=== PATIENT | female | born 1955 | race Caucasian/White ===

== ENCOUNTER 2017-09-07 16:58 | Emergency (ER) | payer MEDICARE, SELFPAY ==
[2017-09-07 16:59] VITALS: BP 137/86; PULSE 82; RESP 17; TEMP 36.4; O2SAT 94; BMI 21.7
--- NOTE | 2017-09-07 17:30 | CT_ITS ---
STUDY: CT ABDOMEN AND PELVIS WITH CONTRAST REASON FOR EXAM: Female, 62 years old. Right lower quadrant pain after lunch RADIATION DOSAGE (If Supplied By Facility): CTDIvol = ( 10.61 ) mGy, DLP = ( 365.23 ) mGycm TECHNIQUE: Transaxial images were obtained from the dome of the diaphragm to the symphysis pubis with oral contrast. 100 ml of Isovue 300 contrast was administered. Sagittal and coronal images were reconstructed. Individualized dose optimization techniques were used for this CT. COMPARISON: None. FINDINGS: The visualized lung bases are unremarkable. The visualized portions of the heart are within normal limits. Small nonenhancing cysts in the right lobe of the liver medially measuring 1.7 cm. Normal gallbladder and extrahepatic biliary system. Normal spleen. Normal pancreas. Normal bilateral adrenal glands. Normal right kidney. Normal left kidney. Normal visualized stomach. Normal small intestine. Normal colon. The appendix is visualized and appears normal. Normal abdominal aorta. Normal inferior vena cava. Normal retroperitoneum. Normal urinary bladder. Normal visualized uterus. Normal abdominal wall. There are diffuse degenerative changes of the visualized lumbar spine. CT/Abdomen/Pelvis WITH Contrast IMPRESSION: No acute findings. Normal appendix Electronically Signed: John Healy DO at 20:03 EDT Tel , Service support ,
--- NOTE | 2017-09-07 17:32 | ED.VISSUMM ---
- ER Visit Summary Date of Service: 09/07/17 Chief Complaint: Abdominal pain History of Present Illness: The patient is a 62 F presenting with right lower quadrant abdominal pain. Patient states this started earlier today and worsened throughout the day. She has had nausea with no vomiting. She has had diarrhea. She denies fever. She has had decreased appetite today. She states she has had remote similar complaints with ovarian cyst. Denies other complaints. Physical Examination: Vitals are stable. Patient is afebrile. Alert no acute distress. HEENT exam is unremarkable. Neck is supple. Lungs are clear and equal bilaterally. Heart is regular rate and rhythm. Abdomen is soft right lower quadrant tenderness with no rebound or guarding. Extremities are unremarkable. Skin is warm and dry. No focal neurologic deficit. Remainder of exam is unremarkable. Emergency Department Course and Treatment: Patient is given Dilaudid, Zofran with improvement. CBC, chemistries unremarkable. Liver lipase are normal. CT abdomen pelvis shows no acute process, normal appendix. Patient is resting comfortably in the emergency department. She is given a prescription for Bentyl. She is advised to follow-up with her primary care physician. She is advised return to ED for worsening complaints. Disposition: Discharge home Impression: Abdominal pain This note was generated with [employer] dictation software. It may contain incorrect words, spelling, and punctuation that were not noted in review of the chart prior to signing ED Disposition - Plan for ED Patient: Chief Complaint: Abd Pain Referrals: Danae Patel [NON-STAFF] -
[2017-09-07 17:48] LABS: Absolute Lymphocyte Count 1.92 X10^3/ul (0.83-4.51); Basophil# 0.04 X10^3/uL; Basophil% 0.7 % (0-1); Eosinophil# 0.12 X10^3/uL; Eosinophils% 2.2 % (0-5); Hematocrit 44.9 % (37-47); Hemoglobin 14.9 g/dl (12.0-15.0); Lymphocyte # 1.92 X10^3/ul (4.0); Mean Corp Hgb Conc 33.2 g/gl (32-36); Mean Corpuscular Hgb 30.2 pg (27.0-32.0); Mean Corpuscular Volume 90.9 fL (81-99); Mean Platelet Vol. 9.1 fl (6.2-12.0); Monocyte# 0.29 X10^3/uL; Monocyte% 5.4 % (0-10); Neutrophil # 2.97 X10^3/uL (2.7-7.7); Neutrophil % 55.7 % (47-70); POSITIVE COUNT NO; POSITIVE DIFFERENTIAL NO; POSITIVE MORPHOLOGY NO; Platelet Count 210 K/mm3 (150-450); RBC Distribution Width CV 13.5 % (11.6-14.6); RBC Distribution Width SD 44.6 fl (35.1-43.9); Red Blood Count 4.94 M/mm3 (4.2-5.4); White Blood Count 5.3 K/mm3 (4.4-11.0)
[2017-09-07] MEDS: HYDROmorphone 0.5 MG/0.5 ML SYRINGE IV (17:49)
[2017-09-07] MEDS: Ondansetron 4 MG/2 ML Vial IV (17:49)
[2017-09-07 18:09] LABS: ALB/GLOB Ratio 1.1 RATIO (0.9-2.4); AST(SGOT) 20 U/L (15-37); Alanine Aminotransfer ALT/SGPT 25 U/L (13-56); Albumin, Serum 3.7 g/dL (3.2-5.0); Alkaline Phosphatase 72 U/L (45-117); Anion Gap 7 (5-15); BUN 15 mg/dL (7-18); Calcium,Total 8.5 mg/dL (8.5-10.1); Chloride 110 mmol/L (98-107); EST Glomerular Filtration Rate 60 mL/min (>60); Est Glom Filt Rate - Afr Amer 73 mL/min (>60); Estimated Creatinine Clearance 60.35 ml/min; Globulin 3.5 g/dL (2.2-4.2); Glucose 90 mg/dL (74-106); Lipase 64 U/L (73-393); Potassium 4.2 mmol/L (3.5-5.1); Protein, Total 7.2 g/dL (6.4-8.2); Sodium Level 143 mmol/L (136-145)
[2017-09-07 18:10] LABS: Bacteria 0 SEEN /hpf (None Seen); Squamous Epithelial Cells - UA 0 SEEN /hpf (5-10)
[2017-09-07 18:12] LABS: Color, Urine Yellow (Yellow); Glucose, Dipstick Normal (Normal); Ketone-Dipstick 5 mg/dl (Negative); Leukocyte Esterase-Dipstick 25 /ul (Negative); Nitrite-Dipstick Negative (Negative); Occult Blood-Urine 150 /ul (Negative); Protein-Dipstick Negative (Negative); Specific Gravity, Urine 1.025 (1.002-1.030); Urine Bilirubin Dipstick Negative (Negative); Urine Clarity Clear (Clear); Urine Urobilinogen Normal (Normal)
[2017-09-07 18:23] LABS: Mucous, Urine 1+ /hpf (<or=2+)
[2017-09-07 18:24] LABS: Red Blood Cells-Urine 0-5 SEEN /hpf (0-5); White Blood Cells 0-5 SEEN /hpf (0-5)
[2017-09-07 19:45] VITALS: BP 154/89; PULSE 59; RESP 16
[2017-09-07 20:38] VITALS: BP 155/76; PULSE 56; RESP 16
--- NOTE | 2017-09-07 20:42 | ED.DEP ---
ED Disposition - Plan for ED Patient: Chief Complaint: Abd Pain Instructions: ED Abdominal Pain Unkn Cause Prescriptions: Dicyclomine HCl [Bentyl] 20 mg PO TIDAC #20 capsule Referrals: Danae Patel [NON-STAFF] -
[2017-09-07 21:09] VITALS: BP 126/62; PULSE 53; RESP 18
== END 2017-09-07 21:10 | disposition home or self-care (01) ==
PROVIDERS: Emergency Provider Emergency Medicine; Family Provider Nurse Practitioner Family; PCP Nurse Practitioner Family
DX: R10.9 Unspecified abdominal pain (principal); R19.7 Diarrhea, unspecified; R30.0 Dysuria; K21.9 Gastro-esophageal reflux disease without esophagitis; F41.9 Anxiety disorder, unspecified; Z72.0 Tobacco use; Z79.02 Long term (current) use of antithrombotics/antiplatelets; Z79.82 Long term (current) use of aspirin; Z79.899 Other long term (current) drug therapy; Z86.73 Personal history of transient ischemic attack (TIA), and cerebral infarction without residual deficits
CPT/HCPCS: 74177; 80053; 81001; 83690; 85025; 96374; 96375; 99283; Q9967; A4216; J2405

== ENCOUNTER 2017-09-22 13:24 | Emergency (ER) | payer MEDICARE, SELFPAY ==
[2017-09-22 13:24] VITALS: BP 148/82; PULSE 87; RESP 15; TEMP 36.3; O2SAT 96; BMI 22.4
[2017-09-22] MEDS: 0.9% Normal Saline 1,000 ML 125 ML IV (13:59)
[2017-09-22 14:06] LABS: Absolute Lymphocyte Count 1.55 X10^3/ul (0.83-4.51); Absolute Neutrophil Count 2.3 X10^3/uL (2.0-7.7); Basophil# 0.04 X10^3/uL; Eosinophil# 0.06 X10^3/uL; Eosinophils% 1.4 % (0-5); Hematocrit 44.5 % (37-47); Hemoglobin 15.4 g/dl (12.0-15.0); Lymphocyte # 1.55 X10^3/ul (4.0); Lymphocyte % 36.9 % (19-41); Mean Corp Hgb Conc 34.6 g/gl (32-36); Mean Corpuscular Hgb 31.2 pg (27.0-32.0); Mean Corpuscular Volume 90.1 fL (81-99); Mean Platelet Vol. 8.8 fl (6.2-12.0); Monocyte# 0.25 X10^3/uL; Neutrophil # 2.29 X10^3/uL (2.7-7.7); Neutrophil % 54.5 % (47-70); Platelet Count 206 K/mm3 (150-450); RBC Distribution Width CV 13.3 % (11.6-14.6); RBC Distribution Width SD 43.3 fl (35.1-43.9); Red Blood Count 4.94 M/mm3 (4.2-5.4); White Blood Count 4.2 K/mm3 (4.4-11.0)
[2017-09-22] MEDS: HYDROmorphone 1 MG/ML Syringe IV (14:07)
[2017-09-22] MEDS: Ondansetron 4 MG/2 ML Vial IV (14:07)
[2017-09-22 14:09] LABS: POSITIVE COUNT NO; POSITIVE DIFFERENTIAL NO; POSITIVE MORPHOLOGY NO
[2017-09-22 14:18] LABS: Mucous, Urine 0 SEEN /hpf (<or=2+)
[2017-09-22 14:20] LABS: BUN 14 mg/dL (7-18); Creatinine, Serum 0.96 mg/dL (0.55-1.02); Glucose 67 mg/dL (74-106)
[2017-09-22 14:21] LABS: ALB/GLOB Ratio 1.1 RATIO (0.9-2.4); AST(SGOT) 18 U/L (15-37); Alanine Aminotransfer ALT/SGPT 23 U/L (13-56); Albumin, Serum 3.6 g/dL (3.2-5.0); Alkaline Phosphatase 73 U/L (45-117); Anion Gap 4 (5-15); BUN/Creat Ratio 14.6 RATIO (10-20); Calcium,Total 8.5 mg/dL (8.5-10.1); Chloride 108 mmol/L (98-107); EST Glomerular Filtration Rate 63 mL/min (>60); Est Glom Filt Rate - Afr Amer 77 mL/min (>60); Globulin 3.4 g/dL (2.2-4.2); Potassium 3.7 mmol/L (3.5-5.1); Sodium Level 141 mmol/L (136-145)
[2017-09-22 14:28] LABS: Color, Urine Yellow (Yellow); Glucose, Dipstick Normal (Normal); Ketone-Dipstick Negative (Negative); Leukocyte Esterase-Dipstick 100 /ul (Negative); Nitrite-Dipstick Negative (Negative); Occult Blood-Urine 50 /ul (Negative); Protein-Dipstick Negative (Negative); Urine Bilirubin Dipstick Negative (Negative); Urine Clarity Sl. Cloudy (Clear); Urine Urobilinogen Normal (Normal); Urine pH 6.5 (5.0 - 8.0)
[2017-09-22 14:31] LABS: Lactic Acid 0.9 mmol/L (0.4-2.0)
[2017-09-22 14:44] LABS: Bacteria 1+ /hpf (None Seen); Red Blood Cells-Urine 0-5 SEEN /hpf (0-5); Squamous Epithelial Cells - UA 0-5 SEEN /hpf (5-10); White Blood Cells 10-25 SEEN /hpf (0-5)
--- NOTE | 2017-09-22 14:51 | US_ITS ---
STUDY: ULTRASOUND OF THE FEMALE PELVIS - COMPLETE REASON FOR EXAM: Female, 62 years old. Lower pelvic pain TECHNIQUE: Transabdominal and Transvaginal real-time examined with grayscale image documentation. TECHNICAL QUALITY: Adequate. COMPARISON: None. FINDINGS: The uterus is anteverted and is in a midline position. The uterus measures 6.1 x 4.9 x 2.3 cm. Normal uterine cervix. The endometrium measures 2 mm in thickness, and is hyperechoic. 1 small subendometrial calcification. There is no demonstrated myometrial mass. I.U.D. - The patient does not have an I.U.D. The right ovary is not visualized.. The left ovary is nonvisualized. There is no fluid in the cul-de-sac. The pre void volume of the bladder was 60 ml. US/Pelvic (Non ) IMPRESSION: Normal size of the uterus with a normal postmenopausal endometrium. One small subendometrial calcification. Otherwise normal uterus and cervix. Nonvisualized ovaries bilaterally. No adnexal masses. No free fluid. Unremarkable nondistended urinary bladder. Electronically Signed: Dede Toscano MD at 16:50 EDT , Service support ,
--- NOTE | 2017-09-22 16:04 | ED.VISSUMM ---
- ER Visit Summary Date of Service: 09/22/17 Chief Complaint: Abdominal pain] History of Present Illness: The patient is a 62 F [presents to the emergency department 2 week history of continuous abdominal pain. Patient rates her pain a 9 out of 10. Patient states the pain is right lower quadrant. Patient's had some intermittent diarrhea. Patient's had some nausea but no vomiting. Patient was seen in the emergency department on the 12th of this month and had lab workup including CT scan with IV and p.o. contrast and no etiology was found for her pain. Patient was started on Bentyl. Patient continues to have the same pain. Patient has had no prior abdominal surgeries. Physical Examination: [HEENT-PERRLA, EOMI. Cranial nerves II through XII grossly intact. TMs clear. Mucous membranes moist. No adenopathy. Cardiovascular-regular rate and rhythm without murmur or ectopy Lungs-clear to auscultation, chest wall stable without crepitus or subcu emphysema Abdomen-normoactive bowel sounds, soft. Patient has some mild tenderness over right lower quadrant with some guarding. There is no rebound, rigidity, or perineal signs. No masses palpated. Extremities-intact ?4, normal range of motion, normal pulses, atraumatic] Test Results: [CBC with differential obtained showed a white count of 4.2, hemoglobin 15, hematocrit 44, platelets 206. Chemistries unremarkable. Glucose was 67. Liver enzymes were normal. Lactate was normal at 0.9. Urinalysis showed 100 leukocyte esterase, 10-25 WBCs, +1 bacteria. Pelvic ultrasound pending.] Emergency Department Course and Treatment: [Patient was medicated with morphine and Zofran and had good pain relief with this. Pending pelvic ultrasound report] Treatment Plan: [Pending] Disposition: [Pending ] Impression: [Abdominal pain] This note was generated with [employer] dictation software. It may contain incorrect words, spelling, and punctuation that were not noted in review of the chart prior to signing ED Disposition - Plan for ED Patient: Chief Complaint: Abd Pain Referrals: Bridget Dsouza, JUAN CARLOS-C [Primary Care Provider] -
--- NOTE | 2017-09-22 16:09 | ED.DEP ---
ED Disposition - Plan for ED Patient: Chief Complaint: Abd Pain Instructions: ED Abdominal Pain Unkn Cause, ED UTI Cystitis Female Prescriptions: Oxycodone HCl/Acetaminophen [Percocet 5/325] 1 tab PO Q6H PRN PRN 3 Days #12 tab PRN Reason: Pain Smz/Tmp Ds [Bactrim Ds] 1 tab PO BID #6 tab Referrals: Bridget Dsouza, WELD FITTER-C [Primary Care Provider] - 3-5 Days
--- NOTE | 2017-09-22 16:12 | DCINST.ED_ITS ---
ED Disposition - Plan for ED Patient: Chief Complaint: Abd Pain Instructions: ED Abdominal Pain Unkn Cause, ED UTI Cystitis Female Prescriptions: Oxycodone HCl/Acetaminophen [Percocet 5/325] 1 tab PO Q6H PRN PRN 3 Days #12 tab PRN Reason: Pain Smz/Tmp Ds [Bactrim Ds] 1 tab PO BID #6 tab Referrals: Bridget Dsouza, FLOORWORKER-C [Primary Care Provider] - 3-5 Days
[2017-09-22 18:12] VITALS: PULSE 72; RESP 16; O2SAT 94
== END 2017-09-22 18:15 | disposition home or self-care (01) ==
PROVIDERS: Emergency Provider Emergency Medicine; Family Provider Nurse Practitioner Family; PCP Nurse Practitioner Family
DX: R10.31 Right lower quadrant pain (principal); R19.7 Diarrhea, unspecified; R11.0 Nausea; Z72.0 Tobacco use; Z79.02 Long term (current) use of antithrombotics/antiplatelets; Z79.82 Long term (current) use of aspirin; Z79.899 Other long term (current) drug therapy
CPT/HCPCS: 76856; 80053; 81001; 83605; 85025; 96361; 96374; 96375; 99283; J7030; J2405

== ENCOUNTER → 2017-09-27 08:25 | Outpatient (CLI) | payer MEDICARE, SELFPAY ==
--- NOTE | 2017-09-27 08:41 | US_ITS ---
STUDY: ABDOMINAL ULTRASOUND REASON FOR EXAM: Female, 62 years old. Lower abdominal pain TECHNIQUE: Transabdominal ultrasound was performed with real-time and static davila scale imaging. TECHNICAL QUALITY: Adequate. COMPARISON: CT 09/07/2017. FINDINGS: Liver: The liver measures 13.6 cm. There is normal echogenicity of the liver. The bile ducts are within normal limits. There is hepatic color flow. The direction of portal flow is hepatopetal. There is no demonstrated mass lesion. Portal vein measurement: Gallbladder: Normal distended gallbladder. The gallbladder wall measures 2.4 mm. There is a negative sonographic Gutierrez's sign. There is no pericholecystic fluid. There are no gallstones. Common Bile Duct (C.B.D.): The common bile duct measures 4.2 mm. Pancreas: Normal size of the head, body and tail of the pancreas. There is normal echogenicity of the pancreas. There is no demonstrated pancreatic mass or cyst. Spleen: Normal size of the spleen. The spleen measures 8.7 cm. Right Kidney: Normal size of the right kidney. The right kidney measures 10.0 x 4.6 x 3.1 cm. Normal renal cortex. The right cortex measures 1.2 cm. There is no demonstrated renal mass or cyst. There is no right hydronephrosis. Nonobstructing small renal stones measuring up to 3 mm. Left Kidney: Normal size of the left kidney. The left kidney measures 10.3 x 4.2 x 4.2 cm. Normal renal cortex. The left cortex measures 1.3 cm. There is no demonstrated renal mass. Parapelvic renal cysts measuring up to 1.4 cm. There is no left hydronephrosis. Nonobstructing renal stones measuring up to 4 mm. Aorta: No aneurysm. Mild vascular changes. I.V.C.: The IVC is patent. There is no ascites. Bladder is unremarkable. US/Abdomen Complete IMPRESSION: No gallstones. Nephrolithiasis. No hydronephrosis. Electronically Signed: Jeffy Samuel DO at 23:24 EDT , Service support ,
--- NOTE | 2017-09-27 08:41 | US_ITS ---
STUDY: ULTRASOUND OF THE FEMALE PELVIS - COMPLETE REASON FOR EXAM: Female, 62 years old. Lower abdominal pain, postmenopausal LMP: TECHNIQUE: Transabdominal and Transvaginal TECHNICAL QUALITY: Adequate. COMPARISON: July 25, 2018. FINDINGS: The uterus is anteverted and is in a midline position. The uterus measures 6.4 x 4.3 x 2.0 cm. Normal uterine cervix. The endometrium measures 3 mm in thickness, and is hyperechoic. There is an echogenic 2 mm endometrial calcification. There is no demonstrated endometrial mass. There is no demonstrated myometrial mass. I.U.D. - The patient does not have an I.U.D. The right ovary is visualized. The right ovary measures 2.3 x 1.6 x 1.0 cm. There is no right ovarian cyst or ovarian mass. There is no visualized right adnexal mass or complex lesion. There is normal arterial and normal venous vascularity. The left ovary is visualized. The left ovary measures 1.8 x 1.5 x 1.2 cm. There is no left ovarian cyst or ovarian mass. There is no visualized left adnexal mass or complex lesion. There is normal arterial and normal venous vascularity. There is no fluid in the cul-de-sac. The bladder is unremarkable. Polycystic ovary disease: No. US/Pelvic (Non ) IMPRESSION: Normal female pelvis. Electronically Signed: Jeffy Samuel DO at 23:44 EDT , Service support ,
--- NOTE | 2017-09-27 08:41 | US_ITS ---
STUDY: ULTRASOUND OF THE FEMALE PELVIS - COMPLETE REASON FOR EXAM: Female, 62 years old. Lower abdominal pain, postmenopausal LMP: TECHNIQUE: Transabdominal and Transvaginal TECHNICAL QUALITY: Adequate. COMPARISON: July 25, 2018. FINDINGS: The uterus is anteverted and is in a midline position. The uterus measures 6.4 x 4.3 x 2.0 cm. Normal uterine cervix. The endometrium measures 3 mm in thickness, and is hyperechoic. There is an echogenic 2 mm endometrial calcification. There is no demonstrated endometrial mass. There is no demonstrated myometrial mass. I.U.D. - The patient does not have an I.U.D. The right ovary is visualized. The right ovary measures 2.3 x 1.6 x 1.0 cm. There is no right ovarian cyst or ovarian mass. There is no visualized right adnexal mass or complex lesion. There is normal arterial and normal venous vascularity. The left ovary is visualized. The left ovary measures 1.8 x 1.5 x 1.2 cm. There is no left ovarian cyst or ovarian mass. There is no visualized left adnexal mass or complex lesion. There is normal arterial and normal venous vascularity. There is no fluid in the cul-de-sac. The bladder is unremarkable. Polycystic ovary disease: No. US/Transvaginal Non- IMPRESSION: Normal female pelvis. Electronically Signed: Jeffy Samuel DO at 23:44 EDT , Service support ,
== END ==
DX: R10.30 Lower abdominal pain, unspecified (principal)
CPT/HCPCS: 76700; 76830; 76856

== ENCOUNTER 2017-10-03 08:22 | Day surgery (SDC) | payer MEDICARE, SELFPAY ==
[2017-10-03] VITALS (7 sets, daily range): BP systolic 96–131; BP diastolic 51–74; PULSE 57–68; RESP 16–18; TEMP 36–36.2; O2SAT 96–100; BMI 22.5
--- NOTE | 2017-10-03 10:12 | COLBX_PTH ---
PATIENT: AUBRIE GREEN LOC: EN U#:[id number] AGE/SX: 62/F ROOM: RE10/03/[address]: Dr. Sergio Domínguez MD : [id number] BED: DIS: 10/03/2017 SPEC #: [id number] RECD: 10/03/17 11:55 STATUS: KEELY ISIDRO #: [id number] CESILIA: 10/03/17 10:[address]: Sergio Domínguez DEPT: SURGICAL PATHOLOGY RECD BY: Coy Colindres ENTERED: 10/03/17 12:57 SP TYPE: COLON BX OTHR DR: [facility] Tissues: Rectum, NOS Procedures: Surgery Specimen Level IV HEADER OPERATION: Colonoscopy PRE-OP DIAGNOSIS: Constipation TISSUE SUBMITTED: Rectal polyp MICROSCOPIC DIAGNOSIS Rectal polyp, biopsy: Hyperplastic polyp. SJ:tenzin 10/04/17 MICROSCOPIC DESCRIPTION Slides are reviewed. GROSS DESCRIPTION Received in fixative is one container labeled with the patient's name and designated rectal polyp. The specimen consists of one irregular fragment of light otero soft tissue that measures 0.3 x 0.2 x 0.1 cm. The specimen is totally submitted in one cassette. / SJ:tenzin 10/03/17 TC:1 CPT: 41532
--- NOTE | 2017-10-03 10:18 | PCM.OPRPT ---
Problem List (1) Constipation Status: Acute Qualifiers: Constipation type: unspecified constipation type Qualified Code(s): K59.00 - Constipation, unspecified Report of Operation Date of Procedure: 10/03/17 Pre-Operative Diagnosis: Constipation change in bowel habits Post-Operative Diagnosis: Rectal polyp Surgery/Procedure Performed:: Colonoscopy with snare polypectomy Description of Procedure: The major risks and benefits associated with the procedure were explained to the patient in detail. The patient verbalized understanding and agreement with the same. The patient was brought to the endoscopy suite. After adequate sedation was achieved, the patient was placed in the left lateral decubitus position and a digital rectal exam was performed. This examination was within normal limits. A well-lubricated colonoscope was then inserted into the rectum and advanced under direct visualization to the level of the cecum. The bowel prep was fair. The cecum was identified by both visual and anatomic landmarks. A photograph was taken of the end of the cecum. The scope was then fully withdrawn while examining the color, texture, anatomy and integrity of the mucosa from the cecum to the anal canal. The findings were consistent with normal colonic mucosa. Bowel prep was fair throughout the colon. There was a lot of liquid stool coating the colon wall. Polyps under 5 mm may have been missed. I wash the jefferson of the colon as well as I could. The patient did have a small polyp in the rectum which was removed with cautery snare. Over 6 minutes were taken to examine the colonic mucosa. Upon reaching the rectum the scope was retroflexed to examine the distal rectal vault. The scope was then straightened and was completely retrieved upon exiting the anal canal and the procedure was terminated. The patient was then transferred to the recovery room in stable condition. Recommendations for follow up: Dependent on pathology. There were no mass lesions in the colon causing her constipation. Recommend medical treatment of constipation.
== END 2017-10-03 11:14 | disposition home or self-care (01) ==
LOC: EN 08:23 → AC 08:25
PROVIDERS: Visit Provider Surgery
PROC: 0DJD8ZZ Inspection of Lower Intestinal Tract, Via Natural or Artificial Opening Endoscopic (ICD-10-PCS; CPT 45378; principal; 2017-10-03 09:25)
DX: K62.1 Rectal polyp (principal); K59.00 Constipation, unspecified; I25.10 Atherosclerotic heart disease of native coronary artery without angina pectoris; J44.9 Chronic obstructive pulmonary disease, unspecified; E78.00 Pure hypercholesterolemia, unspecified; K21.9 Gastro-esophageal reflux disease without esophagitis; F32.9 Major depressive disorder, single episode, unspecified; F41.9 Anxiety disorder, unspecified; F17.200 Nicotine dependence, unspecified, uncomplicated; Z78.0 Asymptomatic menopausal state; Z79.02 Long term (current) use of antithrombotics/antiplatelets; Z79.899 Other long term (current) drug therapy; I25.2 Old myocardial infarction; Z87.19 Personal history of other diseases of the digestive system; Z86.73 Personal history of transient ischemic attack (TIA), and cerebral infarction without residual deficits
CPT/HCPCS: 45385; 88305; J7120

== ENCOUNTER 2017-11-10 16:04 | Emergency (ER) | payer MEDICARE, SELFPAY ==
[2017-11-10 16:05] VITALS: BP 138/77; PULSE 80; RESP 14; TEMP 37; O2SAT 97; BMI 22.4
--- NOTE | 2017-11-10 16:14 | ED.DCSUM_ITS ---
- ER Visit Summary Date of Service: 11/10/17 Chief Complaint: Injury right right toe History of Present Illness: The patient is a 62 F who presents with injury to nail of right great toe. She states her granddaughter stepped on a. She has deformity of that toenail secondary to injury 36 years ago. The toenail is partially avulsed. She denies any paresthesia, anesthesia motors. She does report bruising easily secondary to Plavix. She is on Plavix secondary to stroke. She is a smoker. Physical Examination: There is partial avulsion of the nail right great toe. The nail is deformed and will require removal. Test Results: None Emergency Department Course and Treatment: The toe was anesthetized by digital block. The toenail was removed. Treatment Plan: Dressing to right great toe and appropriate home-going instructions Disposition: Discharged to home Impression: Removal of nail right great toe This note was generated with [employer] dictation software. It may contain incorrect words, spelling, and punctuation that were not noted in review of the chart prior to signing ED Disposition - Plan for ED Patient: Disposition: Home or Assisted Living Chief Complaint: Lower Extremity Injury Instructions: ED Removal Nail Referrals: Danae Subramanian [Primary Care Provider] - 2 Days for wound check
== END 2017-11-10 16:50 | disposition home or self-care (01) ==
LOC: ED 16:44
PROVIDERS: Emergency Provider Emergency Medicine
DX: S91.201A Unspecified open wound of right great toe with damage to nail, initial encounter (principal); X58.XXXA Exposure to other specified factors, initial encounter; Y93.9 Activity, unspecified; Y92.9 Unspecified place or not applicable; Y99.9 Unspecified external cause status; F17.200 Nicotine dependence, unspecified, uncomplicated; Z79.02 Long term (current) use of antithrombotics/antiplatelets; Z79.899 Other long term (current) drug therapy; Z86.73 Personal history of transient ischemic attack (TIA), and cerebral infarction without residual deficits
CPT/HCPCS: 11750; 99284

== ENCOUNTER 2018-04-02 11:11 | Observation (INO) | payer MEDICARE, SELFPAY ==
[2018-04-02] VITALS (9 sets, daily range): BP systolic 122–136; BP diastolic 64–95; PULSE 55–91; RESP 12–24; TEMP 37.1–37.2; O2SAT 94–99; BMI 21.6; BMI 22.5; BMI 22.4
--- NOTE | 2018-04-02 11:16 | CT_ITS ---
STUDY: CT BRAIN WITHOUT CONTRAST REASON FOR EXAM: Female, 62 years old. Headache with blurred vision RADIATION DOSAGE (If Supplied By Facility): CTDIvol = ( 44.99 ) mGy, DLP = ( 745.49 ) mGycm TECHNIQUE: Transaxial CT imaging of the brain was performed without administration of intravenous contrast material. Individualized dose optimization techniques were used for this CT. COMPARISON: None. FINDINGS: Normal soft tissue structures. Normal calvarium. There is mild cerebral atrophy with widening of the extra-axial spaces and ventricular dilatation. Normal white matter tracts of the cerebral hemispheres. Normal basal ganglia and thalami. Normal brainstem. Normal cerebellum. There is no intracranial hemorrhage. There are no findings of an acute ischemic infarction. Normal visualized paranasal sinuses. CT/Brain/Head without Contrast IMPRESSION: Normal unenhanced CT scan of the brain. Electronically Signed: John Healy DO at 11:40 EST Tel , Service support ,
--- NOTE | 2018-04-02 11:17 | EKG12_ITS ---
Test Reason : NEURO Blood Pressure : / mmHG Vent. Rate : 068 BPM Atrial Rate : 068 BPM P-R Int : 164 ms QRS Dur : 086 ms QT Int : 414 ms P-R-T Axes : 080 080 077 degrees QTc Int : 440 ms Normal sinus rhythm Septal infarct , age undetermined Abnormal ECG Confirmed by MEL SHERMAN, CHAPIN ([id number]), photo editor YESSY HAYS ([id number]) on 04/05/2018 3:38:47 PM Referred By: NOAH Confirmed By:CHAPIN LEAL MD
--- NOTE | 2018-04-02 11:19 | ED.RN ---
DISCUSSED SITUATION WITH DR ZAMORA REGARDING PTS PRESENTATION TO ER. HEAD CT SCAN ORDERED PER VO. RN PROTOCOL ORDERS ENTERED.
--- NOTE | 2018-04-02 11:22 | ED.RN ---
DISCUSSED WITH DR ZAMORA CALLING STROKE TEAM ON PT. NO STROKE TEAM AT THIS TIME BASED ON RT HAND WEAKNESS STARTING YEST.
--- NOTE | 2018-04-02 11:25 | RAD_ITS ---
STUDY: X-RAY CHEST REASON FOR EXAM: Female, 62 years old. Frontal headache within the last hour TECHNIQUE: PA and lateral views of the chest. COMPARISON: 05/11/2017 FINDINGS: There is hyperinflation of the lungs consistent with chronic obstructive lung disease (COPD). Lungs are clear. There is no demonstrated pleural abnormality. Normal size heart. Normal mediastinum and omero. Normal visualized pulmonary arteries. Normal visualized aortic arch and descending thoracic aorta. Normal visualized thoracic spine. Normal visualized ribs, clavicles, and shoulders. There is no demonstrated abnormality of the visualized soft tissue structures of the upper abdomen. RAD/Chest PA and Lateral IMPRESSION: COPD without acute findings. Electronically Signed: John Healy DO at 11:43 EST Tel , Service support ,
[2018-04-02 12:16] LABS: Hematocrit 44.8 % (37-47); Hemoglobin 14.7 g/dl (12.0-15.0); Mean Corp Hgb Conc 32.8 g/gl (32-36); Mean Corpuscular Hgb 30.2 pg (27.0-32.0); Mean Platelet Vol. 8.9 fl (6.2-12.0); Platelet Count 201 K/mm3 (150-450); RBC Distribution Width CV 13.4 % (11.6-14.6); RBC Distribution Width SD 44.4 fl (35.1-43.9); Red Blood Count 4.87 M/mm3 (4.2-5.4); White Blood Count 4.4 K/mm3 (4.4-11.0)
[2018-04-02] MEDS: 0.9% Normal Saline 1,000 ML 50 ML IV (12:16)
[2018-04-02 12:17] LABS: Absolute Lymphocyte Count 1.28 X10^3/ul (0.83-4.51); Absolute Neutrophil Count 2.7 X10^3/uL (2.0-7.7); Basophil# 0.04 X10^3/uL; Basophil% 0.9 % (0-1); Eosinophil# 0.09 X10^3/uL; Eosinophils% 2.1 % (0-5); Lymphocyte # 1.28 X10^3/ul (4.0); Lymphocyte % 29.2 % (19-41); Monocyte# 0.25 X10^3/uL; Monocyte% 5.7 % (0-10); Neutrophil # 2.73 X10^3/uL (2.7-7.7); Neutrophil % 62.1 % (47-70)
[2018-04-02 12:20] LABS: Bedside Glucose 103 mg/dL (70-110)
[2018-04-02 12:23] LABS: POSITIVE COUNT NO; POSITIVE DIFFERENTIAL NO; POSITIVE MORPHOLOGY NO
[2018-04-02 12:27] LABS: Anion Gap 4 (5-15); BUN 16 mg/dL (7-18); BUN/Creat Ratio 17.1 RATIO (10-20); Calcium,Total 8.7 mg/dL (8.5-10.1); Chloride 109 mmol/L (98-107); Creatinine, Serum 0.94 mg/dL (0.55-1.02); EST Glomerular Filtration Rate 65 mL/min (>60); Est Glom Filt Rate - Afr Amer 78 mL/min (>60); Estimated Creatinine Clearance 59.58 ml/min; Glucose 85 mg/dL (74-106); Potassium 3.8 mmol/L (3.5-5.1); Sodium Level 142 mmol/L (136-145)
[2018-04-02 12:32] LABS: International Normalized Ratio 0.9; Prothrombin Time (Protime)PT. 12.5 SECONDS (11.7-14.9)
[2018-04-02 12:33] LABS: Partial Thromboplast Time 32.5 Seconds (24.1-36.2)
--- NOTE | 2018-04-02 12:47 | ED.VISSUMM ---
- ER Visit Summary Date of Service: 04/02/18 Chief Complaint: [Possible stroke] History of Present Illness: The patient is a 62 F [presents the emergency department with complaint of concern over possibility of stroke. Patient states that last evening around 10 PM she was sitting watching TV when she started having weakness in the right side including her arm and leg. Patient also describes some blurred vision in the right eye. Patient went to bed when she woke up she had a headache on the right side and continued to have weakness in her right arm and leg and she feels like she is dragging her right leg. Patient denies any difficulty with speech or vision currently. Patient does have a history of prior strokes. Patient is on Plavix.] Physical Examination: [HEENT-PERRLA, EOMI. Cranial nerves II through XII grossly intact. TMs clear. Mucous membranes moist. No adenopathy. Cardiovascular-regular rate and rhythm without murmur or ectopy Lungs-clear to auscultation, chest wall stable without crepitus or subcu emphysema Abdomen-normoactive bowel sounds, soft, nontender, no rebound or rigidity, no peritoneal signs. Neuro hpww-[id number]-[id number] and heel holley testing within normal limits, negative Romberg, negative , Fundi benign. NIH stroke scale was a 2 here for some very subtle weakness related to the right upper extremity and right lower extremity when compared with the opposite side. Extremities-intact ?4, normal range of motion, normal pulses, atraumatic] Test Results: [EKG obtained arrival shows sinus rhythm with a ventricular rate of 68 bpm with old septal infarct noted. CBC with differential was normal. Chemistries unremarkable. INR was 0.9. CT scan of the brain without contrast was normal. Chest x-ray obtained showed COPD otherwise nothing acute.] Emergency Department Course and Treatment: [Patient is not a thrombolytic candidate as her symptoms started greater than 13 hours ago. Also NIH stroke scale is only a 2 at this time.] Treatment Plan: [Admit for further workup and evaluation.] Disposition: [Admit] Impression: [CVA] This note was generated with [employer] dictation software. It may contain incorrect words, spelling, and punctuation that were not noted in review of the chart prior to signing ED Disposition - Plan for ED Patient: Chief Complaint: Neuro S/Sx Referrals: Danae Subramanian [Primary Care Provider] -
--- NOTE | 2018-04-02 13:51 | MRI_ITS ---
STUDY: MRA NECK WITH AND WITHOUT CONTRAST REASON FOR EXAM: Female, 62 years old. Stroke TECHNIQUE: 3-D bffl-wa-norbiz (TOF) imaging was performed in an 1.5 T MRI scanner. 7 ml of Gadavist was administered for the contrast enhanced images. COMPARISON: None. FINDINGS: RIGHT CAROTID ARTERIES: Normal right common carotid artery (CCA). Normal right common carotid bulb. Normal origin of the right internal carotid (ICA) artery without a hemodynamically significant stenosis. Normal visualized cervical portion of the right internal carotid artery. Normal origin of the right external carotid artery (ECA). LEFT CAROTID ARTERIES: Normal left common carotid artery (CCA). Normal left common carotid bulb. Normal origin of the left internal carotid (ICA) artery without a hemodynamically significant stenosis. Normal visualized cervical portion of the left internal carotid artery. Normal origin of the left external carotid artery (ECA). VERTEBRAL ARTERIES: Normal antegrade flow within the bilateral vertebral artery without a hemodynamically significant stenosis. MRI/MRA Neck WITH and W/O Contrast IMPRESSION: Normal bilateral cervical carotid and vertebral arteries. Electronically Signed: Jayden Hernandez MD at 16:34 EST , Service support ,
--- NOTE | 2018-04-02 13:51 | MRI_ITS ---
STUDY: MRA OF THE HEAD WITHOUT CONTRAST REASON FOR EXAM: Female, 62 years old. Right-sided weakness and blurred vision TECHNIQUE: 3-D yjmu-wa-heqxlp (TOF) imaging was performed with MIPs. The study was performed unenhanced. COMPARISON: None. FINDINGS: Normal bilateral petrous carotid arteries. Normal right cavernous carotid artery with a normal supraclinoid bifurcation. Normal left cavernous carotid artery with a normal supraclinoid bifurcation. Normal right A1 segments of the anterior cerebral artery. Normal left A1 segments of the anterior cerebral artery. Anterior communicating artery not visualized consistent with developmental variant. Normal bilateral A2 segments of the anterior cerebral arteries. Normal right M1 and M2 segments of the middle cerebral arteries, with a normal M1 bifurcation. Normal left M1 and M2 segments of the middle cerebral arteries, with a normal M1 bifurcation. Posterior communicating artery not visualized consistent with normal variant Left vertebral is dominant and normal caliber. The right vertebral is diffusely narrowed which may be normal developmental variant. Normal basilar artery with a normal basilar bifurcation. The visualized bilateral superior cerebellar (SCA) arteries are normal. Normal bilateral P1, P2 and visualized P3 segments of the posterior cerebral arteries. There is no demonstrated aneurysm of the [place]. There is no major vessel occlusion or hemodynamically significant stenosis. There is no demonstrated abnormality of the visualized brain. MRI/MRA Head ONLY without Contrast IMPRESSION: Normal MRA of the head Electronically Signed: Jayden Hernandez MD at 16:18 EST , Service support ,
--- NOTE | 2018-04-02 13:51 | MRI_ITS ---
STUDY: MRI BRAIN WITHOUT CONTRAST REASON FOR EXAM: Female, 62 years old. Right-sided weakness TECHNIQUE: Standardized multiplanar fat and water weighted pulse sequences were obtained. COMPARISON: CT of the brain on April 02, 2018 FINDINGS: Normal size of the ventricles and extra-axial spaces for the patient's age. There are a few small punctate white matter lesions without mass effect or restricted diffusion.. Normal bilateral basal ganglia. Normal thalami. There is no extra-axial fluid accumulation. Normal flow voids within the major intracranial circulation suggesting patency by spin echo criteria. Normal sella turcica, pituitary gland, infundibular stalk, optic chiasm and hypothalamus. Normal tectal plate and pineal gland. Normal midbrain, eusebia and medulla. Normal cerebellum. Normal basal cisterns. Normal bilateral temporal bones. Normal bilateral internal auditory canals. There are postsurgical changes of the orbits. Normal visualized paranasal sinuses. Normal calvarium and skull base. Normal visualized soft tissue structures. Normal visualized upper cervical spine. MRI/Brain without Contrast IMPRESSION: Minor periventricular white matter ischemic changes. No evidence for acute infarct. Electronically Signed: Jayden Hernandez MD at 16:10 EST , Service support ,
--- NOTE | 2018-04-02 14:38 | PCM.HP.STD ---
Problem List (1) Right sided weakness Status: Acute (2) Subjective visual disturbance, right eye Status: Acute History of Present Illness Date of Admission: 04/02/18 Chief Complaint: Right-sided weakness, right eye visual disturbance The patient is a 62 year old F who was seen in the emergency room at [facility] with a chief complaint of right sided weakness since approximately 9 PM last night. Patient denies any speech disturbance but she does state that her right eye vision is slightly blurry intermittently. Patient denies any left-sided weakness, patient does states she is able to ambulate. Patient gives a history of a stroke in the past-previous MRIs that were done on the patient at this facility however do not show any evidence of stroke. Patient currently takes Plavix but not aspirin. Patient smokes about a half a pack of cigarettes a day. Workup in the emergency room included a CT of the brain which was unremarkable, patient's chest x-ray showed no acute process, patient's lab was unremarkable. NIH stroke score was 2 in the emergency room. Patient complained of a slight headache to the emergency room physician today but did not mention it to this examiner today. Will be placed and observation status on PCU, she will have an MRA of her head and neck performed and an MRI of the brain performed, NIH stroke scores will be monitored, she will be seen by PT and OT, we will continue Plavix. Patient's medical record was reviewed from April 2017, it was noted at that time that the patient complained of chronic right-sided deficits from a CVA in 2011, review of her MRI in 2012 shows no evidence of stroke however. In interviewing the patient today, she did not mention that she had chronic right-sided deficits. It was also noted in February 2013 that the patient was seen in the hospital by neurology who noted that the patient had admissions in November and March 2012 and in July 2012 for symptoms of right monocular blurred vision, right-sided tingling and weakness, and cephalgia-the conclusion at that time was that the patient had a conversion disorder and there was no evidence of any cerebrovascular disease. Neurology mentioned at that time that the patient could have a migraine cephalgia with complex symptomology. They recommended the use of Depakote, the patient is not currently on Depakote. For now, it appears that the patient will undergo another extensive workup which I feel is probably going to be negative for acute CVA. Past Medical History Past Medical History (Chronic Problems): Chronic Problems (Last Updated 04/02/18 @ 14:59 by Joey Ibanez DO) CAD (coronary artery disease) (Chronic) History of cerebrovascular disease (Chronic) History of CVA (cerebrovascular accident) (Chronic) Anxiety disorder (Chronic) Medical History: Medical History (Last Updated 04/02/18 @ 14:59 by Joey Ibanez DO) Chest pain (Resolved) R07.9 CAD (coronary artery disease) (Chronic) I25.10 Hypoxia (Resolved) R09.02 Diaphragm paralysis (Resolved) History of cerebrovascular disease (Chronic) Z86.79 History of CVA (cerebrovascular accident) (Chronic) Z86.73 Anxiety disorder (Chronic) F41.9 Abdominal pain R10.9 Allergies hydrocodone bitartrate [From Vicodin] Allergy (Verified 04/02/18 11:15) HALLUCINATES HALLUCINATES fish derived Adverse Reaction (Verified 04/02/18 11:15) Anaphylaxis morphine Adverse Reaction (Verified 04/02/18 11:15) HALLUCINATES HALLUCINATES Home Medications: Ambulatory Orders Medication Instructions Recorded Clopidogrel Bisulfate [Plavix] 75 mg PO DAILY 03/03/13 Cetirizine HCl [Zyrtec] 10 mg PO DAILY 03/10/13 Albuterol Inhaler [Ventolin Hfa] 1 puff INHALATION Q4H PRN PRN 05/11/17 Citalopram [Celexa] 10 mg PO DAILY 05/11/17 Ranitidine HCl 150 mg PO DAILY 05/11/17 fluticasone 50 mcg/actuation nasal 1 spray INTRANASAL QDAY 09/26/17 spray,suspension Atorvastatin Calcium [Lipitor] 10 mg PO QHS 09/29/17 Cholecalciferol (Vitamin D3) 1 tab PO DAILY 11/10/17 [Vitamin D3] Surgical History: Surgical History (Last Updated 09/26/17 @ 13:47 by Yulissa Rachel) History bilateral cataract surgery History left shoulder surgery History of tubal ligation Z98.51 Surgical History: cataract - Bilateral, - - Left shoulder surgery for frozen shoulder. 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 Lives: Alone Smoking Status: Current every day smoker Tobacco Use: Cigarettes Alcohol: None Drugs: None - *Family History Paternal Family History: Family History (Last Updated 09/26/17 @ 13:52 by Yulissa Rachel) Mother Diabetes Heart disease Hypertension High cholesterol Father Heart disease Hypertension High cholesterol CVA (cerebral vascular accident) History Items: No pertinent history Maternal Family History: Family History (Last Updated 09/26/17 @ 13:52 by Yulissa Rachel) Mother Diabetes Heart disease Hypertension High cholesterol Father Heart disease Hypertension High cholesterol CVA (cerebral vascular accident) Review of Systems Constitutional: Reports: Weakness - Right-sided weakness. Denies: Anorexia, Chills, Fever, Night Sweats, Malaise, Weight Change, Fatigue Eyes: Reports: Blurred vision - Remittent right eye blurred vision. Denies: Conjunctivae Inflammation, Double vision, Drainage, Redness HEENT: Reports: Head Aches. Denies: Difficulty Hearing, Difficulty Swallowing, Dysphasia, Ear Pain, Eye Pain, Hearing Changes, Nasal bleeding, Nasal Congestion, Post Nasal Drip Cardiovascular: Denies: Chest Pain, Claudication, Chest Pressure, Chest Tightness, Edema, Heaviness, Orthopnea, Palpitations, Paroxysmal Noc. Dyspnea Respiratory: Denies: Cough, Hemoptysis, Pleuritic Pain, Shortness of Breath, Shortness of breath at rest, Shortness of breath upon exertion Gastrointestinal: Denies: Abdominal Pain, Constipation, Diarrhea, Hematemesis, Hematochezia, Nausea, Melena, Vomiting Genitourinary: Denies: Dysuria, Frequency, Hematuria, Hesitancy, Urgency Gynecological: Denies: Breast symptoms Musculoskeletal: Denies: Back Pain, Foot Pain, Hand Pain, Joint Pain, Joint stiffness, Joint swelling, Joint Tenderness, Leg Pain Skin: Denies: Dryness, Jaundice, Pruritis, Rash Neurological: Reports: Blurred vision, Focal weakness - Right-sided weakness. Denies: Double vision, Change in Speech, Slurred speech, Difficulty swallowing, Incoordination, Numbness, Tingling, Tremor, Seizures Psychiatric: Reports: Anxiety. Denies: Depression, Homicidal Ideations, Suicidal Ideations Endocrine: Denies: Change in Body Habitus, Heat/ Cold Intolerance, Polydipsia, Polyuria Hematologic/ Lymphatic: Denies: Adenopathy, Anemia, Easy Bruising, Easy Bleeding, Petechiae, Purpura VTE Information - Inpt Only VTE Present on Admission: No VTE Mechan Device Prophylaxis: None VTE Pharm Prophylaxis ordered?: No Reason prophylaxis not ordered:: Treatment Not Indicated Patient Problems: Active and Suspected Problems (Last Updated 04/02/18 @ 14:59 by Joey Ibanez DO) Right sided weakness (Acute) Subjective visual disturbance, right eye (Acute) - Physical Exam General: Alert, Oriented x3, Cooperative, No apparent distress, Well developed, Well nourished HEENT: Atraumatic, PERRLA, EOMI, Normocephalic Oral: Moist Mucosa Neck: Supple, No JVD, Negative Carotid Bruits, No Nuchal Rigidity, Trachea Midline, Thyroid Normal Size and Texture Lungs: Clear to auscultation, Normal air movement, No rhonchi, No wheeze, No rales Cardiovascular: Regular rate, Regular Rhythm, Normal S1, Normal S2, No murmurs, No Ectopic Activity, PMI Normal, No rub noted, No Gallop Abdomen: Bowel Sounds Present, Soft, Non Tender, Non-Distended, No hernias noted Extremities: No edema, Capillary Refill Less than 3 Seconds Skin: No rashes, No breakdown Musculoskeletal: No Tenderness to Palpation of Joints or Extremities Neurological: Cranial nerves II-XII grossly intact, Neuro grossly intact, Muscle tone normal, Sensory exam intact to light touch and pain, Coordination normal Psych/Mental Status: Normal Affect, Appropriate, Alert and oriented to time, place, person, mood and affect Vital Signs Temp Pulse Resp BP Pulse Ox 98.9 F 55 L 16 133/78 H 98 04/02/18 13:54 04/02/18 13:54 04/02/18 13:54 04/02/18 13:54 04/02/18 13:54 Oxygen Delivery Method Room Air Weight: 63.1 kg Body Mass Index (BMI) 22.4 Finger Stick Blood Glucose 103 Laboratory Tests Past 24 Hrs 04/02/18 04/02/18 04/02/18 12:05 12:05 12:05 WBC 4.4 RBC 4.87 Hgb 14.7 Hct 44.8 MCV 92.0 MCH 30.2 MCHC 32.8 RDW 13.4 RDW Differential 44.4 H Plt Count 201 MPV 8.9 Immature Gran % (Auto) 0.000 Neut % (Auto) 62.1 Lymph % (Auto) 29.2 Donley % (Auto) 5.7 Eos % (Auto) 2.1 Baso % (Auto) 0.9 Absolute Neuts (auto) 2.7 Absolute Lymphs (auto) 1.28 Total Counted Not Reportable PT 12.5 INR 0.9 APTT 32.5 Sodium 142 Potassium 3.8 Chloride 109 H Carbon Dioxide 29.0 Anion Gap 4 L BUN 16 Creatinine 0.94 Estim Creat Clear Calc 59.58 Est GFR (MDRD) Af Amer 78 Est GFR (MDRD) Non-Af 65 BUN/Creatinine Ratio 17.1 Glucose 85 Calcium 8.7 POC Glucose 04/02/18 12:11 POC Glucose 103 Assessment/Plan All Active Problems (Last Updated 04/02/18 @ 14:59 by Joey Ibanez, DO) Constipation (Resolved) Right sided weakness (Acute) Subjective visual disturbance, right eye (Acute) Chest pain (Resolved) Hypoxia (Resolved) Diaphragm paralysis (Resolved) #1 right-sided weakness-etiology unclear, it appears that the patient has complained multiple times in the past of similar symptoms and has been worked up for cerebrovascular disease without this examiner detecting any abnormalities on her old CT scans or MRIs. Patient will be placed into observation status on PCU, NIH stroke scores will be continued until results of her MRI and MRA of the head and neck are completed. Patient will be seen by PT and OT, she will be kept on Plavix for now #2 right eye blurred vision-again etiology of this is unknown, again it appears according to her old medical record that the patient has complained of similar symptoms in the past, neurology has noted this in a consultation several years ago and felt that the patient probably had a conversion reaction or a complex migraine. #3 hyperlipidemia-patient is currently taking Lipitor #4 anxiety disorder-patient is on Celexa #5 past history of coronary artery disease-I could not substantiate this for many testing in her medical record, patient has had 2 echocardiograms done in the past as well as a nuclear stress test performed in 2017-all of which were unremarkable. I will have to ask the patient about this history of atherosclerotic heart disease. Code Visit OBSV E&M: 20033 Initial observation care L3
--- NOTE | 2018-04-02 17:14 | DCINST_ITS ---
- Discharge Diagnoses Current Active Problems: Current Active and Chronic Problems (Last Updated 04/02/18 @ 14:59 by Joey Ibanez DO) Right sided weakness (Acute) Subjective visual disturbance, right eye (Acute) You will use the following diet at home:: No restrictions Your food should be the consistency of: Regular Your liquids should be the consistency of: Regular/Thin Discharge Activity: Return to Normal Activity Weight Bearing Status: Full weight bearing Allergies/Adverse Reactions: Allergies hydrocodone bitartrate [From Vicodin] Allergy (Verified 04/02/18 11:15) HALLUCINATES HALLUCINATES fish derived Adverse Reaction (Verified 04/02/18 11:15) Anaphylaxis morphine Adverse Reaction (Verified 04/02/18 11:15) HALLUCINATES HALLUCINATES Medications to take at Discharge Cetirizine HCl [Zyrtec] 10 mg PO DAILY 03/10/13 Albuterol Inhaler [Ventolin Hfa] 1 puff INHALATION Q4H PRN PRN 05/11/17 Citalopram [Celexa] 10 mg PO DAILY 05/11/17 Ranitidine HCl 150 mg PO DAILY 05/11/17 fluticasone 50 mcg/actuation nasal spray,suspension 1 spray INTRANASAL QDAY 09/26/17 Atorvastatin Calcium [Lipitor] 10 mg PO QHS 09/29/17 Cholecalciferol (Vitamin D3) [Vitamin D3] 1 tab PO DAILY 11/10/17 Aspirin [Adult Aspirin] 81 mg PO DAILY #30 tablet. 04/02/18 The following prescriptions were given: Aspirin [Adult Aspirin] 81 mg PO DAILY #30 tablet. Primary Care Physician: [facility] Danae Manrique [Primary Care Provider] - Please follow up with your Primary Care Physician in: in 2 weeks Test Results: Test results from this visit will be discussed in further detail at your follow- up appointment, if applicable.
--- NOTE | 2018-04-04 09:33 | DS.PCM_ITS ---
Discharge Date and Diagnosis Date of Admission: 04/02/18 Date of Discharge: 04/02/18 - Primary Discharge Diagnosis #1 right-sided weakness-chronic in nature, etiology unknown #2 intermittent right visual disturbance-etiology unknown #3 hyperlipidemia #4 anxiety disorder #5 past history of coronary artery disease per patient - Secondary Discharge Diagnosis Chronic Problems (Last Updated 04/02/18 @ 14:59 by Joey Ibanez DO) CAD (coronary artery disease) (Chronic) History of cerebrovascular disease (Chronic) History of CVA (cerebrovascular accident) (Chronic) Anxiety disorder (Chronic) Hospital Course and Treatment Operations: None Procedures: None Summary of Care Provided: The patient is a 62 year old F room at [facility] with chief complaint of right-sided weakness and intermittent blurred vision in her right eye. Workup in the emergency room included a CT which showed no evidence of stroke, chest x-ray indicated COPD without acute process, CBC and BMP were unremarkable. NIH stroke score in the ER was 2, patient was placed in observation status on PCU and underwent an MRI of the brain, MRA of the head and neck-all of which were unremarkable and showed no evidence of acute stroke. There is also no evidence of an old stroke. It appears from looking at the patient's medical record that she has been in multiple times with similar complaints, she admitted to this examiner that her right-sided weakness was no worse than it usually is despite going to the ER today with complaints of right- sided weakness. I felt that the patient did not need to continue Plavix, she did not know who placed her on Plavix and for what reason. I asked the patient to take a baby aspirin daily for stroke prevention. Patient was discharged on 04/02/18 in stable condition. Physical exam: On examination she appeared in good health and spirits. Vital signs as documented. Skin warm and dry and without overt rashes. Neck without JVD. Lungs clear. Heart exam notable for regular rhythm, normal sounds and absence of murmurs, rubs or gallops. Abdomen unremarkable and without evidence of organomegaly, masses, or abdominal aortic enlargement. Extremities nonedematous. Neuro: Cranial nerves II through XII are grossly intact, no focal motor deficits were noted, sensation was intact to light touch and pinprick. Psych: Patient is alert and oriented x3, she does not appear anxious or depressed. - Physical Exam Vital Signs Temp Pulse Resp BP Pulse Ox 98.9 F 56 L 16 133/78 H 98 04/02/18 13:54 04/02/18 13:58 04/02/18 13:54 04/02/18 13:54 04/02/18 13:54 Oxygen Delivery Method Room Air Weight: 63.1 kg Body Mass Index (BMI) 22.4 Finger Stick Blood Glucose 103 Discharge Activity: Return to Normal Activity Weight Bearing Status: Full weight bearing Home Medications: Medications to take at Discharge Cetirizine HCl [Zyrtec] 10 mg PO DAILY 03/10/13 Albuterol Inhaler [Ventolin Hfa] 1 puff INHALATION Q4H PRN PRN 05/11/17 Citalopram [Celexa] 10 mg PO DAILY 05/11/17 Ranitidine HCl 150 mg PO DAILY 05/11/17 fluticasone 50 mcg/actuation nasal spray,suspension 1 spray INTRANASAL QDAY 09/26/17 Atorvastatin Calcium [Lipitor] 10 mg PO QHS 09/29/17 Cholecalciferol (Vitamin D3) [Vitamin D3] 1 tab PO DAILY 11/10/17 Aspirin [Adult Aspirin] 81 mg PO DAILY #30 tablet. 04/02/18 Following Prescrptions Were Given to Patient: Aspirin [Adult Aspirin] 81 mg PO DAILY #30 tablet. Primary Care Physician: Danae Subramanian [Primary Care Provider] - Please follow up with your Primary Care Physician in: in 2 weeks Disposition: Home Minutes spent on discharge:: 29 Patient Condition:: Stable Medical Necessity - Tobacco Use Smoking Status: Current every day smoker Tobacco Use: Cigarettes Meaningful Use Info Meaningful Use Diagnoses (Choose all that apply): None applicable Code Visit OBSV E&M: 62511 Observ/hosp same date L3
== END 2018-04-02 17:40 | disposition home or self-care (01) ==
LOC: ED 12:23 → PCU 13:45
PROVIDERS: Admitting Provider Internal Medicine; Emergency Provider Emergency Medicine; Visit Provider Internal Medicine
DX: R53.1 Weakness (principal); E78.5 Hyperlipidemia, unspecified; H53.8 Other visual disturbances; F41.9 Anxiety disorder, unspecified; I25.10 Atherosclerotic heart disease of native coronary artery without angina pectoris; R29.702 NIHSS score 2; F17.210 Nicotine dependence, cigarettes, uncomplicated; Z79.899 Other long term (current) drug therapy; Z86.73 Personal history of transient ischemic attack (TIA), and cerebral infarction without residual deficits; Z79.02 Long term (current) use of antithrombotics/antiplatelets
CPT/HCPCS: 70450; 70544; 70549; 70551; 71046; 80048; 82962; 85025; 85610; 85730; 93005; 99284; A9585; J7030; A4216

== ENCOUNTER → 2018-04-18 13:39 | Outpatient (CLI) | payer MEDICARE, SELFPAY ==
--- NOTE | 2018-04-18 13:44 | CT_ITS ---
STUDY: LOW DOSE CT LUNG CANCER SCREENING REASON FOR EXAM: Female, 62 years old. 16 pack-year history, current smoker RADIATION DOSAGE (If Supplied By Facility): CTDIvol = ( 2.01 ) mGy, DLP = ( 71.23 ) mGycm TECHNIQUE: No contrast was administered. Low dose technique was utilized (average mAS-38 and kVp 120). 1.25 mm axial source images with a slice interval of 1.25-mm were reconstructed in lung windows. 2.5 mm axial source images with a slice interval of 2.5-mm were reconstructed in lung windows. 5.0 mm axial source images with a slice interval of 5.0-mm were reconstructed in soft tissue windows. Nodule measured using lung windows on PACS and/or independent workstation with automated measurement of minimum and maximum diameter. Nodule measurement reported as average diameter rounded to the nearest whole number. Growth is defined as an increase ins size of greater than 1.5 mm. COMPARISON: None. NODULES: Nodule #: 1 Density: Solid Lung location: Right upper lobe: Subpleural Location in series: Series Number: 2 Image: 131 Size - D1 x D2 mm: 4.9 x 5.5 mm: 5 mm average diameter Margin: Smooth Shape: Triangular Calcification: None Fat: None Temporal comparison: None Nodule #: 2 Density: Solid Lung location: Left lower lobe: Subpleural Location in series: Series Number: 2 Image: 182 Size - D1 x D2 mm: 2.8 x 3.0 mm: 3 millimeter average diameter Margin: Smooth Shape: Round Calcification: None Fat: None Temporal comparison: None Total lung nodules (excluding granulomas): 2 Emphysema: There is mild central bronchiectasis with moderate degree of central lobular emphysema predominantly of the upper and midlung zones. Endobronchial lesion: None Aorta: Mild atherosclerosis. Coronary arteries: Normal. Heart: Normal size Pulmonary artery: Unremarkable for unopacified appearance. Mediastinal nodes: No dominant adenopathy. Other chest and abdominal findings: There are degenerative changes of the thoracic spine. No lytic or sclerotic bone lesions. CT/Low Dose CT Lung Screening IMPRESSION: Lung-RADS category 2 - Continue annual screening with LDCT in 12 months. IMPORTANT NOTES FOR USE: ACR Lung-RADS Version 1.0 Assessment Categories Release Date: September 23, 2013 Category: Coded 0-4 bases on nodule(s) with highest degree of suspicion. Negative screen is defined as categories 1 and 2; a positive screen is defined as categories 3 and 4. Category 3 and 4A nodules that are unchanged on interval CT should be coded as category 2, and individuals returned to screening in 12 months. Category 4X: Category 3 or 4 nodules with additional imaging findings that increase the suspicion of lung cancer, such as spiculation, GGN that doubles in size in 1 year, enlarged lymph notes, etc. Category Modifiers: S (significant finding unrelated to lung cancer) and C (prior history of treated lung cancer) may be added to the 0-4 Lung-RADS Electronically Signed: Leonard Barber MD at 8:38 EST , Service support ,
== END ==
PROVIDERS: Referring Provider Nurse Practitioner Family
DX: Z87.891 Personal history of nicotine dependence (principal)
CPT/HCPCS: G0297

== ENCOUNTER 2018-07-07 16:34 | Emergency (ER) | payer MEDICARE, SELFPAY ==
[2018-07-07 16:35] VITALS: BP 136/70; PULSE 101; RESP 18; TEMP 36.8; O2SAT 92; BMI 20.1
--- NOTE | 2018-07-07 16:48 | RAD_ITS ---
STUDY: X-RAY CHEST REASON FOR EXAM: Female, 63 years old. Cough and congestion TECHNIQUE: PA and lateral views of the chest. COMPARISON: None. FINDINGS: There are interstitial fibrotic changes of the lungs. Lungs are hyperinflated. There is no demonstrated pleural abnormality. Normal size heart. Normal mediastinum and omero. Normal visualized pulmonary arteries. There is atherosclerotic tortuosity of the aortic arch and descending thoracic aorta. There are diffuse degenerative changes of the visualized thoracic spine. Normal visualized ribs, clavicles, and shoulders. There is no demonstrated abnormality of the visualized soft tissue structures of the upper abdomen. RAD/Chest PA and Lateral IMPRESSION: 1. No airspace consolidation or pleural effusion. 2. COPD. Electronically Signed: Leonard Barber MD at 17:22 EST , Service support ,
[2018-07-07 16:56] VITALS: O2SAT 92
[2018-07-07] MEDS: Ipratropium/Albuterol Sulfate 3 ML AMPUL.NEB INHALATION (17:04)
[2018-07-07 17:05] VITALS: PULSE 81; RESP 14
[2018-07-07] MEDS: predniSONE 20 MG Tablet 60 MG PO (17:09)
[2018-07-07] MEDS: Doxycycline 100 MG CAPSULE PO (17:09)
--- NOTE | 2018-07-07 17:40 | ED.VISSUMM ---
- ER Visit Summary Date of Service: 07/07/18 Chief Complaint: URI History of Present Illness: The patient is a 63 F with a cough for 6 days. She also reports sinus congestion, phlegm. She has been taking nebulizers every 4 hours with no improvement. No recent antibiotics or steroids. Patient stopped smoking 2 days ago. Denies any history of lung disease. Denies chest pain or fever. Physical Examination: Afebrile and vital signs unremarkable. Alert and oriented. No acute distress. Sitting, breathing, speaking comfortably. HEENT exam unremarkable. Lungs are diminished in all heller. Heart regular rate and rhythm. Skin normal. Calves soft and supple. Test Results: Chest x-ray showed chronic changes, COPD. Emergency Department Course and Treatment: Patient likely has a COPD exacerbation. Nothing to suggest ACS, dissection, PE. X-rays were unremarkable except for chronic changes and COPD. She was treated with a breathing treatment, prednisone, and doxycycline. Follow-up with primary care. Treatment Plan: As above Disposition: Discharge Impression: 1. COPD exacerbation This note was generated with [employer] dictation software. It may contain incorrect words, spelling, and punctuation that were not noted in review of the chart prior to signing ED Disposition - Plan for ED Patient: Referrals: Danny Manrique,Danae Patel [Primary Care Provider] -
--- NOTE | 2018-07-07 17:42 | ED.DEP ---
ED Disposition - Plan for ED Patient: Instructions: ED COPD Flare Prescriptions: Prednisone 10 mg PO UD #33 tab Doxycycline 100 mg PO BID #14 cap Referrals: Danny Manrique,Danae Patel [Primary Care Provider] -
== END 2018-07-07 17:50 | disposition home or self-care (01) ==
LOC: ED 17:02
PROVIDERS: Emergency Provider Emergency Medicine
DX: J44.1 Chronic obstructive pulmonary disease with (acute) exacerbation (principal); F17.210 Nicotine dependence, cigarettes, uncomplicated; Z79.02 Long term (current) use of antithrombotics/antiplatelets; Z79.899 Other long term (current) drug therapy; Z86.73 Personal history of transient ischemic attack (TIA), and cerebral infarction without residual deficits
CPT/HCPCS: 71046; 94640; 99283

== ENCOUNTER 2018-08-01 18:16 | Emergency (ER) | payer MEDICARE, SELFPAY ==
[2018-08-01 18:17] VITALS: BP 165/76; PULSE 69; RESP 16; TEMP 36.6; O2SAT 97
--- NOTE | 2018-08-01 21:18 | ED.RN ---
PT LEFT WITHOUT BEING SEEN
== END 2018-08-01 21:18 | disposition left against medical advice (07) ==
LOC: ED 21:27
PROVIDERS: Emergency Provider Emergency Medicine
DX: M54.9 Dorsalgia, unspecified (principal)

== ENCOUNTER 2018-08-03 15:38 | Emergency (ER) | payer MEDICARE, SELFPAY ==
[2018-08-03 15:39] VITALS: BP 166/80; PULSE 74; RESP 16; TEMP 36.1; O2SAT 96; BMI 20.5
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
[2018-08-03 17:22] LABS: Absolute Lymphocyte Count 1.71 X10^3/ul (0.83-4.51); Absolute Neutrophil Count 2.8 X10^3/uL (2.0-7.7); Basophil# 0.03 X10^3/uL; Basophil% 0.6 % (0-1); Eosinophil# 0.15 X10^3/uL; Hematocrit 43.8 % (37-47); Hemoglobin 14.2 g/dl (12.0-15.0); Lymphocyte # 1.71 X10^3/ul (4.0); Lymphocyte % 34.1 % (19-41); Mean Corp Hgb Conc 32.4 g/gl (32-36); Mean Corpuscular Hgb 30.1 pg (27.0-32.0); Mean Corpuscular Volume 92.8 fL (81-99); Mean Platelet Vol. 9.1 fl (6.2-12.0); Monocyte# 0.28 X10^3/uL; Monocyte% 5.6 % (0-10); Neutrophil # 2.84 X10^3/uL (2.7-7.7); Neutrophil % 56.7 % (47-70); Platelet Count 190 K/mm3 (150-450); RBC Distribution Width CV 14.5 % (11.6-14.6); RBC Distribution Width SD 49.7 fl (35.1-43.9); Red Blood Count 4.72 M/mm3 (4.2-5.4)
[2018-08-03 17:23] LABS: POSITIVE COUNT NO; POSITIVE DIFFERENTIAL NO; POSITIVE MORPHOLOGY NO
[2018-08-03 17:28] LABS: Anion Gap 6 (5-15); BUN 9 mg/dL (7-18); BUN/Creat Ratio 11.1 RATIO (10-20); Calcium,Total 8.9 mg/dL (8.5-10.1); Chloride 108 mmol/L (98-107); Creatinine, Serum 0.81 mg/dL (0.55-1.02); EST Glomerular Filtration Rate 76 mL/min (>60); Est Glom Filt Rate - Afr Amer 92 mL/min (>60); Estimated Creatinine Clearance 66.33 ml/min; Glucose 86 mg/dL (74-106); Potassium 3.9 mmol/L (3.5-5.1); Sodium Level 142 mmol/L (136-145)
[2018-08-03 17:28] LABS: Bacteria 0 SEEN /hpf (None Seen); Mucous, Urine 0 SEEN /hpf (<or=2+); Squamous Epithelial Cells - UA 0 SEEN /hpf (5-10); White Blood Cells 0 SEEN /hpf (0-5)
[2018-08-03 17:53] LABS: Color, Urine Yellow (Yellow); Glucose, Dipstick Normal (Normal); Ketone-Dipstick Negative (Negative); Leukocyte Esterase-Dipstick Negative /ul (Negative); Nitrite-Dipstick Negative (Negative); Occult Blood-Urine 50 /ul (Negative); Protein-Dipstick Negative (Negative); Urine Bilirubin Dipstick Negative (Negative); Urine Clarity Clear (Clear); Urine Urobilinogen Normal (Normal)
[2018-08-03 18:04] LABS: Red Blood Cells-Urine 0-5 SEEN /hpf (0-5)
[2018-08-03 18:50] VITALS: BP 148/88; PULSE 60; RESP 15; O2SAT 96
[2018-08-03 19:39] VITALS: BP 140/80; PULSE 82; RESP 16; O2SAT 97
== END 2018-08-03 19:39 | disposition home or self-care (01) ==
PROVIDERS: Emergency Provider Emergency Medicine
DX: S39.012A Strain of muscle, fascia and tendon of lower back, initial encounter (principal); V89.2XXA Person injured in unspecified motor-vehicle accident, traffic, initial encounter; Y93.9 Activity, unspecified; Y92.9 Unspecified place or not applicable; Y99.9 Unspecified external cause status; F41.9 Anxiety disorder, unspecified; Z72.0 Tobacco use; Z79.02 Long term (current) use of antithrombotics/antiplatelets; Z79.899 Other long term (current) drug therapy; Z86.73 Personal history of transient ischemic attack (TIA), and cerebral infarction without residual deficits
CPT/HCPCS: 74176; 80048; 81001; 85025; 99283

== ENCOUNTER → 2018-08-20 07:39 | Outpatient (CLI) | payer MEDICARE, SELFPAY ==
[2018-08-14 11:00] VITALS: BMI 20.9
--- NOTE | 2018-08-21 15:51 | PFTCOMP ---
COMPLETE PULMONARY FUNCTION TEST INTERPRETATION Brief HPI: Patient is a 63 year old female, currently under the care of myself, who presents to [facility] for complete pulmonary function tests secondary to diagnosis of dyspnea. Respiratory therapist reports good effort and reproducible results. Interpretation: Forced expiration spirometry shows a moderately-severe large airways obstructive ventilatory defect with an FEV1 of 59% predicted. There is no significant bronchodilator response by strict ATS criteria. Spirograms are of good quality and plateau slowly, indicating slowly emptying areas of the lungs. The respiratory flow volume loop shows decreased expiratory flow rates at all lung volumes consistent with airway obstruction. Lung volumes by body plethysmography show an elevated total lung capacity at 6.56 L, 124% predicted. FRC and RV are elevated out of proportion. Lung volume measurements are consistent with hyperinflation and air-trapping. Diffusion capacity by carbon monoxide is at the lower limit of normal at 59% predicted. The airway resistance is elevated. No previous pulmonary function tests were available for review. Impression: There are small moderately severe large airways obstructive ventilatory defect with a symmetric reduction diffusion capacity, consistent with a diagnosis of COPD.
== END ==
PROVIDERS: Referring Provider Internal Medicine Critical Care Medicine; Visit Provider Internal Medicine Critical Care Medicine
DX: R06.00 Dyspnea, unspecified (principal)
CPT/HCPCS: 94060; 94726; 94729

== ENCOUNTER → 2018-08-21 08:01 | Outpatient (CLI) | payer MEDICARE, SELFPAY ==
[2018-08-14 11:00] VITALS: BMI 20.9
[2018-08-21 08:29] VITALS: PULSE 59; PULSE 65; PULSE 69; PULSE 71; PULSE 88; PULSE 89; PULSE 90; O2SAT 91; O2SAT 92; O2SAT 94
--- NOTE | 2018-08-21 15:27 | PCM.PSN.6M ---
PSN 6 Minute Walk Test - 6 Minute Walk Test 6 Minute Walk Test: 6 Minute Walk Test PSN:6-Minute Walk Test Start: 08/21/18 08:27 Freq: Status: Active Protocol: [id number].6MINW Document 08/21/18 08:29 TYSONBert (Rec: 08/21/18 08:31 BAILEE [id number]) 6 Minute Walk Test Date Performed 08/21/18 Time Performed 08:30 Height 5 ft 6 in Weight: 56.961 kg Weight in Pounds 125.[address]: Arslan Love Assistive device used: None Pre-test Oxygen Delivery Method Room Air Pulse Ox (%) 94 Pulse Rate (60-100 beats/min) 59 L Dyspnea Pb Scale (0-10) 0 Exertion Pb Scale (6-20) 6 1st minute Oxygen Delivery Method Room Air Pulse Ox (%) 91 Pulse Rate (60-100 beats/min) 69 2nd minute Oxygen Delivery Method Room Air Pulse Ox (%) 92 Pulse Rate (60-100 beats/min) 71 3rd minute Oxygen Delivery Method Room Air Pulse Ox (%) 92 Pulse Rate (60-100 beats/min) 88 4th minute Oxygen Delivery Method Room Air Pulse Ox (%) 94 Pulse Rate (60-100 beats/min) 90 5th minute Oxygen Delivery Method Room Air Pulse Ox (%) 92 Pulse Rate (60-100 beats/min) 90 6th minute Oxygen Delivery Method Room Air Pulse Ox (%) 92 Pulse Rate (60-100 beats/min) 89 Dyspnea Pb Scale (0-10) 0 Exertion Pb Scale (6-20) 11 Post-test Oxygen Delivery Method Room Air Pulse Ox (%) 94 Pulse Rate (60-100 beats/min) 65 Full Laps Walked 24 Partial Lap, Number of Tiles Walked 50 Total Distance Walked (ft) 1466 - Interpretation Interpretation: The patient was able to ambulate 1466 feet over the course of 6 minutes on room air with no assistive devices or breaks. The patient explains no significant desaturation, but baseline saturations of 94% are slightly decreased. These findings are consistent with a respiratory limitation exercise tolerance - Recommendations Recommendations: No supplemental oxygen is indicated at this time.
== END ==
PROVIDERS: Referring Provider Internal Medicine Critical Care Medicine; Visit Provider Internal Medicine Critical Care Medicine
DX: R06.00 Dyspnea, unspecified (principal)
CPT/HCPCS: 94618

== ENCOUNTER 2018-09-09 12:34 | Emergency (ER) | payer MEDICARE, SELFPAY ==
[2018-08-14 11:00] VITALS: BMI 20.9
[2018-09-09 12:35] VITALS: BP 186/89; PULSE 78; RESP 16; TEMP 36.4; O2SAT 98; BMI 20.9
--- NOTE | 2018-09-09 12:49 | ED.DCSUM_ITS ---
- ER Visit Summary Date of Service: 09/09/18 Chief Complaint: [Itching and burning to right eye] History of Present Illness: The patient is a 63 F [presents the emergency department symptoms that started yesterday. Patient denies any trauma to her eye. She denies foreign body sensation. Denies photophobia. Denies blurred vision or double vision. Denies any real drainage. Patient does have a history of some seasonal allergies. She denies any sick contacts. She denies fever. No significant eye pain.] Physical Examination: [HEENT-PERRLA, EOMI. Cranial nerves II through XII grossly intact. TMs clear. Mucous membranes moist. Right eye-no significant drainage. No significant erythema. No trauma to the eye noted no foreign bodies noted. Eyelids everted no foreign bodies noted. No evidence of stye. No cellulitis. Cardiovascular-regular rate and rhythm without murmur or ectopy Lungs-clear to auscultation, chest wall stable without crepitus or subcu emphysema Abdomen-normoactive bowel sounds, soft, nontender, no rebound or rigidity, no peritoneal signs. Extremities-intact ?4, normal range of motion, normal pulses, atraumatic ] Test Results: [None indicated] Emergency Department Course and Treatment: [Patient will be started on gentamicin ophthalmic eyedrops. Patient also advised to use Benadryl or Claritin as this possibly could be allergic although it is unclear why it is unilateral.] Treatment Plan: [Follow-up with ophthalmology within next 3-5 days. Use gentamicin drops. Use Claritin, Zyrtec, or Benadryl.] Disposition: [Discharged home in stable condition] Impression: [Conjunctivitis right eye] This note was generated with [employer] dictation software. It may contain incorrect words, spelling, and punctuation that were not noted in review of the chart prior to signing ED Disposition - Plan for ED Patient: Referrals: Danae Subramanian [Primary Care Provider] -
--- NOTE | 2018-09-09 12:49 | ED.DEP ---
ED Disposition - Plan for ED Patient: Instructions: ED Conjunctivitis Bacterial, ED Allergic Conjunctivitis Referrals: Danae Subramanian [Primary Care Provider] - Jayden Glass MD [STAFF PHYSICIAN] - 3-5 Days
[2018-09-09 13:15] VITALS: PULSE 61; RESP 17; O2SAT 96
[2018-09-09] MEDS: Gentamicin Sulfate 1 OPTH.BTL 2 DRP RIGHT EYE (13:17)
== END 2018-09-09 13:18 | disposition home or self-care (01) ==
LOC: ED 12:59
PROVIDERS: Emergency Provider Emergency Medicine
DX: H10.9 Unspecified conjunctivitis (principal); Z79.02 Long term (current) use of antithrombotics/antiplatelets; Z79.899 Other long term (current) drug therapy; Z86.73 Personal history of transient ischemic attack (TIA), and cerebral infarction without residual deficits; Z87.891 Personal history of nicotine dependence
CPT/HCPCS: 99282

== ENCOUNTER 2018-11-22 01:10 | Emergency (ER) | payer MEDICARE, SELFPAY ==
[2018-10-04 09:01] VITALS: BMI 20.9
[2018-11-22 01:11] VITALS: BP 138/62; PULSE 62; RESP 16; TEMP 36.9; O2SAT 96; BMI 22.1
--- NOTE | 2018-11-22 01:34 | ED.VISSUMM ---
- ER Visit Summary Date of Service: 11/22/18 Chief Complaint: Bee sting History of Present Illness: The patient is a 63 F who presents with a bee sting. She had a witnessed bee sting to her right upper calf about 12 hours ago. Since that time she has developed some redness and pain. No prior history of allergic reaction to bee stings. She denies any fevers chest pain shortness of breath nausea vomiting. She is not diabetic. She denies any recent illness. Physical Examination: Afebrile vitals unremarkable Moist mucous membranes Heart regular rate No respiratory distress Patient has some erythema of the right calf she is not tender to palpation there is a small area of induration on the proximal portion is not hot to the touch no lymphangitic streaking Test Results: Not indicated Emergency Department Course and Treatment: Examination is consistent with a localized allergic reaction. She was given Kenalog and Benadryl and discharged home. She was instructed on signs and symptoms to monitor for. She understands to return for new or worsening symptoms. She was discharged. Treatment Plan: [] Disposition: Discharge Impression: Bee sting with local allergic reaction This note was generated with [employer] dictation software. It may contain incorrect words, spelling, and punctuation that were not noted in review of the chart prior to signing ED Disposition - Plan for ED Patient: Referrals: Danny Manrique,Danae Patel [Primary Care Provider] -
--- NOTE | 2018-11-22 01:36 | ED.DEP ---
ED Disposition - Plan for ED Patient: Instructions: ALLERGIC REACTION, Insect (General) Referrals: [facility]Danae Patel [Primary Care Provider] -
[2018-11-22] MEDS: Triamcinolone Acetonide 40 MG/ML Vial IM (01:41)
[2018-11-22] MEDS: DiphenhydrAMINE 25 MG Capsule PO (01:41)
[2018-11-22 01:59] VITALS: BP 138/69; PULSE 62; RESP 16; O2SAT 98
== END 2018-11-22 01:59 | disposition home or self-care (01) ==
LOC: ED 01:40
PROVIDERS: Emergency Provider Emergency Medicine
DX: T63.441A Toxic effect of venom of bees, accidental (unintentional), initial encounter (principal); L53.0 Toxic erythema; Y92.9 Unspecified place or not applicable; Z79.02 Long term (current) use of antithrombotics/antiplatelets; Z79.899 Other long term (current) drug therapy
CPT/HCPCS: 96372; 99283

== ENCOUNTER 2019-01-22 08:15 | Emergency (ER) | payer MEDICARE, SELFPAY ==
[2019-01-22 08:17] VITALS: BP 165/86; PULSE 65; RESP 16; TEMP 36.2; O2SAT 98; BMI 19.5
--- NOTE | 2019-01-22 08:39 | CT_ITS ---
STUDY: CT ABDOMEN AND PELVIS WITH CONTRAST REASON FOR EXAM: Female, 63 years old. One-day history of right lower quadrant pain. RADIATION DOSAGE (If Supplied By Facility): CTDIvol = ( 13.06 ) mGy, DLP = ( 293.93 ) mGycm TECHNIQUE: Transaxial images were obtained from the dome of the diaphragm to the symphysis pubis without oral contrast. 100 IV Isovue 300 was administered. Sagittal and coronal images were reconstructed. Individualized dose optimization techniques were used for this CT. COMPARISON: Comparison is made with prior examination dated August 03, 2018. FINDINGS: Minimal increased linear markings at the left lung base suggests probable mild scarring. Emphysematous changes at the lung bases. The visualized portions of the heart are within normal limits. Stable 5 mm cyst in the superior aspect of the right lobe of liver. Scattered cysts are also seen in the right lobe the largest measuring 1.5 cm. Normal gallbladder and extrahepatic biliary system. Normal spleen. Normal pancreas. Normal bilateral adrenal glands. Normal right kidney. Normal left kidney. Normal visualized stomach. Normal small intestine. There are multiple colonic diverticula consistent with diverticulosis. Moderate amount of fecal material is seen in the cecum. The appendix is visualized and appears normal. There is diffuse atherosclerotic calcification of the abdominal aorta, without a demonstrated aneurysm. Normal inferior vena cava. Normal retroperitoneum. Normal urinary bladder. Prominent varicosities seen in the peripheral aspect of the uterus. Normal abdominal wall. Normal osseous structures. CT/Abdomen/Pelvis W IV Cont ONLY IMPRESSION: Prominent varicosities seen in the peripheral aspect of the uterus. Sigmoid diverticulosis. Stable hepatic cysts. Electronically Signed: Oskar Castillo, at 10:22 EDT , Service support ,
--- NOTE | 2019-01-22 08:52 | ED.VISSUMM ---
- ER Visit Summary Date of Service: 01/22/19 Chief Complaint: Abdominal pain History of Present Illness: The patient is a 63 F prior CVA, NH, COPD, kidney and on Plavix. Patient states last night around 11 PM she started developing right lower quadrant abdominal pain. Nausea but no vomiting. Mild hematuria but no dysuria. No fever or chills. No prior abdominal surgeries. Physical Examination: Older female no acute distress. Vital signs are stable and afebrile. H EENT exam unremarkable. Neck nontender. Clear to auscultation. Heart regular rhythm no murmur. Abdomen is soft with mild right upper quadrant and more prominent right lower quadrant tenderness. No organomegaly or masses. No distention. No hernia. No signs of obstruction. Positive bowel sounds. Soft. Menisci the abdomen is nontender. Back is nontender. She is moving all 4 extremities. Calves are nontender without edema. Neurologically she is awake and alert with no focal motor deficits. Test Results: Incision white count 3. Hemoglobin 15. No bands. Electrolytes unremarkable normal gap normal creatinine 0.9. Liver enzymes normal. Lipase normal. UA normal. CT abdomen pelvis showed uterine varicosities. Sigmoid diverticulosis. The appendix was seen and was normal. There is increased stool. Read both by the radiologist and myself. Emergency Department Course and Treatment: Patient with right-sided abdominal pain. Differential would primarily be appendicitis versus kidney stone versus other etiologies. She was treated with Dilaudid for pain and Zofran for nausea. Plus IV fluids. Urinalysis, blood work and CT of be obtained. Treatment Plan: Repeat exam patient is doing well at 0 955. Her abdomen is benign. There is no peritoneal signs. GI and her significant other discussed all of her test results. Discharged home. Fruits, vegetable and fiber. Stool softener as needed. Disposition: Discharge Impression: Acute right-sided abdominal pain uncertain etiology Constipation This note was generated with [employer] dictation software. It may contain incorrect words, spelling, and punctuation that were not noted in review of the chart prior to signing ED Disposition - Plan for ED Patient: Referrals: Danny Manrique,Danae Patel [Primary Care Provider] -
[2019-01-22] MEDS: 0.9% Normal Saline 1,000 ML 1000 ML IV (09:06)
[2019-01-22] MEDS: HYDROmorphone 1 MG/ML Syringe 0.5 MG IV (09:07)
[2019-01-22] MEDS: Ondansetron 4 MG/2 ML Vial IV (09:07)
[2019-01-22 09:17] LABS: Mucous, Urine 0 SEEN /hpf (<or=2+); Red Blood Cells-Urine 0 SEEN /hpf (0-5); White Blood Cells 0 SEEN /hpf (0-5)
[2019-01-22 09:22] LABS: Color, Urine Yellow (Yellow); Glucose, Dipstick Normal (Normal); Ketone-Dipstick Negative (Negative); Leukocyte Esterase-Dipstick Negative /ul (Negative); Nitrite-Dipstick Negative (Negative); Occult Blood-Urine Negative /ul (Negative); Protein-Dipstick Negative (Negative); Urine Bilirubin Dipstick Negative (Negative); Urine Clarity Clear (Clear); Urine Urobilinogen Normal (Normal)
[2019-01-22 09:25] LABS: Absolute Lymphocyte Count 1.48 X10^3/uL (0.83-4.51); Absolute Neutrophil Count 1.7 X10^3/uL (2.0-7.7); Basophil# 0.05 X10^3/uL; Basophil% 1.4 % (0-1); Eosinophil# 0.18 X10^3/uL; Eosinophils% 4.9 % (0-5); Hematocrit 47.4 % (37-47); Hemoglobin 15.2 g/dL (12.0-15.0); Lymphocyte # 1.48 X10^3/ul (4.0); Lymphocyte % 40.4 % (19-41); Mean Corp Hgb Conc 32.1 g/dL (32-36); Mean Corpuscular Hgb 30.5 pg (27.0-32.0); Mean Platelet Vol. 9.3 fl (6.2-12.0); Monocyte# 0.24 X10^3/uL; Monocyte% 6.6 % (0-10); NRBC Flagged by Analyzer 0 % (0-5); Neutrophil % 46.4 % (47-70); Platelet Count 197 K/mm3 (150-450); RBC Distribution Width SD 49.1 fl (35.1-43.9); Red Blood Count 4.99 M/mm3 (4.2-5.4); White Blood Count 3.7 K/mm3 (4.4-11.0)
[2019-01-22 09:29] LABS: Bacteria RARE /hpf (None Seen); Squamous Epithelial Cells - UA 0-5 SEEN /hpf (5-10)
[2019-01-22 09:37] LABS: AST(SGOT) 18 U/L (15-37); Alanine Aminotransfer ALT/SGPT 23 U/L (13-56); Albumin, Serum 3.6 g/dL (3.2-5.0); Alkaline Phosphatase 76 U/L (45-117); Anion Gap 3 (5-15); BUN 11 mg/dL (7-18); BUN/Creat Ratio 11.8 RATIO (10-20); Bilirubin, Direct 0.11 mg/dL (0.00-0.30); Calcium,Total 8.9 mg/dL (8.5-10.1); Chloride 108 mmol/L (98-107); Creatinine, Serum 0.93 mg/dL (0.55-1.02); EST Glomerular Filtration Rate 65 mL/min (>60); Est Glom Filt Rate - Afr Amer 79 mL/min (>60); Estimated Creatinine Clearance 56.86 ml/min; Glucose 86 mg/dL (74-106); Lipase 48 U/L (73-393); Potassium 3.9 mmol/L (3.5-5.1); Protein, Total 7.6 g/dL (6.4-8.2); Sodium Level 141 mmol/L (136-145)
[2019-01-22 11:16] VITALS: BP 134/82; PULSE 61; RESP 16; O2SAT 98
--- NOTE | 2019-01-22 12:03 | ED.DEP ---
ED Disposition - Plan for ED Patient: Disposition: Home or Assisted Living Instructions: ABDOMINAL PAIN, Unknown Cause, (Female), CONSTIPATION (Adult) Referrals: Danny Manrique,Danae Patel [Primary Care Provider] - As Needed Additional Instructions: Fruits, vegetables, fluids such as water and fiber to help with constipation. Stool softener as needed. Tylenol Motrin for pain. Follow-up if not improving or return if worse. Lites Labs including urinalysis today were all unremarkable. Your CAT scan showed increasing stool but otherwise was unremarkable. Your appendix was seen and was read as normal.
== END 2019-01-22 12:24 | disposition home or self-care (01) ==
PROVIDERS: Emergency Provider Emergency Medicine
DX: R10.9 Unspecified abdominal pain (principal); K59.00 Constipation, unspecified; K57.30 Diverticulosis of large intestine without perforation or abscess without bleeding; R31.9 Hematuria, unspecified; J44.9 Chronic obstructive pulmonary disease, unspecified; Z72.0 Tobacco use; Z79.02 Long term (current) use of antithrombotics/antiplatelets; Z79.899 Other long term (current) drug therapy; I25.2 Old myocardial infarction; Z87.442 Personal history of urinary calculi; Z86.73 Personal history of transient ischemic attack (TIA), and cerebral infarction without residual deficits
CPT/HCPCS: 74177; 80048; 80076; 81001; 83690; 85025; 96361; 96374; 96375; 99283; J7030; Q9967; A4216; J2405

== ENCOUNTER → 2019-05-16 14:35 | Outpatient (CLI) | payer MEDICARE, SELFPAY ==
[2019-04-24 13:23] VITALS: BMI 18.9
--- NOTE | 2019-05-16 14:40 | CT_ITS ---
STUDY: LOW DOSE CT LUNG CANCER SCREENING REASON FOR EXAM: Female, 63 years old. 15+ pack-year history, current smoker RADIATION DOSAGE (If Supplied By Facility): CTDIvol = ( 1.70 ) mGy, DLP = ( 63.59 ) mGycm TECHNIQUE: No contrast was administered. Low dose technique was utilized (average mAS-38 and kVp 120). 1.25 mm axial source images with a slice interval of 1.25-mm were reconstructed in lung windows. 2.5 mm axial source images with a slice interval of 2.5-mm were reconstructed in lung windows. 5.0 mm axial source images with a slice interval of 5.0-mm were reconstructed in soft tissue windows. Nodule measured using lung windows on PACS and/or independent workstation with automated measurement of minimum and maximum diameter. Nodule measurement reported as average diameter rounded to the nearest whole number. Growth is defined as an increase ins size of greater than 1.5 mm. COMPARISON: 04/18/2018 NODULES: Nodule #: 1 Density: Solid Lung location: Right upper lobe: Subpleural Location in series: Series Number: 2 Image: 133 Size - D1 x D2 mm: 4.9 x 5.5 mm: 5 mm average diameter Margin: Smooth Shape: Triangular Calcification: None Fat: None Temporal comparison: Stable Nodule #: 2 Density: Solid Lung location: Left lower lobe: Subpleural Location in series: Series Number: 2 Image: 201 Size - D1 x D2 mm: 2.8 x 3.0 mm: 3 millimeter average diameter Margin: Smooth Shape: Round Calcification: None Fat: None Temporal comparison: Stable Total lung nodules (excluding granulomas): 2 Emphysema: There is mild central bronchiectasis with moderate degree of central lobular emphysema predominantly of the upper and midlung zones. Endobronchial lesion: None Aorta: Mild atherosclerosis. Coronary arteries: Normal. Heart: Normal size Pulmonary artery: Unremarkable for unopacified appearance. Mediastinal nodes: No dominant adenopathy. Other chest and abdominal findings: There are degenerative changes of the thoracic spine. No lytic or sclerotic bone lesions. CT/Low Dose CT Lung Screening IMPRESSION: Lung-RADS category 2 - Continue annual screening with LDCT in 12 months. IMPORTANT NOTES FOR USE: ACR Lung-RADS Version 1.0 Assessment Categories Release Date: September 23, 2013 Category: Coded 0-4 bases on nodule(s) with highest degree of suspicion. Negative screen is defined as categories 1 and 2; a positive screen is defined as categories 3 and 4. Category 3 and 4A nodules that are unchanged on interval CT should be coded as category 2, and individuals returned to screening in 12 months. Category 4X: Category 3 or 4 nodules with additional imaging findings that increase the suspicion of lung cancer, such as spiculation, GGN that doubles in size in 1 year, enlarged lymph notes, etc. Category Modifiers: S (significant finding unrelated to lung cancer) and C (prior history of treated lung cancer) may be added to the 0-4 Lung-RADS Electronically Signed: Leonard Barber MD (Brooks) at 9:57 EST , Service support ,
== END ==
PROVIDERS: Referring Provider Nurse Practitioner Acute Care; Visit Provider Nurse Practitioner Acute Care
DX: Z12.2 Encounter for screening for malignant neoplasm of respiratory organs (principal); J44.9 Chronic obstructive pulmonary disease, unspecified; Z87.891 Personal history of nicotine dependence
CPT/HCPCS: G0297

== ENCOUNTER 2019-06-12 13:40 | Emergency (ER) | payer MEDICARE, SELFPAY ==
[2019-04-24 13:23] VITALS: BMI 18.9
[2019-06-12 13:42] VITALS: BP 135/75; PULSE 73; RESP 16; TEMP 36.4; O2SAT 97; BMI 19.7
[2019-06-12 13:44] VITALS: BP 135/75; PULSE 73; RESP 16; TEMP 36.4; O2SAT 97
--- NOTE | 2019-06-12 14:05 | RAD_ITS ---
STUDY: X-RAY - RIGHT KNEE REASON FOR EXAM: Female, 63 years old. FELL 1 WEEK AGO, PAIN IN RIGHT KNEE SINCE THEN. TECHNIQUE: 4 view(s) of the knee. COMPARISON: None. FINDINGS: Normal visualized distal femur. Normal visualized proximal tibia and fibula. Normal proximal tibiofibular articulation. Normal medial femorotibial compartment. Normal lateral femorotibial compartment. Normal patellofemoral articulation. Degenerative spurring along the anterior superior aspect of the patella. The soft tissue structures are unremarkable. RAD/Knee 4 or More Views IMPRESSION: No acute abnormality is seen. Electronically Signed: Oskar Castillo, at 14:33 EST , Service support ,
[2019-06-12] MEDS: oxyCODONE 5 MG Tablet PO (14:43)
--- NOTE | 2019-06-12 14:46 | ED.VISSUMM ---
- ER Visit Summary Date of Service: 06/12/19 Chief Complaint: Knee pain History of Present Illness: The patient is a 63 F who has right knee pain. She states that she fell 1 week ago directly onto the knee. She did not have pain until yesterday. Pain is diffuse around the knee. Is worse with movement and walking. She took nothing for it at home. The pain radiates up the leg. She denies any history of any knee surgeries in the past. Physical Examination: Vital signs reviewed. Right knee exam reveals tenderness diffusely. There is no swelling. No erythema. She has limited range of motion secondary to pain. Test Results: Right knee x-ray reveals no acute findings Emergency Department Course and Treatment: The patient was given 1 oxycodone here. X-rays are negative. I informed her that she should continue to wear the brace that she has at home. I will give her naproxen for pain. I will give her orthopedic follow-up. Treatment Plan: [] Disposition: Discharge Impression: Right knee pain This note was generated with [employer] dictation software. It may contain incorrect words, spelling, and punctuation that were not noted in review of the chart prior to signing ED Disposition - Plan for ED Patient: Disposition: Home or Assisted Living Instructions: KNEE PAIN, Uncertain Cause Prescriptions: Naproxen [Naprosyn] 500 mg PO BID PRN #20 tab Transmission Status: Pending to [id number] Referrals: [facility] Hilaria,Danae Patel [Primary Care Provider] - Additional Instructions: Your prescription was electronically transferred to [facility] Sanchez
[2019-06-12 15:03] VITALS: BP 128/74; PULSE 87; RESP 14; O2SAT 98
== END 2019-06-12 15:04 | disposition home or self-care (01) ==
PROVIDERS: Emergency Provider Emergency Medicine
DX: M25.561 Pain in right knee (principal); J44.9 Chronic obstructive pulmonary disease, unspecified; Z72.0 Tobacco use; Z86.73 Personal history of transient ischemic attack (TIA), and cerebral infarction without residual deficits
CPT/HCPCS: 73564; 99283

== ENCOUNTER 2019-06-16 10:58 | Emergency (ER) | payer MEDICARE, SELFPAY ==
[2019-06-16 10:59] VITALS: BP 183/93; PULSE 65; RESP 18; TEMP 36.3; O2SAT 95
[2019-06-16 11:05] VITALS: BP 183/93; PULSE 65; RESP 18; O2SAT 96
--- NOTE | 2019-06-16 11:25 | ED.DCSUM_ITS ---
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 Patient states that she fell onto her right shoulder 1 week ago while walking her dog. She has not yet been seen for this since that time. She has not had chest pain shortness of breath headache or neck pain, she has not been lightheaded or dizzy, no visual changes, no nausea or vomiting, no weakness or paresthesias. She is on Plavix. She did not hit her head or lose consciousness and there were no prodromal symptoms. She has been eating and drinking normally and doing her activities of daily living normally. However, he is a continued pain. She denies history of injury or surgery to this shoulder previously. Tetanus Immunization: Unknown Prior similar symptoms: No Recent Illness/Hospitalization: No <Sergio Abreu - Last Filed: 06/16/19 12:18> Chief Complaint: Upper Extremity Injury Past Medical History - Family History Paternal Family History: Family History (Last Reviewed 04/24/19 @ 13:48 by CARLO Caal) Mother Diabetes Heart disease Hypertension High cholesterol Father Heart disease Hypertension High cholesterol CVA (cerebral vascular accident) Maternal Family History: Family History (Last Reviewed 04/24/19 @ 13:48 by CARLO Caal) Mother Diabetes Heart disease Hypertension High cholesterol Father Heart disease Hypertension High cholesterol CVA (cerebral vascular accident) <Gillian Yeung - Last Filed: 06/16/19 12:13> Prior records reviewed: Yes Past Medical History: - - HTN Surgical History: cataract - Bilateral, - - Left shoulder surgery for frozen shoulder. Smoking Status: Current every day smoker Alcohol: Occasional Drugs: None - Family History Paternal Family History: Family History (Last Reviewed 04/24/19 @ 13:48 by Vanessa Fernandez, FINANCIAL ADVISOR TRAINEE-C) Mother Diabetes Heart disease Hypertension High cholesterol Father Heart disease Hypertension High cholesterol CVA (cerebral vascular accident) Family History: Reports: No pertinent history Maternal Family History: Family History (Last Reviewed 04/24/19 @ 13:48 by CARLO Caal) Mother Diabetes Heart disease Hypertension High cholesterol Father Heart disease Hypertension High cholesterol CVA (cerebral vascular accident) Family History: Reports: No pertinent history <Sergio Abreu - Last Filed: 06/16/19 12:18> - Allergies and Home Meds Allergies/Adverse Reactions: Allergies hydrocodone bitartrate [From Vicodin] Allergy (Verified 04/24/19 13:28) HALLUCINATES HALLUCINATES fish derived Adverse Reaction (Verified 04/24/19 13:28) Anaphylaxis morphine Adverse Reaction (Verified 04/24/19 13:28) HALLUCINATES HALLUCINATES Primary Care Physician: Danae Subramanian [Primary Care Provider] - Review of Systems All systems negative except as indicated General: Denies: Chills, Fever Eyes: Denies: Visual changes - bilaterally, Blurred Vision - bilaterally ENT: Denies: Rhinorrhea, Sore throat Cardiovascular: Denies: Chest pain, Palpitations, Heart racing Respiratory: Denies: Dyspnea, Cough, Dyspnea on exertion Gastrointestinal: Denies: Abdominal pain, Nausea, Vomiting, Diarrhea Genitourinary: Denies: Dysuria, Hematuria, Frequency Musculoskeletal: Reports: Extremity Pain. Denies: Neck pain, Back pain, Swelling Skin: Denies: Rash, Abscess, Abrasions, Wounds Neurological: Denies: Headache, Weakness, Parasthesia <Sergio Abreu - Last Filed: 06/16/19 12:18> Physical Exam Vital Signs/Narrative: Vital Signs Temp Pulse Resp BP Pulse Ox 06/16/19 11:05 65 18 183/93 H 96 06/16/19 10:59 97.4 F L 65 18 183/93 H 95 <Gillian Yeung - Last Filed: 06/16/19 12:13> Vital Signs/Narrative: Vital Signs Temp Pulse Resp BP Pulse Ox 06/16/19 11:05 65 18 183/93 H 96 06/16/19 10:59 97.4 F L 65 18 183/93 H 95 Inital Vital Signs reviewed: Yes Right Shoulder: - - Normal inspection of the right shoulder she has diffuse bony tenderness but no signs of trauma skin is normal in appearance she has normal range of motion but it is painful and she is neurovascularly intact distally. General: Well nourished, Well developed Head: Normocephalic, Atraumatic Eyes: Perrl, EOMI ENT: No Trauma, Moist Mucous Membranes Neck: Nontender, Full ROM. Negative for: Spinal Tenderness, Paraspinal Tenderness Cardiovascular: Regular rate, Regular rhythm Respiratory: No distress, CTA bilaterally, Chest nontender Abdomen: Soft, Nontender, Nondistended, Normal bowel sounds, No masses Back: Nontender Neurological: Alert, Oriented x3, Normal Strength, Normal Sensation, Normal Gait Psychological: Normal affect, Normal Mood <Sergio Abreu - Last Filed: 06/16/19 12:18> Diagnostic/Tx/Re-eval - Medical Decision Making The patient has what appears to be chronic intermittent right shoulder pain, patient seen with Mata agree with history physical above indicates she was working with her dog and the dog pulled on her arm about a week ago causing pain to the shoulder it persisted today she has also knee pain from this event that she was prior evaluated for and she is scheduled to see outpatient providers for all the above on exam Head neck chest unremarkable at the left shoulder is unremarkable, the right shoulder she has near full range of motion forward elevation is intact neuromuscular function is intact to the right upper extremity given all the above x-rays obtained please see the chart for full details <Gillian Yeung - Last Filed: 06/16/19 12:13> ED Disposition <Gillian Yeung - Last Filed: 06/16/19 12:13> <Sergio Abreu - Last Filed: 06/16/19 12:18> - Plan for ED Patient: Disposition: Home or Assisted Living Diagnosis: Sprain of right shoulder Instructions: Shoulder Sprain Prescriptions: Acetaminophen [Acetaminophen Extra Strength] 500 mg PO Q6H PRN PRN #28 tab PRN Reason: Pain Or Fever Prescription Printed Referrals: Danny Manrique,Danae Patel [Primary Care Provider] -
--- NOTE | 2019-06-16 11:38 | RAD_ITS ---
STUDY: X-RAY - RIGHT SHOULDER REASON FOR EXAM: Female, 63 years old. RIGHT SHOULDER PAIN AFTER FALL TECHNIQUE: 4 view(s) of the shoulder. COMPARISON: None. FINDINGS: Normal glenohumeral articulation. Normal acromioclavicular joint. Normal acromion. Normal humeral head and visualized proximal humerus. The soft tissue structures are unremarkable. Normal visualized pulmonary apex. RAD/Shoulder min 2 Views IMPRESSION: No fracture or malalignment. Electronically Signed: Leonard Barber MD (Bro[place]) at 12:05 EST , Service support ,
[2019-06-16] MEDS: Acetaminophen 325 MG Tablet 650 MG PO (11:54)
[2019-06-16 12:44] VITALS: BP 185/87; PULSE 72
== END 2019-06-16 12:44 | disposition home or self-care (01) ==
PROVIDERS: Emergency Provider Physician Assistant Medical
DX: S43.401A Unspecified sprain of right shoulder joint, initial encounter (principal); W18.39XA Other fall on same level, initial encounter; Y93.K1 Activity, walking an animal; Y99.8 Other external cause status; G89.29 Other chronic pain; I10 Essential (primary) hypertension; F17.200 Nicotine dependence, unspecified, uncomplicated; Z79.02 Long term (current) use of antithrombotics/antiplatelets
CPT/HCPCS: 73030; 99284

== ENCOUNTER → 2019-10-22 12:43 | Outpatient (CLI) | payer MEDICARE, MEDICAID, SELFPAY ==
[2019-04-24 13:23] VITALS: BMI 18.9
--- NOTE | 2019-10-22 13:59 | PFTCOMP_ITS ---
COMPLETE PULMONARY FUNCTION TEST INTERPRETATION Brief HPI: Patient is a 64 year old female, currently under the care of myself, who presents to [facility] for complete pulmonary function tests secondary to diagnosis of COPD. Respiratory therapist reports good effort and reproducible results. Interpretation: Forced expiration spirometry shows a moderate large airways obstructive ventilatory defect with an FEV1 of 60% predicted. There is no significant bronchodilator response by strict ATS criteria. Spirograms are of good quality and plateau slowly, indicating slowly emptying areas of the lungs. The respiratory flow volume loop shows decreased expiratory flow rates at all lung volumes consistent with airway obstruction. Lung volumes by body plethysmography show a normal total lung capacity at 5.86 L, 111% predicted. All other lung volumes are within normal limits. Diffusion capacity by carbon monoxide is decreased at 58% predicted. The airway resistance is elevated. Compared to previous pulmonary function tests from 08/20/2018, there is some improvement in air trapping with hyperinflation. Impression: Irreversible moderate large airways obstructive ventilatory defect with a symmetric reduction in diffusion capacity and some improvement compared to previous testing.
== END ==
PROVIDERS: PCP Nurse Practitioner Family; Referring Provider Nurse Practitioner Acute Care; Visit Provider Nurse Practitioner Acute Care
DX: J44.9 Chronic obstructive pulmonary disease, unspecified (principal)
CPT/HCPCS: 94060; 94726; 94729

== ENCOUNTER 2020-01-18 16:52 | Emergency (ER) | payer MEDICARE, MEDICAID, SELFPAY ==
[2020-01-18 16:53] VITALS: BP 133/64; PULSE 66; RESP 16; TEMP 36.1; O2SAT 95; BMI 20.1
--- NOTE | 2020-01-18 17:09 | ED.VIS.GEN ---
History of Present Illness Chief Complaint: Rash Informant: Patient Onset: Today Current Severity: Mild Maximum Severity: Mild Narrative: Patient presents with rash to bilateral lower extremities. She denies itching or pain. She states she was out in a yard helping a friend do some cleanup work yesterday. They were going through fairly tall brush. She was wearing jeans at the time. Today she noted small red lesions on her lower extremities. She states that she felt somewhat lightheaded after she noticed this and is not sure if is related to the rash or from anxiety. 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 Status: Chronic (2) HTN (hypertension) Status: Chronic (3) COPD (chronic obstructive pulmonary disease) Status: Chronic (4) CAD (coronary artery disease) Status: Chronic (5) Diaphragm paralysis Status: Resolved (6) History of CVA (cerebrovascular accident) Status: Chronic Comment: 11/2011 (7) Anxiety disorder Status: Chronic Past Medical History - Allergies and Home Meds Allergies/Adverse Reactions: Allergies hydrocodone bitartrate [From Vicodin] Allergy (Verified 01/18/20 16:54) HALLUCINATES HALLUCINATES fish derived Adverse Reaction (Verified 01/18/20 16:54) Anaphylaxis morphine Adverse Reaction (Verified 01/18/20 16:54) HALLUCINATES HALLUCINATES Primary Care Physician: Bridget Dsouza NP-C [Primary Care Provider] - Prior records reviewed: Yes Surgical History: cataract - Bilateral, - - Left shoulder surgery for frozen shoulder. Smoking Status: Current every day smoker - Family History Paternal Family History: Family History (Last Reviewed 10/31/19 @ 13:01 by CARLO Caal) Mother Diabetes Heart disease Hypertension High cholesterol Father Heart disease Hypertension High cholesterol CVA (cerebral vascular accident) Family History: Reports: No pertinent history Maternal Family History: Family History (Last Reviewed 10/31/19 @ 13:01 by CARLO Caal) Mother Diabetes Heart disease Hypertension High cholesterol Father Heart disease Hypertension High cholesterol CVA (cerebral vascular accident) Family History: Reports: No pertinent history Review of Systems General: Denies: Chills, Fever Eyes: Denies: Visual changes - bilaterally ENT: Denies: Bilateral ear pain Cardiovascular: Denies: Chest pain Respiratory: Denies: Dyspnea, Cough Gastrointestinal: Denies: Abdominal pain, Nausea, Vomiting, Diarrhea Genitourinary: Denies: Dysuria Musculoskeletal: Denies: Swelling, Extremity Pain Skin: Reports: Rash Neurological: Denies: Headache Hematologic: Denies: Easy bruising, Easy bleeding Allergy: Denies: Uticaria Physical Exam Vital Signs/Narrative: Vital Signs Temp Pulse Resp BP Pulse Ox 01/18/20 16:53 97 F L 66 16 133/64 H 95 Inital Vital Signs reviewed: Yes General: Well nourished, Well developed Head: Normocephalic ENT: Moist mucous membranes Neck: Supple Cardiovascular: Regular rate, Regular rhythm Respiratory: No distress, CTA bilaterally Abdomen: Soft, Nontender Extremities: Nontender, - - Patient has multiple small, approximately 3 mm diameter red lesions on the lower extremities, below the knees, bilaterally. These appear to be consistent with bug bites. I do not see sign of secondary infection or open lesions. Neurological: Alert, Oriented x3 Psychological: Normal affect Diagnostic/Tx/Re-eval - Medical Decision Making Discussed that at this time lesions appear to be consistent with simple bug bites. I do not see sign of secondary infection. She was advised to use hydrocortisone cream if they become more painful or itchy. She was advised to watch for signs of infection. ED Disposition - Plan for ED Patient: Disposition: Home or Assisted Living Diagnosis: Bug bites Instructions: ED Insect Bite Referrals: Bridget Dsouza NP-C [Primary Care Provider] - 1 Week if not improving
== END 2020-01-18 17:28 | disposition home or self-care (01) ==
LOC: ED 17:22
PROVIDERS: Emergency Provider Emergency Medicine; PCP Nurse Practitioner Family
DX: S80.862A Insect bite (nonvenomous), left lower leg, initial encounter (principal); S80.861A Insect bite (nonvenomous), right lower leg, initial encounter; W57.XXXA Bitten or stung by nonvenomous insect and other nonvenomous arthropods, initial encounter; I25.10 Atherosclerotic heart disease of native coronary artery without angina pectoris; I10 Essential (primary) hypertension; J44.9 Chronic obstructive pulmonary disease, unspecified; F17.200 Nicotine dependence, unspecified, uncomplicated; Z79.02 Long term (current) use of antithrombotics/antiplatelets; Z79.899 Other long term (current) drug therapy; Z86.73 Personal history of transient ischemic attack (TIA), and cerebral infarction without residual deficits
CPT/HCPCS: 99282

== ENCOUNTER 2020-03-20 23:51 | Emergency (ER) | payer MEDICARE, MEDICAID, SELFPAY ==
[2020-03-20 23:52] VITALS: BP 121/66; PULSE 57; RESP 16; TEMP 36.1; O2SAT 97; BMI 21.8
--- NOTE | 2020-03-21 00:58 | CT_ITS ---
STUDY: CT BRAIN WITHOUT CONTRAST REASON FOR EXAM: Female, 64 years old. RT SIDE NUMBNESS. Hx of CVA, CAD, HTN and COPD RADIATION DOSAGE (If Supplied By Facility): CTDIvol = ( 44.99 ) mGy, DLP = ( 728.62 ) mGycm TECHNIQUE: Transaxial CT imaging of the brain was performed without administration of intravenous contrast material. Individualized dose optimization techniques were used for this CT. COMPARISON: CT scan brain 04/02/2018. FINDINGS: Normal soft tissue structures. Normal calvarium. Normal size ventricles and extra-axial spaces for the patient''s age. Normal white matter tracts of the cerebral hemispheres. Normal basal ganglia and thalami. Normal brainstem. Normal cerebellum. There is atherosclerotic calcification of the cavernous carotid arteries. There is no intracranial hemorrhage. There are no findings of an acute ischemic infarction. Normal visualized paranasal sinuses. CT/Brain/Head without Contrast IMPRESSION: No demonstrated acute intracranial process. Mild atherosclerotic calcification of the cavernous carotid arteries. Electronically Signed: Thai Jackson MD at 3:07 EDT , Service support ,
--- NOTE | 2020-03-21 00:59 | EKG12_ITS ---
Test Reason : OTHER/PAIN Blood Pressure : / mmHG Vent. Rate : 053 BPM Atrial Rate : 053 BPM P-R Int : 166 ms QRS Dur : 084 ms QT Int : 438 ms P-R-T Axes : 045 070 071 degrees QTc Int : 410 ms Sinus bradycardia with sinus arrhythmia Septal infarct , age undetermined Abnormal ECG Confirmed by MERI SHERMAN, SHREYA ([id number]), pictures editor ASHLEY TORRES ([id number]) on 03/23/2020 11:41:41 AM Referred By: BB Confirmed By:SHREYA JEREZ MD
--- NOTE | 2020-03-21 01:00 | ED.VIS.GEN ---
History of Present Illness Chief Complaint: Other, Pain/Inj Detail of Chief Complaint: right sided pain/muscle spasms Informant: Patient Onset: Hours - little more than 24 hrs Context: Gradual Onset Timing: Continuous Quality: spasms, aching Location: R side Current Severity: Moderate Maximum Severity: Moderate Worsened by: nothing Relieved by: Applying aspercreme to affected area on trunk Associated Symptoms: paresthesias R side. Narrative: Patient states he has been having aching pain, with paresthesias and muscle spasms throughout the right side of her body. She states started in her leg and seem to go up her trunk as well, to her right shoulder and down her arm. It is worse with moving around and palpating the affected areas, she has had no chest pain or shortness of breath, no weakness. She had a migraine couple days ago and has a history of those, she states she has been having some sinus headaches today. She had a history of a stroke that affected her right side of her body, and she had speech affected as well. That was remote. She has done a lot of rehab and now walks well and had speech therapy and talks well. She has had no reproduction of any speech symptoms today, nor weakness. Her main complaint is pain and muscle spasms in the right extremities and the right side of her trunk. No nausea, vomiting, diarrhea, bright red blood per rectum, melena. - Past Medical History (1) Anxiety disorder Status: Chronic (2) Bronchiectasis Status: Chronic (3) CAD (coronary artery disease) Status: Chronic (4) HTN (hypertension) Status: Chronic (5) History of CVA (cerebrovascular accident) Status: Chronic Comment: 11/2011 (6) 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 Status: Chronic Past Medical History - Allergies and Home Meds Allergies/Adverse Reactions: Allergies hydrocodone bitartrate [From Vicodin] Allergy (Verified 03/20/20 23:52) HALLUCINATES HALLUCINATES fish derived Adverse Reaction (Verified 03/20/20 23:52) Anaphylaxis morphine Adverse Reaction (Verified 03/20/20 23:52) HALLUCINATES HALLUCINATES Primary Care Physician: Bridget Dsouza NP, COLLECTIONS DIRECTOR-C [Primary Care Provider] - Surgical History: cataract - Bilateral, - - Left shoulder surgery for frozen shoulder. Lives: Spouse/ Significant Other Smoking Status: Current every day smoker - Family History Paternal Family History: Family History (Last Reviewed 10/31/19 @ 13:01 by Vanessa Fernandez COLLECTIONS DIRECTOR, COLLECTIONS DIRECTOR-C) Mother Diabetes Heart disease Hypertension High cholesterol Father Heart disease Hypertension High cholesterol CVA (cerebral vascular accident) Family History: Reports: No pertinent history Maternal Family History: Family History (Last Reviewed 10/31/19 @ 13:01 by Vanessa Fernandez NP, COLLECTIONS DIRECTOR-C) Mother Diabetes Heart disease Hypertension High cholesterol Father Heart disease Hypertension High cholesterol CVA (cerebral vascular accident) Family History: Reports: No pertinent history Review of Systems General: Denies: Chills, Fever, Sweats Eyes: Denies: Visual changes - bilaterally, Diplopia ENT: Denies: Bilateral ear pain, Rhinorrhea, Sore throat Cardiovascular: Denies: Chest pain, Palpitations Respiratory: Reports: Cough. Denies: Dyspnea, Sputum, Dyspnea on exertion Gastrointestinal: Denies: Abdominal pain, Nausea, Vomiting, Diarrhea, Melena, Hematochezia Genitourinary: Denies: Dysuria, Hematuria, Frequency Musculoskeletal: Reports: Myalgias, Extremity Pain. Denies: Neck pain, Back pain, Swelling Skin: Denies: Rash, Wounds Neurological: Reports: Headache, Numbness. Denies: Weakness Physical Exam Vital Signs/Narrative: Vital Signs Temp Pulse Resp BP Pulse Ox 03/20/20 23:52 96.9 F L 57 L 16 121/66 H 97 Inital Vital Signs reviewed: Yes General: Well nourished, Well developed, No Acute Distress Head: Normocephalic, Atraumatic Eyes: Perrl, EOMI ENT: Moist mucous membranes, No rhinorrhea Neck: Supple, Nontender, No lymphadenopathy Cardiovascular: Regular rate, Regular rhythm, No murmurs Respiratory: No distress, CTA bilaterally, Chest tenderness - Throughout right lateral rib cage. No crepitance or rash/lesions. No subcutaneous emphysema. Normal in appearance. Abdomen: Soft, Nontender, Nondistended, Normal bowel sounds Back: Nontender, Normal Inspection Extremities: Nontender, No edema Skin: Normal color, No rash Neurological: Alert, Oriented x3, Cranial nerves II-XII grossly intact, Normal Strength, Parasthesia - Mild, subjective, right upper and lower extremities. NIH 1 total., - - Normal speech. No aphasia or dysarthria. Psychological: Normal affect, Normal Mood Diagnostic/Tx/Re-eval Impressions Brain CT 10/24/20 00:58 IMPRESSION: No demonstrated acute intracranial process. Mild atherosclerotic calcification of the cavernous carotid arteries. Electronically Signed: Thai Jackson MD at 3:07 EDT , Service support , Chest X-Ray 03/21/20 01:05 IMPRESSION: Chronic interstitial changes. No evidence for acute cardiopulmonary pathology. Electronically Signed: Thai Jackson MD at 2:01 EDT , Service support , 03/21/20 00:58 Brain/Head without Contrast [CT] Stat 03/21/20 01:05 CXR [Chest 1 View (Portable)] [RAD] Stat Laboratory Results 03/21/20 03/21/20 01:15 01:15 WBC 3.9 L RBC 4.33 Hgb 12.9 Hct 40.2 MCV 92.8 MCH 29.8 MCHC 32.1 RDW Std Deviation 42.6 RDW Coeff of Keo 12.4 Plt Count 205 MPV 8.4 Immature Gran % (Auto) 0.300 Neut % (Auto) 51.2 Lymph % (Auto) 27.5 [place] % (Auto) 10.1 H Eos % (Auto) 10.1 H Baso % (Auto) 0.8 Absolute Neuts (auto) 2.0 Absolute Lymphs (auto) 1.06 Nucleated RBC % 0 Sodium 139 Potassium 4.0 Chloride 104 Carbon Dioxide 32.0 Anion Gap 3 L BUN 21 H Creatinine 1.07 H Estim Creat Clear Calc 49.05 Est GFR (MDRD) Af Amer 67 Est GFR (MDRD) Non-Af 55 L BUN/Creatinine Ratio 19.6 Glucose 93 Calcium 8.8 Troponin I < 0.015 - Rhythm Strip Rhythm Strip: Sinus Rhythm Rate: 53 Ectopy: None - EKG Initial EKG Interpretation: No Acute Injury Pattern, Sinus Bradycardia Prior: Unchanged - Medical Decision Making Patient symptoms are in usual, with regards to pain in the right side along with paresthesias. She is also been having headaches, differential here includes electrolyte disorders causing musculoskeletal pain/muscle spasm/tetany, migraine, pneumonia, cardiac dysrhythmia, stroke. As above the work-up is largely negative. She was treated with IV Toradol and Reglan and on reevaluation she states the paresthesias and headache resolved, and she has mild pain in the right side but it is much better. I do not feel she is having a recurrent ischemic stroke, her right lateral chest wall pain is all very reproducible when she moves around and when I palpate her rib cage, there is no signs of shingles/zoster rash, I do not think she needs to be worked up for pulmonary embolus at this time. She is comfortable going home and following up, we discussed reasons to return. ED Disposition - Plan for ED Patient: Disposition: Home or Assisted Living Diagnosis: Migraine, Paresthesias, Muscle spasm, Right-sided chest wall pain Instructions: ED, Migraine (Classical), ED Paraesthesias Referrals: Bridget Dsouza COLLECTIONS DIRECTOR, COLLECTIONS DIRECTOR-C [Primary Care Provider] - 3-5 Days if not improving
--- NOTE | 2020-03-21 01:05 | RAD_ITS ---
STUDY: X-RAY CHEST REASON FOR EXAM: Female, 64 years old. RT SIDED CP TECHNIQUE: Single AP portable view of the chest. COMPARISON: 07/07/2018. FINDINGS: There is mild diffuse interstitial prominence horns which appears to be chronic. There are no confluent pulmonary infiltrates. There is no demonstrated pleural abnormality. Normal size heart. Normal mediastinum and omero. Normal visualized aortic arch and descending thoracic aorta. There are no demonstrated acute fractures or destructive bone lesions. There is no demonstrated abnormality of the visualized soft tissue structures of the upper abdomen. RAD/Chest 1 View (Portable) IMPRESSION: Chronic interstitial changes. No evidence for acute cardiopulmonary pathology. Electronically Signed: Thai Jackson MD at 2:01 EDT , Service support ,
[2020-03-21] MEDS: Ketorolac 15 MG/ML Vial IV (01:19)
[2020-03-21] MEDS: Metoclopramide 10 MG/2 ML Vial 2.5 MG IV (01:19)
[2020-03-21 01:21] LABS: Absolute Lymphocyte Count 1.06 X10^3/uL (0.83-4.51); Basophil# 0.03 X10^3/uL; Basophil% 0.8 % (0-1); Eosinophil# 0.39 X10^3/uL; Eosinophils% 10.1 % (0-5); Hematocrit 40.2 % (37-47); Hemoglobin 12.9 g/dL (12.0-15.0); Lymphocyte # 1.06 X10^3/ul (4.0); Lymphocyte % 27.5 % (19-41); Mean Corp Hgb Conc 32.1 g/dL (32-36); Mean Corpuscular Hgb 29.8 pg (27.0-32.0); Mean Corpuscular Volume 92.8 fL (81-99); Mean Platelet Vol. 8.4 fl (6.2-12.0); Monocyte# 0.39 X10^3/uL; Monocyte% 10.1 % (0-10); NRBC Flagged by Analyzer 0 % (0-5); Neutrophil # 1.98 X10^3/uL (2.7-7.7); Neutrophil % 51.2 % (47-70); Platelet Count 205 K/mm3 (150-450); RBC Distribution Width CV 12.4 % (11.6-14.6); RBC Distribution Width SD 42.6 fl (35.1-43.9); Red Blood Count 4.33 M/mm3 (4.2-5.4); White Blood Count 3.9 K/mm3 (4.4-11.0)
[2020-03-21 01:43] LABS: Anion Gap 3 (5-15); BUN 21 mg/dL (7-18); BUN/Creat Ratio 19.6 RATIO (10-20); Calcium,Total 8.8 mg/dL (8.5-10.1); Chloride 104 mmol/L (98-107); Creatinine, Serum 1.07 mg/dL (0.55-1.02); EST Glomerular Filtration Rate 55 mL/min (>60); Est Glom Filt Rate - Afr Amer 67 mL/min (>60); Estimated Creatinine Clearance 49.05 ml/min; Glucose 93 mg/dL (74-106); Sodium Level 139 mmol/L (136-145)
[2020-03-21 01:57] VITALS: BP 126/59; PULSE 47; RESP 16; O2SAT 97
[2020-03-21 03:40] VITALS: BP 128/68; PULSE 58; RESP 16; O2SAT 98
== END 2020-03-21 03:40 | disposition home or self-care (01) ==
PROVIDERS: Emergency Provider Emergency Medicine; PCP Nurse Practitioner Family
DX: G43.909 Migraine, unspecified, not intractable, without status migrainosus (principal); R20.2 Paresthesia of skin; M62.838 Other muscle spasm; R07.89 Other chest pain; I25.10 Atherosclerotic heart disease of native coronary artery without angina pectoris; I10 Essential (primary) hypertension; J44.9 Chronic obstructive pulmonary disease, unspecified; F17.200 Nicotine dependence, unspecified, uncomplicated; Z79.02 Long term (current) use of antithrombotics/antiplatelets; Z79.899 Other long term (current) drug therapy; Z86.73 Personal history of transient ischemic attack (TIA), and cerebral infarction without residual deficits
CPT/HCPCS: 70450; 71045; 80048; 84484; 85025; 93005; 96374; 96375; 99282; J7030

== ENCOUNTER → 2020-05-01 07:47 | Outpatient (CLI) | payer MEDICARE, MEDICAID, SELFPAY ==
--- NOTE | 2020-05-01 07:48 | CT_ITS ---
STUDY: LOW DOSE CT LUNG CANCER SCREENING REASON FOR EXAM: Female, 64 years old. LUNG SCREEN, SMOKER X 40+YRS- 1.5-2 PPD, NON-SMOKER X 7 MONTHS RADIATION DOSAGE (If Supplied By Facility): CTDIvol = ( 2.01 ) mGy, DLP = ( 67.96 ) mGycm TECHNIQUE: No contrast was administered. Low dose technique was utilized (average mAS-38 and kVp 120). 1.25 mm axial source images with a slice interval of 1.25-mm were reconstructed in lung windows. 2.5 mm axial source images with a slice interval of 2.5-mm were reconstructed in lung windows. 5.0 mm axial source images with a slice interval of 5.0-mm were reconstructed in soft tissue windows. Nodule measured using lung windows on PACS and/or independent workstation with automated measurement of minimum and maximum diameter. Nodule measurement reported as average diameter rounded to the nearest whole number. Growth is defined as an increase ins size of greater than 1.5 mm. COMPARISON: Comparison is made with prior study dated 05/16/2019. NODULES: 7 mm noncalcified solid nodule in the peripheral lateral anterior aspect of the right upper lobe. This is seen on axial image #116. This is essentially unchanged. Stable 2.8 mm well-defined nodule in the lateral aspect of the left lower lobe as seen on axial image #182. Emphysema: Diffuse emphysematous changes worse in the upper lobes with centrilobular changes and scarring at both lung apices. Endobronchial lesion: None Aorta: Mild calcific plaque formation. Coronary arteries: Coronary artery calcification. Heart: Unremarkable CT/Low Dose CT Lung Screening IMPRESSION: Lung-RADS category 2 - Continue annual screening with LDCT in 12 months. IMPORTANT NOTES FOR USE: ACR Lung-RADS Version 1.0 Assessment Categories Release Date: September 23, 2013 Category: Coded 0-4 bases on nodule(s) with highest degree of suspicion. Negative screen is defined as categories 1 and 2; a positive screen is defined as categories 3 and 4. Category 3 and 4A nodules that are unchanged on interval CT should be coded as category 2, and individuals returned to screening in 12 months. Category 4X: Category 3 or 4 nodules with additional imaging findings that increase the suspicion of lung cancer, such as spiculation, GGN that doubles in size in 1 year, enlarged lymph notes, etc. Category Modifiers: S (significant finding unrelated to lung cancer) and C (prior history of treated lung cancer) may be added to the 0-4 Lung-RADS Electronically Signed: Oskar Castillo, at 10:06 EST , Service support ,
== END ==
PROVIDERS: Referring Provider Nurse Practitioner Acute Care; Visit Provider Nurse Practitioner Acute Care
DX: Z12.2 Encounter for screening for malignant neoplasm of respiratory organs (principal); F17.210 Nicotine dependence, cigarettes, uncomplicated
CPT/HCPCS: G0297

== ENCOUNTER → 2020-05-05 16:22 | Outpatient (CLI) | payer MEDICARE, MEDICAID, SELFPAY ==
[2020-05-05 18:04] LABS: Vitamin D,25 Hydroxy 70.5 ng/mL
[2020-05-05 18:05] LABS: T4 Free Direct 1.33 ng/dL (0.76-1.46); Thyroid Stim Hormone (TSH) 0.88 uIU/mL (0.358-3.74)
== END ==
PROVIDERS: Visit Provider Family Medicine
DX: E03.9 Hypothyroidism, unspecified (principal); E55.9 Vitamin D deficiency, unspecified
CPT/HCPCS: 36415; 82306; 84439; 84443

== ENCOUNTER → 2020-05-06 14:46 | Outpatient (CLI) | payer MEDICARE, MEDICAID, SELFPAY ==
[2020-05-06 14:59] LABS: Absolute Lymphocyte Count 1.16 X10^3/uL (0.83-4.51); Absolute Neutrophil Count 3.1 X10^3/uL (2.0-7.7); Basophil# 0.04 X10^3/uL; Basophil% 0.9 % (0-1); Eosinophil# 0.13 X10^3/uL; Eosinophils% 2.8 % (0-5); Hematocrit 45.1 % (37-47); Hemoglobin 14.2 g/dL (12.0-15.0); Lymphocyte # 1.16 X10^3/ul (4.0); Lymphocyte % 24.7 % (19-41); Mean Corp Hgb Conc 31.5 g/dL (32-36); Mean Corpuscular Hgb 29.6 pg (27.0-32.0); Mean Corpuscular Volume 94.2 fL (81-99); Mean Platelet Vol. 8.6 fl (6.2-12.0); Monocyte# 0.29 X10^3/uL; Monocyte% 6.2 % (0-10); NRBC Flagged by Analyzer 0 % (0-5); Neutrophil # 3.06 X10^3/uL (2.7-7.7); Neutrophil % 65.2 % (47-70); Platelet Count 201 K/mm3 (150-450); RBC Distribution Width SD 45.2 fl (35.1-43.9); Red Blood Count 4.79 M/mm3 (4.2-5.4); White Blood Count 4.7 K/mm3 (4.4-11.0)
[2020-05-06 15:14] LABS: ALB/GLOB Ratio 1.1 RATIO (0.9-2.4); AST(SGOT) 27 U/L (15-37); Alanine Aminotransfer ALT/SGPT 38 U/L (13-56); Albumin, Serum 3.9 g/dL (3.2-5.0); Alkaline Phosphatase 77 U/L (45-117); Anion Gap 4 (5-15); BUN 15 mg/dL (7-18); BUN/Creat Ratio 14.3 RATIO (10-20); Calcium,Total 9.5 mg/dL (8.5-10.1); Chloride 106 mmol/L (98-107); Creatinine, Serum 1.05 mg/dL (0.55-1.02); EST Glomerular Filtration Rate 56 mL/min (>60); Est Glom Filt Rate - Afr Amer 68 mL/min (>60); Globulin 3.7 g/dL (2.2-4.2); Glucose 98 mg/dL (74-106); Magnesium 2.2 mg/dL (1.6-2.6); Potassium 3.7 mmol/L (3.5-5.1); Protein, Total 7.6 g/dL (6.4-8.2); Sodium Level 138 mmol/L (136-145)
== END ==
PROVIDERS: Visit Provider Family Medicine
DX: I10 Essential (primary) hypertension (principal); G25.0 Essential tremor
CPT/HCPCS: 36415; 80053; 83735; 85025

== ENCOUNTER 2020-06-04 16:55 | Emergency (ER) | payer MEDICARE, SELFPAY ==
[2020-05-12 12:32] VITALS: BMI 20.2
[2020-06-04 16:56] VITALS: BP 140/69; PULSE 68; RESP 22; TEMP 36.6; O2SAT 100; BMI 20.6
[2020-06-04 16:58] VITALS: BP 140/69; PULSE 68; RESP 22; TEMP 36.6; O2SAT 100
--- NOTE | 2020-06-04 17:04 | CT_ITS ---
STUDY: CT ABDOMEN AND PELVIS WITHOUT CONTRAST REASON FOR EXAM: Female, 64 years old. Right flank pain for one week RADIATION DOSAGE (If Supplied By Facility): CTDIvol = ( 6.05 ) mGy, DLP = ( 278.21 ) mGycm TECHNIQUE: Transaxial images were obtained from the dome of the diaphragm to the symphysis pubis without oral contrast, and without intravenous contrast. Sagittal and coronal images were reconstructed. Individualized dose optimization techniques were used for this CT. COMPARISON: 22 January 2019 FINDINGS: Lung bases are severely emphysematous. Inferior mediastinal contents are normal. There are multiple simple hepatic cysts as shown on prior CT. There is no biliary dilation or cirrhosis. Gallbladder is normal. Spleen, pancreas are normal. There is no hydronephrosis. There is a 3 mm stone in the right lower pole calyx. There are no ureteral or bladder stones. There is no intra-abdominal free fluid, gas or fluid collections. There is no intestinal obstruction. Appendix is not seen. Osseous structures are intact. Appearance is stable since prior. CT/Abdomen/Pelvis without Cont IMPRESSION: 1. No acute findings. 2. Stable exam. 3. 3 mm right lower pole nonobstructing stone. Electronically Signed: Dusty Aragon, at 17:53 EST Tel , Service support ,
--- NOTE | 2020-06-04 17:08 | ED.VIS.GEN ---
History of Present Illness Chief Complaint: Flank Pain Informant: Patient Onset: Days Context: Gradual Onset Timing: Intermittent Current Severity: Moderate Maximum Severity: Moderate Narrative: Patient is a 64-year-old female with medical history significant for COPD and hypertension who presents to the emergency department with right-sided flank pain. Patient states has been having the pain intermittently for 3 months. However, over the past few days is gotten worse. She is begun to have some hematuria. She has been mildly nauseated without vomiting. She states she does have a history of a remote kidney stone, but never required lithotripsy or stenting. She is not taken anything for her pain. She denies any fevers or chills. She denies any frequency urgency. She states that she took a long time to seek care because she lost both of her parents in February. Prior similar symptoms: No Recent Illness/Hospitalization: No Past Medical History - Allergies and Home Meds Allergies/Adverse Reactions: Allergies hydrocodone bitartrate [From Vicodin] Allergy (Verified 06/04/20 17:05) HALLUCINATES HALLUCINATES fish derived Adverse Reaction (Verified 06/04/20 17:05) Anaphylaxis morphine Adverse Reaction (Verified 06/04/20 17:05) HALLUCINATES HALLUCINATES [facility] - Prior records reviewed: Yes Past Medical History: - - COPD, hypertension, prior TIA Surgical History: cataract - Bilateral, - - Left shoulder surgery for frozen shoulder. Smoking Status: Former smoker - Family History Paternal Family History: Family History (Last Reviewed 05/12/20 @ 12:35 by Yamile Domínguez) Mother Diabetes Heart disease Hypertension High cholesterol Father Heart disease Hypertension High cholesterol CVA (cerebral vascular accident) Family History: Reports: No pertinent history Maternal Family History: Family History (Last Reviewed 05/12/20 @ 12:35 by Yamile Domínguez) Mother Diabetes Heart disease Hypertension High cholesterol Father Heart disease Hypertension High cholesterol CVA (cerebral vascular accident) Family History: Reports: No pertinent history Review of Systems General: Denies: Chills, Fever, Sweats Eyes: Denies: Visual changes - bilaterally, Diplopia ENT: Denies: Rhinorrhea, Sore throat Cardiovascular: Denies: Chest pain, Palpitations Respiratory: Denies: Dyspnea, Cough, Dyspnea on exertion Gastrointestinal: Denies: Abdominal pain, Nausea, Vomiting, Diarrhea, Melena, Hematochezia Genitourinary: Reports: Hematuria. Denies: Dysuria, Frequency Musculoskeletal: Reports: Back pain. Denies: Extremity Pain Skin: Denies: Rash, Wounds Neurological: Denies: Headache, Weakness, Numbness Physical Exam Vital Signs/Narrative: Vital Signs Temp Pulse Resp BP Pulse Ox 06/04/20 16:56 97.9 F 68 22 H 140/69 H 100 Inital Vital Signs reviewed: Yes General: Well nourished, Well developed, No Acute Distress Head: Normocephalic, Atraumatic Eyes: Perrl, EOMI ENT: Moist mucous membranes, No rhinorrhea Neck: Supple, Nontender Cardiovascular: Regular rate, Regular rhythm, No murmurs Respiratory: No distress, CTA bilaterally, Chest nontender Abdomen: Soft, Nontender, Nondistended, Normal bowel sounds Back: Nontender, Normal Inspection Extremities: Nontender, No edema Skin: Normal color, No rash Neurological: Alert, Oriented x3, Cranial nerves II-XII grossly intact, Normal Strength, Normal Sensation Psychological: Normal affect, Normal Mood Diagnostic/Tx/Re-eval Clinical Impression(s) from Imaging Studies Abdomen/Pelvis CT 06/04/20 17:04 IMPRESSION: 1. No acute findings. 2. Stable exam. 3. 3 mm right lower pole nonobstructing stone. Electronically Signed: Dusty Aragon, at 17:53 EST Tel , Service support , Abnormal Lab Results 06/04/20 06/04/20 06/04/20 17:10 17:15 17:15 WBC 4.3 L RBC 4.39 Hgb 13.9 Hct 41.4 MCV 94.3 MCH 31.7 MCHC 33.6 RDW Std Deviation 43.9 RDW Coeff of Keo 13.0 Plt Count 198 MPV 8.9 Immature Gran % (Auto) 0.500 Neut % (Auto) 60.1 Lymph % (Auto) 28.6 [place] % (Auto) 7.6 Eos % (Auto) 2.5 Baso % (Auto) 0.7 Absolute Neuts (auto) 2.6 Absolute Lymphs (auto) 1.24 Nucleated RBC % 0 Sodium 140 Potassium 3.6 Chloride 107 Carbon Dioxide 30.0 Anion Gap 3 L BUN 14 Creatinine 0.96 Estim Creat Clear Calc 56.50 Est GFR (MDRD) Af Amer 75 Est GFR (MDRD) Non-Af 62 BUN/Creatinine Ratio 14.6 Glucose 79 Calcium 8.6 Urine Color Yellow Urine Clarity Clear Urine pH 5.0 Ur Specific [place] 1.025 Urine Protein Negative Urine Glucose (UA) Normal Urine Ketones Negative Urine Occult Blood Negative Urine Nitrite Negative Urine Bilirubin Negative Urine Urobilinogen 1 H Ur Leukocyte Esterase 25 H Urine RBC 0 SEEN Urine WBC 0-5 SEEN Ur Squamous Epith Cells 0-5 SEEN Urine Bacteria 0 SEEN Urine Mucus 0 SEEN - Medical Decision Making The patient presents with intermittent right flank pain and then had hematuria today. She does have a history of stones, but never required surgery or lithotripsy. She has no rash. She has minimal CVA tenderness. Metabolic work-up was pursued and was unremarkable. Urine does not show evidence of infection or blood. CT does show a 3 mm stone within the right kidney, but no dilation of the tract. Not sure if the patient recently passed a stone, but there is no dangerous process. At this point, I do feel that she is safe for outpatient follow-up. She is comfortable with this plan of care. Impression 1. Right flank pain ED Disposition - Plan for ED Patient: Instructions: ED Flank Pain, Uncertain Cause [facility] -
[2020-06-04] MEDS: Ondansetron 4 MG/2 ML Vial IV (17:19)
[2020-06-04] MEDS: 0.9% Normal Saline 1,000 ML 250 ML IV (17:20)
[2020-06-04 17:31] LABS: Bacteria 0 SEEN /hpf (None Seen); Mucous, Urine 0 SEEN /hpf (<or=2+); Red Blood Cells-Urine 0 SEEN /hpf (0-5)
[2020-06-04 17:36] LABS: Absolute Lymphocyte Count 1.24 X10^3/uL (0.83-4.51); Absolute Neutrophil Count 2.6 X10^3/uL (2.0-7.7); Basophil# 0.03 X10^3/uL; Basophil% 0.7 % (0-1); Eosinophil# 0.11 X10^3/uL; Eosinophils% 2.5 % (0-5); Hematocrit 41.4 % (37-47); Hemoglobin 13.9 g/dL (12.0-15.0); Lymphocyte # 1.24 X10^3/ul (4.0); Lymphocyte % 28.6 % (19-41); Mean Corp Hgb Conc 33.6 g/dL (32-36); Mean Corpuscular Hgb 31.7 pg (27.0-32.0); Mean Corpuscular Volume 94.3 fL (81-99); Mean Platelet Vol. 8.9 fl (6.2-12.0); Monocyte# 0.33 X10^3/uL; Monocyte% 7.6 % (0-10); NRBC Flagged by Analyzer 0 % (0-5); Neutrophil % 60.1 % (47-70); Platelet Count 198 K/mm3 (150-450); RBC Distribution Width SD 43.9 fl (35.1-43.9); Red Blood Count 4.39 M/mm3 (4.2-5.4); White Blood Count 4.3 K/mm3 (4.4-11.0)
[2020-06-04 17:37] LABS: POSITIVE COUNT NO; POSITIVE DIFFERENTIAL NO; POSITIVE MORPHOLOGY NO
[2020-06-04 17:39] LABS: Color, Urine Yellow (Yellow); Glucose, Dipstick Normal (Normal); Ketone-Dipstick Negative (Negative); Leukocyte Esterase-Dipstick 25 /ul (Negative); Nitrite-Dipstick Negative (Negative); Occult Blood-Urine Negative /ul (Negative); Protein-Dipstick Negative (Negative); Specific Gravity, Urine 1.025 (1.002-1.030); Urine Bilirubin Dipstick Negative (Negative); Urine Clarity Clear (Clear); Urine Urobilinogen 1 mg/dl (Normal)
[2020-06-04 17:44] LABS: Anion Gap 3 (5-15); BUN 14 mg/dL (7-18); BUN/Creat Ratio 14.6 RATIO (10-20); Calcium,Total 8.6 mg/dL (8.5-10.1); Chloride 107 mmol/L (98-107); Creatinine, Serum 0.96 mg/dL (0.55-1.02); EST Glomerular Filtration Rate 62 mL/min (>60); Est Glom Filt Rate - Afr Amer 75 mL/min (>60); Glucose 79 mg/dL (74-106); Potassium 3.6 mmol/L (3.5-5.1); Sodium Level 140 mmol/L (136-145)
[2020-06-04 17:50] LABS: Squamous Epithelial Cells - UA 0-5 SEEN /hpf (5-10); White Blood Cells 0-5 SEEN /hpf (0-5)
[2020-06-04 18:16] VITALS: BP 144/70; PULSE 70; RESP 15; TEMP 36.9; O2SAT 99
== END 2020-06-04 18:19 | disposition home or self-care (01) ==
LOC: ED 17:46
PROVIDERS: Emergency Provider Emergency Medicine
DX: R10.9 Unspecified abdominal pain (principal); I10 Essential (primary) hypertension; J44.9 Chronic obstructive pulmonary disease, unspecified; Z87.442 Personal history of urinary calculi; Z87.891 Personal history of nicotine dependence; Z79.02 Long term (current) use of antithrombotics/antiplatelets; Z79.899 Other long term (current) drug therapy; Z86.73 Personal history of transient ischemic attack (TIA), and cerebral infarction without residual deficits
CPT/HCPCS: 74176; 80048; 81001; 85025; 96361; 96374; 99283; J2405

== ENCOUNTER 2020-07-03 16:26 | Emergency (ER) | payer MEDICARE, MEDICAID, SELFPAY ==
[2020-07-03 16:27] VITALS: BP 133/71; PULSE 68; RESP 18; TEMP 36.2; O2SAT 95; BMI 21.6
--- NOTE | 2020-07-03 17:07 | ED.DCSUM_ITS ---
History of Present Illness Chief Complaint: Diarrhea Informant: Patient Onset: Today Current Severity: Mild Maximum Severity: Moderate Narrative: Patient presents with complaint of abdominal cramping and diarrhea. She states this afternoon she had 3 episodes of diarrhea in 15 minutes. She denies blood in the stool. She has some mid abdominal cramping and states she feels weak and shaky. - Past Medical History (1) Anxiety disorder Status: Chronic (2) CAD (coronary artery disease) Status: Chronic (3) COPD (chronic obstructive pulmonary disease) Status: Chronic (4) HTN (hypertension) Status: Chronic (5) History of CVA (cerebrovascular accident) Status: Chronic Comment: 11/2011 Past Medical History - Allergies and Home Meds Allergies/Adverse Reactions: Allergies hydrocodone bitartrate [From Vicodin] Allergy (Verified 07/03/20 16:29) HALLUCINATES HALLUCINATES fish derived Adverse Reaction (Verified 07/03/20 16:29) Anaphylaxis morphine Adverse Reaction (Verified 07/03/20 16:29) HALLUCINATES HALLUCINATES Primary Care Physician: [facility] [Primary Care Provider] - Prior records reviewed: Yes Surgical History: cataract - Bilateral, - - Left shoulder surgery for frozen shoulder. Lives: Spouse/ Significant Other Smoking Status: Former smoker - Family History Paternal Family History: Family History (Last Reviewed 05/12/20 @ 12:35 by Yamile Domínguez) Mother Diabetes Heart disease Hypertension High cholesterol Father Heart disease Hypertension High cholesterol CVA (cerebral vascular accident) Family History: Reports: No pertinent history Maternal Family History: Family History (Last Reviewed 05/12/20 @ 12:35 by Yamile Domínguez) Mother Diabetes Heart disease Hypertension High cholesterol Father Heart disease Hypertension High cholesterol CVA (cerebral vascular accident) Family History: Reports: No pertinent history Review of Systems General: Denies: Chills, Fever Eyes: Denies: Visual changes - bilaterally ENT: Denies: Bilateral ear pain Cardiovascular: Denies: Chest pain Respiratory: Denies: Dyspnea, Cough Gastrointestinal: Reports: Abdominal pain, Diarrhea. Denies: Vomiting Genitourinary: Denies: Dysuria, Frequency Musculoskeletal: Denies: Swelling, Extremity Pain Skin: Denies: Rash Neurological: Denies: Headache Hematologic: Denies: Easy bruising, Easy bleeding Allergy: Denies: Uticaria Physical Exam Vital Signs/Narrative: Vital Signs Temp Pulse Resp BP Pulse Ox 07/03/20 16:27 97.2 F L 68 18 133/71 H 95 Inital Vital Signs reviewed: Yes General: Well nourished, Well developed Head: Normocephalic Neck: Supple Cardiovascular: Regular rate, Regular rhythm Respiratory: No distress, CTA bilaterally Abdomen: Soft, Tender - Mild periumbilical tenderness, Hyperactive bowel sounds. Negative for: Guarding, Rebound tenderness Extremities: Nontender Skin: Normal color Neurological: Alert, Oriented x3 Psychological: Normal affect Diagnostic/Tx/Re-eval Laboratory Results 07/03/20 07/03/20 07/03/20 16:40 16:40 18:40 WBC 5.1 RBC 4.58 Hgb 13.9 Hct 42.9 MCV 93.7 MCH 30.3 MCHC 32.4 RDW Std Deviation 44.2 H RDW Coeff of Keo 12.8 Plt Count 217 MPV 9.2 Immature Gran % (Auto) 0.200 Neut % (Auto) 71.9 H Lymph % (Auto) 19.0 [place] % (Auto) 6.5 Eos % (Auto) 1.6 Baso % (Auto) 0.8 Absolute Neuts (auto) 3.7 Absolute Lymphs (auto) 0.97 Nucleated RBC % 0 Sodium 140 Potassium 3.9 Chloride 107 Carbon Dioxide 31.0 Anion Gap 2 L BUN 15 Creatinine 1.02 Estim Creat Clear Calc 52.85 Est GFR (MDRD) Af Amer 70 Est GFR (MDRD) Non-Af 58 L BUN/Creatinine Ratio 14.7 Glucose 77 Calcium 9.0 Urine Color Yellow Urine Clarity Clear Urine pH 8.0 Ur Specific [place] 1.010 Urine Protein Negative Urine Glucose (UA) Normal Urine Ketones Negative Urine Occult Blood Negative Urine Nitrite Negative Urine Bilirubin Negative Urine Urobilinogen Normal Ur Leukocyte Esterase Negative Urine RBC 0 SEEN Urine WBC 0 SEEN Ur Squamous Epith Cells 0 SEEN Urine Bacteria 0 SEEN Urine Mucus 0 SEEN - Medical Decision Making Patient was given IV fluids as well as p.o. Bentyl. Repeat evaluation she does feel somewhat improved. She states the spasms in her abdomen were significantly improved but now starting to pick back up again. Advised that blood work is all unremarkable. Her abdominal exam is unremarkable I do not think imaging is needed at this time. She began a prescription for Bentyl and will follow bland diet through the weekend. She is given return instructions. ED Disposition - Plan for ED Patient: Disposition: Home or Assisted Living Diagnosis: Diarrhea Instructions: ED Diarrhea, Unknown Cause Prescriptions: Dicyclomine HCl [Bentyl] 20 mg PO TIDAC PRN #20 cap PRN Reason: Cramp Transmission Status: Pending to [facility]/pharmacy #[id number] [facility] Care [facility] - 1 Week if not improving
[2020-07-03 17:14] LABS: Absolute Lymphocyte Count 0.97 X10^3/uL (0.83-4.51); Absolute Neutrophil Count 3.7 X10^3/uL (2.0-7.7); Basophil# 0.04 X10^3/uL; Basophil% 0.8 % (0-1); Eosinophil# 0.08 X10^3/uL; Eosinophils% 1.6 % (0-5); Hematocrit 42.9 % (37-47); Hemoglobin 13.9 g/dL (12.0-15.0); Lymphocyte # 0.97 X10^3/ul (4.0); Mean Corp Hgb Conc 32.4 g/dL (32-36); Mean Corpuscular Hgb 30.3 pg (27.0-32.0); Mean Corpuscular Volume 93.7 fL (81-99); Mean Platelet Vol. 9.2 fl (6.2-12.0); Monocyte# 0.33 X10^3/uL; Monocyte% 6.5 % (0-10); NRBC Flagged by Analyzer 0 % (0-5); Neutrophil # 3.67 X10^3/uL (2.7-7.7); Neutrophil % 71.9 % (47-70); Platelet Count 217 K/mm3 (150-450); RBC Distribution Width CV 12.8 % (11.6-14.6); RBC Distribution Width SD 44.2 fl (35.1-43.9); Red Blood Count 4.58 M/mm3 (4.2-5.4); White Blood Count 5.1 K/mm3 (4.4-11.0)
[2020-07-03 17:22] LABS: Anion Gap 2 (5-15); BUN 15 mg/dL (7-18); BUN/Creat Ratio 14.7 RATIO (10-20); Chloride 107 mmol/L (98-107); Creatinine, Serum 1.02 mg/dL (0.55-1.02); EST Glomerular Filtration Rate 58 mL/min (>60); Est Glom Filt Rate - Afr Amer 70 mL/min (>60); Estimated Creatinine Clearance 52.85 ml/min; Glucose 77 mg/dL (74-106); Potassium 3.9 mmol/L (3.5-5.1); Sodium Level 140 mmol/L (136-145)
[2020-07-03] MEDS: Dicyclomine 10 MG Capsule 20 MG PO (17:26)
[2020-07-03 18:43] VITALS: BP 146/71; PULSE 51; RESP 16
[2020-07-03 18:46] LABS: Bacteria 0 SEEN /hpf (None Seen); Mucous, Urine 0 SEEN /hpf (<or=2+); Red Blood Cells-Urine 0 SEEN /hpf (0-5); Squamous Epithelial Cells - UA 0 SEEN /hpf (5-10); White Blood Cells 0 SEEN /hpf (0-5)
[2020-07-03 18:54] LABS: Color, Urine Yellow (Yellow); Glucose, Dipstick Normal (Normal); Ketone-Dipstick Negative (Negative); Leukocyte Esterase-Dipstick Negative /ul (Negative); Nitrite-Dipstick Negative (Negative); Occult Blood-Urine Negative /ul (Negative); Protein-Dipstick Negative (Negative); Urine Bilirubin Dipstick Negative (Negative); Urine Clarity Clear (Clear); Urine Urobilinogen Normal (Normal)
== END 2020-07-03 19:39 | disposition home or self-care (01) ==
PROVIDERS: Emergency Provider Emergency Medicine
DX: R19.7 Diarrhea, unspecified (principal); I25.10 Atherosclerotic heart disease of native coronary artery without angina pectoris; I10 Essential (primary) hypertension; J44.9 Chronic obstructive pulmonary disease, unspecified; Z79.02 Long term (current) use of antithrombotics/antiplatelets; Z79.899 Other long term (current) drug therapy; Z87.891 Personal history of nicotine dependence; Z86.73 Personal history of transient ischemic attack (TIA), and cerebral infarction without residual deficits
CPT/HCPCS: 80048; 81001; 85025; 96360; 99284; J7040; A4216

== ENCOUNTER 2020-07-15 14:25 | Emergency (ER) | payer MEDICARE, MEDICAID, SELFPAY ==
[2020-07-15 14:25] VITALS: BP 149/83; PULSE 75; RESP 16; TEMP 35.6; O2SAT 96
[2020-07-15 14:26] VITALS: BP 149/83; PULSE 75; RESP 16; TEMP 35.6; O2SAT 95; BMI 21.6
--- NOTE | 2020-07-15 14:34 | ED.VIS.GEN ---
History of Present Illness Chief Complaint: Upper Extremity Injury Informant: Patient Onset: Yesterday Context: Sudden Onset Timing: Continuous Quality: Pain Location: PIP joint left ring finger Current Severity: Mild Maximum Severity: Moderate Worsened by: Movement and palpation Relieved by: Nothing Associated Symptoms: No paresthesia, anesthesia or weakness Narrative: She is a 65-year-old [id number] woman who presents with injury to her left ring finger. This occurred yesterday. She jammed it and it went between 2 pieces of wood. She localized the pain to the PIP joint of left ring finger. She is right-hand dominant. She reports pain with movement. She is concerned she fractured her finger. She has no history of rheumatoid arthritis. She did not note any injury to the skin/wound. Prior similar symptoms: No Recent Illness/Hospitalization: No - Past Medical History (1) Anxiety disorder Status: Chronic (2) Bronchitis Status: Chronic (3) COPD (chronic obstructive pulmonary disease) Status: Chronic (4) HTN (hypertension) Status: Chronic (5) History of CVA (cerebrovascular accident) Status: Chronic Comment: 11/2011 (6) 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 Status: Chronic (7) Tobacco abuse Status: Resolved Comment: 1 pack/day x 40 years, Quit July 2019 Annual low-dose CT screening due March Past Medical History - Allergies and Home Meds Allergies/Adverse Reactions: Allergies hydrocodone bitartrate [From Vicodin] Allergy (Verified 07/03/20 16:29) HALLUCINATES HALLUCINATES fish derived Adverse Reaction (Verified 07/03/20 16:29) Anaphylaxis morphine Adverse Reaction (Verified 07/03/20 16:29) HALLUCINATES HALLUCINATES [facility] - Prior records reviewed: Yes Surgical History: cataract - Bilateral, - - Left shoulder surgery for frozen shoulder. Lives: Alone Smoking Status: Former smoker Alcohol: None Drugs: None - Family History Paternal Family History: Family History (Last Reviewed 05/12/20 @ 12:35 by Yamile Domínguez) Mother Diabetes Heart disease Hypertension High cholesterol Father Heart disease Hypertension High cholesterol CVA (cerebral vascular accident) Family History: Reports: No pertinent history Maternal Family History: Family History (Last Reviewed 05/12/20 @ 12:35 by Yamile Domínguez) Mother Diabetes Heart disease Hypertension High cholesterol Father Heart disease Hypertension High cholesterol CVA (cerebral vascular accident) Family History: Reports: No pertinent history Review of Systems Gastrointestinal: Denies: Nausea, Vomiting Musculoskeletal: Reports: Swelling, Extremity Pain. Denies: Myalgias, Arthralgias Skin: Denies: Rash, Wounds Neurological: Denies: Weakness, Parasthesia, Numbness Hematologic: Denies: Easy bruising, Easy bleeding Physical Exam Vital Signs/Narrative: Vital Signs Temp Pulse Resp BP Pulse Ox 07/15/20 14:26 96.1 F L 75 16 149/83 H 95 07/15/20 14:25 96.1 F L 75 16 149/83 H 96 Inital Vital Signs reviewed: Yes General: Well nourished, Well developed, No Acute Distress Head: Normocephalic, Atraumatic Eyes: Perrl, EOMI Cardiovascular: Regular rate, Regular rhythm Respiratory: No distress Extremities: No edema, Tenderness - There is pain to palpation over the PIP joint. There is no laxity of the collateral ligaments with stress testing. There is no pain the patient specifically over the volar surface., - - Flexor digitorum superficialis and flexor digitorum profundus are intact. The extensor commonness tendon is intact. Sensation is intact. There is no subungual hematoma noted.. Negative for: Nontender Neurological: Alert, Oriented x3, Cranial nerves II-XII grossly intact, Normal Strength, Normal Sensation, - - Median, radial and ulnar function intact. Psychological: Normal affect Diagnostic/Tx/Re-eval Chest X-Ray - ED: Read by ED Physician, - - Review x-ray of the finger is negative for fracture, subluxation. There is no soft tissue swelling noted. 07/15/20 14:35 Finger(s) Min 2 Views [RAD] Stat - Medical Decision Making Was obtained to evaluate for strain versus contusion versus fracture. Patient was offered pain medicine, which she declined. ED Disposition - Plan for ED Patient: Disposition: Home or Assisted Living Diagnosis: Sprain of finger of left hand Instructions: ED Finger Sprain [facility] - 10-14 Days if not better Additional Instructions: Take either 3 ibuprofen tablets every 6-8 hours or 2 Aleve every 12 hours for the next 3 to 5 days. Wear aluminum splint for comfort.
--- NOTE | 2020-07-15 14:35 | RAD_ITS ---
STUDY: X-RAY - LEFT HAND, ATTENTION FOURTH FINGER REASON FOR EXAM: Female, 65 years old. FELL YESTERDAY. LEFT RING FINGER PAIN. TECHNIQUE: 3 view(s) of the finger were obtained. COMPARISON: None. FINDINGS: Normal metacarpal head. Normal metacarpophalangeal joint. Normal proximal phalanx. Normal middle phalanx. Normal distal phalanx. Normal proximal interphalangeal joint. Normal distal interphalangeal joint. RAD/Finger(s) Min 2 Views IMPRESSION: Normal x-ray examination of the finger. Electronically Signed: Oskar Castlilo MD at 15:01 EST , Service support ,
[2020-07-15 15:14] VITALS: PULSE 76; RESP 16; O2SAT 98
== END 2020-07-15 15:19 | disposition home or self-care (01) ==
PROVIDERS: Emergency Provider Emergency Medicine
DX: S63.635A Sprain of interphalangeal joint of left ring finger, initial encounter (principal); W23.1XXA Caught, crushed, jammed, or pinched between stationary objects, initial encounter; Y93.9 Activity, unspecified; Y92.9 Unspecified place or not applicable; Y99.9 Unspecified external cause status; I10 Essential (primary) hypertension; J44.9 Chronic obstructive pulmonary disease, unspecified; Z79.899 Other long term (current) drug therapy; Z87.891 Personal history of nicotine dependence; Z86.73 Personal history of transient ischemic attack (TIA), and cerebral infarction without residual deficits
CPT/HCPCS: 73140; 99283

== ENCOUNTER → 2020-08-18 14:38 | Outpatient (CLI) | payer MEDICARE, MEDICAID, SELFPAY ==
--- NOTE | 2020-08-18 14:54 | BI_ITS ---
MAMMOGRAPHY - BILATERAL SCREENING REASON FOR EXAM: Female, 65 years old. Routine annual screening examination. PERTINENT HISTORY: Aunt with breast cancer. Remote left stereotactic breast biopsy. TECHNIQUE: Digital bilateral breast cali (3D mammographic acquisition) in the CC and MLO projections. 2-D mediolateral oblique (MLO) and craniocaudad (CC) views of both breasts were obtained. CAD: Full Field Digital Mammography with Computer Added Detection was performed. COMPARISON: Comparison is made with prior study done 03/02/2017 and 01/29/2016. FINDINGS: Breast Composition: The breasts are heterogeneously dense, which may obscure small masses. There are no dominant masses or suspicious calcifications. No other significant abnormalities are identified. There has been no significant change since the prior study. BI/SCRN MAMM (CAD)W/CALI BILAT IMPRESSION: Stable bilateral screening mammogram. Yearly follow-up mammogram recommended. (A) ASSESSMENT CATEGORY: BIRADS Category 1: Negative. A letter regarding these results will be sent to the patient by the facility within 30 days. Approximately 10% of breast cancers are not detected by mammography. A normal mammogram should not delay biopsy of a clinically suspicious abnormality. [id number] Electronically Signed: Oskar Castillo MD at 19:16 EDT , Service support ,
[2020-08-18 15:23] LABS: Absolute Lymphocyte Count 1.12 X10^3/uL (0.83-4.51); Absolute Neutrophil Count 1.8 X10^3/uL (2.0-7.7); Basophil# 0.05 X10^3/uL; Basophil% 1.5 % (0-1); Eosinophil# 0.12 X10^3/uL; Eosinophils% 3.6 % (0-5); Hematocrit 46.6 % (37-47); Hemoglobin 14.8 g/dL (12.0-15.0); Lymphocyte # 1.12 X10^3/ul (4.0); Lymphocyte % 33.4 % (19-41); Mean Corp Hgb Conc 31.8 g/dL (32-36); Mean Corpuscular Hgb 29.5 pg (27.0-32.0); Mean Platelet Vol. 8.9 fl (6.2-12.0); Monocyte# 0.25 X10^3/uL; Monocyte% 7.5 % (0-10); NRBC Flagged by Analyzer 0 % (0-5); Neutrophil % 53.7 % (47-70); Platelet Count 226 K/mm3 (150-450); RBC Distribution Width SD 44.1 fl (35.1-43.9); Red Blood Count 5.01 M/mm3 (4.2-5.4); White Blood Count 3.4 K/mm3 (4.4-11.0)
[2020-08-18 16:25] LABS: ALB/GLOB Ratio 0.9 RATIO (0.9-2.4); AST(SGOT) 19 U/L (15-37); Alanine Aminotransfer ALT/SGPT 34 U/L (13-56); Albumin, Serum 3.7 g/dL (3.2-5.0); Alkaline Phosphatase 76 U/L (45-117); Anion Gap 4 (5-15); BUN 16 mg/dL (7-18); BUN/Creat Ratio 16.4 RATIO (10-20); Calcium,Total 9.1 mg/dL (8.5-10.1); Chloride 105 mmol/L (98-107); Cholesterol 192 mg/dL (200); Creatinine, Serum 0.98 mg/dL (0.55-1.02); EST Glomerular Filtration Rate 61 mL/min (>60); Est Glom Filt Rate - Afr Amer 74 mL/min (>60); Globulin 3.9 g/dL (2.2-4.2); Glucose 88 mg/dL (74-106); High Density Lipoprotein 84 mg/dL; Potassium 4.1 mmol/L (3.5-5.1); Protein, Total 7.6 g/dL (6.4-8.2); Sodium Level 141 mmol/L (136-145); Thyroid Stim Hormone (TSH) 0.74 uIU/mL (0.358-3.74); Triglycerides 116 mg/dL; Very Low Density Lipoprotein 23 mg/dL (5-40)
== END ==
DX: Z12.31 Encounter for screening mammogram for malignant neoplasm of breast (principal); F33.0 Major depressive disorder, recurrent, mild; E78.2 Mixed hyperlipidemia
CPT/HCPCS: 36415; 77063; 77067; 80053; 80061; 84443; 85025

== ENCOUNTER → 2020-08-20 15:23 | Outpatient (CLI) | payer MEDICARE, MEDICAID, SELFPAY ==
[2020-08-20 17:38] LABS: Erythrocyte Sedimentation Rate 14 mm/hr (0-30)
[2020-08-20 18:11] LABS: Vitamin B12 206 pg/mL (211-911)
[2020-08-20 18:25] LABS: Rheumatoid Factor < 10.0 IU/mL (<15)
[2020-08-22 17:13] LABS: ANTINUCLEAR ANTIBODIES DIRECT Negative (Negative)
== END ==
PROVIDERS: Referring Provider Nurse Practitioner Adult Health; Visit Provider Nurse Practitioner Adult Health
DX: D72.819 Decreased white blood cell count, unspecified (principal)
CPT/HCPCS: 36415; 82607; 82746; 85652; 86038; 86225; 86235; 86431

== ENCOUNTER → 2020-08-27 14:29 | Outpatient (CLI) | payer MEDICARE, MEDICAID, SELFPAY ==
[2020-08-27 17:05] LABS: Absolute Lymphocyte Count 1.29 X10^3/uL (0.83-4.51); Absolute Neutrophil Count 2.4 X10^3/uL (2.0-7.7); Basophil# 0.04 X10^3/uL; Basophil% 0.9 % (0-1); Eosinophil# 0.11 X10^3/uL; Eosinophils% 2.6 % (0-5); Hematocrit 45.1 % (37-47); Hemoglobin 14.2 g/dL (12.0-15.0); Lymphocyte # 1.29 X10^3/ul (4.0); Lymphocyte % 30.6 % (19-41); Mean Corp Hgb Conc 31.5 g/dL (32-36); Mean Corpuscular Volume 95.3 fL (81-99); Mean Platelet Vol. 9.3 fl (6.2-12.0); Monocyte# 0.37 X10^3/uL; Monocyte% 8.8 % (0-10); NRBC Flagged by Analyzer 0 % (0-5); Neutrophil % 56.9 % (47-70); Platelet Count 233 K/mm3 (150-450); RBC Distribution Width CV 13.1 % (11.6-14.6); RBC Distribution Width SD 46.4 fl (35.1-43.9); Red Blood Count 4.73 M/mm3 (4.2-5.4); White Blood Count 4.2 K/mm3 (4.4-11.0)
== END ==
PROVIDERS: Visit Provider Nurse Practitioner Adult Health
DX: D72.819 Decreased white blood cell count, unspecified (principal)
CPT/HCPCS: 36415; 85025

== ENCOUNTER → 2020-10-15 12:44 | Outpatient (CLI) | payer MEDICARE, MEDICAID, SELFPAY ==
[2020-05-12 12:32] VITALS: BMI 20.2
--- NOTE | 2020-10-16 09:51 | PFT ---
INTRODUCTION: The patient is a 65-year-old female that presents for pulmonary function studies secondary to a diagnosis of COPD. Respiratory therapy reports good patient effort. Bronchodilators were used during testing. INTERPRETATION: Forced expiration spirometry demonstrates the presence of a moderate large airways obstructive ventilatory defect. There was no significant response to aerosolized bronchodilators. Spirograms are of good quality but do not plateau indicating slow emptying of the lungs. Body plethysmography was performed and reveals lung volumes to be within normal limits. Diffusing capacity by single breath CO is reduced at 51% of predicted. IMPRESSION: Irreversible moderate large airways obstructive ventilatory defect with symmetric reduction in diffusing capacity.
== END ==
PROVIDERS: Referring Provider Internal Medicine Critical Care Medicine; Visit Provider Internal Medicine Critical Care Medicine
DX: J47.9 Bronchiectasis, uncomplicated (principal)
CPT/HCPCS: 94060; 94726; 94729

== ENCOUNTER 2020-11-03 16:55 | Emergency (ER) | payer MEDICARE, MEDICAID, SELFPAY ==
[2020-10-28 09:45] VITALS: BMI 22.4
[2020-11-03 16:55] VITALS: BP 147/75; PULSE 76; RESP 15; TEMP 36.8; O2SAT 95; BMI 21.6
--- NOTE | 2020-11-03 17:19 | EDS_ITS ---
HPI History of Present Illness Chief Complaint: Dizziness Informant: patient and spouse/S.O. Narrative Narrative: 65-year-old female presents with dizziness. She states for the past 2 weeks she is intermittently felt the room spinning. It is worse when she gets up and moves her head up and down or sideways. For the past couple days it has been more constant. She notes significant nasal congestion due to seasonal allergies. She notes ringing in her ears and when she turns her head feels like there is fluid in her ears. She states she has never had this before. She has not sought treatment for this anywhere else. [facility] Medical History Abdominal pain Anxiety disorder Bronchitis CAD (coronary artery disease) Chest pain COPD (chronic obstructive pulmonary disease) Diaphragm paralysis Fuchs' corneal dystrophy History of cerebrovascular disease History of CVA (cerebrovascular accident) HTN (hypertension) Hypoxia Home Medications atorvastatin 10 mg PO QHS 09/29/17 [History Last Taken 06/12/19] clopidogrel 75 mg PO DAILY 07/07/18 [History Last Taken 06/12/19] albuterol sulfate 90 mcg/actuation aerosol inhaler 2 puff INHALATION Q6H PRN 08/14/18 [History Last Taken 06/12/19] cholecalciferol (vitamin D3) 125 mcg (5,000 unit) capsule 5,000 unit PO DAILY 08/14/18 [History Last Taken 06/12/19] levothyroxine 25 mcg PO DAILY 01/22/19 [History Last Taken 06/12/19] acetaminophen 500 mg PO Q6H PRN PRN #28 tab 06/16/19 [Rx Last Taken Unknown] levocetirizine 5 mg tablet 5 mg PO DAILY 10/31/19 [History Last Taken Unknown] lisinopril 10 mg PO DAILY 03/21/20 [History Last Taken Unknown] fluoxetine 10 mg capsule 10 mg PO DAILY 05/12/20 [History Last Taken Unknown] bupropion HCl 150 mg 24 hr tablet, extended release 150 mg PO QAM 10/28/20 [History Last Taken Unknown] diazepam 5 mg PO Q8 PRN #15 tab 11/03/20 [Rx Last Taken Unknown] fluticasone furoate-vilanterol [Breo Ellipta] 1 inh INHALATION DAILY 11/03/20 [History Last Taken Unknown] fluticasone propionate [24 Hour Allergy Relief] 2 spray INTRANASAL DAILY #16 g 11/03/20 [Rx Last Taken Unknown] Allergy/AdvReac Type Severity Reaction Status Date / Time hydrocodone bitartrate Allergy HALLUCINATE Verified 11/03/20 16:57 [From Vicodin] S fish derived AdvReac Anaphylaxis Verified 11/03/20 16:57 morphine AdvReac HALLUCINATE Verified 11/03/20 16:57 S Family History Mother Diabetes Heart disease Hypertension High cholesterol Father Heart disease Hypertension High cholesterol CVA (cerebral vascular accident) Surgical History History bilateral cataract surgery History left shoulder surgery History of tubal ligation Social History housing: apartment pets and animals: Yes pets and animals: dog(s) Smoking Status: Former smoker quit date: 10/28/19 pack-years: 25 Tobacco: How many years used: 25 second hand exposure: Yes alcohol intake: never substance use type: does not use ROS ROS ED Constitutional Constitutional ED: Denies chills or weight loss Eyes Eyes: Denies change in vision or diplopia ENT ENT ED: Reports rhinorrhea and other Details: Fluid in ears nasal congestion ; Denies ear pain or sore throat Cardiovascular Cardiovascular: Denies chest pain, orthopnea, palpitations or racing heartbeat Respiratory/Chest Respiratory/Chest: Denies cough, dyspnea or orthopnea Gastrointestinal Gastrointestinal: Denies abdominal pain, diarrhea, nausea or vomiting Genitourinary Genitourinary ED: Denies dysuria, hematuria or urinary frequency Musculoskeletal Musculoskeletal: Denies arthralgias or myalgias Integumentary Denies abscess or rash Neurologic Neurologic: Reports other Details: Dizziness ; Denies headache(s) or weakness Psychiatric Psychiatric: Denies anxiety, depression, suicidal ideation or suicidal thoughts Endocrine Endocrinology: Denies polydipsia, polyphagia or polyuria Allergic/Immunologic Allergic/Immunologic ED: Denies mouth swelling, tongue swelling or urticaria EXAM Physical Exam Const Vital Signs: 11/03/20 16:55 11/03/20 17:01 Temperature 98.2 F Temperature Source Temporal Pulse Rate 76 Respiratory Rate 15 Respiratory Effort Normal Respiratory Pattern Normal Blood Pressure 147/75 H Blood Pressure Mean 99 Pulse Ox 95 Oxygen Delivery Method Room Air Positive well nourished and well developed General Appearance ED: well developed HEENT Reports normocephalic, head/scalp atraumatic and moist mucous membranes HEENT Narrative: Patient has fluid behind both tympanic membranes. The tympanic membranes are not erythematous. Patient has turbinate edema and some clear rhinorrhea. Eyes PERRL and EOMs intact bilaterally Eyes Narrative: There is a slight nystagmus to the right Neck no lymphadenopathy, supple and no JVD Resp normal respiratory effort and clear to auscultation bilaterally Cardio regular rate, regular rhythm and no murmurs GI normal to inspection, nondistended, normoactive bowel sounds and non-tender Palpation: soft Back/Spine no CVA tenderness and normal ROM Extremity normal to inspection General Extremety ED: Negative for edema General Extremity: Negative for edema Neuro oriented x3 and CN's II-XII intact bilaterally Neuro Narrative: With the patient keeping her head straight she has normal [id number] and heel holley test. Positive Constanza-Hallpike test Sensorium / Orientation: alert Motor Exam: strength 5/5 throughout Psych mental status grossly normal Mood & Affect: Negative for depressed or tearful Skin no rashes or lesions noted and no wounds MDM MDM MDM Narrative Medical decision making narrative: Patient will be given a shot of Kenalog here and a dose of Valium. Advised her on nasal sprays Valium at home. If not improving should follow-up with ENT. At this point I believe she has a peripheral vertigo. Discharge Plan Triage Chief Complaint: Dizziness ED Provider: Merlin Bae Dx/Rx/DC Orders Clinical Impression: Benign paroxysmal positional vertigo, Acute dysfunction of both eustachian tubes, Acute serous otitis media, Acute seasonal allergic rhinitis Instructions: ED BPV Vertigo Prescriptions: New diazepam [diazepam] 5 MG tablet 5 mg PO Q8 PRN (Reason: Vertigo) Qty: 15 RF: 0 fluticasone propionate [24 Hour Allergy Relief] 50 mcg/actuation spray,suspension 2 spray intranasal DAILY Qty: 16 RF: 0 No Action cholecalciferol (vitamin D3) 5,000 unit capsule 5,000 unit PO DAILY RF: 0 albuterol sulfate [Ventolin HFA] 90 mcg/actuation HFA aerosol inhaler 2 puff INHALATION Q6H PRN (Reason: Asthma) RF: 0 levocetirizine [Allergy Relief (levocetirizin)] 5 mg tablet 5 mg PO DAILY RF: 0 fluoxetine 10 mg capsule 10 mg PO DAILY RF: 0 bupropion HCl 150 mg tablet extended release 24 hr 150 mg PO QAM RF: 0 atorvastatin 40 MG tablet 10 mg PO QHS RF: 0 clopidogrel 75 MG tablet 75 mg PO DAILY RF: 0 levothyroxine 25 tablet 25 mcg PO DAILY RF: 0 acetaminophen 500 MG tablet 500 mg PO Q6H PRN PRN (Reason: Pain Or Fever) Qty: 28 RF: 0 lisinopril 10 MG tablet 10 mg PO DAILY RF: 0 Breo Ellipta 200-25 mcg/dose Blister With Device 1 inh INHALATION DAILY RF: 0 [facility] Referrals: Bird Castellon MD [STAFF PHYSICIAN] - As Needed (if you wish to follow up with an ENT) [facility]] - 3-5 Days if not improving Disposition Disposition: Home, self care
[2020-11-03] MEDS: Triamcinolone Acetonide 40 MG/ML Vial IM (17:29)
[2020-11-03] MEDS: diazePAM 5 MG Tablet PO (17:29)
[2020-11-03 17:43] VITALS: BP 128/83; RESP 16; O2SAT 100
== END 2020-11-03 17:53 | disposition home or self-care (01) ==
LOC: ED 17:34
PROVIDERS: Emergency Provider Emergency Medicine
DX: H81.10 Benign paroxysmal vertigo, unspecified ear (principal); H69.83 Other specified disorders of Eustachian tube, bilateral; H65.00 Acute serous otitis media, unspecified ear; J30.2 Other seasonal allergic rhinitis; I25.10 Atherosclerotic heart disease of native coronary artery without angina pectoris; I10 Essential (primary) hypertension; J44.9 Chronic obstructive pulmonary disease, unspecified; Z87.891 Personal history of nicotine dependence; Z86.73 Personal history of transient ischemic attack (TIA), and cerebral infarction without residual deficits; Z79.51 Long term (current) use of inhaled steroids; Z79.899 Other long term (current) drug therapy
CPT/HCPCS: 96372; 99282

== ENCOUNTER → 2020-11-11 11:19 | Outpatient (CLI) | payer MEDICARE, MEDICAID, SELFPAY ==
[2020-11-03 16:55] VITALS: BMI 21.6
[2020-11-11 12:12] LABS: Vitamin B12 1966 pg/mL (211-911)
== END ==
PROVIDERS: PCP Nurse Practitioner Adult Health; Referring Provider Nurse Practitioner Adult Health; Visit Provider Nurse Practitioner Adult Health
DX: D51.9 Vitamin B12 deficiency anemia, unspecified (principal)
CPT/HCPCS: 36415; 82607

== ENCOUNTER → 2020-12-10 12:48 | Outpatient (CLI) | payer MEDICARE, MEDICAID, SELFPAY ==
--- NOTE | 2020-12-10 12:54 | MRI_ITS ---
STUDY: MRI BRAIN WITH AND WITHOUT CONTRAST (ATTENTION INTERNAL AUDITORY CANALS - I.A.C.''s) REASON FOR EXAM: Female, 65 years old. ATAXIA TECHNIQUE: Standardized multiplanar fat and water weighted pulse sequences were obtained. 12ML IV DOTAREM was administered for the contrast portion of the examination. COMPARISON: 04/02/2018 FINDINGS: Normal bilateral temporal bones. Normal bilateral internal auditory canals. There is no demonstrated intracanalicular or cisternal vestibular schwannoma (acoustic neuroma). There is no enhancement of the bilateral VIIth or VIIIth cranial nerves. Normal bilateral cochlea, vestibules and semicircular canals. Normal size of the ventricles and extra-axial spaces for the patient''s age. Normal white matter tracts of the supratentorial brain. There is no evidence for recent intracranial ischemia or other cause of cytotoxic edema on diffusion weighted imaging (DWI). Normal bilateral basal ganglia. Normal thalami. Normal flow voids within the major intracranial circulation suggesting patency by spin echo criteria. Normal venous enhancement. There is no enhancing intra-axial or extra-axial abnormality. There is no extra-axial fluid accumulation. Normal sella turcica, pituitary gland, infundibular stalk, optic chiasm and hypothalamus. Normal tectal plate and pineal gland. Normal midbrain, eusebia and medulla. Normal cerebellum. Normal basal cisterns. No demonstrated orbital abnormality, within the constraints of a routine brain study. Normal visualized paranasal sinuses. Normal calvarium and skull base. Normal visualized soft tissue structures. Normal visualized upper cervical spine. MRI/Brain W/WO Contrast IMPRESSION: Normal unenhanced and enhanced MRI of the bilateral internal auditory canals (I.A.C''s). Electronically Signed: Antoine Julien MD at 15:17 EDT Tel , Service support ,
[2020-12-10 13:30] LABS: CREATININE FINGERSTICK 0.9 mg/dL (0.55-1.02); EGFR FINGERSTICK > 60.0000 mL/min (>60)
== END ==
PROVIDERS: Referring Provider Otolaryngology; Visit Provider Otolaryngology
DX: R27.0 Ataxia, unspecified (principal); Z86.73 Personal history of transient ischemic attack (TIA), and cerebral infarction without residual deficits
CPT/HCPCS: 70553; A9575

== ENCOUNTER 2021-01-05 15:41 | Emergency (ER) | payer MEDICARE, MEDICAID, SELFPAY ==
[2021-01-05 15:42] VITALS: BP 132/68; PULSE 76; RESP 15; TEMP 36.7; O2SAT 97
[2021-01-05 15:45] VITALS: BP 132/68; PULSE 76; RESP 15; TEMP 36.7; O2SAT 97
[2021-01-05 16:12] LABS: Bacteria 0 SEEN /hpf (None Seen); Mucous, Urine 0 SEEN /hpf (<or=2+); Red Blood Cells-Urine 0 SEEN /hpf (0-5)
[2021-01-05 16:31] LABS: Color, Urine Yellow (Yellow); Glucose, Dipstick Normal (Normal); Ketone-Dipstick Negative (Negative); Leukocyte Esterase-Dipstick 500 /ul (Negative); Nitrite-Dipstick Negative (Negative); Occult Blood-Urine 10 /ul (Negative); Protein-Dipstick 15 mg/dl (Negative); Urine Bilirubin Dipstick Negative (Negative); Urine Clarity Sl. Cloudy (Clear); Urine Urobilinogen Normal (Normal)
[2021-01-05 16:39] LABS: Squamous Epithelial Cells - UA 0-5 SEEN /hpf (5-10); White Blood Cells 25-50 SEEN /hpf (0-5)
--- NOTE | 2021-01-05 16:55 | EDS_ITS ---
HPI History of Present Illness Chief Complaint: Eye Problem Detail of Chief Complaint: And hematuria Informant: patient Onset/Context/Timing Location: Right Eye Onset: Days Context: Gradual Onset Timing: Continuous Current Severity: Mild Maximum Severity: Mild Associated Symptoms Associated Symptoms - Eyes: Itching History of injury: No Narrative Narrative: 65-year-old female history of a stroke on Plavix. Also history of hypertension high cholesterol. Several day history of a rash around her right eye primarily in the upper lid. No visual change. No trauma. States she has been weeding recently and is concerned that she may have a had an allergic reaction. Also states in the last 2 days she has developed blood when she wipes after urinating. Denies any fever or chills. No abdominal pain. Prior similar symptoms: Yes Recent Illness/H[facility]ization: No [facility] Medical History Abdominal pain Anxiety disorder Bronchitis CAD (coronary artery disease) Chest pain COPD (chronic obstructive pulmonary disease) Diaphragm paralysis Fuchs' corneal dystrophy History of cerebrovascular disease History of CVA (cerebrovascular accident) HTN (hypertension) Hypoxia Home Medications atorvastatin 10 mg PO QHS 09/29/17 [History Last Taken 06/12/19] clopidogrel 75 mg PO DAILY 07/07/18 [History Last Taken 06/12/19] albuterol sulfate 90 mcg/actuation aerosol inhaler 2 puff INHALATION Q6H PRN 08/14/18 [History Last Taken 06/12/19] cholecalciferol (vitamin D3) 125 mcg (5,000 unit) capsule 5,000 unit PO DAILY 08/14/18 [History Last Taken 06/12/19] levothyroxine 25 mcg PO DAILY 01/22/19 [History Last Taken 06/12/19] acetaminophen 500 mg PO Q6H PRN PRN #28 tab 06/16/19 [Rx Last Taken Unknown] levocetirizine 5 mg tablet 5 mg PO DAILY 10/31/19 [History Last Taken Unknown] lisinopril 10 mg PO DAILY 03/21/20 [History Last Taken Unknown] fluoxetine 10 mg capsule 10 mg PO DAILY 05/12/20 [History Last Taken Unknown] bupropion HCl 150 mg 24 hr tablet, extended release 150 mg PO QAM 10/28/20 [History Last Taken Unknown] diazepam 5 mg PO Q8 PRN #15 tab 11/03/20 [Rx Last Taken Unknown] fluticasone propionate [24 Hour Allergy Relief] 2 spray INTRANASAL DAILY #16 g 11/03/20 [Rx Last Taken Unknown] fluticasone furoate 200 mcg-vilanterol 25 mcg/dose inhalation powder 1 inh INHALATION DAILY #60 ea 12/29/20 [Rx Last Taken Unknown] cephalexin 500 mg PO Q6H 7 Days #28 cap 01/05/21 [Rx Last Taken Unknown] Allergy/AdvReac Type Severity Reaction Status Date / Time hydrocodone bitartrate Allergy HALLUCINATE Verified 01/05/21 15:44 [From Vicodin] S fish derived AdvReac Anaphylaxis Verified 01/05/21 15:44 morphine AdvReac HALLUCINATE Verified 01/05/21 15:44 S Family History Mother Diabetes Heart disease Hypertension High cholesterol Father Heart disease Hypertension High cholesterol CVA (cerebral vascular accident) Surgical History History bilateral cataract surgery History left shoulder surgery History of tubal ligation Social History housing: apartment pets and animals: Yes pets and animals: dog(s) Smoking Status: Former smoker quit date: 10/28/19 pack-years: 25 Tobacco: How many years used: 25 second hand exposure: Yes alcohol intake: never substance use type: does not use ROS ROS ED ROS Narrative Denies recent illness. Review of Systems ROS Unobtainable: Denies due to encephalopathy Constitutional Constitutional ED: Denies chills or fever(s) Eyes Eyes: Denies change in vision ENT ENT ED: Denies ear pain Cardiovascular Cardiovascular: Denies chest pain Respiratory/Chest Respiratory/Chest: Denies dyspnea Gastrointestinal Gastrointestinal: Denies abdominal pain, diarrhea, nausea or vomiting Genitourinary Genitourinary ED: Reports hematuria; Denies dysuria Musculoskeletal Musculoskeletal: Denies myalgias Integumentary Denies rash Neurologic Neurologic: Denies headache(s) Psychiatric Psychiatric: Denies depression Endocrine Endocrinology: Denies polyuria Hematologic/Lymphatic Hematologic/Lymphatic: Denies easy bruising Allergic/Immunologic Allergic/Immunologic ED: Denies urticaria EXAM Physical Exam Const Vital Signs: 01/05/21 15:42 01/05/21 15:45 Temperature 98.1 F 98.1 F Temperature Source Temporal Temporal Pulse Rate 76 76 Respiratory Rate 15 15 Blood Pressure 132/68 H 132/68 H Blood Pressure Mean 89 89 Pulse Ox 97 97 Oxygen Delivery Method Room Air Room Air MDM MDM MDM Narrative Medical decision making narrative: UA has for about 50 white cells no bacteria no nitrites and no epithelial cells with her symptoms that you have potentially TIA. Placed on Keflex 4 times daily for a week. Urine culture be sent. Lab Data Attestation: I reviewed the patient's lab results. Labs: Laboratory Results - last 24 hr 01/05/21 16:06 Urine Color Yellow Urine Clarity Sl. Cloudy Urine pH 6.0 Ur Specific [place] 1.020 Urine Protein 15 H Urine Glucose (UA) Normal Urine Ketones Negative Urine Occult Blood 10 H Urine Nitrite Negative Urine Bilirubin Negative Urine Urobilinogen Normal Ur Leukocyte Esterase 500 H Urine RBC 0 SEEN Urine WBC 25-50 SEEN Ur Squamous Epith Cells 0-5 SEEN Urine Bacteria 0 SEEN Urine Mucus 0 SEEN Discharge Plan Triage Chief Complaint: Eye Problem ED Provider: Dustin Pierre Dx/Rx/DC Orders Clinical Impression: Allergic reaction, Cystitis Instructions: ED Contact Dermatitis, ED CYSTITIS Female Adult Prescriptions: New cephalexin 500 mg capsule 500 mg PO Q6H 7 Days Qty: 28 RF: 0 No Action cholecalciferol (vitamin D3) 5,000 unit capsule 5,000 unit PO DAILY RF: 0 albuterol sulfate [Ventolin HFA] 90 mcg/actuation HFA aerosol inhaler 2 puff INHALATION Q6H PRN (Reason: Asthma) RF: 0 levocetirizine [Allergy Relief (levocetirizin)] 5 mg tablet 5 mg PO DAILY RF: 0 fluoxetine 10 mg capsule 10 mg PO DAILY RF: 0 bupropion HCl 150 mg tablet extended release 24 hr 150 mg PO QAM RF: 0 atorvastatin 40 MG tablet 10 mg PO QHS RF: 0 clopidogrel 75 MG tablet 75 mg PO DAILY RF: 0 levothyroxine 25 tablet 25 mcg PO DAILY RF: 0 acetaminophen 500 MG tablet 500 mg PO Q6H PRN PRN (Reason: Pain Or Fever) Qty: 28 RF: 0 lisinopril 10 MG tablet 10 mg PO DAILY RF: 0 diazepam [diazepam] 5 MG tablet 5 mg PO Q8 PRN (Reason: Vertigo) Qty: 15 RF: 0 fluticasone propionate [24 Hour Allergy Relief] 50 mcg/actuation spray,suspension 2 spray intranasal DAILY Qty: 16 RF: 0 Breo Ellipta 200-25 mcg/dose blister with device 1 inh INHALATION DAILY Qty: 60 RF: 5 Primary Care Provider: [facility] Danae Valdez Referrals: [facility] Patel [Primary Care Provider] - 3-5 Days if not improving Activity Restrictions/Additional Instructions: The rash around her right eye appears to be a contact dermatitis from like a poison lucas reaction to something. You can treat this with oral Benadryl. Hydrocortisone cream. This should progressively get better. Cool compresses to decrease the swelling. You also appear to have a urinary tract infection a urine culture was sent. To be started on antibiotic Keflex 4 times a day for 1 week. Follow-up with your doctor if not improving. Disposition Disposition: Home, Self Care
[2021-01-05] MEDS: Cephalexin 250 MG Capsule 500 MG PO (17:04)
[2021-01-05 17:13] VITALS: BP 122/74; PULSE 84; RESP 15; O2SAT 99
== END 2021-01-05 17:15 | disposition home or self-care (01) ==
PROVIDERS: Emergency Provider Emergency Medicine
DX: T78.40XA Allergy, unspecified, initial encounter (principal); X58.XXXA Exposure to other specified factors, initial encounter; N30.91 Cystitis, unspecified with hematuria; I25.10 Atherosclerotic heart disease of native coronary artery without angina pectoris; I10 Essential (primary) hypertension; E78.00 Pure hypercholesterolemia, unspecified; J44.9 Chronic obstructive pulmonary disease, unspecified; Z79.02 Long term (current) use of antithrombotics/antiplatelets; Z79.899 Other long term (current) drug therapy; Z87.891 Personal history of nicotine dependence; Z86.73 Personal history of transient ischemic attack (TIA), and cerebral infarction without residual deficits
CPT/HCPCS: 81001; 87086; 87088; 99283

== ENCOUNTER 2021-01-26 15:38 | Emergency (ER) | payer MEDICARE, MEDICAID, SELFPAY ==
[2021-01-26 15:40] VITALS: BP 122/71; PULSE 81; RESP 16; TEMP 36.1; O2SAT 94; BMI 20.1
--- NOTE | 2021-01-26 15:42 | EKG12_ITS ---
Test Reason : CP Blood Pressure : / mmHG Vent. Rate : 071 BPM Atrial Rate : 071 BPM P-R Int : 162 ms QRS Dur : 070 ms QT Int : 372 ms P-R-T Axes : 079 075 074 degrees QTc Int : 404 ms Normal sinus rhythm Septal infarct , age undetermined Abnormal ECG Confirmed by MERI SHERMAN, SHREYA ([id number]), newspaper photo editor ASHLEY TORRES ([id number]) on 01/27/2021 9:59:55 AM Referred By: Confirmed By:SHREYA JEREZ MD
[2021-01-26 15:56] VITALS: O2SAT 98
[2021-01-26 16:15] LABS: Absolute Lymphocyte Count 1.02 X10^3/uL (0.83-4.51); Absolute Neutrophil Count 3.1 X10^3/uL (2.0-7.7); Basophil# 0.03 X10^3/uL; Basophil% 0.7 % (0-1); Eosinophil# 0.07 X10^3/uL; Eosinophils% 1.5 % (0-5); Hematocrit 43.3 % (37-47); Hemoglobin 14.1 g/dL (12.0-15.0); Lymphocyte # 1.02 X10^3/ul (0.83-4.51); Lymphocyte % 22.6 % (19-41); Mean Corp Hgb Conc 32.6 g/dL (32-36); Mean Corpuscular Hgb 30.3 pg (27.0-32.0); Mean Corpuscular Volume 92.9 fL (81-99); Mean Platelet Vol. 8.7 fl (6.2-12.0); Monocyte% 6.6 % (0-10); NRBC Flagged by Analyzer 0 % (0-5); Neutrophil # 3.09 X10^3/uL (2.7-7.7); Neutrophil % 68.4 % (47-70); Platelet Count 218 K/mm3 (150-450); RBC Distribution Width SD 44.2 fl (35.1-43.9); Red Blood Count 4.66 M/mm3 (4.2-5.4); White Blood Count 4.5 K/mm3 (4.4-11.0)
--- NOTE | 2021-01-26 16:23 | RAD_ITS ---
STUDY: X-RAY CHEST REASON FOR EXAM: Female, 65 years old. chest pain TECHNIQUE: Single AP portable view of the chest. COMPARISON: 03/21/2020 FINDINGS: The lungs are clear and expanded. There is no demonstrated pleural abnormality. Normal size heart. Normal mediastinum and omero. Normal visualized pulmonary arteries. Normal visualized aortic arch and descending thoracic aorta. Normal visualized thoracic spine. Normal visualized ribs, clavicles, and shoulders. There is no demonstrated abnormality of the visualized soft tissue structures of the upper abdomen. RAD/Chest 1 View (Portable) IMPRESSION: Normal x-ray examination of the chest. Electronically Signed: Antoine Julien MD at 16:43 EDT Tel , Service support ,
[2021-01-26 16:33] LABS: Anion Gap 4 (5-15); BUN 17 mg/dL (7-18); BUN/Creat Ratio 14.9 RATIO (10-20); Calcium,Total 9.2 mg/dL (8.5-10.1); Chloride 109 mmol/L (98-107); Creatinine, Serum 1.14 mg/dL (0.55-1.02); EST Glomerular Filtration Rate 51 mL/min (>60); Est Glom Filt Rate - Afr Amer 62 mL/min (>60); Estimated Creatinine Clearance 43.86 ml/min; Glucose 92 mg/dL (74-106); Potassium 3.8 mmol/L (3.5-5.1); Sodium Level 140 mmol/L (136-145); Troponin-I HS 6 pg/mL (3.0-54.0)
--- NOTE | 2021-01-26 16:48 | EDS_ITS ---
HPI History of Present Illness Chief Complaint: Chest Pain Narrative Narrative: 65-year-old female presenting with right lower rib pain. She states this started about 3 days ago after she sneezed. She states it only hurts of the right ribs. It feels relieved by pushing on it. This has been constant for 3 days. She denies lightheadedness, dizziness, dyspepsia, nausea she denies shortness of breath, cough, fever. Patient has history of RI distantly and states he believes she had her last stress test in 2012. She has history of CAD, hypertension, COPD, anxiety, tobacco use. PE Risk Factors: Negative for Recent Travel/Surgery, Recent Immobilization, Prior DVT or PE, Cancer and OCP + Smoking + >/=35 PFSH PFSH Medical History Abdominal pain Anxiety disorder Bronchitis CAD (coronary artery disease) Chest pain COPD (chronic obstructive pulmonary disease) Diaphragm paralysis Fuchs' corneal dystrophy History of cerebrovascular disease History of CVA (cerebrovascular accident) HTN (hypertension) Hypoxia Home Medications atorvastatin 10 mg PO QHS 09/29/17 [History Last Taken 06/12/19] clopidogrel 75 mg PO DAILY 07/07/18 [History Last Taken 06/12/19] albuterol sulfate 90 mcg/actuation aerosol inhaler 2 puff INHALATION Q6H PRN 08/14/18 [History Last Taken 06/12/19] cholecalciferol (vitamin D3) 125 mcg (5,000 unit) capsule 5,000 unit PO DAILY 08/14/18 [History Last Taken 06/12/19] levothyroxine 25 mcg PO DAILY 01/22/19 [History Last Taken 06/12/19] acetaminophen 500 mg PO Q6H PRN PRN #28 tab 06/16/19 [Rx Last Taken Unknown] levocetirizine 5 mg tablet 5 mg PO DAILY 10/31/19 [History Last Taken Unknown] lisinopril 10 mg PO DAILY 03/21/20 [History Last Taken Unknown] bupropion HCl 150 mg 24 hr tablet, extended release 150 mg PO QAM 10/28/20 [History Last Taken Unknown] diazepam 5 mg PO Q8 PRN #15 tab 11/03/20 [Rx Last Taken Unknown] fluticasone furoate 200 mcg-vilanterol 25 mcg/dose inhalation powder 1 inh INHALATION DAILY #60 ea 12/29/20 [Rx Last Taken Unknown] cephalexin 500 mg PO Q6H 7 Days #28 cap 01/05/21 [Rx Last Taken Unknown] Allergy/AdvReac Type Severity Reaction Status Date / Time hydrocodone bitartrate Allergy HALLUCINATE Verified 01/26/21 15:39 [From Vicodin] S fish derived AdvReac Anaphylaxis Verified 01/26/21 15:39 morphine AdvReac HALLUCINATE Verified 01/26/21 15:39 S Family History Mother Diabetes Heart disease Hypertension High cholesterol Father Heart disease Hypertension High cholesterol CVA (cerebral vascular accident) Surgical History History bilateral cataract surgery History left shoulder surgery History of tubal ligation Social History housing: apartment pets and animals: Yes pets and animals: dog(s) Smoking Status: Former smoker quit date: 10/28/19 pack-years: 25 Tobacco: How many years used: 25 second hand exposure: Yes alcohol intake: never substance use type: does not use ROS ROS ED Constitutional Constitutional ED: Denies chills, fever(s) or sweats Eyes Eyes: Denies blurry vision or change in vision ENT ENT ED: Denies rhinorrhea or sore throat Cardiovascular Cardiovascular: Reports chest pain; Denies palpitations or racing heartbeat Respiratory/Chest Respiratory/Chest: Denies cough, dyspnea or sputum Gastrointestinal Gastrointestinal: Denies abdominal pain, diarrhea, nausea or vomiting Genitourinary Genitourinary ED: Denies dysuria or hematuria Musculoskeletal Musculoskeletal: Denies arthralgias, back pain, myalgias or neck pain Integumentary Denies Abrasions or rash Neurologic Neurologic: Denies headache(s) or paresthesias Psychiatric Psychiatric: Denies anxiety or depression EXAM Physical Exam Const Vital Signs: 01/26/21 15:40 01/26/21 15:52 01/26/21 15:56 Temperature 97.0 F L Temperature Source Temporal Pulse Rate 81 Respiratory Rate 16 Respiratory Effort Normal Non-Labored Blood Pressure 122/71 H Blood Pressure Mean 88 Pulse Ox 94 98 Oxygen Delivery Method Room Air Room Air Positive well nourished General Appearance ED: NAD; Negative for pallor HEENT Reports normocephalic, head/scalp atraumatic and moist mucous membranes normocephalic and atraumatic Eyes PERRL and EOMs intact bilaterally Neck no lymphadenopathy and supple Chest Wall inspection of chest normal and palpation of chest normal Resp normal respiratory effort and clear to auscultation bilaterally Auscultation: Negative for rales, rhonchi or wheezes Cardio regular rate and regular rhythm GI normal to inspection, nondistended, normoactive bowel sounds and non-distended Auscultation: normoactive bowel sounds Palpation: soft Narrative: Deferred Extremity normal to inspection General Extremety ED: Negative for edema or tenderness General Extremity: Negative for edema Neuro oriented x3, CN's II-XII intact bilaterally and no sensory deficits noted Sensorium / Orientation: alert Motor Exam: strength 5/5 throughout Psych mental status grossly normal Attitude: No agitated Skin no rashes or lesions noted and no wounds General Skin Exam: Negative for jaundice or pallor Heart Score History: Slightly/Non-Suspicious ECG: Normal Age: >/= 65 years Risk Factors: >/= 3 Risk Factors or History of CAD Troponin: </= Normal Limit Score: 4 MDM MDM MDM Narrative Medical decision making narrative: Patient presenting with right lower rib pain after sneezing 3 days ago. The pain is been constant. It does not sound cardiac in nature as it is relieved by pressure to the right lower ribs. Patient denies shortness of breath, cough, fever, lightheadedness, dizziness, dyspepsia, nausea. Patient has no history of DVT/PE and no risk factors. Her vital signs are stable and she is afebrile. EKG on my interpretation shows normal sinus rhythm with a ventricular rate of 71 bpm without signs of ischemic changes. Chest x-ray on my interpretation shows no acute cardiopulmonary process and the radiologist does agree. Blood work obtained today is all within normal limits with exception of a mildly increased creatinine of 1.14. Troponin is 3:06 days of constant pain so I do not believe she needs a delta troponin. I feel the patient's chest pain is likely musculoskeletal in nature. Patient is counseled on using Tylenol and ibuprofen for pain. She can return of options. Patient able discharge at this time. Impression: 1. Chest pain noncardiac Lab Data Labs: Laboratory Results - last 24 hr 01/26/21 01/26/21 16:05 16:05 WBC 4.5 RBC 4.66 Hgb 14.1 Hct 43.3 MCV 92.9 MCH 30.3 MCHC 32.6 RDW Std Deviation 44.2 H RDW Coeff of Keo 13.0 Plt Count 218 MPV 8.7 Immature Gran % (Auto) 0.200 Neut % (Auto) 68.4 Lymph % (Auto) 22.6 Sevier % (Auto) 6.6 Eos % (Auto) 1.5 Baso % (Auto) 0.7 Absolute Neuts (auto) 3.1 Absolute Lymphs (auto) 1.02 Nucleated RBC % 0 Sodium 140 Potassium 3.8 Chloride 109 H Carbon Dioxide 27.0 Anion Gap 4 L BUN 17 Creatinine 1.14 H Estim Creat Clear Calc 43.86 Est GFR (MDRD) Af Amer 62 Est GFR (MDRD) Non-Af 51 L BUN/Creatinine Ratio 14.9 Glucose 92 Calcium 9.2 Troponin I High Sens 6 Radiography Diagnostic Testing: Radiology Impression Chest X-Ray 01/26/21 16:23 IMPRESSION: Normal x-ray examination of the chest. Electronically Signed: Antoine Julien MD at 16:43 EDT Tel , Service support , Discharge Plan Triage Chief Complaint: Chest Pain ED Provider: Eduardo Ely Dx/Rx/DC Orders Instructions: ED Chest Pain Wall Costochond Prescriptions: No Action cholecalciferol (vitamin D3) 5,000 unit capsule 5,000 unit PO DAILY RF: 0 albuterol sulfate [Ventolin HFA] 90 mcg/actuation HFA aerosol inhaler 2 puff INHALATION Q6H PRN (Reason: Asthma) RF: 0 levocetirizine [Allergy Relief (levocetirizin)] 5 mg tablet 5 mg PO DAILY RF: 0 bupropion HCl 150 mg tablet extended release 24 hr 150 mg PO QAM RF: 0 atorvastatin 40 MG tablet 10 mg PO QHS RF: 0 clopidogrel 75 MG tablet 75 mg PO DAILY RF: 0 levothyroxine 25 tablet 25 mcg PO DAILY RF: 0 acetaminophen 500 MG tablet 500 mg PO Q6H PRN PRN (Reason: Pain Or Fever) Qty: 28 RF: 0 lisinopril 10 MG tablet 10 mg PO DAILY RF: 0 diazepam [diazepam] 5 MG tablet 5 mg PO Q8 PRN (Reason: Vertigo) Qty: 15 RF: 0 cephalexin 500 mg capsule 500 mg PO Q6H 7 Days Qty: 28 RF: 0 Breo Ellipta 200-25 mcg/dose blister with device 1 inh INHALATION DAILY Qty: 60 RF: 5 Primary Care Provider: [facility] - Disposition Disposition: Home, Self Care
[2021-01-26 16:54] VITALS: BP 124/64; PULSE 86; RESP 14; O2SAT 93
== END 2021-01-26 17:15 | disposition home or self-care (01) ==
PROVIDERS: Emergency Provider Student in an Organized Health Care Education/Training Program
DX: R07.89 Other chest pain (principal); I25.10 Atherosclerotic heart disease of native coronary artery without angina pectoris; I25.2 Old myocardial infarction; Z87.891 Personal history of nicotine dependence; Z86.73 Personal history of transient ischemic attack (TIA), and cerebral infarction without residual deficits
CPT/HCPCS: 71045; 80048; 84484; 85025; 93005; 99283; A4216

== ENCOUNTER → 2021-02-23 12:15 | Outpatient (CLI) | payer MEDICARE, MEDICAID, SELFPAY ==
[2021-02-23 14:04] LABS: Vitamin B12 597 pg/mL (211-911)
== END ==
DX: D51.9 Vitamin B12 deficiency anemia, unspecified (principal)
CPT/HCPCS: 36415; 82607

== ENCOUNTER → 2021-03-01 16:49 | Outpatient (CLI) | payer MEDICARE, SELFPAY ==
[2021-03-01 17:34] LABS: Absolute Lymphocyte Count 1.36 X10^3/uL (0.83-4.51); Absolute Neutrophil Count 3.7 X10^3/uL (2.0-7.7); Basophil# 0.04 X10^3/uL; Basophil% 0.7 % (0-1); Eosinophil# 0.09 X10^3/uL; Eosinophils% 1.6 % (0-5); Hematocrit 46.6 % (37-47); Hemoglobin 15.1 g/dL (12.0-15.0); Lymphocyte # 1.36 X10^3/ul (0.83-4.51); Lymphocyte % 24.6 % (19-41); Mean Corp Hgb Conc 32.4 g/dL (32-36); Mean Corpuscular Hgb 30.8 pg (27.0-32.0); Mean Corpuscular Volume 95.1 fL (81-99); Mean Platelet Vol. 8.9 fl (6.2-12.0); Monocyte# 0.35 X10^3/uL; Monocyte% 6.3 % (0-10); NRBC Flagged by Analyzer 0 % (0-5); Neutrophil # 3.67 X10^3/uL (2.7-7.7); Neutrophil % 66.4 % (47-70); Platelet Count 252 K/mm3 (150-450); RBC Distribution Width CV 13.1 % (11.6-14.6); RBC Distribution Width SD 46.1 fl (35.1-43.9); White Blood Count 5.5 K/mm3 (4.4-11.0)
[2021-03-01 18:23] LABS: AST(SGOT) 18 U/L (15-37); Alanine Aminotransfer ALT/SGPT 23 U/L (13-56); Albumin, Serum 3.9 g/dL (3.2-5.0); Alkaline Phosphatase 73 U/L (45-117); Anion Gap 7 (5-15); BUN 19 mg/dL (7-18); BUN/Creat Ratio 15.8 RATIO (10-20); Calcium,Total 9.4 mg/dL (8.5-10.1); Chloride 105 mmol/L (98-107); EST Glomerular Filtration Rate 48 mL/min (>60); Est Glom Filt Rate - Afr Amer 58 mL/min (>60); Glucose 83 mg/dL (74-106); Lipase 37 U/L (73-393); Potassium 3.8 mmol/L (3.5-5.1); Protein, Total 7.9 g/dL (6.4-8.2); Sodium Level 140 mmol/L (136-145); Thyroid Stim Hormone (TSH) 1.07 uIU/mL (0.358-3.74)
[2021-03-01 18:26] LABS: Vitamin B12 559 pg/mL (211-911)
[2021-03-03 14:26] LABS: H. Pylori Antibody (IgG) 0.35 (0.00-0.79)
== END ==
PROVIDERS: Visit Provider Nurse Practitioner Adult Health
DX: R63.4 Abnormal weight loss (principal)
CPT/HCPCS: 36415; 80053; 82607; 83690; 84443; 85025; 86677

== ENCOUNTER → 2021-03-02 07:50 | Outpatient (CLI) | payer MEDICARE, MEDICAID, SELFPAY ==
--- NOTE | 2021-03-02 07:56 | US_ITS ---
INDICATION: RUQ AND RLQ PAIN EXAMINATION: Ultrasound US Abdomen Limited (quadrant) TECHNIQUE: Thurston scale imaging with graded compression and color doppler was obtained of the right upper quadrant. COMPARISON: 06/04/2020. FINDINGS: The liver demonstrates unremarkable echogenicity unremarkable size, shape and configuration, no evidence of hepatic masses, no evidence of intrahepatic biliary dilatation. The gallbladder demonstrates unremarkable anechoic internal echogenicity, no evidence of gallstones, no evidence of gallbladder wall thickening no evidence of pericholecystic fluid is visualized. Negative sonographic Gutierrez''s sign is seen. Gallbladder wall measures 0 point to centimeters. Common bile duct measures 0.4 cm. The pancreas on stress unremarkable echogenicity, no evidence of pancreatic mass is seen. The right kidney demonstrates unremarkable echogenicity, unremarkable vascularity, unremarkable size, shape and configuration, no evidence of right renal masses is seen. A nonobstructing stone is visualized in the lower pole of the right kidney measuring 0.3 cm. No evidence of right hydronephrosis is seen. The right kidney measures 9.1 x 4.8 x 4.1 cm. US/Abdomen Limited IMPRESSION: No evidence of acute abdominal pathology. Electronically Signed: Tacos Hauser MD at 13:47 EDT Tel , Service support ,
== END ==
PROVIDERS: Referring Provider Nurse Practitioner Adult Health; Visit Provider Nurse Practitioner Adult Health
DX: R10.11 Right upper quadrant pain (principal)
CPT/HCPCS: 76705

== ENCOUNTER → 2021-03-10 14:41 | Outpatient (CLI) | payer MEDICARE, MEDICAID, SELFPAY ==
[2021-03-10 15:34] LABS: Phosphorus 3.4 mg/dL (2.5-4.9)
[2021-03-13 15:24] LABS: Vitamin D 1,25-Dihydroxy 68.8 pg/mL (19.9-79.3)
== END ==
DX: R63.4 Abnormal weight loss (principal)
CPT/HCPCS: 36415; 82575; 82652; 83970; 84100; 84550

== ENCOUNTER → 2021-03-11 | Outpatient (CLI) | payer MEDICARE, MEDICAID, SELFPAY ==
[2021-03-11 14:56] LABS: 24H Urine Creat. Total Vol. 0.65 L
[2021-03-11 15:03] LABS: 24HR. Urine Creatinine 0.99 g/24 HR (0.70-1.90)
== END | disposition home or self-care (01) ==
LOC: LABSPEC 13:02
PROVIDERS: Referring Provider Nurse Practitioner Adult Health; Visit Provider Nurse Practitioner Adult Health
DX: R63.4 Abnormal weight loss (principal)
CPT/HCPCS: 81050; 82570

== ENCOUNTER → 2021-03-13 09:31 | Outpatient (CLI) | payer MEDICARE, MEDICAID, SELFPAY ==
--- NOTE | 2021-03-13 09:36 | CT_ITS ---
INDICATION: LUNG NODULES/COPD/WEIGHT LOSS EXAMINATION: CT CHEST WITHOUT CONTRAST - CT Chest W/O Contrast Injection TECHNIQUE: Helically acquired images were obtained of the chest. A radiation dose optimization technique was used for this scan. IV Contrast dosage and agent: None. COMPARISON: 05/01/2020 and 05/16/[address] lung screening. FINDINGS: Irregular, pleural-based nodule seen in the right minor fissure measuring 7 mm in maximum diameter is unchanged. This is a benign nodule. 3 mm peripheral, nonpleural-based nodule, left lower lobe, axial image 96 is unchanged dating back to 05/16/2019. 2 mm calcified nodule superior segment right lower lobe, axial image 52; benign nodule. There is a new, 5 x 3 mm nodule in the right upper lobe, axial image 25. There are no other pulmonary nodules. There is no mass lesion. Moderately advanced centrilobular emphysematous changes are present, primarily involving the upper lobes. Associated air trapping with increased lung volumes. There is biapical pulmonary scarring. Central airways normal. Normal size heart with no pericardial effusion. No mediastinal or hilar lymphadenopathy. Note of intimal calcifications thoracic aorta. Several hypodensities seen in the liver, unchanged compared to prior 06/04/2020 CT abdomen and pelvis without contrast. Osseous structures show no lytic or blastic bone lesion. Age expected degenerative endplate changes are present. There is a exaggerated kyphosis. CT/Chest without Contrast IMPRESSION: Previously described 7 mm nodule is a fissural nodule and has very low likelihood of malignancy. Previously described 3 mm nodule left lower lobe is unchanged for at least 2 years. New right upper lobe elongated, scarlike nodule, average measurement of 4 mm. 6 month follow-up CT chest is recommended. Moderately advanced emphysema. Multiple hepatic hypodensities are unchanged. Electronically Signed: Peter Beaulieu DO at 21:20 EDT Tel , Service support ,
== END ==
PROVIDERS: Visit Provider Nurse Practitioner Adult Health
DX: J43.9 Emphysema, unspecified (principal); J98.4 Other disorders of lung; R91.8 Other nonspecific abnormal finding of lung field; R63.4 Abnormal weight loss
CPT/HCPCS: 71250

== ENCOUNTER 2021-04-10 17:41 | Emergency (ER) | payer MEDICARE, MEDICAID, SELFPAY ==
[2021-04-10 17:41] VITALS: BP 164/88; PULSE 97; RESP 18; TEMP 36.1; O2SAT 97; BMI 19.2
--- NOTE | 2021-04-10 17:48 | RAD_ITS ---
STUDY: X-RAY - LEFT HAND, ATTENTION FIFTH FINGER REASON FOR EXAM: Female, 65 years old. Injury -- left 5th digit TECHNIQUE: 3 view(s) of the finger were obtained. COMPARISON: None. FINDINGS: Normal metacarpal head. Normal metacarpophalangeal joint. Normal proximal phalanx. Normal middle phalanx. There is a fracture at the base of the distal phalanx. Normal proximal interphalangeal joint. Normal distal interphalangeal joint. RAD/Finger(s) Min 2 Views IMPRESSION: There is a fracture at the base of the distal phalanx. Electronically Signed: Mike Leavitt DO at 19:13 EST Tel [phone], Service support ,
--- NOTE | 2021-04-10 17:48 | EX.ED.UPPERE ---
HPI History of Present Illness Chief Complaint: Upper Extremity Injury Informant: patient Occured/Mechanism Mechanism/Context: Yes crush Onset/Context/Timing Onset: Today Context: Sudden Onset Quality of Pain: Aching and Throbbing Current Severity: Moderate Maximum Severity: Severe Narrative Narrative: Patient presents secondary to crush injury to the left fifth finger. Her finger got caught in a slamming door. She is right-hand dominant. Denies any other injury. [facility] Medical History Abdominal pain Anxiety disorder Bronchitis CAD (coronary artery disease) Chest pain COPD (chronic obstructive pulmonary disease) Diaphragm paralysis Fuchs' corneal dystrophy History of cerebrovascular disease History of CVA (cerebrovascular accident) HTN (hypertension) Hypoxia Home Medications atorvastatin 10 mg PO QHS 09/29/17 [History Last Taken 06/12/19] clopidogrel 75 mg PO DAILY 07/07/18 [History Last Taken 06/12/19] albuterol sulfate 90 mcg/actuation aerosol inhaler 2 puff INHALATION Q6H PRN 08/14/18 [History Last Taken 06/12/19] cholecalciferol (vitamin D3) 125 mcg (5,000 unit) capsule 5,000 unit PO DAILY 08/14/18 [History Last Taken 06/12/19] levothyroxine 25 mcg PO DAILY 01/22/19 [History Last Taken 06/12/19] acetaminophen 500 mg PO Q6H PRN PRN #28 tab 06/16/19 [Rx Last Taken Unknown] levocetirizine 5 mg tablet 5 mg PO DAILY 10/31/19 [History Last Taken Unknown] lisinopril 10 mg PO DAILY 03/21/20 [History Last Taken Unknown] bupropion HCl 150 mg 24 hr tablet, extended release 150 mg PO QAM 10/28/20 [History Last Taken Unknown] diazepam 5 mg PO Q8 PRN #15 tab 11/03/20 [Rx Last Taken Unknown] Allergy/AdvReac Type Severity Reaction Status Date / Time hydrocodone bitartrate Allergy HALLUCINATE Verified 04/10/21 17:41 [From Vicodin] S fish derived AdvReac Anaphylaxis Verified 04/10/21 17:41 morphine AdvReac HALLUCINATE Verified 04/10/21 17:41 S Family History Mother Diabetes Heart disease Hypertension High cholesterol Father Heart disease Hypertension High cholesterol CVA (cerebral vascular accident) Surgical History History bilateral cataract surgery History left shoulder surgery History of tubal ligation Social History housing: apartment pets and animals: Yes pets and animals: dog(s) Smoking Status: Former smoker quit date: 10/28/19 pack-years: 25 Tobacco: How many years used: 25 second hand exposure: Yes alcohol intake: never substance use type: does not use ROS ROS ED Constitutional Constitutional ED: Denies chills or fever(s) Eyes Eyes: Denies change in vision ENT ENT ED: Denies sore throat Cardiovascular Cardiovascular: Denies chest pain Respiratory/Chest Respiratory/Chest: Denies cough or dyspnea Gastrointestinal Gastrointestinal: Denies abdominal pain, diarrhea, nausea or vomiting Genitourinary Genitourinary ED: Denies dysuria Musculoskeletal Musculoskeletal: Reports other Details: Left fifth finger pain ; Denies back pain Integumentary Reports Abrasions; Denies rash Neurologic Neurologic: Denies headache(s) or weakness Allergic/Immunologic Allergic/Immunologic ED: Denies urticaria EXAM Physical Exam Const Vital Signs: 04/10/21 17:41 Temperature 97 F L Temperature Source Temporal Pulse Rate 97 Respiratory Rate 18 Blood Pressure 164/88 H Blood Pressure Mean 113 Pulse Ox 97 Oxygen Delivery Method Room Air Positive well nourished and well developed General Appearance ED: well developed HEENT normocephalic Eyes PERRL and EOMs intact bilaterally Neck supple Chest Wall inspection of chest normal Resp normal respiratory effort Cardio regular rate and regular rhythm Extremity Extremity Narrative: Tenderness and edema noted to the middle and distal phalanx of the left fifth digit. Small blowout of blood noted along the nail edge on the radial side. Good cap refill distally. No tenderness over the metacarpals. Neuro oriented x3 Sensorium / Orientation: alert MDM MDM MDM Narrative Medical decision making narrative: X-rays of the left fifth digit obtained. Patient declined anything for pain. Treatment and Re-Evaluation Comments:: On my review of x-rays, there is a small avulsion fracture off the proximal aspect of the distal phalanx seen best on lateral view. When I go back and stabilize the PIP joint and try to have patient resist against flexion she is unable to. Wound will be cleansed and dressed. Patient will be splinted in slight extension. She will follow up closely with orthopedic. She was advised the splint cannot come off for any reason. Discharge Plan Triage Chief Complaint: Upper Extremity Injury ED Provider: Lili Roque Dx/Rx/DC Orders Clinical Impression: Avulsion fracture of distal phalanx of finger Instructions: ED Fracture, Finger, Closed Prescriptions: No Action cholecalciferol (vitamin D3) 5,000 unit capsule 5,000 unit PO DAILY RF: 0 albuterol sulfate [Ventolin HFA] 90 mcg/actuation HFA aerosol inhaler 2 puff INHALATION Q6H PRN (Reason: Asthma) RF: 0 levocetirizine [Allergy Relief (levocetirizin)] 5 mg tablet 5 mg PO DAILY RF: 0 bupropion HCl 150 mg tablet extended release 24 hr 150 mg PO QAM RF: 0 atorvastatin 40 MG tablet 10 mg PO QHS RF: 0 clopidogrel 75 MG tablet 75 mg PO DAILY RF: 0 levothyroxine 25 tablet 25 mcg PO DAILY RF: 0 acetaminophen 500 MG tablet 500 mg PO Q6H PRN PRN (Reason: Pain Or Fever) Qty: 28 RF: 0 lisinopril 10 MG tablet 10 mg PO DAILY RF: 0 diazepam [diazepam] 5 MG tablet 5 mg PO Q8 PRN (Reason: Vertigo) Qty: 15 RF: 0 Primary Care Provider: [facility] Danae Valdez Referrals: Gio Art DO [STAFF PHYSICIAN] [facility] - Disposition Disposition: Home, Self Care
[2021-04-10 18:54] VITALS: BP 128/80; PULSE 79; O2SAT 96
== END 2021-04-10 18:57 | disposition home or self-care (01) ==
PROVIDERS: Emergency Provider Emergency Medicine
DX: S67.197A Crushing injury of left little finger, initial encounter (principal); S62.667A Nondisplaced fracture of distal phalanx of left little finger, initial encounter for closed fracture; W23.0XXA Caught, crushed, jammed, or pinched between moving objects, initial encounter; Y93.9 Activity, unspecified; Y92.9 Unspecified place or not applicable; Y99.9 Unspecified external cause status; I25.10 Atherosclerotic heart disease of native coronary artery without angina pectoris; I10 Essential (primary) hypertension; J44.9 Chronic obstructive pulmonary disease, unspecified; F41.9 Anxiety disorder, unspecified; Z79.02 Long term (current) use of antithrombotics/antiplatelets; Z79.899 Other long term (current) drug therapy; Z87.891 Personal history of nicotine dependence; Z86.73 Personal history of transient ischemic attack (TIA), and cerebral infarction without residual deficits
CPT/HCPCS: 29130; 73140; 99282

== ENCOUNTER 2021-07-06 12:01 | Outpatient (CLI) | payer MEDICARE, SELFPAY ==
[2021-07-06 13:34] LABS: Absolute Neutrophil Count 2.7 X10^3/uL (2.0-7.7); Basophil# 0.03 X10^3/uL; Basophil% 0.7 % (0-1); Eosinophil# 0.07 X10^3/uL; Eosinophils% 1.7 % (0-5); Hematocrit 44.8 % (37-47); Hemoglobin 14.8 g/dL (12.0-15.0); Lymphocyte % 26.4 % (19-41); Mean Corpuscular Volume 93.7 fL (81-99); Mean Platelet Vol. 9.3 fl (6.2-12.0); Monocyte# 0.29 X10^3/uL; NRBC Flagged by Analyzer 0 % (0-5); Neutrophil # 2.65 X10^3/uL (2.7-7.7); Neutrophil % 63.7 % (47-70); Platelet Count 226 K/mm3 (150-450); RBC Distribution Width CV 12.7 % (11.6-14.6); RBC Distribution Width SD 43.6 fl (35.1-43.9); Red Blood Count 4.78 M/mm3 (4.2-5.4); White Blood Count 4.2 K/mm3 (4.4-11.0)
[2021-07-06 14:23] LABS: Anion Gap 6 (5-15); BUN 20 mg/dL (7-18); BUN/Creat Ratio 19.8 RATIO (10-20); Calcium,Total 9.2 mg/dL (8.5-10.1); Chloride 104 mmol/L (98-107); Cholesterol 184 mg/dL (200); Creatinine, Serum 1.01 mg/dL (0.55-1.02); EST Glomerular Filtration Rate 59 mL/min (>60); Est Glom Filt Rate - Afr Amer 71 mL/min (>60); Glucose 88 mg/dL (74-106); High Density Lipoprotein 92 mg/dL; Potassium 4.1 mmol/L (3.5-5.1); Sodium Level 138 mmol/L (136-145); Triglycerides 91 mg/dL; Very Low Density Lipoprotein 18 mg/dL (5-40)
== END 2021-07-06 23:59 | disposition home or self-care (01) ==
LOC: LAB 12:05
PROVIDERS: Referring Provider Nurse Practitioner Adult Health; Visit Provider Nurse Practitioner Adult Health
DX: N18.9 Chronic kidney disease, unspecified (principal); S70.12XA Contusion of left thigh, initial encounter; X58.XXXA Exposure to other specified factors, initial encounter
CPT/HCPCS: 36415; 80048; 80061; 85025

== ENCOUNTER 2021-07-08 14:00 | Outpatient (RCR) | payer MEDICARE, MEDICAID, SELFPAY ==
--- NOTE | 2021-06-28 09:24 | HP.OTEVAL_ITS ---
Patient's Visit Information AUBRIE ANDREWS is a 66 year old F, referred to Occupational Therapy by KAMINI Bell, with a diagnosis of left LF 5th bony mallet finger. Date of Evaluation: 06/23/21 Occupational Therapist: Laura Martínez, OTRashida/Alize, CHT - Subjective This 65 year old female was seen for OT eval with dx of left 5th bony mallet finger. DOI was 04/10/21 when a screen door shut on her finger-. pt states she was in splint until 7 weeks - she was recently taken out of her splint on 06/18/21 and was told per pt to start moving and using her finger- pt states she does not like how the tip of her finger hangs down- she wants to know what she can do to improve the appearance and function of her hand. - Pain left LF 2 Pain Intensity Range: 2, 3 - ROM MP: left LF 0/80 right 0/95 PIP: left LF 0/90 right 0/100 DIP: left LF -35/65 right 0/75 ROM Comments: pt demo with compromised DIP extension due to Mallet finger injury - Strength Digital Asset Coordinator: right 50# left 40# Lateral Pinch: right 14# left 10# Tripod Pinch: right 12# left 12# Strength Comments: pt demo with good functional strength - Edema PIP: right LF 4.5 left 5.2 - Sensation Sensation Comments: reports tingling of dorsum of DIP distally of left LF - Quick DASH-Disab of Arm,Shoulder& Hand Quick DASH Score: 6.8175 - Goals Goal:: pt will demo a increase in right consulting networking engineer strength by 10# to return pt to performing ADLs and IADLs by d.c Goal:: pt will demo a improvement in DIP ext by 20* to increase pts ind with placing hands in pockets- putting gloves on etc. by d.c Goal:: pt will report no pain greater than 1/10 with use of left hand with ADLs and IADLs by d/c Goal:: pt will demo understanding of orthosis use to limit LF DIP from prolonged flexed position by end of 3rd session. - Rehabilitation General Assessment: pt demo with poor Left DIP ext following weeks in splint- pt would like to have her finger straighter-. Pt demo with a decrease in flexion of PIP and weakness of left UE increasing need of assist with ADls. pt would benefit from skilled OT services 1x week for 4 weeks to ed. pt on dx, increase functional use of left UE for ADLS-pt demo understanding and agree to POC. Rehabilitation Potential: Good - Anticipated Interventions A/AAROM/PROM, Strengthening, Orthoses, Ergonomic Education, Home Program - Visit Plan Frequency: 1-2x /Week Duration: 3 Weeks TEXT: Thank you for the opportunity to evaluate your patient. For Medicare and Medicare HMO plans, please review the plan of care and approve it. It will need to be FAXED BACK to us at [phone] for Medicare purposes. Please let me know if there are questions or concerns regarding this plan of care. Physician Signature: Date:
--- NOTE | 2021-10-11 18:54 | HP.OT.NRP ---
AUBRIE ANDREWS was seen in my office for initial evaluation on 06/23/21. The following Plan of Care was established for this patient: Initial Frequency: 1-2x /Week Initial Duration: 3 Weeks Plan: pt will continue with use of her hand as finger is- will use orthosis as needed- but will contact after moving and see. Anticipated Interventions: A/AAROM/PROM, Strengthening, Orthoses, Ergonomic Education, Home Program This patient was last seen in our office 07/08/21. Pertinent comments regarding their Occupational therapy will appear below: -15 DIP ext this is increase from -35* pt arrives to session with orthosis on and shortly after removing orthosis DIP extensor lag increased to -20* pt was in process of moving and would return - pt has not done so at this time and due to time lapse in services pt d/c. At this point I will be discontinuing this patient from occupational therapy. I would be happy to see this patient again in the future if found appropriate by the physician. Thank you! Laura Martínez, OTR/L, CHT
== END 2021-07-08 19:00 | disposition home or self-care (01) ==
LOC: OT 14:00
DX: M20.012 Mallet finger of left finger(s) (principal)
CPT/HCPCS: 97166; 97530

== ENCOUNTER 2021-07-10 14:20 | Emergency (ER) | payer MEDICARE, SELFPAY ==
[2021-07-10 14:21] VITALS: BP 154/71; PULSE 74; RESP 14; TEMP 36.2; O2SAT 97; BMI 19.5
--- NOTE | 2021-07-10 14:55 | RAD_ITS ---
STUDY: X-RAY CHEST REASON FOR EXAM: Female, 66 years old. Shortness of breath TECHNIQUE: Single AP portable view of the chest. COMPARISON: 01/26/2021. FINDINGS: The lungs are somewhat hyperinflated. No focal infiltrate is seen. There is no demonstrated pleural abnormality. Normal size heart. Normal mediastinum and omero. Normal visualized pulmonary arteries. Normal visualized aortic arch and descending thoracic aorta. Normal visualized thoracic spine. Normal visualized ribs, clavicles, and shoulders. There is no demonstrated abnormality of the visualized soft tissue structures of the upper abdomen. RAD/Chest 1 View (Portable) IMPRESSION: No active pulmonary disease. Electronically Signed: Niranjan Vasquez, at 15:12 EST ,
[2021-07-10 14:57] LABS: Absolute Lymphocyte Count 1.05 X10^3/uL (0.83-4.51); Absolute Neutrophil Count 2.4 X10^3/uL (2.0-7.7); Basophil# 0.03 X10^3/uL; Basophil% 0.8 % (0-1); Eosinophils% 2.6 % (0-5); Hematocrit 39.6 % (37-47); Hemoglobin 13.3 g/dL (12.0-15.0); Lymphocyte # 1.05 X10^3/ul (0.83-4.51); Lymphocyte % 27.6 % (19-41); Mean Corp Hgb Conc 33.6 g/dL (32-36); Mean Corpuscular Hgb 31.7 pg (27.0-32.0); Mean Corpuscular Volume 94.5 fL (81-99); Monocyte# 0.26 X10^3/uL; Monocyte% 6.8 % (0-10); NRBC Flagged by Analyzer 0 % (0-5); Neutrophil # 2.36 X10^3/uL (2.7-7.7); Neutrophil % 61.9 % (47-70); Platelet Count 188 K/mm3 (150-450); RBC Distribution Width CV 12.9 % (11.6-14.6); RBC Distribution Width SD 44.8 fl (35.1-43.9); Red Blood Count 4.19 M/mm3 (4.2-5.4); White Blood Count 3.8 K/mm3 (4.4-11.0)
[2021-07-10 15:10] LABS: Anion Gap 3 (5-15); BUN 13 mg/dL (7-18); BUN/Creat Ratio 13.2 RATIO (10-20); Calcium,Total 8.7 mg/dL (8.5-10.1); Chloride 110 mmol/L (98-107); Creatinine, Serum 0.99 mg/dL (0.55-1.02); EST Glomerular Filtration Rate 60 mL/min (>60); Est Glom Filt Rate - Afr Amer 73 mL/min (>60); Estimated Creatinine Clearance 49.85 ml/min; Glucose 98 mg/dL (74-106); Potassium 3.9 mmol/L (3.5-5.1); Sodium Level 143 mmol/L (136-145)
[2021-07-10 15:34] VITALS: RESP 16
--- NOTE | 2021-07-10 15:43 | EX.ED.DYSGE1 ---
HPI History of Present Illness Chief Complaint: General Illness Narrative Narrative: Patient with past medical history of hypertension, anxiety disorder presents because she thinks she has COVID-19. Her symptoms began yesterday. She states she was exposed to Covid through her sons approximately 3 weeks ago. She has been vaccinated. She complains of rhinorrhea but has not lost taste or smell. She endorses fatigue and cough but no fever. She has shortness of breath, but has past medical history of COPD. She also mentions that her told her she looked pale in the face. She denies any exacerbating or alleviating factors but wants to be evaluated for her generalized weakness and upper respiratory infection type symptoms. [facility] Medical History Abdominal pain Anxiety disorder Bronchitis CAD (coronary artery disease) Chest pain COPD (chronic obstructive pulmonary disease) Diaphragm paralysis Fuchs' corneal dystrophy History of cerebrovascular disease History of CVA (cerebrovascular accident) HTN (hypertension) Hypoxia Home Medications atorvastatin 10 mg PO QHS 09/29/17 [History Last Taken 06/12/19] clopidogrel 75 mg PO DAILY 07/07/18 [History Last Taken 06/12/19] albuterol sulfate 90 mcg/actuation aerosol inhaler 2 puff INHALATION Q6H PRN 08/14/18 [History Last Taken 06/12/19] cholecalciferol (vitamin D3) 125 mcg (5,000 unit) capsule 5,000 unit PO DAILY 08/14/18 [History Last Taken 06/12/19] levothyroxine 25 mcg PO DAILY 01/22/19 [History Last Taken 06/12/19] acetaminophen 500 mg PO Q6H PRN PRN #28 tab 06/16/19 [Rx Last Taken Unknown] levocetirizine 5 mg tablet 5 mg PO DAILY 10/31/19 [History Last Taken Unknown] lisinopril 10 mg PO DAILY 03/21/20 [History Last Taken Unknown] bupropion HCl 150 mg 24 hr tablet, extended release 150 mg PO QAM 10/28/20 [History Last Taken Unknown] fluticasone furoate 200 mcg-vilanterol 25 mcg/dose inhalation powder ea INHALATION 04/16/21 [History Last Taken Unknown] Allergy/AdvReac Type Severity Reaction Status Date / Time hydrocodone bitartrate Allergy HALLUCINATE Verified 07/10/21 14:23 [From Vicodin] S fish derived AdvReac Anaphylaxis Verified 07/10/21 14:23 morphine AdvReac HALLUCINATE Verified 07/10/21 14:23 S Family History Mother Diabetes Heart disease Hypertension High cholesterol Father Heart disease Hypertension High cholesterol CVA (cerebral vascular accident) Surgical History History bilateral cataract surgery History left shoulder surgery History of tubal ligation Social History housing: apartment pets and animals: Yes pets and animals: dog(s) Smoking Status: Former smoker quit date: 10/28/19 pack-years: 25 Tobacco: How many years used: 25 second hand exposure: Yes alcohol intake: never substance use type: does not use ROS ROS ED ROS Narrative Constitutional: No fever, no chills. Generalized weakness. HEENT: No sore throat. Positive rhinorrhea no neck pain. No loss of vision. No loss of taste or smell. Cardiovascular: No chest pain. No palpitations. No pedal edema. Respiratory: Occasional cough, positive shortness of breath. Abdominal: No abdominal pain. No nausea. No vomiting. Genitourinary: No dysuria. No hematuria. Musculoskeletal: No myalgias. No arthralgias. Neurologic: No headaches. No dizziness. No lightheadedness. Skin: No rash. Think she is more pale than usual. Psychiatric: No depression. No anxiety. EXAM Physical Exam Narrative Exam Narrative: Afebrile. Vital signs noted. HEENT: Normocephalic. Atraumatic. PERRL, EOMI. Neck soft and supple. No point tenderness or step off. Cardiovascular: Regular rate and rhythm. No murmurs, rubs, or gallops appreciated. Respiratory: No tachypnea. Lungs clear to auscultation bilaterally. Gastrointestinal: Abdomen soft, nontender, with normoactive bowel sounds. No rebound or guarding. Neurological: Awake. Alert. Nonfocal, nonlateralizing. Skin: No rash. Normal color. No pallor. Musculoskeletal: No pedal edema. Full range of motion extremities. Const Vital Signs: 07/10/21 14:21 07/10/21 15:01 07/10/21 15:34 Temperature 97.1 F L Temperature Source Temporal Pulse Rate 74 Respiratory Rate 14 16 Respiratory Effort Normal Non-Labored Blood Pressure 154/71 H Blood Pressure Mean 98 Pulse Ox 97 Oxygen Delivery Method Room Air MDM MDM MDM Narrative Medical decision making narrative: Patient was swabbed for Covid and it is negative. WBC count slightly low at 3.8, hemoglobin normal at 13.3. Electrolyte panel shows chloride of 110 but normal sodium. She has normal BUN and normal creatinine. Chest x-ray shows no acute pulmonary disease. Covid swab is negative. At this point in time, I feel she be discharged safely home with outpatient [id number] symptomatic treatment for her upper respiratory infection. She will follow up with the [facility] [place] [facility]. Return instructions were reviewed. Disposition is discharged home, in stable condition. Lab Data Labs: Laboratory Results - last 24 hr 07/10/21 07/10/21 14:50 14:50 WBC 3.8 L RBC 4.19 L Hgb 13.3 Hct 39.6 MCV 94.5 MCH 31.7 MCHC 33.6 RDW Std Deviation 44.8 H RDW Coeff of Keo 12.9 Plt Count 188 MPV 9.0 Immature Gran % (Auto) 0.300 Neut % (Auto) 61.9 Lymph % (Auto) 27.6 [place] % (Auto) 6.8 Eos % (Auto) 2.6 Baso % (Auto) 0.8 Absolute Neuts (auto) 2.4 Absolute Lymphs (auto) 1.05 Nucleated RBC % 0 Sodium 143 Potassium 3.9 Chloride 110 H Carbon Dioxide 30.0 Anion Gap 3 L BUN 13 Creatinine 0.99 Estim Creat Clear Calc 49.85 Est GFR (MDRD) Af Amer 73 Est GFR (MDRD) Non-Af 60 BUN/Creatinine Ratio 13.2 Glucose 98 Calcium 8.7 Radiography Diagnostic Testing: Clinical Impression(s) from Imaging Studies Chest X-Ray 07/10/21 14:55 IMPRESSION: No active pulmonary disease. Electronically Signed: Niranjan Vasquez, at 15:12 EST , Discharge Plan Triage Chief Complaint: General Illness ED Provider: Naif Jackson Dx/Rx/DC Orders Clinical Impression: URI (upper respiratory infection) Prescriptions: No Action cholecalciferol (vitamin D3) 5,000 unit capsule 5,000 unit PO DAILY RF: 0 albuterol sulfate [Ventolin HFA] 90 mcg/actuation HFA aerosol inhaler 2 puff INHALATION Q6H PRN (Reason: Asthma) RF: 0 levocetirizine [Allergy Relief (levocetirizin)] 5 mg tablet 5 mg PO DAILY RF: 0 bupropion HCl 150 mg tablet extended release 24 hr 150 mg PO QAM RF: 0 Breo Ellipta 200-25 mcg/dose blister with device inhalation RF: 0 atorvastatin 40 MG tablet 10 mg PO QHS RF: 0 clopidogrel 75 MG tablet 75 mg PO DAILY RF: 0 levothyroxine 25 tablet 25 mcg PO DAILY RF: 0 acetaminophen 500 MG tablet 500 mg PO Q6H PRN PRN (Reason: Pain Or Fever) Qty: 28 RF: 0 lisinopril 10 MG tablet 10 mg PO DAILY RF: 0 Primary Care Provider[facility] - [facility] Days Disposition Disposition: Home, Self Care
== END 2021-07-10 15:55 | disposition home or self-care (01) ==
PROVIDERS: Emergency Provider Emergency Medicine; Visit Provider Emergency Medicine
DX: J06.9 Acute upper respiratory infection, unspecified (principal); J44.9 Chronic obstructive pulmonary disease, unspecified; I25.10 Atherosclerotic heart disease of native coronary artery without angina pectoris; I10 Essential (primary) hypertension; F41.9 Anxiety disorder, unspecified; Z20.822 Contact with and (suspected) exposure to COVID-19; Z79.02 Long term (current) use of antithrombotics/antiplatelets; Z79.899 Other long term (current) drug therapy; Z86.73 Personal history of transient ischemic attack (TIA), and cerebral infarction without residual deficits; Z87.891 Personal history of nicotine dependence
CPT/HCPCS: 71045; 80048; 85025; 87426; 99284; A4216

== ENCOUNTER 2021-07-12 11:58 | Outpatient (CLI) | payer MEDICARE, SELFPAY ==
--- NOTE | 2021-07-12 12:02 | US_ITS ---
EXAM: US LEFT LOWER EXTREMITY NON-VASCULAR, COMPLETE CLINICAL INDICATION: CONTUSION OF LEFT THIGH TECHNIQUE: Real-time ultrasound scan of the left lower extremity with image documentation. This report was created using [employer] report generation technology. COMPARISON: None. FINDINGS: See Impression. US/Ext Non Vasc Limited/Soft Tiss IMPRESSION: 1. At the lateral aspect of the mid left thyroid level there is an area of contusion with underlying focal echogenic process measuring 2.3 x 0.8 x 1.2 cm. Differential includes hematoma versus lipoma. This is located superficial to the underlying muscle. 2. No other significant soft tissue pathology. Electronically Signed: Kunal Perdue MD at 0:26 EST ,
== END 2021-07-12 23:59 | disposition home or self-care (01) ==
LOC: US 11:59
PROVIDERS: Referring Provider Nurse Practitioner Adult Health; Visit Provider Nurse Practitioner Adult Health
DX: S70.12XA Contusion of left thigh, initial encounter (principal); X58.XXXA Exposure to other specified factors, initial encounter
CPT/HCPCS: 76882

== ENCOUNTER 2021-08-19 09:53 | Outpatient (CLI) | payer MEDICARE, SELFPAY ==
--- NOTE | 2021-08-19 09:55 | BI_ITS ---
MAMMOGRAPHY - BILATERAL SCREENING REASON FOR EXAM: Female, 66 years old. Routine annual screening examination. PERTINENT HISTORY: Aunt with breast cancer. Remote left stereotactic breast biopsy. TECHNIQUE: Digital bilateral breast cali (3D mammographic acquisition) in the CC and MLO projections. 2-D mediolateral oblique (MLO) and craniocaudad (CC) views of both breasts were obtained. CAD: Full Field Digital Mammography with Computer Added Detection was performed. COMPARISON: Comparison is made with prior study 08/18/2020 and 03/02/2017. FINDINGS: Breast Composition: The breasts are heterogeneously dense, which may obscure small masses. There are no dominant masses or suspicious calcifications. No other significant abnormalities are identified. There has been no significant change since the prior study. BI/SCRN MAMM (CAD)W/CALI BILAT IMPRESSION: Stable bilateral screening mammogram. Yearly follow-up mammogram recommended. (A) ASSESSMENT CATEGORY: BIRADS Category 1: Negative. A letter regarding these results will be sent to the patient by the facility within 30 days. Approximately 10% of breast cancers are not detected by mammography. A normal mammogram should not delay biopsy of a clinically suspicious abnormality. [id number] Electronically Signed: Oskar Castillo MD at 10:39 EDT ,
== END 2021-08-19 23:59 | disposition home or self-care (01) ==
LOC: OPBI 09:53
PROVIDERS: Visit Provider Nurse Practitioner Adult Health
DX: Z12.31 Encounter for screening mammogram for malignant neoplasm of breast (principal); Z80.3 Family history of malignant neoplasm of breast
CPT/HCPCS: 77063; 77067

== ENCOUNTER 2021-08-26 12:57 | Outpatient (CLI) | payer MEDICARE, MEDICAID, SELFPAY ==
--- NOTE | 2021-08-26 13:15 | CT_ITS ---
STUDY: CT CHEST WITHOUT CONTRAST REASON FOR EXAM: Female, 66 years old. Multiple nodules RADIATION DOSAGE (If Supplied By Facility): CTDIvol = ( 7.25 ) mGy, DLP = ( 282.76 ) mGycm TECHNIQUE: Transaxial imaging was performed without the administration of intravenous contrast material. Multiplanar coronal and sagittal images were reformatted. Individualized dose optimization techniques were used for this CT. COMPARISON: Comparison is made with prior study dated 03/13/2021. FINDINGS: Small benign-appearing bilateral axillary lymph nodes. Emphysematous changes worse in the upper lobes. Stable scarring at the lung apices worse on the right side. Stable 3 mm pleural based nodule in the lateral anterior aspect of the left lower lobe as seen on axial image #96. 2 mm calcified granuloma in the superior segment of the right lower lobe best seen on axial image number image #53 There is no demonstrated pleural abnormality. There are calcifications of the coronary arteries. There are multiple small lymph nodes within the mediastinum, which are normal in size and morphology most compatible with reactive lymph hyperplasia. Normal hilar regions. Normal unenhanced pulmonary arteries. There is atherosclerotic calcification of the aortic arch and descending thoracic aorta. There are degenerative changes of the thoracic spine. There is no demonstrated abnormality of the visualized upper abdomen. CT/Chest without Contrast IMPRESSION: Stable examination. Electronically Signed: Oskar Castillo MD at 14:39 EDT ,
== END 2021-08-26 23:59 | disposition home or self-care (01) ==
LOC: CT 12:59
PROVIDERS: Referring Provider Internal Medicine Critical Care Medicine; Visit Provider Internal Medicine Critical Care Medicine
DX: R91.8 Other nonspecific abnormal finding of lung field (principal)
CPT/HCPCS: 71250

== ENCOUNTER 2021-09-21 11:07 | Day surgery (SDC) | payer MEDICARE, MEDICAID, SELFPAY ==
[2021-09-21 11:33] VITALS: BP 152/62; PULSE 52; RESP 18; TEMP 36.4; O2SAT 97; BMI 20.6
[2021-09-21] MEDS: Lactated Ringers 1,000 ML 15 ML IV (11:42)
--- NOTE | 2021-09-21 12:14 | HP.PCM_ITS ---
History and Physical Date of Admission: 09/21/21 66-year-old female, currently under the care of Danae Patel, who presents for a screening colonoscopy. She is not having problems with her bowels at this time. She denies abdominal pain. She denies any chest pain. She does have mild shortness of breath at baseline due to pre-existing history of COPD. She denies any cough or any recent illnesses. Overall she is feeling very well. Review of systems otherwise negative from a constitutional, HEENT, respiratory, cardiovascular, GI, genitourinary, musculoskeletal, skin, neurologic, psychiatric and hematologic system unless stated above. 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 Accompanied by: Self Is patient in pain?: No Allergies hydrocodone bitartrate [From Vicodin] Allergy HALLUCINATES fish derived Adverse Reaction Anaphylaxis morphine Adverse Reaction HALLUCINATES PFSH Medical History Abdominal pain Anxiety disorder Bronchitis CAD (coronary artery disease) Chest pain COPD (chronic obstructive pulmonary disease) Diaphragm paralysis Fuchs' corneal dystrophy History of cerebrovascular disease History of CVA (cerebrovascular accident) HTN (hypertension) Hypoxia Surgical History History bilateral cataract surgery History left shoulder surgery History of tubal ligation Family History Mother Diabetes Heart disease Hypertension High cholesterol Father Heart disease Hypertension High cholesterol CVA (cerebral vascular accident) Social History housing: apartment pets and animals: Yes pets and animals: dog(s) Smoking Status: Former smoker quit date: 10/28/19 pack-years: 25 Tobacco: How many years used: 25 second hand exposure: Yes alcohol intake: never substance use type: does not use Exam Const Constitutional: Positive conversant, cooperative, in no acute respiratory distress, healthy appearing, well developed, well nourished, good hygiene and appears older than stated age Head Head: Yes normocephalic and Yes atraumatic Eyes Eye: Positive clear conjunctiva; Negative nystagmus or scleral abnormality Ears Ear: Positive hearing normal and external ears normal; Negative hard of hearing Mouth Mouth: Positive posterior oropharynx is adequate; Negative oral mucosae normal (Cobblestone appearance) or oral thrush present Mallampati Score: I: Mallampati Score Neck Neck: Positive normal visual inspection, full ROM and trachea midline Chest Wall Chest: Positive normal inspection of the chest and symmetric chest movement; Negative increased A/P diameter Resp lung sounds: Positive diminished lung sounds, normal expiratory time and normal respiratory effort; Negative wheezes, rhonchi or rales Cardio Cardiac: Positive regular rate, regular rhythm, S1 normal and S2 normal; Negative murmur GI GI: Positive normal to inspection; Negative distended Genitourinary: Positive deferred Musc Musculoskeletal: Positive steady gait and ROM normal; Negative kyphosis or scoliosis Skin Pulmonary Skin Exam: Positive intact; Negative lesion, rash or ulcers Extremities Extremities: No clubbing, No cyanosis and Yes edema (2+ bilateral) Location: lower extremity Neuro Neurologic: Yes no focal neuro deficits, Yes conversant, Yes cooperative, Yes normal cognition, Yes normal coordination, Yes normal concentration and Yes understands questions Psych Appearance: Positive grossly normal, eye contact and well kempt Mental Status: Positive mental status grossly normal Mood: Positive congruent mood Affect: Positive normal affect 66-year-old with COPD, CAD status post PCI with stents arrives here for screening colonoscopy. She was explained alternatives, risk, benefits including outstanding bleeding, infection, sepsis, perforation, need for emergent evaluation of an ASA of 3.
[2021-09-21 13:17] VITALS: BP 100/60; BP 152/62; PULSE 51; RESP 16; TEMP 36.2; O2SAT 97
[2021-09-21 13:20] VITALS: BP 100/60; BP 152/62; PULSE 49; RESP 16; O2SAT 98
--- NOTE | 2021-09-21 13:22 | OP.COLON_ITS ---
Patient Name: Temitope Castellon Procedure Date: 09/21/2021 12:45 PM Date of : 1955 Age: 66 Procedure: Colonoscopy Indications: Screening for colorectal malignant neoplasm Providers: Los Barakat DO Referring MD: Los Barakat DO Medicines: See the Anesthesia note for documentation of the administered medications Patient Profile: Last Colonoscopy: 10 years ago. Complications: No immediate complications. Procedure: Pre-Anesthesia Assessment: - Prior to the procedure, a History and Physical was performed, and patient medications and allergies were reviewed. The patient is competent. The risks and benefits of the procedure and the sedation options and risks were discussed with the patient. All questions were answered and informed consent was obtained. Patient identification and proposed procedure were verified by the physician in the pre-procedure area. Mental Status Examination: alert and oriented. Airway Examination: normal oropharyngeal airway and neck mobility. Respiratory Examination: clear to auscultation. CV Examination: normal. Prophylactic Antibiotics: The patient does not require prophylactic antibiotics. Prior Anticoagulants: The patient has taken no previous anticoagulant or antiplatelet agents. After reviewing the risks and benefits, the patient was deemed in satisfactory condition to undergo the procedure. The anesthesia plan was to use moderate sedation / analgesia (conscious sedation). Immediately prior to administration of medications, the patient was re-assessed for adequacy to receive sedatives. The heart rate, respiratory rate, oxygen saturations, blood pressure, adequacy of pulmonary ventilation, and response to care were monitored throughout the procedure. The physical status of the patient was re-assessed after the procedure. After I obtained informed consent, the scope was passed under direct vision. Throughout the procedure, the patient's blood pressure, pulse, and oxygen saturations were monitored continuously. The Colonoscope was introduced through the anus and advanced to the cecum, identified by the appendiceal orifice, ileocecal valve and palpation. The colonoscopy was performed without difficulty. The patient tolerated the procedure well. The quality of the bowel preparation was adequate. Moderate Sedation: Moderate (conscious) sedation was administered by the endoscopy nurse and supervised by the endoscopist. The patient's oxygen saturation, heart rate, blood pressure and response to care were monitored. Total physician intraservice time was 15 minutes. Scope In: 12:55:38 PM Scope Withdrawal Time 0 hours 13 minutes 7 seconds Scope Out: 1:14:38 PM Total Procedure Duration Time 0 hours 19 minutes 0 seconds Findings: Hemorrhoids were found on perianal exam. Multiple small and large-mouthed diverticula were found in the recto-sigmoid colon, sigmoid colon and descending colon. A moderate amount of liquid stool was found in the recto-sigmoid colon, in the sigmoid colon, at the splenic flexure, at the hepatic flexure and in the cecum, making visualization difficult. Lavage of the area was performed using 50 - 200 mL of sterile water, resulting in clearance with adequate visualization. Impression: - Hemorrhoids found on perianal exam. - Diverticulosis in the recto-sigmoid colon, in the sigmoid colon and in the descending colon. - Stool in the recto-sigmoid colon, in the sigmoid colon, at the splenic flexure, at the hepatic flexure and in the cecum. - No specimens collected. Recommendation: - Discharge patient to home. - Resume previous diet. - Continue present medications. - Repeat colonoscopy in 5 years for surveillance. Procedure Code(s): --- Professional --- 55185, Colonoscopy, flexible; diagnostic, including collection of specimen(s) by brushing or washing, when performed (separate procedure) G0500, Moderate sedation services provided by the same physician or other qualified health home care chaplain performing a gastrointestinal endoscopic service that sedation supports, requiring the presence of an independent trained observer to assist in the monitoring of the patient's level of consciousness and physiological status; initial 15 minutes of intra-service time; patient age 5 years or older (additional time may be reported with 64506, as appropriate) CPT copyright 2017 [employer]. All rights reserved. The codes documented in this report are preliminary and upon varnish melter review may be revised to meet current compliance requirements. Los Barakat DO 09/21/2021 1:22:37 PM This report has been signed electronically. Number of Addenda: 1 Note Initiated On: 09/21/2021 12:45 PM Addendum Number: 1 Addendum Date: 02/24/2022 6:24:31 AM MAC was used as sedation for this procedure. Los Barakat DO 02/24/2022 6:24:38 AM This report has been signed electronically.
--- NOTE | 2021-09-21 13:23 | OP.CCLET_ITS ---
02/24/2022 Danae Patel [facility] Re : Colonoscopy procedure for Temitope Castellon Dear [facility] This procedure was performed on Tuesday, September 21, 2021. My impressions and recommendations are as follows: Impressions : - Hemorrhoids found on perianal exam. - Diverticulosis in the recto-sigmoid colon, in the sigmoid colon and in the descending colon. - Stool in the recto-sigmoid colon, in the sigmoid colon, at the splenic flexure, at the hepatic flexure and in the cecum. - No specimens collected. Recommendations : - Discharge patient to home. - Resume previous diet. - Continue present medications. - Repeat colonoscopy in 5 years for surveillance. My findings are described in the full procedure note, which is enclosed. If I can be of further assistance, please feel free to contact me at . Sincerely, Los Barakat, 09/21/2021 1:22:37 PM This report has been signed electronically.
[2021-09-21 13:25] VITALS: BP 114/64; BP 152/62; PULSE 47; RESP 16; O2SAT 98
[2021-09-21 13:30] VITALS: BP 134/70; BP 152/62; PULSE 45; RESP 16; TEMP 36.2; O2SAT 99
[2021-09-21 13:58] VITALS: BP 152/62
== END 2021-09-21 14:07 | disposition home or self-care (01) ==
LOC: EN 11:08 → AC 11:09
PROVIDERS: Referring Provider Internal Medicine Gastroenterology; Visit Provider Internal Medicine Gastroenterology
PROC: 0DJD8ZZ Inspection of Lower Intestinal Tract, Via Natural or Artificial Opening Endoscopic (ICD-10-PCS; CPT 45378; principal; 2021-09-21 12:25)
DX: Z12.11 Encounter for screening for malignant neoplasm of colon (principal); J44.9 Chronic obstructive pulmonary disease, unspecified; K57.30 Diverticulosis of large intestine without perforation or abscess without bleeding; K64.9 Unspecified hemorrhoids; I10 Essential (primary) hypertension; I25.10 Atherosclerotic heart disease of native coronary artery without angina pectoris; I25.2 Old myocardial infarction; E78.00 Pure hypercholesterolemia, unspecified; E03.9 Hypothyroidism, unspecified; Z79.02 Long term (current) use of antithrombotics/antiplatelets; Z79.899 Other long term (current) drug therapy; Z86.73 Personal history of transient ischemic attack (TIA), and cerebral infarction without residual deficits; Z87.891 Personal history of nicotine dependence
CPT/HCPCS: 45378; 87426; C9803; J7120; J2405

== ENCOUNTER 2021-11-01 12:15 | Emergency (ER) | payer MEDICARE, MEDICAID, SELFPAY ==
[2021-11-01 12:16] VITALS: BP 147/73; PULSE 66; RESP 18; TEMP 36.9; O2SAT 97; BMI 21.3
--- NOTE | 2021-11-01 14:16 | EX.ED.DYSGE1 ---
HPI History of Present Illness Chief Complaint: Lower Extremity Injury Informant: patient Narrative Narrative: 66-year-old female presenting to the emergency department with left thigh pain. Patient states that in May she developed a circular area of bruising and had an ultrasound in June that was felt to represent hematoma versus lipoma. She states that as the past several months have gone on the skin has started to sink down into the tissue. It still bruised. She notes pain in the thigh. She states that she cannot get a hold of her doctors even though this has been going on for months. Patient states she needs to figure out what this is. She states that she did not have any infection in the area. [facility] Medical History Abdominal pain Ambulates with cane Anxiety Anxiety disorder Arthritis Bronchitis Bruising CAD (coronary artery disease) Chest pain COPD (chronic obstructive pulmonary disease) Depression Diaphragm paralysis Difficulty chewing Difficulty swallowing Easy bruising Former smoker Fuchs' corneal dystrophy Gastric reflux High cholesterol History of cerebrovascular disease History of CVA (cerebrovascular accident) History of echocardiogram History of heart attack History of hiatal hernia History of IBS History of irregular heartbeat History of renal disease History of stress test HTN (hypertension) Hypoxia Restless legs Shortness of breath on exertion Skin tear Stroke/cerebrovascular accident Thyroid disease Wears dentures Wears glasses Home Medications clopidogrel 75 mg PO DAILY 07/07/18 [History Last Taken 06/12/19] cholecalciferol (vitamin D3) 125 mcg (5,000 unit) capsule 5,000 unit PO DAILY 08/14/18 [History Last Taken 06/12/19] acetaminophen 500 mg PO Q6H PRN PRN #28 tab 06/16/19 [Rx Last Taken Unknown] levocetirizine 5 mg tablet 5 mg PO DAILY 10/31/19 [History Last Taken Unknown] lisinopril 10 mg PO DAILY 03/21/20 [History Last Taken 09/21/21 09:30] atorvastatin 10 mg tablet 10 mg PO QHS tab 08/17/21 [History Last Taken Unknown] citalopram 10 mg tablet 10 mg PO DAILY tab 08/17/21 [History Last Taken Unknown] levothyroxine 50 mcg tablet 50 mcg PO DAILY tab 08/17/21 [History Last Taken Unknown] oxycodone-acetaminophen 1 tab PO Q6H PRN PRN 3 Days #12 tablet 11/01/21 [Rx Last Taken Unknown] Allergy/AdvReac Type Severity Reaction Status Date / Time hydrocodone bitartrate Allergy HALLUCINATE Verified 11/01/21 12:16 [From Vicodin] S fish derived AdvReac Anaphylaxis Verified 11/01/21 12:16 morphine AdvReac HALLUCINATE Verified 11/01/21 12:16 S Family History Mother Diabetes Heart disease Hypertension High cholesterol Father Heart disease Hypertension High cholesterol CVA (cerebral vascular accident) Surgical History History bilateral cataract surgery History left shoulder surgery History of tubal ligation Social History housing: apartment pets and animals: Yes pets and animals: dog(s) Smoking Status: Former smoker quit date: 10/28/19 pack-years: 25 Tobacco: How many years used: 25 second hand exposure: Yes alcohol intake: never substance use type: does not use ROS ROS ED Constitutional Constitutional ED: Denies chills or weight loss Eyes Eyes: Denies change in vision or diplopia ENT ENT ED: Denies ear pain, rhinorrhea or sore throat Cardiovascular Cardiovascular: Denies chest pain, orthopnea, palpitations or racing heartbeat Respiratory/Chest Respiratory/Chest: Denies cough, dyspnea or orthopnea Gastrointestinal Gastrointestinal: Denies abdominal pain, diarrhea, nausea or vomiting Genitourinary Genitourinary ED: Denies dysuria, hematuria or urinary frequency Musculoskeletal Musculoskeletal: Reports other Details: See history of present illness ; Denies arthralgias or myalgias Integumentary Denies abscess or rash Neurologic Neurologic: Denies headache(s) or weakness Psychiatric Psychiatric: Denies anxiety, depression, suicidal ideation or suicidal thoughts Endocrine Endocrinology: Denies polydipsia, polyphagia or polyuria Allergic/Immunologic Allergic/Immunologic ED: Denies mouth swelling, tongue swelling or urticaria EXAM Physical Exam Const Vital Signs: 11/01/21 12:16 Temperature 98.5 F Temperature Source Temporal Pulse Rate 66 Respiratory Rate 18 Blood Pressure 147/73 H Blood Pressure Mean 97 Pulse Ox 97 Oxygen Delivery Method Room Air Positive well nourished and well developed General Appearance ED: well developed HEENT Reports normocephalic, head/scalp atraumatic, TM's clear and moist mucous membranes Negative for trauma Tympanic Membrane ED: Yes TM's clear Eyes PERRL and EOMs intact bilaterally Neck no lymphadenopathy, supple and no JVD Resp normal respiratory effort and clear to auscultation bilaterally Cardio regular rate, regular rhythm and no murmurs GI normal to inspection, nondistended, normoactive bowel sounds and non-tender Palpation: soft Back/Spine no CVA tenderness and normal ROM Extremity Extremity Narrative: Left anterior mid thigh demonstrates a 3 cm round area of skin that is some ecchymosis but the purple. This tissue is sunken in to the thigh from the rest of the thigh tissue. She reports tenderness. There is no erythema. General Extremety ED: Negative for edema General Extremity: Negative for edema Neuro oriented x3 and CN's II-XII intact bilaterally Sensorium / Orientation: alert Motor Exam: strength 5/5 throughout Psych mental status grossly normal Mood & Affect: Negative for depressed or tearful Skin no rashes or lesions noted MDM MDM MDM Narrative Medical decision making narrative: Basic blood work negative. CT of the leg demonstrates a soft tissue defect. There is essentially no subcutaneous tissue between the skin body and muscle volume. Does not appear to Lab Data Attestation: I reviewed the patient's lab results. Labs: Laboratory Results - last 24 hr 11/01/21 11/01/21 14:30 14:30 WBC 3.5 L RBC 4.61 Hgb 13.8 Hct 42.8 MCV 92.8 MCH 29.9 MCHC 32.2 RDW Std Deviation 45.1 H RDW Coeff of Keo 13.2 Plt Count 208 MPV 8.6 Immature Gran % (Auto) 0.300 Neut % (Auto) 56.0 Lymph % (Auto) 32.1 Finney % (Auto) 8.2 Eos % (Auto) 2.3 Baso % (Auto) 1.1 H Absolute Neuts (auto) 2.0 Absolute Lymphs (auto) 1.13 Nucleated RBC % 0 Sodium 141 Potassium 4.5 Chloride 112 H Carbon Dioxide 28.0 Anion Gap 1 L BUN 15 Creatinine 0.89 Estim Creat Clear Calc 59.78 Est GFR (MDRD) Af Amer 83 Est GFR (MDRD) Non-Af 68 BUN/Creatinine Ratio 16.9 Glucose 90 Calcium 8.8 Radiography Diagnostic Testing: Clinical Impression(s) from Imaging Studies Lower Extremity CT 11/01/21 15:58 IMPRESSION: Unremarkable examination. Electronically Signed: Oskar Castillo MD at 15:19 EDT , Discharge Plan Triage Chief Complaint: Lower Extremity Injury ED Provider: Merlin aBe Dx/Rx/DC Orders Clinical Impression: Acute pain of left thigh Prescriptions: New oxycodone-acetaminophen [oxycodone-acetaminophen] 1 TABLET tablet 1 tab PO Q6H PRN PRN (Reason: Pain) 3 Days Qty: 12 RF: 0 No Action cholecalciferol (vitamin D3) 5,000 unit capsule 5,000 unit PO DAILY RF: 0 levocetirizine [Allergy Relief (levocetirizin)] 5 mg tablet 5 mg PO DAILY RF: 0 citalopram 10 mg tablet 10 mg PO DAILY RF: 0 levothyroxine 50 mcg tablet 50 mcg PO DAILY RF: 0 atorvastatin 10 mg tablet 10 mg PO QHS RF: 0 clopidogrel 75 MG tablet 75 mg PO DAILY RF: 0 acetaminophen 500 MG tablet 500 mg PO Q6H PRN PRN (Reason: Pain Or Fever) Qty: 28 RF: 0 lisinopril 10 MG tablet 10 mg PO DAILY RF: 0 Primary Care Provider: [facility] Danae Valdez Referrals: [facility] Danae Valdez [Primary Care Provider] - Activity Restrictions/Additional Instructions: Please call Plastic Surgery at [facility] (Jeff Victor MD [phone]) Disposition Disposition: Home, Self Care
[2021-11-01 14:35] LABS: Absolute Lymphocyte Count 1.13 X10^3/uL (0.83-4.51); Basophil# 0.04 X10^3/uL; Basophil% 1.1 % (0-1); Eosinophil# 0.08 X10^3/uL; Eosinophils% 2.3 % (0-5); Hematocrit 42.8 % (37-47); Hemoglobin 13.8 g/dL (12.0-15.0); Lymphocyte # 1.13 X10^3/ul (0.83-4.51); Lymphocyte % 32.1 % (19-41); Mean Corp Hgb Conc 32.2 g/dL (32-36); Mean Corpuscular Hgb 29.9 pg (27.0-32.0); Mean Corpuscular Volume 92.8 fL (81-99); Mean Platelet Vol. 8.6 fl (6.2-12.0); Monocyte# 0.29 X10^3/uL; Monocyte% 8.2 % (0-10); NRBC Flagged by Analyzer 0 % (0-5); Neutrophil # 1.97 X10^3/uL (2.7-7.7); Platelet Count 208 K/mm3 (150-450); RBC Distribution Width CV 13.2 % (11.6-14.6); RBC Distribution Width SD 45.1 fl (35.1-43.9); Red Blood Count 4.61 M/mm3 (4.2-5.4); White Blood Count 3.5 K/mm3 (4.4-11.0)
[2021-11-01 14:49] LABS: Anion Gap 1 (5-15); BUN 15 mg/dL (7-18); BUN/Creat Ratio 16.9 RATIO (10-20); Calcium,Total 8.8 mg/dL (8.5-10.1); Chloride 112 mmol/L (98-107); Creatinine, Serum 0.89 mg/dL (0.55-1.02); EST Glomerular Filtration Rate 68 mL/min (>60); Est Glom Filt Rate - Afr Amer 83 mL/min (>60); Estimated Creatinine Clearance 59.78 ml/min; Glucose 90 mg/dL (74-106); Potassium 4.5 mmol/L (3.5-5.1); Sodium Level 141 mmol/L (136-145)
--- NOTE | 2021-11-01 15:58 | CT_ITS ---
STUDY: CT SCAN LOWER EXTREMITY LEFT REASON FOR EXAM: Female, 66 years old. Pain and soft tissue defect RADIATION DOSAGE (If Supplied By Facility): CTDIvol = ( 15.35 ) mGy, DLP = ( 722.19 ) mGycm. Individualized dose optimization techniques were used for this CT.? TECHNIQUE: Multiple axial tomographic images of the left thigh were obtained following 100 mL of ISOVUE-300 given intravenously. Coronal and sagittal reconstruction was obtained as well. COMPARISON: None. FINDINGS: The bony structures are unremarkable. The soft tissues are unremarkable as well. No abnormality is seen. CT/Extremity Lower WITH Contrast IMPRESSION: Unremarkable examination. Electronically Signed: Oskar Castillo MD at 15:19 EDT ,
== END 2021-11-01 15:40 | disposition home or self-care (01) ==
PROVIDERS: Emergency Provider Emergency Medicine; Visit Provider Emergency Medicine
DX: M79.652 Pain in left thigh (principal); J44.9 Chronic obstructive pulmonary disease, unspecified; E78.00 Pure hypercholesterolemia, unspecified; I25.10 Atherosclerotic heart disease of native coronary artery without angina pectoris; I10 Essential (primary) hypertension; I25.2 Old myocardial infarction; E07.9 Disorder of thyroid, unspecified; M19.90 Unspecified osteoarthritis, unspecified site; F41.9 Anxiety disorder, unspecified; Z79.02 Long term (current) use of antithrombotics/antiplatelets; Z79.899 Other long term (current) drug therapy; Z86.73 Personal history of transient ischemic attack (TIA), and cerebral infarction without residual deficits; Z87.891 Personal history of nicotine dependence
CPT/HCPCS: 73701; 80048; 85025; 99283; Q9967; A4216

== ENCOUNTER 2021-12-08 13:29 | Emergency (ER) | payer MEDICARE, MEDICAID, SELFPAY ==
[2021-12-08 13:29] VITALS: BP 160/70; PULSE 81; RESP 16; TEMP 36.8; O2SAT 94; BMI 22.8
--- NOTE | 2021-12-08 13:38 | RAD_ITS ---
STUDY: X-RAY - LEFT FOOT CLINICAL: Female, 66 years old. Injury -- attn: great toe TECHNIQUE: 3 view(s) of the foot. COMPARISON: None. FINDINGS: Normal talus, calcaneus, and tarsal bones. Normal visualized subtalar, talonavicular, calcaneocuboid, tarsal and tarsometatarsal articulations. Normal metatarsi. Normal metatarsophalangeal joint of the great toe. There is a bipartite tibial sesamoid. Normal interphalangeal joint of the great toe. Normal phalanges of the great toe. Normal second through fifth metatarsophalangeal joints. Normal interphalangeal joints and phalanges of the lesser toes. The soft tissue structures are unremarkable. RAD/Foot min 3 Views IMPRESSION: Normal x-ray examination of the foot. Electronically Signed: Oskar Castillo MD at 14:03 EDT ,
--- NOTE | 2021-12-08 13:39 | EDS_ITS ---
HPI History of Present Illness Chief Complaint: Lower Extremity Injury Detail of Chief Complaint: Left great toe injury Informant: patient Onset/Context/Timing Onset: Weeks Context: Sudden Onset Timing: Waxes and wanes Quality of Pain: Aching and Throbbing Current Severity: Mild Maximum Severity: Moderate Narrative Narrative: Patient presents with continued pain to her left great toe after injuring it a week ago. She states she opened a heavy door into her toe. She was wearing sandals at the time. She did have bleeding around the toenail at the time. She presents to the ER today because of continued pain. [facility] Medical History Abdominal pain Ambulates with cane Anxiety Anxiety disorder Arthritis Bronchitis Bruising CAD (coronary artery disease) Chest pain COPD (chronic obstructive pulmonary disease) Depression Diaphragm paralysis Difficulty chewing Difficulty swallowing Easy bruising Former smoker Fuchs' corneal dystrophy Gastric reflux High cholesterol History of cerebrovascular disease History of CVA (cerebrovascular accident) History of echocardiogram History of heart attack History of hiatal hernia History of IBS History of irregular heartbeat History of renal disease History of stress test HTN (hypertension) Hypoxia Restless legs Shortness of breath on exertion Skin tear Stroke/cerebrovascular accident Thyroid disease Wears dentures Wears glasses Home Medications clopidogrel 75 mg tablet 75 mg PO DAILY 07/07/18 [History Last Taken 06/12/19] cholecalciferol (vitamin D3) 125 mcg (5,000 unit) capsule 5,000 unit PO DAILY 08/14/18 [History Last Taken 06/12/19] acetaminophen 500 mg tablet 500 mg PO Q6H PRN PRN Pain Or Fever #28 tabs 06/16/19 [Rx Last Taken Unknown] levocetirizine 5 mg tablet (Allergy Relief (levocetirizine)) 5 mg PO DAILY 10/31/19 [History Last Taken Unknown] lisinopril 10 mg tablet 10 mg PO DAILY 03/21/20 [History Last Taken 09/21/21 09:30] atorvastatin 10 mg tablet 10 mg PO QHS 08/17/21 [History Last Taken Unknown] citalopram 10 mg tablet 10 mg PO DAILY 08/17/21 [History Last Taken Unknown] levothyroxine 50 mcg tablet 50 mcg PO DAILY 08/17/21 [History Last Taken Unknown] oxycodone-acetaminophen 5 mg-325 mg tablet 1 tab PO Q6H PRN PRN Pain 3 days #12 TABLETS 11/01/21 [Rx Last Taken Unknown] naproxen 500 mg tablet (Naprosyn) 500 mg PO BID PRN pain #20 tabs 12/08/21 [Rx Last Taken Unknown] Allergy/AdvReac Type Severity Reaction Status Date / Time hydrocodone bitartrate Allergy HALLUCINATE Verified 12/08/21 13:30 [From Vicodin] S fish derived AdvReac Anaphylaxis Verified 12/08/21 13:30 morphine AdvReac HALLUCINATE Verified 12/08/21 13:30 S Family History Mother Diabetes Heart disease Hypertension High cholesterol Father Heart disease Hypertension High cholesterol CVA (cerebral vascular accident) Surgical History History bilateral cataract surgery History left shoulder surgery History of tubal ligation Social History housing: apartment pets and animals: Yes pets and animals: dog(s) Smoking Status: Former smoker quit date: 10/28/19 pack-years: 25 Tobacco: How many years used: 25 second hand exposure: Yes alcohol intake: never substance use type: does not use ROS ROS ED Constitutional Constitutional ED: Denies chills or fever(s) Eyes Eyes: Denies change in vision or discharge from eye(s) ENT ENT ED: Denies discharge from eye(s), rhinorrhea or sore throat Cardiovascular Cardiovascular: Denies chest pain or palpitations Respiratory/Chest Respiratory/Chest: Denies cough or dyspnea Gastrointestinal Gastrointestinal: Denies abdominal pain, nausea or vomiting Genitourinary Genitourinary ED: Denies difficulty urinating or dysuria Musculoskeletal Musculoskeletal: Reports extremity pain; Denies back pain Integumentary Denies Abrasions or rash Neurologic Neurologic: Denies headache(s) or weakness Allergic/Immunologic Allergic/Immunologic ED: Denies lip swelling or urticaria EXAM Physical Exam Const Vital Signs: 12/08/21 13:29 Temperature 98.2 F Temperature Source Temporal Pulse Rate 81 Respiratory Rate 16 Blood Pressure 160/70 H Blood Pressure Mean 100 Pulse Ox 94 Oxygen Delivery Method Room Air Positive well nourished and well developed General Appearance ED: well developed HEENT Reports moist mucous membranes normocephalic and atraumatic Eyes PERRL Chest Wall inspection of chest normal and palpation of chest normal Resp normal respiratory effort, no retractions and clear to auscultation bilaterally Cardio regular rate and regular rhythm GI non-tender Extremity Extremity Narrative: Dried blood noted under the distal aspect of the left toenail. Ecchymosis noted along the proximal base of the toenail. Mild edema noted to the left great toe with diffuse tenderness to palpation. No tenderness over the metatarsals or calcaneus. Neuro oriented x3 Sensorium / Orientation: alert Psych mental status grossly normal MDM MDM MDM Narrative Medical decision making narrative: Patient sent for x-ray of her left foot. Radiography Diagnostic Testing: Clinical Impression(s) from Imaging Studies Foot X-Ray 12/08/21 13:38 IMPRESSION: Normal x-ray examination of the foot. Electronically Signed: Oskar Castillo MD at 14:03 EDT , Treatment and Re-Evaluation Narrative: Left foot x-ray per my interpretation reveals no acute fracture. Radiology interpretation is reviewed and agrees. Patient will be given a postop shoe. She will be given anti-inflammatories. Discharge Plan Triage Chief Complaint: Lower Extremity Injury ED Provider: Lili Roque Dx/Rx/DC Orders Clinical Impression: Contusion of great toe, left Instructions: ED Foot Contusion Prescriptions: New naproxen [Naprosyn] 500 mg tablet 500 mg PO BID PRN (Reason: pain) Qty: 20 0RF No Action cholecalciferol (vitamin D3) 5,000 unit capsule 5,000 unit PO DAILY levocetirizine [Allergy Relief (levocetirizin)] 5 mg tablet 5 mg PO DAILY citalopram 10 mg tablet 10 mg PO DAILY levothyroxine 50 mcg tablet 50 mcg PO DAILY Label Comments: TAKE 1 TABLET BY MOUTH EVERY DAY atorvastatin 10 mg tablet 10 mg PO QHS clopidogrel 75 MG tablet 75 mg PO DAILY Label Comments: TAKE ONE TABLET BY MOUTH EVERY DAY acetaminophen 500 MG tablet 500 mg PO Q6H PRN PRN (Reason: Pain Or Fever) Qty: 28 0RF lisinopril 10 MG tablet 10 mg PO DAILY oxycodone-acetaminophen [oxycodone-acetaminophen] 1 TABLET tablet 1 tab PO Q6H PRN PRN (Reason: Pain) 3 Days Qty: 12 0RF Primary Care Provider: Medical Danae Valdez Referrals: Medical Danae Valdez [Primary Care Provider] - 1-2 Weeks Disposition Disposition: Home, Self Care
[2021-12-08] MEDS: Naproxen 500 MG Tablet PO (14:24)
== END 2021-12-08 14:26 | disposition home or self-care (01) ==
PROVIDERS: Emergency Provider Emergency Medicine; Visit Provider Emergency Medicine
DX: S90.112A Contusion of left great toe without damage to nail, initial encounter (principal); J44.9 Chronic obstructive pulmonary disease, unspecified; I25.10 Atherosclerotic heart disease of native coronary artery without angina pectoris; E78.00 Pure hypercholesterolemia, unspecified; I10 Essential (primary) hypertension; E07.9 Disorder of thyroid, unspecified; Z87.891 Personal history of nicotine dependence; W22.8XXA Striking against or struck by other objects, initial encounter; Z79.899 Other long term (current) drug therapy
CPT/HCPCS: 73630; 99283

== ENCOUNTER 2021-12-10 16:33 | Emergency (ER) | payer MEDICARE, MEDICAID, SELFPAY ==
[2021-12-10 16:34] VITALS: BP 123/63; PULSE 75; RESP 18; TEMP 36.3; O2SAT 94; BMI 23.1
--- NOTE | 2021-12-10 17:08 | EX.ED.DYSGE1 ---
HPI History of Present Illness Chief Complaint: Wound Detail of Chief Complaint: Left great toe wound Informant: patient Onset/Context/Timing Onset: Weeks Context: Gradual Onset Current Severity: Moderate Maximum Severity: Moderate Narrative Narrative: Patient presents secondary to left great toe wound. She stubbed her toe about a week and a half ago on a door. I saw her in the ER 2 days ago where x-rays were unremarkable. She was given a postop shoe. She states since that time she has had some drainage in the distal point of her toe and has now developed a blister over the top of her left great toe. No fever or chills. [facility] Medical History Abdominal pain Ambulates with cane Anxiety Anxiety disorder Arthritis Bronchitis Bruising CAD (coronary artery disease) Chest pain COPD (chronic obstructive pulmonary disease) Depression Diaphragm paralysis Difficulty chewing Difficulty swallowing Easy bruising Former smoker Fuchs' corneal dystrophy Gastric reflux High cholesterol History of cerebrovascular disease History of CVA (cerebrovascular accident) History of echocardiogram History of heart attack History of hiatal hernia History of IBS History of irregular heartbeat History of renal disease History of stress test HTN (hypertension) Hypoxia Restless legs Shortness of breath on exertion Skin tear Stroke/cerebrovascular accident Thyroid disease Wears dentures Wears glasses Home Medications clopidogrel 75 mg tablet 75 mg PO DAILY 07/07/18 [History Last Taken 06/12/19] cholecalciferol (vitamin D3) 125 mcg (5,000 unit) capsule 5,000 unit PO DAILY 08/14/18 [History Last Taken 06/12/19] acetaminophen 500 mg tablet 500 mg PO Q6H PRN PRN Pain Or Fever #28 tabs 06/16/19 [Rx Last Taken Unknown] levocetirizine 5 mg tablet (Allergy Relief (levocetirizine)) 5 mg PO DAILY 10/31/19 [History Last Taken Unknown] lisinopril 10 mg tablet 10 mg PO DAILY 03/21/20 [History Last Taken 09/21/21 09:30] atorvastatin 10 mg tablet 10 mg PO QHS 08/17/21 [History Last Taken Unknown] citalopram 10 mg tablet 10 mg PO DAILY 08/17/21 [History Last Taken Unknown] levothyroxine 50 mcg tablet 50 mcg PO DAILY 08/17/21 [History Last Taken Unknown] oxycodone-acetaminophen 5 mg-325 mg tablet 1 tab PO Q6H PRN PRN Pain 3 days #12 TABLETS 11/01/21 [Rx Last Taken Unknown] naproxen 500 mg tablet (Naprosyn) 500 mg PO BID PRN pain #20 tabs 12/08/21 [Rx Last Taken Unknown] cephalexin 500 mg capsule 500 mg PO Q6 #40 caps 12/10/21 [Rx Last Taken Unknown] oxycodone-acetaminophen 5 mg-325 mg tablet (Percocet) 1 tab PO Q6H PRN pain 3 days #10 tabs 12/10/21 [Rx Last Taken Unknown] sulfamethoxazole 800 mg-trimethoprim 160 mg tablet (Bactrim DS) 1 tab PO BID #20 tabs 12/10/21 [Rx Last Taken Unknown] Allergy/AdvReac Type Severity Reaction Status Date / Time hydrocodone bitartrate Allergy HALLUCINATE Verified 12/10/21 16:35 [From Vicodin] S fish derived AdvReac Anaphylaxis Verified 12/10/21 16:35 morphine AdvReac HALLUCINATE Verified 12/10/21 16:35 S Family History Mother Diabetes Heart disease Hypertension High cholesterol Father Heart disease Hypertension High cholesterol CVA (cerebral vascular accident) Surgical History History bilateral cataract surgery History left shoulder surgery History of tubal ligation Social History housing: apartment pets and animals: Yes pets and animals: dog(s) Smoking Status: Former smoker quit date: 10/28/19 pack-years: 25 Tobacco: How many years used: 25 second hand exposure: Yes alcohol intake: never substance use type: does not use ROS ROS ED Constitutional Constitutional ED: Denies chills or fever(s) Eyes Eyes: Denies change in vision or discharge from eye(s) ENT ENT ED: Denies discharge from eye(s), rhinorrhea or sore throat Cardiovascular Cardiovascular: Denies chest pain or palpitations Respiratory/Chest Respiratory/Chest: Denies cough or dyspnea Gastrointestinal Gastrointestinal: Denies abdominal pain, diarrhea, nausea or vomiting Genitourinary Genitourinary ED: Denies dysuria Musculoskeletal Musculoskeletal: Reports extremity pain; Denies back pain Integumentary Reports other Details: Left great toe blister ; Denies Abrasions or rash Neurologic Neurologic: Denies headache(s) or weakness Psychiatric Psychiatric: Denies anxiety or depression Allergic/Immunologic Allergic/Immunologic ED: Denies lip swelling or urticaria EXAM Physical Exam Const Vital Signs: 12/10/21 16:34 Temperature 97.4 F L Temperature Source Temporal Pulse Rate 75 Respiratory Rate 18 Blood Pressure 123/63 H Blood Pressure Mean 83 Pulse Ox 94 Oxygen Delivery Method Room Air Positive well nourished and well developed General Appearance ED: well developed HEENT Reports moist mucous membranes Eyes PERRL and EOMs intact bilaterally Neck no lymphadenopathy Chest Wall inspection of chest normal and palpation of chest normal Resp normal respiratory effort and clear to auscultation bilaterally Cardio regular rate and regular rhythm GI normal to inspection, nondistended, normoactive bowel sounds Extremity Extremity Narrative: Blister approximately 1 cm in diameter noted over the top of the left great toe. It is noted that the postop shoe abuts this area and seems to be irritating it. Small area of skin discoloration over the distal aspect of the toe consistent with a developing blister. No drainage noted at this time. No cellulitis. Neuro oriented x3 Psych mental status grossly normal MDM MDM MDM Narrative Medical decision making narrative: Left foot x-rays were obtained. Radiography Diagnostic Testing: Clinical Impression(s) from Imaging Studies Foot X-Ray 12/10/21 17:20 IMPRESSION: Great toe soft tissue swelling with no evidence of focal osseous erosion. If clinical suspicion of osteomyelitis recommend MRI imaging. Electronically Signed: You Bundy DO at 17:33 EDT , Treatment and Re-Evaluation Narrative: Left foot x-ray per my interpretation mild soft tissue swelling of the left great toe. No subcutaneous air noted. No bony destruction. Patient's left great toe was cleansed. 22-gauge needle was used to withdraw the fluid from the blister. There was 1 cc of bloody purulent material obtained. Wound is cleansed and dressed with antibiotic ointment and gauze padding. I padded her toe to prevent irritation from the postop shoe. She will be given prescription for Bactrim and Keflex as well as a few Percocet for pain. She will be referred to the wound center for follow-up. Discharge Plan Triage Chief Complaint: Wound ED Provider: Lili Roque Dx/Rx/DC Orders Clinical Impression: Contusion of great toe of left foot, Infection of great toe Instructions: ED Foot Contusion, ED Wound Check (Infection) Prescriptions: New sulfamethoxazole-trimethoprim [Bactrim DS] 800-160 mg tablet 1 tab PO BID Qty: 20 0RF cephalexin 500 mg capsule 500 mg PO Q6 Qty: 40 0RF oxycodone-acetaminophen [Percocet] 5-325 mg tablet 1 tab PO Q6H PRN (Reason: pain) 3 Days Qty: 10 0RF No Action cholecalciferol (vitamin D3) 5,000 unit capsule 5,000 unit PO DAILY levocetirizine [Allergy Relief (levocetirizin)] 5 mg tablet 5 mg PO DAILY citalopram 10 mg tablet 10 mg PO DAILY levothyroxine 50 mcg tablet 50 mcg PO DAILY Label Comments: TAKE 1 TABLET BY MOUTH EVERY DAY atorvastatin 10 mg tablet 10 mg PO QHS clopidogrel 75 MG tablet 75 mg PO DAILY Label Comments: TAKE ONE TABLET BY MOUTH EVERY DAY acetaminophen 500 MG tablet 500 mg PO Q6H PRN PRN (Reason: Pain Or Fever) Qty: 28 0RF lisinopril 10 MG tablet 10 mg PO DAILY oxycodone-acetaminophen [oxycodone-acetaminophen] 1 TABLET tablet 1 tab PO Q6H PRN PRN (Reason: Pain) 3 Days Qty: 12 0RF naproxen [Naprosyn] 500 mg tablet 500 mg PO BID PRN (Reason: pain) Qty: 20 0RF Primary Care Provider: Medical Danae Valdez Referrals: Medical Danae Valdez [Primary Care Provider] - Center,Wound [NON-STAFF] - 5-7 Days Disposition Disposition: Home, Self Care
--- NOTE | 2021-12-10 17:20 | RAD_ITS ---
STUDY: X-RAY - LEFT FOOT CLINICAL: Female, 66 years old. infection, great toe. TECHNIQUE: 3 view(s) of the foot. COMPARISON: None. FINDINGS: Normal talus, calcaneus, and tarsal bones. Normal visualized subtalar, talonavicular, calcaneocuboid, tarsal and tarsometatarsal articulations. Normal metatarsi. Normal metatarsophalangeal joint of the great toe. Normal tibial and fibular sesamoid bones. Normal interphalangeal joint of the great toe. Normal phalanges of the great toe. Normal second through fifth metatarsophalangeal joints. Normal interphalangeal joints and phalanges of the lesser toes. Soft tissue swelling and mildly within the great toe is noted. RAD/Foot min 3 Views IMPRESSION: Great toe soft tissue swelling with no evidence of focal osseous erosion. If clinical suspicion of osteomyelitis recommend MRI imaging. Electronically Signed: You Bundy DO at 17:33 EDT ,
[2021-12-10] MEDS: Cephalexin 250 MG Capsule 500 MG PO (18:23)
[2021-12-10] MEDS: Smz/Tmp Ds Tablet 1 TABLET PO (18:24)
== END 2021-12-10 18:27 | disposition home or self-care (01) ==
PROVIDERS: Emergency Provider Emergency Medicine; Visit Provider Emergency Medicine
DX: S90.112A Contusion of left great toe without damage to nail, initial encounter (principal); J44.9 Chronic obstructive pulmonary disease, unspecified; I25.10 Atherosclerotic heart disease of native coronary artery without angina pectoris; I10 Essential (primary) hypertension; L08.9 Local infection of the skin and subcutaneous tissue, unspecified; E78.00 Pure hypercholesterolemia, unspecified; F41.9 Anxiety disorder, unspecified; F32.A Depression, unspecified; Z87.891 Personal history of nicotine dependence; W22.09XD Striking against other stationary object, subsequent encounter; Z79.899 Other long term (current) drug therapy
CPT/HCPCS: 99283; 73630

== ENCOUNTER 2021-12-12 18:35 | Inpatient (IN) | payer MEDICARE, MEDICAID, SELFPAY ==
[2021-12-12 18:37] VITALS: BP 113/63; PULSE 100; RESP 16; TEMP 36.4; O2SAT 100; BMI 22.6
--- NOTE | 2021-12-12 18:56 | ED.RN ---
also has pencil eraser size wound on tip of toe.
--- NOTE | 2021-12-12 19:03 | ED.VIS.LOWEX ---
HPI History of Present Illness Chief Complaint: Lower Extremity Injury Detail of Chief Complaint: Wound to left great toe Informant: patient Narrative Narrative: Patient presents to the emergency department complaint of a wound to her left great toe. Patient states that she stubbed her toe on November 29. Patient's been seen in the emergency department multiple times for this. She has had x-rays of her toe which were negative. Today she went to urgent care and was referred to the ER. 2 days ago she was in the emergency department and had a developing blister to the dorsum of the great toe and was started on Keflex and Bactrim. Today the foot is swollen and red and continues to be painful. She denies any fevers. Patient is not a diabetic. [facility] Medical History Abdominal pain Ambulates with cane Anxiety Anxiety disorder Arthritis Bronchitis Bruising CAD (coronary artery disease) Chest pain COPD (chronic obstructive pulmonary disease) Depression Diaphragm paralysis Difficulty chewing Difficulty swallowing Easy bruising Former smoker Fuchs' corneal dystrophy Gastric reflux High cholesterol History of cerebrovascular disease History of CVA (cerebrovascular accident) History of echocardiogram History of heart attack History of hiatal hernia History of IBS History of irregular heartbeat History of renal disease History of stress test HTN (hypertension) Hypoxia Restless legs Shortness of breath on exertion Skin tear Stroke/cerebrovascular accident Thyroid disease Wears dentures Wears glasses Home Medications clopidogrel 75 mg tablet 75 mg PO DAILY 07/07/18 [History Last Taken 06/12/19] cholecalciferol (vitamin D3) 125 mcg (5,000 unit) capsule 5,000 unit PO DAILY 08/14/18 [History Last Taken 06/12/19] acetaminophen 500 mg tablet 500 mg PO Q6H PRN PRN Pain Or Fever #28 tabs 06/16/19 [Rx Last Taken Unknown] levocetirizine 5 mg tablet (Allergy Relief (levocetirizine)) 5 mg PO DAILY 10/31/19 [History Last Taken Unknown] lisinopril 10 mg tablet 10 mg PO DAILY 03/21/20 [History Last Taken 09/21/21 09:30] atorvastatin 10 mg tablet 10 mg PO QHS 08/17/21 [History Last Taken Unknown] citalopram 10 mg tablet 10 mg PO DAILY 08/17/21 [History Last Taken Unknown] levothyroxine 50 mcg tablet 50 mcg PO DAILY 08/17/21 [History Last Taken Unknown] oxycodone-acetaminophen 5 mg-325 mg tablet 1 tab PO Q6H PRN PRN Pain 3 days #12 TABLETS 11/01/21 [Rx Last Taken Unknown] naproxen 500 mg tablet (Naprosyn) 500 mg PO BID PRN pain #20 tabs 12/08/21 [Rx Last Taken Unknown] cephalexin 500 mg capsule 500 mg PO Q6 #40 caps 12/10/21 [Rx Last Taken Unknown] oxycodone-acetaminophen 5 mg-325 mg tablet (Percocet) 1 tab PO Q6H PRN pain 3 days #10 tabs 12/10/21 [Rx Last Taken Unknown] sulfamethoxazole 800 mg-trimethoprim 160 mg tablet (Bactrim DS) 1 tab PO BID #20 tabs 12/10/21 [Rx Last Taken Unknown] Allergy/AdvReac Type Severity Reaction Status Date / Time hydrocodone bitartrate Allergy HALLUCINATE Verified 12/12/21 18:40 [From Vicodin] S fish derived AdvReac Anaphylaxis Verified 12/12/21 18:40 morphine AdvReac HALLUCINATE Verified 12/12/21 18:40 S Family History Mother Diabetes Heart disease Hypertension High cholesterol Father Heart disease Hypertension High cholesterol CVA (cerebral vascular accident) Surgical History History bilateral cataract surgery History left shoulder surgery History of tubal ligation Social History housing: apartment pets and animals: Yes pets and animals: dog(s) Smoking Status: Former smoker quit date: 10/28/19 pack-years: 25 Tobacco: How many years used: 25 second hand exposure: Yes alcohol intake: never substance use type: does not use ROS ROS ED Review of Systems ROS Unobtainable: other Constitutional Constitutional ED: Reports lethargy; Denies chills, fever(s), sweats or weight loss Eyes Eyes: Denies blurry vision, change in vision or diplopia ENT ENT ED: Denies rhinorrhea or sore throat Cardiovascular Cardiovascular: Reports chest pain and racing heartbeat; Denies orthopnea Respiratory/Chest Respiratory/Chest: Reports dyspnea and dyspnea on exertion; Denies cough, orthopnea or sputum Gastrointestinal Gastrointestinal: Denies abdominal pain, diarrhea, nausea or vomiting Genitourinary Genitourinary ED: Denies dysuria, hematuria or urinary frequency Musculoskeletal Musculoskeletal: Reports other Details: Pain and redness and swelling to left great toe ; Denies arthralgias, back pain, myalgias or neck pain Integumentary Denies abscess, Abrasions or rash Neurologic Neurologic: Denies headache(s) or weakness Psychiatric Psychiatric: Denies anxiety, depression or suicidal thoughts Endocrine Endocrinology: Denies polydipsia, polyphagia or polyuria Hematologic/Lymphatic Hematologic/Lymphatic: Denies easy bleeding, easy bruising or lymphadenopathy Allergic/Immunologic Allergic/Immunologic ED: Denies mouth swelling, tongue swelling or urticaria EXAM Physical Exam Const Vital Signs: 12/12/21 18:37 Temperature 97.6 F L Temperature Source Temporal Pulse Rate 100 Respiratory Rate 16 Blood Pressure 113/63 Blood Pressure Mean 79 Pulse Ox 100 Oxygen Delivery Method Room Air Positive well nourished and well developed General Appearance ED: well developed and NAD HEENT Reports TM's clear and moist mucous membranes normocephalic and atraumatic; Negative for trauma or tenderness Tympanic Membrane ED: Yes TM's clear Eyes PERRL and EOMs intact bilaterally General Eye ED: Negative for pale conjunctiva or scleral icterus Neck no lymphadenopathy, supple and no JVD General: Negative for tenderness Chest Wall inspection of chest normal and palpation of chest normal Chest: Negative for tenderness Resp normal respiratory effort and clear to auscultation bilaterally Effort and Inspection: Negative for respiratory distress or pain with movement Auscultation: Negative for rhonchi, wheezes or diminished lung sounds Cardio regular rate, regular rhythm, S1 normal heart sound, S2 normal heart sound and no murmurs Peripheral Pulses: pulses 2+ throughout GI normal to inspection, nondistended, normoactive bowel sounds, soft to palpation, non-tender, non-distended and no masses Back/Spine no CVA tenderness and no thoracic nor lumbar tenderness Extremity Extremity Narrative: Left foot-evaluation of the great toe does reveal that she appears to have pus underneath the toenail. She has a large blister over the dorsum of the great toe. She had surrounding erythema and cellulitic changes that extend to the foot just inferior to the ankle. Patient has soft tissue swelling of the foot noted. General Extremety ED: Negative for edema General Extremity: Negative for edema Neuro oriented x3, CN's II-XII intact bilaterally, no sensory deficits noted and gait normal Sensorium / Orientation: awake, alert, oriented to person, oriented to place and oriented to time Motor Exam: strength 5/5 throughout and strength abnormal Psych mental status grossly normal Skin no rashes or lesions noted and no wounds MDM MDM MDM Narrative Medical decision making narrative: IV line established. Patient had the area of erythema on her foot outlined with permanent marker. Wound culture will be obtained as well as MRSA culture. Patient will be started on Zosyn and vancomycin IV. Lab work was unremarkable. Lactate was normal. Case will be discussed with hospitalist will evaluate patient for admission. Diagnosis will be left foot cellulitis failed outpatient therapy Lab Data Attestation: I reviewed the patient's lab results. Labs: Laboratory Results - last 24 hr 12/12/21 12/12/21 12/12/21 19:20 19:20 19:20 WBC 4.1 L RBC 4.37 Hgb 13.1 Hct 40.6 MCV 92.9 MCH 30.0 MCHC 32.3 RDW Std Deviation 44.9 H RDW Coeff of Keo 13.1 Plt Count 213 MPV 9.0 Immature Gran % (Auto) 0.200 Neut % (Auto) 56.1 Lymph % (Auto) 31.4 [place] % (Auto) 8.8 Eos % (Auto) 2.5 Baso % (Auto) 1.0 Absolute Neuts (auto) 2.3 Absolute Lymphs (auto) 1.28 Nucleated RBC % 0 Sodium 141 Potassium 4.6 Chloride 109 H Carbon Dioxide 29.0 Anion Gap 3 L BUN 22 H Creatinine 1.17 H Estim Creat Clear Calc 45.47 Est GFR (MDRD) Af Amer 60 Est GFR (MDRD) Non-Af 49 L BUN/Creatinine Ratio 18.8 Glucose 88 Lactic Acid 0.9 Calcium 9.3 Discharge Plan Triage Chief Complaint: Lower Extremity Injury Other Complaint: Wound ED Provider: Bina Walter Dx/Rx/DC Orders Clinical Impression: Cellulitis of foot, left Prescriptions: No Action cholecalciferol (vitamin D3) 5,000 unit capsule 5,000 unit PO DAILY levocetirizine [Allergy Relief (levocetirizin)] 5 mg tablet 5 mg PO DAILY citalopram 10 mg tablet 10 mg PO DAILY levothyroxine 50 mcg tablet 50 mcg PO DAILY Label Comments: TAKE 1 TABLET BY MOUTH EVERY DAY atorvastatin 10 mg tablet 10 mg PO QHS clopidogrel 75 MG tablet 75 mg PO DAILY Label Comments: TAKE ONE TABLET BY MOUTH EVERY DAY acetaminophen 500 MG tablet 500 mg PO Q6H PRN PRN (Reason: Pain Or Fever) Qty: 28 0RF lisinopril 10 MG tablet 10 mg PO DAILY oxycodone-acetaminophen [oxycodone-acetaminophen] 1 TABLET tablet 1 tab PO Q6H PRN PRN (Reason: Pain) 3 Days Qty: 12 0RF naproxen [Naprosyn] 500 mg tablet 500 mg PO BID PRN (Reason: pain) Qty: 20 0RF sulfamethoxazole-trimethoprim [Bactrim DS] 800-160 mg tablet 1 tab PO BID Qty: 20 0RF cephalexin 500 mg capsule 500 mg PO Q6 Qty: 40 0RF oxycodone-acetaminophen [Percocet] 5-325 mg tablet 1 tab PO Q6H PRN (Reason: pain) 3 Days Qty: 10 0RF Primary Care Provider: [facility] Danae Valdez Referrals: [facility] Danae Valdez [Primary Care Provider] - Disposition Disposition: Acute Care Hospital [facility]
[2021-12-12 19:36] LABS: Absolute Lymphocyte Count 1.28 X10^3/uL (0.83-4.51); Absolute Neutrophil Count 2.3 X10^3/uL (2.0-7.7); Basophil# 0.04 X10^3/uL; Eosinophils% 2.5 % (0-5); Hematocrit 40.6 % (37-47); Hemoglobin 13.1 g/dL (12.0-15.0); Lymphocyte # 1.28 X10^3/ul (0.83-4.51); Lymphocyte % 31.4 % (19-41); Mean Corp Hgb Conc 32.3 g/dL (32-36); Mean Corpuscular Volume 92.9 fL (81-99); Monocyte# 0.36 X10^3/uL; Monocyte% 8.8 % (0-10); NRBC Flagged by Analyzer 0 % (0-5); Neutrophil # 2.29 X10^3/uL (2.7-7.7); Neutrophil % 56.1 % (47-70); Platelet Count 213 K/mm3 (150-450); RBC Distribution Width CV 13.1 % (11.6-14.6); RBC Distribution Width SD 44.9 fl (35.1-43.9); Red Blood Count 4.37 M/mm3 (4.2-5.4); White Blood Count 4.1 K/mm3 (4.4-11.0)
[2021-12-12] MEDS: 0.9% Normal Saline 1,000 ML 150 ML IV (19:47)
[2021-12-12 19:53] LABS: Anion Gap 3 (5-15); BUN 22 mg/dL (7-18); BUN/Creat Ratio 18.8 RATIO (10-20); Calcium,Total 9.3 mg/dL (8.5-10.1); Chloride 109 mmol/L (98-107); Creatinine, Serum 1.17 mg/dL (0.55-1.02); EST Glomerular Filtration Rate 49 mL/min (>60); Est Glom Filt Rate - Afr Amer 60 mL/min (>60); Estimated Creatinine Clearance 45.47 ml/min; Glucose 88 mg/dL (74-106); Potassium 4.6 mmol/L (3.5-5.1); Sodium Level 141 mmol/L (136-145)
[2021-12-12 19:56] LABS: Lactic Acid 0.9 mmol/L (0.4-1.9)
--- NOTE | 2021-12-12 20:11 | PCM.HP.STD ---
HPI - General General Date of Admission: 12/12/21 Date of Service: 12/12/21 Chief Complaint: L foot cellulitis HPI Narrative The patient is a 66 y/o F w/ PMHx: Hypothyroidism, CKD stage III unclear subtype, Hx CVA w/ residual R sided hemiparesis, HTN, HLD, COPD, Nonobstructive CAD, OA, Former tobacco use, Hx BPPV, Allergic rhinitis, Anxiety and Depression who presents to the [facility] ED on 12/12/21 with history of left toe injury while opening a heavy door noted to be wearing sandals at that time with bleeding around the toenail initially on 11/29/2021 which worsened appearance with increased pain with eventual evaluation initially 12/08/2021 with then reevaluation 12/10/2021 with noted prior unremarkable plain films with onset of blister eventually over the top of the great left toe with no fevers or chills despite usage of a postop shoe with aspiration of the fluid from the blister and discharged on Bactrim and Keflex with wound care center referral representing secondary to worsened appearance, increased pain, increased erythema despite antibiotic therapy. Scribes the pain as throbbing aching if she is resting and reports that 4-6 out of 10 in severity however with any activity or with pressure or palpation it is 10 out of 10 and she has sharp pain also. Work-up in the ED included T97.6, heart rate 100, BP 113/63, respiratory rate 16, 100% on room air, CBC with WC 4.1, hemoglobin 13.1, platelet 213 without marked shift, BMP with chloride 109, BUN/creatinine 22/1.17, lactic acid 0.9. In the ED patient administered vanc, zosyn, NS. [facility] Medical History Abdominal pain Ambulates with cane Anxiety Anxiety disorder Arthritis Bronchitis Bruising CAD (coronary artery disease) Chest pain COPD (chronic obstructive pulmonary disease) Depression Diaphragm paralysis Difficulty chewing Difficulty swallowing Easy bruising Former smoker Fuchs' corneal dystrophy Gastric reflux High cholesterol History of cerebrovascular disease History of CVA (cerebrovascular accident) History of echocardiogram History of heart attack History of hiatal hernia History of IBS History of irregular heartbeat History of renal disease History of stress test HTN (hypertension) Hypoxia Restless legs Shortness of breath on exertion Skin tear Stroke/cerebrovascular accident Thyroid disease Wears dentures Wears glasses Home Medications clopidogrel 75 mg tablet 75 mg PO DAILY 07/07/18 [History Last Taken 06/12/19] cholecalciferol (vitamin D3) 125 mcg (5,000 unit) capsule 5,000 unit PO DAILY 08/14/18 [History Last Taken 06/12/19] acetaminophen 500 mg tablet 500 mg PO Q6H PRN PRN Pain Or Fever #28 tabs 06/16/19 [Rx Last Taken Unknown] levocetirizine 5 mg tablet (Allergy Relief (levocetirizine)) 5 mg PO DAILY 10/31/19 [History Last Taken Unknown] lisinopril 10 mg tablet 10 mg PO DAILY 03/21/20 [History Last Taken 09/21/21 09:30] atorvastatin 10 mg tablet 10 mg PO QHS 08/17/21 [History Last Taken Unknown] citalopram 10 mg tablet 10 mg PO DAILY 08/17/21 [History Last Taken Unknown] levothyroxine 50 mcg tablet 50 mcg PO DAILY 08/17/21 [History Last Taken Unknown] oxycodone-acetaminophen 5 mg-325 mg tablet 1 tab PO Q6H PRN PRN Pain 3 days #12 TABLETS 11/01/21 [Rx Last Taken Unknown] naproxen 500 mg tablet (Naprosyn) 500 mg PO BID PRN pain #20 tabs 12/08/21 [Rx Last Taken Unknown] cephalexin 500 mg capsule 500 mg PO Q6 #40 caps 12/10/21 [Rx Last Taken Unknown] Allergy/AdvReac Type Severity Reaction Status Date / Time hydrocodone bitartrate Allergy HALLUCINATE Verified 12/12/21 18:40 [From Vicodin] S fish derived AdvReac Anaphylaxis Verified 12/12/21 18:40 morphine AdvReac HALLUCINATE Verified 12/12/21 18:40 S Family History Mother Diabetes Heart disease Hypertension High cholesterol Father Heart disease Hypertension High cholesterol CVA (cerebral vascular accident) Surgical History History bilateral cataract surgery History left shoulder surgery History of tubal ligation Social History (Updated 12/12/21 @ 21:[address] Rupal Gannon MD) household members: significant other housing: apartment pets and animals: Yes pets and animals: dog(s) Smoking Status: Former smoker quit date: 10/28/19 pack-years: 25 Tobacco: How many years used: 25 second hand exposure: Yes alcohol intake: never substance use type: does not use ROS ROS Narrative Admission Review of Systems: CONSTITUTIONAL: No weight loss, fever, chills, + weakness or fatigue. HEENT: Eyes: No visual loss, blurred vision, double vision or yellow sclerae. Ears, Nose, Throat: No hearing loss, sneezing, congestion, runny nose or sore throat. SKIN: + L great toe erythema, blister, drainage, edema. CARDIOVASCULAR: No chest pain, chest pressure or chest discomfort, palpitations, edema, orthopnea, syncopal events. RESPIRATORY: No shortness of breath, cough or sputum, wheezing, hemoptysis. GASTROINTESTINAL: No anorexia, nausea, vomiting or diarrhea, abdominal pain, melena, BRBPR. GENITOURINARY: No dysuria, frequency, urgency or retention. NEUROLOGICAL: No headache, dizziness, syncope, paralysis, ataxia, numbness or tingling in the extremities, focal weakness, change in bowel or bladder control, seizure. MUSCULOSKELETAL: + muscle, back pain, joint pain or stiffness. HEMATOLOGIC: No anemia, bleeding or bruising. LYMPHATICS: No enlarged nodes. No history of splenectomy. PSYCHIATRIC: + history of depression or anxiety. ENDOCRINOLOGIC: No reports of sweating, cold or heat intolerance. No polyuria or polydipsia. ALLERGIES: + history rhinitis. Vital Signs Vital Signs Vital Signs: 12/12/21 18:37 Temperature 97.6 F L Temperature Source Temporal Pulse Rate 100 Respiratory Rate 16 Blood Pressure 113/63 Blood Pressure Mean 79 Pulse Ox 100 Oxygen Delivery Method Room Air Weight Weight: 140 lb Body Mass Index (BMI) 22.6 Physical Exam Narrative Physical Examination: General: Awake, alert, oriented x 3 and cooperative, seated upright in the ED bed, uncomfortable appearing especially with examination Skin: Normal color, normal turgor, no icterus, no cyanosis except for left great toe focal erythema, evident blister, macerated region on the dorsal aspect of the great toe, edematous, painful to palpation. HEENT: AT/NC, EOMI, PERRLA, mildly dry MM, no carotid bruits or JVD noted. Lungs: CTA bilaterally, moderate effort, mild decrease BL bases, no rales, ronchi or wheezing. Heart: Mildly bradycardic with rhythm; no gallop, rub audible. Abdomen: Soft, NTTP, ND, distant normal BS, no HSM. Extremities: No cyanosis, clubbing, see extremity, left great toe and dorsal left foot mildly edematous otherwise no edema to the extremities otherwise. Neurological: Patient awake, alert, oriented as noted, cognitive function intact; pupils equally reactive to light and accommodation, cranial nerves II-XII grossly normal, moving all 4 extremities although significantly limited left lower extremity movement secondary to pain elicited, no focal deficits, strength accordingly moderately globally decreased Psychiatric: Affect appears fatigued, uncomfortable, no acute evidence of depressive or anxiety feelings. Results Lab / Micro Data Result Diagrams: 12/12/21 19:20 12/12/21 19:20 Labs: Laboratory Results - last 24 hr 12/12/21 19:20: WBC 4.1 L, RBC 4.37, Hgb 13.1, Hct 40.6, MCV 92.9, MCH 30.0, MCHC 32.3, RDW Std Deviation 44.9 H, RDW Coeff of Keo 13.1, Plt Count 213, MPV 9.0, Immature Gran % (Auto) 0.200, Neut % (Auto) 56.1, Lymph % (Auto) 31.4, [place] % (Auto) 8.8, Eos % (Auto) 2.5, Baso % (Auto) 1.0, Absolute Neuts (auto) 2.3, Absolute Lymphs (auto) 1.28, Nucleated RBC % 0 12/12/21 19:20: Sodium 141, Potassium 4.6, Chloride 109 H, Carbon Dioxide 29.0, Anion Gap 3 L, BUN 22 H, Creatinine 1.17 H, Estim Creat Clear Calc 45.47, Est GFR (MDRD) Af Amer 60, Est GFR (MDRD) Non-Af 49 L, BUN/Creatinine Ratio 18.8, Glucose 88, Calcium 9.3 12/12/21 19:20: Lactic Acid 0.9 Assessment & Plan Assessment/Plan (1) Cellulitis of foot, left: PLAN: Plan The patient is a 66 y/o F w/ PMHx: Hypothyroidism, CKD stage III unclear subtype, Hx CVA w/ residual R sided hemiparesis, HTN, HLD, COPD, Nonobstructive CAD, OA, Former tobacco use, Hx BPPV, Allergic rhinitis, Anxiety and Depression who presents to the [facility] ED on 12/12/21 with history of left toe injury while opening a heavy door noted to be wearing sandals at that time with bleeding around the toenail initially on 11/29/2021 which worsened appearance with increased pain with eventual evaluation initially 12/08/2021 with then reevaluation 12/10/2021 with noted prior unremarkable plain films with onset of blister eventually over the top of the great left toe with no fevers or chills despite usage of a postop shoe with aspiration of the fluid from the blister and discharged on Bactrim and Keflex with wound care center referral representing secondary to worsened appearance, increased pain, increased erythema despite antibiotic therapy. #1. LLE Foot Cellulitis s/p L great toe contusion, failed outpatient abx therapy: Will admit to [facility], maintain on IV vanc and zosyn, pending Wound Cx, Wound MRSA PCR, plan repeat CBC in AM, continue affected extremity elevation above heart when seated and in bed, monitor erythema outline with VS checks, will request podiatry consultation with Dr. Anyi OBRIEN per patient request, last film on 12/10/21, given worsened appearance to be cautious will repeat. #2. Chronic COPD: Will maintain on oxygen with wean as tolerated to room air, no on routine regimen, if needed add ATC duonebs, maintain on PRN albuterol, HOB, IS parameters. #3. Nonobstructive CAD: Will maintain on plavix, statin, lisinopril, not on BB therapy. #4. History CVA: Hx residual R sided hemiparesis, will maintain on plavix, statin, lisinopril, not on BB therapy. #5. Hypertension: Continue home regimen including lisinopril with hold parameters as needed, PRN hydralazine. #6. Hyperlipidemia: We will continue patient on statin therapy. #7. Allergic rhinitis: We will continue patient home levocetirizine regimen. #8. Chronic Kidney Disease Stage III, unclear subtype: Admission BUN/Cr 22/1.17, baseline renal function 0.8-1.1 primarily, repeat BMP in AM. #9. Hypothyroidism: We will continue patient on levothyroxine regimen. #10. Anxiety and depression: We will continue patient home citalopram regimen. #11. Former tobacco use: Encourage continued tobacco cessation. #12. DVT prophylaxis: SCDs, Lovenox. Charges/Coding Visit Charges Inpatient E&M: 00128 Init Hosp L3
[2021-12-12] MEDS: Vancomycin IV 1,000 MG/200 ML BAG 200 MG IV (20:15)
[2021-12-12 20:59] VITALS: BP 151/67; PULSE 55; RESP 19; TEMP 36.9; O2SAT 97
[2021-12-12 21:08] VITALS: RESP 16
--- NOTE | 2021-12-12 21:15 | ED.RN ---
PT NOTICED RED SPOTS ON LEFT ARM WHERE VANCOMYCIN WAS GOING IN. VANCOMYCIN WAS STOPPED, BAG WAS ALMOST EMPTY. NO OTHER REDNESS OTHER THAN LEFT ARM AT THIS TIME. DR ZAMORA MADE AWARE.
[2021-12-12 21:16] LABS: Erythrocyte Sedimentation Rate 19 mm/hr (0-30)
[2021-12-12 21:28] LABS: M R Staph aureus DNA By PCR Negative (Negative); Probe Check PASS; Staph aureus DNA By PCR NEGATIVE (Negative)
--- NOTE | 2021-12-12 22:00 | RAD_ITS ---
STUDY: X-RAY - LEFT FOOT CLINICAL: Female, 66 years old. L toe infection TECHNIQUE: 3 view(s) of the foot. COMPARISON: Left foot x-rays 12/10/2021. FINDINGS: BONES: No fracture demonstrated. No cortical destruction or lytic lesion identified. JOINTS: No dislocation. SOFT TISSUES: Mild soft tissue swelling great toe. No radiopaque foreign body identified. RAD/Foot min 3 Views IMPRESSION: Mild soft tissue swelling of the great toe, not significantly changed. No radiographic evidence of osteomyelitis. Electronically Signed: Marlin Ybarra MD at 23:08 EDT ,
[2021-12-12 22:17] VITALS: BMI 23.8
[2021-12-12 22:25] VITALS: BP 158/65; PULSE 58; RESP 16; TEMP 36.6; O2SAT 97
--- NOTE | 2021-12-12 22:55 | PCM.RX.CS ---
Consult Pharmacy has been consulted to manage selected antiobiotic: Vancomycin Type of Consult: New start Suspected Infection: Skin/Soft tissue Prior Doses of Antibiotics Received/Current Regimen: Medications Piperacillin Sod/Tazobactam (Sod 3.375 gm/ Sodium Chloride) 50 mls @ 12.5 mls/hr IV Q8 MACEY Discontinued Medications Piperacillin Sod/Tazobactam (Sod 4.5 gm/ Sodium Chloride) 100 mls @ 200 mls/hr IV X1 ONE Stop: 12/12/21 19:30 Last Admin: 12/12/21 20:55 Dose: Infused Labs: Sodium 141 mmol/L (136-145) 12/12/21 19:20 Potassium 4.6 mmol/L (3.5-5.1) 12/12/21 19:20 Chloride 109 mmol/L (98-107) H 12/12/21 19:20 Carbon Dioxide 29.0 mmol/L (21.0-32.0) 12/12/21 19:20 Anion Gap 3 (5-15) L 12/12/21 19:20 BUN 22 mg/dL (7-18) H 12/12/21 19:20 Creatinine 1.17 mg/dL (0.55-1.02) H 12/12/21 19:20 Est GFR (MDRD) Af Amer 60 mL/min (>60) 12/12/21 19:20 Est GFR (MDRD) Non-Af 49 mL/min (>60) L 12/12/21 19:20 BUN/Creatinine Ratio 18.8 RATIO (10-20) 12/12/21 19:20 Glucose 88 mg/dL (74-106) 12/12/21 19:20 Weight used for dosin.88 kg Estimated Creatinine Clearance: 47.8 Goal Trough: 15-20 mcg/mL Pharmacy Plan for Drug Dosing: Pharmacy Service will continue to monitor and adjust dosing as required. Medications Vancomycin HCl () 500 mg in 100 mls @ 100 mls/hr IV Q12H MACEY Discontinued Medications Vancomycin HCl (Vancomycin) 1,000 mg in 200 mls @ 200 mls/hr 15 mg/kg (1000 mg) IV X1 ONE Stop: 12/12/21 20:00 Last Admin: 12/12/21 21:16 Dose: Infused Follow-Up Labs: Trough Vancomycin Labs to be done on [date and time ordered]: 12/14 @ 0730
[2021-12-12] MEDS: 0.9% Normal Saline 1,000 ML 100 ML IV (23:08)
[2021-12-12] MEDS: Atorvastatin Calcium 10 MG Tablet PO (23:08)
[2021-12-13 03:44] VITALS: BP 115/57; PULSE 71; RESP 16; TEMP 36.6; O2SAT 97
[2021-12-13] MEDS: Mag Hydrox/Al Hydrox/Simeth 30 ML UDC PO (03:44)
[2021-12-13] MEDS: Levothyroxine 50 MCG Tablet PO (06:02)
[2021-12-13 06:25] LABS: Absolute Lymphocyte Count 1.25 X10^3/uL (0.83-4.51); Absolute Neutrophil Count 1.5 X10^3/uL (2.0-7.7); Basophil# 0.03 X10^3/uL; Eosinophils% 3.2 % (0-5); Hematocrit 35.6 % (37-47); Hemoglobin 11.4 g/dL (12.0-15.0); Lymphocyte # 1.25 X10^3/ul (0.83-4.51); Lymphocyte % 40.1 % (19-41); Mean Corpuscular Volume 93.7 fL (81-99); Mean Platelet Vol. 9.4 fl (6.2-12.0); Monocyte# 0.28 X10^3/uL; NRBC Flagged by Analyzer 0 % (0-5); Neutrophil # 1.45 X10^3/uL (2.7-7.7); Neutrophil % 46.4 % (47-70); Platelet Count 205 K/mm3 (150-450); RBC Distribution Width CV 13.2 % (11.6-14.6); RBC Distribution Width SD 45.4 fl (35.1-43.9); White Blood Count 3.1 K/mm3 (4.4-11.0)
[2021-12-13 07:02] LABS: ALB/GLOB Ratio 0.9 RATIO (0.9-2.4); AST(SGOT) 21 U/L (15-37); Alanine Aminotransfer ALT/SGPT 25 U/L (13-56); Albumin, Serum 2.8 g/dL (3.2-5.0); Alkaline Phosphatase 56 U/L (45-117); Anion Gap 3 (5-15); BUN 22 mg/dL (7-18); BUN/Creat Ratio 22.2 RATIO (10-20); Calcium,Total 8.6 mg/dL (8.5-10.1); Chloride 110 mmol/L (98-107); Creatinine, Serum 0.99 mg/dL (0.55-1.02); EST Glomerular Filtration Rate 60 mL/min (>60); Est Glom Filt Rate - Afr Amer 72 mL/min (>60); Estimated Creatinine Clearance 53.74 ml/min; Glucose 89 mg/dL (74-106); Potassium 4.7 mmol/L (3.5-5.1); Protein, Total 5.8 g/dL (6.4-8.2); Sodium Level 141 mmol/L (136-145)
[2021-12-13 07:23] LABS: Hemoglobin A1c 5.4 % (3.8-5.6)
[2021-12-13] MEDS: Vancomycin IV 500 MG/100 ML BAG 100 MG IV (07:43)
[2021-12-13 07:50] VITALS: BP 127/51; PULSE 57; RESP 16; TEMP 36.6; O2SAT 95
[2021-12-13] MEDS: Loratadine 10 MG Tablet PO (09:16)
[2021-12-13] MEDS: Citalopram 10 MG Tablet PO (09:16)
[2021-12-13] MEDS: Enoxaparin 40 MG/0.4 ML Syringe SC (09:16)
[2021-12-13] MEDS: Clopidogrel Bisulfate 75 MG Tablet PO (09:17)
[2021-12-13] MEDS: Lisinopril 10 MG Tablet PO (09:17)
--- NOTE | 2021-12-13 10:40 | CASEMGMT ---
JUAN QUINTANILLA Assessment: Face to Face with pt for initial transition planning/care coordination assessment. JUAN QUINTANILLA introduced self and role at [facility], pt voices understanding and consents to assessment. Pt is A/O x4 and answers all questions appropriately at this time. Pt lying in bed in no distress. Care providers, pharmacy, and demographics verified/updated. Admitting Dx: L foot cellulitis PCP: Danae Manrique Specialists:terry Love; Stephon, eye doctor Preferred Pharmacy: [facility] Insurance: [facility] Dual Complete Prescription Benefit: yes LW/HPOA: Pt denies having a LW/DPOA and denies need for info regarding AD. LNOK: Carolyne Jackson, dtr; Herminio Haddad, sig other Living Arrangements: Pt lives with her sig other in an apt with an elevator to get to the 3rd floor. Pt has no steps to maneuver. Pt reports she is I in ADL's and denies concerns at home. Transportation: Pt typically drives self but has not been recently as she has been having issues with her vision. She has an appt scheduled to see eye doctor. Her sig other transports her in the meantime. DME/HHC/SNF: Pt uses a cane and has grab bars in her bathroom. Pt denies hx of HHC or SNF stays. Pt states no concerns with going home at time of dc. States she was doing a dressing with neosporin on her foot prior to hospitalization. Pt states she was referred to the wound center but has not yet made an appt. Will follow to see what podiatry suggests. Pt states no further concerns/needs. CM to follow. Advised pt to ask CM if any further question/concerns/needs arise, voices understanding. Pt Goal: Home Plan: Home
--- NOTE | 2021-12-13 12:58 | DCINST_ITS ---
Discharge Instructions Diet Discharge Diet: Low fat / Low cholesterol Activity Discharge Activity: Return to Normal Activity Dressing / Incision Call your doctor if your incision/area has: Continuous Slow Oozing, Sudden Increased Bleeding, Increased Pain/ Swelling, Increased Redness, Foul Smelling Discharge and Swelling at the incision site Call your doctor if you observe: Fever of 101 or Higher Follow Up Care Test Results: Test results from this visit will be discussed in further detail at your follow- up appointment, if applicable. Discharge Plan Admission Admit Date/Time: 12/12/21 20:23 Primary Reason for Your Visit: Left foot cellulitus Attending Provider: Jose Kent [facility] Providers: Rupal Gannon ; Lj De Santiago Discharge Orders/Prescriptions Prescriptions: Continued cholecalciferol (vitamin D3) 5,000 unit capsule 5,000 unit PO DAILY levocetirizine [Allergy Relief (levocetirizin)] 5 mg tablet 5 mg PO DAILY citalopram 10 mg tablet 10 mg PO DAILY levothyroxine 50 mcg tablet 50 mcg PO DAILY Label Comments: TAKE 1 TABLET BY MOUTH EVERY DAY atorvastatin 10 mg tablet 10 mg PO QHS clopidogrel 75 MG tablet 75 mg PO DAILY Label Comments: TAKE ONE TABLET BY MOUTH EVERY DAY acetaminophen 500 MG tablet 500 mg PO Q6H PRN PRN (Reason: Pain Or Fever) Qty: 28 0RF lisinopril 10 MG tablet 10 mg PO DAILY oxycodone-acetaminophen 1 TABLET tablet 1 tab PO Q6H PRN PRN (Reason: Pain) 3 Days Qty: 12 0RF naproxen [Naprosyn] 500 mg tablet 500 mg PO BID PRN (Reason: pain) Qty: 20 0RF cephalexin 500 mg capsule 500 mg PO Q6 Qty: 40 0RF Referrals / Follow Up: Lj De Santiago DPM [STAFF PHYSICIAN] - Within 1 Week [facility],Danae Patel [Primary Care Provider] - In 1 Week Disposition Disposition (needs filled in before D/C Order can be placed): Home, Self Care
--- NOTE | 2021-12-13 13:41 | CPS ---
started by nursing
--- NOTE | 2021-12-13 13:46 | PCM.DC.SUM ---
Documented by User: Yamile Adan NP, VIDEO OPERATOR-C 12/13/21 13:57 Providers Date of Admission: 12/12/21 Date of Discharge: 12/13/21 Primary Care Physician: Danae [facility] Consultations 12/12/21 22:17 Consult: Podiatry Routine Consulting Provider: Lj De Santiago Reason for Consult: L great toe wound 11/29/21, Blister w/ 12/10/21 start abx, worse, Pt request EMERGENT Consult: No MD Notified: Yes Date Notified: 12/12/21 Time Notified: 07:29 Method of Notification: Verbal Reason For Visit: L FOOT CELLUITIS Diagnosis Discharge Diagnosis (1) Cellulitis of foot, left: Status: Acute Code(s): L03.116 - Cellulitis of left lower limb Medications at Discharge Home Medications clopidogrel 75 mg tablet 75 mg PO DAILY 07/07/18 cholecalciferol (vitamin D3) 125 mcg (5,000 unit) capsule 5,000 unit PO DAILY 08/14/18 acetaminophen 500 mg tablet 500 mg PO Q6H PRN PRN Pain Or Fever #28 tabs 06/16/19 levocetirizine 5 mg tablet (Allergy Relief (levocetirizine)) 5 mg PO DAILY 10/31/19 lisinopril 10 mg tablet 10 mg PO DAILY 03/21/20 atorvastatin 10 mg tablet 10 mg PO QHS 08/17/21 citalopram 10 mg tablet 10 mg PO DAILY 08/17/21 levothyroxine 50 mcg tablet 50 mcg PO DAILY 08/17/21 oxycodone-acetaminophen 5 mg-325 mg tablet 1 tab PO Q6H PRN PRN Pain 3 days #12 TABLETS 11/01/21 naproxen 500 mg tablet (Naprosyn) 500 mg PO BID PRN pain #20 tabs 12/08/21 cephalexin 500 mg capsule 500 mg PO Q6 #40 caps 12/10/21 Hospital Course Operations None Procedures None Summary of Care Provided Hospital Course: Patient is a 66-year-old female admitted 12/12/2021 due to left foot cellulitis. 1. Left foot cellulitis-IV Zosyn and IV vancomycin during admission. On examination, erythema significantly improved. Patient has fluid-filled blister on left great toe which will be evaluated by podiatry prior to discharge. Continue previously prescribed Keflex at discharge. Afebrile. No leukocytosis. Foot x-ray with mild soft tissue swelling of the great toe. No evidence of osteomyelitis. Continue antibiotics to complete course and follow-up with podiatry. Follow-up with PCP in 1 week. Patient recovered quicker than expected and discharged in improved condition. 2. History of CVA with residual right-sided hemiparesis-on Plavix, statin 3. Hypertension-stable, continue home regimen. 4. Hyperlipidemia-continue statin. 5. Chronic COPD-no exacerbation. 6. Nonobstructive CAD-stable, continue Plavix, statin, lisinopril. 7. Anxiety/depression-on citalopram. 8. Former tobacco use-encouraged continued cessation. Patient seen and examined prior to discharge. Physical assessment as noted below. Patient is stable for discharge with follow up recommendations as noted above. This patient was seen by CARLO García under the supervision of Dr. Kent. Time spent examining patient, reviewing data and subsequent management of care: 24 minutes Physical Exam Const alert, oriented x3 and no apparent distress Orientation / Consciousness: awake, oriented to person, oriented to place and oriented to time HEENT normocephalic and moist oral mucous membranes Eyes PERRL, EOMs intact bilaterally and conjunctivae normal Neck no lymphadenopathy Resp normal respiratory effort and clear to auscultation bilaterally Cardio regular rate, regular rhythm and no murmurs Peripheral Pulses: pulses 2+ throughout GI normal to inspection, nondistended, normoactive bowel sounds, non-tender and non-distended Extremity normal to inspection Skin no rashes or lesions noted Lesions: no lesions Rashes: no rashes Trauma: no lacerations or abrasions Wound Narrative: Fluid-filled blister left great toe with mild surrounding erythema, retracted from prior marking. Neuro CN's II-XII intact bilaterally, no focal motor deficits, no sensory deficits noted and deep tendon reflexes 2+ bilaterally Psych mental status grossly normal and affect normal Weight / BMI Weight Weight: 147 lb 4.301 oz Body Mass Index (BMI) 23.8 ABG / Lab / Microbiology Data Result Diagrams: 12/13/21 Unknown 12/13/21 Unknown Laboratory: Laboratory Results - last 24 hr 12/12/21 19:20: WBC 4.1 L, RBC 4.37, Hgb 13.1, Hct 40.6, MCV 92.9, MCH 30.0, MCHC 32.3, RDW Std Deviation 44.9 H, RDW Coeff of Keo 13.1, Plt Count 213, MPV 9.0, Immature Gran % (Auto) 0.200, Neut % (Auto) 56.1, Lymph % (Auto) 31.4, Garvin % (Auto) 8.8, Eos % (Auto) 2.5, Baso % (Auto) 1.0, Absolute Neuts (auto) 2.3, Absolute Lymphs (auto) 1.28, Nucleated RBC % 0 12/12/21 19:20: Sodium 141, Potassium 4.6, Chloride 109 H, Carbon Dioxide 29.0, Anion Gap 3 L, BUN 22 H, Creatinine 1.17 H, Estim Creat Clear Calc 45.47, Est GFR (MDRD) Af Amer 60, Est GFR (MDRD) Non-Af 49 L, BUN/Creatinine Ratio 18.8, Glucose 88, Calcium 9.3 12/12/21 19:20: Lactic Acid 0.9 12/12/21 19:20: ESR 19 12/12/21 19:20: C-React Prot Ext Range 14.20 H 12/12/21 19:50: S.aureus Protein A PCR NEGATIVE, MRSA (PCR) Negative 12/13/21 : WBC 3.1 L, RBC 3.80 L, Hgb 11.4 L, Hct 35.6 L, MCV 93.7, MCH 30.0, MCHC 32.0, RDW Std Deviation 45.4 H, RDW Coeff of Keo 13.2, Plt Count 205, MPV 9.4, Immature Gran % (Auto) 0.300, Neut % (Auto) 46.4 L, Lymph % (Auto) 40.1, Garvin % (Auto) 9.0, Eos % (Auto) 3.2, Baso % (Auto) 1.0, Absolute Neuts (auto) 1.5 L, Absolute Lymphs (auto) 1.25, Nucleated RBC % 0 12/13/21 : Sodium 141, Potassium 4.7, Chloride 110 H, Carbon Dioxide 28.0, Anion Gap 3 L, BUN 22 H, Creatinine 0.99, Estim Creat Clear Calc 53.74, Est GFR (MDRD) Af Amer 72, Est GFR (MDRD) Non-Af 60, BUN/Creatinine Ratio 22.2 H, Glucose 89, Calcium 8.6, Total Bilirubin 0.20, AST 21, ALT 25, Alkaline Phosphatase 56, Total Protein 5.8 L, Albumin 2.8 L, Globulin 3.0, Albumin/Globulin Ratio 0.9 12/13/21 : Hemoglobin A1c 5.4 Microbiology: Microbiology 12/12/21 19:50 Wound - Toe Gram Stain - Final Radiography Diagnostic Testing: Radiology Impression Foot X-Ray 12/12/21 22:00 IMPRESSION: Mild soft tissue swelling of the great toe, not significantly changed. No radiographic evidence of osteomyelitis. Electronically Signed: Marlin Ybarra MD at 23:08 EDT Reading Location ID and State: [facility] / [place] Tel , Service support , D/C Instructions Discharge Diet: Low fat / Low cholesterol Call your doctor if your incision/area has: Continuous Slow Oozing, Sudden Increased Bleeding, Increased Pain/ Swelling, Increased Redness, Foul Smelling Discharge and Swelling at the incision site Call your doctor if you observe: Fever of 101 or Higher Meaningful Use Info Meaningful Use Diagnoses (Choose all that apply): None applicable Discharge Plan Admission Admit Date/Time: 12/12/21 20:23 Primary Reason for Your Visit: Left foot cellulitus Attending Provider: Jose Kent [facility] Providers: Rupal Gannon ; Lj De Santiago Discharge Orders/Prescriptions Prescriptions: Continued cholecalciferol (vitamin D3) 5,000 unit capsule 5,000 unit PO DAILY levocetirizine [Allergy Relief (levocetirizin)] 5 mg tablet 5 mg PO DAILY citalopram 10 mg tablet 10 mg PO DAILY levothyroxine 50 mcg tablet 50 mcg PO DAILY Label Comments: TAKE 1 TABLET BY MOUTH EVERY DAY atorvastatin 10 mg tablet 10 mg PO QHS clopidogrel 75 MG tablet 75 mg PO DAILY Label Comments: TAKE ONE TABLET BY MOUTH EVERY DAY acetaminophen 500 MG tablet 500 mg PO Q6H PRN PRN (Reason: Pain Or Fever) Qty: 28 0RF lisinopril 10 MG tablet 10 mg PO DAILY oxycodone-acetaminophen 1 TABLET tablet 1 tab PO Q6H PRN PRN (Reason: Pain) 3 Days Qty: 12 0RF naproxen [Naprosyn] 500 mg tablet 500 mg PO BID PRN (Reason: pain) Qty: 20 0RF cephalexin 500 mg capsule 500 mg PO Q6 Qty: 40 0RF Referrals / Follow Up: Lj De Santiago DPM [STAFF PHYSICIAN] - [facility] Week [facility] - In 1 Week Disposition Disposition (needs filled in before D/C Order can be placed): Home, Self Care Documented by User: Dr. Jose Kent MD 12/13/21 15:54 Providers Date of Admission: 12/12/21 Reason For Visit: L FOOT CELLUITIS Diagnosis Discharge Diagnosis (1) Cellulitis of foot, left: Status: Acute Code(s): L03.116 - Cellulitis of left lower limb Medications at Discharge Home Medications clopidogrel 75 mg tablet 75 mg PO DAILY 07/07/18 cholecalciferol (vitamin D3) 125 mcg (5,000 unit) capsule 5,000 unit PO DAILY 08/14/18 acetaminophen 500 mg tablet 500 mg PO Q6H PRN PRN Pain Or Fever #28 tabs 06/16/19 levocetirizine 5 mg tablet (Allergy Relief (levocetirizine)) 5 mg PO DAILY 10/31/19 lisinopril 10 mg tablet 10 mg PO DAILY 03/21/20 atorvastatin 10 mg tablet 10 mg PO QHS 08/17/21 citalopram 10 mg tablet 10 mg PO DAILY 08/17/21 levothyroxine 50 mcg tablet 50 mcg PO DAILY 08/17/21 oxycodone-acetaminophen 5 mg-325 mg tablet 1 tab PO Q6H PRN PRN Pain 3 days #12 TABLETS 11/01/21 naproxen 500 mg tablet (Naprosyn) 500 mg PO BID PRN pain #20 tabs 12/08/21 cephalexin 500 mg capsule 500 mg PO Q6 #40 caps 12/10/21 ABG / Lab / Microbiology Data Result Diagrams: 12/13/21 Unknown 12/13/21 Unknown Discharge Plan Admission Admit Date/Time: 12/12/21 20:23 Primary Reason for Your Visit: Left foot cellulitus Attending Provider: Jose Kent Primary Care Provider: [facility]Danae Pat[facility] Consulting Providers: Rupal Gannon ; Lj De Santiago Discharge Orders/Prescriptions Prescriptions: Continued cholecalciferol (vitamin D3) 5,000 unit capsule 5,000 unit PO DAILY levocetirizine [Allergy Relief (levocetirizin)] 5 mg tablet 5 mg PO DAILY citalopram 10 mg tablet 10 mg PO DAILY levothyroxine 50 mcg tablet 50 mcg PO DAILY Label Comments: TAKE 1 TABLET BY MOUTH EVERY DAY atorvastatin 10 mg tablet 10 mg PO QHS clopidogrel 75 MG tablet 75 mg PO DAILY Label Comments: TAKE ONE TABLET BY MOUTH EVERY DAY acetaminophen 500 MG tablet 500 mg PO Q6H PRN PRN (Reason: Pain Or Fever) Qty: 28 0RF lisinopril 10 MG tablet 10 mg PO DAILY oxycodone-acetaminophen 1 TABLET tablet 1 tab PO Q6H PRN PRN (Reason: Pain) 3 Days Qty: 12 0RF naproxen [Naprosyn] 500 mg tablet 500 mg PO BID PRN (Reason: pain) Qty: 20 0RF cephalexin 500 mg capsule 500 mg PO Q6 Qty: 40 0RF Referrals / Follow Up: Lj De Santiago DPM [STAFF PHYSICIAN] - Within 1 Week [facility]anae Patel [Primary Care Provider] - In 1 Week Disposition Disposition (needs filled in before D/C Order can be placed): Home, Self Care Charges/Coding Addendum Addendum: Addendum: Dr. Kent I personally examined the patient and reviewed the chart. I agree with the above. 66-year-old female who injured her toe on 29 November against a door, and had bruising on her left great toe. She noticed that she developed a blister with some erythema so she came into the ER on 12/08/2021, Foot x-ray at that time showed no acute fracture so she was sent home with anti-inflammatory medication. She returned to the ER on 12/10/2021 where x-ray was repeated once again with no fracture but with some mild soft tissue swelling, she was discharged at that time on Keflex and Bactrim as well as some more Percocets. She then presented again on 12/12/2021 because of left foot redness. At that point she was admitted, wound culture so far unremarkable there is 1+ gram-positive cocci in the culture and the MRSA screen is negative. Redness is significantly improved today she improved faster than anticipated. I recommend that she be discharged and follow-up with podiatry as an outpatient as they have not seen her yet today. She has not had any leukocytosis or fever and she only took about 1 days worth of oral antibiotics so she has quite enough at home to complete the course of antibiotics. I do recommend outpatient follow-up because on 12/10/2021 the blister was aspirated so it is possible to have introduced infection potentially at that time so I do recommend outpatient follow-up with podiatry for further evaluation of this blister and potential definitive treatment if it does become an abscess. In the meantime the Keflex that she is on every 6 hours should be more than enough to treat the infection as it does not have MRSA secondary to the negative PCR. Clinical time spent in all aspects of patient care: 35 minutes Visit Charges Inpatient E&M: 79634 Disch Hosp
[2021-12-13 14:53] VITALS: BP 133/64; PULSE 71; RESP 16; TEMP 36.6; O2SAT 95
--- NOTE | 2021-12-13 15:58 | PCM.CONS.GEN ---
Assessment & Plan Assessment/Plan (1) Contusion of great toe, left: PLAN: Patient was examined today at bedside. It is clear that she has fluid filled blister of left hallux that appears to communicate with the entire nail bed. The nail plate of left hallux is loose distally but attached proximally. I suspect that the reason why this blister keeps returning is that there is possible infection of left hallux nail bed and until the nail is fully removed, she will continued to develop worsening of this infection. She is on bactrim and keflex and this should cover any staph or strep. she can continue with this as an outpatient. I discussed with patient the appearance of left hallux. I do feel that she would benefit from draining of the blister but I do think consideration into removal of the nail plate and further inspection of nail bed for any laceration is necessary. I do think that if she pursues this, her infection of left hallux and absolve. It shoudl be noted that this patient has history of smoking. she has palpable posterior tibial pulse and biphasic dp and pt and has biphasic pulse to the digits of left foot. This provider discussed concern for pad. if she has pad and the nail is removed, she could be at risk of nonhealing and loss of toe. I offered patient opportunity to just have the blister drained vs doing further vascular work-up vs doing removal of this nail today. she would like to pursue removal of the toenail today. She understands risks associated. She was informed that she has infection and if infection is not eliminated, she could be at risk of loss of toe. she agrees to proceed with removal of the toenail I told the patient that given the severe blister of the toe, the loosening of nail plate, the possible risk of nail bed injury, this provider would appreciate doing the procedure in the operating room where the facilities are more favorable for sterile environment and ease of patient position. I will do this under local anesthesia once equipment that was used last week but never sterilized is cleaned. patient agrees to proceed with procedure. Will likely allow her discharge pending appearance of toe following procedure. (2) Infection of great toe: PLAN: as above (3) Cellulitis of foot, left: PLAN: as above (4) Traumatic avulsion of nail plate of toe: PLAN: as above HPI Consult Data Date of Consult: 12/13/21 HPI Narrative Reason for Consultation: patient is a pleasant 66 year old female who has blister of left hallux. HPI Narrative: patient is a pleasant 66 year old female who has blister of left hallux and is current admitted for IV antibiotics. Patinet states the blister started back on November 29 when she stubbed her left great toe on a door. she states that 2 days following injury, the toe began to swell and become red. Patient presented to the ED on December 08 and xrays were apparently negative for fracture. patient states at that ED presentation, the toe was drained. Patient was discharged on oral antibiotics. she is unsure what she was discharged. Patient states the swelling and blister returned two days later. she presented two days later because the redness was increasing. she states the blister returned. she had the blister drained in the ED again but this time she was admitted for IV antibiotics. patient states the redness is improving. she would like to go home. patient denies n/v/f/c. patient denies any pain in the toe. [facility] Medical History Abdominal pain Ambulates with cane Anxiety Anxiety disorder Arthritis Bronchitis Bruising CAD (coronary artery disease) Chest pain COPD (chronic obstructive pulmonary disease) Depression Diaphragm paralysis Difficulty chewing Difficulty swallowing Easy bruising Former smoker Fuchs' corneal dystrophy Gastric reflux High cholesterol History of cerebrovascular disease History of CVA (cerebrovascular accident) History of echocardiogram History of heart attack History of hiatal hernia History of IBS History of irregular heartbeat History of renal disease History of stress test HTN (hypertension) Hypoxia Restless legs Shortness of breath on exertion Skin tear Stroke/cerebrovascular accident Thyroid disease Wears dentures Wears glasses Home Medications clopidogrel 75 mg tablet 75 mg PO DAILY 07/07/18 [History Last Taken 06/12/19] cholecalciferol (vitamin D3) 125 mcg (5,000 unit) capsule 5,000 unit PO DAILY 08/14/18 [History Last Taken 06/12/19] acetaminophen 500 mg tablet 500 mg PO Q6H PRN PRN Pain Or Fever #28 tabs 06/16/19 [Rx Last Taken Unknown] levocetirizine 5 mg tablet (Allergy Relief (levocetirizine)) 5 mg PO DAILY 10/31/19 [History Last Taken Unknown] lisinopril 10 mg tablet 10 mg PO DAILY 03/21/20 [History Last Taken 09/21/21 09:30] atorvastatin 10 mg tablet 10 mg PO QHS 08/17/21 [History Last Taken Unknown] citalopram 10 mg tablet 10 mg PO DAILY 08/17/21 [History Last Taken Unknown] levothyroxine 50 mcg tablet 50 mcg PO DAILY 08/17/21 [History Last Taken Unknown] oxycodone-acetaminophen 5 mg-325 mg tablet 1 tab PO Q6H PRN PRN Pain 3 days #12 TABLETS 11/01/21 [Rx Last Taken Unknown] naproxen 500 mg tablet (Naprosyn) 500 mg PO BID PRN pain #20 tabs 12/08/21 [Rx Last Taken Unknown] cephalexin 500 mg capsule 500 mg PO Q6 #40 caps 12/10/21 [Rx Last Taken Unknown] Allergy/AdvReac Type Severity Reaction Status Date / Time hydrocodone bitartrate Allergy HALLUCINATE Verified 12/12/21 18:40 [From Vicodin] S fish derived AdvReac Anaphylaxis Verified 12/12/21 18:40 morphine AdvReac HALLUCINATE Verified 12/12/21 18:40 S Family History Mother Diabetes Heart disease Hypertension High cholesterol Father Heart disease Hypertension High cholesterol CVA (cerebral vascular accident) Surgical History History bilateral cataract surgery History left shoulder surgery History of tubal ligation Social History (Updated 12/12/21 @ 21:[address] Rupal Gannon MD) household members: significant other housing: apartment pets and animals: Yes pets and animals: dog(s) Smoking Status: Former smoker quit date: 10/28/19 pack-years: 25 Tobacco: How many years used: 25 second hand exposure: Yes alcohol intake: never substance use type: does not use Physical Exam Narrative Patient is alert and orientated x 3. she does not appear in any distress Vascular: Posterior tibial pulse is palpable to left ankle. CFT is brisk. Skin temperature is warm to warm. There is mild erythema noted to left hallux around fluid filled blister Derm: there is fluid filled blister of left hallux that appears to communicate with the entire nail bed. There is lifting of left hallux nail bed and there appears to be new developing blister to the distal tuft of left hallux. no purulence noted on exam m/s: there is swelling of left hallux. xrays reviewed from this past week. + soft-tissue swelling of left hallux. no evidence of fracture. Lab / Micro Data Result Diagrams: 12/13/21 Unknown 12/13/21 Unknown Labs: Laboratory Results - last 24 hr 12/12/21 19:20: WBC 4.1 L, RBC 4.37, Hgb 13.1, Hct 40.6, MCV 92.9, MCH 30.0, MCHC 32.3, RDW Std Deviation 44.9 H, RDW Coeff of Keo 13.1, Plt Count 213, MPV 9.0, Immature Gran % (Auto) 0.200, Neut % (Auto) 56.1, Lymph % (Auto) 31.4, [place] % (Auto) 8.8, Eos % (Auto) 2.5, Baso % (Auto) 1.0, Absolute Neuts (auto) 2.3, Absolute Lymphs (auto) 1.28, Nucleated RBC % 0 12/12/21 19:20: Sodium 141, Potassium 4.6, Chloride 109 H, Carbon Dioxide 29.0, Anion Gap 3 L, BUN 22 H, Creatinine 1.17 H, Estim Creat Clear Calc 45.47, Est GFR (MDRD) Af Amer 60, Est GFR (MDRD) Non-Af 49 L, BUN/Creatinine Ratio 18.8, Glucose 88, Calcium 9.3 12/12/21 19:20: Lactic Acid 0.9 12/12/21 19:20: ESR 19 12/12/21 19:20: C-React Prot Ext Range 14.20 H 12/12/21 19:50: S.aureus Protein A PCR NEGATIVE, MRSA (PCR) Negative 12/13/21 : WBC 3.1 L, RBC 3.80 L, Hgb 11.4 L, Hct 35.6 L, MCV 93.7, MCH 30.0, MCHC 32.0, RDW Std Deviation 45.4 H, RDW Coeff of Keo 13.2, Plt Count 205, MPV 9.4, Immature Gran % (Auto) 0.300, Neut % (Auto) 46.4 L, Lymph % (Auto) 40.1, [place] % (Auto) 9.0, Eos % (Auto) 3.2, Baso % (Auto) 1.0, Absolute Neuts (auto) 1.5 L, Absolute Lymphs (auto) 1.25, Nucleated RBC % 0 12/13/21 : Sodium 141, Potassium 4.7, Chloride 110 H, Carbon Dioxide 28.0, Anion Gap 3 L, BUN 22 H, Creatinine 0.99, Estim Creat Clear Calc 53.74, Est GFR (MDRD) Af Amer 72, Est GFR (MDRD) Non-Af 60, BUN/Creatinine Ratio 22.2 H, Glucose 89, Calcium 8.6, Total Bilirubin 0.20, AST 21, ALT 25, Alkaline Phosphatase 56, Total Protein 5.8 L, Albumin 2.8 L, Globulin 3.0, Albumin/Globulin Ratio 0.9 12/13/21 : Hemoglobin A1c 5.4 Micro: Microbiology 12/12/21 19:50 Wound - Toe Gram Stain - Final Radiology Impression Foot X-Ray 12/12/21 22:00 IMPRESSION: Mild soft tissue swelling of the great toe, not significantly changed. No radiographic evidence of osteomyelitis. Electronically Signed: Marlin Ybarra MD at 23:08 EDT ,
[2021-12-13] MEDS: Lidocaine 1% (20 ml mdv) 20 ML Vial INFILT (16:20)
--- NOTE | 2021-12-13 17:40 | NURSING ---
PT TO OR TO REMOVE RT GREAT TOENAIL WITH A LOCAL ANESTHESIA
--- NOTE | 2021-12-13 18:31 | OP.PCM_ITS ---
Report of Operation Date of Procedure: 12/13/21 Pre-Operative Diagnosis: traumatic nail avulsion, left hallux. cellulitis of l eft hallux. blister of left hallux Post-Operative Diagnosis: traumatic nail avulsion of left hallux without nail bed laceration. Superficial hematoma of left hallux. blister of left hallux Surgery/Procedure Performed:: Incision and drainage of left foot. Evacuation of superficial hematoma of left hallux. Left hallux nail avulsion. Description of Surgical Findings:: + superficial hematoma of left hallux. + communication of left hallux hematoma with left hallux nail bed. + traumatic nail avulsion of left hallux without nail bed injury Surgeon: Lj De Santiago Type of Anesthesia: Local Specimen's removed: Wound culture of left hallux Drains: none Estimated Blood Loss (mL): <2 cc Fluids Replaced: none Description of Procedure: patient is a 66 year old female who on November 29, 2021 stubbed her left great toe against the door frame. she developed swelling and blistering. she presented to the hospital on December 08 at which time, the blister was drained and she was discharged on bactrim and keflex. She returned to the ED on December 10 and was subsequently admitted for IV antibiotics. She has xrays from December 08, and . She has no evidence of fracture. She was placed on IV antibiotics and the redness has improved but she has significant blistering to the dorsal aspect of left hallux. While she was ok for discharge from medical stand point, it was felt on December 13 that podiatry consult was warranted. I saw this patient this afternoon and found her to have + blister of left hallux just proximal to the nail plate. there was periwound erythema along the blistering and there was loosening of distal nail plate. Further, there was what appeared to be a subsequent blister of the distal tuft of left hallux. I evaluated xrays and there was no evidence of fracture. I discussed with patient that I believe there is communication of blister with the underlying nail bed and that given the loosening of nail plate, it would be of benefit to proceed with removal of the toenail for further inspection of the nail bed to assure no underlying injury. I examined patient prior to this procedure and I found her to have palpable posterior tibial pulses but dorsalis pedis was faint and hair growth was diminished. I listened to her pulses with doppler and she has biphasic posterior tibial, biphasic dorsalis pedis and biphasic pulses going to the toe. I discussed options with patient not limited to draining the blister, performing nail avulsion vs doing an avulsion after having chance to order pvr. patient informed that if she does not have adequate perfusion, she could be at risk of amputation or poor healing. patient really wanted to go home today and feels she is ok to proceed and fully accepts risks. she would like to proceed with procedure today. I discussed risks of the procedure not limited to infection, pain, swelling, bleeding, slow wound healing, loss of toe, poor appearance of toenail, need for nail bed repair. I discussed post-op care for patient to include daily wound care, keeping the toe clean and taking antibiotics as ordered. patient would benefit from surgical shoe pending intra-op findings. patient consents to proceed with total nail avulsion of left hallux. patient was transferred to the operating room and placed on the operating room table in the supine position. she was identified by name and procedure. the left foot was prepped and draped in the usual aseptic technique. Local anesthesia consisting of 5 cc of 1% lidocaine plain was given to the first ray in powers block. an additional 2 cc was administered. no injection was administered thru blister. it was all adminstered proximally. I directed my attention to the blister. I palpabled the blister and noticed with manipulation, a clot of blood (superficial hematoma) was expressed. this was cultured and sent for aerobic and anaerobic culture. I evluated the proximal nail fold and noticed extension of blister to the nail plate. sterile esmark was applied for hemostasis at this time. using an elevator, the nail was completely freed. I found the nail to be barely attached. the nail plate was successfully removed and no spicule left behind. once the nail plate was removed, the entire blister peeled off with the nail plate. I then debrided the remaining blister with tissue nippers. she had a superficial blister that measured 2.1 cm x 2.0 cm. no fluctuance was noted. I discussed with patient the possibility of deep hematoma. we discussed proceeding with further debridement/incision and drainage but she opted to monitor. AFter the nail was completely debrided, there was superficial blister that measured just under 0.5 cm. The toe was irrigated with saline. inspection of nail bed revealed no nail bed laceration. The wound was then dressed with bacitracin, adaptic, guaze and lightly applied coban. the esmark was removed prior to dressing and hemostasis was achieved. patient was transferred to floor in stable condition. she will continue with keflex and bactrim. She will f/u in one week. she was instructed to perform local wound care daily. she will wear surgical shoe. Complications none
--- NOTE | 2021-12-13 18:48 | DCINST_ITS ---
Discharge Instructions Diet Discharge Diet: No restrictions and Low fat / Low cholesterol Activity Discharge Activity: Return to Normal Activity Weight Bearing Status: Weight bearing as tolerated and - Additional Activity Instructions:: please weight bear with surgical shoe. Dressing / Incision Call your doctor if your incision/area has: Continuous Slow Oozing, Sudden Increased Bleeding, Increased Pain/ Swelling, Increased Redness, Foul Smelling Discharge and Swelling at the incision site Call your doctor if you observe: Fever of 101 or Higher Change Dressing in: 1 day Cleanse incision/area with: Soap & Water and - Additional Dressing/Incision Instructions:: apply small amount of topical antibiotic cream followed by adaptic (nonadherent guaze) followed by guaze and coban. wrap coban very lightly. can use amol bandage to foot and ankle for swelling reduction. Follow Up Care Please Follow Up With: Lj De Santiago DPM When: one week Test Results: Test results from this visit will be discussed in further detail at your follow- up appointment, if applicable. Discharge Plan Admission Admit Date/Time: 12/12/21 20:23 Primary Reason for Your Visit: Left foot cellulitus Attending Provider: Jose Kent [facility] Providers: Rupal Gannon ; Lj De Santiago Discharge Orders/Prescriptions Prescriptions: Continued cholecalciferol (vitamin D3) 5,000 unit capsule 5,000 unit PO DAILY levocetirizine [Allergy Relief (levocetirizin)] 5 mg tablet 5 mg PO DAILY citalopram 10 mg tablet 10 mg PO DAILY levothyroxine 50 mcg tablet 50 mcg PO DAILY Label Comments: TAKE 1 TABLET BY MOUTH EVERY DAY atorvastatin 10 mg tablet 10 mg PO QHS clopidogrel 75 MG tablet 75 mg PO DAILY Label Comments: TAKE ONE TABLET BY MOUTH EVERY DAY acetaminophen 500 MG tablet 500 mg PO Q6H PRN PRN (Reason: Pain Or Fever) Qty: 28 0RF lisinopril 10 MG tablet 10 mg PO DAILY oxycodone-acetaminophen 1 TABLET tablet 1 tab PO Q6H PRN PRN (Reason: Pain) 3 Days Qty: 12 0RF naproxen [Naprosyn] 500 mg tablet 500 mg PO BID PRN (Reason: pain) Qty: 20 0RF cephalexin 500 mg capsule 500 mg PO Q6 Qty: 40 0RF Referrals / Follow Up: Lj De Santiago DPM [STAFF PHYSICIAN] - [facility] Week [facility]Primary Care Provider[facility] - In 1 Week Disposition Disposition (needs filled in before D/C Order can be placed): Home, Self Care
== END 2021-12-13 19:19 | disposition home or self-care (01) | DRG 603 ==
LOC: ED 20:16 → MS3 21:45
PROVIDERS: Podiatrist Foot & Ankle Surgery; Admitting Provider Family Medicine; Emergency Provider Emergency Medicine; Visit Provider Family Medicine
PROC: 0Y9N0ZX Drainage of Left Foot, Open Approach, Diagnostic (ICD-10-PCS; CPT 11750; principal; 2021-12-13 17:45)
DX: L03.116 Cellulitis of left lower limb (principal); I69.351 Hemiplegia and hemiparesis following cerebral infarction affecting right dominant side; J44.9 Chronic obstructive pulmonary disease, unspecified; N18.2 Chronic kidney disease, stage 2 (mild); S90.212A Contusion of left great toe with damage to nail, initial encounter; J30.9 Allergic rhinitis, unspecified; I25.10 Atherosclerotic heart disease of native coronary artery without angina pectoris; E78.00 Pure hypercholesterolemia, unspecified; I12.9 Hypertensive chronic kidney disease with stage 1 through stage 4 chronic kidney disease, or unspecified chronic kidney disease; E03.9 Hypothyroidism, unspecified; M19.90 Unspecified osteoarthritis, unspecified site; F41.9 Anxiety disorder, unspecified; S90.422A Blister (nonthermal), left great toe, initial encounter; I25.2 Old myocardial infarction; B95.7 Other staphylococcus as the cause of diseases classified elsewhere; W22.09XA Striking against other stationary object, initial encounter; F32.A Depression, unspecified; Z79.1 Long term (current) use of non-steroidal anti-inflammatories (NSAID); Z79.02 Long term (current) use of antithrombotics/antiplatelets; Z79.899 Other long term (current) drug therapy; Z87.891 Personal history of nicotine dependence
CPT/HCPCS: 36415; 73630; 80048; 80053; 83036; 83605; 85025; 85652; 86140; 87070; 87075; 87077; 87186; 87205; 87640; 97802; 99251; 99283; 99284; 99406; J7030; G0463

== ENCOUNTER → 2021-12-27 | Outpatient (CLI) | payer MEDICARE, MEDICAID, SELFPAY ==
[2021-12-27 14:01] LABS: AST(SGOT) 24 U/L (15-37); Alanine Aminotransfer ALT/SGPT 32 U/L (13-56); Albumin, Serum 3.4 g/dL (3.2-5.0); Alkaline Phosphatase 61 U/L (45-117); Anion Gap 4 (5-15); BUN 14 mg/dL (7-18); BUN/Creat Ratio 14.4 RATIO (10-20); Calcium,Total 8.8 mg/dL (8.5-10.1); Chloride 105 mmol/L (98-107); Creatinine, Serum 0.97 mg/dL (0.55-1.02); EST Glomerular Filtration Rate 61 mL/min (>60); Est Glom Filt Rate - Afr Amer 74 mL/min (>60); Globulin 3.3 g/dL (2.2-4.2); Glucose 91 mg/dL (74-106); Potassium 4.2 mmol/L (3.5-5.1); Protein, Total 6.7 g/dL (6.4-8.2); Sodium Level 141 mmol/L (136-145); Thyroid Stim Hormone (TSH) 1.41 uIU/mL (0.358-3.74)
== END | disposition home or self-care (01) ==
LOC: LAB 11:51
PROVIDERS: Referring Provider Nurse Practitioner Adult Health; Visit Provider Nurse Practitioner Adult Health
DX: E03.9 Hypothyroidism, unspecified (principal)
CPT/HCPCS: 36415; 80053; 84443

== ENCOUNTER 2022-01-11 13:15 | Emergency (ER) | payer MEDICARE, MEDICAID, SELFPAY ==
[2022-01-11 13:15] VITALS: BP 112/73; PULSE 74; RESP 16; TEMP 36.2; O2SAT 93; BMI 22.4
== END 2022-01-11 15:22 | disposition left against medical advice (07) ==
LOC: ED 15:22
DX: R69 Illness, unspecified (principal); Z53.21 Procedure and treatment not carried out due to patient leaving prior to being seen by health care provider

== ENCOUNTER → 2022-01-18 | Outpatient (CLI) | payer MEDICARE, MEDICAID, SELFPAY ==
--- NOTE | 2022-01-18 13:16 | CT_ITS ---
STUDY: LOW DOSE CT LUNG CANCER SCREENING REASON FOR EXAM: Female, 66 years old. Nicotine dependence. Patient smoked 1 pack per day for 30 years. RADIATION DOSAGE (If Supplied By Facility): CTDIvol = ( 2.01 ) mGy, DLP = ( 72.48 ) mGycm TECHNIQUE: No contrast was administered. Low dose technique was utilized (average mAS-38 and kVp 120). 1.25 mm axial source images with a slice interval of 1.25-mm were reconstructed in lung windows. 2.5 mm axial source images with a slice interval of 2.5-mm were reconstructed in lung windows. 5.0 mm axial source images with a slice interval of 5.0-mm were reconstructed in soft tissue windows. COMPARISON: Comparison is made with prior examination dated 08/26/2021. NODULES: Stable 3 mm pleural-based nodule in the lateral anterior aspect of the left lower lobe as seen on axial image #162. Stable calcified granuloma in the superior segment of the right lower lobe. Emphysema: Hyperinflation. Diffuse emphysematous changes with centrilobular emphysema more prominent in the upper lobes. Stable apical scarring more prominent in the right upper lobe. There was evidence of scarring and focal bronchiectasis in the medial aspect of the right upper lobe. At this time, there appears to be a 7.3 mm x 7 mm nodular density most likely representing a focal area of scar. Endobronchial lesion: None Aorta: Atherosclerotic plaque formation of the aortic arch. CORONARY ARTERIES: Coronary artery calcification is seen. Heart: Unremarkable Pulmonary artery: Unremarkable Mediastinal nodes: Small mediastinal lymph nodes. Other chest and abdominal findings: CT/Low Dose CT Lung Screening IMPRESSION: Lung-RADS category 2 - Continue annual screening with LDCT in 12 months. IMPORTANT NOTES FOR USE: ACR Lung-RADS Version 1.1 Assessment Categories Release Date: 2018 Category: Coded 0-4 bases on nodule(s) with highest degree of suspicion. Negative screen is defined as categories 1 and 2; a positive screen is defined as categories 3 and 4. Category 3 and 4A nodules that are unchanged on interval CT should be coded as category 2, and individuals returned to screening in 12 months. Category 4X: Category 3 or 4 nodules with additional imaging findings that increase the suspicion of lung cancer, such as spiculation, GGN that doubles in size in 1 year, enlarged lymph notes, etc. Category Modifiers: S (significant finding unrelated to lung cancer) Electronically Signed: Oskar Castillo MD at 14:54 EDT ,
== END | disposition home or self-care (01) ==
LOC: CT 13:15
PROVIDERS: Referring Provider Nurse Practitioner Acute Care; Visit Provider Nurse Practitioner Acute Care
DX: Z12.2 Encounter for screening for malignant neoplasm of respiratory organs (principal); Z87.891 Personal history of nicotine dependence
CPT/HCPCS: 71271

== ENCOUNTER 2022-04-07 15:31 | Emergency (ER) | payer MEDICARE, MEDICAID, SELFPAY ==
[2022-04-07 15:32] VITALS: BP 134/61; PULSE 74; RESP 14; TEMP 36.8; O2SAT 94; BMI 25.0
[2022-04-07 15:42] VITALS: BP 123/52; PULSE 71; RESP 18; O2SAT 91
--- NOTE | 2022-04-07 16:08 | EX.ED.DYSGE1 ---
HPI History of Present Illness Chief Complaint: Other, Pain/Inj Informant: patient Onset/Context/Timing Onset: Weeks (1) Context: - (since surgery) Timing: Continuous Quality: sore/ache Location: lower abd, right thigh Current Severity: Moderate Maximum Severity: Moderate Worsened by: walking, palpation Relieved by: nothing; taking her oxycodone Associated Symptoms Associated Symptoms: no fever, discharge, bleeding, hematuria, n/v/d, BRBPR Narrative Narrative: Patient had plastic surgery by someone at [facility] 1 week ago and presents for postoperative pain. She states she had a large divot in her left thigh, and to help fix this the surgeon pulled subcutaneous adipose tissue out of her lower abdominal wall and put it into the defect in her thigh. She did not have a flap or skin graft. She states she has been having pain ever since the procedure, she was prescribed oxycodone which she is taking, and it is not helping with the pain. She denies any other issues. She has not yet called her surgeon to talk to them about this just came here. [facility] Medical History Abdominal pain Ambulates with cane Anxiety Anxiety disorder Arthritis Bronchitis Bruising CAD (coronary artery disease) Chest pain COPD (chronic obstructive pulmonary disease) Depression Diaphragm paralysis Difficulty chewing Difficulty swallowing Easy bruising Former smoker Fuchs' corneal dystrophy Gastric reflux High cholesterol History of cerebrovascular disease History of CVA (cerebrovascular accident) History of echocardiogram History of heart attack History of hiatal hernia History of IBS History of irregular heartbeat History of renal disease History of stress test HTN (hypertension) Hypoxia Restless legs Shortness of breath on exertion Skin tear Stroke/cerebrovascular accident Thyroid disease Wears dentures Wears glasses Home Medications clopidogrel 75 mg tablet 75 mg PO DAILY 07/07/18 [History Last Taken 06/12/19] cholecalciferol (vitamin D3) 125 mcg (5,000 unit) capsule 5,000 unit PO DAILY 08/14/18 [History Last Taken 06/12/19] acetaminophen 500 mg tablet 500 mg PO Q6H PRN PRN Pain Or Fever #28 tabs 06/16/19 [Rx Last Taken Unknown] levocetirizine 5 mg tablet (Allergy Relief (levocetirizine)) 5 mg PO DAILY 10/31/19 [History Last Taken Unknown] lisinopril 10 mg tablet 10 mg PO DAILY 03/21/20 [History Last Taken 09/21/21 09:30] atorvastatin 10 mg tablet 10 mg PO QHS 08/17/21 [History Last Taken Unknown] citalopram 10 mg tablet 10 mg PO DAILY 08/17/21 [History Last Taken Unknown] levothyroxine 50 mcg tablet 50 mcg PO DAILY 08/17/21 [History Last Taken Unknown] oxycodone-acetaminophen 5 mg-325 mg tablet 1 tab PO Q6H PRN PRN Pain 3 days #12 TABLETS 11/01/21 [Rx Last Taken Unknown] naproxen 500 mg tablet (Naprosyn) 500 mg PO BID PRN pain #20 tabs 12/08/21 [Rx Last Taken Unknown] tiotropium 2.5 mcg-olodaterol 2.5 mcg/actuation mist for inhalation (Stiolto Respimat) 2 inh inhalation DAILY #4 grams 02/15/22 [Rx Last Taken Unknown] Allergy/AdvReac Type Severity Reaction Status Date / Time hydrocodone bitartrate Allergy HALLUCINATE Verified 04/07/22 15:45 [From Vicodin] S vancomycin Allergy Rash Verified 04/07/22 15:45 fish derived AdvReac Anaphylaxis Verified 04/07/22 15:45 morphine AdvReac HALLUCINATE Verified 04/07/22 15:45 S Family History Mother Diabetes Heart disease Hypertension High cholesterol Father Heart disease Hypertension High cholesterol CVA (cerebral vascular accident) Surgical History History bilateral cataract surgery History left shoulder surgery History of tubal ligation Social History household members: significant other housing: apartment pets and animals: Yes pets and animals: dog(s) Smoking Status: Former smoker quit date: 10/28/19 pack-years: 25 Tobacco: How many years used: 25 second hand exposure: Yes alcohol intake: never substance use type: does not use ROS ROS ED Constitutional Constitutional ED: Denies chills or fever(s) Gastrointestinal Gastrointestinal: Reports abdominal pain; Denies diarrhea, melena, nausea or vomiting Genitourinary Genitourinary ED: Denies dysuria, hematuria or urinary frequency Musculoskeletal Musculoskeletal: Reports extremity pain; Denies neck pain Integumentary Reports wounds; Denies Abrasions or rash Neurologic Neurologic: Denies paresthesias or weakness EXAM Physical Exam Const Vital Signs: 04/07/22 15:32 04/07/22 15:42 04/07/22 15:43 Temperature 98.2 F Temperature Source Temporal Pulse Rate 74 71 Respiratory Rate 14 18 Respiratory Effort Normal Non-Labored Respiratory Pattern Normal Blood Pressure 134/61 H 123/52 H Blood Pressure Mean 85 75 Pulse Ox 94 91 Oxygen Delivery Method Room Air Room Air Positive well nourished and well developed General Appearance ED: well developed and NAD Neck full ROM and supple GI GI Narrative: Mild tenderness around very small operative incisions bilateral lower abdominal wall. There is some minor ecchymosis but no erythema or drainage, Steri-Strips in place. Minor ecchymosis around the umbilicus without any signs of erythema or infection there. Mild tenderness throughout the lower abdominal wall and between the surgical incisions. Skin is normal-appearing in those areas as well. Back/Spine normal ROM and normal to inspection Extremity Extremity Narrative: Left thigh: Operative site ecchymoses, skin intact, 2 small insertion points where there is a suture on either 1 which is intact and no signs of any infection anywhere. All compartments soft and nondistended. Full range of motion throughout all joints. Tender throughout the operative area which is broad. Trace of any blood on the large dressing. Neuro oriented x3, no focal motor deficits and no sensory deficits noted Sensorium / Orientation: alert Psych mental status grossly normal and thought process normal Skin Skin Narrative: Operative wound left thigh and lower abdominal wall see above Rashes: no rashes MDM MDM MDM Narrative Medical decision making narrative: Certainly I see no signs of infection. However, I am not familiar with the surgery as I discussed with the patient and I told her that she needs to talk to her surgeon about what to expect at this time postoperatively. I was happy to treat her pain, but she states she does not want morphine because it makes her feel loopy and she hallucinates. I advised her that I am very limited with what I can give her here since she also has similar reaction to hydrocodone. Her last oxycodone was taken 6 hours ago so she was agreeable to taking 2 of those here. She is well-appearing and in no distress and I do not think she needs to be emergently transferred to [facility]. Discharge Plan Triage Chief Complaint: Other, Pain/Inj ED Provider: Rl Britt Dx/Rx/DC Orders Clinical Impression: Post-operative pain, Encounter for postoperative wound check Instructions: ED Post Op Wound Check, Pain Prescriptions: No Action cholecalciferol (vitamin D3) 5,000 unit capsule 5,000 unit PO DAILY levocetirizine [Allergy Relief (levocetirizin)] 5 mg tablet 5 mg PO DAILY citalopram 10 mg tablet 10 mg PO DAILY levothyroxine 50 mcg tablet 50 mcg PO DAILY Label Comments: TAKE 1 TABLET BY MOUTH EVERY DAY atorvastatin 10 mg tablet 10 mg PO QHS Stiolto Respimat 2.5-2.5 mcg/actuation mist 2 inh inhalation DAILY Qty: 4 2RF clopidogrel 75 MG tablet 75 mg PO DAILY Label Comments: TAKE ONE TABLET BY MOUTH EVERY DAY acetaminophen 500 MG tablet 500 mg PO Q6H PRN PRN (Reason: Pain Or Fever) Qty: 28 0RF lisinopril 10 MG tablet 10 mg PO DAILY oxycodone-acetaminophen 1 TABLET tablet 1 tab PO Q6H PRN PRN (Reason: Pain) 3 Days Qty: 12 0RF naproxen [Naprosyn] 500 mg tablet 500 mg PO BID PRN (Reason: pain) Qty: 20 0RF Primary Care Provider: [facility] Danae Valdez Referrals: surgeon, your [Other] - As soon as possible (for phone reevaluation and to discern if they want to see you sooner than your scheduled appt on 04/14) [facility] - Disposition Disposition: Home, Self Care
[2022-04-07] MEDS: oxyCODONE 5 MG Tablet 10 MG PO (16:14)
[2022-04-07 16:16] VITALS: BP 120/54; PULSE 70; RESP 18; O2SAT 94
== END 2022-04-07 16:35 | disposition home or self-care (01) ==
LOC: ED 16:27
PROVIDERS: Emergency Provider Emergency Medicine; Visit Provider Emergency Medicine
DX: G89.18 Other acute postprocedural pain (principal); J44.9 Chronic obstructive pulmonary disease, unspecified; E78.00 Pure hypercholesterolemia, unspecified; I25.10 Atherosclerotic heart disease of native coronary artery without angina pectoris; I10 Essential (primary) hypertension; Z51.89 Encounter for other specified aftercare; Z87.891 Personal history of nicotine dependence
CPT/HCPCS: 99283

== ENCOUNTER → 2022-04-19 | Outpatient (CLI) | payer MEDICARE, MEDICAID, SELFPAY ==
--- NOTE | 2022-04-19 13:15 | RAD_ITS ---
STUDY: XR Shoulder Min 2 Views REASON FOR EXAM: Female, 66 years old. PAIN IN RT SHOULDER TECHNIQUE: XR Shoulder Min 2 Views RIGHT COMPARISON: None. FINDINGS: Normal glenohumeral articulation. There is degenerative arthrosis of the acromioclavicular joint without inferior osseous spur formation. Normal acromion. Normal humeral head and visualized proximal humerus. The soft tissue structures are unremarkable. Normal visualized pulmonary apex. RAD/Shoulder min 2 Views IMPRESSION: There are no acute findings of the shoulder. Electronically Signed: Harmeet Mosley MD at 15:13 EST Reading Location ID and State: [facility] / [place] , Service support ,
== END | disposition home or self-care (01) ==
LOC: RAD 12:14
DX: M25.511 Pain in right shoulder (principal)
CPT/HCPCS: 73030

== ENCOUNTER → 2022-06-02 | Outpatient (CLI) | payer MEDICARE, MEDICAID, SELFPAY ==
--- NOTE | 2022-06-02 14:00 | RAD_ITS ---
STUDY: X-RAY - CERVICAL SPINE REASON FOR EXAM: Female, 66 years old. CERVICALGIA TECHNIQUE: XR Spine Cervical 4 or 5 Views COMPARISON: None FINDINGS: Normal anterior atlantoaxial articulation. The odontoid process is obscured by the overlying hard palate on the open mouth view. Therefore, it is not fully evaluated by plain film. There is straightening of the normal cervical lordosis. There is multi-level endplate spondylosis. There is multi-level degenerative disc disease with multilevel disc space narrowing. There is multi-level osseous foraminal stenosis. The soft tissue structures are unremarkable. RAD/Cerv Spine 4 or 5 Views IMPRESSION: There are degenerative changes as noted above. The odontoid process is obscured by the overlying hard palate on the open mouth view. Therefore, it is not fully evaluated by plain film. Electronically Signed: Harmeet Mosley MD at 14:32 EST ,
== END | disposition home or self-care (01) ==
LOC: RAD 13:38
PROVIDERS: Visit Provider Nurse Practitioner Family
DX: M54.2 Cervicalgia (principal)
CPT/HCPCS: 72050

== ENCOUNTER 2022-06-07 14:03 | Observation (INO) | payer MEDICARE, MEDICAID, SELFPAY ==
[2022-06-07] VITALS (7 sets, daily range): BP systolic 112–164; BP diastolic 67–83; PULSE 56–98; RESP 16–18; TEMP 36.6–36.7; O2SAT 93–98; BMI 24.3; BMI 24.5
--- NOTE | 2022-06-07 14:08 | ED.RN ---
NO STROKE ALERT CALLED IN TRIAGE PER DR TOMAS.
[2022-06-07 14:37] LABS: Absolute Lymphocyte Count 1.22 X10^3/uL (0.83-4.51); Absolute Neutrophil Count 1.4 X10^3/uL (2.0-7.7); Basophil# 0.03 X10^3/uL; Eosinophil# 0.08 X10^3/uL; Eosinophils% 2.6 % (0-5); Hematocrit 43.4 % (37-47); Hemoglobin 13.8 g/dL (12.0-15.0); Lymphocyte # 1.22 X10^3/ul (0.83-4.51); Lymphocyte % 40.4 % (19-41); Mean Corp Hgb Conc 31.8 g/dL (32-36); Mean Corpuscular Hgb 29.4 pg (27.0-32.0); Mean Corpuscular Volume 92.5 fL (81-99); Mean Platelet Vol. 9.1 fl (6.2-12.0); Monocyte# 0.24 X10^3/uL; Monocyte% 7.9 % (0-10); NRBC Flagged by Analyzer 0 % (0-5); Neutrophil # 1.44 X10^3/uL (2.7-7.7); Neutrophil % 47.8 % (47-70); Platelet Count 188 K/mm3 (150-450); RBC Distribution Width CV 12.4 % (11.6-14.6); Red Blood Count 4.69 M/mm3 (4.2-5.4)
[2022-06-07 14:44] LABS: Anion Gap 5 (5-15); BUN 21 mg/dL (7-18); BUN/Creat Ratio 23.8 RATIO (10-20); Calcium,Total 8.7 mg/dL (8.5-10.1); Chloride 106 mmol/L (98-107); Creatinine, Serum 0.88 mg/dL (0.55-1.02); EST Glomerular Filtration Rate 68 mL/min (>60); Est Glom Filt Rate - Afr Amer 83 mL/min (>60); Estimated Creatinine Clearance 60.46 ml/min; Glucose 89 mg/dL (74-106); Partial Thromboplast Time 28.7 Seconds (24.1-36.2); Prothrombin Time (Protime)PT. 12.8 SECONDS (11.7-14.9); Sodium Level 141 mmol/L (136-145)
--- NOTE | 2022-06-07 15:15 | CT_ITS ---
INDICATION: tia EXAMINATION: CT BRAIN - CT Head or Brain W/O Contrast Injection TECHNIQUE: Multiple axial images were obtained of the head without intravenous contrast. A radiation dose optimization technique was used for this scan. IV Contrast dosage and agent: None. COMPARISON: 03/21/2020 FINDINGS: BRAIN PARENCHYMA: No intra- or extra-axial hemorrhage. No evidence of acute infarct. No intracranial mass or mass effect. Posterior fossa structures are unremarkable. CSF SPACES: Appropriate for age. No hydrocephalus. Basal cisterns are patent. CALVARIUM, SKULL BASE, PARANASAL SINUSES AND MASTOID AIR CELLS: Clear. No discrete lytic or blastic abnormalities. ORBITS: Both globes, extraocular muscles, optic nerves and retrobulbar fat appear unremarkable. CT/Brain/Head without Contrast IMPRESSION: No acute intracranial findings. Electronically Signed: Akhil Castanon MD at 15:59 EST ,
--- NOTE | 2022-06-07 15:16 | EDS_ITS ---
HPI History of Present Illness Chief Complaint: Weakness Narrative Narrative: 66-year-old female presenting with right-sided weakness. She also complains of a mild headache. She states this started with dizziness at about 1:00 when she was going for a regular checkup at [facility]. She states she was in the parking lot and states she was staggering like a drunk. The patient states that she was diagnosed with vertigo a couple of weeks ago but is not on any medication for that. She currently does not feel dizzy and she has no right- sided deficits. These resolved. Her family states that they have not heard any slurred speech but the patient states that she felt like she was slurring. I will at her checkup. Her family reports that for a couple of days they have noted that she will. Start walking and while she is walking she will be talking and then acutely stop and feel dizzy and might have a little bit of slurred speech initially which are resolved. The patient herself states that she has had the symptoms since 2010 when she had a stroke. Denies any visual complaints which she has had in the past. Also states that she has had intermittent chronic right-sided weakness for years. He does state is not usually associated with a headache. She denies any trauma. She is on Plavix daily without aspirin. [facility] Medical History Abdominal pain Ambulates with cane Anxiety Anxiety disorder Arthritis Bronchitis Bruising CAD (coronary artery disease) Chest pain COPD (chronic obstructive pulmonary disease) Depression Diaphragm paralysis Difficulty chewing Difficulty swallowing Easy bruising Former smoker Fuchs' corneal dystrophy Gastric reflux High cholesterol History of cerebrovascular disease History of CVA (cerebrovascular accident) History of echocardiogram History of heart attack History of hiatal hernia History of IBS History of irregular heartbeat History of renal disease History of stress test HTN (hypertension) Hypoxia Restless legs Shortness of breath on exertion Skin tear Stroke/cerebrovascular accident Thyroid disease Wears dentures Wears glasses Home Medications clopidogrel 75 mg tablet 75 mg PO DAILY BLOOD THINNER 07/07/18 [History Last Taken 06/07/22] cholecalciferol (vitamin D3) 125 mcg (5,000 unit) capsule 5,000 unit PO DAILY SUPPLEMENT 08/14/18 [History Last Taken 06/07/22] levocetirizine 5 mg tablet (Allergy Relief (levocetirizine)) 5 mg PO DAILY ALLERGIES 10/31/19 [History Last Taken 06/07/22] lisinopril 10 mg tablet 10 mg PO DAILY BLOOD PRESSURE 03/21/20 [History Last Taken 06/07/22] atorvastatin 10 mg tablet 10 mg PO QHS CHOLESTEROL 08/17/21 [History Last Taken 06/06/22] citalopram 10 mg tablet 10 mg PO DAILY DEPRESSION 08/17/21 [History Last Taken 06/07/22] levothyroxine 50 mcg tablet 50 mcg PO DAILY THYROID 08/17/21 [History Last Taken 06/07/22] acetaminophen 500 mg tablet 500 mg PO Q6H PRN Pain 06/07/22 [History Last Taken 06/07/22] tiotropium 2.5 mcg-olodaterol 2.5 mcg/actuation mist for inhalation (Stiolto Respimat) 2 inh inhalation DAILY COPD 06/07/22 [History Last Taken 06/07/22] Allergy/AdvReac Type Severity Reaction Status Date / Time hydrocodone bitartrate Allergy HALLUCINATE Verified 06/07/22 14:07 [From Vicodin] S vancomycin Allergy Rash Verified 06/07/22 14:07 fish derived AdvReac Anaphylaxis Verified 06/07/22 14:07 morphine AdvReac HALLUCINATE Verified 06/07/22 14:07 S Family History Mother Diabetes Heart disease Hypertension High cholesterol Father Heart disease Hypertension High cholesterol CVA (cerebral vascular accident) Surgical History History bilateral cataract surgery History left shoulder surgery History of tubal ligation Social History household members: significant other housing: apartment pets and animals: Yes pets and animals: dog(s) Smoking Status: Former smoker quit date: 10/28/19 pack-years: 25 Tobacco: How many years used: 25 second hand exposure: Yes alcohol intake: never substance use type: does not use EXAM Physical Exam Const Vital Signs: 06/07/22 14:04 06/07/22 15:03 06/07/22 15:03 Temperature 98 F 97.8 F Temperature Source Temporal Temporal Pulse Rate 81 57 L Respiratory Rate 16 18 Respiratory Effort Normal Respiratory Pattern Normal Blood Pressure 160/71 H Blood Pressure Mean 100 Pulse Ox 98 98 Oxygen Delivery Method Room Air Room Air 06/07/22 15:03 06/07/22 15:03 06/07/22 17:00 Temperature 97.8 F Temperature Source Temporal Pulse Rate 56 L 60 Respiratory Rate 18 18 Respiratory Effort Respiratory Pattern Blood Pressure 162/76 H 155/72 H Blood Pressure Mean 104 99 Pulse Ox 98 97 Oxygen Delivery Method Room Air Room Air Room Air Positive well nourished General Appearance ED: NAD HEENT Reports moist mucous membranes Eyes PERRL and EOMs intact bilaterally Neck no lymphadenopathy Resp normal respiratory effort and clear to auscultation bilaterally Cardio Rate: regular rate Rhythm: regular rhythm GI normal to inspection, nondistended, normoactive bowel sounds Neuro oriented x3 and CN's II-XII intact bilaterally [place] Coma Scale: document GCS findings Spontaneous Obeys Commands Oriented 15 Sensorium / Orientation: alert Speech: speech normal Sensory Exam: sensory level loss detected Motor Exam: strength 5/5 throughout Skin no wounds NIHSS NIHSS Initial: 1a Level of Consciousness: 0 1b LOC Questions (Score 2 if aphasic/stupor): 0 1c LOC Commands (Only score 1st attempt): 0 2 Best Gaze (If aphasic, use reflexive mvmts.): 0 3 Visual: 0 4 Facial Palsy: 0 5 Motor Arm Right (UN = amputation/fusion): 0 5 Motor Arm Left: 0 6 Motor Leg Right: 0 6 Motor Leg Left: 0 7 Limb ataxia (Only + if out of proportion): 0 8 Sensory (Aphasia/stupor=0 or 1, coma=2): 0 9 Best Language: 0 10 Dysarthria (mute, coma=2, intubated=UN): 0 11 Extinction and Inattention (only scored if +): 0 Total Score: 0 MDM MDM MDM Narrative Medical decision making narrative: Patient presenting with mild headache. She does states she has a history of migraines but this is nothing like a migraine because she sleeps when she gets m igraines and her headaches are more severe. She also states she had right-sided weakness which is no longer present. She states she was staggering in a parking lot at her previous office visit about 1 PM and this is resolved.No visual complaints or/disturbances. No numbness or tingling. No chest pain or shortness of breath. Her exam is essentially normal however she has a history of. Stroke. She does takes Plavix daily. No aspirin. Review of the medical record shows that she has had several work-ups here for stroke which have all been normal. She has had this chronic intermittent weakness and actually some visual disturbances in the right eye previously. Her MRIs have been negative. Medical record also states given her multiple work-ups this is likely conversion disorder versus atypical headache/migraine symptoms which is in the differential as well as TIA given her history. I did not call a stroke team. I will obtain a CT brain. Blood work was obtained and her CBC shows leukopenia which is chronic for her with a white blood cell count of 3.0. Hemoglobin hematocrit appear to be normal. Coagulation studies are normal. CT of the brain negative for acute intracranial process. Chest x-ray my interpretation shows no acute cardiopulmonary process and the radiologist are persistent agrees. Given the patient's symptoms I do have to be concerned for a TIA although she does have history of this in the past with negative work-ups. I did discuss with the hospitalist for admission. Impression: 1. Headache 2. Right-sided weakness resolved 3. TIA 4. leukopenia Lab Data Attestation: I reviewed the patient's lab results. Labs: Laboratory Results - last 24 hr 06/07/22 06/07/22 06/07/22 13:50 13:50 13:50 WBC 3.0 L RBC 4.69 Hgb 13.8 Hct 43.4 MCV 92.5 MCH 29.4 MCHC 31.8 L RDW Std Deviation 42.0 RDW Coeff of Keo 12.4 Plt Count 188 MPV 9.1 Immature Gran % (Auto) 0.300 Neut % (Auto) 47.8 Lymph % (Auto) 40.4 [place] % (Auto) 7.9 Eos % (Auto) 2.6 Baso % (Auto) 1.0 Absolute Neuts (auto) 1.4 L Absolute Lymphs (auto) 1.22 Nucleated RBC % 0 PT 12.8 INR 1.0 APTT 28.7 Sodium 141 Potassium 4.0 Chloride 106 Carbon Dioxide 30.0 Anion Gap 5 BUN 21 H Creatinine 0.88 Estim Creat Clear Calc 60.46 Est GFR (MDRD) Af Amer 83 Est GFR (MDRD) Non-Af 68 BUN/Creatinine Ratio 23.8 H Glucose 89 Calcium 8.7 Troponin I High Sens 06/07/22 13:50 WBC RBC Hgb Hct MCV MCH MCHC RDW Std Deviation RDW Coeff of Keo Plt Count MPV Immature Gran % (Auto) Neut % (Auto) Lymph % (Auto) [place] % (Auto) Eos % (Auto) Baso % (Auto) Absolute Neuts (auto) Absolute Lymphs (auto) Nucleated RBC % PT INR APTT Sodium Potassium Chloride Carbon Dioxide Anion Gap BUN Creatinine Estim Creat Clear Calc Est GFR (MDRD) Af Amer Est GFR (MDRD) Non-Af BUN/Creatinine Ratio Glucose Calcium Troponin I High Sens 5 Radiography Diagnostic Testing: Clinical Impression(s) from Imaging Studies Brain CT 06/07/22 15:15 IMPRESSION: No acute intracranial findings. Electronically Signed: Akhil Castanon MD at 15:59 EST , Chest X-Ray 06/07/22 15:30 IMPRESSION: No radiographic evidence of acute cardiopulmonary disease. Electronically Signed: Akhil Castanon MD at 16:01 EST , Discharge Plan Disposition Disposition: Acute Care Hospital [facility] Discharge Date/Time: 06/07/22 18:24
--- NOTE | 2022-06-07 15:30 | RAD_ITS ---
INDICATION: Stroke EXAMINATION/TECHNIQUE: X-RAY - portable upright AP chest x-ray COMPARISON: 07/10/2021 FINDINGS: LINES/DEVICES: None. LUNGS: No consolidation, edema or effusion. No pneumothorax. MEDIASTINUM AND CARDIOVASCULAR STRUCTURES: Cardiac silhouette not enlarged. Central airways and mediastinal contour are unremarkable. BONES AND SOFT TISSUES: Unremarkable. RAD/Chest 1 View (Portable) IMPRESSION: No radiographic evidence of acute cardiopulmonary disease. Electronically Signed: Akhil Castanon MD at 16:01 EST ,
--- NOTE | 2022-06-07 15:43 | ED.RN ---
CANCEL Q30 [facility] PER [address] GUERRA
[2022-06-07 16:23] LABS: Troponin-I HS 5 pg/mL (3.0-54.0)
--- NOTE | 2022-06-07 17:12 | PCM.HP.STD ---
HPI - General General Date of Admission: 06/07/22 Date of Service: 06/07/22 Chief Complaint: Transient R sided weakness, gait disturbance, slurred speech, vertigo. HPI Narrative The patient is a 66 y/o F w/ PMHx: Hypothyroidism, CAD, COPD w/ bronchiectasis, Anxiety and Depression, GERD, Hx CVA with R sided hemiplegia, RLS, Former tobacco use who presents to the [facility] ED on 06/07/22 with history of onset of dizziness as well as a mild generalized headache starting approximately 1 PM during regular evaluation at her PCP office reporting that she had been in the parking lot and felt as though her gait was significantly altered, staggering with recent diagnosis with vertigo over the last couple weeks but no recent medications prescribed for this but she has since improved and does report initially she had worsened right-sided symptoms as well as dizziness and transient altered speech but this is since resolved however today she had recurrent significant debility prompting eventual ED evaluation. Patient does have intermittent chronic right-sided chest discomfort and this has been ongoing for years and is unchanged. She notes the discomfort happens in the right side of the chest into the right shoulder and right arm and often into her back described as sharp stabbing, aching and dull throbbing tentative 10 lasting 20 to 25 minutes but seems to improve when she becomes more active. In the ED NIH stroke scale noted to be 0 with complete resolution of prior symptoms. ED physician did review extensive medical records and from reports patient has had similar presentations previously with all unremarkable MRIs with no evidence of any prior stroke with reports per neurology evaluations conversion disorder versus atypical headache/migraine symptoms. Patient following further discussions does report that she has been having a intermittent headache primarily in the frontal region that extends towards the cerebellum along the midline with light and sound sensitivity with no specific aura nor any nausea or emesis related but describes it as sharp, stabbing, aching, throbbing and when it does occur rates the discomfort 4-5 out of 10 in severity. Work-up in the ED included T 98, heart rate 81, BP 160/71, respiratory rate 16, 98% on room air, CBC with WC 3.0, hemoglobin 13.8, platelet 188 with neutropenia noted to be 1.4, unremarkable coags, BMP with BUN/creatinine 21/0.88 otherwise unremarkable, troponin 5, chest x-ray with no acute cardiopulmonary findings, CT of the brain with no acute intracranial findings, EKG with sinus bradycardia with no acute evidence of ischemia. [facility] Medical History Abdominal pain Ambulates with cane Anxiety Anxiety disorder Arthritis Bronchitis Bruising CAD (coronary artery disease) Chest pain COPD (chronic obstructive pulmonary disease) Depression Diaphragm paralysis Difficulty chewing Difficulty swallowing Easy bruising Former smoker Fuchs' corneal dystrophy Gastric reflux High cholesterol History of cerebrovascular disease History of CVA (cerebrovascular accident) History of echocardiogram History of heart attack History of hiatal hernia History of IBS History of irregular heartbeat History of renal disease History of stress test HTN (hypertension) Hypoxia Restless legs Shortness of breath on exertion Skin tear Stroke/cerebrovascular accident Thyroid disease Wears dentures Wears glasses Home Medications clopidogrel 75 mg tablet 75 mg PO DAILY BLOOD THINNER 07/07/18 [History Last Taken 06/07/22] cholecalciferol (vitamin D3) 125 mcg (5,000 unit) capsule 5,000 unit PO DAILY SUPPLEMENT 08/14/18 [History Last Taken 06/07/22] levocetirizine 5 mg tablet (Allergy Relief (levocetirizine)) 5 mg PO DAILY ALLERGIES 10/31/19 [History Last Taken 06/07/22] lisinopril 10 mg tablet 10 mg PO DAILY BLOOD PRESSURE 03/21/20 [History Last Taken 06/07/22] atorvastatin 10 mg tablet 10 mg PO QHS CHOLESTEROL 08/17/21 [History Last Taken 06/06/22] citalopram 10 mg tablet 10 mg PO DAILY DEPRESSION 08/17/21 [History Last Taken 06/07/22] levothyroxine 50 mcg tablet 50 mcg PO DAILY THYROID 08/17/21 [History Last Taken 06/07/22] acetaminophen 500 mg tablet 500 mg PO Q6H PRN Pain 06/07/22 [History Last Taken 06/07/22] tiotropium 2.5 mcg-olodaterol 2.5 mcg/actuation mist for inhalation (Stiolto Respimat) 2 inh inhalation DAILY COPD 06/07/22 [History Last Taken 06/07/22] Allergy/AdvReac Type Severity Reaction Status Date / Time hydrocodone bitartrate Allergy HALLUCINATE Verified 06/07/22 14:07 [From Vicodin] S vancomycin Allergy Rash Verified 06/07/22 14:07 fish derived AdvReac Anaphylaxis Verified 06/07/22 14:07 morphine AdvReac HALLUCINATE Verified 06/07/22 14:07 S Family History Mother Diabetes Heart disease Hypertension High cholesterol Father Heart disease Hypertension High cholesterol CVA (cerebral vascular accident) Surgical History History bilateral cataract surgery History left shoulder surgery History of tubal ligation Social History household members: significant other housing: apartment pets and animals: Yes pets and animals: dog(s) Smoking Status: Former smoker quit date: 10/28/19 pack-years: 25 Tobacco: How many years used: 25 second hand exposure: Yes alcohol intake: never substance use type: does not use ROS ROS Narrative Admission Review of Systems: CONSTITUTIONAL: No weight loss, fever, chills, + weakness or fatigue. HEENT: Eyes: No visual loss, blurred vision, double vision or yellow sclerae. Ears, Nose, Throat: No hearing loss, sneezing, congestion, runny nose or sore throat. SKIN: No rash or itching, lesions, wounds. CARDIOVASCULAR: + chest pain, chest pressure or chest discomfort, No palpitations, edema, orthopnea, syncopal events. RESPIRATORY: No shortness of breath, cough or sputum, wheezing, hemoptysis. GASTROINTESTINAL: No anorexia, nausea, vomiting or diarrhea, abdominal pain, melena, BRBPR. GENITOURINARY: No dysuria, frequency, urgency or retention. NEUROLOGICAL: + headache, dizziness, gait disturbance, ataxia, right-sided focal transient weakness, No syncope, numbness or tingling in the extremities, change in bowel or bladder control, seizure. MUSCULOSKELETAL: + muscle, back pain, joint pain or stiffness. HEMATOLOGIC: No anemia, bleeding or bruising. LYMPHATICS: No enlarged nodes. No history of splenectomy. PSYCHIATRIC: + history of depression or anxiety. ENDOCRINOLOGIC: No reports of sweating, cold or heat intolerance. No polyuria or polydipsia. ALLERGIES: + history of anaphylaxis. Vital Signs Vital Signs Vital Signs: 06/07/22 14:04 06/07/22 15:03 06/07/22 15:03 Temperature 98 F 97.8 F Temperature Source Temporal Temporal Pulse Rate 81 57 L Respiratory Rate 16 18 Respiratory Effort Normal Respiratory Pattern Normal Blood Pressure 160/71 H Blood Pressure Mean 100 Pulse Ox 98 98 Oxygen Delivery Method Room Air Room Air 06/07/22 15:03 06/07/22 15:03 Temperature 97.8 F Temperature Source Temporal Pulse Rate 56 L Respiratory Rate 18 Respiratory Effort Respiratory Pattern Blood Pressure 162/76 H Blood Pressure Mean 104 Pulse Ox 98 Oxygen Delivery Method Room Air Room Air Weight Weight: 151 lb Body Mass Index (BMI) 24.3 Physical Exam Narrative Physical Examination: General: Awake, alert, oriented x 3 and cooperative, seated upright in the ED bed, does reports an ongoing mild headache although with discussions and turning on the light does not appear uncomfortable Skin: Normal color, normal turgor, no icterus, no cyanosis. HEENT: AT/NC, EOMI, PERRLA, mildly dry MM, no carotid bruits or JVD noted. Lungs: Mildly diminished, greater bases, appropriate effort, no rales, ronchi or wheezing. Heart: Mildly bradycardic with regular rhythm; no gallop, rub audible. Abdomen: Soft, NTTP, ND, distant normal BS, no HSM. Extremities: No cyanosis, clubbing, or edema. Neurological: Patient awake, alert, oriented as noted, cognitive function intact; pupils equally reactive to light and accommodation, cranial nerves II-XII grossly normal, moving all 4 extremities, no focal deficits, strength preserved, sensation intact, [id number] and [id number] appropriate, equivocal Babinski, no specific neurological deficits visual. Psychiatric: Affect appears mildly flat, no acute evidence of depressive or anxiety feelings. Results Lab / Micro Data Result Diagrams: 06/07/22 13:50 06/07/22 13:50 Labs: Laboratory Results - last 24 hr 06/07/22 13:50: WBC 3.0 L, RBC 4.69, Hgb 13.8, Hct 43.4, MCV 92.5, MCH 29.4, MCHC 31.8 L, RDW Std Deviation 42.0, RDW Coeff of Keo 12.4, Plt Count 188, MPV 9.1, Immature Gran % (Auto) 0.300, Neut % (Auto) 47.8, Lymph % (Auto) 40.4, [place] % (Auto) 7.9, Eos % (Auto) 2.6, Baso % (Auto) 1.0, Absolute Neuts (auto) 1.4 L, Absolute Lymphs (auto) 1.22, Nucleated RBC % 0 06/07/22 13:50: PT 12.8, INR 1.0, APTT 28.7 06/07/22 13:50: Sodium 141, Potassium 4.0, Chloride 106, Carbon Dioxide 30.0, Anion Gap 5, BUN 21 H, Creatinine 0.88, Estim Creat Clear Calc 60.46, Est GFR (MDRD) Af Amer 83, Est GFR (MDRD) Non-Af 68, BUN/Creatinine Ratio 23.8 H, Glucose 89, Calcium 8.7 06/07/22 13:50: Troponin I High Sens [address] 06/07/22 15:15 IMPRESSION: No acute intracranial findings. Electronically Signed: Akhil Castanon MD at 15:59 EST , Chest X-Ray 06/07/22 15:30 IMPRESSION: No radiographic evidence of acute cardiopulmonary disease. Electronically Signed: Akhil Castanon MD at 16:01 EST , Assessment & Plan Assessment/Plan (1) TIA (transient ischemic attack): PLAN: Plan The patient is a 66 y/o F w/ PMHx: Hypothyroidism, CAD, COPD w/ bronchiectasis, Anxiety and Depression, GERD, Hx CVA with R sided hemiplegia, RLS, Former tobacco use who presents to the [facility] ED on 06/07/22 with history of onset of dizziness as well as a mild generalized headache starting approximately 1 PM during regular evaluation at her PCP office reporting that she had been in the parking lot and felt as though her gait was significantly altered, staggering with recent diagnosis with vertigo over the last couple weeks but no recent medications prescribed for this but she has since improved and does report initially she had worsened right-sided symptoms as well as dizziness and transient altered speech but this is since resolved however today she had recurrent significant debility prompting eventual ED evaluation. #1. Transient Right sided weakness/hemiplegia, vertigo, gait imbalance concerning for possible Acute TIA versus Complex migraines versus Conversions disorder: Given CT findings with no acute changes or subacute with nearly a 2-week history lower suspicion for stroke however very atypical for vertiginous symptoms and again extensive evaluation of records per ED physician with several evaluations similar to this with unremarkable MRI brain with no previous evidence of any stroke therefore some concern per neurologist about possible conversion disorder versus complex migraines. Will admit to PCU to be cautious, will obtain MRI Brain, given appropriate renal function will obtain CTA head and neck, ECHO, PT/OT/Speech/Nutrition evaluation per protocol. Will allow permissive HTN with 3 addition of patient's medications once, maintain on asa/plavix, statin w/ AM FLP, fall precautions. Magnesium, TSH, FLP, hemoglobin A1c requested. Once further evaluations and work-up is obtained especially if MRI negative but ongoing symptoms would at that point involve neurology for consideration conversion versus complex migraine with regimen alteration at that time. #2. Chest Pain, chronic, atypical: EKG in ED cardio with no acute evidence of ischemia, CXR w/ no acute cardiopulmonary findings, initial trop 5. Will place on a monitored bed to assure no acute myocardial infarction with serial cardiac enzymes and EKGs. 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 Magnesium level pending. FLP in AM. ASA. #3. Nonobstructive CAD: We will continue patient aspirin, Plavix, statin, temporally holding hypertensive regimen given acute presentation number 1, add back once appropriate. #4. Hypertension: Given acutely worsened symptoms will maintain on permissive hypertension pending further work-up #1, as needed agents per stroke protocol. #5. Hyperlipidemia: Continue home statin regimen. AM FLP. #6. Anxiety and depression: We will continue patient on citalopram regimen. #7. Chronic COPD: We will temporarily hold home inhalers and maintain on ATC DuoNeb therapy in interim, PRN albuterol, HOB, IS parameters. #8. Former tobacco usage: Encourage continued tobacco cessation. #9. Hypothyroidism: Continue home synthroid regimen, TSH pending. #10. GERD: Not on regimen per current list, will have as needed Mylanta. #11. DVT prophylaxis: SCDs, Lovenox. Admission Evaluation Time spent evaluating chart, patient history, patient evaluation, care planning and notable review of patient records in [employer] and [employer] system: 75 minutes. Charges/Coding Visit Charges Inpatient E&M: 69262 Init Hosp L3
--- NOTE | 2022-06-07 17:18 | CT_ITS ---
We are attempting to reach an attending provider to discuss findings. An addendum with communication details will be sent when the communication is complete. STUDY: CTA HEAD AND NECK WITH CONTRAST REASON FOR EXAM: Female, 66 years old. TIA. RADIATION DOSAGE (If Supplied By Facility): CTDIvol = ( 18.88 ) mGy, DLP = ( 646.04 ) mGycm TECHNIQUE: CT angiography was performed with a multi-detector CT scanner. Data acquisition was obtained from the skull base through the vertex following intravenous administration of IV 100mL Isovue-370. MIP images were reconstructed from the axial data set. Post-processing of the angiographic images was performed, with multiplanar reformation and 3D reconstruction. Individualized dose optimization techniques were used for this CT. COMPARISON: CTA of the neck, August 14, 2012 FINDINGS: Normal bilateral petrous carotid arteries. Normal right cavernous carotid artery with a normal supraclinoid bifurcation. Normal left cavernous carotid artery with a normal supraclinoid bifurcation. Normal right A1 segments of the anterior cerebral artery. Normal left A1 segments of the anterior cerebral artery. There is non-visualization of the anterior communicating artery (ACOM). Normal bilateral A2 segments of the anterior cerebral arteries. Normal right M1 and M2 segments of the middle cerebral arteries, with a normal M1 bifurcation. Normal left M1 and M2 segments of the middle cerebral arteries, with a normal M1 bifurcation. Normal right posterior communicating artery (PCOM). Normal left posterior communicating artery (PCOM). Normal bilateral vertebral arteries. Normal basilar artery with a normal basilar bifurcation. The visualized bilateral superior cerebellar (SCA) arteries are normal. Normal bilateral P1, P2 and visualized P3 segments of the posterior cerebral arteries. There is no demonstrated aneurysm of the [place] of [place]. There is no demonstrated abnormality of the visualized brain. AORTIC ARCH: Normal visualized aortic arch. Normal origins of the brachiocephalic, left common carotid, and left subclavian arteries. RIGHT CAROTID ARTERIES: Normal right common carotid artery (CCA). Normal right common carotid bulb. Normal origin of the right internal carotid (ICA) artery without a hemodynamically significant stenosis. Normal visualized cervical portion of the right internal carotid artery. Normal origin of the right external carotid artery (ECA). LEFT CAROTID ARTERIES: Normal left common carotid artery (CCA). Normal left common carotid bulb. Normal origin of the left internal carotid (ICA) artery without a hemodynamically significant stenosis. Normal visualized cervical portion of the left internal carotid artery. Normal origin of the left external carotid artery (ECA). VERTEBRAL ARTERIES: Normal bilateral vertebral arteries. CT/STROKE CTA Head AND Neck W/Con IMPRESSION: Normal CTA Head and neck with contrast. Electronically Signed: Prakash Abraham DO at 18:28 EST ,
--- NOTE | 2022-06-07 17:40 | NURSING ---
PCU TIA [facility]
[2022-06-07 18:02] LABS: Magnesium 2.2 mg/dL (1.6-2.6)
--- NOTE | 2022-06-07 18:35 | MRI_ITS ---
STUDY: MRI BRAIN WITHOUT CONTRAST REASON FOR EXAM: Female, 66 years old. TIA TECHNIQUE: Multiplanar multisequence imaging of the brain was performed without the administration of intravenous contrast. COMPARISON: Brain MRI 12/10/2020, noncontrast head CT 06/07/2022 FINDINGS: The ventricles, cisterns, and sulci are within are prominent consistent with age-related volume loss. There is no restricted diffusion to suggest acute ischemia or infarction. No succeptibility artifict to suggest intracranial hemorrhage or mineralization. Major intracranial signal voids are preserved. There is stable, minimal high T2/FLAIR signal seen in the periventricular deep white matter. There is no midline shift, mass effect, or extra axial fluid collections are seen. No CP angle or IAC mass is seen. The orbits are unremarkable. The sella turcica and craniovertebral junction are within normal limits. The visualized paranasal sinuses are clear. The mastoid air cells are clear. MRI/Brain without Contrast IMPRESSION: Chronic, mild microvascular ischemic changes. No intracranial hemorrhage, acute infarct, or space occupying lesion seen on this noncontrast MRI of the brain. Electronically Signed: Akhil Castanon MD at 20:13 EST ,
--- NOTE | 2022-06-07 18:35 | ECHOD_ITS ---
Reason For Study: CVA Procedure This was a 2D Doppler, Color Flow transthoracic echocardiogram. The study was technically difficult. Exam performed portable in patient room. Left Ventricle Normal LV size. Apical false tendon noted. Left ventricular systolic function is normal. The estimated ejection fraction is 60 %. No evidence for diastolic dysfunction. No regional wall motion abnormalities noted. Right Ventricle Normal RV size. Normal systolic function. Atria Normal left atrium. Normal right atrium. No doppler evidence for ASD. Mitral Valve There is no mitral annular calcification. Normal mitral valve. Mild (1+) mitral valve insufficiency. Tricuspid Valve Normal tricuspid valve. Trivial tricuspid valve insufficiency. Right ventricular systolic pressure estimated to be 25 mmHg. Aortic Valve The aortic valve is not well visualized. Pulmonic Valve The pulmonic valve is not well visualized. Great Vessels Normal sized aortic root. Pericardium/Pleural No pericardial effusion. MMode/2D Measurements & Calculations LVIDd: 4.4 cm IVSd: 0.96 cm Ao root diam: 3.0 cm LVIDs: 3.2 cm LVPWd: 0.78 cm RVDd: 3.3 cm FS: 27.3 % LAV(MOD-bp): 29.9 ml LVAd ap4: 25.4 cm2 LVAd ap2: 22.0 cm2 LAV(MOD-bp) Indexed: 16.8 ml/m2 LVLd ap4: 7.2 cm LVLd ap2: 7.8 cm LAV(MOD-sp2): 31.4 ml EDV(MOD-sp4): 74.6 ml EDV(MOD-sp2): 53.2 ml LAV(MOD-sp4): 28.0 ml EDV(sp4-el): 75.8 ml EDV(sp2-el): 52.4 ml LVAs ap4: 13.3 cm2 LVAs ap2: 11.6 cm2 LVLs ap4: 6.0 cm LVLs ap2: 5.9 cm ESV(MOD-sp4): 25.7 ml ESV(MOD-sp2): 19.8 ml ESV(sp4-el): 25.1 ml ESV(sp2-el): 19.4 ml EF(MOD-sp4): 65.6 % EF(MOD-sp2): 62.9 % EF(sp4-el): 66.9 % SV(MOD-sp4): 48.9 ml SV(MOD-sp2): 33.5 ml SV(sp4-el): 50.7 ml LA dimension(2D): 2.9 cm LA A4 area: 12.8 cm2 RA A4 area: 14.4 cm2 Time Measurements MV dec time: 0.25 sec Doppler Measurements & Calculations MV E max robi: 66.9 cm/sec Lat Peak E' Robi: 11.1 cm/sec Med Peak E' Robi: 9.9 cm/sec MV A max robi: 87.2 cm/sec E/E' lat: 6.0 E/E' med: 6.7 MV E/A: 0.77 MV dec slope: 270.5 cm/sec2 Ao V2 max: 119.3 cm/sec LV V1 max: 86.7 cm/sec Ao max P.7 mmHg LV V1 max P.0 mmHg Ao V2 mean: 85.3 cm/sec LV V1 mean P.7 mmHg Ao mean P.1 mmHg LV V1 mean: 63.0 cm/sec Ao V2 VTI: 25.5 cm LV V1 VTI: 20.3 cm AV (velocity ratio): 0.80 PA V2 max: 103.6 cm/sec TR max robi: 236.0 cm/sec TR max P.3 mmHg ECHO/Echo Complete Interpretation Summary The study was technically difficult. Left ventricular systolic function is normal. The estimated ejection fraction is 60 %. Mild (1+) mitral valve insufficiency. Trivial tricuspid valve insufficiency. Right ventricular systolic pressure estimated to be 25 mmHg. No evidence for diastolic dysfunction. Comment: Previous transthoracic echocardiogram from 03-11-2013: Bubble contrast study negative for right to left interatrial shunt. Ordering Physician: Rupal Gannon Referring Physician: [facility] Performed By: Yulissa Lizarraga, KEENA, RVT
[2022-06-07 19:29] LABS: Troponin-I HS 6 pg/mL (3.0-54.0)
[2022-06-07 20:56] LABS: Troponin-I HS 6 pg/mL (3.0-54.0)
[2022-06-07] MEDS: Atorvastatin Calcium 10 MG Tablet PO (20:58)
--- NOTE | 2022-06-07 21:24 | EKG12_ITS ---
Test Reason : CP ADMIT Blood Pressure : / mmHG Vent. Rate : 054 BPM Atrial Rate : 054 BPM P-R Int : 182 ms QRS Dur : 074 ms QT Int : 432 ms P-R-T Axes : 071 027 040 degrees QTc Int : 409 ms Sinus bradycardia Otherwise normal ECG When compared with ECG of 07-JUN-2022 16:05, Criteria for Septal infarct are no longer Present Confirmed by SHAGUFTA SHERMAN, LESTER ([id number]), restaurant expeditor ASHLEY TORRES ([id number]) on 06/16/2022 1:58:38 PM Referred By: Confirmed By:MARCK EAGLE MD
[2022-06-08 05:12] VITALS: BP 122/59; PULSE 56; RESP 17; TEMP 36.7; O2SAT 93
[2022-06-08] MEDS: Levothyroxine 50 MCG Tablet PO (05:15)
[2022-06-08 07:15] LABS: Absolute Lymphocyte Count 1.16 X10^3/uL (0.83-4.51); Absolute Neutrophil Count 1.4 X10^3/uL (2.0-7.7); Basophil# 0.03 X10^3/uL; Eosinophils% 3.4 % (0-5); Hematocrit 39.8 % (37-47); Hemoglobin 13.1 g/dL (12.0-15.0); Lymphocyte # 1.16 X10^3/ul (0.83-4.51); Lymphocyte % 39.1 % (19-41); Mean Corp Hgb Conc 32.9 g/dL (32-36); Mean Corpuscular Hgb 29.8 pg (27.0-32.0); Mean Corpuscular Volume 90.5 fL (81-99); Mean Platelet Vol. 8.9 fl (6.2-12.0); Monocyte# 0.26 X10^3/uL; Monocyte% 8.8 % (0-10); NRBC Flagged by Analyzer 0 % (0-5); Neutrophil # 1.42 X10^3/uL (2.7-7.7); Neutrophil % 47.7 % (47-70); Platelet Count 178 K/mm3 (150-450); RBC Distribution Width CV 12.4 % (11.6-14.6)
[2022-06-08 07:33] VITALS: O2SAT 98
[2022-06-08 07:43] LABS: Hemoglobin A1c 5.5 % (3.8-5.6)
[2022-06-08 07:46] LABS: AST(SGOT) 48 U/L (15-37); Alanine Aminotransfer ALT/SGPT 70 U/L (13-56); Albumin, Serum 3.2 g/dL (3.2-5.0); Alkaline Phosphatase 56 U/L (45-117); Anion Gap 4 (5-15); BUN 15 mg/dL (7-18); BUN/Creat Ratio 18.5 RATIO (10-20); Calcium,Total 8.4 mg/dL (8.5-10.1); Chloride 110 mmol/L (98-107); Cholesterol 137 mg/dL (200); Creatinine, Serum 0.81 mg/dL (0.55-1.02); EST Glomerular Filtration Rate 75 mL/min (>60); Est Glom Filt Rate - Afr Amer 91 mL/min (>60); Estimated Creatinine Clearance 65.69 ml/min; Globulin 3.2 g/dL (2.2-4.2); Glucose 126 mg/dL (74-106); High Density Lipoprotein 61 mg/dL; Potassium 3.6 mmol/L (3.5-5.1); Protein, Total 6.4 g/dL (6.4-8.2); Sodium Level 140 mmol/L (136-145); Thyroid Stim Hormone (TSH) 0.77 uIU/mL (0.358-3.74); Triglycerides 128 mg/dL; Very Low Density Lipoprotein 26 mg/dL (5-40)
[2022-06-08 09:03] VITALS: BP 132/65; PULSE 62; RESP 16; TEMP 36.6; O2SAT 94
[2022-06-08] MEDS: Aspirin E.C. 81 MG Tablet PO (09:17)
[2022-06-08] MEDS: Enoxaparin 40 MG/0.4 ML Syringe SC (09:17)
[2022-06-08] MEDS: Loratadine 10 MG Tablet PO (09:17)
[2022-06-08] MEDS: Acetaminophen 325 MG Tablet 650 MG PO (09:17)
[2022-06-08] MEDS: Clopidogrel Bisulfate 75 MG Tablet PO (09:17)
[2022-06-08] MEDS: Citalopram 10 MG Tablet PO (09:17)
--- NOTE | 2022-06-08 13:13 | DCINST_ITS ---
Discharge Instructions Diet Discharge Diet: - (Cardiac diet) Activity Discharge Activity: Return to Normal Activity Follow Up Care Test Results: Test results from this visit will be discussed in further detail at your follow- up appointment, if applicable. Discharge Plan Admission Admit Date/Time: 06/07/22 17:13 Primary Reason for Your Visit: Dizziness, R sided weakness Attending Provider: Lashawn Ellington Primary Care Provider: Danae Barnett Consulting Providers: Rupal Gannon Instructions Patient Instructions: TIA Dc Additional Instructions / Restrictions: *Please take this with you to your next doctors appointment* DISCHARGE INSTRUCTIONS PLEASE READ ?You will need a prolonged heart monitor on discharge, a 30-day monitor will be coordinated for you however you will need to follow-up with your primary care physician as this may need extended further. We will also place information for cardiology follow-up, please call to make an appointment ?He will need to follow-up with neurology on discharge, contact information provided, please call upon discharge to schedule a hospital follow-up appointment ? You were diagnosed with a mini stroke during this visit, neurology evaluated you and recommended aspirin and Plavix for 3 weeks followed by Plavix alone unless otherwise indicated. You will be sent with prescriptions, please contact your primary care physician for further instructions and timing of medication changes. ?You will be discharged on a higher dose of atorvastatin, 40 mg, this will replace your 10 mg prescription. Please take this daily ?You were liver enzymes were very minimally elevated, this does not require further inpatient work-up, advise he discuss with your primary care physician to obtain repeat lab work and any further work-up if indicated -Please call your primary care provider's office upon discharge to schedule a hospital follow up within 1 week. -For any concerning signs or symptoms please call 911 or proceed to the nearest emergency department Discharge Orders/Prescriptions Prescriptions: New aspirin 81 mg Tablet,Delayed Release (Dr/Ec) 81 mg PO BREAKFAST 21 Days Qty: 21 0RF Continued cholecalciferol (vitamin D3) 5,000 unit capsule 5,000 unit PO DAILY levocetirizine [Allergy Relief (levocetirizin)] 5 mg tablet 5 mg PO DAILY citalopram 10 mg tablet 10 mg PO DAILY levothyroxine 50 mcg tablet 50 mcg PO DAILY lisinopril 10 MG tablet 10 mg PO DAILY Stiolto Respimat 2.5-2.5 mcg/actuation mist 2 inh inhalation DAILY clopidogrel 75 MG tablet 75 mg PO DAILY 30 Days Qty: 30 0RF Changed atorvastatin 10 mg tablet 40 mg PO QHS 30 Days Qty: 120 0RF Discontinued acetaminophen 500 MG tablet 500 mg PO Q6H PRN (Reason: Pain) Other Ambulatory Orders: 30 Day Event Recorder Preventi (Urgent) Timeframe: 1 Day Facility: [facility] - Location: Cardiovascular Services Ordered By: Dr. Lashawn Ellington Referrals / Follow Up: Cole Bran MD [Med Staff - Active Staff] - None Hussein Morales MD [Non-Staff -Ordering Privileges] - See Referral Note (Please call upon discharge to schedule hospital follow-up appointment) [facility] [Primary Care Provider] - Within 1 Week Disposition Disposition (needs filled in before D/C Order can be placed): Home, Self Care
--- NOTE | 2022-06-08 13:26 | PCM.DC.SUM ---
Providers Date of Admission: 06/07/22 Date of Discharge: 06/08/22 Primary Care Physician: [facility] Reason For Visit: TIA Diagnosis Discharge Diagnosis (1) TIA (transient ischemic attack): Status: Acute Code(s): G45.9 - Transient cerebral ischemic attack, unspecified Plan #TIA #Hypothyroidism #Coronary artery disease #COPD Medications at Discharge Home Medications cholecalciferol (vitamin D3) 125 mcg (5,000 unit) capsule 5,000 unit PO DAILY SUPPLEMENT 08/14/18 levocetirizine 5 mg tablet (Allergy Relief (levocetirizine)) 5 mg PO DAILY ALLERGIES 10/31/19 lisinopril 10 mg tablet 10 mg PO DAILY BLOOD PRESSURE 03/21/20 citalopram 10 mg tablet 10 mg PO DAILY DEPRESSION 08/17/21 levothyroxine 50 mcg tablet 50 mcg PO DAILY THYROID 08/17/21 tiotropium 2.5 mcg-olodaterol 2.5 mcg/actuation mist for inhalation (Stiolto Respimat) 2 inh inhalation DAILY COPD 06/07/22 aspirin 81 mg tablet,delayed release 81 mg PO BREAKFAST 21 days #21 tabs 06/08/22 atorvastatin 10 mg tablet 40 mg PO QHS CHOLESTEROL 30 days #120 tabs 06/08/22 clopidogrel 75 mg tablet 75 mg PO DAILY BLOOD THINNER 30 days #30 tabs 06/08/22 Hospital Course Procedures - (MRI, CTA, echocardiogram) Summary of Care Provided Minutes Spent on Discharge: 25 Hospital Course: 66-year-old female with a history of hypothyroidism, CAD, COPD, anxiety and depression, GERD, history of CVA with right-sided hemiplegia is, RLS who presented to [facility] 06/07/2022 with onset of dizziness and mild generalized headache that started around 1 PM during regular evaluation at her PCPs office. She reported that she had been in the parking lot felt as though her gait was unsteady and altered. She did have recent diagnosis of vertigo over the past several weeks but this has improved and the symptoms were different. CT findings with no acute stroke, CTA unremarkable, echo with bubble study negative, MRI no acute stroke. Symptoms improved rapidly and completely. Neurology evaluated and recommended dual antiplatelet for 3 weeks then Plavix alone, extended heart rate monitor, neurology follow-up. On the day of discharge patient denies any acute complaints. Discharge instructions as followed: ?You will need a prolonged heart monitor on discharge, a 30-day monitor will be coordinated for you however you will need to follow-up with your primary care physician as this may need extended further.? We will also place information for cardiology follow-up, please call to make an appointment ?He will need to follow-up with neurology on discharge, contact information provided, please call upon discharge to schedule a hospital follow-up appointment ? You were diagnosed with a mini stroke during this visit, neurology evaluated you and recommended aspirin and Plavix for 3 weeks followed by Plavix alone unless otherwise indicated.? You will be sent with prescriptions, please contact your primary care physician for further instructions and timing of medication changes. ?You will be discharged on a higher dose of atorvastatin, 40 mg, this will replace your 10 mg prescription.? Please take this daily ?You were liver enzymes were very minimally elevated, this does not require further inpatient work-up, advise he discuss with your primary care physician to obtain repeat lab work and any further work-up if indicated -Please call your primary care provider's office upon discharge to schedule a hospital follow up within 1 week. -For any concerning signs or symptoms please call 911 or proceed to the nearest emergency department Physical Exam Const alert and no apparent distress Constitutional Narrative: Oriented HEENT normocephalic and head/scalp atraumatic Eyes Eyes Narrative: EOM grossly intact, anicteric Neck supple Resp normal respiratory effort Cardio regular rate and regular rhythm GI non-distended Extremity Extremity Narrative: No edema appreciated Neuro moves all extremities Neuro Narrative: No overt focal deficits appreciated Psych Psych Narrative: Cooperative Weight / BMI Weight Weight: 69.2 kg Body Mass Index (BMI) 24.5 ABG / Lab / Microbiology Data Result Diagrams: 06/08/22 06:37 06/08/22 06:37 Laboratory: Laboratory Results - last 24 hr 06/07/22 13:50: WBC 3.0 L, RBC 4.69, Hgb 13.8, Hct 43.4, MCV 92.5, MCH 29.4, MCHC 31.8 L, RDW Std Deviation 42.0, RDW Coeff of Keo 12.4, Plt Count 188, MPV 9.1, Immature Gran % (Auto) 0.300, Neut % (Auto) 47.8, Lymph % (Auto) 40.4, [place] % (Auto) 7.9, Eos % (Auto) 2.6, Baso % (Auto) 1.0, Absolute Neuts (auto) 1.4 L, Absolute Lymphs (auto) 1.22, Nucleated RBC % 0 06/07/22 13:50: PT 12.8, INR 1.0, APTT 28.7 06/07/22 13:50: Sodium 141, Potassium 4.0, Chloride 106, Carbon Dioxide 30.0, Anion Gap 5, BUN 21 H, Creatinine 0.88, Estim Creat Clear Calc 60.46, Est GFR (MDRD) Af Amer 83, Est GFR (MDRD) Non-Af 68, BUN/Creatinine Ratio 23.8 H, Glucose 89, Calcium 8.7 06/07/22 13:50: Troponin I High Sens 5 06/07/22 17:39: Magnesium 2.2 06/07/22 17:39: Troponin I High Sens 6 06/07/22 20:19: Troponin I High Sens 6 06/08/22 06:37: WBC 3.0 L, RBC 4.40, Hgb 13.1, Hct 39.8, MCV 90.5, MCH 29.8, MCHC 32.9, RDW Std Deviation 41.0, RDW Coeff of Keo 12.4, Plt Count 178, MPV 8.9, Immature Gran % (Auto) 0.000, Neut % (Auto) 47.7, Lymph % (Auto) 39.1, [place] % (Auto) 8.8, Eos % (Auto) 3.4, Baso % (Auto) 1.0, Absolute Neuts (auto) 1.4 L, Absolute Lymphs (auto) 1.16, Nucleated RBC % 0 06/08/22 06:37: Sodium 140, Potassium 3.6, Chloride 110 H, Carbon Dioxide 26.0, Anion Gap 4 L, BUN 15, Creatinine 0.81, Estim Creat Clear Calc 65.69, Est GFR (MDRD) Af Amer 91, Est GFR (MDRD) Non-Af 75, BUN/Creatinine Ratio 18.5, Glucose 126 H, Calcium 8.4 L, Total Bilirubin 0.40, AST 48 H, ALT 70 H, Alkaline Phosphatase 56, Total Protein 6.4, Albumin 3.2, Globulin 3.2, Albumin/Globulin Ratio 1.0, Triglycerides 128, Cholesterol 137, LDL Cholesterol 50, VLDL Cholesterol 26, HDL Cholesterol 61, TSH 0.77 06/08/22 06:37: Hemoglobin A1c 5.5 Radiography Diagnostic Testing: Radiology Impression Brain CT 06/07/22 15:15 IMPRESSION: No acute intracranial findings. Electronically Signed: Akhil Castanon MD at 15:59 EST , Chest X-Ray 06/07/22 15:30 IMPRESSION: No radiographic evidence of acute cardiopulmonary disease. Electronically Signed: Akhil Castanon MD at 16:01 EST , Head/Neck CTA 06/07/22 17:18 IMPRESSION: Normal CTA Head and neck with contrast. Electronically Signed: Prakash Abraham DO at 18:28 EST Reading [facility] Tel [phone], Service support , ADDENDUM: 06/07/22 1840 IMPRESSION: Normal CTA Head and neck with contrast. N.B. : The above Results were Read Back by Prakash Abraham DO to Jesse Khalil RN, RN, and understanding confirmed on 06/07/2022 18:34:00 (ET). Electronically Signed: Prakash Abraham DO at 18:28 EST Reading [facility] and [facility] Tel [phone], Service support , Brain MRI 06/07/22 18:35 IMPRESSION: Chronic, mild microvascular ischemic changes. No intracranial hemorrhage, acute infarct, or space occupying lesion seen on this noncontrast MRI of the brain. Electronically Signed: Akhil Castanon MD at 20:13 EST , Echocardiogram 06/07/22 18:35 Interpretation Summary The study was technically difficult. Left ventricular systolic function is normal. The estimated ejection fraction is 60 %. Mild (1+) mitral valve insufficiency. Trivial tricuspid valve insufficiency. Right ventricular systolic pressure estimated to be 25 mmHg. No evidence for diastolic dysfunction. Comment: Previous transthoracic echocardiogram from 03-11-2013: Bubble contrast study negative for right to left interatrial shunt. Ordering Physician: Rupal Gannon Referring Physician: [facility] Performed By: Yulissa Lizarraga, KEENA, RVT D/C Instructions Discharge Diet: - (Cardiac diet) Meaningful Use Info Meaningful Use Diagnoses (Choose all that apply): None applicable Discharge Plan Admission Admit Date/Time: 06/07/22 17:13 Primary Reason for Your Visit: Dizziness, R sided weakness Attending Provider: Lashawn Ellington Primary Care Provider: [facility] Consulting Providers: Rupal Gannon Instructions Patient Instructions: TIA Dc Additional Instructions / Restrictions: *Please take this with you to your next doctors appointment* DISCHARGE INSTRUCTIONS PLEASE READ ?You will need a prolonged heart monitor on discharge, a 30-day monitor will be coordinated for you however you will need to follow-up with your primary care physician as this may need extended further. We will also place information for cardiology follow-up, please call to make an appointment ?He will need to follow-up with neurology on discharge, contact information provided, please call upon discharge to schedule a hospital follow-up appointment ? You were diagnosed with a mini stroke during this visit, neurology evaluated you and recommended aspirin and Plavix for 3 weeks followed by Plavix alone unless otherwise indicated. You will be sent with prescriptions, please contact your primary care physician for further instructions and timing of medication changes. ?You will be discharged on a higher dose of atorvastatin, 40 mg, this will replace your 10 mg prescription. Please take this daily ?You were liver enzymes were very minimally elevated, this does not require further inpatient work-up, advise he discuss with your primary care physician to obtain repeat lab work and any further work-up if indicated -Please call your primary care provider's office upon discharge to schedule a hospital follow up within 1 week. -For any concerning signs or symptoms please call 911 or proceed to the nearest emergency department Discharge Orders/Prescriptions Prescriptions: New aspirin 81 mg Tablet,Delayed Release (Dr/Ec) 81 mg PO BREAKFAST 21 Days Qty: 21 0RF Continued cholecalciferol (vitamin D3) 5,000 unit capsule 5,000 unit PO DAILY levocetirizine [Allergy Relief (levocetirizin)] 5 mg tablet 5 mg PO DAILY citalopram 10 mg tablet 10 mg PO DAILY levothyroxine 50 mcg tablet 50 mcg PO DAILY lisinopril 10 MG tablet 10 mg PO DAILY Stiolto Respimat 2.5-2.5 mcg/actuation mist 2 inh inhalation DAILY clopidogrel 75 MG tablet 75 mg PO DAILY 30 Days Qty: 30 0RF Changed atorvastatin 10 mg tablet 40 mg PO QHS 30 Days Qty: 120 0RF Discontinued acetaminophen 500 MG tablet 500 mg PO Q6H PRN (Reason: Pain) Other Ambulatory Orders: 30 Day Event Recorder Preventi (Urgent) Timeframe: 1 Day Facility: [facility] - Location: Cardiovascular Services Ordered By: Dr. Lashawn Ellington Referrals / Follow Up: Cole Bran MD [Med Staff - Active Staff] - None Hussein Morales MD [Non-Staff -Ordering Privileges] - See Referral Note (Please call upon discharge to schedule hospital follow-up appointment) [facility],Danae Patel [Primary Care Provider] - Within 1 Week Disposition Disposition (needs filled in before D/C Order can be placed): Home, Self Care Charges/Coding Visit Charges Inpatient E&M: 09530 Disch Hosp
[2022-06-08 14:09] VITALS: BP 144/69; PULSE 71; RESP 18; TEMP 36.6; O2SAT 94
--- NOTE | 2022-06-08 14:37 | CASEMGMT ---
Patient has order for discharge, RN CM back to inquire about needs at discharge. Patient denies needs at this time. Patient instructed to follow-up with PCP with any needs or concerns after discharge.
--- NOTE | 2022-06-08 14:48 | NURSING ---
Reviewed student nurse documentation
--- NOTE | 2022-06-08 15:19 | PHA.DC.MC ---
Pharmacy Service has performed discharge medication reconciliation and counseling for this patient. 1. ASPIRIN 81MG PO BREAKFAST X 3 WEEKS The patient's discharge medication list was reviewed for discrepancies and discrepancies were resolved. Home Medications cholecalciferol (vitamin D3) 125 mcg (5,000 unit) capsule 5,000 unit PO DAILY SUPPLEMENT 08/14/18 levocetirizine 5 mg tablet (Allergy Relief (levocetirizine)) 5 mg PO DAILY ALLERGIES 10/31/19 lisinopril 10 mg tablet 10 mg PO DAILY BLOOD PRESSURE 03/21/20 citalopram 10 mg tablet 10 mg PO DAILY DEPRESSION 08/17/21 levothyroxine 50 mcg tablet 50 mcg PO DAILY THYROID 08/17/21 tiotropium 2.5 mcg-olodaterol 2.5 mcg/actuation mist for inhalation (Stiolto Respimat) 2 inh inhalation DAILY COPD 06/07/22 aspirin 81 mg tablet,delayed release 81 mg PO BREAKFAST 21 days #21 tabs 06/08/22 atorvastatin 10 mg tablet 40 mg PO QHS CHOLESTEROL 30 days #120 tabs 06/08/22 clopidogrel 75 mg tablet 75 mg PO DAILY BLOOD THINNER 30 days #30 tabs 06/08/22 The patient was counseled on the following discharge medications and changes in medications for homegoing were reviewed. The Reason for Use, instructions for use, and potential side effects were reviewed for all new medications. The patient's questions regarding all of their medications were answered. The patient was able to verbally demonstrate an understanding of their discharge medications.
== END 2022-06-08 14:21 | disposition home or self-care (01) ==
LOC: ED 15:14 → PCU 17:37
PROVIDERS: Admitting Provider Family Medicine; Emergency Provider Student in an Organized Health Care Education/Training Program; Visit Provider Internal Medicine
DX: G45.9 Transient cerebral ischemic attack, unspecified (principal); I69.351 Hemiplegia and hemiparesis following cerebral infarction affecting right dominant side; J44.9 Chronic obstructive pulmonary disease, unspecified; R47.81 Slurred speech; Z79.02 Long term (current) use of antithrombotics/antiplatelets; F32.A Depression, unspecified; I25.10 Atherosclerotic heart disease of native coronary artery without angina pectoris; Z87.891 Personal history of nicotine dependence; R07.89 Other chest pain; I10 Essential (primary) hypertension; K21.9 Gastro-esophageal reflux disease without esophagitis; E78.00 Pure hypercholesterolemia, unspecified; F41.9 Anxiety disorder, unspecified; G89.29 Other chronic pain; E03.9 Hypothyroidism, unspecified; Z79.899 Other long term (current) drug therapy; Z79.890 Hormone replacement therapy; R53.1 Weakness; I25.2 Old myocardial infarction; R29.700 NIHSS score 0; R42 Dizziness and giddiness; R26.9 Unspecified abnormalities of gait and mobility
CPT/HCPCS: 36415; 70450; 70496; 70498; 70551; 71045; 80048; 80053; 80061; 83036; 83735; 84443; 84484; 85025; 85610; 85730; 93005; 93306; 94762; 96372; 99221; 99285; Q9967; G0378

== ENCOUNTER 2022-06-30 14:53 | Emergency (ER) | payer MEDICARE, MEDICAID, SELFPAY ==
[2022-06-30 14:55] VITALS: BP 175/77; PULSE 68; RESP 14; TEMP 36.6; O2SAT 95; BMI 23.6
[2022-06-30] MEDS: traMADol 50 MG Tablet PO (15:21)
--- NOTE | 2022-06-30 15:21 | EX.ED.UPPERE ---
HPI History of Present Illness Chief Complaint: Upper Extremity Injury Narrative Narrative: Patient presenting with right-sided neck pain, trapezius pain, pain rating down her right arm patient states this is not a new issue. She has been seen by [facility]. He did do x-rays and patient states are unremarkable. Patient is referred to get an MRI on the . Patient is out of her pain medication requesting more. She was taking Ultram with good relief. No new trauma. [facility] Medical History (Updated 06/30/22 @ 15:[address] Eduardo Ely, DO) Abdominal pain Abnormal Holter monitor finding Acute dysfunction of both eustachian tubes Acute seasonal allergic rhinitis Acute serous otitis media Ambulates with cane Anxiety Anxiety disorder Arthritis Atherosclerotic heart disease of [place] coronary artery without angina pectoris Bronchitis Bruising CAD (coronary artery disease) Chest pain Constipation COPD (chronic obstructive pulmonary disease) Depression Diaphragm paralysis Difficulty chewing Difficulty swallowing Easy bruising Essential hypertension Former smoker Fuchs' corneal dystrophy Gastric reflux High cholesterol History of cerebrovascular disease History of CVA (cerebrovascular accident) History of echocardiogram History of heart attack History of hiatal hernia History of IBS History of irregular heartbeat History of renal disease History of stress test HTN (hypertension) Hypothyroidism Hypoxia Mixed hyperlipidemia Restless legs Shortness of breath on exertion Sinus pause Skin tear Stroke/cerebrovascular accident Thigh pain Thyroid disease Traumatic avulsion of nail plate of toe Wears dentures Wears glasses Home Medications cholecalciferol (vitamin D3) 125 mcg (5,000 unit) capsule 5,000 unit PO DAILY SUPPLEMENT 08/14/18 [History Last Taken 06/07/22] levocetirizine 5 mg tablet (Allergy Relief (levocetirizine)) 5 mg PO DAILY ALLERGIES 10/31/19 [History Last Taken 06/07/22] lisinopril 10 mg tablet 10 mg PO DAILY BLOOD PRESSURE 03/21/20 [History Last Taken 06/07/22] citalopram 10 mg tablet 10 mg PO DAILY DEPRESSION 08/17/21 [History Last Taken 06/07/22] levothyroxine 50 mcg tablet 50 mcg PO DAILY THYROID 08/17/21 [History Last Taken 06/07/22] tiotropium 2.5 mcg-olodaterol 2.5 mcg/actuation mist for inhalation (Stiolto Respimat) 2 inh inhalation DAILY COPD 06/07/22 [History Last Taken 06/07/22] aspirin 81 mg tablet,delayed release 81 mg PO BREAKFAST 21 days #21 tabs 06/08/22 [Rx Last Taken Unknown] atorvastatin 10 mg tablet 40 mg PO QHS CHOLESTEROL 30 days #120 tabs 06/08/22 [Rx Last Taken Unknown] clopidogrel 75 mg tablet 75 mg PO DAILY BLOOD THINNER 30 days #30 tabs 06/08/22 [Rx Last Taken Unknown] tramadol 50 mg tablet 50 mg PO Q8H PRN pain #12 tabs 06/30/22 [Rx Last Taken Unknown] Allergy/AdvReac Type Severity Reaction Status Date / Time hydrocodone bitartrate Allergy HALLUCINATE Verified 06/30/22 14:55 [From Vicodin] S vancomycin Allergy Rash Verified 06/30/22 14:55 fish derived AdvReac Anaphylaxis Verified 06/30/22 14:55 morphine AdvReac HALLUCINATE Verified 06/30/22 14:55 S Family History Mother Diabetes Heart disease Hypertension High cholesterol Father Heart disease Hypertension High cholesterol CVA (cerebral vascular accident) Surgical History History of bilateral cataract extraction History of shoulder surgery History of tubal ligation Social History household members: significant other housing: apartment pets and animals: Yes pets and animals: dog(s) Smoking Status: Former smoker quit date: 10/28/19 pack-years: 25 Tobacco: How many years used: 25 second hand exposure: Yes alcohol intake: never substance use type: does not use ROS ROS ED Constitutional Constitutional ED: Denies chills, fever(s) or sweats Eyes Eyes: Denies blurry vision or change in vision ENT ENT ED: Denies ear pain or sore throat Cardiovascular Cardiovascular: Denies chest pain, palpitations or racing heartbeat Respiratory/Chest Respiratory/Chest: Denies cough, dyspnea or sputum Gastrointestinal Gastrointestinal: Denies abdominal pain, constipation, diarrhea, nausea or vomiting Genitourinary Genitourinary ED: Denies dysuria, hematuria or urinary frequency Musculoskeletal Musculoskeletal: Reports neck pain and other Details: Right shoulder pain ; Denies myalgias Integumentary Denies abscess, Abrasions or rash Neurologic Neurologic: Denies headache(s), paresthesias or weakness Psychiatric Psychiatric: Denies anxiety, depression, suicidal ideation or suicidal thoughts Endocrine Endocrinology: Denies polydipsia or polyuria EXAM Physical Exam Const Vital Signs: 06/30/22 14:55 Temperature 98 F Temperature Source Temporal Pulse Rate 68 Respiratory Rate 14 Blood Pressure 175/77 H Blood Pressure Mean 109 Pulse Ox 95 Oxygen Delivery Method Room Air Positive well nourished HEENT Reports moist mucous membranes normocephalic and atraumatic Eyes PERRL and EOMs intact bilaterally Neck full ROM and supple Resp normal respiratory effort Cardio regular rate and regular rhythm Back/Spine Back/Spine Narrative: Right-sided cervical paraspinal muscular tenderness. Presented to the trapezius. Right shoulder has full range of motion. No rashes. No bruising. Neuro oriented x3 and CN's II-XII intact bilaterally MDM MDM MDM Narrative Medical decision making narrative: Patient with right-sided neck pain and shoulder pain. She states already had images. She is referred for an MRI for a pinched nerve. Physical exam and history are consistent with this. Patient will be given a refill on her Ultram. She is referred to Ortho spine. Patient stable for discharge at this time. Impression: 1 cervical radiculopathy Lab Data Attestation: I reviewed the patient's lab results. Discharge Plan Triage Chief Complaint: Upper Extremity Injury ED Provider: Eduardo Ely Dx/Rx/DC Orders Instructions: ED Radiculopathy, Cervical Prescriptions: New tramadol 50 mg tablet 50 mg PO Q8H PRN (Reason: pain) Qty: 12 0RF No Action cholecalciferol (vitamin D3) 5,000 unit capsule 5,000 unit PO DAILY levocetirizine [Allergy Relief (levocetirizin)] 5 mg tablet 5 mg PO DAILY citalopram 10 mg tablet 10 mg PO DAILY levothyroxine 50 mcg tablet 50 mcg PO DAILY lisinopril 10 MG tablet 10 mg PO DAILY Stiolto Respimat 2.5-2.5 mcg/actuation mist 2 inh inhalation DAILY aspirin 81 mg Tablet,Delayed Release (Dr/Ec) 81 mg PO BREAKFAST 21 Days Qty: 21 0RF atorvastatin 10 mg tablet 40 mg PO QHS 30 Days Qty: 120 0RF clopidogrel 75 MG tablet 75 mg PO DAILY 30 Days Qty: 30 0RF [facility] Referrals: Jayden Burton DO [Med Staff - Active Staff] - 3-5 Days [facility] [Primary Care Provider] - Disposition Disposition: Home, Self Care
== END 2022-06-30 15:29 | disposition home or self-care (01) ==
PROVIDERS: Emergency Provider Student in an Organized Health Care Education/Training Program; Visit Provider Student in an Organized Health Care Education/Training Program
DX: M54.12 Radiculopathy, cervical region (principal); J44.9 Chronic obstructive pulmonary disease, unspecified; I25.10 Atherosclerotic heart disease of native coronary artery without angina pectoris; I25.2 Old myocardial infarction; E78.2 Mixed hyperlipidemia; I10 Essential (primary) hypertension; Z79.899 Other long term (current) drug therapy; Z86.73 Personal history of transient ischemic attack (TIA), and cerebral infarction without residual deficits; Z87.891 Personal history of nicotine dependence
CPT/HCPCS: 99283

== ENCOUNTER 2022-07-13 10:09 | Day surgery (SDC) | payer MEDICARE, MEDICAID, SELFPAY ==
[2022-07-05 08:06] VITALS: BMI 23.6
--- NOTE | 2022-07-13 12:47 | CL.D_ITS ---
Patient Name: AUBRIE ANDREWS Study Date: 07/13/2022 Performing: Ramesh Sanabria MD Ht: 67 inches 170.18 cm : 1955 Wt: 150.99 lbs 68.49 kg Age: 67 Gender: female BSA: 1.79 PROCEDURE(S) PERFORMED [id number])LHC/COR/LV CLINICAL PROFILE AND INDICATIONS Indications: Suspected CAD Heart Failure: None Stress/Imaging Stress/Image Study Performed: No CAD Presentations: Other: chest pain CONCLUSIONS Non obstructive coronary arteries Normal LV size, wall motion,and systolic function RECOMMENDATIONS Medical therapy DESCRIPTION OF PROCEDURE The patient arrived to the procedure lab. The risks and benefits of the procedure as well as a full description of our services here and current unavailability of surgical backup were fully explained to the patient and/or their significant other prior to the catheterization. The Timeout was completed, verifying the correct patient and procedure. The patient's procedural site was prepped and draped in the usual fashion. Local anesthetic was given subcutaneously to right radial region with Lidocaine 2%. Using a modified Seldinger technique, arterial access was obtained via the right radial artery, a 6Fr sheath was inserted. Right Coronary Artery selective angiography was performed in multiple views using a 5 Fr. 4.0 Gratis catheter. Left Coronary Artery selective angiography was performed in multiple views using a 5 Fr. 4.0 Gratis catheter. Left Ventriculography was performed in MATTHEWS projection using a 5 Fr. Pigtail catheter. LV to AO pullback pressures were then recorded.The arterial sheath was pulled and a TR Band was applied for hemostasis CORONARY ANGIOGRAPHY DOMINANCE: Right Dominant LEFT HEART ASSESSMENT Left Ventricular Ejection Fraction: by LV Gram 60 % Normal LV wall motion Normal Left Ventricular systolic function LEFT MAIN: Angiographically normal LEFT ANTERIOR DESCENDING ARTERY: No significant disease noted CIRCUMFLEX ARTERY: No significant disease noted RIGHT CORONARY ARTERY: Mild luminal irregularities VALVE FINDINGS: Mitral Valve Insufficiency - Grade 2 COMPLICATIONS No Complications PROCEDURE MEDICATIONS Fentanyl 25 mcg IV Versed 1 mg IV Fentanyl 25 mcg IV Oxygen: 2 L/min via nasal cannula Aspirin (325mg) 1 Tabs PO @ 07/13/2022 11:44:57 Heparin given IA 07/13/2022 12:16:06 Verapamil 2.5mg, Ntg 100mcgs, 3000 units of Heparin given IA 07/13/2022 12:16:06 SUMMARY OF HEMODYNAMIC DATA Time AIR REST ECG 10:51:06 Art 172/73 (110) 12:06:12 AO 149/74 (107) SA 12:17:52 LV 145/5, 20 12:23:17 LV 145/6, 20 12:23:25 LV 140/8, 22 12:24:07 LVp 149/8, 21 12:24:10 LV 148/8, 22 12:24:16 AOp 158/67 (106) 12:24:17 Signed By Ramesh Sanabria MD On 07/13/2022 12:46:23 Ramesh Sanabria MD
== END 2022-07-13 14:15 | disposition home or self-care (01) ==
LOC: CLSP 10:11
PROVIDERS: Referring Provider Internal Medicine Cardiovascular Disease; Visit Provider Internal Medicine Cardiovascular Disease
DX: I25.10 Atherosclerotic heart disease of native coronary artery without angina pectoris (principal); R07.9 Chest pain, unspecified; I25.2 Old myocardial infarction; I10 Essential (primary) hypertension; F41.9 Anxiety disorder, unspecified; E03.9 Hypothyroidism, unspecified; E78.00 Pure hypercholesterolemia, unspecified; F32.A Depression, unspecified; Z86.73 Personal history of transient ischemic attack (TIA), and cerebral infarction without residual deficits; Z79.899 Other long term (current) drug therapy
CPT/HCPCS: 93458; 99152; 99153; J7040; Q9967; C1769; C1894

== ENCOUNTER → 2022-07-18 | Outpatient (CLI) | payer MEDICARE, MEDICAID, SELFPAY ==
--- NOTE | 2022-07-18 17:09 | MRI_ITS ---
EXAM: MR CERVICAL SPINE WITHOUT INTRAVENOUS CONTRAST CLINICAL INDICATION: CERVICALGIA TECHNIQUE: Multiplanar and multisequence MR images of the cervical spine without intravenous contrast were performed. This report was created using [employer] report generation technology. COMPARISON: None. FINDINGS: VERTEBRAE: Unremarkable. Normal vertebral bodies and posterior elements. Normal alignment. Normal craniocervical junction and cervicothoracic junction. No spondylolisthesis. There is preservation of the normal cervical lordosis. SPINAL CORD: Unremarkable in signal and morphology. SOFT TISSUES: Unremarkable. No prevertebral soft tissue swelling. LYMPH NODES: Unremarkable. There is no cervical adenopathy. DISCS/SPINAL CANAL/NEURAL FORAMINA: C2-3: Normal disc height and morphology. Normal central canal. Foramina are patent. C3-4: Normal disc height and morphology. Mild canal stenosis due to shortened pedicles. Moderate foraminal stenosis due to uncinate hypertrophy. C4-5: Mild spondylotic bar causes minimal cord flattening and mild canal stenosis. Short pedicles are contributory. Severe foraminal stenosis due to uncinate hypertrophy. C5-6: Mild spondylotic bar causing mild cord flattening and mild canal stenosis. Short pedicles are contributory. Foraminal stenosis is moderate on the right and severe on the left due to uncinate hypertrophy. C6-7: Mild disc space narrowing. Mild spondylotic bar causes minimal cord flattening and mild canal stenosis. Severe right foraminal stenosis due to uncinate hypertrophy. C7-T1: Normal disc height and morphology. Normal central canal. Foramina are patent. MRI/Spine Cervical (Routine) IMPRESSION: Mild canal stenosis from C3-4 through C6-7. Short pedicles are contributory. Minimal to mild cord flattening from C4-5 through C6-7 due to spondylosis. Moderate to severe foraminal stenosis from C3-4 through C6-7. Electronically Signed: Gerda Coon MD at 23:18 EST Reading Location ID and State: [id number] / Tel , Service support ,
== END | disposition home or self-care (01) ==
LOC: MRI 16:44
PROVIDERS: Referring Provider Nurse Practitioner Family; Visit Provider Nurse Practitioner Family
DX: M54.2 Cervicalgia (principal)
CPT/HCPCS: 72141

== ENCOUNTER 2022-07-19 14:47 | Emergency (ER) | payer MEDICARE, MEDICAID, SELFPAY ==
[2022-07-19 14:47] VITALS: BP 161/75; PULSE 62; RESP 16; TEMP 36.6; O2SAT 98; BMI 25.2
--- NOTE | 2022-07-19 15:45 | EDS_ITS ---
HPI HPI - Fall History of Present Illness Chief Complaint: Fall Narrative Narrative: 67-year-old female past medical history of CAD, CVA, denies being on blood thinners however, presents with bilateral knee pain and bilateral hand pain status post fall. She states that approximately 3 hours ago she was walking in the parking lot of [employer], and stepped in a hole. She fell forward, onto her knees and onto her bilateral hands. Her boyfriend does state that she was walking alongside him, and he turned to talk to her and saw that she had fallen onto the ground. She now complains of mainly left knee pain and pain at the base of her left thumb. She has bruising on both of her hands, and both of her knees, but she was able to get up after crawling. She denies hitting her head or loss of consciousness. No neck pain, no other injury. [facility] Medical History Abdominal pain Abnormal Holter monitor finding Acute dysfunction of both eustachian tubes Acute seasonal allergic rhinitis Acute serous otitis media Ambulates with cane Anxiety Anxiety disorder Arthritis Atherosclerotic heart disease of [place] coronary artery without angina pectoris Bronchitis Bruising CAD (coronary artery disease) Chest pain Constipation COPD (chronic obstructive pulmonary disease) Depression Diaphragm paralysis Difficulty chewing Difficulty swallowing Easy bruising Essential hypertension Former smoker Fuchs' corneal dystrophy Gastric reflux High cholesterol History of cerebrovascular disease History of CVA (cerebrovascular accident) History of echocardiogram History of heart attack History of hiatal hernia History of IBS History of irregular heartbeat History of renal disease History of stress test HTN (hypertension) Hypothyroidism Hypoxia Mixed hyperlipidemia Restless legs Shortness of breath on exertion Sinus pause Skin tear Stroke/cerebrovascular accident Thigh pain Thyroid disease Traumatic avulsion of nail plate of toe Wears dentures Wears glasses Home Medications cholecalciferol (vitamin D3) 125 mcg (5,000 unit) capsule 5,000 unit PO DAILY SUPPLEMENT 08/14/18 [History Last Taken 06/07/22] levocetirizine 5 mg tablet (Allergy Relief (levocetirizine)) 5 mg PO DAILY ALLERGIES 10/31/19 [History Last Taken 07/13/22] lisinopril 10 mg tablet 10 mg PO DAILY BLOOD PRESSURE 03/21/20 [History Last Taken 07/13/22] citalopram 10 mg tablet 10 mg PO DAILY DEPRESSION 08/17/21 [History Last Taken 06/07/22] levothyroxine 50 mcg tablet 50 mcg PO DAILY THYROID 08/17/21 [History Last Taken 06/07/22] tiotropium 2.5 mcg-olodaterol 2.5 mcg/actuation mist for inhalation (Stiolto Respimat) 2 inh inhalation DAILY COPD 06/07/22 [History Last Taken 06/07/22] clopidogrel 75 mg tablet 75 mg PO DAILY BLOOD THINNER 30 days #30 tabs 06/08/22 [Rx Last Taken 07/13/22] tramadol 50 mg tablet 50 mg PO Q8H PRN pain #12 tabs 06/30/22 [Rx Last Taken Unknown] albuterol sulfate 90 mcg/actuation aerosol inhaler 2 puff inhalation Q6H PRN Shortness Of Breath 07/01/22 [History Last Taken Unknown] atorvastatin 40 mg tablet 40 mg PO DAILY 07/01/22 [History Last Taken Unknown] Allergy/AdvReac Type Severity Reaction Status Date / Time hydrocodone bitartrate Allergy HALLUCINATE Verified 07/19/22 14:50 [From Vicodin] S vancomycin Allergy Rash Verified 07/19/22 14:50 fish derived AdvReac Anaphylaxis Verified 07/19/22 14:50 morphine AdvReac HALLUCINATE Verified 07/19/22 14:50 S Family History Mother Diabetes Heart disease Hypertension High cholesterol Father Heart disease Hypertension High cholesterol CVA (cerebral vascular accident) Surgical History History of bilateral cataract extraction History of right breast biopsy History of shoulder surgery History of surgery on lower extremity History of tubal ligation Social History household members: significant other housing: apartment pets and animals: Yes pets and animals: dog(s) Smoking Status: Former smoker quit date: 10/28/19 pack-years: 25 Tobacco: How many years used: 25 second hand exposure: Yes alcohol intake: never substance use type: does not use caffeine: Yes Type: coffee Number of servings: 1 ROS ROS ED ROS Narrative Constitutional: No fever, no chills. HEENT: No sore throat. No neck pain. No loss of vision. No rhinorrhea. Cardiovascular: No chest pain. No palpitations. No pedal edema. Respiratory: No cough, no shortness of breath. Abdominal: No abdominal pain. No nausea. No vomiting. Genitourinary: No dysuria. No hematuria. Musculoskeletal: No myalgias. Bilateral heel of hand pain and bruising, bilateral knee pain left greater than right, just distal to patella. Neurologic: No headaches. No dizziness. No lightheadedness. Skin: No rash. No change in color. Psychiatric: No depression. No anxiety. EXAM Physical Exam Narrative Exam Narrative: Afebrile. Vital signs noted. HEENT: Normocephalic. Atraumatic. PERRL, EOMI. Neck soft and supple. No point tenderness or step off. Cardiovascular: Regular rate and rhythm. No murmurs, rubs, or gallops appreciated. Respiratory: No tachypnea. Lungs clear to auscultation bilaterally. Gastrointestinal: Abdomen soft, nontender, with normoactive bowel sounds. No rebound or guarding. Neurological: Awake. Alert. Nonfocal, nonlateralizing. Skin: No rash. Normal color. No pallor. Musculoskeletal: No pedal edema. Full range of motion extremities including bilateral wrists and bilateral knees. Positive ecchymosis and tenderness thenar eminence bilateral hands left greater than right. Able to oppose bilateral thumbs. Mild tenderness left proximal tibia, flexion and extension mechanisms intact. Able to lift legs off bed without difficulty. Const Vital Signs: 07/19/22 14:47 07/19/22 15:58 Temperature 98 F Temperature Source Temporal Pulse Rate 62 Respiratory Rate 16 Respiratory Effort Normal Non-Labored Respiratory Depth Normal Respiratory Pattern Normal Blood Pressure 161/75 H Blood Pressure Mean 103 Pulse Ox 98 Oxygen Delivery Method Room Air MDM MDM MDM Narrative Medical decision making narrative: Patient was given Tylenol and an ice pack for comfort. X-rays were obtained of the bilateral knees and bilateral hands to rule out fractures. I reviewed and interpreted the patient's x-rays of her bilateral hands and see no evidence of acute fracture, additionally I reviewed and interpreted her bilateral knee x- rays and see no evidence of fracture. I reviewed the radiology reports on these images and they confirm that there is no evidence of acute fracture noted. At this point in time, she will continue [id number] medications, and icing the affected areas. I feel she can be discharged safely home with follow-up. She states she already follows up with orthopedics regarding her shoulder pain. Return instructions to the emergency department were reviewed. Disposition is discharged home in stable condition. Radiography Diagnostic Testing: Clinical Impression(s) from Imaging Studies Hand X-Ray 07/19/22 16:10 IMPRESSION: Old mallet finger fifth DIP joint. No acute fracture noted. Electronically Signed: Jovanni Urias MD at 16:36 EST , Hand X-Ray 07/19/22 16:10 IMPRESSION: Normal x-ray examination of the hand. Electronically Signed: Jovanni Urias MD at 16:34 EST Reading Location ID and State: [facility] / [place] , Service support , Knee X-Ray 07/19/22 16:10 IMPRESSION: Normal x-ray examination of the knee. Electronically Signed: Jovanni Urias MD at 16:39 EST Reading Location ID and State: [id number] / [place] , Service support , Knee X-Ray 07/19/22 16:10 IMPRESSION: Normal x-ray examination of the knee. Electronically Signed: Jovanni Urias MD at 16:38 EST , Discharge Plan Triage Chief Complaint: Fall ED Provider: Naif Jackson Dx/Rx/DC Orders Clinical Impression: Fall, Hand contusion, Contusion of left knee and lower leg Instructions: ED Hand Contusion, ED Contusion, Lower Extremity, ED Mechanical Fall Prescriptions: No Action cholecalciferol (vitamin D3) 5,000 unit capsule 5,000 unit PO DAILY levocetirizine [Allergy Relief (levocetirizin)] 5 mg tablet 5 mg PO DAILY citalopram 10 mg tablet 10 mg PO DAILY levothyroxine 50 mcg tablet 50 mcg PO DAILY atorvastatin 40 mg tablet 40 mg PO DAILY albuterol sulfate 90 mcg/actuation HFA aerosol inhaler 2 puff inhalation Q6H PRN (Reason: Shortness Of Breath) lisinopril 10 MG tablet 10 mg PO DAILY Stiolto Respimat 2.5-2.5 mcg/actuation mist 2 inh inhalation DAILY clopidogrel 75 MG tablet 75 mg PO DAILY 30 Days Qty: 30 0RF tramadol 50 mg tablet 50 mg PO Q8H PRN (Reason: pain) Qty: 12 0RF Primary Care Provider: [facility] Danae Valdez Referrals: [facility] Danae Valdez [Primary Care Provider] - Activity Restrictions/Additional Instructions: Follow-up with orthopedics as needed. Take Tylenol and ice the affected areas. Disposition Disposition: Home, Self Care
[2022-07-19] MEDS: Acetaminophen 325 MG Tablet 650 MG PO (15:52)
--- NOTE | 2022-07-19 16:10 | RAD_ITS ---
STUDY: X-RAY - LEFT KNEE REASON FOR EXAM: Female, 67 years old. trauma TECHNIQUE: 4 view(s) of the knee. COMPARISON: December 05, 2016 FINDINGS: Normal visualized distal femur. Normal visualized proximal tibia and fibula. Normal proximal tibiofibular articulation. Normal medial femorotibial compartment. Normal lateral femorotibial compartment. Normal patellofemoral articulation. The soft tissue structures are unremarkable. RAD/Knee 4 or More Views IMPRESSION: Normal x-ray examination of the knee. Electronically Signed: Jovanni Urias MD at 16:39 EST ,
--- NOTE | 2022-07-19 16:10 | RAD_ITS ---
STUDY: X-RAY - LEFT HAND REASON FOR EXAM: Female, 67 years old. trauma, pain TECHNIQUE: 3 view(s) of the hand. COMPARISON: None. FINDINGS: Normal radiocarpal articulation. Normal distal radioulnar joint. Normal visualized carpal bones. Normal carpal articulations Normal carpometacarpal articulation of the thumb. Normal second through fifth carpometacarpal joints. Normal metacarpi. Normal metacarpophalangeal joint of the thumb. Normal interphalangeal joint of the thumb. Normal proximal and distal phalanges of the thumb. Normal metacarpophalangeal joints of the second through fifth fingers. Old mallet finger deformity DIP joint fifth digit. Normal phalanges of the second through fifth fingers. The soft tissue structures are unremarkable. RAD/Hand Min 3 Views IMPRESSION: Old mallet finger fifth DIP joint. No acute fracture noted. Electronically Signed: Jovanni Urias MD at 16:36 EST ,
--- NOTE | 2022-07-19 16:10 | RAD_ITS ---
STUDY: X-RAY - RIGHT HAND REASON FOR EXAM: Female, 67 years old. PAIN TECHNIQUE: 3 view(s) of the hand. COMPARISON: None. FINDINGS: Normal radiocarpal articulation. Normal distal radioulnar joint. Normal visualized carpal bones. Normal carpal articulations Normal carpometacarpal articulation of the thumb. Normal second through fifth carpometacarpal joints. Normal metacarpi. Normal metacarpophalangeal joint of the thumb. Normal interphalangeal joint of the thumb. Normal proximal and distal phalanges of the thumb. Normal metacarpophalangeal joints of the second through fifth fingers. Normal proximal and distal interphalangeal joints of the second through fifth fingers. Normal phalanges of the second through fifth fingers. The soft tissue structures are unremarkable. RAD/Hand Min 3 Views IMPRESSION: Normal x-ray examination of the hand. Electronically Signed: Jovanni Urias MD at 16:34 EST ,
--- NOTE | 2022-07-19 16:10 | RAD_ITS ---
STUDY: X-RAY - RIGHT KNEE REASON FOR EXAM: Female, 67 years old. PAIN TECHNIQUE: 4 view(s) of the knee. COMPARISON: None. FINDINGS: Normal visualized distal femur. Normal visualized proximal tibia and fibula. Normal proximal tibiofibular articulation. Spurring of the superior pole of the patella. Normal medial femorotibial compartment. Normal lateral femorotibial compartment. Normal patellofemoral articulation. The soft tissue structures are unremarkable. RAD/Knee 4 or More Views IMPRESSION: Normal x-ray examination of the knee. Electronically Signed: Jovanni Urias MD at 16:38 EST ,
== END 2022-07-19 17:02 | disposition home or self-care (01) ==
PROVIDERS: Emergency Provider Emergency Medicine; Visit Provider Emergency Medicine
DX: S60.222A Contusion of left hand, initial encounter (principal); J44.9 Chronic obstructive pulmonary disease, unspecified; S60.221A Contusion of right hand, initial encounter; S80.02XA Contusion of left knee, initial encounter; I25.10 Atherosclerotic heart disease of native coronary artery without angina pectoris; F41.9 Anxiety disorder, unspecified; F32.A Depression, unspecified; I10 Essential (primary) hypertension; E03.9 Hypothyroidism, unspecified; Z86.73 Personal history of transient ischemic attack (TIA), and cerebral infarction without residual deficits; Z79.899 Other long term (current) drug therapy; W19.XXXA Unspecified fall, initial encounter; Z87.891 Personal history of nicotine dependence; Y92.481 Parking lot as the place of occurrence of the external cause
CPT/HCPCS: 73130; 73564; 99283

== ENCOUNTER 2022-08-24 13:00 | Outpatient (RCR) | payer MEDICARE, MEDICAID, SELFPAY ==
--- NOTE | 2022-07-29 13:28 | HP.PTEVAL_ITS ---
Patient's Visit Information AUBRIE ANDREWS is a 67 year old F referred to Physical Therapy by Dr. Giuseppe Mireles MD with a diagnosis of IMPINGEMENT RIGHT SHOULDER. Date of Evaluation: 07/29/22 Physical Therapist: Jeff West, PT, Cert MDT, OCS - Visit Plan Frequency: 2x /Week Duration: 4 Weeks Plan: PT INTERVETIONS MANUAL THERAPY CERVICAL TRACTION , US/ICTX,CP, AND CERVICAL ROM AND POSTURAL EX'S - Subjective This 67 y/o female presents to physical therapy with right shoulder pain. Patient has had shoulder pain in Mar 2022 which patient fell. Patient noticed pain 2 days later ER at [facility]. Symptoms didn't get better Seen Dr Mireles thus recommended PT. Did recommended cortisone. Dr Mireles thinks possible cervical radiculopathy. Although ,if patient does not get better spine DR. Location UT /shoulder/deltoid to wrist .Patient had x-rays - of shoulder. Symptoms worse with rotating neck to right ,flexion ,sitting. Alleviating factors raising arm . Denies paresthesia/tingling. Patient denies SUERO/nausea/tinnitus .Patient is able to sleep . Although ,unable to lay on shoulder. Patient goals to have no more pain. SOCIAL: . VOCATION: disability - Pain Right Shoulder Pain Intensity (Out of 10): 10 Pain Intensity Range: 10 Right Elbow Pain Intensity (Out of 10): 10 Right Neck Pain Intensity (Out of 10): 8 Comment: UT - Objective POSTURE: mild forward posture. PALPATION: tender UT/levators/scapular. NEURO: denies paresthesia/tingling ,reflexes C5-6-7 2/3. AROM BUE: shoulder/flexion 160 degrees ,ER 90 , IR L1. MMT: RTC 4/5 ,4-/5 shoulder anterior/lateral. CERVICAL ROM: flexion min loss pain ,rotation/lateral flexion right mod pain right scapular ,left min/mod loss ,extension mod - Special Tests C/S Radiculapathy - Left Upper limb tension test: Negative C/S Radiculapathy - Right Upper limb tension test: Negative C/S Radiculapathy - Left Spurl[place]: Negative C/S Radiculapathy - Right [place]: Positive C/S Radiculapathy - Left Cervical distraction: Negative C/S Radiculapathy - Right Cervical distraction: Negative C/S Radiculapathy - Left Relief test: Negative [place]: Negative Vertebral Artery Test: Negative Alar Ligament Test: Negative R Shoulder Lift Off Test - Subscapular Tear: Negative R Shoulder Drop Sign - IS Test: Negative R Shoulder Empty Can - SS: Negative R Shoulder Neer - Impingement: Negative R Shoulder Armas Solis - Impingement: Negative R Shoulder Shrug Sign - OA/Adhesive Capsulitis: Negative - Balance/Special Test Scores Oswestry Neck Score: 25 - Goals Goal 1:: I with HEP cervical Goal Time Frame: 4-6 Weeks Goal 2:: Patient to demonstrate 50% improvement to function with less pain Goal Time Frame: 4-6 Weeks Goal 3:: Patient to improve cervical ROM for function of recovery to turn neck to right Goal Time Frame: 4-6 Weeks Goal 4:: Patient to improve neck oswestry by 5 points to improve QOL and function Goal Time Frame: 4-6 Weeks Goal 5:: Patient to perform ADLS' and housework tasks with right arm with min limiations Goal Time Frame: 4-6 Weeks - Rehabilitation Potential Physical Therapy Diagnosis: Patient appears to have cervical radiculopathy in scapular to hand worse with position and and motion to right with possible lateral stenosis also according to DR examination believes its is cervical radiculopathy thus will benefit skilled PT Rehabilitation Potential: Good - Anticipated Interventions Patient/Client Instruction: Educate patient on: Condition, Plan of Care For the Purpose of:: To decrease pain, To increase ROM, To improve muscle performance and motor function, To increase tolerance to activity/condition/ position, To improve ability of physical actions for home/community/work/leisure, To improve health of tissue, To decrease soft tissue restriction, To improve tolerance to ADL's Therapeutic Exercise to Include: Strength training, Postural training, Flexibilty training, Active ROM For the Purpose of:: To decrease swelling/inflammation, To increase ROM, To increase tolerance to activity/condition/position, To improve ability of physical actions for home/community/work/leisure, To improve health of tissue, To decrease soft tissue restriction, To increase flexibility/ROM, To reduce risk of recurrence, To improve tolerance to ADL's Manual Therapy Techniques to Include: Mobilization Comment: CERVICAL SPINE For the Purpose of:: To decrease pain, To increase ROM, To improve muscle performance and motor function, To improve health of tissue, To decrease soft tissue restriction TENS: Yes IF ES: Yes Thermo therapy (hot pack): Yes Ultrasound (thermal/non thermal): Yes For the Purpose of:: To decrease pain, To increase ROM, To improve nutrient delivery to tissue, To increase oxygenation perfusion, To improve health of tissue, To decrease soft tissue restriction Thank you for the opportunity to evaluate your patient. For Medicare and Medicare HMO plans, please review the plan of care and approve it. It will need to be FAXED BACK to us at [phone] for Medicare purposes. For Medicare only, by signing this I certify the plan of care. Please let me know if there are questions or concerns regarding this plan of care. Physician Signature: Date:
--- NOTE | 2022-08-24 13:45 | HP.PTEVAL ---
Patient's Visit Information AUBRIE ANDREWS is a 67 year old F referred to Physical Therapy by Dr. Giuseppe Mireles MD with a diagnosis of IMPINGEMENT RIGHT SHOULDER. Date of Evaluation: 07/29/22 Physical Therapist: Jeff West PT, Cert MDT, OCS - Visit Plan Frequency: 2x /Week Duration: 4 Weeks Plan: D/C - Subjective This 67 y/o female presents to physical therapy with right shoulder pain. Patient has had shoulder pain in Mar 2022 which patient fell. Patient noticed pain 2 days [address] [facility]. Symptoms didn't get better Seen Dr Mireles thus recommended PT. Did recommended cortisone. Dr Mireles thinks possible cervical radiculopathy. Although ,if patient does not get better spine DR. Location UT /shoulder/deltoid to wrist .Patient had x-rays - of shoulder. Symptoms worse with rotating neck to right ,flexion ,sitting. Alleviating factors raising arm . Denies paresthesia/tingling. Patient denies SUERO/nausea/tinnitus .Patient is able to sleep . Although ,unable to lay on shoulder. Patient goals to have no more pain. SOCIAL: . VOCATION: disability - Pain Right Shoulder Pain Intensity (Out of 10): 0 Pain Intensity Range: 10 Right Elbow Pain Intensity (Out of 10): 0 Right Neck Pain Intensity (Out of 10): 0 Comment: UT - Objective POSTURE: mild forward posture. PALPATION: tender UT/levators/scapular. NEURO: denies paresthesia/tingling ,reflexes C5-6-7 2/3. AROM BUE: shoulder/flexion 160 degrees ,ER 90 , IR L1. MMT: RTC 4/5 ,4-/5 shoulder anterior/lateral. CERVICAL ROM: flexion min loss pain ,rotation/lateral flexion right mod pain right scapular ,left min/mod loss ,extension mod - Special Tests C/S Radiculapathy - Left Upper limb tension test: Negative C/S Radiculapathy - Right Upper limb tension test: Negative C/S Radiculapathy - Left Spurlings: Negative C/S Radiculapathy - Right Spurlings: Positive C/S Radiculapathy - Left Cervical distraction: Negative C/S Radiculapathy - Right Cervical distraction: Negative C/S Radiculapathy - Left Relief test: Negative [place]: Negative Vertebral Artery Test: Negative Alar Ligament Test: Negative R Shoulder Lift Off Test - Subscapular Tear: Negative R Shoulder Drop Sign - IS Test: Negative R Shoulder Empty Can - SS: Negative R Shoulder Neer - Impingement: Negative R Shoulder Armas Solis - Impingement: Negative R Shoulder Shrug Sign - OA/Adhesive Capsulitis: Negative - Balance/Special Test Scores Oswestry Neck Score: 1 - Goals Goal 1:: I with HEP cervical Goal Time Frame: 4-6 Weeks Goal 2:: Patient to demonstrate 50% improvement to function with less pain Goal Time Frame: 4-6 Weeks Goal 3:: Patient to improve cervical ROM for function of recovery to turn neck to right Goal Time Frame: 4-6 Weeks Goal 4:: Patient to improve neck oswestry by 5 points to improve QOL and function Goal Time Frame: 4-6 Weeks Goal 5:: Patient to perform ADLS' and housework tasks with right arm with min limiations Goal Time Frame: 4-6 Weeks - Rehabilitation Potential Physical Therapy Diagnosis: Patient appears to have cervical radiculopathy in scapular to hand worse with position and and motion to right with possible lateral stenosis also according to DR examination believes its is cervical radiculopathy thus will benefit skilled PT Rehabilitation Potential: Good - Anticipated Interventions Patient/Client Instruction: Educate patient on: Condition, Plan of Care For the Purpose of:: To decrease pain, To increase ROM, To improve muscle performance and motor function, To increase tolerance to activity/condition/position, To improve ability of physical actions for home/community/work/leisure, To improve health of tissue, To decrease soft tissue restriction, To improve tolerance to ADL's Therapeutic Exercise to Include: Strength training, Postural training, Flexibilty training, Active ROM For the Purpose of:: To decrease swelling/inflammation, To increase ROM, To increase tolerance to activity/condition/position, To improve ability of physical actions for home/community/work/leisure, To improve health of tissue, To decrease soft tissue restriction, To increase flexibility/ROM, To reduce risk of recurrence, To improve tolerance to ADL's Manual Therapy Techniques to Include: Mobilization Comment: CERVICAL SPINE For the Purpose of:: To decrease pain, To increase ROM, To improve muscle performance and motor function, To improve health of tissue, To decrease soft tissue restriction TENS: Yes IF ES: Yes Thermo therapy (hot pack): Yes Ultrasound (thermal/non thermal): Yes For the Purpose of:: To decrease pain, To increase ROM, To improve nutrient delivery to tissue, To increase oxygenation perfusion, To improve health of tissue, To decrease soft tissue restriction Thank you for the opportunity to evaluate your patient. For Medicare and Medicare HMO plans, please review the plan of care and approve it. It will need to be FAXED BACK to us at [phone] for Medicare purposes. For Medicare only, by signing this I certify the plan of care. Please let me know if there are questions or concerns regarding this plan of care. Physician Signature: Date:
--- NOTE | 2022-08-26 11:02 | HP.PTDCSUM ---
It has been my pleasure to treat AUBRIE ANDREWS referred by Dr. Giuseppe Mireles MD, with the diagnosis of IMPINGEMENT RIGHT SHOULDER for a total of 9 visit(s). Discharge Date: 08/24/22 Please see the following information for a summary of their discharge status. Subjective: Doing good ready for d/c. Doing ex's at home Right Shoulder Pain Intensity (Out of 10): 0 Right Elbow Pain Intensity (Out of 10): 0 Right Neck Pain Intensity (Out of 10): 0 % Improvement: 90 Objective/Function: POSTURE: WFL. MMT: RTC/DELTOID 4/5. AROM: RIGHT UE. CERVICAL ROM: flexion WFL ,extension min , lateral flexion/extension min/mod loss Goal 1:: I with HEP cervical Goal Progress: Goal Met Goal 2:: Patient to demonstrate 50% improvement to function with less pain Goal Progress: Goal Met Goal 3:: Patient to improve cervical ROM for function of recovery to turn neck to right Goal Progress: Goal Met Goal 4:: Patient to improve neck oswestry by 5 points to improve QOL and function Goal Progress: Goal Met Goal 5:: Patient to perform ADLS' and housework tasks with right arm with min limiations Goal Progress: Goal Met Plan: D/C If there are questions or concerns regarding this patient's physical therapy, please feel free to call me at [phone]. Thank you for the referral of this patient. Sincerely, Jeff West, PT, Cert MDT, OCS Balance/Gait/Functional tests - Balance/Special Test Scores Oswestry Neck Score: 1
== END 2022-08-24 19:00 | disposition home or self-care (01) ==
LOC: PT 13:00
PROVIDERS: Referring Provider Orthopaedic Surgery Sports Medicine; Visit Provider Orthopaedic Surgery Sports Medicine
DX: M75.41 Impingement syndrome of right shoulder (principal)
CPT/HCPCS: 97012; 97035; 97110; 97140; 97162

== ENCOUNTER 2022-09-03 18:12 | Emergency (ER) | payer MEDICARE, MEDICAID, SELFPAY ==
[2022-09-03 18:12] VITALS: BP 135/66; PULSE 94; RESP 18; TEMP 36.7; O2SAT 92; BMI 23.8
--- NOTE | 2022-09-03 19:24 | EDS_ITS ---
HPI History of Present Illness Chief Complaint: Cold Sx Informant: patient Onset/Context/Timing Onset: Days (6 days) Context: Gradual Onset Current Severity: Mild Maximum Severity: Moderate Narrative Narrative: Patient presents with 6-day history of cough and congestion with sore throat. She has not had fever. She is coughing up white-yellow sputum. She does have a history of COPD and has noted some increased wheezing. [facility] Medical History Abdominal pain Abnormal Holter monitor finding Acute dysfunction of both eustachian tubes Acute seasonal allergic rhinitis Acute serous otitis media Ambulates with cane Anxiety Anxiety disorder Arthritis Atherosclerotic heart disease of [place] coronary artery without angina pectoris Bronchitis Bruising CAD (coronary artery disease) Chest pain Constipation COPD (chronic obstructive pulmonary disease) Depression Diaphragm paralysis Difficulty chewing Difficulty swallowing Easy bruising Essential hypertension Former smoker Fuchs' corneal dystrophy Gastric reflux High cholesterol History of cerebrovascular disease History of CVA (cerebrovascular accident) History of echocardiogram History of heart attack History of hiatal hernia History of IBS History of irregular heartbeat History of renal disease History of stress test HTN (hypertension) Hypothyroidism Hypoxia Internal impingement of right shoulder Mixed hyperlipidemia Restless legs Shortness of breath on exertion Sinus pause Skin tear Stroke/cerebrovascular accident Thigh pain Thyroid disease Traumatic avulsion of nail plate of toe Wears dentures Wears glasses Home Medications cholecalciferol (vitamin D3) 125 mcg (5,000 unit) capsule 5,000 unit PO DAILY SUPPLEMENT 08/14/18 [History Last Taken 06/07/22] levocetirizine 5 mg tablet (Allergy Relief (levocetirizine)) 5 mg PO DAILY ALLERGIES 10/31/19 [History Last Taken 07/13/22] lisinopril 10 mg tablet 10 mg PO DAILY BLOOD PRESSURE 03/21/20 [History Last Taken 07/13/22] citalopram 10 mg tablet 10 mg PO DAILY DEPRESSION 08/17/21 [History Last Taken 06/07/22] levothyroxine 50 mcg tablet 50 mcg PO DAILY THYROID 08/17/21 [History Last Taken 06/07/22] tiotropium 2.5 mcg-olodaterol 2.5 mcg/actuation mist for inhalation (Stiolto Respimat) 2 inh inhalation DAILY COPD 06/07/22 [History Last Taken 06/07/22] clopidogrel 75 mg tablet 75 mg PO DAILY BLOOD THINNER 30 days #30 tabs 06/08/22 [Rx Last Taken 07/13/22] tramadol 50 mg tablet 50 mg PO Q8H PRN pain #12 tabs 06/30/22 [Rx Last Taken Unknown] albuterol sulfate 90 mcg/actuation aerosol inhaler 2 puff inhalation Q6H PRN Shortness Of Breath 07/01/22 [History Last Taken Unknown] atorvastatin 40 mg tablet 40 mg PO DAILY 07/01/22 [History Last Taken Unknown] azithromycin 250 mg tablet (Zithromax) 250 mg PO DAILY 4 days #4 tabs 09/03/22 [Rx Last Taken Unknown] prednisone 20 mg tablet 40 mg PO DAILY #8 tabs 09/03/22 [Rx Last Taken Unknown] Allergy/AdvReac Type Severity Reaction Status Date / Time hydrocodone bitartrate Allergy HALLUCINATE Verified 09/03/22 18:15 [From Vicodin] S vancomycin Allergy Rash Verified 09/03/22 18:15 fish derived AdvReac Anaphylaxis Verified 09/03/22 18:15 morphine AdvReac HALLUCINATE Verified 09/03/22 18:15 S Family History Mother Diabetes Heart disease Hypertension High cholesterol Father Heart disease Hypertension High cholesterol CVA (cerebral vascular accident) Surgical History History of bilateral cataract extraction History of right breast biopsy History of shoulder surgery History of surgery on lower extremity History of tubal ligation Social History household members: significant other housing: apartment pets and animals: Yes pets and animals: dog(s) Smoking Status: Former smoker quit date: 10/28/19 pack-years: 25 Tobacco: How many years used: 25 second hand exposure: Yes alcohol intake: never substance use type: does not use caffeine: Yes Type: coffee Number of servings: 1 ROS ROS ED Constitutional Constitutional ED: Denies chills or fever(s) Eyes Eyes: Denies change in vision or discharge from eye(s) ENT ENT ED: Reports sore throat; Denies discharge from eye(s) or rhinorrhea Cardiovascular Cardiovascular: Reports chest pain and other Details: Chest pain with cough only ; Denies palpitations Respiratory/Chest Respiratory/Chest: Reports cough and sputum; Denies dyspnea Gastrointestinal Gastrointestinal: Denies abdominal pain, diarrhea, nausea or vomiting Genitourinary Genitourinary ED: Denies difficulty urinating or dysuria Musculoskeletal Musculoskeletal: Denies back pain or extremity pain Integumentary Denies Abrasions or rash Neurologic Neurologic: Denies headache(s) or weakness Psychiatric Psychiatric: Denies anxiety or depression Allergic/Immunologic Allergic/Immunologic ED: Denies lip swelling or urticaria EXAM Physical Exam Const Vital Signs: 09/03/22 18:12 09/03/22 19:37 Temperature 98.1 F Temperature Source Temporal Pulse Rate 94 94 Respiratory Rate 18 18 Respiratory Pattern Normal Blood Pressure 135/66 H Blood Pressure Mean 89 Pulse Ox 92 Oxygen Delivery Method Room Air Positive well nourished and well developed General Appearance ED: well developed HEENT Reports normocephalic and head/scalp atraumatic HEENT Narrative: Mild tenderness of the right maxillary sinus and frontal sinuses bilaterally. Posterior pharynx exam is unremarkable. Eyes PERRL and EOMs intact bilaterally Neck supple Chest Wall inspection of chest normal and palpation of chest normal Resp normal respiratory effort Resp Narrative: Scant expiratory wheezes on the left. Cardio regular rate and regular rhythm GI normal to inspection, nondistended, normoactive bowel sounds Palpation: soft Extremity normal to inspection Neuro oriented x3 and no sensory deficits noted Sensorium / Orientation: alert Motor Exam: strength 5/5 throughout Psych mental status grossly normal Skin no rashes or lesions noted MDM MDM MDM Narrative Medical decision making narrative: Patient placed on paper hanger. EKG obtained given chest pain, although it is only with cough. Chest x-ray obtained. Swab for COVID and influenza ordered. Patient given a DuoNeb treatment and a dose of prednisone. Radiography Chest X-Ray - ED: 1 View, Read by ED Physician, Chronic Changes and No Infiltrates Diagnostic Testing: Clinical Impression(s) from Imaging Studies Chest X-Ray 09/03/22 20:00 IMPRESSION: No radiographic evidence of acute cardiopulmonary disease. Electronically Signed: Gerda Coon MD at 20:41 EDT Reading Location ID and State: [id number] / Tel , Service support , EKG Initial EKG: Attestation: I personally reviewed and interpreted this EKG as follows: Interpretation: Sinus Rhythm (Sinus at 76 with no acute ischemia.) Treatment and Re-Evaluation :: Repeat evaluation patient improved. Swab for COVID and influenza is negative. Chest x-ray per my interpretation reveals chronic COPD changes with no evidence of infiltrate. Radiology interpretation is reviewed and agrees. EKG reveals no ischemia. Given the patient's underlying COPD I will cover her with prednisone and Zithromax for COPD flare. She is comfortable with this plan. Return instructions given. Discharge Plan Triage Chief Complaint: Cold Sx ED Provider: Lili Roque Dx/Rx/DC Orders Clinical Impression: COPD exacerbation Instructions: ED COPD Flare Prescriptions: New prednisone 20 mg tablet 40 mg PO DAILY Qty: 8 0RF azithromycin [Zithromax] 250 mg tablet 250 mg PO DAILY 4 Days Qty: 4 0RF Rx Instructions: start on day 2 of therapy No Action cholecalciferol (vitamin D3) 5,000 unit capsule 5,000 unit PO DAILY levocetirizine [Allergy Relief (levocetirizin)] 5 mg tablet 5 mg PO DAILY citalopram 10 mg tablet 10 mg PO DAILY levothyroxine 50 mcg tablet 50 mcg PO DAILY atorvastatin 40 mg tablet 40 mg PO DAILY albuterol sulfate 90 mcg/actuation HFA aerosol inhaler 2 puff inhalation Q6H PRN (Reason: Shortness Of Breath) lisinopril 10 MG tablet 10 mg PO DAILY Stiolto Respimat 2.5-2.5 mcg/actuation mist 2 inh inhalation DAILY clopidogrel 75 MG tablet 75 mg PO DAILY 30 Days Qty: 30 0RF tramadol 50 mg tablet 50 mg PO Q8H PRN (Reason: pain) Qty: 12 0RF Primary Care Provider: [facility] Danae Valdez Referrals: [facility] Danae Valdez [Primary Care Provider] - 1-2 Weeks Disposition Disposition: Home, Self Care
[2022-09-03 19:37] VITALS: PULSE 94; RESP 18
[2022-09-03] MEDS: Ipratropium/Albuterol Sulfate 3 ML AMPUL.NEB INHALATION (19:37)
[2022-09-03] MEDS: predniSONE 20 MG Tablet 40 MG PO (19:50)
--- NOTE | 2022-09-03 20:00 | RAD_ITS ---
INDICATION: cough EXAMINATION/TECHNIQUE: X-RAY - XR Chest 1 View COMPARISON: 06/07/2022. FINDINGS: LINES/DEVICES: None. LUNGS: No consolidation, edema or effusion. No pneumothorax. MEDIASTINUM AND CARDIOVASCULAR STRUCTURES: Cardiac silhouette not enlarged. Central airways and mediastinal contour are unremarkable. BONES AND SOFT TISSUES: Unremarkable. RAD/Chest 1 View (Portable) IMPRESSION: No radiographic evidence of acute cardiopulmonary disease. Electronically Signed: Gerda Coon MD at 20:41 EDT Reading Location ID and State: [id number] / Tel , Service support ,
[2022-09-03 21:15] VITALS: BP 122/94; PULSE 77; RESP 18; O2SAT 94
[2022-09-03] MEDS: Azithromycin 250 MG Tablet 500 MG PO (21:27)
[2022-09-03 21:29] VITALS: BP 132/63; PULSE 76; RESP 14; O2SAT 93
== END 2022-09-03 21:30 | disposition home or self-care (01) ==
PROVIDERS: Emergency Provider Emergency Medicine; Visit Provider Emergency Medicine
DX: J44.1 Chronic obstructive pulmonary disease with (acute) exacerbation (principal); I25.10 Atherosclerotic heart disease of native coronary artery without angina pectoris; I25.2 Old myocardial infarction; Z86.73 Personal history of transient ischemic attack (TIA), and cerebral infarction without residual deficits; Z87.891 Personal history of nicotine dependence
CPT/HCPCS: 71045; 87428; 93005; 94640; 99284

== ENCOUNTER 2022-10-21 14:24 | Emergency (ER) | payer MEDICARE, MEDICAID, SELFPAY ==
[2022-10-21 14:25] VITALS: BP 143/77; PULSE 71; RESP 14; TEMP 37.2; O2SAT 95
[2022-10-21 14:55] VITALS: BMI 24.7
--- NOTE | 2022-10-21 15:29 | CT_ITS ---
STUDY: CT ABDOMEN AND PELVIS WITH CONTRAST REASON FOR EXAM: Female, 67 years old. RLQ pain RADIATION DOSAGE (If Supplied By Facility): CTDIvol = ( 12.63 ) mGy, DLP = ( 556.59 ) mGycm TECHNIQUE: IV 96 mL Isovue-300 was administered. Transaxial images were obtained from the dome of the diaphragm to the symphysis pubis. Multiplanar coronal and sagittal images were reformatted. Individualized Dose Optimization Techniques Were Used For This CT. COMPARISON: None FINDINGS: The visualized lung bases are unremarkable. The visualized portions of the heart are within normal limits. Scattered cystic liver lesions, probably benign. Normal gallbladder and extrahepatic biliary system. Normal spleen. Normal pancreas. Normal bilateral adrenal glands. Normal visualized stomach. Normal small intestine. Normal colon. There is non-visualization of the appendix. Normal abdominal aorta. No retroperitoneal adenopathy. Normal right kidney. Normal left kidney. Normal urinary bladder. Normal visualized uterus. Normal abdominal wall. Normal thoracolumbar vertebral alignment. CT/Abdomen/Pelvis W IV Cont ONLY IMPRESSION: 1. Nonvisualized appendix, though there is no inflammatory stranding about the cecum. 2. No acute abnormal finding in the abdomen or pelvis. Electronically Signed: Cole Maki MD at 17:11 EDT ,
--- NOTE | 2022-10-21 15:41 | EDS_ITS ---
HPI HPI - GI History of Present Illness Chief Complaint: Abd Pain Informant: patient Abdominal Pain/Flank Pain Onset: Yesterday Timing: Continuous Quality: Aching Location: RLQ Current Severity: Moderate Maximum Severity: Moderate Worsened by: Nothing Relieved by: Nothing Nausea/Vomiting/Emesis GI Symptom: Positive for Nausea; Negative for Vomiting Diarrhea/Melena/Hematochezia GI Symptom: Negative for Diarrhea, Melena or Hematochezia Associated Symptoms Associated Symptoms: Negative for Dysuria, Frequency, Hematuria or Urgency Narrative Narrative: Patient started having mild right lower quadrant abdominal pain last evening, gradually worsening throughout the day today, associated with anorexia, nausea no vomiting. No fevers that she knows of. No urinary symptoms, normal bowel movements without blood or melena recently. Never had this pain before. No intra-abdominal surgeries in the past. Pain does not radiate to her back. [facility] Medical History Abdominal pain Abnormal Holter monitor finding Acute dysfunction of both eustachian tubes Acute seasonal allergic rhinitis Acute serous otitis media Ambulates with cane Anxiety Anxiety disorder Arthritis Atherosclerotic heart disease of [place] coronary artery without angina pectoris Bronchitis Bruising CAD (coronary artery disease) Chest pain Constipation COPD (chronic obstructive pulmonary disease) Depression Diaphragm paralysis Difficulty chewing Difficulty swallowing Easy bruising Essential hypertension Former smoker Fuchs' corneal dystrophy Gastric reflux High cholesterol History of cerebrovascular disease History of CVA (cerebrovascular accident) History of echocardiogram History of heart attack History of hiatal hernia History of IBS History of irregular heartbeat History of renal disease History of stress test HTN (hypertension) Hypothyroidism Hypoxia Internal impingement of right shoulder Mixed hyperlipidemia Restless legs Shortness of breath on exertion Sinus pause Skin tear Stroke/cerebrovascular accident Thigh pain Thyroid disease Traumatic avulsion of nail plate of toe Wears dentures Wears glasses Home Medications cholecalciferol (vitamin D3) 125 mcg (5,000 unit) capsule 5,000 unit PO DAILY SUPPLEMENT 08/14/18 [History Last Taken 06/07/22] levocetirizine 5 mg tablet (Allergy Relief (levocetirizine)) 5 mg PO DAILY ALLERGIES 10/31/19 [History Last Taken 07/13/22] citalopram 10 mg tablet 10 mg PO DAILY DEPRESSION 08/17/21 [History Last Taken 06/07/22] levothyroxine 50 mcg tablet 50 mcg PO DAILY THYROID 08/17/21 [History Last Taken 06/07/22] clopidogrel 75 mg tablet 75 mg PO DAILY BLOOD THINNER 30 days #30 tabs 06/08/22 [Rx Last Taken 07/13/22] tramadol 50 mg tablet 50 mg PO Q8H PRN pain #12 tabs 06/30/22 [Rx Last Taken Unknown] albuterol sulfate 90 mcg/actuation aerosol inhaler 2 puff inhalation Q6H PRN Shortness Of Breath 07/01/22 [History Last Taken Unknown] atorvastatin 40 mg tablet 40 mg PO DAILY 07/01/22 [History Last Taken Unknown] budesonide 160 mcg-glycopyr 9 mcg-formot 4.8 mcg/actuation HFA inhaler (Breztri Aerosphere) 2 inh inhalation BID #10.7 grams 09/13/22 [Rx Last Taken Unknown] losartan 25 mg tablet 25 mg PO DAILY #90 tabs 09/29/22 [Rx Last Taken Unknown] dicyclomine 10 mg capsule 20 mg PO Q6H PRN PRN abdominal discomfort #30 CAPSULES 10/21/22 [Rx Last Taken Unknown] ondansetron 4 mg disintegrating tablet 8 mg PO Q8H PRN PRN Nausea #15 tabs 10/21/22 [Rx Last Taken Unknown] oxycodone-acetaminophen 5 mg-325 mg tablet 0.5 - 1 tab PO Q6H PRN PRN Pain 3 days #8 TABLETS 10/21/22 [Rx Last Taken Unknown] Allergy/AdvReac Type Severity Reaction Status Date / Time hydrocodone bitartrate Allergy HALLUCINATE Verified 10/21/22 14:56 [From Vicodin] S vancomycin Allergy Rash Verified 10/21/22 14:56 fish derived AdvReac Anaphylaxis Verified 10/21/22 14:56 morphine AdvReac HALLUCINATE Verified 10/21/22 14:56 S Family History Mother Diabetes Heart disease Hypertension High cholesterol Father Heart disease Hypertension High cholesterol CVA (cerebral vascular accident) Surgical History History of bilateral cataract extraction History of right breast biopsy History of shoulder surgery History of surgery on lower extremity History of tubal ligation Social History household members: significant other housing: apartment pets and animals: Yes pets and animals: dog(s) Smoking Status: Former smoker quit date: 10/28/19 pack-years: 25 Tobacco: How many years used: 25 second hand exposure: Yes alcohol intake: never substance use type: does not use caffeine: Yes Type: coffee Number of servings: 1 ROS ROS ED Constitutional Constitutional ED: Reports anorexia; Denies chills or fever(s) Eyes Eyes: Denies change in vision or diplopia ENT ENT ED: Denies rhinorrhea or sore throat Cardiovascular Cardiovascular: Denies chest pain or palpitations Respiratory/Chest Respiratory/Chest: Denies cough or dyspnea Gastrointestinal Gastrointestinal: Reports abdominal pain and nausea; Denies diarrhea, melena or vomiting Genitourinary Genitourinary ED: Denies dysuria or hematuria Musculoskeletal Musculoskeletal: Denies back pain or neck pain Integumentary Denies abscess or rash Neurologic Neurologic: Denies headache(s), paresthesias or weakness Psychiatric Psychiatric: Denies anxiety or suicidal thoughts EXAM Physical Exam Const Vital Signs: 10/21/22 14:25 10/21/22 16:30 10/21/22 19:05 Temperature 98.9 F Temperature Source Temporal Pulse Rate 71 48 L Respiratory Rate 14 17 18 Blood Pressure 143/77 H 175/73 H Blood Pressure Mean 99 107 Pulse Ox 95 96 Oxygen Delivery Method Room Air Room Air Room Air Positive well nourished and well developed General Appearance ED: well developed and NAD HEENT Reports moist mucous membranes normocephalic and atraumatic Eyes PERRL and EOMs intact bilaterally Neck full ROM and supple Resp normal respiratory effort and clear to auscultation bilaterally Cardio regular rate, regular rhythm and no murmurs GI non-distended GI Narrative: Moderately tender in the right lower quadrant, but the maximum area of tenderness is distal to McBurney's point, although she is tender there is well. No guarding or rebound tenderness. Negative Rovsing and Gutierrez. No other areas of abdominal tenderness. Positive obturator, positive psoas. Auscultation: normoactive bowel sounds Palpation: soft Back/Spine no CVA tenderness General Back: other FROM Extremity normal to inspection General Extremety ED: Negative for edema, pulses abnormal or tenderness General Extremity: Negative for edema or pulses abnormal Neuro oriented x3, CN's II-XII intact bilaterally and no sensory deficits noted Sensorium / Orientation: awake and alert Motor Exam: strength 5/5 throughout Skin no rashes or lesions noted and no wounds MDM MDM MDM Narrative Medical decision making narrative: Given how the patient is tender more distally I asked if she has ever had a ruptured ovarian cyst, she confirms that she did in the past and is not sure if this feels the same or not. My concern here is for appendicitis although that is in the differential as well. Therefore CT and labs were obtained while we gave her IV fluids, Zofran, fentanyl due to adverse effects from morphine. I reviewed the CT images and the report which I agree with, negative for appendicitis or any periappendiceal inflammatory abnormalities there or around the cecum at all. Given the amount of pain the patient has been in the fact she has unusual symptoms although her labs are very normal, we then obtained an ultrasound of her ovary to rule out torsion. I reviewed these images and their interpretation which I agree with, basically negative for any acute. Patient is doing well, suppose this could be some type of functional intestinal pain, I do not think it is early appendicitis. Viral gastritis with intestinal pain is in the differential as well. We will give her prescriptions for Percocet and dicyclomine and Zofran and advised close outpatient follow-up if she still symptoms after the weekend she is comfortable with that plan. Lab Data Attestation: I reviewed the patient's lab results. Labs: Laboratory Results - last 24 hr 10/21/22 10/21/22 10/21/22 15:00 15:00 16:27 WBC 3.6 L RBC 4.59 Hgb 13.7 Hct 42.0 MCV 91.5 MCH 29.8 MCHC 32.6 RDW Std Deviation 44.7 H RDW Coeff of Keo 13.3 Plt Count 186 MPV 9.2 Immature Gran % (Auto) 0.300 Neut % (Auto) 51.4 Lymph % (Auto) 38.9 [place] % (Auto) 6.4 Eos % (Auto) 2.2 Baso % (Auto) 0.8 Absolute Neuts (auto) 1.8 L Absolute Lymphs (auto) 1.39 Nucleated RBC % 0 Sodium 140 Potassium 4.5 Chloride 106 Carbon Dioxide 32.0 Anion Gap 2 L BUN 24 H Creatinine 1.07 H Estim Creat Clear Calc 49.07 Est GFR (MDRD) Af Amer 66 Est GFR (MDRD) Non-Af 55 L BUN/Creatinine Ratio 22.4 H Glucose 92 Calcium 9.2 Urine Color Straw Urine Clarity Clear Urine pH 7.0 Ur Specific Emma 1.010 Urine Protein Negative Urine Glucose (UA) Normal Urine Ketones Negative Urine Occult Blood Negative Urine Nitrite Negative Urine Bilirubin Negative Urine Urobilinogen Normal Ur Leukocyte Esterase Negative Urine RBC 0 SEEN Urine WBC 0 SEEN Ur Squamous Epith Cells 0 SEEN Urine Bacteria 0 SEEN Urine Mucus 0 SEEN Radiography Diagnostic Testing: Clinical Impression(s) from Imaging Studies Abdomen/Pelvis CT 10/21/22 15:29 IMPRESSION: 1. Nonvisualized appendix, though there is no inflammatory stranding about the cecum. 2. No acute abnormal finding in the abdomen or pelvis. Electronically Signed: Cole Maki MD at 17:11 EDT Reading Location ID and State: [facility] / [place] Tel , Service support , Transvaginal US 10/21/22 17:28 IMPRESSION: Peripheral uterine calcifications. No acute abnormal finding. Nonvisualization of both ovaries. Electronically Signed: Cole Maki MD at 18:33 EDT , Discharge Plan Triage Chief Complaint: Abd Pain Other Complaint: Nausea/Vomiting ED Provider: Rl Britt Dx/Rx/DC Orders Clinical Impression: Abdominal pain, acute, right lower quadrant Instructions: Abdominal Pain Prescriptions: New dicyclomine 10 mg capsule 20 mg PO Q6H PRN PRN (Reason: abdominal discomfort) Qty: 30 0RF oxycodone-acetaminophen [oxycodone-acetaminophen] 5-325 mg tablet 0.5 - 1 tab PO Q6H PRN PRN (Reason: Pain) 3 Days Qty: 8 0RF ondansetron [ondansetron] 4 mg tablet,disintegrating 8 mg PO Q8H PRN PRN (Reason: Nausea) Qty: 15 0RF No Action cholecalciferol (vitamin D3) 5,000 unit capsule 5,000 unit PO DAILY levocetirizine [Allergy Relief (levocetirizin)] 5 mg tablet 5 mg PO DAILY citalopram 10 mg tablet 10 mg PO DAILY levothyroxine 50 mcg tablet 50 mcg PO DAILY Brecelestetri Aerosphere 160-9-4.8 mcg/actuation HFA aerosol inhaler 2 inh inhalation BID Qty: 10.7 3RF atorvastatin 40 mg tablet 40 mg PO DAILY albuterol sulfate 90 mcg/actuation HFA aerosol inhaler 2 puff inhalation Q6H PRN (Reason: Shortness Of Breath) losartan 25 mg tablet 25 mg PO DAILY Qty: 90 3RF clopidogrel 75 MG tablet 75 mg PO DAILY 30 Days Qty: 30 0RF tramadol 50 mg tablet 50 mg PO Q8H PRN (Reason: pain) Qty: 12 0RF Primary Care Provider: Bird Ronquillo Referrals: Bird Ronquillo MD [Primary Care Provider] - 3-5 Days if not improving Disposition Disposition: Home, Self Care
[2022-10-21] MEDS: 0.9% Normal Saline 1,000 ML 1000 ML IV (15:46)
[2022-10-21] MEDS: Ondansetron 4 MG/2 ML Vial IV (15:47)
[2022-10-21] MEDS: fentaNYL 100 MCG/2 ML Ampul 50 MCG IV (15:48)
[2022-10-21 16:05] LABS: Anion Gap 2 (5-15); BUN 24 mg/dL (7-18); BUN/Creat Ratio 22.4 RATIO (10-20); Calcium,Total 9.2 mg/dL (8.5-10.1); Chloride 106 mmol/L (98-107); Creatinine, Serum 1.07 mg/dL (0.55-1.02); EST Glomerular Filtration Rate 55 mL/min (>60); Est Glom Filt Rate - Afr Amer 66 mL/min (>60); Estimated Creatinine Clearance 49.07 ml/min; Glucose 92 mg/dL (74-106); Potassium 4.5 mmol/L (3.5-5.1); Sodium Level 140 mmol/L (136-145)
[2022-10-21 16:24] LABS: Absolute Lymphocyte Count 1.39 X10^3/uL (0.83-4.51); Absolute Neutrophil Count 1.8 X10^3/uL (2.0-7.7); Basophil# 0.03 X10^3/uL; Basophil% 0.8 % (0-1); Eosinophil# 0.08 X10^3/uL; Eosinophils% 2.2 % (0-5); Hemoglobin 13.7 g/dL (12.0-15.0); Lymphocyte # 1.39 X10^3/ul (0.83-4.51); Lymphocyte % 38.9 % (19-41); Mean Corp Hgb Conc 32.6 g/dL (32-36); Mean Corpuscular Hgb 29.8 pg (27.0-32.0); Mean Corpuscular Volume 91.5 fL (81-99); Mean Platelet Vol. 9.2 fl (6.2-12.0); Monocyte# 0.23 X10^3/uL; Monocyte% 6.4 % (0-10); NRBC Flagged by Analyzer 0 % (0-5); Neutrophil # 1.83 X10^3/uL (2.7-7.7); Neutrophil % 51.4 % (47-70); Platelet Count 186 K/mm3 (150-450); RBC Distribution Width CV 13.3 % (11.6-14.6); RBC Distribution Width SD 44.7 fl (35.1-43.9); Red Blood Count 4.59 M/mm3 (4.2-5.4); White Blood Count 3.6 K/mm3 (4.4-11.0)
[2022-10-21 16:30] VITALS: RESP 17
[2022-10-21 16:35] LABS: Bacteria 0 SEEN /hpf (None Seen); Color, Urine Straw (Yellow); Glucose, Dipstick Normal (Normal); Ketone-Dipstick Negative (Negative); Leukocyte Esterase-Dipstick Negative /ul (Negative); Mucous, Urine 0 SEEN /hpf (<or=2+); Nitrite-Dipstick Negative (Negative); Occult Blood-Urine Negative /ul (Negative); Protein-Dipstick Negative (Negative); Red Blood Cells-Urine 0 SEEN /hpf (0-5); Squamous Epithelial Cells - UA 0 SEEN /hpf (5-10); Urine Bilirubin Dipstick Negative (Negative); Urine Clarity Clear (Clear); Urine Urobilinogen Normal (Normal); White Blood Cells 0 SEEN /hpf (0-5)
--- NOTE | 2022-10-21 17:28 | US_ITS ---
INDICATION: R pelvis pain EXAMINATION: Ultrasound US Transvaginal Non-OB TECHNIQUE: Transvaginal (for optimal evaluation of the adnexa) pelvic ultrasound was performed. Grayscale, spectral waveform, and color flow Doppler evaluation of the adnexa. COMPARISON: 10/21/2022 CT FINDINGS: UTERUS: Anteverted. The uterus measures 5.1 x 4.1 x 3.1 cm. There is no uterine mass. There are calcifications in the uterine periphery. The endometrial stripe measures 1.9 mm in AP diameter which is within normal limits. RIGHT OVARY: Nonvisualized. No adnexal mass. LEFT OVARY: Nonvisualized. No adnexal mass. FREE FLUID: None. US/Transvaginal Non- IMPRESSION: Peripheral uterine calcifications. No acute abnormal finding. Nonvisualization of both ovaries. Electronically Signed: Cole Maki MD at 18:33 EDT ,
[2022-10-21 19:05] VITALS: BP 175/73; PULSE 48; RESP 18; O2SAT 96
[2022-10-21] MEDS: oxyCODONE 5 MG Tablet 2.5 MG PO (19:49)
[2022-10-21] MEDS: Dicyclomine 10 MG Capsule 20 MG PO (19:49)
[2022-10-21 19:51] VITALS: BP 173/77; PULSE 81; RESP 20; O2SAT 95
== END 2022-10-21 20:01 | disposition home or self-care (01) ==
PROVIDERS: Emergency Provider Emergency Medicine; PCP Family Medicine; Referring Provider Family Medicine; Visit Provider Emergency Medicine
DX: R10.31 Right lower quadrant pain (principal); I25.10 Atherosclerotic heart disease of native coronary artery without angina pectoris; I25.2 Old myocardial infarction; Z87.891 Personal history of nicotine dependence; Z86.73 Personal history of transient ischemic attack (TIA), and cerebral infarction without residual deficits
CPT/HCPCS: 74177; 76830; 80048; 81001; 85025; 96361; 96374; 96375; 99284; J7030; Q9967; A4216; J2405

== ENCOUNTER 2022-11-02 23:39 | Emergency (ER) | payer MEDICARE, MEDICAID, SELFPAY ==
[2022-11-02 23:40] VITALS: BP 163/74; PULSE 73; RESP 16; TEMP 35.9; O2SAT 95; BMI 23.8
--- NOTE | 2022-11-03 00:04 | RAD_ITS ---
INDICATION: chest pain EXAMINATION/TECHNIQUE: X-RAY - frontal and lateral views of chest COMPARISON: Chest x-ray from 09/03/2022 FINDINGS: LINES/DEVICES: None. LUNGS: Hyperexpanded lungs again noted. No pulmonary edema or focal airspace consolidation. No sizable pleural effusion. No detectable pneumothorax. MEDIASTINUM AND CARDIOVASCULAR STRUCTURES: Heart normal size. Atherosclerotic calcifications along aorta. BONES AND SOFT TISSUES: Skeletal degenerative changes. RAD/Chest PA and Lateral IMPRESSION: COPD and atherosclerotic disease Electronically Signed: Joey Solorzano MD at 1:04 EDT ,
[2022-11-03 00:15] LABS: Absolute Lymphocyte Count 1.22 X10^3/uL (0.83-4.51); Absolute Neutrophil Count 5.7 X10^3/uL (2.0-7.7); Basophil# 0.04 X10^3/uL; Basophil% 0.5 % (0-1); Eosinophil# 0.07 X10^3/uL; Hematocrit 46.3 % (37-47); Hemoglobin 15.3 g/dL (12.0-15.0); Lymphocyte # 1.22 X10^3/ul (0.83-4.51); Lymphocyte % 16.6 % (19-41); Mean Corpuscular Hgb 30.3 pg (27.0-32.0); Mean Corpuscular Volume 91.7 fL (81-99); Mean Platelet Vol. 9.2 fl (6.2-12.0); Monocyte# 0.26 X10^3/uL; Monocyte% 3.5 % (0-10); NRBC Flagged by Analyzer 0 % (0-5); Neutrophil # 5.74 X10^3/uL (2.7-7.7); Neutrophil % 78.1 % (47-70); Platelet Count 221 K/mm3 (150-450); RBC Distribution Width CV 13.3 % (11.6-14.6); RBC Distribution Width SD 44.9 fl (35.1-43.9); Red Blood Count 5.05 M/mm3 (4.2-5.4); White Blood Count 7.4 K/mm3 (4.4-11.0)
--- NOTE | 2022-11-03 00:19 | EKG12_ITS ---
Test Reason : CP Blood Pressure : / mmHG Vent. Rate : 065 BPM Atrial Rate : 065 BPM P-R Int : 166 ms QRS Dur : 074 ms QT Int : 410 ms P-R-T Axes : 073 057 060 degrees QTc Int : 426 ms Normal sinus rhythm Normal ECG Confirmed by MEL SHERMAN, CHAPIN ([id number]), editor farm journal ASHLEY TORRES ([id number]) on 11/04/2022 8:08:39 AM Referred By: MIC Confirmed By:CHAPIN LEAL MD
[2022-11-03 00:32] LABS: D-Dimer Quantitative (DVT/PE) 1.43 FEU/ug/m (0.27-0.49)
--- NOTE | 2022-11-03 00:33 | CT_ITS ---
INDICATION: RUQ pain, nausea for 3 hours EXAMINATION: CT Abdomen And Pelvis W/ Contrast Injection TECHNIQUE: Helically acquired images were obtained of the abdomen and pelvis following IV contrast. 2-D reconstructions reviewed. A radiation dose optimization technique was used for this scan. IV Contrast dosage and agent: 100 cc Isovue-370 Oral contrast: None. COMPARISON: Contrast-enhanced CT abdomen and pelvis from 10/21/2022. There are several other prior CT abdomen and pelvis exams. FINDINGS: LOWER CHEST: Hyperexpanded lungs compatible COPD. Small hiatal hernia again noted. Heart size within normal limits. LIVER: Several simple appearing hepatic cysts are stable with no additional follow-up recommended, largest measuring 1.6 cm. No concerning lesion. GALLBLADDER AND BILIARY TREE: No calcified gallstones identified. No gallbladder wall edema demonstrated. No significant biliary ductal dilation. PANCREAS: No discrete mass or peripancreatic edema. SPLEEN: Normal size without focal cystic or solid mass. ADRENAL GLANDS: Unremarkable. KIDNEYS AND URETERS: Normal renal size and position. No perinephric edema or hydronephrosis. No concerning lesion. Stable small simple appearing 12 mm left renal cyst requiring no additional follow-up. PERITONEUM: No significant free fluid. No peritoneal free air detected. RETROPERITONEUM: No retroperitoneal mass or pathologic fluid collection. BOWEL: Normal appendix posterior to cecum within right lower quadrant. No bowel obstruction or significant bowel thickening. Scattered colonic diverticula. No focal inflammatory change. LYMPH NODES: No enlarged mesenteric or retroperitoneal lymph nodes. VESSELS: Atherosclerosis with no abdominal aortic aneurysm. URINARY BLADDER: Unremarkable as visualized. REPRODUCTIVE ORGANS: No pelvic masses. ABDOMINAL WALL: No acute findings or significant hernia defect. BONES: Stable skeletal degenerative changes with no acute osseous abnormality. CT/Abdomen/Pelvis W IV Cont ONLY IMPRESSION: 1. Stable exam with no evidence of acute intra-abdominal abnormality or etiology for right upper quadrant symptoms demonstrated. 2. Colonic diverticulosis with no evidence of diverticulitis. 3. COPD, atherosclerotic disease and other nonurgent findings within body of report. Electronically Signed: Joey Solorzano MD at 1:46 EDT ,
--- NOTE | 2022-11-03 00:33 | CT_ITS ---
STUDY: CTA CHEST REASON FOR EXAM: Female, 67 years old with chest pain with elevated d-dimer. TECHNIQUE: CT angiogram of chest was performed with the intravenous administration of 100 ml Isovue-370. Post-processing of the angiographic images was performed, with MIP and MPR reconstructions. Individualized dose optimization techniques were used for this CT. COMPARISON: Concurrent contrast-enhanced CT abdomen and pelvis. Unenhanced chest CT from 08/26/2021. FINDINGS: PULMONARY ARTERIES: No pulmonary arterial filling defects identified. AORTA AND VISUALIZED GREAT VESSELS: Mild atherosclerosis with no thoracic aortic aneurysm or dissection. Great vessels are patent. HEART AND PERICARDIUM: Heart size within normal limits. No significant pericardial effusion. MEDIASTINUM AND PEDRO LUIS: No mediastinal or hilar adenopathy. Small hiatal hernia. LUNGS, PLEURA AND LARGE AIRWAYS: Hyperexpanded and emphysematous lungs again noted with mild biapical scarring. 11 x 5.5 mm nodular scarlike opacity within superior right upper lobe appears slightly more well-defined and circumscribed compared with prior exam (ill-defined grossly 10 x 5 mm nodular component on prior exam). Stable 6 mm discoid, subpleural scarlike opacity within anterior, superior right middle lobe along minor fissure. Stable punctate subpleural nodule lateral left lower lobe and punctate right lower lobe calcified granuloma. No pulmonary consolidation. No pneumothorax or pleural effusion. BONES: Intact with no suspicious osseous lesion. CHEST WALL: No chest wall mass or acute findings. VISUALIZED ABDOMEN: Small simple appearing hepatic cysts again noted. CT/CTA Chest W/WO Contrast IMPRESSION: 1. Pulmonary emphysema with slightly more prominent and well-defined 11 mm nodular opacity within superior right upper lobe. Possible remnant scar but small developing pulmonary neoplasm also in the differential. Recommend further evaluation with PET/CT or tissue sampling, versus repeat CT examination in 3 months (per Fleischner Society guidelines). 2. No pulmonary embolus or other acute intrathoracic abnormality. 3. Other stable and nonurgent findings within body of report. Electronically Signed: Joey Solorzano MD at 1:58 EDT ,
[2022-11-03 00:37] LABS: AST(SGOT) 27 U/L (15-37); Alanine Aminotransfer ALT/SGPT 33 U/L (13-56); Albumin, Serum 4.2 g/dL (3.2-5.0); Alkaline Phosphatase 78 U/L (45-117); Anion Gap 8 (5-15); BUN 17 mg/dL (7-18); BUN/Creat Ratio 13.9 RATIO (10-20); Calcium,Total 9.4 mg/dL (8.5-10.1); Chloride 108 mmol/L (98-107); Creatinine, Serum 1.22 mg/dL (0.55-1.02); EST Glomerular Filtration Rate 47 mL/min (>60); Est Glom Filt Rate - Afr Amer 57 mL/min (>60); Estimated Creatinine Clearance 44.71 ml/min; Glucose 109 mg/dL (74-106); Lipase 21 U/L (13-75); Magnesium 2.2 mg/dL (1.6-2.6); Potassium 3.4 mmol/L (3.5-5.1); Protein, Total 8.2 g/dL (6.4-8.2); Sodium Level 142 mmol/L (136-145); Troponin-I HS 8 pg/mL (3.0-54.0)
[2022-11-03] MEDS: Ketorolac 15 MG/ML Vial IV (00:47)
[2022-11-03] MEDS: 0.9% Normal Saline 1,000 ML 999 ML IV (00:47)
--- NOTE | 2022-11-03 00:47 | EDS_ITS ---
HPI History of Present Illness Chief Complaint: Chest Pain Informant: patient and EMS Narrative Narrative: Patient is a 67-year-old female with past medical history of coronary artery disease as well as CVA COPD without need for chronic oxygen. She states that ro ughly 4 hours prior to arrival she developed some lower chest/midsternal discomfort which wrapped around towards her back and up towards her left-sided neck. She states that there was no trauma or excessive activity and she denies any fevers chills or excessive coughing. She states she called EMS as the pain had been persistent for multiple hours and despite receiving aspirin and nitro per EMS she did not have improvement of her symptoms. [facility] Medical History Abdominal pain Abnormal Holter monitor finding Acute dysfunction of both eustachian tubes Acute seasonal allergic rhinitis Acute serous otitis media Ambulates with cane Anxiety Anxiety disorder Arthritis Atherosclerotic heart disease of [place] coronary artery without angina pectoris Bronchitis Bruising CAD (coronary artery disease) Chest pain Constipation COPD (chronic obstructive pulmonary disease) Depression Diaphragm paralysis Difficulty chewing Difficulty swallowing Easy bruising Essential hypertension Former smoker Fuchs' corneal dystrophy Gastric reflux High cholesterol History of cerebrovascular disease History of CVA (cerebrovascular accident) History of echocardiogram History of heart attack History of hiatal hernia History of IBS History of irregular heartbeat History of renal disease History of stress test HTN (hypertension) Hypothyroidism Hypoxia Internal impingement of right shoulder Mixed hyperlipidemia Restless legs Shortness of breath on exertion Sinus pause Skin tear Stroke/cerebrovascular accident Thigh pain Thyroid disease Traumatic avulsion of nail plate of toe Wears dentures Wears glasses Home Medications cholecalciferol (vitamin D3) 125 mcg (5,000 unit) capsule 5,000 unit PO DAILY SUPPLEMENT 08/14/18 [History Last Taken 06/07/22] levocetirizine 5 mg tablet (Allergy Relief (levocetirizine)) 5 mg PO DAILY ALLERGIES 10/31/19 [History Last Taken 07/13/22] citalopram 10 mg tablet 10 mg PO DAILY DEPRESSION 08/17/21 [History Last Taken 06/07/22] levothyroxine 50 mcg tablet 50 mcg PO DAILY THYROID 08/17/21 [History Last Taken 06/07/22] clopidogrel 75 mg tablet 75 mg PO DAILY BLOOD THINNER 30 days #30 tabs 06/08/22 [Rx Last Taken 07/13/22] albuterol sulfate 90 mcg/actuation aerosol inhaler 2 puff inhalation Q6H PRN Shortness Of Breath 07/01/22 [History Last Taken Unknown] atorvastatin 40 mg tablet 40 mg PO DAILY 07/01/22 [History Last Taken Unknown] budesonide 160 mcg-glycopyr 9 mcg-formot 4.8 mcg/actuation HFA inhaler (Breztri Aerosphere) 2 inh inhalation BID #10.7 grams 09/13/22 [Rx Last Taken Unknown] losartan 25 mg tablet 25 mg PO DAILY #90 tabs 09/29/22 [Rx Last Taken Unknown] dicyclomine 10 mg capsule 20 mg PO Q6H PRN PRN abdominal discomfort #30 CAPSULES 10/21/22 [Rx Last Taken Unknown] ondansetron 4 mg disintegrating tablet 8 mg PO Q8H PRN PRN Nausea #15 tabs 10/21/22 [Rx Last Taken Unknown] Allergy/AdvReac Type Severity Reaction Status Date / Time hydrocodone bitartrate Allergy HALLUCINATE Verified 11/02/22 23:49 [From Vicodin] S vancomycin Allergy Rash Verified 11/02/22 23:49 fish derived AdvReac Anaphylaxis Verified 11/02/22 23:49 morphine AdvReac HALLUCINATE Verified 11/02/22 23:49 S Family History Mother Diabetes Heart disease Hypertension High cholesterol Father Heart disease Hypertension High cholesterol CVA (cerebral vascular accident) Surgical History History of bilateral cataract extraction History of right breast biopsy History of shoulder surgery History of surgery on lower extremity History of tubal ligation Social History household members: significant other housing: apartment pets and animals: Yes pets and animals: dog(s) Smoking Status: Former smoker quit date: 10/28/19 pack-years: 25 Tobacco: How many years used: 25 second hand exposure: Yes alcohol intake: never substance use type: does not use caffeine: Yes Type: coffee Number of servings: 1 ROS ROS ED Constitutional Constitutional ED: Denies chills or fever(s) ENT ENT ED: Denies sore throat Cardiovascular Cardiovascular: Reports chest pain; Denies palpitations or racing heartbeat Respiratory/Chest Respiratory/Chest: Denies cough or dyspnea Gastrointestinal Gastrointestinal: Reports abdominal pain; Denies diarrhea, nausea or vomiting Genitourinary Genitourinary ED: Denies dysuria Musculoskeletal Musculoskeletal: Reports back pain; Denies myalgias Integumentary Denies rash Neurologic Neurologic: Denies headache(s) Hematologic/Lymphatic Hematologic/Lymphatic: Denies easy bleeding or easy bruising EXAM Physical Exam Const Vital Signs: 11/02/22 23:40 11/03/22 00:52 11/03/22 01:00 Temperature 96.6 F L Temperature Source Temporal Pulse Rate 73 71 75 Respiratory Rate 16 16 16 Blood Pressure 163/74 H 155/80 H 152/69 H Blood Pressure Mean 103 105 96 Pulse Ox 95 98 95 Oxygen Delivery Method Room Air 11/03/22 02:00 11/03/22 03:00 Temperature Temperature Source Pulse Rate 69 66 Respiratory Rate 16 20 H Blood Pressure 146/67 H 150/68 H Blood Pressure Mean 93 95 Pulse Ox 91 91 Oxygen Delivery Method Positive well nourished and well developed General Appearance ED: well developed HEENT Reports moist mucous membranes HEENT Narrative: No tongue or lip swelling no oral lesions no airway edema or compromise Eyes PERRL and EOMs intact bilaterally General Eye ED: Negative for scleral icterus Neck supple and no JVD Chest Wall palpation of chest normal Chest Narrative: No bony deformity or crepitance Resp Resp Narrative: Breath sounds are diminished throughout with faint diffuse expiratory wheeze consistent with history of COPD but otherwise no nasal flaring retractions tachypnea or accessory muscle use Cardio regular rate and regular rhythm Rate: other Other Details: Radial pulses are plus 2 out of 4 bilaterally are equal and symmetric GI non-distended and no masses GI Narrative: Pain with palpation in the right upper quadrant and midepigastric region but greatest in the right upper quadrant. No voluntary guarding or rigidity and negative Gutierrez sign. No pulsatile mass or fluid wave Auscultation: normoactive bowel sounds Palpation: soft Back/Spine no CVA tenderness Extremity normal to inspection Extremity Narrative: No asymmetric edema no pitting edema negative Homans' sign bilaterally Neuro oriented x3 and CN's II-XII intact bilaterally Sensorium / Orientation: alert Psych mental status grossly normal Skin no rashes or lesions noted General Skin Exam: Negative for jaundice MDM MDM MDM Narrative Medical decision making narrative: Patient arrived to the ER with stable vitals. She reported atypical chest pain that been constant for over 4 hours. On exam the seem to be more right upper quadrant and midepigastric pain then true chest discomfort. Differential diagnosis is acute coronary syndrome versus cardiac dysrhythmia versus pneumonia versus pneumothorax versus pancreatitis versus pulmonary embolus versus gallbladder dysfunction/biliary colic. Secondary to his basic labs were obtained. Initial troponin was normal at 8 and labs otherwise did not show any clinically significant changes other than her elevated D-dimer at 1.43. With her report of lower chest pain that was worse inspiration this is possible for a pulmonary embolus so a CTA of the chest was obtained and this was taken through the abdomen as she had right upper quadrant pain on exam. The images revealed no acute PE or dissection or pneumonia or pneumothorax or signs of acute cholecystitis. The 2-hour troponin did elevate to 24 which is under the 20 point cutoff for elevation but based on his increase of 16 points I did elect to perform a 3-hour troponin which is now downtrending at 20. On reevaluation the patient has had near complete improvement of her pain after 1 dose of Toradol. At this time as the troponin is staying flat her imaging studies show no acute infectious or obstructive pathology and she had improvement of pain she is otherwise safe for discharge History & Record Review Discussion w/independent historian: EMS personnel and Patient Lab Data Attestation: I reviewed the patient's lab results. Labs: Laboratory Results - last 24 hr 11/02/22 11/02/22 11/02/22 23:40 23:40 23:40 WBC 7.4 RBC 5.05 Hgb 15.3 H Hct 46.3 MCV 91.7 MCH 30.3 MCHC 33.0 RDW Std Deviation 44.9 H RDW Coeff of Keo 13.3 Plt Count 221 MPV 9.2 Immature Gran % (Auto) 0.300 Neut % (Auto) 78.1 H Lymph % (Auto) 16.6 L [place] % (Auto) 3.5 Eos % (Auto) 1.0 Baso % (Auto) 0.5 Absolute Neuts (auto) 5.7 Absolute Lymphs (auto) 1.22 Nucleated RBC % 0 D-Dimer Quant (PE/DVT) 1.43 H* Sodium 142 Potassium 3.4 L Chloride 108 H Carbon Dioxide 26.0 Anion Gap 8 BUN 17 Creatinine 1.22 H Estim Creat Clear Calc 44.71 Est GFR (MDRD) Af Amer 57 L Est GFR (MDRD) Non-Af 47 L BUN/Creatinine Ratio 13.9 Glucose 109 H Calcium 9.4 Magnesium 2.2 Total Bilirubin 0.50 Direct Bilirubin 0.20 AST 27 ALT 33 Alkaline Phosphatase 78 Troponin I High Sens 8 Total Protein 8.2 Albumin 4.2 Globulin 4.0 Lipase 21 11/03/22 11/03/22 01:43 02:43 WBC RBC Hgb Hct MCV MCH MCHC RDW Std Deviation RDW Coeff of Keo Plt Count MPV Immature Gran % (Auto) Neut % (Auto) Lymph % (Auto) [place] % (Auto) Eos % (Auto) Baso % (Auto) Absolute Neuts (auto) Absolute Lymphs (auto) Nucleated RBC % D-Dimer Quant (PE/DVT) Sodium Potassium Chloride Carbon Dioxide Anion Gap BUN Creatinine Estim Creat Clear Calc Est GFR (MDRD) Af Amer Est GFR (MDRD) Non-Af BUN/Creatinine Ratio Glucose Calcium Magnesium Total Bilirubin Direct Bilirubin AST ALT Alkaline Phosphatase Troponin I High Sens 24 20 Total Protein Albumin Globulin Lipase Radiography Diagnostic Testing: Clinical Impression(s) from Imaging Studies Chest X-Ray 11/03/22 00:04 IMPRESSION: COPD and atherosclerotic disease Electronically Signed: Joey Solorzano MD at 1:04 EDT , Abdomen/Pelvis CT 11/03/22 00:33 IMPRESSION: 1. Stable exam with no evidence of acute intra-abdominal abnormality or etiology for right upper quadrant symptoms demonstrated. 2. Colonic diverticulosis with no evidence of diverticulitis. 3. COPD, atherosclerotic disease and other nonurgent findings within body of report. Electronically Signed: Joey Solorzano MD at 1:46 EDT , Chest CTA 11/03/22 00:33 IMPRESSION: 1. Pulmonary emphysema with slightly more prominent and well-defined 11 mm nodular opacity within superior right upper lobe. Possible remnant scar but small developing pulmonary neoplasm also in the differential. Recommend further evaluation with PET/CT or tissue sampling, versus repeat CT examination in 3 months (per Fleischner Society guidelines). 2. No pulmonary embolus or other acute intrathoracic abnormality. 3. Other stable and nonurgent findings within body of report. Electronically Signed: Joey Solorzano MD at 1:58 EDT , 2 view chest x-ray as interpreted by the emergency medicine physician reveals hyperinflated lungs consistent with COPD but otherwise no pleural effusion pneu mothorax or infiltrate Discharge Plan Triage Chief Complaint: Chest Pain ED Provider: Kunal Bray Dx/Rx/DC Orders Clinical Impression: Nonspecific chest pain, Essential hypertension, 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 Instructions: ED Chest Pain, Uncertain Cause Prescriptions: No Action cholecalciferol (vitamin D3) 5,000 unit capsule 5,000 unit PO DAILY levocetirizine [Allergy Relief (levocetirizin)] 5 mg tablet 5 mg PO DAILY citalopram 10 mg tablet 10 mg PO DAILY levothyroxine 50 mcg tablet 50 mcg PO DAILY Breztri Aerosphere 160-9-4.8 mcg/actuation HFA aerosol inhaler 2 inh inhalation BID Qty: 10.7 3RF atorvastatin 40 mg tablet 40 mg PO DAILY albuterol sulfate 90 mcg/actuation HFA aerosol inhaler 2 puff inhalation Q6H PRN (Reason: Shortness Of Breath) losartan 25 mg tablet 25 mg PO DAILY Qty: 90 3RF clopidogrel 75 MG tablet 75 mg PO DAILY 30 Days Qty: 30 0RF dicyclomine 10 mg capsule 20 mg PO Q6H PRN PRN (Reason: abdominal discomfort) Qty: 30 0RF ondansetron [ondansetron] 4 mg tablet,disintegrating 8 mg PO Q8H PRN PRN (Reason: Nausea) Qty: 15 0RF Primary Care Provider: Bird Ronquillo Referrals: Bird Ronquillo MD [Primary Care Provider] - Disposition Disposition: Home, Self Care
[2022-11-03 00:52] VITALS: BP 155/80; PULSE 71; RESP 16; O2SAT 98
[2022-11-03 01:00] VITALS: BP 152/69; PULSE 75; RESP 16; O2SAT 95
[2022-11-03 02:00] VITALS: BP 146/67; PULSE 69; RESP 16; O2SAT 91
[2022-11-03 02:11] LABS: Troponin-I HS 24 pg/mL (3.0-54.0)
[2022-11-03 03:00] VITALS: BP 150/68; PULSE 66; RESP 20; O2SAT 91
[2022-11-03 03:05] LABS: Troponin-I HS 20 pg/mL (3.0-54.0)
[2022-11-03 03:33] VITALS: BP 150/68
== END 2022-11-03 03:34 | disposition home or self-care (01) ==
PROVIDERS: Emergency Provider Emergency Medicine; PCP Family Medicine; Visit Provider Emergency Medicine
DX: R07.9 Chest pain, unspecified (principal); J44.9 Chronic obstructive pulmonary disease, unspecified; I10 Essential (primary) hypertension; I25.10 Atherosclerotic heart disease of native coronary artery without angina pectoris; I25.2 Old myocardial infarction; Z86.73 Personal history of transient ischemic attack (TIA), and cerebral infarction without residual deficits; Z79.899 Other long term (current) drug therapy; Z87.891 Personal history of nicotine dependence
CPT/HCPCS: 71046; 71275; 74177; 80048; 80076; 83690; 83735; 84484; 85025; 85379; 93005; 96361; 96374; 99285; J7030; Q9967; A4216

== ENCOUNTER 2022-11-16 19:00 | Emergency (ER) | payer MEDICARE, MEDICAID, SELFPAY ==
[2022-11-16 19:02] VITALS: BP 143/79; PULSE 81; RESP 14; TEMP 36.1; O2SAT 96; BMI 26.1
--- NOTE | 2022-11-16 19:24 | ED.VIS.BACK ---
HPI History of Present Illness Chief Complaint: Back Detail of Chief Complaint: Back pain Informant: patient Narrative Narrative: Patient presents with back pain that started 3 weeks ago. She denies any injury. Pain involves mostly the mid to the right low back. At times pain radiating down her right leg. She denies weakness to extremities. She denies change in bowel or bladder function. Patient states she has been seen in urgent care and was started on steroids but that did not help. Patient been seen by chiropractor and that did not seem to help. Patient has not had any imaging. She has not had any trauma. She denies urinary symptoms other than maybe some mild frequency. She denies fever or recent illness. [facility] Medical History Abdominal pain Abnormal Holter monitor finding Acute dysfunction of both eustachian tubes Acute seasonal allergic rhinitis Acute serous otitis media Ambulates with cane Anxiety Anxiety disorder Arthritis Atherosclerotic heart disease of [place] coronary artery without angina pectoris Bronchitis Bruising CAD (coronary artery disease) Chest pain Constipation COPD (chronic obstructive pulmonary disease) Depression Diaphragm paralysis Difficulty chewing Difficulty swallowing Easy bruising Essential hypertension Former smoker Fuchs' corneal dystrophy Gastric reflux High cholesterol History of cerebrovascular disease History of CVA (cerebrovascular accident) History of echocardiogram History of heart attack History of hiatal hernia History of IBS History of irregular heartbeat History of renal disease History of stress test HTN (hypertension) Hypothyroidism Hypoxia Internal impingement of right shoulder Mixed hyperlipidemia Restless legs Shortness of breath on exertion Sinus pause Skin tear Stroke/cerebrovascular accident Thigh pain Thyroid disease Traumatic avulsion of nail plate of toe Wears dentures Wears glasses Home Medications cholecalciferol (vitamin D3) 125 mcg (5,000 unit) capsule 5,000 unit PO DAILY SUPPLEMENT 08/14/18 [History Last Taken 06/07/22] levocetirizine 5 mg tablet (Allergy Relief (levocetirizine)) 5 mg PO DAILY ALLERGIES 10/31/19 [History Last Taken 07/13/22] citalopram 10 mg tablet 10 mg PO DAILY DEPRESSION 08/17/21 [History Last Taken 06/07/22] levothyroxine 50 mcg tablet 50 mcg PO DAILY THYROID 08/17/21 [History Last Taken 06/07/22] clopidogrel 75 mg tablet 75 mg PO DAILY BLOOD THINNER 30 days #30 tabs 06/08/22 [Rx Last Taken 07/13/22] albuterol sulfate 90 mcg/actuation aerosol inhaler 2 puff inhalation Q6H PRN Shortness Of Breath 07/01/22 [History Last Taken Unknown] atorvastatin 40 mg tablet 40 mg PO DAILY 07/01/22 [History Last Taken Unknown] budesonide 160 mcg-glycopyr 9 mcg-formot 4.8 mcg/actuation HFA inhaler (Breztri Aerosphere) 2 inh inhalation BID #10.7 grams 09/13/22 [Rx Last Taken Unknown] losartan 25 mg tablet 25 mg PO DAILY #90 tabs 09/29/22 [Rx Last Taken Unknown] dicyclomine 10 mg capsule 20 mg PO Q6H PRN PRN abdominal discomfort #30 CAPSULES 10/21/22 [Rx Last Taken Unknown] ondansetron 4 mg disintegrating tablet 8 mg PO Q8H PRN PRN Nausea #15 tabs 10/21/22 [Rx Last Taken Unknown] oxycodone-acetaminophen 5 mg-325 mg tablet 1 tab PO Q6H PRN PRN pain 5 days #20 TABLETS 11/16/22 [Rx Last Taken Unknown] Allergy/AdvReac Type Severity Reaction Status Date / Time hydrocodone bitartrate Allergy HALLUCINATE Verified 11/02/22 23:49 [From Vicodin] S piperacillin [From Zosyn] Allergy Hives Verified 11/16/22 19:38 tazobactam [From Zosyn] Allergy Hives Verified 11/16/22 19:38 vancomycin Allergy Rash Verified 11/02/22 23:49 fish derived AdvReac Anaphylaxis Verified 11/02/22 23:49 morphine AdvReac HALLUCINATE Verified 11/02/22 23:49 S Family History Mother Diabetes Heart disease Hypertension High cholesterol Father Heart disease Hypertension High cholesterol CVA (cerebral vascular accident) Surgical History History of bilateral cataract extraction History of right breast biopsy History of shoulder surgery History of surgery on lower extremity History of tubal ligation Social History household members: significant other housing: apartment pets and animals: Yes pets and animals: dog(s) Smoking Status: Former smoker quit date: 10/28/19 pack-years: 25 Tobacco: How many years used: 25 second hand exposure: Yes alcohol intake: never substance use type: does not use caffeine: Yes Type: coffee Number of servings: 1 ROS ROS ED Review of Systems ROS Unobtainable: other Constitutional Constitutional ED: Reports lethargy; Denies chills, fever(s), sweats or weight loss Eyes Eyes: Denies blurry vision, change in vision or diplopia ENT ENT ED: Denies rhinorrhea or sore throat Cardiovascular Cardiovascular: Denies chest pain, orthopnea or racing heartbeat Respiratory/Chest Respiratory/Chest: Denies cough, dyspnea, dyspnea on exertion, orthopnea or sputum Gastrointestinal Gastrointestinal: Denies abdominal pain, diarrhea, nausea or vomiting Genitourinary Genitourinary ED: Denies dysuria, hematuria or urinary frequency Musculoskeletal Musculoskeletal: Reports back pain; Denies arthralgias, myalgias or neck pain Integumentary Denies abscess, Abrasions or rash Neurologic Neurologic: Denies headache(s) or weakness Psychiatric Psychiatric: Denies anxiety, depression or suicidal thoughts Endocrine Endocrinology: Denies polydipsia, polyphagia or polyuria Hematologic/Lymphatic Hematologic/Lymphatic: Denies easy bleeding, easy bruising or lymphadenopathy Allergic/Immunologic Allergic/Immunologic ED: Denies mouth swelling, tongue swelling or urticaria EXAM Physical Exam Const Vital Signs: 11/16/22 19:02 Temperature 97 F L Temperature Source Temporal Pulse Rate 81 Respiratory Rate 14 Blood Pressure 143/79 H Blood Pressure Mean 100 Pulse Ox 96 Oxygen Delivery Method Room Air Positive well nourished and well developed General Appearance ED: well developed and NAD HEENT Reports TM's clear and moist mucous membranes normocephalic and atraumatic; Negative for trauma or tenderness Tympanic Membrane ED: Yes TM's clear Eyes PERRL and EOMs intact bilaterally General Eye ED: Negative for pale conjunctiva or scleral icterus Neck no lymphadenopathy, supple and no JVD General: Negative for tenderness Chest Wall inspection of chest normal and palpation of chest normal Chest: Negative for tenderness Resp normal respiratory effort and clear to auscultation bilaterally Effort and Inspection: Negative for respiratory distress or pain with movement Auscultation: Negative for rhonchi, wheezes or diminished lung sounds Cardio regular rate, regular rhythm, S1 normal heart sound, S2 normal heart sound and no murmurs Peripheral Pulses: pulses 2+ throughout GI normal to inspection, nondistended, normoactive bowel sounds, soft to palpation, non-tender, non-distended and no masses Back/Spine no CVA tenderness and no thoracic nor lumbar tenderness Back/Spine Narrative: Tenderness over the right lumbar paraspinal musculature and thoracic paraspinal musculature. Patient has a positive straight leg raise on the right about 50 degrees. Normal L5 extension bilaterally. Deep tendon reflexes are plus 2 out of 4 bilaterally at the patella and Achilles. Patient has normal L5 extension bilaterally. Patient has normal sensation to light touch Extremity normal to inspection General Extremety ED: Negative for edema General Extremity: Negative for edema Neuro oriented x3, CN's II-XII intact bilaterally, no sensory deficits noted and gait normal Sensorium / Orientation: awake, alert, oriented to person, oriented to place and oriented to time Motor Exam: strength 5/5 throughout and strength abnormal Psych mental status grossly normal Skin no rashes or lesions noted and no wounds MDM MDM MDM Narrative Medical decision making narrative: Patient presents with back pain that she has had for 3 weeks that is nontraumatic. She does describe some pain radiating down her right leg at times. In the differential would be lumbar radiculopathy versus kidney stone versus UTI versus possibly PE. Patient had an IV line established. She had a CBC with differential that was normal. D-dimer was elevated 1.13. Urinalysis was normal. CTA of the chest was negative for PE or dissection. She had some nodules in the right upper lobe. Chemistries were unremarkable. CT scan of the abdomen pelvis also obtained showed no evidence of kidney stones or acute disease process. This time clinically I suspect she may have a lumbar radiculopathy. Patient will be given a prescription for Percocet. She did have 1 dose of Percocet in the department had good pain relief with that. She will be referred to Dr. Burton for follow-up. She may need further imaging such as possibly MRI to evaluate further. There are no red flag symptoms of cauda equina. Patient advised to return if worsening pain, weakness in extremities, change in bowel or bladder function, or condition worsening way. Patient was made aware of the nodular densities in the right upper lobe and she is aware of them and states she is been seeing a lung doctor for them. Patient no longer smokes but does have history of COPD. She will follow-up with her lung specialist regarding these findings. Lab Data Attestation: I reviewed the patient's lab results. Labs: Laboratory Results - last 24 hr 11/16/22 11/16/22 11/16/22 19:10 19:33 19:33 WBC 5.1 RBC 4.60 Hgb 13.8 Hct 43.1 MCV 93.7 MCH 30.0 MCHC 32.0 RDW Std Deviation 46.4 H RDW Coeff of Keo 13.5 Plt Count 197 MPV 8.7 Immature Gran % (Auto) 0.200 Neut % (Auto) 60.6 Lymph % (Auto) 29.8 [place] % (Auto) 6.8 Eos % (Auto) 1.6 Baso % (Auto) 1.0 Absolute Neuts (auto) 3.1 Absolute Lymphs (auto) 1.53 Nucleated RBC % 0 D-Dimer Quant (PE/DVT) 1.13 H* Sodium Potassium Chloride Carbon Dioxide Anion Gap BUN Creatinine Estim Creat Clear Calc Est GFR (MDRD) Af Amer Est GFR (MDRD) Non-Af BUN/Creatinine Ratio Glucose Calcium Urine Color Yellow Urine Clarity Sl. Cloudy Urine pH 6.0 Ur Specific [place] 1.025 Urine Protein 15 H Urine Glucose (UA) Normal Urine Ketones Negative Urine Occult Blood 10 H Urine Nitrite Negative Urine Bilirubin Negative Urine Urobilinogen Normal Ur Leukocyte Esterase Negative Urine RBC 0 SEEN Urine WBC 0 SEEN Ur Squamous Epith Cells 0 SEEN Urine Bacteria 0 SEEN Urine Mucus 0 SEEN 11/16/22 19:33 WBC RBC Hgb Hct MCV MCH MCHC RDW Std Deviation RDW Coeff of Keo Plt Count MPV Immature Gran % (Auto) Neut % (Auto) Lymph % (Auto) [place] % (Auto) Eos % (Auto) Baso % (Auto) Absolute Neuts (auto) Absolute Lymphs (auto) Nucleated RBC % D-Dimer Quant (PE/DVT) Sodium 142 Potassium 3.9 Chloride 105 Carbon Dioxide 31.0 Anion Gap 6 BUN 23 H Creatinine 1.09 H Estim Creat Clear Calc 44.43 Est GFR (MDRD) Af Amer 65 Est GFR (MDRD) Non-Af 54 L BUN/Creatinine Ratio 21.1 H Glucose 88 Calcium 9.3 Urine Color Urine Clarity Urine pH Ur Specific [place] Urine Protein Urine Glucose (UA) Urine Ketones Urine Occult Blood Urine Nitrite Urine Bilirubin Urine Urobilinogen Ur Leukocyte Esterase Urine RBC Urine WBC Ur Squamous Epith Cells Urine Bacteria Urine Mucus Radiography Diagnostic Testing: Clinical Impression(s) from Imaging Studies Abdomen/Pelvis CT 11/16/22 20:11 IMPRESSION: Nonspecific gastric distention and mildly distended proximal loops of small bowel without evidence for small bowel obstruction possibly representing focal ileus. Contracted thick-walled gallbladder without calcified stones possibly physiologic however if concern for gallbladder disease ultrasound recommended. No evidence for aortic aneurysm periaortic leak or dissection Other findings as above Electronically Signed: Jayden Hernandez MD at 21:08 EDT , Chest CTA 11/16/22 20:11 IMPRESSION: ASHD and diffuse interstitial and emphysematous changes in the upper lobes. 2 small noncalcified nodular opacities in the right upper lobe of uncertain etiology and clinical significance as above. No evidence for pulmonary embolus Electronically Signed: Jayden Hernandez MD at 21:00 EDT , Discharge Plan Triage Chief Complaint: Back ED Provider: Bina Walter Dx/Rx/DC Orders Clinical Impression: Back pain, Acute lumbar radiculopathy Instructions: ED Back and Neck Pain, General, ED Sciatica Prescriptions: New oxycodone-acetaminophen [oxycodone-acetaminophen] 5-325 mg tablet 1 tab PO Q6H PRN PRN (Reason: pain) 5 Days Qty: 20 0RF No Action cholecalciferol (vitamin D3) 5,000 unit capsule 5,000 unit PO DAILY levocetirizine [Allergy Relief (levocetirizin)] 5 mg tablet 5 mg PO DAILY citalopram 10 mg tablet 10 mg PO DAILY levothyroxine 50 mcg tablet 50 mcg PO DAILY Breztri Aerosphere 160-9-4.8 mcg/actuation HFA aerosol inhaler 2 inh inhalation BID Qty: 10.7 3RF atorvastatin 40 mg tablet 40 mg PO DAILY albuterol sulfate 90 mcg/actuation HFA aerosol inhaler 2 puff inhalation Q6H PRN (Reason: Shortness Of Breath) losartan 25 mg tablet 25 mg PO DAILY Qty: 90 3RF clopidogrel 75 MG tablet 75 mg PO DAILY 30 Days Qty: 30 0RF dicyclomine 10 mg capsule 20 mg PO Q6H PRN PRN (Reason: abdominal discomfort) Qty: 30 0RF ondansetron [ondansetron] 4 mg tablet,disintegrating 8 mg PO Q8H PRN PRN (Reason: Nausea) Qty: 15 0RF Primary Care Provider: Bird Ronquillo Referrals: Bird Ronquillo MD [Primary Care Provider] - Jayden Burton DO [Med Staff - Active Staff] - 3-5 Days Disposition Disposition: Home, Self Care
[2022-11-16] MEDS: Oxycodone/Apap 5/325 Tablet PO (19:35)
[2022-11-16 19:37] LABS: Bacteria 0 SEEN /hpf (None Seen); Mucous, Urine 0 SEEN /hpf (<or=2+); Red Blood Cells-Urine 0 SEEN /hpf (0-5); Squamous Epithelial Cells - UA 0 SEEN /hpf (5-10); White Blood Cells 0 SEEN /hpf (0-5)
[2022-11-16 19:43] LABS: Color, Urine Yellow (Yellow); Glucose, Dipstick Normal (Normal); Ketone-Dipstick Negative (Negative); Leukocyte Esterase-Dipstick Negative /ul (Negative); Nitrite-Dipstick Negative (Negative); Occult Blood-Urine 10 /ul (Negative); Protein-Dipstick 15 mg/dl (Negative); Specific Gravity, Urine 1.025 (1.002-1.030); Urine Bilirubin Dipstick Negative (Negative); Urine Clarity Sl. Cloudy (Clear); Urine Urobilinogen Normal (Normal)
[2022-11-16 19:43] LABS: Absolute Lymphocyte Count 1.53 X10^3/uL (0.83-4.51); Absolute Neutrophil Count 3.1 X10^3/uL (2.0-7.7); Basophil# 0.05 X10^3/uL; Eosinophil# 0.08 X10^3/uL; Eosinophils% 1.6 % (0-5); Hematocrit 43.1 % (37-47); Hemoglobin 13.8 g/dL (12.0-15.0); Lymphocyte # 1.53 X10^3/ul (0.83-4.51); Lymphocyte % 29.8 % (19-41); Mean Corpuscular Volume 93.7 fL (81-99); Mean Platelet Vol. 8.7 fl (6.2-12.0); Monocyte# 0.35 X10^3/uL; Monocyte% 6.8 % (0-10); NRBC Flagged by Analyzer 0 % (0-5); Neutrophil # 3.11 X10^3/uL (2.7-7.7); Neutrophil % 60.6 % (47-70); Platelet Count 197 K/mm3 (150-450); RBC Distribution Width CV 13.5 % (11.6-14.6); RBC Distribution Width SD 46.4 fl (35.1-43.9); White Blood Count 5.1 K/mm3 (4.4-11.0)
[2022-11-16 19:56] LABS: Anion Gap 6 (5-15); BUN 23 mg/dL (7-18); BUN/Creat Ratio 21.1 RATIO (10-20); Calcium,Total 9.3 mg/dL (8.5-10.1); Chloride 105 mmol/L (98-107); Creatinine, Serum 1.09 mg/dL (0.55-1.02); EST Glomerular Filtration Rate 54 mL/min (>60); Est Glom Filt Rate - Afr Amer 65 mL/min (>60); Estimated Creatinine Clearance 44.43 ml/min; Glucose 88 mg/dL (74-106); Potassium 3.9 mmol/L (3.5-5.1); Sodium Level 142 mmol/L (136-145)
[2022-11-16 20:10] LABS: D-Dimer Quantitative (DVT/PE) 1.13 FEU/ug/m (0.27-0.49)
--- NOTE | 2022-11-16 20:11 | CT_ITS ---
STUDY: CTA CHEST REASON FOR EXAM: Female, 67 years old. elevated d-dimer, back pain RADIATION DOSAGE (If Supplied By Facility): CTDIvol = ( 8.49 ) mGy, DLP = ( 799.85 ) mGycm TECHNIQUE: The examination was performed with the intravenous administration of IV 100mL Isovue-370. Post-processing of the angiographic images was performed, with multiplanar reformation and 3D reconstruction. Individualized dose optimization techniques were used for this CT. COMPARISON: None. FINDINGS: Normal enhancement of the main pulmonary artery and right and left pulmonary arteries. Normal enhancement of the bilateral peripheral pulmonary arteries. There is no demonstrated pulmonary embolism. Minor atherosclerotic changes of the aorta without evidence for aneurysm There is no demonstrated aortic dissection. Normal heart and pericardium. Normal mediastinum. Normal hilar regions. Normal visualized trachea and bronchi. The lungs are well expanded. Interstitial and emphysematous changes in the upper lobes. There is a small noncalcified irregular nodule or scarring in the right upper lobe measuring approximately 1.2 x 6 cm. there is a second pleural-based nodular density in the right upper lobe measuring approximately 5.5 mm unchanged since prior study. Normal pleura. Normal chest wall structures. Dorsal spine demonstrates degenerative changes. Small hiatal hernia is noted Small nonspecific hypoattenuated nodule in the right lobe of the liver most likely a cyst. The larger nodular opacity is a new finding since prior study but at the site of prior scarring possibly representing scar carcinoma or possibly inspissated endobronchial mucus Recommend clinical correlation and follow-up studies utilizing Fleischner Society criteria CT/CTA Chest W/WO Contrast IMPRESSION: ASHD and diffuse interstitial and emphysematous changes in the upper lobes. 2 small noncalcified nodular opacities in the right upper lobe of uncertain etiology and clinical significance as above. No evidence for pulmonary embolus Electronically Signed: Jayden Hernandez MD at 21:00 EDT ,
--- NOTE | 2022-11-16 20:11 | CT_ITS ---
STUDY: CT ABDOMEN AND PELVIS WITH CONTRAST REASON FOR EXAM: Female, 67 years old. abdominal pain, back pain RADIATION DOSAGE (If Supplied By Facility): CTDIvol = ( 8.49 ) mGy, DLP = ( 799.85 ) mGycm TECHNIQUE: Transaxial images were obtained from the dome of the diaphragm to the symphysis pubis without oral contrast. IV 100mL Isovue-370 was administered. Sagittal and coronal images were reconstructed. Individualized dose optimization techniques were used for this CT. COMPARISON: November 03, 2022. FINDINGS: The visualized lung bases are unremarkable. The visualized portions of the heart are within normal limits. There are multiple hypoattenuated nodules within the liver the largest of which is cystic utilizing Hounsfield numbers however the others are too small to characterize due to volume averaging although most likely cysts... Contracted thick-walled gallbladder without calcified stones. Normal spleen. Normal pancreas. Normal bilateral adrenal glands. Normal right kidney. Normal left kidney. Nonspecific gastric distention with mildly distended loops of proximal small bowel likely representing focal ileus.. Normal small intestine. Diverticular disease of the distal descending and sigmoid colon without evidence for acute diverticulitis The appendix is visualized and appears normal. Atherosclerotic changes of the aorta without evidence for aneurysm. Normal inferior vena cava. Normal retroperitoneum. Incompletely distended thick walled bladder likely of no significance Normal abdominal wall. Normal osseous structures. CT/Abdomen/Pelvis W IV Cont ONLY IMPRESSION: Nonspecific gastric distention and mildly distended proximal loops of small bowel without evidence for small bowel obstruction possibly representing focal ileus. Contracted thick-walled gallbladder without calcified stones possibly physiologic however if concern for gallbladder disease ultrasound recommended. No evidence for aortic aneurysm periaortic leak or dissection Other findings as above Electronically Signed: Jayden Hernandez MD at 21:08 EDT Reading Location ID and State: [facility] / [place] , Service support ,
[2022-11-16 21:12] VITALS: BP 149/74; PULSE 67; RESP 16; O2SAT 96
== END 2022-11-16 21:34 | disposition home or self-care (01) ==
PROVIDERS: Emergency Provider Emergency Medicine; PCP Family Medicine; Visit Provider Emergency Medicine
DX: M54.16 Radiculopathy, lumbar region (principal); I25.10 Atherosclerotic heart disease of native coronary artery without angina pectoris; Z87.891 Personal history of nicotine dependence
CPT/HCPCS: 71275; 74177; 80048; 81001; 85025; 85379; 99283; Q9967

== ENCOUNTER 2022-12-01 15:35 | Emergency (ER) | payer MEDICARE, MEDICAID, SELFPAY ==
[2022-12-01 15:36] VITALS: BP 154/92; PULSE 92; RESP 14; TEMP 36.4; O2SAT 99; BMI 25.4
--- NOTE | 2022-12-01 16:00 | ED.VIS.BACK ---
HPI History of Present Illness Chief Complaint: Other, Pain/Inj Narrative Narrative: 67-year-old female presents with back pain that she has had for the last month. She relays a remote history of a fall years ago. Last month she began having problems with her low back. She states she was seen in the emergency department and was given analgesics. Over the last few days, she has had increased pain that radiates to her right buttocks and that she cannot sit for extended periods of time secondary to pain. She denies any fevers or chills. No loss of bowel or bladder, no other symptoms. She has been taking Tylenol without relief. She states that at that time she was seen she was referred to someone for her back, but has been unable to follow-up with them. She denies any new symptoms, no red flag symptoms for cauda equina. No saddle anesthesia. [facility] Medical History Abdominal pain Abnormal Holter monitor finding Acute dysfunction of both eustachian tubes Acute seasonal allergic rhinitis Acute serous otitis media Ambulates with cane Anxiety Anxiety disorder Arthritis Atherosclerotic heart disease of [place] coronary artery without angina pectoris Bronchitis Bruising CAD (coronary artery disease) Chest pain Constipation COPD (chronic obstructive pulmonary disease) Depression Diaphragm paralysis Difficulty chewing Difficulty swallowing Easy bruising Essential hypertension Former smoker Fuchs' corneal dystrophy Gastric reflux High cholesterol History of cerebrovascular disease History of CVA (cerebrovascular accident) History of echocardiogram History of heart attack History of hiatal hernia History of IBS History of irregular heartbeat History of renal disease History of stress test HTN (hypertension) Hypothyroidism Hypoxia Internal impingement of right shoulder Mixed hyperlipidemia Restless legs Shortness of breath on exertion Sinus pause Skin tear Stroke/cerebrovascular accident Thigh pain Thyroid disease Traumatic avulsion of nail plate of toe Wears dentures Wears glasses Home Medications cholecalciferol (vitamin D3) 125 mcg (5,000 unit) capsule 5,000 unit PO DAILY SUPPLEMENT 08/14/18 [History Last Taken 06/07/22] levocetirizine 5 mg tablet (Allergy Relief (levocetirizine)) 5 mg PO DAILY ALLERGIES 10/31/19 [History Last Taken 07/13/22] citalopram 10 mg tablet 10 mg PO DAILY DEPRESSION 08/17/21 [History Last Taken 06/07/22] levothyroxine 50 mcg tablet 50 mcg PO DAILY THYROID 08/17/21 [History Last Taken 06/07/22] clopidogrel 75 mg tablet 75 mg PO DAILY BLOOD THINNER 30 days #30 tabs 06/08/22 [Rx Last Taken 07/13/22] albuterol sulfate 90 mcg/actuation aerosol inhaler 2 puff inhalation Q6H PRN Shortness Of Breath 07/01/22 [History Last Taken Unknown] atorvastatin 40 mg tablet 40 mg PO DAILY 07/01/22 [History Last Taken Unknown] budesonide 160 mcg-glycopyr 9 mcg-formot 4.8 mcg/actuation HFA inhaler (Breztri Aerosphere) 2 inh inhalation BID #10.7 grams 09/13/22 [Rx Last Taken Unknown] losartan 25 mg tablet 25 mg PO DAILY #90 tabs 09/29/22 [Rx Last Taken Unknown] dicyclomine 10 mg capsule 20 mg (2 x 10 mg) PO Q6H PRN PRN abdominal discomfort #30 CAPSULES 10/21/22 [Rx Last Taken Unknown] ondansetron 4 mg disintegrating tablet 8 mg (2 x 4 mg) PO Q8H PRN PRN Nausea #15 tabs 10/21/22 [Rx Last Taken Unknown] oxycodone-acetaminophen 5 mg-325 mg tablet 1 tab PO Q6H PRN PRN pain 5 days #20 TABLETS 11/16/22 [Rx Last Taken Unknown] cyclobenzaprine 10 mg tablet 10 mg PO TID PRN Muscle Spasm #20 TABLETS 12/01/22 [Rx Last Taken Unknown] Allergy/AdvReac Type Severity Reaction Status Date / Time hydrocodone bitartrate Allergy HALLUCINATE Verified 12/01/22 15:36 [From Vicodin] S piperacillin [From Zosyn] Allergy Hives Verified 12/01/22 15:36 tazobactam [From Zosyn] Allergy Hives Verified 12/01/22 15:36 vancomycin Allergy Rash Verified 12/01/22 15:36 fish derived AdvReac Anaphylaxis Verified 12/01/22 15:36 morphine AdvReac HALLUCINATE Verified 12/01/22 15:36 S Family History Mother Diabetes Heart disease Hypertension High cholesterol Father Heart disease Hypertension High cholesterol CVA (cerebral vascular accident) Surgical History History of bilateral cataract extraction History of right breast biopsy History of shoulder surgery History of surgery on lower extremity History of tubal ligation Social History household members: significant other housing: apartment pets and animals: Yes pets and animals: dog(s) Smoking Status: Former smoker quit date: 10/28/19 pack-years: 25 Tobacco: How many years used: 25 second hand exposure: Yes alcohol intake: never substance use type: does not use caffeine: Yes Type: coffee Number of servings: 1 ROS ROS ED ROS Narrative Constitutional: No fever, no chills. HEENT: No sore throat. No neck pain. No loss of vision. No rhinorrhea. Cardiovascular: No chest pain. No palpitations. No pedal edema. Respiratory: No cough, no shortness of breath. Abdominal: No abdominal pain. No nausea. No vomiting. Genitourinary: No dysuria. No hematuria. Musculoskeletal: No myalgias. No arthralgias. Positive low back pain and buttocks pain. Neurologic: No headaches. No dizziness. No lightheadedness. Skin: No rash. No change in color. Psychiatric: No depression. No anxiety. EXAM Physical Exam Narrative Exam Narrative: Afebrile. Vital signs noted. HEENT: Normocephalic. Atraumatic. PERRL, EOMI. Neck soft and supple. No point tenderness or step off. Cardiovascular: Regular rate and rhythm. No murmurs, rubs, or gallops appreciated. Respiratory: No tachypnea. Lungs clear to auscultation bilaterally. Gastrointestinal: Abdomen soft, nontender, with normoactive bowel sounds. No rebound or guarding. Neurological: Awake. Alert. Nonfocal, nonlateralizing. Skin: No rash. Normal color. No pallor. Musculoskeletal: No pedal edema. Full range of motion extremities. Tenderness to palpation in sciatic notch, right. Neurovascularly intact bilateral lower extremities. Const Vital Signs: 12/01/22 15:36 12/01/22 15:45 Temperature 97.6 F L Temperature Source Temporal Pulse Rate 92 Respiratory Rate 14 Respiratory Effort Normal Non-Labored Blood Pressure 154/92 H Blood Pressure Mean 112 Pulse Ox 99 Oxygen Delivery Method Room Air MDM MDM MDM Narrative Medical decision making narrative: I reviewed the patient's prior records. She had a complete work-up and she was having more upper back pain and had a CT of the abdomen and pelvis. It was thought that she was having radicular signs. She had received 1 Percocet and a prescription for Percocet although she lists other narcotics is allergies. I do not feel laboratory testing is indicated. Based on her clinical examination today, I do think that she has more of a piriformis syndrome as she has tenderness in the right sciatic notch. She is neurovascular intact to her bilateral lower extremities. I do not feel x-rays are indicated. She was told that narcotic pain medication should come from her primary care provider. She will take [id number] analgesics and will try [id number] nonsteroidal anti-inflammatories, but based on her previous visit, she had already received steroids from urgent care which she had stated did not help her. She is not having low back pain currently. Additionally, I will write her for Flexeril to try as a muscle relaxer. She will follow-up with her primary care provider. Return instructions to the emergency department were reviewed. I do not feel she requires observation. She was seen ambulating to the room without difficulty. Disposition is discharged home in stable condition. Patient and her are agreeable to the plan. Discharge Plan Triage Chief Complaint: Other, Pain/Inj ED Provider: Naif Jackson Dx/Rx/DC Orders Clinical Impression: Sciatica without back pain, Piriformis syndrome of right side Instructions: ED Sciatica Prescriptions: New cyclobenzaprine 10 mg tablet 10 mg PO TID PRN (Reason: Muscle Spasm) Qty: 20 0RF No Action cholecalciferol (vitamin D3) 5,000 unit capsule 5,000 unit PO DAILY levocetirizine [Allergy Relief (levocetirizin)] 5 mg tablet 5 mg PO DAILY citalopram 10 mg tablet 10 mg PO DAILY levothyroxine 50 mcg tablet 50 mcg PO DAILY Breztri Aerosphere 160-9-4.8 mcg/actuation HFA aerosol inhaler 2 inh inhalation BID Qty: 10.7 3RF atorvastatin 40 mg tablet 40 mg PO DAILY albuterol sulfate 90 mcg/actuation HFA aerosol inhaler 2 puff inhalation Q6H PRN (Reason: Shortness Of Breath) losartan 25 mg tablet 25 mg PO DAILY Qty: 90 3RF clopidogrel 75 MG tablet 75 mg PO DAILY 30 Days Qty: 30 0RF dicyclomine 10 mg capsule 20 mg PO Q6H PRN PRN (Reason: abdominal discomfort) Qty: 30 0RF ondansetron [ondansetron] 4 mg tablet,disintegrating 8 mg PO Q8H PRN PRN (Reason: Nausea) Qty: 15 0RF oxycodone-acetaminophen [oxycodone-acetaminophen] 5-325 mg tablet 1 tab PO Q6H PRN PRN (Reason: pain) 5 Days Qty: 20 0RF Primary Care Provider: Bird Ronquillo Referrals: Bird Ronquillo MD [Primary Care Provider] - As soon as possible Disposition Disposition: Home, Self Care
[2022-12-01] MEDS: Oxycodone/Apap 5/325 Tablet PO (16:20)
--- NOTE | 2022-12-01 16:21 | ED.RN ---
This RN checked with patient that she can take percocets d/t her other allergies. Pt. stated she is good to take percocets and she was just taking some earlier in october
== END 2022-12-01 16:23 | disposition home or self-care (01) ==
PROVIDERS: Emergency Provider Emergency Medicine; PCP Family Medicine; Visit Provider Emergency Medicine
DX: M54.30 Sciatica, unspecified side (principal); I25.10 Atherosclerotic heart disease of native coronary artery without angina pectoris; Z87.891 Personal history of nicotine dependence; Z86.73 Personal history of transient ischemic attack (TIA), and cerebral infarction without residual deficits
CPT/HCPCS: 99283

== ENCOUNTER 2023-03-13 15:40 | Emergency (ER) | payer MEDICARE, MEDICAID, SELFPAY ==
[2023-03-13 15:41] VITALS: BP 149/73; PULSE 62; RESP 16; TEMP 36.3; O2SAT 97; BMI 24.2
--- NOTE | 2023-03-13 16:41 | EDS_ITS ---
HPI HPI - GI History of Present Illness Chief Complaint: Flank Pain Narrative Narrative: 67-year-old female presenting with right flank pain. She states has been there for about 3 months. She states she sees her primary care physician Dr. Ronquillo and she states that she had a CT scan done about a month ago which showed something wrong with her kidney and she was told to come to the ER today and specifically said that her right kidney was abnormal. She states that she believes that he did blood work but cannot recall how long ago. She does not have any urinary frequency, dysuria. She states she has a history of kidney stones. She has not a fever but feels nauseous. Right flank and in the right lower part of her back. Denies any trauma. [facility] Medical History Abdominal pain Abnormal Holter monitor finding Acute dysfunction of both eustachian tubes Acute seasonal allergic rhinitis Acute serous otitis media Ambulates with cane Anxiety Anxiety disorder Arthritis Atherosclerotic heart disease of [place] coronary artery without angina pectoris Bronchitis Bruising CAD (coronary artery disease) Chest pain Constipation COPD (chronic obstructive pulmonary disease) Depression Diaphragm paralysis Difficulty chewing Difficulty swallowing Easy bruising Essential hypertension Former smoker Fuchs' corneal dystrophy Gastric reflux High cholesterol History of cerebrovascular disease History of CVA (cerebrovascular accident) History of echocardiogram History of heart attack History of hiatal hernia History of IBS History of irregular heartbeat History of renal disease History of stress test HTN (hypertension) Hypothyroidism Hypoxia Internal impingement of right shoulder Mixed hyperlipidemia Restless legs Shortness of breath on exertion Sinus pause Skin tear Stroke/cerebrovascular accident Thigh pain Thyroid disease Traumatic avulsion of nail plate of toe Wears dentures Wears glasses Home Medications cholecalciferol (vitamin D3) 125 mcg (5,000 unit) capsule 5,000 unit PO DAILY SUPPLEMENT 08/14/18 [History Last Taken 06/07/22] citalopram 10 mg tablet 10 mg PO DAILY DEPRESSION 08/17/21 [History Last Taken 06/07/22] levothyroxine 50 mcg tablet 50 mcg PO DAILY THYROID 08/17/21 [History Last Taken 06/07/22] clopidogrel 75 mg tablet 75 mg PO DAILY BLOOD THINNER 30 days #30 tabs 06/08/22 [Rx Last Taken 07/13/22] atorvastatin 40 mg tablet 40 mg PO DAILY 07/01/22 [History Last Taken Unknown] losartan 25 mg tablet 25 mg PO DAILY #90 tabs 09/29/22 [Rx Last Taken Unknown] dicyclomine 10 mg capsule 20 mg (2 x 10 mg) PO Q6H PRN PRN abdominal discomfort #30 CAPSULES 10/21/22 [Rx Last Taken Unknown] ondansetron 4 mg disintegrating tablet 8 mg (2 x 4 mg) PO Q8H PRN PRN Nausea #15 tabs 10/21/22 [Rx Last Taken Unknown] oxycodone-acetaminophen 5 mg-325 mg tablet 1 tab PO Q6H PRN PRN pain 5 days #20 TABLETS 11/16/22 [Rx Last Taken Unknown] cyclobenzaprine 10 mg tablet 10 mg PO TID PRN Muscle Spasm #20 TABLETS 12/01/22 [Rx Last Taken Unknown] albuterol sulfate 90 mcg/actuation aerosol inhaler 2 puff inhalation Q6H PRN Shortness Of Breath #3 ea 12/14/22 [Rx Last Taken Unknown] budesonide 160 mcg-glycopyr 9 mcg-formot 4.8 mcg/actuation HFA inhaler (Breztri Aerosphere) 2 inh inhalation BID #3 ea 12/14/22 [Rx Last Taken Unknown] levocetirizine 5 mg tablet (Allergy Relief (levocetirizine)) 5 mg PO DAILY ALLERGIES #90 tabs 12/14/22 [Rx Last Taken Unknown] ciprofloxacin HCl 500 mg tablet (Cipro) 500 mg PO BID #14 tabs 03/13/23 [Rx Last Taken Unknown] Allergy/AdvReac Type Severity Reaction Status Date / Time hydrocodone bitartrate Allergy HALLUCINATE Verified 03/13/23 15:41 [From Vicodin] S piperacillin [From Zosyn] Allergy Hives Verified 03/13/23 15:41 tazobactam [From Zosyn] Allergy Hives Verified 03/13/23 15:41 vancomycin Allergy Rash Verified 03/13/23 15:41 fish derived AdvReac Anaphylaxis Verified 03/13/23 15:41 morphine AdvReac HALLUCINATE Verified 03/13/23 15:41 S Family History Mother Diabetes Heart disease Hypertension High cholesterol Father Heart disease Hypertension High cholesterol CVA (cerebral vascular accident) Surgical History History of bilateral cataract extraction History of right breast biopsy History of shoulder surgery History of surgery on lower extremity History of tubal ligation Social History household members: significant other housing: apartment pets and animals: Yes pets and animals: dog(s) Smoking Status: Former smoker quit date: 10/28/19 pack-years: 25 Tobacco: How many years used: 25 second hand exposure: Yes alcohol intake: never substance use type: does not use caffeine: Yes Type: coffee Number of servings: 1 ROS ROS ED Constitutional Constitutional ED: Denies chills, fever(s) or sweats Eyes Eyes: Denies blurry vision or change in vision ENT ENT ED: Denies ear pain or sore throat Cardiovascular Cardiovascular: Denies chest pain, palpitations or racing heartbeat Respiratory/Chest Respiratory/Chest: Denies cough, dyspnea or sputum Gastrointestinal Gastrointestinal: Reports abdominal pain and nausea; Denies constipation, diarrhea or vomiting Genitourinary Genitourinary ED: Denies dysuria, hematuria or urinary frequency Musculoskeletal Musculoskeletal: Reports back pain; Denies arthralgias, myalgias or neck pain Integumentary Denies abscess, Abrasions or rash Neurologic Neurologic: Denies headache(s), paresthesias or weakness Psychiatric Psychiatric: Denies anxiety, depression, suicidal ideation or suicidal thoughts Endocrine Endocrinology: Denies polydipsia or polyuria EXAM Physical Exam Const Vital Signs: 03/13/23 15:41 Temperature 97.3 F L Temperature Source Temporal Pulse Rate 62 Respiratory Rate 16 Blood Pressure 149/73 H Blood Pressure Mean 98 Pulse Ox 97 Oxygen Delivery Method Room Air Positive well nourished General Appearance ED: NAD; Negative for pallor HEENT Reports moist mucous membranes normocephalic Eyes PERRL and EOMs intact bilaterally Resp normal respiratory effort and clear to auscultation bilaterally Cardio regular rate and regular rhythm GI non-tender Back/Spine Back/Spine Narrative: Right lumbar paraspinal musculature tenderness. There is also right-sided CVA tenderness. Neuro CN's II-XII intact bilaterally Sensorium / Orientation: alert Motor Exam: strength 5/5 throughout Psych mental status grossly normal Skin General Skin Exam: Negative for jaundice or pallor MDM MDM MDM Narrative Medical decision making narrative: 67-year-old female presenting with right flank pain. She is already had a CT scan performed of her abdomen and there is something structurally wrong with her kidney although this was a month ago. She states she was referred here today for this problem. Patient states the pain has been ongoing for months. Patient presenting with right flank pain. Differential includes colitis, diverticulitis, gastritis, pancreatitis, constipation, UTI, pyelonephritis, renal calculi, ureteral calculi, bowel obstruction, malignancy, dehydration, electrolyte abnormalities, , ectopic , ovarian cyst, ovarian torsion. Patient not concern for . CBC will be obtained to assess white blood cell count, hemoglobin, platelets. P to assess liver function, renal function, electrolytes. Lipase to assess for pancreatitis. Alysis to assess for UTI. Creatinine normal at 1.01 however GFR is 58. I did obtain a abdominal pelvis CT with IV contrast which does not show anything acute. Structurally her kidney is normal. No evidence of pyelonephritis. Patient does have leukocyte esterase, 10-25 white blood cells, with 0-5 squamous epithelial cells and no bacteria in the urine. Given that she having flank pain has not been an ongoing issue I will cover her for pyelonephritis. She is given Cipro with first dose in the ED. He is given a prescription for this for home. I recommended that she follow-up with her PCP was resolution. Return precautions were discussed. Impression: 1. Right flank pain 2. Pyelonephritis Lab Data Attestation: I reviewed the patient's lab results. Labs: Laboratory Results - last 24 hr 03/13/23 03/13/23 16:36 16:45 WBC 5.3 RBC 4.58 Hgb 13.8 Hct 43.7 MCV 95.4 MCH 30.1 MCHC 31.6 L RDW Std Deviation 44.2 H RDW Coeff of Keo 12.6 Plt Count 181 MPV 8.9 Immature Gran % (Auto) 0.200 Neut % (Auto) 68.6 Lymph % (Auto) 24.2 [place] % (Auto) 5.1 Eos % (Auto) 1.1 Baso % (Auto) 0.8 Absolute Neuts (auto) 3.6 Absolute Lymphs (auto) 1.28 Nucleated RBC % 0 Sodium 141 Potassium 4.4 Chloride 109 H Carbon Dioxide 29.0 Anion Gap 3 L BUN 20 H Creatinine 1.01 Estim Creat Clear Calc 51.99 Est GFR (MDRD) Af Amer 71 Est GFR (MDRD) Non-Af 58 L BUN/Creatinine Ratio 19.8 Glucose 86 Calcium 9.1 Total Bilirubin 0.40 Direct Bilirubin 0.13 AST 26 ALT 42 Alkaline Phosphatase 69 Total Protein 7.0 Albumin 3.5 Globulin 3.5 Lipase 20 Urine Color Yellow Urine Clarity Clear Urine pH 6.0 Ur Specific [place] 1.015 Urine Protein 15 H Urine Glucose (UA) Normal Urine Ketones Negative Urine Occult Blood 10 H Urine Nitrite Negative Urine Bilirubin Negative Urine Urobilinogen Normal Ur Leukocyte Esterase 500 H Urine RBC 0 SEEN Urine WBC 10-25 SEEN Ur Squamous Epith Cells 0-5 SEEN Urine Bacteria 0 SEEN Urine Mucus 0 SEEN Radiography Diagnostic Testing: Clinical Impression(s) from Imaging Studies Abdomen/Pelvis CT 03/13/23 17:30 IMPRESSION: Increased stool. No acute disease. Electronically Signed: Jovanni Urias MD at 19:34 EDT Reading Location ID and State: [facility] / [place] Tel , Service support , Discharge Plan Triage Chief Complaint: Flank Pain ED Provider: Eduardo Ely Dx/Rx/DC Orders Instructions: ED Pyelonephritis, Female (Adult) Prescriptions: New ciprofloxacin HCl [Cipro] 500 mg tablet 500 mg PO BID Qty: 14 0RF No Action cholecalciferol (vitamin D3) 5,000 unit capsule 5,000 unit PO DAILY citalopram 10 mg tablet 10 mg PO DAILY levothyroxine 50 mcg tablet 50 mcg PO DAILY atorvastatin 40 mg tablet 40 mg PO DAILY losartan 25 mg tablet 25 mg PO DAILY Qty: 90 3RF Breztri Aerosphere 160-9-4.8 mcg/actuation HFA aerosol inhaler 2 inh inhalation BID Qty: 3 3RF albuterol sulfate 90 mcg/actuation HFA aerosol inhaler 2 puff inhalation Q6H PRN (Reason: Shortness Of Breath) Qty: 3 3RF levocetirizine [Allergy Relief (levocetirizin)] 5 mg tablet 5 mg PO DAILY Qty: 90 3RF clopidogrel 75 MG tablet 75 mg PO DAILY 30 Days Qty: 30 0RF dicyclomine 10 mg capsule 20 mg PO Q6H PRN PRN (Reason: abdominal discomfort) Qty: 30 0RF ondansetron [ondansetron] 4 mg tablet,disintegrating 8 mg PO Q8H PRN PRN (Reason: Nausea) Qty: 15 0RF oxycodone-acetaminophen [oxycodone-acetaminophen] 5-325 mg tablet 1 tab PO Q6H PRN PRN (Reason: pain) 5 Days Qty: 20 0RF cyclobenzaprine 10 mg tablet 10 mg PO TID PRN (Reason: Muscle Spasm) Qty: 20 0RF Primary Care Provider: Bird Ronquillo Referrals: Bird Ronquillo MD [Primary Care Provider] -
[2023-03-13 16:51] LABS: Absolute Lymphocyte Count 1.28 X10^3/uL (0.83-4.51); Absolute Neutrophil Count 3.6 X10^3/uL (2.0-7.7); Basophil# 0.04 X10^3/uL; Basophil% 0.8 % (0-1); Eosinophil# 0.06 X10^3/uL; Eosinophils% 1.1 % (0-5); Hematocrit 43.7 % (37-47); Hemoglobin 13.8 g/dL (12.0-15.0); Lymphocyte # 1.28 X10^3/ul (0.83-4.51); Lymphocyte % 24.2 % (19-41); Mean Corp Hgb Conc 31.6 g/dL (32-36); Mean Corpuscular Hgb 30.1 pg (27.0-32.0); Mean Corpuscular Volume 95.4 fL (81-99); Mean Platelet Vol. 8.9 fl (6.2-12.0); Monocyte# 0.27 X10^3/uL; Monocyte% 5.1 % (0-10); NRBC Flagged by Analyzer 0 % (0-5); Neutrophil # 3.62 X10^3/uL (2.7-7.7); Neutrophil % 68.6 % (47-70); Platelet Count 181 K/mm3 (150-450); RBC Distribution Width CV 12.6 % (11.6-14.6); RBC Distribution Width SD 44.2 fl (35.1-43.9); Red Blood Count 4.58 M/mm3 (4.2-5.4); White Blood Count 5.3 K/mm3 (4.4-11.0)
[2023-03-13] MEDS: fentaNYL 100 MCG/2 ML Ampul 25 MCG IV (16:52)
[2023-03-13] MEDS: 0.9% Normal Saline (1000mL) 1,000 ML 999 ML IV (16:52)
[2023-03-13] MEDS: Ondansetron 4 MG/2 ML Vial IV (16:53)
[2023-03-13 17:09] LABS: Bacteria 0 SEEN /hpf (None Seen); Mucous, Urine 0 SEEN /hpf (<or=2+); Red Blood Cells-Urine 0 SEEN /hpf (0-5)
[2023-03-13 17:17] LABS: Color, Urine Yellow (Yellow); Glucose, Dipstick Normal (Normal); Ketone-Dipstick Negative (Negative); Leukocyte Esterase-Dipstick 500 /ul (Negative); Nitrite-Dipstick Negative (Negative); Occult Blood-Urine 10 /ul (Negative); Protein-Dipstick 15 mg/dl (Negative); Specific Gravity, Urine 1.015 (1.002-1.030); Urine Bilirubin Dipstick Negative (Negative); Urine Clarity Clear (Clear); Urine Urobilinogen Normal (Normal)
[2023-03-13 17:28] LABS: AST(SGOT) 26 U/L (15-37); Alanine Aminotransfer ALT/SGPT 42 U/L (13-56); Albumin, Serum 3.5 g/dL (3.2-5.0); Alkaline Phosphatase 69 U/L (45-117); Anion Gap 3 (5-15); BUN 20 mg/dL (7-18); BUN/Creat Ratio 19.8 RATIO (10-20); Bilirubin, Direct 0.13 mg/dL (0.00-0.30); Calcium,Total 9.1 mg/dL (8.5-10.1); Chloride 109 mmol/L (98-107); Creatinine, Serum 1.01 mg/dL (0.55-1.02); EST Glomerular Filtration Rate 58 mL/min (>60); Est Glom Filt Rate - Afr Amer 71 mL/min (>60); Estimated Creatinine Clearance 51.99 ml/min; Globulin 3.5 g/dL (2.2-4.2); Glucose 86 mg/dL (74-106); Lipase 20 U/L (13-75); Potassium 4.4 mmol/L (3.5-5.1); Sodium Level 141 mmol/L (136-145)
[2023-03-13 17:30] LABS: Squamous Epithelial Cells - UA 0-5 SEEN /hpf (5-10); White Blood Cells 10-25 SEEN /hpf (0-5)
--- NOTE | 2023-03-13 17:30 | CT_ITS ---
STUDY: CT ABDOMEN AND PELVIS WITH CONTRAST REASON FOR EXAM: Female, 67 years old. right flank pain RADIATION DOSAGE (If Supplied By Facility): CTDIvol = ( 12.46 ) mGy, DLP = ( 514.52 ) mGycm TECHNIQUE: Transaxial images were obtained from the dome of the diaphragm to the symphysis pubis without oral contrast. IV 100mL Isovue-300 was administered. Sagittal and coronal images were reconstructed. Individualized dose optimization techniques were used for this CT. COMPARISON: CT abdomen and pelvis November 16, 2022 FINDINGS: The visualized lung bases are unremarkable. The visualized portions of the heart are within normal limits. 2 hepatic cysts measuring up to 15 mm. Normal gallbladder and extrahepatic biliary system. Normal spleen. Normal pancreas. Normal bilateral adrenal glands. Normal right kidney. Normal left kidney. Normal visualized stomach. Normal small intestine. Increased stool in the colon. [Appendix normal. Calcified plaque along the aorta and its branches. Normal inferior vena cava. Normal retroperitoneum. Normal urinary bladder. Uterus normal. Fat-containing umbilical hernia. Normal osseous structures. CT/Abdomen/Pelvis W IV Cont ONLY IMPRESSION: Increased stool. No acute disease. Electronically Signed: Jovanni Urias MD at 19:34 EDT ,
[2023-03-13 17:41] VITALS: RESP 16
[2023-03-13 19:41] VITALS: RESP 16
[2023-03-13] MEDS: Ciprofloxacin 500 MG Tablet PO (20:35)
--- NOTE | 2023-03-16 09:39 | ED.RN ---
THIS RN CALLED IN PRESCRIPTION FOR CIPRO 500MG BID QTY14 BY DR GUERRA DUE TO PRESCRIPTION NOT GOING THROUGH ELECTRONICALLY
== END 2023-03-13 20:54 | disposition home or self-care (01) ==
PROVIDERS: Emergency Provider Student in an Organized Health Care Education/Training Program; PCP Family Medicine; Visit Provider Student in an Organized Health Care Education/Training Program
DX: N12 Tubulo-interstitial nephritis, not specified as acute or chronic (principal); J44.9 Chronic obstructive pulmonary disease, unspecified; R10.9 Unspecified abdominal pain; I10 Essential (primary) hypertension; I25.10 Atherosclerotic heart disease of native coronary artery without angina pectoris; E78.00 Pure hypercholesterolemia, unspecified; K21.9 Gastro-esophageal reflux disease without esophagitis; Z79.02 Long term (current) use of antithrombotics/antiplatelets; Z79.890 Hormone replacement therapy; Z79.899 Other long term (current) drug therapy; Z87.891 Personal history of nicotine dependence; Z87.442 Personal history of urinary calculi; Z86.73 Personal history of transient ischemic attack (TIA), and cerebral infarction without residual deficits
CPT/HCPCS: 74177; 80048; 80076; 81001; 83690; 85025; 87077; 87086; 87088; 87186; 99283; J7030; Q9967; A4216; J2405

== ENCOUNTER 2023-08-14 14:45 | Emergency (ER) | payer MEDICARE, MEDICAID, SELFPAY ==
[2023-08-14 14:46] VITALS: BP 126/75; PULSE 70; RESP 16; TEMP 35.5; O2SAT 99; BMI 27.0
--- NOTE | 2023-08-14 15:52 | EKG12_ITS ---
Test Reason : WEAKNESS Blood Pressure : / mmHG Vent. Rate : 051 BPM Atrial Rate : 051 BPM P-R Int : 178 ms QRS Dur : 074 ms QT Int : 436 ms P-R-T Axes : 067 029 032 degrees QTc Int : 401 ms Sinus bradycardia Otherwise normal ECG Confirmed by MEL SHERMAN, CHAPIN ([id number]), rewrite editor ISAAK BHARDWAJ ([id number]) on 08/15/2023 8:01:48 AM Referred By: Confirmed By:CHAPIN LEAL MD
[2023-08-14 16:24] LABS: Mucous, Urine 0 SEEN /hpf (<or=2+); Squamous Epithelial Cells - UA 0 SEEN /hpf (5-10)
[2023-08-14 16:28] LABS: Color, Urine Yellow (Yellow); Glucose, Dipstick Normal (Normal); Ketone-Dipstick Negative (Negative); Leukocyte Esterase-Dipstick 500 /ul (Negative); Nitrite-Dipstick Negative (Negative); Occult Blood-Urine 10 /ul (Negative); Protein-Dipstick Negative (Negative); Urine Bilirubin Dipstick Negative (Negative); Urine Clarity Clear (Clear); Urine Urobilinogen Normal (Normal)
[2023-08-14 16:29] LABS: Absolute Lymphocyte Count 1.13 X10^3/uL (0.83-4.51); Absolute Neutrophil Count 3.2 X10^3/uL (2.0-7.7); Basophil# 0.05 X10^3/uL; Eosinophil# 0.22 X10^3/uL; Eosinophils% 4.4 % (0-5); Hematocrit 41.9 % (37-47); Hemoglobin 13.3 g/dL (12.0-15.0); Lymphocyte # 1.13 X10^3/ul (0.83-4.51); Lymphocyte % 22.6 % (19-41); Mean Corp Hgb Conc 31.7 g/dL (32-36); Mean Corpuscular Hgb 29.2 pg (27.0-32.0); Mean Corpuscular Volume 91.9 fL (81-99); Monocyte# 0.34 X10^3/uL; Monocyte% 6.8 % (0-10); NRBC Flagged by Analyzer 0 % (0-5); Neutrophil # 3.24 X10^3/uL (2.7-7.7); Neutrophil % 64.8 % (47-70); Platelet Count 191 K/mm3 (150-450); RBC Distribution Width CV 13.5 % (11.6-14.6); RBC Distribution Width SD 45.3 fl (35.1-43.9); Red Blood Count 4.56 M/mm3 (4.2-5.4)
--- NOTE | 2023-08-14 16:30 | RAD_ITS ---
STUDY: X-RAY CHEST REASON FOR EXAM: Female, 68 years old. dizziness TECHNIQUE: AP portable COMPARISON: November 03, 2022 FINDINGS: The lungs are clear and expanded. There is no demonstrated pleural abnormality. Normal size heart. Normal mediastinum and omero. Normal visualized pulmonary arteries. Normal visualized aortic arch and descending thoracic aorta. Normal visualized thoracic spine. Normal visualized ribs, clavicles, and shoulders. There is no demonstrated abnormality of the visualized soft tissue structures of the upper abdomen. RAD/Chest 1 View (Portable) IMPRESSION: Normal x-ray examination of the chest. Electronically Signed: Jayden Hernandez MD at 17:20 EDT ,
[2023-08-14 16:46] VITALS: BP 142/72; PULSE 56; RESP 18; O2SAT 94
[2023-08-14 16:46] LABS: Anion Gap 2 (5-15); BUN 17 mg/dL (7-18); Calcium,Total 8.9 mg/dL (8.5-10.1); Chloride 109 mmol/L (98-107); Creatinine, Serum 1.06 mg/dL (0.55-1.02); EST Glomerular Filtration Rate 55 mL/min (>60); Est Glom Filt Rate - Afr Amer 67 mL/min (>60); Glucose 95 mg/dL (74-106); Potassium 4.3 mmol/L (3.5-5.1); Sodium Level 140 mmol/L (136-145); Troponin-I HS 5 pg/mL (3.0-54.0)
[2023-08-14 16:49] LABS: Bacteria RARE /hpf (None Seen); Red Blood Cells-Urine 0-5 SEEN /hpf (0-5); White Blood Cells 5-10 SEEN /hpf (0-5)
--- NOTE | 2023-08-14 17:11 | EX.ED.DYSGE1 ---
HPI History of Present Illness Chief Complaint: Dizziness Narrative Narrative: 64-year-old female with dizziness. She states it feels like it is vertiginous in nature. It initially started a couple of weeks ago and has been intermittent. She describes pain in her right ear. Patient states she has not seen anybody for this. She has not taken any medication for this. She intermittently has headaches and nausea. She has not had any falls or head trauma. No fevers or chills. No chest pain, palpitations, shortness of breath. Eating and drinking normally. She making normal urine and stool. She states that her dizziness is worse when she gets up and moves and turns her head. [facility] Medical History Abdominal pain Abnormal Holter monitor finding Acute dysfunction of both eustachian tubes Acute seasonal allergic rhinitis Acute serous otitis media Ambulates with cane Anxiety Anxiety disorder Arthritis Atherosclerotic heart disease of [place] coronary artery without angina pectoris Bronchitis Bruising CAD (coronary artery disease) Chest pain Constipation COPD (chronic obstructive pulmonary disease) Depression Diaphragm paralysis Difficulty chewing Difficulty swallowing Easy bruising Essential hypertension Former smoker Fuchs' corneal dystrophy Gastric reflux High cholesterol History of cerebrovascular disease History of CVA (cerebrovascular accident) History of echocardiogram History of heart attack History of hiatal hernia History of IBS History of irregular heartbeat History of renal disease History of stress test HTN (hypertension) Hypothyroidism Hypoxia Internal impingement of right shoulder Mixed hyperlipidemia Restless legs Shortness of breath on exertion Sinus pause Skin tear Stroke/cerebrovascular accident Thigh pain Thyroid disease Traumatic avulsion of nail plate of toe Wears dentures Wears glasses Home Medications cholecalciferol (vitamin D3) 125 mcg (5,000 unit) capsule 5,000 unit PO DAILY SUPPLEMENT 08/14/18 [History Last Taken 06/07/22] levothyroxine 50 mcg tablet 50 mcg PO DAILY THYROID 08/17/21 [History Last Taken 06/07/22] clopidogrel 75 mg tablet 75 mg PO DAILY BLOOD THINNER 30 days #30 tabs 06/08/22 [Rx Last Taken 07/13/22] atorvastatin 40 mg tablet 40 mg PO DAILY 07/01/22 [History Last Taken Unknown] losartan 25 mg tablet 25 mg PO DAILY #90 tabs 09/29/22 [Rx Last Taken Unknown] albuterol sulfate 90 mcg/actuation aerosol inhaler 2 puff inhalation Q6H PRN Shortness Of Breath #3 ea 12/14/22 [Rx Last Taken Unknown] levocetirizine 5 mg tablet (Allergy Relief (levocetirizine)) 5 mg PO DAILY ALLERGIES #90 tabs 12/14/22 [Rx Last Taken Unknown] budesonide 160 mcg-glycopyr 9 mcg-formot 4.8 mcg/actuation HFA inhaler (Breztri Aerosphere) 2 inh inhalation BID #3 ea 07/20/23 [Rx Last Taken Unknown] alendronate 70 mg tablet 70 mg PO Q7D 08/14/23 [History Last Taken Unknown] cholecalciferol (vitamin D3) 125 mcg (5,000 unit) tablet 125 mcg PO DAILY 08/14/23 [History Last Taken Unknown] citalopram 10 mg tablet 10 mg PO DAILY 08/14/23 [History Last Taken Unknown] meclizine 25 mg chewable tablet 25 mg PO TID PRN dizziness #30 tabs 08/14/23 [Rx Last Taken Unknown] Allergy/AdvReac Type Severity Reaction Status Date / Time hydrocodone bitartrate Allergy HALLUCINATE Verified 08/14/23 14:48 [From Vicodin] S piperacillin [From Zosyn] Allergy Hives Verified 08/14/23 14:48 tazobactam [From Zosyn] Allergy Hives Verified 08/14/23 14:48 vancomycin Allergy Rash Verified 08/14/23 14:48 fish derived AdvReac Anaphylaxis Verified 08/14/23 14:48 morphine AdvReac HALLUCINATE Verified 08/14/23 14:48 S Family History Mother Diabetes Heart disease Hypertension High cholesterol Father Heart disease Hypertension High cholesterol CVA (cerebral vascular accident) Surgical History History of bilateral cataract extraction History of right breast biopsy History of shoulder surgery History of surgery on lower extremity History of tubal ligation Social History household members: significant other housing: apartment pets and animals: Yes pets and animals: dog(s) Smoking Status: Former smoker quit date: 10/28/19 pack-years: 25 Tobacco: How many years used: 25 second hand exposure: Yes alcohol intake: never substance use type: does not use caffeine: Yes Type: coffee Number of servings: 1 ROS ROS ED Constitutional Constitutional ED: Denies chills, fever(s) or sweats Eyes Eyes: Denies blurry vision or change in vision ENT ENT ED: Denies ear pain or sore throat Cardiovascular Cardiovascular: Denies chest pain, palpitations or racing heartbeat Respiratory/Chest Respiratory/Chest: Denies cough, dyspnea or sputum Gastrointestinal Gastrointestinal: Denies abdominal pain, constipation, diarrhea, nausea or vomiting Genitourinary Genitourinary ED: Denies dysuria, hematuria or urinary frequency Musculoskeletal Musculoskeletal: Denies arthralgias, myalgias or neck pain Integumentary Denies abscess, Abrasions or rash Neurologic Neurologic: Reports other Details: Dizziness ; Denies headache(s), paresthesias or weakness Psychiatric Psychiatric: Denies anxiety, depression, suicidal ideation or suicidal thoughts Endocrine Endocrinology: Denies polydipsia or polyuria EXAM Physical Exam Const Vital Signs: 08/14/23 14:46 08/14/23 15:18 08/14/23 16:46 Temperature 95.9 F L Temperature Source Temporal Pulse Rate 70 56 L Pulse Rate [Lying] Pulse Rate [Sitting (for 1 minute prior to obtaining)] Pulse Rate [Standing (for 1 minute prior to obtaining)] Respiratory Rate 16 18 Respiratory Effort Normal Non-Labored Respiratory Pattern Normal Blood Pressure 126/75 H 142/72 H Blood Pressure [Lying] Blood Pressure [Sitting (for 1 minute prior to obtaining)] Blood Pressure [Standing (for 1 minute prior to obtaining)] Blood Pressure Mean 92 95 Blood Pressure Mean [Lying] Blood Pressure Mean [Sitting (for 1 minute prior to obtaining)] Blood Pressure Mean [Standing (for 1 minute prior to obtaining)] Pulse Ox 99 94 Oxygen Delivery Method Room Air Room Air 08/14/23 17:16 08/14/23 18:00 08/14/23 18:50 Temperature 98.6 F Temperature Source Pulse Rate 64 72 Pulse Rate [Lying] 58 L Pulse Rate [Sitting (for 1 minute prior to obtaining)] 56 L Pulse Rate [Standing (for 1 minute prior to obtaining)] 72 Respiratory Rate 19 H 22 H Respiratory Effort Respiratory Pattern Blood Pressure 149/69 H 149/69 H Blood Pressure [Lying] 147/66 H Blood Pressure [Sitting (for 1 minute prior to obtaining)] 154/72 H Blood Pressure [Standing (for 1 minute prior to obtaining)] 145/79 H Blood Pressure Mean 95 95 Blood Pressure Mean [Lying] 93 Blood Pressure Mean [Sitting (for 1 minute prior to obtaining)] 99 Blood Pressure Mean [Standing (for 1 minute prior to obtaining)] 101 Pulse Ox 94 92 Oxygen Delivery Method Room Air Positive well nourished General Appearance ED: NAD; Negative for pallor HEENT Reports moist mucous membranes Eyes PERRL and EOMs intact bilaterally Resp normal respiratory effort and clear to auscultation bilaterally Auscultation: Negative for rales or rhonchi Cardio regular rate and regular rhythm GI normal to inspection, nondistended, normoactive bowel sounds Neuro oriented x3 and CN's II-XII intact bilaterally Sensorium / Orientation: alert Motor Exam: strength 5/5 throughout Psych mental status grossly normal Skin no rashes or lesions noted and no wounds General Skin Exam: Negative for jaundice or pallor MDM MDM MDM Narrative Medical decision making narrative: 68-year-old female presenting with dizziness. She describes it as vertiginous in nature. Is reproducible on exam. Differential includes vertigo, dehydration, anemia, electro normalities, UTI, ACS, dysrhythmia, pneumonia. CBC to assess white blood cell count, hemoglobin, platelets. BMP to assess renal function, electrolytes, glucose. Urinalysis to assess for UTI. High-sensitivity troponin EKG to assess for ischemia/dysrhythmia. Chest x-ray to rule out pneumonia. Patient medicated with meclizine and Phenergan. Will reevaluate. Blood work all unremarkable. Urinalysis negative. Patient feeling better after treatment and is able to ambulate and does not feel dizzy anymore. I suspect she has vertigo. Orthostatic vital signs are negative. Patient counseled on findings. I believe she needs any imaging other than her chest x-ray which on my interpretation shows no acute process. Patient discharged stable condition. Impression: 1. Vertigo 2. Dizziness Lab Data Attestation: I reviewed the patient's lab results. Labs: Laboratory Results - last 24 hr 08/14/23 08/14/23 15:21 16:10 WBC 5.0 RBC 4.56 Hgb 13.3 Hct 41.9 MCV 91.9 MCH 29.2 MCHC 31.7 L RDW Std Deviation 45.3 H RDW Coeff of Keo 13.5 Plt Count 191 MPV 9.0 Immature Gran % (Auto) 0.400 Neut % (Auto) 64.8 Lymph % (Auto) 22.6 Mason % (Auto) 6.8 Eos % (Auto) 4.4 Baso % (Auto) 1.0 Absolute Neuts (auto) 3.2 Absolute Lymphs (auto) 1.13 Nucleated RBC % 0 Sodium 140 Potassium 4.3 Chloride 109 H Carbon Dioxide 29.0 Anion Gap 2 L BUN 17 Creatinine 1.06 H Estim Creat Clear Calc 54.40 Est GFR (MDRD) Af Amer 67 Est GFR (MDRD) Non-Af 55 L BUN/Creatinine Ratio 16.0 Glucose 95 Calcium 8.9 Troponin I High Sens 5 Urine Color Yellow Urine Clarity Clear Urine pH 5.0 Ur Specific [place] 1.020 Urine Protein Negative Urine Glucose (UA) Normal Urine Ketones Negative Urine Occult Blood 10 H Urine Nitrite Negative Urine Bilirubin Negative Urine Urobilinogen Normal Ur Leukocyte Esterase 500 H Urine RBC 0-5 SEEN Urine WBC 5-10 SEEN Ur Squamous Epith Cells 0 SEEN Urine Bacteria RARE Urine Mucus 0 SEEN Radiography Diagnostic Testing: Clinical Impression(s) from Imaging Studies Chest X-Ray 08/14/23 16:30 IMPRESSION: Normal x-ray examination of the chest. Electronically Signed: Jayden Hernandez MD at 17:20 EDT Reading Location ID and State: [address] [place] [address] Tel , Service support , Discharge Plan Triage Chief Complaint: Dizziness ED Provider: Eduardo Ely Dx/Rx/DC Orders Instructions: ED Vertigo, Unspecified Prescriptions: New meclizine 25 mg tablet,chewable 25 mg PO TID PRN (Reason: dizziness) Qty: 30 0RF No Action cholecalciferol (vitamin D3) 5,000 unit capsule 5,000 unit PO DAILY levothyroxine 50 mcg tablet 50 mcg PO DAILY atorvastatin 40 mg tablet 40 mg PO DAILY losartan 25 mg tablet 25 mg PO DAILY Qty: 90 3RF albuterol sulfate 90 mcg/actuation HFA aerosol inhaler 2 puff inhalation Q6H PRN (Reason: Shortness Of Breath) Qty: 3 3RF levocetirizine [Allergy Relief (levocetirizin)] 5 mg tablet 5 mg PO DAILY Qty: 90 3RF clopidogrel 75 MG tablet 75 mg PO DAILY 30 Days Qty: 30 0RF alendronate 70 mg tablet 70 mg PO Q7D Patient Comments: PLEASE SEE ATTACHED FOR DETAILED DIRECTIONS citalopram 10 mg tablet 10 mg PO DAILY cholecalciferol (vitamin D3) 125 mcg (5,000 unit) tablet 125 mcg PO DAILY Breztri Aerosphere 160-9-4.8 mcg/actuation HFA aerosol inhaler 2 inh inhalation BID Qty: 3 3RF Primary Care Provider: Bird Ronquillo Referrals: Bird Ronquillo MD [Primary Care Provider] - Disposition Disposition: Home, Self Care Discharge Date/Time: 08/14/23 19:15
[2023-08-14] MEDS: Meclizine HCl 25 MG Tablet PO (17:12)
[2023-08-14] MEDS: proMETHazine 25 MG/ML Syringe 12.5 MG IM (17:12)
[2023-08-14 17:16] VITALS: BP 145/79; BP 147/66; BP 154/72; PULSE 56; PULSE 58; PULSE 72
[2023-08-14 18:00] VITALS: BP 149/69; PULSE 64; RESP 19; O2SAT 94
[2023-08-14 18:50] VITALS: BP 149/69; PULSE 72; RESP 22; TEMP 37; O2SAT 92
== END 2023-08-14 19:15 | disposition home or self-care (01) ==
PROVIDERS: Emergency Provider Student in an Organized Health Care Education/Training Program; PCP Family Medicine; Visit Provider Student in an Organized Health Care Education/Training Program
DX: R42 Dizziness and giddiness (principal); J44.9 Chronic obstructive pulmonary disease, unspecified; I25.10 Atherosclerotic heart disease of native coronary artery without angina pectoris; F41.9 Anxiety disorder, unspecified; I25.2 Old myocardial infarction; Z79.51 Long term (current) use of inhaled steroids; Z79.899 Other long term (current) drug therapy; Z87.891 Personal history of nicotine dependence; Z86.73 Personal history of transient ischemic attack (TIA), and cerebral infarction without residual deficits
CPT/HCPCS: 71045; 80048; 81001; 84484; 85025; 93005; 96372; 99285; A4216

== ENCOUNTER 2023-09-29 17:16 | Emergency (ER) | payer MEDICARE, MEDICAID, SELFPAY ==
[2023-09-29 17:17] VITALS: BP 140/119; PULSE 76; RESP 18; TEMP 36.6; O2SAT 97; BMI 26.6
--- NOTE | 2023-09-29 17:54 | EDS_ITS ---
HPI History of Present Illness Chief Complaint: Lower Extremity Injury Informant: patient Narrative Narrative: Patient noticed a sore pruritic subcutaneous knot on her left lower leg this morning. Has not changed significantly throughout the day. No history of DVT or PE but that was her main concern. She denies any dyspnea, fevers, chills, other systemic symptoms. As we were talking about possibilities, she remembers noticing mosquito on her leg last night that she brushed off. It was in the same area. She denies any recent surgery, hospitalization, immobilization, or long travel. She is on aspirin and Plavix because of a history of a stroke. [facility] Medical History Abdominal pain Abnormal Holter monitor finding Acute dysfunction of both eustachian tubes Acute seasonal allergic rhinitis Acute serous otitis media Ambulates with cane Anxiety Anxiety disorder Arthritis Atherosclerotic heart disease of [place] coronary artery without angina pectoris Bronchitis Bruising CAD (coronary artery disease) Chest pain Constipation COPD (chronic obstructive pulmonary disease) Depression Diaphragm paralysis Difficulty chewing Difficulty swallowing Easy bruising Essential hypertension Former smoker Fuchs' corneal dystrophy Gastric reflux High cholesterol History of cerebrovascular disease History of CVA (cerebrovascular accident) History of echocardiogram History of heart attack History of hiatal hernia History of IBS History of irregular heartbeat History of renal disease History of stress test HTN (hypertension) Hypothyroidism Hypoxia Internal impingement of right shoulder Mixed hyperlipidemia Restless legs Shortness of breath on exertion Sinus pause Skin tear Stroke/cerebrovascular accident Thigh pain Thyroid disease Traumatic avulsion of nail plate of toe Wears dentures Wears glasses Home Medications cholecalciferol (vitamin D3) 125 mcg (5,000 unit) capsule 5,000 unit PO DAILY SUPPLEMENT 08/14/18 [History Last Taken 06/07/22] levothyroxine 50 mcg tablet 50 mcg PO DAILY THYROID 08/17/21 [History Last Taken 06/07/22] clopidogrel 75 mg tablet 75 mg PO DAILY BLOOD THINNER 30 days #30 tabs 06/08/22 [Rx Last Taken 07/13/22] atorvastatin 40 mg tablet 40 mg PO DAILY 07/01/22 [History Last Taken Unknown] losartan 25 mg tablet 25 mg PO DAILY #90 tabs 09/29/22 [Rx Last Taken Unknown] albuterol sulfate 90 mcg/actuation aerosol inhaler 2 puff inhalation Q6H PRN Shortness Of Breath #3 ea 12/14/22 [Rx Last Taken Unknown] levocetirizine 5 mg tablet (Allergy Relief (levocetirizine)) 5 mg PO DAILY ALLERGIES #90 tabs 12/14/22 [Rx Last Taken Unknown] budesonide 160 mcg-glycopyr 9 mcg-formot 4.8 mcg/actuation HFA inhaler (Breztri Aerosphere) 2 inh inhalation BID #3 ea 07/20/23 [Rx Last Taken Unknown] alendronate 70 mg tablet 70 mg PO Q7D 08/14/23 [History Last Taken Unknown] cholecalciferol (vitamin D3) 125 mcg (5,000 unit) tablet 125 mcg PO DAILY 07/27 01/19 [History Last Taken Unknown] citalopram 10 mg tablet 10 mg PO DAILY 08/14/23 [History Last Taken Unknown] meclizine 25 mg chewable tablet 25 mg PO TID PRN dizziness #30 tabs 08/14/23 [Rx Last Taken Unknown] Allergy/AdvReac Type Severity Reaction Status Date / Time hydrocodone bitartrate Allergy HALLUCINATE Verified 09/29/23 17:17 [From Vicodin] S piperacillin [From Zosyn] Allergy Hives Verified 09/29/23 17:17 tazobactam [From Zosyn] Allergy Hives Verified 09/29/23 17:17 vancomycin Allergy Rash Verified 09/29/23 17:17 fish derived AdvReac Anaphylaxis Verified 09/29/23 17:17 morphine AdvReac HALLUCINATE Verified 09/29/23 17:17 S Family History Mother Diabetes Heart disease Hypertension High cholesterol Father Heart disease Hypertension High cholesterol CVA (cerebral vascular accident) Surgical History History of bilateral cataract extraction History of right breast biopsy History of shoulder surgery History of surgery on lower extremity History of tubal ligation Social History household members: significant other housing: apartment pets and animals: Yes pets and animals: dog(s) Smoking Status: Former smoker quit date: 10/28/19 pack-years: 25 Tobacco: How many years used: 25 second hand exposure: Yes alcohol intake: never substance use type: does not use caffeine: Yes Type: coffee Number of servings: 1 ROS ROS ED Constitutional Constitutional ED: Denies chills or fever(s) Musculoskeletal Musculoskeletal: Reports as per HPI; Denies neck pain Integumentary Reports pruritus; Denies Abrasions, rash or wounds Neurologic Neurologic: Denies paresthesias or weakness EXAM Physical Exam Const Vital Signs: 09/29/23 17:17 Temperature 97.8 F Temperature Source Temporal Pulse Rate 76 Respiratory Rate 18 Blood Pressure 140/119 H Blood Pressure Mean 126 Pulse Ox 97 Oxygen Delivery Method Room Air Positive well nourished and well developed General Appearance ED: well developed and NAD Neck full ROM and supple Back/Spine normal ROM and normal to inspection Extremity normal to inspection and full ROM Extremity Narrative: In the left medial calf, there is a small subcutaneous nodule that is focal it is not a palpable cord, she does have a couple very small varicose veins but not in that immediate area. There are some excoriations from the patient scratching it over top of it but no erythema/cellulitis/induration. No fluctuance. It is for the most part nontender. All compartment soft and nondistended, full range of motion. Neuro oriented x3, no focal motor deficits and no sensory deficits noted Sensorium / Orientation: alert Psych mental status grossly normal and thought process normal Skin no wounds Rashes: no rashes MDM MDM MDM Narrative Medical decision making narrative: I think this is a mosquito bite. Worst-case scenario could be a superficial venous thrombosis associated with the varicose vein, I would recommend topical hydrocortisone cream which they have at home, as well as warm/hot compresses, I do not think she needs an emergent ultrasound, as she has low risk for venous thrombosis especially being on aspirin and clopidogrel. She agrees and is comfortable with that plan. We discussed reasons to return to the ER especially if it looks to be worsening like an infection but I do not think this is an abscess. She does not have a history of MRSA abscesses. Discharge Plan Triage Chief Complaint: Lower Extremity Injury ED Provider: Rl Britt Dx/Rx/DC Orders Clinical Impression: Insect bite of left lower leg Instructions: ED Insect Bite Prescriptions: No Action cholecalciferol (vitamin D3) 5,000 unit capsule 5,000 unit PO DAILY levothyroxine 50 mcg tablet 50 mcg PO DAILY atorvastatin 40 mg tablet 40 mg PO DAILY losartan 25 mg tablet 25 mg PO DAILY Qty: 90 3RF albuterol sulfate 90 mcg/actuation HFA aerosol inhaler 2 puff inhalation Q6H PRN (Reason: Shortness Of Breath) Qty: 3 3RF levocetirizine [Allergy Relief (levocetirizin)] 5 mg tablet 5 mg PO DAILY Qty: 90 3RF clopidogrel 75 MG tablet 75 mg PO DAILY 30 Days Qty: 30 0RF alendronate 70 mg tablet 70 mg PO Q7D Patient Comments: PLEASE SEE ATTACHED FOR DETAILED DIRECTIONS citalopram 10 mg tablet 10 mg PO DAILY cholecalciferol (vitamin D3) 125 mcg (5,000 unit) tablet 125 mcg PO DAILY meclizine 25 mg tablet,chewable 25 mg PO TID PRN (Reason: dizziness) Qty: 30 0RF Breztri Aerosphere 160-9-4.8 mcg/actuation HFA aerosol inhaler 2 inh inhalation BID Qty: 3 3RF Primary Care Provider: Bird Ronquillo Referrals: Bird Ronquillo MD [Primary Care Provider] - Activity Restrictions/Additional Instructions: May spread hydrocortisone on the affected area 2-3 times daily as needed, also may try hot compresses 3 times daily over the weekend to see if that helps as well. Disposition Disposition: Home, Self Care
== END 2023-09-29 18:18 | disposition home or self-care (01) ==
LOC: ED 18:14
PROVIDERS: Emergency Provider Emergency Medicine; PCP Family Medicine; Visit Provider Emergency Medicine
DX: S81.852A Open bite, left lower leg, initial encounter (principal); Z87.891 Personal history of nicotine dependence; X58.XXXA Exposure to other specified factors, initial encounter
CPT/HCPCS: 99282

== ENCOUNTER → 2023-11-15 | Outpatient (CLI) | payer MEDICARE, MEDICAID, SELFPAY ==
--- NOTE | 2023-11-15 15:03 | CT_ITS ---
EXAM: CT CHEST, LUNG CANCER SCREENING WITHOUT INTRAVENOUS CONTRAST CLINICAL INDICATION: smoke TECHNIQUE: Helically acquired images were obtained of the chest without intravenous contrast using low dose (LDCT) lung cancer screening protocol. This CT exam was performed using one or more of the following dose reduction techniques: automated exposure control, adjustment of the mA and/or kV according to patient size, and/or use of iterative reconstruction technique. COMPARISON: 01/18/2022 FINDINGS: LUNGS AND PLEURAL SPACES: There are extensive emphysematous changes in the upper lobes. There is a pleural-based nodule in the right middle lobe that is stable. There is a nodule in the right upper lobe that measures 8 mm on today''s exam and is not significantly changed. Lung-RADS score: 2 - Benign Appearance or Behavior. Recommend continued annual screening with a low-dose CT (LDCT) in 12 months. No pneumothorax. HEART: Unremarkable. Heart size is normal. No pericardial effusion. No significant coronary artery calcifications. MEDIASTINUM: Unremarkable. No mediastinal or hilar adenopathy. Esophagus is unremarkable. No hiatal hernia. THYROID: Unremarkable. No thyroid lesions. BONES/JOINTS: Unremarkable. No suspicious lytic or blastic abnormality. VASCULATURE: Unremarkable. Thoracic aorta is non-dilated. LYMPH NODES: Unremarkable. No enlarged lymph nodes. CT/Low Dose CT Lung Screening IMPRESSION: Noncalcified nodule in the right upper lobe which is not significantly change. There is also a pleural-based nodule in the right middle lobe which is stable. Electronically Signed: Ankush Marmolejo MD at 0:09 EDT ,
== END | disposition home or self-care (01) ==
PROVIDERS: PCP Family Medicine; Referring Provider Nurse Practitioner Acute Care; Visit Provider Nurse Practitioner Acute Care
DX: Z12.2 Encounter for screening for malignant neoplasm of respiratory organs (principal); F17.210 Nicotine dependence, cigarettes, uncomplicated
CPT/HCPCS: 71271

== ENCOUNTER 2023-11-29 19:07 | Emergency (ER) | payer MEDICARE, MEDICAID, SELFPAY ==
[2023-11-29 19:07] VITALS: BP 132/62; PULSE 73; RESP 18; TEMP 36.4; O2SAT 99; BMI 28.0
[2023-11-29 19:59] LABS: Absolute Neutrophil Count 2.7 X10^3/uL (2.0-7.7); Basophil# 0.04 X10^3/uL; Basophil% 0.9 % (0-1); Eosinophil# 0.11 X10^3/uL; Eosinophils% 2.4 % (0-5); Hematocrit 41.3 % (37-47); Hemoglobin 13.1 g/dL (12.0-15.0); Mean Corp Hgb Conc 31.7 g/dL (32-36); Mean Corpuscular Hgb 29.4 pg (27.0-32.0); Mean Corpuscular Volume 92.8 fL (81-99); Mean Platelet Vol. 8.6 fl (6.2-12.0); Monocyte# 0.33 X10^3/uL; Monocyte% 7.3 % (0-10); NRBC Flagged by Analyzer 0 % (0-5); Neutrophil % 60.2 % (47-70); Platelet Count 176 K/mm3 (150-450); RBC Distribution Width CV 13.8 % (11.6-14.6); RBC Distribution Width SD 47.2 fl (35.1-43.9); Red Blood Count 4.45 M/mm3 (4.2-5.4); White Blood Count 4.5 K/mm3 (4.4-11.0)
--- NOTE | 2023-11-29 20:23 | CT_ITS ---
STUDY: CT ABDOMEN AND PELVIS WITH CONTRAST REASON FOR EXAM: Female, 68 years old. lower abd pain RADIATION DOSAGE (If Supplied By Facility): CTDIvol = ( 15.95 ) mGy, DLP = ( 733.04 ) mGycm TECHNIQUE: Transaxial images were obtained from the dome of the diaphragm to the symphysis pubis without oral contrast. IV 100mL [id number]-[id number] was administered. Sagittal and coronal images were reconstructed. Individualized dose optimization techniques were used for this CT. COMPARISON: None. FINDINGS: The visualized lung bases are unremarkable. The visualized portions of the heart are within normal limits. Up to 1.7 cm cysts in the liver. Normal gallbladder and extrahepatic biliary system. Normal spleen. Normal pancreas. Normal bilateral adrenal glands. Parapelvic cysts of the kidneys. Normal visualized stomach. Normal small intestine. Fecal retention in the colon. The appendix is visualized and appears normal. Normal abdominal aorta. Normal inferior vena cava. Normal retroperitoneum. Normal urinary bladder. Normal abdominal wall. Normal osseous structures. CT/Abdomen/Pelvis W IV Cont ONLY IMPRESSION: Hepatic and renal cysts. Colonic fecal retention. Electronically Signed: Mike Leavitt DO at 22:10 EDT Reading Location ID and State: [facility] / [place] Tel [phone], Service support ,
[2023-11-29 20:28] LABS: AST(SGOT) 28 U/L (15-37); Alanine Aminotransfer ALT/SGPT 45 U/L (13-56); Albumin, Serum 3.6 g/dL (3.2-5.0); Alkaline Phosphatase 70 U/L (45-117); Anion Gap 4 (5-15); BUN 24 mg/dL (7-18); BUN/Creat Ratio 20.2 RATIO (10-20); Calcium,Total 9.2 mg/dL (8.5-10.1); Chloride 109 mmol/L (98-107); Creatinine, Serum 1.19 mg/dL (0.55-1.02); EST Glomerular Filtration Rate 48 mL/min (>60); Est Glom Filt Rate - Afr Amer 58 mL/min (>60); Estimated Creatinine Clearance 49.29 ml/min; Globulin 3.5 g/dL (2.2-4.2); Glucose 99 mg/dL (74-106); Protein, Total 7.1 g/dL (6.4-8.2); Sodium Level 141 mmol/L (136-145)
--- NOTE | 2023-11-29 20:28 | EDS_ITS ---
HPI HPI - GI History of Present Illness Chief Complaint: Abd Pain Detail of Chief Complaint: Diffuse abdominal pain. Informant: patient Abdominal Pain/Flank Pain Onset: Today Context: Gradual Onset Timing: Continuous Quality: Aching and Cramping Location: Diffuse Maximum Severity: Moderate Worsened by: Nothing Relieved by: Nothing Nausea/Vomiting/Emesis GI Symptom: Positive for Nausea Onset: Today Severity: Mild Diarrhea/Melena/Hematochezia GI Symptom: Negative for Diarrhea, Melena or Hematochezia Associated Symptoms Associated Symptoms: Negative for Dysuria, Frequency, Hematuria or Urgency Narrative Narrative: 68-year-old female history of prior PA and prior stroke. Denies any prior abdominal surgeries. States she has not had any significant bowel movement in the last 5 days since November 23. She denies any diarrhea. She denies any dysuria or fever. Mild nausea no vomiting. She is never anything like this before. Denies any abdominal trauma. No back pain. States it is diffuse crampy abdominal discomfort. Prior similar symptoms: No Recent Illness/Hospitalization: No PFSH PFSH Medical History Osteoporosis Kidney stones Kidney disease GERD (gastroesophageal reflux disease) Myocardial infarct Internal impingement of right shoulder Hypothyroidism Abnormal Holter monitor finding Sinus pause Mixed hyperlipidemia Atherosclerotic heart disease of [place] coronary artery without angina pectoris Essential hypertension Traumatic avulsion of nail plate of toe Thigh pain History of IBS Wears glasses Wears dentures Depression Anxiety Skin tear Bruising Thyroid disease Ambulates with cane History of renal disease Arthritis High cholesterol Easy bruising Restless legs Difficulty swallowing Difficulty chewing History of hiatal hernia Gastric reflux Former smoker Shortness of breath on exertion Stroke/cerebrovascular accident History of echocardiogram History of stress test History of heart attack History of irregular heartbeat Acute seasonal allergic rhinitis Acute serous otitis media Acute dysfunction of both eustachian tubes Fuchs' corneal dystrophy HTN (hypertension) COPD (chronic obstructive pulmonary disease) Bronchitis Constipation Abdominal pain Chest pain CAD (coronary artery disease) Hypoxia Diaphragm paralysis History of cerebrovascular disease History of CVA (cerebrovascular accident) Anxiety disorder Home Medications ?Medication ?Instructions ?Recorded ?Last Taken ?Type cholecalciferol (vitamin D3) 125 5,000 unit PO DAILY SUPPLEMENT 08/14/18 06/07/22 History mcg (5,000 unit) capsule levothyroxine 50 mcg tablet 50 mcg PO DAILY THYROID 08/17/21 06/07/22 History clopidogrel 75 mg tablet 75 mg PO DAILY BLOOD THINNER 30 06/08/22 07/13/22 Rx days #30 tabs atorvastatin 40 mg tablet 40 mg PO DAILY 07/01/22 Unknown History losartan 25 mg tablet 25 mg PO DAILY #90 tabs 09/29/22 Unknown Rx albuterol sulfate 90 mcg/actuation 2 puff inhalation Q6H PRN 12/14/22 Unknown Rx aerosol inhaler Shortness Of Breath #3 ea levocetirizine 5 mg tablet 5 mg PO DAILY ALLERGIES #90 tabs 12/14/22 Unknown Rx (Allergy Relief (levocetirizine)) budesonide 160 mcg-glycopyr 9 2 inh inhalation BID #3 ea 07/20/23 Unknown Rx mcg-formot 4.8 mcg/actuation HFA inhaler (Breztri Aerosphere) alendronate 70 mg tablet 70 mg PO Q7D 08/14/23 Unknown History cholecalciferol (vitamin D3) 125 125 mcg PO DAILY 08/14/23 Unknown History mcg (5,000 unit) tablet citalopram 10 mg tablet 10 mg PO DAILY 08/14/23 Unknown History meclizine 25 mg chewable tablet 25 mg PO TID PRN dizziness #30 tabs 08/14/23 Unknown Rx Allergy/AdvReac Type Severity Reaction Status Date / Time hydrocodone bitartrate (From Allergy HALLUCINATE Verified 11/29/23 19:09 Vicodin) S piperacillin (From Zosyn) Allergy Hives Verified 11/29/23 19:09 tazobactam (From Zosyn) Allergy Hives Verified 11/29/23 19:09 vancomycin Allergy Rash Verified 11/29/23 19:09 fish derived AdvReac Anaphylaxis Verified 11/29/23 19:09 morphine AdvReac HALLUCINATE Verified 11/29/23 19:09 S Family History Mother Diabetes Heart disease Hypertension High cholesterol Father Heart disease Hypertension High cholesterol CVA (cerebral vascular accident) Surgical History History of right breast biopsy History of surgery on lower extremity History of bilateral cataract extraction History of shoulder surgery History of tubal ligation Social History household members: significant other housing: apartment pets and animals: Yes pets and animals: dog(s) Smoking Status: Former smoker quit date: 10/28/19 pack-years: 25 Tobacco: How many years used: 25 second hand exposure: Yes alcohol intake: never substance use type: does not use caffeine: Yes Type: coffee Number of servings: 1 ROS ROS ED ROS Narrative Constipation. Abdominal cramping. Review of Systems ROS Unobtainable: Denies due to encephalopathy Constitutional Constitutional ED: Denies chills, fever(s) or subjective ENT ENT ED: Denies ear pain Cardiovascular Cardiovascular: Denies chest pain or palpitations Respiratory/Chest Respiratory/Chest: Denies cough or dyspnea Gastrointestinal Gastrointestinal: Reports abdominal pain, constipation and nausea; Denies diarrhea, melena or vomiting Genitourinary Genitourinary ED: Denies dysuria or hematuria Musculoskeletal Musculoskeletal: Denies arthralgias, back pain, myalgias or neck pain Integumentary Denies abscess or Abrasions Neurologic Neurologic: Denies headache(s), paresthesias or weakness Psychiatric Psychiatric: Denies anxiety or depression Endocrine Endocrinology: Denies polydipsia Hematologic/Lymphatic Hematologic/Lymphatic: Denies easy bleeding Allergic/Immunologic Allergic/Immunologic ED: Denies mouth swelling, tongue swelling or urticaria EXAM Physical Exam Narrative Exam Narrative: 68-year-old female no acute distress. Vital signs stable afebrile. H EENT exam unremarkable. Mytrex membranes. Lungs clear to auscultation. Heart regular rhythm no murmur. Chest nontender. Abdomen diffusely tender. No peritoneal signs. No localizing right upper or right lower quadrant tenderness. No hernia or mass. No pulsatile mass. Moving all 4 extremities. Nontender no edema. Back nontender. She is awake alert. No focal motor deficits. Const Vital Signs: 11/29/23 19:07 11/29/23 20:49 Temperature 97.6 F L Temperature Source Temporal Pulse Rate 73 59 L Respiratory Rate 18 16 Blood Pressure 132/62 H 148/74 H Blood Pressure Mean 85 98 Pulse Ox 99 96 Oxygen Delivery Method Room Air Room Air Positive well nourished and well developed; Negative for obese, cachectic, contractures or unkempt General Appearance ED: well developed and NAD; Negative for unkempt, cachectic, contractures or pallor Nutritional Appearance: Negative for cachectic or obese HEENT Reports moist mucous membranes; Denies dry mucous membranes normocephalic and atraumatic; Negative for trauma or tenderness Mouth ED: No dry mucous membranes Mouth: No dry mucous membranes Eyes PERRL and EOMs intact bilaterally General Eye ED: Negative for pale conjunctiva, scleral icterus or other Neck no lymphadenopathy, supple and no JVD General: Negative for tenderness Lymph Lymphatic: Negative for other Resp normal respiratory effort and clear to auscultation bilaterally Effort and Inspection: Negative for respiratory distress Auscultation: Negative for rales, rhonchi, wheezes, diminished lung sounds or other Cardio regular rate, regular rhythm, S1 normal heart sound, S2 normal heart sound and no murmurs Rate: Negative for bradycardia or tachycardic Rhythm: Negative for abnormal rhythm GI non-distended and no masses; Negative for non-tender GI Narrative: Diffusely tender abdomen. Inspection: Negative for abdominal distention Auscultation: normoactive bowel sounds Palpation: soft and tender; Negative for guarding, hernia, mass, pulsatile mass or rebound tenderness present Back/Spine no CVA tenderness General Back: Negative for CVA tenderness Cervical Spine: Negative for cervical spine tenderness Extremity full ROM General Extremety ED: Negative for edema or tenderness General Extremity: Negative for edema Neuro CN's II-XII intact bilaterally and moves all extremities Sensorium / Orientation: alert, oriented to person, oriented to place and oriented to time; Negative for orientation impaired or confused Motor Exam: strength 5/5 throughout; Negative for general weakness Psych mental status grossly normal and thought process normal Appearance: Negative for unkempt Attitude: No agitated Mood & Affect: Negative for depressed, anxious or tearful Skin no wounds General Skin Exam: Negative for jaundice or pallor Lesions: no lesions Rashes: no rashes Trauma: Negative for abrasion Nails: Negative for discolored MDM MDM MDM Narrative Medical decision making narrative: 68-year-old female with diffuse abdominal pain may be secondary to constipation. Rule diverticulitis or bowel obstruction. Currently she did not want a thing for pain or nausea. Labs and CAT scan are pending. Labs are unremarkable. CAT scan consistent with constipation. Repeat exam 10:15 PM. Patient is still mildly tender. She will be discharged home with [facility]. Return if worse. History & Record Review Discussion w/independent historian: Patient Additional record(s) reviewed:: Prior inpatient record, Prior outpatient record, Prior ED visit and Prior labs Lab Data Attestation: I reviewed the patient's lab results. Lab results narrative: CBC normal. White count of 4. H&H 13 and 41. Platelets 176. Electrolytes unremarkable gap 4. BUN 24 creatinine 1.19. Glucose 99. Liver tests are normal. Lipase normal at 26. Urinalysis shows 5-10 white cells but no bacteria nor nitrates and no urinary symptoms. Abdominal CAT scan consistent with constipation. Labs: Laboratory Results - last 24 hr 11/29/23 11/29/23 11/29/23 19:54 20:42 21:29 WBC 4.5 RBC 4.45 Hgb 13.1 Hct 41.3 MCV 92.8 MCH 29.4 MCHC 31.7 L RDW Std Deviation 47.2 H RDW Coeff of [place] 13.8 Plt Count 176 MPV 8.6 Immature Gran % (Auto) 0.200 Neut % (Auto) 60.2 Lymph % (Auto) 29.0 [place] % (Auto) 7.3 Eos % (Auto) 2.4 Baso % (Auto) 0.9 Absolute Neuts (auto) 2.7 Absolute Lymphs (auto) 1.30 Nucleated RBC % 0 Sodium 141 Potassium 4.0 Chloride 109 H Carbon Dioxide 28.0 Anion Gap 4 L BUN 24 H Creatinine 1.19 H Estim Creat Clear Calc 49.29 Est GFR (MDRD) Af Amer 58 L Est GFR (MDRD) Non-Af 48 L BUN/Creatinine Ratio 20.2 H Glucose 99 Calcium 9.2 Total Bilirubin 0.40 AST 28 ALT 45 Alkaline Phosphatase 70 Total Protein 7.1 Albumin 3.6 Globulin 3.5 Albumin/Globulin Ratio 1.0 Lipase 26 Urine Color Yellow Urine Clarity Clear Urine pH 5.0 Ur Specific [place] 1.025 Urine Protein Negative Urine Glucose (UA) Normal Urine Ketones Negative Urine Occult Blood Negative Urine Nitrite Negative Urine Bilirubin Negative Urine Urobilinogen Normal Ur Leukocyte Esterase 500 H Urine RBC 0 SEEN Urine WBC 5-10 SEEN Ur Squamous Epith Cells 0-5 SEEN Urine Bacteria 0 SEEN Urine Mucus 0 SEEN Radiography Diagnostic Testing: Clinical Impression(s) from Imaging Studies Abdomen/Pelvis CT 11/29/23 20:23 IMPRESSION: Hepatic and renal cysts. Colonic fecal retention. Electronically Signed: Mike Leavitt DO at 22:10 EDT Reading Location ID and State: [facility] / [place] Tel [phone], Service support , Discharge Plan Triage Chief Complaint: Abd Pain ED Provider: Dustin Pierre Dx/Rx/DC Orders Clinical Impression: Abdominal pain, Acute constipation, History of stroke Instructions: ED Constipation (Adult) Prescriptions: No Action cholecalciferol (vitamin D3) 5,000 unit capsule 5,000 unit PO DAILY levothyroxine 50 mcg tablet 50 mcg PO DAILY atorvastatin 40 mg tablet 40 mg PO DAILY losartan 25 mg tablet 25 mg PO DAILY Qty: 90 3RF albuterol sulfate 90 mcg/actuation HFA aerosol inhaler 2 puff inhalation Q6H PRN (Reason: Shortness Of Breath) Qty: 3 3RF levocetirizine [Allergy Relief (levocetirizin)] 5 mg tablet 5 mg PO DAILY Qty: 90 3RF clopidogrel 75 MG tablet 75 mg PO DAILY 30 Days Qty: 30 0RF alendronate 70 mg tablet 70 mg PO Q7D Patient Comments: PLEASE SEE ATTACHED FOR DETAILED DIRECTIONS citalopram 10 mg tablet 10 mg PO DAILY cholecalciferol (vitamin D3) 125 mcg (5,000 unit) tablet 125 mcg PO DAILY meclizine 25 mg tablet,chewable 25 mg PO TID PRN (Reason: dizziness) Qty: 30 0RF Breztri Aerosphere 160-9-4.8 mcg/actuation HFA aerosol inhaler 2 inh inhalation BID Qty: 3 3RF Primary Care Provider: Bird Ronquillo Referrals: Bird Ronquillo MD [Primary Care Provider] - 3-5 Days if not improving Activity Restrictions/Additional Instructions: Plenty of fluids, fiber fruits and vegetables. Make sure you are walking. This should all help with your constipation. You can also use MiraLAX. You can get that [id number]. We are sending you home with [email or web address]. Drink a 6 to 8 ounce glass every hour until you have a large bowel movement. Follow-up with your doctor as needed. Return if you are feeling worse. Increasing pain, fever or vomiting. Print Language: Lithuanian Disposition Disposition: Home, Self Care
[2023-11-29 20:43] LABS: Bacteria 0 SEEN /hpf (None Seen); Mucous, Urine 0 SEEN /hpf (<or=2+); Red Blood Cells-Urine 0 SEEN /hpf (0-5)
[2023-11-29 20:48] LABS: Color, Urine Yellow (Yellow); Glucose, Dipstick Normal (Normal); Ketone-Dipstick Negative (Negative); Leukocyte Esterase-Dipstick 500 /ul (Negative); Nitrite-Dipstick Negative (Negative); Occult Blood-Urine Negative /ul (Negative); Protein-Dipstick Negative (Negative); Specific Gravity, Urine 1.025 (1.002-1.030); Urine Bilirubin Dipstick Negative (Negative); Urine Clarity Clear (Clear); Urine Urobilinogen Normal (Normal)
[2023-11-29 20:49] VITALS: BP 148/74; PULSE 59; RESP 16; O2SAT 96
[2023-11-29 20:56] LABS: Squamous Epithelial Cells - UA 0-5 SEEN /hpf (5-10); White Blood Cells 5-10 SEEN /hpf (0-5)
[2023-11-29 22:05] LABS: Lipase 26 U/L (13-75)
[2023-11-29 22:26] VITALS: BP 138/66; PULSE 67; RESP 16; TEMP 36.8; O2SAT 96
[2023-11-29] MEDS: Electrolyte Solution/Peg's 4000 ML 2000 ML PO (22:30)
== END 2023-11-29 22:33 | disposition home or self-care (01) ==
PROVIDERS: Emergency Provider Emergency Medicine; PCP Family Medicine; Visit Provider Emergency Medicine
DX: R10.9 Unspecified abdominal pain (principal); J44.9 Chronic obstructive pulmonary disease, unspecified; K59.00 Constipation, unspecified; I25.10 Atherosclerotic heart disease of native coronary artery without angina pectoris; I10 Essential (primary) hypertension; Z87.891 Personal history of nicotine dependence; Z79.51 Long term (current) use of inhaled steroids; Z79.899 Other long term (current) drug therapy; Z79.01 Long term (current) use of anticoagulants; I25.2 Old myocardial infarction; Z86.73 Personal history of transient ischemic attack (TIA), and cerebral infarction without residual deficits
CPT/HCPCS: 74177; 80053; 81001; 83690; 85025; 99283; Q9967; A4216

== ENCOUNTER 2024-01-16 12:47 | Emergency (ER) | payer MEDICARE, MEDICAID, SELFPAY ==
[2024-01-16 12:48] VITALS: TEMP 36.4; BMI 28.0
[2024-01-16 12:50] VITALS: BP 159/73; PULSE 57; RESP 18; O2SAT 95
--- NOTE | 2024-01-16 13:15 | RAD_ITS ---
STUDY: X-RAY CHEST REASON FOR EXAM: Female, 68 years old. Chest pain TECHNIQUE: Single AP portable view of the chest. COMPARISON: Comparison is made with prior study of August 14, 2023. FINDINGS: EKG electrodes are seen. Hyperinflation. The lungs are clear. There is no demonstrated pleural abnormality. Normal size heart. Normal mediastinum and omero. Normal visualized pulmonary arteries. Normal visualized aortic arch and descending thoracic aorta. There are degenerative changes of the visualized thoracic spine. Normal visualized ribs, clavicles, and shoulders. There is no demonstrated abnormality of the visualized soft tissue structures of the upper abdomen. RAD/Chest 1 View (Portable) IMPRESSION: Hyperinflation. The lungs are clear. Electronically Signed: Oskar Castillo MD at 13:26 EDT ,
--- NOTE | 2024-01-16 13:20 | EDS_ITS ---
HPI History of Present Illness Chief Complaint: Chest Pain Informant: patient and spouse/S.O. Onset/Context/Timing Onset: Today Timing: Continuous Quality: Positive for Sharp Location: Substernal Current Severity: Mild Maximum Severity: Mild Worsened By: Nothing; Not Worsened By Exertion Relieved By: Nothing Associated Symptoms: Negative for Nausea, Vomiting, Diaphoresis, Dyspnea, Cough, Fever, Lightheadedness, Acid Reflux or Palpitations Narrative Narrative: 68-year-old female report history of CAD hypertension, COPD on Plavix. Chronic kidney disease. Serotonin today she had sharp lower sternal chest pain. No ra diation. No fall or trauma. Denies any exertional shortness of breath or exertional chest pain recently. Denies any leg pain or swelling. Last heart catheter 3 years ago. She has never needed a stent. Prior Similar Symptoms: Yes Recent Illness/Hospitalization: No CVD Risk Factors: Negative for Diabetes PE Risk Factors: Negative for Recent Travel/Surgery, Recent Immobilization, Prior DVT or PE, Cancer or OCP + Smoking + >/=35 TAD Risk Factors: Positive for Marfan's Syndrome [facility] Medical History Osteoporosis Kidney stones Kidney disease GERD (gastroesophageal reflux disease) Myocardial infarct Internal impingement of right shoulder Hypothyroidism Abnormal Holter monitor finding Sinus pause Mixed hyperlipidemia Atherosclerotic heart disease of [place] coronary artery without angina pectoris Essential hypertension Traumatic avulsion of nail plate of toe Thigh pain History of IBS Wears glasses Wears dentures Depression Anxiety Skin tear Bruising Thyroid disease Ambulates with cane History of renal disease Arthritis High cholesterol Easy bruising Restless legs Difficulty swallowing Difficulty chewing History of hiatal hernia Gastric reflux Former smoker Shortness of breath on exertion Stroke/cerebrovascular accident History of echocardiogram History of stress test History of heart attack History of irregular heartbeat Acute seasonal allergic rhinitis Acute serous otitis media Acute dysfunction of both eustachian tubes Fuchs' corneal dystrophy HTN (hypertension) COPD (chronic obstructive pulmonary disease) Bronchitis Constipation Abdominal pain Chest pain CAD (coronary artery disease) Hypoxia Diaphragm paralysis History of cerebrovascular disease History of CVA (cerebrovascular accident) Anxiety disorder Home Medications ?Medication ?Instructions ?Recorded ?Last Taken ?Type levothyroxine 50 mcg tablet 50 mcg PO DAILY THYROID 08/17/21 06/07/22 History clopidogrel 75 mg tablet 75 mg PO DAILY BLOOD THINNER 30 06/08/22 07/13/22 Rx days #30 tabs atorvastatin 40 mg tablet 40 mg PO DAILY 07/01/22 Unknown History losartan 25 mg tablet 25 mg PO DAILY #90 tabs 09/29/22 Unknown Rx alendronate 70 mg tablet 70 mg PO Q7D 08/14/23 Unknown History cholecalciferol (vitamin D3) 125 125 mcg PO DAILY 08/14/23 Unknown History mcg (5,000 unit) tablet citalopram 10 mg tablet 10 mg PO DAILY 08/14/23 Unknown History meclizine 25 mg chewable tablet 25 mg PO TID PRN dizziness #30 tabs 08/14/23 Unknown Rx fluticasone fur. 200 mcg-umeclid 1 inh inhalation DAILY #60 ea 12/01/23 Unknown Rx 62.5 mcg-vilant 25 mcg inhalat.powder (Trelegy Ellipta) montelukast 10 mg tablet 10 mg PO DAILY 12/01/23 Unknown History levocetirizine 5 mg tablet 5 mg PO DAILY ALLERGIES #90 tabs 01/01/24 Unknown Rx (Allergy Relief (levocetirizine)) albuterol sulfate 90 mcg/actuation 2 puff inhalation Q6H PRN 01/02/24 Unknown Rx aerosol inhaler Shortness Of Breath #3 ea multivitamin (One Daily 1 tab PO DAILY 01/16/24 Unknown History Multivitamin tablet) Allergy/AdvReac Type Severity Reaction Status Date / Time hydrocodone bitartrate (From Allergy HALLUCINATE Verified 01/16/24 12:53 Vicodin) S piperacillin (From Zosyn) Allergy Hives Verified 01/16/24 12:53 tazobactam (From Zosyn) Allergy Hives Verified 01/16/24 12:53 vancomycin Allergy Rash Verified 01/16/24 12:53 fish derived AdvReac Anaphylaxis Verified 01/16/24 12:53 morphine AdvReac HALLUCINATE Verified 01/16/24 12:53 S Family History Mother Diabetes Heart disease Hypertension High cholesterol Father Heart disease Hypertension High cholesterol CVA (cerebral vascular accident) Surgical History History of right breast biopsy History of surgery on lower extremity History of bilateral cataract extraction History of shoulder surgery History of tubal ligation Social History household members: significant other housing: apartment pets and animals: Yes pets and animals: dog(s) Smoking Status: Former smoker quit date: 10/28/19 pack-years: 25 Tobacco: How many years used: 25 second hand exposure: Yes alcohol intake: never substance use type: does not use caffeine: Yes Type: coffee Number of servings: 1 ROS ROS ED ROS Narrative Denies any recent exertional chest pain nor any exertional dyspnea. Constitutional Constitutional ED: Denies chills or fever(s) Eyes Eyes: Reports none ENT ENT ED: Denies ear pain Cardiovascular Cardiovascular: Reports as per HPI and chest pain; Denies orthopnea, palpitations or racing heartbeat Respiratory/Chest Respiratory/Chest: Denies cough, dyspnea, dyspnea on exertion or orthopnea Gastrointestinal Gastrointestinal: Denies abdominal pain or constipation Genitourinary Genitourinary ED: Denies dysuria or hematuria Musculoskeletal Musculoskeletal: Denies arthralgias or back pain Integumentary Denies abscess Neurologic Neurologic: Denies headache(s) Psychiatric Psychiatric: Denies anxiety or depression Endocrine Endocrinology: Denies cold intolerance Hematologic/Lymphatic Hematologic/Lymphatic: Denies easy bleeding Allergic/Immunologic Allergic/Immunologic ED: Denies mouth swelling or tongue swelling EXAM Physical Exam Narrative Exam Narrative: Six 8-year-old female vital signs stable afebrile. Pulse ox 95% on room air no hypoxia. Sitting upright in bed. No distress. Spouse with her. H EENT exam unremarkable. Neck nontender. Lungs clear to auscultation bilaterally. Heart regular rate and rhythm no murmur. She does have reproducible pain over her lower sternum. No ecchymosis or bruising. No crepitance or subcu air. Normal appearance. Same pain she states she is having. Abdomen is soft and nontender. Normal bowel sounds no peritoneal signs. Moving all 4 extremities. Calves are nontender without edema. 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 Normal dorsi plantarflexion. Equal symmetrical radial pulses. Back nontender. She is awake and alert. No focal motor deficits. Const Vital Signs: 01/16/24 12:48 01/16/24 12:50 01/16/24 13:25 Temperature 97.5 F L Temperature Source Oral Pulse Rate 57 L 53 L Respiratory Rate 18 20 H Blood Pressure 159/73 H 174/85 H Blood Pressure Mean 101 114 Pulse Ox 95 94 Oxygen Delivery Method Room Air Room Air 01/16/24 15:00 Temperature Temperature Source Pulse Rate 48 L Respiratory Rate 11 L Blood Pressure 181/70 H Blood Pressure Mean 100 Pulse Ox 97 Oxygen Delivery Method Positive well nourished and well developed; Negative for cachectic, contractures or unkempt General Appearance ED: well developed and NAD; Negative for unkempt, cachectic, contractures or pallor Nutritional Appearance: Negative for cachectic HEENT Reports moist mucous membranes; Denies dry mucous membranes normocephalic and atraumatic; Negative for trauma or tenderness Mouth ED: No dry mucous membranes Mouth: No dry mucous membranes Eyes PERRL and EOMs intact bilaterally General Eye ED: Negative for pale conjunctiva, scleral icterus or other Neck no lymphadenopathy, supple and no JVD General: Negative for tenderness Chest Wall inspection of chest normal and palpation of chest normal Chest: Negative for tenderness Resp normal respiratory effort and clear to auscultation bilaterally Effort and Inspection: Negative for respiratory distress Auscultation: Negative for rales, rhonchi, wheezes or diminished lung sounds Cardio regular rate, regular rhythm, S1 normal heart sound, S2 normal heart sound and no murmurs Rate: Negative for bradycardia or tachycardic Peripheral Pulses: pulses 2+ throughout GI normal to inspection, nondistended, normoactive bowel sounds, soft to palpation, non-tender, non-distended and no masses Back/Spine no CVA tenderness and no thoracic nor lumbar tenderness General Back: Negative for CVA tenderness Cervical Spine: Negative for cervical spine tenderness Extremity normal to inspection General Extremety ED: Negative for edema, pulses abnormal or tenderness General Extremity: Negative for edema or pulses abnormal Neuro CN's II-XII intact bilaterally Sensorium / Orientation: awake, alert, oriented to person and oriented to place; Negative for oriented to time, confused or lethargic Motor Exam: strength 5/5 throughout Psych mental status grossly normal Appearance: Negative for unkempt Attitude: No agitated Mood & Affect: Negative for depressed, anxious or tearful Skin no rashes or lesions noted and no wounds General Skin Exam: Negative for jaundice or pallor Rashes: No rashes noted Trauma: Negative for abrasion, laceration or puncture Heart Score History: Slightly/Non-Suspicious ECG: Normal Age: >/= 65 years Risk Factors: >/= 3 Risk Factors or History of CAD Troponin: </= Normal Limit Score: 4 MDM MDM MDM Narrative Medical decision making narrative: 68-year-old female with midsternal chest pain is reproducible at rest. No recent exertional chest pain nor exertional dyspnea. Undergo a cardiac workup. This appears at least on exam to be reproducible pain. Rule out cardiac etiology or FL. Repeat exam at 3:19 PM patient resting comfortably. Has continued reproducible sternal discomfort which is why I think is causing her pain. I do not think it is cardiac. Patient given [place] for pain. She refused morphine. We are awaiting the second troponin. If that is unremarkable should be discharged to home. Repeat exam patient doing well at 4 PM be discharged to home. History & Record Review Discussion w/independent historian: Patient Additional record(s) reviewed:: Prior inpatient record, Prior outpatient record and Prior ED visit Lab Data Attestation: I reviewed the patient's lab results. Lab results narrative: CBC unremarkable. White count of 4. H&H 13 and 40. Platelets 177. Electrolytes show gap of 3. BUN and creatinine are normal. Glucose 97. Initial troponin 5. 2-hour troponin 5 also. Chest x-ray unremarkable. Labs: Laboratory Results - last 24 hr 01/16/24 01/16/24 13:26 15:33 WBC 4.2 L RBC 4.36 Hgb 13.0 Hct 40.4 MCV 92.7 MCH 29.8 MCHC 32.2 RDW Std Deviation 45.6 H RDW Coeff of Keo 13.2 Plt Count 177 MPV 8.8 Immature Gran % (Auto) 0.200 Neut % (Auto) 63.0 Lymph % (Auto) 21.4 Blount % (Auto) 8.7 Eos % (Auto) 5.5 H Baso % (Auto) 1.2 H Absolute Neuts (auto) 2.6 Absolute Lymphs (auto) 0.89 Nucleated RBC % 0 Sodium 141 Potassium 4.0 Chloride 109 H Carbon Dioxide 29.0 Anion Gap 3 L BUN 17 Creatinine 0.97 Estim Creat Clear Calc 60.47 Est GFR (MDRD) Af Amer 73 Est GFR (MDRD) Non-Af 61 BUN/Creatinine Ratio 17.5 Glucose 97 Calcium 8.9 Troponin I High Sens 5 5 Radiography Chest X-Ray - ED: Read by ED Physician, Read by Radiologist, Normal, Heart, Lungs, Mediastinum, Bony Structures and No Acute Disease Diagnostic Testing: Clinical Impression(s) from Imaging Studies Chest X-Ray 01/16/24 13:15 IMPRESSION: Hyperinflation. The lungs are clear. Electronically Signed: Oskar Castillo MD at 13:26 EDT , Chest x-ray, portable, single view interpreted both by myself and radiologist shows no acute abnormality. Normal cardiac silhouette. Normal lung heller. Normal mediastinum. Rhythm Strip Rhythm Strip: Sinus Rhythm Rate: 58 Ectopy: None EKG Initial EKG: Attestation: I personally reviewed and interpreted this EKG as follows: Interpretation: Sinus Rhythm and Sinus Bradycardia Comments: Sinus bradycardia rate of 58 no acute signs of FL or ischemia. No dysrhythmia. Discharge Plan Triage Chief Complaint: Chest Pain ED Provider: Dustin Pierre Dx/Rx/DC Orders Clinical Impression: Chest pain, Chest wall pain, History of COPD Instructions: ED Chest Wall Pain, Costochondritis Prescriptions: No Action levothyroxine 50 mcg tablet 50 mcg PO DAILY atorvastatin 40 mg tablet 40 mg PO DAILY losartan 25 mg tablet 25 mg PO DAILY Qty: 90 3RF montelukast 10 mg tablet 10 mg PO DAILY Trelegy Ellipta 200-62.5-25 mcg blister with device 1 inh inhalation DAILY Qty: 60 6RF clopidogrel 75 MG tablet 75 mg PO DAILY 30 Days Qty: 30 0RF alendronate 70 mg tablet 70 mg PO Q7D Patient Comments: PLEASE SEE ATTACHED FOR DETAILED DIRECTIONS citalopram 10 mg tablet 10 mg PO DAILY cholecalciferol (vitamin D3) 125 mcg (5,000 unit) tablet 125 mcg PO DAILY meclizine 25 mg tablet,chewable 25 mg PO TID PRN (Reason: dizziness) Qty: 30 0RF multivitamin [One Daily Multivitamin] Tablet 1 tab PO DAILY levocetirizine [Allergy Relief (levocetirizin)] 5 mg tablet 5 mg PO DAILY Qty: 90 3RF albuterol sulfate 90 mcg/actuation HFA aerosol inhaler 2 puff inhalation Q6H PRN (Reason: Shortness Of Breath) Qty: 3 3RF Primary Care Provider: Bird Ronquillo Referrals: Bird Ronquillo MD [Primary Care Provider] - As Needed Activity Restrictions/Additional Instructions: Your tests look good. Today's chest pain was chest wall pain. Is reproducible over the your sternum. Ice to that area. Tylenol for pain. Limited Motrin. Follow-up if not improving. Print Language: Bulgarian Disposition Disposition: Home, Self Care
[2024-01-16] MEDS: Aspirin 81 MG TAB.CHEW 324 MG PO (13:22)
[2024-01-16 13:25] VITALS: BP 174/85; PULSE 53; RESP 20; O2SAT 94
[2024-01-16 13:33] LABS: Absolute Lymphocyte Count 0.89 X10^3/uL (0.83-4.51); Absolute Neutrophil Count 2.6 X10^3/uL (2.0-7.7); Basophil# 0.05 X10^3/uL; Basophil% 1.2 % (0-1); Eosinophil# 0.23 X10^3/uL; Eosinophils% 5.5 % (0-5); Hematocrit 40.4 % (37-47); Lymphocyte # 0.89 X10^3/ul (0.83-4.51); Lymphocyte % 21.4 % (19-41); Mean Corp Hgb Conc 32.2 g/dL (32-36); Mean Corpuscular Hgb 29.8 pg (27.0-32.0); Mean Corpuscular Volume 92.7 fL (81-99); Mean Platelet Vol. 8.8 fl (6.2-12.0); Monocyte# 0.36 X10^3/uL; Monocyte% 8.7 % (0-10); NRBC Flagged by Analyzer 0 % (0-5); Neutrophil # 2.61 X10^3/uL (2.7-7.7); Platelet Count 177 K/mm3 (150-450); RBC Distribution Width CV 13.2 % (11.6-14.6); RBC Distribution Width SD 45.6 fl (35.1-43.9); Red Blood Count 4.36 M/mm3 (4.2-5.4); White Blood Count 4.2 K/mm3 (4.4-11.0)
[2024-01-16 13:55] LABS: Anion Gap 3 (5-15); BUN 17 mg/dL (7-18); BUN/Creat Ratio 17.5 RATIO (10-20); Calcium,Total 8.9 mg/dL (8.5-10.1); Chloride 109 mmol/L (98-107); Creatinine, Serum 0.97 mg/dL (0.55-1.02); EST Glomerular Filtration Rate 61 mL/min (>60); Est Glom Filt Rate - Afr Amer 73 mL/min (>60); Estimated Creatinine Clearance 60.47 ml/min; Glucose 97 mg/dL (74-106); Sodium Level 141 mmol/L (136-145); Troponin-I HS (w/2H Reflex) 5 pg/mL (3.0-54.0)
[2024-01-16 15:00] VITALS: BP 181/70; PULSE 48; RESP 11; O2SAT 97
[2024-01-16 15:30] LABS: Reflex Troponin-HS? (from REC) Y
[2024-01-16] MEDS: Ondansetron 4 MG/2 ML Vial IV (15:32)
[2024-01-16] MEDS: HYDROcodone Bitartrate/Apap 5/325 Tablet PO (15:46)
[2024-01-16 15:59] LABS: Troponin-I HS 5 pg/mL (3.0-54.0)
[2024-01-16 16:33] VITALS: BP 156/65; PULSE 72; RESP 15; TEMP 36.6; O2SAT 98
== END 2024-01-16 16:34 | disposition home or self-care (01) ==
PROVIDERS: Emergency Provider Emergency Medicine; PCP Family Medicine; Visit Provider Emergency Medicine
DX: R07.89 Other chest pain (principal); J44.9 Chronic obstructive pulmonary disease, unspecified; N18.9 Chronic kidney disease, unspecified; I12.9 Hypertensive chronic kidney disease with stage 1 through stage 4 chronic kidney disease, or unspecified chronic kidney disease; Q87.40 Marfan syndrome, unspecified; I25.10 Atherosclerotic heart disease of native coronary artery without angina pectoris; Z87.891 Personal history of nicotine dependence; Z79.02 Long term (current) use of antithrombotics/antiplatelets; K21.9 Gastro-esophageal reflux disease without esophagitis; E78.2 Mixed hyperlipidemia
CPT/HCPCS: 71045; 80048; 84484; 85025; 93005; 96374; 99284; A4216; J2405

== ENCOUNTER 2024-01-22 16:17 | Emergency (ER) | payer MEDICARE, MEDICAID, SELFPAY ==
[2024-01-22 16:19] VITALS: BP 137/74; PULSE 60; RESP 18; TEMP 36.3; O2SAT 95; BMI 28.0
--- NOTE | 2024-01-22 17:01 | ED.RN ---
Pt stated she was no longer going to wait to be seen.
== END 2024-01-22 16:52 | disposition left against medical advice (07) ==
LOC: ED 17:09
PROVIDERS: PCP Family Medicine
DX: Z53.21 Procedure and treatment not carried out due to patient leaving prior to being seen by health care provider (principal)

== ENCOUNTER → 2024-02-01 | Outpatient (CLI) | payer MEDICARE, MEDICAID, SELFPAY | END | disposition home or self-care (01) | LOC: PSN 12:34 | PROVIDERS: PCP Family Medicine; Referring Provider Nurse Practitioner Acute Care; Visit Provider Nurse Practitioner Acute Care | DX: J44.9 Chronic obstructive pulmonary disease, unspecified (principal) | CPT/HCPCS: 94060; 94726; 94729 ==

== ENCOUNTER → 2024-02-02 | Outpatient (CLI) | payer MEDICARE, MEDICAID, SELFPAY ==
[2024-02-02 12:42] VITALS: PULSE 100; PULSE 68; PULSE 71; PULSE 92; PULSE 93; PULSE 94; PULSE 95; O2SAT 84; O2SAT 89; O2SAT 90; O2SAT 91; O2SAT 92; O2SAT 94
--- NOTE | 2024-02-02 12:46 | CPS ---
Patient does not currently have DME service at home. She has h/o strokes but denies need for use of cane or assistive device. Patient denied increased work of breathing throughout testing however SPO2 on RA began to fall once testing began. At 2min into testing, rest taken to apply nasal cannula at 2LPLM for SPO2 at 84% RA. Spo2 increased to and remained at or above 90% on 2LPM for the remainder of the test. Patient ambulated 796ft. Pulmonary rehab was discussed with patient and information on the program given to patient to discuss at her follow-up if interested. She prefers to use a local DME (if covered by insurance) and would like to have POC or smaller device than E-tank for easier handling with travel. She feels this will improve her compliance with use outside of her home environment.
--- NOTE | 2024-02-02 13:13 | CPS ---
[facility] MADE AWARE THAT PATIENT REQUIRED 2LPM O2 DURING WALK TEST AND WILL NEED SET UP AT HOME. PRELIMINARY TESTING AND NOTE FAXED TO THEIR OFFICE FOR F/U.
--- NOTE | 2024-02-09 09:43 | WT_ITS ---
PSN 6 Minute Walk Test 6 Minute Walk Test 6 Minute Walk Test: 6 Minute Walk Test PSN:6-Minute Walk Test Start: 02/02/24 12:42 Freq: Status: Active Protocol: [id number] Document 02/02/24 12:42 [facility] (Rec: 02/02/24 12:56 [facility] [id number]) 6 Minute Walk Test Date Performed 02/02/24 Time Performed 12:30 Height 5 ft 6 in Weight: 166 lb Weight in Pounds 166.[address]: Vanessa Fernandez ARCHITECT Assistive device used: None Pre-test Oxygen Delivery Method Room Air Pulse Ox (%) 94 Pulse Rate (60-100 beats/min) 68 Dyspnea Pb Scale (0-10) 0 1st minute Oxygen Delivery Method Room Air Pulse Ox (%) 89 Pulse Rate (60-100 beats/min) 94 Dyspnea Pb Scale (0-10) 0 Number of Rests Taken 0 2nd minute Oxygen Delivery Method Room Air Pulse Ox (%) 84 Pulse Rate (60-100 beats/min) 100 Dyspnea Pb Scale (0-10) 0 Number of Rests Taken 1 3rd minute Oxygen Flow Rate (L/min) (L/min) 2 Oxygen Delivery Method Nasal Cannula Pulse Ox (%) 90 Pulse Rate (60-100 beats/min) 92 Dyspnea Pb Scale (0-10) 0 Number of Rests Taken 0 4th minute Oxygen Flow Rate (L/min) (L/min) 2 Oxygen Delivery Method Nasal Cannula Pulse Ox (%) 91 Pulse Rate (60-100 beats/min) 95 Dyspnea Pb Scale (0-10) 0 Number of Rests Taken 0 5th minute Oxygen Flow Rate (L/min) (L/min) 2 Oxygen Delivery Method Nasal Cannula Pulse Ox (%) 90 Pulse Rate (60-100 beats/min) 93 Dyspnea Pb Scale (0-10) 0 Number of Rests Taken 0 6th minute Oxygen Flow Rate (L/min) (L/min) 2 Oxygen Delivery Method Nasal Cannula Pulse Ox (%) 91 Pulse Rate (60-100 beats/min) 94 Dyspnea Pb Scale (0-10) 0 Number of Rests Taken 0 Post-test Oxygen Delivery Method Room Air Pulse Ox (%) 92 Pulse Rate (60-100 beats/min) 71 Dyspnea Pb Scale (0-10) 0 Full Laps Walked 13 Partial Lap, Number of Tiles Walked 29 Total Distance Walked (ft) 796 02/02/24 12:46 [facility] Services by Candace Paul Patient does not currently have DME service at home. She has h/o strokes but denies need for use of cane or assistive device. Patient denied increased work of breathing throughout testing however SPO2 on RA began to fall once testing began. At 2min into testing, rest taken to apply nasal cannula at 2LPLM for SPO2 at 84% RA. Spo2 increased to and remained at or above 90% on 2LPM for the remainder of the test. Patient ambulated 796ft. Pulmonary rehab was discussed with patient and information on the program given to patient to discuss at her follow-up if interested. She prefers to use a local DME (if covered by insurance) and would like to have POC or smaller device than E-tank for easier handling with travel. She feels this will improve her compliance with use outside of her home environment. Initialized on 02/02/24 12:46 - END OF NOTE Interpretation Interpretation: The patient ambulated 796 feet over the course of 6 minutes beginning on room air without assistive devices. Pretesting oxygen saturation was noted to be 94% on room air. With ambulation, the emi oxygen saturation was 84%, requiring 2 L/min of supplemental oxygen to maintain appropriate saturations throughout the remainder of the test. Recommendations Recommendations: 2 L/min of supplemental oxygen should be realized with exertion.
== END | disposition home or self-care (01) ==
LOC: PSN 11:46
PROVIDERS: PCP Family Medicine; Referring Provider Nurse Practitioner Acute Care; Visit Provider Nurse Practitioner Acute Care
DX: J44.9 Chronic obstructive pulmonary disease, unspecified (principal)
CPT/HCPCS: 94618

== ENCOUNTER 2024-02-09 15:04 | Emergency (ER) | payer MEDICARE, MEDICAID, SELFPAY ==
[2024-02-09 15:05] VITALS: BP 122/59; PULSE 60; RESP 18; TEMP 36; O2SAT 94; BMI 25.3
[2024-02-09 16:37] LABS: Absolute Lymphocyte Count 0.75 X10^3/uL (0.83-4.51); Basophil# 0.03 X10^3/uL; Basophil% 0.7 % (0-1); Eosinophil# 0.21 X10^3/uL; Eosinophils% 4.9 % (0-5); Hemoglobin 13.6 g/dL (12.0-15.0); Lymphocyte # 0.75 X10^3/ul (0.83-4.51); Lymphocyte % 17.5 % (19-41); Mean Corp Hgb Conc 31.6 g/dL (32-36); Mean Corpuscular Volume 94.7 fL (81-99); Mean Platelet Vol. 8.8 fl (6.2-12.0); Monocyte# 0.28 X10^3/uL; Monocyte% 6.5 % (0-10); NRBC Flagged by Analyzer 0 % (0-5); Neutrophil # 3.01 X10^3/uL (2.7-7.7); Neutrophil % 70.2 % (47-70); Platelet Count 188 K/mm3 (150-450); RBC Distribution Width CV 13.9 % (11.6-14.6); RBC Distribution Width SD 47.9 fl (35.1-43.9); Red Blood Count 4.54 M/mm3 (4.2-5.4); White Blood Count 4.3 K/mm3 (4.4-11.0)
[2024-02-09 16:52] LABS: ALB/GLOB Ratio 0.9 RATIO (0.9-2.4); AST(SGOT) 23 U/L (15-37); Alanine Aminotransfer ALT/SGPT 34 U/L (13-56); Albumin, Serum 3.4 g/dL (3.2-5.0); Alkaline Phosphatase 80 U/L (45-117); Anion Gap 3 (5-15); BUN 10 mg/dL (7-18); BUN/Creat Ratio 11.3 RATIO (10-20); Calcium,Total 8.9 mg/dL (8.5-10.1); Chloride 108 mmol/L (98-107); Creatinine, Serum 0.89 mg/dL (0.55-1.02); EST Glomerular Filtration Rate 68 mL/min (>60); Est Glom Filt Rate - Afr Amer 82 mL/min (>60); Estimated Creatinine Clearance 62.89 ml/min; Globulin 3.6 g/dL (2.2-4.2); Glucose 100 mg/dL (74-106); Potassium 3.7 mmol/L (3.5-5.1); Sodium Level 140 mmol/L (136-145)
== END 2024-02-09 17:25 | disposition left against medical advice (07) ==
LOC: ED 17:27
PROVIDERS: PCP Family Medicine
DX: Z00.00 Encounter for general adult medical examination without abnormal findings (principal)
CPT/HCPCS: 99281; 80053; 85025; A4216

== ENCOUNTER 2024-02-11 22:23 | Emergency (ER) | payer MEDICARE, MEDICAID, SELFPAY ==
[2024-02-11 22:24] VITALS: BP 172/92; PULSE 87; RESP 16; TEMP 36.6; O2SAT 94; BMI 27.7
--- NOTE | 2024-02-11 22:42 | CT_ITS ---
EXAM: CT ABDOMEN AND PELVIS WITH INTRAVENOUS CONTRAST CLINICAL INDICATION: abdominal pain diarrhea and bleeding TECHNIQUE: Helically acquired images were obtained of the abdomen and pelvis with intravenous contrast. This CT exam was performed using one or more of the following dose reduction techniques: automated exposure control, adjustment of the mA and/or kV according to patient size, and/or use of iterative reconstruction technique. CONTRAST: IV 100mL Isovue-370 RADIATION DOSE: CTDIvol = 11.97 mGy, DLP = 694.12 mGy-cm COMPARISON: No relevant prior studies available. FINDINGS: LOWER THORAX: Small hiatal hernia. Lung bases are clear. No cardiomegaly. No significant pericardial effusion. ABDOMEN: LIVER: Small benign cysts in the liver. No follow-up imaging is recommended per consensus recommendations based on imaging criteria. GALLBLADDER AND BILE DUCTS: Unremarkable. No calcified gallstones. No gallbladder distention or wall edema. No intra- or extrahepatic biliary ductal dilation. PANCREAS: Unremarkable. No focal cystic or solid mass. SPLEEN: Unremarkable. Normal size without focal cystic or solid mass. ADRENALS: Unremarkable. No nodules. KIDNEYS AND URETERS: Unremarkable. Normal renal size and position. No hydronephrosis. STOMACH AND BOWEL: Diffuse wall thickening/inflammation of the colon. The small bowel is unremarkable. No stomach or bowel distention. PELVIS: APPENDIX: The appendix is normal. BLADDER: Unremarkable. REPRODUCTIVE: Unremarkable as visualized. No mass. ABDOMEN and PELVIS: INTRAPERITONEAL SPACE: Tiny amount of free fluid in the pelvis. No free air. BONES/JOINTS: Unremarkable. No suspicious lytic or blastic abnormality. SOFT TISSUES: Unremarkable. No discrete abdominal or pelvic wall hernia. VASCULATURE: Unremarkable. Abdominal aorta is non-dilated. LYMPH NODES: Unremarkable. No enlarged lymph nodes. CT/Abdomen/Pelvis W IV Cont ONLY IMPRESSION: Diffuse wall thickening/inflammation of the colon. This may indicate an infectious or inflammatory colitis. Electronically Signed: Harmeet Vazquez MD at 0:34 EDT ,
--- NOTE | 2024-02-11 22:42 | EDS_ITS ---
HPI History of Present Illness Chief Complaint: GI Bleed Informant: patient and spouse/S.O. Narrative Narrative: 68-year-old female on Plavix presented to the emergency room with rectal bleeding. Patient states that all week she has had diarrhea. Just prior to a rrival she had 2 episodes of bright red blood per rectum without stool. She notes some suprapubic discomfort. She denies any rectal pain other than with wiping frequently this week. She denies fever but feels chilled. She notes nausea but no vomiting. She denies any prior abdominal surgeries. She states that she had a colonoscopy earlier this year that was normal. No history of colitis or diverticulitis. [facility] Medical History Osteoporosis Kidney stones Kidney disease GERD (gastroesophageal reflux disease) Myocardial infarct Internal impingement of right shoulder Hypothyroidism Abnormal Holter monitor finding Sinus pause Mixed hyperlipidemia Atherosclerotic heart disease of [place] coronary artery without angina pectoris Essential hypertension Traumatic avulsion of nail plate of toe Thigh pain History of IBS Wears glasses Wears dentures Depression Anxiety Skin tear Bruising Thyroid disease Ambulates with cane History of renal disease Arthritis High cholesterol Easy bruising Restless legs Difficulty swallowing Difficulty chewing History of hiatal hernia Gastric reflux Former smoker Shortness of breath on exertion Stroke/cerebrovascular accident History of echocardiogram History of stress test History of heart attack History of irregular heartbeat Acute seasonal allergic rhinitis Acute serous otitis media Acute dysfunction of both eustachian tubes Fuchs' corneal dystrophy HTN (hypertension) COPD (chronic obstructive pulmonary disease) Bronchitis Constipation Abdominal pain Chest pain CAD (coronary artery disease) Hypoxia Diaphragm paralysis History of cerebrovascular disease History of CVA (cerebrovascular accident) Anxiety disorder Home Medications ?Medication ?Instructions ?Recorded ?Last Taken ?Type levothyroxine 50 mcg tablet 50 mcg PO DAILY THYROID 08/17/21 06/07/22 History clopidogrel 75 mg tablet 75 mg PO DAILY BLOOD THINNER 30 06/08/22 07/13/22 Rx days #30 tabs atorvastatin 40 mg tablet 40 mg PO DAILY 07/01/22 Unknown History losartan 25 mg tablet 25 mg PO DAILY #90 tabs 09/29/22 Unknown Rx alendronate 70 mg tablet 70 mg PO Q7D 08/14/23 Unknown History cholecalciferol (vitamin D3) 125 125 mcg PO DAILY 08/14/23 Unknown History mcg (5,000 unit) tablet citalopram 10 mg tablet 10 mg PO DAILY 08/14/23 Unknown History meclizine 25 mg chewable tablet 25 mg PO TID PRN dizziness #30 tabs 08/14/23 Unknown Rx fluticasone fur. 200 mcg-umeclid 1 inh inhalation DAILY #60 ea 12/01/23 Unknown Rx 62.5 mcg-vilant 25 mcg inhalat.powder (Trelegy Ellipta) montelukast 10 mg tablet 10 mg PO DAILY 12/01/23 Unknown History levocetirizine 5 mg tablet 5 mg PO DAILY ALLERGIES #90 tabs 01/01/24 Unknown Rx (Allergy Relief (levocetirizine)) albuterol sulfate 90 mcg/actuation 2 puff inhalation Q6H PRN 01/02/24 Unknown Rx aerosol inhaler Shortness Of Breath #3 ea multivitamin (One Daily 1 tab PO DAILY 01/16/24 Unknown History Multivitamin tablet) Allergy/AdvReac Type Severity Reaction Status Date / Time hydrocodone bitartrate (From Allergy HALLUCINATE Verified 02/11/24 22:25 Vicodin) S piperacillin (From Zosyn) Allergy Hives Verified 02/11/24 22:25 tazobactam (From Zosyn) Allergy Hives Verified 02/11/24 22:25 vancomycin Allergy Rash Verified 02/11/24 22:25 fish derived AdvReac Anaphylaxis Verified 02/11/24 22:25 morphine AdvReac HALLUCINATE Verified 02/11/24 22:25 S Family History Mother Diabetes Heart disease Hypertension High cholesterol Father Heart disease Hypertension High cholesterol CVA (cerebral vascular accident) Surgical History History of right breast biopsy History of surgery on lower extremity History of bilateral cataract extraction History of shoulder surgery History of tubal ligation Social History household members: significant other housing: apartment pets and animals: Yes pets and animals: dog(s) Smoking Status: Former smoker quit date: 10/28/19 pack-years: 25 Tobacco: How many years used: 25 second hand exposure: Yes alcohol intake: never substance use type: does not use caffeine: Yes Type: coffee Number of servings: 1 ROS ROS ED Constitutional Constitutional ED: Reports chills; Denies fever(s) or weight loss Eyes Eyes: Denies change in vision or diplopia ENT ENT ED: Denies ear pain, rhinorrhea or sore throat Cardiovascular Cardiovascular: Denies chest pain, orthopnea, palpitations or racing heartbeat Respiratory/Chest Respiratory/Chest: Denies cough, dyspnea or orthopnea Gastrointestinal Gastrointestinal: Reports abdominal pain, diarrhea, nausea and other Details: Bright red blood per rectum ; Denies vomiting Genitourinary Genitourinary ED: Denies dysuria, hematuria or urinary frequency Musculoskeletal Musculoskeletal: Denies arthralgias or myalgias Integumentary Denies abscess or rash Neurologic Neurologic: Denies headache(s) or weakness Psychiatric Psychiatric: Denies anxiety, depression, suicidal ideation or suicidal thoughts Endocrine Endocrinology: Denies polydipsia, polyphagia or polyuria Allergic/Immunologic Allergic/Immunologic ED: Denies mouth swelling, tongue swelling or urticaria EXAM Physical Exam Const Vital Signs: 02/11/24 22:24 02/12/24 00:20 02/12/24 00:23 Temperature 98 F Temperature Source Temporal Pulse Rate 87 83 Respiratory Rate 16 18 Blood Pressure 172/92 H 157/75 H Blood Pressure Mean 118 102 Pulse Ox 94 85 95 Oxygen Delivery Method Room Air Room Air Nasal Cannula Oxygen Flow Rate (L/min) 2 Positive well nourished and well developed General Appearance ED: well developed HEENT Reports normocephalic, head/scalp atraumatic and moist mucous membranes Eyes PERRL and EOMs intact bilaterally Neck no lymphadenopathy, supple and no JVD Resp normal respiratory effort and clear to auscultation bilaterally Cardio regular rate, regular rhythm and no murmurs GI no masses Inspection: Negative for abdominal distention Auscultation: normoactive bowel sounds Palpation: soft and tender RLQ and suprapubic Back/Spine no CVA tenderness and normal ROM Extremity normal to inspection General Extremety ED: Negative for edema General Extremity: Negative for edema Neuro oriented x3 and CN's II-XII intact bilaterally Sensorium / Orientation: alert Motor Exam: strength 5/5 throughout Psych mental status grossly normal Mood & Affect: anxious; Negative for depressed or tearful Skin no rashes or lesions noted and no wounds MDM MDM MDM Narrative Medical decision making narrative: Differential diagnosis includes acute colitis diverticulitis internal/external hemorrhoids anal fissure diverticular bleed AV malformation UTI anemia The patient went to the bathroom and had a yellow diarrheal bowel movement without blood. White count returns at 6.4 hemoglobin 14.5 platelet count of 203. BUN is 11 creatinine 1.07 normal LFTs lipase is 12 urinalysis 3+ bacteria 0 white cells negative nitrates. CT abdomen pelvis demonstrates changes consistent with acute colitis. Patient does not appear to be anemic to require transfusion. Patient received Zofran IV fluids pain and nausea medication. She will be started on Cipro and Flagyl. She will follow-up with her doctors. History & Record Review Discussion w/independent historian: Patient and Significant other Lab Data Attestation: I reviewed the patient's lab results. Labs: Laboratory Results - last 24 hr 02/11/24 02/11/24 22:41 22:58 WBC 6.4 RBC 4.88 Hgb 14.5 Hct 45.7 MCV 93.6 MCH 29.7 MCHC 31.7 L RDW Std Deviation 46.6 H RDW Coeff of Keo 13.5 Plt Count 203 MPV 8.7 Immature Gran % (Auto) 0.300 Neut % (Auto) 78.5 H Lymph % (Auto) 12.5 L Wheeler % (Auto) 6.2 Eos % (Auto) 1.9 Baso % (Auto) 0.6 Absolute Neuts (auto) 5.0 Absolute Lymphs (auto) 0.80 L Nucleated RBC % 0 Sodium 139 Potassium 3.2 L Chloride 108 H Carbon Dioxide 24.0 Anion Gap 7 BUN 11 Creatinine 1.07 H Estim Creat Clear Calc 54.53 Est GFR (MDRD) Af Amer 66 Est GFR (MDRD) Non-Af 54 L BUN/Creatinine Ratio 10.3 Glucose 109 H Calcium 8.8 Total Bilirubin 0.60 Direct Bilirubin 0.18 AST 27 ALT 38 Alkaline Phosphatase 85 Total Protein 7.6 Albumin 3.5 Globulin 4.1 Lipase 12 L Urine Color Yellow Urine Clarity Sl. Cloudy Urine pH 5.0 Ur Specific [place] 1.025 Urine Protein 30 H Urine Glucose (UA) Normal Urine Ketones 50 H Urine Occult Blood 25 H Urine Nitrite Negative Urine Bilirubin 1 H Urine Urobilinogen Normal Ur Leukocyte Esterase 100 H Urine RBC 0-5 SEEN Urine WBC 0 SEEN Ur Squamous Epith Cells 0-5 SEEN Urine Bacteria 3+ Urine Mucus 0 SEEN Radiography Diagnostic Testing: Clinical Impression(s) from Imaging Studies Abdomen/Pelvis CT 02/11/24 22:42 IMPRESSION: Diffuse wall thickening/inflammation of the colon. This may indicate an infectious or inflammatory colitis. Electronically Signed: Harmeet Vazquez MD at 0:34 EDT Reading Location ID and State: [facility] / [place] Tel , Service support , Discharge Plan Triage Chief Complaint: GI Bleed ED Provider: Merlin Bae Dx/Rx/DC Orders Prescriptions: No Action levothyroxine 50 mcg tablet 50 mcg PO DAILY atorvastatin 40 mg tablet 40 mg PO DAILY losartan 25 mg tablet 25 mg PO DAILY Qty: 90 3RF montelukast 10 mg tablet 10 mg PO DAILY Trelegy Ellipta 200-62.5-25 mcg blister with device 1 inh inhalation DAILY Qty: 60 6RF clopidogrel 75 MG tablet 75 mg PO DAILY 30 Days Qty: 30 0RF alendronate 70 mg tablet 70 mg PO Q7D Patient Comments: PLEASE SEE ATTACHED FOR DETAILED DIRECTIONS citalopram 10 mg tablet 10 mg PO DAILY cholecalciferol (vitamin D3) 125 mcg (5,000 unit) tablet 125 mcg PO DAILY meclizine 25 mg tablet,chewable 25 mg PO TID PRN (Reason: dizziness) Qty: 30 0RF multivitamin [One Daily Multivitamin] Tablet 1 tab PO DAILY levocetirizine [Allergy Relief (levocetirizin)] 5 mg tablet 5 mg PO DAILY Qty: 90 3RF albuterol sulfate 90 mcg/actuation HFA aerosol inhaler 2 puff inhalation Q6H PRN (Reason: Shortness Of Breath) Qty: 3 3RF Primary Care Provider: Bird Ronquillo Referrals: Bird Ronquillo MD [Primary Care Provider] - Print Language: Canadian
[2024-02-11] MEDS: Ondansetron 4 MG/2 ML Vial IV (22:56)
[2024-02-11] MEDS: 0.9% Normal Saline (1000mL) 1,000 ML 1000 ML IV (22:56)
[2024-02-11 23:04] LABS: Basophil# 0.04 X10^3/uL; Basophil% 0.6 % (0-1); Eosinophil# 0.12 X10^3/uL; Eosinophils% 1.9 % (0-5); Hematocrit 45.7 % (37-47); Hemoglobin 14.5 g/dL (12.0-15.0); Lymphocyte % 12.5 % (19-41); Mean Corp Hgb Conc 31.7 g/dL (32-36); Mean Corpuscular Hgb 29.7 pg (27.0-32.0); Mean Corpuscular Volume 93.6 fL (81-99); Mean Platelet Vol. 8.7 fl (6.2-12.0); Monocyte% 6.2 % (0-10); NRBC Flagged by Analyzer 0 % (0-5); Neutrophil # 5.04 X10^3/uL (2.7-7.7); Neutrophil % 78.5 % (47-70); Platelet Count 203 K/mm3 (150-450); RBC Distribution Width CV 13.5 % (11.6-14.6); RBC Distribution Width SD 46.6 fl (35.1-43.9); Red Blood Count 4.88 M/mm3 (4.2-5.4); White Blood Count 6.4 K/mm3 (4.4-11.0)
[2024-02-11 23:07] LABS: POSITIVE COUNT NO; POSITIVE DIFFERENTIAL NO; POSITIVE MORPHOLOGY NO
[2024-02-11 23:07] LABS: Color, Urine Yellow (Yellow); Glucose, Dipstick Normal (Normal); Ketone-Dipstick 50 mg/dl (Negative); Leukocyte Esterase-Dipstick 100 /ul (Negative); Mucous, Urine 0 SEEN /hpf (<or=2+); Nitrite-Dipstick Negative (Negative); Occult Blood-Urine 25 /ul (Negative); Protein-Dipstick 30 mg/dl (Negative); Specific Gravity, Urine 1.025 (1.002-1.030); Urine Clarity Sl. Cloudy (Clear); Urine Urobilinogen Normal (Normal); White Blood Cells 0 SEEN /hpf (0-5)
[2024-02-11 23:15] LABS: Bacteria 3+ /hpf (None Seen); Red Blood Cells-Urine 0-5 SEEN /hpf (0-5); Squamous Epithelial Cells - UA 0-5 SEEN /hpf (5-10); Urine Bilirubin Dipstick 1 mg/dL (Negative)
[2024-02-11 23:42] LABS: AST(SGOT) 27 U/L (15-37); Alanine Aminotransfer ALT/SGPT 38 U/L (13-56); Albumin, Serum 3.5 g/dL (3.2-5.0); Alkaline Phosphatase 85 U/L (45-117); Anion Gap 7 (5-15); BUN 11 mg/dL (7-18); BUN/Creat Ratio 10.3 RATIO (10-20); Bilirubin, Direct 0.18 mg/dL (0.00-0.30); Calcium,Total 8.8 mg/dL (8.5-10.1); Chloride 108 mmol/L (98-107); Creatinine, Serum 1.07 mg/dL (0.55-1.02); EST Glomerular Filtration Rate 54 mL/min (>60); Est Glom Filt Rate - Afr Amer 66 mL/min (>60); Estimated Creatinine Clearance 54.53 ml/min; Globulin 4.1 g/dL (2.2-4.2); Glucose 109 mg/dL (74-106); Lipase 12 U/L (13-75); Potassium 3.2 mmol/L (3.5-5.1); Protein, Total 7.6 g/dL (6.4-8.2); Sodium Level 139 mmol/L (136-145)
[2024-02-12 00:20] VITALS: O2SAT 85
[2024-02-12 00:23] VITALS: BP 157/75; PULSE 83; RESP 18; O2SAT 95
[2024-02-12] MEDS: metroNIDAZOLE 500 MG Tablet PO (01:14)
[2024-02-12] MEDS: oxyCODONE 5 MG Tablet 10 MG PO (01:14)
[2024-02-12] MEDS: Ciprofloxacin 500 MG Tablet PO (01:14)
[2024-02-12 01:20] VITALS: BP 163/84; PULSE 80; RESP 18; TEMP 36.1; O2SAT 98
== END 2024-02-12 01:21 | disposition home or self-care (01) ==
PROVIDERS: Emergency Provider Emergency Medicine; PCP Family Medicine; Visit Provider Emergency Medicine
DX: R19.7 Diarrhea, unspecified (principal); J44.9 Chronic obstructive pulmonary disease, unspecified; R11.0 Nausea; I10 Essential (primary) hypertension; I25.2 Old myocardial infarction; I25.10 Atherosclerotic heart disease of native coronary artery without angina pectoris; E78.2 Mixed hyperlipidemia; E03.9 Hypothyroidism, unspecified; F32.A Depression, unspecified; F41.9 Anxiety disorder, unspecified; J30.2 Other seasonal allergic rhinitis; Z88.5 Allergy status to narcotic agent; Z88.1 Allergy status to other antibiotic agents; Z79.02 Long term (current) use of antithrombotics/antiplatelets; Z87.19 Personal history of other diseases of the digestive system; Z86.73 Personal history of transient ischemic attack (TIA), and cerebral infarction without residual deficits; Z87.891 Personal history of nicotine dependence; Z79.899 Other long term (current) drug therapy
CPT/HCPCS: 74177; 80048; 80076; 81001; 83690; 85025; 96361; 96374; 96376; 99283; J7030; Q9967; A4216; J2405

== ENCOUNTER 2024-07-19 19:07 | Emergency (ER) | payer MEDICARE, SELFPAY ==
[2024-07-19 19:07] VITALS: BP 141/84; PULSE 79; RESP 16; TEMP 36.6; O2SAT 96
--- NOTE | 2024-07-19 19:11 | EKG12_ITS ---
Test Reason : DYSRHYTHMIA Blood Pressure : */* mmHG Vent. Rate : 67 BPM Atrial Rate : 67 BPM P-R Int : 158 ms QRS Dur : 62 ms QT Int : 398 ms P-R-T Axes : 66 34 39 degrees QTcB Int : 420 ms Normal sinus rhythm Cannot rule out Septal infarct (cited on or before 16-Jan-2024) Abnormal ECG Reconfirmed by Peter Garcia [id number]), clinical editor ISAAK BHARDWAJ ([id number]) on 07/22/2024 9:58:03 AM Referred By: Confirmed By: Peter Garcia
--- NOTE | 2024-07-19 19:17 | RAD_ITS ---
PROCEDURE: CHEST 1 VIEW (PORTABLE) REASON FOR EXAM: 69-year-old female, pain, shortness of breath. History of COPD and diagnosed with influenza 1 week ago. TECHNIQUE: Frontal view of the chest. COMPARISON: Chest radiograph 12/2023. FINDINGS: The heart size is normal. Stable findings of emphysema. The lungs are clear. No focal consolidation, pleural effusion or pneumothorax. Degenerative changes are identified within the thoracic spine. RAD/Chest 1 View (Portable) IMPRESSION: COPD. NO ACUTE FINDINGS. Reading Location: [id number]
[2024-07-19 21:23] VITALS: BP 142/67; PULSE 67; RESP 16; TEMP 36.6; O2SAT 92
[2024-07-19 21:24] VITALS: BP 142/67; PULSE 67; RESP 16; TEMP 36.6; O2SAT 92
--- NOTE | 2024-07-19 21:57 | US_ITS ---
PROCEDURE: GALLBLADDER REASON FOR EXAM: 69-year-old female, right sided rib pain. COMPARISON: CT abdomen pelvis 02/11/2024. FINDINGS: Visualization is limited by patient condition. Liver: Grossly normal size and echotexture. No suspicious hepatic mass. Gallbladder: No stones, sludge, wall thickening or tenderness. Common bile duct: Normal measuring 3 mm. Pancreas: Visualized portions are sonographically unremarkable. Visualized portions of the right kidney are unremarkable. No right upper quadrant ascites. US/Gallbladder IMPRESSION: NORMAL RIGHT UPPER QUADRANT ULTRASOUND. Reading Location: [facility]
[2024-07-19] MEDS: Ondansetron 4 MG/2 ML Vial IV (22:32)
[2024-07-19 22:42] LABS: Absolute Lymphocyte Count 0.99 X10^3/uL (0.83-4.51); Absolute Neutrophil Count 5.3 X10^3/uL (2.0-7.7); Basophil# 0.02 X10^3/uL; Basophil% 0.3 % (0-1); Eosinophil# 0.12 X10^3/uL; Eosinophils% 1.8 % (0-5); Hematocrit 42.1 % (37-47); Lymphocyte # 0.99 X10^3/ul (0.83-4.51); Lymphocyte % 14.7 % (19-41); Mean Corp Hgb Conc 33.3 g/dL (32-36); Mean Corpuscular Hgb 30.8 pg (27.0-32.0); Mean Corpuscular Volume 92.7 fL (81-99); Mean Platelet Vol. 9.2 fl (6.2-12.0); Monocyte# 0.28 X10^3/uL; Monocyte% 4.2 % (0-10); NRBC Flagged by Analyzer 0 % (0-5); Neutrophil # 5.28 X10^3/uL (2.7-7.7); Neutrophil % 78.6 % (47-70); Platelet Count 188 K/mm3 (150-450); Red Blood Count 4.54 M/mm3 (4.2-5.4); White Blood Count 6.7 K/mm3 (4.4-11.0)
[2024-07-19 22:59] LABS: ALB/GLOB Ratio 0.8 RATIO (0.9-2.4); AST(SGOT) 25 U/L (15-37); Alanine Aminotransfer ALT/SGPT 37 U/L (13-56); Albumin, Serum 3.5 g/dL (3.2-5.0); Alkaline Phosphatase 81 U/L (45-117); Anion Gap 7 (5-15); BUN 13 mg/dL (7-18); BUN/Creat Ratio 13.1 RATIO (10-20); Calcium,Total 9.4 mg/dL (8.5-10.1); Chloride 104 mmol/L (98-107); Creatinine, Serum 0.99 mg/dL (0.55-1.02); EST Glomerular Filtration Rate 60 mL/min (>60); Est Glom Filt Rate - Afr Amer 72 mL/min (>60); Globulin 4.2 g/dL (2.2-4.2); Glucose 100 mg/dL (74-106); Lipase 15 U/L (73-393); Potassium 3.6 mmol/L (3.5-5.1); Protein, Total 7.7 g/dL (6.4-8.2); Sodium Level 139 mmol/L (136-145)
--- NOTE | 2024-07-19 23:12 | EDS_ITS ---
HPI History of Present Illness Chief Complaint: Chest Other Narrative Narrative: Chief complaint and HPI: Right upper quadrant abdominal pain. 69-year-old female with past medical history of COPD on baseline 2 L nasal cannula, HLD, hypothyroidism, HTN presents for evaluation of right upper quadrant abdominal pain. Patient states that she was diagnosed with influenza recently. She states her symptoms have since resolved such as fever, cough, URI symptoms. Patient states that this evening around 6 PM she developed right upper quadrant abdominal pain while standing. She denies any frequent coughing. Denies any trauma or injury. She denies any history of cholelithiasis. States she has a family history of gallbladder disease. Denies any fever, chills, shortness of breath, chest pain, nausea, vomiting, dysuria, diarrhea, constipation. Has not taken anything for the pain. Per triage note, it states that the patient is having right rib pain however she states it is her right upper abdomen and that is where she points as well. Review of systems: See HPI Medications: As listed on the chart Allergies: As listed on the chart PFSH: Per chart Vital signs: As listed on the chart. Reviewed. Physical exam: Gen: A&O x3, NAD Head: Normocephalic, atraumatic Eyes: No sclera icterus, conjunctiva clear ENT: Moist mucous membranes Neck: Trachea midline, No JVD CV: RRR, no murmurs, no peripheral edema, chest wall nontender to palpation Resp: Lungs CTA BL, no w/r/c, On baseline 2 L nasal cannula GI: Abd soft, non-distended, mildly tender to palpation in the right upper quadrant, no r/r/g, negative Gutierrez sign Musc: Full ROM, no deformity Skin: Warm, dry Neuro: Alert, oriented, grossly intact, sensation intact Psych: Cooperative, appropriate mood and affect [facility] Medical History Osteoporosis Kidney stones Kidney disease GERD (gastroesophageal reflux disease) Myocardial infarct Internal impingement of right shoulder Hypothyroidism Abnormal Holter monitor finding Sinus pause Mixed hyperlipidemia Atherosclerotic heart disease of [place] coronary artery without angina pectoris Essential hypertension Traumatic avulsion of nail plate of toe Thigh pain History of IBS Wears glasses Wears dentures Depression Anxiety Skin tear Bruising Thyroid disease Ambulates with cane History of renal disease Arthritis High cholesterol Easy bruising Restless legs Difficulty swallowing Difficulty chewing History of hiatal hernia Gastric reflux Former smoker Shortness of breath on exertion Stroke/cerebrovascular accident History of echocardiogram History of stress test History of heart attack History of irregular heartbeat Acute seasonal allergic rhinitis Acute serous otitis media Acute dysfunction of both eustachian tubes Fuchs' corneal dystrophy HTN (hypertension) COPD (chronic obstructive pulmonary disease) Bronchitis Constipation Abdominal pain Chest pain CAD (coronary artery disease) Hypoxia Diaphragm paralysis History of cerebrovascular disease History of CVA (cerebrovascular accident) Anxiety disorder Home Medications ?Medication ?Instructions ?Recorded ?Last Taken ?Type levothyroxine 50 mcg tablet 50 mcg PO DAILY THYROID 06/07/22 History clopidogrel 75 mg tablet 75 mg PO DAILY BLOOD THINNER 30 06/08/22 07/13/22 Rx days #30 tabs atorvastatin 40 mg tablet 40 mg PO DAILY 07/01/22 Unkn own History losartan 25 mg tablet 25 mg PO DAILY #90 tabs 09/18 Unknown Rx alendronate 70 mg tablet 70 mg PO Q7D 08/14/23 Unknow n History cholecalciferol (vitamin D3) 125 125 mcg PO DAILY 07/27 01/19 Unknown History mcg (5,000 unit) tablet citalopram 10 mg tablet 10 mg PO DAILY 08/14/23 Unkn own History meclizine 25 mg chewable tablet 25 mg PO TID PRN dizzi ness #30 tabs 08/14/23 Unknown Rx montelukast 10 mg tablet 10 mg PO DAILY 12/01/23 Unkn own History levocetirizine 5 mg tablet 5 mg PO DAILY ALLERGIES #90 tabs 01/01/24 Unknown Rx (Allergy Relief (levocetirizine)) albuterol sulfate 90 mcg/actuation 2 puff inhalation Q 6H PRN 01/02/24 Unknown Rx aerosol inhaler Shortness Of Breath #3 ea multivitamin (One Daily 1 tab PO DAILY 01/16/24 Unkn own History Multivitamin tablet) ciprofloxacin HCl 500 mg tablet 500 mg PO BID #20 TABL ETS 02/12/24 Unknown Rx metronidazole 500 mg tablet 500 mg PO Q8H #30 tabs Unknown Rx oxycodone-acetaminophen 5 mg-325 1 tab PO Q6H PRN PRN Pain 3 days 02/12/24 Unknown Rx mg tablet #12 TABLETS fluticasone fur. 200 mcg-umeclid 1 inh inhalation TONY Y #60 ea 06/25/24 Unknown Rx 62.5 mcg-vilant 25 mcg inhalat.powder (Trelegy Ellipta) Allergy/AdvReac Type Severity Reaction Status Date / Time hydrocodone bitartrate (From Allergy HALLUCINATE Verified 07/19/24 19:10 Vicodin) S piperacillin (From Zosyn) Allergy Hives Verified 07/19/24 19:10 tazobactam (From Zosyn) Allergy Hives Verified 07/19/24 19:10 vancomycin Allergy Rash Verified 07/19/24 19:10 fish derived AdvReac Anaphylaxis Verified 07/19/24 19:10 morphine AdvReac HALLUCINATE Verified 07/19/24 19:10 S Family History Mother Diabetes Heart disease Hypertension High cholesterol Father Heart disease Hypertension High cholesterol CVA (cerebral vascular accident) Surgical History History of right breast biopsy History of surgery on lower extremity History of bilateral cataract extraction History of shoulder surgery History of tubal ligation Social History household members: significant other housing: apartment pets and animals: Yes pets and animals: dog(s) Smoking Status: Former smoker quit date: 10/28/19 pack-years: 25 Tobacco: How many years used: 25 second hand exposure: Yes alcohol intake: never substance use type: does not use caffeine: Yes Type: coffee Number of servings: 1 EXAM Physical Exam Const Vital Signs: 07/19/24 19:07 07/19/24 21:23 07/19/24 21:24 Temperature 97.8 F 97.8 F 97.8 F Temperature Source Temporal Oral Oral Pulse Rate 79 67 67 Respiratory Rate 16 16 16 Blood Pressure 141/84 H 142/67 H 142/67 H Blood Pressure Mean 103 92 92 Pulse Ox 96 92 92 Oxygen Delivery Method Nasal Cannula Nasal Cannula Nasal Cannula Oxygen Flow Rate (L/min) 2 2 2 07/19/24 23:53 Temperature Temperature Source Pulse Rate 61 Respiratory Rate 19 H Blood Pressure 147/59 H Blood Pressure Mean 88 Pulse Ox 92 Oxygen Delivery Method Oxygen Flow Rate (L/min) MDM MDM MDM Narrative Medical decision making narrative: 69-year-old female with past medical history of COPD on baseline 2 L nasal cannula, HLD, hypothyroidism, HTN presents for evaluation of right upper quadrant abdominal pain. Differential diagnosis includes but is not limited to cholelithiasis, cholecystitis, GERD, myofascial spasm. Patient had x-ray and EKG ordered per protocol in triage. EKG was interpreted by md, ED physician. EKG shows normal sinus rhythm with a heart rate of 67. No acute ischemic changes. X-ray of the chest was completed by the time I saw the patient. This was reviewed and interpreted by md, ED physician. No pneumonia, effusion, cardiomegaly, pneumothorax. Given patient's right upper quadrant abdominal pain, abdominal pain workup ordered including ultrasound of the gallbladder. Patient ordered morphine and Zofran for symptoms. She declined the morphine. Was offered Tylenol and declined. CBC without leukocytosis or anemia. CMP unremarkable without electrolyte abnormality, ELENA, transaminitis. Lipase unremarkable. Ultrasound of the gallbladder without any acute pathology. At this point in time, no clear etiology for patient's right upper quadrant abdominal pain. Motrin and Tylenol as needed for pain. Strict return precautions. Follow-up with PCP. She confirmed understand the plan. Impression: 1. Right upper quadrant abdominal pain Lab Data Labs: Laboratory Results - last 24 hr 07/19/24 22:34 WBC 6.7 RBC 4.54 Hgb 14.0 Hct 42.1 MCV 92.7 MCH 30.8 MCHC 33.3 RDW Std Deviation 44.0 H RDW Coeff of Keo 13.0 Plt Count 188 MPV 9.2 Immature Gran % (Auto) 0.400 Neut % (Auto) 78.6 H Lymph % (Auto) 14.7 L [place] % (Auto) 4.2 Eos % (Auto) 1.8 Baso % (Auto) 0.3 Absolute Neuts (auto) 5.3 Absolute Lymphs (auto) 0.99 Nucleated RBC % 0 Sodium 139 Potassium 3.6 Chloride 104 Carbon Dioxide 28.0 Anion Gap 7 BUN 13 Creatinine 0.99 Est GFR (MDRD) Af Amer 72 Est GFR (MDRD) Non-Af 60 BUN/Creatinine Ratio 13.1 Glucose 100 Calcium 9.4 Total Bilirubin 0.60 AST 25 ALT 37 Alkaline Phosphatase 81 Total Protein 7.7 Albumin 3.5 Globulin 4.2 Albumin/Globulin Ratio 0.8 L Lipase 15 L Radiography Diagnostic Testing: Clinical Impression(s) from Imaging Studies Chest X-Ray 07/19/24 19:17 IMPRESSION: COPD. NO ACUTE FINDINGS. Reading Location: [facility] Gallbladder Ultrasound 07/19/24 21:57 IMPRESSION: NORMAL RIGHT UPPER QUADRANT ULTRASOUND. Reading Location: [facility] Discharge Plan Triage Chief Complaint: Chest Other ED Provider: Colin Caba Dx/Rx/DC Orders Clinical Impression: Abdominal pain Instructions: ED Abdominal Pain Unkn Cause Fem Prescriptions: No Action levothyroxine 50 mcg tablet 50 mcg PO DAILY atorvastatin 40 mg tablet 40 mg PO DAILY losartan 25 mg tablet 25 mg PO DAILY Qty: 90 3RF montelukast 10 mg tablet 10 mg PO DAILY clopidogrel 75 MG tablet 75 mg PO DAILY 30 Days Qty: 30 0RF alendronate 70 mg tablet 70 mg PO Q7D Patient Comments: PLEASE SEE ATTACHED FOR DETAILED DIRECTIONS citalopram 10 mg tablet 10 mg PO DAILY cholecalciferol (vitamin D3) 125 mcg (5,000 unit) tablet 125 mcg PO DAILY meclizine 25 mg tablet,chewable 25 mg PO TID PRN (Reason: dizziness) Qty: 30 0RF multivitamin [One Daily Multivitamin] Tablet 1 tab PO DAILY metronidazole 500 mg tablet 500 mg PO Q8H Qty: 30 0RF ciprofloxacin HCl 500 mg tablet 500 mg PO BID Qty: 20 0RF oxycodone-acetaminophen 5-325 mg tablet 1 tab PO Q6H PRN PRN (Reason: Pain) 3 Days Qty: 12 0RF levocetirizine [Allergy Relief (levocetirizin)] 5 mg tablet 5 mg PO DAILY Qty: 90 3RF albuterol sulfate 90 mcg/actuation HFA aerosol inhaler 2 puff inhalation Q6H PRN (Reason: Shortness Of Breath) Qty: 3 3RF Trelegy Ellipta 200-62.5-25 mcg blister with device 1 inh inhalation DAILY Qty: 60 6RF Primary Care Provider: Bird Ronquillo Referrals: Bird Ronquillo MD [Primary Care Provider] - 3-5 Days Activity Restrictions/Additional Instructions: Return back to the ED if symptoms change or worsen. Follow-up with your primary care physician. Print Language: Malaysian Disposition Disposition: Home, Self Care Discharge Date/Time: 07/19/24 23:56
[2024-07-19 23:53] VITALS: BP 147/59; PULSE 61; RESP 19; O2SAT 92
== END 2024-07-19 23:56 | disposition home or self-care (01) ==
PROVIDERS: Emergency Provider Surgery; PCP Family Medicine; Visit Provider Surgery
DX: R10.11 Right upper quadrant pain (principal); J44.9 Chronic obstructive pulmonary disease, unspecified; I10 Essential (primary) hypertension; E03.9 Hypothyroidism, unspecified; E78.00 Pure hypercholesterolemia, unspecified; I25.2 Old myocardial infarction; I25.10 Atherosclerotic heart disease of native coronary artery without angina pectoris; F32.A Depression, unspecified; F41.9 Anxiety disorder, unspecified; M81.0 Age-related osteoporosis without current pathological fracture; Z86.73 Personal history of transient ischemic attack (TIA), and cerebral infarction without residual deficits; Z79.02 Long term (current) use of antithrombotics/antiplatelets; Z79.890 Hormone replacement therapy; Z79.899 Other long term (current) drug therapy; Z87.891 Personal history of nicotine dependence
CPT/HCPCS: 71045; 76705; 80053; 83690; 85025; 93005; 94760; 96374; 99283; J2405

== ENCOUNTER 2024-07-31 14:57 | Emergency (ER) | payer MEDICARE, MEDICAID, SELFPAY ==
[2024-07-31 14:57] VITALS: BP 153/79; PULSE 76; RESP 15; TEMP 36.7; O2SAT 93; BMI 27.1
--- NOTE | 2024-07-31 15:41 | EX.ED.DYSGE1 ---
HPI History of Present Illness Chief Complaint: Abd Pain [facility] Medical History Osteoporosis Kidney stones Kidney disease GERD (gastroesophageal reflux disease) Myocardial infarct Internal impingement of right shoulder Hypothyroidism Abnormal Holter monitor finding Sinus pause Mixed hyperlipidemia Atherosclerotic heart disease of [place] coronary artery without angina pectoris Essential hypertension Traumatic avulsion of nail plate of toe Thigh pain History of IBS Wears glasses Wears dentures Depression Anxiety Skin tear Bruising Thyroid disease Ambulates with cane History of renal disease Arthritis High cholesterol Easy bruising Restless legs Difficulty swallowing Difficulty chewing History of hiatal hernia Gastric reflux Former smoker Shortness of breath on exertion Stroke/cerebrovascular accident History of echocardiogram History of stress test History of heart attack History of irregular heartbeat Acute seasonal allergic rhinitis Acute serous otitis media Acute dysfunction of both eustachian tubes Fuchs' corneal dystrophy HTN (hypertension) COPD (chronic obstructive pulmonary disease) Bronchitis Constipation Abdominal pain Chest pain CAD (coronary artery disease) Hypoxia Diaphragm paralysis History of cerebrovascular disease History of CVA (cerebrovascular accident) Anxiety disorder Home Medications ?Medication ?Instructions ?Recorded ?Last Taken ?Type levothyroxine 50 mcg tablet 50 mcg PO DAILY THYROID 08/17/21 06/07/22 History clopidogrel 75 mg tablet 75 mg PO DAILY BLOOD THINNER 30 06/08/22 07/13/22 Rx days #30 tabs atorvastatin 40 mg tablet 40 mg PO DAILY 07/01/22 Unknown History losartan 25 mg tablet 25 mg PO DAILY #90 tabs 09/29/22 Unknown Rx alendronate 70 mg tablet 70 mg PO Q7D 08/14/23 Unknown History cholecalciferol (vitamin D3) 125 125 mcg PO DAILY 08/14/23 Unknown History mcg (5,000 unit) tablet citalopram 10 mg tablet 10 mg PO DAILY 08/14/23 Unknown History meclizine 25 mg chewable tablet 25 mg PO TID PRN dizziness #30 tabs 08/14/23 Unknown Rx montelukast 10 mg tablet 10 mg PO DAILY 12/01/23 Unknown History levocetirizine 5 mg tablet 5 mg PO DAILY ALLERGIES #90 tabs 01/01/24 Unknown Rx (Allergy Relief (levocetirizine)) albuterol sulfate 90 mcg/actuation 2 puff inhalation Q6H PRN 01/02/24 Unknown Rx aerosol inhaler Shortness Of Breath #3 ea multivitamin (One Daily 1 tab PO DAILY 01/16/24 Unknown History Multivitamin tablet) ciprofloxacin HCl 500 mg tablet 500 mg PO BID #20 TABLETS 02/12/24 Unknown Rx metronidazole 500 mg tablet 500 mg PO Q8H #30 tabs 02/12/24 Unknown Rx oxycodone-acetaminophen 5 mg-325 1 tab PO Q6H PRN PRN Pain 3 days 02/12/24 Unknown Rx mg tablet #12 TABLETS fluticasone fur. 200 mcg-umeclid 1 inh inhalation DAILY #60 ea 06/25/24 Unknown Rx 62.5 mcg-vilant 25 mcg inhalat.powder (Trelegy Ellipta) ondansetron 4 mg disintegrating 4 mg PO Q8H PRN PRN Nausea #10 tabs 07/31/24 Unknown Rx tablet Allergy/AdvReac Type Severity Reaction Status Date / Time hydrocodone bitartrate (From Allergy HALLUCINATE Verified 07/31/24 14:59 Vicodin) S piperacillin (From Zosyn) Allergy Hives Verified 07/31/24 14:59 tazobactam (From Zosyn) Allergy Hives Verified 07/31/24 14:59 vancomycin Allergy Rash Verified 07/31/24 14:59 fish derived AdvReac Anaphylaxis Verified 07/31/24 14:59 morphine AdvReac HALLUCINATE Verified 07/31/24 14:59 S Family History Mother Diabetes Heart disease Hypertension High cholesterol Father Heart disease Hypertension High cholesterol CVA (cerebral vascular accident) Surgical History History of right breast biopsy History of surgery on lower extremity History of bilateral cataract extraction History of shoulder surgery History of tubal ligation Social History household members: significant other housing: apartment pets and animals: Yes pets and animals: dog(s) Smoking Status: Former smoker quit date: 10/28/19 pack-years: 25 Tobacco: How many years used: 25 second hand exposure: Yes alcohol intake: never substance use type: does not use caffeine: Yes Type: coffee Number of servings: 1 EXAM Physical Exam Const Vital Signs: 07/31/24 14:57 07/31/24 17:12 07/31/24 19:32 Temperature 98.1 F 97.9 F Temperature Source Temporal Pulse Rate 76 65 71 Respiratory Rate 15 15 16 Blood Pressure 153/79 H 136/78 H 128/66 H Blood Pressure Mean 103 97 86 Pulse Ox 93 97 99 Oxygen Delivery Method Room Air [facility] Narrative Medical decision making narrative: HISTORY OF PRESENT ILLNESS: 69-year-old female with past medical history of COPD on baseline 2 L nasal cannula, HLD, hypothyroidism, HTN presents with right side abdominal pain and nausea. No she was seen for the same thing a few weeks ago but was told it could be her gallbladder. Notes today she ate fried potatoes and Pashto sausage and pain got worse. Thinks could be her gallbladder. No she says her appendix as well. Denies vomiting. Denies chest pain or shortness of breath. No change in bowel or bladder habits. REVIEW OF SYSTEMS: Pertinent positives: Abdominal pain, nausea Pertinent negatives:Fever PHYSICAL EXAM: Nursing triage notes reviewed, Vital signs reviewed Constitutional: please see mdm HENT: MMM Eyes: Pupils equal round and reactive to light, Extraocular muscles intact Neck: No stridor, no JVD, full neck ROM Lungs: Clear to auscultation, No wheezing or rales. No increased work of breathing, no conversational dyspnea, no accessory muscle use, no nasal flaring. No respiratory distress noted Heart: Regular rate and rhythm, No murmurs, No rubs and No gallops, 2+ distal pulses (radial, femoral, posterior tibial) in all extremities Abdomen: Soft, required TTP, positive Gutierrez sign, no rigidity, rebound or guarding, no obvious peritoneal signs, no palpable pulsatile abdominal masses, no auscultated abdominal bruit : No CVAT Extremities: No edema Neuro: No new focal neurological deficits, cranial nerves II through XII intact, 5/5 strength in all present extremities. Intact sensation to light touch in all present extremities, 2+ reflexes bilateral patella tendons. Skin: No rash or lesions noted MEDICAL DECISION MAKING: Chief Complaint: Right-sided abdominal pain External records reviewed: Reviewed imaging: Reviewed ultrasound from July 19, 2024. She had a normal right quad ultrasound that time. Reviewed CT scan abdomen pelvis from January 2024 which showed colitis Factors affecting care: Hypertension, hyperlipidemia, COPD, Social determinants of health: Tobacco abuse History obtained from others: Consults: none [facility] Narrative: Patient was initially hemodynamically stable, afebrile and nontoxic-appearing. Exam With right upper quadrant TTP, positive Gutierrez sign. I considered the following differential diagnosis: AAA, small bowel obstruction, abdominal perforation, appendicitis, pancreatitis, hepatobiliary pathology (acute cholecystitis), mesenteric ischemia, pathology (ie nephrolithiasis, pyelonephritis). Obtain a broad lab and imaging workup to further elucidate etiology of the patient's complaints. Given the uncertainty of the patient's case. Given she recently had a negative ultrasound with no gallstones I was concerned that she may require additional advanced imaging the form of CT scan. While I ordered a CT scan her history and physical exam is most consistent with gallbladder pathology. She is eating a meal of fried food, had pain that was worse. Has a positive Gutierrez sign. So I also added on a repeat ultrasound to double check we are not missing acute cholecystitis I initially treated the patient with 1 L IV fluid, 4 mg of IV Zofran and 15 mg of IV Toradol ALL IMAGES (IF OBTAINED) HAVE BEEN PERSONALLY REVIEWED AND INTERPRETED BY MYSELF. CT scan abdomen pelvis showed no evidence of obvious intra-abdominal pathology Ultrasound of the gallbladder shows no evidence of acute gallbladder surgical pathology CBC without leukocytosis, severe anemia, no thrombocytopenia. CMP without evidence of acute kidney injury, significant electrolyte abnormality, anion gap to suggest end organ hypo-perfusion, no evidence of metabolic acidosis with a normal bicarbonate, no evidence of hepatobiliary obstructive pathology. Lipase is wnl indicating no pancreatic inflammation. Urinalysis shows no evidence of urinary inflammation suggestive of UTI The synthesis of the patient's history, physical exam, labs images suggest no acute life-limiting etiology. Specifically no sign of acute surgical pathology the abdomen or pelvis. Patient is appropriate discharge home with close outpatient PCP and GI follow-up. Incidental findings on CT scan ultrasound discussed with the patient. The patient and/or family, caregivers express understanding. The patient and/or family, caregivers agrees with the plan. Shared decision making: I will have a discussion with the patient and or visitors regarding risk/benefits of further testing or admission. They will be made aware of of the risk/benefits inherent in this decision they will be given the opportunity to voice understanding. Total critical care time today provided was at least 0 minutes. This excludes separately billable procedures. Critical care time (if documented) is secondary to the patient having high probability of clinically significant/life threatening deterioration in the patient's condition which required my urgent intervention. Impression: 1. Right upper quadrant abdominal pain Dispo: Discharge home This note was generated with [employer] dictation software. It may contain incorrect words, spelling, and punctuation that were not noted in review of the chart prior to signing. Lab Data Labs: Laboratory Results - last 24 hr 07/31/24 07/31/24 15:35 16:03 WBC 5.4 RBC 4.26 Hgb 13.2 Hct 40.0 MCV 93.9 MCH 31.0 MCHC 33.0 RDW Std Deviation 45.6 H RDW Coeff of [place] 13.6 Plt Count 267 MPV 8.5 Immature Gran % (Auto) 0.600 Neut % (Auto) 70.4 H Lymph % (Auto) 19.3 [place] % (Auto) 6.4 Eos % (Auto) 2.6 Baso % (Auto) 0.7 Absolute Neuts (auto) 3.8 Absolute Lymphs (auto) 1.05 Nucleated RBC % 0 Sodium 141 Potassium 4.1 Chloride 106 Carbon Dioxide 23.8 Anion Gap 11 BUN 15 Creatinine 1.00 Estim Creat Clear Calc 56.93 Est GFR (MDRD) Non-Af 62 BUN/Creatinine Ratio 14.9 Glucose 115 H Calcium 9.4 Total Bilirubin 0.29 Direct Bilirubin 0.14 AST 30 ALT 38 H Alkaline Phosphatase 71 Total Protein 7.0 Albumin 3.8 Globulin 3.2 Lipase 13 Urine Color Yellow Urine Clarity Sl. Cloudy Urine pH 6.0 Ur Specific [place] 1.015 Urine Protein 15 H Urine Glucose (UA) Normal Urine Ketones Negative Urine Occult Blood 10 H Urine Nitrite Negative Urine Bilirubin Negative Urine Urobilinogen Normal Ur Leukocyte Esterase 500 H Urine RBC 0-5 SEEN Urine WBC 5-10 SEEN Ur Squamous Epith Cells 0-5 SEEN Amorphous Sediment 1+ URATE Urine Bacteria 0 SEEN Urine Mucus 0 SEEN Radiography Diagnostic Testing: Clinical Impression(s) from Imaging Studies Gallbladder Ultrasound 07/31/24 15:48 IMPRESSION: No evidence of cholelithiasis. Multiple hepatic cysts, as well as a 1.8 cm ill-defined hypoechoic lesion. CT versus MRI of the liver with and without contrast may be helpful for further characterization. Reading [facility] Abdomen/Pelvis CT 07/31/24 16:15 IMPRESSION: 1. Borderline evidence of mild cystitis. Correlate with urinalysis. 2. New mild irregular opacities in the left lung base compatible with a minor infectious/inflammatory process such as pneumonia. Few nodules in the region up to 12 mm average axial diameter may be infectious/inflammatory however this is not definite. Recommend CT chest in 3 months to document stability or resolution. It appears that the patient will be nearly due for an annual low-dose lung screening CT at that time. 3. Additional description as above. Reading Location: [id number] Discharge Plan Triage Chief Complaint: Abd Pain ED Provider: Raza Ruiz Dx/Rx/DC Orders Instructions: ED Abdominal Pain Unkn Cause Fem Prescriptions: New ondansetron 4 mg tablet,disintegrating 4 mg PO Q8H PRN PRN (Reason: Nausea) Qty: 10 0RF No Action levothyroxine 50 mcg tablet 50 mcg PO DAILY atorvastatin 40 mg tablet 40 mg PO DAILY losartan 25 mg tablet 25 mg PO DAILY Qty: 90 3RF montelukast 10 mg tablet 10 mg PO DAILY clopidogrel 75 MG tablet 75 mg PO DAILY 30 Days Qty: 30 0RF alendronate 70 mg tablet 70 mg PO Q7D Patient Comments: PLEASE SEE ATTACHED FOR DETAILED DIRECTIONS citalopram 10 mg tablet 10 mg PO DAILY cholecalciferol (vitamin D3) 125 mcg (5,000 unit) tablet 125 mcg PO DAILY meclizine 25 mg tablet,chewable 25 mg PO TID PRN (Reason: dizziness) Qty: 30 0RF multivitamin [One Daily Multivitamin] Tablet 1 tab PO DAILY metronidazole 500 mg tablet 500 mg PO Q8H Qty: 30 0RF ciprofloxacin HCl 500 mg tablet 500 mg PO BID Qty: 20 0RF oxycodone-acetaminophen 5-325 mg tablet 1 tab PO Q6H PRN PRN (Reason: Pain) 3 Days Qty: 12 0RF levocetirizine [Allergy Relief (levocetirizin)] 5 mg tablet 5 mg PO DAILY Qty: 90 3RF albuterol sulfate 90 mcg/actuation HFA aerosol inhaler 2 puff inhalation Q6H PRN (Reason: Shortness Of Breath) Qty: 3 3RF Trelegy Ellipta 200-62.5-25 mcg blister with device 1 inh inhalation DAILY Qty: 60 6RF Primary Care Provider: Bird Ronquillo Referrals: Bird Ronquillo MD [Primary Care Provider] - Friend,DO Los [Med Staff - Active Staff] - Activity Restrictions/Additional Instructions: Thank you for trusting us with your care today! Your labs and images were reassuring. Specifically no sign of Significant gallbladder inflammation. No sign of acute abnormalities in the abdomen pelvis. Please take Tylenol (2 pills, 650 mg), ibuprofen (2 pills, 400 mg) every 6 hours as needed for pain and fever control. Please take Zofran as needed for nausea and vomiting control. Please return to the emergency department if your symptoms change or worsen. Please follow with your primary care physician and gastroenterology for further outpatient evaluation and management. Of note your CT scan and ultrasound showed abnormalities in your liver (likely benign cyst) that are unclear at this time. The radiologist recommended an outpatient MRI. This can be obtained via your primary care physician Print Language: Thai Disposition Disposition: Home, Self Care Discharge Date/Time: 07/31/24 19:33
[2024-07-31 15:43] LABS: Absolute Lymphocyte Count 1.05 X10^3/uL (0.83-4.51); Absolute Neutrophil Count 3.8 X10^3/uL (2.0-7.7); Basophil# 0.04 X10^3/uL; Basophil% 0.7 % (0-1); Eosinophil# 0.14 X10^3/uL; Eosinophils% 2.6 % (0-5); Hemoglobin 13.2 g/dL (12.0-15.0); Lymphocyte # 1.05 X10^3/ul (0.83-4.51); Lymphocyte % 19.3 % (19-41); Mean Corpuscular Volume 93.9 fL (81-99); Mean Platelet Vol. 8.5 fl (6.2-12.0); Monocyte# 0.35 X10^3/uL; Monocyte% 6.4 % (0-10); NRBC Flagged by Analyzer 0 % (0-5); Neutrophil # 3.82 X10^3/uL (2.7-7.7); Neutrophil % 70.4 % (47-70); Platelet Count 267 K/mm3 (150-450); RBC Distribution Width CV 13.6 % (11.6-14.6); RBC Distribution Width SD 45.6 fl (35.1-43.9); Red Blood Count 4.26 M/mm3 (4.2-5.4); White Blood Count 5.4 K/mm3 (4.4-11.0)
--- NOTE | 2024-07-31 15:48 | US_ITS ---
PROCEDURE: GALLBLADDER REASON FOR EXAM: Pain COMPARISON: CT of the abdomen and pelvis dated 07/31/2024 FINDINGS: Liver: Multiple scattered cystic lesions, the largest measuring 2 cm within the right hepatic lobe. There is an ill-defined hypoechoic lesion within the right hepatic lobe measuring 1.8 cm. Gallbladder: The gallbladder is contracted, no sonographic evidence of stones. No gallbladder wall thickening. Negative Gutierrez's sign. Common bile duct: Normal measuring 4 mm. Pancreas: Visualized portions are sonographically unremarkable. Visualized portions of the right kidney are unremarkable. No right upper quadrant ascites. US/Gallbladder IMPRESSION: No evidence of cholelithiasis. Multiple hepatic cysts, as well as a 1.8 cm ill-defined hypoechoic lesion. CT versus MRI of the liver with and without contrast may be helpful for further characterization. [facility]
[2024-07-31] MEDS: Ketorolac 15 MG/ML Vial IV (15:57)
[2024-07-31] MEDS: 0.9% Normal Saline (1000mL) 1,000 ML 999 ML IV (15:57)
[2024-07-31] MEDS: Ondansetron 4 MG/2 ML Vial IV (15:58)
[2024-07-31 16:09] LABS: AST(SGOT) 30 U/L (<=31); Alanine Aminotransfer ALT/SGPT 38 U/L (<=34); Albumin, Serum 3.8 g/dL (3.4-4.8); Alkaline Phosphatase 71 U/L (35-104); Anion Gap 11 (5-15); BUN 15 mg/dL (4-19); BUN/Creat Ratio 14.9 RATIO (10-20); Bilirubin, Direct 0.14 mg/dL (0.00-0.30); Calcium,Total 9.4 mg/dL (7.6-11.0); Carbon Dioxide 23.8 mmol/L (21.0-32.0); Chloride 106 mmol/L (98-108); EST Glomerular Filtration Rate 62 (>60); Estimated Creatinine Clearance 56.93 ml/min (50-250); Globulin 3.2 g/dL (2.2-4.2); Glucose 115 mg/dL (70-99); Lipase 13 U/L (13-75); Potassium 4.1 mmol/L (3.3-5.1); Sodium Level 141 mmol/L (133-145); Total Bilirubin 0.29 mg/dL (0.00-1.30)
[2024-07-31 16:12] LABS: Bacteria 0 SEEN /hpf (None Seen); Mucous, Urine 0 SEEN /hpf (<or=2+)
[2024-07-31 16:13] LABS: Color, Urine Yellow (Yellow); Glucose, Dipstick Normal (Normal); Ketone-Dipstick Negative (Negative); Leukocyte Esterase-Dipstick 500 /ul (Negative); Nitrite-Dipstick Negative (Negative); Occult Blood-Urine 10 /ul (Negative); Protein-Dipstick 15 mg/dl (Negative); Specific Gravity, Urine 1.015 (1.002-1.030); Urine Bilirubin Dipstick Negative (Negative); Urine Clarity Sl. Cloudy (Clear); Urine Urobilinogen Normal (Normal)
--- NOTE | 2024-07-31 16:15 | CT_ITS ---
PROCEDURE: ABDOMEN/PELVIS W IV CONT ONLY REASON FOR EXAM: Right sided abdominal pain TECHNIQUE: CT abdomen and pelvis was performed with IV contrast. IV CONTRAST: 93 mL Isovue-300 COMPARISON: 02/11/2024. FINDINGS: Lung bases: Emphysema. Mild irregular ground-glass opacities in the left lower lobe are new from prior. Similar 3 mm left lower lobe nodule (series 2 image 10). New irregular additional left lower lobe nodule measures 14 x 10 mm (image 13). Tiny hiatal hernia containing fat. Liver: Similar small cysts and additional tiny hypodensities too small to characterize likely to reflect cysts or hemangiomas in the absence of known malignancy.. Spleen: Unremarkable. Gallbladder: Unremarkable. Pancreas: Unremarkable. Adrenals: Unremarkable. Kidneys: Small renal sinus cysts. Bowel: Gastric underdistention again limits evaluation of wall thickness. Diverticulosis. Normal caliber appendix. Lymph nodes: Unremarkable. Vasculature: Atherosclerosis. Peritoneum: Unremarkable. Bladder: Decompressed and suboptimally evaluated. Wall thickness is questionably borderline disproportionate to the degree wall thickening is of underdistention . Reproductive Organs: Unremarkable. Body Wall: Mild rectus diastasis. Tiny fat containing umbilical hernia. Bones: Suspect demineralization. Lower thoracic predominant spondylosis including a right paracentral posterior disc/osteophyte complex impinging on the spinal canal at T10-T11. Trace thoracolumbar dextroscoliosis may be positional.. CT/Abdomen/Pelvis W IV Cont ONLY IMPRESSION: 1. Borderline evidence of mild cystitis. Correlate with urinalysis. 2. New mild irregular opacities in the left lung base compatible with a minor i nfectious/inflammatory process such as pneumonia. Few nodules in the region up to 12 mm average axial diameter may be infectious/ inflammatory however this is not definite. Recommend CT chest in 3 months to document stability or resolution. It appears that the patient will be nearly due for an annual low-dose lung screening CT at that time. 3. Additional description as above. Reading Location: [facility]
[2024-07-31 16:29] LABS: Red Blood Cells-Urine 0-5 SEEN /hpf (0-5); Squamous Epithelial Cells - UA 0-5 SEEN /hpf (5-10); White Blood Cells 5-10 SEEN /hpf (0-5)
[2024-07-31 16:30] LABS: Amorphous Sediment 1+ URATE
[2024-07-31 17:12] VITALS: BP 136/78; PULSE 65; RESP 15; O2SAT 97
[2024-07-31 19:32] VITALS: BP 128/66; PULSE 71; RESP 16; TEMP 36.6; O2SAT 99
== END 2024-07-31 19:33 | disposition home or self-care (01) ==
PROVIDERS: Emergency Provider Emergency Medicine; PCP Family Medicine; Visit Provider Emergency Medicine
DX: R10.11 Right upper quadrant pain (principal); J44.9 Chronic obstructive pulmonary disease, unspecified; R11.0 Nausea; K76.89 Other specified diseases of liver; I10 Essential (primary) hypertension; I25.2 Old myocardial infarction; E03.9 Hypothyroidism, unspecified; I25.10 Atherosclerotic heart disease of native coronary artery without angina pectoris; K21.9 Gastro-esophageal reflux disease without esophagitis; F41.9 Anxiety disorder, unspecified; F32.A Depression, unspecified; E78.00 Pure hypercholesterolemia, unspecified; M81.0 Age-related osteoporosis without current pathological fracture; G25.81 Restless legs syndrome; Z86.73 Personal history of transient ischemic attack (TIA), and cerebral infarction without residual deficits; Z87.19 Personal history of other diseases of the digestive system; Z79.890 Hormone replacement therapy; Z79.02 Long term (current) use of antithrombotics/antiplatelets; Z79.899 Other long term (current) drug therapy; Z87.891 Personal history of nicotine dependence
CPT/HCPCS: 74177; 76705; 80048; 80076; 81001; 83690; 85025; 93005; 96361; 96374; 96375; 99283; Q9967; J2405

== ENCOUNTER 2024-09-30 07:28 | Emergency (ER) | payer MEDICARE, MEDICAID, SELFPAY ==
[2024-09-30 07:29] VITALS: BP 184/76; PULSE 80; RESP 20; TEMP 36.6; O2SAT 88; BMI 28.3
--- NOTE | 2024-09-30 07:48 | CT_ITS ---
PROCEDURE: ABDOMEN/PELVIS W IV CONT ONLY 09/30/2024 REASON FOR EXAM: RLQ PAIN, ROVSING SIGN, PERCUSSION TENDERNESS TECHNIQUE: Abdomen and pelvis CT with intravenous contrast. Coronal and Sagittal reconstruction series were provided. PATIENT PREPARATION: Per protocol ORAL CONTRAST TYPE: None. CONTRAST: Isovue-300 VOLUME: 99 mL One or more dose reduction techniques were used (e.g., Automated exposure control, adjustment of the mA and/or kV according to patient size, use of iterative reconstruction technique. RADIATION DOSE SUMMARY: CTDlvol: 9.97+ 15.49 mGy DLP: 734.62 mGycm COMPARISON: 07/31/2024 COMPARISON: 08/01/2023 FINDINGS: Note that the exam is slightly limited by late arterial phase of contrast timing with unopacified hepatic veins. Lung bases: Suspect emphysema. Atelectasis/scarring. Tiny hiatal hernia.. Liver: Redemonstrated small cysts and additional tiny hypodensities too small to characterize likely cysts or hemangiomas in the absence of known malignancy. Spleen: Unremarkable. Gallbladder: Unremarkable. Pancreas: Unremarkable. Adrenals: Unremarkable. Kidneys: Renal sinus cysts. Bowel: Diverticulosis. Partially visualized appendix is normal in caliber and without definite inflammation where visible.. Lymph nodes: Unremarkable. Vasculature: Atherosclerosis.. Peritoneum: Unremarkable. Bladder: Underdistended and suboptimally evaluated, grossly unremarkable. Reproductive Organs: Unremarkable. Body Wall: Mild rectus diastasis. Tiny superimposed fat containing umbilical hernia. Bones: Demineralization. Multilevel spondylosis. Trace thoracolumbar dextroscoliosis may be positional. Similar posterior disc/osteophyte complex along the lower thoracic spine.. CT/Abdomen/Pelvis W IV Cont ONLY IMPRESSION: 1. No acute findings. Partially visualized appendix is normal in caliber and wi thout definite inflammation where visible. 2. Additional description as above. Reading Location: [id number]
[2024-09-30] MEDS: 0.9% Normal Saline (1000mL) 1,000 ML 125 ML IV (08:03)
[2024-09-30] MEDS: Morphine 4 MG/ML Syringe IV (08:04)
[2024-09-30] MEDS: Ondansetron 4 MG/2 ML Vial IV (08:04)
[2024-09-30 08:18] LABS: Absolute Lymphocyte Count 1.44 X10^3/uL (0.83-4.51); Absolute Neutrophil Count 2.4 X10^3/uL (2.0-7.7); Basophil# 0.05 X10^3/uL; Basophil% 1.1 % (0-1); Eosinophil# 0.19 X10^3/uL; Eosinophils% 4.2 % (0-5); Hematocrit 38.6 % (37-47); Lymphocyte # 1.44 X10^3/ul (0.83-4.51); Mean Corp Hgb Conc 33.7 g/dL (32-36); Mean Corpuscular Hgb 31.6 pg (27.0-32.0); Mean Corpuscular Volume 93.7 fL (81-99); Mean Platelet Vol. 8.8 fl (6.2-12.0); Monocyte# 0.39 X10^3/uL; Monocyte% 8.7 % (0-10); NRBC Flagged by Analyzer 0 % (0-5); Neutrophil # 2.42 X10^3/uL (2.7-7.7); Neutrophil % 53.8 % (47-70); Platelet Count 196 K/mm3 (150-450); RBC Distribution Width CV 13.5 % (11.6-14.6); Red Blood Count 4.12 M/mm3 (4.2-5.4); White Blood Count 4.5 K/mm3 (4.4-11.0)
[2024-09-30] MEDS: Clindamycin 900 MG/50 ML BAG 75 MG IV (08:48)
--- NOTE | 2024-09-30 08:51 | EX.ED.DYSGE1 ---
HPI History of Present Illness Chief Complaint: Abd Pain Detail of Chief Complaint: Right lower quadrant abdominal pain with nausea and vomiting Informant: patient and spouse/S.O. Onset/Context/Timing Onset: Today (Early this morning.) Context: Sudden Onset Timing: Continuous and Waxes and wanes Quality: Pain Location: Proximity of McBurney's point Current Severity: Mild Maximum Severity: Severe Worsened by: Walking Relieved by: Nothing Associated Symptoms Associated Symptoms: Nausea and vomiting at approximately 0700 Narrative Narrative: Patient is a 69-year-old woman. She has history of chronic hypoxic respiratory failure, TIA, stage III severe COPD by Gold 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, essential hypertension, mixed hyperlipidemia, hypothyroidism and reported case of myocardial infarction. There is also history of anxiety disorder. Patient presents because of right lower quadrant pain. She had episode of nausea vomiting at home. She still feels nauseous. She had diarrhea several days ago. She had no blood or mucus in the diarrhea. Denies constipation. Denies history of diverticulosis or diverticulitis. She states she had a colonoscopy by Dr. Phillips last year. She was told there was no abnormality. She denies dysuria, frequency, urgency or hematuria. She denies history of ureterolithiasis, but does have history of renal calculi.. There is no history of trauma. She has not noted a rash. She states she was told that she has a hyperactive gallbladder. Patient's significant other reported incontinence for the past week. She has no history of cystocele or rectocele. Prior similar symptoms: No Recent Illness/Hospitalization: No PFSH PFSH Medical History Osteoporosis Kidney stones Kidney disease GERD (gastroesophageal reflux disease) Myocardial infarct Internal impingement of right shoulder Hypothyroidism Abnormal Holter monitor finding Sinus pause Mixed hyperlipidemia Atherosclerotic heart disease of [place] coronary artery without angina pectoris Essential hypertension Traumatic avulsion of nail plate of toe Thigh pain History of IBS Wears glasses Wears dentures Depression Anxiety Skin tear Bruising Thyroid disease Ambulates with cane History of renal disease Arthritis High cholesterol Easy bruising Restless legs Difficulty swallowing Difficulty chewing History of hiatal hernia Gastric reflux Former smoker Shortness of breath on exertion Stroke/cerebrovascular accident History of echocardiogram History of stress test History of heart attack History of irregular heartbeat Acute seasonal allergic rhinitis Acute serous otitis media Acute dysfunction of both eustachian tubes Fuchs' corneal dystrophy HTN (hypertension) COPD (chronic obstructive pulmonary disease) Bronchitis Constipation Abdominal pain Chest pain CAD (coronary artery disease) Hypoxia Diaphragm paralysis History of cerebrovascular disease History of CVA (cerebrovascular accident) Anxiety disorder Home Medications ?Medication ?Instructions ?Recorded ?Last Taken ?Type clopidogrel 75 mg tablet 75 mg PO DAILY BLOOD THINNER 30 06/08/22 09/29/24 Rx days #30 tabs atorvastatin 40 mg tablet 40 mg PO DAILY 07/01/22 09/29/24 History losartan 25 mg tablet 25 mg PO DAILY #90 tabs 09/29/22 09/29/24 Rx alendronate 70 mg tablet 70 mg PO Q7D 08/14/23 09/29/24 History cholecalciferol (vitamin D3) 125 125 mcg PO DAILY 08/14/23 09/29/24 History mcg (5,000 unit) tablet citalopram 10 mg tablet 10 mg PO DAILY 08/14/23 09/29/24 History montelukast 10 mg tablet 10 mg PO DAILY 12/01/23 09/29/24 History levocetirizine 5 mg tablet 5 mg PO DAILY ALLERGIES #90 tabs 01/01/24 09/29/24 Rx (Allergy Relief (levocetirizine)) albuterol sulfate 90 mcg/actuation 2 puff inhalation Q6H PRN 01/02/24 09/23/24 Rx aerosol inhaler Shortness Of Breath #3 ea multivitamin (One Daily 1 tab PO DAILY 01/16/24 09/29/24 History Multivitamin tablet) fluticasone fur. 200 mcg-umeclid 1 inh inhalation DAILY #60 ea 06/25/24 09/29/24 Rx 62.5 mcg-vilant 25 mcg inhalat.powder (Trelegy Ellipta) ondansetron 4 mg disintegrating 4 mg PO Q8H PRN PRN Nausea #10 tabs 07/31/24 Unknown Rx tablet levothyroxine 75 mcg tablet 75 mcg PO DAILY 09/30/24 09/29/24 History pantoprazole 40 mg tablet,delayed 40 mg PO DAILY 09/30/24 09/29/24 History release Allergy/AdvReac Type Severity Reaction Status Date / Time hydrocodone bitartrate (From Allergy HALLUCINATE Verified 09/30/24 07:30 Vicodin) S piperacillin (From Zosyn) Allergy Hives Verified 09/30/24 07:30 tazobactam (From Zosyn) Allergy Hives Verified 09/30/24 07:30 vancomycin Allergy Rash Verified 09/30/24 07:30 fish derived AdvReac Anaphylaxis Verified 09/30/24 07:30 morphine AdvReac HALLUCINATE Verified 09/30/24 07:30 S Family History Mother Diabetes Heart disease Hypertension High cholesterol Father Heart disease Hypertension High cholesterol CVA (cerebral vascular accident) Surgical History History of right breast biopsy History of surgery on lower extremity History of bilateral cataract extraction History of shoulder surgery History of tubal ligation Social History household members: significant other housing: apartment pets and animals: Yes pets and animals: dog(s) Smoking Status: Former smoker quit date: 10/28/19 pack-years: 25 Tobacco: How many years used: 25 second hand exposure: Yes alcohol intake: never substance use type: does not use caffeine: Yes Type: coffee Number of servings: 1 ROS ROS ED Constitutional Constitutional ED: Denies chills, fever(s), subjective or sweats Eyes Eyes: Denies blurry vision or change in vision ENT ENT ED: Denies ear pain, rhinorrhea or sore throat Cardiovascular Cardiovascular: Denies chest pain, orthopnea, palpitations or paroxysmal nocturnal dyspnea Respiratory/Chest Respiratory/Chest: Denies cough, dyspnea, dyspnea on exertion, orthopnea or paroxysmal nocturnal dyspnea Gastrointestinal Gastrointestinal: Reports abdominal pain, nausea and vomiting; Denies constipation, diarrhea or melena Genitourinary Genitourinary ED: Denies dysuria, hematuria or urinary frequency Musculoskeletal Musculoskeletal: Denies arthralgias, back pain or myalgias Integumentary Denies rash Neurologic Neurologic: Denies weakness Psychiatric Psychiatric: Reports anxiety Hematologic/Lymphatic Hematologic/Lymphatic: Reports systems reviewed and no addt'l complaints, except as documented EXAM Physical Exam Const Vital Signs: 09/30/24 07:29 09/30/24 09:28 Temperature 97.9 F 98.7 F Temperature Source Oral Oral Pulse Rate 80 89 Respiratory Rate 20 H 16 Blood Pressure 184/76 H 139/64 H Blood Pressure Mean 112 89 Pulse Ox 88 98 Oxygen Delivery Method Room Air Room Air Positive well nourished and well developed Constitutional Narrative: Patient does appear uncomfortable. Vital signs noted. General Appearance ED: well developed and pallor; Negative for cyanotic, diaphoretic or NAD HEENT HEENT Narrative: Head is atraumatic and cephalic. Ears normal. Nares patent. Posterior pharynx is normal. Eyes PERRL and EOMs intact bilaterally General Eye ED: Negative for pale conjunctiva or scleral icterus Neck no lymphadenopathy, supple and no JVD Chest Wall inspection of chest normal and palpation of chest normal Resp normal respiratory effort and clear to auscultation bilaterally Cardio regular rate, regular rhythm, S1 normal heart sound, S2 normal heart sound and no murmurs GI non-distended and no masses; Negative for normal to inspection, nondistended, normoactive bowel sounds, non-tender or hepatosplenomegaly Auscultation: hypoactive bowel sounds Palpation: soft, tender RLQ and McBurney's point, guarding RLQ and rebound tenderness present other (Percussion tenderness in the proximity of McBurney's point. Positive Rovsing sign.) Back/Spine no CVA tenderness Neuro oriented x3 and CN's II-XII intact bilaterally Sensorium / Orientation: alert Skin no rashes or lesions noted, no wounds and skin turgor normal General Skin Exam: elasticity normal and pallor; Negative for jaundice MDM MDM MDM Narrative Medical decision making narrative: Differential diagnosis would include ureterolithiasis, appendicitis, mesenteric adenitis, right-sided diverticulitis this or abdominal pain of unknown etiology. Since patient has peritoneal signs with positive Rovsing sign point tenderness at McBurney's point she was darted on antibiotics because of her having peritoneal findings. Because of her allergies she was given clindamycin. Appropriate blood work was obtained. History & Record Review Additional record(s) reviewed:: Prior ED visit (Seen July 31 for right upper quadrant pain by Dr. Ruiz. Her workup was unremarkable. She was seen June for abdominal pain with an unremarkable workup. She also was seen January 2024 for abdominal pain.) and Prior labs Lab Data Attestation: I reviewed the patient's lab results. Lab results narrative: White count is normal. Differential is normal. H&H is normal. Basic metabolic panel is remarked for an elevated BUN to creatinine ratio 26:1 and glucose slightly elevated 110 with normal CO2 anion gap. Labs: Laboratory Results - last 24 hr 09/30/24 09/30/24 07:56 08:04 WBC 4.5 RBC 4.12 L Hgb 13.0 Hct 38.6 MCV 93.7 MCH 31.6 MCHC 33.7 RDW Std Deviation 46.0 H RDW Coeff of Keo 13.5 Plt Count 196 MPV 8.8 Immature Gran % (Auto) 0.200 Neut % (Auto) 53.8 Lymph % (Auto) 32.0 [place] % (Auto) 8.7 Eos % (Auto) 4.2 Baso % (Auto) 1.1 H Absolute Neuts (auto) 2.4 Absolute Lymphs (auto) 1.44 Nucleated RBC % 0 Sodium 138 Potassium 4.1 Chloride 104 Carbon Dioxide 22.6 Anion Gap 12 BUN 25 H Creatinine 0.96 Estim Creat Clear Calc 60.57 Est GFR (MDRD) Non-Af 65 BUN/Creatinine Ratio 26.0 H Glucose 110 H Lactic Acid < 1.0 Calcium 9.4 Radiography Diagnostic Testing: Clinical Impression(s) from Imaging Studies Abdomen/Pelvis CT 09/30/24 07:48 IMPRESSION: 1. No acute findings. Partially visualized appendix is normal in caliber and without definite inflammation where visible. 2. Additional description as above. Reading Location: [facility] report was reviewed. Patient has a significant mount of fecal matter cecum, ascending colon, transverse colon and descending colon. This may be the cause of her pains as there is no other abnormality noted. Patient was informed of the CAT scan results and laboratory results. She was discharged to home with her in stable condition. She had no questions. Treatment and Re-Evaluation :: When patient was reevaluated and exited interview was performed she was pain-free. Discharge Plan Triage Chief Complaint: Abd Pain ED Provider: Ed Gorman Dx/Rx/DC Orders Clinical Impression: Abdominal pain, acute, right lower quadrant, 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, Essential hypertension, Mixed hyperlipidemia, Nausea & vomiting, Obstipation Instructions: ED Constipation (Adult) Prescriptions: No Action atorvastatin 40 mg tablet 40 mg PO DAILY losartan 25 mg tablet 25 mg PO DAILY Qty: 90 3RF montelukast 10 mg tablet 10 mg PO DAILY clopidogrel 75 MG tablet 75 mg PO DAILY 30 Days Qty: 30 0RF alendronate 70 mg tablet 70 mg PO Q7D Patient Comments: PLEASE SEE ATTACHED FOR DETAILED DIRECTIONS citalopram 10 mg tablet 10 mg PO DAILY cholecalciferol (vitamin D3) 125 mcg (5,000 unit) tablet 125 mcg PO DAILY multivitamin [One Daily Multivitamin] Tablet 1 tab PO DAILY ondansetron 4 mg tablet,disintegrating 4 mg PO Q8H PRN PRN (Reason: Nausea) Qty: 10 0RF levothyroxine 75 mcg tablet 75 mcg PO DAILY pantoprazole 40 mg tablet,delayed release (DR/EC) 40 mg PO DAILY levocetirizine [Allergy Relief (levocetirizin)] 5 mg tablet 5 mg PO DAILY Qty: 90 3RF albuterol sulfate 90 mcg/actuation HFA aerosol inhaler 2 puff inhalation Q6H PRN (Reason: Shortness Of Breath) Qty: 3 3RF Trelegy Ellipta 200-62.5-25 mcg blister with device 1 inh inhalation DAILY Qty: 60 6RF Primary Care Provider: Bird Ronquillo Referrals: Bird Ronquillo MD [Primary Care Provider] - 3-5 Days if not improving Activity Restrictions/Additional Instructions: 1. Recommend drinking 10 ounces of mag citrate. 2. 4 hours after you drink the mag citrate full glass of your favorite beverage when capful of MiraLAX. 3. Repeat step 2 every 1-2 hours until you have results. Print Language: Irish Disposition Disposition: Home, Self Care
[2024-09-30 08:55] LABS: Anion Gap 12 (5-15); BUN 25 mg/dL (4-19); Calcium,Total 9.4 mg/dL (7.6-11.0); Carbon Dioxide 22.6 mmol/L (21.0-32.0); Chloride 104 mmol/L (98-108); Creatinine, Serum 0.96 mg/dL (0.70-1.20); EST Glomerular Filtration Rate 65 (>60); Estimated Creatinine Clearance 60.57 ml/min (50-250); Glucose 110 mg/dL (70-99); Potassium 4.1 mmol/L (3.3-5.1); Sodium Level 138 mmol/L (133-145)
[2024-09-30 09:09] LABS: Lactic Acid < 1.0 mmol/L (0.0-2.0)
[2024-09-30 09:28] VITALS: BP 139/64; PULSE 89; RESP 16; TEMP 37.1; O2SAT 98
[2024-09-30 10:39] VITALS: BP 136/72; PULSE 64; RESP 18; TEMP 36.6; O2SAT 99
== END 2024-09-30 10:40 | disposition home or self-care (01) ==
PROVIDERS: Emergency Provider Emergency Medicine; PCP Family Medicine; Visit Provider Emergency Medicine
DX: R10.31 Right lower quadrant pain (principal); J44.89 Other specified chronic obstructive pulmonary disease; R11.2 Nausea with vomiting, unspecified; Z87.891 Personal history of nicotine dependence; F41.9 Anxiety disorder, unspecified; E03.9 Hypothyroidism, unspecified; I10 Essential (primary) hypertension; E78.2 Mixed hyperlipidemia; I25.10 Atherosclerotic heart disease of native coronary artery without angina pectoris; K59.00 Constipation, unspecified; I25.2 Old myocardial infarction; Z86.73 Personal history of transient ischemic attack (TIA), and cerebral infarction without residual deficits; Z79.02 Long term (current) use of antithrombotics/antiplatelets; Z79.899 Other long term (current) drug therapy; Z79.51 Long term (current) use of inhaled steroids; Z79.890 Hormone replacement therapy; K21.9 Gastro-esophageal reflux disease without esophagitis; Z98.41 Cataract extraction status, right eye; Z98.42 Cataract extraction status, left eye; Z98.51 Tubal ligation status
CPT/HCPCS: 74177; 80048; 83605; 85025; 96361; 96365; 96375; 99283; Q9967; A4216; J2405

== ENCOUNTER 2024-10-13 17:05 | Emergency (ER) | payer MEDICARE, MEDICAID, SELFPAY ==
[2024-10-13 17:06] VITALS: BP 146/77; PULSE 67; RESP 19; TEMP 36.1; O2SAT 93; BMI 28.3
--- NOTE | 2024-10-13 17:27 | CT_ITS ---
PROCEDURE: ABDOMEN/PELVIS W IV CONT ONLY 10/13/2024 REASON FOR EXAM: RIGHT LOWER QUADRANT ABDOMINAL PAIN TECHNIQUE: Abdomen and pelvis CT with intravenous contrast. Coronal and Sagittal reconstruction series were provided. PATIENT PREPARATION: Per protocol ORAL CONTRAST TYPE: None. AMOUNT: mL CONTRAST: Omnipaque 350 VOLUME: 100 mL Not Provided Gauge IV One or more dose reduction techniques were used (e.g., Automated exposure control, adjustment of the mA and/or kV according to patient size, use of iterative reconstruction technique. COMPARISON: CT abdomen and pelvis 09/30/2024 FINDINGS: Lung bases: Emphysema within the imaged lung bases. Liver: Homogeneous attenuation. Several bilobar simple cysts. Gallbladder: No ductal dilation. Gallbladder is unremarkable. Spleen: Normal size. Pancreas: Normal size without evidence of mass surrounding inflammation or ductal dilation. Adrenals: Unremarkable Kidneys: Normal renal sizes. No hydronephrosis. Bladder: Unremarkable Reproductive Organs: No pelvic mass. Bowel: Small hiatal hernia. The stomach is collapsed. No bowel dilation or wall thickening. Colonic diverticulosis without diverticulitis. Large colonic stool. Appendix: Normal appendix. Lymph nodes: No suspicious lymph node enlargement. Vasculature: Moderate diffuse atherosclerotic calcifications are noted. Peritoneum / Retroperitoneum: No pneumoperitoneum. No ascites. Bones: No acute osseous abnormality. Soft tissue: No focal soft tissue abnormality. CT/Abdomen/Pelvis W IV Cont ONLY IMPRESSION: No acute findings in the abdomen and pelvis. Colonic diverticulosis without diverticulitis. Reading Location: [facility]
--- NOTE | 2024-10-13 17:44 | EDS_ITS ---
HPI History of Present Illness Chief Complaint: Abd Pain Narrative Narrative: Chief complaint and HPI: Right lower quadrant abdominal pain. 69-year-old female with past medical history of CVA on Plavix, HTN, HLD, hypothyroidism presents for evaluation of right lower quadrant abdominal pain. Onset this afternoon while lying down. Associated symptom nausea. Took aspirin and Zofran with little relief. Last bowel movement yesterday. Denies any fever, chills, shortness of breath, chest pain, vomiting, dysuria, hematuria. Review of systems: See HPI Medications: As listed on the chart Allergies: As listed on the chart PFSH: Per chart Vital signs: As listed on the chart. Reviewed. Physical exam: Gen: A&O x3, NAD Head: Normocephalic, atraumatic Eyes: No sclera icterus, conjunctiva clear ENT: Moist mucous membranes Neck: Trachea midline, No JVD CV: RRR, no murmurs, no peripheral edema Resp: Lungs CTA BL, no w/r/c GI: Abd soft, non-distended, tender to palpation in the right lower quadrant, no rebound or rigidity : No CVA tenderness Musc: Full ROM, no deformity Skin: Warm, dry Neuro: Alert, oriented, grossly intact, sensation intact Psych: Cooperative, appropriate mood and affect [facility] Medical History Osteoporosis Kidney stones Kidney disease GERD (gastroesophageal reflux disease) Myocardial infarct Internal impingement of right shoulder Hypothyroidism Abnormal Holter monitor finding Sinus pause Mixed hyperlipidemia Atherosclerotic heart disease of [place] coronary artery without angina pectoris Essential hypertension Traumatic avulsion of nail plate of toe Thigh pain History of IBS Wears glasses Wears dentures Depression Anxiety Skin tear Bruising Thyroid disease Ambulates with cane History of renal disease Arthritis High cholesterol Easy bruising Restless legs Difficulty swallowing Difficulty chewing History of hiatal hernia Gastric reflux Former smoker Shortness of breath on exertion Stroke/cerebrovascular accident History of echocardiogram History of stress test History of heart attack History of irregular heartbeat Acute seasonal allergic rhinitis Acute serous otitis media Acute dysfunction of both eustachian tubes Fuchs' corneal dystrophy HTN (hypertension) COPD (chronic obstructive pulmonary disease) Bronchitis Constipation Abdominal pain Chest pain CAD (coronary artery disease) Hypoxia Diaphragm paralysis History of cerebrovascular disease History of CVA (cerebrovascular accident) Anxiety disorder Home Medications ?Medication ?Instructions ?Recorded ?Last Taken ?Type clopidogrel 75 mg tablet 75 mg PO DAILY BLOOD THINNER 30 06/08/22 09/29/24 Rx days #30 tabs atorvastatin 40 mg tablet 40 mg PO DAILY 07/01/2209/20 History losartan 25 mg tablet 25 mg PO DAILY #90 tabs 09/1809/29/24 Rx alendronate 70 mg tablet 70 mg PO Q7D 08/14/23 History cholecalciferol (vitamin D3) 125 125 mcg PO DAILY 07/2709/29/24 History mcg (5,000 unit) tablet citalopram 10 mg tablet 10 mg PO DAILY 08/14/2309/20 History montelukast 10 mg tablet 10 mg PO DAILY 12/01/2309/20 History levocetirizine 5 mg tablet 5 mg PO DAILY ALLERGIES #90 tabs 01/01/24 09/29/24 Rx (Allergy Relief (levocetirizine)) albuterol sulfate 90 mcg/actuation 2 puff inhalation Q 6H PRN 01/02/24 09/23/24 Rx aerosol inhaler Shortness Of Breath #3 ea multivitamin (One Daily 1 tab PO DAILY 01/16/2409/20 History Multivitamin tablet) fluticasone fur. 200 mcg-umeclid 1 inh inhalation TONY Y #60 ea 06/25/24 09/29/24 Rx 62.5 mcg-vilant 25 mcg inhalat.powder (Trelegy Ellipta) ondansetron 4 mg disintegrating 4 mg PO Q8H PRN PRN Na usea #10 tabs 07/31/24 Unknown Rx tablet levothyroxine 75 mcg tablet 75 mcg PO DAILY 09/30/24 0 09/29/24 History pantoprazole 40 mg tablet,delayed 40 mg PO DAILY 09/3009/29/24 History release Allergy/AdvReac Type Severity Reaction Status Date / Time hydrocodone bitartrate (From Allergy HALLUCINATE Verified 10/13/24 17:06 Vicodin) S piperacillin (From Zosyn) Allergy Hives Verified 10/13/24 17:06 tazobactam (From Zosyn) Allergy Hives Verified 10/13/24 17:06 vancomycin Allergy Rash Verified 10/13/24 17:06 fish derived AdvReac Anaphylaxis Verified 10/13/24 17:06 morphine AdvReac HALLUCINATE Verified 10/13/24 17:06 S Family History Mother Diabetes Heart disease Hypertension High cholesterol Father Heart disease Hypertension High cholesterol CVA (cerebral vascular accident) Surgical History History of right breast biopsy History of surgery on lower extremity History of bilateral cataract extraction History of shoulder surgery History of tubal ligation Social History household members: significant other housing: apartment pets and animals: Yes pets and animals: dog(s) Smoking Status: Former smoker quit date: 10/28/19 pack-years: 25 Tobacco: How many years used: 25 second hand exposure: Yes alcohol intake: never substance use type: does not use caffeine: Yes Type: coffee Number of servings: 1 EXAM Physical Exam Const Vital Signs: 10/13/24 17:06 10/13/24 20:15 10/13/24 20:19 Temperature 96.9 F L Temperature Source Temporal Pulse Rate 67 Respiratory Rate 19 H Blood Pressure 146/77 H Blood Pressure Mean 100 Pulse Ox 93 74 90 Oxygen Delivery Method Room Air Room Air Nasal Cannula Oxygen Flow Rate (L/min) 2 10/13/24 21:24 Temperature 98.6 F Temperature Source Pulse Rate 78 Respiratory Rate 19 H Blood Pressure 152/78 H Blood Pressure Mean 102 Pulse Ox 90 Oxygen Delivery Method Oxygen Flow Rate (L/min) MDM MDM MDM Narrative Medical decision making narrative: 69-year-old female with past medical history of CVA on Plavix, HTN, HLD, hypothyroidism presents for evaluation of right lower quadrant abdominal pain. Differential diagnosis includes but is not limited to appendicitis, colitis, nephrolithiasis, UTI. NS bolus, Zofran, morphine ordered for symptoms. Abdominal pain workup ordered including CT abdomen pelvis. CBC with leukopenia of 4.3, this is seen on previous labs. Otherwise CBC unremarkable. CMP unremarkable. Lipase unremarkable. UA negative for UTI. Patient became hypoxic here in the emergency department, I suspect that this is secondary to her morphine. She did not endorse any shortness of breath. Patient was placed on 2 L nasal cannula and saturations improved. CT abdomen pelvis shows no acute intra-abdominal findings. Patient has colonic diverticulosis without diverticulitis. Patient is constipated. At this point in time, no clear etiology of patient's symptoms although it may be secondary to constipation. On reevaluation she is still having some abdominal pain, Toradol ordered. Will take her off oxygen and monitor for hypoxia. Patient had no recurrent hypoxic episodes. Her abdominal pain has improved with Toradol. Patient was told to follow-up with PCP. Return precautions explained. Patient stable to discharge home. Impression: 1. Abdominal pain Lab Data Labs: Laboratory Results - last 24 hr 10/13/24 10/13/24 17:57 18:55 WBC 4.3 L RBC 4.20 Hgb 13.2 Hct 39.7 MCV 94.5 MCH 31.4 MCHC 33.2 RDW Std Deviation 46.5 H RDW Coeff of Keo 13.3 Plt Count 182 MPV 8.7 Immature Gran % (Auto) 0.200 Neut % (Auto) 57.6 Lymph % (Auto) 29.6 [place] % (Auto) 7.7 Eos % (Auto) 4.0 Baso % (Auto) 0.9 Absolute Neuts (auto) 2.5 Absolute Lymphs (auto) 1.26 Nucleated RBC % 0 Sodium 140 Potassium 4.5 Chloride 104 Carbon Dioxide 27.8 Anion Gap 8 BUN 17 Creatinine 0.97 Estim Creat Clear Calc 59.97 Est GFR (MDRD) Non-Af 64 BUN/Creatinine Ratio 17.8 Glucose 100 H Calcium 9.3 Total Bilirubin 0.41 AST 27 ALT 28 Alkaline Phosphatase 71 Total Protein 6.7 Albumin 3.8 Globulin 2.9 Albumin/Globulin Ratio 1.3 Lipase 12 L Urine Color Yellow Urine Clarity Clear Urine pH 7.0 Ur Specific [place] 1.010 Urine Protein 15 H Urine Glucose (UA) Normal Urine Ketones Negative Urine Occult Blood Negative Urine Nitrite Negative Urine Bilirubin Negative Urine Urobilinogen Normal Ur Leukocyte Esterase 100 H Urine RBC 0 SEEN Urine WBC 0 SEEN Ur Squamous Epith Cells 0 SEEN Urine Bacteria 0 SEEN Urine Mucus 0 SEEN Radiography Diagnostic Testing: Clinical Impression(s) from Imaging Studies Abdomen/Pelvis CT 10/13/24 17:27 IMPRESSION: No acute findings in the abdomen and pelvis. Colonic diverticulosis without diverticulitis. Reading Location: [facility] Discharge Plan Triage Chief Complaint: Abd Pain ED Provider: Colin Caba Dx/Rx/DC Orders Clinical Impression: Abdominal pain Instructions: ED Abdominal Pain Unkn Cause Fem Prescriptions: No Action atorvastatin 40 mg tablet 40 mg PO DAILY losartan 25 mg tablet 25 mg PO DAILY Qty: 90 3RF montelukast 10 mg tablet 10 mg PO DAILY clopidogrel 75 MG tablet 75 mg PO DAILY 30 Days Qty: 30 0RF alendronate 70 mg tablet 70 mg PO Q7D Patient Comments: PLEASE SEE ATTACHED FOR DETAILED DIRECTIONS citalopram 10 mg tablet 10 mg PO DAILY cholecalciferol (vitamin D3) 125 mcg (5,000 unit) tablet 125 mcg PO DAILY multivitamin [One Daily Multivitamin] Tablet 1 tab PO DAILY ondansetron 4 mg tablet,disintegrating 4 mg PO Q8H PRN PRN (Reason: Nausea) Qty: 10 0RF levothyroxine 75 mcg tablet 75 mcg PO DAILY pantoprazole 40 mg tablet,delayed release (DR/EC) 40 mg PO DAILY levocetirizine [Allergy Relief (levocetirizin)] 5 mg tablet 5 mg PO DAILY Qty: 90 3RF albuterol sulfate 90 mcg/actuation HFA aerosol inhaler 2 puff inhalation Q6H PRN (Reason: Shortness Of Breath) Qty: 3 3RF Trelegy Ellipta 200-62.5-25 mcg blister with device 1 inh inhalation DAILY Qty: 60 6RF Primary Care Provider: Bird Ronquillo Referrals: Bird Ronquillo MD [Primary Care Provider] - 3-5 Days Activity Restrictions/Additional Instructions: Follow-up with primary care physician. Return back to the ED if symptoms change or worsen. At this point in time no clear reason for your pain. You received Toradol here in the emergency department. No ibuprofen for 8 hours after that okay to take. Okay for Tylenol. Print Language: Prydeinig Disposition Disposition: Home, Self Care Discharge Date/Time: 10/13/24 21:30
[2024-10-13] MEDS: Morphine 4 MG/ML Syringe IV (17:47)
[2024-10-13] MEDS: Ondansetron 4 MG/2 ML Vial IV (17:47)
[2024-10-13] MEDS: 0.9% Normal Saline (1000mL) 1,000 ML 999 ML IV (17:47)
[2024-10-13 18:02] LABS: Absolute Lymphocyte Count 1.26 X10^3/uL (0.83-4.51); Absolute Neutrophil Count 2.5 X10^3/uL (2.0-7.7); Basophil# 0.04 X10^3/uL; Basophil% 0.9 % (0-1); Eosinophil# 0.17 X10^3/uL; Hematocrit 39.7 % (37-47); Hemoglobin 13.2 g/dL (12.0-15.0); Lymphocyte # 1.26 X10^3/ul (0.83-4.51); Lymphocyte % 29.6 % (19-41); Mean Corp Hgb Conc 33.2 g/dL (32-36); Mean Corpuscular Hgb 31.4 pg (27.0-32.0); Mean Corpuscular Volume 94.5 fL (81-99); Mean Platelet Vol. 8.7 fl (6.2-12.0); Monocyte# 0.33 X10^3/uL; Monocyte% 7.7 % (0-10); NRBC Flagged by Analyzer 0 % (0-5); Neutrophil # 2.45 X10^3/uL (2.7-7.7); Neutrophil % 57.6 % (47-70); Platelet Count 182 K/mm3 (150-450); RBC Distribution Width CV 13.3 % (11.6-14.6); RBC Distribution Width SD 46.5 fl (35.1-43.9); White Blood Count 4.3 K/mm3 (4.4-11.0)
[2024-10-13 18:22] LABS: ALB/GLOB Ratio 1.3 RATIO (0.9-2.4); AST(SGOT) 27 U/L (<=31); Alanine Aminotransfer ALT/SGPT 28 U/L (<=34); Albumin, Serum 3.8 g/dL (3.4-4.8); Alkaline Phosphatase 71 U/L (35-104); Anion Gap 8 (5-15); BUN 17 mg/dL (4-19); BUN/Creat Ratio 17.8 RATIO (10-20); Calcium,Total 9.3 mg/dL (7.6-11.0); Carbon Dioxide 27.8 mmol/L (21.0-32.0); Chloride 104 mmol/L (98-108); Creatinine, Serum 0.97 mg/dL (0.70-1.20); EST Glomerular Filtration Rate 64 (>60); Estimated Creatinine Clearance 59.97 ml/min (50-250); Globulin 2.9 g/dL (2.2-4.2); Glucose 100 mg/dL (70-99); Lipase 12 U/L (13-75); Potassium 4.5 mmol/L (3.3-5.1); Protein, Total 6.7 g/dL (5.9-8.4); Sodium Level 140 mmol/L (133-145); Total Bilirubin 0.41 mg/dL (0.00-1.30)
[2024-10-13 19:06] LABS: Bacteria 0 SEEN /hpf (None Seen); Mucous, Urine 0 SEEN /hpf (<or=2+); Red Blood Cells-Urine 0 SEEN /hpf (0-5); Squamous Epithelial Cells - UA 0 SEEN /hpf (5-10); White Blood Cells 0 SEEN /hpf (0-5)
[2024-10-13 19:22] LABS: Color, Urine Yellow (Yellow); Glucose, Dipstick Normal (Normal); Ketone-Dipstick Negative (Negative); Leukocyte Esterase-Dipstick 100 /ul (Negative); Nitrite-Dipstick Negative (Negative); Occult Blood-Urine Negative /ul (Negative); Protein-Dipstick 15 mg/dl (Negative); Urine Bilirubin Dipstick Negative (Negative); Urine Clarity Clear (Clear); Urine Urobilinogen Normal (Normal)
[2024-10-13 20:15] VITALS: O2SAT 74
[2024-10-13 20:19] VITALS: O2SAT 90
--- NOTE | 2024-10-13 20:19 | ED.RN ---
this rn assisted pt back to room after pt using restroom. upon putting pt back on monitor, pt pulse ox was reading 74% with a good wave form. this nure rechecked pulse ox on other hand. pt was not showing signs of distress or shortness of breath. this nurse applied 2l of oxygen. pt pulse ox went up to 92%. dr. scruggs notified.
[2024-10-13] MEDS: Ketorolac 15 MG/ML Vial IV (21:10)
[2024-10-13 21:24] VITALS: BP 152/78; PULSE 78; RESP 19; TEMP 37; O2SAT 90
== END 2024-10-13 21:30 | disposition home or self-care (01) ==
PROVIDERS: Emergency Provider Surgery; PCP Family Medicine; Visit Provider Surgery
DX: R10.31 Right lower quadrant pain (principal); J44.9 Chronic obstructive pulmonary disease, unspecified; R09.02 Hypoxemia; K57.30 Diverticulosis of large intestine without perforation or abscess without bleeding; K59.00 Constipation, unspecified; I10 Essential (primary) hypertension; E78.2 Mixed hyperlipidemia; E03.9 Hypothyroidism, unspecified; I25.2 Old myocardial infarction; K21.9 Gastro-esophageal reflux disease without esophagitis; I25.10 Atherosclerotic heart disease of native coronary artery without angina pectoris; F32.A Depression, unspecified; F41.9 Anxiety disorder, unspecified; M81.0 Age-related osteoporosis without current pathological fracture; Z79.02 Long term (current) use of antithrombotics/antiplatelets; Z86.73 Personal history of transient ischemic attack (TIA), and cerebral infarction without residual deficits; Z79.890 Hormone replacement therapy; Z79.899 Other long term (current) drug therapy; Z87.891 Personal history of nicotine dependence
CPT/HCPCS: 74177; 80053; 81001; 83690; 85025; 96361; 96374; 96375; 99283; Q9967; A4216; J2405

== ENCOUNTER → 2024-11-18 | Outpatient (CLI) | payer MEDICARE, MEDICAID, SELFPAY ==
--- NOTE | 2024-11-18 12:41 | CT_ITS ---
PROCEDURE: LOW DOSE CT LUNG SCREENING 11/18/2024 REASON FOR EXAM: SMOKER Patient has smoked 2 packs per day for 40 years. Former smoker. TECHNIQUE: LOW DOSE CT LUNG SCREENING Coronal and Sagittal reconstruction series were provided. One or more dose reduction techniques were used (e.g., Automated exposure control, adjustment of the mA and/or kV according to patient size, use of iterative reconstruction technique). REFERENCE LINK: [facility] Lung-RADS RADIATION DOSE SUMMARY: CTDlvol: 3.02 mGy DLP: 107.97 mGycm COMPARISON: Prior study dated November 15, 2023. FINDINGS: PULMONARY NODULES: (Only nodules >3mm are reported) Nodules described below are on series 1 unless otherwise specified. Pulmonary Nodules: Essentially unchanged noncalcified nodule in the medial right upper lobe. Hardware:None Lymph Nodes:Small mediastinal lymph nodes. Heart and Vasculature:Coronary artery calcifications are noted. Coronary Artery Calcifications: Present Lungs and Airways: Mild emphysematous changes are present. Pleura:No evidence of pleural effusion. Upper Abdomen:Unremarkable Bones:Degenerative changes of the thoracic spine. CT/Low Dose CT Lung Screening IMPRESSION: Stable examination. Coronary artery calcification (CAC) is is present Lung-RADS Category: 2 BENIGN (BASED ON IMAGING FEATURES OR INDOLENT BEHAVIOR). RECOMMEND 12-MONTH SCREENING LDCT. Other Significant Findings: None. Reading Location: [id number]
== END | disposition home or self-care (01) ==
LOC: CT 12:39
PROVIDERS: PCP Family Medicine; Referring Provider Nurse Practitioner Acute Care; Visit Provider Nurse Practitioner Acute Care
DX: R91.1 Solitary pulmonary nodule (principal); F17.210 Nicotine dependence, cigarettes, uncomplicated
CPT/HCPCS: 71271

== ENCOUNTER 2025-01-19 15:33 | Emergency (ER) | payer MEDICARE, MEDICAID, SELFPAY ==
[2025-01-19 15:33] VITALS: BP 126/67; PULSE 74; RESP 18; TEMP 36.5; O2SAT 94; BMI 28.0
--- NOTE | 2025-01-19 16:25 | RAD_ITS ---
PROCEDURE: LUMBAR SPINE 2 OR 3 VIEWS 01/19/2025 REASON FOR EXAM: PAIN TECHNIQUE: LUMBAR SPINE 2 OR 3 VIEWS FINDINGS: Vertebrae: Heights are intact. No significant endplate spondylosis. Discs: Heights are maintained. No significant degenerative disc disease. Alignment: AP alignment shows normal lumbar lordosis. Other: No acute process. RAD/Lumbar Spine 2 or 3 Views IMPRESSION: No acute process detected. Reading Location: [facility]
--- NOTE | 2025-01-19 16:26 | EDS_ITS ---
HPI History of Present Illness Chief Complaint: Back Narrative Narrative: 69-year-old female presents with right-sided back pain that she experienced 4 to 5 days ago. She is she states that she was just standing and felt a pop in her back. She now has pain when she tries to bend or twist her torso/trunk. She denies any red flag signs for cauda equina. No fevers or chills, no nausea or vomiting. No saddle anesthesia, no radiation down the leg. She has been taking Tylenol without relief. She states that the pain has been increasing in her right lower back. No dysuria or hematuria or other symptoms. [facility] Medical History Osteoporosis Kidney stones Kidney disease GERD (gastroesophageal reflux disease) Myocardial infarct Internal impingement of right shoulder Hypothyroidism Abnormal Holter monitor finding Sinus pause Mixed hyperlipidemia Atherosclerotic heart disease of [place] coronary artery without angina pectoris Essential hypertension Traumatic avulsion of nail plate of toe Thigh pain History of IBS Wears glasses Wears dentures Depression Anxiety Skin tear Bruising Thyroid disease Ambulates with cane History of renal disease Arthritis High cholesterol Easy bruising Restless legs Difficulty swallowing Difficulty chewing History of hiatal hernia Gastric reflux Former smoker Shortness of breath on exertion Stroke/cerebrovascular accident History of echocardiogram History of stress test History of heart attack History of irregular heartbeat Acute seasonal allergic rhinitis Acute serous otitis media Acute dysfunction of both eustachian tubes Fuchs' corneal dystrophy HTN (hypertension) COPD (chronic obstructive pulmonary disease) Bronchitis Constipation Abdominal pain Chest pain CAD (coronary artery disease) Hypoxia Diaphragm paralysis History of cerebrovascular disease History of CVA (cerebrovascular accident) Anxiety disorder Home Medications ?Medication ?Instructions ?Recorded ?Last Taken ?Type clopidogrel 75 mg tablet 75 mg PO DAILY BLOOD THINNER 30 06/08/22 09/29/24 Rx days #30 tabs atorvastatin 40 mg tablet 40 mg PO DAILY 07/01/2209/20 History losartan 25 mg tablet 25 mg PO DAILY #90 tabs 09/1809/29/24 Rx alendronate 70 mg tablet 70 mg PO Q7D 08/14/23 History cholecalciferol (vitamin D3) 125 125 mcg PO DAILY 07/2709/29/24 History mcg (5,000 unit) tablet citalopram 10 mg tablet 10 mg PO DAILY 08/14/2309/20 History montelukast 10 mg tablet 10 mg PO DAILY 12/01/2309/20 History multivitamin (One Daily 1 tab PO DAILY 01/16/2409/20 History Multivitamin tablet) ondansetron 4 mg disintegrating 4 mg PO Q8H PRN PRN Na usea #10 tabs 07/31/24 Unknown Rx tablet levothyroxine 75 mcg tablet 75 mcg PO DAILY 09/30/24 0 09/29/24 History pantoprazole 40 mg tablet,delayed 40 mg PO DAILY 09/3009/29/24 History release levocetirizine 5 mg tablet 5 mg PO DAILY ALLERGIES #90 tabs 10/16/24 Unknown Rx (Allergy Relief (levocetirizine)) albuterol sulfate 90 mcg/actuation 2 puff inhalation Q 6H PRN 10/28/24 Unknown Rx aerosol inhaler Shortness Of Breath #3 ea fluticasone fur. 200 mcg-umeclid 1 inh inhalation TONY Y #60 ea 01/06/25 Unknown Rx 62.5 mcg-vilant 25 mcg inhalat.powder (Trelegy Ellipta) naproxen 500 mg tablet 500 mg PO BID PRN #20 tabs 0 01/19/25 Unknown Rx oxycodone 5 mg tablet 5 mg PO Q6H PRN pain 3 days #12 01/19/25 Unknown Rx tabs Allergy/AdvReac Type Severity Reaction Status Date / Time hydrocodone bitartrate (From Allergy HALLUCINATE Verified 01/19/25 15:33 Vicodin) S piperacillin (From Zosyn) Allergy Hives Verified 01/19/25 15:33 tazobactam (From Zosyn) Allergy Hives Verified 01/19/25 15:33 vancomycin Allergy Rash Verified 01/19/25 15:33 fish derived AdvReac Anaphylaxis Verified 01/19/25 15:33 morphine AdvReac HALLUCINATE Verified 01/19/25 15:33 S Family History Mother Diabetes Heart disease Hypertension High cholesterol Father Heart disease Hypertension High cholesterol CVA (cerebral vascular accident) Surgical History History of right breast biopsy History of surgery on lower extremity History of bilateral cataract extraction History of shoulder surgery History of tubal ligation Social History household members: significant other housing: apartment pets and animals: Yes pets and animals: dog(s) Smoking Status: Former smoker quit date: 10/28/19 pack-years: 25 Tobacco: How many years used: 25 second hand exposure: Yes alcohol intake: never substance use type: does not use caffeine: Yes Type: coffee Number of servings: 1 ROS ROS ED ROS Narrative Review of systems positive for right-sided low back pain/lumbar pain. No fevers or chills, no nausea or vomiting, no radiation down the leg, no saddle anesthesia. No loss of bowel or bladder. EXAM Physical Exam Narrative Exam Narrative: Afebrile. Vital signs noted. Nontoxic-appearing. Cardiovascular examination of is a regular rate and rhythm. Lungs are clear to auscultation bilaterally. Abdomen is soft and nontender with positive bowel sounds. Positive tenderness to palpation right paraspinal musculature. No vertebral point tenderness or bony step-off. Neurovasc intact bilateral lower extremities. EHL intact bilateral lower extremities. Const Vital Signs: 01/19/25 15:33 Temperature 97.7 F L Temperature Source Oral Pulse Rate 74 Respiratory Rate 18 Blood Pressure 126/67 H Blood Pressure Mean 86 Pulse Ox 94 Oxygen Delivery Method Room Air MDM MDM MDM Narrative Medical decision making narrative: Differential diagnosis includes but not limited to musculoskeletal back pain/lumbosacral strain versus cauda equina versus lumbar radiculopathy. History and physical does not support either of the latter 2 diagnoses as she is not having any radiation of her pain, and there are no red flag signs. I had a lengthy discussion with the patient and her . Although she states she hallucinates with hydrocodone codon and morphine, she has tolerated oxycodone previously. She was given 1 tablet of naproxen and 1 of 5 mg oxycodone. X-rays will be obtained to rule out any vertebral fracture. Lumbar x-rays interpreted by myself independently show no evidence of acute fracture. I reviewed the radiology report which confirms my independent interpretation. Upon repeat examination she is feeling mildly improved. At this point in time, if this can be discharged to follow-up with her primary care provider. She was written a prescription for short course of oxycodone to take for breakthrough pain and for naproxen. I do feel muscle relaxers are best left to her primary care provider if need be. She was told she may need PT/OT and other outpatient imaging. Return instructions to the emergency department were reviewed. Disposition is discharged home in stable condition. History & Record Review Discussion w/independent historian: Patient and Family Radiography X-Ray: LS SPine, Read by ED Physician, Read by Radiologist and No Fracture Diagnostic Testing: Clinical Impression(s) from Imaging Studies Lumbar Spine X-Ray 01/19/25 16:25 IMPRESSION: No acute process detected. Reading [facility] Discharge Plan Triage Chief Complaint: Back ED Provider: Naif Jackson Dx/Rx/DC Orders Clinical Impression: Lumbosacral strain, Acute back pain Instructions: ED Back Exercises, Lumbar, ED Back Pain (Acute or Chronic), ED Back Sprain/Strain Prescriptions: New naproxen 500 mg tablet 500 mg PO BID PRN Qty: 20 0RF oxycodone 5 mg tablet 5 mg PO Q6H PRN (Reason: pain) 3 Days Qty: 12 0RF No Action atorvastatin 40 mg tablet 40 mg PO DAILY losartan 25 mg tablet 25 mg PO DAILY Qty: 90 3RF montelukast 10 mg tablet 10 mg PO DAILY clopidogrel 75 MG tablet 75 mg PO DAILY 30 Days Qty: 30 0RF alendronate 70 mg tablet 70 mg PO Q7D Patient Comments: PLEASE SEE ATTACHED FOR DETAILED DIRECTIONS citalopram 10 mg tablet 10 mg PO DAILY cholecalciferol (vitamin D3) 125 mcg (5,000 unit) tablet 125 mcg PO DAILY multivitamin [One Daily Multivitamin] Tablet 1 tab PO DAILY ondansetron 4 mg tablet,disintegrating 4 mg PO Q8H PRN PRN (Reason: Nausea) Qty: 10 0RF levothyroxine 75 mcg tablet 75 mcg PO DAILY pantoprazole 40 mg tablet,delayed release (DR/EC) 40 mg PO DAILY levocetirizine [Allergy Relief (levocetirizin)] 5 mg tablet 5 mg PO DAILY Qty: 90 3RF albuterol sulfate 90 mcg/actuation HFA aerosol inhaler 2 puff inhalation Q6H PRN (Reason: Shortness Of Breath) Qty: 3 3RF Trelegy Ellipta 200-62.5-25 mcg blister with device 1 inh inhalation DAILY Qty: 60 6RF Primary Care Provider: Bird Ronquillo Referrals: Bird Ronquillo MD [Primary Care Provider] - 3-5 Days if not improving Activity Restrictions/Additional Instructions: Medication as directed. Follow-up with your primary care provider. You may require physical therapy/Occupational Therapy and other outpatient imaging. Print Language: Romansh Disposition Disposition: Home, Self Care
--- OUTSIDE RECORDS SUMMARY | 2025-01-19 16:44 | XMS RPT_ITS | CCD ---
Author Organization [facility] Care Team Providers Care Professor Of German Name Role Phone [facility], Danae Patel Primary Care Pro vider [facility], [place] Gregoriorockingham Referring Provid er KAMINI Pathak Attending Provider Nurse, Surgery Attending Provider Unavailable Dr. Arslan Love Attending Provider [facility], [place] Jorge Primary Care Pro vider [facility], [place] Jorge Referring Provid er KAMINI Pathak Attending Provider Friend, Dr. Madison Attending Provider Friend, Dr. Madison Referring Provider Friend, Dr. Madison Other Provider Clinic, [place] Jorge Primary Care Provider Un available Jovanni Garcia Unavailable [facility], [place] Jorge Primary Care Pro vider [facility], [place] Christicelesteman Referring Provid er [facility], [place] Gregorioman Primary Care Pro vider [facility], [place] Christizman Referring Provid er Dr. Bina Walter Emergency Provider Dr. Rupal Gannon Admit Provider Dr. Rupal Gannon Other Provider Dr. Jose Kent Other Provider Dr. Lj De Santiago Other Provider Loco RANGEL, LEHR OPERATOR-C Yamile Attending Provider Jovanni Garcia Unavailable [facility], [facility] Primary Care Provider Un available Jovanni Garcia Unavailable [facility], [facility] Primary Care Pro vider Jim LEHR OPERATOR, LEHR OPERATOR-C Vanessa Attending Provider JUAN CARLOS Aguilar-Kira Sanon Referring Provider [phone] [facility], [facility] Referring Provid er [facility], [facility] Primary Care Provider Un available Jovanni Garcia Unavailable Dr. Cole Bran Attending Provider Dr. Eduardo Ely Emergency Provider Dr. Rupal Gannon Admit Provider Dr. Rupal Gannon Other Provider Dr. Lashawn Ellington Attending Provider Dr. Lashawn Ellington Other Provider [facility], [facility] Primary Care Pro vider Jim LEHR OPERATOR, LEHR OPERATOR-C Vanessa Attending Provider Dr. Marsha Vaughn Attending Provider Dr. Marsha Vaughn Referring Provider Laura Lacey Attending Provider Unavailable Dr. Ramesh Sanabria Attending Provider [facility], [facility] Primary Care Pro vider [facility], [facility] Referring Provid er MD Giuseppe Mireles Attending Provider [facility], [facility] Primary Care Pro vider Dr. Marsha Vaughn Attending Provider Dr. Marsha Vaughn Referring Provider [phone] Dr. Cole Bran Attending Provider Dr. Eduardo Ely Emergency Provider Dr. Rupal Gannon Admit Provider Dr. Rupal Gannon Other Provider Dr. Lashawn Ellington Attending Provider Dr. Lashawn Ellington Other Provider Laura Lacey Attending Provider Unavailable [facility], [facility] Referring Provid er Dr. Ramesh Sanabria Attending Provider MD Giuseppe Mireles Attending Provider [facility], [facility] Primary Care Pro vider [facility], [facility] Referring Provid er Dr. Arslan Love Attending Provider [phone] Yfn SUÁREZ, [place] Laura Shlel Attending Provider [facility], [facility] Primary Care Pro vider [facility], [facility] Referring Provid er Tatiana Ronquillo MD Primary Care Provider [facility], [facility] Referring Provid er Jim LEHR OPERATOR, LEHR OPERATOR-C Vanessa Attending Provider [phone] Dr. Bird Ronquillo Primary Care Provider Dr. Bird Ronquillo Primary Care Provider Dr. Bird Ronquillo Referring Provider Dr. Arslan Love Attending Provider Tatiana Ronquillo MD Primary Care Provider [facility] Un available TATIANA RONQUILLO Primary Care Unavailab SABINE Morrison Referring Unavailable TATIANA RONQUILLO Primary Care Unavailab SABINE Morrison Referring Unavailable TATIANA RONQUILLO Primary Care Unavailab TATIANA Cade Primary Care Unavailab PHOEBE Rod Attending Unavailable TATIANA RONQUILLO Primary Care Unavailab raul LVAmintaLADYLLUVIA YAMILE Referring Unavaila ble Podlogar SHELL PLATER.Shavonne PETTIT Unavailable [phone] No Known Problems Sister No Known Problems Sister No Known Problems Brother Diabetes Maternal Grandmother other (hypoglycemia [Other]) Other Maternal Side other (Ovarian Cyst [Other]) Other Maternal Side, sisters Coronary Artery Disease No Family History Hypertension No Family History Blood Clots No Family History DVT No Family History Factor 5 Leiden No Family History Blood Disease No Family History Systemic Lupus Erythematosus No Family History Multiple Sclerosis No Family History Bipolar disorder No Family History Schizophrenia No Family History Aneurysm No Family History COPD No Family History Patient Allergies ALLERGIES Allergen Reactions Fish Swelling, Shortness of Breath Morphine Mental Status Change, Other: See Comments Vicodin [Hydrocodon* Vomiting Aggrenox [Aspirin-D* Other: See Comments Headache Hydrocodone Bitartr* Other: See Comments Current Medications Current Outpatient Medications on File Prior to Visit Medication Sig citalopram hydrobromide (CELEXA) 10 mg tablet Take 1 tablet by mouth once daily. cholecalciferol (VITAMIN D3) 5,000 unit tab Take 1 tablet by mouth once daily. pantoprazole DR (PROTONIX) 40 mg tablet Take 1 tablet by mouth once daily. 30 minutes before eating. levothyroxine (SYNTHROID) 75 mcg tablet Take 1 tablet by mouth once daily. clopidogrel (PLAVIX) 75 mg tablet Take 1 tablet by mouth once daily. montelukast (SINGULAIR) 10 mg tablet Take 1 tablet by mouth daily at bedtime. losartan (COZAAR) 25 mg tablet Take 1 tablet by mouth once daily. TRELEGY ELLIPTA 200-62.5-25 mcg inhalation powder Inhale 1 Puff as instructed once daily. atorvastatin (LIPITOR) 40 mg tablet Take 1 tablet by mouth daily at bedtime. For cholesterol. alendronate (FOSAMAX) 70 mg tablet Take 1 tablet by mouth one time a week. Take with a full glass of water, on an empty stomach; do NOT lie down for 30minutes. MOTION SICKNESS RELIEF,MECLIZ, 25 mg chewable tablet(s) Take 1 tablet by mouth three times a day as needed for dizziness. citalopram hydrobromide (CELEXA) 10 mg tablet Take 1 tablet by mouth once daily. alendronate (FOSAMAX) 70 mg tablet Take 1 tablet by mouth one time a week. Take with a full glass of water, on an empty stomach; do NOT lie down for 30minutes. albuterol HFA (PROVENTIL HFA, VENTOLIN HFA) 90 mcg/actuation inhaler inhale 2 puffs by mouth every 6 hours as needed for shortness of breath levocetirizine 5 mg tablet Take 5 mg by mouth once daily. No current facility-administered medications on file prior to visit. Social History Social History Tobacco Use Smoking status: Former Current packs/day: 0.00 Average packs/day: 1.5 packs/day for 42.0 years (63.0 ttl pk-yrs) Types: Cigarettes Start date: 07/27/1978 Quit date: 07/27/2020 Years since quittin.9 Smokeless tobacco: Never Tobacco comments: d/c 07/27/2020 Vaping Use Vaping status: Never Used Substance Use Topics Alcohol use: No Drug use: No REVIEW OF SYSTEMS: as above Reviewed relevant PMHx, PSHx, Social Hx, current medications and allergies. Review of Symptoms REVIEW OF SYSTEMS See HPI. EXAM: BP 119/71 (BP Site: Left Arm, BP Position: Sitting, BP Cuff Size: Regular Adult) Pulse 80 Temp (!) 38.2 C (100.7 F) Resp 16 SpO2 93% General Appearance: Well appearing, alert, in no acute distress, well-hydrated, well nourished.. Ears: External ears normal, canals clear. Oropharynx: Lips, mucosa, and tongue normal, teeth and gums normal, oropharynx normal. Lungs: Lungs clear to auscultation. No wheezing, rhonchi, rales.. Heart: RRR without murmur, gallop, or rubs. No ectopy. Health Maintenance List Shingrix Vaccine(2 of 2) due on 05/26/2020 Mammogram Screening due on 02/24/2024 Lung Cancer Screening due on 03/14/2024 Advance Directive Discussion Never done RSV Vaccine(1 - Risk 60-74 years 1-dose series) due on 07/26/2024 Spirometry due on 10/24/2024 Influenza Vaccine(1) due on 11/25/2024 Covid-19 Vaccine( - season) due on 04/29/2025 DTaP,Tdap,Td Vaccine(1 - Tdap) due on 07/11/2025 Serum Creatinine due on 04/29/2025 Annual PCP Team Chronic Disease Visit due on 07/11/2025 BP Controlled (<130/80) due on 07/11/2025 Diabetes Screening due on 04/29/2027 Lipid Screening due on 04/29/2029 Colorectal Cancer Screening due on 09/03/2033 Bone Density Screening Completed Pneumococcal Vaccine: 50+ Completed Alpha-1 Antitrypsin Deficiency Screening Discontinued Cervical Cancer Screening Discontinued Hepatitis C Screening Discontinued ASSESSMENT/PLAN: 1. URI, acute - ICD9: 465.9, ICD10: J06.9 - Discussed viral etiology and rationale for treatment. - Symptomatic treatment with prn analgesia - Supportive care with fluids and rest - Follow up in 3-5 days if symptoms persist or sooner if worsening of symptoms - COVID & INFLUENZA A/B & RSV PCR, ROUTINE Rest, increase fluids and use mucinex /OTC analgesia. Plan to give Tamiflu if positive influenza result. Tatianna Friend Attending Note I have personally performed a face to face assessment of the patient and have reviewed the ELI note. My bloom findings include: Exam is normal Assessment/Plan are as above. Other additions or changes: As edited Signature: Moraima Solano Date: 07/11/2024 Time: 12:25 PM Prescription instructions reviewed with patient as applicable. Potential red flag symptoms discussed with the patient. Reviewed appropriate action plan to take if red flag symptoms occur. Patient agreeable to treatment plan. Moraima Pope APRN.CNP [id number] [place] [address] documented in this encounter [facility] 07-11-2024 Note HNO ID: [id number] Author: MORAIMA SOLANO APRN.CNP Service: ? Author Type: Nurse Practitioner Type: Progress Notes Filed: 07/11/2024 12:25 Note Text: Chief Complaint Patient presents with: congestion, runny nose, fatigue, headaches , chills and fat: Started yesterday HPI Temitope Haddad is a 69 year old female who presents here today for Above Complaints. Temitope is an established patient of Dr. Shima MD. Concerns today... Illness --- Cough started today, reports it is dry non-productive. Reports a headache, congestion, body aches, and chills that started last night on 07/10/24. States her throat hurts when she coughs, and reports post-nasal drainage. Has tried tylenol for headache and hot tea with honey for her throat with minimal relief. No other concerns or complaints. Past medical history, appointments, medications, allergies reviewed. Previous Medical History PAST MEDICAL HISTORY Diagnosis Date Abdominal pain, right lower quadrant Benign neoplasm of colon Chronic kidney disease (CKD), stage III (moderate) ([facility]) COPD (chronic obstructive pulmonary disease) ([facility]) Dr. Wallace Depression Dysuria Generalized anxiety disorder GERD (gastroesophageal reflux disease) Heme positive stool 07/28/2023 EGD and colonoscopy negative for bleed Hiatal hernia 09/09/2023 moderate History of colonic polyps History of tobacco use HTN (hypertension) Hyperlipemia Hypothyroidism Impaired fasting blood sugar Left leg pain Leiomyoma of uterus, unspecified very mild changes seen on sono Lung nodules 03/30/2023 Patient requesting to f/u with pulm for repeat imaging. Osteopenia 02/13/2023 Seasonal allergies Skin graft hematoma Left leg, managed by plastic surgery Stroke ([facility]) x 4 Suprapubic pain Vitamin D deficiency Previous Surgical History PAST SURGICAL HISTORY Procedure Laterality Date BREAST BIOPSY 05/29/1997 (L) breast biopsy- Dr. Logan COLONOSCOPY 2021 Dr. Barakat-1 polyp removed COLONOSCOPY FLX DX W/COLLJ SPEC WHEN PFRMD 10/17/2012 Colonoscopy ESOPHAGOGASTRODUODENOSCOPY TRANSORAL DIAGNOSTIC 10/17/2012 EGD LIG/TRNSXJ FLP TUBE ABDL/VAG APPR UNI/BI 05/29/1982 PAST SURGICAL HISTORY OF left shoulder manipulation PAST SURGICAL HISTORY OF Left skin graft of left upper leg REMV CATARACT EXTRACAP,INSERT LENS Bilateral 2013, 2014 SURGICAL ARTHROSCOPY ADAN W/CORACOACRM LIGM RLS 09/10/2013 Left shoulder arthroscopic Sub AC decompression Family History FAMILY HISTORY Problem Relation Age of Onset other (ulcers in colon [Other]) Mother Thyroid Mother Dementia Mother other (TIA [Other]) Father other (Heart problems [Other]) Father Stroke Father Heart Attack Father Alzheimer's Disease Father Parkinson?s Disease Father No Known Problems Sister No Known Problems Sister No Known Problems Sister No Known Problems Sister No Known Problems Brother Diabetes Maternal Grandmother other (hypoglycemia [Other]) Other Maternal Side other (Ovarian Cyst [Other]) Other Maternal Side, sisters Coronary Artery Disease No Family History Hypertension No Family History Blood Clots No Family History DVT No Family History Factor 5 Leiden No Family History Blood Disease No Family History Systemic Lupus Erythematosus No Family History Multiple Sclerosis No Family History Bipolar disorder No Family History Schizophrenia No Family History Aneurysm No Family History COPD No Family History Patient Allergies ALLERGIES Allergen Reactions Fish Swelling, Shortness of Breath Morphine Mental Status Change, Other: See Comments Vicodin [Hydrocodon* Vomiting Aggrenox [Aspirin-D* Other: See Comments Headache Hydrocodone Bitartr* Other: See Comments Current Medications Current Outpatient Medications on File Prior to Visit Medication Sig citalopram hydrobromide (CELEXA) 10 mg tablet Take 1 tablet by mouth once daily. cholecalciferol (VITAMIN D3) 5,000 unit tab Take 1 tablet by mouth once daily. pantoprazole DR (PROTONIX) 40 mg tablet Take 1 tablet by mouth once daily. 30 minutes before eating. levothyroxine (SYNTHROID) 75 mcg tablet Take 1 tablet by mouth once daily. clopidogrel (PLAVIX) 75 mg tablet Take 1 tablet by mouth once daily. montelukast (SINGULAIR) 10 mg tablet Take 1 tablet by mouth daily at bedtime. losartan (COZAAR) 25 mg tablet Take 1 tablet by mouth once daily. TRELEGY ELLIPTA 200-62.5-25 mcg inhalation powder Inhale 1 Puff as instructed once daily. atorvastatin (LIPITOR) 40 mg tablet Take 1 tablet by mouth daily at bedtime. For cholesterol. alendronate (FOSAMAX) 70 mg tablet Take 1 tablet by mouth one time a week. Take with a full glass of water, on an empty stomach; do NOT lie down for 30minutes. MOTION SICKNESS RELIEF,MECLIZ, 25 mg chewable tablet(s) Take 1 tablet by mouth three times a day as needed for dizziness. citalopram hydrobromide (CELEXA) 10 mg tablet Take 1 tablet by mouth once daily (more content not included)... [facility] 07-02-2024 History of Present illness Narrative Program_ID:[id number] Access Code: [email or web address] URL: [email or web address] Date: 07-02-2024 Prepared By: Vanessa Gaffney Program Notes Exercises - Gastroc Stretch on Wall - 2 x daily - 7 x weekly - 1 sets - 3 reps - Seated Hamstring Stretch - 2 x daily - 7 x weekly - 1 sets - 3 reps - Standing Hip Abduction with Counter Support - 1 x daily - 7 x weekly - 2 sets - 15 reps - Standing Hip Extension with Counter Support - 1 x daily - 7 x weekly - 2 sets - 15 reps - Standing Knee Flexion AROM with Chair Support - 1 x daily - 7 x weekly - 2 sets - 15 reps Images from the original note were not included. Episode Visit Count: 6 Therapist That Will Accept/Oversee The Plan Of Care: Yamile Cordero Start of Care Date: 05/16/24 Onset Date: 01/28/24 Plan of Care Certification Date: 05/16/24 Next Certification Due Date: 07/15/24 REHABILITATION AND SPORTS THERAPY PHYSICAL THERAPY DISCONTINUANCE OF CARE PLAN OF CARE UPDATE: Assessment: Temitope Haddad is discontinued from Physical Therapy services due to goal achievement.. Patient was seen for 6 visits from Start of Care Date: 05/16/24 to 07/02/2024 and treatment included: Therapeutic exercise and Neuromuscular re-education. Goals for Episode of Care: established 05/16/24 Goals updated on 06/05/2024 Goals updated on 07/02/2024. Pershing in home exercise program. -- MET Patient will decrease pain to 3/10 at rest to allow patient to improve ambulation. -- MET Patient will increase active ROM of R knee ext by 5 degrees to allow pt to to improve gait mechanics / gait pattern . -- MET Patient will demonstrate increase in R LE strength to 5/5 during manual muscle testing in order to improve function for light functional tasks. -- MET Patient will improve 5 time sit to stand to demonstrate improvement in functional lower extremity strength. -- MET Patient Goals: Get my knee to work. -- MET SUBJECTIVE: Denies pain. Eager to lose weight, has a goal of 150 pounds. All things are going well, only gets SOB due to COPD.. Patient Goals: Get my knee to work. Pain: Pain Pain Level: 0 Pain Location: Knee - Right Description: Aching PROMIS Scales 06/05/2024 10/02/2023 03/01/2023 Higher is Better Phys Func - T Score 57 (within normal limits) 61 (within normal limits) 47 (within normal limits) Phys Func - Percentile 76 86 38 Self-Eff Symptom - T Score 50 (Average) 69 (High) 58 (Average) Self-Eff Symptom - Percentile 50 97 79 03/01/2023 Lower is Better Pain Interference - T Score 58 (mild) Pain Interference - Percentile 21 T-scores: mean of general population = 50. 5 points is clinically meaningfully difference Percentiles provide an indication of how the patient's score ranks in relation to the general population. Higher percentile rankings indicate better function/quality of life. 50th percentile is the average of the general population and indicates half of respondents had a worse score. OBJECTIVE MEASURES WITH LEVEL OF FUNCTION: LE AROM L Knee Extension: -2 Degrees LE Strength L Knee Extension (L3): 5/5 Functional Performance Test Results 5 Times Sit to Stand Test : 13 sec TREATMENT: Therapeutic Exercise: 1: upright scifit bike, seat 7, level 2, 5 min, 1:1 throughout, subjective collected 5 min 2: seated LAQ 2x12 RLE 3: 5x sit to stand 13 sec, no UE support 4: staggar stance BUE support at // bars heel raises 3x12 5: BUE support at // bars single heel raises 3x5 each LE Skilled Intervention: Patient was educated in proper exercise technique and purpose for exercises. Skilled judgment was used in selection of appropriate interventions. Provided written instruction for home exercise program to facilitate proper performance and compliance. Correct performance of therapeutic exercises was facilitated with verbal, visual, and tactile cuing. Educated patient on rationale for performing exercises in regards to decreasing fatigue , increase ease of ADL, and ROM and function . Patient education as noted. Neuromuscular Re-Education: 1: tandem fwd 10x no UE support 2: reverse tandem walking 10x no UE support 3: SLS firm surface x1 finger tip support at // bars 3x60 sec each side Skilled Intervention: Skilled judgment used to assess appropriate program for balance and coordination activity. Education in proprioceptive/kinesthetic awareness during dynamic activities. Ensured patient safety with use of // bars within reach. Patient education as noted. Billing Therapeutic Exercise Treatment Minutes: 15 Neuromuscular Re-Education Treatment Minutes: 15 Skilled Treatment Time Minutes (timed and untimed codes): 30 Total Session Time (minutes): 30 Session Start Time : 1408 Session Stop Time : 1438 Yamile Cordero PT documented in this encounter [facility] 07-02-2024 Note HNO ID: [id number] Author: YAMILE CORDERO PT Service: ? Author Type: Physical Therapist Type: Progress Notes Filed: 07/02/2024 14:41 Note Text: Episode Visit Count: 6 Therapist That Will Accept/Oversee The Plan Of Care: Yamile Cordero Start of Care Date: 05/16/24 Onset Date: 01/28/24 Plan of Care Certification Date: 05/16/24 Next Certification Due Date: 07/15/24 REHABILITATION AND SPORTS THERAPY PHYSICAL THERAPY DISCONTINUANCE OF CARE PLAN OF CARE UPDATE: Assessment: Temitope Haddad is discontinued from Physical Therapy services due to goal achievement.. Patient was seen for 6 visits from Start of Care Date: 05/16/24 to 07/02/2024 and treatment included: Therapeutic exercise and Neuromuscular re-education. Goals for Episode of Care: established 05/16/24 Goals updated on 06/05/2024 Goals updated on 07/02/2024. Pershing in home exercise program. -- MET Patient will decrease pain to 3/10 at rest to allow patient to improve ambulation. -- MET Patient will increase active ROM of R knee ext by 5 degrees to allow pt to to improve gait mechanics / gait pattern . -- MET Patient will demonstrate increase in R LE strength to 5/5 during manual muscle testing in order to improve function for light functional tasks. -- MET Patient will improve 5 time sit to stand to demonstrate improvement in functional lower extremity strength. -- MET Patient Goals: Get my knee to work. -- MET SUBJECTIVE: Denies pain. Eager to lose weight, has a goal of 150 pounds. All things are going well, only gets SOB due to COPD.. Patient Goals: Get my knee to work. Pain: Pain Pain Level: 0 Pain Location: Knee - Right Description: Aching PROMIS Scales 06/05/2024 10/02/2023 03/01/2023 Higher is Better Phys Func - T Score 57 (within normal limits) 61 (within normal limits) 47 (within normal limits) Phys Func - Percentile 76 86 38 Self-Eff Symptom - T Score 50 (Average) 69 (High) 58 (Average) Self-Eff Symptom - Percentile 50 97 79 03/01/2023 Lower is Better Pain Interference - T Score 58 (mild) Pain Interference - Percentile 21 T-scores: mean of general population = 50. 5 points is clinically meaningfully difference Percentiles provide an indication of how the patient's score ranks in relation to the general population. Higher percentile rankings indicate better function/quality of life. 50th percentile is the average of the general population and indicates half of respondents had a worse score. OBJECTIVE MEASURES WITH LEVEL OF FUNCTION: LE AROM L Knee Extension: -2 Degrees LE Strength L Knee Extension (L3): 5/5 Functional Performance Test Results 5 Times Sit to Stand Test : 13 sec TREATMENT: Therapeutic Exercise: 1: upright scifit bike, seat 7, level 2, 5 min, 1:1 throughout, subjective collected 5 min 2: seated LAQ 2x12 RLE 3: 5x sit to stand 13 sec, no UE support 4: staggar stance BUE support at // bars heel raises 3x12 5: BUE support at // bars single heel raises 3x5 each LE Skilled Intervention: Patient was educated in proper exercise technique and purpose for exercises. Skilled judgment was used in selection of appropriate interventions. Provided written instruction for home exercise program to facilitate proper performance and compliance. Correct performance of therapeutic exercises was facilitated with verbal, visual, and tactile cuing. Educated patient on rationale for performing exercises in regards to decreasing fatigue , increase ease of ADL, and ROM and function . Patient education as noted. Neuromuscular Re-Education: 1: tandem fwd 10x no UE support 2: reverse tandem walking 10x no UE support 3: SLS firm surface x1 finger tip support at // bars 3x60 sec each side Skilled Intervention: Skilled judgment used to assess appropriate program for balance and coordination activity. Education in proprioceptive/kinesthetic awareness during dynamic activities. Ensured patient safety with use of // bars within reach. Patient education as noted. Billing Therapeutic Exercise Treatment Minutes: 15 Neuromuscular Re-Education Treatment Minutes: 15 Skilled Treatment Time Minutes (timed and untimed codes): 30 Total Session Time (minutes): 30 Session Start Time : 1408 Session Stop Time : 1438 Yamile Cordero PT [facility] 2024 History of Present illness Narrative Program_ID:[id number] Access Code: [email or web address] URL: [email or web address] Date: 2024 Prepared By: Vanessa Gaffney Program Notes Exercises - Gastroc Stretch on Wall - 2 x daily - 7 x weekly - 1 sets - 3 reps - Seated Hamstring Stretch - 2 x daily - 7 x weekly - 1 sets - 3 reps - Standing Hip Abduction with Counter Support - 1 x daily - 7 x weekly - 2 sets - 15 reps - Standing Hip Extension with Counter Support - 1 x daily - 7 x weekly - 2 sets - 15 reps - Standing Knee Flexion AROM with Chair Support - 1 x daily - 7 x weekly - 2 sets - 15 reps Episode Visit Count: 5 Therapist That Will Accept/Oversee The Plan Of Care: Yamile Cordero Start of Care Date: 05/16/24 Onset Date: 01/28/24 Plan of Care Certification Date: 05/16/24 Next Certification Due Date: 07/15/24 REHABILITATION AND SPORTS THERAPY PHYSICAL THERAPY TREATMENT NOTE ASSESSMENT: Temitope Haddad tolerated the session with decreased symptoms. She demonstrated difficulty with reports of tightness with prostretch soleus stretching which may be contributing to her symptoms. The patient will continue to benefit from ongoing skilled physical therapy to progress toward set goals. PLAN FOR NEXT VISIT: assess symptom response to standing hip strengthening SUBJECTIVE: Pt. reports no pain. Continues to do yoga movements without difficullthy. Patient Goals: Get my knee to work. Functional Limitations: walking in the house, standing, stair negotiation, rising from a chair Pain: Pain Pain Level: 0 Pain Location: Knee - Right Description: Aching Frequency: At rest Post Treatment Pain Post Treatment Pain Level: No Change OBJECTIVE MEASURES WITH LEVEL OF FUNCTION: TREATMENT: Therapeutic Exercise: 1: scifit seat 13, level 2, 5 min, 1:1 throughout, subjective collected 5 min 2: TRX 4x12 mini squats 3: prostretch soleus stretch 5x15 sec each side in // bars 4: standing in // bars without UE support 1x15 heel raises 5: standing in // bars stagger stance without UE support 1x15 heel raises each LE anterior 6: standing hip abd 2x15 each LE 7: standing hip extension 2x15 each LE Skilled Intervention: Patient was educated in proper exercise technique and purpose for exercises. Skilled judgment was used in selection of appropriate interventions. Provided written instruction for home exercise program to facilitate proper performance and compliance. Correct performance of therapeutic exercises was facilitated with verbal, visual, and tactile cuing. Educated patient on rationale for performing exercises in regards to decreasing fatigue , including balance, increase ease of ADL, and ROM and function . Patient education as noted. Neuromuscular Re-Education: 1: tandem stance 3x30 sec each LE anterior (moderate sway, intermediate x1UE assist needed at // bars) 2: SLS on firm surface, EO, x1 finger support at // bars 3x30 sec each side 3: romberg on foam surface, EC, 3x30 sec Skilled Intervention: Skilled judgment used to assess appropriate program for balance and coordination activity. Education in proprioceptive/kinesthetic awareness during static balance activities. Correct performance of home program was facilitated with verbal, visual, and tactile cueing. Patient education as noted. Billing Therapeutic Exercise Treatment Minutes: 25 Neuromuscular Re-Education Treatment Minutes: 15 Skilled Treatment Time Minutes (timed and untimed codes): 40 Total Session Time (minutes): 40 Session Start Time : 1450 Session Stop Time : 1530 Yamile Cordero PT documented in this encounter [facility] 2024 Note HNO ID: [id number] Author: YAMILE CORDERO PT Service: ? Author Type: Physical Therapist Type: Progress Notes Filed: 2024 15:31 Note Text: Episode Visit Count: 5 Therapist That Will Accept/Oversee The Plan Of Care: Yamile Cordero Start of Care Date: 05/16/24 Onset Date: 01/28/24 Plan of Care Certification Date: 05/16/24 Next Certification Due Date: 07/15/24 REHABILITATION AND SPORTS THERAPY PHYSICAL THERAPY TREATMENT NOTE ASSESSMENT: Temitope Haddad tolerated the session with decreased symptoms. She demonstrated difficulty with reports of tightness with prostretch soleus stretching which may be contributing to her symptoms. The patient will continue to benefit from ongoing skilled physical therapy to progress toward set goals. PLAN FOR NEXT VISIT: assess symptom response to standing hip strengthening SUBJECTIVE: Pt. reports no pain. Continues to do yoga movements without difficullthy. Patient Goals: Get my knee to work. Functional Limitations: walking in the house, standing, stair negotiation, rising from a chair Pain: Pain Pain Level: 0 Pain Location: Knee - Right Description: Aching Frequency: At rest Post Treatment Pain Post Treatment Pain Level: No Change OBJECTIVE MEASURES WITH LEVEL OF FUNCTION: TREATMENT: Therapeutic Exercise: 1: scifit seat 13, level 2, 5 min, 1:1 throughout, subjective collected 5 min 2: TRX 4x12 mini squats 3: prostretch soleus stretch 5x15 sec each side in // bars 4: standing in // bars without UE support 1x15 heel raises 5: standing in // bars stagger stance without UE support 1x15 heel raises each LE anterior 6: standing hip abd 2x15 each LE 7: standing hip extension 2x15 each LE Skilled Intervention: Patient was educated in proper exercise technique and purpose for exercises. Skilled judgment was used in selection of appropriate interventions. Provided written instruction for home exercise program to facilitate proper performance and compliance. Correct performance of therapeutic exercises was facilitated with verbal, visual, and tactile cuing. Educated patient on rationale for performing exercises in regards to decreasing fatigue , including balance, increase ease of ADL, and ROM and function . Patient education as noted. Neuromuscular Re-Education: 1: tandem stance 3x30 sec each LE anterior (moderate sway, intermediate x1UE assist needed at // bars) 2: SLS on firm surface, EO, x1 finger support at // bars 3x30 sec each side 3: romberg on foam surface, EC, 3x30 sec Skilled Intervention: Skilled judgment used to assess appropriate program for balance and coordination activity. Education in proprioceptive/kinesthetic awareness during static balance activities. Correct performance of home program was facilitated with verbal, visual, and tactile cueing. Patient education as noted. Billing Therapeutic Exercise Treatment Minutes: 25 Neuromuscular Re-Education Treatment Minutes: 15 Skilled Treatment Time Minutes (timed and untimed codes): 40 Total Session Time (minutes): 40 Session Start Time : 1450 Session Stop Time : 1530 Yamile Cordero PT [facility] 06-18-2024 History of Present illness Narrative Program_ID:[id number] Access Code: [email or web address] URL: [email or web address] Date: 06-18-2024 Prepared By: Vanessa Gaffney Program Notes Exercises - Gastroc Stretch on Wall - 2 x daily - 7 x weekly - 1 sets - 3 reps - Seated Hamstring Stretch - 2 x daily - 7 x weekly - 1 sets - 3 reps - Supine Knee Extension Strengthening - 2 x daily - 7 x weekly - 3 sets - 8 reps Episode Visit Count: 4 Therapist That Will Accept/Oversee The Plan Of Care: Yamile Cordero Start of Care Date: 05/16/24 Onset Date: 01/28/24 Plan of Care Certification Date: 05/16/24 Next Certification Due Date: 07/15/24 REHABILITATION AND SPORTS THERAPY PHYSICAL THERAPY TREATMENT NOTE ASSESSMENT: Temitope Haddad tolerated the session with decreased symptoms. She demonstrated difficulty with lateral step ups on BOSU ball but did not require any UE support to complete with the exception of 1-2x LOB with PT assist. . The patient will continue to benefit from ongoing skilled physical therapy to progress toward set goals. PLAN FOR NEXT VISIT: add hip ER and abd strengthening to HEP SUBJECTIVE: Pt. says she feels ok, denies falls since last visit. She has been doing yoga to help her knees and this has been effective. Patient Goals: Get my knee to work. Functional Limitations: walking in the house, standing, stair negotiation, rising from a chair Pain: Pain Pain Level: 0 Pain Location: Knee - Right Description: Aching Frequency: At rest Post Treatment Pain Post Treatment Pain Level: No Change OBJECTIVE MEASURES WITH LEVEL OF FUNCTION: TREATMENT: Therapeutic Exercise: 1: scifit seat 13, level 2, 5 min, 1:1 throughout, subjective collected 5 min 2: supine SAQ 3x8 each LE 3: attempted SLR each LE dc due to cramping and hip pain 4: supine B hip add 2x15 ball between the knees 5: SL clamshells 2x15 eac hside Skilled Intervention: Patient was educated in proper exercise technique and purpose for exercises. Skilled judgment was used in selection of appropriate interventions. Provided written instruction for home exercise program to facilitate proper performance and compliance. Correct performance of therapeutic exercises was facilitated with verbal, visual, and tactile cuing. Educated patient on rationale for performing exercises in regards to decreasing fatigue , increase ease of ADL, and ROM and function . Patient education as noted. Neuromuscular Re-Education: 1: step ups BOSU ball x2 finger tip contact at // bars 2x12 each LE lead 2: step ups BOSU ball x2 finger tip contact at // bars 2x12 each LE lead 3: step ups lateral BOSU ball 2x20 alternating no UE support 4: SLS hip ABC A-Z each LE (x1 UE support at // bars) Skilled Intervention: Skilled judgment used to assess appropriate program for balance and coordination activity. Education in proprioceptive/kinesthetic awareness during dynamic activities. Ensured patient safety with use of // bars and gait belt. Correct performance of home program was facilitated with verbal, visual, and tactile cueing. Billing Therapeutic Exercise Treatment Minutes: 25 Neuromuscular Re-Education Treatment Minutes: 15 Skilled Treatment Time Minutes (timed and untimed codes): 40 Total Session Time (minutes): 40 Session Start Time : 1427 Session Stop Time : 1507 Yamile Cordero PT documented in this encounter [facility] 06-18-2024 Note HNO ID: [id number] Author: YAMILE CORDERO PT Service: ? Author Type: Physical Therapist Type: Progress Notes Filed: 06/18/2024 15:11 Note Text: Episode Visit Count: 4 Therapist That Will Accept/Oversee The Plan Of Care: Yamile Cordero Start of Care Date: 05/16/24 Onset Date: 01/28/24 Plan of Care Certification Date: 05/16/24 Next Certification Due Date: 07/15/24 REHABILITATION AND SPORTS THERAPY PHYSICAL THERAPY TREATMENT NOTE ASSESSMENT: Temitope Haddad tolerated the session with decreased symptoms. She demonstrated difficulty with lateral step ups on BOSU ball but did not require any UE support to complete with the exception of 1-2x LOB with PT assist. . The patient will continue to benefit from ongoing skilled physical therapy to progress toward set goals. PLAN FOR NEXT VISIT: add hip ER and abd strengthening to HEP SUBJECTIVE: Pt. says she feels ok, denies falls since last visit. She has been doing yoga to help her knees and this has been effective. Patient Goals: Get my knee to work. Functional Limitations: walking in the house, standing, stair negotiation, rising from a chair Pain: Pain Pain Level: 0 Pain Location: Knee - Right Description: Aching Frequency: At rest Post Treatment Pain Post Treatment Pain Level: No Change OBJECTIVE MEASURES WITH LEVEL OF FUNCTION: TREATMENT: Therapeutic Exercise: 1: scifit seat 13, level 2, 5 min, 1:1 throughout, subjective collected 5 min 2: supine SAQ 3x8 each LE 3: attempted SLR each LE dc due to cramping and hip pain 4: supine B hip add 2x15 ball between the knees 5: SL clamshells 2x15 eac hside Skilled Intervention: Patient was educated in proper exercise technique and purpose for exercises. Skilled judgment was used in selection of appropriate interventions. Provided written instruction for home exercise program to facilitate proper performance and compliance. Correct performance of therapeutic exercises was facilitated with verbal, visual, and tactile cuing. Educated patient on rationale for performing exercises in regards to decreasing fatigue , increase ease of ADL, and ROM and function . Patient education as noted. Neuromuscular Re-Education: 1: step ups BOSU ball x2 finger tip contact at // bars 2x12 each LE lead 2: step ups BOSU ball x2 finger tip contact at // bars 2x12 each LE lead 3: step ups lateral BOSU ball 2x20 alternating no UE support 4: SLS hip ABC A-Z each LE (x1 UE support at // bars) Skilled Intervention: Skilled judgment used to assess appropriate program for balance and coordination activity. Education in proprioceptive/kinesthetic awareness during dynamic activities. Ensured patient safety with use of // bars and gait belt. Correct performance of home program was facilitated with verbal, visual, and tactile cueing. Billing Therapeutic Exercise Treatment Minutes: 25 Neuromuscular Re-Education Treatment Minutes: 15 Skilled Treatment Time Minutes (timed and untimed codes): 40 Total Session Time (minutes): 40 Session Start Time : 1427 Session Stop Time : 1507 Yamile Cordero, PT [facility] 06-11-2024 Note HNO ID: [id number] Author: YAMILE CORDERO, PT Service: ? Author Type: Physical Therapist Type: Progress Notes Filed: 06/11/2024 15:17 Note Text: Episode Visit Count: 3 Therapist That Will Accept/Oversee The Plan Of Care: Yamile Cordero Start of Care Date: 05/16/24 Onset Date: 01/28/24 Plan of Care Certification Date: 05/16/24 Next Certification Due Date: 07/15/24 REHABILITATION AND SPORTS THERAPY PHYSICAL THERAPY TREATMENT NOTE ASSESSMENT: Temitope Haddad tolerated the session with increased symptoms. She demonstrated difficulty with BOSU ball step ups without UE support requiring Wiliam to modAx1 but pt. Requires no assistance with x1 UE support. The patient will continue to benefit from ongoing skilled physical therapy . PLAN FOR NEXT VISIT: continue balance and functional strengthening SUBJECTIVE: Generalized pain throughout her body due to the cold weather. Patient Goals: Get my knee to work. Functional Limitations: walking in the house, standing, stair negotiation, rising from a chair Pain: Pain Pain Level: 4 Pain Location: Knee - Right Description: Aching Frequency: At rest Post Treatment Pain Post Treatment Pain Level: No Change OBJECTIVE MEASURES WITH LEVEL OF FUNCTION: TREATMENT: Therapeutic Exercise: 1: scifit seat 13, level 2, 5 min, 1:1 throughout, subjective collected 5 min 2: sit <> stand slowly with return to sit 3x5 no UE support Skilled Intervention: Patient was educated in proper exercise technique and purpose for exercises. Skilled judgment was used in selection of appropriate interventions. Provided written instruction for home exercise program to facilitate proper performance and compliance. Correct performance of therapeutic exercises was facilitated with verbal, visual, and tactile cuing. Educated patient on rationale for performing exercises in regards to decreasing fatigue , including balance, increase ease of ADL, and ROM and function . Patient education as noted. Neuromuscular Re-Education: 1: step up BOSU ball 1x12 each LE with BUE at // bars 2: step up BOSU ball 1x12 each LE with x1 UE at // bars 3: step up BOSU ball 1x12 each LE with x0 UE at // bars (Wiliam to modA LOB 1x with PT recovery without fall) 4: box stepping over x4 6 hurdles 6x CW and 6x CCW no UE support 5: lateral step over 6x6 hurdles no UE support 6: tilt board taps fwd and lateral 60 sec each , 2 sets each without UE support Skilled Intervention: Skilled judgment used to assess appropriate program for balance and coordination activity. Education in proprioceptive/kinesthetic awareness during standing and dynamic activities. Reviewed and educated patient on additions/changes for home program as noted above with an (*). Patient education as noted. Billing Therapeutic Exercise Treatment Minutes: 10 Neuromuscular Re-Education Treatment Minutes: 30 Skilled Treatment Time Minutes (timed and untimed codes): 40 Total Session Time (minutes): 40 Session Start Time : 1436 Session Stop Time : 1516 Yamile Cordero, PT [facility] 06-11-2024 History of Present illness Narrative Episode Visit Count: 3 Therapist That Will Accept/Oversee The Plan Of Care: Yamile Cordero Start of Care Date: 05/16/24 Onset Date: 01/28/24 Plan of Care Certification Date: 05/16/24 Next Certification Due Date: 07/15/24 REHABILITATION AND SPORTS THERAPY PHYSICAL THERAPY TREATMENT NOTE ASSESSMENT: Temitope Haddad tolerated the session with increased symptoms. She demonstrated difficulty with BOSU ball step ups without UE support requiring Wiliam to modAx1 but pt. Requires no assistance with x1 UE support. The patient will continue to benefit from ongoing skilled physical therapy . PLAN FOR NEXT VISIT: continue balance and functional strengthening SUBJECTIVE: Generalized pain throughout her body due to the cold weather. Patient Goals: Get my knee to work. Functional Limitations: walking in the house, standing, stair negotiation, rising from a chair Pain: Pain Pain Level: 4 Pain Location: Knee - Right Description: Aching Frequency: At rest Post Treatment Pain Post Treatment Pain Level: No Change OBJECTIVE MEASURES WITH LEVEL OF FUNCTION: TREATMENT: Therapeutic Exercise: 1: scifit seat 13, level 2, 5 min, 1:1 throughout, subjective collected 5 min 2: sit <> stand slowly with return to sit 3x5 no UE support Skilled Intervention: Patient was educated in proper exercise technique and purpose for exercises. Skilled judgment was used in selection of appropriate interventions. Provided written instruction for home exercise program to facilitate proper performance and compliance. Correct performance of therapeutic exercises was facilitated with verbal, visual, and tactile cuing. Educated patient on rationale for performing exercises in regards to decreasing fatigue , including balance, increase ease of ADL, and ROM and function . Patient education as noted. Neuromuscular Re-Education: 1: step up BOSU ball 1x12 each LE with BUE at // bars 2: step up BOSU ball 1x12 each LE with x1 UE at // bars 3: step up BOSU ball 1x12 each LE with x0 UE at // bars (Wiliam to modA LOB 1x with PT recovery without fall) 4: box stepping over x4 6 hurdles 6x CW and 6x CCW no UE support 5: lateral step over 6x6 hurdles no UE support 6: tilt board taps fwd and lateral 60 sec each , 2 sets each without UE support Skilled Intervention: Skilled judgment used to assess appropriate program for balance and coordination activity. Education in proprioceptive/kinesthetic awareness during standing and dynamic activities. Reviewed and educated patient on additions/changes for home program as noted above with an (*). Patient education as noted. Billing Therapeutic Exercise Treatment Minutes: 10 Neuromuscular Re-Education Treatment Minutes: 30 Skilled Treatment Time Minutes (timed and untimed codes): 40 Total Session Time (minutes): 40 Session Start Time : 1436 Session Stop Time : 1516 Yamile Cordero PT documented in this encounter [facility] 06-06-2024 Telephone encounter Note The patient has been identified by name and date of : Yes Caregiver verified no other encounters exist for this prescription request: Yes Caregiver confirmed with patient/requestor that no other refills are due, in the near future, with this provider at this time: Yes The last office visit in the department: 05/20/2024 Does the patient have a future office visit with this provider/department: Yes 11/18/2024 Requested Prescriptions Pending Prescriptions Disp Refills cholecalciferol (VITAMIN D3) 5,000 unit tab 90 tablet 1 Sig: Take 1 tablet by mouth once daily. Gerda Ziegler LPN June 06, 2024 3:04 PM = [facility] 06-06-2024 Miscellaneous Notes The patient has been identified by name and date of : Yes Caregiver verified no other encounters exist for this prescription request: Yes Caregiver confirmed with patient/requestor that no other refills are due, in the near future, with this provider at this time: Yes The last office visit in the department: 05/20/2024 Does the patient have a future office visit with this provider/department: Yes 11/18/2024 Requested Prescriptions Pending Prescriptions Disp Refills cholecalciferol (VITAMIN D3) 5,000 unit tab 90 tablet 1 Sig: Take 1 tablet by mouth once daily. Gerda Ziegler LPN June 06, 2024 3:04 PM = documented in this encounter [facility] 06-05-2024 History of Present illness Narrative Program_ID:[id number] Access Code: [email or web address] URL: [email or web address] Date: 06-05-2024 Prepared By: Vanessa Gaffney Program Notes Exercises - Gastroc Stretch on Wall - 2 x daily - 7 x weekly - 1 sets - 3 reps - Seated Hamstring Stretch - 2 x daily - 7 x weekly - 1 sets - 3 reps - Supine Knee Extension Strengthening - 2 x daily - 7 x weekly - 3 sets - 8 reps Episode Visit Count: 2 Therapist That Will Accept/Oversee The Plan Of Care: Yamile Cordero Start of Care Date: 05/16/24 Onset Date: 01/28/24 Plan of Care Certification Date: 05/16/24 Next Certification Due Date: 07/15/24 REHABILITATION AND SPORTS THERAPY PHYSICAL THERAPY RE-EVALUATION PLAN OF CARE UPDATE: Assessment: Temitope Haddad demonstrates R quadriceps weakness. The patient has progressed toward goals. Patient continues to present with impairments in ADL's, balance, flexibility, gait, independence in exercise, joint mobility, overall function, range of motion, strength, symptom management, and tissue tenderness that interfere with walking in the house, standing, stair negotiation, rising from a chair . Current prognosis is Fair due to: multiple co- morbidities, chronic nature of impairments . The patient will benefit from continued skilled therapy services to meet the updated goals for this plan of care as noted below. Goals for Episode of Care: established 05/16/24 Goals updated on 06/05/2024. Pershing in home exercise program. -- PROGRESSING Patient will decrease pain to 3/10 at rest to allow patient to improve ambulation. -- PROGRESSING Patient will increase active ROM of R knee ext by 5 degrees to allow pt to to improve gait mechanics / gait pattern . -- PROGRESSING Patient will demonstrate increase in R LE strength to 5/5 during manual muscle testing in order to improve function for light functional tasks. -- PROGRESSING Patient will improve 5 time sit to stand to demonstrate improvement in functional lower extremity strength. -- PROGRESSING Patient Goals: Get my knee to work. -- PROGRESSING Time Frame for Goals and Treatment : 07/15/24 Patient Goals: Get my knee to work. Planned Interventions, Frequency, and Duration: 1x/week, 8 weeks Total Number of Visits Planned: 8 Patient to be seen for Therapeutic exercise (90231), Neuromuscular re-education (16688), Manual therapy (80171), Therapeutic activities (11574), Self-mcfp management (06526), Gait Training (78439), Patient/Family/Caregiver Education PLAN FOR NEXT VISIT: continue quadriceps strengthening SUBJECTIVE: Transfer from [place]. Pt. presents with SC. Pt. fell 4x each year. Most recent fall february 2024. Has R medial knee pain. Rolling of the R ankle. She falls without warning. Has been using a SC for a couple mo. Compliant with HEP and reports R knee pain with SLR. 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 Patient Goals: Get my knee to work. Functional Limitations: walking in the house, standing, stair negotiation, rising from a chair Pain: Pain Pain Level: 5 Pain Location: Knee - Right Description: Aching Frequency: At rest Post Treatment Pain Post Treatment Pain Level: No Change PROMIS Scales 06/05/2024 10/02/2023 03/01/2023 Higher is Better Phys Func - Score 57 (within normal limits) 61 (within normal limits) 47 (within normal limits) Phys Func - Percentile 76 86 38 Self-Eff Symptom - Score 50 (Average) 69 (High) 58 (Average) Self-Eff Symptom - Percentile 50 97 79 T-scores: mean of general population = 50. 5 points is clinically meaningfully difference Percentiles provide an indication of how the patient's score ranks in relation to the general population. Higher percentile rankings indicate better function/quality of life. 50th percentile is the average of the general population and indicates half of respondents had a worse score. OBJECTIVE MEASURES WITH LEVEL OF FUNCTION: TREATMENT: Therapeutic Exercise: 1: scifit seat 13, level 2, 5 min, 1:1 throughout, subjective collected 5 min 2: *supine SAQ 3x8, slow tempo 3: hook lying B hip add with ball between knees 2x12 each side 4: seated LAQ 2x12 each side 5: seated HS stretch 3x30 sec each side Skilled Intervention: Patient was educated in proper exercise technique and purpose for exercises. Skilled judgment was used in selection of appropriate interventions. Provided written instruction for home exercise program to facilitate proper performance and compliance. Correct performance of therapeutic exercises was facilitated with verbal, visual, and tactile cuing. Educated patient on rationale for performing exercises in regards to decreasing fatigue , increase ease of ADL, and ROM and function \. Patient education as noted. Billing Therapeutic Exercise Treatment Minutes: 42 Skilled Treatment Time Minutes (timed and untimed codes): 42 Total Session Time (minutes): 42 Session Start Time : 1455 Session Stop Time : 1537 Yamile Cordero PT documented in this encounter [facility] 06-05-2024 Note HNO ID: [id number] Author: YAMILE CORDERO PT Service: ? Author Type: Physical Therapist Type: Progress Notes Filed: 06/05/2024 15:39 Note Text: Episode Visit Count: 2 Therapist That Will Accept/Oversee The Plan Of Care: Yamile Cordero Start of Care Date: 05/16/24 Onset Date: 01/28/24 Plan of Care Certification Date: 05/16/24 Next Certification Due Date: 07/15/24 REHABILITATION AND SPORTS THERAPY PHYSICAL THERAPY RE-EVALUATION PLAN OF CARE UPDATE: Assessment: Temitope Haddad demonstrates R quadriceps weakness. The patient has progressed toward goals. Patient continues to present with impairments in ADL's, balance, flexibility, gait, independence in exercise, joint mobility, overall function, range of motion, strength, symptom management, and tissue tenderness that interfere with walking in the house, standing, stair negotiation, rising from a chair . Current prognosis is Fair due to: multiple co- morbidities, chronic nature of impairments . The patient will benefit from continued skilled therapy services to meet the updated goals for this plan of care as noted below. Goals for Episode of Care: established 05/16/24 Goals updated on 06/05/2024. Pershing in home exercise program. -- PROGRESSING Patient will decrease pain to 3/10 at rest to allow patient to improve ambulation. -- PROGRESSING Patient will increase active ROM of R knee ext by 5 degrees to allow pt to to improve gait mechanics / gait pattern . -- PROGRESSING Patient will demonstrate increase in R LE strength to 5/5 during manual muscle testing in order to improve function for light functional tasks. -- PROGRESSING Patient will improve 5 time sit to stand to demonstrate improvement in functional lower extremity strength. -- PROGRESSING Patient Goals: Get my knee to work. -- PROGRESSING Time Frame for Goals and Treatment : 07/15/24 Patient Goals: Get my knee to work. Planned Interventions, Frequency, and Duration: 1x/week, 8 weeks Total Number of Visits Planned: 8 Patient to be seen for Therapeutic exercise (37007), Neuromuscular re-education (67392), Manual therapy (29407), Therapeutic activities (15123), Self-mcfp management (30358), Gait Training (48642), Patient/Family/Caregiver Education PLAN FOR NEXT VISIT: continue quadriceps strengthening SUBJECTIVE: Transfer from [place]. Pt. presents with SC. Pt. fell 4x each year. Most recent fall february 2024. Has R medial knee pain. Rolling of the R ankle. She falls without warning. Has been using a SC for a couple mo. Compliant with HEP and reports R knee pain with SLR. 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 Patient Goals: Get my knee to work. Functional Limitations: walking in the house, standing, stair negotiation, rising from a chair Pain: Pain Pain Level: 5 Pain Location: Knee - Right Description: Aching Frequency: At rest Post Treatment Pain Post Treatment Pain Level: No Change PROMIS Scales 06/05/2024 10/02/2023 03/01/2023 Higher is Better Phys Func - Score 57 (within normal limits) 61 (within normal limits) 47 (within normal limits) Phys Func - Percentile 76 86 38 Self-Eff Symptom - Score 50 (Average) 69 (High) 58 (Average) Self-Eff Symptom - Percentile 50 97 79 T-scores: mean of general population = 50. 5 points is clinically meaningfully difference Percentiles provide an indication of how the patient's score ranks in relation to the general population. Higher percentile rankings indicate better function/quality of life. 50th percentile is the average of the general population and indicates half of respondents had a worse score. OBJECTIVE MEASURES WITH LEVEL OF FUNCTION: TREATMENT: Therapeutic Exercise: 1: scifit seat 13, level 2, 5 min, 1:1 throughout, subjective collected 5 min 2: *supine SAQ 3x8, slow tempo 3: hook lying B hip add with ball between knees 2x12 each side 4: seated LAQ 2x12 each side 5: seated HS stretch 3x30 sec each side Skilled Intervention: Patient was educated in proper exercise technique and purpose for exercises. Skilled judgment was used in selection of appropriate interventions. Provided written instruction for home exercise program to facilitate proper performance and compliance. Correct performance of therapeutic exercises was facilitated with verbal, visual, and tactile cuing. Educated patient on rationale for performing exercises in regards to decreasing fatigue , increase ease of ADL, and ROM and function . Patient education as noted. Billing Therapeutic Exercise Treatment Minutes: 42 Skilled Treatment Time Minutes (timed and untimed codes): 42 Total Session Time (minutes): 42 Session Start Time : 1455 Session Stop Time : 1537 Yamile Cordero, PT [facility] 05-20-2024 Note HNO ID: [id number] Author: TATIANA RONQUILLO MD Service: ? Author Type: Physician Type: Progress Notes Filed: 05/20/2024 12:46 Note Text: Chief Complaint Patient presents with: Follow Up: Routine-patient takes OTC PPI (omeprazole she thinks)and asking about getting Rx for med. HPI Temitope Haddad is a 68 year old female who presents here today for Above Complaints. Patient requesting rx for 40 mg omeprazole for her history of GERD. Symptoms well controlled on OTC dosage, but has become too expensive. Without medication, can feel the reflux in the back of her throat. BP well controlled today on current regimen. Readings at home are similar to today. Taking higher dosage synthroid with recent high TSH. Asymptomatic on current regimen without changes on higher dosage. COPD: controlled on Trelegy with rare use of albuterol. Denies cough, wheezing, SOB. F/u with Dr. Wallace. Depression symptoms controlled on Celexa. Mammogram pending. Pulmonology will be ordering low dose CT chest for lung cancer screening. Past medical history, appointments, medications, allergies reviewed. Previous Medical History PAST MEDICAL HISTORY Diagnosis Date Abdominal pain, right lower quadrant Benign neoplasm of colon Chronic kidney disease (CKD), stage III (moderate) ([facility]) COPD (chronic obstructive pulmonary disease) ([facility]) Dr. Wallace Depression Dysuria Generalized anxiety disorder GERD (gastroesophageal reflux disease) Heme positive stool 07/28/2023 EGD and colonoscopy negative for bleed Hiatal hernia 09/09/2023 moderate History of colonic polyps History of tobacco use HTN (hypertension) Hyperlipemia Hypothyroidism Impaired fasting blood sugar Left leg pain Leiomyoma of uterus, unspecified very mild changes seen on sono Lung nodules 03/30/2023 Patient requesting to f/u with pulm for repeat imaging. 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 Logan COLONOSCOPY 2021 Dr. Barakat-1 polyp removed COLONOSCOPY FLX DX W/COLLJ SPEC WHEN PFRMD 10/17/2012 Colonoscopy ESOPHAGOGASTRODUODENOSCOPY TRANSORAL DIAGNOSTIC 10/17/2012 EGD LIG/TRNSXJ FLP TUBE ABDL/VAG APPR UNI/BI 05/29/1982 PAST SURGICAL HISTORY OF left shoulder manipulation PAST SURGICAL HISTORY OF Left skin graft of left upper leg REMV CATARACT EXTRACAP,INSERT LENS Bilateral 2013, 2014 SURGICAL ARTHROSCOPY ADAN W/CORACOACRM LIGM RLS 09/10/2013 Left shoulder arthroscopic Sub AC decompression Family History FAMILY HISTORY Problem Relation Age of Onset other (ulcers in colon [Other]) Mother Thyroid Mother Dementia Mother other (TIA [Other]) Father other (Heart problems [Other]) Father Stroke Father Heart Attack Father Alzheimer's Disease Father Parkinson?s Disease Father No Known Problems Sister No Known Problems Sister No Known Problems Sister No Known Problems Sister No Known Problems Brother Diabetes Maternal Grandmother other (hypoglycemia [Other]) Other Maternal Side other (Ovarian Cyst [Other]) Other Maternal Side, sisters Coronary Artery Disease No Family History Hypertension No Family History Blood Clots No Family History DVT No Family History Factor 5 Leiden No Family History Blood Disease No Family History Systemic Lupus Erythematosus No Family History Multiple Sclerosis No Family History Bipolar disorder No Family History Schizophrenia No Family History Aneurysm No Family History COPD No Family History Patient Allergies ALLERGIES Allergen Reactions Fish Swelling, Shortness of Breath Morphine Mental Status Change, Other: See Comments Vicodin [Hydrocodon* Vomiting Aggrenox [Aspirin-D* Other: See Comments Headache Hydrocodone Bitartr* Other: See Comments Current Medications Current Outpatient Medications on File Prior to Visit Medication Sig levothyroxine (SYNTHROID) 75 mcg tablet Take 1 tablet by mouth once daily. clopidogrel (PLAVIX) 75 mg tablet Take 1 tablet by mouth once daily. montelukast (SINGULAIR) 10 mg tablet Take 1 tablet by mouth daily at bedtime. losartan (COZAAR) 25 mg tablet Take 1 tablet by mouth once daily. ciprofloxacin HCl (CIPRO) 500 mg tablet Take 500 mg by mouth two times a day. metroNIDAZOLE (FLAGYL) 500 mg tablet Take 500 mg by mouth three times a day. TRELEGY ELLIPTA 200-62.5-25 mcg inhalation powder Inhale 1 Puff as instructed once daily. atorvastatin (LIPITOR) 40 mg tablet Take 1 tablet by mouth daily at bedtime. For cholesterol. cholecalciferol (VITAMIN D3) 5,000 unit tab Take 1 tablet by mouth once daily. alendronate (FOSAMAX) 70 mg tablet Take 1 tablet by mouth one time a week. Take with a full glass of water, on an empty stomach; do NOT lie down for 30m (more content not included)... [facility] 05-20-2024 History of Present illness Narrative Chief Complaint Patient presents with: Follow Up: Routine-patient takes OTC PPI (omeprazole she thinks)and asking about getting Rx for med. HPI Temitope Haddad is a 68 year old female who presents here today for Above Complaints. Patient requesting rx for 40 mg omeprazole for her history of GERD. Symptoms well controlled on OTC dosage, but has become too expensive. Without medication, can feel the reflux in the back of her throat. BP well controlled today on current regimen. Readings at home are similar to today. Taking higher dosage synthroid with recent high TSH. Asymptomatic on current regimen without changes on higher dosage. COPD: controlled on Trelegy with rare use of albuterol. Denies cough, wheezing, SOB. F/u with Dr. Wallace. Depression symptoms controlled on Celexa. Mammogram pending. Pulmonology will be ordering low dose CT chest for lung cancer screening. Past medical history, appointments, medications, allergies reviewed. Previous Medical History PAST MEDICAL HISTORY Diagnosis Date Abdominal pain, right lower quadrant Benign neoplasm of colon Chronic kidney disease (CKD), stage III (moderate) ([facility]) COPD (chronic obstructive pulmonary disease) ([facility]) Dr. Wallace Depression Dysuria Generalized anxiety disorder GERD (gastroesophageal reflux disease) Heme positive stool 07/28/2023 EGD and colonoscopy negative for bleed Hiatal hernia 09/09/2023 moderate History of colonic polyps History of tobacco use HTN (hypertension) Hyperlipemia Hypothyroidism Impaired fasting blood sugar Left leg pain Leiomyoma of uterus, unspecified very mild changes seen on sono Lung nodules 03/30/2023 Patient requesting to f/u with pulm for repeat imaging. 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 Logan COLONOSCOPY 2021 Dr. Barakat-1 polyp removed COLONOSCOPY FLX DX W/COLLJ SPEC WHEN PFRMD 10/17/2012 Colonoscopy ESOPHAGOGASTRODUODENOSCOPY TRANSORAL DIAGNOSTIC 10/17/2012 EGD LIG/TRNSXJ FLP TUBE ABDL/VAG APPR UNI/BI 05/29/1982 PAST SURGICAL HISTORY OF left shoulder manipulation PAST SURGICAL HISTORY OF Left skin graft of left upper leg REMV CATARACT EXTRACAP,INSERT LENS Bilateral 2013, 2014 SURGICAL ARTHROSCOPY ADAN W/CORACOACRM LIGM RLS 09/10/2013 Left shoulder arthroscopic Sub AC decompression Family History FAMILY HISTORY Problem Relation Age of Onset other (ulcers in colon [Other]) Mother Thyroid Mother Dementia Mother other (TIA [Other]) Father other (Heart problems [Other]) Father Stroke Father Heart Attack Father Alzheimer's Disease Father Parkinson s Disease Father No Known Problems Sister No Known Problems Sister No Known Problems Sister No Known Problems Sister No Known Problems Brother Diabetes Maternal Grandmother other (hypoglycemia [Other]) Other Maternal Side other (Ovarian Cyst [Other]) Other Maternal Side, sisters Coronary Artery Disease No Family History Hypertension No Family History Blood Clots No Family History DVT No Family History Factor 5 Leiden No Family History Blood Disease No Family History Systemic Lupus Erythematosus No Family History Multiple Sclerosis No Family History Bipolar disorder No Family History Schizophrenia No Family History Aneurysm No Family History COPD No Family History Patient Allergies ALLERGIES Allergen Reactions Fish Swelling, Shortness of Breath Morphine Mental Status Change, Other: See Comments Vicodin [Hydrocodon* Vomiting Aggrenox [Aspirin-D* Other: See Comments Headache Hydrocodone Bitartr* Other: See Comments Current Medications Current Outpatient Medications on File Prior to Visit Medication Sig levothyroxine (SYNTHROID) 75 mcg tablet Take 1 tablet by mouth once daily. clopidogrel (PLAVIX) 75 mg tablet Take 1 tablet by mouth once daily. montelukast (SINGULAIR) 10 mg tablet Take 1 tablet by mouth daily at bedtime. losartan (COZAAR) 25 mg tablet Take 1 tablet by mouth once daily. ciprofloxacin HCl (CIPRO) 500 mg tablet Take 500 mg by mouth two times a day. metroNIDAZOLE (FLAGYL) 500 mg tablet Take 500 mg by mouth three times a day. TRELEGY ELLIPTA 200-62.5-25 mcg inhalation powder Inhale 1 Puff as instructed once daily. atorvastatin (LIPITOR) 40 mg tablet Take 1 tablet by mouth daily at bedtime. For cholesterol. cholecalciferol (VITAMIN D3) 5,000 unit tab Take 1 tablet by mouth once daily. alendronate (FOSAMAX) 70 mg tablet Take 1 tablet by mouth one time a week. Take with a full glass of water, on an empty stomach; do NOT lie down for 30minutes. MOTION SICKNESS RELIEF,MECLIZ, 25 mg chewable tablet(s) Take 1 tablet by mouth three times a day as needed for dizziness. albuterol HFA (PROVENTIL HFA, VENTOLIN HFA) 90 mcg/actuation inhaler inhale 2 puffs by mouth every 6 hours as needed for shortness of breath levocetirizine 5 mg tablet Take 5 mg by mouth once daily. citalopram hydrobromide (CELEXA) 10 mg tablet Take 1 tablet by mouth once daily. alendronate (FOSAMAX) 70 mg tablet Take 1 tablet by mouth one time a week. Take with a full glass of water, on an empty stomach; do NOT lie down for 30minutes. BREZTRI AEROSPHERE 160-9-4.8 mcg/actuation HFA aerosol inhaler Inhale 2 Puffs as instructed twice daily. No current facility-administered medications on file prior to visit. Social History Social History Tobacco Use Smoking status: Former Current packs/day: 0.00 Average packs/day: 1.5 packs/day for 42.0 years (63.0 ttl pk-yrs) Types: Cigarettes Start date: 07/27/1978 Quit date: 07/27/2020 Years since quittin.8 Smokeless tobacco: Never Tobacco comments: d/c 07/27/2020 Vaping Use Vaping status: Never Used Substance Use Topics Alcohol use: No Drug use: No Review of Symptoms REVIEW OF SYSTEMS GENERAL: No weight loss, malaise or fevers RESPIRATORY: Negative for cough, hemoptysis, wheezing, COPD, dyspnea or shortness of breath CARDIOVASCULAR: Negative for chest pain, leg swelling, hypertension, CHF or palpitations GI: No nausea, vomiting, or diarrhea SKIN: Negative for lesions, rash, and itching ENDOCRINE: Negative for cold or heat intolerance, polyuria, polydipsia and goiter EXAM: BP 128/72 Pulse 65 Resp 16 Wt 79.2 kg (174 lb 9.6 oz) SpO2 97% BMI 28.18 kg/m General Appearance: Well appearing, alert, in no acute distress, well-hydrated, well nourished.. Skin: Skin color, texture, turgor normal, no suspicious rashes or lesions. Lungs: Lungs clear to auscultation. No wheezing, rhonchi, rales.. Heart: RRR without murmur, gallop, or rubs. No ectopy. Abdomen: Normal abdominal exam, Abdomen soft, non-tender. Bowel sounds normal. No masses, organomegaly. Extremities: No deformities, edema, skin discoloration, clubbing or cyanosis. Good capillary refill. . Health Maintenance List BP Controlled (<130/80) Never done Advance Directive Discussion Never done Mammogram Screening due on 02/24/2024 Lung Cancer Screening due on 03/14/2024 DTaP,Tdap,Td Vaccine(1 - Tdap) due on 06/27/2024 Shingrix Vaccine(2 of 2) due on 06/27/2024 RSV Vaccine(1 - Risk 60-74 years 1-dose series) due on 07/26/2024 Spirometry due on 10/24/2024 Influenza Vaccine(1) due on 11/25/2024 Covid-19 Vaccine(3 - season) due on 04/29/2025 Annual PCP Team Chronic Disease Visit due on 04/29/2025 Serum Creatinine due on 04/29/2025 Diabetes Screening due on 04/29/2027 Lipid Screening due on 04/29/2029 Colorectal Cancer Screening due on 09/03/2033 Bone Density Screening Completed Pneumococcal Vaccine: 50+ Completed Alpha-1 Antitrypsin Deficiency Screening Discontinued Cervical Cancer Screening Discontinued Hepatitis C Screening Discontinued Data reviewed Latest Ref Rng 02/20/2024 04/29/2024 WBC 3.70 - 11.00 k/uL 6.67 RBC 3.90 - 5.20 m/uL 4.42 Hemoglobin 11.5 - 15.5 g/dL 13.3 Hematocrit 36.0 - 46.0 % 41.9 MCV 80.0 - 100.0 fL 94.8 MCH 26.0 - 34.0 pg 30.1 MCHC 30.5 - 36.0 g/dL 31.7 RDW-CV 11.5 - 15.0 % 14.5 Platelet Count 150 - 400 k/uL 219 MPV 9.0 - 12.7 fL 9.1 Neut% % 74.3 Abs Neut (ANC) 1.45 - 7.50 k/uL 4.95 Lymph% % 14.8 Abs Lymph 1.00 - 4.00 k/uL 0.99 (L) [place]% % 9.0 Abs [place] <0.87 k/uL 0.60 Eosin% % 1.2 Abs Eosin <0.46 k/uL 0.08 Baso% % 0.4 Abs Baso <0.11 k/uL 0.03 Immature Gran % % 0.3 IMMATURE GRANS (ABS) <0.10 k/uL <0.03 NRBC /100 WBC 0.0 Absolute nRBC <0.01 k/uL <0.01 DTYPE Auto Protein, Total 6.3 - 8.0 g/dL 6.8 7.0 Albumin 3.9 - 4.9 g/dL 3.7 (L) 4.5 Calcium 8.5 - 10.2 mg/dL 8.9 9.3 Bilirubin, Total 0.2 - 1.3 mg/dL 0.5 0.4 Alkaline Phosphatase 34 - 123 U/L 69 76 AST 13 - 35 U/L 101 (H) 33 ALT 7 - 38 U/L 164 (H) 41 (H) Glucose 74 - 99 mg/dL 106 (H) 99 BUN 7 - 21 mg/dL 7 15 Creatinine 0.58 - 0.96 mg/dL 1.07 (H) 0.94 Sodium 136 - 144 mmol/L 138 141 Potassium 3.7 - 5.1 mmol/L 3.9 4.2 Chloride 98 - 107 mmol/L 101 104 CO2 22 - 30 mmol/L 25 26 Anion Gap 8 - 15 mmol/L 12 11 eGFR >=60 mL/min/1.73m 57 (L) 67 Total Cholesterol, Nonfasting <200 mg/dL 164 Triglycerides, Nonfasting <150 mg/dL 64 HDL Cholesterol, Nonfasting >39 mg/dL 66 LDL Cholesterol, Nonfasting <100 mg/dL 85 Non HDL Cholesterol, Nonfasting <130 mg/dL 98 VLDL Cholesterol, Nonfasting <30 mg/dL 13 Total Chol/HDL Ratio, Nonfasting <5.10 mg/dL 2.48 LDL/HDL Ratio, Nonfasting <2.54 mg/dL 1.29 SARS-CoV-2 (Agent of COVID-19) RNA See comment Detected ! Influenza A RNA Not Detected Not detected Influenza B RNA Not Detected Not detected Respiratory syncytial virus (RSV) RNA Not Detected Not detected WSR 0 - 20 mm/hr 43 (H) CRP <0.9 mg/dL 1.2 (H) TSH 0.270 - 4.200 mIU/L 4.500 (H) Legend: (L) Low (H) High ! Abnormal ASSESSMENT/PLAN: 1. Gastroesophageal reflux disease without esophagitis - ICD9: 530.81, ICD10: K21.9 (primary diagnosis) - Begin treatment with Protonix due to Plavix interaction with omeprazole. Call if not controlled in 1-2 weeks. 2. Primary hypertension - ICD9: 401.9, ICD10: I10 - Controlled - Continue current medications - Recommend home blood pressure monitoring, to bring results to next visit - Encouraged sodium restriction, DASH or Mediterranean diet - Recommend regular aerobic exercise 3. Mixed hyperlipidemia - ICD9: 272.2, ICD10: E78.2 - Controlled - Continue current medications - Counseled on healthy diet and regular exercise 4. Acquired hypothyroidism - ICD9: 244.9, ICD10: E03.9 - Instructed patient on importance of taking on an empty stomach either first thing in the morning or at bedtime. - check TSH in 1-2 months - continue current dose of Synthroid 5. Elevated LFTs - ICD9: 790.6, ICD10: R79.89 Improved on recent labs. Will monitor. 6. Chronic obstructive pulmonary disease, unspecified COPD type (HCC) - ICD9: 496, ICD10: J44.9 Controlled on Trelegy. F/u with pulmonology. 7. Moderate recurrent major depression (HCC) - ICD9: 296.32, ICD10: F33.1 Controlled on current regimen. 8. Stage 3a chronic kidney disease (HCC) - ICD9: 585.3, ICD10: N18.31 - eGFR: 67 Improving - Counseled on avoiding NSAIDs, adequate hydration - Counseled on low sodium diet Tatiana Ronquillo MD documented in this encounter [facility] 05-16-2024 History of Present illness Narrative Program_ID:[id number] Access Code: [email or web address] URL: [email or web address] Date: 05-16-2024 Prepared By: Vanessa Gaffney Program Notes Exercises - Gastroc Stretch on Wall - 1 x daily - 7 x weekly - 1 sets - 3 reps - Supine Active Straight Leg Raise - 1 x daily - 7 x weekly - 1 sets - 10 reps - Seated Hamstring Stretch - 1 x daily - 7 x weekly - 1 sets - 3 reps Episode Visit Count: 1 Therapist That Will Accept/Oversee The Plan Of Care: Vanessa Gaffney Start of Care Date: 05/16/24 Onset Date: 01/28/24 Plan of Care Certification Date: 05/16/24 Next Certification Due Date: 07/15/24 Patient Identified by Name and Date of : Yes REHABILITATION AND SPORTS THERAPY PHYSICAL THERAPY EVALUATION PLAN OF CARE: Assessment: Temitope Haddad presents with chief complaint of R knee pain and weakness (hx of CVA in 2020) that interferes with walking in the house, standing, stair negotiation, rising from a chair . The patient presents with impairments in gait, independence in exercise, overall function, posture, range of motion, strength, symptom management, and tissue tenderness. Patient did not complete the PROMIS (Patient Reported Outcome Measures Information System). Prognosis for therapy is Fair due to: multiple co- morbidities, chronic nature of impairments . Patient transfer care to [facility] for the following reasons: Closer to home as does not appear to have neuro needs. The patient will benefit from skilled therapy services to meet the goals established for this plan of care as noted below. Goals for Episode of Care: established 05/16/24 Pershing in home exercise program. Patient will decrease pain to 3/10 at rest to allow patient to improve ambulation. Patient will increase active ROM of R knee ext by 5 degrees to allow pt to to improve gait mechanics / gait pattern . Patient will demonstrate increase in R LE strength to 5/5 during manual muscle testing in order to improve function for light functional tasks. Patient will improve 5 time sit to stand to demonstrate improvement in functional lower extremity strength. Patient Goals: Get my knee to work. Time Frame for Goals and Treatment : 07/15/24 Planned Interventions, Frequency, and Duration: Current Frequency: 1x/week Duration: 8 weeks Total Number of Visits Planned: 8 Planned Treatment Interventions: Therapeutic exercise (60601), Neuromuscular re-education (03493), Manual therapy (27548), Therapeutic activities (96827), Self-mcfp management (39697), Gait Training (33786), Patient/Family/Caregiver Education PLAN FOR NEXT VISIT: Transfer of care [place]. R LE strengthening and flexibility Patient demonstrates good understanding of plan of care and treatment. The above goals and plan of care were discussed and agreed upon by patient/family. Transfer of Care Due To: Closer to Home Patient transferring care to: [facility] SUBJECTIVE: Pt with R leg gives out. Takes her down to the ground. Knee pain in same knee. Falling about 2 x per month. Going on since Jan 2024. Using cane now (was using a whlie back for CVA). Issue getting worse. Patient Goals: Get my knee to work. Functional Limitations: walking in the house, standing, stair negotiation, rising from a chair Prior Level of Function: Independent without limitations Relevant History Past Relevant Medical Conditions: Cerebral Vascular Accident, Hypertension, Thyroid Disease, COPD, Vertigo, Kidney Problems Employment: Retired Recreation / Current Exercise: Was walking 3-4 miles. Now walking about 1 mile. Home Environment Patient Lives With: Spouse Home Type: Apt/Condo Entry To Home: No Stairs Laundry: 1st floor Equipment Owned: Cane, Crutch(es) Intake Information: Prescription present Previous Treatment: None Falls Interview: Two or more falls in the last year, Uses an assistive device Falls Intervention: More thorough falls assessment to be performed Pain: Pain Pain Level: 5 Pain Location: Knee - Right Description: Sharp, Stabbing Frequency: At rest Post Treatment Pain Post Treatment Pain Level: No Change PROMIS Scales 10/02/2023 03/01/2023 Higher is Better Phys Func - Score 61 (within normal limits) 47 (within normal limits) Phys Func - Percentile 86 38 Self-Eff Symptom - Score 69 (High) 58 (Average) Self-Eff Symptom - Percentile 97 79 T-scores: mean of general population = 50. 5 points is clinically meaningfully difference Percentiles provide an indication of how the patient's score ranks in relation to the general population. Higher percentile rankings indicate better function/quality of life. 50th percentile is the average of the general population and indicates half of respondents had a worse score. OBJECTIVE MEASURES WITH LEVEL OF FUNCTION: Cognition Cognition: Communication Deficits, Memory Deficits Vision Vision Deficits: Visual acuity deficit Posture / Alignment Posture: Rounded shoulders Knee Observations R Knee Palpation Tenderness: Lateral joint line, Iliotibial band, Medial Hamstring, Lateral Hamstring, Quadriceps, Medial joint line, Patellar tendon Sensation - Lower Extremity LE Light Touch Sensation: (Hypersensitivity R UE & LE) LE AROM R Knee Extension: -7 Degrees (medial knee pain) R Knee Flexion: 135 Degrees R Ankle Dorsiflexion: 15 Degrees (knee pain posterior) LE Strength R Hip Flexion (L2): 4/5 R Hip ABduction: 4/5 Mobility Sit To Stand: Supervision, Comments Sit To Stand Comments: Antalgic Gait Gait: Supervision Gait Device: Cane Gait Deviations: General Deviations General Deviations/Observations: Antalgic gait, Tiffany decreased, Step length decreased Gait Observation: using cane on improper side; corrected Functional Performance Test Results 5 Times Sit to Stand Test : 23.04 sec Education: Education Learning Preferences: Explanation Barriers: Cognitive Limitations Learning/educational needs: Home exercise program, Plan of Care, Gait Training Education Provided: Yes, see treatment interventions for education provided Education Provided To: Patient Education Mode/Type: Explanation/Discussion Response to Education/Teach Back: States/Identifies TREATMENT: PT Treatment Interventions: Therapeutic Exercise, Neuromuscular Re-Education Evaluation Therapeutic Exercise: 1: HEP issued, reviewed, and distributed to patient: hs stretch, calf stretch, SLR 2: Education: transfer of care process; focus of sessions Skilled Intervention: Proper selection of treatments for this session based on clinical presentation, deficits, and needs. Exercise handouts for new home exercises complied & distributed to patient. Education as above Neuromuscular Re-Education: 1: Outcomes 2: Education: POC; goals; use of cane on proper side including rationale Skilled Intervention: Proper implementation of objective outcomes with explanation of findings/deficits. Proper patient guarding to prevent falls/increase patient safety. Education as above Billing * Evaluation Moderate Complexity: 1 Unit Therapeutic Exercise Treatment Minutes: 5 Neuromuscular Re-Education Treatment Minutes: 8 Skilled Treatment Time Minutes (timed and untimed codes): 40 Total Session Time (minutes): 40 Session Start Time : 1450 Session Stop Time : 1530 Vanessa Gaffney PT, DPT documented in this encounter [facility] 05-16-2024 Note HNO ID: [id number] Author: VANESSA GAFFNEY PT, DPT Service: ? Author Type: Physical Therapist Type: Progress Notes Filed: 05/16/2024 16:16 Note Text: Episode Visit Count: 1 Therapist That Will Accept/Oversee The Plan Of Care: Vanessa Gaffney Start of Care Date: 05/16/24 Onset Date: 01/28/24 Plan of Care Certification Date: 05/16/24 Next Certification Due Date: 07/15/24 Patient Identified by Name and Date of : Yes REHABILITATION AND SPORTS THERAPY PHYSICAL THERAPY EVALUATION PLAN OF CARE: Assessment: Temitope Haddad presents with chief complaint of R knee pain and weakness (hx of CVA in 2020) that interferes with walking in the house, standing, stair negotiation, rising from a chair . The patient presents with impairments in gait, independence in exercise, overall function, posture, range of motion, strength, symptom management, and tissue tenderness. Patient did not complete the PROMIS? (Patient Reported Outcome Measures Information System). Prognosis for therapy is Fair due to: multiple co- morbidities, chronic nature of impairments . Patient transfer care to [facility] for the following reasons: Closer to home as does not appear to have neuro needs. The patient will benefit from skilled therapy services to meet the goals established for this plan of care as noted below. Goals for Episode of Care: established 05/16/24 [place] in home exercise program. Patient will decrease pain to 3/10 at rest to allow patient to improve ambulation. Patient will increase active ROM of R knee ext by 5 degrees to allow pt to to improve gait mechanics / gait pattern . Patient will demonstrate increase in R LE strength to 5/5 during manual muscle testing in order to improve function for light functional tasks. Patient will improve 5 time sit to stand to demonstrate improvement in functional lower extremity strength. Patient Goals: Get my knee to work. Time Frame for Goals and Treatment : 07/15/24 Planned Interventions, Frequency, and Duration: Current Frequency: 1x/week Duration: 8 weeks Total Number of Visits Planned: 8 Planned Treatment Interventions: Therapeutic exercise (13595), Neuromuscular re-education (73060), Manual therapy (96178), Therapeutic activities (54083), Self-mcfp management (42851), Gait Training (61986), Patient/Family/Caregiver Education PLAN FOR NEXT VISIT: Transfer of care [place]. R LE strengthening and flexibility Patient demonstrates good understanding of plan of care and treatment. The above goals and plan of care were discussed and agreed upon by patient/family. Transfer of Care Due To: Closer to Home Patient transferring care to: [facility] SUBJECTIVE: Pt with R leg gives out. Takes her down to the ground. Knee pain in same knee. Falling about 2 x per month. Going on since Jan 2024. Using cane now (was using a whlie back for CVA). Issue getting worse. Patient Goals: Get my knee to work. Functional Limitations: walking in the house, standing, stair negotiation, rising from a chair Prior Level of Function: Independent without limitations Relevant History Past Relevant Medical Conditions: Cerebral Vascular Accident, Hypertension, Thyroid Disease, COPD, Vertigo, Kidney Problems Employment: Retired Recreation / Current Exercise: Was walking 3-4 miles. Now walking about 1 mile. Home Environment Patient Lives With: Spouse Home Type: Apt/Condo Entry To Home: No Stairs Laundry: 1st floor Equipment Owned: Cane, Crutch(es) Intake Information: Prescription present Previous Treatment: None Falls Interview: Two or more falls in the last year, Uses an assistive device Falls Intervention: More thorough falls assessment to be performed Pain: Pain Pain Level: 5 Pain Location: Knee - Right Description: Sharp, Stabbing Frequency: At rest Post Treatment Pain Post Treatment Pain Level: No Change PROMIS Scales 10/02/2023 03/01/2023 Higher is Better Phys Func - Score 61 (within normal limits) 47 (within normal limits) Phys Func - Percentile 86 38 Self-Eff Symptom - Score 69 (High) 58 (Average) Self-Eff Symptom - Percentile 97 79 T-scores: mean of general population = 50. 5 points is clinically meaningfully difference Percentiles provide an indication of how the patient's score ranks in relation to the general population. Higher percentile rankings indicate better function/quality of life. 50th percentile is the average of the general population and indicates half of respondents had a worse score. OBJECTIVE MEASURES WITH LEVEL OF FUNCTION: Cognition Cognition: Communication Deficits, Memory Deficits Vision Vision Deficits: Visual acuity deficit Posture / Alignment Posture: Rounded shoulders Knee Observations R Knee Palpation Tenderness: Lateral joint line, Iliotibial band, Medial Hamstring, Lateral Hamstring, Quadriceps, Medial joint line, Patellar tendon Sensation - Lower Extremity LE Light Touch Sens (more content not included)... [facility] 05-08-2024 Note HNO ID: [id number] Author: BECKY RAYGOZA MA Service: ? Author Type: Marine Technician Type: Progress Notes Filed: 05/08/2024 15:35 Note Text: POPULATION HEALTH NAVIGATION OUTREACH Action/FYI Topic Due (Y or N) Comments Medicare Wellness Y PCP Follow up Mammogram Y Colorectal Cancer Screening A1C Dilated Retinal Exam (FORTINO) KED (UACR and eGFR) HCC Y Flu Vaccine Care Everywhere Reviewed MyChart Activation Updated Appointment Note Y Reason for Outreach Care Gap/HCC or Scheduling Wellness Visits Care Gaps due: Medicare Annual Wellness Visit Breast Cancer Screening Patient Contacted: Unable or unnecessary to reach patient: HCC related Patient already scheduled Updated appointment notes Navigation Signature: Becky Raygoza MA May 08, 2024 12:19 PM [facility] 05-08-2024 History of Present illness Narrative POPULATION HEALTH NAVIGATION OUTREACH Action/FYI Topic Due (Y or N) Comments Medicare Wellness Y PCP Follow up Mammogram Y Colorectal Cancer Screening A1C Dilated Retinal Exam (FORTINO) KED (UACR and eGFR) HCC Y Flu Vaccine Care Everywhere Reviewed MyChart Activation Updated Appointment Note Y Reason for Outreach Care Gap/HCC or Scheduling Wellness Visits Care Gaps due: Medicare Annual Wellness Visit Breast Cancer Screening Patient Contacted: Unable or unnecessary to reach patient: HCC related Patient already scheduled Updated appointment notes Navigation Signature: Becky Raygoza MA May 08, 2024 12:19 PM documented in this encounter [facility] 05-08-2024 Note Patient Outreach (NE TNAV) TEMITOPE HADDAD ([id number]) 1955 F [facility] Date Time Provider Department 05/08/24 BECKY RAYGOZAV During your visit today, we recorded the following information about you: Becky Raygoza MA 05/08/2024 3:35 PM Signed POPULATION HEALTH NAVIGATION OUTREACH Action/FYI Topic Due (Y or N) Comments Medicare Wellness Y PCP Follow up Mammogram Y Colorectal Cancer Screening A1C Dilated Retinal Exam (FORTINO) KED (UACR and eGFR) HCC Y Flu Vaccine Care Everywhere Reviewed MyChart Activation Updated Appointment Note Y Reason for Outreach Care Gap/HCC or Scheduling Wellness Visits Care Gaps due: Medicare Annual Wellness Visit Breast Cancer Screening Patient Contacted: Unable or unnecessary to reach patient: HCC related Patient already scheduled Updated appointment notes Navigation Signature: Becky Raygoza MA May 08, 2024 12:19 PM Allergies As of Date: 05/08/2024 Noted Allergy Reaction FISH 07/10/2012 7 - Swelling 12 - Shortness of Breath MORPHINE 10/11/2011 1 - Mental Status Change 14 - Other: See Comments VICODIN (HYDROCODONE-ACETAMINOPHE* 012 11 - Vomiting AGGRENOX (ASPIRIN-DIPYRIDAMOLE) 01/31/2023 14 - Other: See Comments Comments: Headache HYDROCODONE BITARTRATE 04/24/2019 14 - Other: See Comments Date Reviewed: 04/29/2024 Reviewed by: Talita Preston LPN - Fully Assessed Reason for Visit: Population Health Navigation Outreach [3910] Cmt: [facility] Prescriptions as of 05/08/2024 - levothyroxine (SYNTHROID) 75 mcg tablet Take 1 tablet by mouth once daily. - clopidogrel (PLAVIX) 75 mg tablet Take 1 tablet by mouth once daily. - montelukast (SINGULAIR) 10 mg tablet Take 1 tablet by mouth daily at bedtime. - losartan (COZAAR) 25 mg tablet Take 1 tablet by mouth once daily. - ciprofloxacin HCl (CIPRO) 500 mg tablet Take 500 mg by mouth two times a day. - metroNIDAZOLE (FLAGYL) 500 mg tablet Take 500 mg by mouth three times a day. - TRELEGY ELLIPTA 200-62.5-25 mcg inhalation powder Inhale 1 Puff as instructed once daily. - atorvastatin (LIPITOR) 40 mg tablet Take 1 tablet by mouth daily at bedtime. For cholesterol. - cholecalciferol (VITAMIN D3) 5,000 unit tab Take 1 tablet by mouth once daily. - alendronate (FOSAMAX) 70 mg tablet Take 1 tablet by mouth one time a week. Take with a full glass of water, on an empty stomach; do NOT lie down for 30minutes. - MOTION SICKNESS RELIEF,MECLIZ, 25 mg chewable tablet(s) Take 1 tablet by mouth three times a day as needed for dizziness. - citalopram hydrobromide (CELEXA) 10 mg tablet Take 1 tablet by mouth once daily. - alendronate (FOSAMAX) 70 mg tablet Take 1 tablet by mouth one time a week. Take with a full glass of water, on an empty stomach; do NOT lie down for 30minutes. - albuterol HFA (PROVENTIL HFA, VENTOLIN HFA) 90 mcg/actuation inhaler inhale 2 puffs by mouth every 6 hours as needed for shortness of breath - TARI ANDERSON 160-9-4.8 mcg/actuation HFA aerosol inhaler Inhale 2 Puffs as instructed twice daily. - levocetirizine 5 mg tablet Take 5 mg by mouth once daily. Meds Comments as of 11/07/2022: Problem List As Of Date 05/08/2024 Noted Resolved Suprapubic pain [R10.2] 10/11/2011 06/10/2013 Dysuria [R30.0] 10/11/2011 Screening for malignant neoplasm of the cervix *10/11/2011 10/11/2011 Hx of seasonal allergies [Z88.9] 04/09/2012 TIA (transient ischemic attack) [G45.9] 04/09/2012 Hiatal hernia [K44.9] 04/26/2012 Adhesive capsulitis of left shoulder [M75.02] 07/10/2012 Hyperlipidemia [E78.5] 08/29/2012 Depression [F32.A] 08/29/2012 Osteopenia [M85.80] 09/12/2012 Vitamin d deficiency [E55.9] 09/14/2012 Capsulitis, adhesive shoulder [M75.00] 09/18/2012 Rectal bleeding [K62.5] 01/11/2013 Abnormal EKG [R94.31] 07/31/2013 Headache, variant migraine [G43.809] 07/31/2013 Pain in joint, shoulder region [M25.519] 10/04/2013 Chest pain [R07.9] 02/16/2019 02/16/2019 History of CVA (cerebrovascular accident) [Z86.*02/16/2019 GERD (gastroesophageal reflux disease) [K21.9] 02/16/2019 Dizziness [R42] 05/07/2021 History of tobacco use [Z87.891] 01/26/2023 COPD (chronic obstructive pulmonary disease) (H*01/26/2023 HTN (hypertension) [I10] 01/26/2023 Hypothyroidism [E03.9] 01/26/2023 Seasonal allergies [J30.2] 01/26/2023 Stroke (HCC) [I63.9] 01/26/2023 Generalized anxiety disorder [F41.1] 01/26/2023 Coccyodynia [M53.3] 03/01/2023 Lumbar spondylosis [M47.816] 03/01/2023 Lung nodules [R91.8] 03/30/2023 Chronic kidney disease (CKD), stage III (modera*07/28/2023 Benign paroxysmal vertigo of right ear [H81.11] 10/03/2023 Heme positive stool [R19.5] 10/25/2023 Moderate recurrent major depression (HCC) [F33.*10/25/2023 Encounter Status:Closed by BECKY RAYGOZA on 05/08/24 [facility] 05-02-2024 Telephone encounter Note Phoned patient left detailed message with results, notes from Dr Ronquillo on voicemail. [facility] 05-02-2024 Miscellaneous Notes Phoned patient left detailed message with results, notes from Dr Roqnuillo on voicemail. ----- Message from Tatiana Ronquillo MD sent at 05/02/2024 8:47 AM EST ----- Xray of the right knee is negative for fracture or dislocation. No signs of arthritis. Continue treatment as discussed. documented in this encounter [facility] 05-02-2024 Telephone encounter Note ----- Message from Tatiana Ronquillo MD sent at 05/02/2024 8:47 AM EST ----- Xray of the right knee is negative for fracture or dislocation. No signs of arthritis. Continue treatment as discussed. [facility] 05-01-2024 Telephone encounter Note Pt called and is notified of providers results and instructions. Pt voices understanding. Yumiko Sarkar RN [facility] 05-01-2024 Miscellaneous Notes Pt called and is notified of providers results and instructions. Pt voices understanding. Yumiko Sarkar RN New rx sent. Recheck TSH in 2 months as ordered. Spoke with pt and information listed below given. Pt verbalizes understanding. Pt reports she is taking her thyroid medication daily. Please advise pt when new medication has been sent. Gerda Ziegler LPN ----- Message from Tatiana Ronquillo MD sent at 05/01/2024 7:07 AM EST ----- Labs are unremarkable aside from high TSH. Please confirm with patient that she is taking her synthroid daily as prescribed. If so, would need to increase dosage. LFTs improved compared to labs 2 months ago. No change in regimen for this. documented in this encounter [facility] 05-01-2024 Telephone encounter Note New rx sent. Recheck TSH in 2 months as ordered. [facility] 05-01-2024 Telephone encounter Note Spoke with pt and information listed below given. Pt verbalizes understanding. Pt reports she is taking her thyroid medication daily. Please advise pt when new medication has been sent. Gerda Ziegler LPN [facility] 05-01-2024 Telephone encounter Note ----- Message from Tatiana Ronquillo MD sent at 05/01/2024 7:07 AM EST ----- Labs are unremarkable aside from high TSH. Please confirm with patient that she is taking her synthroid daily as prescribed. If so, would need to increase dosage. LFTs improved compared to labs 2 months ago. No change in regimen for this. [facility] 04-29-2024 History of Present illness Narrative Radiology Service Progress Note PATIENT NAME: Temitope Haddad DATE OF SERVICE: April 29, 2024 TIME: 1:06 PM PATIENT IDENTITY VERIFICATION COMPLETED USING TWO (2) IDENTIFIERS: Name and Date of confirmed by patient verbally. FALL SCREENING: Has the patient had 2 falls in the last year or 1 fall with injury or currently using an Ambulatory Assistive Device (Walker, Cane, Wheelchair, Crutches, etc.)? No PATIENT GENDER DATA: Female. status: : No status: NO. PATIENT RELEVANT IMPLANT DATA REVIEWED: Not Applicable PATIENT PRESENTS WITH AN IMPLANTABLE OR ATTACHED SHEET PILE DRIVER OPERATOR: No RADIOLOGY DEPARTMENT: General X-ray: Exam(s) Completed: Lower Extremity X-Ray(s): Knee, AP / Lat / Tunne / Merchant Right and Wt. Bearing PERIPHERAL IV DATA: Not applicable SIGNED BY: RT Sindi(R) April 29, 2024 1:06 PM documented in this encounter [facility] 04-29-2024 Note HNO ID: [id number] Author: FABY RIVAS RT(R) Service: Radiology Author Type: Technologist Type: Progress Notes Filed: 04/29/2024 13:21 Note Text: Radiology Service Progress Note PATIENT NAME: Temitope Haddad DATE OF SERVICE: April 29, 2024 TIME: 1:06 PM PATIENT IDENTITY VERIFICATION COMPLETED USING TWO (2) IDENTIFIERS: Name and Date of confirmed by patient verbally. FALL SCREENING: Has the patient had 2 falls in the last year or 1 fall with injury or currently using an Ambulatory Assistive Device (Walker, Cane, Wheelchair, Crutches, etc.)? No PATIENT GENDER DATA: Female. status: : No status: NO. PATIENT RELEVANT IMPLANT DATA REVIEWED: Not Applicable PATIENT PRESENTS WITH AN IMPLANTABLE OR ATTACHED SHEET PILE DRIVER OPERATOR: No RADIOLOGY DEPARTMENT: General X-ray: Exam(s) Completed: Lower Extremity X-Ray(s): Knee, AP / Lat / Tunne / Merchant Right and Wt. Bearing PERIPHERAL IV DATA: Not applicable SIGNED BY: RT Sindi(R) April 29, 2024 1:06 PM [facility] 04-29-2024 Note HNO ID: [id number] Author: TATIANA RONQUILLO MD Service: ? Author Type: Physician Type: Progress Notes Filed: 04/29/2024 12:53 Note Text: Chief Complaint Patient presents with: Fall HPI Temitope Haddad is a 68 year old female who presents here today for evaluation of falls. Patient states that she has been having falls at least once per month which started about 3 months ago. States that she will just be walking and her right knee will give out on her. Will land on her knees and needs help up. Admits to intermittent right knee pain. Located over superior and medial aspect. Exacerbated with standing or walking for long periods. Not treating with anything at home. Patient is supposed to use a cane for walking due to her history of stroke, but has not been compliant. Denies head injury or LOC with these falls, knee locking up or catching, swelling, erythema, bruising.Does not feel unsteady on her feet. Refusing vaccinations today. Due for routine labs. Past medical history, appointments, medications, allergies reviewed. Previous Medical History PAST MEDICAL HISTORY Diagnosis Date Abdominal pain, right lower quadrant Benign neoplasm of colon Chronic kidney disease (CKD), stage III (moderate) ([facility]) COPD (chronic obstructive pulmonary disease) ([facility]) Dr. Wallace Depression Dysuria Generalized anxiety disorder GERD (gastroesophageal reflux disease) Heme positive stool 07/28/2023 EGD and colonoscopy negative for bleed Hiatal hernia 09/09/2023 moderate History of colonic polyps History of tobacco use HTN (hypertension) Hyperlipemia Hypothyroidism Impaired fasting blood sugar Left leg pain Leiomyoma of uterus, unspecified very mild changes seen on sono Lung nodules 03/30/2023 Patient requesting to f/u with pulm for repeat imaging. 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 Logan COLONOSCOPY 2021 Dr. Barakat-1 polyp removed COLONOSCOPY FLX DX W/COLLJ SPEC WHEN PFRMD 10/17/2012 Colonoscopy ESOPHAGOGASTRODUODENOSCOPY TRANSORAL DIAGNOSTIC 10/17/2012 EGD LIG/TRNSXJ FLP TUBE ABDL/VAG APPR UNI/BI 05/29/1982 PAST SURGICAL HISTORY OF left shoulder manipulation PAST SURGICAL HISTORY OF Left skin graft of left upper leg REMV CATARACT EXTRACAP,INSERT LENS Bilateral 2013, 2014 SURGICAL ARTHROSCOPY ADAN W/CORACOACRM LIGM RLS 09/10/2013 Left shoulder arthroscopic Sub AC decompression Family History FAMILY HISTORY Problem Relation Age of Onset other (ulcers in colon [Other]) Mother Thyroid Mother Dementia Mother other (TIA [Other]) Father other (Heart problems [Other]) Father Stroke Father Heart Attack Father Alzheimer's Disease Father Parkinson?s Disease Father No Known Problems Sister No Known Problems Sister No Known Problems Sister No Known Problems Sister No Known Problems Brother Diabetes Maternal Grandmother other (hypoglycemia [Other]) Other Maternal Side other (Ovarian Cyst [Other]) Other Maternal Side, sisters Coronary Artery Disease No Family History Hypertension No Family History Blood Clots No Family History DVT No Family History Factor 5 Leiden No Family History Blood Disease No Family History Systemic Lupus Erythematosus No Family History Multiple Sclerosis No Family History Bipolar disorder No Family History Schizophrenia No Family History Aneurysm No Family History COPD No Family History Patient Allergies ALLERGIES Allergen Reactions Fish Swelling, Shortness of Breath Morphine Mental Status Change, Other: See Comments Vicodin [Hydrocodon* Vomiting Aggrenox [Aspirin-D* Other: See Comments Headache Hydrocodone Bitartr* Other: See Comments Current Medications Current Outpatient Medications on File Prior to Visit Medication Sig clopidogrel (PLAVIX) 75 mg tablet Take 1 tablet by mouth once daily. montelukast (SINGULAIR) 10 mg tablet Take 1 tablet by mouth daily at bedtime. levothyroxine (SYNTHROID) 50 mcg tablet Take 1 tablet by mouth once daily. losartan (COZAAR) 25 mg tablet Take 1 tablet by mouth once daily. ciprofloxacin HCl (CIPRO) 500 mg tablet Take 500 mg by mouth two times a day. metroNIDAZOLE (FLAGYL) 500 mg tablet Take 500 mg by mouth three times a day. TRELEGY ELLIPTA 200-62.5-25 mcg inhalation powder Inhale 1 Puff as instructed once daily. atorvastatin (LIPITOR) 40 mg tablet Take 1 tablet by mouth daily at bedtime. For cholesterol. cholecalciferol (VITAMIN D3) 5,000 unit tab Take 1 tablet by mouth once daily. alendronate (FOSAMAX) 70 mg tablet Take 1 tablet by mouth one time a week. Take with a full glass of water, on an empty stomach; do NOT lie down for 30minutes. MOTION SICKNESS RELIEF,MECLIZ, 25 mg chewable ta (more content not included)... [facility] 04-29-2024 History of Present illness Narrative Chief Complaint Patient presents with: Fall HPI Temitope Haddad is a 68 year old female who presents here today for evaluation of falls. Patient states that she has been having falls at least once per month which started about 3 months ago. States that she will just be walking and her right knee will give out on her. Will land on her knees and needs help up. Admits to intermittent right knee pain. Located over superior and medial aspect. Exacerbated with standing or walking for long periods. Not treating with anything at home. Patient is supposed to use a cane for walking due to her history of stroke, but has not been compliant. Denies head injury or LOC with these falls, knee locking up or catching, swelling, erythema, bruising.Does not feel unsteady on her feet. Refusing vaccinations today. Due for routine labs. Past medical history, appointments, medications, allergies reviewed. Previous Medical History PAST MEDICAL HISTORY Diagnosis Date Abdominal pain, right lower quadrant Benign neoplasm of colon Chronic kidney disease (CKD), stage III (moderate) ([facility]) COPD (chronic obstructive pulmonary disease) ([facility]) Dr. Wallace Depression Dysuria Generalized anxiety disorder GERD (gastroesophageal reflux disease) Heme positive stool 07/28/2023 EGD and colonoscopy negative for bleed Hiatal hernia 09/09/2023 moderate History of colonic polyps History of tobacco use HTN (hypertension) Hyperlipemia Hypothyroidism Impaired fasting blood sugar Left leg pain Leiomyoma of uterus, unspecified very mild changes seen on sono Lung nodules 03/30/2023 Patient requesting to f/u with pulm for repeat imaging. Osteopenia 02/13/2023 Seasonal allergies Skin graft hematoma Left leg, managed by plastic surgery Stroke ([facility]) x 4 Suprapubic pain Vitamin D deficiency Previous Surgical History PAST SURGICAL HISTORY Procedure Laterality Date BREAST BIOPSY 05/29/1997 (L) breast biopsy- Dr. Logan COLONOSCOPY 2021 Dr. Barakat-1 polyp removed COLONOSCOPY FLX DX W/COLLJ SPEC WHEN PFRMD 10/17/2012 Colonoscopy ESOPHAGOGASTRODUODENOSCOPY TRANSORAL DIAGNOSTIC 10/17/2012 EGD LIG/TRNSXJ FLP TUBE ABDL/VAG APPR UNI/BI 05/29/1982 PAST SURGICAL HISTORY OF left shoulder manipulation PAST SURGICAL HISTORY OF Left skin graft of left upper leg REMV CATARACT EXTRACAP,INSERT LENS Bilateral 2013, 2014 SURGICAL ARTHROSCOPY ADAN W/CORACOACRM LIGM RLS 09/10/2013 Left shoulder arthroscopic Sub AC decompression Family History FAMILY HISTORY Problem Relation Age of Onset other (ulcers in colon [Other]) Mother Thyroid Mother Dementia Mother other (TIA [Other]) Father other (Heart problems [Other]) Father Stroke Father Heart Attack Father Alzheimer's Disease Father Parkinson s Disease Father No Known Problems Sister No Known Problems Sister No Known Problems Sister No Known Problems Sister No Known Problems Brother Diabetes Maternal Grandmother other (hypoglycemia [Other]) Other Maternal Side other (Ovarian Cyst [Other]) Other Maternal Side, sisters Coronary Artery Disease No Family History Hypertension No Family History Blood Clots No Family History DVT No Family History Factor 5 Leiden No Family History Blood Disease No Family History Systemic Lupus Erythematosus No Family History Multiple Sclerosis No Family History Bipolar disorder No Family History Schizophrenia No Family History Aneurysm No Family History COPD No Family History Patient Allergies ALLERGIES Allergen Reactions Fish Swelling, Shortness of Breath Morphine Mental Status Change, Other: See Comments Vicodin [Hydrocodon* Vomiting Aggrenox [Aspirin-D* Other: See Comments Headache Hydrocodone Bitartr* Other: See Comments Current Medications Current Outpatient Medications on File Prior to Visit Medication Sig clopidogrel (PLAVIX) 75 mg tablet Take 1 tablet by mouth once daily. montelukast (SINGULAIR) 10 mg tablet Take 1 tablet by mouth daily at bedtime. levothyroxine (SYNTHROID) 50 mcg tablet Take 1 tablet by mouth once daily. losartan (COZAAR) 25 mg tablet Take 1 tablet by mouth once daily. ciprofloxacin HCl (CIPRO) 500 mg tablet Take 500 mg by mouth two times a day. metroNIDAZOLE (FLAGYL) 500 mg tablet Take 500 mg by mouth three times a day. TRELEGY ELLIPTA 200-62.5-25 mcg inhalation powder Inhale 1 Puff as instructed once daily. atorvastatin (LIPITOR) 40 mg tablet Take 1 tablet by mouth daily at bedtime. For cholesterol. cholecalciferol (VITAMIN D3) 5,000 unit tab Take 1 tablet by mouth once daily. alendronate (FOSAMAX) 70 mg tablet Take 1 tablet by mouth one time a week. Take with a full glass of water, on an empty stomach; do NOT lie down for 30minutes. MOTION SICKNESS RELIEF,MECLIZ, 25 mg chewable tablet(s) Take 1 tablet by mouth three times a day as needed for dizziness. albuterol HFA (PROVENTIL HFA, VENTOLIN HFA) 90 mcg/actuation inhaler inhale 2 puffs by mouth every 6 hours as needed for shortness of breath levocetirizine 5 mg tablet Take 5 mg by mouth once daily. citalopram hydrobromide (CELEXA) 10 mg tablet Take 1 tablet by mouth once daily. alendronate (FOSAMAX) 70 mg tablet Take 1 tablet by mouth one time a week. Take with a full glass of water, on an empty stomach; do NOT lie down for 30minutes. BREZTRI AEROSPHERE 160-9-4.8 mcg/actuation HFA aerosol inhaler Inhale 2 Puffs as instructed twice daily. No current facility-administered medications on file prior to visit. Social History Social History Tobacco Use Smoking status: Former Current packs/day: 0.00 Average packs/day: 1.5 packs/day for 42.0 years (63.0 ttl pk-yrs) Types: Cigarettes Start date: 07/27/1978 Quit date: 07/27/2020 Years since quittin.7 Smokeless tobacco: Never Tobacco comments: d/c 07/27/2020 Vaping Use Vaping status: Never Used Substance Use Topics Alcohol use: No Drug use: No Review of Symptoms REVIEW OF SYSTEMS See HPI EXAM: BP 132/72 Pulse 62 Resp 18 Wt 79.1 kg (174 lb 6.4 oz) SpO2 95% BMI 28.15 kg/m General Appearance: Well appearing, alert, in no acute distress, well-hydrated, well nourished.. Skin: Skin color, texture, turgor normal, no suspicious rashes or lesions. Neuro: 5/5 strength in LE bilaterally KNEE:Location: Right Redness: No. Warmth: No. Crepitus: Yes. Effusion: Yes. Joint line tenderness: Yes. Lateral tenderness: No. Medial tenderness: Yes. Drawer sign negative: Yes. Medial or lateral laxity: No. Prakash's sign: No. Health Maintenance List BP Controlled (<130/80) Never done Advance Directive Discussion Never done Influenza Vaccine(1) due on 01/28/2024 Covid-19 Vaccine(3 - 2023- season) due on 01/28/2024 Mammogram Screening due on 02/24/2024 Lung Cancer Screening due on 03/14/2024 DTaP,Tdap,Td Vaccine(1 - Tdap) due on 06/27/2024 Shingrix Vaccine(2 of 2) due on 06/27/2024 RSV Vaccine(1 - Risk 60-74 years 1-dose series) due on 07/26/2024 Spirometry due on 10/24/2024 Serum Creatinine due on 02/19/2025 Hemoglobin/Hematocrit due on 02/19/2025 Annual PCP Team Chronic Disease Visit due on 04/29/2025 Diabetes Screening due on 02/19/2027 Lipid Screening due on 01/27/2028 Colorectal Cancer Screening due on 09/03/2033 Bone Density Screening Completed Pneumococcal Vaccine: 65+ Completed Alpha-1 Antitrypsin Deficiency Screening Discontinued Cervical Cancer Screening Discontinued Hepatitis C Screening Discontinued Data reviewed Latest Ref Rng 02/20/2024 WBC 3.70 - 11.00 k/uL 6.67 RBC 3.90 - 5.20 m/uL 4.42 Hemoglobin 11.5 - 15.5 g/dL 13.3 Hematocrit 36.0 - 46.0 % 41.9 MCV 80.0 - 100.0 fL 94.8 MCH 26.0 - 34.0 pg 30.1 MCHC 30.5 - 36.0 g/dL 31.7 RDW-CV 11.5 - 15.0 % 14.5 Platelet Count 150 - 400 k/uL 219 MPV 9.0 - 12.7 fL 9.1 Neut% % 74.3 Abs Neut (ANC) 1.45 - 7.50 k/uL 4.95 Lymph% % 14.8 Abs Lymph 1.00 - 4.00 k/uL 0.99 (L) [place]% % 9.0 Abs [place] <0.87 k/uL 0.60 Eosin% % 1.2 Abs Eosin <0.46 k/uL 0.08 Baso% % 0.4 Abs Baso <0.11 k/uL 0.03 Immature Gran % % 0.3 IMMATURE GRANS (ABS) <0.10 k/uL <0.03 NRBC /100 WBC 0.0 Absolute nRBC <0.01 k/uL <0.01 DTYPE Auto Protein, Total 6.3 - 8.0 g/dL 6.8 Albumin 3.9 - 4.9 g/dL 3.7 (L) Calcium 8.5 - 10.2 mg/dL 8.9 Bilirubin, Total 0.2 - 1.3 mg/dL 0.5 Alkaline Phosphatase 34 - 123 U/L 69 AST 13 - 35 U/L 101 (H) ALT 7 - 38 U/L 164 (H) Glucose 74 - 99 mg/dL 106 (H) BUN 7 - 21 mg/dL 7 Creatinine 0.58 - 0.96 mg/dL 1.07 (H) Sodium 136 - 144 mmol/L 138 Potassium 3.7 - 5.1 mmol/L 3.9 Chloride 98 - 107 mmol/L 101 CO2 22 - 30 mmol/L 25 Anion Gap 8 - 15 mmol/L 12 eGFR >=60 mL/min/1.73m 57 (L) WSR 0 - 20 mm/hr 43 (H) CRP <0.9 mg/dL 1.2 (H) Legend: (L) Low (H) High ASSESSMENT/PLAN: 1. Falls frequently - ICD9: V15.88, ICD10: R29.6 I suspect her falls are related to some weakness in the right knee related to her history of stroke. I have encouraged her to use her cane daily with ambulation to prevent falls. Will obtain xray of the knee and refer her to PT for further evaluation and treatment. May use ice/heat, OTC tylenol PRN for pain. Red flags for re-assessment reviewed with patient in detail. - CONSULT TO PHYSICAL THERAPY - XR KNEE GENERAL 4V AP BOTH/PA BOTH/LAT/MERC RIGHT 2. Knee gives out, right - ICD9: 718.86, ICD10: M25.361 See above. - CONSULT TO PHYSICAL THERAPY - XR KNEE GENERAL 4V AP BOTH/PA BOTH/LAT/MERC RIGHT 3. History of CVA (cerebrovascular accident) - ICD9: V12.54, ICD10: Z86.73 No recurrent symptoms noted today. Continue secondary stroke prevention. 4. Primary hypertension - ICD9: 401.9, ICD10: I10 - Controlled - Continue current medications - Recommend home blood pressure monitoring, to bring results to next visit - Encouraged sodium restriction, DASH or Mediterranean diet - Recommend regular aerobic exercise - COMPREHENSIVE METABOLIC PANEL 5. Mixed hyperlipidemia - ICD9: 272.2, ICD10: E78.2 - Control undetermined, due for labs - Continue current medications - Counseled on healthy diet and regular exercise - LIPID PANEL, NONFASTING 6. Acquired hypothyroidism - ICD9: 244.9, ICD10: E03.9 - Instructed patient on importance of taking on an empty stomach either first thing in the morning or at bedtime. - check TSH today - continue current dose of Synthroid - THYROID STIMULATING HORMONE Tatiana Ronquillo MD documented in this encounter [facility] 04-21-2024 Telephone encounter Note Patient completed US on 04/19/2024 [facility] 04-21-2024 Miscellaneous Notes Patient completed US on 04/19/2024 1st attempt LVM to schedule US Patient informed and verbalized understanding. Sending to schedulers to assist in scheduling US that was ordered. Savita Vidales MA Please let patient know their CT is negative for acute findings. I have ordered a US of the area. documented in this encounter [facility] 04-19-2024 Telephone encounter Note Order placed for US RLQ. Shavonne Donato APRN.CNP [facility] 04-19-2024 Miscellaneous Notes Order placed for US RLQ. Shavonne Donato APRN.CNP May we please have ultrasound orders placed for mass RLQ. US Soft tissue Abdomen ([id number]) Pt. Is currently waiting in radiology. Thank you so much! Theresa documented in this encounter [facility] 04-19-2024 History of Present illness Narrative Radiology Service Progress Note PATIENT NAME: Temitope Haddad DATE OF SERVICE: April 19, 2024 TIME: 2:39 PM PATIENT IDENTITY VERIFICATION COMPLETED USING TWO (2) IDENTIFIERS: Name and Date of confirmed by patient verbally. FALL SCREENING: Has the patient had 2 falls in the last year or 1 fall with injury or currently using an Ambulatory Assistive Device (Walker, Cane, Wheelchair, Crutches, etc.)? No PATIENT GENDER DATA: Female. status: : No status: NO. PATIENT RELEVANT IMPLANT DATA REVIEWED: Not Applicable PATIENT PRESENTS WITH AN IMPLANTABLE OR ATTACHED SHEET PILE DRIVER OPERATOR: No RADIOLOGY DEPARTMENT: Ultrasound PERIPHERAL IV DATA: Not applicable SIGNED BY: Theresa Sawant RDMS April 19, 2024 2:39 PM documented in this encounter [facility] 04-19-2024 Note HNO ID: [id number] Author: THERESA SAWANT RDMS Service: ? Author Type: Pocketed Spring Assembler Type: Progress Notes Filed: 04/19/2024 14:39 Note Text: Radiology Service Progress Note PATIENT NAME: Temitope Haddad DATE OF SERVICE: April 19, 2024 TIME: 2:39 PM PATIENT IDENTITY VERIFICATION COMPLETED USING TWO (2) IDENTIFIERS: Name and Date of confirmed by patient verbally. FALL SCREENING: Has the patient had 2 falls in the last year or 1 fall with injury or currently using an Ambulatory Assistive Device (Walker, Cane, Wheelchair, Crutches, etc.)? No PATIENT GENDER DATA: Female. status: : No status: NO. PATIENT RELEVANT IMPLANT DATA REVIEWED: Not Applicable PATIENT PRESENTS WITH AN IMPLANTABLE OR ATTACHED SHEET PILE DRIVER OPERATOR: No RADIOLOGY DEPARTMENT: Ultrasound PERIPHERAL IV DATA: Not applicable SIGNED BY: Theresa Sawant RDMS April 19, 2024 2:39 PM [facility] 04-19-2024 Telephone encounter Note May we please have ultrasound orders placed for mass RLQ. US Soft tissue Abdomen ([id number]) Pt. Is currently waiting in radiology. Thank you so much! Theresa [facility] 04-19-2024 Telephone encounter Note 1st attempt LVM to schedule US [facility] 04-18-2024 Telephone encounter Note Patient informed and verbalized understanding. Sending to schedulers to assist in scheduling US that was ordered. Savita Vidales MA [facility] 04-18-2024 Telephone encounter Note Please let patient know their CT is negative for acute findings. I have ordered a US of the area. [facility] 04-18-2024 History of Present illness Narrative Radiology Service Progress Note DATE OF SERVICE: April 18, 2024 TIME: 1:23 PM PATIENT IDENTITY VERIFICATION COMPLETED USING TWO (2) STANDARD IDENTIFIERS: Name and Date of confirmed by patient verbally. FALL SCREENING: Has the patient had 2 falls in the last year or 1 fall with injury or currently using an Ambulatory Assistive Device (Walker, Cane, Wheelchair, Crutches, etc.)? No PATIENT GENDER DATA: Female. status: : No status: NO. PATIENT RELEVANT IMPLANT DATA REVIEWED: Not Applicable PATIENT PRESENTS WITH AN IMPLANTABLE OR ATTACHED SHEET PILE DRIVER OPERATOR: No ALLERGIES: Reviewed and unchanged CONTRAST ALLERGY: NO. EXAM: CT -CONTRAST INDUCED NEPHROPATHY RISK FACTORS: Patient age > 60 years CREATININE: Creatinine Date Value Ref Range Status 02/20/2024 1.07 (H) 0.58 - 0.96 mg/dL Final 10/25/2023 1.07 (H) 0.58 - 0.96 mg/dL Final 09/13/2023 1.23 (H) 0.58 - 0.96 mg/dL Final Estimated Glomerular Filtration Rate Date Value Ref Range Status 02/20/2024 57 (L) >=60 mL/min/1.73m Final Comment: Estimated Glomerular Filtration Rate (eGFR) is calculated using the 2020 CKD-EPI creatinine equation. This equation utilizes serum creatinine, sex, and age as parameters. The creatinine assay has traceable calibration to isotope dilution-mass spectrometry. Refer to KDIGO guidelines for clinical interpretation. In patients with unstable renal function, e.g. those with acute kidney injury, the eGFR may not accurately reflect actual GFR. eGFR- Date Value Ref Range Status 02/15/2019 >60 Final P.O.C.T. RESULTS: N/A April 18, 2024 TREATMENT: N/A PERIPHERAL IV DATA: Ambulatory: A peripheral IV was started in the Left upper extremity antecubital site with a Angio cath: 22 gauge. RADIOLOGY DEPARTMENT: CT; Exam(s) Completed: Abdomen/Pelvis SIGNATURE: JHONATAN Langley PATIENT NAME: Temitope Haddad DATE: April 18, 2024 TIME: 1:23 PM documented in this encounter [facility] 04-18-2024 Note HNO ID: [id number] Author: ISAAK CROWDER CT Service: Radiology Author Type: Technologist Type: Progress Notes Filed: 04/18/2024 13:23 Note Text: Radiology Service Progress Note DATE OF SERVICE: April 18, 2024 TIME: 1:23 PM PATIENT IDENTITY VERIFICATION COMPLETED USING TWO (2) STANDARD IDENTIFIERS: Name and Date of confirmed by patient verbally. FALL SCREENING: Has the patient had 2 falls in the last year or 1 fall with injury or currently using an Ambulatory Assistive Device (Walker, Cane, Wheelchair, Crutches, etc.)? No PATIENT GENDER DATA: Female. status: : No status: NO. PATIENT RELEVANT IMPLANT DATA REVIEWED: Not Applicable PATIENT PRESENTS WITH AN IMPLANTABLE OR ATTACHED SHEET PILE DRIVER OPERATOR: No ALLERGIES: Reviewed and unchanged CONTRAST ALLERGY: NO. EXAM: CT -CONTRAST INDUCED NEPHROPATHY RISK FACTORS: Patient age > 60 years CREATININE: Creatinine Date Value Ref Range Status 02/20/2024 1.07 (H) 0.58 - 0.96 mg/dL Final 10/25/2023 1.07 (H) 0.58 - 0.96 mg/dL Final 09/13/2023 1.23 (H) 0.58 - 0.96 mg/dL Final Estimated Glomerular Filtration Rate Date Value Ref Range Status 02/20/2024 57 (L) >=60 mL/min/1.73m? Final Comment: Estimated Glomerular Filtration Rate (eGFR) is calculated using the 2020 CKD-EPI creatinine equation. This equation utilizes serum creatinine, sex, and age as parameters. The creatinine assay has traceable calibration to isotope dilution-mass spectrometry. Refer to KDIGO guidelines for clinical interpretation. In patients with unstable renal function, e.g. those with acute kidney injury, the eGFR may not accurately reflect actual GFR. eGFR- Date Value Ref Range Status 02/15/2019 >60 Final P.O.C.T. RESULTS: N/A April 18, 2024 TREATMENT: N/A PERIPHERAL IV DATA: Ambulatory: A peripheral IV was started in the Left upper extremity antecubital site with a Angio cath: 22 gauge. RADIOLOGY DEPARTMENT: CT; Exam(s) Completed: Abdomen/Pelvis SIGNATURE: JHONATAN Langley PATIENT NAME: Temitope Haddad DATE: April 18, 2024 TIME: 1:23 PM [facility] 04-18-2024 Note HNO ID: [id number] Author: SABINE CROWLEY APRN.ENVIRONMENTAL PROJECTS ADVISOR Service: ? Author Type: Nurse Practitioner Type: Progress Notes Filed: 04/18/2024 12:09 Note Text: Chief Complaint Patient presents with: Mass: Lower abdomen X 1 week HPI Temitope Haddad is a 68 year old female who presents here today for Above Complaints.. Patient presents for 1 week history of lump to left lower abdomen just above groin. Patient reports area is tender but not red or discolored. Reports nausea. Denies fever, chills, diarrhea, vomiting. Pain is consistent and present all the time. Nothing improves pain, palpation and standing make pain worse. Past medical history, appointments, medications, allergies reviewed. Previous Medical History PAST MEDICAL HISTORY Diagnosis Date Abdominal pain, right lower quadrant Benign neoplasm of colon Chronic kidney disease (CKD), stage III (moderate) ([facility]) COPD (chronic obstructive pulmonary disease) ([facility]) Dr. Wallace Depression Dysuria Generalized anxiety disorder GERD (gastroesophageal reflux disease) Heme positive stool 07/28/2023 EGD and colonoscopy negative for bleed Hiatal hernia 09/09/2023 moderate History of colonic polyps History of tobacco use HTN (hypertension) Hyperlipemia Hypothyroidism Impaired fasting blood sugar Left leg pain Leiomyoma of uterus, unspecified very mild changes seen on sono Lung nodules 03/30/2023 Patient requesting to f/u with pulm for repeat imaging. 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 Doreen COLONOSCOPY 2021 Dr. Friend-1 polyp removed COLONOSCOPY FLX DX W/COLLJ SPEC WHEN PFRMD 10/17/2012 Colonoscopy ESOPHAGOGASTRODUODENOSCOPY TRANSORAL DIAGNOSTIC 10/17/2012 EGD LIG/TRNSXJ FLP TUBE ABDL/VAG APPR UNI/BI 05/29/1982 PAST SURGICAL HISTORY OF left shoulder manipulation PAST SURGICAL HISTORY OF Left skin graft of left upper leg REMV CATARACT EXTRACAP,INSERT LENS Bilateral 2013, 2014 SURGICAL ARTHROSCOPY ADAN W/CORACOACRM LIGM RLS 09/10/2013 Left shoulder arthroscopic Sub AC decompression Family History FAMILY HISTORY Problem Relation Age of Onset other (ulcers in colon [Other]) Mother Thyroid Mother Dementia Mother other (TIA [Other]) Father other (Heart problems [Other]) Father Stroke Father Heart Attack Father Alzheimer's Disease Father Parkinson?s Disease Father No Known Problems Sister No Known Problems Sister No Known Problems Sister No Known Problems Sister No Known Problems Brother Diabetes Maternal Grandmother other (hypoglycemia [Other]) Other Maternal Side other (Ovarian Cyst [Other]) Other Maternal Side, sisters Coronary Artery Disease No Family History Hypertension No Family History Blood Clots No Family History DVT No Family History Factor 5 Leiden No Family History Blood Disease No Family History Systemic Lupus Erythematosus No Family History Multiple Sclerosis No Family History Bipolar disorder No Family History Schizophrenia No Family History Aneurysm No Family History COPD No Family History Patient Allergies ALLERGIES Allergen Reactions Fish Swelling, Shortness of Breath Morphine Mental Status Change, Other: See Comments Vicodin [Hydrocodon* Vomiting Aggrenox [Aspirin-D* Other: See Comments Headache Hydrocodone Bitartr* Other: See Comments Current Medications Current Outpatient Medications on File Prior to Visit Medication Sig clopidogrel (PLAVIX) 75 mg tablet Take 1 tablet by mouth once daily. montelukast (SINGULAIR) 10 mg tablet Take 1 tablet by mouth daily at bedtime. levothyroxine (SYNTHROID) 50 mcg tablet Take 1 tablet by mouth once daily. losartan (COZAAR) 25 mg tablet Take 1 tablet by mouth once daily. ciprofloxacin HCl (CIPRO) 500 mg tablet Take 500 mg by mouth two times a day. metroNIDAZOLE (FLAGYL) 500 mg tablet Take 500 mg by mouth three times a day. TRELEGY ELLIPTA 200-62.5-25 mcg inhalation powder Inhale 1 Puff as instructed once daily. atorvastatin (LIPITOR) 40 mg tablet Take 1 tablet by mouth daily at bedtime. For cholesterol. cholecalciferol (VITAMIN D3) 5,000 unit tab Take 1 tablet by mouth once daily. alendronate (FOSAMAX) 70 mg tablet Take 1 tablet by mouth one time a week. Take with a full glass of water, on an empty stomach; do NOT lie down for 30minutes. MOTION SICKNESS RELIEF,MECLIZ, 25 mg chewable tablet(s) Take 1 tablet by mouth three times a day as needed for dizziness. citalopram hydrobromide (CELEXA) 10 mg tablet Take 1 tablet by mouth once daily. alendronate (FOSAMAX) 70 mg tablet Take 1 tablet by mouth one time a week. Take with a full glass of water, on an empty stomach; do NOT lie down for 30minutes. albuterol HFA (PROVENTIL HFA, MOJGAN (more content not included)... [facility] 04-18-2024 History of Present illness Narrative Chief Complaint Patient presents with: Mass: Lower abdomen X 1 week HPI Temitope Haddad is a 68 year old female who presents here today for Above Complaints.. Patient presents for 1 week history of lump to left lower abdomen just above groin. Patient reports area is tender but not red or discolored. Reports nausea. Denies fever, chills, diarrhea, vomiting. Pain is consistent and present all the time. Nothing improves pain, palpation and standing make pain worse. Past medical history, appointments, medications, allergies reviewed. Previous Medical History PAST MEDICAL HISTORY Diagnosis Date Abdominal pain, right lower quadrant Benign neoplasm of colon Chronic kidney disease (CKD), stage III (moderate) ([facility]) COPD (chronic obstructive pulmonary disease) ([facility] [facility]) Dr. Wallace Depression Dysuria Generalized anxiety disorder GERD (gastroesophageal reflux disease) Heme positive stool 07/28/2023 EGD and colonoscopy negative for bleed Hiatal hernia 09/09/2023 moderate History of colonic polyps History of tobacco use HTN (hypertension) Hyperlipemia Hypothyroidism Impaired fasting blood sugar Left leg pain Leiomyoma of uterus, unspecified very mild changes seen on sono Lung nodules 03/30/2023 Patient requesting to f/u with pulm for repeat imaging. Osteopenia 02/13/2023 Seasonal allergies Skin graft hematoma Left leg, managed by plastic surgery Stroke ([facility]) x 4 Suprapubic pain Vitamin D deficiency Previous Surgical History PAST SURGICAL HISTORY Procedure Laterality Date BREAST BIOPSY 05/29/1997 (L) breast biopsy- Dr. Logan COLONOSCOPY 2021 Dr. Barakat-1 polyp removed COLONOSCOPY FLX DX W/COLLJ SPEC WHEN PFRMD 10/17/2012 Colonoscopy ESOPHAGOGASTRODUODENOSCOPY TRANSORAL DIAGNOSTIC 10/17/2012 EGD LIG/TRNSXJ FLP TUBE ABDL/VAG APPR UNI/BI 05/29/1982 PAST SURGICAL HISTORY OF left shoulder manipulation PAST SURGICAL HISTORY OF Left skin graft of left upper leg REMV CATARACT EXTRACAP,INSERT LENS Bilateral 2013, 2014 SURGICAL ARTHROSCOPY ADAN W/CORACOACRM LIGM RLS 09/10/2013 Left shoulder arthroscopic Sub AC decompression Family History FAMILY HISTORY Problem Relation Age of Onset other (ulcers in colon [Other]) Mother Thyroid Mother Dementia Mother other (TIA [Other]) Father other (Heart problems [Other]) Father Stroke Father Heart Attack Father Alzheimer's Disease Father Parkinson s Disease Father No Known Problems Sister No Known Problems Sister No Known Problems Sister No Known Problems Sister No Known Problems Brother Diabetes Maternal Grandmother other (hypoglycemia [Other]) Other Maternal Side other (Ovarian Cyst [Other]) Other Maternal Side, sisters Coronary Artery Disease No Family History Hypertension No Family History Blood Clots No Family History DVT No Family History Factor 5 Leiden No Family History Blood Disease No Family History Systemic Lupus Erythematosus No Family History Multiple Sclerosis No Family History Bipolar disorder No Family History Schizophrenia No Family History Aneurysm No Family History COPD No Family History Patient Allergies ALLERGIES Allergen Reactions Fish Swelling, Shortness of Breath Morphine Mental Status Change, Other: See Comments Vicodin [Hydrocodon* Vomiting Aggrenox [Aspirin-D* Other: See Comments Headache Hydrocodone Bitartr* Other: See Comments Current Medications Current Outpatient Medications on File Prior to Visit Medication Sig clopidogrel (PLAVIX) 75 mg tablet Take 1 tablet by mouth once daily. montelukast (SINGULAIR) 10 mg tablet Take 1 tablet by mouth daily at bedtime. levothyroxine (SYNTHROID) 50 mcg tablet Take 1 tablet by mouth once daily. losartan (COZAAR) 25 mg tablet Take 1 tablet by mouth once daily. ciprofloxacin HCl (CIPRO) 500 mg tablet Take 500 mg by mouth two times a day. metroNIDAZOLE (FLAGYL) 500 mg tablet Take 500 mg by mouth three times a day. TRELEGY ELLIPTA 200-62.5-25 mcg inhalation powder Inhale 1 Puff as instructed once daily. atorvastatin (LIPITOR) 40 mg tablet Take 1 tablet by mouth daily at bedtime. For cholesterol. cholecalciferol (VITAMIN D3) 5,000 unit tab Take 1 tablet by mouth once daily. alendronate (FOSAMAX) 70 mg tablet Take 1 tablet by mouth one time a week. Take with a full glass of water, on an empty stomach; do NOT lie down for 30minutes. MOTION SICKNESS RELIEF,MECLIZ, 25 mg chewable tablet(s) Take 1 tablet by mouth three times a day as needed for dizziness. citalopram hydrobromide (CELEXA) 10 mg tablet Take 1 tablet by mouth once daily. alendronate (FOSAMAX) 70 mg tablet Take 1 tablet by mouth one time a week. Take with a full glass of water, on an empty stomach; do NOT lie down for 30minutes. albuterol HFA (PROVENTIL HFA, VENTOLIN HFA) 90 mcg/actuation inhaler inhale 2 puffs by mouth every 6 hours as needed for shortness of breath BREZTRI AEROSPHERE 160-9-4.8 mcg/actuation HFA aerosol inhaler Inhale 2 Puffs as instructed twice daily. levocetirizine 5 mg tablet Take 5 mg by mouth once daily. No current facility-administered medications on file prior to visit. Social History Social History Tobacco Use Smoking status: Former Current packs/day: 0.00 Average packs/day: 1.5 packs/day for 42.0 years (63.0 ttl pk-yrs) Types: Cigarettes Start date: 07/27/1978 Quit date: 07/27/2020 Years since quittin.7 Smokeless tobacco: Never Tobacco comments: d/c 07/27/2020 Vaping Use Vaping status: Never Used Substance Use Topics Alcohol use: No Drug use: No Review of Symptoms REVIEW OF SYSTEMS SEE HPI EXAM: BP 153/75 Pulse 66 Wt 77.6 kg (171 lb) BMI 27.60 kg/m General Appearance: Well appearing, alert, in no acute distress, well-hydrated, well nourished.. Abdomen: Positive findings: distended, tenderness moderate and involuntary guarding RLQ, mass, located RLQ. Health Maintenance List Advance Directive Discussion Never done Influenza Vaccine(1) due on 01/28/2024 Covid-19 Vaccine(3 - season) due on 01/28/2024 Mammogram Screening due on 02/24/2024 Lung Cancer Screening due on 03/14/2024 DTaP,Tdap,Td Vaccine(1 - Tdap) due on 06/27/2024 Shingrix Vaccine(2 of 2) due on 06/27/2024 RSV Vaccine(1 - Risk 60-74 years 1-dose series) due on 07/26/2024 Spirometry due on 10/24/2024 Annual PCP Team Chronic Disease Visit due on 02/19/2025 Serum Creatinine due on 02/19/2025 Hemoglobin/Hematocrit due on 02/19/2025 BP Controlled (<130/80) due on 02/19/2025 Diabetes Screening due on 02/19/2027 Lipid Screening due on 01/27/2028 Colorectal Cancer Screening due on 09/03/2033 Bone Density Screening Completed Pneumococcal Vaccine: 65+ Completed Alpha-1 Antitrypsin Deficiency Screening Discontinued Cervical Cancer Screening Discontinued Hepatitis C Screening Discontinued ASSESSMENT/PLAN: 1. Nausea - ICD9: 787.02, ICD10: R11.0 (primary diagnosis) - CT ABD/PEL W IVCON 2. Right lower quadrant abdominal pain - ICD9: 789.03, ICD10: R10.31 - Work up with CT Abdomen/Pelvis - CT ABD/PEL W IVCON Patient instructed to proceed to ER if pain gets worse or if CT can not be scheduled today, verbalized understanding. Sabine Crowley APRN.ENVIRONMENTAL PROJECTS ADVISOR documented in this encounter [facility] 04-17-2024 Telephone encounter Note Pt reports she has a lump in right groin, at hip line area, for about 1 week. Started out the size of a pea, and now is size of - a little bigger than a marble and feels hard. Tender. No reddness. No sign of infection. Skin on top of lump is not discolored. No openings in pcp triad today or tomorrow. Scheduled appt with Bag Maker for tomorrow. [facility] 04-17-2024 Miscellaneous Notes Pt reports she has a lump in right groin, at hip line area, for about 1 week. Started out the size of a pea, and now is size of - a little bigger than a marble and feels hard. Tender. No reddness. No sign of infection. Skin on top of lump is not discolored. No openings in pcp triad today or tomorrow. Scheduled appt with Bag Maker for tomorrow. documented in this encounter [facility] 04-12-2024 Telephone encounter Note The patient has been identified by name and date of : Yes Caregiver verified no other encounters exist for this prescription request: Yes Caregiver confirmed with patient/requestor that no other refills are due, in the near future, with this provider at this time: Yes The last office visit in the department: 02/20/2024 Does the patient have a future office visit with this provider/department: 04/29/2024 Requested Prescriptions Pending Prescriptions Disp Refills clopidogrel (PLAVIX) 75 mg tablet 90 tablet 1 Sig: Take 1 tablet by mouth once daily. montelukast (SINGULAIR) 10 mg tablet 30 tablet 2 Sig: Take 1 tablet by mouth daily at bedtime. Yasmin Jackson RN April 12, 2024 3:00 PM [facility] 04-12-2024 Miscellaneous Notes The patient has been identified by name and date of : Yes Caregiver verified no other encounters exist for this prescription request: Yes Caregiver confirmed with patient/requestor that no other refills are due, in the near future, with this provider at this time: Yes The last office visit in the department: 02/20/2024 Does the patient have a future office visit with this provider/department: 04/29/2024 Requested Prescriptions Pending Prescriptions Disp Refills clopidogrel (PLAVIX) 75 mg tablet 90 tablet 1 Sig: Take 1 tablet by mouth once daily. montelukast (SINGULAIR) 10 mg tablet 30 tablet 2 Sig: Take 1 tablet by mouth daily at bedtime. Yasmin Jackson RN April 12, 2024 3:00 PM documented in this encounter [facility] 04-05-2024 Telephone encounter Note The patient has been identified by name and date of : Yes Caregiver verified no other encounters exist for this prescription request: Yes Caregiver confirmed with patient/requestor that no other refills are due, in the near future, with this provider at this time: Yes The last office visit in the department: 02/20/2024 Does the patient have a future office visit with this provider/department: 04/29/2024 Requested Prescriptions Pending Prescriptions Disp Refills levothyroxine (SYNTHROID) 50 mcg tablet 90 tablet 1 Sig: Take 1 tablet by mouth once daily. losartan (COZAAR) 25 mg tablet 90 tablet 1 Sig: Take 1 tablet by mouth once daily. Yasmin Jackson RN April 05, 2024 2:51 PM [facility] 04-05-2024 Miscellaneous Notes The patient has been identified by name and date of : Yes Caregiver verified no other encounters exist for this prescription request: Yes Caregiver confirmed with patient/requestor that no other refills are due, in the near future, with this provider at this time: Yes The last office visit in the department: 02/20/2024 Does the patient have a future office visit with this provider/department: 04/29/2024 Requested Prescriptions Pending Prescriptions Disp Refills levothyroxine (SYNTHROID) 50 mcg tablet 90 tablet 1 Sig: Take 1 tablet by mouth once daily. losartan (COZAAR) 25 mg tablet 90 tablet 1 Sig: Take 1 tablet by mouth once daily. Yasimn Jackson RN April 05, 2024 2:51 PM documented in this encounter [facility] 04-03-2024 Note Patient Outreach (IN [facility]) TEMITOPE HADDAD ([id number]) 1955 F T Date Time Provider Department 04/03/24 TATIANA RONQUILLO During your visit today, we recorded the following information about you: Allergies As of Date: 04/03/2024 Noted Allergy Reaction FISH 07/10/2012 7 - Swelling 12 - Shortness of Breath MORPHINE 10/11/2011 1 - Mental Status Change 14 - Other: See Comments VICODIN (HYDROCODONE-ACETAMINOPHE* 012 11 - Vomiting AGGRENOX (ASPIRIN-DIPYRIDAMOLE) 01/31/2023 14 - Other: See Comments Comments: Headache HYDROCODONE BITARTRATE 04/24/2019 14 - Other: See Comments Date Reviewed: 02/20/2024 Reviewed by: Talita Preston LPN - Fully Assessed Visit Diagnosis:Encounter for screening mammogram for breast cancer [Z12.31] Order(s):[facility] [[id number]] Order #: [id number] FUTURE Prescriptions as of 04/08/2024 - ciprofloxacin HCl (CIPRO) 500 mg tablet Take 500 mg by mouth two times a day. - metroNIDAZOLE (FLAGYL) 500 mg tablet Take 500 mg by mouth three times a day. - TRELEGY ELLIPTA 200-62.5-25 mcg inhalation powder Inhale 1 Puff as instructed once daily. - montelukast (SINGULAIR) 10 mg tablet Take 1 tablet by mouth daily at bedtime. - atorvastatin (LIPITOR) 40 mg tablet Take 1 tablet by mouth daily at bedtime. For cholesterol. - cholecalciferol (VITAMIN D3) 5,000 unit tab Take 1 tablet by mouth once daily. - alendronate (FOSAMAX) 70 mg tablet Take 1 tablet by mouth one time a week. Take with a full glass of water, on an empty stomach; do NOT lie down for 30minutes. - clopidogrel (PLAVIX) 75 mg tablet Take 1 tablet by mouth once daily. - losartan (COZAAR) 25 mg tablet Take 1 tablet by mouth once daily. - levothyroxine (SYNTHROID) 50 mcg tablet Take 1 tablet by mouth once daily. - MOTION SICKNESS RELIEF,MECLIZ, 25 mg chewable tablet(s) Take 1 tablet by mouth three times a day as needed for dizziness. - citalopram hydrobromide (CELEXA) 10 mg tablet Take 1 tablet by mouth once daily. - alendronate (FOSAMAX) 70 mg tablet Take 1 tablet by mouth one time a week. Take with a full glass of water, on an empty stomach; do NOT lie down for 30minutes. - albuterol HFA (PROVENTIL HFA, VENTOLIN HFA) 90 mcg/actuation inhaler inhale 2 puffs by mouth every 6 hours as needed for shortness of breath - BREZTRI AEROSPHERE 160-9-4.8 mcg/actuation HFA aerosol inhaler Inhale 2 Puffs as instructed twice daily. - levocetirizine 5 mg tablet Take 5 mg by mouth once daily. Meds Comments as of 11/07/2022: Problem List As Of Date 04/03/2024 Noted Resolved Suprapubic pain [R10.2] 10/11/2011 06/10/2013 Dysuria [R30.0] 10/11/2011 Screening for malignant neoplasm of the cervix *10/11/2011 10/11/2011 Hx of seasonal allergies [Z88.9] 04/09/2012 TIA (transient ischemic attack) [G45.9] 04/09/2012 Hiatal hernia [K44.9] 04/26/2012 Adhesive capsulitis of left shoulder [M75.02] 07/10/2012 Hyperlipidemia [E78.5] 08/29/2012 Depression [F32.A] 08/29/2012 Osteopenia [M85.80] 09/12/2012 Vitamin d deficiency [E55.9] 09/14/2012 Capsulitis, adhesive shoulder [M75.00] 09/18/2012 Rectal bleeding [K62.5] 01/11/2013 Abnormal EKG [R94.31] 07/31/2013 Headache, variant migraine [G43.809] 07/31/2013 Pain in joint, shoulder region [M25.519] 10/04/2013 Chest pain [R07.9] 02/16/2019 02/16/2019 History of CVA (cerebrovascular accident) [Z86.*02/16/2019 GERD (gastroesophageal reflux disease) [K21.9] 02/16/2019 Dizziness [R42] 05/07/2021 History of tobacco use [Z87.891] 01/26/2023 COPD (chronic obstructive pulmonary disease) (H*01/26/2023 HTN (hypertension) [I10] 01/26/2023 Hypothyroidism [E03.9] 01/26/2023 Seasonal allergies [J30.2] 01/26/2023 Stroke (HCC) [I63.9] 01/26/2023 Generalized anxiety disorder [F41.1] 01/26/2023 Coccyodynia [M53.3] 03/01/2023 Lumbar spondylosis [M47.816] 03/01/2023 Lung nodules [R91.8] 03/30/2023 Chronic kidney disease (CKD), stage III (modera*07/28/2023 Benign paroxysmal vertigo of right ear [H81.11] 10/03/2023 Heme positive stool [R19.5] 10/25/2023 Moderate recurrent major depression (HCC) [F33.*10/25/2023 Encounter Status:Closed by Mister Bell, PRODUSER on 04/08/24 [facility] 02-22-2024 Telephone encounter Note Patient notified of results and provider's instructions. Patient verbalizes understanding. Fadumo Alvarado RN [facility] 02-22-2024 Miscellaneous Notes Patient notified of results and provider's instructions. Patient verbalizes understanding. Fadumo Alvarado RN Left a message for pt to call the office and ask to speak to a nurse. Gerda Ziegler LPN Blood work negative for anemia or signs of acute infection. Inflammatory markers are still elevated consistent with her colitis. Kidney function stable in CKD stage IIIa range. LFTs mildly elevated. CT scan in the ER did not show any abnormality with liver or gallbladder. This may be related to her colitis. Avoid tylenol and alcohol. Recheck levels in 2-3 weeks. documented in this encounter [facility] 02-22-2024 Telephone encounter Note Left a message for pt to call the office and ask to speak to a nurse. Gerda Ziegler LPN [facility] 02-22-2024 Telephone encounter Note Blood work negative for anemia or signs of acute infection. Inflammatory markers are still elevated consistent with her colitis. Kidney function stable in CKD stage IIIa range. LFTs mildly elevated. CT scan in the ER did not show any abnormality with liver or gallbladder. This may be related to her colitis. Avoid tylenol and alcohol. Recheck levels in 2-3 weeks. [facility] 02-21-2024 Telephone encounter Note Patient notified and verbalized understanding. Ashlee Elliott LPN [facility] 02-21-2024 Miscellaneous Notes Patient notified and verbalized understanding. Ashlee Elliott LPN Rx sent for Lagevrio. Take as directed. Call with side effects. F/u in 1 week if symptoms not improving. Go to ER with high fever, sudden chest pain or SOB, dehydration or confusion. Molnupiravir Eligibility and Patient Discussion [facility] Formulary Restriction Criteria: Adult outpatients 18 years and older with ALL of the following: [x] Patient has symptoms for 5 days or less [x] Not requiring hospitalization at any time for management of COVID-19 [x] Not requiring supplemental oxygen or a change in baseline supplemental oxygen [x] Not utilized for pre-exposure or post-exposure prophylaxis for prevention of COVID-19 [x] Patient is not or lactating [x] Meeting at least one of the criteria for high risk of progression to severe COVID-19: [x] Age over 65 years [] Cancer [] Chronic kidney disease [] Chronic liver disease [] Chronic lung diseases, including cystic fibrosis [] Dementia or other neurological conditions [] Diabetes (type 1 or type 2) [] Disabilities, including Down syndrome and neurodevelopmental disorders [] Heart conditions [] HIV infection [] Immunocompromised state [] Mental health conditions [] Medical related technological dependence (tracheostomy, gastrostomy, or positive pressure ventilation (not related to COVID) [] Overweight and obesity (BMI greater or equal to 25 for adults) [] Physical inactivity [] Sickle cell disease or thalassemia [] Smoking, current or former [] Solid organ or blood stem cell transplant [] Stroke or cerebrovascular disease [] Substance use disorders [] Tuberculosis [] People from racial and ethnic minority groups Criteria above are met: Yes Date of Symptom Onset: 02/19/2024 Patient received COVID vaccine: Yes / status reviewed: Females: [x] Patient is not currently and there is no possibility the patient could be (select one of the following): [] test does not need to be confirmed in patients who have undergone permanent sterilization, are currently using an intrauterine system or contraceptive implant, or in whom is not possible. [] Patients not meeting conditions above: assess whether the patient is based on the first day of the last menstrual period in individuals who have regular menstrual cycles, is using reliable method of contraception correctly and consistently or have had a negative test [] A test is recommended if the individual has irregular menstrual cycles, is unsure of the first day of the last menstrual period or is not using effective contraception correctly and consistently [x] Patient is not currently . is not recommended during treatment and for four days after final dose of molnupiravir. [x] Females have been advised to use a reliable method of contraception correctly and consistently for the duration of treatment and for four days after the last dose of molnupiravir Males: [] Sexually active male with partner(s) of childbearing potential has been advised to use a reliable method of contraception correctly and consistently for intercourse for the duration of treatment and for three months after the last dose of molnupiravir I have discussed the use of the investigational therapeutic, molnupiravir, for the treatment of mild to moderate COVID-19 and its use under Emergency Use Authorization with the patient. The patient was informed that molnupiravir is not an FDA approved drug and that it is authorized for use under this Emergency Use Authorization. The patient was also informed of the significant known benefits and potential risks of molnupiravir, and the extent to which such potential risks and benefits are unknown. The patient was informed that there is mandatory reporting of all medication errors and serious adverse events potentially related to molnupiravir treatment within 7 calendar days from the onset of the event and that events up to 28 days after completion of therapy need to be reported. The discussion included alternatives to receiving molnupiravir, including clinical trials, and potential the risks and benefits of those alternatives. The patient was provided electronically with the Fact Sheet for Patients, Parents and Caregivers. The patient was also instructed that in addition to the treatment with molnupiravir, he/she should continue to self-isolate and use infection control measures (e.g., wear mask, isolate, social distance, avoid sharing personal items, clean and disinfect high touch surfaces, and frequent handwashing) according to CDC guidelines. The patient stated understanding and gave verbal consent to proceeding with molnupiravir treatment. Tatiana Ronquillo MD February 21, 2024 11:49 AM Pt called and is notified of providers results and instructions. Pt voices understanding. [facility] request [facility] Pt would like provider to send medication in to [facility] in [place] for her. Yumiko Babulski, RN Patient is positive for COVID. Recommend rest, supportive care, and should isolate until: At least 24 hours have passed since last fever without the use of fever-reducing medications and Symptoms (e.g., cough, shortness of breath) have improved. Should wear mask for at least 5 days after he ends isolation to prevent spread to others. She would qualify for antiviral treatment with Paxlovid or Lagevrio. With her being on multiple medications, I would recommend the Lagevrio. This would be a regimen she would take twice daily for 5 days and would have to be started within 5 days of symptoms. Possible side effects include: nausea, diarrhea, dizziness, rash, vomiting, itching, possible anaphylaxis. In animal studies has seen bone and cartilage toxicity, but this has not been seen in humans. If interested in this regimen, would call in to pharmacy. Please let me know. documented in this encounter [facility] 02-21-2024 Telephone encounter Note Rx sent for Lagevrio. Take as directed. Call with side effects. F/u in 1 week if symptoms not improving. Go to ER with high fever, sudden chest pain or SOB, dehydration or confusion. Molnupiravir Eligibility and Patient Discussion [facility] Formulary Restriction Criteria: Adult outpatients 18 years and older with ALL of the following: [x] Patient has symptoms for 5 days or less [x] Not requiring hospitalization at any time for management of COVID-19 [x] Not requiring supplemental oxygen or a change in baseline supplemental oxygen [x] Not utilized for pre-exposure or post-exposure prophylaxis for prevention of COVID-19 [x] Patient is not or lactating [x] Meeting at least one of the criteria for high risk of progression to severe COVID-19: [x] Age over 65 years [] Cancer [] Chronic kidney disease [] Chronic liver disease [] Chronic lung diseases, including cystic fibrosis [] Dementia or other neurological conditions [] Diabetes (type 1 or type 2) [] Disabilities, including Down syndrome and neurodevelopmental disorders [] Heart conditions [] HIV infection [] Immunocompromised state [] Mental health conditions [] Medical related technological dependence (tracheostomy, gastrostomy, or positive pressure ventilation (not related to COVID) [] Overweight and obesity (BMI greater or equal to 25 for adults) [] Physical inactivity [] Sickle cell disease or thalassemia [] Smoking, current or former [] Solid organ or blood stem cell transplant [] Stroke or cerebrovascular disease [] Substance use disorders [] Tuberculosis [] People from racial and ethnic minority groups Criteria above are met: Yes Date of Symptom Onset: 02/19/2024 Patient received COVID vaccine: Yes / status reviewed: Females: [x] Patient is not currently and there is no possibility the patient could be (select one of the following): [] test does not need to be confirmed in patients who have undergone permanent sterilization, are currently using an intrauterine system or contraceptive implant, or in whom is not possible. [] Patients not meeting conditions above: assess whether the patient is based on the first day of the last menstrual period in individuals who have regular menstrual cycles, is using reliable method of contraception correctly and consistently or have had a negative test [] A test is recommended if the individual has irregular menstrual cycles, is unsure of the first day of the last menstrual period or is not using effective contraception correctly and consistently [x] Patient is not currently . is not recommended during treatment and for four days after final dose of molnupiravir. [x] Females have been advised to use a reliable method of contraception correctly and consistently for the duration of treatment and for four days after the last dose of molnupiravir Males: [] Sexually active male with partner(s) of childbearing potential has been advised to use a reliable method of contraception correctly and consistently for intercourse for the duration of treatment and for three months after the last dose of molnupiravir I have discussed the use of the investigational therapeutic, molnupiravir, for the treatment of mild to moderate COVID-19 and its use under Emergency Use Authorization with the patient. The patient was informed that molnupiravir is not an FDA approved drug and that it is authorized for use under this Emergency Use Authorization. The patient was also informed of the significant known benefits and potential risks of molnupiravir, and the extent to which such potential risks and benefits are unknown. The patient was informed that there is mandatory reporting of all medication errors and serious adverse events potentially related to molnupiravir treatment within 7 calendar days from the onset of the event and that events up to 28 days after completion of therapy need to be reported. The discussion included alternatives to receiving molnupiravir, including clinical trials, and potential the risks and benefits of those alternatives. The patient was provided electronically with the Fact Sheet for Patients, Parents and Caregivers. The patient was also instructed that in addition to the treatment with molnupiravir, he/she should continue to self-isolate and use infection control measures (e.g., wear mask, isolate, social distance, avoid sharing personal items, clean and disinfect high touch surfaces, and frequent handwashing) according to CDC guidelines. The patient stated understanding and gave verbal consent to proceeding with molnupiravir treatment. Tatiana Ronquillo MD February 21, 2024 11:49 AM [facility] 02-21-2024 Instructions Tatiana Ronquillo MD - 02/21/2024 11:47 AM EDT Fact Sheet for Patients And Caregivers Emergency Use Authorization (EUA) Of LAGEVRIO (molnupiravir) capsules For Coronavirus Disease 2019 (COVID-19) What is the most important information I should know about LAGEVRIO? LAGEVRIO may cause serious side effects, including: LAGEVRIO may cause harm to your unborn baby. It is not known if LAGEVRIO will harm your baby if you take LAGEVRIO during . LAGEVRIO is not recommended for use in . LAGEVRIO has not been studied in . LAGEVRIO was studied in animals only. When LAGEVRIO was given to animals, LAGEVRIO caused harm to their unborn babies. You and your healthcare provider may decide that you should take LAGEVRIO during if there are no other COVID-19 treatment options approved or authorized by the FDA that are accessible or clinically appropriate for you. If you and your healthcare provider decide that you should take LAGEVRIO during , you and your healthcare provider should discuss the known and potential benefits and the potential risks of taking LAGEVRIO during . For individuals who are able to become : You should use a reliable method of control (contraception) consistently and correctly during treatment with LAGEVRIO and for 4 days after the last dose of LAGEVRIO. Talk to your healthcare provider about reliable control methods. Before starting treatment with LAGEVRIO your healthcare provider may do a test to see if you are before starting treatment with LAGEVRIO. Tell your healthcare provider right away if you become or think you may be during treatment with LAGEVRIO. Registry: There is a registry for individuals who take LAGEVRIO during . The purpose of this program is to collect information about the health of you and your baby. If you are or become during treatment with LAGEVRIO, you are encouraged to report your use of LAGEVRIO during to this registry at https://covid-pr.[email or web address] or . For individuals who are sexually active with partners who are able to become : It is not known if LAGEVRIO can affect sperm. While the risk is regarded as low, animal studies to fully assess the potential for LAGEVRIO to affect the babies of males treated with LAGEVRIO have not been completed. A reliable method of control (contraception) should be used consistently and correctly during treatment with LAGEVRIO and for at least 3 months after the last dose. The risk to sperm beyond 3 months is not known. Studies to understand the risk to sperm beyond 3 months are ongoing. Talk to your healthcare provider about reliable control methods. Talk to your healthcare provider if you have questions or concerns about how LAGEVRIO may affect sperm. You are being given this fact sheet because your healthcare provider believes it is necessary to provide you with LAGEVRIO for the treatment of adults with a current diagnosis of mild-tomoderate coronavirus disease 2019 (COVID-19) who are at high risk for progression to severe COVID-19, including hospitalization or , and for whom other COVID-19 treatment options approved or authorized by the FDA are not accessible or clinically appropriate. The [place]. Food and Drug Administration (FDA) has issued an Emergency Use Authorization (EUA) to make LAGEVRIO available during the COVID-19 pandemic (for more details about an EUA please see What is an Emergency Use Authorization? at the end of this document). LAGEVRIO is not an FDA-approved medicine in the [place]. Read this Fact Sheet for information about LAGEVRIO. Talk to your healthcare provider about your options if you have any questions. It is your choice to take LAGEVRIO. What is COVID-19? COVID-19 is caused by a virus called a coronavirus. You can get COVID-19 through close contact with another person who has the virus. COVID-19 illnesses have ranged from very bowh-cf-alivkm, including illness resulting in . While information so far suggests that most COVID-19 illness is mild, serious illness can happen and may cause some of your other medical conditions to become worse. Older people and people of all ages with severe, long lasting (chronic) medical conditions like heart disease, lung disease and diabetes, for example seem to be at higher risk of being hospitalized for COVID-19. What is LAGEVRIO? LAGEVRIO is an investigational medicine used to treat adults with a current diagnosis of mild to moderate COVID-19: who are at high risk for progression to severe COVID-19 including hospitalization or , and for whom other COVID-19 treatment options approved or authorized by the FDA are not accessible or clinically appropriate. The FDA has authorized the emergency use of LAGEVRIO for the treatment of mild-tomoderate COVID-19 in adults under an EUA. For more information on EUA, see the What is an Emergency Use Authorization (EUA)? section at the end of this Fact Sheet. LAGEVRIO is not authorized: for use in people less than 18 years of age. for prevention of COVID-19. for people needing hospitalization for COVID-19. for use for longer than 5 consecutive days. What should I tell my healthcare provider before I take LAGEVRIO? Tell your healthcare provider if you: have any allergies are or plan to breastfeed have any serious illnesses Take any medicines including prescription, hapj-tue-iivwlab medicines, vitamins, and herbal products. How do I take LAGEVRIO? Take LAGEVRIO exactly as your healthcare provider tells you to take it. Take 4 capsules of LAGEVRIO every 12 hours (for example, at 8 am and at 8 pm) Take LAGEVRIO for 5 days. It is important that you complete the full 5 days of treatment with LAGEVRIO. Do not stop taking LAGEVRIO before you complete the full 5 days of treatment, even if you feel better. Take LAGEVRIO with or without food. You should stay in isolation for as long as your healthcare provider tells you to. Talk to your healthcare provider if you are not sure about how to properly isolate while you have COVID-19. Swallow LAGEVRIO capsules whole. Do not open, break, or crush the capsules. If you cannot swallow capsules whole, tell your healthcare provider. If your healthcare provider prescribes LAGEVRIO and tells you to take or give a dose through a nasogastric (NG) or orogastric (OG) tube, follow the instructions below: How to take or give a dose of LAGEVRIO through a nasogastric (NG) or orogastric (OG) feeding tube. You must have an NG or OG that is size 12 Stateless (FR) or larger. If you miss a dose of LAGEVRIO: If it has been less than 10 hours since the missed dose, take it as soon as you remember. If it has been more than 10 hours since the missed dose, skip the missed dose and take your dose at the next scheduled time. Do not double the dose of LAGEVRIO to make up for a missed dose. How to take or give a dose of LAGEVRIO through a nasogastric (NG) or orogastric (OG) feeding tube: Wash your hands well with soap and water. Gather the supplies you will need to take or give the prescribed dose of LAGEVRIO. 4 LAGEVRIO capsules 1 liquid measuring cup with mL markings to measure 40 mL of room temperature water 1 clean container with a lid 1 catheter tip syringe. Your healthcare provider should tell you what size catheter tip syringe you will need to take or give a dose of LAGEVRIO. Place the needed supplies on a clean work surface. Follow your healthcare provider s instructions on how to flush the NG or OG feeding tube. Flush the NG or OG feeding tube with 5 mL of water before taking or giving a dose of LAGEVRIO. Carefully open 4 LAGEVRIO capsules, one at a time, and empty the contents into a clean container. Use the liquid measuring cup to measure 40 mL of room temperature water and add to the container containing the capsule contents. Place the lid on the container. Shake to mix the capsule contents and water well for 3 minutes. The capsule contents may not dissolve completely. Remove the lid from the container and draw up all the LAGEVRIO and water mixture into a catheter tip syringe. Give all of the mixture right away through the NG or OG feeding tube. Do not keep the mixture for future use. If any capsule contents are left in the container: Add 10 mL of water to the container, and mix to loosen any capsule contents that are left in the container. Use the catheter tip syringe to draw up all of the mixture in the container. Give the mixture through the NG or OG feeding tube. Repeat this process as needed until you no longer see any capsule contents left in the container or catheter tip syringe. Use the same catheter tip syringe to flush the NG or OG feeding tube 2 times with 5 mL of water (10mL total). Rinse the container, lid and catheter tip syringe well with clean water after use. Place on a clean paper towel until next use. What are the important possible side effects of LAGEVRIO? See, What is the most important information I should know about LAGEVRIO? Allergic Reactions. Allergic reactions can happen in people taking LAGEVRIO, even after only 1 dose. Stop taking LAGEVRIO and call your healthcare provider right away if you get any of the following symptoms of an allergic reaction: hives rapid heartbeat trouble swallowing or breathing swelling of the mouth, lips, or face throat tightness hoarseness skin rash The most common side effects of LAGEVRIO are: diarrhea nausea dizziness These are not all the possible side effects of LAGEVRIO. Not many people have taken LAGEVRIO. Serious and unexpected side effects may happen. This medicine is still being studied, so it is possible that all of the risks are not known at this time. What other treatment choices are there? Veklury (remdesivir) is FDA-approved as an intravenous (IV) infusion for the treatment of mildto-moderate COVID-19 in certain adults and children. Talk with your doctor to see if Veklury is appropriate for you. Like LAGEVRIO, FDA may also allow for the emergency use of other medicines to treat people with COVID-19. Go to https://www.fda.gov/emergency-pre vbyvduapo-ufx-lyrsjirs/mcm-legalr mruhimfur-hln-olptnl-framework/em nsdzldj-kbp-ilgcxcmkdvfid for more information. It is your choice to be treated or not to be treated with LAGEVRIO. Should you decide not to take it, it will not change your standard medical care. What if I am ? is not recommended during treatment with LAGEVRIO and for 4 days after the last dose of LAGEVRIO. If you are or plan to breastfeed, talk to your healthcare provider about your options and specific situation before taking LAGEVRIO. How do I report side effects with LAGEVRIO? Contact your healthcare provider if you have any side effects that bother you or do not go away. Report side effects to FDA MedWatch at www.fda.gov/medwatch or call 1-250-RUE-8228 (1218.168.4494). How should I store LAGEVRIO? Store LAGEVRIO capsules at room temperature between 68 F to 77 F (20 C to 25 C). Keep LAGEVRIO and all medicines out of the reach of children. How can I learn more about COVID-19? Ask your healthcare provider. Visit www.cdc.gov/COVID19 Contact your local or state public health department. Call [employer] at (toll free in the [place] Visit [employer] What Is an Emergency Use Authorization (EUA)? The [place] FDA has made LAGEVRIO available under an emergency access mechanism called an Emergency Use Authorization (EUA) The EUA is supported by a [employer] of Health and Human Service (HHS) declaration that circumstances exist to justify emergency use of drugs and biological products during the COVID-19 pandemic. LAGEVRIO for the treatment of adults with a current diagnosis of okss-aj-pmynpnya COVID-19 who are at high risk for progression to severe COVID-19, including hospitalization or , and for whom alternative COVID-19 treatment options approved or authorized by FDA are not accessible or clinically appropriate, has not undergone the same type of review as an FDAapproved product. In issuing an EUA under the COVID-19 public health emergency, the FDA has determined, among other things, that based on the total amount of scientific evidence available including data from adequate and well-controlled clinical trials, if available, it is reasonable to believe that the product may be effective for diagnosing, treating, or preventing COVID-19, or a serious or life-threatening disease or condition caused by COVID-19; that the known and potential benefits of the product, when used to diagnose, treat, or prevent such disease or condition, outweigh the known and potential risks of such product; and that there are no adequate, approved, and available alternatives. All of these criteria must be met to allow for the product to be used in the treatment of patients during the COVID-19 pandemic. The EUA for LAGEVRIO is in effect for the duration of the COVID-19 declaration justifying emergency use of LAGEVRIO, unless terminated or revoked (after which LAGEVRIO may no longer be used under the EUA). [place]. for: [employer] [address] For patent information: www.[employer]/research/patent Copyright [employer] [place], [place], [facility] and its affiliates. All rights reserved. [id number] Revised: June 2022 documented in this encounter [facility] 02-21-2024 Telephone encounter Note Pt called and is notified of providers results and instructions. Pt voices understanding. [facility] Pt would like provider to send medication in to [facility] in [place] for her. Yumiko Sarkar RN [facility] 02-21-2024 Telephone encounter Note Patient is positive for COVID. Recommend rest, supportive care, and should isolate until: At least 24 hours have passed since last fever without the use of fever-reducing medications and Symptoms (e.g., cough, shortness of breath) have improved. Should wear mask for at least 5 days after he ends isolation to prevent spread to others. She would qualify for antiviral treatment with Paxlovid or Lagevrio. With her being on multiple medications, I would recommend the Lagevrio. This would be a regimen she would take twice daily for 5 days and would have to be started within 5 days of symptoms. Possible side effects include: nausea, diarrhea, dizziness, rash, vomiting, itching, possible anaphylaxis. In animal studies has seen bone and cartilage toxicity, but this has not been seen in humans. If interested in this regimen, would call in to pharmacy. Please let me know. [facility] 02-20-2024 Note HNO ID: [id number] Author: TATIANA RONQUILLO MD Service: ? Author Type: Physician Type: Progress Notes Filed: 02/20/2024 11:36 Note Text: Chief Complaint No chief complaint on file. HPI Temitope Haddad is a 68 year old female who presents here today for ER Follow Up.. Patient evaluated at [facility] ED on 02/10 for complaint of rectal bleeding x2 and suprapubic pain. Workup in the ER showed normal CBC and CMP aside from potassium of 3.2. Lipase negative. UA negative for infection. CT scan consistent with inflammatory colitis. Given IV zofran and medications for pain in the ER and was discharged home with Cipro and Flagyl with recommendation to follow up with our office. Since discharge, patient states that she has been compliant with abx as prescribed without side effects and has not had any recurrent bleeding or melanotic stools. Still has some pain in her RLQ which is also gradually improving. Currently 07/08 without radiation. Tolerating PO diet without nausea, vomiting, or diarrhea. Admits to fatigue. Denies fevers/chills, lightheadedness/vertigo, SOB, syncope. Also complaining of rhinorrhea and nasal congestion which started yesterday. Treating with benadryl which does help with symptoms. Feels different than her typical allergic rhinitis. Denies fever/chills, headache, sore throat, cough, wheezing, SOB, chest pain, chest congestion, new loss of taste/smell, nausea, vomiting, diarrhea. No recent sick contacts or COVID exposure in the last 2 weeks. Past medical history, appointments, medications, allergies reviewed. Previous Medical History PAST MEDICAL HISTORY Diagnosis Date Abdominal pain, right lower quadrant Benign neoplasm of colon Chronic kidney disease (CKD), stage III (moderate) ([facility]) COPD (chronic obstructive pulmonary disease) ([facility]) Dr. Wallace Depression Dysuria Generalized anxiety disorder GERD (gastroesophageal reflux disease) Heme positive stool 07/28/2023 EGD and colonoscopy negative for bleed Hiatal hernia 09/09/2023 moderate History of colonic polyps History of tobacco use HTN (hypertension) Hyperlipemia Hypothyroidism Impaired fasting blood sugar Left leg pain Leiomyoma of uterus, unspecified very mild changes seen on sono Lung nodules 03/30/2023 Patient requesting to f/u with pulm for repeat imaging. 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 Logan COLONOSCOPY 2021 Dr. Barakat-1 polyp removed COLONOSCOPY FLX DX W/COLLJ SPEC WHEN PFRMD 10/17/2012 Colonoscopy ESOPHAGOGASTRODUODENOSCOPY TRANSORAL DIAGNOSTIC 10/17/2012 EGD LIG/TRNSXJ FLP TUBE ABDL/VAG APPR UNI/BI 05/29/1982 PAST SURGICAL HISTORY OF left shoulder manipulation PAST SURGICAL HISTORY OF Left skin graft of left upper leg REMV CATARACT EXTRACAP,INSERT LENS Bilateral 2013, 2014 SURGICAL ARTHROSCOPY ADAN W/CORACOACRM LIGM RLS 09/10/2013 Left shoulder arthroscopic Sub AC decompression Family History FAMILY HISTORY Problem Relation Age of Onset other (ulcers in colon [Other]) Mother Thyroid Mother Dementia Mother other (TIA [Other]) Father other (Heart problems [Other]) Father Stroke Father Heart Attack Father Alzheimer's Disease Father Parkinson?s Disease Father No Known Problems Sister No Known Problems Sister No Known Problems Sister No Known Problems Sister No Known Problems Brother Diabetes Maternal Grandmother other (hypoglycemia [Other]) Other Maternal Side other (Ovarian Cyst [Other]) Other Maternal Side, sisters Coronary Artery Disease No Family History Hypertension No Family History Blood Clots No Family History DVT No Family History Factor 5 Leiden No Family History Blood Disease No Family History Systemic Lupus Erythematosus No Family History Multiple Sclerosis No Family History Bipolar disorder No Family History Schizophrenia No Family History Aneurysm No Family History COPD No Family History Patient Allergies ALLERGIES Allergen Reactions Fish Swelling, Shortness of Breath Morphine Mental Status Change, Other: See Comments Vicodin [Hydrocodon* Vomiting Aggrenox [Aspirin-D* Other: See Comments Headache Hydrocodone Bitartr* Other: See Comments Current Medications Current Outpatient Medications on File Prior to Visit Medication Sig TRELEGY ELLIPTA 200-62.5-25 mcg inhalation powder Inhale 1 Puff as instructed once daily. montelukast (SINGULAIR) 10 mg tablet Take 1 tablet by mouth daily at bedtime. (Patient not taking: Reported on 01/22/2024) atorvastatin (LIPITOR) 40 mg tablet Take 1 tablet by mouth daily at bedtime. For cholesterol. cholecalciferol (VITAMIN D3) 5,000 unit tab Take 1 tablet by mouth once daily. alendronate (FOSAMAX) 70 (more content not included)... [facility] 02-20-2024 History of Present illness Narrative Chief Complaint No chief complaint on file. HPI Temitope Haddad is a 68 year old female who presents here today for ER Follow Up.. Patient evaluated at [facility] ED on 02/10 for complaint of rectal bleeding x2 and suprapubic pain. Workup in the ER showed normal CBC and CMP aside from potassium of 3.2. Lipase negative. UA negative for infection. CT scan consistent with inflammatory colitis. Given IV zofran and medications for pain in the ER and was discharged home with Rosemary and Luis F with recommendation to follow up with our office. Since discharge, patient states that she has been compliant with abx as prescribed without side effects and has not had any recurrent bleeding or melanotic stools. Still has some pain in her RLQ which is also gradually improving. Currently 07/08 without radiation. Tolerating PO diet without nausea, vomiting, or diarrhea. Admits to fatigue. Denies fevers/chills, lightheadedness/vertigo, SOB, syncope. Also complaining of rhinorrhea and nasal congestion which started yesterday. Treating with benadryl which does help with symptoms. Feels different than her typical allergic rhinitis. Denies fever/chills, headache, sore throat, cough, wheezing, SOB, chest pain, chest congestion, new loss of taste/smell, nausea, vomiting, diarrhea. No recent sick contacts or COVID exposure in the last 2 weeks. Past medical history, appointments, medications, allergies reviewed. Previous Medical History PAST MEDICAL HISTORY Diagnosis Date Abdominal pain, right lower quadrant Benign neoplasm of colon Chronic kidney disease (CKD), stage III (moderate) ([facility]) COPD (chronic obstructive pulmonary disease) ([facility]) Dr. Wallace Depression Dysuria Generalized anxiety disorder GERD (gastroesophageal reflux disease) Heme positive stool 07/28/2023 EGD and colonoscopy negative for bleed Hiatal hernia 09/09/2023 moderate History of colonic polyps History of tobacco use HTN (hypertension) Hyperlipemia Hypothyroidism Impaired fasting blood sugar Left leg pain Leiomyoma of uterus, unspecified very mild changes seen on sono Lung nodules 03/30/2023 Patient requesting to f/u with pulm for repeat imaging. 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 Logan COLONOSCOPY 2021 Dr. Barakat-1 polyp removed COLONOSCOPY FLX DX W/COLLJ SPEC WHEN PFRMD 10/17/2012 Colonoscopy ESOPHAGOGASTRODUODENOSCOPY TRANSORAL DIAGNOSTIC 10/17/2012 EGD LIG/TRNSXJ FLP TUBE ABDL/VAG APPR UNI/BI 05/29/1982 PAST SURGICAL HISTORY OF left shoulder manipulation PAST SURGICAL HISTORY OF Left skin graft of left upper leg REMV CATARACT EXTRACAP,INSERT LENS Bilateral 2013, 2014 SURGICAL ARTHROSCOPY ADAN W/CORACOACRM LIGM RLS 09/10/2013 Left shoulder arthroscopic Sub AC decompression Family History FAMILY HISTORY Problem Relation Age of Onset other (ulcers in colon [Other]) Mother Thyroid Mother Dementia Mother other (TIA [Other]) Father other (Heart problems [Other]) Father Stroke Father Heart Attack Father Alzheimer's Disease Father Parkinson s Disease Father No Known Problems Sister No Known Problems Sister No Known Problems Sister No Known Problems Sister No Known Problems Brother Diabetes Maternal Grandmother other (hypoglycemia [Other]) Other Maternal Side other (Ovarian Cyst [Other]) Other Maternal Side, sisters Coronary Artery Disease No Family History Hypertension No Family History Blood Clots No Family History DVT No Family History Factor 5 Leiden No Family History Blood Disease No Family History Systemic Lupus Erythematosus No Family History Multiple Sclerosis No Family History Bipolar disorder No Family History Schizophrenia No Family History Aneurysm No Family History COPD No Family History Patient Allergies ALLERGIES Allergen Reactions Fish Swelling, Shortness of Breath Morphine Mental Status Change, Other: See Comments Vicodin [Hydrocodon* Vomiting Aggrenox [Aspirin-D* Other: See Comments Headache Hydrocodone Bitartr* Other: See Comments Current Medications Current Outpatient Medications on File Prior to Visit Medication Sig TRELEGY ELLIPTA 200-62.5-25 mcg inhalation powder Inhale 1 Puff as instructed once daily. montelukast (SINGULAIR) 10 mg tablet Take 1 tablet by mouth daily at bedtime. (Patient not taking: Reported on 01/22/2024) atorvastatin (LIPITOR) 40 mg tablet Take 1 tablet by mouth daily at bedtime. For cholesterol. cholecalciferol (VITAMIN D3) 5,000 unit tab Take 1 tablet by mouth once daily. alendronate (FOSAMAX) 70 mg tablet Take 1 tablet by mouth one time a week. Take with a full glass of water, on an empty stomach; do NOT lie down for 30minutes. clopidogrel (PLAVIX) 75 mg tablet Take 1 tablet by mouth once daily. losartan (COZAAR) 25 mg tablet Take 1 tablet by mouth once daily. levothyroxine (SYNTHROID) 50 mcg tablet Take 1 tablet by mouth once daily. MOTION SICKNESS RELIEF,MECLIZ, 25 mg chewable tablet(s) Take 1 tablet by mouth three times a day as needed for dizziness. citalopram hydrobromide (CELEXA) 10 mg tablet Take 1 tablet by mouth once daily. alendronate (FOSAMAX) 70 mg tablet Take 1 tablet by mouth one time a week. Take with a full glass of water, on an empty stomach; do NOT lie down for 30minutes. albuterol HFA (PROVENTIL HFA, VENTOLIN HFA) 90 mcg/actuation inhaler inhale 2 puffs by mouth every 6 hours as needed for shortness of breath BREZTRI AEROSPHERE 160-9-4.8 mcg/actuation HFA aerosol inhaler Inhale 2 Puffs as instructed twice daily. levocetirizine 5 mg tablet Take 5 mg by mouth once daily. No current facility-administered medications on file prior to visit. Social History Social History Tobacco Use Smoking status: Former Current packs/day: 0.00 Average packs/day: 1.5 packs/day for 42.0 years (63.0 ttl pk-yrs) Types: Cigarettes Start date: 07/27/1978 Quit date: 07/27/2020 Years since quittin.5 Smokeless tobacco: Never Tobacco comments: d/c 07/27/2020 Vaping Use Vaping status: Never Used Substance Use Topics Alcohol use: No Drug use: No Review of Symptoms REVIEW OF SYSTEMS See HPI EXAM: BP 102/64 Pulse 79 Temp 36.9 C (98.4 F) Resp 18 Wt 77.1 kg (170 lb) SpO2 96% BMI 27.44 kg/m General Appearance: Well appearing, alert, in no acute distress, well-hydrated, well nourished.. Skin: Skin color, texture, turgor normal, no suspicious rashes or lesions. Lungs: Lungs clear to auscultation. No wheezing, rhonchi, rales.. Heart: RRR without murmur, gallop, or rubs. No ectopy. Abdomen: Abdomen soft. Bowel sounds normal. No masses, organomegaly, Positive findings: tenderness mild RLQ without guarding or rebound. Health Maintenance List BP Controlled (<130/80) Never done Advance Directive Discussion Never done Covid-19 Vaccine(3 - 2023- season) due on 01/28/2024 Influenza Vaccine(1) due on 01/28/2024 Mammogram Screening due on 02/24/2024 DTaP,Tdap,Td Vaccine(1 - Tdap) due on 06/27/2024 Shingrix Vaccine(2 of 2) due on 06/27/2024 RSV Vaccine(1 - Risk 60-74 years 1-dose series) due on 07/26/2024 Spirometry due on 10/24/2024 Lung Cancer Screening due on 03/14/2024 Hemoglobin/Hematocrit due on 07/26/2024 Annual PCP Team Chronic Disease Visit due on 10/24/2024 Serum Creatinine due on 10/24/2024 Diabetes Screening due on 10/24/2026 Lipid Screening due on 01/27/2028 Colorectal Cancer Screening due on 09/03/2033 Bone Density Screening Completed Pneumococcal Vaccine: 65+ Completed Alpha-1 Antitrypsin Deficiency Screening Discontinued Cervical Cancer Screening Discontinued Hepatitis C Screening Discontinued ASSESSMENT/PLAN: 1. Colitis - ICD9: 558.9, ICD10: K52.9 (primary diagnosis) Symptoms improving, but not resolved. Will extend her abx an additional 4 days to equal 14 days total and recheck labs as ordered today. Discussed OTC analgesics for pain, pushing PO fluids, bland diet. Red flags for re-assessment reviewed with patient in detail. - CIPROFLOXACIN 500 MG TABLET - METRONIDAZOLE 500 MG TABLET - COMPLETE BLOOD COUNT AND DIFFERENTIAL - COMPREHENSIVE METABOLIC PANEL - SEDIMENTATION RATE, WESTERGREN - C-REACTIVE PROTEIN 2. RLQ abdominal pain - ICD9: 789.03, ICD10: R10.31 Symptoms improving, but not resolved. Will extend her abx an additional 4 days to equal 14 days total and recheck labs as ordered today. Discussed OTC analgesics for pain, pushing PO fluids, bland diet. Red flags for re-assessment reviewed with patient in detail. 3. Rectal bleeding - ICD9: 569.3, ICD10: K62.5 Symptoms improving, but not resolved. Will extend her abx an additional 4 days to equal 14 days total and recheck labs as ordered today. Discussed OTC analgesics for pain, pushing PO fluids, bland diet. Red flags for re-assessment reviewed with patient in detail. 4. Nasal congestion - ICD9: 478.19, ICD10: R09.81 Discussed viral illness, possible COVID/flu/RSV, or allegic rhinitis. Will obtain swab today and call with results. Discussed OTC medications for symptom control and supportive care.Red flags for re-assessment reviewed with patient in detail. - COVID & INFLUENZA A/B & RSV PCR, ROUTINE 5. Rhinorrhea - ICD9: 478.19, ICD10: J34.89 See above. - COVID & INFLUENZA A/B & RSV PCR, ROUTINE Tatiana Ronquillo MD documented in this encounter [facility] 01-26-2024 Telephone encounter Note Pt called and is notified of providers results and instructions. Pt voices understanding. She states the swelling goes down over night, but when she gets back up the foot swells right back up, but it isn't painful. She states it's warm to the touch, but it isn't red denies fever or any streaking. Pt told that if it gets worse to call back or go to the ER over the weekend. Pt told to rest several times a day and elevate her feet and put a pillow or two under her legs to get them up and the swelling down. Pt voices understanding. Yumiko Sarkar RN [facility] 01-26-2024 Miscellaneous Notes Pt called and is notified of providers results and instructions. Pt voices understanding. She states the swelling goes down over night, but when she gets back up the foot swells right back up, but it isn't painful. She states it's warm to the touch, but it isn't red denies fever or any streaking. Pt told that if it gets worse to call back or go to the ER over the weekend. Pt told to rest several times a day and elevate her feet and put a pillow or two under her legs to get them up and the swelling down. Pt voices understanding. Yumiko Sarkar RN Dr. Ronquillo is out but yes it is negative. If her symptoms are not improving she will need office appointment. Shavonne Donato APRN.CNP Patient asking pcp to review and advise on recent US right leg done at [facility]. Did advise patient results show negative for DVT. documented in this encounter [facility] 01-26-[address] Ronquillo is out but yes it is negative. If her symptoms are not improving she will need office appointment. Shavonne Donato APRN.CNP [facility] 01-26-2024 Telephone encounter Note Patient asking pcp to review and advise on recent US right leg done at [facility]. Did advise patient results show negative for DVT. [facility] 01-24-2024 History of Present illness Narrative POPULATION HEALTH NAVIGATION OUTREACH Action/ FYI LVM MYCHART ANNUAL MEDICARE WELLNESS EXAM BP CONTROLLED MAMMOGRAMS after 02-23-23 HCC CLOSURE Reason for Outreach Care Gap/HCC or Scheduling Wellness Visits Care Gaps due: Medicare Annual Wellness Visit Breast Cancer Screening Controlling Blood Pressure Patient Contacted: Unable or unnecessary to reach patient: Left message [employer] message sent Navigation Signature: Becky Raygoza MA January 24, 2024 9:20 AM documented in this encounter [facility] 01-24-2024 Note HNO ID: [id number] Author: BECKY RAYGOZA MA Service: ? Author Type: Marine Technician Type: Progress Notes Filed: 01/24/2024 12:58 Note Text: POPULATION HEALTH NAVIGATION OUTREACH Action/ FYI LVM MYCHART ANNUAL MEDICARE WELLNESS EXAM BP CONTROLLED MAMMOGRAMS after 02-23-23 HCC CLOSURE Reason for Outreach Care Gap/HCC or Scheduling Wellness Visits Care Gaps due: Medicare Annual Wellness Visit Breast Cancer Screening Controlling Blood Pressure Patient Contacted: Unable or unnecessary to reach patient: Left message [employer] message sent Navigation Signature: Becky Raygoza MA January 24, 2024 9:20 AM [facility] 01-24-2024 Note Patient Outreach (NE TNAV) TEMITOPE HADDAD ([id number]) 1955 F [facility] Date Time Provider Department 01/24/24 BECKY RAYGOZA During your visit today, we recorded the following information about you: Becky Raygoza MA 01/24/2024 12:58 PM Signed POPULATION HEALTH NAVIGATION OUTREACH Action/ FYI LVM MYCHART ANNUAL MEDICARE WELLNESS EXAM BP CONTROLLED MAMMOGRAMS after 02-23-23 HCC CLOSURE Reason for Outreach Care Gap/HCC or Scheduling Wellness Visits Care Gaps due: Medicare Annual Wellness Visit Breast Cancer Screening Controlling Blood Pressure Patient Contacted: Unable or unnecessary to reach patient: Left message [employer] message sent Navigation Signature: Becky Raygoza MA January 24, 2024 9:20 AM Allergies As of Date: 01/24/2024 Noted Allergy Reaction FISH 07/10/2012 7 - Swelling 12 - Shortness of Breath MORPHINE 10/11/2011 1 - Mental Status Change 14 - Other: See Comments VICODIN (HYDROCODONE-ACETAMINOPHE* 012 11 - Vomiting AGGRENOX (ASPIRIN-DIPYRIDAMOLE) 01/31/2023 14 - Other: See Comments Comments: Headache HYDROCODONE BITARTRATE 04/24/2019 14 - Other: See Comments Date Reviewed: 01/22/2024 Reviewed by: Sabine Castanon RN - Fully Assessed Reason for Visit: Population Health Navigation Outreach [3910] Cmt: [facility] Prescriptions as of 01/24/2024 - TRELEGY ELLIPTA 200-62.5-25 mcg inhalation powder Inhale 1 Puff as instructed once daily. - montelukast (SINGULAIR) 10 mg tablet Take 1 tablet by mouth daily at bedtime. - atorvastatin (LIPITOR) 40 mg tablet Take 1 tablet by mouth daily at bedtime. For cholesterol. - cholecalciferol (VITAMIN D3) 5,000 unit tab Take 1 tablet by mouth once daily. - alendronate (FOSAMAX) 70 mg tablet Take 1 tablet by mouth one time a week. Take with a full glass of water, on an empty stomach; do NOT lie down for 30minutes. - clopidogrel (PLAVIX) 75 mg tablet Take 1 tablet by mouth once daily. - losartan (COZAAR) 25 mg tablet Take 1 tablet by mouth once daily. - levothyroxine (SYNTHROID) 50 mcg tablet Take 1 tablet by mouth once daily. - MOTION SICKNESS RELIEF,MECLIZ, 25 mg chewable tablet(s) Take 1 tablet by mouth three times a day as needed for dizziness. - citalopram hydrobromide (CELEXA) 10 mg tablet Take 1 tablet by mouth once daily. - alendronate (FOSAMAX) 70 mg tablet Take 1 tablet by mouth one time a week. Take with a full glass of water, on an empty stomach; do NOT lie down for 30minutes. - albuterol HFA (PROVENTIL HFA, VENTOLIN HFA) 90 mcg/actuation inhaler inhale 2 puffs by mouth every 6 hours as needed for shortness of breath - TARI ANDERSON 160-9-4.8 mcg/actuation HFA aerosol inhaler Inhale 2 Puffs as instructed twice daily. - levocetirizine 5 mg tablet Take 5 mg by mouth once daily. Meds Comments as of 11/07/2022: Problem List As Of Date 01/24/2024 Noted Resolved Suprapubic pain [R10.2] 10/11/2011 06/10/2013 Dysuria [R30.0] 10/11/2011 Screening for malignant neoplasm of the cervix *10/11/2011 10/11/2011 Hx of seasonal allergies [Z88.9] 04/09/2012 TIA (transient ischemic attack) [G45.9] 04/09/2012 Hiatal hernia [K44.9] 04/26/2012 Adhesive capsulitis of left shoulder [M75.02] 07/10/2012 Hyperlipidemia [E78.5] 08/29/2012 Depression [F32.A] 08/29/2012 Osteopenia [M85.80] 09/12/2012 Vitamin d deficiency [E55.9] 09/14/2012 Capsulitis, adhesive shoulder [M75.00] 09/18/2012 Rectal bleeding [K62.5] 01/11/2013 Abnormal EKG [R94.31] 07/31/2013 Headache, variant migraine [G43.809] 07/31/2013 Pain in joint, shoulder region [M25.519] 10/04/2013 Chest pain [R07.9] 02/16/2019 02/16/2019 History of CVA (cerebrovascular accident) [Z86.*02/16/2019 GERD (gastroesophageal reflux disease) [K21.9] 02/16/2019 Dizziness [R42] 05/07/2021 History of tobacco use [Z87.891] 01/26/2023 COPD (chronic obstructive pulmonary disease) (H*01/26/2023 HTN (hypertension) [I10] 01/26/2023 Hypothyroidism [E03.9] 01/26/2023 Seasonal allergies [J30.2] 01/26/2023 Stroke (HCC) [I63.9] 01/26/2023 Generalized anxiety disorder [F41.1] 01/26/2023 Coccyodynia [M53.3] 03/01/2023 Lumbar spondylosis [M47.816] 03/01/2023 Lung nodules [R91.8] 03/30/2023 Chronic kidney disease (CKD), stage III (modera*07/28/2023 Benign paroxysmal vertigo of right ear [H81.11] 10/03/2023 Heme positive stool [R19.5] 10/25/2023 Moderate recurrent major depression (HCC) [F33.*10/25/2023 Encounter Status:Closed by BECKY RAYGOZA on 01/24/24 [facility] 01-23-2024 History of Present illness Narrative Radiology Service Progress Note PATIENT NAME: Temitope Haddad DATE OF SERVICE: January 23, 2024 TIME: 5:23 PM PATIENT IDENTITY VERIFICATION COMPLETED USING TWO (2) IDENTIFIERS: Name and Date of confirmed by patient verbally. FALL SCREENING: Has the patient had 2 falls in the last year or 1 fall with injury or currently using an Ambulatory Assistive Device (Walker, Cane, Wheelchair, Crutches, etc.)? No PATIENT GENDER DATA: Female. status: : No status: NO. PATIENT RELEVANT IMPLANT DATA REVIEWED: Yes PATIENT PRESENTS WITH AN IMPLANTABLE OR ATTACHED SHEET PILE DRIVER OPERATOR: No RADIOLOGY DEPARTMENT: Ultrasound PERIPHERAL IV DATA: Not applicable SIGNED BY: Sharron Chand RDMS, GRISELDA January 23, 2024 5:23 PM documented in this encounter [facility] 01-23-2024 Note HNO ID: [id number] Author: SHARRON CHAND RT(R) Service: ? Author Type: Technologist Type: Progress Notes Filed: 01/23/2024 17:23 Note Text: Radiology Service Progress Note PATIENT NAME: Temitope Haddad DATE OF SERVICE: January 23, 2024 TIME: 5:23 PM PATIENT IDENTITY VERIFICATION COMPLETED USING TWO (2) IDENTIFIERS: Name and Date of confirmed by patient verbally. FALL SCREENING: Has the patient had 2 falls in the last year or 1 fall with injury or currently using an Ambulatory Assistive Device (Walker, Cane, Wheelchair, Crutches, etc.)? No PATIENT GENDER DATA: Female. status: : No status: NO. PATIENT RELEVANT IMPLANT DATA REVIEWED: Yes PATIENT PRESENTS WITH AN IMPLANTABLE OR ATTACHED SHEET PILE DRIVER OPERATOR: No RADIOLOGY DEPARTMENT: Ultrasound PERIPHERAL IV DATA: Not applicable SIGNED BY: Sharron Chand RDMS, RVT January 23, 2024 5:23 PM [facility] 01-22-2024 Note HNO ID: [id number] Author: IRMA GUEVARA APRN.ENVIRONMENTAL PROJECTS ADVISOR Service: ? Author Type: Nurse Practitioner Type: Progress Notes Filed: 01/22/2024 17:43 Note Text: Patient came in with complaints of right calf pain and ankle pain. Patient says she was sleeping in her significant other heard a pop. Patient says it is extremely painful to walk on it. Patient is limping while walking. Patient is calf is extremely tender when palpated very lightly. Patient did jump with this. Due to patient's history of stroke, smoking, and hyperlipidemia patient is being referred to the ER. Patient says she was at the ER but the wait was long so she came here. Patient is being referred back to the ER for a evaluation and possible ultrasound to rule out a DVT. Patient was okay with this and caregiver will take her now. [facility] 01-22-2024 History of Present illness Narrative Patient came in with complaints of right calf pain and ankle pain. Patient says she was sleeping in her significant other heard a pop. Patient says it is extremely painful to walk on it. Patient is limping while walking. Patient is calf is extremely tender when palpated very lightly. Patient did jump with this. Due to patient's history of stroke, smoking, and hyperlipidemia patient is being referred to the ER. Patient says she was at the ER but the wait was long so she came here. Patient is being referred back to the ER for a evaluation and possible ultrasound to rule out a DVT. Patient was okay with this and caregiver will take her now. documented in this encounter [facility] 01-17-2024 Telephone encounter Note Prescription Refill Information The patient has been identified by name and date of : Yes Caregiver verified no other encounters exist for this prescription request: Yes Caregiver confirmed with patient/requestor that no other refills are due, in the near future, with this provider at this time: Yes The last office visit in the department: 10/25/23 Does the patient have a future office visit with this provider/department: Yes Requested Prescriptions Pending Prescriptions Disp Refills montelukast (SINGULAIR) 10 mg tablet 30 tablet 2 Sig: Take 1 tablet by mouth daily at bedtime. Carol Mena January 17, 2024 12:46 PM [facility] 01-17-2024 Miscellaneous Notes Prescription Refill Information The patient has been identified by name and date of : Yes Caregiver verified no other encounters exist for this prescription request: Yes Caregiver confirmed with patient/requestor that no other refills are due, in the near future, with this provider at this time: Yes The last office visit in the department: 10/25/23 Does the patient have a future office visit with this provider/department: Yes Requested Prescriptions Pending Prescriptions Disp Refills montelukast (SINGULAIR) 10 mg tablet 30 tablet 2 Sig: Take 1 tablet by mouth daily at bedtime. Carol Mena January 17, 2024 12:46 PM documented in this encounter [facility] 01-17-2024 Telephone encounter Note Left detailed vm on identified vm with provider's message below. [facility] 01-17-2024 Miscellaneous Notes Left detailed vm on identified vm with provider's message below. Insurance requesting 40 mg lipitor instead of two 20 mg pills. Rx sent. documented in this encounter [facility] 01-16-2024 Telephone encounter Note Insurance requesting 40 mg lipitor instead of two 20 mg pills. Rx sent. [facility] 01-11-2024 Telephone encounter Note Prescription Refill Information The patient has been identified by name and date of : Yes Caregiver verified no other encounters exist for this prescription request: Yes Caregiver confirmed with patient/requestor that no other refills are due, in the near future, with this provider at this time: Yes The last office visit in the department: 10-25-23 Does the patient have a future office visit with this provider/department: Yes Requested Prescriptions Pending Prescriptions Disp Refills atorvastatin (LIPITOR) 20 mg tablet 30 tablet 11 Sig: Take 2 tablets by mouth daily at bedtime. For cholesterol. Karolina Mena January 11, 2024 2:19 PM [facility] 01-11-2024 Miscellaneous Notes Prescription Refill Information The patient has been identified by name and date of : Yes Caregiver verified no other encounters exist for this prescription request: Yes Caregiver confirmed with patient/requestor that no other refills are due, in the near future, with this provider at this time: Yes The last office visit in the department: 10-25-23 Does the patient have a future office visit with this provider/department: Yes Requested Prescriptions Pending Prescriptions Disp Refills atorvastatin (LIPITOR) 20 mg tablet 30 tablet 11 Sig: Take 2 tablets by mouth daily at bedtime. For cholesterol. Karolina Mean January 11, 2024 2:19 PM documented in this encounter [facility] 01-08-2024 Telephone encounter Note Pt calling requesting a refill of her Fosamax. Advised pt this was sent to pharm 11/24/23 Qty: 12 with 3 refills and this is enough refill for 1 year. Pt verbalizes understanding and will check with [facility] and contact office if any problems in refilling. Evelyne Ingram LPN [facility] 01-08-2024 Miscellaneous Notes Pt calling requesting a refill of her Fosamax. Advised pt this was sent to pharm 11/24/23 Qty: 12 with 3 refills and this is enough refill for 1 year. Pt verbalizes understanding and will check with [facility] and contact office if any problems in refilling. Evelyne Ingram LPN documented in this encounter [facility] 11-23-2023 Telephone encounter Note Patient has been identified by name and date of : Patient phones for refill(s): Requested Prescriptions Pending Prescriptions Disp Refills cholecalciferol (VITAMIN D3) 5,000 unit tab 90 tablet 1 Sig: Take 1 tablet by mouth once daily. alendronate (FOSAMAX) 70 mg tablet 12 tablet 3 Sig: Take 1 tablet by mouth one time a week. Take with a full glass of water, on an empty stomach; do NOT lie down for 30minutes. Date of last office visit in primary care: 10/25/2023 Date of next office visit in primary care: 04/29/2024 Please advise. Thank you. Desirae Donis. [facility] 11-23-2023 Miscellaneous Notes Patient has been identified by name and date of : Patient phones for refill(s): Requested Prescriptions Pending Prescriptions Disp Refills cholecalciferol (VITAMIN D3) 5,000 unit tab 90 tablet 1 Sig: Take 1 tablet by mouth once daily. alendronate (FOSAMAX) 70 mg tablet 12 tablet 3 Sig: Take 1 tablet by mouth one time a week. Take with a full glass of water, on an empty stomach; do NOT lie down for 30minutes. Date of last office visit in primary care: 10/25/2023 Date of next office visit in primary care: 04/29/2024 Please advise. Thank you. Desirae Donis. documented in this encounter [facility] 10-26-2023 Telephone encounter Note reviewed results and recommendations with patient. Patient voiced understanding. Talita Preston LPN [facility] 10-26-2023 Miscellaneous Notes reviewed results and recommendations with patient. Patient voiced understanding. Talita Preston LPN ----- Message from Tatiana Ronquillo MD sent at 10/26/2023 9:34 AM EDT ----- A1c remains borderline prediabetic range at 5.7. work on low carb diet and regular exercise. Recheck in 6 months. CKD stable. Recommend low sodium diet <2,000 mg per day, avoidance of NSAIDs, and increased water intake. Other labs normal. documented in this encounter [facility] 10-26-2023 Telephone encounter Note ----- Message from Tatiana Ronquillo MD sent at 10/26/2023 9:34 AM EDT ----- A1c remains borderline prediabetic range at 5.7. work on low carb diet and regular exercise. Recheck in 6 months. CKD stable. Recommend low sodium diet <2,000 mg per day, avoidance of NSAIDs, and increased water intake. Other labs normal. [facility] 10-25-2023 History of Present illness Narrative Chief Complaint Patient presents with: 3 month follow up HPI Temitope Haddad is a 68 year old female who presents here today for Above Complaints. Patient complaining of seasonal allergies which started in August with nasal congestion, rhinorrhea, maxillary sinus pain/pressure, itchy/watery eyes, sneezing, occasional epistaxis after blowing her nose. Taking xyzal OTC without much relief. Has not tried nasal steroid since she doesn't like the spray. Denies fever/chills, cough, wheezing, SOB, sore throat. A1c borderline elevated on last check. Has been working more on eating low carb diet. Due for repeat labs. COPD managed by Dr. Wallace. Symptoms controlled on Triple Therapy. Rare use of albuterol with exposure to cold air which does help with SOB. Denies cough or wheezing today. Celexa working well for anxiety/depression. Hypothyroidism: Taking synthroid as prescribed without side effects. Asymptomatic on current regimen. BP well controlled on current regimen. Checking at home occasionally with readings in the 120's/60-70. Past medical history, appointments, medications, allergies reviewed. Previous Medical History PAST MEDICAL HISTORY Diagnosis Date Abdominal pain, right lower quadrant Benign neoplasm of colon Chronic kidney disease (CKD), stage III (moderate) ([facility]) COPD (chronic obstructive pulmonary disease) ([facility]) Dr. Love Depression Dysuria Generalized anxiety disorder GERD (gastroesophageal reflux disease) Hiatal hernia 09/09/2023 moderate History of colonic polyps History of tobacco use HTN (hypertension) Hyperlipemia Hypothyroidism Impaired fasting blood sugar Left leg pain Leiomyoma of uterus, unspecified very mild changes seen on sono Lung nodules 03/30/2023 Patient requesting to f/u with pulm for repeat imaging. Osteopenia 02/13/2023 Seasonal allergies Skin graft hematoma Left leg, managed by plastic surgery Stroke ([facility]) x 4 Suprapubic pain Vitamin D deficiency Previous Surgical History PAST SURGICAL HISTORY Procedure Laterality Date BREAST BIOPSY 05/29/1997 (L) breast biopsy- Dr. Logan COLONOSCOPY 2021 Dr. Barakat-1 polyp removed COLONOSCOPY FLX DX W/COLLJ SPEC WHEN PFRMD 10/17/2012 Colonoscopy ESOPHAGOGASTRODUODENOSCOPY TRANSORAL DIAGNOSTIC 10/17/2012 EGD LIG/TRNSXJ FLP TUBE ABDL/VAG APPR UNI/BI 05/29/1982 PAST SURGICAL HISTORY OF left shoulder manipulation PAST SURGICAL HISTORY OF Left skin graft of left upper leg REMV CATARACT EXTRACAP,INSERT LENS Bilateral 2013, 2014 SURGICAL ARTHROSCOPY ADAN W/CORACOACRM LIGM RLS 09/10/2013 Left shoulder arthroscopic Sub AC decompression Family History FAMILY HISTORY Problem Relation Age of Onset other (ulcers in colon [Other]) Mother Thyroid Mother Dementia Mother other (TIA [Other]) Father other (Heart problems [Other]) Father Stroke Father Heart Attack Father Alzheimer's Disease Father Parkinson s Disease Father No Known Problems Sister No Known Problems Sister No Known Problems Sister No Known Problems Sister No Known Problems Brother Diabetes Maternal Grandmother other (hypoglycemia [Other]) Other Maternal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 cholesterol CVA (cerebral vascular accident) Surgical History History of bilateral cataract extraction History of right breast biopsy History of shoulder surgery History of surgery on lower extremity History of tubal ligation Social History household members: significant other housing: apartment pets and animals: Yes pets and animals: dog(s) Smoking Status: Former smoker quit date: 10/28/19 pack-years: 25 Tobacco: How many years used: 25 second hand exposure: Yes alcohol intake: never substance use type: does not use caffeine: Yes Type: coffee Number of servings: 1 ROS ROS ED Constitutional Constitutional ED: Denies chills or fever(s) Musculoskeletal Musculoskeletal: Reports as per HPI; Denies neck pain Integumentary Reports pruritus; Denies Abrasions, rash or wounds Neurologic Neurologic: Denies paresthesias or weakness EXAM Physical Exam Const Vital Signs: 09/29/23 17:17 Temperature 97.8 F Temperature Source Temporal Pulse Rate 76 Respiratory Rate 18 Blood Pressure 140/119 H Blood Pressure Mean 126 Pulse Ox 97 Oxygen Delivery Method Room Air Positive well nourished and well developed General Appearance ED: well developed and NAD Neck full ROM and supple Back/Spine normal ROM and normal to inspection Extremity normal to inspection and full ROM Extremity Narrative: In the left medial calf, there is a small subcutaneous nodule that is focal it is not a palpable cord, she does have a couple very small varicose veins but notin that immediate area. There are some excoriations from the patient scratchingit over top of it but no erythema/cellulitis/induration. No fluctuance. It is for the most part nontender. All compartment soft and nondistended, full range of motion. Neuro oriented x3, no focal motor deficits and no sensory deficits noted Sensorium / Orientation: alert Psych mental status grossly normal and thought process normal Skin no wounds Rashes: no rashes MDM MDM MDM Narrative Medical decision making narrative: I think this is a mosquito bite. Worst-case scenario could be a superficial venous thrombosis associated with the varicose vein, I would recommend topical hydrocortisone cream which they have at home, as well as warm/hot compresses, I do not think she needs an emergent ultrasound, as she has low risk for venous thrombosis especially being on aspirin and clopidogrel. She agrees and is comfortable with that plan. We discussed reasons to return to the ER especiallyif it looks to be worsening like an infection but I do not think this is an abscess. She does not have a history of MRSA abscesses. Discharge Plan Triage Chief Complaint: Lower Extremity Injury ED Provider: Rl Britt Dx/Rx/DC Orders Clinical Impression: Insect bite of left lower leg Instructions: ED Insect Bite Prescriptions: No Action cholecalciferol (vitamin D3) 5,000 unit capsule 5,000 unit PO DAILY levothyroxine 50 mcg tablet 50 mcg PO DAILY atorvastatin 40 mg tablet 40 mg PO DAILY losartan 25 mg tablet 25 mg PO DAILY Qty: 90 3RF albuterol sulfate 90 mcg/actuation HFA aerosol inhaler 2 puff inhalation Q6H PRN (Reason: Shortness Of Breath) Qty: 3 3RF levocetirizine [Allergy Relief (levocetirizin)] 5 mg tablet 5 mg PO DAILY Qty: 90 3RF clopidogrel 75 MG tablet 75 mg PO DAILY 30 Days Qty: 30 0RF alendronate 70 mg tablet 70 mg PO Q7D Patient Comments: PLEASE SEE ATTACHED FOR DETAILED DIRECTIONS citalopram 10 mg tablet 10 mg PO DAILY cholecalciferol (vitamin D3) 125 mcg (5,000 unit) tablet 125 mcg PO DAILY meclizine 25 mg tablet,chewable 25 mg PO TID PRN (Reason: dizziness) Qty: 30 0RF Breztri Aerosphere 160-9-4.8 mcg/actuation HFA aerosol inhaler 2 inh inhalation BID Qty: 3 3RF Primary Care Provider: Bird Ronquillo Referrals: iBrd Ronquillo MD [Primary Care Provider] - Activity Restrictions/Additional Instructions: May spread hydrocortisone on the affected area 2-3 times daily as needed, also may try hot compresses 3 times daily over the weekend to see if that helps as well. Disposition Disposition: Home, Self Care What to do if you have Problems For any increased pain, shortness of breath, bleeding, nausea or vomiting, chestpain, or any unexpected problems, contact your Primary Care Provider. Call [facility] ([phone]) or report to the closest Emergency Room. Call 911 if necessary. 09/29/23 175 <Electronically signed by Rl Britt MD> Cosigner Signature (if applicable): CC: Dr. Bird Ronquillo MD ~ Signed [facility] Work Phone: [phone]) 962-924805-03-2024 Hospital Discharge instructions Additional Instructions May spread hydrocortisone on the affected area 2-3 times daily as needed, also may try hot compresses 3 times daily over the weekend to see if that helps as well.[facility] Work Phone: [phone]) 828-243204-18-2024 Miscellaneous Notes* Telephone Encounter - Taltia Preston LPN - 09/14/2023 9:48 AM EDT Phoned patient and reviewed results and recommendations with her. Patient voiced understanding. Talita Preston LPN * Telephone Encounter - Talita Preston LPN - 09/14/2023 9:46 AM EDT ----- Message from Tatiana Ronquillo MD sent at 09/14/2023 9:01 AM EDT ----- CKD stable in stage IIIa range. Recommend low sodium diet <2,000 mg per day, avoidance of NSAIDs, and increased water intake. documented in this encounterGerman [facility]04-15-[facility]24 History of Present illness Narrative* Tatiana Ronquillo MD - 09/11/2023 4:21 PM EDT Chief Complaint Patient presents with: Dizziness: Continues/ with continuous ringing in right ear Refill Request: antivert HPI Temitope Haddad is a 68 year old female who presents here today for Above Complaints. Patient here today with complaint of vertigo which started over a month ago. Was evaluated in the [facility] ER on 08/13 for intermittent vertigo which was exacerbated with position changes. Blood work and exam normal. Diagnosed with vertigo and given rx for Antivert for PRN. Today, she states that she continues to have vertigo when going from lying to standing and with turning her head to the right. Symptoms last about 1 minutes. Associated with tinnitus in her right earwithout hearing loss. Has been taking Antivert first thing in the morning and occasionally in the evening. Seems to be helping with her symptoms. Denies headache, vision changes, nausea/vomiting, slurred speech, facial droop, numbness/tingling/weakness, fall, head injury. Noted that she was evaluated at the end of 2020 for vertigo by ENT and neurology with negative workup including MRI of the brain. Neurology had recommended trial of vestibular therapy at the time. Past medical history, appointments, medications, allergies reviewed. Previous Medical History PAST MEDICAL HISTORY Diagnosis Date Abdominal pain, right lower quadrant Benign neoplasm of colon Chronic kidney disease (CKD), stage III (moderate) ([facility]) COPD (chronic obstructive pulmonary disease) ([facility]) Dr. Love Depression Dysuria Generalized anxiety disorder GERD (gastroesophageal reflux disease) Hiatal hernia 09/09/2023 moderate History of colonic polyps History of tobacco use HTN (hypertension) Hyperlipemia Hypothyroidism Impaired fasting blood sugar Left leg pain Leiomyoma of uterus, unspecified very mild changes seen on sono Lung nodules 03/30/2023 Patient requesting to f/u with pulm for repeat imaging. 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 Logan COLONOSCOPY 2021 Dr. Barakat-1 polyp removed COLONOSCOPY FLX DX W/COLLJ SPEC WHEN PFRMD 10/17/2012 Colonoscopy ESOPHAGOGASTRODUODENOSCOPY TRANSORAL DIAGNOSTIC 10/17/2012 EGD LIG/TRNSXJ FLP TUBE ABDL/VAG APPR UNI/BI 05/29/1982 PAST SURGICAL HISTORY OF left shoulder manipulation PAST SURGICAL HISTORY OF Left skin graft of left upper leg REMV CATARACT EXTRACAP,INSERT LENS Bilateral 2013, 2014 SURGICAL ARTHROSCOPY ADAN W/CORACOACRM LIGM RLS 09/10/2013 Left shoulder arthroscopic Sub AC decompression Family History FAMILY HISTORY Problem Relation Age of Onset other (ulcers in colon [Other]) Mother Thyroid Mother Dementia Mother other (TIA [Other]) Father other (Heart problems [Other]) Father Stroke Father Heart Attack Father Alzheimer's Disease Father Parkinson s Disease Father No Known Problems Sister No Known Problems Sister No Known Problems Sister No Known Problems Sister No Known Problems Brother Diabetes Maternal Grandmother other (hypoglycemia [Other]) Other Maternal Side other (Ovarian Cyst [Other]) Other Maternal Side, sisters Coronary Artery Disease No Family History Hypertension No Family History Blood Clots No Family History DVT No Family History Factor 5 Leiden No Family History Blood Disease No Family History Systemic Lupus Erythematosus No Family History Multiple Sclerosis No Family History Bipolar disorder No Family History Schizophrenia No Family History Aneurysm No Family History COPD No Family History Patient Allergies ALLERGIES Allergen Reactions Fish Swelling, Shortness of Breath Morphine Mental Status Change, Other: See Comments Vicodin [Hydrocodon* Vomiting Aggrenox [Aspirin-D* Other: See Comments Headache Hydrocodone Bitartr* Other: See Comments Current Medications Current Outpatient Medications on File Prior to Visit Medication Sig MOTION SICKNESS RELIEF,MECLIZ, 25 mg chewable tablet(s) Take 25 mg by mouth three times a day as needed. citalopram hydrobromide (CELEXA) 10 mg tablet Take 1 tablet by mouth once daily. clopidogrel (PLAVIX) 75 mg tablet Take 1 tablet by mouth once daily. cholecalciferol (VITAMIN D3) 5,000 unit tab Take 1 tablet by mouth once daily. levothyroxine (SYNTHROID) 50 mcg tablet Take 1 tablet by mouth once daily. atorvastatin (LIPITOR) 20 mg tablet Take 2 tablets by mouth daily at bedtime. For cholesterol. alendronate (FOSAMAX) 70 mg tablet Take 1 tablet by mouth one time a week. Take with a full glass of water, on an empty stomach; do NOT lie down for 30minutes. losartan (COZAAR) 25 mg tablet Take 1 tablet by mouth once daily. albuterol HFA (PROVENTIL HFA, VENTOLIN HFA) 90 mcg/actuation inhaler inhale 2 puffs by mouth every 6 hours as needed for shortness of breath TAIR AEROSPHERE 160-9-4.8 mcg/actuation HFA aerosol inhaler Inhale 2 Puffs as instructed twice daily. levocetirizine 5 mg tablet Take 5 mg by mouth once daily. No current facility-administered medications on file prior to visit. Social History Social History Tobacco Use Smoking status: Former Packs/day: 1.50 Years: 42.00 Additional pack years: 0.00 Total pack years: 63.00 Types: Cigarettes Quit date: 07/27/2020 Years since quittin.1 Smokeless tobacco: Never Tobacco comments: d/c 07/27/2020 Vaping Use Vaping Use: Never used Substance Use Topics Alcohol use: No Drug use: No Review of Symptoms REVIEW OF SYSTEMS See HPI EXAM: BP 106/66 Pulse 71 Resp 16 Wt 77 kg (169 lb 12.8 oz) SpO2 93% BMI 27.41 kg/m General Appearance: Well appearing, alert, in no acute distress, well-hydrated, well nourished.. Skin: Skin color, texture, turgor normal, no suspicious rashes or lesions. Ears: External ears normal, canals clear. Neck: Supple, no adenopathy; thyroid symmetric, normal size, no bruits. Lungs: Lungs clear to auscultation. No wheezing, rhonchi, rales.. Heart: RRR without murmur, gallop, or rubs. No ectopy. Neurologic: Negative findings: speech normal, mental status intact, cranial nerves 2-12 intact, muscle tone normal, muscle strength normal, sensation to light touch and pinprick normal, reflexes normal and symmetric, Head Impulse Stim testing, Positive findings: Vidal Halpike to the right. Health Maintenance List Spirometry Never done Hepatitis C Screening Never done BP Controlled (<130/80) Never done Alpha-1 Antitrypsin Deficiency Screening Never done Advance Directive Discussion Never done DTaP,Tdap,Td Vaccine(1 - Tdap) due on 06/27/2024 Shingrix Vaccine(2 of 2) due on 06/27/2024 Covid-19 Vaccine( season) due on 06/27/2024 RSV Vaccine(1 - 1-dose 60+ series) due on 07/26/2024 Influenza Vaccine(Season Ended) due on 01/28/2024 Mammogram Screening due on 02/24/2024 Lung Cancer Screening due on 03/14/2024 Annual PCP Team Chronic Disease Visit due on 07/26/2024 Serum Creatinine due on 07/26/2024 Hemoglobin/Hematocrit due on 07/26/2024 Diabetes Screening due on 07/26/2026 Lipid Screening due on 01/27/2028 Colorectal Cancer Screening due on 09/03/2033 Bone Density Screening Completed Pneumococcal Vaccine: 65+ Completed Pap Testing Discontinued ASSESSMENT/PLAN: 1. Benign paroxysmal positional vertigo of right ear - ICD9: 386.11, ICD10: H81.11 Symptoms and exam consistent with BPPV. Refill meclizine for PRN use. Turn head and change positionslowly. Referral to PT for yohan maneuvers. Red flags for re- assessment reviewed with patient in detail. - MOTION SICKNESS RELIEF (MECLIZINE) 25 MG CHEWABLE TABLET - CONSULT TO PHYSICAL THERAPY Tatiana Ronquillo MD documented in this encounterGerman Hospital04-13-2024 Miscellaneous Notes* Telephone Encounter - Tatiana Ronquillo MD - 09/09/2023 8:14 AM EDT Reviewed. * Telephone Encounter - Antoine Lipscomb MD - 09/06/2023 9:21 AM EDT FOLLOW UP ENDOSCOPY - RESULTS AND RECOMMENDATIONS NAME: Temitope Haddad CLINIC NO.: [id number] : 1955 DATE: September 06, 2023 PRIMARY CARE PROVIDER: Tatiana Ronquillo MD Temitope Haddad is a patient referred for endoscopy for epigastric pain and occasional blood in stools. I performed upper and lower endoscopy on September 04, 2023. The patient was found to have: Upper Endoscopy Impression: - Normal examined jejunum. - Normal examined duodenum. - Gastritis. Biopsied. - Medium-sized hiatal hernia. - Esophageal mucosal changes consistent with short-segment Faust's esophagus. Biopsied. Lower Endoscopy Impression: - The entire examined colon is normal on direct and retroflexion views. - No specimens collected. She was prescribed Prilosec 40 mg a day Pathology demonstrated: FINAL DIAGNOSIS A. Stomach, biopsy: -Gastric antral mucosa with no diagnostic abnormality. -No morphologic evidence of Helicobacter pylori. B. Esophagus, distal, biopsy: -Squamous epithelium with mild reactive change and parakeratosis. -No glandular epithelium present. IMPRESSION: Epigastric pain, small hiatal hernia, mild gastritis and distal esophagitis, normal colonoscopy PLAN: INSTRUCTIONS FOLLOWING A NORMAL COLONOSCOPY 10YR I discussed with you the findings of your colonoscopy. Since there were no worrisome abnormalities,I recommend you undergo repeat endoscopic screening every 10 years. This is the current recommendation for colon cancer screening. If you note bleeding, change in bowel habits, or other suspicious colon related symptoms before that time, those symptoms should be evaluated as necessary. INSTRUCTIONS FOR GERD WITH NORMAL ENDOSCOPY I discussed with you the findings of your upper endoscopy. Since there were no worrisome abnormalities, I recommend you undergo repeat endoscopic evaluation as symptoms dictate. Your presenting complaints are consistent with gastroesophageal reflux disease (GERD). GERD is diagnosed based on symptoms of reflux. Your esophagus can look normal at upper endoscopy and you still have GERD. Multiple factors effect GERD symptoms - acid production, obesity, smoking, food consumption, and time of meals Factors that increase acid production include smoking and stress. If you smoke, stopping smoking will often cure these issues without needing other medications. Over the counter medications including antiacids and acid reducing medications including H2 blockers (Zantac and the like) and proton pump inhibitors (prilosec, prevacid and the like) neutralize or prevent acid production. Prescription strength proton pump inhibitors (PPIs) may be necessary if your symptoms persist. Carafate may be added to PPI treatment in refractory cases. Avoiding smoking, alcohol and antiinflammatory medications are important in the successful treatment of reflux esophagitis and peptic diseases. Other factors that contribute to GERD and esophagitis are being overweight, eating large meals before laying down and certain foods. Weight loss will help improve many GERD complaints. Remaining upright after eating large meals and having a small supper will also help symptoms. Avoiding food that contribute to reflux - chocolate, caffeine, cheddar cheese may also help. New or worsening symptoms such are epigastric pain, burning, difficulty swallowing or food stickingshould be relayed to your physician. Feeling full early after eating, or black, tarry, foul smelling stools are also worrisome. If you have any difficulties or concerns, you should contact our office immediately. The patient is instructed to follow-up with your primary care provider I have instructed my staff to forward the above information to the patient and to the appropriate providers documented in this encounterGerman Hospital04-12-2024 Miscellaneous Notes* Telephone Encounter - Yumiko Sarkar RN - 09/08/2023 9:29 AM EDT Called and left a detailed voicemail notifying patient of providers message. Clinic phone number was left in case patient had any questions and to schedule an appointment. Yumiko Sarkar RN * Telephone Encounter - Tatiana Ronquillo MD - 09/07/2023 5:02 PM EDT I dont see where she has been prescribed either of these medications by the [facility]. If she is having new dizziness, needs OV for evaluation in 24 hours. Should go to the ER with persistent dizziness, severe headache, passing out, head injury, vision changes, slurred speech, or facial droop. * Telephone Encounter - Yumiko Sarkar RN - 09/07/2023 4:23 PM EDT Pt called with Michael a customer success representative from [facility]. She said provider would need to send in a PA to get this medication covered for the Pt. Pt states she had received it from the hospital last time she was in because she was so dizzy. The [facility] provider line is [phone] incause the provider had any questions. She had also asked to have Prilosec 40 mg ordered with a PA, did not see on Pts medication list. Pt states Dr Webb had ordered it for her. I let the Pt know she would need to go through him to get it ordered, unless PCP is willing to send it in for her. Patient has been identified by name and date of : Yes, Provider Dr Ronquillo Date 09/07/23 Time 1624. Patient phones for refill(s): Requested Prescriptions Pending Prescriptions Disp Refills MOTION SICKNESS RELIEF,MECLIZ, 25 mg chewable tablet(s) Sig: Take 1 tablet by mouth three times a day as needed. Date of last office visit in primary care: 07/27/2023 Date of next office visit in primary care: 10/25/2023 Please advise. Thank you. Yumiko Sarkar RN. documented in this encounterGerman Hospital04-08-2024 History and physical note * Antoine Lipscomb MD - 09/04/2023 2:00 PM EDT UPDATED PROCEDURAL SEDATION HISTORY AND PHYSICAL EXAMINATION SERVICE DATE: 09/04/2023 SERVICE TIME: 1:17 PM PHYSICAL EXAM MUST BE COMPLETED ON ADMISSION PROCEDURE: Procedure Indications: The History and Physical (completed in the past 30 days) has been reviewed and the patient has beenexamined. The contents accurately reflect the patient's condition with the following additions or revisions since the H&P was completed. ASA Class: ASA Class:: Patient with severe systemic disease Examination indicates no changes. AIRWAY: Airway Visualization of Uvula: Yes Mouth opening greater than 2 fingerbreadths: Yes Neck Full Range of Motion: Yes LUNGS: Lungs clear to auscultation CARDIAC: Regular rhythm,Regular rate Provisional Diagnosis/Treatment Plan: epigastric pain, occasional blood per rectum - EGD and colonoscopy SEDATION GOAL: Moderate This H&P can be found in the attached. SIGNATURE: Antoine Lipscomb MD PATIENT NAME: Temitope Haddad DATE: September 04, 2023 TIME: 1:16 PM Source Note - Antoine Lipscomb MD - 09/04/2023 2:00 PM EDT Images from the original note were not included. HISTORY AND PHYSICAL Temitope Haddad 1955 REFERRING PHYSICIAN: Tatiana Ronquillo,* CHIEF COMPLAINT: Consult (BRBPR) HPI: The patient is a 68 year old female referred for endoscopy. Temitope notes occasional blood in her stools The patient notes epigastric pain with some reflux issues Temitpoe has undergone prior endoscopy. The patient underwent colonoscopy in 2012 and was found to have 2 polyps at that time. She denies a family history of colon cancer. She has a history of renal insufficiency COPD hypertension tobacco use and multiple CVAs. She is onPlavix. The patient is being seen by me today at the request of Dr. Tatiana Ronquillo MD for my opinion and advice regarding blood in her stools reflux history of polyps with multiple medical comorbidities on blood thinners.. PAST MEDICAL HISTORY PAST MEDICAL HISTORY Diagnosis Date Abdominal pain, right lower quadrant Benign neoplasm of colon Chronic kidney disease (CKD), stage III (moderate) ([facility]) [facility] [facility]) Dr. Love Depression Dysuria Generalized anxiety disorder GERD (gastroesophageal reflux disease) History of colonic polyps History of tobacco use HTN (hypertension) Hyperlipemia Hypothyroidism Impaired fasting blood sugar Left leg pain Leiomyoma of uterus, unspecified very mild changes seen on sono Lung nodules 03/30/2023 Patient requesting to f/u with pulm for repeat imaging. Osteopenia 02/13/2023 Seasonal allergies Skin graft hematoma Left leg, managed by plastic surgery Stroke (HCC) x 4 Suprapubic pain Vitamin D deficiency PAST SURGICAL HISTORY PAST SURGICAL HISTORY Procedure Laterality Date BREAST BIOPSY 05/29/1997 (L) breast biopsy- Dr. Logan COLONOSCOPY 2021 Dr. Barakat-1 polyp removed COLONOSCOPY FLX DX W/COLLJ SPEC WHEN PFRMD 10/17/2012 Colonoscopy ESOPHAGOGASTRODUODENOSCOPY TRANSORAL DIAGNOSTIC 10/17/2012 EGD LIG/TRNSXJ FLP TUBE ABDL/VAG APPR UNI/BI 05/29/1982 PAST SURGICAL HISTORY OF left shoulder manipulation PAST SURGICAL HISTORY OF Left skin graft of left upper leg REMV CATARACT EXTRACAP,INSERT LENS Bilateral 2013, 2014 SURGICAL ARTHROSCOPY ADAN W/CORACOACRM LIGM RLS 09/10/2013 Left shoulder arthroscopic Sub AC decompression CURRENT MEDICATIONS Current Outpatient Medications Medication Sig MOTION SICKNESS RELIEF,MECLIZ, 25 mg chewable tablet(s) Take 25 mg by mouth three times a day as needed. citalopram hydrobromide (CELEXA) 10 mg tablet Take 1 tablet by mouth once daily. clopidogrel (PLAVIX) 75 mg tablet Take 1 tablet by mouth once daily. cholecalciferol (VITAMIN D3) 5,000 unit tab Take 1 tablet by mouth once daily. levothyroxine (SYNTHROID) 50 mcg tablet Take 1 tablet by mouth once daily. atorvastatin (LIPITOR) 20 mg tablet Take 2 tablets by mouth daily at bedtime. For cholesterol. diclofenac (VOLTAREN ARTHRITIS PAIN) 1 % topical gel Apply 4 g to affected area four times daily. alendronate (FOSAMAX) 70 mg tablet Take 1 tablet by mouth one time a week. Take with a full glass of water, on an empty stomach; do NOT lie down for 30minutes. losartan (COZAAR) 25 mg tablet Take 1 tablet by mouth once daily. albuterol HFA (PROVENTIL HFA, VENTOLIN HFA) 90 mcg/actuation inhaler inhale 2 puffs by mouth every 6 hours as needed for shortness of breath BREZTRI AEROSPHERE 160-9-4.8 mcg/actuation HFA aerosol inhaler Inhale 2 Puffs as instructed twice daily. levocetirizine 5 mg tablet Take 5 mg by mouth once daily. No current facility-administered medications for this visit. ALLERGIES: Fish, Morphine, Vicodin [Hydrocodone-Acetaminophen], Aggrenox [Aspirin-Dipyridamole], and Hydrocodone Bitartrate PERSONAL HISTORY: SOCIAL HISTORY Social History Tobacco Use Smoking status: Former Packs/day: 1.50 Years: 42.00 Additional pack years: 0.00 Total pack years: 63.00 Types: Cigarettes Quit date: 07/27/2020 Years since quittin.0 Smokeless tobacco: Never Tobacco comments: d/c 07/27/2020 Vaping Use Vaping Use: Never used Substance Use Topics Alcohol use: No Drug use: No FAMILY HISTORY: FAMILY HISTORY FAMILY HISTORY Problem Relation Age of Onset other (ulcers in colon [Other]) Mother Thyroid Mother Dementia Mother other (TIA [Other]) Father other (Heart problems [Other]) Father Stroke Father Heart Attack Father Alzheimer's Disease Father Parkinson s Disease Father No Known Problems Sister No Known Problems Sister No Known Problems Sister No Known Problems Sister No Known Problems Brother Diabetes Maternal Grandmother other (hypoglycemia [Other]) Other Maternal Side other (Ovarian Cyst [Other]) Other Maternal Side, sisters Coronary Artery Disease No Family History Hypertension No Family History Blood Clots No Family History DVT No Family History Factor 5 Leiden No Family History Blood Disease No Family History Systemic Lupus Erythematosus No Family History Multiple Sclerosis No Family History Bipolar disorder No Family History Schizophrenia No Family History Aneurysm No Family History COPD No Family History REVIEW OF SYMPTOMS: The review of systems data was entered by the nurse and reviewed by nv Nursing Notes: Margaret Diego RN 08/18/2023 2:32 PM Addendum REVIEW OF SYSTEMS: General: The patient denies fatigue, denies weight loss, denies weight gain, denies feeling hot, and denies feelings of cold. Eyes: The patient denies glaucoma, denies eye injury/surgery, does not wear glasses or contacts. Ear/Nose/Throat: The patient NOTES allergies, denies hayfever, denies ear infections, and denies bloody noses. Cardiovascular: The patient denies chest pain, denies heart disease, NOTES high blood pressure,denies cardiac stent, denies prior heart attack, denies irregular heart beat, NOTES high cholesterol, denies poor circulation, denies heart failure, other cardiac issues, denies claudication, denies cold feet, denies peripheral arterial stent. Respiratory: The patient denies tuberculosis, denies pneumonia, denies frequent cough, denies pulmonary embolism, NOTES shortness of breath, and denies coughing up blood. Gastrointestinal: The patient denies difficulty swallowing, NOTES acid reflux, denies ulcers, denies vomiting, denies jaundice/hepatitis, denies gallbladder problems, denies black or tarry stools, NOTES hemorrhoids, NOTES bleeding from rectum, denies diverticulitis, denies constipation, denies diarrhea, denies loss of stool control, and denies hernias. Kidney/Bladder: The patient NOTES kidney disease, NOTES urine infections, and denies bloody urine. Skin: The patient denies a history of skin cancer, denies bleeding/changing moles, and denies a history of skin rash. Neurologic: The patient denies a history of epilepsy/convulsions, denies headaches, denies head/spinal injuries, and NOTES stroke/TIA. Psychiatric: The patient denies psychiatric medications, NOTES depression, and denies voices, denies substance abuse. Endocrine: The patient NOTES thyroid disorders, denies diabetes, and denies hormonal problems. Hematologic: The patient denies a history of bruising, denies bleeding, and denies anemia, denies blood clots. Infections: The patient denies a history of measles and mumps, denies rheumatic fever, and denies sexually transmitted diseases. Musculoskeletal: The patient denies back pain/injury, denies back problems, denies sciatica, deniesknee/foot trouble, denies arthritis, or denies gout. When was patient's last Mammogram screening? 03/22/2023 Last Colonoscopy: 2021 Margaret Diego RN PHYSICAL EXAMINATION: General: The patient is 68 year old female, well nourished, well hydrated in no acute distress. Thepatient is oriented to time, place, and person. VITALS: Blood pressure 140/82, pulse 71, temperature 36.1 C (97 F), height 167.6 cm (5' 6), bfosoi20.5 kg (166 lb 6.4 oz), SpO2 97%. Body mass index is 26.86 kg/m . HEENT: Normal cephalic, ataumatic, pupils are equally round, sclera are anicteric, mucous membranesare moist, oropharynx is clear. Neck has no masses, asymmetry or lymphadenopathy. Thyroid is unremarkable. Respiratory: Clear to auscultation and percussion. Normal respiratory excursion and pattern. Cardiac: Examination is regular rate and rhythm. Abdominal exam: Soft, nontender, with no palpable masses. No hepatosplenomegaly. No palpable hernias. Rectal exam: exam deferred Extremities: no clubbing, cyanosis or edema. No adenopathy. Other: LABORATORY VALUES: As Noted RADIOLOGIC STUDIES: As Noted Assessment IMPRESSION: Reflux, blood in stool, history of polyps, multiple medical comorbidities, history of TIAs, on Plavix PLAN: I plan to perform upper and lower endoscopy. We discussed the risks and benefits of the planned endoscopy. I have informed the patient that complications can occur including failure to completethe endoscopy and perforation. The patient had the opportunity to ask questions concerning the planned endoscopy. My staff has also explained the procedure to the patient in understandable terms and has given the patient printed material concerning the procedure. The patient freely consents to surgery. I plan to use golytely bowel preparation for endoscopy I plan for monitored anesthetic care. Patient should not discontinue her Plavix for this endoscopic procedure. Diagnoses: (R10.13) Epigastric pain (primary encounter diagnosis) (Z12.11) Screening for colon cancer (Z86.010) History of colonic polyps (K92.1) Blood in stool My findings have been communicated to Dr. Tatiana Ronquillo MD via shared medical record. Thisnote will be forwarded to Dr. Tatiana Ronquillo MD. Return to Clinic: The patient is instructed to follow-up with me after the testing has been completed. Antoine Lipscomb MD * Antoine Lipscomb MD - 09/04/2023 2:00 PM EDT Images from the original note were not included. HISTORY AND PHYSICAL Temitope Haddad 1955 REFERRING PHYSICIAN: Tatiana Roqnuillo,* CHIEF COMPLAINT: Consult (BRBPR) HPI: The patient is a 68 year old female referred for endoscopy. Temitope notes occasional blood in her stools The patient notes epigastric pain with some reflux issues Temitope has undergone prior endoscopy. The patient underwent colonoscopy in 2013 and was found to have 2 polyps at that time. She denies a family history of colon cancer. She has a history of renal insufficiency COPD hypertension tobacco use and multiple CVAs. She is onPlavix. The patient is being seen by me today at the request of Dr. Tatiana Ronquillo MD for my opinion and advice regarding blood in her stools reflux history of polyps with multiple medical comorbidities on blood thinners.. PAST MEDICAL HISTORY PAST MEDICAL HISTORY Diagnosis Date Abdominal pain, right lower quadrant Benign neoplasm of colon Chronic kidney disease (CKD), stage III (moderate) (HCC) COPD (chronic obstructive pulmonary disease) (HCC) Dr. Love Depression Dysuria Generalized anxiety disorder GERD (gastroesophageal reflux disease) History of colonic polyps History of tobacco use HTN (hypertension) Hyperlipemia Hypothyroidism Impaired fasting blood sugar Left leg pain Leiomyoma of uterus, unspecified very mild changes seen on sono Lung nodules 03/30/2023 Patient requesting to f/u with pulm for repeat imaging. Osteopenia 02/13/2023 Seasonal allergies Skin graft hematoma Left leg, managed by plastic surgery Stroke (HCC) x 4 Suprapubic pain Vitamin D deficiency PAST SURGICAL HISTORY PAST SURGICAL HISTORY Procedure Laterality Date BREAST BIOPSY 05/29/1997 (L) breast biopsy- Dr. Logan COLONOSCOPY 2021 Dr. Barakat-1 polyp removed COLONOSCOPY FLX DX W/COLLJ SPEC WHEN PFRMD 10/17/2012 Colonoscopy ESOPHAGOGASTRODUODENOSCOPY TRANSORAL DIAGNOSTIC 10/17/2012 EGD LIG/TRNSXJ FLP TUBE ABDL/VAG APPR UNI/BI 05/29/1982 PAST SURGICAL HISTORY OF left shoulder manipulation PAST SURGICAL HISTORY OF Left skin graft of left upper leg REMV CATARACT EXTRACAP,INSERT LENS Bilateral 2013, 2014 SURGICAL ARTHROSCOPY ADAN W/CORACOACRM LIGM RLS 09/10/2013 Left shoulder arthroscopic Sub AC decompression CURRENT MEDICATIONS Current Outpatient Medications Medication Sig MOTION SICKNESS RELIEF,MECLIZ, 25 mg chewable tablet(s) Take 25 mg by mouth three times a day as needed. citalopram hydrobromide (CELEXA) 10 mg tablet Take 1 tablet by mouth once daily. clopidogrel (PLAVIX) 75 mg tablet Take 1 tablet by mouth once daily. cholecalciferol (VITAMIN D3) 5,000 unit tab Take 1 tablet by mouth once daily. levothyroxine (SYNTHROID) 50 mcg tablet Take 1 tablet by mouth once daily. atorvastatin (LIPITOR) 20 mg tablet Take 2 tablets by mouth daily at bedtime. For cholesterol. diclofenac (VOLTAREN ARTHRITIS PAIN) 1 % topical gel Apply 4 g to affected area four times daily. alendronate (FOSAMAX) 70 mg tablet Take 1 tablet by mouth one time a week. Take with a full glass of water, on an empty stomach; do NOT lie down for 30minutes. losartan (COZAAR) 25 mg tablet Take 1 tablet by mouth once daily. albuterol HFA (PROVENTIL HFA, VENTOLIN HFA) 90 mcg/actuation inhaler inhale 2 puffs by mouth every 6 hours as needed for shortness of breath PRIYANKI AEROSPHERE 160-9-4.8 mcg/actuation HFA aerosol inhaler Inhale 2 Puffs as instructed twice daily. levocetirizine 5 mg tablet Take 5 mg by mouth once daily. No current facility-administered medications for this visit. ALLERGIES: Fish, Morphine, Vicodin [Hydrocodone-Acetaminophen], Aggrenox [Aspirin-Dipyridamole], and Hydrocodone Bitartrate PERSONAL HISTORY: SOCIAL HISTORY Social History Tobacco Use Smoking status: Former Packs/day: 1.50 Years: 42.00 Additional pack years: 0.00 Total pack years: 63.00 Types: Cigarettes Quit date: 07/27/2020 Years since quittin.0 Smokeless tobacco: Never Tobacco comments: d/c 07/27/2020 Vaping Use Vaping Use: Never used Substance Use Topics Alcohol use: No Drug use: No FAMILY HISTORY: FAMILY HISTORY FAMILY HISTORY Problem Relation Age of Onset other (ulcers in colon [Other]) Mother Thyroid Mother Dementia Mother other (TIA [Other]) Father other (Heart problems [Other]) Father Stroke Father Heart Attack Father Alzheimer's Disease Father Parkinson s Disease Father No Known Problems Sister No Known Problems Sister No Known Problems Sister No Known Problems Sister No Known Problems Brother Diabetes Maternal Grandmother other (hypoglycemia [Other]) Other Maternal Side other (Ovarian Cyst [Other]) Other Maternal Side, sisters Coronary Artery Disease No Family History Hypertension No Family History Blood Clots No Family History DVT No Family History Factor 5 Leiden No Family History Blood Disease No Family History Systemic Lupus Erythematosus No Family History Multiple Sclerosis No Family History Bipolar disorder No Family History Schizophrenia No Family History Aneurysm No Family History COPD No Family History REVIEW OF SYMPTOMS: The review of systems data was entered by the nurse and reviewed by nv Nursing Notes: Margaret Diego RN 08/18/2023 2:32 PM Addendum REVIEW OF SYSTEMS: General: The patient denies fatigue, denies weight loss, denies weight gain, denies feeling hot, and denies feelings of cold. Eyes: The patient denies glaucoma, denies eye injury/surgery, does not wear glasses or contacts. Ear/Nose/Throat: The patient NOTES allergies, denies hayfever, denies ear infections, and denies bloody noses. Cardiovascular: The patient denies chest pain, denies heart disease, NOTES high blood pressure,denies cardiac stent, denies prior heart attack, denies irregular heart beat, NOTES high cholesterol, denies poor circulation, denies heart failure, other cardiac issues, denies claudication, denies cold feet, denies peripheral arterial stent. Respiratory: The patient denies tuberculosis, denies pneumonia, denies frequent cough, denies pulmonary embolism, NOTES shortness of breath, and denies coughing up blood. Gastrointestinal: The patient denies difficulty swallowing, NOTES acid reflux, denies ulcers, denies vomiting, denies jaundice/hepatitis, denies gallbladder problems, denies black or tarry stools, NOTES hemorrhoids, NOTES bleeding from rectum, denies diverticulitis, denies constipation, denies diarrhea, denies loss of stool control, and denies hernias. Kidney/Bladder: The patient NOTES kidney disease, NOTES urine infections, and denies bloody urine. Skin: The patient denies a history of skin cancer, denies bleeding/changing moles, and denies a history of skin rash. Neurologic: The patient denies a history of epilepsy/convulsions, denies headaches, denies head/spinal injuries, and NOTES stroke/TIA. Psychiatric: The patient denies psychiatric medications, NOTES depression, and denies voices, denies substance abuse. Endocrine: The patient NOTES thyroid disorders, denies diabetes, and denies hormonal problems. Hematologic: The patient denies a history of bruising, denies bleeding, and denies anemia, denies blood clots. Infections: The patient denies a history of measles and mumps, denies rheumatic fever, and denies sexually transmitted diseases. Musculoskeletal: The patient denies back pain/injury, denies back problems, denies sciatica, deniesknee/foot trouble, denies arthritis, or denies gout. When was patient's last Mammogram screening? 03/22/2023 Last Colonoscopy: 2021 Margaret Diego RN PHYSICAL EXAMINATION: General: The patient is 68 year old female, well nourished, well hydrated in no acute distress. Thepatient is oriented to time, place, and person. VITALS: Blood pressure 140/82, pulse 71, temperature 36.1 C (97 F), height 167.6 cm (5' 6), jayhkg68.5 kg (166 lb 6.4 oz), SpO2 97%. Body mass index is 26.86 kg/m . HEENT: Normal cephalic, ataumatic, pupils are equally round, sclera are anicteric, mucous membranesare moist, oropharynx is clear. Neck has no masses, asymmetry or lymphadenopathy. Thyroid is unremarkable. Respiratory: Clear to auscultation and percussion. Normal respiratory excursion and pattern. Cardiac: Examination is regular rate and rhythm. Abdominal exam: Soft, nontender, with no palpable masses. No hepatosplenomegaly. No palpable hernias. Rectal exam: exam deferred Extremities: no clubbing, cyanosis or edema. No adenopathy. Other: LABORATORY VALUES: As Noted RADIOLOGIC STUDIES: As Noted Assessment IMPRESSION: Reflux, blood in stool, history of polyps, multiple medical comorbidities, history of TIAs, on Plavix PLAN: I plan to perform upper and lower endoscopy. We discussed the risks and benefits of the planned endoscopy. I have informed the patient that complications can occur including failure to completethe endoscopy and perforation. The patient had the opportunity to ask questions concerning the planned endoscopy. My staff has also explained the procedure to the patient in understandable terms and has given the patient printed material concerning the procedure. The patient freely consents to surgery. I plan to use golytely bowel preparation for endoscopy I plan for monitored anesthetic care. Patient should not discontinue her Plavix for this endoscopic procedure. Diagnoses: (R10.13) Epigastric pain (primary encounter diagnosis) (Z12.11) Screening for colon cancer (Z86.010) History of colonic polyps (K92.1) Blood in stool My findings have been communicated to Dr. Tatiana Ronquillo MD via shared medical record. Thisnote will be forwarded to Dr. Tatiana Ronquillo MD. Return to Clinic: The patient is instructed to follow-up with me after the testing has been completed. Antoine Lipscomb MD [facility] Miscellaneous Notes* Telephone Encounter - Paulo Jackson - 09/01/2023 12:51 PM EDT Images from the original note were not included. Contacted patient for pre-op GI phone call via either phone and or [employer]. Patient understands prep instructions, sent either [employer] and/or Mail. Understands where to report on the day of procedure. All questions answered and or sent to providers office for clarification. Patient understands [employer] arrival time could change and wait for their arrival time call from the facility the day before procedure.Patient understands must have a marine engine driver and or responsible green party present. Patient was givendirect phone number to call ) if patient has any further questions or given the option to respond to [employer] message If one was sent . Please see the prep instructions below. The first set of instructions (Mirlalax/Dulcolax Bowel Prep) are over the counter medications that may be picked up at any pharmacy. The second set of instructions (Golytely) is by prescription only ordered by the ordering physicians office If you have any questions please contact the surgical technology instructor at [phone] or respond to this [employer] message. . Thank you, Paulo Mirlalax/Dulcolax Bowel Prep For this bowel preparation you will need to pickle water pump operator the following medications at any pharmacy. Four (4) Dulcolax tablets (generic name Bisacodyl) 238 Gram (or 8.3 oz.) Bottle of Miralax (Generic name Polyethylene Glycol) A responsible family member or friend MUST be available to drive you home after your procedure. Youare NOT ALLOWED to drive, take a taxi, or leave the [facility]oscopy Center ALONE. If you do NOT have a responsible marine engine driver (family member or friend) to take you home, your exam cannot be done with sedation and WILL BE cancelled. Please remove all jewelry if possible. The [facility] or [facility] (depending on where your procedure is scheduled) will call you THE DAY BEFORE YOUR PROCEDURE with your arrival time. The time in My Chart is just an estimate. Please arriveat the time you are told the day before. Medication BLOOD THINNERS - Blood thinner medication may need to be stopped or adjusted before your colonoscopy, such as Coumadin, Plavix, Paradaxa and Eliquis. - Contact prescribing physician regarding holdingany blood thinner medication. If you were seen in the general surgery office, please follow their instructions as to if and when to hold any blood thinners. If you are having this procedure done by the request of any other providers and were NOT seen in our office, please contact your physician's office to see if you need to hold any medication prior to your procedure. Insulin or diabetes pills -Please call the doctor that monitors your glucose levels. Your insulin dosage needs to be adjusted due to the diet restrictions required with this bowl preparation (please bring your diabetic medication with you on the day of your procedure). If you take aspirin, take it and ALL other medication prescribed by your doctor unless told otherwise by either the physician's office or Pre-Admission testing if having procedure done in a hospital setting ([facility]) with a small sip of water only. You may take over the counter medications if you havea headache. TAKE ALL BLOOD PRESSURE MEDICATION THE MORNING OF THE PROCEDURE. Failure to take usual morning blood pressure meds may result in cancellation of the procedure if hypertensive. Hold erectile dysfunction medications for 48 hrs. prior to the procedure. Five (5) days before your colonoscopy Do not take medications that stop Diarrhea - Imodium, Kaopectate, or Pepto Bismol Do NOT take fiber supplements - Metamucil, Citrucel, FiberCon Do NOT take products that contain iron (check vitamin label) Two (2) to three (3) days before your colonoscopy DO NOT EAT HIGH FIBER FOODS No beans, seeds (flax, sunflower, quinoa), nuts, popcorn, multigrain bread salad/vegetables, or fresh and dried fruit. Do not eat red meat 3 days before your procedure. YOU MAY EAT Lean Chicken breast, fish, eggs, and soup YOU MUST BE ON CLEAR LIQUIDS FOR 2 FULL DAYS PRIOR TO PROCEDURE Two (2) Days before your colonoscopy ONLY DRINK CLEAR LIQUIDS for 2 DAYs BEFORE YOUR COLONOSCOPY. DO NOT EAT ANY SOLID FOODS. Drink at least eight (8) ounces of clear liquids every hour after waking up. Clear fluids include: Water, apple juice, white grape juice, broth (beef, chicken or vegetable), coffee and/or tea (NO DAIRY, MILK OR CREAMER) clear carbonated beverages (sprite, 7-up, emery-geno), Gatorade, or other sport drinks, Brett-Aid, Jell-O, Gummy Bears and popsicles. NOTHING RED IN COLOR. DO NOT DRINK ALCOHOL the day before or the day of your procedure. DAY 1 (2 days before your colonoscopy) Clear Liquids all day, you may have water, coffee or tea- NO DAIRY, Clear broth (Beef, Chicken or vegetable) Clear carbonated beverages, apple juice, white grape juice , Gatorade, Jell-O, Brett-Aid, and popsicles. NO DAIRY, TOMATO, OR ORANGE JUICE. NO RED OR PURPLE! DAY 2 - (day before your colonoscopy) SAME DAY 1, Continue clear fluids and then follow the instructions below~ 8:00 AM - May Mix the Miralax prep with 64 oz. of Gatorade or any of the clear fluids listed above and place in fridge. 1:00 PM - Take 2 Dulcolax Tablets with 8oz of water 3:00 PM - Start to drink the Miralax mixture. - Finish by midnight 4:00 PM - Take 2 Dulcolax tablets with 8oz of water. You may continue to drink clear liquids while you are taking your prep and after you finish as longas it is before midnight. Drink lots of fluids so you don't become dehydrated. Nothing to drink after midnight unless instructed otherwise by nursing staff and/or physician. Please remember to take your normal medications the morning of your procedure with a small sip of water especially your blood pressure medications. If you are diabetic, you need to contact your physiciansregarding how to take your diabetic medications and/or insulin during the prepping period and the day of the procedure. The times above are a general guide. You may change the times if needed to accommodate your schedule. Example, Instead of taking your first step at 1 PM you may take your first step at 6 PM. Your time frames would be: 6 PM take 2 Dulcolax tablets, at 8 PM you would start drinking the Miralax mixture and at 9 PM you would take two more Dulcolax tablets. Any questions please call [phone] or [phone] and ask for the general surgery nurses. How to prepare for your Colonoscopy using Golytely Your bowel must be empty so that your doctor can clearly view your colon. DO NOT eat any solid food the ENTIRE DAY before your colonoscopy. DO NOT MIX the solution until the day before your colonoscopy. The prep is only good for 24 hrs. after it has been mixed A responsible family member or friend MUST be available to drive you home after your procedure. Youare NOT ALLOWED to drive, take a taxi, or leave the Endoscopy Center ALONE. If you do NOT have a responsible marine engine driver (family member or friend) to take you home, your exam cannot be done with sedation and WILL BE cancelled. Please remove all jewelry if possible. The [facility] or [facility] (depending on where your procedure is scheduled) will call you THE DAY BEFORE YOUR PROCEDURE with your arrival time. The time in My Chart is just an estimate. Please arriveat the time you are told the day before. Medication BLOOD THINNERS - Blood thinner medication may need to be stopped or adjusted before your colonoscopy, such as Coumadin, Plavix, Paradaxa and Eliquis. - Contact prescribing physician regarding holdingany blood thinner medication. If you were seen in the general surgery office, please follow their instructions as to if and when to hold any blood thinners. If you are having this procedure done by the request of any other providers and were NOT seen in our office, please contact your physician's office to see if you need to hold any medication prior to your procedure. Insulin or diabetes pills -Please call the doctor that monitors your glucose levels. Your insulin dosage needs to be adjusted due to the diet restrictions required with this bowl preparation (please bring your diabetic medication with you on the day of your procedure). If you take aspirin, take it and ALL other medication prescribed by your doctor unless told otherwise by either the physician's office or Pre-Admission testing if having procedure done in a hospital setting ([facility]) with a small sip of water only. You may take over the counter medications if you havea headache. TAKE ALL BLOOD PRESSURE MEDICATION THE MORNING OF THE PROCEDURE. Failure to take usual morning blood pressure meds may result in cancellation of the procedure if hypertensive. Hold erectile dysfunction medications for 48 hrs. prior to the procedure. Five (5) days before your colonoscopy Do not take medications that stop Diarrhea - Imodium, Kaopectate, or Pepto Bismol Do NOT take fiber supplements - Metamucil, Citrucel, FiberCon Do NOT take products that contain iron (check vitamin label) Two (2) to three (3) days before your colonoscopy DO NOT EAT HIGH FIBER FOODS No beans, seeds (flax, sunflower, quinoa), nuts, popcorn, multigrain bread salad/vegetables, or fresh and dried fruit. Do not eat red meat 3 days before your procedure. YOU MAY EAT Lean Chicken breast, fish, eggs, and soup One (1) Day before your colonoscopy ONLY DRINK CLEAR LIQUIDS the ENTIRE DAY BEFORE YOUR COLONOSCOPY. DO NOT EAT ANY SOLID FOODS. Drink at least eight (8) ounces of clear liquids every hour after waking up. Clear fluids include: Water, apple juice, white grape juice, broth (beef, chicken or vegetable), coffee and/or tea (NO DAIRY, MILK OR CREAMER) clear carbonated beverages (sprite, 7-up, emery-geno), Gatorade, or other sport drinks, Brett-Aid, Jell-O, Gummy Bears and popsicles. NOTHING RED IN COLOR. DO NOT DRINK ALCOHOL the day before or the day of your procedure. Preparing Bowel Prep Follow the instructions on the label. After mixing (warm water so the powder will dissolve), place the solution in the refrigerator. You may either add the flavor packet that comes with the bowel solution, or you may use your own (Crystal Light, Brett-Aid, [place], Country Time Lemonade, or any powder flavor that you may mix with water; NOTHING RED). If you use your own flavor, please add flavor glass by glass. You do not want to mix your own flavor in the container as you may over flavor the prep.If you add glass by glass, you may also switch flavors during the consumption of your bowel prep. Day Before Your Colonoscopy You may start your bowel prep any time after 1:00 PM before 6:00 PM. Alternate between your bowel prep and clear liquids. Bowel prep is most effective if drank in a 2 to 3 hr. time frame. You MUST drink the bowel prep until completely gone. Failure to complete bowel prep may lead to cancellation of your procedure and or having to repeat the procedure. Please continue to drink clear liquids up till 6 hrs. prior to [facility] for [facility]. documented in [facility]German [facility] Miscellaneous Notes* Telephone Encounter - Jina Kim LPN - 08/22/2023 1:03 PM EDT Patient returned call and said she is feeling better, taking the Meclizine rx. * Telephone Encounter - Talita Preston LPN - 08/15/2023 10:23 AM EDT Message left on secure VM for patient regarding scheduling ER follow up appointment in next 2-3 days with PCP. documented in this encounterGerman [facility]03-25-[facility]24 Telephone encounter Note * Telephone Encounter - Tran Smith - 08/21/2023 11:15 AM EDT Attempted to reach patient for sooner procedure date with Dr. Tolliver in [place] on 08/28/2023 or anotheralternative date. Left voicemail to call me directly at [phone] to discuss further Tran Smith Senior Process Engineer [facility]03-25-2024 Miscellaneous Notes* Telephone Encounter - Tran Smith - 08/21/2023 11:15 AM EDT Attempted to reach patient for sooner procedure date with Dr. Tolliver in [place] on 08/28/2023 or anotheralternative date. Left voicemail to call me directly at [phone] to discuss further Tran Smith Senior Process Engineer * Telephone Encounter - Tran Smith - 08/18/2023 3:52 PM EDT 01/08/2024 COLON/EGD DIAGNOSTIC PATIENT TO BE CALLED WITH SOONER DATE BY OFFICE Tran Smith Senior Process Engineer documented in this encounterGerman [facility]03-23-[facility]24 History of Present illness Narrative* Antoine Lipscomb MD - 08/19/2023 10:10 AM EDT HISTORY AND PHYSICAL Temitope Haddad 1955 REFERRING PHYSICIAN: Tatiana Ronquillo,* CHIEF COMPLAINT: Consult (BRBPR) HPI: The patient is a 68 year old female referred for endoscopy. Temitope notes occasional blood in her stools The patient notes epigastric pain with some reflux issues Temitope has undergone prior endoscopy. The patient underwent colonoscopy in 2012 and was found to have 2 polyps at that time. She denies a family history of colon cancer. She has a history of renal insufficiency COPD hypertension tobacco use and multiple CVAs. She is onPlavix. The patient is being seen by me today at the request of Dr. Tatiana Rnoquillo MD for my opinion and advice regarding blood in her stools reflux history of polyps with multiple medical comorbidities on blood thinners.. PAST MEDICAL HISTORY Diagnosis Date Abdominal pain, right lower quadrant Benign neoplasm of colon Chronic kidney disease (CKD), stage III (moderate) ([facility]) COPD (chronic obstructive pulmonary disease) ([facility]) Dr. Love Depression Dysuria Generalized anxiety disorder GERD (gastroesophageal reflux disease) History of colonic polyps History of tobacco use HTN (hypertension) Hyperlipemia Hypothyroidism Impaired fasting blood sugar Left leg pain Leiomyoma of uterus, unspecified very mild changes seen on sono Lung nodules 03/30/2023 Patient requesting to f/u with pulm for repeat imaging. Osteopenia 02/13/2023 Seasonal allergies Skin graft hematoma Left leg, managed by plastic surgery Stroke (HCC) x 4 Suprapubic pain Vitamin D deficiency PAST SURGICAL HISTORY Procedure Laterality Date BREAST BIOPSY 05/29/1997 (L) breast biopsy- Dr. Logan COLONOSCOPY 2021 Dr. Barakat-1 polyp removed COLONOSCOPY FLX DX W/COLLJ SPEC WHEN PFRMD 10/17/2012 Colonoscopy ESOPHAGOGASTRODUODENOSCOPY TRANSORAL DIAGNOSTIC 10/17/2012 EGD LIG/TRNSXJ FLP TUBE ABDL/VAG APPR UNI/BI 05/29/1982 PAST SURGICAL HISTORY OF left shoulder manipulation PAST SURGICAL HISTORY OF Left skin graft of left upper leg REMV CATARACT EXTRACAP,INSERT LENS Bilateral 2013, 2014 SURGICAL ARTHROSCOPY ADAN W/CORACOACRM LIGM RLS 09/10/2013 Left shoulder arthroscopic Sub AC decompression Current Outpatient Medications Medication Sig MOTION SICKNESS RELIEF,MECLIZ, 25 mg chewable tablet(s) Take 25 mg by mouth three times a day as needed. citalopram hydrobromide (CELEXA) 10 mg tablet Take 1 tablet by mouth once daily. clopidogrel (PLAVIX) 75 mg tablet Take 1 tablet by mouth once daily. cholecalciferol (VITAMIN D3) 5,000 unit tab Take 1 tablet by mouth once daily. levothyroxine (SYNTHROID) 50 mcg tablet Take 1 tablet by mouth once daily. atorvastatin (LIPITOR) 20 mg tablet Take 2 tablets by mouth daily at bedtime. For cholesterol. diclofenac (VOLTAREN ARTHRITIS PAIN) 1 % topical gel Apply 4 g to affected area four times daily. alendronate (FOSAMAX) 70 mg tablet Take 1 tablet by mouth one time a week. Take with a full glass of water, on an empty stomach; do NOT lie down for 30minutes. losartan (COZAAR) 25 mg tablet Take 1 tablet by mouth once daily. albuterol HFA (PROVENTIL HFA, VENTOLIN HFA) 90 mcg/actuation inhaler inhale 2 puffs by mouth every 6 hours as needed for shortness of breath BREZTRI AEROSPHERE 160-9-4.8 mcg/actuation HFA aerosol inhaler Inhale 2 Puffs as instructed twice daily. levocetirizine 5 mg tablet Take 5 mg by mouth once daily. No current facility-administered medications for this visit. ALLERGIES: Fish, Morphine, Vicodin [Hydrocodone-Acetaminophen], Aggrenox [Aspirin-Dipyridamole], and Hydrocodone Bitartrate PERSONAL HISTORY: Social History Tobacco Use Smoking status: Former Packs/day: 1.50 Years: 42.00 Additional pack years: 0.00 Total pack years: 63.00 Types: Cigarettes Quit date: 07/27/2020 Years since quittin.0 Smokeless tobacco: Never Tobacco comments: d/c 07/27/2020 Vaping Use Vaping Use: Never used Substance Use Topics Alcohol use: No Drug use: No FAMILY HISTORY: FAMILY HISTORY Problem Relation Age of Onset other (ulcers in colon [Other]) Mother Thyroid Mother Dementia Mother other (TIA [Other]) Father other (Heart problems [Other]) Father Stroke Father Heart Attack Father Alzheimer's Disease Father Parkinson s Disease Father No Known Problems Sister No Known Problems Sister No Known Problems Sister No Known Problems Sister No Known Problems Brother Diabetes Maternal Grandmother other (hypoglycemia [Other]) Other Maternal Side other (Ovarian Cyst [Other]) Other Maternal Side, sisters Coronary Artery Disease No Family History Hypertension No Family History Blood Clots No Family History DVT No Family History Factor 5 Leiden No Family History Blood Disease No Family History Systemic Lupus Erythematosus No Family History Multiple Sclerosis No Family History Bipolar disorder No Family History Schizophrenia No Family History Aneurysm No Family History COPD No Family History REVIEW OF SYMPTOMS: The review of systems data was entered by the nurse and reviewed by nv Nursing Notes: Margaret Diego RN 08/18/2023 2:32 PM Addendum REVIEW OF SYSTEMS: General: The patient denies fatigue, denies weight loss, denies weight gain, denies feeling hot, and denies feelings of cold. Eyes: The patient denies glaucoma, denies eye injury/surgery, does not wear glasses or contacts. Ear/Nose/Throat: The patient NOTES allergies, denies hayfever, denies ear infections, and denies bloody noses. Cardiovascular: The patient denies chest pain, denies heart disease, NOTES high blood pressure,denies cardiac stent, denies prior heart attack, denies irregular heart beat, NOTES high cholesterol, denies poor circulation, denies heart failure, other cardiac issues, denies claudication, denies cold feet, denies peripheral arterial stent. Respiratory: The patient denies tuberculosis, denies pneumonia, denies frequent cough, denies pulmonary embolism, NOTES shortness of breath, and denies coughing up blood. Gastrointestinal: The patient denies difficulty swallowing, NOTES acid reflux, denies ulcers, denies vomiting, denies jaundice/hepatitis, denies gallbladder problems, denies black or tarry stools, NOTES hemorrhoids, NOTES bleeding from rectum, denies diverticulitis, denies constipation, denies diarrhea, denies loss of stool control, and denies hernias. Kidney/Bladder: The patient NOTES kidney disease, NOTES urine infections, and denies bloody urine. Skin: The patient denies a history of skin cancer, denies bleeding/changing moles, and denies a history of skin rash. Neurologic: The patient denies a history of epilepsy/convulsions, denies headaches, denies head/spinal injuries, and NOTES stroke/TIA. Psychiatric: The patient denies psychiatric medications, NOTES depression, and denies voices, denies substance abuse. Endocrine: The patient NOTES thyroid disorders, denies diabetes, and denies hormonal problems. Hematologic: The patient denies a history of bruising, denies bleeding, and denies anemia, denies blood clots. Infections: The patient denies a history of measles and mumps, denies rheumatic fever, and denies sexually transmitted diseases. Musculoskeletal: The patient denies back pain/injury, denies back problems, denies sciatica, deniesknee/foot trouble, denies arthritis, or denies gout. When was patient's last Mammogram screening? 03/22/2023 Last Colonoscopy: 2021 Margaret Diego RN PHYSICAL EXAMINATION: General: The patient is 68 year old female, well nourished, well hydrated in no acute distress. Thepatient is oriented to time, place, and person. VITALS: Blood pressure 140/82, pulse 71, temperature 36.1 C (97 F), height 167.6 cm (5' 6), jjxlcu41.5 kg (166 lb 6.4 oz), SpO2 97%. Body mass index is 26.86 kg/m . HEENT: Normal cephalic, ataumatic, pupils are equally round, sclera are anicteric, mucous membranesare moist, oropharynx is clear. Neck has no masses, asymmetry or lymphadenopathy. Thyroid is unremarkable. Respiratory: Clear to auscultation and percussion. Normal respiratory excursion and pattern. Cardiac: Examination is regular rate and rhythm. Abdominal exam: Soft, nontender, with no palpable masses. No hepatosplenomegaly. No palpable hernias. Rectal exam: exam deferred Extremities: no clubbing, cyanosis or edema. No adenopathy. Other: LABORATORY VALUES: As Noted RADIOLOGIC STUDIES: As Noted Assessment IMPRESSION: Reflux, blood in stool, history of polyps, multiple medical comorbidities, history of TIAs, on Plavix PLAN: I plan to perform upper and lower endoscopy. We discussed the risks and benefits of the planned endoscopy. I have informed the patient that complications can occur including failure to completethe endoscopy and perforation. The patient had the opportunity to ask questions concerning the planned endoscopy. My staff has also explained the procedure to the patient in understandable terms and has given the patient printed material concerning the procedure. The patient freely consents to surgery. I plan to use golytely bowel preparation for endoscopy I plan for monitored anesthetic care. Patient should not discontinue her Plavix for this endoscopic procedure. Diagnoses: (R10.13) Epigastric pain (primary encounter diagnosis) (Z12.11) Screening for colon cancer (Z86.010) History of colonic polyps (K92.1) Blood in stool My findings have been communicated to Dr. Tatiana Ronquillo MD via shared medical record. Thisnote will be forwarded to Dr. Tatiana Ronquillo MD. Return to Clinic: The patient is instructed to follow-up with me after the testing has been completed. Antoine Lipscomb MD documented in this encounterGerman Hospital03-22-2024 Telephone encounter Note * Telephone Encounter - Tran Smith - 08/18/2023 3:52 PM EDT 01/08/2024 COLON/EGD DIAGNOSTIC PATIENT TO BE CALLED WITH SOONER DATE BY OFFICE Tran Smith Senior Process Engineer [facility]03-22-2024 Instructions* Patient Instructions* Antoine Lipscomb MD - 08/18/2023 3:25 PM EDT Images from the original note were not included. Bowel Preparation Instructions for: Golytely, Nulytely, Trilyte or Colyte (polyethylene glycol 3350and electrolytes) IF YOU DO NOT FOLLOW THESE DIRECTIONS, YOUR COLONOSCOPY WILL BE CANCELLED. Bloom Instructions: Your bowel must be empty so that your doctor can clearly view your colon. Follow all of the instructions in this handout EXACTLY as they are written. Do NOT eat any solid food the ENTIRE day before your colonoscopy. Drink only clear liquids. Buy your bowel preparation at least 5 days before your colonoscopy. TRANSPORTATION on the Day of Your Exam A responsible person MUST be present with you at Check In prior to your colonoscopy and REMAIN in the endoscopy area until you are discharged. You are NOT ALLOWED to drive, take a taxi or bus, or leave the Endoscopy Center ALONE. If you do not have a responsible marine engine driver (family member or friend) with you to take you home, your exam cannot be done with sedation and will be cancelled. Please bring a list of all of your current medications, including any Over-the Counter medications with you. Medications If you take insulin, diabetic medications or blood thinners such as Coumadin (warfarin), Plavix (clopidogrel), Ticlid (ticlopidine hydrochloride), Agrylin (anagrelide), Xarelto (Rivaroxaban), Pradaxa(Dabigatran), Eliquis (Apixaban), and Effient (Prasugrel). You MUST call the doctors who orders those medicines for instructions on altering the dosage before your colonoscopy. All other medications should be taken the day of the exam with a sip of water including ASPIRIN. Five (5) Days Before Your Colonoscopy Do NOT take medicines that stop diarrhea - such as Imodium, Kaopectate, or Pepto Bismol. Do NOT take fiber supplements - such as Metamucil, Citrucel, or Perdiem. Do NOT take products that contain iron - such as multi-vitamins (the label lists what is in the products). Do NOT take Vitamin E. Buy the prescription bowel preparation solution at your local pharmacy or drugstore pharmacy. 04/2019 Bowel Preparation Instructions for: Golytely, Nulytely, Trilyte or Colyte (polyethylene glycol 3350and electrolytes) Three (3) Days Before Your Colonoscopy Do NOT eat high-fiber foods - such as popcorn, beans, seeds (flax, sunflower, quinoa), multigrain bread, nuts, salad/vegetables, or fresh and dried fruit. One (1) Day Before Your Colonoscopy Only drink clear liquids the ENTIRE DAY before your colonoscopy. Do NOT eat any solid foods. Drink at least 8 ounces of clear liquids every hour after waking up. The clear liquids you can drink include: Clear Liquid (NO RED LIQUIDS) DO NOT DRINK Gatorade, Pedialyte or Powerade Clear broth or bouillon Coffee or tea (no milk or non-dairy creamer) Carbonated and non-carbonated soft drinks Brett-Aid or other fruit flavored drinks Strained fruit juices (no pulp) Jell-O, popsicles, hard candy Water Alcohol Milk or non-dairy creamers Noodles or vegetables in soup Juice with pulp Liquid you cannot see through Do not use tobacco/vaping products The bowel preparation solution will be consumed in two parts. Mix the solution the evening before your colonoscopy and refrigerate before drinking. You may add the flavor pack that came with the bowel preparation. Do NOT add ice, sugar or any other flavorings to the solution. Part 1 At 6:00 PM - 2 Evenings before your colonoscopy Drink an 8-oz glass of bowel preparation every 10 minutes half of the jug. Part 2 At 6:00 PM - 1 Evening before your colonoscopy Drink an 8-oz glass of bowel preparation every 10 minutes for the second half of the jug You may continue to drink clear liquids until midnight. 2 04/2019 documented in this encounterGerman Hospital03-22-2024 Nurse Note* Margaret Diego, RN - 08/18/2023 2:18 PM EDT REVIEW OF SYSTEMS: General: The patient denies fatigue, denies weight loss, denies weight gain, denies feeling hot, and denies feelings of cold. Eyes: The patient denies glaucoma, denies eye injury/surgery, does not wear glasses or contacts. Ear/Nose/Throat: The patient NOTES allergies, denies hayfever, denies ear infections, and denies bloody noses. Cardiovascular: The patient denies chest pain, denies heart disease, NOTES high blood pressure,denies cardiac stent, denies prior heart attack, denies irregular heart beat, NOTES high cholesterol, denies poor circulation, denies heart failure, other cardiac issues, denies claudication, denies cold feet, denies peripheral arterial stent. Respiratory: The patient denies tuberculosis, denies pneumonia, denies frequent cough, denies pulmonary embolism, NOTES shortness of breath, and denies coughing up blood. Gastrointestinal: The patient denies difficulty swallowing, NOTES acid reflux, denies ulcers, denies vomiting, denies jaundice/hepatitis, denies gallbladder problems, denies black or tarry stools, NOTES hemorrhoids, NOTES bleeding from rectum, denies diverticulitis, denies constipation, denies diarrhea, denies loss of stool control, and denies hernias. Kidney/Bladder: The patient NOTES kidney disease, NOTES urine infections, and denies bloody urine. Skin: The patient denies a history of skin cancer, denies bleeding/changing moles, and denies a history of skin rash. Neurologic: The patient denies a history of epilepsy/convulsions, denies headaches, denies head/spinal injuries, and NOTES stroke/TIA. Psychiatric: The patient denies psychiatric medications, NOTES depression, and denies voices, denies substance abuse. Endocrine: The patient NOTES thyroid disorders, denies diabetes, and denies hormonal problems. Hematologic: The patient denies a history of bruising, denies bleeding, and denies anemia, denies blood clots. Infections: The patient denies a history of measles and mumps, denies rheumatic fever, and denies sexually transmitted diseases. Musculoskeletal: The patient denies back pain/injury, denies back problems, denies sciatica, deniesknee/foot trouble, denies arthritis, or denies gout. When was patient's last Mammogram screening? 03/22/2023 Last Colonoscopy: 2021 Margaret Diego RN documented in this encounterGerman Hospital03-18-2024 Miscellaneous Notes* Telephone Encounter - Shawnee Masters RN - 08/14/2023 1:22 PM EDT Reason for Call: Intermittent dizziness, unable to stand, requires support to walk. Outcome: Patient advised to go to ED now. Patient verbalizes understanding, and states she will go to [facility]. Reason for Disposition SEVERE dizziness (e.g., unable to stand, requires support to walk, feels like passing out now) Protocols used: Dizziness - [id number] documented in this encounterGerman Hospital03-13-2024 Evaluation note* Diagnosis Stage 3a chronic kidney disease (HCC)- Primary documented in this encounter [facility]03[facility] Reason for referral (narrative)* Diagnostic Procedure Only (Routine) - Closed Specialty Diagnoses / Procedures Referred By Contac t Referred To Contact [facility] Diagnoses Stage 3a chronic kidney disease (HCC) Procedures US KIDNEY/BLADDER US RETROPERITONEAL REAL TIME W/IMAGE COMPLETE Tatiana Ronquillo MD [address] [place] [address] [place] [id number] Referral ID Status Reason Start Date Expiration Date V isits Requested Visits Authorized [id number] Closed Auto-Generate d Referral 07/28/2023 08/26/2024 1 1 [facility]03-[facility] Miscellaneous Notes* Telephone Encounter - Dominga Whitley RN - 08/02/2023 9:37 AM EST Patient notified. Dominga Whitley RN * Telephone Encounter - Tatiana Ronquillo MD - 08/02/2023 9:28 AM EST Patient's urine culture growing strep agalactiae at low colony count. This is typically susceptibleto penicillins, so will call in amoxicillin BID x 5 days to local pharmacy. Repeat CMP in 1 month to see if kidney function improves with treatment. documented in this encounterGerman [facility] Evaluation note* Diagnosis Stage 3a chronic kidney disease (HCC) documented in [facility] encounter [facility] History of Present illness Narrative* Yamile Vivas, NANDAKY - 07/31/2023 2:30 PM EST Radiology Service Progress Note PATIENT NAME: Temitope Haddad DATE OF SERVICE: July 31, 2023 TIME: 2:47 PM PATIENT IDENTITY VERIFICATION COMPLETED USING TWO (2) IDENTIFIERS: Name and Date of confirmedby patient verbally. FALL SCREENING: Has the patient had 2 falls in the last year or 1 fall with injury or currently using an Ambulatory Assistive Device (Walker, Cane, Wheelchair, Crutches, etc.)? No PATIENT GENDER DATA: Female. status: : No status: NO. PATIENT RELEVANT IMPLANT DATA REVIEWED: Not Applicable PATIENT PRESENTS WITH AN IMPLANTABLE OR ATTACHED SHEET PILE DRIVER OPERATOR: No RADIOLOGY DEPARTMENT: Ultrasound PERIPHERAL IV DATA: Not applicable SIGNED BY: Yamile Vivas RDMS RVT July 31, 2023 2:47 PM documented in this encounterGerman Hospital03-01-2024 Miscellaneous Notes* Telephone Encounter - Vira Valerio - 07/28/2023 10:36 AM EST 1st call attempt, left vm * Telephone Encounter - Paulo Vazquez LPN - 07/28/2023 9:24 AM EST Left detailed message with results/provider instructions. Pt advised to contact office /c any questions or concerns. Schedulers please assist pt with scheduling US kidneys. Paulo Vazquez LPN * Telephone Encounter - Tatiana Ronquillo MD - 07/28/2023 8:45 AM EST Blood work negative for signs of infection, inflammation, or anemia with complaint of GI bleed. Recommend pushing PO fluids, increased fiber in her diet, and stool softener to prevent constipation which can worsen hemorrhoids. May use preparation H for itching or burning. Call with worsening symptoms of bleeding or go to the ER with severe symptoms as discussed. A1c remains in prediabetic range at 5.8. recommend low carb diet and exercise. Recheck in 6 months. Kidney function still down in CKD stage III range. Recommend low sodium diet <2,000 mg per day, avoidance of NSAIDs, and increased water intake. Will check UA and US of the kidneys further workup. documented in this encounterGerman Hospital12-29-2023 NoteHNO ID: [id number] Author: Phoebe Noble APRN.ENVIRONMENTAL PROJECTS ADVISOR Service: ? Author Type: Nurse Practitioner Type: Progress Notes Filed: 05/26/2023 4:20 PM Note Text: [facility] Today's Date: 05/26/2023 Name: Temitope Haddad : 1955 Purpose: Follow-up Patient Evaluation - This is an established patient, returning today for continued evaluation and management of the chief complaint noted below Chief complaint: tail bone pain Pertinent Past Medical History: Headaches, HLD, HTN, COPD, GERD, hypothyroidism, depression, FRANCES, TIA, CVA, Plan at last visit: Plan: Temitope Haddad would benefit from the following to reach personal goals for decreasing pain, improving function and work participation, and/or improving quality of life: -Interventional Procedure: None The risks, benefits, alternative treatment options and prognosis of the procedure were discussed and all of the patient's questions/concerns were addressed to the patient?s satisfaction. Patient was advised that they will need a marine engine driver for after the procedure and that if no marine engine driver is available and on site at the time of the procedure, the procedure will be cancelled. For any anticoagulants, the patient was advised on whether to continue or hold for this procedure. The patient expressed understanding and gave verbal consent to proceed. Medication(s): Voltaren Gel - advised no oral NSAIDS given on Plavix OTC topicals - can continue to use these as well, not simultaneously Additional Studies: x-ray lumbar Referrals: No additional considerations at present Functional Mandaeism: Physical Therapy (Land-based) Depending on response to the above plan, consider: TBD -Follow-up: 3 months Interval History: Overall pain and functional disability since last visit: Better New Complaints since last visit: No Timing: constant Character:achiy Primary Location: axial low back Radiation: right hip Exacerbating factors: playing tug-a-war with her dog; walking too fast Relieving factors: unable to pinpoint positions/factors that are mitigating Interferes with: playing with her dog or with walking. The patient denies difficulty with bowel or bladder control, unintentional weight loss, and fevers, chills, or night sweats. Patient stating she is doing pretty well at this time. States that she only has pain with certain activities. Patient states she has been managing her pain okay and is not in as much pain as she was when she first came to this practice. Patient stating the Voltaren gel that he gave her is really helped with her pain at this point. Patient is here to see what potentially done for her pain. Current Pain Medications: Neuropathics: NSAIDS: Muscle Relaxants: Topicals: Voltaren gel Other Prescription or OTC Pain Medications: Opioids (when applicable): Tolerating Medication: N/A Medications helping improve ADL's and Self-care: N/A Anti-depressants or Mood-Stabilizers: None Anti-Coagulants: None, Plavix AG SPINE COMBINATION 02/23/2023 Questionnaire GREENLIGHT Completed Date 02/23/2023 Questionnaire Opiod Risk Tool Completed Date 02/23/2023 No question data found. (All drug screens are appropriate unless indicated otherwise) Therapies Attended (Current or Most Recent): No Current Therapies Notable Events During Course of Treatment: Treatment History: PAIN PROCEDURES: DATE PROCEDURE IMPROVEMENT To date, no interventional pain management procedures performed at this practice. Pain Medications Taken TO DATE (for the chief complaint(s)): Membrane Stabilizers: none NSAIDS: Naprosyn (Naproxen) Opioids: Roxicodone and Percocet (Oxycodone) Muscle Relaxants: Flexeril (Cyclobenzaprine) Topicals: Lidocaine topical, Aspercreme Other Prescription or OTC Pain Medications: Tylenol (Acetaminophen) Anti-depressants: Celexa and Wellbutrin Non-Pain Meds of Note: Plavix - for stroke prevention; has CVA in 2010, several TIA's since that time Data Reviewed Today: Allergies: ALLERGIES Allergen Reactions Fish Swelling, Shortness of Breath Morphine Mental Status Change, Other: See Comments Vicodin [Hydrocodon* Vomiting Aggrenox [Aspirin-D* Other: See Comments Headache Hydrocodone Bitartr* Other: See Comments Social History Tobacco Use Smoking status: Former Packs/day: 1.50 Years: 42.00 Additional pack years: 0.00 Total pack years: 63.00 Types: Cigarettes Quit date: 07/27/2020 Years since quittin.8 Smokeless tobacco: Never Tobacco comments: d/c 07/28/19 (more content not included)...[facility] 05-26-2023 NoteHNO ID: [id number] Author: Clover Alberts LPN Service: ? Author Type: LICENSED NURSE Type: Progress Notes Filed: 05/26/2023 4:20 PM Note Text: Review of Systems Constitutional: Positive for activity change. Negative for chills, fever and unexpected weight change. Gastrointestinal: Negative for bowel retention or incontinence Genitourinary: Negative for difficulty urinating. Negative for bladder retention or incontinence Musculoskeletal: Positive for arthralgias, back pain, gait problem, neck pain and neck stiffness. Negative for joint swelling and myalgias. Neurological: Positive for headaches. Negative for weakness and numbness. Psychiatric/Behavioral: Positive for dysphoric mood and sleep disturbance. Negative for suicidal ideas. The patient is nervous/anxious.[facility]12-15-2023 Miscellaneous Notes* Telephone Encounter - Meche Farias Mazabeth - 05/12/2023 3:21 PM EST Called [facility] to verify that fosamax has active refills. Also verified that celexa comes from Mirlande Jensen through [facility]. Patient was notified to contact them for refill for celexa Katlyn Farias Ma * Telephone Encounter - Lili Barillas - 05/12/2023 2:35 PM EST Pharmacy verified in Epic Patient has been identified by name and date of : Yes Patient aware RX will be sent to pharmacy. No need to notify patient. Patient phones for refill(s): Requested Prescriptions Pending Prescriptions Disp Refills alendronate (FOSAMAX) 70 mg tablet 12 tablet 3 Sig: Take 1 tablet by mouth one time a week. Take with a full glass of water, on an empty stomach; do NOT lie down for 30minutes. citalopram hydrobromide (CELEXA) 10 mg tablet Sig: Take 1 tablet by mouth once daily. Date of last office visit : 03/21/2023 Date of next office visit : 07/27/2023 Last 2 Encounter Wt Readings: Date: Wt: 03/21/2023 70.3 kg (155 lb) 02/07/2023 67.1 kg (148 lb) Not applicable Please advise. Lili Peña Pss documented in this encounterGerman Hospital10-25-2023 Miscellaneous Notes* Telephone Encounter - Jina Kim LPN - 03/22/2023 1:53 PM EDT Phoned patient and went over results, notes from Dr Ronquillo with understanding. * Telephone Encounter - Jina Kim LPN - 03/22/2023 1:52 PM EDT ----- Message from Tatiana Ronquillo MD sent at 03/22/2023 1:49 PM EDT ----- Negative/normal mammogram. Return to annual screening. documented in this encounterGerman Hospital10-25-2023 History of Present illness Narrative* Mirlande Rodriguez RT(R) - 03/22/2023 1:00 PM EDT Radiology Service Progress Note PATIENT NAME: Temitope Haddad DATE OF SERVICE: March 22, 2023 TIME: 1:00 PM PATIENT IDENTITY VERIFICATION COMPLETED USING TWO (2) IDENTIFIERS: Name and Date of confirmedby patient verbally. FALL SCREENING: Has the patient had 2 falls in the last year or 1 fall with injury or currently using an Ambulatory Assistive Device (Walker, Cane, Wheelchair, Crutches, etc.)? No PATIENT GENDER DATA: Female. status: : No status: NO. PATIENT RELEVANT IMPLANT DATA REVIEWED: Not Applicable RADIOLOGY DEPARTMENT: Mammography PERIPHERAL IV DATA: Not applicable SIGNED BY: RT Ariadne(R) March 22, 2023 1:00 PM documented in this encounterGerman Hospital10-19-2023 Miscellaneous Notes* Telephone Encounter - Nova Falk APRN.CNP - 03/16/2023 3:26 PM EDT Phone call to patient to discuss results and recommendations for lung nodule follow up: [address] Chest. Pt states she has a lung doctor and wishes to follow up with them instead. She is asking to be discharged from our program. She is aware that if she wants to have screening CT scans done at [facility] in the future she will need to get re-enrolled in the Lung Cancer Screening Program. documented in this encounterGerman Hospital10-19-2023 Miscellaneous Notes* Telephone Encounter - Tracy Aviles RN - 03/16/2023 9:54 AM EDT Called [facility] who confirmed the antibiotic Cipro was just called in. They state it will be several hours til they can get it ready. Called and notified pt. ER f/u appt also made for pt for 03/21 at [address] Ronquillo. * Telephone Encounter - Tracy Aviles RN - 03/16/2023 9:30 AM EDT Called and spoke with nurse Juliana at [facility] ER who confirmed that pt was given a prescription for Cipro and that it was sent electronically to [facility] with a receipt confirmed by pharmacy. Juliana states she will call it in to the pharmacy. * Telephone Encounter - Tracy Aviles RN - 03/16/2023 9:26 AM EDT Called and spoke with pt again regarding antibiotic prescription. Pt states she did not get a papercopy and that she told the [facility] ER provider to send the script to [facility]. * Telephone Encounter - Tracy Aviles RN - 03/16/2023 9:17 AM EDT Called and spoke with someone at [facility] pharmacy who confirms they were closed the last 4 days due to not having a pharmacist. She also checked records and there is no ciprofloxacin prescription in pt's history. * Telephone Encounter - Tracy Aviles RN - 03/16/2023 8:44 AM EDT Please hold off on approving refill requests. Called pt as she should have refills at [facility] pharmacy in [place]. Per pt, she states they have been closed for 4 days. Pt was also in [facility] ER on Monday the and prescribed an antibiotic for a kidney infection. 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 Will follow up with pharmacy and return call to pt. * Telephone Encounter - Talita Preston LPN - 03/16/2023 8:20 AM EDT [facility] 01/26/23 NOV 07/27/23 * Telephone Encounter - Josue Sweeney - 03/15/2023 5:07 PM EDT Patient has been identified by name and date of : Yes Last office visit in this department: 01/26/2023 RX INSTRUCTIONS: Patient aware RX will be sent to pharmacy. No need to notify patient. Patient phones requesting refills as follows: Requested Prescriptions Pending Prescriptions Disp Refills atorvastatin (LIPITOR) 20 mg tablet 30 tablet 11 Sig: Take 2 tablets by mouth daily at bedtime. For cholesterol. alendronate (FOSAMAX) 70 mg tablet 12 tablet 3 Sig: Take 1 tablet by mouth one time a week. Take with a full glass of water, on an empty stomach; do NOT lie down for 30minutes. Please review and advise. Josue Sweeney documented in this encounterGerman Hospital10-18-2023 Miscellaneous Notes* Telephone Encounter - Enriqueta Grubbs MA - 03/15/2023 2:53 PM EDT Phone call to patient regarding below. Pt states that there is a sign on the door at [facility] that they're closed and [facility]. Patient just wanting to update office. 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 Onewas a medication that she thinks was from [facility]-an antibiotic but does not know the name. The other may be Lipitor and albuterol. Please call to review situation. TY documented in this encounterGerman Hospital10-17-2023 History of Present illness Narrative* Juliann Blanc RT(R) - 03/14/2023 1:20 PM EDT Radiology Service Progress Note PATIENT NAME: Temitope Haddad DATE OF SERVICE: March 14, 2023 TIME: 3:44 PM PATIENT IDENTITY VERIFICATION COMPLETED USING TWO (2) IDENTIFIERS: Name and Date of confirmedby patient verbally. FALL SCREENING: Has the patient had 2 falls in the last year or 1 fall with injury or currently using an Ambulatory Assistive Device (Walker, Cane, Wheelchair, Crutches, etc.)? No PATIENT GENDER DATA: Female. status: : No status: NO. PATIENT RELEVANT IMPLANT DATA REVIEWED: Yes RADIOLOGY DEPARTMENT: CT; Exam(s) Completed: Chest PERIPHERAL IV DATA: Not applicable SIGNED BY: RT Mandeep(R) March 14, 2023 3:44 PM documented in this encounterGerman Hospital10-16-2023 Discharge summary Author Eduardo Ely [facility] March 13, 2023 8:30pm Note Date/Time March 13, 2023 4 :43pm [facility] Medical Records Department [address] [place] [address] Emergency Department Summary 03/13/23 MR#: [id number] Acct: [id number] Name: TEMITOPE CASTELLON Rep #:[id number] : 1955 67 From: Eduardo Ely DO PCP: Dr. Bird Ronquillo MD Status :REG ER Location: ED HPI HPI - GI History of Present Illness Chief Complaint: Flank Pain Narrative Narrative: 67-year-old female presenting with right flank pain. She states has been there for about 3 months. She states she sees her primary care physician Dr. Ronquillo and she states that she had a CT scan done about a month ago which showed something wrong with her kidney and she was told to come to the ER today and specifically said that her right kidney was abnormal. She states that she believes that he did blood work but cannot recall how long ago. She does not have any urinary frequency, dysuria. She states she has a history of kidney stones. She has not a fever but feels nauseous. Right flank and in the right lower part of her back. Denies any trauma. [facility] Medical History Abdominal pain Abnormal Holter monitor finding Acute dysfunction of both eustachian tubes Acute seasonal allergic rhinitis Acute serous otitis media Ambulates with cane Anxiety Anxiety disorder Arthritis Atherosclerotic heart disease of [place] coronary artery without angina pectoris Bronchitis Bruising CAD (coronary artery disease) Chest pain Constipation COPD (chronic obstructive pulmonary disease) Depression Diaphragm paralysis Difficulty chewing Difficulty swallowing Easy bruising Essential hypertension Former smoker Fuchs' corneal dystrophy Gastric reflux High cholesterol History of cerebrovascular disease History of CVA (cerebrovascular accident) History of echocardiogram History of heart attack History of hiatal hernia History of IBS History of irregular heartbeat History of renal disease History of stress test HTN (hypertension) Hypothyroidism Hypoxia Internal impingement of right shoulder Mixed hyperlipidemia Restless legs Shortness of breath on exertion Sinus pause Skin tear Stroke/cerebrovascular accident Thigh pain Thyroid disease Traumatic avulsion of nail plate of toe Wears dentures Wears glasses Home Medications cholecalciferol (vitamin D3) 125 mcg (5,000 unit) capsule 5,000 unit PO DAILY SUPPLEMENT 08/14/18 [History Last Taken 06/07/22] citalopram 10 mg tablet 10 mg PO DAILY DEPRESSION 08/17/21 [History Last Taken 06/07/22] levothyroxine 50 mcg tablet 50 mcg PO DAILY THYROID 08/17/21 [History Last Taken 06/07/22] clopidogrel 75 mg tablet 75 mg PO DAILY BLOOD THINNER 30 days #30 tabs 06/08/22 [Rx Last Taken 07/13/22] atorvastatin 40 mg tablet 40 mg PO DAILY 07/01/22 [History Last Taken Unknown] losartan 25 mg tablet 25 mg PO DAILY #90 tabs 09/29/22 [Rx Last Taken Unknown] dicyclomine 10 mg capsule 20 mg (2 x 10 mg) PO Q6H PRN PRN abdominal discomfort #30 CAPSULES 10/21/22 [Rx Last Taken Unknown] ondansetron 4 mg disintegrating tablet 8 mg (2 x 4 mg) PO Q8H PRN PRN Nausea #15tabs 10/21/22 [Rx Last Taken Unknown] oxycodone-acetaminophen 5 mg-325 mg tablet 1 tab PO Q6H PRN PRN pain 5 days #20 TABLETS 11/16/22 [Rx Last Taken Unknown] cyclobenzaprine 10 mg tablet 10 mg PO TID PRN Muscle Spasm #20 TABLETS 12/01/22 [Rx Last Taken Unknown] albuterol sulfate 90 mcg/actuation aerosol inhaler 2 puff inhalation Q6H PRN Shortness Of Breath #3 ea 12/14/22 [Rx Last Taken Unknown] budesonide 160 mcg-glycopyr 9 mcg-formot 4.8 mcg/actuation HFA inhaler (Breztri Aerosphere) 2 inh inhalation BID #3 ea 12/14/22 [Rx Last Taken Unknown] levocetirizine 5 mg tablet (Allergy Relief (levocetirizine)) 5 mg PO DAILY ALLERGIES #90 tabs 12/14/22 [Rx Last Taken Unknown] ciprofloxacin HCl 500 mg tablet (Cipro) 500 mg PO BID #14 tabs 03/13/23 [Rx Last Taken Unknown] Allergy/AdvReac Type Severity Reaction Status Date / Time hydrocodone bitartrate Allergy HALLUCINATE Verified 03/13/23 15:41 [From Vicodin] S piperacillin [From Zosyn] Allergy Hives Verified 03/13/23 15:41 tazobactam [From Zosyn] Allergy Hives Verified 03/13/23 15:41 vancomycin Allergy Rash Verified 03/13/23 15:41 fish derived AdvReac Anaphylaxis Verified 03/13/23 15:41 morphine AdvReac HALLUCINATE Verified 03/13/23 15:41 S Family History Mother Diabetes Heart disease Hypertension High cholesterol Father Heart disease Hypertension High cholesterol CVA (cerebral vascular accident) Surgical History History of bilateral cataract extraction History of right breast biopsy History of shoulder surgery History of surgery on lower extremity History of tubal ligation Social History household members: significant other housing: apartment pets and animals: Yes pets and animals: dog(s) Smoking Status: Former smoker quit date: 10/28/19 pack-years: 25 Tobacco: How many years used: 25 second hand exposure: Yes alcohol intake: never substance use type: does not use caffeine: Yes Type: coffee Number of servings: 1 ROS ROS ED Constitutional Constitutional ED: Denies chills, fever(s) or sweats Eyes Eyes: Denies blurry vision or change in vision ENT ENT ED: Denies ear pain or sore throat Cardiovascular Cardiovascular: Denies chest pain, palpitations or racing heartbeat Respiratory/Chest Respiratory/Chest: Denies cough, dyspnea or sputum Gastrointestinal Gastrointestinal: Reports abdominal pain and nausea; Denies constipation, diarrhea or vomiting Genitourinary Genitourinary ED: Denies dysuria, hematuria or urinary frequency Musculoskeletal Musculoskeletal: Reports back pain; Denies arthralgias, myalgias or neck pain Integumentary Denies abscess, Abrasions or rash Neurologic Neurologic: Denies headache(s), paresthesias or weakness Psychiatric Psychiatric: Denies anxiety, depression, suicidal ideation or suicidal thoughts Endocrine Endocrinology: Denies polydipsia or polyuria EXAM Physical Exam Const Vital Signs: 03/13/23 15:41 Temperature 97.3 F L Temperature Source Temporal Pulse Rate 62 Respiratory Rate 16 Blood Pressure 149/73 H Blood Pressure Mean 98 Pulse Ox 97 Oxygen Delivery Method Room Air Positive well nourished General Appearance ED: NAD; Negative for pallor HEENT Reports moist mucous membranes normocephalic Eyes PERRL and EOMs intact bilaterally Resp normal respiratory effort and clear to auscultation bilaterally Cardio regular rate and regular rhythm GI non-tender Back/Spine Back/Spine Narrative: Right lumbar paraspinal musculature tenderness. There is also right-sided CVA tenderness. Neuro CN's II-XII intact bilaterally Sensorium / Orientation: alert Motor Exam: strength 5/5 throughout Psych mental status grossly normal Skin General Skin Exam: Negative for jaundice or pallor MDM MDM MDM Narrative Medical decision making narrative: 67-year-old female presenting with right flank pain. She is already had a CT scan performed of her abdomen and there is something structurally wrong with herkioscar although this was a month ago. She states she was referred here today for this problem. Patient states the pain has been ongoing for months. Patientpresenting with right flank pain. Differential includes colitis, diverticulitis, gastritis, pancreatitis, constipation, UTI, pyelonephritis, renal calculi, ureteral calculi, bowel obstruction, malignancy, dehydration, electrolyte abnormalities, , ectopic , ovarian cyst, ovarian torsion. Patient not concern for . CBC will be obtained to assess white blood cell count, hemoglobin, platelets. P to assess liver function, renal function, electrolytes. Lipase to assess for pancreatitis. Alysis to assess for UTI. Creatinine normal at 1.01 however GFR is 58. I did obtain a abdominal pelvis CT with IV contrast which does not show anything acute. Structurally her kidney is normal. No evidence of pyelonephritis. Patient doeshave leukocyte esterase, 10-25 white blood cells, with 0-5 squamous epithelial cells and no bacteria in the urine. Given that she having flank pain has not been an ongoing issue I will cover her for pyelonephritis. She is given Cipro with first dose in the ED. He is given a prescription for this for home. I recommended that she follow-up with her PCP was resolution. Return precautions were discussed. Impression: 1. Right flank pain 2. Pyelonephritis Lab Data Attestation: I reviewed the patient's lab results. Labs: Laboratory Results - last 24 hr 03/13/23 03/13/23 16:36 16:45 WBC 5.3 RBC 4.58 Hgb 13.8 Hct 43.7 MCV 95.4 MCH 30.1 MCHC 31.6 L RDW Std Deviation 44.2 H RDW Coeff of Keo 12.6 Plt Count 181 MPV 8.9 Immature Gran % (Auto) 0.200 Neut % (Auto) 68.6 Lymph % (Auto) 24.2 [place] % (Auto) 5.1 Eos % (Auto) 1.1 Baso % (Auto) 0.8 Absolute Neuts (auto) 3.6 Absolute Lymphs (auto) 1.28 Nucleated RBC % 0 Sodium 141 Potassium 4.4 Chloride 109 H Carbon Dioxide 29.0 Anion Gap 3 L BUN 20 H Creatinine 1.01 Estim Creat Clear Calc 51.99 Est GFR (MDRD) Af Amer 71 Est GFR (MDRD) Non-Af 58 L BUN/Creatinine Ratio 19.8 Glucose 86 Calcium 9.1 Total Bilirubin 0.40 Direct Bilirubin 0.13 AST 26 ALT 42 Alkaline Phosphatase 69 Total Protein 7.0 Albumin 3.5 Globulin 3.5 Lipase 20 Urine Color Yellow Urine Clarity Clear Urine pH 6.0 Ur Specific [place] 1.015 Urine Protein 15 H Urine Glucose (UA) Normal Urine Ketones Negative Urine Occult Blood 10 H Urine Nitrite Negative Urine Bilirubin Negative Urine Urobilinogen Normal Ur Leukocyte Esterase 500 H Urine RBC 0 SEEN Urine WBC 10-25 SEEN Ur Squamous Epith Cells 0-5 SEEN Urine Bacteria 0 SEEN Urine Mucus 0 SEEN Radiography Diagnostic Testing: Clinical Impression(s) from Imaging Studies Abdomen/Pelvis CT 03/13/23 17:30 IMPRESSION: Increased stool. No acute disease. Electronically Signed: Jovanni Urias MD at 19:34 EDT , Discharge Plan Triage Chief Complaint: Flank Pain ED Provider: Eduardo Ely Dx/Rx/DC Orders Instructions: ED Pyelonephritis, Female (Adult) Prescriptions: New ciprofloxacin HCl [Cipro] 500 mg tablet 500 mg PO BID Qty: 14 0RF No Action cholecalciferol (vitamin D3) 5,000 unit capsule 5,000 unit PO DAILY citalopram 10 mg tablet 10 mg PO DAILY levothyroxine 50 mcg tablet 50 mcg PO DAILY atorvastatin 40 mg tablet 40 mg PO DAILY losartan 25 mg tablet 25 mg PO DAILY Qty: 90 3RF Breztri Aerosphere 160-9-4.8 mcg/actuation HFA aerosol inhaler 2 inh inhalation BID Qty: 3 3RF albuterol sulfate 90 mcg/actuation HFA aerosol inhaler 2 puff inhalation Q6H PRN (Reason: Shortness Of Breath) Qty: 3 3RF levocetirizine [Allergy Relief (levocetirizin)] 5 mg tablet 5 mg PO DAILY Qty: 90 3RF clopidogrel 75 MG tablet 75 mg PO DAILY 30 Days Qty: 30 0RF dicyclomine 10 mg capsule 20 mg PO Q6H PRN PRN (Reason: abdominal discomfort) Qty: 30 0RF ondansetron [ondansetron] 4 mg tablet,disintegrating 8 mg PO Q8H PRN PRN (Reason: Nausea) Qty: 15 0RF oxycodone-acetaminophen [oxycodone-acetaminophen] 5-325 mg tablet 1 tab PO Q6H PRN PRN (Reason: pain) 5 Days Qty: 20 0RF cyclobenzaprine 10 mg tablet 10 mg PO TID PRN (Reason: Muscle Spasm) Qty: 20 0RF Primary Care Provider: Bird Ronquillo Referrals: Bird Ronquillo MD [Primary Care Provider] - What to do if you have Problems For any increased pain, shortness of breath, bleeding, nausea or vomiting, chestpain, or any unexpected problems, contact your Primary Care Provider. Call [facility] ([phone]) or report to the closest Emergency Room. Call 911 if necessary. 03/13/232029 <Electronically signed by Eduardo Ely DO> Cosigner Signature (if applicable): CC: Dr. Bird Ronquillo MD ~ Signed [facility] Work Phone: [phone] 387-309710-16-2023 Miscellaneous Notes* Letter - Coordinator, Mammography - 03/13/2023 4:14 PM EDT March 14, 2023 PID: [id number] Temitope Haddad [address] [address] Dear Ms. Haddad, Your prior imaging studies have arrived and been compared to your current study performed on 02/23/2023 which showed a possible finding that requires additional imaging studies for a complete evaluation. Most such findings are probably benign (not cancer). If you have a healthcare provider who ordered/prescribed your screening mammogram: Please call [phone] or EXT: [phone] to schedule an appointment for your additional imaging (if youhave not already done so). If you DO NOT have a healthcare provider (ie you did not have an order/prescription for your screening mammogram): Please call to schedule an appointment for your additional imaging (if you have not already done so). You must have an order/prescription from your physician when calling to schedule your appointment. If your order/prescription is not electronic, you must bring the hard copy with you on the day of your exam to avoid delays. Your imaging studies and reports are kept on file at [facility] as part of your permanent medical record, and are available for your continuing care. Thank you for allowing us to help in meeting your health care needs. Sincerely, Dr. Hoover Interpreting Radiologist [facility] (compared needs addl imaging) documented in this encounterGerman Hospital10-11-2023 Miscellaneous Notes* Telephone Encounter - Yumiko Sarkar RN - 03/08/2023 1:26 PM EDT Pt called and is notified of providers message and instructions. Pt voices understanding. Yumiko Sarkar RN * Telephone Encounter - Tatiana Ronquillo MD - 03/08/2023 1:17 PM EDT I would have her take calcium without vitamin D as she is already taking 5,000 units of cholecalciferol which is vitamin D. * Telephone Encounter - Talita Castellon LPN - 03/08/2023 1:07 PM EDT Pt states she bought calcium 600mg with D3 20mcg & is asking if it is ok for her to take? Pt also takes cholecalciferol 5000 unit caps & foszmax 70mg. Please advise. Talita Castellon LPN documented in this encounterGerman Hospital10-06-2023 Miscellaneous Notes* Telephone Encounter - Laura Haji LPN - 03/03/2023 1:32 PM EDT Patient in this day requesting Atorvastatin 40mg be filled. Was filled at her last PCP and hasn't been filled here yet. Please fill at [facility]. Please review and advise. Laura Haji LPN documented in this encounterGerman Hospital10-04-2023 Miscellaneous Notes* Telephone Encounter - Laura Haji LPN - 03/01/2023 4:30 PM EDT Patients in this day upset over medication being requested on 02/15/2023 not being refilled at correct pharmacy([facility]). Upon looking it appears medication was sent to correct pharmacy [facility] as requested on 02/15/2023. [facility] called by this nurse. Spoke with clinical pharmacy coordinator, they state refill was too soon yet. It had been sent to [facility] that same day but discontinued and then sent to [facility]. coordinate measuring machine technician reran order this day and it went through, will fill for pickup. 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 Made aware if ever has any further issues tocall the office and we would be happy to help. agreeable and left with no issues. aLura Haji LPN documented in this encounterGerman Hospital10-04-2023 History of Present illness Narrative* Yamile Cordero, PT - 03/01/2023 3:44 PM EDT Episode Visit Count: 1 Therapist That Will Accept/Oversee The Plan Of Care: Yamile Codrero Start of Care Date: 03/01/23 Onset Date: 09/29/22 Plan of Care Certification Date: 03/01/23 Next Certification Due Date: 04/05/23 Patient Identified by Name and Date of : Yes REHABILITATION AND SPORTS THERAPY PHYSICAL THERAPY EVALUATION PLAN OF CARE: Assessment: Temitope Haddad presents with diagnosis of lumbar spondylosis and coccyodynia that interferes with stair negotiation, bending, sitting, driving (walking uphill, no pain with walking down hill/steps.) . She presents with impairments in ADL's, balance, flexibility, gait, independence in exercise, joint mobility, overall function, patient reported outcome measures, posture, range of motion, strength, and symptom management. PROMIS (Patient-Reported Outcomes Measurement Information System) scores were reviewed and physical function domain and self efficacy domain identified as within normal limits. Prognosis for therapy is Good due to: within-session changes, good support system/ [place]ills, acuteness of condition, current objective clinical presentation . She will benefit from skilled therapy services to meet the goals established for this plan of care as noted below. Classification Low Back Pain Subgroup Classification: Specific exercise subgroup: recommended visits 8. Specific Exercies Subgroup Classification based on: directional preference, centralization Goals for Episode of Care: created on 03/01/23 through 04/12/23 Independent in home exercises. Patient will decrease pain rating by 2 points to meet minimal clinical important difference for numeric pain rating scale. Restore pain-free lumbar AROM flexion to minimal to no limitation to allow for bending and seated activities without increased symptoms. Sit 1 hours without pain/symptoms to allow for seated activities. Maintain proper sitting posture throughout session Patient will be able to tolerate driving for 1 hours without increased symptoms. Patient Goals: sit for an hour or greater without increased symptoms Planned Interventions, Frequency, and Duration: Current Frequency: 2x/week Duration: 6 weeks Total Number of Visits Planned: 12 Planned Treatment Interventions: Therapeutic exercise (26109), Neuromuscular re- education (68495), Manual therapy (85030) PLAN FOR NEXT VISIT: Continue TA stabilization in hook lying. Assess symptom response to KTC stretch. Continue flexion directional preference if symptoms continue to centralize. Address gait deviations and assess fall risk Patient demonstrates good understanding of plan of care and treatment. The above goals and plan of care were discussed and agreed upon by patient/family. SUBJECTIVE: for chronic low back pain that increased September 2022 without specific injury. Pain becomes worse and peripherlizes to B hips and thighs (not distal to the knee) with prolonged sitting, bending, walking uphill or going up steps. Pain reduces with laying supine. Denies history of lumbar surgery. Multiple CVA's and falls in the past. Uses an SC in the community as needed. Presents without AD today. Patient Goals: sit for an hour or greater without increased symptoms Functional Limitations: stair negotiation, bending, sitting, driving (walking uphill, no pain with walking down hill/steps.) Prior Level of Function: Independent without limitations Relevant History Past Relevant Medical Conditions: Falls, Headaches, Cerebral Vascular Accident, COPD, Hypertension,Thyroid Disease Hobbies / Interests: hiking, horseback riding, camping. Home Environment Equipment Owned: Cane Intake Information: Prescription present Previous Treatment: Topicals, Chiropractor (occipital nerve blocks- much anxiety regarding injections) Falls Interview: Two or more falls in the last year, Comments Falls Intervention: Instructed patient on safety and use of assistive device and awareness in regards to falls prevention., More thorough falls assessment to be performed Falls Comments: uses a cane when she feels off balance. Red Flags Vertebral Fracture Red Flags: Female Vertebral Fracture Clinical Reasoning: Proceed with caution due to the above (1- 2) risk factors Abdominal Aortic Aneurysm Red Flags: Age >60 Abdominal Aortic Aneurysm Clinical Reasoning: Proceed with caution Cancer Red Flags: Age >50 or <20 Cancer Clinical Reasoning: Proceed with caution Infection Clinical Reasoning: No identified risk factors. Cauda Equina Syndrome Clinical Reasoning: No identified risk factors. Red Flags - Cervical Cancer Red Flags: Age >50 or <20 Cancer Clinical Reasoning: Proceed with caution Infection Clinical Reasoning: No identified risk factors. Spine History Symptoms Location at Onset: Back, Thigh Symptoms Since Onset: Improving Pain is Worse Always: Sitting, Driving, Prolonged positions, Bending Pain is Better Always: Lying Sleep Affected by Pain: Not affected by pain (restless leg syndomre) Pain: Pain Pain Level: 5 Pain Location: Low Back/Lumbar Spine- Midline Description: Aching Frequency: With movement, Sitting (weight shifting) Post Treatment Pain Post Treatment Pain Level: 2 Post Treatment Pain Location: Low Back/Lumbar Spine- Midline Post Treatment Symptoms: resolved hip pain with postural correction, improved low back pain PROMIS Scales Higher is Better 03/01/2023 Phys Func - Score 47 (within normal limits) Phys Func - Percentile 38 % Self-Eff Symptom - Score 58 (Average) Self-Eff Symptom - Percentile 79 % T-scores: mean of general population = 50. 5 points is clinically meaningfully difference Percentiles provide an indication of how the patient's score ranks in relation to the general population. Higher percentile rankings indicate better function/quality of life. 50th percentile is the average of the general population and indicates half of respondents had a worse score. OBJECTIVE MEASURES WITH LEVEL OF FUNCTION: Posture / Alignment Posture: Forward head, Increased thoracic kyphosis, Decreased lumbar lordosis Sitting Posture: Perched, Sits on right ischial tuberosity, Decreased lumbar lordosis Effects of Posture Correction: improves Lumbar Spine AROM Lumbar Flexion: Moderate limitation, Produces, Peripheralizing Lumbar Extension: Centralizing, Produces, Major limitation (B hips) Lumbar R Side Pease: Normal, Produces (R hip) Lumbar L Side Pease: Normal, Produces (R hip) Lumbar R Side-Bend: Moderate limitation, Produces (R hip) Lumbar L Side-Bend: Moderate limitation, Produces (R hip) Repeated Test Movements - Lumbar Other Lumbar Repeated Test Movements: Yes Other Repeated Test Movements - Lumbar RFISit / Symptoms During: decreases RFISit / Symptoms After: increase ROM, centralized, better (better per pt. report, centralizes from thigh to hip, and to low back) Static Testing - Lumbar Sit Erect: worse Gait Gait: Independent Gait Distance (feet): 50 Gait Device: None Gait Deviations: General Deviations General Deviations/Observations: Tiffany decreased, Flexed trunk posture (lacks heel strike) Gait Observation: improves with cues to increase step length and heel strike bilaterally Education: Education Learning Preferences: Demonstration, Explanation, Performance, Printed Materials Barriers: None Learning/educational needs: Plan of Care, Home exercise program, Posture Education Provided: Yes, see treatment interventions for education provided Education Provided To: Patient Education Mode/Type: Demonstration, Explanation/Discussion, Literature/Printed Materials, Performance Response to Education/Teach Back: States/Identifies, Return Demonstration TREATMENT: PT Treatment Interventions: Therapeutic Exercise, Self-Correction Management, Gait Training Evaluation Therapeutic Exercise: 1: *Supine Double Knee to Chest - 3 x daily - 7 x weekly - 3 sets - 1 reps - 30 hold 2: *Supine Transversus Abdominis Bracing - Hands on Stomach - 2 x daily - 7 x weekly - 2 sets - 10 reps Skilled Intervention: Patient was educated in proper exercise technique and purpose for exercises. Skilled judgment was provided in selection of appropriate interventions. Provided written instruction for home exercise program to facilitate proper performance and compliance. Correct performance of therapeutic exercises was facilitated with verbal, visual, and tactile cuing. Educated patient on rationale for performing exercises in regards to decreasing fatigue , increase ease of ADL, and ROM and function . Patient education as noted. Gait Training: Distance (feet): 25 Gait Cues: heel strike and increased step length Assistive Device: none Assist Level: supervision - pt. reports L hip pain improved. Skilled Intervention: Patient was provided supervision during pre-gait/gait training to prevent falls and insure safety. Correct performance of home program was facilitated with verbal, visual, and tactile cueing. Self-Correction Management: 1: *postural education- avoid perching Skilled Intervention: Skilled judgment in the selection of proper modification for activity of daily living/home management based on clinical presentation, deficits, and needs. Provided written instruction for activities of daily living techniques to facilitate proper performance and compliance. Reviewed patient specific diagnosis in relation to activities of daily living/home management. Activity progression based on professional judgement. Provided written instruction for home program to facilitate proper performance and compliance. Correct performance of home program was facilitated with verbal, visual, and tactile cueing. Billing * Evaluation Low Complexity: 1 Unit Therapeutic Exercise Treatment Minutes: 10 Self-Care/Home Management Treatment Minutes: 10 Gait Training Treatment Minutes: 5 Skilled Treatment Time Minutes (timed and untimed codes): 45 Total Session Time (minutes): 45 Session Start Time : 1545 Session Stop Time : 1630 Yamile Cordero PT documented in this encounterGerman Hospital09-30-2023 Miscellaneous Notes* Telephone Encounter - Rosaura Tristan Ma - 02/25/2023 9:28 AM EDT Call to pt and notified her of results and recommendation below from Provider. Gave pt Diagnostic call back number to schedule appt. Rosaura Tristan Ma * Telephone Encounter - Tatiana Ronquillo MD - 02/25/2023 6:52 AM EDT Screening mammogram incomplete. Needs additional imaging to further characterize asymmetry in left breast. Diagnostic mammogram and US ordered. Please assist patient with scheduling. documented in this encounterGerman Hospital09-28-2023 History of Present illness Narrative* Mary Felix Baylos Morejon - 02/23/2023 1:10 PM EDT Radiology Service Progress Note PATIENT NAME: Temitope Haddad DATE OF SERVICE: February 23, 2023 TIME: 1:12 PM PATIENT IDENTITY VERIFICATION COMPLETED USING TWO (2) IDENTIFIERS: Name and Date of confirmedby patient verbally. FALL SCREENING: Has the patient had 2 falls in the last year or 1 fall with injury or currently using an Ambulatory Assistive Device (Walker, Cane, Wheelchair, Crutches, etc.)? No PATIENT GENDER DATA: Female. status: : No status: NO. PATIENT RELEVANT IMPLANT DATA REVIEWED: Not Applicable RADIOLOGY DEPARTMENT: Mammography PERIPHERAL IV DATA: Not applicable SIGNED BY: Bay Becko Darleen February 23, 2023 1:12 PM documented in this encounterGerman Hospital09-28-2023 History of Present illness Narrative* Bailee Thompson RT(R) - 02/23/2023 12:20 PM EDT Radiology Service Progress Note PATIENT NAME: Temitope Haddad DATE OF SERVICE: February 23, 2023 TIME: 12:41 PM PATIENT IDENTITY VERIFICATION COMPLETED USING TWO (2) IDENTIFIERS: Name and Date of confirmedby patient verbally. FALL SCREENING: Has the patient had 2 falls in the last year or 1 fall with injury or currently using an Ambulatory Assistive Device (Walker, Cane, Wheelchair, Crutches, etc.)? Yes, Patient High Riskfor Falls What interventions were put in place to prevent falls during this visit? Increased Observations by Caregivers PATIENT GENDER DATA: Female. status: : No status: NO. PATIENT RELEVANT IMPLANT DATA REVIEWED: Not Applicable RADIOLOGY DEPARTMENT: LUMBAR, AP/LAT/FLEX/EXT WT BEARING PERIPHERAL IV DATA: Not applicable SIGNED BY: RT Marcia(R) February 23, 2023 12:41 PM documented in this encounterGerman Hospital09-20-2023 Miscellaneous Notes* Telephone Encounter - Tatiana Ronquillo MD - 02/15/2023 12:07 PM EDT Rx sent to [facility] as requested. * Telephone Encounter - Katlyn Farias Ma - 02/15/2023 12:02 PM EDT Please resend to [facility] pharmacy Katlyn Farias Ma * Telephone Encounter - Maia Sorenson - 02/15/2023 11:54 AM EDT Patient would like to know why Fosamax was sent to [facility] instead of [facility] and [facility]. Please advise and call patient. * Telephone Encounter - Tatiana Ronquillo MD - 02/14/2023 5:21 PM EDT Rx sent. * Telephone Encounter - Laura Haji LPN - 02/14/2023 4:55 PM EDT Patient notified. Please send rx to [facility] in [place]. Laura Haji LPN * Telephone Encounter - Laura Haji LPN - 02/14/2023 4:53 PM EDT ----- Message from Tatiana Ronquillo MD sent at 02/13/2023 11:12 AM EDT ----- Patient's DXA scan shows osteopenia with high hip fracture risk. Recommend treatment with weekly fosamax to help improve bone density and reduce risk for fractures. If agreeable, will send rx. Recheck DXA 2-4 years. documented in this encounterGerman Hospital09-12-2023 Instructions* Patient Instructions* Nova Falk APRN.ENVIRONMENTAL PROJECTS ADVISOR - 02/07/2023 2:03 PM EDT Images from the original note were not included. Frequently Asked Questions: How common are lung nodules? Nodules are found in up to half of adults who get a chest x-ray or CT scan. Do nodules cause any symptoms? In general, small nodules don t cause any noticeable problems. They re too small to cause pain or breathing problems. Should I worry that I have a nodule? Most nodules are not cancer, but for a small number of people the nodule may returned goods inspector to be an early cancer. Your doctor can tell if your nodule is lung cancer by: Seeing how it looks on the CT scan. Seeing whether it grows over time. A nodule that grows larger over time is a sign that it could be a cancer. Taking a sample of the nodule with a needle or surgery. Most people with a nodule will NOT need to have this test. What is the chance that the nodule is an early lung cancer? Fewer than 5% of all nodules returned goods inspector to be cancer What if my nodule is lung cancer? Even if a nodule turns out to be lung cancer, it is likely to be an early stage lung cancer. Peoplewith early stage lung cancer that is treated are less likely to than people who are diagnosed at a later stage when the cancer has started to cause symptoms. What will happen next? Your healthcare team will probably recommend getting more CT scans to keep a close eye on the nodule to see if it changes. We call this active surveillance. ? If a nodule is not cancer, it usually won t grow. If the nodule doesn t grow over a 2-year period, it is very unlikely to be cancer. Most of the time, it is safe to stop watching nodules if there is no growth over a 2-year period. ? On the other hand, if the nodule is getting bigger, it should be looked at more closely to see ifit is lung cancer. Nodules can be viewed more closely using different radiology studies or by biopsy (using a needle or surgery to take a sample of the nodule to look at under a microscope). Your healthcare team will determine which is best for you. Why shouldn t I get a biopsy now? ? A biopsy means removing a piece of your lung in order to look at it under a microscope. Biopsies are usually not recommended when nodules are small because it is very difficult to biopsy them safely. ? Doing a biopsy when a nodule is small can cause harm such as collapse of the lung, bleeding, or infection. Is it really safe to wait for the next CT scan? Most cancers grow fairly slowly, and it takes several months for them to get bigger. So even if thenodule is lung cancer, it will likely still be small in a few months. Even if the nodule is lung cancer that is growing, there is a very good chance that surgery or radiation will cure you. Waiting a few months for the next CT scan is very safe and should not affect the treatment you receive or your chances for cure if the nodule turns out to be cancer. How does my clinician decide when to do the next CT scan? There are several guidelines for how to decide when to get the next CT scan. These guidelines are based on the chance the nodule is lung cancer and how big the nodule might be at the time of the next scan. Your healthcare provider will determine the best time for your next CT scan based on these guidelines. Your healthcare provider may choose to discuss the CT results with other specialists to determine the best plan for you. What if I m a smoker? Quitting now will decrease your chance of getting lung cancer in the future, as well as many other serious health problems like emphysema and heart disease. Some people think that if they already have lung cancer, they might as well keep smoking. THAT IS WRONG. Plan for follow-up: Repeat imaging at 3 months from initial scan. documented in this encounterGerman Hospital09-12-2023 History of Present illness Narrative* Daniel Henriquez, RT(R) - 02/07/2023 2:00 PM EDT Radiology Service Progress Note PATIENT NAME: Temitope Haddad DATE OF SERVICE: February 07, 2023 TIME: 1:40 PM PATIENT IDENTITY VERIFICATION COMPLETED USING TWO (2) IDENTIFIERS: Name and Date of confirmedby patient verbally. FALL SCREENING: Has the patient had 2 falls in the last year or 1 fall with injury or currently using an Ambulatory Assistive Device (Walker, Cane, Wheelchair, Crutches, etc.)? No PATIENT GENDER DATA: Female. status: : No status: NO. PATIENT RELEVANT IMPLANT DATA REVIEWED: Not Applicable RADIOLOGY DEPARTMENT: Bone Density PERIPHERAL IV DATA: Not applicable SIGNED BY: RT Waqar(R) February 07, 2023 1:40 PM documented in this encounterGerman Hospital09-12-2023 History of Present illness Narrative* Nova Falk APRN.ENVIRONMENTAL PROJECTS ADVISOR - 02/07/2023 1:05 PM EDT Images from the original note were not included. LUNG SCREENING VISIT PRIMARY CARE PHYSICIAN: Tatiana Ronquillo MD PULMONARY PROVIDER: Dr. Arslan Love Results will be communicated via letter or electronic record if applicable. Visit Delivery: In Person Patient Visit Type: New to Screening Current or Ex-smoker? ex smoker Exam Type: baseline LDCT Number of Pack Years: 65 Number of Years since Quit: 2 REQUESTER: The referring provider advised the patient to have screening. HISTORY OF PRESENT ILLNESS: Temitope Haddad (Temitope Castellon) is a 67 year old Former smoker who presents for lung screening. Shortness of breath, coughing, chest pain was under a lot of stress. Respiratory symptoms include: SOB: Yes, stairs or walking up a hill, or the humidity Chest tightness: No Coughing: Yes: Without mucus sometimes Hemoptysis: No Wheezing: Yes, at times Fever/Chills: No Recent Respiratory Infection: No Unintentional weight loss: No Last 6 Encounter Wt Readings: Date: Wt: 02/07/2023 67.1 kg (148 lb) 01/26/2023 68 kg (150 lb) 12/19/2022 67.8 kg (149 lb 6.4 oz) 11/07/2022 69.5 kg (153 lb 3.2 oz) 05/05/2022 70.3 kg (155 lb) 03/24/2022 70.3 kg (155 lb) ECOG PERFORMANCE STATUS: 0- Fully active, able to carry on all pre-disease performance w/o restriction. Modified Medical Research [place] Dyspnea Scale (MMRC) I only get breathless with strenous exercise 0 PAST MEDICAL HISTORY Diagnosis Date Abdominal pain, right lower quadrant Benign neoplasm of colon COPD (chronic obstructive pulmonary disease) ([facility]) Dr. Love Dysuria Generalized anxiety disorder GERD (gastroesophageal reflux disease) History of tobacco use HTN (hypertension) Hyperlipemia Hypothyroidism Impaired fasting blood sugar Left leg pain Leiomyoma of uterus, unspecified very mild changes seen on sono Seasonal allergies Skin graft hematoma Left leg, managed by plastic surgery Stroke ([facility]) x 4 Suprapubic pain Vitamin D deficiency PAST SURGICAL HISTORY Procedure Laterality Date BREAST BIOPSY 05/29/1997 (L) breast biopsy- Dr. Logan COLONOSCOPY 2021 Dr. Barakat-1 polyp removed COLONOSCOPY FLX DX W/COLLJ SPEC WHEN PFRMD 10/17/2012 Colonoscopy ESOPHAGOGASTRODUODENOSCOPY TRANSORAL DIAGNOSTIC 10/17/2012 EGD LIG/TRNSXJ FLP TUBE ABDL/VAG APPR UNI/BI 05/29/1982 PAST SURGICAL HISTORY OF left shoulder manipulation PAST SURGICAL HISTORY OF Left skin graft of left upper leg REMV CATARACT EXTRACAP,INSERT LENS Bilateral 2013, 2014 SURGICAL ARTHROSCOPY ADAN W/CORACOACRM LIGM RLS 09/10/2013 Left shoulder arthroscopic Sub AC decompression FAMILY HISTORY Problem Relation Age of Onset other (ulcers in colon [Other]) Mother Thyroid Mother Dementia Mother other (TIA [Other]) Father other (Heart problems [Other]) Father Stroke Father Heart Attack Father Alzheimer's Disease Father Parkinson s Disease Father No Known Problems Sister No Known Problems Sister No Known Problems Sister No Known Problems Sister No Known Problems Brother Diabetes Maternal Grandmother other (hypoglycemia [Other]) Other Maternal Side other (Ovarian Cyst [Other]) Other Maternal Side, sisters Coronary Artery Disease No Family History Hypertension No Family History Blood Clots No Family History DVT No Family History Factor 5 Leiden No Family History Blood Disease No Family History Systemic Lupus Erythematosus No Family History Multiple Sclerosis No Family History Bipolar disorder No Family History Schizophrenia No Family History Aneurysm No Family History COPD No Family History clopidogrel (PLAVIX) 75 mg tablet Take 1 tablet by mouth once daily. cholecalciferol (VITAMIN D3) 5,000 unit tab Take 1 tablet by mouth once daily. losartan (COZAAR) 25 mg tablet Take 1 tablet by mouth once daily. albuterol HFA (PROVENTIL HFA, VENTOLIN HFA) 90 mcg/actuation inhaler inhale 2 puffs by mouth every 6 hours as needed for shortness of breath BREZTRI AEROSPHERE 160-9-4.8 mcg/actuation HFA aerosol inhaler Inhale 2 Puffs as instructed twice daily. levocetirizine 5 mg tablet Take 5 mg by mouth once daily. citalopram hydrobromide (CELEXA) 10 mg tablet Take 10 mg by mouth once daily. levothyroxine (SYNTHROID) 50 mcg tablet Take 50 mcg by mouth once daily. atorvastatin (LIPITOR) 20 mg tablet Take 1 tablet by mouth daily at bedtime. For cholesterol. ALLERGIES Allergen Reactions Fish Swelling, Shortness of Breath Morphine Mental Status Change, Other: See Comments Vicodin [Hydrocodon* Vomiting Aggrenox [Aspirin-D* Other: See Comments Headache Hydrocodone Bitartr* Other: See Comments The medications and allergies were reviewed and reconciled for this patient and deemed current. Lung Cancer Risk Factors: 1.Tobacco Use: Start Age 23, Quit Age: 65, Average packs per day 1.5, Pack Years 65 2. Passive Smoke Exposure: Yes, as a Child and as an Adult 3. Personal hx of malignancy: No, Type of Cancer: 4. Significant exposures (1 year or more of exposure): None, 5. Race: White 6. Education: High School Graduate 7. BMI:Body mass index is 24.66 kg/m . Patient-entered Height: 5'4 Patient-entered Weight: 148 pounds 8. COPD: Yes 9. Pneumonia in the past 5 years: No 10. Is there a history of lung cancer in a first degree relative? No 11. Is there a history of lung cancer in a non-first degree relative? No 12. Is there a history of any other cancer in a first degree relative? No Health Maintenance Immunization History Administered Date(s) Administered COVID-19 original vaccine, full dose, monovalent (MODERNA) 09/23/2020 10/29/2020 TD Adult 03/03/2013 influenza (IIV3) vaccine, age 3+ yr, trivalent (AFLURIA, FLULAVAL, FLUVIRIN, FLUZONE) 03/27/2014 influenza (IIV3) vaccine, trivalent, PF (AFLURIA, FLUARIX, FLULAVAL, FLUVIRIN, FLUZONE) 01/30/2017 03/12/2018 influenza (IIV4) vaccine, age 6 mo - 64 yr, quadrivalent (AFLURIA, FLULAVAL, FLUZONE) 03/03/2015 influenza (IIV4) vaccine, age 6 mo - 64 yr, quadrivalent, PF (AFLURIA, FLUARIX, FLULAVAL, FLUZONE) 02/16/2019 02/14/2020 influenza vaccine, unspecified formulation 02/24/2012 03/02/2013 pneumococcal (PCV13) vaccine, 13 valent (PREVNAR 13) 10/08/2014 pneumococcal (PPV23) vaccine, 23 valent (PNEUMOVAX 23) 07/27/2013 05/08/2018 pneumococcal vaccine, unspecified formulation 07/27/2013 tetanus diphtheria (Td) vaccine, adult, non-adsorbed 03/03/2013 zoster (RZV) vaccine, recombinant (SHINGRIX) 03/31/2020 Colonoscopy: 10/17/2012 Mammogram: 11/24/2014 DATA REVIEW I have directly visualized the testing documented: 10/31/2022 CT Chest and 11/16/2022 CT Chest at [facility]. Prior Imaging: Last XR Chest - Impression Only XR CHEST 2V FRONTAL/LAT Exam End: 02/15/2019 11:56 PM (Final result) Impression: IMPRESSION: No acute radiographic abnormality. Grade Setter: GASPER ... Pulmonary Function Testing: No textual results found for the specified procedure(s). PHYSICAL EXAM: BP 153/73 (BP Site: Right Arm, BP Position: Sitting, BP Cuff Size: Regular Adult) Pulse 73 Wt 67.1 kg (148 lb) SpO2 93% BMI 24.66 kg/m Deferred ASSESSMENT and RECOMMENDATIONS: 1. Screening for lung cancer: Six year risk for lung cancer: 5.51% I have determined that the patient is eligible for a low dose CT based on age, absence of signs or symptoms of lung cancer, and total pack years: Yes. However, she has a lung nodule The patient and I engaged in shared decision making, including the use of one or more decision aids, to include benefits, harms, follow-up diagnostic testing, over-diagnosis, false positive rate, andtotal radiation exposure. The patient understands and feels comfortable with it: Yes. The patient was counseled on the importance of adherence to annual LDCT lung cancer screening, impact of comorbidities and ability or willingness to undergo diagnosis and treatment. The patient understands and feels comfortable with it:Yes. 2. Former Nicotine dependence: The patient was counseled on the importance of maintaining cigarettesmoking abstinence - The patient is committed to remaining abstinent from tobacco. 3. Pulmonary nodule: Pt had incidental 14 x 6 mm RUL lung nodule on 10/2022 scans from [facility]. It is documented as new per their report. No prior CT scans available for imaging review. Will request additional CT scan images. Plan: [address] for 14 x 6 mm RUL nodule. Nova Falk APRN.CNP NPI #: February 07, 2023 1:08 PM Medical Decision Making: Problems: Moderate: New problem with uncertain prognosis Data: Unique source(s) for external note(s) reviewed: 1 Unique test result(s) reviewed: 2 Unique test(s) ordered: 1 Independent interpretation of test from other physician/QHCP Medical Decision Making Level: 4 - Moderate documented in this encounterGerman Hospital09-06-2023 Miscellaneous Notes* Telephone Encounter - Enriqueta Grubbs MA - 02/01/2023 10:59 AM EDT Patient notified and verbalized understanding. Planning helathy meals booklet mailed. Enriqueta Grubbs MA * Telephone Encounter - Tatiana Ronquillo MD - 02/01/2023 10:52 AM EDT A1c in borderline prediabetic range at 5.7. recommend low carb diet and exercise as tolerated. Can mail booklet on meal planning for DM if requested. Recheck in 6 months. Also noted signs of acute kidney injury. Recommend avoidance of NSAIDs, low sodium diet <2,000 mg daily, and pushing PO fluids. May continue Plavix. Recheck in 1 month. Other labs normal. documented in this encounterGerman Hospital09-05-2023 Miscellaneous Notes* Telephone Encounter - Paulo Vazquez LPN - 01/31/2023 10:58 AM EDT Pt notified. She verbalized understanding. Paulo Vazquez LPN * Telephone Encounter - Tatiana Ronquillo MD - 01/31/2023 10:30 AM EDT Ok, I would have her restart the Plavix for history of stroke/TIA and call when she needs refill. Med list updated. * Telephone Encounter - Marii Wilson LPN - 01/31/2023 10:29 AM EDT Pt notified of provider's message. Pt reports she still has Plavix so does not need a rx at this time. Marii Wilson LPN * Telephone Encounter - Tatiana Ronquillo MD - 01/31/2023 10:25 AM EDT Side effect list updated. Discontinue Aggrenox. Would she like a refill of her Plavix so she can restart this medication? * Telephone Encounter - Gerda Ziegler LPN - 01/31/2023 10:21 AM EDT Pt calling in and was put on medication Aggrenox. Pt reports she can not take this it gave her a migraine headache x 2 days. Pt usually does not have migraines. Please review and and advise pt. Gerda Ziegler LPN documented in this encounterGerman Hospital08-11-2023 History of Present illness Narrative* Sharron Chand RT(R) - 01/06/2023 2:00 PM EDT Radiology Service Progress Note PATIENT NAME: Temitope Haddad DATE OF SERVICE: January 06, 2023 TIME: 1:38 PM PATIENT IDENTITY VERIFICATION COMPLETED USING TWO (2) IDENTIFIERS: Name and Date of confirmedby patient verbally. FALL SCREENING: Has the patient had 2 falls in the last year or 1 fall with injury or currently using an Ambulatory Assistive Device (Walker, Cane, Wheelchair, Crutches, etc.)? No PATIENT GENDER DATA: Female. status: : No status: NO. PATIENT RELEVANT IMPLANT DATA REVIEWED: Yes RADIOLOGY DEPARTMENT: Ultrasound PERIPHERAL IV DATA: Not applicable SIGNED BY: Sharron Chand RDMS, RVT January 06, 2023 1:38 PM documented in this encounterGerman Hospital08-04-2023 History of Present illness Narrative* Lili Bob PA-C - 12/30/2022 11:54 AM EDT Plastic Surgery Follow Up Note Subjective: Temitope Castellon is here for follow up of: left thigh scar release with fat grafting 03/31/22. She states pain in the left thigh, same area of prior surgery, began a few months ago. Feels like needles coming out of her leg This happens a few times a week and can last a few hours. She doesn'ttake anything for the pain. The pain radiates down the leg to the knee. Worse with activity and standing. + tender to the touch She feels like the indentation is getting deeper. No change in the coloration of the region. No injury or precipitating factor. She took Neurontin in the past for back pain and I discussed trying that for the pain. (M79.652) Left thigh pain (primary encounter diagnosis) Meds and allergies reviewed in EPIC. ROS: Pain few times a week, feels like needles coming out of her leg GENERAL: No weight loss, malaise or fevers RESPIRATORY: Negative for cough, hemoptysis, wheezing, COPD, dyspnea or shortness of breath CARDIOVASCULAR: Negative for chest pain, leg swelling, hypertension, CHF or palpitations Objective: PE: General : NAD Ext: left lateral thigh 3 cm x 3 cm depressed area with darkened coloration, tender to the touch. Assessment: Left lateral thigh lesion Plan: - US left thigh - Discussed other options, biopsy, repeat surgery, further imaging - Will FU after US During this patient visit I have spent approximately 20 minutes out of 30 in counseling regarding treatment options and coordinating care. Lili Bob PA-C documented in this encounterGerman Hospital07-28-2023 Miscellaneous Notes* Telephone Encounter - Jina Kim LPN - 12/23/2022 2:35 PM EDT Patient calling to ask when is her pain management appt scheduled for. Went over appt information and location with her. * Telephone Encounter - Charline George OCCA - 12/23/2022 11:10 AM EDT Please contact patient and assist in scheduling below consult. Thank you. WESLY Ann * Telephone Encounter - Shavonne Donato APRN.CNP - 12/23/2022 11:09 AM EDT Order for pain management completed. Patient may schedule at her convenience. Shavonne Donato APRN.CNP * Telephone Encounter - Rosaura Tristan Ma - 12/23/2022 11:00 AM EDT Call to pt and notified her of results and recommendations. Pt wanting to stay within the Clinic. Notified pt that I would have Provider place Pain Mgmt referral and have a [employer] contact her to make appt. Please file pended order. Rosaura Tristan Ma * Telephone Encounter - Rosaura Tristan Ma - 12/23/2022 10:57 AM EDT ----- Message from Shavonne Donato APRN.WILVER sent at 12/23/2022 6:36 AM EDT ----- Normal xray of coccyx. Recommend referral to pain management since this has been going on for so long. Shavonne Donato APRN.ENVIRONMENTAL PROJECTS ADVISOR documented in this encounterGerman Hospital07-24-2023 History of Present illness Narrative* Magaly Benitez RT(R) - 12/19/2022 3:00 PM EDT Radiology Service Progress Note PATIENT NAME: Temitope Castellon DATE OF SERVICE: December 19, 2022 TIME: 2:45 PM PATIENT IDENTITY VERIFICATION COMPLETED USING TWO (2) IDENTIFIERS: Name and Date of confirmedby patient verbally. FALL SCREENING: Has the patient had 2 falls in the last year or 1 fall with injury or currently using an Ambulatory Assistive Device (Walker, Cane, Wheelchair, Crutches, etc.)? No PATIENT GENDER DATA: Female. status: : No status: NO. PATIENT RELEVANT IMPLANT DATA REVIEWED: Yes RADIOLOGY DEPARTMENT: General X-ray: Exam(s) Completed: Spine X-Ray(s): Sacrum/Coccyx PERIPHERAL IV DATA: Not applicable SIGNED BY: RT Charisse(R) December 19, 2022 2:45 PM documented in this encounterGerman Hospital07-06-2023 Discharge summary Author Naif Jackson [facility] December 01, 2022 4:16pm Note Date/Time December 01, 2022 4:04p m [facility] Medical Records Department [address] [place] [address] Emergency Department Summary 12/01/22 MR#: [id number] Acct: [id number] Name: TEMITOPE CASTELLON Rep #:[id number] : 1955 67 From: Naif Jackson MD PCP: Dr. Bird Ronquillo MD Status :REG ER Location: ED HPI History of Present Illness Chief Complaint: Other, Pain/Inj Narrative Narrative: 67-year-old female presents with back pain that she has had for the last month. She relays a remote history of a fall years ago. Last month she began having problems with her low back. She states she was seen in the emergency departmentand was given analgesics. Over the last few days, she has had increased pain that radiates to her right buttocks and that she cannot sit for extended periodsof time secondary to pain. She denies any fevers or chills. No loss of bowel or bladder, no other symptoms. She has been taking Tylenol without relief. Shestates that at that time she was seen she was referred to someone for her back, but has been unable to follow-up with them. She denies any new symptoms, no redflag symptoms for cauda equina. No saddle anesthesia. [facility] Medical History Abdominal pain Abnormal Holter monitor finding Acute dysfunction of both eustachian tubes Acute seasonal allergic rhinitis Acute serous otitis media Ambulates with cane Anxiety Anxiety disorder Arthritis Atherosclerotic heart disease of [place] coronary artery without angina pectoris Bronchitis Bruising CAD (coronary artery disease) Chest pain Constipation COPD (chronic obstructive pulmonary disease) Depression Diaphragm paralysis Difficulty chewing Difficulty swallowing Easy bruising Essential hypertension Former smoker Fuchs' corneal dystrophy Gastric reflux High cholesterol History of cerebrovascular disease History of CVA (cerebrovascular accident) History of echocardiogram History of heart attack History of hiatal hernia History of IBS History of irregular heartbeat History of renal disease History of stress test HTN (hypertension) Hypothyroidism Hypoxia Internal impingement of right shoulder Mixed hyperlipidemia Restless legs Shortness of breath on exertion Sinus pause Skin tear Stroke/cerebrovascular accident Thigh pain Thyroid disease Traumatic avulsion of nail plate of toe Wears dentures Wears glasses Home Medications cholecalciferol (vitamin D3) 125 mcg (5,000 unit) capsule 5,000 unit PO DAILY SUPPLEMENT 08/14/18 [History Last Taken 06/07/22] levocetirizine 5 mg tablet (Allergy Relief (levocetirizine)) 5 mg PO DAILY ALLERGIES 10/31/19 [History Last Taken 07/13/22] citalopram 10 mg tablet 10 mg PO DAILY DEPRESSION 08/17/21 [History Last Taken 06/07/22] levothyroxine 50 mcg tablet 50 mcg PO DAILY THYROID 08/17/21 [History Last Taken 06/07/22] clopidogrel 75 mg tablet 75 mg PO DAILY BLOOD THINNER 30 days #30 tabs 06/08/22 [Rx Last Taken 07/13/22] albuterol sulfate 90 mcg/actuation aerosol inhaler 2 puff inhalation Q6H PRN Shortness Of Breath 07/01/22 [History Last Taken Unknown] atorvastatin 40 mg tablet 40 mg PO DAILY 07/01/22 [History Last Taken Unknown] budesonide 160 mcg-glycopyr 9 mcg-formot 4.8 mcg/actuation HFA inhaler (Breztri Aerosphere) 2 inh inhalation BID #10.7 grams 09/13/22 [Rx Last Taken Unknown] losartan 25 mg tablet 25 mg PO DAILY #90 tabs 09/29/22 [Rx Last Taken Unknown] dicyclomine 10 mg capsule 20 mg (2 x 10 mg) PO Q6H PRN PRN abdominal discomfort #30 CAPSULES 10/21/22 [Rx Last Taken Unknown] ondansetron 4 mg disintegrating tablet 8 mg (2 x 4 mg) PO Q8H PRN PRN Nausea #15tabs 10/21/22 [Rx Last Taken Unknown] oxycodone-acetaminophen 5 mg-325 mg tablet 1 tab PO Q6H PRN PRN pain 5 days #20 TABLETS 11/16/22 [Rx Last Taken Unknown] cyclobenzaprine 10 mg tablet 10 mg PO TID PRN Muscle Spasm #20 TABLETS 12/01/22 [Rx Last Taken Unknown] Allergy/AdvReac Type Severity Reaction Status Date / Time hydrocodone bitartrate Allergy HALLUCINATE Verified 12/01/22 15:36 [From Vicodin] S piperacillin [From Zosyn] Allergy Hives Verified 12/01/22 15:36 tazobactam [From Zosyn] Allergy Hives Verified 12/01/22 15:36 vancomycin Allergy Rash Verified 12/01/22 15:36 fish derived AdvReac Anaphylaxis Verified 12/01/22 15:36 morphine AdvReac HALLUCINATE Verified 12/01/22 15:36 S Family History Mother Diabetes Heart disease Hypertension High cholesterol Father Heart disease Hypertension High cholesterol CVA (cerebral vascular accident) Surgical History History of bilateral cataract extraction History of right breast biopsy History of shoulder surgery History of surgery on lower extremity History of tubal ligation Social History household members: significant other housing: apartment pets and animals: Yes pets and animals: dog(s) Smoking Status: Former smoker quit date: 10/28/19 pack-years: 25 Tobacco: How many years used: 25 second hand exposure: Yes alcohol intake: never substance use type: does not use caffeine: Yes Type: coffee Number of servings: 1 ROS ROS ED ROS Narrative Constitutional: No fever, no chills. HEENT: No sore throat. No neck pain. No loss of vision. No rhinorrhea. Cardiovascular: No chest pain. No palpitations. No pedal edema. Respiratory: No cough, no shortness of breath. Abdominal: No abdominal pain. No nausea. No vomiting. Genitourinary: No dysuria. No hematuria. Musculoskeletal: No myalgias. No arthralgias. Positive low back pain and buttocks pain. Neurologic: No headaches. No dizziness. No lightheadedness. Skin: No rash. No change in color. Psychiatric: No depression. No anxiety. EXAM Physical Exam Narrative Exam Narrative: Afebrile. Vital signs noted. HEENT: Normocephalic. Atraumatic. PERRL, EOMI. Neck soft and supple. No pointtenderness or step off. Cardiovascular: Regular rate and rhythm. No murmurs, rubs, or gallops appreciated. Respiratory: No tachypnea. Lungs clear to auscultation bilaterally. Gastrointestinal: Abdomen soft, nontender, with normoactive bowel sounds. No rebound or guarding. Neurological: Awake. Alert. Nonfocal, nonlateralizing. Skin: No rash. Normal color. No pallor. Musculoskeletal: No pedal edema. Full range of motion extremities. Tenderness to palpation in sciatic notch, right. Neurovascularly intact bilateral lower extremities. Const Vital Signs: 12/01/22 15:36 12/01/22 15:45 Temperature 97.6 F L Temperature Source Temporal Pulse Rate 92 Respiratory Rate 14 Respiratory Effort Normal Non-Labored Blood Pressure 154/92 H Blood Pressure Mean 112 Pulse Ox 99 Oxygen Delivery Method Room Air MDM MDM MDM Narrative Medical decision making narrative: I reviewed the patient's prior records. She had a complete work-up and she was having more upper back pain and had a CT of the abdomen and pelvis. It was thought that she was having radicular signs. She had received 1 Percocet and a prescription for Percocet although she lists other narcotics is allergies. I donot feel laboratory testing is indicated. Based on her clinical examination today, I do think that she has more of a piriformis syndrome as she has tenderness in the right sciatic notch. She is neurovascular intact to her bilateral lower extremities. I do not feel x- rays are indicated. She was told that narcotic pain medication should come from her primary care provider. She will take [id number]-kathemr analgesics and will try [id number] nonsteroidalanti-inflammatories, but based on her previous visit, she had already received steroids from urgent care which she had stated did not help her. She is not having low back pain currently. Additionally, I will write her for Flexeril to try as a muscle relaxer. She will follow-up with her primary care provider. Return instructions to the emergency department were reviewed. I do not feel she requires observation. She was seen ambulating to the room without difficulty. Disposition is discharged home in stable condition. Patient and her are agreeable to the plan. Discharge Plan Triage Chief Complaint: Other, Pain/Inj ED Provider: Naif Jackson Dx/Rx/DC Orders Clinical Impression: Sciatica without back pain, Piriformis syndrome of right side Instructions: ED Sciatica Prescriptions: New cyclobenzaprine 10 mg tablet 10 mg PO TID PRN (Reason: Muscle Spasm) Qty: 20 0RF No Action cholecalciferol (vitamin D3) 5,000 unit capsule 5,000 unit PO DAILY levocetirizine [Allergy Relief (levocetirizin)] 5 mg tablet 5 mg PO DAILY citalopram 10 mg tablet 10 mg PO DAILY levothyroxine 50 mcg tablet 50 mcg PO DAILY Priyanki Aerosphere 160-9-4.8 mcg/actuation HFA aerosol inhaler 2 inh inhalation BID Qty: 10.7 3RF atorvastatin 40 mg tablet 40 mg PO DAILY albuterol sulfate 90 mcg/actuation HFA aerosol inhaler 2 puff inhalation Q6H PRN (Reason: Shortness Of Breath) losartan 25 mg tablet 25 mg PO DAILY Qty: 90 3RF clopidogrel 75 MG tablet 75 mg PO DAILY 30 Days Qty: 30 0RF dicyclomine 10 mg capsule 20 mg PO Q6H PRN PRN (Reason: abdominal discomfort) Qty: 30 0RF ondansetron [ondansetron] 4 mg tablet,disintegrating 8 mg PO Q8H PRN PRN (Reason: Nausea) Qty: 15 0RF oxycodone-acetaminophen [oxycodone-acetaminophen] 5-325 mg tablet 1 tab PO Q6H PRN PRN (Reason: pain) 5 Days Qty: 20 0RF Primary Care Provider: Bird Ronquillo Referrals: Bird Ronquillo MD [Primary Care Provider] - As soon as possible Disposition Disposition: Home, Self Care What to do if you have Problems For any increased pain, shortness of breath, bleeding, nausea or vomiting, chestpain, or any unexpected problems, contact your Primary Care Provider. Call [facility] ([phone]) or report to the closest Emergency Room. Call 911 if necessary. 12/01/22 1616 <Electronically signed by Naif Jackson MD> Cosigner Signature (if applicable): CC: Dr. Bird Ronquillo MD ~ Signed [facility] Work Phone: [phone]) 127-700506-19-2023 History of Present illness Narrative* Thelma Jaimes APRN.ENVIRONMENTAL PROJECTS ADVISOR - 11/14/2022 1:21 PM EDT Plastic Surgery Postop Note Subjective: Temitope Castellon is a 66 year old female who presents Left thigh percutaneous scar releaseand fat grafting (Left: Leg Upper) GRAFTING OF AUTOLOGOUS FAT BY LIPO 50 CC OR LESS TRUNK, BREAST, SCALP, ARMS AND/OR LEGS (Abdomen) GRAFTING OF AUTOLOGOUS FAT BY LIPO EA ADDL 50 CC 03/31/22 Pt reports pain improved since fat grafting/scar release but now presents with shooting needles type pain that has been intermittently happening over last few months. Pain is exacerbated with movement, last only a minute at most and is alleviating when pt lays down. Physical Exam There were no vitals taken for this visit. General Appearance: Well appearing, alert, in no acute distress, well-hydrated, well nourished.. Skin: Skin color, texture, turgor normal, no suspicious rashes or lesions. Neurologic: Gait normal. Reflexes normal and symmetric. Sensation grossly intact.. INCISION: Healed; depression of soft tissue remains same as post-op visits back in April; no palpable masses/lesions noted. No external visible concerns. ASSESSMENT/PLAN: 1. Post-operative state - ICD9: V45.89, ICD10: Z98.890 (primary diagnosis) -deep massage and warm compresses - CONSULT TO PHYSICAL THERAPY (AG) 2. Painful scar - ICD9: 709.2, ICD10: R52, L90.5 -can try gabapentin for nerve pain -return in 1 month for surgeon if still having issues Thelma Jaimes APRN.WILVER documented in this encounter[facility] History of Present illness Narrative* KAMINI Lizama - 11/07/2022 4:27 PM EDT This note was created using NoteWriter. Subjective Temitope Castellon is a 67 year old female. HPI 67-year-old female presents for right-sided low back pain radiating to her right leg. She states it started about 3 days ago. Denies any fall or injury. She has never had this pain in the past. She states pain is worse with movement, sneezing. She denies any urinary symptoms. No blood in the urine. No history of kidney stones. No fevers. No bowel/bladder incontinence. PAST MEDICAL HISTORY Diagnosis Date Abdominal pain, right lower quadrant Benign neoplasm of colon COPD (chronic obstructive pulmonary disease) (HCC) Dysuria HTN (hypertension) Hyperlipemia Hypothyroidism Left leg pain Leiomyoma of uterus, unspecified very mild changes seen on sono Reflux Seasonal allergies Stroke (HCC) x 4 Suprapubic pain PAST SURGICAL HISTORY Procedure Laterality Date BREAST BIOPSY 05/29/1997 (L) breast biopsy- Dr. Logan COLONOSCOPY FLX DX W/COLLJ SPEC WHEN PFRMD 10/17/2012 Colonoscopy ESOPHAGOGASTRODUODENOSCOPY TRANSORAL DIAGNOSTIC 10/17/2012 EGD LIG/TRNSXJ FLP TUBE ABDL/VAG APPR UNI/BI 05/29/1982 PAST SURGICAL HISTORY OF left shoulder manipulation REMV CATARACT EXTRACAP,INSERT LENS Bilateral 2013, 2014 SURGICAL ARTHROSCOPY ADAN W/CORACOACRM LIGM RLS 09/10/2013 Left shoulder arthroscopic Sub AC decompression ALLERGIES Fish, Morphine, Vicodin [Hydrocodone-Acetaminophen], and Hydrocodone Bitartrate MEDICATIONS losartan (COZAAR) 25 mg tablet Take 25 mg by mouth once daily. BREZTRI AEROSPHERE 160-9-4.8 mcg/actuation HFA aerosol inhaler Inhale 2 Puffs as instructed twice daily. dicyclomine (BENTYL) 10 mg capsule TAKE 2 CAPSULES EVERY 6 HOURS NEEDED FOR ABDOMINAL DISCOMFORT ALBUTEROL INHALATION Inhale as instructed. levocetirizine 5 mg tablet Take 5 mg by mouth once daily. cholecalciferol (VITAMIN D3) 5,000 unit tab Take 5,000 Units by mouth once daily. citalopram hydrobromide (CELEXA) 10 mg tablet Take 10 mg by mouth once daily. levothyroxine (SYNTHROID) 50 mcg tablet Take 50 mcg by mouth once daily. atorvastatin (LIPITOR) 20 mg tablet Take 1 tablet by mouth daily at bedtime. For cholesterol. clopidogrel (PLAVIX) 75 mg tablet Take 1 tablet by mouth once daily. methylPREDNISolone (MEDROL, ROXANA,) 4 mg Dose-Pack Follow dosing instructions, take with food. STIOLTO RESPIMAT 2.5-2.5 mcg/actuation INHALE 2 PUFFS BY MOUTH DAILY lisinopril (ZESTRIL, PRINIVIL) 10 mg tablet Take 10 mg by mouth once daily. FAMILY HISTORY Problem Relation Age of Onset other (ulcers in colon [Other]) Mother Thyroid Mother Dementia Mother other (TIA [Other]) Father other (Heart problems [Other]) Father Stroke Father Heart Attack Father Alzheimer's Disease Father Parkinson s Disease Father Diabetes Maternal Grandmother other (hypoglycemia [Other]) Other Maternal Side other (Ovarian Cyst [Other]) Other Maternal Side, sisters Coronary Artery Disease No Family History Hypertension No Family History Blood Clots No Family History DVT No Family History Factor 5 Leiden No Family History Blood Disease No Family History Systemic Lupus Erythematosus No Family History Multiple Sclerosis No Family History Bipolar disorder No Family History Schizophrenia No Family History Aneurysm No Family History COPD No Family History Social History Tobacco Use Smoking status: Former Packs/day: 1.00 Years: 40.00 Pack years: 40.00 Types: Cigarettes Quit date: 07/27/2020 Years since quittin.2 Smokeless tobacco: Never Tobacco comments: d/c 07/27/2020 Vaping Use Vaping Use: Never used Substance Use Topics Alcohol use: No Drug use: No Review of Systems Constitutional: Negative for chills and fever. HENT: Negative for congestion, ear pain and sore throat. Respiratory: Negative for cough and shortness of breath. Cardiovascular: Negative for chest pain. Gastrointestinal: Negative for diarrhea and vomiting. Genitourinary: Negative for dysuria, frequency and hematuria. Musculoskeletal: Positive for back pain. Objective BP 130/90 Pulse 86 Temp 36.4 C (97.6 F) Resp 18 Wt 69.5 kg (153 lb 3.2 oz) SpO2 94% BMI24.73 kg/m Physical Exam Vitals and nursing note reviewed. Constitutional: General: She is not in acute distress. Appearance: Normal appearance. She is not toxic-appearing. HENT: Nose: Nose normal. Mouth/Throat: Mouth: Mucous membranes are moist. Eyes: Conjunctiva/sclera: Conjunctivae normal. Cardiovascular: Rate and Rhythm: Normal rate and regular rhythm. Pulmonary: Effort: Pulmonary effort is normal. Breath sounds: Normal breath sounds. Abdominal: General: Abdomen is flat. Palpations: Abdomen is soft. Tenderness: There is no right CVA tenderness or left CVA tenderness. Musculoskeletal: Lumbar back: Tenderness present. No bony tenderness. Decreased range of motion. Positive right straight leg raise test. Negative left straight leg raise test. Comments: Decreased ROM lumbar spine due to pain. Right-sided lumbar paraspinal muscle tenderness. No midline tenderness. Positive seated straight leg raise on the right. Normal sensation lower extremities. Able to ambulate. Skin: General: Skin is warm and dry. Neurological: Mental Status: She is alert. Assessment and Plan ASSESSMENT/PLAN: 1. Acute right-sided low back pain with right-sided sciatica - ICD9: 724.2, 724.3, ICD10: M54.41 -Suspect musculoskeletal pain with sciatica. - Ice for localized tenderness - Medrol dose pack - UA positve for trace adriana esterase. No urinary symptoms. We will send urine for culture. No treatment at this time. Await culture. Suspect musculoskeletal pain. - UA DIP, URINE (POC) - URINE CULTURE Diagnosis and treatment plan were discussed and questions were answered to the patient's satisfaction. Pt acknowledged understanding of concepts and follow up plan. Specific signs and symptoms that would indicate the need for higher level of care were discussed in detail warranting prompt ER evaluation. KAMINI Lizama documented in this encounterGerman Hospital06-08-2023 Discharge summary Author [facility] November 03, 2022 3:16am Note Date/Time November 03, 2022 12:53 am [facility] Medical Records Department [address] [place] [address] Emergency Department Summary 11/03/22 MR#: [id number] Acct: [id number] Name: TEMITOPE CASTELLON Rep #:[id number] : 1955 67 From: Kunal Bray DO PCP: Dr. Bird Ronquillo MD Status :REG ER Location: ED HPI History of Present Illness Chief Complaint: Chest Pain Informant: patient and EMS Narrative Narrative: Patient is a 67-year-old female with past medical history of coronary artery disease as well as CVA COPD without need for chronic oxygen. She states that roughly 4 hours prior to arrival she developed some lower chest/midsternal discomfort which wrapped around towards her back and up towards her left-sided neck. She states that there was no trauma or excessive activity and she denies any fevers chills or excessive coughing. She states she called EMS as the pain had been persistent for multiple hours and despite receiving aspirin and nitro per EMS she did not have improvement of her symptoms. [facility] Medical History Abdominal pain Abnormal Holter monitor finding Acute dysfunction of both eustachian tubes Acute seasonal allergic rhinitis Acute serous otitis media Ambulates with cane Anxiety Anxiety disorder Arthritis Atherosclerotic heart disease of [place] coronary artery without angina pectoris Bronchitis Bruising CAD (coronary artery disease) Chest pain Constipation COPD (chronic obstructive pulmonary disease) Depression Diaphragm paralysis Difficulty chewing Difficulty swallowing Easy bruising Essential hypertension Former smoker Fuchs' corneal dystrophy Gastric reflux High cholesterol History of cerebrovascular disease History of CVA (cerebrovascular accident) History of echocardiogram History of heart attack History of hiatal hernia History of IBS History of irregular heartbeat History of renal disease History of stress test HTN (hypertension) Hypothyroidism Hypoxia Internal impingement of right shoulder Mixed hyperlipidemia Restless legs Shortness of breath on exertion Sinus pause Skin tear Stroke/cerebrovascular accident Thigh pain Thyroid disease Traumatic avulsion of nail plate of toe Wears dentures Wears glasses Home Medications cholecalciferol (vitamin D3) 125 mcg (5,000 unit) capsule 5,000 unit PO DAILY SUPPLEMENT 08/14/18 [History Last Taken 06/07/22] levocetirizine 5 mg tablet (Allergy Relief (levocetirizine)) 5 mg PO DAILY ALLERGIES 10/31/19 [History Last Taken 07/13/22] citalopram 10 mg tablet 10 mg PO DAILY DEPRESSION 08/17/21 [History Last Taken 06/07/22] levothyroxine 50 mcg tablet 50 mcg PO DAILY THYROID 08/17/21 [History Last Taken 06/07/22] clopidogrel 75 mg tablet 75 mg PO DAILY BLOOD THINNER 30 days #30 tabs 06/08/22 [Rx Last Taken 07/13/22] albuterol sulfate 90 mcg/actuation aerosol inhaler 2 puff inhalation Q6H PRN Shortness Of Breath 07/01/22 [History Last Taken Unknown] atorvastatin 40 mg tablet 40 mg PO DAILY 07/01/22 [History Last Taken Unknown] budesonide 160 mcg-glycopyr 9 mcg-formot 4.8 mcg/actuation HFA inhaler (Breztri Aerosphere) 2 inh inhalation BID #10.7 grams 09/13/22 [Rx Last Taken Unknown] losartan 25 mg tablet 25 mg PO DAILY #90 tabs 09/29/22 [Rx Last Taken Unknown] dicyclomine 10 mg capsule 20 mg PO Q6H PRN PRN abdominal discomfort #30 [id number]/26/23 [Rx Last Taken Unknown] ondansetron 4 mg disintegrating tablet 8 mg PO Q8H PRN PRN Nausea #15 tabs 10/21/22 [Rx Last Taken Unknown] Allergy/AdvReac Type Severity Reaction Status Date / Time hydrocodone bitartrate Allergy HALLUCINATE Verified 11/02/22 23:49 [From Vicodin] S vancomycin Allergy Rash Verified 11/02/22 23:49 fish derived AdvReac Anaphylaxis Verified 11/02/22 23:49 morphine AdvReac HALLUCINATE Verified 11/02/22 23:49 S Family History Mother Diabetes Heart disease Hypertension High cholesterol Father Heart disease Hypertension High cholesterol CVA (cerebral vascular accident) Surgical History History of bilateral cataract extraction History of right breast biopsy History of shoulder surgery History of surgery on lower extremity History of tubal ligation Social History household members: significant other housing: apartment pets and animals: Yes pets and animals: dog(s) Smoking Status: Former smoker quit date: 10/28/19 pack-years: 25 Tobacco: How many years used: 25 second hand exposure: Yes alcohol intake: never substance use type: does not use caffeine: Yes Type: coffee Number of servings: 1 ROS ROS ED Constitutional Constitutional ED: Denies chills or fever(s) ENT ENT ED: Denies sore throat Cardiovascular Cardiovascular: Reports chest pain; Denies palpitations or racing heartbeat Respiratory/Chest Respiratory/Chest: Denies cough or dyspnea Gastrointestinal Gastrointestinal: Reports abdominal pain; Denies diarrhea, nausea or vomiting Genitourinary Genitourinary ED: Denies dysuria Musculoskeletal Musculoskeletal: Reports back pain; Denies myalgias Integumentary Denies rash Neurologic Neurologic: Denies headache(s) Hematologic/Lymphatic Hematologic/Lymphatic: Denies easy bleeding or easy bruising EXAM Physical Exam Const Vital Signs: 11/02/22 23:40 11/03/22 00:52 11/03/22 01:00 Temperature 96.6 F L Temperature Source Temporal Pulse Rate 73 71 75 Respiratory Rate 16 16 16 Blood Pressure 163/74 H 155/80 H 152/69 H Blood Pressure Mean 103 105 96 Pulse Ox 95 98 95 Oxygen Delivery Method Room Air 11/03/22 02:00 11/03/22 03:00 Temperature Temperature Source Pulse Rate 69 66 Respiratory Rate 16 20 H Blood Pressure 146/67 H 150/68 H Blood Pressure Mean 93 95 Pulse Ox 91 91 Oxygen Delivery Method Positive well nourished and well developed General Appearance ED: well developed HEENT Reports moist mucous membranes HEENT Narrative: No tongue or lip swelling no oral lesions no airway edema or compromise Eyes PERRL and EOMs intact bilaterally General Eye ED: Negative for scleral icterus Neck supple and no JVD Chest Wall palpation of chest normal Chest Narrative: No bony deformity or crepitance Resp Resp Narrative: Breath sounds are diminished throughout with faint diffuse expiratory wheeze consistent with history of COPD but otherwise no nasal flaring retractions tachypnea or accessory muscle use Cardio regular rate and regular rhythm Rate: other Other Details: Radial pulses are plus 2 out of 4 bilaterally are equal and symmetric GI non-distended and no masses GI Narrative: Pain with palpation in the right upper quadrant and midepigastric region but greatest in the right upper quadrant. No voluntary guarding or rigidity and negative Gutierrez sign. No pulsatile mass or fluid wave Auscultation: normoactive bowel sounds Palpation: soft Back/Spine no CVA tenderness Extremity normal to inspection Extremity Narrative: No asymmetric edema no pitting edema negative Homans' sign bilaterally Neuro oriented x3 and CN's II-XII intact bilaterally Sensorium / Orientation: alert Psych mental status grossly normal Skin no rashes or lesions noted General Skin Exam: Negative for jaundice MDM MDM MDM Narrative Medical decision making narrative: Patient arrived to the ER with stable vitals. She reported atypical chest pain that been constant for over 4 hours. On exam the seem to be more right upper quadrant and midepigastric pain then true chest discomfort. Differential diagnosis is acute coronary syndrome versus cardiac dysrhythmia versus pneumoniaversus pneumothorax versus pancreatitis versus pulmonary embolus versus gallbladder dysfunction/biliary colic. Secondary to his basic labs were obtained. Initial troponin was normal at 8 and labs otherwise did not show any clinically significant changes other than her elevated D-dimer at 1.43. With her report of lower chest pain that was worse inspiration this is possible for apulmonary embolus so a CTA of the chest was obtained and this was taken through the abdomen as she had right upper quadrant pain on exam. The images revealed no acute PE or dissection or pneumonia or pneumothorax or signs of acute cholecystitis. The 2-hour troponin did elevate to 24 which is under the 20 point cutoff for elevation but based on his increase of 16 points I did elect toperform a 3-hour troponin which is now downtrending at 20. On reevaluation the patient has had near complete improvement of her pain after 1 dose of Toradol. At this time as the troponin is staying flat her imaging studies show no acute infectious or obstructive pathology and she had improvement of pain she is otherwise safe for discharge History & Record Review Discussion w/independent historian: EMS personnel and Patient Lab Data Attestation: I reviewed the patient's lab results. Labs: Laboratory Results - last 24 hr 11/02/22 11/02/22 11/02/22 23:40 23:40 23:40 WBC 7.4 RBC 5.05 Hgb 15.3 H Hct 46.3 MCV 91.7 MCH 30.3 MCHC 33.0 RDW Std Deviation 44.9 H RDW Coeff of Keo 13.3 Plt Count 221 MPV 9.2 Immature Gran % (Auto) 0.300 Neut % (Auto) 78.1 H Lymph % (Auto) 16.6 L [place] % (Auto) 3.5 Eos % (Auto) 1.0 Baso % (Auto) 0.5 Absolute Neuts (auto) 5.7 Absolute Lymphs (auto) 1.22 Nucleated RBC % 0 D-Dimer Quant (PE/DVT) 1.43 H* Sodium 142 Potassium 3.4 L Chloride 108 H Carbon Dioxide 26.0 Anion Gap 8 BUN 17 Creatinine 1.22 H Estim Creat Clear Calc 44.71 Est GFR (MDRD) Af Amer 57 L Est GFR (MDRD) Non-Af 47 L BUN/Creatinine Ratio 13.9 Glucose 109 H Calcium 9.4 Magnesium 2.2 Total Bilirubin 0.50 Direct Bilirubin 0.20 AST 27 ALT 33 Alkaline Phosphatase 78 Troponin I High Sens 8 Total Protein 8.2 Albumin 4.2 Globulin 4.0 Lipase 21 11/03/22 11/03/22 01:43 02:43 WBC RBC Hgb Hct MCV MCH MCHC RDW Std Deviation RDW Coeff of Keo Plt Count MPV Immature Gran % (Auto) Neut % (Auto) Lymph % (Auto) [place] % (Auto) Eos % (Auto) Baso % (Auto) Absolute Neuts (auto) Absolute Lymphs (auto) Nucleated RBC % D-Dimer Quant (PE/DVT) Sodium Potassium Chloride Carbon Dioxide Anion Gap BUN Creatinine Estim Creat Clear Calc Est GFR (MDRD) Af Amer Est GFR (MDRD) Non-Af BUN/Creatinine Ratio Glucose Calcium Magnesium Total Bilirubin Direct Bilirubin AST ALT Alkaline Phosphatase Troponin I High Sens 24 20 Total Protein Albumin Globulin Lipase Radiography Diagnostic Testing: Clinical Impression(s) from Imaging Studies Chest X-Ray 11/03/22 00:04 IMPRESSION: COPD and atherosclerotic disease Electronically Signed: Joey Solorzano MD at 1:04 EDT , Abdomen/Pelvis CT 11/03/22 00:33 IMPRESSION: 1. Stable exam with no evidence of acute intra-abdominal abnormality or etiology for right upper quadrant symptoms demonstrated. 2. Colonic diverticulosis with no evidence of diverticulitis. 3. COPD, atherosclerotic disease and other nonurgent findings within body of report. Electronically Signed: Joey Solorzano MD at 1:46 EDT , Chest CTA 11/03/22 00:33 IMPRESSION: 1. Pulmonary emphysema with slightly more prominent and well-defined 11 mm nodular opacity within superior right upper lobe. Possible remnant scar but small developing pulmonary neoplasm also in the differential. Recommend further evaluation with PET/CT or tissue sampling, versus repeat CT examination in 3 months (per Fleischner Society guidelines). 2. No pulmonary embolus or other acute intrathoracic abnormality. 3. Other stable and nonurgent findings within body of report. Electronically Signed: Joey Solorzano MD at 1:58 EDT , 2 view chest x-ray as interpreted by the emergency medicine physician reveals hyperinflated lungs consistent with COPD but otherwise no pleural effusion pneumothorax or infiltrate Discharge Plan Triage Chief Complaint: Chest Pain ED Provider: Kunal Bray Dx/Rx/DC Orders Clinical Impression: Nonspecific chest pain, Essential hypertension, 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 Instructions: ED Chest Pain, Uncertain Cause Prescriptions: No Action cholecalciferol (vitamin D3) 5,000 unit capsule 5,000 unit PO DAILY levocetirizine [Allergy Relief (levocetirizin)] 5 mg tablet 5 mg PO DAILY citalopram 10 mg tablet 10 mg PO DAILY levothyroxine 50 mcg tablet 50 mcg PO DAILY Breztri Aerosphere 160-9-4.8 mcg/actuation HFA aerosol inhaler 2 inh inhalation BID Qty: 10.7 3RF atorvastatin 40 mg tablet 40 mg PO DAILY albuterol sulfate 90 mcg/actuation HFA aerosol inhaler 2 puff inhalation Q6H PRN (Reason: Shortness Of Breath) losartan 25 mg tablet 25 mg PO DAILY Qty: 90 3RF clopidogrel 75 MG tablet 75 mg PO DAILY 30 Days Qty: 30 0RF dicyclomine 10 mg capsule 20 mg PO Q6H PRN PRN (Reason: abdominal discomfort) Qty: 30 0RF ondansetron [ondansetron] 4 mg tablet,disintegrating 8 mg PO Q8H PRN PRN (Reason: Nausea) Qty: 15 0RF Primary Care Provider: Bird Ronquillo Referrals: Bird Ronquillo MD [Primary Care Provider] - Disposition Disposition: Home, Self Care What to do if you have Problems For any increased pain, shortness of breath, bleeding, nausea or vomiting, chestpain, or any unexpected problems, contact your Primary Care Provider. Call [facility] ([phone]) or report to the closest Emergency Room. Call 911 if necessary. 11/03/22315 <Electronically signed by Kunal Bray DO> Cosigner Signature (if applicable): CC: Dr. Bird Ronquillo MD ~ Signed [facility] Work Phone: [phone]) 862-111206-07-2023 Miscellaneous Notes* Telephone Encounter - Vanessaitalia Gordo - 11/02/2022 11:14 AM EDT Done. Patient has been scheduled. Diamond * Telephone Encounter - Ilene Snowolegario - 11/01/2022 3:16 PM EDT Pt stopped in to schedule appt regarding L leg. Pt stated it is doing it again and wants appt w/doctor. Pt has seen Dr. Cherry. Pt can be reached at [phone]. Thank you. documented in this encounterGerman Hospital04-05-2023 Discharge summary Author Jeff West [facility] August 31, 2022 3:47pm Note Date/Time August 26, 2022 11: 02am [facility] Physical Therapy [facility] [address] [place] [address]. [address] [place] [address] / REHABILITATION SERVICES DISCHARGE SUMMARY MR#: [id number] Acct: [id number] Name: TEMITOPE CASTELLON Rep #: [id number] : 1955 67 From: Cert. WHIT SyedT, OCS Referring Dr.: Dr. Giuseppe Mireles MD Status: REG [facility] It has been my pleasure to treat TEMITOPE CASTELLON referred by Dr. Giuseppe Mireles MD, with the diagnosis of IMPINGEMENT RIGHT SHOULDER for a total of 9 visit(s). Discharge Date: 08/24/22 Please see the following information for a summary of their discharge status. Subjective: Doing good ready for d/c. Doing ex's at home Right Shoulder Pain Intensity (Out of 10): 0 Right Elbow Pain Intensity (Out of 10): 0 Right Neck Pain Intensity (Out of 10): 0 % Improvement: 90 Objective/Function: POSTURE: WFL. MMT: RTC/DELTOID /5. AROM: RIGHT UE. CERVICAL ROM: flexion WFL ,extension min , lateral flexion/extension min/mod loss Goal 1:: I with HEP cervical Goal Progress: Goal Met Goal 2:: Patient to demonstrate 50% improvement to function with less pain Goal Progress: Goal Met Goal 3:: Patient to improve cervical ROM for function of recovery to turn neck to right Goal Progress: Goal Met Goal 4:: Patient to improve neck oswestry by 5 points to improve QOL and function Goal Progress: Goal Met Goal 5:: Patient to perform ADLS' and housework tasks with right arm with min limiations Goal Progress: Goal Met Plan: D/C If there are questions or concerns regarding this patient's physical therapy, please feel free to call me at [phone]. Thank you for the referral of thispatient. Sincerely, Jeff West PT, Cert MDT, OCS Balance/Gait/Functional tests - Balance/Special Test Scores Oswestry Neck Score: 1 <Electronically signed by Jeff West PT, Cert. T, OCS> 08/31/22 1548 CC: Dr. Giuseppe Mireles MD; [facility] ~ JLA Signed [facility] Work Phone: 1(493) 123-877802-21-[address] Jackson [facility] July 19, 2022 4:56pm Note Date/Time July 19, 2022 3:49pm [facility] Medical Records Department [address] [place] [address] Emergency Department Summary 07/19/22 MR#: [id number] Acct: [id number] Name: TEMITOPE CASTELLON Gabriel Rep #:[id number] : 1955 67 From: Naif Jackson MD PCP: [facility] St atus:REG ER Location: ED HPI HPI - Fall History of Present Illness Chief Complaint: Fall Narrative Narrative: 67-year-old female past medical history of CAD, CVA, denies being on blood thinners however, presents with bilateral knee pain and bilateral hand pain status post fall. She states that approximately 3 hours ago she was walking in the parking lot of [employer], and stepped in a hole. She fell forward, onto her knees and onto her bilateral hands. Her boyfriend does state that she was walking alongside him, and he turned to talk to her and saw that she had fallen onto the ground. She now complains of mainly left knee pain and pain at the base of her left thumb. She has bruising on both of her hands, and both of her knees, but she was able to get up after crawling. She denies hitting her head or loss of consciousness. No neck pain, no other injury. [facility] Medical History Abdominal pain Abnormal Holter monitor finding Acute dysfunction of both eustachian tubes Acute seasonal allergic rhinitis Acute serous otitis media Ambulates with cane Anxiety Anxiety disorder Arthritis Atherosclerotic heart disease of [place] coronary artery without angina pectoris Bronchitis Bruising CAD (coronary artery disease) Chest pain Constipation COPD (chronic obstructive pulmonary disease) Depression Diaphragm paralysis Difficulty chewing Difficulty swallowing Easy bruising Essential hypertension Former smoker Fuchs' corneal dystrophy Gastric reflux High cholesterol History of cerebrovascular disease History of CVA (cerebrovascular accident) History of echocardiogram History of heart attack History of hiatal hernia History of IBS History of irregular heartbeat History of renal disease History of stress test HTN (hypertension) Hypothyroidism Hypoxia Mixed hyperlipidemia Restless legs Shortness of breath on exertion Sinus pause Skin tear Stroke/cerebrovascular accident Thigh pain Thyroid disease Traumatic avulsion of nail plate of toe Wears dentures Wears glasses Home Medications cholecalciferol (vitamin D3) 125 mcg (5,000 unit) capsule 5,000 unit PO DAILY SUPPLEMENT 08/14/18 [History Last Taken 06/07/22] levocetirizine 5 mg tablet (Allergy Relief (levocetirizine)) 5 mg PO DAILY ALLERGIES 10/31/19 [History Last Taken 07/13/22] lisinopril 10 mg tablet 10 mg PO DAILY BLOOD PRESSURE 03/21/20 [History Last Taken 07/13/22] citalopram 10 mg tablet 10 mg PO DAILY DEPRESSION 08/17/21 [History Last Taken 06/07/22] levothyroxine 50 mcg tablet 50 mcg PO DAILY THYROID 08/17/21 [History Last Taken 06/07/22] tiotropium 2.5 mcg-olodaterol 2.5 mcg/actuation mist for inhalation (Stiolto Respimat) 2 inh inhalation DAILY COPD 06/07/22 [History Last Taken 06/07/22] clopidogrel 75 mg tablet 75 mg PO DAILY BLOOD THINNER 30 days #30 tabs 06/08/22 [Rx Last Taken 07/13/22] tramadol 50 mg tablet 50 mg PO Q8H PRN pain #12 tabs 06/30/22 [Rx Last Taken Unknown] albuterol sulfate 90 mcg/actuation aerosol inhaler 2 puff inhalation Q6H PRN Shortness Of Breath 07/01/22 [History Last Taken Unknown] atorvastatin 40 mg tablet 40 mg PO DAILY 07/01/22 [History Last Taken Unknown] Allergy/AdvReac Type Severity Reaction Status Date / Time hydrocodone bitartrate Allergy HALLUCINATE Verified 07/19/22 14:50 [From Vicodin] S vancomycin Allergy Rash Verified 07/19/22 14:50 fish derived AdvReac Anaphylaxis Verified 07/19/22 14:50 morphine AdvReac HALLUCINATE Verified 07/19/22 14:50 S Family History Mother Diabetes Heart disease Hypertension High cholesterol Father Heart disease Hypertension High cholesterol CVA (cerebral vascular accident) Surgical History History of bilateral cataract extraction History of right breast biopsy History of shoulder surgery History of surgery on lower extremity History of tubal ligation Social History household members: significant other housing: apartment pets and animals: Yes pets and animals: dog(s) Smoking Status: Former smoker quit date: 10/28/19 pack-years: 25 Tobacco: How many years used: 25 second hand exposure: Yes alcohol intake: never substance use type: does not use caffeine: Yes Type: coffee Number of servings: 1 ROS ROS ED ROS Narrative Constitutional: No fever, no chills. HEENT: No sore throat. No neck pain. No loss of vision. No rhinorrhea. Cardiovascular: No chest pain. No palpitations. No pedal edema. Respiratory: No cough, no shortness of breath. Abdominal: No abdominal pain. No nausea. No vomiting. Genitourinary: No dysuria. No hematuria. Musculoskeletal: No myalgias. Bilateral heel of hand pain and bruising, bilateral knee pain left greater than right, just distal to patella. Neurologic: No headaches. No dizziness. No lightheadedness. Skin: No rash. No change in color. Psychiatric: No depression. No anxiety. EXAM Physical Exam Narrative Exam Narrative: Afebrile. Vital signs noted. HEENT: Normocephalic. Atraumatic. PERRL, EOMI. Neck soft and supple. No pointtenderness or step off. Cardiovascular: Regular rate and rhythm. No murmurs, rubs, or gallops appreciated. Respiratory: No tachypnea. Lungs clear to auscultation bilaterally. Gastrointestinal: Abdomen soft, nontender, with normoactive bowel sounds. No rebound or guarding. Neurological: Awake. Alert. Nonfocal, nonlateralizing. Skin: No rash. Normal color. No pallor. Musculoskeletal: No pedal edema. Full range of motion extremities including bilateral wrists and bilateral knees. Positive ecchymosis and tenderness [place] bilateral hands left greater than right. Able to oppose bilateral thumbs. Mild tenderness left proximal tibia, flexion and extension mechanisms intact. Able to lift legs off bed without difficulty. Const Vital Signs: 07/19/22 14:47 07/19/22 15:58 Temperature 98 F Temperature Source Temporal Pulse Rate 62 Respiratory Rate 16 Respiratory Effort Normal Non-Labored Respiratory Depth Normal Respiratory Pattern Normal Blood Pressure 161/75 H Blood Pressure Mean 103 Pulse Ox 98 Oxygen Delivery Method Room Air MDM MDM MDM Narrative Medical decision making narrative: Patient was given Tylenol and an ice pack for comfort. X-rays were obtained of the bilateral knees and bilateral hands to rule out fractures. I reviewed and interpreted the patient's x-rays of her bilateral hands and see no evidence of acute fracture, additionally I reviewed and interpreted her bilateral knee x-rays and see no evidence of fracture. I reviewed the radiology reports on theseimages and they confirm that there is no evidence of acute fracture noted. At this point in time, she will continue [id number] medications, and icing the affected areas. I feel she can be discharged safely home with follow-up. She states she already follows up with orthopedics regarding her shoulder pain. Return instructions to the emergency department were reviewed. Disposition is discharged home in stable condition. Radiography Diagnostic Testing: Clinical Impression(s) from Imaging Studies Hand X-Ray 07/19/22 16:10 IMPRESSION: Old mallet finger fifth DIP joint. No acute fracture noted. Electronically Signed: Jovanni Urias MD at 16:36 EST , Hand X-Ray 07/19/22 16:10 IMPRESSION: Normal x-ray examination of the hand. Electronically Signed: Jovanni Urias MD at 16:34 EST , Knee X-Ray 07/19/22 16:10 IMPRESSION: Normal x-ray examination of the knee. Electronically Signed: Jovanni Urias MD at 16:39 EST , Knee X-Ray 07/19/22 16:10 IMPRESSION: Normal x-ray examination of the knee. Electronically Signed: Jovanni Urias MD at 16:38 EST , Discharge Plan Triage Chief Complaint: Fall ED Provider: Naif Jackson Dx/Rx/DC Orders Clinical Impression: Fall, Hand contusion, Contusion of left knee and lower leg Instructions: ED Hand Contusion, ED Contusion, Lower Extremity, ED Mechanical Fall Prescriptions: No Action cholecalciferol (vitamin D3) 5,000 unit capsule 5,000 unit PO DAILY levocetirizine [Allergy Relief (levocetirizin)] 5 mg tablet 5 mg PO DAILY citalopram 10 mg tablet 10 mg PO DAILY levothyroxine 50 mcg tablet 50 mcg PO DAILY atorvastatin 40 mg tablet 40 mg PO DAILY albuterol sulfate 90 mcg/actuation HFA aerosol inhaler 2 puff inhalation Q6H PRN (Reason: Shortness Of Breath) lisinopril 10 MG tablet 10 mg PO DAILY Stiolto Respimat 2.5-2.5 mcg/actuation mist 2 inh inhalation DAILY clopidogrel 75 MG tablet 75 mg PO DAILY 30 Days Qty: 30 0RF tramadol 50 mg tablet 50 mg PO Q8H PRN (Reason: pain) Qty: 12 0RF [facility] [facility] [Primary Care Provider] - Activity Restrictions/Additional Instructions: Follow-up with orthopedics as needed. Take Tylenol and ice the affected areas. Disposition Disposition: Home, Self Care What to do if you have Problems For any increased pain, shortness of breath, bleeding, nausea or vomiting, chestpain, or any unexpected problems, contact your Primary Care Provider. Call [facility] ([phone]) or report to the closest Emergency Room. Call 911 if necessary. 07/19/22 1656 <Electronically signed by Naif Jackson MD> Cosigner Signature (if applicable): CC: [facility] ~ Signed [facility] Work Phone: [phone]) 359-953912-08-2022 History of Present illness Narrative* Thelma Jaimes APRN.ENVIRONMENTAL PROJECTS ADVISOR - 05/05/2022 1:39 PM EST Plastic Surgery Postop Note Subjective: Temitope Castellon is a 66 year old female who presents Left thigh percutaneous scar releaseand fat grafting (Left: Leg Upper) GRAFTING OF AUTOLOGOUS FAT BY LIPO 50 CC OR LESS TRUNK, BREAST, SCALP, ARMS AND/OR LEGS (Abdomen) GRAFTING OF AUTOLOGOUS FAT BY LIPO EA ADDL 50 CC 03/31/22 Physical Exam Ht 167.6 cm (5' 6) Wt 70.3 kg (155 lb) BMI 25.02 kg/m General Appearance: Well appearing, alert, in no acute distress, well-hydrated, well nourished.. Skin: Skin color, texture, turgor normal, no suspicious rashes or lesions. Neurologic: Gait normal. Reflexes normal and symmetric. Sensation grossly intact.. INCISION: Dry and intact, without redness; ASSESSMENT/PLAN: 1. Post-operative state - ICD9: V45.89, ICD10: Z98.890 -happy with results -can continue scar care -compression as needed -reach out to office if any concerns Thelma Jaimes APRN.WILVER documented in this encounterGerman [facility]-27[facility]22 History and physical note * Lashonda Magaña APRN.CNP - 03/24/2022 10:00 AM EDT HISTORY AND PHYSICAL EXAMINATION SERVICE DATE: 03/23/2022 SERVICE TIME: 10:18 AM PRIMARY CARE PHYSICIAN: Danae Manrique REASON FOR VISIT: Temitope Castellon is a 66 year old female who is scheduled for at the request of @REFPROV2@ for. My final recommendation will be communicated back to the requesting physician by wayof shared medical record or letter. Subjective The patient has the following: ACTIVE PROBLEM LIST Dysuria Hx of Seasonal Allergies Tia (Transient Ischemic Attack) Hiatal Hernia Adhesive Capsulitis of Left Shoulder Hyperlipidemia Depression Osteopenia Vitamin D Deficiency Capsulitis, Adhesive Shoulder Rectal Bleeding Abnormal Ekg Headache, Variant Migraine Pain in Joint, Shoulder Region History of Cva (Cerebrovascular Accident) Gerd (Gastroesophageal Reflux Disease) Dizziness COVID-19 Immunization Status Overdue - COVID-19 VACCINE (3 - Booster for Moderna series) Overdue since 12/24/2020 10/29/2020 Imm Admin: COVID-19 vaccine, full dose (MODERNA) 09/23/2020 Imm Admin: COVID-19 vaccine, full dose (MODERNA) CHIEF COMPLAINT: left leg pain HPI: Patient is a 66 year old female here for a preoperative exam. Pt complains of a painful indent/bruise/closed wound on the left upper leg. Pt first noticed it in May 2021 and over time it progressively got worse and started to indent. Pt states that is is sometimes painful. Pt denies pain currently. Pt states that the indent will become painful in cold weather, describes the pain as sharp, she states that it radiates to the knee and ankle.Pt discussed with surgeon and agrees to surgical intervention. REVIEW OF SYSTEMS: General: Negative for: unintentional weight change, malaise and fever. Neurological: Positive for: strokes. Negative for: headaches and seizures. Respiratory: Positive for: COPD. Negative for: asthma, URI < 2 weeks and obstructive sleep apnea. Cardiovascular: Positive for: hyperlipidemia and hypertension Negative for: arrhythmia, CAD, chest pain, CHF and DVT/PE. GI: Positive for: GERD Negative for: abdominal pain, nausea and vomiting. : Negative for: dysuria, hematuria and renal failure. SECURITY SERVICES MANAGER: Negative for abnormal vaginal bleeding, abnormal vaginal discharge. Endocrine: Positive for: hypothyroidism. Negative for: diabetes mellitus. Hematology: Positive for: chronic anti-coagulation/platelet meds. Patient is on anti- coagulation/platelet medication(s): Plavix. Negative for: anemia, factor V Leiden and von Willebrand disease. Oncology: No history of CA metastasis, chemo within 30 days, or radiotherapy within 90 days. No history of oncological symptoms or problems. Psych: Positive for: anxiety and depression. Musculoskeletal: Positive for: joint pain. Negative for: back pain. Skin: Negative for lesions, rash and itching. PAST MEDICAL HISTORY Diagnosis Date Abdominal pain, right lower quadrant Benign neoplasm of colon COPD (chronic obstructive pulmonary disease) (HCC) Dysuria HTN (hypertension) Hyperlipemia Hypothyroidism Left leg pain Leiomyoma of uterus, unspecified very mild changes seen on sono Reflux Seasonal allergies Stroke (HCC) x 4 Suprapubic pain PAST SURGICAL HISTORY Procedure Laterality Date BREAST BIOPSY 05/29/1997 (L) breast biopsy- Dr. Logan COLONOSCOPY FLX DX W/COLLJ SPEC WHEN PFRMD 10/17/2012 Colonoscopy ESOPHAGOGASTRODUODENOSCOPY TRANSORAL DIAGNOSTIC 10/17/2012 EGD LIG/TRNSXJ FLP TUBE ABDL/VAG APPR UNI/BI 05/29/1982 PAST SURGICAL HISTORY OF left shoulder manipulation REMV CATARACT EXTRACAP,INSERT LENS Bilateral 2014 SURGICAL ARTHROSCOPY ADAN W/CORACOACRM LIGM RLS 09/10/2013 Left shoulder arthroscopic Sub AC decompression FAMILY HISTORY Problem Relation Age of Onset other (ulcers in colon [Other]) Mother Thyroid Mother Dementia Mother other (TIA [Other]) Father other (Heart problems [Other]) Father Stroke Father Heart Attack Father Alzheimer's Disease Father Parkinson s Disease Father Diabetes Maternal Grandmother other (hypoglycemia [Other]) Other Maternal Side other (Ovarian Cyst [Other]) Other Maternal Side, sisters Coronary Artery Disease No Family History Hypertension No Family History Blood Clots No Family History DVT No Family History Factor 5 Leiden No Family History Blood Disease No Family History Systemic Lupus Erythematosus No Family History Multiple Sclerosis No Family History Bipolar disorder No Family History Schizophrenia No Family History Aneurysm No Family History COPD No Family History Social History Tobacco Use Smoking status: Former Packs/day: 1.00 Years: 40.00 Pack years: 40.00 Types: Cigarettes Quit date: 07/27/2020 Years since quittin.6 Smokeless tobacco: Never Tobacco comments: d/c 07/27/2020 Vaping Use Vaping Use: Never used Substance Use Topics Alcohol use: No Drug use: No Prior to Admission medications as of 03/24/22 0954 Medication Sig Last Dose Taking STIOLTO RESPIMAT 2.5-2.5 mcg/actuation INHALE 2 PUFFS BY MOUTH DAILY Taking Yes ALBUTEROL INHALATION Inhale as instructed. Taking Yes levocetirizine 5 mg tablet Take 5 mg by mouth once daily. Taking Yes acetaminophen (TYLENOL) 500 mg tablet Take 1,000 mg by mouth every 6 hours as needed. Taking Yes cholecalciferol (VITAMIN D3) 5,000 unit tab Take 5,000 Units by mouth once daily. Taking Yes citalopram hydrobromide (CELEXA) 10 mg tablet Take 10 mg by mouth once daily. Taking Yes levothyroxine (SYNTHROID) 50 mcg tablet Take 50 mcg by mouth once daily. Taking Yes lisinopril (ZESTRIL, PRINIVIL) 10 mg tablet Take 10 mg by mouth once daily. Taking Yes atorvastatin (LIPITOR) 20 mg tablet Take 1 tablet by mouth daily at bedtime. For cholesterol. Taking Yes clopidogrel (PLAVIX) 75 mg tablet Take 1 tablet by mouth once daily. Taking Yes cholecalciferol, Vitamin D3, (VITAMIN D3) 50,000 unit cap capsule Take 1 capsule by mouth once eachweek. Patient not taking: No sig reported Medication Comments documented by Elizabeth Schmitz Ma on 08/13/2013 at 0911. 08/13/13 - Plavix on hold until after surgery for her shoulder ALLERGIES Allergen Reactions Fish Swelling, Shortness of Breath Morphine Mental Status Change, Other: See Comments Vicodin [Hydrocodon* Vomiting Hydrocodone Bitartr* Other: See Comments Objective PHYSICAL EXAM: General: alert and oriented and healthy appearance. Pertinent negatives noted - not distressed. Skin: normal color, no rash or lesions. HEENT: No additional findings for patient's neck. Cardiovascular: regular rate and rhythm, normal S1 and S2, no rub, murmurs, or gallop. Respiratory: normal breath sounds, no wheezes or crackles. No chest wall deformity or tenderness. Abdomen: bowel sounds present and soft. Pertinent negatives noted - not tender. Extremities: no deformity, no edema or tenderness, no joint swelling or clubbing. Neurological: normal cognition and motor skills. Gait normal. No weakness or sensory deficit. PAIN ASSESSMENT: VITALS: BP 141/67 Pulse 59 Temp 98.1 Ht 5' 6 (1.68m) Wt 155 lb (70.3kg) SpO2 97% BMI 25.03 kg/(m^2). Diagnostic tests reviewed for today's visit: Lab Value Units Date High Low HB No results within date range. HCT No results within date range. WBC No results within date range. PLT No results within date range. NA No results within date range. K No results within date range. GLUC No results within date range. BUN No results within date range. CREAT No results within date range. PTSEC No results within date range. INR No results within date range. APTT No results within date range. ALT No results within date range. AST No results within date range. TBILI No results within date range. TSH No results within date range. Lab Value Units Date High Low HCGQT No results within date range. UHCG No results within date range. HCG, BODY* No results within date range. Lab Value Units Date High Low ABORHD No results within date range. ABSCREEN No results within date range. No results found for: HBA1C No results found for this or any previous visit (from the past 8760 hour(s)). No results found for this or any previous visit (from the past 54864 hour(s)). Assessment No problem-specific Assessment & Plan notes found for this encounter. [place] Activity Status Index: METS: Do yardwork, such as raking leaves, weeding, or pushing a power mower (4.50 METs) DASI Score: 4.5 (+SOB) Patient denies any chest pain or undue shortness of breath with the above physical activity. ARISCAT Score: Age: 51-80 Preoperative SpO2: >=96% Respiratory infection in the last month: No Preoperative anemia: No Surgical incision: peripheral Duration of surgery: <2 hrs Emergency procedure: No ARISCAT Score: 3 ANESTHESIA FINDINGS: Intubation History: No history of difficult intubation. No abnormal airway history Significant Anesthesia Considerations: Pt states that she tends to have low pulse Ox after surgery,she has a history of COPD Airway History: No history of difficult airway No abnormal airway history I - PHYSICAL EVALUATION DENTAL Dental findings: missing tooth/teeth. Dentures, upper: complete. II - ANESTHESIA PLAN Anesthetic Plan: general Prepared for Surgery: CONSULTS: The following consults have been initiated at this time: primary care/internal medicine (in [facility] 02/24/2022). Planned Anesthetic: general Implantable Devices: IOL OU Patient has the following medical conditions which may affect vani-operative course COPD - Pt uses rescue inhaler once a week, follows with pulmonary. Denies hospitalization or pneumonia in the last 6 months. Instructed to use inhalers morning or surgery and bring to the hospital. HTN - Well controlled. Lisinopril. BP elevated in PST, pt denies SUERO, CP or vision changes. Pt advised to monitor and discuss with PCP Hyperlipidemia - Statin. Stroke - 1014, intermittent right sided weakness, dysphasia. Plavix. Smoker - 40 pack year history, quit 07/2020 Pt taking Plavix I instructed patient to get preop instructions from surgeon and PCP. The Following Tests/Procedures Have Been Initiated: No orders per surgeon in [facility]. Assessment/Plan Diagnosis: Left leg pain [M79.605] PLAN Planned Procedure: Procedure(s): Left thigh percutaneous scar release and fat grafting (Left) GRAFTING OF AUTOLOGOUS FAT BY LIPO 50 CC OR LESS TRUNK, BREAST, SCALP, ARMS AND/OR LEGS (N/A) The Following Tests/Procedures Have Been Initiated: Orders Placed This Encounter STIOLTO RESPIMAT 2.5-2.5 mcg/actuation Sig: INHALE 2 PUFFS BY MOUTH DAILY Instructions Given to Patient: Instructions located in the after visit summary. Patient given verbal and written preop instructions and voices comprehension and compliance. SIGNATURE: Lashonda Magaña APRN.CNP PATIENT NAME: Temitope Castellon DATE: March 23, 2022 TIME: 11:36 AM PAGER/CONTACT #: documented in this encounterGerman Hospital10-26-2022 Instructions* Patient Instructions* Lashonda Magaña APRN.CNP - 03/23/2022 11:33 AM EDT PATIENT PREOPERATIVE INSTRUCTIONS Dr. Victor has scheduled you for your procedure at this surgery center: [facility]: [phone], [address] [address] Please read below carefully for your personalized instructions. Arrival Time for Surgery: DATE: 03/31/2022 OR TIME: 12:40 AM CHECK IN TIME: 10:40 AM Please be aware that emergency situations arise, which may delay or change your surgical time. If this happens, we will notify you as soon as possible and regret any inconvenience. Dietary Restrictions: - No solid food after midnight. - You may have 12 ounces of clear liquids (water, clear juices such as apple juice or gatorade, carbonated beverages, clear tea, black coffee, jello) until 2 hours before scheduled arrival at facility. Do not eat or drink anything, including water and coffee, after 8:40 AM on the morning of your surgery. This is important because if you do, your surgery may have to be cancelled Blood Thinning Medications: - Stop NSAIDS (Ibuprofen, Advil, Aleve, Motrin, Celebrex, Mobic, Voltaren, Diclofenac etc.) 7 days before surgery, as directed by your surgeon. IF YOU TAKE ANY OF THE FOLLOWING BLOOD THINNERS, PLEASE CONTACT YOUR SURGEON AND THE PHYSICIAN WHO PRESCRIBES IT FOR YOU IN ORDER TO GET PERIOPERATIVE INSTRUCTIONS SOON POSSIBLE. BLOOD THINNERS: Aspirin , Coumadin, Plavix, Eliquis, Pradaxa, Xarelto, Lovenox, Brilinta, Effient, Savaysa, Arixtra, etc - Stop Vitamin E, fish oil, multivitamins, Marijuana, CBD oil and other over the counter herbals and dietary supplements 7 days before surgery. ?-This would not apply to cancer patients who are prescribed Marinol or any other prescription formon marijuana or CBD. Medications: Approved medications to take the morning of surgery with a sip of water: BP, Heart, thyroid, psych,seizure, and pain medications excluding NSAIDS. Use inhalers as prescribed. Please bring inhalers. Please follow up with the provider that manages your diabetes and how to prepare you for surgery. If you are taking the following medications for Type 2 diabetes: Canagliflozin (INVOKANA), dapagliflozin (FARXIGA), and empagliflozin (JARDIANCE) should each be discontinued at least 3 days before scheduled surgery. Ertugliflozin (STEGLATRO) should be discontinued at least four days before scheduled surgery. Pain Medications: - Your pain medication may cause thinning of your blood. Please see directions for Blood Thinning Medications. Medications to be taken with small amount of fluid on the morning of surgery: see medication list If you start any new medications after today's visit, please contact the surgeon's office. Important Reminders: -- If you have a stimulator, implant or pump that requires a remote please bring the remote with you day of surgery. - If you use CPAP/BIPAP, bring the machine with you to the surgery center. - If you are prescribed inhalers for breathing, continue using them AND bring them to the surgery center. - Candy, mints, gum and tobacco products are NOT permitted the morning of surgery. - Hearing aids, dentures and glasses may be worn the morning of surgery. - NO jewelry, body piercings, makeup, hairpins or contacts are to be worn the day of surgery. -NO keys, wallet, watches, or purses -Oral hygiene and a shower or bath is required the evening before or the morning of surgery. Use the Hibiclens body wash supplied to you along with the instruction. - NO lotion, creams, powders or deodorants on the skin the day of surgery -Wear loose, comfortable clothing that will accommodate bandages. -Your length of stay will be determined by your surgeon - You will need to have someone else (Family or friend) drive you home once discharged from the hospital. You are not allowed to drive yourself home after surgery. - YOU MUST HAVE A RESPONSIBLE INSPECTOR TOOL TAKE YOU HOME. A AGRICULTURAL LABOR CAMP MANAGER, CAB OR UBER INSPECTOR TOOL CANNOT BE [place] RESPONSIBLE INSPECTOR TOOL. - We recommend that a responsible person stays with you overnight to take care of you. - You cannot stay in a hotel alone after outpatient surgery. You will not be permitted to have yoursurgery, if you do not have someone to take care of you. --IF you are having a TOTAL KNEE or HIP REPLACEMENT please bring your walker into the building withyou. Update to visitor policy. Current policy will allow for 2 visitors. We are not allowing children inour waiting room. No food or drink is allowed. Everyone must keep their masks on. We are not allowing a visitor in our PACU area unless a minor, staff interpreter or a special circumstance. Each patient isallowed two visitor on the day of surgery/procedure. Visitors will be asked to wear a mask that covers their nose and mouth at all times. The visitors will be allowed to stay with the patient prior to going to surgery/procedure. No visitors are allowed in our recovery room. -It is recommended patients have a 72 hour period between getting their vaccine and date of surgery. If you develop symptoms such as a fever, cold, or flu, or have other changes to your health within TWO DAYS of scheduled surgery or the morning of surgery, please contact the surgery center above. Personal Belongings: - Leave ALL valuables and money at home or with family members. - You will need a form of ID and insurance card to check in the morning of surgery. - You will have to wear a hospital gown during your stay but if you wish to bring undergarments forafter surgery you may. Lashonda Magaña APRN.CNP 03/23/22 documented in this encounterGerman Hospital09-08-[facility]22 History and physical note * Lashonda Magaña APRN.CNP - 02/03/2022 1:00 PM EDT HISTORY AND PHYSICAL EXAMINATION SERVICE DATE: 02/01/2022 SERVICE TIME: 1:09 PM PRIMARY CARE PHYSICIAN: Danae Manrique REASON FOR VISIT: Temitope Castellon is a 66 year old female who is scheduled for Procedure(s): Left thigh percutaneous scar release and fat grafting (Left) GRAFTING OF AUTOLOGOUS FAT BY LIPO 50 CC OR LESS TRUNK, BREAST, SCALP, ARMS AND/OR LEGS (N/A) at the request of Dr. Jeff Victor for routine H&P. My final recommendation will be communicated back to the requesting physician by way of shared medical record or letter. Subjective The patient has the following: ACTIVE PROBLEM LIST Dysuria Hx of Seasonal Allergies Tia (Transient Ischemic Attack) Hiatal Hernia Adhesive Capsulitis of Left Shoulder Hyperlipidemia Depression Osteopenia Vitamin D Deficiency Capsulitis, Adhesive Shoulder Rectal Bleeding Abnormal Ekg Headache, Variant Migraine Pain in Joint, Shoulder Region History of Cva (Cerebrovascular Accident) Gerd (Gastroesophageal Reflux Disease) Dizziness COVID-19 Immunization Status Overdue - COVID-19 VACCINE (3 - Booster for Moderna series) Overdue since 03/31/2021 10/29/2020 Imm Admin: COVID-19 vaccine, full dose (MODERNA) 09/23/2020 Imm Admin: COVID-19 vaccine, full dose (MODERNA) CHIEF COMPLAINT: Left leg pain HPI: Patient is a 66 year old female here for a preoperative exam. Pt complains of a painful indent/bruise/closed wound on the left upper leg. Pt first noticed it in May 2021 and over time it progressively got worse and started to indent. Pt states that is is sometimes painful. Pt denies pain currently. Pt discussed with surgeon and agrees to surgical intervention. REVIEW OF SYSTEMS: General: No weight loss, malaise or fevers. Negative for: unintentional weight change, malaise and fever. Neurological: Positive for: TIA and strokes. Patient's stroke is with residual deficits. Negative for: headaches and seizures. Respiratory: Positive for: COPD. Negative for: asthma, current cough, dyspnea, tobacco use, URI < 2 weeks and obstructive sleep apnea. Cardiovascular: Positive for: hyperlipidemia and hypertension Negative for: AICD/PPM, angina, arrhythmia, atrial fibrillation, CAD, chest pain, CHF and DVT/PE. GI: Positive for: GERD Negative for: abdominal pain, dysphagia, nausea and vomiting. : Negative for: dysuria, frequent urination, hematuria, renal failure and urgency. SECURITY SERVICES MANAGER: Negative for abnormal vaginal bleeding, abnormal vaginal discharge. Endocrine: Positive for: hypothyroidism. Negative for: diabetes mellitus and hyperthyroidism. Hematology: Positive for: chronic anti-coagulation/platelet meds. Patient is on anti- coagulation/platelet medication(s): Plavix. Negative for: anemia, bruises/bleeds easily, factor V Leiden and von Willebrand disease. Oncology: No history of CA metastasis, chemo within 30 days, or radiotherapy within 90 days. No history of oncological symptoms or problems. Psych: Positive for: anxiety and depression. Musculoskeletal: Negative for joint pain or swelling, back pain or muscle pain. Skin: Negative for lesions, rash and itching. PAST MEDICAL HISTORY Diagnosis Date Abdominal pain, right lower quadrant Benign neoplasm of colon COPD (chronic obstructive pulmonary disease) (HCC) Dysuria Hyperlipemia Left leg pain Leiomyoma of uterus, unspecified very mild changes seen on sono Reflux Seasonal allergies Stroke (HCC) x 4 Suprapubic pain PAST SURGICAL HISTORY Procedure Laterality Date BREAST BIOPSY 05/29/1997 (L) breast biopsy- Dr. Logan COLONOSCOPY FLX DX W/COLLJ SPEC WHEN PFRMD 10/17/2012 Colonoscopy ESOPHAGOGASTRODUODENOSCOPY TRANSORAL DIAGNOSTIC 10/17/2012 EGD LIG/TRNSXJ FLP TUBE ABDL/VAG APPR UNI/BI 05/29/1982 PAST SURGICAL HISTORY OF left shoulder manipulation REMV CATARACT EXTRACAP,INSERT LENS Bilateral 2013, 2014 SURGICAL ARTHROSCOPY ADAN W/CORACOACRM LIGM RLS 09/10/2013 Left shoulder arthroscopic Sub AC decompression FAMILY HISTORY Problem Relation Age of Onset other (TIA [Other]) Father other (Heart problems [Other]) Father Stroke Father Heart Attack Father Alzheimer's Disease Father Parkinson s Disease Father other (ulcers in colon [Other]) Mother Thyroid Mother Dementia Mother Diabetes Maternal Grandmother other (hypoglycemia [Other]) Other Maternal Side other (Ovarian Cyst [Other]) Other Maternal Side, sisters Coronary Artery Disease No Family History Hypertension No Family History Blood Clots No Family History DVT No Family History Factor 5 Leiden No Family History Blood Disease No Family History Systemic Lupus Erythematosus No Family History Multiple Sclerosis No Family History Bipolar disorder No Family History Schizophrenia No Family History Aneurysm No Family History COPD No Family History Social History Tobacco Use Smoking status: Former Packs/day: 1.00 Years: 40.00 Pack years: 40.00 Types: Cigarettes Quit date: 07/27/2020 Years since quittin.5 Smokeless tobacco: Never Tobacco comments: d/c 07/27/2020 Vaping Use Vaping Use: Never used Substance Use Topics Alcohol use: No Drug use: No Prior to Admission medications as of 02/03/22 1237 Medication Sig Last Dose Taking levocetirizine 5 mg tablet Take 5 mg by mouth once daily. Taking Yes acetaminophen (TYLENOL) 500 mg tablet Take 1,000 mg by mouth every 6 hours as needed. Taking Yes cholecalciferol (VITAMIN D3) 5,000 unit tab Take 5,000 Units by mouth once daily. Taking Yes citalopram hydrobromide (CELEXA) 10 mg tablet Take 10 mg by mouth once daily. Taking Yes levothyroxine (SYNTHROID) 50 mcg tablet Take 50 mcg by mouth once daily. Taking Yes lisinopril (ZESTRIL, PRINIVIL) 10 mg tablet Take 10 mg by mouth once daily. Taking Yes atorvastatin (LIPITOR) 20 mg tablet Take 1 tablet by mouth daily at bedtime. For cholesterol. Taking Yes clopidogrel (PLAVIX) 75 mg tablet Take 1 tablet by mouth once daily. Taking Yes cholecalciferol, Vitamin D3, (VITAMIN D3) 50,000 unit cap capsule Take 1 capsule by mouth once eachweek. Patient not taking: No sig reported Not Taking Medication Comments documented by Elizabeth Schmitz Ma on 08/13/2013 at 0911. 08/13/13 - Plavix on hold until after surgery for her shoulder ALLERGIES Allergen Reactions Fish Swelling, Shortness of Breath Morphine Mental Status Change, Other: See Comments Vicodin [Hydrocodon* Vomiting Hydrocodone Bitartr* Other: See Comments Objective PHYSICAL EXAM: General: alert and oriented and healthy appearance. Pertinent negatives noted - not distressed. Skin: normal color, no rash or lesions. HEENT: EOM intact and pupils equal round. Cardiovascular: regular rate and rhythm, normal S1 and S2, no rub, murmurs, or gallop. Respiratory: normal breath sounds, no wheezes or crackles. No chest wall deformity or tenderness. Abdomen: bowel sounds present. Pertinent negatives noted - no abnormal bowel sounds. Extremities: no deformity, no edema or tenderness, no joint swelling or clubbing. Neurological: normal cognition and motor skills. Gait normal. No weakness or sensory deficit. PAIN ASSESSMENT: VITALS: BP 152/70 Pulse 50 Temp 97.9 Resp 16 Ht 5' 6 (1.68m) Wt 145 lb (65.8kg) SpO2 97% BMI23.41 kg/(m^2). Diagnostic tests reviewed for today's visit: Lab Value Units Date High Low HB No results within date range. HCT No results within date range. WBC No results within date range. PLT No results within date range. NA No results within date range. K No results within date range. GLUC No results within date range. BUN No results within date range. CREAT No results within date range. PTSEC No results within date range. INR No results within date range. APTT No results within date range. ALT No results within date range. AST No results within date range. TBILI No results within date range. TSH No results within date range. Lab Value Units Date High Low HCGQT No results within date range. UHCG No results within date range. HCG, BODY* No results within date range. Lab Value Units Date High Low ABORHD No results within date range. ABSCREEN No results within date range. No results found for: HBA1C No results found for this or any previous visit (from the past 8760 hour(s)). No results found for this or any previous visit (from the past 72953 hour(s)). Assessment No problem-specific Assessment & Plan notes found for this encounter. [place] Activity Status Index: METS: Do yardwork, such as raking leaves, weeding, or pushing a power mower (4.50 METs) DASI Score: 4.5 (NO CP, some SOB) ARISCAT Score: Age: 51-80 Preoperative SpO2: >=96% Respiratory infection in the last month: No Preoperative anemia: No Surgical incision: peripheral Duration of surgery: <2 hrs Emergency procedure: No ARISCAT Score: 3 ANESTHESIA FINDINGS: Intubation History: No history of difficult intubation. No abnormal airway history Significant Anesthesia Considerations: Pt states that her SaO2 drops during anesthesia Airway History: No history of difficult airway No abnormal airway history I - PHYSICAL EVALUATION DENTAL Dentures, upper: complete. Additional comments: No teeth on the bottom. II - ANESTHESIA PLAN Anesthetic Plan: general Prepared for Surgery: CONSULTS: The following consults have been initiated at this time: primary care/internal medicine (Scheduled). Planned Anesthetic: general The Following Tests/Procedures Have Been Initiated: Orders Placed This Encounter levocetirizine 5 mg tablet Sig: Take 5 mg by mouth once daily. Implantable Devices: IOL OU Patient has the following medical conditions which may affect vani-operative course COPD - No inhalers, follows with pulmonary. Denies hospitalization or pneumonia in the last 6 months HTN - Well controlled. Lisinopril. BP elevated in PST, pt denies SUERO, CP or vision changes. Pt advised to monitor and discuss with PCP Hyperlipidemia - Statin. Stroke - 1014, intermittent right sided weakness, dysphasia. Plavix. Smoker - 40 pack year history, quit 07/2020 Pt taking Plavix I instructed patient to get preop instructions from surgeon and PCP. The Following Tests/Procedures Have Been Initiated: None Assessment/Plan Left leg pain [M79.605] PLAN Diagnosis: Planned Procedure: Procedure(s): Left thigh percutaneous scar release and fat grafting (Left) GRAFTING OF AUTOLOGOUS FAT BY LIPO 50 CC OR LESS TRUNK, BREAST, SCALP, ARMS AND/OR LEGS (N/A) Instructions Given to Patient: Instructions located in the after visit summary. Patient given verbal and written preop instructions and voices comprehension and compliance. SIGNATURE: KAMINI Canas PATIENT NAME: Temitope Castellon DATE: February 01, 2022 TIME: 9:50 AM PAGER/CONTACT #: documented in this encounterGerman Hospital09-06-2022 Instructions* Patient Instructions* KAMINI Canas - 02/01/2022 9:50 AM EDT PATIENT PREOPERATIVE INSTRUCTIONS Your surgeon has scheduled for your procedure at this surgery center: [facility]: [phone], [address] [id number] Please enter through the main entrance and proceed to the blue elevators. [facility] is located to the left of the blue elevator. Please read below carefully for your personalized instructions. Arrival Time for Surgery: DATE: 02/10/22 OR TIME: 12:50PM CHECK IN TIME: 10:50AM Please be aware that emergency situations arise, which may delay or change your surgical time. If this happens, we will notify you as soon as possible and regret any inconvenience. Requirement for Vaccinations : 72-hour period between getting vaccine and date of surgery. Dietary Restrictions: - Nothing to eat after midnight. You may have 12 ounces of clear liquids ( water, Gatorade, apple juice, carbonated beverage, clear tea or black coffee) until 4 hours before your surgery. This is important because if you do, your surgery may have to be cancelled Blood Thinning Medications: - Stop NSAIDS (Ibuprofen, Advil, Aleve, Motrin, Celebrex, Mobic, etc.) 7 days before surgery, as directed by your surgeon. You may take Tylenol (Acetaminophen) or any of your pain medications that do not contain aspirin orNSAIDS as needed. IF YOU TAKE ANY OF THE FOLLOWING BLOOD THINNERS, PLEASE CONTACT YOUR SURGEON AND THE PHYSICIAN WHO PRESCRIBES IT FOR YOU IN ORDER TO GET PERIOPERATIVE INSTRUCTIONS SOON POSSIBLE. BLOOD THINNERS: Aspirin , Coumadin, Plavix, Eliquis, Pradaxa, Xarelto, Lovenox, Brilinta, Effient, Savaysa, Arixtra, etc - Stop Vitamin E, fish oil, multivitamins, Marijuana, CBD oil and other over the counter herbals and dietary supplements 7 days before surgery. -This would not apply to cancer patients who are prescribed Marinol or any other prescription form on marijuana or CBD. -exception Dr. Cavazos and Dr. Morgan want their patients npo at midnight. Medications: Approved medications to take the morning of surgery with a sip of water: BP, HCTZ, Heart, thyroid, psych, seizure, and pain medications excluding NSAIDS. Use inhalers as prescribed. Please bring inhalers. Diabetes Please follow up with the provider that manages your diabetes and how to prepare you for surgery. If you are taking the following medications for Type 2 diabetes: Canagliflozin (INVOKANA), dapagliflozin (FARXIGA), and empagliflozin (JARDIANCE) should each be discontinued at least 3 days before scheduled surgery. Ertugliflozin (STEGLATRO) should be discontinued at least four days before scheduled surgery. Bring your Glucometer to [facility] if you are scheduled in [place] for OR. If you have a stimulator, implant or pump that requires a remote please bring the remote with you day of surgery. Erectile dysfunction: If you take any medications for erectile dysfunction- Cialis (Tadalafil), Levitra, Staxyn, (Vardenafil), Viagra (Sildenenafil). Please do not take these for 48 hours before surgery. Pain Medications: Tylenol for pain as needed and if you are not allergic to. Medications to be taken with small amount of fluid on the morning of surgery: If you start any new medications after today's visit, please contact the surgeon's office. Important Reminders: - If you use CPAP/BIPAP, bring the machine with you to the surgery center. - If you are prescribed inhalers for breathing, continue using them AND bring them to the surgery center. - Candy, mints, gum and tobacco products are NOT permitted the morning of surgery. - Hearing aids, dentures and glasses may be worn the morning of surgery. - NO jewelry, body piercings, makeup, hairpins or contacts are to be worn the day of surgery. -Oral hygiene and a shower or bath is required the evening before or the morning of surgery. Use the Hibiclens body wash supplied to you along with the instruction. - NO lotion, creams, powders or deodorants on the skin the day of surgery -Wear loose, comfortable clothing that will accommodate bandages. -Your length of stay will be determined by your surgeon - You will need to have someone else (Family or friend) drive you home once discharged from the hospital. You are not allowed to drive yourself home after surgery. - YOU MUST HAVE A RESPONSIBLE INSPECTOR TOOL TAKE YOU HOME. A AGRICULTURAL LABOR CAMP MANAGER, CAB OR UBER INSPECTOR TOOL CANNOT BE [place] RESPONSIBLE INSPECTOR TOOL. - We recommend that a responsible person stays with you overnight to take care of you. - You cannot stay in a hotel alone after outpatient surgery. You will not be permitted to have yoursurgery, if you do not have someone to take care of you. CCAG: Given COVID 19 pandemic, one visitor is allowed in the hospital. They may wait in the surgerywaiting room while you are in surgery but must wear a mask. Only one visitor will be permitted to visit you while your admitted after surgery. If you develop symptoms such as a fever, cold, or flu, or have other changes to your health within TWO DAYS of scheduled surgery or the morning of surgery, please contact the surgery center above. Personal Belongings: - Leave ALL valuables and money at home or with family members. - You will need a form of ID and insurance card to check in the morning of surgery. - You will have to wear a hospital gown during your stay but if you wish to bring undergarments forafter surgery you may. Ambulatory surgery center [place]- orthopedic patients needing a walker should bring the walker into the building day of surgery. Orthopedic patients having surgery [facility] listed as outpatient should bring their walker into the building. Orthopedic patients having surgery [facility] listed as to be admitted should leave their walkers in the car or with a family member. KAMINI Canas 02/01/22 documented in this encounterGerman Hospital08-08-2022 History of Present illness Narrative* Lj De Santiago - 01/03/2022 7:44 AM EDT FOLLOW UP PODIATRIC OFFICE VISIT Chief Complaint: This 66 year old who presents for follow up:left total nail avulsion/evacuation ofhematoma Patient presents to clinic for follow-up left hallux. She is s/p total nail avulsion with evacuation of hematoma. She has been taking the bactrim. She denies any drainage. She denies any redness. Shedenies n/v/f/c. PAIN EVALUATION No data found in the last 1 encounters. No results found for: HBA1C PCP: Danae Manrique PAST MEDICAL HISTORY Diagnosis Date Abdominal pain, right lower quadrant Benign neoplasm of colon Dysuria Hyperlipemia Leiomyoma of uterus, unspecified very mild changes seen on sono Reflux Seasonal allergies Stroke (HCC) x 4 Suprapubic pain Current Outpatient Medications Medication Sig citalopram hydrobromide (CELEXA) 10 mg tablet Take 10 mg by mouth once daily. levothyroxine (SYNTHROID) 50 mcg tablet Take 50 mcg by mouth once daily. lisinopril (ZESTRIL, PRINIVIL) 10 mg tablet Take 10 mg by mouth once daily. atorvastatin (LIPITOR) 20 mg tablet Take 1 tablet by mouth daily at bedtime. For cholesterol. clopidogrel (PLAVIX) 75 mg tablet Take 1 tablet by mouth once daily. cholecalciferol, Vitamin D3, (VITAMIN D3) 50,000 unit cap capsule Take 1 capsule by mouth once eachweek. fluticasone (FLONASE) 50 mcg/actuation nasal spray Use 2 Sprays in each nostril once daily. Rinse mouth after use. (Patient not taking: Reported on 12/28/2021 ) BREO ELLIPTA 200-25 mcg/dose inhaler INHALE 1 INHALATION BY MOUTH EVERY DAY buPROPion XL (WELLBUTRIN XL) 150 mg 24 hr tablet Take 150 mg by mouth every morning. No current facility-administered medications for this visit. ALLERGIES Allergen Reactions Fish Swelling, Shortness of Breath Morphine Mental Status Change Vicodin [Hydrocodon* Vomiting PAST SURGICAL HISTORY Procedure Laterality Date BREAST BIOPSY 1997 (L) breast biopsy- Dr. Logan COLONOSCOPY FLX DX W/COLLJ SPEC WHEN PFRMD 10/17/2012 Colonoscopy ESOPHAGOGASTRODUODENOSCOPY TRANSORAL DIAGNOSTIC 10/17/2012 EGD LIG/TRNSXJ FLP TUBE ABDL/VAG APPR UNI/BI 1982 PAST SURGICAL HISTORY OF left shoulder manipulation SURGICAL ARTHROSCOPY ADAN W/CORACOACRSumaya BERRYM RLS 09/10/2013 Left shoulder arthroscopic Sub AC decompression Physical Exam: OBJECTIVE: Constitutional: Pt is a well developed 66 year old female who is alert, oriented, cooperative and in no apparent distress. Eyes: Following during examination. No redness or drainage. Respiratory: RR normal and nonlabored. Even breathing. No evidence of distress. Psychology: Patient is engaged during conversation. Normal affect and mood. Does not appear depressed or anxious. NVSI unchanged from previous visit. Dermatological: Left hallux s/p total nail avulsion. No local signs of infection. Nail bed is now healed. Musculoskeletal/Orthopaedic: Patient has no pain to palpation of left hallux ASSESSMENT: (S91.109A) Open wound of toe, initial encounter (primary encounter diagnosis) PLAN: 1. History and physical examination completed today. 2. Patient is s/p total nail avulsion of left hallux. The nail bed is now healed without infection.She can complete the bactrim. No need for refill based on exam today . 3. If recurrent nail causes issues, she can schedule follow-up 4. Follow-up as needed Lj De Santiago DPM * Elza Guevara RN - 12/29/2021 3:41 PM EDT AMB ROOMING INTAKE FLOWSHEET DATA Risk Screening Do you have concerns about personal safety or safety in the home?: No Patient presents with: Left Great Toe - Follow Up, Nail Avulsion Patient is here to follow up post nail avulsion of L hallux. Denies pain. No concerns for infection. Continues bandaid and neosporin. documented in this encounterGerman Hospital08-03-2022 Instructions* Patient Instructions* Lj De Santiago - 12/29/2021 4:00 PM EDT Your toe is now healed. No signs of infection Continue with bactrim until complete If you have any issues or concerns develop, contact the office. documented in this encounterGerman Hospital08-02-2022 History of Present illness Narrative* Jeff Victor MD - 12/28/2021 1:30 PM EDT Images from the original note were not included. PLASTIC SURGERY WOUND CONSULT Patient: Temitope Castellon : 1955 Date of Service: December 27, 2021 ASSESSMENT AND PLAN: 66 year old female with traumatic/painful left anterior thigh deformity from hematoma. Probable neuropathic in nature - Performed CSI today - improvement in pain from 8 to 1-2 - Plan for surgery Surgery Scheduling Temitope Castellon 1955 Procedure: left thigh percutaneous scar release and fat grafting OR Time Needed: 90 min [facility] or [facility]:any Equipment Request: lipografter, tumescent, 18G needle SA Requested: No Anesthesia: general Post op appointment: 2,5,8 Inpatient stay:No Block Needed: No Pre Testing Needed: Yes including pcp/hematology regarding plavix Occupational Therapy: No Cosmetic: No Jeff Victor MD History of Present Illness: This is a 66 year old female who presented with painful indent/bruise/closed wound on leg. Patient states it started off as a bruise in May 2021, and over time it started to indent and get worse. Patient states it is sometimes painful. PAST MEDICAL HISTORY: PAST MEDICAL HISTORY Diagnosis Date Abdominal pain, right lower quadrant Benign neoplasm of colon Dysuria Hyperlipemia Leiomyoma of uterus, unspecified very mild changes seen on sono Reflux Seasonal allergies Stroke (HCC) x 4 Suprapubic pain PAST SURGICAL HISTORY: PAST SURGICAL HISTORY Procedure Laterality Date BREAST BIOPSY 1997 (L) breast biopsy- Dr. Logan COLONOSCOPY FLX DX W/COLLJ SPEC WHEN PFRMD 10/17/2012 Colonoscopy ESOPHAGOGASTRODUODENOSCOPY TRANSORAL DIAGNOSTIC 10/17/2012 EGD LIG/TRNSXJ FLP TUBE ABDL/VAG APPR UNI/BI 1982 PAST SURGICAL HISTORY OF left shoulder manipulation SURGICAL ARTHROSCOPY ADAN W/CORACOACRM LIGM RLS 09/10/2013 Left shoulder arthroscopic Sub AC decompression FAMILY HISTORY: FAMILY HISTORY Problem Relation Age of Onset other (TIA [Other]) Father other (Heart problems [Other]) Father Stroke Father Heart Attack Father Alzheimer's Disease Father Parkinson s Disease Father other (ulcers in colon [Other]) Mother Thyroid Mother Dementia Mother Diabetes Maternal Grandmother other (hypoglycemia [Other]) Other Maternal Side other (Ovarian Cyst [Other]) Other Maternal Side, sisters Coronary Artery Disease No Family History Hypertension No Family History Blood Clots No Family History DVT No Family History Factor 5 Leiden No Family History Blood Disease No Family History Systemic Lupus Erythematosus No Family History Multiple Sclerosis No Family History Bipolar disorder No Family History Schizophrenia No Family History Aneurysm No Family History COPD No Family History SOCIAL HISTORY: Social History Tobacco Use Smoking status: Former Smoker Packs/day: 1.00 Types: Cigarettes Quit date: 07/27/2020 Years since quittin.4 Smokeless tobacco: Never Used Tobacco comment: d/c 07/27/2020 Vaping Use Vaping Use: Never used Substance Use Topics Alcohol use: No Drug use: No MEDICATIONS: Current Outpatient Medications Medication Sig Dispense Refill citalopram hydrobromide (CELEXA) 10 mg tablet Take 10 mg by mouth once daily. fluticasone (FLONASE) 50 mcg/actuation nasal spray Use 2 Sprays in each nostril once daily. Rinse mouth after use. 1 Each 0 BREO ELLIPTA 200-25 mcg/dose inhaler INHALE 1 INHALATION BY MOUTH EVERY DAY levothyroxine (SYNTHROID) 50 mcg tablet Take 50 mcg by mouth once daily. lisinopril (ZESTRIL, PRINIVIL) 10 mg tablet Take 10 mg by mouth once daily. buPROPion XL (WELLBUTRIN XL) 150 mg 24 hr tablet Take 150 mg by mouth every morning. atorvastatin (LIPITOR) 20 mg tablet Take 1 tablet by mouth daily at bedtime. For cholesterol. 30 tablet 11 clopidogrel (PLAVIX) 75 mg tablet Take 1 tablet by mouth once daily. 30 tablet 12 cholecalciferol, Vitamin D3, (VITAMIN D3) 50,000 unit cap capsule Take 1 capsule by mouth once eachweek. 12 capsule 3 No current facility-administered medications for this visit. ALLERGIES: ALLERGIES Allergen Reactions Fish Swelling, Shortness of Breath Morphine Mental Status Change Vicodin [Hydrocodon* Vomiting Review Of Systems: ROS PHYSICAL EXAM: There were no vitals taken for this visit. General appearance: alert, nad Left thigh- significant contour deformity, pain is 8/10 on palpation, ?tinels, total size [id number] During this patient visit I have spent approximately 30 minutes out of 45 in counseling regarding treatment options and coordinating care. The patient is seen and examined by and the following reflects his/her service. Scribed by Hattie Holbrook LPN I agree with the Chief Complaint, ROS, and Past Histories independently gathered by the clinical user support analyst supervisor and the remaining scribed note accurately describes my personal service to the patient. [facility] Miscellaneous Notes* Telephone Encounter - Dominga Whitley RN - 09/29/2021 4:47 PM EDT Patient returned call and given provider's message below and patient verbalized understanding. Alexis Whitley RN * Telephone Encounter - Kristy Jones LPN - 09/29/2021 11:48 AM EDT Left message for patient to return call for results and recommendations.Kristy Jones LPN * Telephone Encounter - Halle Sandoval PA-C - 09/29/2021 9:45 AM EDT Let patient know she was positive for influenza A. She is in the window for tamiflu and I would recommend it with her history of copd. I did send tamiflu to her pharmacy. Continue otc meds as well. Follow up with pcp if not improving in 3-5 days. documented in this encounter[facility] History of Past illness Narrative* Problem Noted Date Resolved Date Chest pain 02/16/2019 02/16/2019 Overview: Lab Results Component Value Date HSTNT <6 02/16/2019 HSTNT <6 02/15/2019 TROPT <0.010 02/16/2019 TROPT <0.010 02/16/2019 TROPT <0.010 02/01/[address] Nieves evaluated the patient He will follow the patient; he ordered an out-patient stress test Patient was pain free during hospital stay without events in telemetry Last Assessment & Plan: Presented for evaluation of chest pain x's 2 days Mid sternal, sharp, intermittent with associated right upper extremity numbness and tingling Risk factors include current smoker, history of CVA, HLD, strong family history Initial work up: HS SHANTI < 6, < 6, EKG without ischemic changes, chest xray negative Cycle troponin T x's 2 Monitor on telemetry Cardiology evaluation requested, Dr. Nieves to see patient in am Suspect there may be MSK component as the pain is reproducible vs GI component with history of GERD and hiatal hernia Suprapubic pain 10/11/2011 06/10/2013 Screening for malignant neoplasm of the cervix 0 10/11/2011 10/11/2011 documented as of this encounter (statuses as of 09/29/2021) [facility] of Past illness Narrative* Problem Noted Date Resolved Date Chest pain 02/16/2019 02/16/2019 Overview: Lab Results Component Value Date HSTNT <6 02/16/2019 HSTNT <6 02/15/2019 TROPT <0.010 02/16/2019 TROPT <0.010 02/16/2019 TROPT <0.010 02/01/[address] Nieves evaluated the patient He will follow the patient; he ordered an out-patient stress test Patient was pain free during hospital stay without events in telemetry Last Assessment & Plan: Presented for evaluation of chest pain x's 2 days Mid sternal, sharp, intermittent with associated right upper extremity numbness and tingling Risk factors include current smoker, history of CVA, HLD, strong family history Initial work up: HS SHANTI < 6, < 6, EKG without ischemic changes, chest xray negative Cycle troponin T x's 2 Monitor on telemetry Cardiology evaluation requested, Dr. Nieves to see patient in am Suspect there may be MSK component as the pain is reproducible vs GI component with history of GERD and hiatal hernia Suprapubic pain 10/11/2011 06/10/2013 Screening for malignant neoplasm of the cervix 0 10/11/2011 10/11/2011 documented as of this encounter (statuses as of 10/20/2021) [facility] of Past illness Narrative* Problem Noted Date Resolved Date Chest pain 02/16/2019 02/16/2019 Overview: Lab Results Component Value Date HSTNT <6 02/16/2019 HSTNT <6 02/15/2019 TROPT <0.010 02/16/2019 TROPT <0.010 02/16/2019 TROPT <0.010 02/01/[address] Nieves evaluated the patient He will follow the patient; he ordered an out-patient stress test Patient was pain free during hospital stay without events in telemetry Last Assessment & Plan: Presented for evaluation of chest pain x's 2 days Mid sternal, sharp, intermittent with associated right upper extremity numbness and tingling Risk factors include current smoker, history of CVA, HLD, strong family history Initial work up: HS SHANTI < 6, < 6, EKG without ischemic changes, chest xray negative Cycle troponin T x's 2 Monitor on telemetry Cardiology evaluation requested, Dr. Nieves to see patient in am Suspect there may be MSK component as the pain is reproducible vs GI component with history of GERD and hiatal hernia Suprapubic pain 10/11/2011 06/10/2013 Screening for malignant neoplasm of the cervix 0 10/11/2011 10/11/2011 documented as of this encounter (statuses as of 12/30/2021) [facility] Past illness Narrative* Problem Noted Date Resolved Date Chest pain 02/16/2019 02/16/2019 Overview: Lab Results Component Value Date HSTNT <6 02/16/2019 HSTNT <6 02/15/2019 TROPT <0.010 02/16/2019 TROPT <0.010 02/16/2019 TROPT <0.010 02/01/[address] Nieves evaluated the patient He will follow the patient; he ordered an out-patient stress test Patient was pain free during hospital stay without events in telemetry Last Assessment & Plan: Presented for evaluation of chest pain x's 2 days Mid sternal, sharp, intermittent with associated right upper extremity numbness and tingling Risk factors include current smoker, history of CVA, HLD, strong family history Initial work up: HS SHANTI < 6, < 6, EKG without ischemic changes, chest xray negative Cycle troponin T x's 2 Monitor on telemetry Cardiology evaluation requested, Dr. Nieves to see patient in am Suspect there may be MSK component as the pain is reproducible vs GI component with history of GERD and hiatal hernia Suprapubic pain 10/11/2011 06/10/2013 Screening for malignant neoplasm of the cervix 0 10/11/2011 10/11/2011 documented as of this encounter (statuses as of 01/03/2022) [facility] of Past illness Narrative* Problem Noted Date Resolved Date Chest pain 02/16/2019 02/16/2019 Overview: Lab Results Component Value Date HSTNT <6 02/16/2019 HSTNT <6 02/15/2019 TROPT <0.010 02/16/2019 TROPT <0.010 02/16/2019 TROPT <0.010 02/01/[address] Nieves evaluated the patient He will follow the patient; he ordered an out-patient stress test Patient was pain free during hospital stay without events in telemetry Last Assessment & Plan: Presented for evaluation of chest pain x's 2 days Mid sternal, sharp, intermittent with associated right upper extremity numbness and tingling Risk factors include current smoker, history of CVA, HLD, strong family history Initial work up: HS SHANTI < 6, < 6, EKG without ischemic changes, chest xray negative Cycle troponin T x's 2 Monitor on telemetry Cardiology evaluation requested, Dr. Nieves to see patient in am Suspect there may be MSK component as the pain is reproducible vs GI component with history of GERD and hiatal hernia Suprapubic pain 10/11/2011 06/10/2013 Screening for malignant neoplasm of the cervix 0 10/11/2011 10/11/2011 documented as of this encounter (statuses as of 01/05/2022) [facility] Narrative* Problem Noted Date Resolved Date Chest pain 02/16/2019 02/16/2019 Overview: Lab Results Component Value Date HSTNT <6 02/16/2019 HSTNT <6 02/15/2019 TROPT <0.010 02/16/2019 TROPT <0.010 02/16/2019 TROPT <0.010 02/01/[address] Nieves evaluated the patient He will follow the patient; he ordered an out-patient stress test Patient was pain free during hospital stay without events in telemetry Last Assessment & Plan: Presented for evaluation of chest pain x's 2 days Mid sternal, sharp, intermittent with associated right upper extremity numbness and tingling Risk factors include current smoker, history of CVA, HLD, strong family history Initial work up: HS SHANTI < 6, < 6, EKG without ischemic changes, chest xray negative Cycle troponin T x's 2 Monitor on telemetry Cardiology evaluation requested, Dr. Nieves to see patient in am Suspect there may be MSK component as the pain is reproducible vs GI component with history of GERD and hiatal hernia Suprapubic pain 10/11/2011 06/10/2013 Screening for malignant neoplasm of the cervix 0 10/11/2011 10/11/2011 documented as of this encounter (statuses as of 02/03/2022) [facility] illness Narrative* Problem Noted Date Resolved Date Chest pain 02/16/2019 02/16/2019 Overview: Lab Results Component Value Date HSTNT <6 02/16/2019 HSTNT <6 02/15/2019 TROPT <0.010 02/16/2019 TROPT <0.010 02/16/2019 TROPT <0.010 02/01/[address] Nieves evaluated the patient He will follow the patient; he ordered an out-patient stress test Patient was pain free during hospital stay without events in telemetry Last Assessment & Plan: Presented for evaluation of chest pain x's 2 days Mid sternal, sharp, intermittent with associated right upper extremity numbness and tingling Risk factors include current smoker, history of CVA, HLD, strong family history Initial work up: HS SHANTI < 6, < 6, EKG without ischemic changes, chest xray negative Cycle troponin T x's 2 Monitor on telemetry Cardiology evaluation requested, Dr. Nieves to see patient in am Suspect there may be MSK component as the pain is reproducible vs GI component with history of GERD and hiatal hernia Suprapubic pain 10/11/2011 06/10/2013 Screening for malignant neoplasm of the cervix 0 10/11/2011 10/11/2011 documented as of this encounter (statuses as of 03/24/2022) [facility] illness Narrative* Problem Noted Date Resolved Date Chest pain 02/16/2019 02/16/2019 Overview: Lab Results Component Value Date HSTNT <6 02/16/2019 HSTNT <6 02/15/2019 TROPT <0.010 02/16/2019 TROPT <0.010 02/16/2019 TROPT <0.010 02/01/[address] Nieves evaluated the patient He will follow the patient; he ordered an out-patient stress test Patient was pain free during hospital stay without events in telemetry Last Assessment & Plan: Presented for evaluation of chest pain x's 2 days Mid sternal, sharp, intermittent with associated right upper extremity numbness and tingling Risk factors include current smoker, history of CVA, HLD, strong family history Initial work up: HS SHANTI < 6, < 6, EKG without ischemic changes, chest xray negative Cycle troponin T x's 2 Monitor on telemetry Cardiology evaluation requested, Dr. Nieves to see patient in am Suspect there may be MSK component as the pain is reproducible vs GI component with history of GERD and hiatal hernia Suprapubic pain 10/11/2011 06/10/2013 Screening for malignant neoplasm of the cervix 0 10/11/2011 10/11/2011 documented as of this encounter (statuses as of 05/05/2022) [facility] Narrative* Problem Noted Date Resolved Date Chest pain 02/16/2019 02/16/2019 Overview: Lab Results Component Value Date HSTNT <6 02/16/2019 HSTNT <6 02/15/2019 TROPT <0.010 02/16/2019 TROPT <0.010 02/16/2019 TROPT <0.010 02/01/[address] Nieves evaluated the patient He will follow the patient; he ordered an out-patient stress test Patient was pain free during hospital stay without events in telemetry Last Assessment & Plan: Presented for evaluation of chest pain x's 2 days Mid sternal, sharp, intermittent with associated right upper extremity numbness and tingling Risk factors include current smoker, history of CVA, HLD, strong family history Initial work up: HS SHANTI < 6, < 6, EKG without ischemic changes, chest xray negative Cycle troponin T x's 2 Monitor on telemetry Cardiology evaluation requested, Dr. Nieves to see patient in am Suspect there may be MSK component as the pain is reproducible vs GI component with history of GERD and hiatal hernia Suprapubic pain 10/11/2011 06/10/2013 Screening for malignant neoplasm of the cervix 0 10/11/2011 10/11/2011 documented as of this encounter (statuses as of 11/02/2022) [facility] Narrative* Problem Noted Date Resolved Date Chest pain 02/16/2019 02/16/2019 Overview: Lab Results Component Value Date HSTNT <6 02/16/2019 HSTNT <6 02/15/2019 TROPT <0.010 02/16/2019 TROPT <0.010 02/16/2019 TROPT <0.010 02/01/[address] Nieves evaluated the patient He will follow the patient; he ordered an out-patient stress test Patient was pain free during hospital stay without events in telemetry Last Assessment & Plan: Presented for evaluation of chest pain x's 2 days Mid sternal, sharp, intermittent with associated right upper extremity numbness and tingling Risk factors include current smoker, history of CVA, HLD, strong family history Initial work up: HS SHANTI < 6, < 6, EKG without ischemic changes, chest xray negative Cycle troponin T x's 2 Monitor on telemetry Cardiology evaluation requested, Dr. Nieves to see patient in am Suspect there may be MSK component as the pain is reproducible vs GI component with history of GERD and hiatal hernia Suprapubic pain 10/11/2011 06/10/2013 Screening for malignant neoplasm of the cervix 0 10/11/2011 10/11/2011 documented as of this encounter (statuses as of 11/08/2022) [facility] Narrative* Problem Noted Date Resolved Date Chest pain 02/16/2019 02/16/2019 Overview: Lab Results Component Value Date HSTNT <6 02/16/2019 HSTNT <6 02/15/2019 TROPT <0.010 02/16/2019 TROPT <0.010 02/16/2019 TROPT <0.010 02/01/[address] Nieves evaluated the patient He will follow the patient; he ordered an out-patient stress test Patient was pain free during hospital stay without events in telemetry Last Assessment & Plan: Presented for evaluation of chest pain x's 2 days Mid sternal, sharp, intermittent with associated right upper extremity numbness and tingling Risk factors include current smoker, history of CVA, HLD, strong family history Initial work up: HS SHANTI < 6, < 6, EKG without ischemic changes, chest xray negative Cycle troponin T x's 2 Monitor on telemetry Cardiology evaluation requested, Dr. Nieves to see patient in am Suspect there may be MSK component as the pain is reproducible vs GI component with history of GERD and hiatal hernia Suprapubic pain 10/11/2011 06/10/2013 Screening for malignant neoplasm of the cervix 0 10/11/2011 10/11/2011 documented as of this encounter (statuses as of 11/14/2022) [facility] Narrative* Problem Noted Date Diagnosed Date Resolved Date Chest pain 02/16/2019 02/16/2019 Overview: Lab Results Component Value Date HSTNT <6 02/16/2019 HSTNT <6 02/15/2019 TROPT <0.010 02/16/2019 TROPT <0.010 02/16/2019 TROPT <0.010 02/01/[address] Nieves evaluated the patient He will follow the patient; he ordered an out-patient stress test Patient was pain free during hospital stay without events in telemetry Last Assessment & Plan: Presented for evaluation of chest pain x's 2 days Mid sternal, sharp, intermittent with associated right upper extremity numbness and tingling Risk factors include current smoker, history of CVA, HLD, strong family history Initial work up: HS SHANTI < 6, < 6, EKG without ischemic changes, chest xray negative Cycle troponin T x's 2 Monitor on telemetry Cardiology evaluation requested, Dr. Nieves to see patient in am Suspect there may be MSK component as the pain is reproducible vs GI component with history of GERD and hiatal hernia Suprapubic pain 10/11/2011 06/10/2013 Screening for malignant neop lasm of the cervix 10/11/2011 10/11/2011 documented as of this encounter (statuses as of 12/23/2022) [facility] Narrative* Problem Noted Date Diagnosed Date Resolved Date Chest pain 02/16/2019 02/16/2019 Overview: Lab Results Component Value Date HSTNT <6 02/16/2019 HSTNT <6 02/15/2019 TROPT <0.010 02/16/2019 TROPT <0.010 02/16/2019 TROPT <0.010 02/01/[address] Nieves evaluated the patient He will follow the patient; he ordered an out-patient stress test Patient was pain free during hospital stay without events in telemetry Last Assessment & Plan: Presented for evaluation of chest pain x's 2 days Mid sternal, sharp, intermittent with associated right upper extremity numbness and tingling Risk factors include current smoker, history of CVA, HLD, strong family history Initial work up: HS SHANTI < 6, < 6, EKG without ischemic changes, chest xray negative Cycle troponin T x's 2 Monitor on telemetry Cardiology evaluation requested, Dr. Nieves to see patient in am Suspect there may be MSK component as the pain is reproducible vs GI component with history of GERD and hiatal hernia Suprapubic pain 10/11/2011 06/10/2013 Screening for malignant neop lasm of the cervix 10/11/2011 10/11/2011 documented as of this encounter (statuses as of 01/03/2023) [facility] Narrative* Problem Noted Date Diagnosed Date Resolved Date Chest pain 02/16/2019 02/16/2019 Overview: Lab Results Component Value Date HSTNT <6 02/16/2019 HSTNT <6 02/15/2019 TROPT <0.010 02/16/2019 TROPT <0.010 02/16/2019 TROPT <0.010 02/01/[address] Nieves evaluated the patient He will follow the patient; he ordered an out-patient stress test Patient was pain free during hospital stay without events in telemetry Last Assessment & Plan: Presented for evaluation of chest pain x's 2 days Mid sternal, sharp, intermittent with associated right upper extremity numbness and tingling Risk factors include current smoker, history of CVA, HLD, strong family history Initial work up: HS SHANTI < 6, < 6, EKG without ischemic changes, chest xray negative Cycle troponin T x's 2 Monitor on telemetry Cardiology evaluation requested, Dr. Nieves to see patient in am Suspect there may be MSK component as the pain is reproducible vs GI component with history of GERD and hiatal hernia Suprapubic pain 10/11/2011 06/10/2013 Screening for malignant neop lasm of the cervix 10/11/2011 10/11/2011 documented as of this encounter (statuses as of 01/07/2023) [facility] Narrative* Problem Noted Date Diagnosed Date Resolved Date Chest pain 02/16/2019 02/16/2019 Overview: Lab Results Component Value Date HSTNT <6 02/16/2019 HSTNT <6 02/15/2019 TROPT <0.010 02/16/2019 TROPT <0.010 02/16/2019 TROPT <0.010 02/01/[address] Nieves evaluated the patient He will follow the patient; he ordered an out-patient stress test Patient was pain free during hospital stay without events in telemetry Last Assessment & Plan: Presented for evaluation of chest pain x's 2 days Mid sternal, sharp, intermittent with associated right upper extremity numbness and tingling Risk factors include current smoker, history of CVA, HLD, strong family history Initial work up: HS SHANTI < 6, < 6, EKG without ischemic changes, chest xray negative Cycle troponin T x's 2 Monitor on telemetry Cardiology evaluation requested, Dr. Nieves to see patient in am Suspect there may be MSK component as the pain is reproducible vs GI component with history of GERD and hiatal hernia Suprapubic pain 10/11/2011 06/10/2013 Screening for malignant neop lasm of the cervix 10/11/2011 10/11/2011 documented as of this encounter (statuses as of 01/31/2023) [facility] Narrative* Problem Noted Date Diagnosed Date Resolved Date Chest pain 02/16/2019 02/16/2019 Overview: Lab Results Component Value Date HSTNT <6 02/16/2019 HSTNT <6 02/15/2019 TROPT <0.010 02/16/2019 TROPT <0.010 02/16/2019 TROPT <0.010 02/01/[address] Nieves evaluated the patient He will follow the patient; he ordered an out-patient stress test Patient was pain free during hospital stay without events in telemetry Last Assessment & Plan: Presented for evaluation of chest pain x's 2 days Mid sternal, sharp, intermittent with associated right upper extremity numbness and tingling Risk factors include current smoker, history of CVA, HLD, strong family history Initial work up: HS SHANTI < 6, < 6, EKG without ischemic changes, chest xray negative Cycle troponin T x's 2 Monitor on telemetry Cardiology evaluation requested, Dr. Nieves to see patient in am Suspect there may be MSK component as the pain is reproducible vs GI component with history of GERD and hiatal hernia Suprapubic pain 10/11/2011 06/10/2013 Screening for malignant neop lasm of the cervix 10/11/2011 10/11/2011 documented as of this encounter (statuses as of 02/01/2023) [facility] Narrative* Problem Noted Date Diagnosed Date Resolved Date Chest pain 02/16/2019 02/16/2019 Overview: Lab Results Component Value Date HSTNT <6 02/16/2019 HSTNT <6 02/15/2019 TROPT <0.010 02/16/2019 TROPT <0.010 02/16/2019 TROPT <0.010 02/01/[address] Nieves evaluated the patient He will follow the patient; he ordered an out-patient stress test Patient was pain free during hospital stay without events in telemetry Last Assessment & Plan: Presented for evaluation of chest pain x's 2 days Mid sternal, sharp, intermittent with associated right upper extremity numbness and tingling Risk factors include current smoker, history of CVA, HLD, strong family history Initial work up: HS SHANTI < 6, < 6, EKG without ischemic changes, chest xray negative Cycle troponin T x's 2 Monitor on telemetry Cardiology evaluation requested, Dr. Nieves to see patient in am Suspect there may be MSK component as the pain is reproducible vs GI component with history of GERD and hiatal hernia Suprapubic pain 10/11/2011 06/10/2013 Screening for malignant neop lasm of the cervix 10/11/2011 10/11/2011 documented as of this encounter (statuses as of 02/07/2023) [facility]2019 History of Past illness Narrative* Problem Noted Date Diagnosed Date Resolved Date Chest pain 02/16/2019 02/16/2019 Overview: Lab Results Component Value Date HSTNT <6 02/16/2019 HSTNT <6 02/15/2019 TROPT <0.010 02/16/2019 TROPT <0.010 02/16/2019 TROPT <0.010 02/01/[address] Nieves evaluated the patient He will follow the patient; he ordered an out-patient stress test Patient was pain free during hospital stay without events in telemetry Last Assessment & Plan: Presented for evaluation of chest pain x's 2 days Mid sternal, sharp, intermittent with associated right upper extremity numbness and tingling Risk factors include current smoker, history of CVA, HLD, strong family history Initial work up: HS SHANTI < 6, < 6, EKG without ischemic changes, chest xray negative Cycle troponin T x's 2 Monitor on telemetry Cardiology evaluation requested, Dr. Nieves to see patient in am Suspect there may be MSK component as the pain is reproducible vs GI component with history of GERD and hiatal hernia Suprapubic pain 10/11/2011 06/10/2013 Screening for malignant neop lasm of the cervix 10/11/2011 10/11/2011 documented as of this encounter (statuses as of 02/15/2023) [facility]2019 History of Past illness Narrative* Problem Noted Date Diagnosed Date Resolved Date Chest pain 02/16/2019 02/16/2019 Overview: Lab Results Component Value Date HSTNT <6 02/16/2019 HSTNT <6 02/15/2019 TROPT <0.010 02/16/2019 TROPT <0.010 02/16/2019 TROPT <0.010 02/01/[address] Nieves evaluated the patient He will follow the patient; he ordered an out-patient stress test Patient was pain free during hospital stay without events in telemetry Last Assessment & Plan: Presented for evaluation of chest pain x's 2 days Mid sternal, sharp, intermittent with associated right upper extremity numbness and tingling Risk factors include current smoker, history of CVA, HLD, strong family history Initial work up: HS SHANTI < 6, < 6, EKG without ischemic changes, chest xray negative Cycle troponin T x's 2 Monitor on telemetry Cardiology evaluation requested, Dr. Nieves to see patient in am Suspect there may be MSK component as the pain is reproducible vs GI component with history of GERD and hiatal hernia Suprapubic pain 10/11/2011 06/10/2013 Screening for malignant neop lasm of the cervix 10/11/2011 10/11/2011 documented as of this encounter (statuses as of 02/25/2023) [facility]2019 History of Past illness Narrative* Problem Noted Date Diagnosed Date Resolved Date Chest pain 02/16/2019 02/16/2019 Overview: Lab Results Component Value Date HSTNT <6 02/16/2019 HSTNT <6 02/15/2019 TROPT <0.010 02/16/2019 TROPT <0.010 02/16/2019 TROPT <0.010 02/01/[address] Nieves evaluated the patient He will follow the patient; he ordered an out-patient stress test Patient was pain free during hospital stay without events in telemetry Last Assessment & Plan: Presented for evaluation of chest pain x's 2 days Mid sternal, sharp, intermittent with associated right upper extremity numbness and tingling Risk factors include current smoker, history of CVA, HLD, strong family history Initial work up: HS SHANTI < 6, < 6, EKG without ischemic changes, chest xray negative Cycle troponin T x's 2 Monitor on telemetry Cardiology evaluation requested, Dr. Nieves to see patient in am Suspect there may be MSK component as the pain is reproducible vs GI component with history of GERD and hiatal hernia Suprapubic pain 10/11/2011 06/10/2013 Screening for malignant neop lasm of the cervix 10/11/2011 10/11/2011 documented as of this encounter (statuses as of 03/03/2023) [facility] History of Past illness Narrative* Problem Noted Date Diagnosed Date Resolved Date Chest pain 02/16/2019 02/16/2019 Overview: Lab Results Component Value Date HSTNT <6 02/16/2019 HSTNT <6 02/15/2019 TROPT <0.010 02/16/2019 TROPT <0.010 02/16/2019 TROPT <0.010 02/01/[address] Nieves evaluated the patient He will follow the patient; he ordered an out-patient stress test Patient was pain free during hospital stay without events in telemetry Last Assessment & Plan: Presented for evaluation of chest pain x's 2 days Mid sternal, sharp, intermittent with associated right upper extremity numbness and tingling Risk factors include current smoker, history of CVA, HLD, strong family history Initial work up: HS SHANTI < 6, < 6, EKG without ischemic changes, chest xray negative Cycle troponin T x's 2 Monitor on telemetry Cardiology evaluation requested, Dr. Nieves to see patient in am Suspect there may be MSK component as the pain is reproducible vs GI component with history of GERD and hiatal hernia Suprapubic pain 10/11/2011 06/10/2013 Screening for malignant neop lasm of the cervix 10/11/2011 10/11/2011 documented as of this encounter (statuses as of 03/03/2023) [facility] History of Past illness Narrative* Problem Noted Date Diagnosed Date Resolved Date Chest pain 02/16/2019 02/16/2019 Overview: Lab Results Component Value Date HSTNT <6 02/16/2019 HSTNT <6 02/15/2019 TROPT <0.010 02/16/2019 TROPT <0.010 02/16/2019 TROPT <0.010 02/01/[address] Nieves evaluated the patient He will follow the patient; he ordered an out-patient stress test Patient was pain free during hospital stay without events in telemetry Last Assessment & Plan: Presented for evaluation of chest pain x's 2 days Mid sternal, sharp, intermittent with associated right upper extremity numbness and tingling Risk factors include current smoker, history of CVA, HLD, strong family history Initial work up: HS SHANTI < 6, < 6, EKG without ischemic changes, chest xray negative Cycle troponin T x's 2 Monitor on telemetry Cardiology evaluation requested, Dr. Nieves to see patient in am Suspect there may be MSK component as the pain is reproducible vs GI component with history of GERD and hiatal hernia Suprapubic pain 10/11/2011 06/10/2013 Screening for malignant neop lasm of the cervix 10/11/2011 10/11/2011 documented as of this encounter (statuses as of 03/04/2023) [facility] History of Past illness Narrative* Problem Noted Date Diagnosed Date Resolved Date Chest pain 02/16/2019 02/16/2019 Overview: Lab Results Component Value Date HSTNT <6 02/16/2019 HSTNT <6 02/15/2019 TROPT <0.010 02/16/2019 TROPT <0.010 02/16/2019 TROPT <0.010 02/01/[address] Nieves evaluated the patient He will follow the patient; he ordered an out-patient stress test Patient was pain free during hospital stay without events in telemetry Last Assessment & Plan: Presented for evaluation of chest pain x's 2 days Mid sternal, sharp, intermittent with associated right upper extremity numbness and tingling Risk factors include current smoker, history of CVA, HLD, strong family history Initial work up: HS SHANTI < 6, < 6, EKG without ischemic changes, chest xray negative Cycle troponin T x's 2 Monitor on telemetry Cardiology evaluation requested, Dr. Nieves to see patient in am Suspect there may be MSK component as the pain is reproducible vs GI component with history of GERD and hiatal hernia Suprapubic pain 10/11/2011 06/10/2013 Screening for malignant neop lasm of the cervix 10/11/2011 10/11/2011 documented as of this encounter (statuses as of 03/08/2023) [facility] History of Past illness Narrative* Problem Noted Date Diagnosed Date Resolved Date Chest pain 02/16/2019 02/16/2019 Overview: Lab Results Component Value Date HSTNT <6 02/16/2019 HSTNT <6 02/15/2019 TROPT <0.010 02/16/2019 TROPT <0.010 02/16/2019 TROPT <0.010 02/01/[address] Nieves evaluated the patient He will follow the patient; he ordered an out-patient stress test Patient was pain free during hospital stay without events in telemetry Last Assessment & Plan: Presented for evaluation of chest pain x's 2 days Mid sternal, sharp, intermittent with associated right upper extremity numbness and tingling Risk factors include current smoker, history of CVA, HLD, strong family history Initial work up: HS SHANTI < 6, < 6, EKG without ischemic changes, chest xray negative Cycle troponin T x's 2 Monitor on telemetry Cardiology evaluation requested, Dr. Nieves to see patient in am Suspect there may be MSK component as the pain is reproducible vs GI component with history of GERD and hiatal hernia Suprapubic pain 10/11/2011 06/10/2013 Screening for malignant neop lasm of the cervix 10/11/2011 10/11/2011 documented as of this encounter (statuses as of 03/15/2023) [facility] History of Past illness Narrative* Problem Noted Date Diagnosed Date Resolved Date Chest pain 02/16/2019 02/16/2019 Overview: Lab Results Component Value Date HSTNT <6 02/16/2019 HSTNT <6 02/15/2019 TROPT <0.010 02/16/2019 TROPT <0.010 02/16/2019 TROPT <0.010 02/01/[address] Nieves evaluated the patient He will follow the patient; he ordered an out-patient stress test Patient was pain free during hospital stay without events in telemetry Last Assessment & Plan: Presented for evaluation of chest pain x's 2 days Mid sternal, sharp, intermittent with associated right upper extremity numbness and tingling Risk factors include current smoker, history of CVA, HLD, strong family history Initial work up: HS SHANTI < 6, < 6, EKG without ischemic changes, chest xray negative Cycle troponin T x's 2 Monitor on telemetry Cardiology evaluation requested, Dr. Nieves to see patient in am Suspect there may be MSK component as the pain is reproducible vs GI component with history of GERD and hiatal hernia Suprapubic pain 10/11/2011 06/10/2013 Screening for malignant neop lasm of the cervix 10/11/2011 10/11/2011 documented as of this encounter (statuses as of 03/15/2023) [facility] History of Past illness Narrative* Problem Noted Date Diagnosed Date Resolved Date Chest pain 02/16/2019 02/16/2019 Overview: Lab Results Component Value Date HSTNT <6 02/16/2019 HSTNT <6 02/15/2019 TROPT <0.010 02/16/2019 TROPT <0.010 02/16/2019 TROPT <0.010 02/01/[address] Nieves evaluated the patient He will follow the patient; he ordered an out-patient stress test Patient was pain free during hospital stay without events in telemetry Last Assessment & Plan: Presented for evaluation of chest pain x's 2 days Mid sternal, sharp, intermittent with associated right upper extremity numbness and tingling Risk factors include current smoker, history of CVA, HLD, strong family history Initial work up: HS SHANTI < 6, < 6, EKG without ischemic changes, chest xray negative Cycle troponin T x's 2 Monitor on telemetry Cardiology evaluation requested, Dr. Nieves to see patient in am Suspect there may be MSK component as the pain is reproducible vs GI component with history of GERD and hiatal hernia Suprapubic pain 10/11/2011 06/10/2013 Screening for malignant neop lasm of the cervix 10/11/2011 10/11/2011 documented as of this encounter (statuses as of 03/16/2023) [facility] History of Past illness Narrative* Problem Noted Date Diagnosed Date Resolved Date Chest pain 02/16/2019 02/16/2019 Overview: Lab Results Component Value Date HSTNT <6 02/16/2019 HSTNT <6 02/15/2019 TROPT <0.010 02/16/2019 TROPT <0.010 02/16/2019 TROPT <0.010 02/01/[address] Nieves evaluated the patient He will follow the patient; he ordered an out-patient stress test Patient was pain free during hospital stay without events in telemetry Last Assessment & Plan: Presented for evaluation of chest pain x's 2 days Mid sternal, sharp, intermittent with associated right upper extremity numbness and tingling Risk factors include current smoker, history of CVA, HLD, strong family history Initial work up: HS SHANTI < 6, < 6, EKG without ischemic changes, chest xray negative Cycle troponin T x's 2 Monitor on telemetry Cardiology evaluation requested, Dr. Nieves to see patient in am Suspect there may be MSK component as the pain is reproducible vs GI component with history of GERD and hiatal hernia Suprapubic pain 10/11/2011 06/10/2013 Screening for malignant neop lasm of the cervix 10/11/2011 10/11/2011 documented as of this encounter (statuses as of 03/22/2023) [facility] History of Past illness Narrative* Problem Noted Date Diagnosed Date Resolved Date Chest pain 02/16/2019 02/16/2019 Overview: Lab Results Component Value Date HSTNT <6 02/16/2019 HSTNT <6 02/15/2019 TROPT <0.010 02/16/2019 TROPT <0.010 02/16/2019 TROPT <0.010 02/01/[address] Nieves evaluated the patient He will follow the patient; he ordered an out-patient stress test Patient was pain free during hospital stay without events in telemetry Last Assessment & Plan: Presented for evaluation of chest pain x's 2 days Mid sternal, sharp, intermittent with associated right upper extremity numbness and tingling Risk factors include current smoker, history of CVA, HLD, strong family history Initial work up: HS SHANTI < 6, < 6, EKG without ischemic changes, chest xray negative Cycle troponin T x's 2 Monitor on telemetry Cardiology evaluation requested, Dr. Nieves to see patient in am Suspect there may be MSK component as the pain is reproducible vs GI component with history of GERD and hiatal hernia Suprapubic pain 10/11/2011 06/10/2013 Screening for malignant neop lasm of the cervix 10/11/2011 10/11/2011 documented as of this encounter (statuses as of 04/02/2023) [facility] History of Past illness Narrative* Problem Noted Date Diagnosed Date Resolved Date Chest pain 02/16/2019 02/16/2019 Overview: Lab Results Component Value Date HSTNT <6 02/16/2019 HSTNT <6 02/15/2019 TROPT <0.010 02/16/2019 TROPT <0.010 02/16/2019 TROPT <0.010 02/01/[address] Nieves evaluated the patient He will follow the patient; he ordered an out-patient stress test Patient was pain free during hospital stay without events in telemetry Last Assessment & Plan: Presented for evaluation of chest pain x's 2 days Mid sternal, sharp, intermittent with associated right upper extremity numbness and tingling Risk factors include current smoker, history of CVA, HLD, strong family history Initial work up: HS SHANTI < 6, < 6, EKG without ischemic changes, chest xray negative Cycle troponin T x's 2 Monitor on telemetry Cardiology evaluation requested, Dr. Nieves to see patient in am Suspect there may be MSK component as the pain is reproducible vs GI component with history of GERD and hiatal hernia Suprapubic pain 10/11/2011 06/10/2013 Screening for malignant neop lasm of the cervix 10/11/2011 10/11/2011 documented as of this encounter (statuses as of 04/02/2023) [facility] History of Past illness Narrative* Problem Noted Date Diagnosed Date Resolved Date Chest pain 02/16/2019 02/16/2019 Overview: Lab Results Component Value Date HSTNT <6 02/16/2019 HSTNT <6 02/15/2019 TROPT <0.010 02/16/2019 TROPT <0.010 02/16/2019 TROPT <0.010 02/01/[address] Nieves evaluated the patient He will follow the patient; he ordered an out-patient stress test Patient was pain free during hospital stay without events in telemetry Last Assessment & Plan: Presented for evaluation of chest pain x's 2 days Mid sternal, sharp, intermittent with associated right upper extremity numbness and tingling Risk factors include current smoker, history of CVA, HLD, strong family history Initial work up: HS SHANTI < 6, < 6, EKG without ischemic changes, chest xray negative Cycle troponin T x's 2 Monitor on telemetry Cardiology evaluation requested, Dr. Nieves to see patient in am Suspect there may be MSK component as the pain is reproducible vs GI component with history of GERD and hiatal hernia Suprapubic pain 10/11/2011 06/10/2013 Screening for malignant neop lasm of the cervix 10/11/2011 10/11/2011 documented as of this encounter (statuses as of 04/02/2023) [facility] History of Past illness Narrative* Problem Noted Date Diagnosed Date Resolved Date Chest pain 02/16/2019 02/16/2019 Overview: Lab Results Component Value Date HSTNT <6 02/16/2019 HSTNT <6 02/15/2019 TROPT <0.010 02/16/2019 TROPT <0.010 02/16/2019 TROPT <0.010 02/01/[address] Nieves evaluated the patient He will follow the patient; he ordered an out-patient stress test Patient was pain free during hospital stay without events in telemetry Last Assessment & Plan: Presented for evaluation of chest pain x's 2 days Mid sternal, sharp, intermittent with associated right upper extremity numbness and tingling Risk factors include current smoker, history of CVA, HLD, strong family history Initial work up: HS SHANTI < 6, < 6, EKG without ischemic changes, chest xray negative Cycle troponin T x's 2 Monitor on telemetry Cardiology evaluation requested, Dr. Nieves to see patient in am Suspect there may be MSK component as the pain is reproducible vs GI component with history of GERD and hiatal hernia Suprapubic pain 10/11/2011 06/10/2013 Screening for malignant neop lasm of the cervix 10/11/2011 10/11/2011 documented as of this encounter (statuses as of 04/02/2023) [facility] History of Past illness Narrative* Problem Noted Date Diagnosed Date Resolved Date Chest pain 02/16/2019 02/16/2019 Overview: Lab Results Component Value Date HSTNT <6 02/16/2019 HSTNT <6 02/15/2019 TROPT <0.010 02/16/2019 TROPT <0.010 02/16/2019 TROPT <0.010 02/01/[address] Nieves evaluated the patient He will follow the patient; he ordered an out-patient stress test Patient was pain free during hospital stay without events in telemetry Last Assessment & Plan: Presented for evaluation of chest pain x's 2 days Mid sternal, sharp, intermittent with associated right upper extremity numbness and tingling Risk factors include current smoker, history of CVA, HLD, strong family history Initial work up: HS SHANTI < 6, < 6, EKG without ischemic changes, chest xray negative Cycle troponin T x's 2 Monitor on telemetry Cardiology evaluation requested, Dr. Nieves to see patient in am Suspect there may be MSK component as the pain is reproducible vs GI component with history of GERD and hiatal hernia Suprapubic pain 10/11/2011 06/10/2013 Screening for malignant neop lasm of the cervix 10/11/2011 10/11/2011 documented as of this encounter (statuses as of 04/02/2023) [facility] History of Past illness Narrative* Problem Noted Date Diagnosed Date Resolved Date Chest pain 02/16/2019 02/16/2019 Overview: Lab Results Component Value Date HSTNT <6 02/16/2019 HSTNT <6 02/15/2019 TROPT <0.010 02/16/2019 TROPT <0.010 02/16/2019 TROPT <0.010 02/01/[address] Nieves evaluated the patient He will follow the patient; he ordered an out-patient stress test Patient was pain free during hospital stay without events in telemetry Last Assessment & Plan: Presented for evaluation of chest pain x's 2 days Mid sternal, sharp, intermittent with associated right upper extremity numbness and tingling Risk factors include current smoker, history of CVA, HLD, strong family history Initial work up: HS SHANTI < 6, < 6, EKG without ischemic changes, chest xray negative Cycle troponin T x's 2 Monitor on telemetry Cardiology evaluation requested, Dr. Nieves to see patient in am Suspect there may be MSK component as the pain is reproducible vs GI component with history of GERD and hiatal hernia Suprapubic pain 10/11/2011 06/10/2013 Screening for malignant neop lasm of the cervix 10/11/2011 10/11/2011 documented as of this encounter (statuses as of 05/13/2023) [facility] History of Past illness Narrative* Problem Noted Date Diagnosed Date Resolved Date Chest pain 02/16/2019 02/16/2019 Overview: Lab Results Component Value Date HSTNT <6 02/16/2019 HSTNT <6 02/15/2019 TROPT <0.010 02/16/2019 TROPT <0.010 02/16/2019 TROPT <0.010 02/01/[address] Nieves evaluated the patient He will follow the patient; he ordered an out-patient stress test Patient was pain free during hospital stay without events in telemetry Last Assessment & Plan: Presented for evaluation of chest pain x's 2 days Mid sternal, sharp, intermittent with associated right upper extremity numbness and tingling Risk factors include current smoker, history of CVA, HLD, strong family history Initial work up: HS SHANTI < 6, < 6, EKG without ischemic changes, chest xray negative Cycle troponin T x's 2 Monitor on telemetry Cardiology evaluation requested, Dr. Nieves to see patient in am Suspect there may be MSK component as the pain is reproducible vs GI component with history of GERD and hiatal hernia Suprapubic pain 10/11/2011 06/10/2013 Screening for malignant neop lasm of the cervix 10/11/2011 10/11/2011 documented as of this encounter (statuses as of 08/01/2023) [facility] History of Past illness Narrative* Problem Noted Date Diagnosed Date Resolved Date Chest pain 02/16/2019 02/16/2019 Overview: Lab Results Component Value Date HSTNT <6 02/16/2019 HSTNT <6 02/15/2019 TROPT <0.010 02/16/2019 TROPT <0.010 02/16/2019 TROPT <0.010 02/01/[address] Nieves evaluated the patient He will follow the patient; he ordered an out-patient stress test Patient was pain free during hospital stay without events in telemetry Last Assessment & Plan: Presented for evaluation of chest pain x's 2 days Mid sternal, sharp, intermittent with associated right upper extremity numbness and tingling Risk factors include current smoker, history of CVA, HLD, strong family history Initial work up: HS SHANTI < 6, < 6, EKG without ischemic changes, chest xray negative Cycle troponin T x's 2 Monitor on telemetry Cardiology evaluation requested, Dr. Nieves to see patient in am Suspect there may be MSK component as the pain is reproducible vs GI component with history of GERD and hiatal hernia Suprapubic pain 10/11/2011 06/10/2013 Screening for malignant neop lasm of the cervix 10/11/2011 10/11/2011 documented as of this encounter (statuses as of 08/02/2023) [facility] History of Past illness Narrative* Problem Noted Date Diagnosed Date Resolved Date Chest pain 02/16/2019 02/16/2019 Overview: Lab Results Component Value Date HSTNT <6 02/16/2019 HSTNT <6 02/15/2019 TROPT <0.010 02/16/2019 TROPT <0.010 02/16/2019 TROPT <0.010 02/01/[address] Nieves evaluated the patient He will follow the patient; he ordered an out-patient stress test Patient was pain free during hospital stay without events in telemetry Last Assessment & Plan: Presented for evaluation of chest pain x's 2 days Mid sternal, sharp, intermittent with associated right upper extremity numbness and tingling Risk factors include current smoker, history of CVA, HLD, strong family history Initial work up: HS SHANTI < 6, < 6, EKG without ischemic changes, chest xray negative Cycle troponin T x's 2 Monitor on telemetry Cardiology evaluation requested, Dr. Nieves to see patient in am Suspect there may be MSK component as the pain is reproducible vs GI component with history of GERD and hiatal hernia Suprapubic pain 10/11/2011 06/10/2013 Screening for malignant neop lasm of the cervix 10/11/2011 10/11/2011 documented as of this encounter (statuses as of 08/09/2023) [facility] History of Past illness Narrative* Problem Noted Date Diagnosed Date Resolved Date Chest pain 02/16/2019 02/16/2019 Overview: Lab Results Component Value Date HSTNT <6 02/16/2019 HSTNT <6 02/15/2019 TROPT <0.010 02/16/2019 TROPT <0.010 02/16/2019 TROPT <0.010 02/01/[address] Nieves evaluated the patient He will follow the patient; he ordered an out-patient stress test Patient was pain free during hospital stay without events in telemetry Last Assessment & Plan: Presented for evaluation of chest pain x's 2 days Mid sternal, sharp, intermittent with associated right upper extremity numbness and tingling Risk factors include current smoker, history of CVA, HLD, strong family history Initial work up: HS SHANTI < 6, < 6, EKG without ischemic changes, chest xray negative Cycle troponin T x's 2 Monitor on telemetry Cardiology evaluation requested, Dr. Nieves to see patient in am Suspect there may be MSK component as the pain is reproducible vs GI component with history of GERD and hiatal hernia Suprapubic pain 10/11/2011 06/10/2013 Screening for malignant neop lasm of the cervix 10/11/2011 10/11/2011 documented as of this encounter (statuses as of 08/14/2023) [facility] History of Past illness Narrative* Problem Noted Date Diagnosed Date Resolved Date Chest pain 02/16/2019 02/16/2019 Overview: Lab Results Component Value Date HSTNT <6 02/16/2019 HSTNT <6 02/15/2019 TROPT <0.010 02/16/2019 TROPT <0.010 02/16/2019 TROPT <0.010 02/01/[address] Nieves evaluated the patient He will follow the patient; he ordered an out-patient stress test Patient was pain free during hospital stay without events in telemetry Last Assessment & Plan: Presented for evaluation of chest pain x's 2 days Mid sternal, sharp, intermittent with associated right upper extremity numbness and tingling Risk factors include current smoker, history of CVA, HLD, strong family history Initial work up: HS SHANTI < 6, < 6, EKG without ischemic changes, chest xray negative Cycle troponin T x's 2 Monitor on telemetry Cardiology evaluation requested, Dr. Nieves to see patient in am Suspect there may be MSK component as the pain is reproducible vs GI component with history of GERD and hiatal hernia Suprapubic pain 10/11/2011 06/10/2013 Screening for malignant neop lasm of the cervix 10/11/2011 10/11/2011 documented as of this encounter (statuses as of 08/19/2023) [facility] History of Past illness Narrative* Problem Noted Date Diagnosed Date Resolved Date Chest pain 02/16/2019 02/16/2019 Overview: Lab Results Component Value Date HSTNT <6 02/16/2019 HSTNT <6 02/15/2019 TROPT <0.010 02/16/2019 TROPT <0.010 02/16/2019 TROPT <0.010 02/01/[address] Nieves evaluated the patient He will follow the patient; he ordered an out-patient stress test Patient was pain free during hospital stay without events in telemetry Last Assessment & Plan: Presented for evaluation of chest pain x's 2 days Mid sternal, sharp, intermittent with associated right upper extremity numbness and tingling Risk factors include current smoker, history of CVA, HLD, strong family history Initial work up: HS SHANTI < 6, < 6, EKG without ischemic changes, chest xray negative Cycle troponin T x's 2 Monitor on telemetry Cardiology evaluation requested, Dr. Nieves to see patient in am Suspect there may be MSK component as the pain is reproducible vs GI component with history of GERD and hiatal hernia Suprapubic pain 10/11/2011 06/10/2013 Screening for malignant neop lasm of the cervix 10/11/2011 10/11/2011 documented as of this encounter (statuses as of 09/05/2023) [facility] History of Past illness Narrative* Problem Noted Date Diagnosed Date Resolved Date Chest pain 02/16/2019 02/16/2019 Overview: Lab Results Component Value Date HSTNT <6 02/16/2019 HSTNT <6 02/15/2019 TROPT <0.010 02/16/2019 TROPT <0.010 02/16/2019 TROPT <0.010 02/01/[address] Nieves evaluated the patient He will follow the patient; he ordered an out-patient stress test Patient was pain free during hospital stay without events in telemetry Last Assessment & Plan: Presented for evaluation of chest pain x's 2 days Mid sternal, sharp, intermittent with associated right upper extremity numbness and tingling Risk factors include current smoker, history of CVA, HLD, strong family history Initial work up: HS SHANTI < 6, < 6, EKG without ischemic changes, chest xray negative Cycle troponin T x's 2 Monitor on telemetry Cardiology evaluation requested, Dr. Nieves to see patient in am Suspect there may be MSK component as the pain is reproducible vs GI component with history of GERD and hiatal hernia Suprapubic pain 10/11/2011 06/10/2013 Screening for malignant neop lasm of the cervix 10/11/2011 10/11/2011 documented as of this encounter (statuses as of 09/08/2023) [facility] History of Past illness Narrative* Problem Noted Date Diagnosed Date Resolved Date Chest pain 02/16/2019 02/16/2019 Overview: Lab Results Component Value Date HSTNT <6 02/16/2019 HSTNT <6 02/15/2019 TROPT <0.010 02/16/2019 TROPT <0.010 02/16/2019 TROPT <0.010 02/01/[address] Nieves evaluated the patient He will follow the patient; he ordered an out-patient stress test Patient was pain free during hospital stay without events in telemetry Last Assessment & Plan: Presented for evaluation of chest pain x's 2 days Mid sternal, sharp, intermittent with associated right upper extremity numbness and tingling Risk factors include current smoker, history of CVA, HLD, strong family history Initial work up: HS SHANTI < 6, < 6, EKG without ischemic changes, chest xray negative Cycle troponin T x's 2 Monitor on telemetry Cardiology evaluation requested, Dr. Nieves to see patient in am Suspect there may be MSK component as the pain is reproducible vs GI component with history of GERD and hiatal hernia Suprapubic pain 10/11/2011 06/10/2013 Screening for malignant neop lasm of the cervix 10/11/2011 10/11/2011 documented as of this encounter (statuses as of 09/09/2023) [facility] History of Past illness Narrative* Problem Noted Date Diagnosed Date Resolved Date Chest pain 02/16/2019 02/16/2019 Overview: Lab Results Component Value Date HSTNT <6 02/16/2019 HSTNT <6 02/15/2019 TROPT <0.010 02/16/2019 TROPT <0.010 02/16/2019 TROPT <0.010 02/01/[address] Nieves evaluated the patient He will follow the patient; he ordered an out-patient stress test Patient was pain free during hospital stay without events in telemetry Last Assessment & Plan: Presented for evaluation of chest pain x's 2 days Mid sternal, sharp, intermittent with associated right upper extremity numbness and tingling Risk factors include current smoker, history of CVA, HLD, strong family history Initial work up: HS SHANTI < 6, < 6, EKG without ischemic changes, chest xray negative Cycle troponin T x's 2 Monitor on telemetry Cardiology evaluation requested, Dr. Nieves to see patient in am Suspect there may be MSK component as the pain is reproducible vs GI component with history of GERD and hiatal hernia Suprapubic pain 10/11/2011 06/10/2013 Screening for malignant neop lasm of the cervix 10/11/2011 10/11/2011 documented as of this encounter (statuses as of 09/12/2023) [facility] History of Past illness Narrative* Problem Noted Date Diagnosed Date Resolved Date Chest pain 02/16/2019 02/16/2019 Overview: Lab Results Component Value Date HSTNT <6 02/16/2019 HSTNT <6 02/15/2019 TROPT <0.010 02/16/2019 TROPT <0.010 02/16/2019 TROPT <0.010 02/01/[address] Nieves evaluated the patient He will follow the patient; he ordered an out-patient stress test Patient was pain free during hospital stay without events in telemetry Last Assessment & Plan: Presented for evaluation of chest pain x's 2 days Mid sternal, sharp, intermittent with associated right upper extremity numbness and tingling Risk factors include current smoker, history of CVA, HLD, strong family history Initial work up: HS SHANTI < 6, < 6, EKG without ischemic changes, chest xray negative Cycle troponin T x's 2 Monitor on telemetry Cardiology evaluation requested, Dr. Nieves to see patient in am Suspect there may be MSK component as the pain is reproducible vs GI component with history of GERD and hiatal hernia Suprapubic pain 10/11/2011 06/10/2013 Screening for malignant neop lasm of the cervix 10/11/2011 10/11/2011 documented as of this encounter (statuses as of 09/13/2023) [facility] History of Past illness Narrative* Problem Noted Date Diagnosed Date Resolved Date Chest pain 02/16/2019 02/16/2019 Overview: Lab Results Component Value Date HSTNT <6 02/16/2019 HSTNT <6 02/15/2019 TROPT <0.010 02/16/2019 TROPT <0.010 02/16/2019 TROPT <0.010 02/01/[address] Nieves evaluated the patient He will follow the patient; he ordered an out-patient stress test Patient was pain free during hospital stay without events in telemetry Last Assessment & Plan: Presented for evaluation of chest pain x's 2 days Mid sternal, sharp, intermittent with associated right upper extremity numbness and tingling Risk factors include current smoker, history of CVA, HLD, strong family history Initial work up: HS SHANTI < 6, < 6, EKG without ischemic changes, chest xray negative Cycle troponin T x's 2 Monitor on telemetry Cardiology evaluation requested, Dr. Nieves to see patient in am Suspect there may be MSK component as the pain is reproducible vs GI component with history of GERD and hiatal hernia Suprapubic pain 10/11/2011 06/10/2013 Screening for malignant neop lasm of the cervix 10/11/2011 10/11/2011 documented as of this encounter (statuses as of 09/14/2023) [facility] History of Past illness Narrative* Problem Noted Date Diagnosed Date Resolved Date Chest pain 02/16/2019 02/16/2019 Overview: Lab Results Component Value Date HSTNT <6 02/16/2019 HSTNT <6 02/15/2019 TROPT <0.010 02/16/2019 TROPT <0.010 02/16/2019 TROPT <0.010 02/01/[address] Nieves evaluated the patient He will follow the patient; he ordered an out-patient stress test Patient was pain free during hospital stay without events in telemetry Last Assessment & Plan: Presented for evaluation of chest pain x's 2 days Mid sternal, sharp, intermittent with associated right upper extremity numbness and tingling Risk factors include current smoker, history of CVA, HLD, strong family history Initial work up: HS SHANTI < 6, < 6, EKG without ischemic changes, chest xray negative Cycle troponin T x's 2 Monitor on telemetry Cardiology evaluation requested, Dr. 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 Diaphragm paralysis resolved [facility] Work Phone: Evaluation note* Diagnosis Onset Date Resolution Status Lung 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 on CT acut e Bronchiectasis chronic 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 Diaphragm paralysis resolved Cellulitis of foot, left acu te [facility] Work Phone: Evaluation note* Diagnosis Onset Date Resolution Status Lung 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 on CT acut e Bronchiectasis chronic 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 Diaphragm paralysis resolved Cellulitis of foot, left acu te Contusion of great toe, left acute Infection of great toe acute Traumatic avulsion of nail plate of toe acute [facility] Work Phone: Evaluation note* Diagnosis Left leg pain- Primary Pain in limb documented in this encounter [facility] note* Diagnosis Open wound of toe, initial encounter- Primary documented in this encounter [facility] note* Diagnosis Left leg pain- Primary Pain in limb documented in this encounter [facility] note* Diagnosis Preop examination [Z01.818 (ICD-10-CM)]- Primary Preoperative examination, unspecified History of smoking 30 or more pack years [Z87.891 (ICD-10-CM)] History of stroke [Z86.73 (ICD-10-CM)] Transient ischemic attack (TIA), and cerebral infarction without residual deficits Hyperlipidemia, unspecified hyperlipidemia type [E78.5 (ICD-10-CM)] Hypertension, unspecified type [I10 (ICD-10-CM)] Chronic obstructive pulmonary disease, unspecified COPD type (HCC) [J44.9 (ICD-10-CM)] Left leg pain [M79.605 (ICD-10-CM)] Pain in limb Left leg pain Pain in limb documented in this encounter [facility] note* Diagnosis Preop examination [Z01.818 (ICD-10-CM)]- Primary Preoperative examination, unspecified Former smoker [Z87.891 (ICD-10-CM)] Personal history of tobacco use, presenting hazards to health History of CVA (cerebrovascular accident) [Z86.73 (ICD-10-CM)] Transient ischemic attack (TIA), and cerebral infarction without residual deficits Hyperlipidemia, unspecified hyperlipidemia type [E78.5 (ICD-10-CM)] Hypertension, unspecified type [I10 (ICD-10-CM)] Chronic obstructive pulmonary disease, unspecified COPD type (HCC) [J44.9 (ICD-10-CM)] Left leg pain [M79.605 (ICD-10-CM)] Pain in limb Left leg pain Pain in limb [facility] Diagnosis Onset Date Resolution Status 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 [facility] Work Phone: Evaluation note* Diagnosis Post-operative state- Primary Other postprocedural status documented in this encounter [facility] note* Diagnosis Onset Date Resolution Status 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 TIA (transient ischemic attack) [facility] Work Phone: evaluation note* Diagnosis Onset Date Resolution Status 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 TIA (transient ischemic attack) acute Chest pain acute Essential hypertension acute Sinus pause acute TIA (transient ischemic attack) [facility] Work Phone: Evaluation note* Diagnosis Onset Date Resolution Status TIA (transient ischemic attack) acute Chest pain acute Essential hypertension acute Sinus pause acute TIA (transient ischemic attack) [facility] Work Phone: evaluation note* Diagnosis Onset Date Resolution Status TIA (transient ischemic attack) acute Chest pain acute Essential hypertension acute Sinus pause acute TIA (transient ischemic attack) acute Internal impingement of right shoulder acute [facility] Work Phone: Evaluation note* Diagnosis Onset Date Resolution Status Internal impingement of right shoulder acute 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 Essential hypertension acute Sinus pause acute TIA (transient ischemic attack) acute [facility] Work Phone: Evaluation note* Diagnosis Acute right-sided low back pain with right-sided sciatica- Primary [facility] Diagnosis Post-operative state- Primary Other postprocedural status Painful scar Scar condition and fibrosis of skin documented in this encounter [facility] note* Diagnosis Onset Date Resolution Status 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 Essential hypertension acute Sinus pause acute TIA (transient ischemic attack) [facility] Work Phone: evaluation note* Diagnosis Coccyodynia- Primary Other disorder of coccyx [facility] Diagnosis Left thigh pain- Primary Pain in limb [facility]* Diagnosis Left thigh pain Pain in limb [facility]* Diagnosis ELENA (acute kidney injury) (HCC)- Primary Acute kidney failure, unspecified Impaired fasting glucose [facility]* Diagnosis Encounter for screening for lung cancer- Primary Former tobacco use Personal history of tobacco use, presenting hazards to health Lung nodules Other nonspecific abnormal finding of lung field [facility] Diagnosis Abnormal mammogram- Primary Abnormal mammogram, unspecified documented [facility]* Diagnosis Coccyodynia Other disorder of coccyx Lumbar spondylosis Lumbosacral spondylosis without myelopathy [facility] Diagnosis Onset Date Resolution Status Lung 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 on CT 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[place] 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 [facility] Work Phone: evaluation note* Diagnosis Lung nodules Other nonspecific abnormal finding of lung field [facility] Diagnosis Abnormal mammogram Abnormal mammogram, unspecified documented [facility]* Diagnosis Abnormal mammogram Abnormal mammogram, unspecified [facility]* Diagnosis Asymptomatic postmenopausal status [facility] Diagnosis Encounter for screening mammogram for breast cancer documented [facility]* Diagnosis Lumbar spondylosis Lumbosacral spondylosis without myelopathy [facility] Diagnosis ELENA (acute kidney injury) (HCC)- Primary Acute kidney failure, unspecified [facility] Diagnosis Epigastric pain- Primary Abdominal pain, epigastric Screening for colon cancer Special screening for malignant neoplasms, colon History of colonic polyps Personal history of colonic polyps Blood in stool [facility] Diagnosis Rectal bleeding- Primary Hemorrhage of rectum and anus Screening for colon cancer Special screening for malignant neoplasms, colon History of colonic polyps Personal history of colonic polyps Epigastric pain Abdominal pain, epigastric Blood in stool documented [facility]* Diagnosis Benign paroxysmal positional vertigo of right ear- Primary documented [facility]* Diagnosis Benign paroxysmal vertigo of right ear- Primary Benign paroxysmal positional vertigo Benign paroxysmal positional vertigo of right ear documented in this encounter [facility] note* Diagnosis Benign paroxysmal vertigo of right ear- Primary Benign paroxysmal positional vertigo documented [facility]* Diagnosis Acquired hypothyroidism Unspecified hypothyroidism documented in this encounter [facility] note* Diagnosis Seasonal allergic rhinitis, unspecified trigger- Primary Acute non-recurrent maxillary sinusitis Primary hypertension Unspecified essential hypertension Chronic obstructive pulmonary disease, unspecified COPD type (HCC) History of tobacco use Personal history of tobacco use, presenting hazards to health Heme positive stool Nonspecific abnormal finding in stool contents Mild episode of recurrent major depressive disorder (HCC) History of CVA (cerebrovascular accident) Transient ischemic attack (TIA), and cerebral infarction without residual deficits Vitamin D deficiency Unspecified vitamin D deficiency Acquired hypothyroidism Unspecified hypothyroidism Prediabetes Other abnormal glucose Moderate recurrent major depression (HCC) Major depressive disorder, recurrent episode, moderate documented in this encounter [facility] note* Diagnosis Chest pain, unspecified type- Primary Gastroesophageal reflux disease, esophagitis presence not specified History of CVA (cerebrovascular accident) Transient ischemic attack (TIA), and cerebral infarction without residual deficits Mixed hyperlipidemia Leukopenia, unspecified type Hypokalemia Hypopotassemia History of CVA (cerebrovascular accident) Transient ischemic attack (TIA), and cerebral infarction without residual deficits Hyperlipidemia Other and unspecified hyperlipidemia GERD (gastroesophageal reflux disease) Esophageal reflux Right calf pain- Primary documented in this encounter [facility] note* Diagnosis Chest pain, unspecified type- Primary Gastroesophageal reflux disease, esophagitis presence not specified History of CVA (cerebrovascular accident) Transient ischemic attack (TIA), and cerebral infarction without residual deficits Mixed hyperlipidemia Leukopenia, unspecified type Hypokalemia Hypopotassemia History of CVA (cerebrovascular accident) Transient ischemic attack (TIA), and cerebral infarction without residual deficits Hyperlipidemia Other and unspecified hyperlipidemia GERD (gastroesophageal reflux disease) Esophageal reflux Right calf pain documented in this encounter [facility] note* Diagnosis Chest pain, unspecified type- Primary Gastroesophageal reflux disease, esophagitis presence not specified History of CVA (cerebrovascular accident) Transient ischemic attack (TIA), and cerebral infarction without residual deficits Mixed hyperlipidemia Leukopenia, unspecified type Hypokalemia Hypopotassemia History of CVA (cerebrovascular accident) Transient ischemic attack (TIA), and cerebral infarction without residual deficits Hyperlipidemia Other and unspecified hyperlipidemia GERD (gastroesophageal reflux disease) Esophageal reflux Coccyodynia Other disorder of coccyx documented in this encounter [facility] note* Diagnosis Chest pain, unspecified type- Primary Gastroesophageal reflux disease, esophagitis presence not specified History of CVA (cerebrovascular accident) Transient ischemic attack (TIA), and cerebral infarction without residual deficits Mixed hyperlipidemia Leukopenia, unspecified type Hypokalemia Hypopotassemia History of CVA (cerebrovascular accident) Transient ischemic attack (TIA), and cerebral infarction without residual deficits Hyperlipidemia Other and unspecified hyperlipidemia GERD (gastroesophageal reflux disease) Esophageal reflux Colitis- Primary Other and unspecified noninfectious gastroenteritis and colitis RLQ abdominal pain Abdominal pain, right lower quadrant Rectal bleeding Hemorrhage of rectum and anus Nasal congestion Other diseases of nasal cavity and sinuses Rhinorrhea Other diseases of nasal cavity and sinuses documented in this encounter [facility] note* Diagnosis Chest pain, unspecified type- Primary Gastroesophageal reflux disease, esophagitis presence not specified History of CVA (cerebrovascular accident) Transient ischemic attack (TIA), and cerebral infarction without residual deficits Mixed hyperlipidemia Leukopenia, unspecified type Hypokalemia Hypopotassemia History of CVA (cerebrovascular accident) Transient ischemic attack (TIA), and cerebral infarction without residual deficits Hyperlipidemia Other and unspecified hyperlipidemia GERD (gastroesophageal reflux disease) Esophageal reflux COVID-19- Primary documented in this encounter [facility] note* Diagnosis Chest pain, unspecified type- Primary Gastroesophageal reflux disease, esophagitis presence not specified History of CVA (cerebrovascular accident) Transient ischemic attack (TIA), and cerebral infarction without residual deficits Mixed hyperlipidemia Leukopenia, unspecified type Hypokalemia Hypopotassemia History of CVA (cerebrovascular accident) Transient ischemic attack (TIA), and cerebral infarction without residual deficits Hyperlipidemia Other and unspecified hyperlipidemia GERD (gastroesophageal reflux disease) Esophageal reflux Elevated LFTs- Primary Other abnormal blood chemistry documented in this encounter [facility] note* Diagnosis Chest pain, unspecified type- Primary Gastroesophageal reflux disease, esophagitis presence not specified History of CVA (cerebrovascular accident) Transient ischemic attack (TIA), and cerebral infarction without residual deficits Mixed hyperlipidemia Leukopenia, unspecified type Hypokalemia Hypopotassemia History of CVA (cerebrovascular accident) Transient ischemic attack (TIA), and cerebral infarction without residual deficits Hyperlipidemia Other and unspecified hyperlipidemia GERD (gastroesophageal reflux disease) Esophageal reflux Encounter for screening mammogram for breast cancer documented in this encounter [facility] note* Diagnosis Chest pain, unspecified type- Primary Gastroesophageal reflux disease, esophagitis presence not specified History of CVA (cerebrovascular accident) Transient ischemic attack (TIA), and cerebral infarction without residual deficits Mixed hyperlipidemia Leukopenia, unspecified type Hypokalemia Hypopotassemia History of CVA (cerebrovascular accident) Transient ischemic attack (TIA), and cerebral infarction without residual deficits Hyperlipidemia Other and unspecified hyperlipidemia GERD (gastroesophageal reflux disease) Esophageal reflux Acquired hypothyroidism Unspecified hypothyroidism documented in this encounter [facility] note* Diagnosis Chest pain, unspecified type- Primary Gastroesophageal reflux disease, esophagitis presence not specified History of CVA (cerebrovascular accident) Transient ischemic attack (TIA), and cerebral infarction without residual deficits Mixed hyperlipidemia Leukopenia, unspecified type Hypokalemia Hypopotassemia History of CVA (cerebrovascular accident) Transient ischemic attack (TIA), and cerebral infarction without residual deficits Hyperlipidemia Other and unspecified hyperlipidemia GERD (gastroesophageal reflux disease) Esophageal reflux Nausea- Primary Nausea alone Right lower quadrant abdominal pain Abdominal pain, right lower quadrant Nausea Nausea alone Right lower quadrant abdominal pain Abdominal pain, right lower quadrant documented in this encounter [facility] note* Diagnosis Chest pain, unspecified type- Primary Gastroesophageal reflux disease, esophagitis presence not specified History of CVA (cerebrovascular accident) Transient ischemic attack (TIA), and cerebral infarction without residual deficits Mixed hyperlipidemia Leukopenia, unspecified type Hypokalemia Hypopotassemia History of CVA (cerebrovascular accident) Transient ischemic attack (TIA), and cerebral infarction without residual deficits Hyperlipidemia Other and unspecified hyperlipidemia GERD (gastroesophageal reflux disease) Esophageal reflux Nausea Nausea alone Right lower quadrant abdominal pain Abdominal pain, right lower quadrant documented in this encounter [facility] note* Diagnosis Chest pain, unspecified type- Primary Gastroesophageal reflux disease, esophagitis presence not specified History of CVA (cerebrovascular accident) Transient ischemic attack (TIA), and cerebral infarction without residual deficits Mixed hyperlipidemia Leukopenia, unspecified type Hypokalemia Hypopotassemia History of CVA (cerebrovascular accident) Transient ischemic attack (TIA), and cerebral infarction without residual deficits Hyperlipidemia Other and unspecified hyperlipidemia GERD (gastroesophageal reflux disease) Esophageal reflux RLQ abdominal mass- Primary Abdominal or pelvic swelling, mass, or lump, right lower quadrant documented in this encounter [facility] note* Diagnosis Chest pain, unspecified type- Primary Gastroesophageal reflux disease, esophagitis presence not specified History of CVA (cerebrovascular accident) Transient ischemic attack (TIA), and cerebral infarction without residual deficits Mixed hyperlipidemia Leukopenia, unspecified type Hypokalemia Hypopotassemia History of CVA (cerebrovascular accident) Transient ischemic attack (TIA), and cerebral infarction without residual deficits Hyperlipidemia Other and unspecified hyperlipidemia GERD (gastroesophageal reflux disease) Esophageal reflux Right lower quadrant abdominal mass Abdominal or pelvic swelling, mass, or lump, right lower quadrant RLQ abdominal mass Abdominal or pelvic swelling, mass, or lump, right lower quadrant documented in this encounter [facility] note* Diagnosis Chest pain, unspecified type- Primary Gastroesophageal reflux disease, esophagitis presence not specified History of CVA (cerebrovascular accident) Transient ischemic attack (TIA), and cerebral infarction without residual deficits Mixed hyperlipidemia Leukopenia, unspecified type Hypokalemia Hypopotassemia History of CVA (cerebrovascular accident) Transient ischemic attack (TIA), and cerebral infarction without residual deficits Hyperlipidemia Other and unspecified hyperlipidemia GERD (gastroesophageal reflux disease) Esophageal reflux Falls frequently Personal history of fall Knee gives out, right History of CVA (cerebrovascular accident) Transient ischemic attack (TIA), and cerebral infarction without residual deficits Primary hypertension Unspecified essential hypertension Mixed hyperlipidemia Acquired hypothyroidism Unspecified hypothyroidism documented in this encounter [facility] note* Diagnosis Chest pain, unspecified type- Primary Gastroesophageal reflux disease, esophagitis presence not specified History of CVA (cerebrovascular accident) Transient ischemic attack (TIA), and cerebral infarction without residual deficits Mixed hyperlipidemia Leukopenia, unspecified type Hypokalemia Hypopotassemia History of CVA (cerebrovascular accident) Transient ischemic attack (TIA), and cerebral infarction without residual deficits Hyperlipidemia Other and unspecified hyperlipidemia GERD (gastroesophageal reflux disease) Esophageal reflux Falls frequently Personal history of fall Knee gives out, right documented in this encounter [facility] note* Diagnosis Chest pain, unspecified type- Primary Gastroesophageal reflux disease, esophagitis presence not specified History of CVA (cerebrovascular accident) Transient ischemic attack (TIA), and cerebral infarction without residual deficits Mixed hyperlipidemia Leukopenia, unspecified type Hypokalemia Hypopotassemia History of CVA (cerebrovascular accident) Transient ischemic attack (TIA), and cerebral infarction without residual deficits Hyperlipidemia Other and unspecified hyperlipidemia GERD (gastroesophageal reflux disease) Esophageal reflux Acquired hypothyroidism Unspecified hypothyroidism [facility] Diagnosis Chest pain, unspecified type- Primary Gastroesophageal reflux disease, esophagitis presence not specified History of CVA (cerebrovascular accident) Transient ischemic attack (TIA), and cerebral infarction without residual deficits Mixed hyperlipidemia Leukopenia, unspecified type Hypokalemia Hypopotassemia History of CVA (cerebrovascular accident) Transient ischemic attack (TIA), and cerebral infarction without residual deficits Hyperlipidemia Other and unspecified hyperlipidemia GERD (gastroesophageal reflux disease) Esophageal reflux Right lower quadrant abdominal mass- Primary Abdominal or pelvic swelling, mass, or lump, right lower quadrant documented [facility]* Diagnosis Chest pain, unspecified type- Primary Gastroesophageal reflux disease, esophagitis presence not specified History of CVA (cerebrovascular accident) Transient ischemic attack (TIA), and cerebral infarction without residual deficits Mixed hyperlipidemia Leukopenia, unspecified type Hypokalemia Hypopotassemia History of CVA (cerebrovascular accident) Transient ischemic attack (TIA), and cerebral infarction without residual deficits Hyperlipidemia Other and unspecified hyperlipidemia GERD (gastroesophageal reflux disease) Esophageal reflux Abnormality of gait- Primary Falls frequently Personal history of fall Knee gives out, right Muscle stiffness Unspecified disorder of muscle, ligament, and fascia Chronic pain of right knee Right leg weakness Other musculoskeletal symptoms referable to limbs [facility] Diagnosis Chest pain, unspecified type- Primary Gastroesophageal reflux disease, esophagitis presence not specified History of CVA (cerebrovascular accident) Transient ischemic attack (TIA), and cerebral infarction without residual deficits Mixed hyperlipidemia Leukopenia, unspecified type Hypokalemia Hypopotassemia History of CVA (cerebrovascular accident) Transient ischemic attack (TIA), and cerebral infarction without residual deficits Hyperlipidemia Other and unspecified hyperlipidemia GERD (gastroesophageal reflux disease) Esophageal reflux Gastroesophageal reflux disease without esophagitis- Primary Esophageal reflux Primary hypertension Unspecified essential hypertension Mixed hyperlipidemia Acquired hypothyroidism Unspecified hypothyroidism Elevated LFTs Other abnormal blood chemistry Chronic obstructive pulmonary disease, unspecified COPD type (HCC) Moderate recurrent major depression (HCC) Major depressive disorder, recurrent episode, moderate Stage 3a chronic kidney disease (HCC) documented in this encounter [facility] note* Diagnosis Chest pain, unspecified type- Primary Gastroesophageal reflux disease, esophagitis presence not specified History of CVA (cerebrovascular accident) Transient ischemic attack (TIA), and cerebral infarction without residual deficits Mixed hyperlipidemia Leukopenia, unspecified type Hypokalemia Hypopotassemia History of CVA (cerebrovascular accident) Transient ischemic attack (TIA), and cerebral infarction without residual deficits Hyperlipidemia Other and unspecified hyperlipidemia GERD (gastroesophageal reflux disease) Esophageal reflux Falls frequently- Primary Personal history of fall Knee gives out, right Abnormality of gait Right leg weakness Other musculoskeletal symptoms referable to limbs [facility]* Diagnosis Chest pain, unspecified type- Primary Gastroesophageal reflux disease, esophagitis presence not specified History of CVA (cerebrovascular accident) Transient ischemic attack (TIA), and cerebral infarction without residual deficits Mixed hyperlipidemia Leukopenia, unspecified type Hypokalemia Hypopotassemia History of CVA (cerebrovascular accident) Transient ischemic attack (TIA), and cerebral infarction without residual deficits Hyperlipidemia Other and unspecified hyperlipidemia GERD (gastroesophageal reflux disease) Esophageal reflux Falls frequently- Primary Personal history of fall Knee gives out, right Abnormality of gait Right leg weakness Other musculoskeletal symptoms referable to limbs documented in this encounter [facility] note* Diagnosis Chest pain, unspecified type- Primary Gastroesophageal reflux disease, esophagitis presence not specified History of CVA (cerebrovascular accident) Transient ischemic attack (TIA), and cerebral infarction without residual deficits Mixed hyperlipidemia Leukopenia, unspecified type Hypokalemia Hypopotassemia History of CVA (cerebrovascular accident) Transient ischemic attack (TIA), and cerebral infarction without residual deficits Hyperlipidemia Other and unspecified hyperlipidemia GERD (gastroesophageal reflux disease) Esophageal reflux Falls frequently- Primary Personal history of fall Knee gives out, right Abnormality of gait Right leg weakness Other musculoskeletal symptoms referable to limbs [facility] Diagnosis Chest pain, unspecified type- Primary Gastroesophageal reflux disease, esophagitis presence not specified History of CVA (cerebrovascular accident) Transient ischemic attack (TIA), and cerebral infarction without residual deficits Mixed hyperlipidemia Leukopenia, unspecified type Hypokalemia Hypopotassemia History of CVA (cerebrovascular accident) Transient ischemic attack (TIA), and cerebral infarction without residual deficits Hyperlipidemia Other and unspecified hyperlipidemia GERD (gastroesophageal reflux disease) Esophageal reflux Falls frequently- Primary Personal history of fall Knee gives out, right Abnormality of gait Right leg weakness Other musculoskeletal symptoms referable to limbs documented in this encounter [facility] note* Diagnosis Chest pain, unspecified type- Primary Gastroesophageal reflux disease, esophagitis presence not specified History of CVA (cerebrovascular accident) Transient ischemic attack (TIA), and cerebral infarction without residual deficits Mixed hyperlipidemia Leukopenia, unspecified type Hypokalemia Hypopotassemia History of CVA (cerebrovascular accident) Transient ischemic attack (TIA), and cerebral infarction without residual deficits Hyperlipidemia Other and unspecified hyperlipidemia GERD (gastroesophageal reflux disease) Esophageal reflux Falls frequently- Primary Personal history of fall Knee gives out, right Abnormality of gait Right leg weakness Other musculoskeletal symptoms referable to limbs [facility]* Diagnosis Chest pain, unspecified type- Primary Gastroesophageal reflux disease, esophagitis presence not specified History of CVA (cerebrovascular accident) Transient ischemic attack (TIA), and cerebral infarction without residual deficits Mixed hyperlipidemia Leukopenia, unspecified type Hypokalemia Hypopotassemia History of CVA (cerebrovascular accident) Transient ischemic attack (TIA), and cerebral infarction without residual deficits Hyperlipidemia Other and unspecified hyperlipidemia GERD (gastroesophageal reflux disease) Esophageal reflux URI, acute- Primary Acute upper respiratory infections of unspecified site documented in this encounter [facility] note* Diagnosis Chest pain, unspecified type- Primary Gastroesophageal reflux disease, esophagitis presence not specified History of CVA (cerebrovascular accident) Transient ischemic attack (TIA), and cerebral infarction without residual deficits Mixed hyperlipidemia Leukopenia, unspecified type Hypokalemia Hypopotassemia History of CVA (cerebrovascular accident) Transient ischemic attack (TIA), and cerebral infarction without residual deficits Hyperlipidemia Other and unspecified hyperlipidemia GERD (gastroesophageal reflux disease) Esophageal reflux Influenza A- Primary Influenza with other respiratory manifestations [facility]* Diagnosis Chest pain, unspecified type- Primary Gastroesophageal reflux disease, esophagitis presence not specified History of CVA (cerebrovascular accident) Transient ischemic attack (TIA), and cerebral infarction without residual deficits Mixed hyperlipidemia Leukopenia, unspecified type Hypokalemia Hypopotassemia History of CVA (cerebrovascular accident) Transient ischemic attack (TIA), and cerebral infarction without residual deficits Hyperlipidemia Other and unspecified hyperlipidemia GERD (gastroesophageal reflux disease) Esophageal reflux Acquired hypothyroidism Unspecified hypothyroidism documented in this encounter [facility] note* Diagnosis Chest pain, unspecified type- Primary Gastroesophageal reflux disease, esophagitis presence not specified History of CVA (cerebrovascular accident) Transient ischemic attack (TIA), and cerebral infarction without residual deficits Mixed hyperlipidemia Leukopenia, unspecified type Hypokalemia Hypopotassemia History of CVA (cerebrovascular accident) Transient ischemic attack (TIA), and cerebral infarction without residual deficits Hyperlipidemia Other and unspecified hyperlipidemia GERD (gastroesophageal reflux disease) Esophageal reflux RUQ pain- Primary Abdominal pain, right upper quadrant Nausea Nausea alone Dark stools Nonspecific abnormal finding in stool contents Hepatic cyst Other specified disorders of liver documented in this encounter [facility] note* Diagnosis Chest pain, unspecified type- Primary Gastroesophageal reflux disease, esophagitis presence not specified History of CVA (cerebrovascular accident) Transient ischemic attack (TIA), and cerebral infarction without residual deficits Mixed hyperlipidemia Leukopenia, unspecified type Hypokalemia Hypopotassemia History of CVA (cerebrovascular accident) Transient ischemic attack (TIA), and cerebral infarction without residual deficits Hyperlipidemia Other and unspecified hyperlipidemia GERD (gastroesophageal reflux disease) Esophageal reflux Nausea Nausea alone RUQ pain Abdominal pain, right upper quadrant documented in this encounter [facility] note* Diagnosis Chest pain, unspecified type- Primary Gastroesophageal reflux disease, esophagitis presence not specified History of CVA (cerebrovascular accident) Transient ischemic attack (TIA), and cerebral infarction without residual deficits Mixed hyperlipidemia Leukopenia, unspecified type Hypokalemia Hypopotassemia History of CVA (cerebrovascular accident) Transient ischemic attack (TIA), and cerebral infarction without residual deficits Hyperlipidemia Other and unspecified hyperlipidemia GERD (gastroesophageal reflux disease) Esophageal reflux Hepatic cyst Other specified disorders of liver documented in this encounter [facility] noteNo assessment information availableWWright-[facility] Work Phone: Evaluation note* Diagnosis Chest pain, unspecified type- Primary Gastroesophageal reflux disease, esophagitis presence not specified History of CVA (cerebrovascular accident) Transient ischemic attack (TIA), and cerebral infarction without residual deficits Mixed hyperlipidemia Leukopenia, unspecified type Hypokalemia Hypopotassemia History of CVA (cerebrovascular accident) Transient ischemic attack (TIA), and cerebral infarction without residual deficits Hyperlipidemia Other and unspecified hyperlipidemia GERD (gastroesophageal reflux disease) Esophageal reflux RLQ abdominal pain- Primary Abdominal pain, right lower quadrant RUQ abdominal pain Abdominal pain, right upper quadrant Fall (on) (from) other stairs and steps, initial encounter Hematoma of right lower extremity, initial encounter Fall (on) (from) other stairs and steps, initial encounter Hematoma of right lower extremity, initial encounter [facility] Diagnosis Chest pain, unspecified type- Primary Gastroesophageal reflux disease, esophagitis presence not specified History of CVA (cerebrovascular accident) Transient ischemic attack (TIA), and cerebral infarction without residual deficits Mixed hyperlipidemia Leukopenia, unspecified type Hypokalemia Hypopotassemia History of CVA (cerebrovascular accident) Transient ischemic attack (TIA), and cerebral infarction without residual deficits Hyperlipidemia Other and unspecified hyperlipidemia GERD (gastroesophageal reflux disease) Esophageal reflux Fall (on) (from) other stairs and steps, initial encounter Hematoma of right lower extremity, initial encounter [facility]* Diagnosis Chest pain, unspecified type- Primary Gastroesophageal reflux disease, esophagitis presence not specified History of CVA (cerebrovascular accident) Transient ischemic attack (TIA), and cerebral infarction without residual deficits Mixed hyperlipidemia Leukopenia, unspecified type Hypokalemia Hypopotassemia History of CVA (cerebrovascular accident) Transient ischemic attack (TIA), and cerebral infarction without residual deficits Hyperlipidemia Other and unspecified hyperlipidemia GERD (gastroesophageal reflux disease) Esophageal reflux Mixed hyperlipidemia- Primary Acquired hypothyroidism Unspecified hypothyroidism Chronic obstructive pulmonary disease, unspecified COPD type (HCC) Seasonal allergic rhinitis, unspecified trigger Moderate recurrent major depression (HCC) Major depressive disorder, recurrent episode, moderate documented in this encounter [facility] note* Diagnosis Onset Date Resolution Status Admit Date Chronic hypoxic respiratory failure chronic December 05, 2024 1:54pm Lung nodule chronic December 05 1:54pm 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 December 05, 2024 1:54pm [facility] Work Phone: Hospital Discharge instructions Additional Instructions Follow-up with orthopedics as needed. Take Tylenol and ice the affected areas. [facility] Work Phone: Hospital Discharge instructionsAmbulatory Orders* Orthopedics Location: None Selected * PT Referral Location: None Selected [facility] Work Phone: Hospital Discharge instructions Additional Instructions Follow-up with primary care physician. Return back to the ED if symptoms change or worsen. At this point in time no clear reason for your pain. You received Toradol here in the emergency department. No ibuprofen for 8 hours after that okay to take. Okay for Tylenol.[facility] Work Phone: Reason for referral (narrative)* Diagnostic Procedure Only (Routine) - Pending Review Specialty Diagnoses / Procedures Referred By Contac t Referred To Contact US IMAGING Diagnoses Left thigh pain Procedures US EXTREMITY MASS/FLUID COLLECTION LEFT Lili Bob PA-C [address] [facility] [address] [place] [id number] [facility] Referral ID Status Reason Start Date Expiration Date Visits Requested Visits Authorized [id number] Pending Review Auto-Generat ed Referral 12/30/2022 01/29/2024 1 1 [facility] for referral (narrative)* Diagnostic Procedure Only (Routine) - Pending Review Specialty Diagnoses / Procedures Referred By France t Referred To Contact BR IMAGING Diagnoses Abnormal mammogram Procedures US BREAST LTD LEFT US BREAST UNI REAL TIME WITH IMAGE LIMITED Tatiana Ronquillo MD [address] [place] [address] [facility] [address] [place] [address] Referral ID Status Reason Start Date Expiration Date Visits Requested Visits Authorized [id number] Pending Review Auto-Generat ed Referral 02/25/2023 03/26/2024 1 1 * Diagnostic Procedure Only (Routine) - Pending Review Specialty Diagnoses / Procedures Referred By Contac t Referred To Contact BR IMAGING Diagnoses Abnormal mammogram Procedures LUIS DIAGNOSTIC LEFT DIAGNOSTIC MAMMOGRAPHY COMPUTER-AIDED DETCJ UNI Tatiana Ronquillo MD [address] [place] [address] [facility] [address] [place] [address] Referral ID Status Reason Start Date Expiration Date Visits Requested Visits Authorized [id number] Pending Review Auto-Generat ed Referral 02/25/2023 03/26/2024 1 1 [facility] for referral (narrative)* Diagnostic Procedure Only (Routine) - Closed Specialty Diagnoses / Procedures Referred By France sanabria Referred To Contact BR IMAGING Diagnoses Encounter for screening mammogram for breast cancer Procedures LUIS SCREENING SCREENING MAMMOGRAPHY BI 2-VIEW BREAST INC CAD Tatiana Ronquillo MD [address] [place] [address] [facility] [address] [place] [address] Referral ID Status Reason Start Date Expiration Date V isits Requested Visits Authorized [id number] Closed Auto-Generate d Referral 01/26/2023 02/25/2024 1 1 [facility] for referral (narrative)* Diagnostic Procedure Only (Routine) - Closed Specialty Diagnoses / Procedures Referred By France sanabria Referred To Contact XR IMAGING Diagnoses Lumbar spondylosis Procedures XR LUMBAR MOTION 4V AP/LAT/ FLEX/EXT RADEX SPINE LUMBOSACRAL MINIMUM 4 VIEWS Neal Guevara MD [address] [address] [place] [address] Referral ID Status Reason Start Date Expiration Date V isits Requested Visits Authorized [id number] Closed Auto-Generate d Referral 02/23/2023 03/24/2024 1 1 [facility] for referral (narrative)* Outpatient Procedure (Routine) - Pending Review Specialty Diagnoses / Procedures Referred By [place] sanabria Referred To Contact [facility] Diagnoses Screening for colon cancer History of colonic polyps Epigastric pain Blood in stool Procedures EGD DIAGNOSTIC ESOPHAGOGASTRODUODENOS COPY TRANSORAL DIAGNOSTIC Antoine Lipscomb MD [address] [facility] [address] [place] [address] [facility] [address] [place] [id number] Referral ID Status Reason Start Date Expiration Date Visits Requested Visits Authorized [id number] Pending Review Auto-Generat ed Referral 08/18/2023 08/17/2024 1 1 * Outpatient Procedure (Routine) - Pending Review Specialty Diagnoses / Procedures Referred By [place] sanabria Referred To Contact [facility] Diagnoses Screening for colon cancer History of colonic polyps Epigastric pain Blood in stool Procedures COLONOSCOPY DIAGNOSTIC COLONOSCOPY FLX DX W/COLLJ SPEC WHEN Antoine Rudolph MD [address] [address] [facility] [address] [place] [address] Referral ID Status Reason Start Date Expiration Date Visits Requested Visits Authorized [id number] Pending Review Auto-Generat ed Referral 08/18/2023 08/17/2024 1 1 [facility] for referral (narrative)* Outpatient Procedure (Routine) - Closed Specialty Diagnoses / Procedures Referred By [place] sanabria Referred To Contact Diagnoses Screening for colon cancer History of colonic polyps Epigastric pain Blood in stool Procedures EGD DIAGNOSTIC ESOPHAGOGASTRODUODENOSCOP Y TRANSORAL DIAGNOSTIC Antoine Lipscomb MD [address] [address] [facility] [address] [place] [address] Referral ID Status Reason Start Date Expiration Date V isits Requested Visits Authorized [id number] Closed Auto-Generate d Referral 09/04/2023 12/03/2023 1 1 * Outpatient Procedure (Routine) - Closed Specialty Diagnoses / Procedures Referred By France sanabria Referred To Contact Diagnoses Screening for colon cancer History of colonic polyps Epigastric pain Blood in stool Procedures COLONOSCOPY DIAGNOSTIC COLONOSCOPY FLX DX W/COLLJ SPEC WHEN Antoine Rudolph MD [address] [address] [facility] [address] [place] [address] Referral ID Status Reason Start Date Expiration Date V isits Requested Visits Authorized [id number] Closed Auto-Generate d Referral 09/04/2023 12/03/2023 1 1 [facility] for referral (narrative)* Diagnostic Procedure Only (Urgent) - Closed Specialty Diagnoses / Procedures Referred By [place] sanabria Referred To Contact [facility] Diagnoses Right calf pain Procedures US DVT LOWER RIGHT DUP-SCAN XTR VEINS UNILATERAL/LIMITED STUDY Yamile Curry DO [address] [place] [address] [place] [address] Referral ID Status Reason Start Date Expiration Date V isits Requested Visits Authorized [id number] Closed Auto-Generate d Referral 01/23/2024 02/20/2025 1 1 [facility] for referral (narrative)* Diagnostic Procedure Only (Routine) - Closed Specialty Diagnoses / Procedures Referred By [place] sanabria Referred To Contact [facility] Diagnoses Coccyodynia Procedures XR SACRUM/COCCYX 3V AP/LAT RADEX SACRUM & COCCYX MINIMUM 2 VIEWS PodlogarShavonne, SHELL PLATER.ENVIRONMENTAL PROJECTS ADVISOR [address] [place] [address] [place] [address] Referral ID Status Reason Start Date Expiration Date V isits Requested Visits Authorized [id number] Closed Auto-Generate d Referral 12/19/2022 01/18/2024 1 1 [facility] for referral (narrative)* Diagnostic Procedure Only (Routine) - New Request Specialty Diagnoses / Procedures Referred By [place] sanabria Referred To Contact [facility] Diagnoses Encounter for screening mammogram for breast cancer Procedures LUIS SCREENING W CALI SCREENING DIGITAL BREAST TOMOSYNTHESIS BI SCREENING MAMMOGRAPHY BI 2-VIEW BREAST INC CAD Tatiana Ronquillo MD [address] [place] [address] [facility] [address] [place] [address] Referral ID Status Reason Start Date Expiration Date Visits Requested Visits Authorized [id number] New Request Auto-Generat ed Referral 04/03/2024 05/03/2025 1 1 [facility] for referral (narrative)* Diagnostic Procedure Only (Routine) - Closed Specialty Diagnoses / Procedures Referred By Contac t Referred To Contact [facility] Diagnoses RLQ abdominal mass Procedures US SOFT TISSUE ABDOMEN US ABDOMINAL REAL TIME W/IMAGE LIMITED EricklogShavonne johnston APRN.CNP [address] [place] [address] [place] [address] Referral ID Status Reason Start Date Expiration Date V isits Requested Visits Authorized [id number] Closed Auto-Generate d Referral 04/19/2024 05/19/2025 1 1 [facility] for referral (narrative)* Diagnostic Procedure Only (Routine) - Closed Specialty Diagnoses / Procedures Referred By Contac t Referred To Contact XR IMAG[facility] Diagnoses Falls frequently Knee gives out, right Procedures XR KNEE GENERAL 4V AP BOTH/PA BOTH/LAT/MERC RIGHT RADIOLOGIC EXAM KNEE COMPLETE 4/MORE VIEWS Tatiana Ronquillo MD [address] [place] [address] [place] [address] Referral ID Status Reason Start Date Expiration Date V isits Requested Visits Authorized [id number] Closed Auto-Generate d Referral 04/29/2024 05/29/2025 1 1 * Physical Therapy (Routine) - Closed Specialty Diagnoses / Procedures Referred By Contac t Referred To Contact [facility] Diagnoses Falls frequently Knee gives out, right Procedures CONSULT TO PHYSICAL THERAPY PHYSICAL THERAPY EVALUATION HIGH COMPLEX 45 MINS Tatiana Ronquillo MD [facility] [place] [address] [facility] [address] [place] [address] Referral ID Status Reason Start Date Expiration Date V isits Requested Visits Authorized [id number] Closed Auto-Generate d Referral 04/29/2024 04/29/2025 1 0 [facility] for referral (narrative)* Diagnostic Procedure Only (Urgent) - Closed Specialty Diagnoses / Procedures Referred By France t Referred To Contact [facility] Diagnoses Right lower quadrant abdominal mass Procedures US EXTREMITY MASS/FLUID COLLECTION RIGHT Sabine Crowley APRN.CNP [address] [place] [address] [place] [address] Referral ID Status Reason Start Date Expiration Date V isits Requested Visits Authorized [id number] Closed Auto-Generate d Referral 04/18/2024 05/18/2025 1 1 [facility] for referral (narrative)No reason for referral information availableWWright[facility] Work Phone: Reason for visit Narrative* Diagnostic Procedure Only (Routine) - Closed Specialty Diagnoses / Procedures Referred By France t Referred To Contact [facility] Diagnoses Left thigh pain Procedures US EXTREMITY MASS/FLUID COLLECTION LEFT Lili Bob PA-C [address] [facility] [address] [place] [address] [facility] Referral ID Status Reason Start Date Expiration Date V isits Requested Visits Authorized [id number] Closed Auto-Generate d Referral 12/30/2022 01/29/2024 1 1 [facility] for visit Narrative* Diagnostic Procedure Only (Routine) - Closed Specialty Diagnoses / Procedures Referred By France t Referred To Contact [facility] Diagnoses Abnormal mammogram Procedures LUIS DIAGNOSTIC LEFT DIAGNOSTIC MAMMOGRAPHY COMPUTER-AIDED DETCJ UNI Tatiana Ronquillo MD [address] [place] [address] [facility] [address] [place] [address] Referral ID Status Reason Start Date Expiration Date V isits Requested Visits Authorized [id number] Closed Auto-Generate d Referral 02/25/2023 03/26/2024 1 1 [facility] for visit Narrative* Diagnostic Procedure Only (Routine) - Authorized Specialty Diagnoses / Procedures Referred By France sanabria Referred To Contact [facility] Diagnoses Abnormal mammogram Procedures US BREAST LTD LEFT US BREAST UNI REAL TIME WITH IMAGE LIMITED Taitana Ronquillo MD [address] [place] [address] [facility] [address] [place] [address] Referral ID Status Reason Start Date Expiration Date Visits Requested Visits Authorized [id number] Authorized Auto-Generat ed Referral 04/12/2024 1 1 [facility] for visit Narrative* Diagnostic Procedure Only (Routine) - Closed Specialty Diagnoses / Procedures Referred By France sanabria Referred To Contact [facility] Diagnoses Encounter for screening mammogram for breast cancer Procedures LUIS SCREENING SCREENING MAMMOGRAPHY BI 2-VIEW BREAST INC CAD Tatiana Ronquillo MD [address] [place] [address] [facility] [address] [place] [phone] Referral ID Status Reason Start Date Expiration Date V isits Requested Visits Authorized [id number] Closed Auto-Generate d Referral 01/26/2023 02/25/2024 1 1 [facility] for visit Narrative* Diagnostic Procedure Only (Routine) - Closed Specialty Diagnoses / Procedures Referred By [place] sanabria Referred To Contact [facility] Diagnoses Lumbar spondylosis Procedures XR LUMBAR MOTION 4V AP/LAT/ FLEX/EXT RADEX SPINE LUMBOSACRAL MINIMUM 4 VIEWS Neal Guevara MD [address] [facility] [address] [place] [address] [place] [address] Referral ID Status Reason Start Date Expiration Date V isits Requested Visits Authorized [id number] Closed Auto-Generate d Referral 02/23/2023 03/24/2024 1 1 [facility] for visit Narrative* Outpatient Procedure (Routine) - Closed Specialty Diagnoses / Procedures Referred By France sanabria Referred To Contact Diagnoses Screening for colon cancer History of colonic polyps Epigastric pain Blood in stool Procedures EGD DIAGNOSTIC ESOPHAGOGASTRODUODENOSCOP Y TRANSORAL DIAGNOSTIC Antoine Lipscomb MD [address] [facility] [address] [place] [address] [facility] [address] [place] [address] Referral ID Status Reason Start Date Expiration Date V isits Requested Visits Authorized [id number] Closed Auto-Generate d Referral 09/04/2023 12/03/2023 1 1 [facility] for visit Narrative* Diagnostic Procedure Only (Urgent) - Closed Specialty Diagnoses / Procedures Referred By Contac t Referred To Contact [facility] Diagnoses Right calf pain Procedures US DVT LOWER RIGHT DUP-SCAN XTR VEINS UNILATERAL/LIMITED STUDY Yamile Curry DO [address] [place] [address] [place] [address] Referral ID Status Reason Start Date Expiration Date V isits Requested Visits Authorized [id number] Closed Auto-Generate d Referral 01/23/2024 02/20/2025 1 1 [facility] for visit Narrative* Diagnostic Procedure Only (Routine) - Closed Specialty Diagnoses / Procedures Referred By Contac t Referred To Contact [facility] Diagnoses Coccyodynia Procedures XR SACRUM/COCCYX 3V AP/LAT RADEX SACRUM & COCCYX MINIMUM 2 VIEWS Podlogar, ANATOLIY Marvin [address] [place] [address] [place] [address] Referral ID Status Reason Start Date Expiration Date V isits Requested Visits Authorized [id number] Closed Auto-Generate d Referral 12/19/2022 01/18/2024 1 1 [facility] for visit Narrative* Diagnostic Procedure Only (Routine) - Closed Specialty Diagnoses / Procedures Referred By Contac t Referred To Contact [facility] Diagnoses Falls frequently Knee gives out, right Procedures XR KNEE GENERAL 4V AP BOTH/PA BOTH/LAT/MERC RIGHT RADIOLOGIC EXAM KNEE COMPLETE 4/MORE VIEWS Tatiana Ronquillo MD [address] [place] [address] [place] [address] Referral ID Status Reason Start Date Expiration Date V isits Requested Visits Authorized [id number] Closed Auto-Generate d Referral 04/29/2024 05/29/2025 1 1 [facility] for visit Narrative* MRI/CT (Routine) - Closed Specialty Diagnoses / Procedures Referred By Contac t Referred To Contact [facility] Diagnoses Hepatic cyst Procedures MRI LIVER WO/W IVCON MRI ABDOMEN W/O & W/CONTRAST MATERIAL Shavonne Donato APRN.CNP [address] [place] [address] Phone: tel: fax: [place] [address] Referral ID Status Reason Start Date Expiration Date V isits Requested Visits Authorized [id number] Closed Auto-Generate d Referral 08/06/2024 09/05/2025 1 1 [facility] for visit Narrative* Diagnostic Procedure Only (Urgent) - Closed Specialty Diagnoses / Procedures Referred By Contac t Referred To Contact X[facility] Diagnoses Fall (on) (from) other stairs and steps, initial encounter Hematoma of right lower extremity, initial encounter Procedures XR TIBIA FIBULA 2V AP/LAT RIGHT RADIOLOGIC EXAMINATION TIBIA & FIBULA 2 VIEWS Tatiana Ronquillo MD [address] [place] [address] Phone: tel: fax: [place] [address] Referral ID Status Reason Start Date Expiration Date V isits Requested Visits Authorized [id number] Closed Auto-Generate d Referral 10/23/2024 11/22/2025 1 1 [facility] Summary Purpose Family History Relationship Condition Age at Onset Recorded Date/T estee mother Diabetes mellitus Unknown Cardiac disease Unknown Hypertension Unknown High blood cholesterol Unknown father Cardiac disease Unknown Cerebrovascular accident (CVA) Unknown Advance Directives Advance Directive Response Recorded Date/ Time Advance Directives No September 10, 2 014 9:26pm Living Will No July 10 4:00pm Power of Slicing Machine Operator No July 10, 2021 4:00pm Advance Directive Response Recorded Date/ Time Advance Directives No September 10, 2 014 9:26pm Living Will No September 16, 2021 3:59pm Power of Slicing Machine Operator No September 16 3:59pm Documents on File 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 Date 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 Advance Directive(s) 11/18/2020 7:50 PM Advance Directive(s) 02/15/2019 10:47 PM Advance Directive(s) 02/01/2019 7:28 AM Advance Directive Response Recorded Date/ Time Advance Directives No September 10, 2 014 9:26pm Living Will No November 01, 2021 2 :27pm Power of Slicing Machine Operator No November 01, 2021 2:27pm Advance Directive Response Recorded Date/ Time Advance Directives No September 10, 2 014 9:26pm Living Will No December 08, 2021 1:40pm Power of Slicing Machine Operator No December 08 1:40pm Advance Directive Response Recorded Date/ Time Advance Directives No September 10, 2 014 9:26pm Living Will No December 12, 2021 6:59pm Power of Slicing Machine Operator No December 12 6:59pm Advance Directive Response Recorded Date/ Time Advance Directives No September 10, 2 014 9:26pm Living Will No December 12, 2021 10:17pm Power of Slicing Machine Operator No December 12 10:17pm Advance Directive Response Recorded Date/ Time Advance Directives No September 10, 2 014 8:26pm Living Will No April 07, 022 3:43pm Power of Slicing Machine Operator No April 07, 2022 3:43pm Advance Directive Response Recorded Date/ Time Advance Directives No September 10, 2 014 8:26pm Living Will No June 07 5:49pm Power of Slicing Machine Operator No June 07, 2022 5:49pm Advance Directive Response Recorded Date/ Time Advance Directives No June 10:49am Living Will No July 13, 2 023 10:49am Power of Slicing Machine Operator No July 13, 2022 10:49am Advance Directive Response Recorded Date/ Time Advance Directives No June 10:49am Living Will No July 19, 2 023 5:02pm Power of Slicing Machine Operator No July 19, 2022 5:02pm Advance Directive Response Recorded Date/ Time Advance Directives No June 11:49am Living Will No July 19, 2 023 6:02pm Power of Slicing Machine Operator No July 19, 2022 6:02pm Advance Directive Response Recorded Date/ Time Name of Medical Power of Slicing Machine Operator HERMINIO HADDAD September 03, 2022 7:13pm Advance Directives No June 11:49am Living Will Yes September 03, 2022 7:13pm Power of Slicing Machine Operator Yes September 03 7:13pm Advance Directive Response Recorded Date/ Time Name of Medical Power of Slicing Machine Operator HERMINIO HADDAD September 03, 2022 7:13pm Advance Directives No June 11:49am Living Will No November 02, 2022 1 1:54pm Power of Slicing Machine Operator No November 02, 2022 11:54pm Advance Directive Response Recorded Date/ Time Name of Medical Power of Slicing Machine Operator HERMINIO HADDAD September 03, 2022 7:13pm Advance Directives No June 11:49am Living Will Yes November 16, 2022 7:08pm Power of Slicing Machine Operator No November 16 7:08pm Advance Directive Response Recorded Date/ Time Name of Medical Power of Slicing Machine Operator HERMINIO HADDAD September 03, 2022 7:13pm Advance Directives No June 11:49am Living Will No December 01, 2022 3 :44pm Power of Slicing Machine Operator No December 01, 2022 3:44pm Advance Directive Response Recorded Date/ Time Advance Directives No June 11:49am Living Will No March 13 4:56pm Power of Slicing Machine Operator No March 13, 2023 4:56pm Advance Directive Response Recorded Date/ Time Name of Medical Power of Slicing Machine Operator Herminio- S.O August 14, 2023 3:18pm Advance Directives No June 11:49am Living Will Yes August 14, 2023 3:18pm Power of Slicing Machine Operator Yes August 13 3:18pm Advance Directive Response Recorded Date/ Time Name of Medical Power of Slicing Machine Operator Herminio- S.O August 14, 2023 3:18pm Advance Directives No June 11:49am Living Will No September 29, 2023 6: 11pm Power of Slicing Machine Operator No September 29, 2023 6:11pm Advance Directive Response Recorded Date/ Time Living Will No July 19, 10:07pm Do you have a Healthcare Power of Slicing Machine Operator? No July 19, 2024 10:07pm Living Will No July 31, 2024 4:29pm Do you have a Healthcare Power of Slicing Machine Operator? No July 31, 2024 4:29pm Do you have a Healthcare Power of Slicing Machine Operator? No September 30, 2024 7:28am Do you have a Healthcare Power of Slicing Machine Operator? No October 13, 2024 5:52pm Advance Directives No June 11:49am Advance Directive Response Recorded Date/ Time Living Will Yes November 29, 2023 8 :16pm Do you have a Healthcare Power of Slicing Machine Operator? No November 29, 2023 8:16pm Living Will No July 31, 2024 4:29pm Do you have a Healthcare Power of Slicing Machine Operator? No July 31, 2024 4:29pm Do you have a Healthcare Power of Slicing Machine Operator? No September 30, 2024 7:28am Do you have a Healthcare Power of Slicing Machine Operator? No October 13, 2024 5:52pm Advance Directives No June 11:49am Advance Directive Response Recorded Date/ Time Living Will No February 11, 2024 10:23pm Do you have a Healthcare Power of Slicing Machine Operator? No February 11, 2024 10:23pm Living Will Yes November 29, 2023 8 :16pm Do you have a Healthcare Power of Slicing Machine Operator? No November 29, 2023 8:16pm Do you have a Healthcare Power of Slicing Machine Operator? No September 30, 2024 7:28am Do you have a Healthcare Power of Slicing Machine Operator? No October 13, 2024 5:52pm Advance Directives No June 11:49am Chief Complaint and Reason for Visit Chief Complaint LEFT FIFTH FINGER left fifth finger LEFT FIFTH FINGER L 5TH FINGER BONY MALLET FINGER. DOI-04/10/21.RX H GENERAL ILLNESS CONTUSION LT INNER THIGH OA SCANNING ONLY 7 month follow up SCREENING MULTIPLE NODULES Reason for Visit Lung 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 on CT Bronchiectasis 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 Diaphragm paralysis Chief Complaint LEFT FIFTH FINGER L 5TH FINGER BONY MALLET FINGER. DOI-04/10/21.RX H GENERAL ILLNESS CONTUSION LT INNER THIGH OA SCANNING ONLY 7 month follow up SCREENING MULTIPLE NODULES PREOP PREOP Reason for Visit Lung 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 on CT Bronchiectasis 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 Diaphragm paralysis Chief Complaint L 5TH FINGER BONY MA LLET FINGER. DOI-04/10/21.RX H GENERAL ILLNESS CONTUSION LT INNER THIGH OA SCANNING ONLY 7 month follow up SCREENING MULTIPLE NODULES PREOP PREOP Reason for Visit Lung 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 on CT Bronchiectasis 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 Diaphragm paralysis Chief Complaint L 5TH FINGER BONY MA LLET FINGER. DOI-04/10/21.RX H GENERAL ILLNESS CONTUSION LT INNER THIGH OA SCANNING ONLY 7 month follow up SCREENING MULTIPLE NODULES PREOP PREOP lower extremity pain Reason for Visit Lung 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 on CT Bronchiectasis 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 Diaphragm paralysis Chief Complaint 7 month follow up SCREENING MULTIPLE NODULES PREOP PREOP lower extremity pain TOE INJURY Reason for Visit Lung 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 on CT Bronchiectasis 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 Diaphragm paralysis Chief Complaint 7 month follow up SCREENING MULTIPLE NODULES PREOP PREOP lower extremity pain TOE INJURY WOUND L FOOT CELLUITIS Reason for Visit Lung 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 on CT Bronchiectasis 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 Diaphragm paralysis Cellulitis of foot, left Chief Complaint 7 month follow up SCREENING MULTIPLE NODULES PREOP PREOP lower extremity pain TOE INJURY WOUND L FOOT CELLUITIS L FOOT CELLUITIS Reason for Visit Lung 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 on CT Bronchiectasis 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 Diaphragm paralysis Cellulitis of foot, left Contusion of great toe, left Infection of great toe Traumatic avulsion of nail plate of toe Chief Complaint GENERAL ILLNESS NICOTENE DEPENDENCE 6 M FU 1 M FU PAIN NEED ORDER Reason for Visit 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 Tobacco abuse 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 Chief Complaint 6 M FU 1 M FU PAIN NEED ORDER TIA TIA (cardiology) Reason for Visit 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 Tobacco abuse 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 TIA (transient ischemic attack) Chief Complaint 1 M FU PAIN NEED ORDER TIA CP TIA (cardiology) TIA Amb Documentation SHOULDER ABN HOLTER ABNORMAL HOLTER MONITOR Reason for Visit 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 TIA (transient ischemic attack) Chest pain Essential hypertension Sinus pause TIA (transient ischemic attack) Chief Complaint PAIN NEED ORDER TIA CP TIA (cardiology) TIA Amb Documentation SHOULDER ABN HOLTER ABNORMAL HOLTER MONITOR CERVICALGIA FALL Reason for Visit TIA (transient ische herbie attack) Chest pain Essential hypertension Sinus pause TIA (transient ischemic attack) Chief Complaint PAIN NEED ORDER TIA CP TIA (cardiology) TIA Amb Documentation SHOULDER ABN HOLTER ABNORMAL HOLTER MONITOR CERVICALGIA FALL RIGHT SHOULDER Reason for Visit TIA (transient ische herbie attack) Chest pain Essential hypertension Sinus pause TIA (transient ischemic attack) Internal impingement of right shoulder Chief Complaint TIA CP TIA (cardiology) TIA Amb Documentation SHOULDER ABN HOLTER ABNORMAL HOLTER MONITOR [place]ERVICAL[place]IA FALL RIGHT SHOULDER R SHOULDER IMPINGEMENT INTERNAL RX Reason for Visit TIA (transient ische herbie attack) Chest pain Essential hypertension Sinus pause TIA (transient ischemic attack) Internal impingement of right shoulder Chief Complaint TIA CP TIA (cardiology) TIA Amb Documentation SHOULDER ABN HOLTER ABNORMAL HOLTER MONITOR CERVICALGIA FALL RIGHT SHOULDER R SHOULDER IMPINGEMENT INTERNAL RX COUGH Reason for Visit TIA (transient ische herbie attack) Chest pain Essential hypertension Sinus pause TIA (transient ischemic attack) Internal impingement of right shoulder Chief Complaint ABNORMAL HOLTER BHARATH TOR CERVICALGIA FALL RIGHT SHOULDER R SHOULDER IMPINGEMENT INTERNAL RX COUGH 6 M FU 3 M FU ABD PAIN CHEST PAIN Reason for Visit Internal impingement of right shoulder 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 Essential hypertension Sinus pause TIA (transient ischemic attack) Chief Complaint FALL RIGHT SHOULDER R SHOULDER IMPINGEMENT INTERNAL RX COUGH 6 M FU 3 M FU ABD PAIN CHEST PAIN BACK Reason for Visit Internal impingement of right shoulder 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 Essential hypertension Sinus pause TIA (transient ischemic attack) Chief Complaint R SHOULDER IMPINGEME NT INTERNAL RX COUGH 6 M FU 3 M FU ABD PAIN CHEST PAIN BACK PAIN TO LEFT BUTTOCKS Reason for Visit 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 Essential hypertension Sinus pause TIA (transient ischemic attack) Chief Complaint BACK PAIN TO LEFT BUTTOCKS 3 M FU FLANK Reason for Visit Lung 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 on CT 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 Chief Complaint 6 M FU DIZZINESS Reason for Visit Lung 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 on CT 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 Chief Complaint 6 M FU DIZZINESS KNOT ON LEG Reason for Visit Lung 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 on CT 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 Chief Complaint Admit Date chest, other July 19, 2024 7:07pm ABD PAIN July 31, 2024 2:57 pm abd September 30, 2024 7:28am ABD PAIN October 13, 2024 5:05p m Chief Complaint Admit Date ABD PAIN July 31, 2024 2:57 pm abd September 30, 2024 7:28am ABD PAIN October 13, 2024 5:05p m NICOTINE DEPENDENCE November 18, 2024 12:3 7pm Chief Complaint Admit Date abd September 30, 2024 7:28am ABD PAIN October 13, 2024 5:05p m NICOTINE DEPENDENCE November 18, 2024 12:3 7pm 9 M FU December 05, 2024 1:54 pm Reason for Visit Admit Date Chronic hypoxic respiratory failure December 05, 2024 1:54pm Lung nodule December 05, 2024 1:54 pm 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 classificati on December 05, 2024 1:54pm Health Concerns Infection Onset Date Last Indicated Resolved Time COVID-19 Rule-Out 09/28/2021 09/28/2021 09/29/2021 1:51 AM EDT Reason for Referral Specialty Diagnoses / Procedures Referred By Contac t Referred To Contact Pain Management Diagnoses Coccyodynia Procedures CONSULT TO PAIN MGT OFFICE/OUTPATIENT NEW HIGH MDM 60-74 MINUTES [employer]MENT[employer] ADVISOR [address] [place] [address] Referral ID Status Reason Start Date Expiration Date Visits Requested Visits Authorized [id number] Authorized PCP Requested Referral 12/23/2022 12/23/2023 1 1 Specialty Diagnoses / Procedures Referred By Contac t Referred To Contact CT IMAGING Diagnoses Lung nodules Procedures CT CHEST WO IVCON DIAGNOSTIC COMPUTED TOMOGRAPHY THORAX W/O CNTRST Nova Falk SHELL PLATER.ENVIRONMENTAL PROJECTS ADVISOR [address] [place] [address] Ct Imaging [id number] Referral ID Status Reason Start Date Expiration Date Visits Requested Visits Authorized [id number] Authorized Auto-Generat ed Referral 02/07/2023 03/08/2024 1 1 Referral ID Status Reason Start Date Expiration Date V isits Requested Visits Authorized [id number] Closed Auto-Generate d Referral 02/07/2023 03/08/2024 1 1 Specialty Diagnoses / Procedures Referred By Contac t Referred To Contact [facility] Diagnoses Benign paroxysmal positional vertigo of right ear Procedures CONSULT TO PHYSICAL THERAPY PHYSICAL THERAPY EVALUATION HIGH COMPLEX 45 MINS Tatiana Ronquillo MD [address] [place] [address] [facility] [place] [address] [place] [address] Referral ID Status Reason Start Date Expiration Date Visits Requested Visits Authorized [id number] Authorized Auto-Generat ed Referral 05/29/2023 05/28/2024 99 99 Specialty Diagnoses / Procedures Referred By Contac t Referred To Contact CT IMAGING Diagnoses Nausea Right lower quadrant abdominal pain Procedures CT ABD/PEL W IVCON CT ABD & PELVIS W/CONTRAST Sabine Crowley, SHELL PLATER.ENVIRONMENTAL PROJECTS ADVISOR [address] [place] [address] [place] [id number] Referral ID Status Reason Start Date Expiration Date V isits Requested Visits Authorized [id number] Closed Auto-Generate d Referral 04/18/2024 05/18/2025 1 1 Additional Source Comments INFORMATION SOURCE (unrecogn ized section and content) DATE CREATED AUTHOR 03/08/2019 [facility] DATE CREATED AUTHOR AUTHOR'S ORGANIZ ATION 03/18/2023 [facility] DATE CREATED AUTHOR AUTHOR'S ORGANIZ ATION 04/21/2024 [facility] DATE CREATED AUTHOR AUTHOR'S ORGANIZ ATION 05/20/2024 [facility] DATE CREATED AUTHOR AUTHOR'S ORGANIZ ATION 10/27/2024 [facility] DATE CREATED AUTHOR AUTHOR'S ORGANIZ ATION 12/09/2024 [place] Goals (unrecognized section and content) Goals may be documented in a n alternate sectionGoals may be documented in an alternate sectionGoals may be documented in an alternate sectionGoals may be documented in an alternate sectionGoals may be documented in an alternate sectionGoals may be documented in an alternate sectionGoals may be documented in an alternate sectionGoals may be documented in an alternate sectionGoals may be documented in an alternate sectionGoals may be documented in an alternate sectionGoals may be documented in an alternate sectionGoals may be documented in an alternate sectionGoals may be documented in an alternate sectionGoals may be documented in an alternate sectionGoals may be documented in an alternate sectionGoals may be documented in an alternate sectionGoals may be documented in an alternate sectionGoals may be documented in an alternate sectionGoals may be documented in an alternate sectionGoals may be documented in an alternate section Source Comments (unrecognize d section and content) In the event this informatio n is protected by the Federal Confidentiality of Alcohol and Drug Abuse Patient Records regulations: The Federal rules restrict any use of the information to criminally investigate or prosecute any alcohol or drug abuse patient.[facility] HospitalIn the event this information is protected by the Federal Confidentiality of Alcohol and Drug Abuse Patient Records regulations: The Federal rules restrict any use of the information to criminally investigate or prosecute any alcohol or drug abuse patient.[facility] HospitalIn the event this information is protected by the Federal Confidentiality of Alcohol and Drug Abuse Patient Records regulations: The Federal rules restrict any use of the information to criminally investigate or prosecute any alcohol or drug abuse patient.[facility] HospitalIn the event this information is protected by the Federal Confidentiality of Alcohol and Drug Abuse Patient Records regulations: The Federal rules restrict any use of the information to criminally investigate or prosecute any alcohol or drug abuse patient.[facility] HospitalIn the event this information is protected by the Federal Confidentiality of Alcohol and Drug Abuse Patient Records regulations: The Federal rules restrict any use of the information to criminally investigate or prosecute any alcohol or drug abuse patient.[facility] HospitalIn the event this information is protected by the Federal Confidentiality of Alcohol and Drug Abuse Patient Records regulations: The Federal rules restrict any use of the information to criminally investigate or prosecute any alcohol or drug abuse patient.[facility] HospitalIn the event this information is protected by the Federal Confidentiality of Alcohol and Drug Abuse Patient Records regulations: The Federal rules restrict any use of the information to criminally investigate or prosecute any alcohol or drug abuse patient.[facility] HospitalIn the event this information is protected by the Federal Confidentiality of Alcohol and Drug Abuse Patient Records regulations: The Federal rules restrict any use of the information to criminally investigate or prosecute any alcohol or drug abuse patient.[facility] HospitalIn the event this information is protected by the Federal Confidentiality of Alcohol and Drug Abuse Patient Records regulations: The Federal rules restrict any use of the information to criminally investigate or prosecute any alcohol or drug abuse patient.[facility] HospitalIn the event this information is protected by the Federal Confidentiality of Alcohol and Drug Abuse Patient Records regulations: The Federal rules restrict any use of the information to criminally investigate or prosecute any alcohol or drug abuse patient.[facility] HospitalIn the event this information is protected by the Federal Confidentiality of Alcohol and Drug Abuse Patient Records regulations: The Federal rules restrict any use of the information to criminally investigate or prosecute any alcohol or drug abuse patient.[facility] HospitalIn the event this information is protected by the Federal Confidentiality of Alcohol and Drug Abuse Patient Records regulations: The Federal rules restrict any use of the information to criminally investigate or prosecute any alcohol or drug abuse patient.[facility] HospitalIn the event this information is protected by the Federal Confidentiality of Alcohol and Drug Abuse Patient Records regulations: The Federal rules restrict any use of the information to criminally investigate or prosecute any alcohol or drug abuse patient.[facility] HospitalIn the event this information is protected by the Federal Confidentiality of Alcohol and Drug Abuse Patient Records regulations: The Federal rules restrict any use of the information to criminally investigate or prosecute any alcohol or drug abuse patient.[facility] HospitalIn the event this information is protected by the Federal Confidentiality of Alcohol and Drug Abuse Patient Records regulations: The Federal rules restrict any use of the information to criminally investigate or prosecute any alcohol or drug abuse patient.[facility] HospitalIn the event this information is protected by the Federal Confidentiality of Alcohol and Drug Abuse Patient Records regulations: The Federal rules restrict any use of the information to criminally investigate or prosecute any alcohol or drug abuse patient.[facility] HospitalIn the event this information is protected by the Federal Confidentiality of Alcohol and Drug Abuse Patient Records regulations: The Federal rules restrict any use of the information to criminally investigate or prosecute any alcohol or drug abuse patient.[facility] HospitalIn the event this information is protected by the Federal Confidentiality of Alcohol and Drug Abuse Patient Records regulations: The Federal rules restrict any use of the information to criminally investigate or prosecute any alcohol or drug abuse patient.[facility] HospitalIn the event this information is protected by the Federal Confidentiality of Alcohol and Drug Abuse Patient Records regulations: The Federal rules restrict any use of the information to criminally investigate or prosecute any alcohol or drug abuse patient.[facility] HospitalIn the event this information is protected by the Federal Confidentiality of Alcohol and Drug Abuse Patient Records regulations: The Federal rules restrict any use of the information to criminally investigate or prosecute any alcohol or drug abuse patient.[facility] HospitalIn the event this information is protected by the Federal Confidentiality of Alcohol and Drug Abuse Patient Records regulations: The Federal rules restrict any use of the information to criminally investigate or prosecute any alcohol or drug abuse patient.[facility] HospitalIn the event this information is protected by the Federal Confidentiality of Alcohol and Drug Abuse Patient Records regulations: The Federal rules restrict any use of the information to criminally investigate or prosecute any alcohol or drug abuse patient.[facility] HospitalIn the event this information is protected by the Federal Confidentiality of Alcohol and Drug Abuse Patient Records regulations: The Federal rules restrict any use of the information to criminally investigate or prosecute any alcohol or drug abuse patient.[facility] HospitalIn the event this information is protected by the Federal Confidentiality of Alcohol and Drug Abuse Patient Records regulations: The Federal rules restrict any use of the information to criminally investigate or prosecute any alcohol or drug abuse patient.[facility] HospitalIn the event this information is protected by the Federal Confidentiality of Alcohol and Drug Abuse Patient Records regulations: The Federal rules restrict any use of the information to criminally investigate or prosecute any alcohol or drug abuse patient.[facility] HospitalIn the event this information is protected by the Federal Confidentiality of Alcohol and Drug Abuse Patient Records regulations: The Federal rules restrict any use of the information to criminally investigate or prosecute any alcohol or drug abuse patient.[facility] HospitalIn the event this information is protected by the Federal Confidentiality of Alcohol and Drug Abuse Patient Records regulations: The Federal rules restrict any use of the information to criminally investigate or prosecute any alcohol or drug abuse patient.[facility] HospitalIn the event this information is protected by the Federal Confidentiality of Alcohol and Drug Abuse Patient Records regulations: The Federal rules restrict any use of the information to criminally investigate or prosecute any alcohol or drug abuse patient.[facility] HospitalIn the event this information is protected by the Federal Confidentiality of Alcohol and Drug Abuse Patient Records regulations: The Federal rules restrict any use of the information to criminally investigate or prosecute any alcohol or drug abuse patient.[facility] HospitalIn the event this information is protected by the Federal Confidentiality of Alcohol and Drug Abuse Patient Records regulations: The Federal rules restrict any use of the information to criminally investigate or prosecute any alcohol or drug abuse patient.[facility] HospitalIn the event this information is protected by the Federal Confidentiality of Alcohol and Drug Abuse Patient Records regulations: The Federal rules restrict any use of the information to criminally investigate or prosecute any alcohol or drug abuse patient.[facility] HospitalIn the event this information is protected by the Federal Confidentiality of Alcohol and Drug Abuse Patient Records regulations: The Federal rules restrict any use of the information to criminally investigate or prosecute any alcohol or drug abuse patient.[facility] HospitalIn the event this information is protected by the Federal Confidentiality of Alcohol and Drug Abuse Patient Records regulations: The Federal rules restrict any use of the information to criminally investigate or prosecute any alcohol or drug abuse patient.[facility] HospitalIn the event this information is protected by the Federal Confidentiality of Alcohol and Drug Abuse Patient Records regulations: The Federal rules restrict any use of the information to criminally investigate or prosecute any alcohol or drug abuse patient.[facility] HospitalIn the event this information is protected by the Federal Confidentiality of Alcohol and Drug Abuse Patient Records regulations: The Federal rules restrict any use of the information to criminally investigate or prosecute any alcohol or drug abuse patient.[facility] HospitalIn the event this information is protected by the Federal Confidentiality of Alcohol and Drug Abuse Patient Records regulations: The Federal rules restrict any use of the information to criminally investigate or prosecute any alcohol or drug abuse patient.[facility] HospitalIn the event this information is protected by the Federal Confidentiality of Alcohol and Drug Abuse Patient Records regulations: The Federal rules restrict any use of the information to criminally investigate or prosecute any alcohol or drug abuse patient.[facility] HospitalIn the event this information is protected by the Federal Confidentiality of Alcohol and Drug Abuse Patient Records regulations: The Federal rules restrict any use of the information to criminally investigate or prosecute any alcohol or drug abuse patient.[facility] HospitalIn the event this information is protected by the Federal Confidentiality of Alcohol and Drug Abuse Patient Records regulations: The Federal rules restrict any use of the information to criminally investigate or prosecute any alcohol or drug abuse patient.[facility] HospitalIn the event this information is protected by the Federal Confidentiality of Alcohol and Drug Abuse Patient Records regulations: The Federal rules restrict any use of the information to criminally investigate or prosecute any alcohol or drug abuse patient.[facility] HospitalIn the event this information is protected by the Federal Confidentiality of Alcohol and Drug Abuse Patient Records regulations: The Federal rules restrict any use of the information to criminally investigate or prosecute any alcohol or drug abuse patient.[facility] HospitalIn the event this information is protected by the Federal Confidentiality of Alcohol and Drug Abuse Patient Records regulations: The Federal rules restrict any use of the information to criminally investigate or prosecute any alcohol or drug abuse patient.[facility] HospitalIn the event this information is protected by the Federal Confidentiality of Alcohol and Drug Abuse Patient Records regulations: The Federal rules restrict any use of the information to criminally investigate or prosecute any alcohol or drug abuse patient.[facility] HospitalIn the event this information is protected by the Federal Confidentiality of Alcohol and Drug Abuse Patient Records regulations: The Federal rules restrict any use of the information to criminally investigate or prosecute any alcohol or drug abuse patient.[facility] HospitalIn the event this information is protected by the Federal Confidentiality of Alcohol and Drug Abuse Patient Records regulations: The Federal rules restrict any use of the information to criminally investigate or prosecute any alcohol or drug abuse patient.[facility] HospitalIn the event this information is protected by the Federal Confidentiality of Alcohol and Drug Abuse Patient Records regulations: The Federal rules restrict any use of the information to criminally investigate or prosecute any alcohol or drug abuse patient.[facility] HospitalIn the event this information is protected by the Federal Confidentiality of Alcohol and Drug Abuse Patient Records regulations: The Federal rules restrict any use of the information to criminally investigate or prosecute any alcohol or drug abuse patient.[facility] HospitalIn the event this information is protected by the Federal Confidentiality of Alcohol and Drug Abuse Patient Records regulations: The Federal rules restrict any use of the information to criminally investigate or prosecute any alcohol or drug abuse patient.[facility] HospitalIn the event this information is protected by the Federal Confidentiality of Alcohol and Drug Abuse Patient Records regulations: The Federal rules restrict any use of the information to criminally investigate or prosecute any alcohol or drug abuse patient.[facility] HospitalIn the event this information is protected by the Federal Confidentiality of Alcohol and Drug Abuse Patient Records regulations: The Federal rules restrict any use of the information to criminally investigate or prosecute any alcohol or drug abuse patient.[facility] HospitalIn the event this information is protected by the Federal Confidentiality of Alcohol and Drug Abuse Patient Records regulations: The Federal rules restrict any use of the information to criminally investigate or prosecute any alcohol or drug abuse patient.[facility] HospitalIn the event this information is protected by the Federal Confidentiality of Alcohol and Drug Abuse Patient Records regulations: The Federal rules restrict any use of the information to criminally investigate or prosecute any alcohol or drug abuse patient.[facility] HospitalIn the event this information is protected by the Federal Confidentiality of Alcohol and Drug Abuse Patient Records regulations: The Federal rules restrict any use of the information to criminally investigate or prosecute any alcohol or drug abuse patient.[facility] HospitalIn the event this information is protected by the Federal Confidentiality of Alcohol and Drug Abuse Patient Records regulations: The Federal rules restrict any use of the information to criminally investigate or prosecute any alcohol or drug abuse patient.[facility] HospitalIn the event this information is protected by the Federal Confidentiality of Alcohol and Drug Abuse Patient Records regulations: The Federal rules restrict any use of the information to criminally investigate or prosecute any alcohol or drug abuse patient.[facility] HospitalIn the event this information is protected by the Federal Confidentiality of Alcohol and Drug Abuse Patient Records regulations: The Federal rules restrict any use of the information to criminally investigate or prosecute any alcohol or drug abuse patient.[facility] HospitalIn the event this information is protected by the Federal Confidentiality of Alcohol and Drug Abuse Patient Records regulations: The Federal rules restrict any use of the information to criminally investigate or prosecute any alcohol or drug abuse patient.[facility] HospitalIn the event this information is protected by the Federal Confidentiality of Alcohol and Drug Abuse Patient Records regulations: The Federal rules restrict any use of the information to criminally investigate or prosecute any alcohol or drug abuse patient.[facility] HospitalIn the event this information is protected by the Federal Confidentiality of Alcohol and Drug Abuse Patient Records regulations: The Federal rules restrict any use of the information to criminally investigate or prosecute any alcohol or drug abuse patient.[facility] HospitalIn the event this information is protected by the Federal Confidentiality of Alcohol and Drug Abuse Patient Records regulations: The Federal rules restrict any use of the information to criminally investigate or prosecute any alcohol or drug abuse patient.[facility] HospitalIn the event this information is protected by the Federal Confidentiality of Alcohol and Drug Abuse Patient Records regulations: The Federal rules restrict any use of the information to criminally investigate or prosecute any alcohol or drug abuse patient.[facility] HospitalIn the event this information is protected by the Federal Confidentiality of Alcohol and Drug Abuse Patient Records regulations: The Federal rules restrict any use of the information to criminally investigate or prosecute any alcohol or drug abuse patient.[facility] HospitalIn the event this information is protected by the Federal Confidentiality of Alcohol and Drug Abuse Patient Records regulations: The Federal rules restrict any use of the information to criminally investigate or prosecute any alcohol or drug abuse patient.[facility] HospitalIn the event this information is protected by the Federal Confidentiality of Alcohol and Drug Abuse Patient Records regulations: The Federal rules restrict any use of the information to criminally investigate or prosecute any alcohol or drug abuse patient.[facility] HospitalIn the event this information is protected by the Federal Confidentiality of Alcohol and Drug Abuse Patient Records regulations: The Federal rules restrict any use of the information to criminally investigate or prosecute any alcohol or drug abuse patient.[facility] HospitalIn the event this information is protected by the Federal Confidentiality of Alcohol and Drug Abuse Patient Records regulations: The Federal rules restrict any use of the information to criminally investigate or prosecute any alcohol or drug abuse patient.[facility] HospitalIn the event this information is protected by the Federal Confidentiality of Alcohol and Drug Abuse Patient Records regulations: The Federal rules restrict any use of the information to criminally investigate or prosecute any alcohol or drug abuse patient.[facility] HospitalIn the event this information is protected by the Federal Confidentiality of Alcohol and Drug Abuse Patient Records regulations: The Federal rules restrict any use of the information to criminally investigate or prosecute any alcohol or drug abuse patient.[facility] HospitalIn the event this information is protected by the Federal Confidentiality of Alcohol and Drug Abuse Patient Records regulations: The Federal rules restrict any use of the information to criminally investigate or prosecute any alcohol or drug abuse patient.[facility] HospitalIn the event this information is protected by the Federal Confidentiality of Alcohol and Drug Abuse Patient Records regulations: The Federal rules restrict any use of the information to criminally investigate or prosecute any alcohol or drug abuse patient.[facility] HospitalIn the event this information is protected by the Federal Confidentiality of Alcohol and Drug Abuse Patient Records regulations: The Federal rules restrict any use of the information to criminally investigate or prosecute any alcohol or drug abuse patient.[facility] HospitalIn the event this information is protected by the Federal Confidentiality of Alcohol and Drug Abuse Patient Records regulations: The Federal rules restrict any use of the information to criminally investigate or prosecute any alcohol or drug abuse patient.[facility] HospitalIn the event this information is protected by the Federal Confidentiality of Alcohol and Drug Abuse Patient Records regulations: The Federal rules restrict any use of the information to criminally investigate or prosecute any alcohol or drug abuse patient.[facility] HospitalIn the event this information is protected by the Federal Confidentiality of Alcohol and Drug Abuse Patient Records regulations: The Federal rules restrict any use of the information to criminally investigate or prosecute any alcohol or drug abuse patient.[facility] HospitalIn the event this information is protected by the Federal Confidentiality of Alcohol and Drug Abuse Patient Records regulations: The Federal rules restrict any use of the information to criminally investigate or prosecute any alcohol or drug abuse patient.[facility] HospitalIn the event this information is protected by the Federal Confidentiality of Alcohol and Drug Abuse Patient Records regulations: The Federal rules restrict any use of the information to criminally investigate or prosecute any alcohol or drug abuse patient.[facility] HospitalIn the event this information is protected by the Federal Confidentiality of Alcohol and Drug Abuse Patient Records regulations: The Federal rules restrict any use of the information to criminally investigate or prosecute any alcohol or drug abuse patient.[facility] HospitalIn the event this information is protected by the Federal Confidentiality of Alcohol and Drug Abuse Patient Records regulations: The Federal rules restrict any use of the information to criminally investigate or prosecute any alcohol or drug abuse patient.[facility] HospitalIn the event this information is protected by the Federal Confidentiality of Alcohol and Drug Abuse Patient Records regulations: The Federal rules restrict any use of the information to criminally investigate or prosecute any alcohol or drug abuse patient.[facility] HospitalIn the event this information is protected by the Federal Confidentiality of Alcohol and Drug Abuse Patient Records regulations: The Federal rules restrict any use of the information to criminally investigate or prosecute any alcohol or drug abuse patient.[facility] HospitalIn the event this information is protected by the Federal Confidentiality of Alcohol and Drug Abuse Patient Records regulations: The Federal rules restrict any use of the information to criminally investigate or prosecute any alcohol or drug abuse patient.[facility] HospitalIn the event this information is protected by the Federal Confidentiality of Alcohol and Drug Abuse Patient Records regulations: The Federal rules restrict any use of the information to criminally investigate or prosecute any alcohol or drug abuse patient.[facility] HospitalIn the event this information is protected by the Federal Confidentiality of Alcohol and Drug Abuse Patient Records regulations: The Federal rules restrict any use of the information to criminally investigate or prosecute any alcohol or drug abuse patient.[facility] HospitalIn the event this information is protected by the Federal Confidentiality of Alcohol and Drug Abuse Patient Records regulations: The Federal rules restrict any use of the information to criminally investigate or prosecute any alcohol or drug abuse patient.[facility] HospitalIn the event this information is protected by the Federal Confidentiality of Alcohol and Drug Abuse Patient Records regulations: The Federal rules restrict any use of the information to criminally investigate or prosecute any alcohol or drug abuse patient.[facility] HospitalIn the event this information is protected by the Federal Confidentiality of Alcohol and Drug Abuse Patient Records regulations: The Federal rules restrict any use of the information to criminally investigate or prosecute any alcohol or drug abuse patient.[facility] HospitalIn the event this information is protected by the Federal Confidentiality of Alcohol and Drug Abuse Patient Records regulations: The Federal rules restrict any use of the information to criminally investigate or prosecute any alcohol or drug abuse patient.[facility] HospitalIn the event this information is protected by the Federal Confidentiality of Alcohol and Drug Abuse Patient Records regulations: The Federal rules restrict any use of the information to criminally investigate or prosecute any alcohol or drug abuse patient.[facility] HospitalIn the event this information is protected by the Federal Confidentiality of Alcohol and Drug Abuse Patient Records regulations: The Federal rules restrict any use of the information to criminally investigate or prosecute any alcohol or drug abuse patient.[facility] HospitalIn the event this information is protected by the Federal Confidentiality of Alcohol and Drug Abuse Patient Records regulations: The Federal rules restrict any use of the information to criminally investigate or prosecute any alcohol or drug abuse patient.[facility] HospitalIn the event this information is protected by the Federal Confidentiality of Alcohol and Drug Abuse Patient Records regulations: The Federal rules restrict any use of the information to criminally investigate or prosecute any alcohol or drug abuse patient.[facility] HospitalIn the event this information is protected by the Federal Confidentiality of Alcohol and Drug Abuse Patient Records regulations: The Federal rules restrict any use of the information to criminally investigate or prosecute any alcohol or drug abuse patient.[facility] HospitalIn the event this information is protected by the Federal Confidentiality of Alcohol and Drug Abuse Patient Records regulations: The Federal rules restrict any use of the information to criminally investigate or prosecute any alcohol or drug abuse patient.[facility] HospitalIn the event this information is protected by the Federal Confidentiality of Alcohol and Drug Abuse Patient Records regulations: The Federal rules restrict any use of the information to criminally investigate or prosecute any alcohol or drug abuse patient.German HospitalIn the event this information is protected by the Federal Confidentiality of Alcohol and Drug Abuse Patient Records regulations: The Federal rules restrict any use of the information to criminally investigate or prosecute any alcohol or drug abuse patient.[facility] HospitalIn the event this information is protected by the Federal Confidentiality of Alcohol and Drug Abuse Patient Records regulations: The Federal rules restrict any use of the information to criminally investigate or prosecute any alcohol or drug abuse patient.[facility] HospitalIn the event this information is protected by the Federal Confidentiality of Alcohol and Drug Abuse Patient Records regulations: The Federal rules restrict any use of the information to criminally investigate or prosecute any alcohol or drug abuse patient.[facility] HospitalIn the event this information is protected by the Federal Confidentiality of Alcohol and Drug Abuse Patient Records regulations: The Federal rules restrict any use of the information to criminally investigate or prosecute any alcohol or drug abuse patient.[facility] HospitalIn the event this information is protected by the Federal Confidentiality of Alcohol and Drug Abuse Patient Records regulations: The Federal rules restrict any use of the information to criminally investigate or prosecute any alcohol or drug abuse patient.[facility] HospitalIn the event this information is protected by the Federal Confidentiality of Alcohol and Drug Abuse Patient Records regulations: The Federal rules restrict any use of the information to criminally investigate or prosecute any alcohol or drug abuse patient.[facility] HospitalIn the event this information is protected by the Federal Confidentiality of Alcohol and Drug Abuse Patient Records regulations: The Federal rules restrict any use of the information to criminally investigate or prosecute any alcohol or drug abuse patient.[facility] HospitalIn the event this information is protected by the Federal Confidentiality of Alcohol and Drug Abuse Patient Records regulations: The Federal rules restrict any use of the information to criminally investigate or prosecute any alcohol or drug abuse patient.[facility] HospitalIn the event this information is protected by the Federal Confidentiality of Alcohol and Drug Abuse Patient Records regulations: The Federal rules restrict any use of the information to criminally investigate or prosecute any alcohol or drug abuse patient.[facility] HospitalIn the event this information is protected by the Federal Confidentiality of Alcohol and Drug Abuse Patient Records regulations: The Federal rules restrict any use of the information to criminally investigate or prosecute any alcohol or drug abuse patient.[facility] HospitalIn the event this information is protected by the Federal Confidentiality of Alcohol and Drug Abuse Patient Records regulations: The Federal rules restrict any use of the information to criminally investigate or prosecute any alcohol or drug abuse patient.[facility] HospitalIn the event this information is protected by the Federal Confidentiality of Alcohol and Drug Abuse Patient Records regulations: The Federal rules restrict any use of the information to criminally investigate or prosecute any alcohol or drug abuse patient.[facility] HospitalIn the event this information is protected by the Federal Confidentiality of Alcohol and Drug Abuse Patient Records regulations: The Federal rules restrict any use of the information to criminally investigate or prosecute any alcohol or drug abuse patient.[facility] HospitalIn the event this information is protected by the Federal Confidentiality of Alcohol and Drug Abuse Patient Records regulations: The Federal rules restrict any use of the information to criminally investigate or prosecute any alcohol or drug abuse patient.[facility] Reason for Visit (unrecogniz ed section and content) Reason Comments PT Discharge Specialty Diagnoses / Procedures Referred By Contac t Referred To Contact Physical Therapy / PHYSICAL THERAPY Diagnoses Falls frequently [R29.6] Knee gives out, right [M25.361 Procedures EST RS PT GAIT Tatiana Ronquillo MD [address] [place] [address] Yamile Cordero, PT Referral ID Status Reason Start Date Expiration Date V isits Requested Visits Authorized [id number] Authorized 05/29/2024 05/28/2025 99 99 Reason Comments Physical Therapy Reason Comments PT Eval Patient Education Specialty Diagnoses / Procedures Referred By Contac t Referred To Contact [facility] Diagnoses Benign paroxysmal positional vertigo of right ear Procedures CONSULT TO PHYSICAL THERAPY PHYSICAL THERAPY EVALUATION HIGH COMPLEX 45 MINS Tatiana Ronquillo MD [address] [place] [address] [facility] [address] [place] [address] Referral ID Status Reason Start Date Expiration Date Visits Requested Visits Authorized [id number] Authorized Auto-Generat ed Referral 05/29/2023 05/28/2024 99 99 Reason Comments Results Reason Comments Refill Request Reason Comments New Patient Evaluation Specialty Diagnoses / Procedures Referred By France t Referred To Contact Plastic Surgery / PLASTIC SURGERY Diagnoses NEW painful indent/bruise/closed wound on her leg Procedures NEW DPSI MD Bryan Rivershari, Jeff Field MD [address] [address] Referral ID Status Reason Start Date Expiration Date Visits Re quested Visits Authorized [id number] Closed 12/28/2021 05/28/2022 1 1 Reason Comments Follow Up Nail Avulsion Specialty Diagnoses / Procedures Referred By Contac t Referred To Contact Podiatry / PODIATRY Diagnoses [facility] follow up Procedures GREG EST PODI Lj De Santiago [address] [place] [address] Lj De Santiago [address] [place] [address] Referral ID Status Reason Start Date Expiration Date Visits Re quested Visits Authorized [id number] Closed 12/29/2021 05/28/2022 1 1 Reason Comments Post Op Reason Comments Other Reason Comments UTI Reason Comments Established Patient Follow-Up Reason Comments Results Reason Comments Established Patient Reason Comments Medication Problem Reason Comments Consult lung cancer screenin g Specialty Diagnoses / Procedures Referred By Contac t Referred To Contact Diagnoses Encounter for screening for lung cancer Procedures CONSULT LUNG CANCER SCREENING CLINIC Tatiana Ronquillo MD [address] [place] [address] Referral ID Status Reason Start Date Expiration Date Visits Requested Visits Authorized [id number] Ref Not Required PCP Requested Referral 01/26/2023 04/26/2023 1 1 Reason Comments Results Medication Problem Reason Comments Results Reason Comments PT Eval Specialty Diagnoses / Procedures Referred By Contac t Referred To Contact [facility] Diagnoses Coccyodynia Lumbar spondylosis Procedures CONSULT TO PHYSICAL THERAPY PHYSICAL THERAPY EVALUATION HIGH COMPLEX 45 MINS Neal Guevara MD [address] [address] [facility] [address] [place] [address] Referral ID Status Reason Start Date Expiration Date Visits Requested Visits Authorized [id number] Pending Review Auto-Generat ed Referral 02/23/2023 02/23/2024 1 1 Reason Comments Medication Problem Fosamax Reason Onset Date Comments Refill Request 03/03/2023 Reason Comments Medication Question Reason Comments Medication Problem [facility] 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 Reason Onset Date Comments Refill Request 03/15/[address] Specialty Diagnoses / Procedures Referred By Contac t Referred To Contact CT IMAGING Diagnoses Lung nodules Procedures CT CHEST WO IVCON DIAGNOSTIC COMPUTED TOMOGRAPHY THORAX W/O CNTRST Nova Falk, SHELL PLATER.ENVIRONMENTAL PROJECTS ADVISOR [address] [place] [address] [place] [address] Referral ID Status Reason Start Date Expiration Date V isits Requested Visits Authorized [id number] Closed Auto-Generate d Referral 02/07/2023 03/08/2024 1 1 Reason Onset Date Comments Refill Request 05/12/2023 Reason Comments Radiology US Specialty Diagnoses / Procedures Referred By Contac t Referred To Contact US IMAGING Diagnoses Stage 3a chronic kidney disease (HCC) Procedures US KIDNEY/BLADDER US RETROPERITONEAL REAL TIME W/IMAGE COMPLETE Tatiana Ronquillo MD [address] [place] [address] [place] [address] Referral ID Status Reason Start Date Expiration Date V isits Requested Visits Authorized [id number] Closed Auto-Generate d Referral 07/28/2023 08/26/2024 1 1 Reason Comments Balance Reason Comments Consult [facility] Specialty Diagnoses / Procedures Referred By France t Referred To Contact General Surgery Diagnoses Screening for colon cancer History of colonic polyps Procedures CONSULT TO GENERAL SURGERY OFFICE/OUTPATIENT [facility] 60 MINUTES Tatiana Ronquillo MD [address] [place] [address] Referral ID Status Reason Start Date Expiration Date V isits Requested Visits Authorized [id number] Closed PCP Requested Referral 07/27/2023 07/26/2024 1 1 Reason Onset Date Comments Refill Request 09/07/2023 Reason Comments Dizziness Continues/ with cont inuous ringing in right ear Refill Request antivert Reason Comments ER F/U Reason Onset Date Comments Refill Request 10/17/2023 Reason Comments 3 month follow up Reason Onset Date Comments Refill Request 11/23/2023 Reason Onset Date Comments Refill Request 01/08/2024 Reason Comments Medication Update Reason Onset Date Comments Refill Request 01/17/2024 Reason Comments Pain Right ankle pain sta rted this morning Reason Onset Date Comments Population Health Navigation Outreach 01/24/2024 [facility] Reason Onset Date Comments Refill Request 01/11/2024 Reason Comments GI PRE OP CALL Reason Comments 01/08/2024 COLON/EGD DIAGNOSTIC Reason Onset Date Comments Refill Request 04/05/2024 Reason Onset Date Comments Refill Request 04/12/2024 Reason Comments Lump right groin Reason Comments Mass Lower abdomen X 1 we ek Specialty Diagnoses / Procedures Referred By France t Referred To Contact CT IMAGING Diagnoses Nausea Right lower quadrant abdominal pain Procedures CT ABD/PEL W IVCON CT ABD & PELVIS W/CONTRAST Sabine Crowley, ROSALINA.ENVIRONMENTAL PROJECTS ADVISOR [address] [place] [address] [place] [address] Referral ID Status Reason Start Date Expiration Date V isits Requested Visits Authorized [id number] Closed Auto-Generate d Referral 04/18/2024 05/18/2025 1 1 Reason Comments Orders Specialty Diagnoses / Procedures Referred By France t Referred To Contact US IMAGING Diagnoses Right lower quadrant abdominal mass Procedures US EXTREMITY MASS/FLUID COLLECTION RIGHT Sabine Crowley, SHELL PLATER.ENVIRONMENTAL PROJECTS ADVISOR [address] [place] [address] [place] [address] Referral ID Status Reason Start Date Expiration Date V isits Requested Visits Authorized [id number] Closed Auto-Generate d Referral 04/18/2024 05/18/2025 1 1 Reason Comments Fall Reason Onset Date Comments Population Health Navigation Outreach 05/08/2024 [facility] Reason Comments Follow Up Routine-patient take s OTC PPI (omeprazole she thinks)and asking about getting Rx for med. Reason Comments PT Re-eval Reason Onset Date Comments Refill Request 06/06/2024 Reason Comments congestion, runny nose, fatigue, headach es , chills and fat Started yesterday Reason Onset Date Comments Results 07/12/2024 Reason Onset Date Comments Refill Request 07/22/2024 Reason Onset Date Comments Refill Request 07/30/2024 Reason Comments ED Follow-up [facility] 07/30/2024 for abd ominal pain Reason Comments Radiology NM Specialty Diagnoses / Procedures Referred By France sanabria Referred To Contact [facility] Diagnoses Nausea RUQ pain Procedures NM HEPATOBILIARY W EF AND/OR RX HEPATOBIL SYST IMAG INC GB W/PHARMA INTERVENJ PodShavonne archibald, SHELL PLATER.ENVIRONMENTAL PROJECTS ADVISOR [address] [place] [address] Phone: tel: fax: [facility] [address] [place] [address] Phone: tel: Referral ID Status Reason Start Date Expiration Date V isits Requested Visits Authorized [id number] Closed Auto-Generate d Referral 08/06/2024 09/05/2025 1 1 Reason Onset Date Comments Results 08/12/2024 Reason Onset Date Comments Results - Mri 08/16/2024 Reason Onset Date Comments Refill Request 10/03/2024 Reason Comments ER F/U Patient to ER 2 sepa rate visits and continues to have pain Reason Onset Date Comments Results 10/23/2024 Reason Onset Date Comments Refill Request 11/06/2024 Reason Onset Date Comments Refill Request 11/28/2024 Reason Onset Date Comments Refill Request 12/17/2024 Reason Onset Date Comments Refill Request 01/08/2025 Care Teams (unrecognized sec tion and content) Professor Of German Relationship Specialty Start Date End Date Clinic, Danae Patel [address] [place] [address] PCP - General 11/18/20 Jovanni Garcia [address] [place] [address] Physician Ent - Otolaryngology 02/26/21 Professor Of German Relationship Specialty Start Date End Date Clinic, Danae Patel [address] [place] [address] PCP - General 11/18/20 Jovanni Garcia [address] [place] [address] Physician Ent - Otolaryngology 02/26/21 Professor Of German Relationship Specialty Start Date End Date Clinic, Danae Patel [address] [place] [address] PCP - General 11/18/20 Jovanni Garcia [address] [place] [address] Physician Ent - Otolaryngology 02/26/21 Professor Of German Relationship Specialty Start Date End Date Clinic, Danae Patel [address] [place] [address] PCP - General 11/18/20 Jovanni Garcia [address] [place] [address] Physician Ent - Otolaryngology 02/26/21 Professor Of German Relationship Specialty Start Date End Date Clinic, Danae Patel [address] [place] [address] PCP - General 11/18/20 Jovanni Garcia [address] [place] [phone] Physician Ent - Otolaryngology 02/26/21 Professor Of German Relationship Specialty Start Date End Date Clinic, [facility] [address] [place] [address] PCP - General 11/18/20 Jovanni Garcia [address] [place] [phone] Physician Ent - Otolaryngology 02/26/21 Professor Of German Relationship Specialty Start Date End Date Clinic, [facility] [address] [place] [address] PCP - General 11/18/20 Jovanni Garcia [address] [place] [phone] Physician Ent - Otolaryngology 02/26/21 Team Status: Active Member Role Status Dates [facility] Family Provider Active [facility] Primary Care Provider A ctive Team Status: Inactive Member Role Status [facility] Primary Care Provider, Referring Provider Active Vanessa Fernandez LEHR OPERATOR, LEHR OPERATOR-C Attending Provider Active Team Status: Active Member Role Status [facility] Primary Care Provider A ctive Dr. Cole Bran MD Attending Provider Active Team Status: Active Member Role Status Dates [facility] Primary Care Provider A ctive Dr. Eduardo Ely DO Emergency Provider Active Dr. Rupal Gannon MD Admit Provider, Other Provider Active Dr. Lashawn Ellington MD Attending Provider, Other Provid er Active Team Status: Inactive Member Role Status [facility] Primary Care Provider, Referring Provider Active Dr. Ramesh Sanabria MD Attending Provider Active Team Status: Active Member Role Status Dates [facility] Primary Care Provider A ctive Dr. Marsha Vaughn MD Attending Provider, Refe rring Provider Active Team Status: Active Member Role Status Dates [facility] Primary Care Provider A ctive Laura Lacey Attending Provider Active Team Status: Inactive Member Role Status Dates [facility] Primary Care Provider A ctive Dr. Rl Britt MD Attending Provider, Emergency Provider Active Team Status: Inactive Member Role Status [facility] Primary Care Provider, Attending Provider Active Team Status: Inactive Member Role Status [facility] Primary Care Provider A ctive Yamile Adan LEHR OPERATOR, LEHR OPERATOR-C Attending Provider Active Team Status: Inactive Member Role Status [facility] Primary Care Provider A ctive Dr. Eduardo Ely DO Emergency Provider Active Dr. Rupal Gannon MD Admit Provider, Other Provider Active Dr. Lashawn Ellington MD Attending Provider Active Team Status: Active Member Role Status [facility] Primary Care Provider A ctive Dr. Cole Bran MD Attending Provider, Referring Provider Active Team Status: Inactive Member Role Status [facility] Primary Care Provider A ctive Dr. Eduardo Ely DO Attending Provider, Emergency Provider Active Team Status: Inactive Member Role Status [facility] Primary Care Provider A ctive Dr. Ramesh Sanabria MD Attending Provider, Referring Pro vider Active Team Status: Active Member Role Status [facility] Primary Care Provider A ctive Yamile Adan LEHR OPERATOR, LEHR OPERATOR-C Attending Provider, Referrin g Provider Active Team Status: Inactive Member Role Status [facility] Primary Care Provider A ctmatias Jackson MD Emergency Provider Active Team Status: Inactive Member Role Status [facility] Primary Care Provider, Referring Provider Active Giuseppe Mireles MD Attending Provider Active Team Status: Inactive Member Role Status [facility] Primary Care Provider A ctmatias Adan LEHR OPERATOR, LEHR OPERATOR-C Attending Provider, Referrin g Provider Active Team Status: Inactive Member Role Status [facility] Primary Care Provider A ctmatias Jackson MD Attending Provider, Emergency Provid er Active Team Status: Inactive Member Role Status [facility] Primary Care Provider A ctmatias Mireles MD Attending Provider, Referring Prov ider Active Team Status: Inactive Member Role Status [facility] Primary Care Provider A ctive Dr. Lili Roque MD Emergency Provider Active Team Status: Active Member Role Status [facility] Family Provider Active Dr. Bird Ronquillo MD Primary Care Provider Acti ve Team Status: Inactive Member Role Status Dates [facility] Primary Care Provider, Referring Provider Active Dr. Arslan Love MD Attending Provider Active Team Status: Inactive Member Role Status Dates [facility] Primary Care Provider, Referring Provider Active Laura Coulter PA, PA Attending Provider Active Team Status: Inactive Member Role Status Dates [facility] Primary Care Provider A ctive Dr. Lili Roque MD Attending Provider, Emergency Provider Active Team Status: Inactive Member Role Status Dates Dr. Rl Britt MD Attending Provider, Emergency Provider Active Dr. Bird Ronquillo MD Primary Care Provider, Ref erring Provider Active Team Status: Inactive Member Role Status Dates Dr. Bird Ronquillo MD Primary Care Provider Acti ve Dr. Kunal Bray , Emergency Provider Active Professor Of German Relationship Specialty Start Date End Date Clinic, [facility] [address] [place] [address] PCP - General 11/18/20 Jovanni Garcia [address] [place] [address] Physician Ent - Otolaryngology 02/26/21 Professor Of German Relationship Specialty Start Date End Date Clinic, [facility] [address] [place] [address] PCP - General 11/18/20 Jovanni Garcia [address] [place] [address] Physician Ent - Otolaryngology 02/26/21 Team Status: Inactive Member Role Status Dates Dr. Bird Ronquillo MD Primary Care Provider Acti ve Dr. Kunal Bray , Attending Provider, Emergency Pr ovider Active Team Status: Inactive Member Role Status Dates Dr. Bird Ronquillo MD Primary Care Provider Acti ve Dr. Bina Walter DO Emergency Provider Active Team Status: Inactive Member Role Status Dates Dr. Bird Ronquillo MD Primary Care Provider Acti ve Dr. Bina Walter DO Attending Provider, Emergency Pro vider Active Team Status: Inactive Member Role Status Dates Dr. Bird Ronquillo MD Primary Care Provider Acti ve Naif Jackson MD Emergency Provider Active Professor Of German Relationship Specialty Start Date End Date Clinic, [facility] [address] [place] [address] PCP - General 11/18/20 Jovanni Garcia [address] [place] [address] Physician Ent - Otolaryngology 02/26/21 Professor Of German Relationship Specialty Start Date End Date Clinic, [facility] [address] [place] [address] PCP - General 11/18/20 Jovanni Garcia [address] [place] [address] Physician Ent - Otolaryngology 02/26/21 Professor Of German Relationship Specialty Start Date End Date Clinic, [facility] Patel [address] [place] [address] PCP - General 11/18/20 Jovanni Garcia [address] [place] [address] Physician Ent - Otolaryngology 02/26/21 Professor Of German Relationship Specialty Start Date End Date Tatiana Ronquillo MD [address] [place] [address] PCP - General Family Medicine 01/26/23 Jovanni Garcia [address] [place] [address] Physician Ent - Otolaryngology 02/26/21 Professor Of German Relationship Specialty Start Date End Date Tatiana Ronquillo MD [address] [place] [address] PCP - General Family Medicine 01/26/23 Jovanni Garcia [address] [place] [phone] Physician Ent - Otolaryngology 02/26/21 Professor Of German Relationship Specialty Start Date End Date Tatiana Ronquillo MD [address] [facility], [place] [address] PCP - General Family Medicine 01/26/23 Jovanni Garcia [address] [place] [phone] Physician Ent - Otolaryngology 02/26/21 Professor Of German Relationship Specialty Start Date End Date Tatiana Ronquillo MD [address] [place], [place] [address] PCP - General Family Medicine 01/26/23 Jovanni Garcia [address] [place] [phone] Physician Ent - Otolaryngology 02/26/21 Professor Of German Relationship Specialty Start Date End Date Tatiana Ronquillo MD [address] [facility], [place] [address] PCP - General Family Medicine 01/26/23 Jovanni Garcia [address] [place] [phone] Physician Ent - Otolaryngology 02/26/21 Professor Of German Relationship Specialty Start Date End Date Tatiana Ronquillo MD [address] [facility], [place] [phone] PCP - General Family Medicine 01/26/23 Jovanni Garcia [address] [place] [phone] Physician Ent - Otolaryngology 02/26/21 Professor Of German Relationship Specialty Start Date End Date Tatiana Ronquillo MD [address] [place], [place] [address]6501 PCP - General Family Medicine 01/26/23 Jovanni Garcia [address] [place] [address] Physician Ent - Otolaryngology 02/26/21 Team Status: Inactive Member Role Status Dates [facility] Referring Provider Acti ve Vanessa Fernandez LEHR OPERATOR, LEHR OPERATOR-C Attending Provider Active Dr. Bird Ronquillo MD Primary Care Provider Acti ve Team Status: Inactive Member Role Status Dates Dr. Bird Ronquillo MD Primary Care Provider Acti ve Naif Jackson MD Attending Provider, Emergency Provid er Active Team Status: Inactive Member Role Status Dates Dr. Bird Ronquillo MD Primary Care Provider Acti ve Dr. Eduardo Ely DO Emergency Provider Active Professor Of German Relationship Specialty Start Date End Date Tatiana Ronquillo MD [address] [place], [place] [id number] PCP - General Family Medicine 01/26/23 Jovanni Garcia [address] [place] [address] Physician Ent - Otolaryngology 02/26/21 Professor Of German Relationship Specialty Start Date End Date Tatiana Ronquillo MD [address] [place], [place] [phone] PCP - General Family Medicine 01/26/23 Jovanni Garcia [address] [place] [phone] Physician Ent - Otolaryngology 02/26/21 Professor Of German Relationship Specialty Start Date End Date Tatiana Ronquillo MD [address] [place], [place] 951648 [phone] PCP - General Family Medicine 01/26/23 Jovanni Garcia [address] [place] [phone] Physician Ent - Otolaryngology 02/26/21 Professor Of German Relationship Specialty Start Date End Date Tatiana Ronquillo MD [address] [place], [place] 125871 PCP - General Family Medicine 01/26/23 Jovanni Garcia [address] [place] [phone] Physician Ent - Otolaryngology 02/26/21 Professor Of German Relationship Specialty Start Date End Date Tatiana Ronquillo MD [address] [place], [place] 253019 [phone] PCP - General Family Medicine 01/26/23 Jovanni Garcia [address] [place] [phone] Physician Ent - Otolaryngology 02/26/21 Professor Of German Relationship Specialty Start Date End Date Tatiana Ronquillo MD [address] [place], [place] [phone] PCP - General Family Medicine 01/26/23 Jovanni Garcia [address] [place] [phone] Physician Ent - Otolaryngology 02/26/21 Professor Of German Relationship Specialty Start Date End Date Tatiana Ronquillo MD [address] [place], [place] 491091 PCP - General Family Medicine 01/26/23 Jovanni Garcia [address] [place] [phone] Physician Ent - Otolaryngology 02/26/21 Professor Of German Relationship Specialty Start Date End Date Tatiana Ronquillo MD [address] [place], [place] 649441 PCP - General Family Medicine 01/26/23 Jovanni Garcia [address] [place] [phone] Physician Ent - Otolaryngology 02/26/21 Team Status: Inactive Member Role Status Dates Dr. Bird Ronquillo MD Primary Care Provider, Ref erring Provider Active Dr. Arslan oLve MD Attending Provider Active Professor Of German Relationship Specialty Start Date End Date Tatiana Ronquillo MD [address] [place], [place] [phone] PCP - General Family Medicine 01/26/23 Jovanni Garcia [address] [place] [phone] Physician Ent - Otolaryngology 02/26/21 Professor Of German Relationship Specialty Start Date End Date Tatiana Ronquillo MD [address] [place], [place] 216021 PCP - General Family Medicine 01/26/23 Jovanni Garcia [address] [place] [phone] Physician Ent - Otolaryngology 02/26/21 Professor Of German Relationship Specialty Start Date End Date Tatiana Ronquillo MD [address] [place], [place] 484011 PCP - General Family Medicine 01/26/23 Jovanni Garcia [address] [place] [phone] Physician Ent - Otolaryngology 02/26/21 Professor Of German Relationship Specialty Start Date End Date Tatiana Ronquillo MD [address] [place], [place] 629821 PCP - General Family Medicine 01/26/23 Jovanni Garcia [address] [place] [phone] Physician Ent - Otolaryngology 02/26/21 Team Status: Inactive Member Role Status Dates Dr. Bird Ronquillo MD Primary Care Provider Acti ve Dr. Eduardo Ely DO Attending Provider, Emergency Provider Active Team Status: Inactive Member Role Status Dates Dr. Bird Ronquillo MD Primary Care Provider Acti ve Dr. Rl Britt MD Emergency Provider Active Professor Of German Relationship Specialty Start Date End Date Tatiana Ronquillo MD [address] [place], [place] [phone] PCP - General Family Medicine 01/26/23 Jovanni Garcia [address] [place] [phone] Physician Ent - Otolaryngology 02/26/21 Professor Of German Relationship Specialty Start Date End Date Tatiana Ronquillo MD [address] [place], [place] 277001 PCP - General Family Medicine 01/26/23 Jovanni Garcia [address] [place] [phone] Physician Ent - Otolaryngology 02/26/21 Professor Of German Relationship Specialty Start Date End Date Tatiana Ronquillo MD [address] [place] [address] PCP - General Family Medicine 01/26/23 Jovanni Garcia [address] [place] [phone] Physician Ent - Otolaryngology 02/26/21 Professor Of German Relationship Specialty Start Date End Date Tatiana Ronquillo MD [address] [place], [place] 536681 PCP - General Family Medicine 01/26/23 Jovanni Garcia [address] [place] [phone] Physician Ent - Otolaryngology 02/26/21 Professor Of German Relationship Specialty Start Date End Date Tatiana Ronquillo MD [address] [place], [place] [phone] PCP - General Family Medicine 01/26/23 Jovanni Garcia [address] [place] [address] Physician Ent - Otolaryngology 02/26/21 Professor Of German Relationship Specialty Start Date End Date Tatiana Ronquillo MD [address] [place] [address] PCP - General Family Medicine 01/26/23 Jovanni Garcia [address] [place] [phone] Physician Ent - Otolaryngology 02/26/21 Professor Of German Relationship Specialty Start Date End Date Danae Manrique PCP - General 11/18/20 01/25/23 Jovanni Garcia [address] [place] [phone] Physician Ent - Otolaryngology 02/26/21 Professor Of German Relationship Specialty Start Date End Date Tatiana Ronquillo MD [address] [place] [address] PCP - General Family Medicine 01/26/23 Jovanni Garcia [address] [place] [phone] Physician Ent - Otolaryngology 02/26/21 Professor Of German Relationship Specialty Start Date End Date Tatiana Ronquillo MD [address] [place] [address] PCP - General Family Medicine 01/26/23 Jovanni Garcia [address] [place] [phone] Physician Ent - Otolaryngology 02/26/21 Professor Of German Relationship Specialty Start Date End Date Tatiana Ronquillo MD [address] [place], [place] 917951 [phone] PCP - General Family Medicine 01/26/23 Jovanni Garcia [address] [place] [phone] Physician Ent - Otolaryngology 02/26/21 Professor Of German Relationship Specialty Start Date End Date Tatiana Ronquillo MD [address] [place], [place] 558951 PCP - General Family Medicine 01/26/23 Jovanni Garcia [address] [place] [phone] Physician Ent - Otolaryngology 02/26/21 Professor Of German Relationship Specialty Start Date End Date Tatiana Ronquillo MD [address] [place], [place] 983217 [phone] PCP - General Family Medicine 01/26/23 Jovanni Garcia [address] [place] [phone] Physician Ent - Otolaryngology 02/26/21 Professor Of German Relationship Specialty Start Date End Date Tatiana Ronquillo MD [address] [place], [place] [phone] PCP - General Family Medicine 01/26/23 Jovanni Garcia [address] [place] [phone] Physician Ent - Otolaryngology 02/26/21 Professor Of German Relationship Specialty Start Date End Date Tatiana Ronquillo MD [address] [place], [place] 046941 PCP - General Family Medicine 01/26/23 Jovanni Garcia [address] [place] [phone] Physician Ent - Otolaryngology 02/26/21 Professor Of German Relationship Specialty Start Date End Date Tatiana Ronquillo MD [address] [place], [place] 566591 PCP - General Family Medicine 01/26/23 Jovanni Garcia [address] [place] [phone] Physician Ent - Otolaryngology 02/26/21 Professor Of German Relationship Specialty Start Date End Date Tatiana Ronquillo MD [address] [place], [place] 982601 PCP - General Family Medicine 01/26/23 Jovanni Garcia [address] [place] [phone] Physician Ent - Otolaryngology 02/26/21 Professor Of German Relationship Specialty Start Date End Date Tatiana Ronquillo MD [address] [place], [place] 66914691 PCP - General Family Medicine 01/26/23 Jovanni Garcia [address] [place] [address] Physician Ent - Otolaryngology 02/26/21 Professor Of German Relationship Specialty Start Date End Date Tatiana Ronquillo MD [address] [place] [address] PCP - General Family Medicine 01/26/23 Jovanni Garcia [address] [place] [phone] Physician Ent - Otolaryngology 02/26/21 Professor Of German Relationship Specialty Start Date End Date Tatiana Ronquillo MD [address] [place] [address] PCP - General Family Medicine 01/26/23 Jovanni Garcia [address] [place] [phone] Physician Ent - Otolaryngology 02/26/21 Professor Of German Relationship Specialty Start Date End Date Tatiana Ronquillo MD [address] [place], [place] 665628 [phone] PCP - General Family Medicine 01/26/23 Jovanni Garcia [address] [place] [address] Physician Ent - Otolaryngology 02/26/21 Professor Of German Relationship Specialty Start Date End Date Tatiana Ronquillo MD [address] [place] [address] PCP - General Family Medicine 01/26/23 Jovanni Garcia [address] [place] [address] Physician Ent - Otolaryngology 02/26/21 Professor Of German Relationship Specialty Start Date End Date Tatiana Ronquillo MD [address] [place] [address] PCP - General Family Medicine 01/26/23 Jovanni Garcia [address] [place] [phone] Physician Ent - Otolaryngology 02/26/21 PodlogarShavonne APRN.ENVIRONMENTAL PROJECTS ADVISOR [address] [place] [address] [employer] Family [facility] 05/04/24 Professor Of German Relationship Specialty Start Date End Date Tatiana Ronquillo MD [address] [place] [address] PCP - General Family Medicine 01/26/23 Jovanni Garcia [address] [place] [address] Physician Ent - Otolaryngology 02/26/21 PodlogarShavonne APRN.ENVIRONMENTAL PROJECTS ADVISOR [address] [place] [address] Communications [employer] Family Medicine 05/04/24 Professor Of German Relationship Specialty Start Date End Date Tatiana Ronquillo MD [address] [place] [address] PCP - General Family Medicine 01/26/23 Jovanni Garcia [address] [place] [address] Physician Ent - Otolaryngology 02/26/21 PodlogarShavonne APRN.ENVIRONMENTAL PROJECTS ADVISOR [address] [place] [address] Communications Tech Family Medicine 05/04/24 Professor Of German Relationship Specialty Start Date End Date Tatiana Ronquillo MD [address] [place] [address] PCP - General Family Medicine 01/26/23 Jovanni Garcia [address] [place] [phone] Physician Ent - Otolaryngology 02/26/21 PodlogarShavonne APRN.ENVIRONMENTAL PROJECTS ADVISOR [address] [place] [address] Communications [employer] Family Medicine 05/04/24 Professor Of German Relationship Specialty Start Date End Date Tatiana Ronquillo MD [address] [place] [address] PCP - General Family Medicine 01/26/23 Jovanni Garcia [address] [place] [address] Physician Ent - Otolaryngology 02/26/21 PodlogarShavonne APRN.ENVIRONMENTAL PROJECTS ADVISOR [address] [place] [address] Communications [employer] Family Medicine 05/04/24 Professor Of German Relationship Specialty Start Date End Date Tatiana Ronquillo MD [address] [place] [address] PCP - General Family Medicine 01/26/23 Jovanni Garcia [address] [place] [address] Physician Ent - Otolaryngology 02/26/21 PodlogarShavonne APRN.ENVIRONMENTAL PROJECTS ADVISOR [address] [place] [address] Communications [employer] Family Medicine 05/04/24 Professor Of German Relationship Specialty Start Date End Date Tatiana Ronquillo MD [address] [place] [address] PCP - General Family Medicine 01/26/23 Jovanni Garcia [address] [place] [phone] Physician Ent - Otolaryngology 02/26/21 PodlogarShavonne APRN.ENVIRONMENTAL PROJECTS ADVISOR [address] [place] [address] [employer] Family Medicine 05/04/24 Professor Of German Relationship Specialty Start Date End Date Tatiana Ronquillo MD [address] [place] [address] PCP - General Family Medicine 01/26/23 Jovanni Garcia [address] [place] [phone] Physician Ent - Otolaryngology 02/26/21 PodlogarShavonne APRN.ENVIRONMENTAL PROJECTS ADVISOR [address] [place] [address] Communications Tech Family Medicine 05/04/24 Professor Of German Relationship Specialty Start Date End Date Tatiana Ronquillo MD [address] [place] [address] PCP - General Family Medicine 01/26/23 Jovanni Garcia [address] [place] [phone] Physician Ent - Otolaryngology 02/26/21 PodlogarShavonne APRN.ENVIRONMENTAL PROJECTS ADVISOR [address] [place] [address] [employer] Family Medicine 05/04/24 Professor Of German Relationship Specialty Start Date End Date Tatiana Ronquillo MD [address] [place] [address] PCP - General Family Medicine 01/26/23 Jovanni Garcia [address] [place] [phone] Physician Ent - Otolaryngology 02/26/21 Podlogar, ROSALINA Marvin.ENVIRONMENTAL PROJECTS ADVISOR [address] [place] [address] [employer] Family Medicine 05/04/24 Professor Of German Relationship Specialty Start Date End Date Tatiana Ronquillo MD [address] [facility] [place] [address] PCP - General Family Medicine 01/26/23 Jovanni Garcia [address] [place] [address] Physician Ent - Otolaryngology 02/26/21 PodlogarShavonne APRN.ENVIRONMENTAL PROJECTS ADVISOR [address] [place] [address] Communications Tech [facility] 05/04/24 Professor Of German Relationship Specialty Start Date End Date Tatiana Ronquillo MD [address] [place] [address] PCP - General Family Medicine 01/26/23 Jovanni Garcia [address] [place] [phone] Physician Ent - Otolaryngology 02/26/21 Podlogar, ROSALINA Marvin.ENVIRONMENTAL PROJECTS ADVISOR [address] [place] [address] [facility] 05/04/24 Professor Of German Relationship Specialty Start Date End Date Tatiana Ronquillo MD [address] [place] [address] PCP - General Family Medicine 01/26/23 Jovanni Garcia [address] [place] [phone] Physician Ent - Otolaryngology 02/26/21 PodlogarShavonne APRN.ENVIRONMENTAL PROJECTS ADVISOR [address] [place] [address] [facility] 05/04/24 Sabine Crowley APRN.ENVIRONMENTAL PROJECTS ADVISOR [address] [place], [place] 520[address] [facility] 08/09/24 Professor Of German Relationship Specialty Start Date End Date Tatiana Ronquillo MD [address] [place], [place] 444761 PCP - General Family Medicine 01/26/23 Jovanni Garcia [address] [place] [address] Physician Ent - Otolaryngology 02/26/21 PodlogarShavonne APRN.ENVIRONMENTAL PROJECTS ADVISOR [address] [place], [place] [address]84[address] [facility] 05/04/24 Sabine Crowley, SHELL PLATER.ENVIRONMENTAL PROJECTS ADVISOR [address] [place], [place] [id number] [facility] 08/09/24 Professor Of German Relationship Specialty Start Date End Date Tatiana Ronquillo MD [address] [place], [place] 282111 PCP - General Family Medicine 01/26/23 Jovanni Garcia [address] [place] [phone] Physician Ent - Otolaryngology 02/26/21 PodlogarShavonne APRN.ENVIRONMENTAL PROJECTS ADVISOR [address] [place], [place] [id number] [employer] [facility] 05/04/24 Sabine Crowley SHELL PLATER.ENVIRONMENTAL PROJECTS ADVISOR [address] [place], [place] [address]22[address] [employer] [facility] 08/09/24 08/18/24 Sabine Crowley, ROSALINA.ENVIRONMENTAL PROJECTS ADVISOR [address] [place], [place] [address]01431 [facility] 08/19/24 Professor Of German Relationship Specialty Start Date End Date Tatiana Ronquillo MD [address] [place], [place] 291051 PCP - General Family Medicine 01/26/23 Jovanni Garcia [address] [place] [phone] Physician Ent - Otolaryngology 02/26/21 PodlogarShavonne SHELL PLATER.ENVIRONMENTAL PROJECTS ADVISOR [address] [place], [place] [address]291 [facility] 05/04/24 Sabine Crowley SHELL PLATER.ENVIRONMENTAL PROJECTS ADVISOR [address] [place], [place] [address] [facility] 08/09/24 08/18/24 Sabine Crowley SHELL PLATER.ENVIRONMENTAL PROJECTS ADVISOR [address] [place], [place] [address] [facility] 08/19/24 Professor Of German Relationship Specialty Start Date End Date Tatiana Ronquillo MD [address] [place] [address] PCP - General Family Medicine 01/26/23 Radha Jovanniroshan Avila [address] [place] [phone] Physician Ent - Otolaryngology 02/26/21 Shavonne Donato APRN.ENVIRONMENTAL PROJECTS ADVISOR [address] [place], [place] [address]3591 Communications Tech Family [facility] 05/04/24 Sabine Crowley APRN.ENVIRONMENTAL PROJECTS ADVISOR [address] [place], [place] [phone] [facility] 08/19/24 Team Status: Active Member Role Status Dates Dr. Bird Ronquillo MD Primary Care Provider Acti ve Team Status: Inactive Member Role Status Dates Dr. Bird Ronquillo MD Primary Care Provider Acti ve Start: July 19, 2024 End: July 19, 2024 Dr. Colin Caba DO Attending Provider Activ e Start: July 19, 2024 End: July 19, 2024 Dr. Colin Caba DO Emergency Provider Activ e Start: July 19, 2024 End: July 19, 2024 Team Status: Inactive Member Role Status Dates Dr. Bird Ronquillo MD Primary Care Provider Acti ve Start: July 31, 2024 End: July 31, 2024 Dr. Raza Ruiz DO Attending Provider Active Start: July 31, 2024 End: July 31, 2024 Dr. Raza Ruiz DO Emergency Provider Active Start: July 31, 2024 End: July 31, 2024 Team Status: Inactive Member Role Status Dates Dr. Bird Ronquillo MD Primary Care Provider Acti ve Start: September 30, 2024 End: September 30, 2024 Dr. Ed Gorman MD Attending Provider Active Sta rt: September 30, 2024 End: September 30, 2024 Dr. Ed Gorman MD Emergency Provider Active Sta rt: September 30, 2024 End: September 30, 2024 Team Status: Inactive Member Role Status Dates Dr. Bird Ronquillo MD Primary Care Provider Acti ve Start: October 13, 2024 End: October 13, 2024 Dr. Colin Caba , Emergency Provider Activ e Start: October 13, 2024 End: October 13, 2024 Professor Of German Relationship Specialty Start Date End Date Tatiana Ronquillo MD [address] [place], [place] [address]1201 PCP - General Family Medicine 01/26/23 Jovanni Garcia [address] [place] [phone] Physician Ent - Otolaryngology 02/26/21 PodlogarShavonne APRN.ENVIRONMENTAL PROJECTS ADVISOR [address] [place], [place] [address]32[address] [employer] [facility] 05/04/24 Sabine Crowley SHELL PLATER.ENVIRONMENTAL PROJECTS ADVISOR [address] [place], [place] [id number] [employer] [facility] 08/09/24 08/18/24 Sabine Crowley, ROSALINA.ENVIRONMENTAL PROJECTS ADVISOR [address] [place], [place] [address] [employer] [facility] 08/19/24 10/13/24 Professor Of German Relationship Specialty Start Date End Date Tatiana Ronquillo MD [address] [place], [place] 706361 PCP - General Family Medicine 01/26/23 Jovanni Garcia [address] [place] [phone] Physician Ent - Otolaryngology 02/26/21 PodlogarShavonne APRN.ENVIRONMENTAL PROJECTS ADVISOR [address] [facility], [place] [address] [facility] 05/04/24 Team Status: Inactive Member Role Status Dates Dr. Bird Ronquillo MD Primary Care Provider Acti ve Start: October 13, 2024 End: October 13, 2024 Dr. Colin Caba , DO Attending Provider Activ e Start: October 13, 2024 End: October 13, 2024 Dr. Colin Caba , DO Emergency Provider Activ e Start: October 13, 2024 End: October 13, 2024 Team Status: Inactive Member Role Status Dates Dr. Bird Ronquillo MD Primary Care Provider Acti ve Start: November 18, 2024 End: November 18, 2024 Vanessa Fernandez LEHR OPERATOR, LEHR OPERATOR-C Attending Provider Active Start: November 18, 2024 End: November 18, 2024 Vanessa Fernandez LEHR OPERATOR, LEHR OPERATOR-C Referring Provider Active Start: November 18, 2024 End: November 18, 2024 Professor Of German Relationship Specialty Start Date End Date Tatiana Ronquillo MD [address] [facility], [place] [address] PCP - General Family Medicine 01/26/23 Jovanni Garcia [address] [place] [phone] Physician Ent - Otolaryngology 02/26/21 PodlogarShavonne APRN.ENVIRONMENTAL PROJECTS ADVISOR [address] [facility], [place] [address] [facility] 05/04/24 Sabine Crowley APRN.ENVIRONMENTAL PROJECTS ADVISOR [address] [facility], [place] [id number] [facility] 11/07/24 Team Status: Active Member Role/Relationship Status Dates Dr. Bird Ronquillo MD Primary Care Provider Acti ve Team Status: Inactive Member Role/Relationship Status Dates Dr. Bird Ronquillo MD Primary Care Provider Acti ve Start: September 30, 2024 End: September 30, 2024 Dr. Ed Gorman MD Attending Provider Active Sta rt: September 30, 2024 End: September 30, 2024 Dr. Ed Gorman MD Emergency Provider Active Sta rt: September 30, 2024 End: September 30, 2024 Team Status: Inactive Member Role/Relationship Status Dates Dr. Bird Ronquillo MD Primary Care Provider Acti ve Start: October 13, 2024 End: October 13, 2024 Dr. Colin Caba DO Attending Provider Activ e Start: October 13, 2024 End: October 13, 2024 Dr. Colin Caba DO Emergency Provider Activ e Start: October 13, 2024 End: October 13, 2024 Team Status: Inactive Member Role/Relationship Status Dates Dr. Bird Ronquillo MD Primary Care Provider Acti ve Start: November 18, 2024 End: November 18, 2024 Vanessa Fernandez LEHR OPERATOR, LEHR OPERATOR-C Attending Provider Active Start: November 18, 2024 End: November 18, 2024 Vanessa Fernandez LEHR OPERATOR, LEHR OPERATOR-C Referring Provider Active Start: November 18, 2024 End: November 18, 2024 Team Status: Inactive Member Role/Relationship Status Dates Dr. Bird Ronquillo MD Primary Care Provider Acti ve Start: December 05, 2024 End: December 05, 2024 Dr. Bird Ronquillo MD Referring Provider Active Start: December 05, 2024 End: December 05, 2024 Vanessa Fernandez LEHR OPERATOR, LEHR OPERATOR-C Attending Provider Active Start: December 05, 2024 End: December 05, 2024 Professor Of German Relationship Specialty Start Date End Date Tatiana Ronquillo MD [address] [place] [address] PCP - General Family Medicine 01/26/23 Jovanni Garcia [address] [place] [id number] Physician Ent - Otolaryngology 02/26/21 PodlogarShavonne APRN.ENVIRONMENTAL PROJECTS ADVISOR [address] [place], [place] [id number] [facility] 05/04/24 Sabine Crowley APRN.ENVIRONMENTAL PROJECTS ADVISOR [address] [place], [place] [id number] [facility] 11/07/24 Professor Of German Relationship Specialty Start Date End Date Tatiana Ronquillo MD [address] [place], [place] [id number] PCP - General Family Medicine 01/26/23 Jovanni Garcia [address] [place] [phone] Physician Ent - Otolaryngology 02/26/21 EricklogarShavonne APRN.ENVIRONMENTAL PROJECTS ADVISOR [address] [place], [place] [id number] [facility] 05/04/24 Sabine Crowley APRN.ENVIRONMENTAL PROJECTS ADVISOR [facility] [place], [place] [phone] [facility] 11/07/24 Inactive Administered Medications - up to 3 most recent administrations Administered Medications (un recognized section and content) Medication Order MAR Action Action Date Dose Rate Site lactated ringers iv infusion 30 mL/hr, INTRAVENOUS, CONTINUOUS, Starting on Mon09/04/23 at 1300, Until Mon09/04/23 at 1351, Preprocedure New Bag/Syringe/Bottle 09/04/2023 12:56 PM EDT 30 mL/hr 30 mL/hr FOR RECORDS PERTAINING TO PATIENTS WHO ARE OR HAVE BEEN ENROLLED IN A CHEMICAL DEPENDENCY/SUBSTANCEABUSE PROGRAM, SOME INFORMATION MAY BE OMITTED. This clinical summary was aggregated from multiple sources. Caution should be exercised in using it in the provision of clinical care. This summary normalizes information from multiple sources, and as a consequence, information in this document may materially change the coding, format and clinical context of patient data. In addition, data may be omitted in some cases. CLINICAL DECISIONS SHOULD BE BASED ON THE PRIMARY CLINICAL RECORDS. [facility]. provides no warranty or guarantee of the accuracy or completeness of information in this document.
--- NOTE | 2025-01-19 17:20 | CM.ED ---
Social Work Date of referral: 01/19/25 Reason for Referral: No Advanced Care Directives (ACD's) on file. Referred by: Social Work Identification Patient provided consent to social work visit. Forging Die Sinker requested patient bring in a copy of ACD's which patient agreed to do. Lili Cisse, DIRECTOR OF REGULATORY AFFAIRS, WELDING FOREMAN
[2025-01-19 18:52] VITALS: BP 137/74; PULSE 71; RESP 18; TEMP 36.9; O2SAT 97
== END 2025-01-19 18:53 | disposition home or self-care (01) ==
PROVIDERS: Emergency Provider Emergency Medicine; PCP Family Medicine; Visit Provider Emergency Medicine
DX: S39.012A Strain of muscle, fascia and tendon of lower back, initial encounter (principal); J44.9 Chronic obstructive pulmonary disease, unspecified; I25.10 Atherosclerotic heart disease of native coronary artery without angina pectoris; E78.2 Mixed hyperlipidemia; Z87.891 Personal history of nicotine dependence; I10 Essential (primary) hypertension; K21.9 Gastro-esophageal reflux disease without esophagitis; X58.XXXA Exposure to other specified factors, initial encounter
CPT/HCPCS: 72100; 99282

== ENCOUNTER 2025-01-31 17:53 | Emergency (ER) | payer MEDICAID, MEDICARE, SELFPAY ==
[2025-01-31 17:53] VITALS: BP 138/70; PULSE 70; RESP 17; TEMP 37.1; O2SAT 91; BMI 28.7
--- NOTE | 2025-01-31 18:48 | RAD_ITS ---
PROCEDURE: HAND MIN 3 VIEWS 01/31/2025 REASON FOR EXAM: PAIN. Patient fell 2 days ago. TECHNIQUE: Procedure Code: [facility] Modality: DX Procedure: HAND MIN 3 VIEWS Laterality: Right COMPARISON: 07/19/2022 FINDINGS: BONES: No acute fracture or focal osseous lesion. JOINTS: No dislocation. The joint spaces are preserved. SOFT TISSUES: The soft tissues are unremarkable. RAD/Hand Min 3 Views IMPRESSION: No acute osseous abnormality. Reading Location: [id number]
--- NOTE | 2025-01-31 18:48 | RAD_ITS ---
PROCEDURE: SHOULDER MIN 2 VIEWS 01/31/2025 REASON FOR EXAM: PAIN TECHNIQUE: Procedure Code: RAD Modality: DX Procedure: SHOULDER MIN 2 VIEWS Laterality: Right COMPARISON: 04/19/2022 FINDINGS: BONES: No acute fracture or focal osseous lesion. JOINTS: No dislocation. The joint spaces are preserved. Small inferior AC joint osteophytes, unchanged. SOFT TISSUES: The soft tissues are unremarkable. RAD/Shoulder min 2 Views IMPRESSION: No acute osseous abnormality. Reading Location: [id number]
[2025-01-31 19:27] VITALS: BP 155/84; PULSE 57; RESP 18; O2SAT 99
[2025-01-31 19:48] VITALS: O2SAT 100
--- NOTE | 2025-01-31 20:19 | CT_ITS ---
PROCEDURE: BRAIN/HEAD WITHOUT CONTRAST 01/31/2025 REASON FOR EXAM: HEAD TRAUMA TECHNIQUE: Procedure Code: CTBR Modality: CT Procedure: BRAIN/HEAD WITHOUT CONTRAST Coronal and Sagittal reconstruction series were provided. One or more dose reduction techniques were used (e.g., Automated exposure control, adjustment of the mA and/or kV according to patient size, use of iterative reconstruction technique. RADIATION DOSE SUMMARY: CTDlvol: 45 mGy DLP: 779 mGycm COMPARISON: MRI on 06/07/2022 FINDINGS: Normal brainstem. Normal cerebellum. No intracranial mass. No intracranial hemorrhage. No edema. Bony calvarium intact. Sinuses are clear CT/Brain/Head without Contrast IMPRESSION: No acute abnormality Reading Location[facility]
[2025-01-31 20:34] LABS: Hematocrit 38.5 % (37-47); Hemoglobin 12.7 g/dL (12.0-15.0); Mean Corp Hgb Conc 33.0 g/dL (32-36); Mean Corpuscular Volume 94.6 fL (81-99); Mean Platelet Vol. 8.9 fl (6.2-12.0); Platelet Count 179 K/mm3 (150-450); RBC Distribution Width CV 14.2 % (11.6-14.6); RBC Distribution Width SD 48.4 fl (35.1-43.9); Red Blood Count 4.07 M/mm3 (4.2-5.4); White Blood Count 4.3 K/mm3 (4.4-11.0)
--- NOTE | 2025-01-31 20:38 | EX.ED.GENINJ ---
HPI History of Present Illness Chief Complaint: Fall Informant: patient Narrative Narrative: Patient is a 69-year-old female with history of osteoporosis, GERD, coronary artery disease, hyperlipidemia, IBS, COPD (on home oxygen) presenting for right wrist and upper arm pain after a fall 2 days ago. Patient states she was moving in a place she was moving out of was dark. She tripped over a curb. She fell landing with a closed fist on her right hand. She has had pain and swelling along the knuckles of her right hand and also had bruising to her right wrist and her right upper arm. She states she did hit her head but it was very mild and she was wearing a hat. She denies any report of loss of consciousness. She is on Plavix and does report very easy bruising. She took Tylenol with minimal relief of her pain. Because of her continued pain she is worried she might of broke something and came in for further evaluation. Denies any other injuries. Has otherwise been in her normal state of health. [facility] Medical History Osteoporosis Kidney stones Kidney disease GERD (gastroesophageal reflux disease) Myocardial infarct Internal impingement of right shoulder Hypothyroidism Abnormal Holter monitor finding Sinus pause Mixed hyperlipidemia Atherosclerotic heart disease of huslia coronary artery without angina pectoris Essential hypertension Traumatic avulsion of nail plate of toe Thigh pain History of IBS Wears glasses Wears dentures Depression Anxiety Skin tear Bruising Thyroid disease Ambulates with cane History of renal disease Arthritis High cholesterol Easy bruising Restless legs Difficulty swallowing Difficulty chewing History of hiatal hernia Gastric reflux Former smoker Shortness of breath on exertion Stroke/cerebrovascular accident History of echocardiogram History of stress test History of heart attack History of irregular heartbeat Acute seasonal allergic rhinitis Acute serous otitis media Acute dysfunction of both eustachian tubes Fuchs' corneal dystrophy HTN (hypertension) COPD (chronic obstructive pulmonary disease) Bronchitis Constipation Abdominal pain Chest pain CAD (coronary artery disease) Hypoxia Diaphragm paralysis History of cerebrovascular disease History of CVA (cerebrovascular accident) Anxiety disorder Home Medications ?Medication ?Instructions ?Recorded ?Last Taken ?Type clopidogrel 75 mg tablet 75 mg PO DAILY BLOOD THINNER 30 06/08/22 09/29/24 Rx days #30 tabs atorvastatin 40 mg tablet 40 mg PO DAILY 07/01/22 09/29/24 History losartan 25 mg tablet 25 mg PO DAILY #90 tabs 09/29/22 09/29/24 Rx alendronate 70 mg tablet 70 mg PO Q7D 08/14/23 09/29/24 History cholecalciferol (vitamin D3) 125 125 mcg PO DAILY 08/14/23 09/29/24 History mcg (5,000 unit) tablet citalopram 10 mg tablet 10 mg PO DAILY 08/14/23 09/29/24 History montelukast 10 mg tablet 10 mg PO DAILY 12/01/23 09/29/24 History multivitamin (One Daily 1 tab PO DAILY 01/16/24 09/29/24 History Multivitamin tablet) ondansetron 4 mg disintegrating 4 mg PO Q8H PRN PRN Nausea #10 tabs 07/31/24 Unknown Rx tablet levothyroxine 75 mcg tablet 75 mcg PO DAILY 09/30/24 09/29/24 History pantoprazole 40 mg tablet,delayed 40 mg PO DAILY 09/30/24 09/29/24 History release levocetirizine 5 mg tablet 5 mg PO DAILY ALLERGIES #90 tabs 10/16/24 Unknown Rx (Allergy Relief (levocetirizine)) albuterol sulfate 90 mcg/actuation 2 puff inhalation Q6H PRN 10/28/24 Unknown Rx aerosol inhaler Shortness Of Breath #3 ea fluticasone fur. 200 mcg-umeclid 1 inh inhalation DAILY #60 ea 01/06/25 Unknown Rx 62.5 mcg-vilant 25 mcg inhalat.powder (Trelegy Ellipta) naproxen 500 mg tablet 500 mg PO BID PRN #20 tabs 01/19/25 Unknown Rx oxycodone 5 mg tablet 5 mg PO Q6H PRN pain 3 days #12 01/19/25 Unknown Rx tabs Allergy/AdvReac Type Severity Reaction Status Date / Time hydrocodone bitartrate (From Allergy HALLUCINATE Verified 01/31/25 17:58 Vicodin) S piperacillin (From Zosyn) Allergy Hives Verified 01/31/25 17:58 tazobactam (From Zosyn) Allergy Hives Verified 01/31/25 17:58 vancomycin Allergy Rash Verified 01/31/25 17:58 fish derived AdvReac Anaphylaxis Verified 01/31/25 17:58 morphine AdvReac HALLUCINATE Verified 01/31/25 17:58 S Family History Mother Diabetes Heart disease Hypertension High cholesterol Father Heart disease Hypertension High cholesterol CVA (cerebral vascular accident) Surgical History History of right breast biopsy History of surgery on lower extremity History of bilateral cataract extraction History of shoulder surgery History of tubal ligation Social History household members: significant other housing: apartment pets and animals: Yes pets and animals: dog(s) Smoking Status: Former smoker quit date: 10/28/19 pack-years: 25 Tobacco: How many years used: 25 second hand exposure: Yes alcohol intake: never substance use type: does not use caffeine: Yes Type: coffee Number of servings: 1 ROS ROS ED Constitutional Constitutional ED: Denies chills or fever(s) Eyes Eyes: Denies blurry vision ENT ENT ED: Denies rhinorrhea Gastrointestinal Gastrointestinal: Denies nausea or vomiting Musculoskeletal Musculoskeletal: Reports other Details: Right arm pain, right hand pain Integumentary Reports other Details: Bruising to her right upper extremity Neurologic Neurologic: Denies headache(s), paresthesias or weakness Hematologic/Lymphatic Hematologic/Lymphatic: Reports easy bruising EXAM Physical Exam Const Vital Signs: 01/31/25 17:53 01/31/25 19:27 01/31/25 19:48 Temperature 98.7 F Temperature Source Temporal Pulse Rate 70 57 L Respiratory Rate 17 18 Respiratory Effort Normal Non-Labored Respiratory Depth Normal Respiratory Pattern Normal Blood Pressure 138/70 H 155/84 H Blood Pressure Mean 92 107 Pulse Ox 91 99 100 Oxygen Delivery Method Room Air Nasal Cannula Nasal Cannula Oxygen Flow Rate (L/min) 2 2 01/31/25 21:00 01/31/25 21:23 Temperature 98 F Temperature Source Pulse Rate 86 65 Respiratory Rate 18 18 Respiratory Effort Respiratory Depth Respiratory Pattern Blood Pressure 156/75 H 165/97 H Blood Pressure Mean 102 119 Pulse Ox 99 95 Oxygen Delivery Method Nasal Cannula Oxygen Flow Rate (L/min) 2 Positive well nourished and well developed General Appearance ED: well developed and NAD HEENT Reports TM's clear HEENT Narrative: No cephalhematoma appreciated, no signs of basilar skull fracture atraumatic Tympanic Membrane ED: Yes TM's clear Eyes EOMs intact bilaterally Neck full ROM General: Negative for tenderness Resp normal respiratory effort Cardio regular rhythm Cardio Narrative: 2+ radial pulses Rate: regular rate Extremity Extremity Narrative: No obvious joint effusion present of the right upper extremity. Normal range of motion. Tenderness palpation of the right mid humerus with no obvious deformity. No tenderness from palpation of the right elbow. No joint effusion of the right elbow appreciated. Mild tenderness palpation over the ulnar styloid with some associated bruising but no distal radial tenderness. No scaphoid/anatomical snuffbox tenderness. Patient does have some tenderness and swelling to the 3rd through 5th MCPs. No deformity of the hand and normal range of motion of the fingers. No other bony tenderness in the other extremities or deformities Neuro oriented x3, moves all extremities and no focal motor deficits [place] Coma Scale: document GCS findings Spontaneous Obeys Commands Oriented 15 Psych mental status grossly normal Skin Skin Narrative: Bruising with no large hematoma to the right arm, right ulnar aspect of the wrist. No skin tears or lacerations appreciated MDM MDM MDM Narrative Medical decision making narrative: Patient evaluated for right upper extremity pain and bruising after a fall 2 days ago. She does report a lot of recent bruising so we will check a CBC to ensure she is not acutely anemic or have an acute thrombocytopenia. Will obtain x-ray to rule out underlying fracture or dislocation. Patient did hit her head will obtain CT of the brain to rule out intracranial hemorrhage. X-ray of the right shoulder and hand do not show any acute fracture. CBC unremarkable. Patient will be discharged home to follow-up outpatient primary care. Continue take Tylenol as needed for pain. Given return precautions. Discharged home in stable condition. Patient and significant other agreeable with plan of care Lab Data Attestation: I reviewed the patient's lab results. Labs: Laboratory Results - last 24 hr 01/31/25 20:26 WBC 4.3 L RBC 4.07 L Hgb 12.7 Hct 38.5 MCV 94.6 MCH 31.2 MCHC 33.0 RDW Std Deviation 48.4 H RDW Coeff of Keo 14.2 Plt Count 179 MPV 8.9 Radiography Diagnostic Testing: Clinical Impression(s) from Imaging Studies Hand X-Ray 01/31/25 18:48 IMPRESSION: No acute osseous abnormality. Reading Location: [facility] Shoulder X-Ray 01/31/25 18:48 IMPRESSION: No acute osseous abnormality. 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 Instructions: ED Hand Contusion, ED Fall Prevention Prescriptions: No Action atorvastatin 40 mg tablet 40 mg PO DAILY losartan 25 mg tablet 25 mg PO DAILY Qty: 90 3RF montelukast 10 mg tablet 10 mg PO DAILY clopidogrel 75 MG tablet 75 mg PO DAILY 30 Days Qty: 30 0RF alendronate 70 mg tablet 70 mg PO Q7D Patient Comments: PLEASE SEE ATTACHED FOR DETAILED DIRECTIONS citalopram 10 mg tablet 10 mg PO DAILY cholecalciferol (vitamin D3) 125 mcg (5,000 unit) tablet 125 mcg PO DAILY multivitamin [One Daily Multivitamin] Tablet 1 tab PO DAILY ondansetron 4 mg tablet,disintegrating 4 mg PO Q8H PRN PRN (Reason: Nausea) Qty: 10 0RF levothyroxine 75 mcg tablet 75 mcg PO DAILY pantoprazole 40 mg tablet,delayed release (DR/EC) 40 mg PO DAILY naproxen 500 mg tablet 500 mg PO BID PRN Qty: 20 0RF oxycodone 5 mg tablet 5 mg PO Q6H PRN (Reason: pain) 3 Days Qty: 12 0RF levocetirizine [Allergy Relief (levocetirizin)] 5 mg tablet 5 mg PO DAILY Qty: 90 3RF albuterol sulfate 90 mcg/actuation HFA aerosol inhaler 2 puff inhalation Q6H PRN (Reason: Shortness Of Breath) Qty: 3 3RF Trelegy Ellipta 200-62.5-25 mcg blister with device 1 inh inhalation DAILY Qty: 60 6RF Primary Care Provider: Bird Ronquillo Referrals: Bird Ronquillo MD [Primary Care Provider] - Activity Restrictions/Additional Instructions: Nothing is broken on your imaging today. Ice and use Tylenol as needed for pain. As we discussed I would recommend using an Giles wrap to your hand to help with the pain. Continued pain please follow-up with your primary care doctor for repeat evaluation in the next 1 to 2 weeks. Print Language: Occitan Disposition Disposition: Home, Self Care Discharge Date/Time: 01/31/25 21:38
[2025-01-31 21:00] VITALS: BP 156/75; PULSE 86; RESP 18; O2SAT 99
[2025-01-31 21:23] VITALS: BP 165/97; PULSE 65; RESP 18; TEMP 36.6; O2SAT 95
== END 2025-01-31 21:38 | disposition home or self-care (01) ==
PROVIDERS: Emergency Provider Emergency Medicine; PCP Family Medicine; Visit Provider Emergency Medicine
DX: S09.90XA Unspecified injury of head, initial encounter (principal); J44.9 Chronic obstructive pulmonary disease, unspecified; E78.2 Mixed hyperlipidemia; Z79.02 Long term (current) use of antithrombotics/antiplatelets; I10 Essential (primary) hypertension; Z87.891 Personal history of nicotine dependence; S60.221A Contusion of right hand, initial encounter; I25.10 Atherosclerotic heart disease of native coronary artery without angina pectoris; W10.1XXA Fall (on)(from) sidewalk curb, initial encounter; Z79.01 Long term (current) use of anticoagulants; K21.9 Gastro-esophageal reflux disease without esophagitis; M81.0 Age-related osteoporosis without current pathological fracture; S40.021A Contusion of right upper arm, initial encounter; S60.211A Contusion of right wrist, initial encounter
CPT/HCPCS: 70450; 73030; 73130; 85027; 99283; A4216

== ENCOUNTER 2025-04-11 21:30 | Inpatient (IN) | payer MEDICARE, MEDICAID, SELFPAY ==
[2025-04-11 21:30] VITALS: BP 170/85; PULSE 75; RESP 14; TEMP 36.4; O2SAT 95; BMI 29.1
[2025-04-11 21:34] VITALS: BMI 28.6
--- NOTE | 2025-04-11 21:34 | EKG12_ITS ---
Test Reason : DYSRHYTHMIA Blood Pressure : */* mmHG Vent. Rate : 67 BPM Atrial Rate : 67 BPM P-R Int : 184 ms QRS Dur : 74 ms QT Int : 404 ms P-R-T Axes : 72 32 63 degrees QTcB Int : 426 ms Normal sinus rhythm Normal ECG Confirmed by SHAGUFTA SHERMAN, LESTER ([id number]), sports editor ISAAK BHARDWAJ ([id number]) on 04/14/2025 8:19:49 AM Referred By: Confirmed By: LESTER EAGLE MD
--- NOTE | 2025-04-11 21:34 | CT_ITS ---
PROCEDURE: STROKE BRAIN/HEAD WITHOUT CONT 04/11/2025 REASON FOR EXAM: NEURO DEFICIT, ACUTE, STROKE SUSPECTED TECHNIQUE: Procedure Code: CTBR.ST Modality: CT Procedure: STROKE BRAIN/HEAD WITHOUT CONT Coronal and Sagittal reconstruction series were provided. One or more dose reduction techniques were used (e.g., Automated exposure control, adjustment of the mA and/or kV according to patient size, use of iterative reconstruction technique. RADIATION DOSE SUMMARY: CTDlvol: 44.99 mGy DLP: 745.49 mGycm COMPARISON: 01/31/2025 FINDINGS: BRAIN: No acute intraparenchymal hemorrhage. No mass lesion. No CT evidence for acute territorial infarct. No midline shift or extra-axial collection. Mild periventricular white matter low attenuation, likely microvascular ischemic changes. VENTRICLES: No hydrocephalus. ORBITS: Intraocular lens implants bilaterally. The orbits are otherwise unremarkable. SINUSES AND MASTOIDS: The paranasal sinuses and mastoid air cells are clear. SOFT TISSUES: No acute abnormality seen. BONES: No acute osseous abnormality seen. CT/STROKE Brain/Head without Cont IMPRESSION: No acute intracranial abnormality. Reading Location: [id number]
--- NOTE | 2025-04-11 21:35 | CT_ITS ---
PROCEDURE: STROKE CTA HEAD AND NECK W/CON 04/11/2025 REASON FOR EXAM: NEURO DEFICIT, ACUTE, STROKE SUSPECTED TECHNIQUE: Procedure Code: CTCTA.ST.HN Modality: CT Procedure: STROKE CTA HEAD AND NECK W/CON Axial CTA images of the head and neck performed with intravenous contrast. MIP reconstructed images were created and reviewed. Note: Per PQRS, the description of internal carotid artery percent stenosis, including 0 percent or normal exam, is based on [place] Symptomatic Carotid Endarterectomy Trial (NASCET) criteria. CONTRAST: Isovue 370 VOLUME: 100 mL One or more dose reduction techniques were used (e.g., Automated exposure control, adjustment of the mA and/or kV according to patient size, use of iterative reconstruction technique). RADIATION DOSE SUMMARY: CTDlvol: 16.61, 17.02 mGy DLP: 628 mGycm COMPARISON: 06/07/2022 FINDINGS: CTA HEAD: INTERNAL CAROTID ARTERIES (ICA) No significant stenosis. No occlusion. No aneurysm. ANTERIOR CEREBRAL ARTERIES (CORRINA) No significant stenosis. No occlusion. No aneurysm. MIDDLE CEREBRAL ARTERIES (MCA) No significant stenosis. No occlusion. No aneurysm. 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 No occlusion. No aneurysm. BASILAR ARTERY No significant stenosis. No occlusion. No aneurysm. VERTEBRAL ARTERIES No significant stenosis. No dissection or occlusion. VENOUS STRUCTURES Patent. BONES No acute osseous abnormality. CTA NECK: COMMON CAROTID ARTERIES (CCA) No significant stenosis. No dissection or occlusion. INTERNAL CAROTID ARTERIES No stenosis by NASCET criteria. No dissection or occlusion. VERTEBRAL ARTERIES No significant stenosis. No dissection or occlusion. SOFT TISSUES Punctate left parotid gland sialolith. Staple 0.7 cm heterogeneous nodule in the left thyroid lobe. No lymphadenopathy. BONES No acute osseous abnormality. Degenerative changes of the spine. OTHER Moderate centrilobular emphysema. CT/STROKE CTA Head AND Neck W/Con IMPRESSION: No hemodynamically significant stenosis within the head or neck. No evidence of intracranial aneurysm. Reading Location: [facility]
--- NOTE | 2025-04-11 21:35 | ED.VIS.STROK ---
HPI History of Present Illness Chief Complaint: Stroke Alert Narrative Narrative: Patient is a 69-year-old female presenting to the emergency department for possible strokelike symptoms. Patient has a past medical history of CVA, TIA, CAD, hypertension, hyperlipidemia. Patient states that she went to bed around 1 AM last night and this morning when she woke up she had worsening right sided weakness than normal, slurred speech and felt like she was off balance when ambulating. She states that her prior stroke left her with right-sided weakness however this is worse. She denies any recent falls or head trauma. Denies any neck or back pain. She is on Plavix, denies any other use of oral anticoagulation. [facility] Medical History Osteoporosis Kidney stones Kidney disease GERD (gastroesophageal reflux disease) Myocardial infarct Internal impingement of right shoulder Hypothyroidism Abnormal Holter monitor finding Sinus pause Mixed hyperlipidemia Essential hypertension History of IBS Wears glasses Wears dentures Depression Anxiety Thyroid disease Ambulates with cane History of renal disease Arthritis High cholesterol Restless legs Difficulty swallowing Difficulty chewing History of hiatal hernia Gastric reflux Former smoker Stroke/cerebrovascular accident History of echocardiogram History of stress test History of heart attack History of irregular heartbeat Fuchs' corneal dystrophy HTN (hypertension) COPD (chronic obstructive pulmonary disease) Constipation Hypoxia Diaphragm paralysis History of cerebrovascular disease History of CVA (cerebrovascular accident) Home Medications Medication Instructions Recorded Last Taken Type clopidogrel 75 mg tablet 75 mg PO DAILY BLOOD THINNER 30 06/08/22 09/29/24 Rx days #30 tabs atorvastatin 40 mg tablet 40 mg PO DAILY 07/01/22 09/29/24 History losartan 25 mg tablet 25 mg PO DAILY #90 tabs 09/29/22 09/29/24 Rx alendronate 70 mg tablet 70 mg PO Q7D 08/14/23 09/29/24 History cholecalciferol (vitamin D3) 125 125 mcg PO DAILY 08/14/23 09/29/24 History mcg (5,000 unit) tablet citalopram 10 mg tablet 10 mg PO DAILY 08/14/23 09/29/24 History montelukast 10 mg tablet 10 mg PO DAILY 12/01/23 09/29/24 History multivitamin (One Daily 1 tab PO DAILY 01/16/24 09/29/24 History Multivitamin tablet) ondansetron 4 mg disintegrating 4 mg PO Q8H PRN PRN Nausea #10 tabs 07/31/24 Unknown Rx tablet levothyroxine 75 mcg tablet 75 mcg PO DAILY 09/30/24 09/29/24 History pantoprazole 40 mg tablet,delayed 40 mg PO DAILY 09/30/24 09/29/24 History release levocetirizine 5 mg tablet 5 mg PO DAILY ALLERGIES #90 tabs 10/16/24 Unknown Rx (Allergy Relief (levocetirizine)) albuterol sulfate 90 mcg/actuation 2 puff inhalation Q6H PRN 10/28/24 Unknown Rx aerosol inhaler Shortness Of Breath #3 ea fluticasone fur. 200 mcg-umeclid 1 inh inhalation DAILY #60 ea 01/06/25 Unknown Rx 62.5 mcg-vilant 25 mcg inhalat.powder (Trelegy Ellipta) naproxen 500 mg tablet 500 mg PO BID PRN #20 tabs 01/19/25 Unknown Rx oxycodone 5 mg tablet 5 mg PO Q6H PRN pain 3 days #12 01/19/25 Unknown Rx tabs Allergy/AdvReac Type Severity Reaction Status Date / Time hydrocodone bitartrate (From Allergy HALLUCINATE Verified 01/31/25 17:58 Vicodin) S piperacillin (From Zosyn) Allergy Hives Verified 01/31/25 17:58 tazobactam (From Zosyn) Allergy Hives Verified 01/31/25 17:58 vancomycin Allergy Rash Verified 01/31/25 17:58 fish derived AdvReac Anaphylaxis Verified 01/31/25 17:58 morphine AdvReac HALLUCINATE Verified 01/31/25 17:58 S Family History Mother Diabetes Heart disease Hypertension High cholesterol Father Heart disease Hypertension High cholesterol CVA (cerebral vascular accident) Surgical History History of right breast biopsy History of surgery on lower extremity History of bilateral cataract extraction History of shoulder surgery History of tubal ligation Social History household members: significant other housing: apartment pets and animals: Yes pets and animals: dog(s) Smoking Status: Former smoker quit date: 10/28/19 pack-years: 25 Tobacco: How many years used: 25 second hand exposure: Yes alcohol intake: never substance use type: does not use caffeine: Yes Type: coffee Number of servings: 1 ROS ROS ED ROS Narrative see HPI EXAM Physical Exam Narrative Exam Narrative: Vital signs: Reviewed General: Alert and orientedx3. No acute distress HEENT: Head is normocephalic and atraumatic, sinuses nontender, pupils equal round and reactive. Nares are patent. Oropharynx and throat exams normal. Neck: Supple without lymphadenopathy nontender Cardiovascular: Regular rate and rhythm, no murmurs. No rubs or gallops. Normal S1 and S2 Respiratory: Clear to auscultation bilaterally. No wheezes, rales, rhonchi Abdominal: Soft and nontender. Normal bowel sounds. No guarding or rebound. Nonsurgical abdomen Extremities: No tenderness. No bruising. Normal range of motion. Normal sensation. Skin: No rash or redness. The rest of the physical exam is unremarkable Const Vital Signs: 04/11/25 21:30 04/11/25 21:30 04/11/25 21:44 Temperature 97.5 F L 97.5 F L Temperature Source Temporal Temporal Pulse Rate 75 Respiratory Rate 14 Blood Pressure 170/85 H Blood Pressure Mean 113 Pulse Ox 95 96 Oxygen Delivery Method Room Air Room Air 04/11/25 21:45 Temperature Temperature Source Pulse Rate 75 Respiratory Rate 16 Blood Pressure 170/74 H Blood Pressure Mean 106 Pulse Ox 91 Oxygen Delivery Method Room Air MDM MDM MDM Narrative Medical decision making narrative: Patient is a 69-year-old female presenting to the emergency department for worsening right sided weakness from baseline, slurred speech and feeling off balance. Stroke team was called in triage prior to my evaluation of the patient. Last known well based on very poor history is last evening before she went to bed around 1 AM. NIH of 2 on my evaluation for sensory deficit on the right sided face and right arm drift with not hitting the bed. I do not note any slurred speech on my evaluation. EKG shows normal sinus rhythm with no ischemic changes. No dysrhythmia. CT of the brain with no acute intracranial abnormality. CTA head and neck with no significant stenosis. No intracranial aneurysm. CBC with no leukocytosis and a normal hemoglobin. BMP with no significant abnormalities. Troponin within normal limits. Patient was evaluated by telestroke, Dr. Victorino Judd. Patient is out of time window for TNK. Low NIH. Recommended admission for further stroke up. Could be recrudescence symptoms. Discussed negative imaging and labs with the patient and recommendation for admission for further stroke workup. She is agreeable. is now at bedside and was also updated. Patient admitted to the hospitalist, Dr. Gannon. Clinical impression: Stroke like symptoms History & Record Review Discussion w/independent historian: Patient and Significant other Additional record(s) reviewed:: Prior labs Lab Data Attestation: I reviewed the patient's lab results. Labs: Laboratory Results - last 24 hr 04/11/25 21:34 WBC 4.4 RBC 4.30 Hgb 13.4 Hct 40.8 MCV 94.9 MCH 31.2 MCHC 32.8 RDW Std Deviation 45.9 H RDW Coeff of Keo 13.2 Plt Count 175 MPV 8.7 Immature Gran % (Auto) 0.500 Neut % (Auto) 64.2 Lymph % (Auto) 22.3 Kern % (Auto) 8.9 Eos % (Auto) 2.7 Baso % (Auto) 1.4 H Absolute Neuts (auto) 2.8 Absolute Lymphs (auto) 0.98 Nucleated RBC % 0 PT 13.7 INR 1.0 APTT 27.3 Sodium 142 Potassium 4.0 Chloride 107 Carbon Dioxide 26.7 Anion Gap 8 BUN 18 Creatinine 1.04 Estim Creat Clear Calc 56.65 Est GFR (MDRD) Non-Af 59 L BUN/Creatinine Ratio 17.2 Glucose 75 Calcium 9.1 Magnesium 2.1 Troponin T High Sens 11 Radiography Diagnostic Testing: Clinical Impression(s) from Imaging Studies Brain CT 04/11/25 21:34 IMPRESSION: No acute intracranial abnormality. Reading Location: [facility] Head/Neck CTA 04/11/25 21:35 IMPRESSION: No hemodynamically significant stenosis within the head or neck. No evidence of intracranial aneurysm. Reading Location: [facility] Discharge Plan Triage Chief Complaint: Stroke Alert ED Provider: Maura Dexter Dx/Rx/DC Orders Primary Care Provider: Bird Ronquillo NIHSS NIHSS 1a. Level of Consciousness: 0 - Alert; keenly responsive 1b. LOC Questions: 0 - Answers BOTH questions correctly 1c. LOC Commands: 0 - Performs BOTH tasks correctly 2. Best Gaze: 0 - Normal 3. Visual: 0 - No visual loss 4. Facial Palsy: 0 - Normal symmetrical movements 5a. Left Arm: 0 - No drift; arm holds 90 (or 45) degrees for full 10 seconds 5b. Right Arm: 1 - Drift; arm drifts downward but doesn’t hit the bed 6a. Left Le - No drift; leg holds 30-degree position for full 5 seconds 6b. Right Le - No drift; leg holds 30-degree position for full 5 seconds 7. Limb Ataxia: 0 - Absent 8. Sensory: 1 - [id number] sensory loss; 9. Best Language: 0 - No aphasia; normal 10. Dysarthria: 0 - Normal 11. Extinction and Inattention: 0 - No abnormality Total: 2 Stroke Questions Stroke Team Activated: Yes Reviewed Inclusion/Exclusion criteria: Yes IV Thrombolytic Administered: No No contraindications from thrombolytic administration: No
--- OUTSIDE RECORDS SUMMARY | 2025-04-11 21:42 | XMS RPT_ITS | CCD ---
Author Organization [facility] Care Team Providers Care Risk Control Product Liability Director Name Role Phone [facility], Danae Cobb Primary Care Pro vider [facility], Danae Barrazalanre Referring Provid er KAMINI Pathak Attending Provider Nurse, Surgery Attending Provider Unavailable Dr. Arslan Love Attending Provider [facility], Danae Barrazalanre Primary Care Pro vider [facility], Lisle Jorge Referring Provid er KAMINI Pathak Attending Provider Friend, Dr. Madison Attending Provider Friend, Dr. Madison Referring Provider Friend, Dr. Madison Other Provider Clinic, [place] Jorge Primary Care Provider Un available Jovanni Garcia Unavailable [facility], Lisleitalia Barrazalanre Primary Care Pro vider [facility], [place] Jorge Referring Provid er [facility], [place] Christilanre Primary Care Pro vider [facility], [place] Ginaman Referring Provid er Dr. Bina Walter Emergency Provider Dr. Rupal Gannon Admit Provider Dr. Rupal Gannon Other Provider Kotsonis, Dr. Jose F Other Provider Dr. Lj De Santiago Other Provider Loco SCHOOL CLEANER, SCHOOL CLEANER-C Yamile Attending Provider Jovanni Garcia Unavailable [facility], [facility] Primary Care Provider Un available Jovanni Garcia Unavailable [facility], [facility] Primary Care Pro vider Jim SCHOOL CLEANER, SCHOOL CLEANER-C Robin Attending Provider CARLO Aguilar Referring Provider [phone] [facility], [facility] Referring Provid er [facility], [facility] Primary Care Provider Un available Jovanni Garcia Unavailable Dr. Cole Bran Attending Provider Dr. Eduardo Ely Emergency Provider [phone] Dr. Rupal Gannon Admit Provider Dr. Rupal Gannon Other Provider Dr. Lashawn Ellington Attending Provider Dr. Lashawn Ellington Other Provider [facility], [facility] Primary Care Pro vider Jim SCHOOL CLEANER, SCHOOL CLEANER-C Robin Attending Provider Dr. Marsha Vaughn Attending Provider Dr. Marsha Vaughn Referring Provider Laura Lacey Attending Provider Unavailable Dr. Ramesh Sanabria Attending Provider [facility], [facility] Primary Care Pro vider [facility], [facility] Referring Provid er MD Giuseppe Mireles Attending Provider [facility], [facility] Primary Care Pro vider Dr. Marsha Vaughn Attending Provider Dr. Marsha Vaughn Referring Provider Dr. Cole Bran Attending Provider Dr. Eduardo Ely Emergency Provider [phone] Dr. Rupal Gannon Admit Provider Dr. Rupal Gannon Other Provider Dr. Lashawn Ellington Attending Provider Dr. Lashawn Ellington Other Provider Laura Lacey Attending Provider Unavailable [facility], [facility] Referring Provid er Dr. Ramesh Sanabria Attending Provider MD Giuseppe Mireles Attending Provider [facility], [facility] Primary Care Pro vider [facility], [facility] Referring Provid er Dr. Arslan Love Attending Provider Yfn SUÁREZ, [place] Laura Shell Attending Provider [facility], [facility] Primary Care Pro vider [facility], [facility] Referring Provid er Tatiana Ronquillo MD Primary Care Provider [facility], [facility] Referring Provid er Jim SCHOOL CLEANER, SCHOOL CLEANER-C Robin Attending Provider Dr. Bird Ronquillo Primary Care Provider [phone] Dr. Bird Ronquillo Primary Care Provider Dr. Bird Ronquillo Referring Provider Dr. Arslan Love Attending Provider [phone] Tatiana Ronquillo MD Primary Care Provider [facility], [place] Christifabiola Primary Care Provider Un available TATIANA RONQUILLO Primary Care Unavailab SABINE Morrison Referring Unavailable TATIANA RONQUILLO Primary Care Unavailab SABINE Morrison Referring Unavailable TATIANA RONQUILLO Primary Care Unavailab TATIANA Cade Primary Care Unavailab le PREBISH, MEAGHAN Attending Unavailable TATIANA RONQUILLO Primary Care Unavailab le CONKLE-LAGROUX, YAMILE Referring Unavaila ble Podlogar IN HOME SALES CONSULTANT.WILVERShavonne Unavailable ROBIN GAFFNEY Attending Unavailable TATIANA RONQUILLO Primary Care Unavailab le TATIANA RONQUILLO Referring Unavailab le JUSTO HALEY Attending Unavailable ISIDRO LIPSCOMB Referring Unavailable TATIANA RONQUILLO Primary Care Unavailab le [place] IN HOME SALES CONSULTANT.MESSENGER COPYSabine Unavailable [place] IN HOME SALES CONSULTANT.MESSENGER COPY, Sabine Unavailable [place] IN HOME SALES CONSULTANT.MESSENGER COPY, Sabine Unavailable Shima SHERMAN, Dr. Pang Primary Care Provider [address], Dr. Shaw Attending Provider CatiaLadan STREET, Dr. Shaw Emergency Provider Sara STREET, Dr. Person Attending Provider Sara STREET, Dr. Person Emergency Provider Sherif SHERMAN, Dr. Ward Attending Provider Sherif SHERMAN, Dr. Ward Emergency Provider [place] IN HOME SALES CONSULTANT.MESSENGER COPYSabine Unavailable Shima SHERMAN, Dr. Pang Primary Care Provider CatiaLadan STREET, Dr. Shaw [facility]ending Provider [facility] Dr. Shaw Emergency Provider Jim SCHOOL CLEANER-CRobin Attending Provider Jim SCHOOL CLEANER-CRobin Referring Provider [place] IN HOME SALES CONSULTANT.MESSENGER COPYBoSabine Unavailable Shima SHERMAN, Dr. Pang Primary Care Provider Shima SHERMAN, Dr. Pang Referring Provider Naif Jackson MD Emergency Provider [phone] Shima SHERMAN, Dr. Pang Primary Care Provider Naif Jackson MD Attending Provider Kerry STREET, Dr. Arteaga Emergency Provider Shima, Bird Primary Care Unavailable Jim SCHOOL CLEANER, Robin Attending Unavailable Zackeryley, Bird Referring Unavailable Jenni Payne Attending Unavailable Bursley, Bird Primary Care Unavailable Bursley, Bird Primary Care Unavailable Fernandez SCHOOL CLEANER, Robin Attending Unavailable Jim SCHOOL CLEANER, Robin Referring Unavailable Bursley, Bird Primary Care Unavailable Naif Jackson Attending Unavailable Shima, Bird Referring Unavailable Jim SCHOOL CLEANER, Robin Attending Unavailable Zackeryley, Bird Primary Care Unavailable Colin Caba Attending Unavailabl e Bursley, Bird Primary Care Unavailable Colin Caba Attending Unavailabl e Zackeryley, Bird Primary Care Unavailable Raza Ruiz Attending Unavailable Bursley, Bird Primary Care Unavailable Ed Gorman Attending Unavailable Shima, Bird Primary Care Unavailable TATIANA RONQUILLO Referring Unavailab le TATIANA RONQUILLO Primary Care Unavailab le TATIANA RONQUILLO Referring Unavailab le TATIANA RONQUILLO Primary Care Unavailab le O'MIKEYAMILE Attending Unavailable TATIANA RONQUILLO Referring Unavailab le TATIANA RONQUILLO Primary Care Unavailab le O'MIKEYAMILE SIFUENTES Attending Unavailable TATIANA RONQUILLO Primary Care Unavailab TATIANA Cade Referring Unavailab SABINE Morrison Attending Unavailable TATIANA RONQUILLO Primary Care Unavailab le TATIANA RONQUILLO Primary Care Unavailab SABINE Morrison Referring Unavailable TATIANA RONQUILLO Referring Unavailab le TATIANA RONQUILLO Primary Care Unavailab le O'MIKEYAMILE Attending Unavailable O'MIKEYAMILE SIFUENTES Attending Unavailable TATIANA RONQUILLO Referring Unavailab le TATIANA RONQUILLO Primary Care Unavailab le O'MIKEYAMILE Attending Unavailable TATIANA RONQUILLO Primary Care Unavailab le TATIANA RONQUILLO Referring Unavailab TATIANA Cade Primary Care Unavailab le PODLOGAR, SHAVONNE Attending Unavailable TATIANA RONQUILLO Referring Unavailab le TATIANA RONQUILLO Primary Care Unavailab le TATIANA RONQUILLO Referring Unavailab le TATIANA RONQUILLO Primary Care Unavailab le PODLOGAR, SHAVONNE Referring Unavailable TATIANA RONQUILLO Primary Care Unavailab le TATIANA RONQUILLO Attending Unavailab TATIANA Cade Primary Care Unavailab le TATIANA RONQUILLO Primary Care Unavailab MORAIMA Pickens Attending Unavailabl e TATIANA RONQUILLO Referring Unavailab le TATIANA RONQUILLO Primary Care Unavailab le TATIANA RONQUILLO Primary Care Unavailab le PODLOGAR, SHAVONNE Attending Unavailable TATIANA RONQUILLO Referring Unavailab le TTAIANA RONQUILLO Primary Care Unavailab TATIANA Cade Attending Unavailab le TATIANA RONQUILLO Primary Care Unavailab le TATIANA RONQUILLO Primary Care Unavailab le PODLOGAR, SHAVONNE Referring Unavailable TATIANA RONQUILLO Attending Unavailab TATIANA Cade Primary Care Unavailab le TATIANA RONQUILLO Primary Care Unavailab le PODLOGAR, SHAVONNE Referring Unavailable TATIANA RONQUILLO Attending Unavailab le TATIANA RONQUILLO Primary Care Unavailab le Allergies Allergy Classification Reported Allergen(s) Allergy Type Date of Onset Reaction(s) Facility (20 sources) Fish derivative; 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: [fish derived] Propensity to adverse reactions 2 Anaphylaxis [facility] (20 sources) HYDROcodone; 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: [HYDROCODONE BITARTRATE] Drug Allergy 9 Other: See Comments [facility] Comment on above: HALLUCINATES (20 sources) Morphine; 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: [MORPHINE] Drug Allergy 2 Mental Status Change, Other: See Comments [facility] Comment on above: HALLUCINATES (20 sources) Acetaminophen / HYDROcodone; 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: [HYDROCODONE-ACET AMINOPHEN] Drug Allergy 2 Vomiting [facility] (20 sources) Fish; 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: [FISH] Food Allergy 3 Swelling, Shortness of Breath [facility] (18 sources) Vancomycin Drug Allergy 2 Rash [facility] (10 sources) Piperacillin Drug Allergy 3 [facility] (10 sources) tazobactam Drug Allergy 3 [facility] (20 sources) Aspirin / Dipyridamole; 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: [ASPIRIN-DIPYRIDA MOLE] Drug Allergy 3 Other: See Comments [facility] Work Phone: (1 source) Morphine Drug Allergy 5 [facility] Repository (1 source) Piperacillin Drug Allergy 5 [facility] Repository (1 source) tazobactam Drug Allergy 5 [facility] Repository (1 source) Vancomycin Drug Allergy 5 [facility] Repository Medications Current Medications Medication Drug Class(es) Dates Sig (Normalized) Sig (Original) alendronic acid 70 mg oral tablet (20 sources) Bisphosphonate Start: 02-14-2023 End: 12-18-2025 take 1 tablet by mouth every week Alendronate 70 mg tablet Active 70 mg PO Q7D August 14, 2023 12:00am Comment on above: Take 1 tablet by zak th one time a week. Take with a full glass of water, on an empty stomach; do NOT lie down for 30minutes. amoxicillin 875 mg oral tablet (1 source) Penicillin-class Antibacterial Start: 08-02-2023 End: 08-07-2023 take 1 tablet by mouth twice daily amoxicillin (AMOXIL) 875 mg tablet Take 1 tablet by mouth two times a day for 5 days. 10 tablet 0 08/02/2023 08/07/2023 Active Comment on above: Take 1 tablet by zak th two times a day for 5 days. atorvastatin 40 mg oral tablet (20 sources) HMG-CoA Reductase Inhibitor Start: 03-03-2023 End: 07-10-2024 take 2 tablets by mouth once daily at bedtime for hyperlipidemia atorvastatin (LIPITOR) 20 mg tablet Take 2 tablets by mouth daily at bedtime. For cholesterol. 30 tablet 11 03/03/2023 01/11/2024 Discontinued Start: 07-01-2022 End: 05-27-2025 take 1 tablet by mouth once daily Atorvastatin 40 mg t ablet Active 40 mg PO DAILY July 01, 2022 1:00am Start: 06-08-2022 End: 07-01-2022 take 4 tablets by mouth at bedtime Atorvastatin 10 mg tablet Discontinued 40 mg PO AT BEDTIME 120 30 0 June 08, 2022 2:23pm July 01, 2022 4:29pm CHOLESTEROL Start: 06-08-2022 End: 07-01-2022 take 40 mg by mouth at bedtime Atorvastatin Discontinu ed 40 MG PO AT BEDTIME 120 30 June 08, 2022 2:23pm July 01, 2022 4:29pm Start: 08-17-2021 End: 06-08-2022 take 1 tablet by mouth at bedtime Atorvastatin 10 mg t ablet Discontinued 10 mg PO AT BEDTIME August 17, 2021 12:00am June 08, 2022 2:23pm CHOLESTEROL Start: 09-29-2017 End: 08-17-2021 take 10 mg by mouth at bedtime Atorvastatin 40 MG tabl et Discontinued 10 mg PO AT BEDTIME September 29, 2017 12:00am August 17, 2021 8:00am cholesterol Start: 09-29-2017 End: 08-17-2021 take 10 mg by mouth at bedtime Atorvastatin Discontinu ed 10 MG PO AT BEDTIME September 29, 2017 12:00am August 17, 2021 8:00am Start: 05-12-2017 End: 09-26-2017 take 1 tablet by mouth at bedtime Atorvastatin 40 MG t ablet Discontinued 40 mg PO AT BEDTIME 30 0 May 12, 2017 1:00am September 26, 2017 2:00pm Start: 03-03-2015 End: 03-03-2023 take 1 tablet by mouth once daily at bedtime for hyperlipidemia atorvastatin (LIPITOR) 20 mg tablet Take 1 tablet by mouth daily at bedtime. For cholesterol. 30 tablet 11 03/03/2015 03/03/2023 Discontinued Comment on above: Take 1 tablet by zak th daily at bedtime. For cholesterol. Take 2 tablets by mo uth daily at bedtime. For cholesterol. cholecalciferol 0.125 mg oral tablet (20 sources) Vitamin D Start: take 1 tablet by mouth once daily Cholecalciferol (Vitamin D3) 125 mcg (5,000 unit) tablet Active 125 ug PO DAILY August 14, 2023 12:00am Start: 04-28-2023 End: 06-06-2024 take 1 tablet by mouth once daily cholecalciferol (VITAMIN D3) 5,000 unit tab Take 1 tablet by mouth once daily. 90 tablet 1 06/07/2024 Active Start: 12-14-2021 End: 01-26-2023 take 1 tablet by mouth once daily cholecalciferol (VITAMIN D3) 5,000 unit tab Take 1 tablet by mouth once daily. 90 tablet 1 01/26/2023 Active Start: 08-14-2018 End: 01-16-2024 take 1 capsule by mouth once daily Cholecalciferol (Vitamin D3) 5,000 unit capsule Discontinued 5000 U PO DAILY August 14, 2018 12:00am January 16, 2024 1:27pm SUPPLEMENT Start: 10-27-2014 take [address] [facility] every week cholecalciferol, Vitamin D3, (VITAMIN D3) 50,000 unit cap capsule Indications: Vitamin D deficiency Take 1 capsule by mouth once each week. 12 capsule 3 10/27/2014 Active Comment on above: Take [address] [facility] once each week. Take 5,000 Units by mouth once daily. Take 1 tablet by [facility] once daily. Fluticasone Furoate-Vilanterol (20 sources) Corticosteroid, beta2-Adrenergic Agonist Start: 04-16-2021 Fluticasone Furoate-Vilanterol (Breo Ellipta) 200-25 mcg/dose blister with device Active EACH INHALATION April 16, 2021 2:26pm Start: 11-03-2020 End: 12-29-2020 Fluticasone Furoate-Vilanter ol (Breo Ellipta) 200-25 mcg/dose Blister With Device Discontinued 1 INH INHALATION DAILY November 03, 2020 5:04pm December 29, 2020 2:29pm Start: 11-03-2020 End: 12-29-2020 Fluticasone Furoate-Vilanter ol (Breo Ellipta) 200-25 mcg/dose Blister With Device Discontinued 1 NMA INHALATION DAILY November 03, 2020 12:00am December 29, 2020 2:29pm Start: 11-03-2020 End: 12-29-2020 Fluticasone Furoate-Vilanter ol (Breo Ellipta) 200-25 mcg/dose Blister With Device Discontinued 1 INH INHALATION DAILY November 02, 2020 11:00pm December 29, 2020 1:29pm Start: 11-03-2020 End: 12-29-2020 Fluticasone Furoate-Vilanter ol (Breo Ellipta) 200-25 mcg/dose Blister With Device Discontinued 1 INH INHALATION DAILY November 03, 2020 12:00am December 29, 2020 2:29pm Start: 10-23-2020 BREO ELLIPTA 2 00-25 mcg/dose inhaler INHALE 1 INHALATION BY MOUTH EVERY DAY 0 10/23/2020 Active Start: 12-03-2019 End: 05-12-2020 Fluticasone Furoate-Vilanter ol 200-25 mcg/dose blister with device Discontinued 1 NMA INHALATION DAILY 60 6 December 03, 2019 11:53am May 12, 2020 1:35pm Start: 12-03-2019 End: 05-12-2020 Fluticasone Furoate-Vilanter ol 200-25 mcg/dose blister with device Discontinued 1 NMA INHALATION DAILY 60 December 03, 2019 11:53am May 12, 2020 1:35pm Start: 12-03-2019 End: 05-12-2020 Fluticasone Furoate-Vilanter ol Discontinued 1 INH INHALATION DAILY 60 December 03, 2019 10:53am May 12, 2020 12:35pm Start: 12-03-2019 End: 05-12-2020 Fluticasone Furoate-Vilanter ol Discontinued 1 INH INHALATION DAILY 60 December 03, 2019 11:53am May 12, 2020 1:35pm Start: 11-26-2019 End: 12-03-2019 Fluticasone Furoate-Vilanter ol 200-25 mcg/dose blister with device Discontinued 1 NMA INHALATION DAILY 60 November 26, 2019 7:43am December 03, 2019 11:55am Start: 11-26-2019 End: 12-03-2019 Fluticasone Furoate-Vilanter ol 200-25 mcg/dose blister with device Discontinued 1 NMA INHALATION DAILY 60 November 26, 2019 7:43am December 03, 2019 11:55am Start: 11-26-2019 End: 12-03-2019 Fluticasone Furoate-Vilanter ol Discontinued 1 INH INHALATION DAILY 60 November 26, 2019 6:43am December 03, 2019 10:55am Start: 11-26-2019 End: 12-03-2019 Fluticasone Furoate-Vilanter ol Discontinued 1 INH INHALATION DAILY 60 November 26, 2019 7:43am December 03, 2019 11:55am Start: 06-12-2019 End: 11-26-2019 take 1 puff(s) by inhalation once daily Fluticasone Furoate-Vilanterol Discontinued 1 PUFF IH DAILY June 12, 2019 3:45pm November 26, 2019 7:43am Start: 06-12-2019 End: 11-26-2019 Fluticasone Furoate-Vilanter ol 200-25 blister with device Discontinued 1 NMA IH DAILY June 12, 2019 1:00am November 26, 2019 7:43am Start: 06-12-2019 End: 11-26-2019 take 1 puff(s) by inhalation once daily Fluticasone Furoate-Vilanterol Discontinued 1 PUFF IH DAILY June 12, 2019 12:00am November 26, 2019 6:43am Start: 06-12-2019 End: 11-26-2019 take 1 puff(s) by inhalation once daily Fluticasone Furoate-Vilanterol Discontinued 1 PUFF IH DAILY June 12, 2019 1:00am November 26, 2019 7:43am Comment on above: INHALE 1 INHALATION BY MOUTH EVERY DAY Fluticasone-Umeclidin -Vilanter (12 sources) Start: 01-06-2025 Gbhgpxxibgk-Mudhyrtpy-Ym lanter (Trelegy Ellipta) 200-62.5-25 mcg blister with device Active 1 NMA INHALATION DAILY 60 January 06, 2025 9:00am Start: 2024 End: 01-06-2025 Oqpnrzzynic-Ytyvzzyku-Gzagnq er (Trelegy Ellipta) 200-62.5-25 mcg blister with device Discontinued 1 NMA INHALATION DAILY 60 2024 2:12pm January 06, 2025 9:01am Start: 2024 Fluticasone-Um eclidin-Vilanter (Trelegy Ellipta) 200-62.5-25 mcg blister with device Active 1 NMA INHALATION DAILY 60 2024 2:12pm Start: 2024 Fluticasone-Um eclidin-Vilanter (Trelegy Ellipta) 200-62.5-25 mcg blister with device Active 1 NMA INHALATION DAILY 2024 2:12pm Start: 12-01-2023 End: 2024 Acuyaafbljm-Urbeguwfz-Ahepyz er (Trelegy Ellipta) 200-62.5-25 mcg blister with device Discontinued 1 NMA INHALATION DAILY 60 December 01, 2023 12:00am 2024 2:15pm Start: 12-01-2023 End: 2024 Rzhbvivbytz-Euspzqqfu-Heueif er (Trelegy Ellipta) 200-62.5-25 mcg blister with device Discontinued 1 NMA INHALATION DAILY December 01, 2023 12:00am 2024 2:15pm iv contrast (will be provide d with radiology test) (6 sources) Start: 08-06-2024 End: 08-07-2024 iv contrast (will be provide d with radiology test) Indications: Hepatic cyst MRI Liver Inject, intravenously, once for 1 dose. No IV access, insert saline lock prior to the beginning of sedation, infusion, injection of imaging exam. Discontinue saline lock post exam. If Pt. has a central line or IVAD, may access for administration according to line specific nursing protocol. Once exam is complete flush line and de-access according to line specific nursing protocol in the MR contrast administration guidelines link. 1 Each 08/06/2024 08/07/2024 Active Start: 04-18-2024 End: 04-19-2024 iv contrast (will be provide d with radiology test) CT ABD/PEL -Inject, intravenously, once for 1 dose.No IV access, insert saline lock prior to the beginning of sedation, infusion, injection of imaging exam. Discontinue saline lock post exam. If Pt. has a central line or IVAD, may access for administration according to line specific nursing protocol. Once exam is complete flush line and de-access according to line specific nursing protocol in the CT contrast administration guidelines link. 1 Each 04/18/2024 04/19/2024 Start: 04-18-2024 End: 04-19-2024 iv contrast (will be provide d with radiology test) CT ABD/PEL -Inject, intravenously, once for 1 dose.No IV access, insert saline lock prior to the beginning of sedation, infusion, injection of imaging exam. Discontinue saline lock post exam. If Pt. has a central line or IVAD, may access for administration according to line specific nursing protocol. Once exam is complete flush line and de-access according to line specific nursing protocol in the CT contrast administration guidelines link. 1 Each 04/18/2024 04/19/2024 Active levothyroxine sodium 0.075 mg oral tablet (20 sources) l-Thyroxine Start: 05-01-2024 End: 05-27-2025 take 1 tablet by mouth once daily Levothyroxine 75 mcg tablet Active 75 ug PO DAILY September 30, 2024 12:00am Start: 10-09-2020 End: 10-05-2024 take 1 tablet by mouth once daily Levothyroxine 50 mcg tablet Discontinued 50 ug PO DAILY August 17, 2021 12:00am September 30, 2024 9:11am THYROID Start: 01-22-2019 End: 08-17-2021 take 1 tablet by mouth once daily Levothyroxine 25 tablet Discontinued 25 ug PO DAILY January 22, 2019 12:00am August 17, 2021 8:00am Comment on above: Take 50 mcg by mouth once daily. Take 1 tablet by zak th once daily. losartan potassium 25 mg oral tablet (20 sources) Angiotensin 2 Receptor Bree Start: 2022 End: 2024 take 1 tablet by mouth once daily Losartan 25 mg tablet Active 25 mg PO DAILY September 29, 2022 12:00am Comment on above: Take 25 mg by mouth once daily. Take 1 tablet by zak th once daily. methylPREDNISolone (1 source) Corticosteroid Start: 2022 End: 2022 methylPREDNISolone (MEDROL, ROXANA,) 4 mg Dose-Pack Follow dosing instructions, take with food. 21 tablet 0 11/07/2022 11/13/2022 Active Comment on above: Follow dosing instru ctions, take with food. metroNIDAZOLE 500 mg oral tablet (20 sources) Nitroimidazole Antimicrobial Start: 2023 End: 2023 take 1 tablet by mouth three times daily metroNIDAZOLE (FLAGYL) 500 mg tablet Indications: Colitis Take 1 tablet by mouth three times a day for 4 days. 12 tablet 02/20/2024 02/24/2024 Active Start: 02-12-2024 End: 09-30-2024 take 1 tablet by mouth every eight hours Metronidazole 500 mg tablet Discontinued 500 mg PO Q8H 30 February 12, 2024 12:00am September 30, 2024 9:11am molnupiravir 200 mg capsule (2 sources) Start: 02-21-2024 End: 02-26-2024 take 4 capsules by mouth twice daily molnupiravir 200 mg capsule Indications: COVID-19 Take 4 capsules by mouth two times a day for 5 days. 40 capsule 02/21/2024 02/26/2024 Active montelukast 10 mg oral tablet (20 sources) Leukotriene Receptor Antagonist Start: 10-25-2023 End: 05-27-2025 take 1 tablet by mouth once daily Montelukast 10 mg tablet Active 10 mg PO DAILY December 01, 2023 12:00am Multivitamin (One Daily Multivitamin) tablet (5 sources) Start: 01-16-2024 take 1 tablet by mouth once daily Multivitamin (One Daily Multivitamin) tablet Active 1 {tbl} PO DAILY January 16, 2024 12:00am naproxen 500 mg oral tablet (6 sources) Nonsteroidal Anti-inflammatory Drug Start: 01-19-2025 take 1 tablet by mouth twice daily as needed Naproxen 500 mg tablet Active 500 mg PO TWICE DAILY NEEDED January 19, 2025 12:00am Start: 12-08-2021 take 1 tablet by [facility] twice daily Naproxen (Naprosyn) 500 mg tablet Active 500 MG PO TWICE A DAY December 07, 2021 11:00pm ondansetron 4 mg disintegrating oral tablet (20 sources) Serotonin-3 Receptor Antagonist Start: 07-31-2024 take 1 tablet by mouth every eight hours as needed for nausea Ondansetron 4 mg tablet,disintegrating Active 4 mg PO EVERY 8 HOURS NEEDED as needed for Nausea July 31, 2024 1:00am Start: 10-21-2022 End: 06-19-2023 take 2 tablets by mouth every eight hours as needed for nausea Ondansetron 4 mg tablet,disintegrating Discontinued 8 mg PO EVERY 8 HOURS NEEDED as needed for Nausea 15 0 October 21, 2022 12:00am June 19, 2023 2:12pm Start: 10-21-2022 End: 06-19-2023 take 8 mg by mouth every eight hours as needed Ondansetron Discontinued 8 MG PO EVERY 8 HOURS NEEDED October 21, 2022 12:00am June 19, 2023 2:12pm oseltamivir 75 mg oral capsule (2 sources) Neuraminidase Inhibitor Start: 07-12-2024 End: 07-17-2024 take 1 capsule by mouth twice daily oseltamivir (TAMIFLU) 75 mg capsule Indications: Influenza A Take 1 capsule by mouth two times a day for 5 days. 10 capsule 07/12/2024 07/17/2024 Active Start: 09-29-2021 End: 10-04-2021 take 1 capsule by mouth twice daily oseltamivir (TAMIFLU) 75 mg capsule Take 1 capsule by mouth twice daily for 5 days. 10 capsule 0 09/29/2021 10/04/2021 Active Comment on above: Take [address] [facility] twice daily for 5 days. oxyCODONE hydrochloride 5 mg oral tablet (2 sources) Opioid Agonist Start: take 1 tablet by mouth every six hours as needed for pain Oxycodone 5 mg tablet Active 5 mg PO EVERY 6 HOURS as needed for pain 12 3 0 January 19, 2025 Lumbosacral strain Acute back pain Strain of muscle, fascia and tendon of lower back, initial encounter Dorsalgia, unspecified pantoprazole 40 mg delayed release oral tablet (20 sources) Proton Pump Inhibitor Start: End: take 1 tablet by mouth once daily Pantoprazole 40 mg tablet,delayed release (DR/EC) Active 40 mg PO DAILY September 30, 2024 12:00am traMADol hydrochloride 50 mg oral tablet (5 sources) Opioid Agonist Start: take 50 mg by mouth every eight hours Tramadol Active 50 MG PO Q8H June 30, 2022 1:00am TRELEGY ELLIPTA 200-62.5-25 mcg inhalation powder (20 sources) Start: take 1 puff(s) by inhalation once daily TRELEGY ELLIPTA 200-62.5-25 mcg inhalation powder Inhale 1 Puff as instructed once daily. 01/02/2024 Active 1 ml triamcinolone acetonide 40 mg/ml injection (1 source) Corticosteroid Start: End: triamcinolone acetonide 40 mg injection (KeNALog 40) Completed/Discontinued Medications Medication Drug Class(es) Dates Sig (Normalized) Sig (Original) acetaminophen 500 mg oral tablet (20 sources) Start: 06-16-2019 End: 11-07-2022 take 2 tablets by mouth every six hours as needed acetaminophen (TYLENOL) 500 mg tablet Take 1,000 mg by mouth every 6 hours as needed. 0 06/16/2019 11/07/2022 Discontinued Start: 06-16-2019 End: 06-08-2022 take 1 tablet by mouth every six hours as needed for pain Acetaminophen 500 MG tablet Discontinued 500 mg PO EVERY 6 HOURS as needed for Pain June 07, 2022 5:35pm June 08, 2022 2:21pm Comment on above: Take 1,000 mg by zak th every 6 hours as needed. acetaminophen 325 mg / oxyCODONE hydrochloride 5 mg oral tablet (20 sources) Opioid Agonist Start: 02-12-2024 End: 09-30-2024 Oxycodone-Acetaminophen 5-325 mg tablet Discontinued 1 {tbl} PO EVERY 6 HOURS NEEDED as needed for Pain 12 3 February 12, 2024 September 30, 2024 9:10am Colitis Noninfective gastroenteritis and colitis, unspecified Start: 11-16-2022 End: 08-14-2023 Oxycodone-Acetaminophen 5-32 5 mg tablet Discontinued 1 {tbl} PO EVERY 6 HOURS NEEDED as needed for pain 20 5 0 November 16, 2022 August 14, 2023 3:15pm Back pain Dorsalgia, unspecified Start: 11-16-2022 End: 08-14-2023 take 1 tablet by mouth every six hours as needed Oxycodone-Acetaminophen Discontinued 1 TABLET PO EVERY 6 HOURS NEEDED 20 5 November 16, 2022 August 14, 2023 3:15pm Start: 11-01-2021 take 1 tablet by zak th every six hours as needed Oxycodone-Acetaminophen Active 1 TABLET PO EVERY 6 HOURS NEEDED 12 3 November 01, 2021 Start: 09-22-2017 End: 09-26-2017 Oxycodone-Acetaminophen 1 TA BLET tablet Discontinued 1 {tbl} PO EVERY 6 HOURS NEEDED as needed for Pain 12 3 0 September 22, 2017 12:00am September 26, 2017 2:01pm Abdominal pain Unspecified abdominal pain Start: 09-22-2017 End: 09-26-2017 take 1 tablet by mouth every six hours as needed Oxycodone-Acetaminophen Discontinued 1 TABLET PO EVERY 6 HOURS NEEDED 12 3 September 22, 2017 12:00am September 26, 2017 2:01pm [id number] 200 actuat albuterol 0.09 mg/actuat metered dose inhaler (20 sources) beta2-Adrenergic Agonist Start: 12-14-2022 take 2 puff(s) by mouth every six hours as needed albuterol HFA (PROVENTIL HFA, VENTOLIN HFA) 90 mcg/actuation inhaler inhale 2 puffs by mouth every 6 hours as needed for shortness of breath 12/14/2022 Active Start: 07-01-2022 End: 10-28-2024 Albuterol Sulfate 90 mcg/act uation HFA aerosol inhaler Discontinued 2 NMA INHALATION EVERY 6 HOURS as needed for Shortness Of Breath 3 3 January 02, 2024 9:14am October 28, 2024 9:46am Start: 07-01-2022 End: 12-14-2022 take 1 puff(s) by inhalation every six hours Albuterol Sulfate Active 2 PUFF INHALATION EVERY 6 HOURS 3 December 14, 2022 2:07pm Start: 08-14-2018 take 1 puff(s) by in halation every six hours Albuterol Sulfate (Ventolin Hfa) 90 mcg/actuation HFA aerosol inhaler Active 2 PUFF INHALATION EVERY 6 HOURS August 14, 2018 11:07am End: 01-26-2023 ALBUTEROL INHALATION Inhale as instructed. 01/26/2023 Discontinued ALBUTEROL INHALA TION Inhale as instructed. 0 Active Comment on above: Inhale as instructed . inhale 2 puffs by mo uth every 6 hours as needed for shortness of breath ALPRAZolam (20 sources) Benzodiazepine Start: 9 End: 9 take 1 tablet by mouth once daily Xanax Discontinued 1 TABLET PO DAILY July 07, 2018 5:52pm August 14, 2018 11:07am Start: 07-07-2018 End: 08-14-2018 Xanax Discontinued 1 {tbl} P O DAILY July 07, 2018 1:00am August 14, 2018 11:07am Start: 07-07-2018 End: 08-14-2018 take 1 tablet by mouth once daily Xanax Discontinued 1 TABLET PO DAILY July 07, 2018 12:00am August 14, 2018 10:07am Start: 07-07-2018 End: 08-14-2018 take 1 tablet by mouth once daily Xanax Discontinued 1 TABLET PO DAILY July 07, 2018 1:00am August 14, 2018 11:07am amoxicillin 500 mg / clavulanate 125 mg oral tablet (11 sources) Penicillin-class Antibacterial Start: 09-13-2022 End: 09-29-2022 Amoxicillin-Pot Clavulanate 500-125 mg tablet Discontinued 1 {tbl} PO TWICE A DAY September 13, 2022 12:00am September 29, 2022 1:15pm 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 Chronic obstructive pulmonary disease, unspecified Start: 09-13-2022 End: 09-29-2022 take 1 tablet by mouth twice daily Amoxicillin-Pot Clavulanate Discontinued 1 TABLET PO TWICE A DAY September 13, 2022 12:00am September 29, 2022 1:15pm aspirin 81 mg delayed release oral tablet (20 sources) Platelet Aggregation Inhibitor, Nonsteroidal Anti-inflammatory Drug Start: 06-08-2022 End: 07-01-2022 take 1 tablet by mouth at breakfast Aspirin 81 mg Tablet,Delayed Release (Dr/Ec) Discontinued 81 mg PO WITH BREAKFAST June 08, 2022 1:00am July 01, 2022 4:29pm Start: 05-12-2017 End: 09-26-2017 take 1 tablet by mouth once daily Aspirin 81 MG tablet Discontinued 81 mg PO DAILY@0800 0 May 12, 2017 1:00am September 26, 2017 2:00pm 12 hr aspirin 25 mg / dipyridamole 200 mg extended release oral capsule (1 source) Platelet Aggregation Inhibitor, Nonsteroidal Anti-inflammatory Drug Start: 01-26-2023 End: 01-31-2023 take 1 capsule by mouth twice daily dipyridamole-aspirin ER (AGGRENOX) 25-200 mg per 12 hr capsule Take 1 capsule by mouth twice daily. 180 capsule 1 01/26/2023 01/31/2023 Discontinued Comment on above: Take 1 capsule by mouth twice daily. azithromycin 250 mg oral tablet (12 sources) Macrolide Antimicrobial Start: 09-03-2022 End: 09-29-2022 take 2 tablets by mouth once daily Azithromycin (Zithromax) 250 mg tablet Discontinued 250 mg PO DAILY 4 4 0 September 03, 2022 12:00am September 29, 2022 1:15pm start on day 2 of therapy Budesonide-Glyco pyr-Formoterol (20 sources) Corticosteroid, beta2-Adrenergic Agonist Start: 07-20-2023 End: 12-01-2023 Qjmrbdawlr-Nyftaceb-Cmh moterol (Breztri Aerosphere) 160-9-4.8 mcg/actuation HFA aerosol inhaler Discontinued 2 NMA INHALATION TWICE A DAY 3 3 July 20, 2023 4:04pm December 01, 2023 1:18pm 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 Chronic obstructive pulmonary disease, unspecified Start: 07-20-2023 End: 12-01-2023 Qxmdggilna-Idcfpmsx-Nufsgnnv ol (Breztri Aerosphere) 160-9-4.8 mcg/actuation HFA aerosol inhaler Discontinued 2 NMA INHALATION TWICE A DAY 3 July 20, 2023 4:04pm December 01, 2023 1:18pm Start: 07-20-2023 Budesonide-Gly copyr-Formoterol (Breztri Aerosphere) 160-9-4.8 mcg/actuation HFA aerosol inhaler Active 2 INH INHALATION TWICE A DAY 3 July 20, 2023 4:04pm Start: 04-24-2023 End: 07-20-2023 Luxuktmldx-Bzcoyztg-Urqbyhyv ol (Breztri Aerosphere) 160-9-4.8 mcg/actuation HFA aerosol inhaler Discontinued 2 NMA INHALATION TWICE A DAY 3 3 April 24, 2023 2:51pm July 20, 2023 4:04pm 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 Chronic obstructive pulmonary disease, unspecified Start: 04-24-2023 End: 07-20-2023 Totxyrnycf-Byxdtkcd-Ikuelrge ol (Breztri Aerosphere) 160-9-4.8 mcg/actuation HFA aerosol inhaler Discontinued 2 NMA INHALATION TWICE A DAY 3 April 24, 2023 2:51pm July 20, 2023 4:04pm Start: 04-24-2023 End: 07-20-2023 Gvnerpezej-Ktlbcipm-Dhumxlyy ol (Breztri Aerosphere) 160-9-4.8 mcg/actuation HFA aerosol inhaler Discontinued 2 INH INHALATION TWICE A DAY 3 April 24, 2023 2:51pm July 20, 2023 4:04pm Start: 12-14-2022 End: 04-24-2023 Zsgggirzhu-Efxkwtei-Hwfniykh ol (Breztri Aerosphere) 160-9-4.8 mcg/actuation HFA aerosol inhaler Discontinued 2 NMA INHALATION TWICE A DAY 3 3 December 14, 2022 2:07pm April 24, 2023 2:51pm 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 Chronic obstructive pulmonary disease, unspecified Start: 12-14-2022 End: 04-24-2023 Atszppkiem-Mklbbjqp-Yngqkdqj ol (Breztri Aerosphere) 160-9-4.8 mcg/actuation HFA aerosol inhaler Discontinued 2 NMA INHALATION TWICE A DAY 3 December 14, 2022 2:07pm April 24, 2023 2:51pm Start: 12-14-2022 End: 04-24-2023 Auturournp-Hfqwhzky-Opbcmzfi ol (Breztri Aerosphere) 160-9-4.8 mcg/actuation HFA aerosol inhaler Discontinued 2 INH INHALATION TWICE A DAY 3 December 14, 2022 2:07pm April 24, 2023 2:51pm Start: 12-14-2022 Budesonide-Gly copyr-Formoterol (Breztri Aerosphere) 160-9-4.8 mcg/actuation HFA aerosol inhaler Active 2 INH INHALATION TWICE A DAY 3 December 14, 2022 2:07pm Start: 10-11-2022 End: 05-20-2024 take 2 puff(s) by inhalation twice daily BREZTRI AEROSPHERE 160-9-4.8 mcg/actuati on HFA aerosol inhaler Inhale 2 Puffs as instructed twice daily. 10/11/2022 05/20/2024 Discontinued (Course of therapy completed) Start: 09-13-2022 End: 12-14-2022 Uknvqgohps-Zrjsozos-Qszwusuy ol (Breztri Aerosphere) 160-9-4.8 mcg/actuation HFA aerosol inhaler Discontinued 2 NMA INHALATION TWICE A DAY 10.7 3 September 13, 2022 12:00am December 14, 2022 2:08pm 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 Chronic obstructive pulmonary disease, unspecified Start: 09-13-2022 End: 12-14-2022 Yriiijxbnx-Jljvjmns-Toeeawum ol (Breztri Aerosphere) 160-9-4.8 mcg/actuation HFA aerosol inhaler Discontinued 2 NMA INHALATION TWICE A DAY 10.7 September 13, 2022 12:00am December 14, 2022 2:08pm Start: 09-13-2022 End: 12-14-2022 Wbqaowlbaq-Wlzigvzo-Tfhdyvks ol (Breztri Aerosphere) 160-9-4.8 mcg/actuation HFA aerosol inhaler Discontinued 2 INH INHALATION TWICE A DAY 10.7 September 13, 2022 12:00am December 14, 2022 2:08pm Start: 09-13-2022 Budesonide-Gly copyr-Formoterol (Breztri Aerosphere) 160-9-4.8 mcg/actuation HFA aerosol inhaler Active 2 INH INHALATION TWICE A DAY 10.7 September 13, 2022 12:00am Comment on above: Inhale 2 Puffs as in structed twice daily. 24 hr buPROPion hydrochloride 150 mg extended release oral tablet (20 sources) Aminoketone Start: 08-14-19 End: 08-18-19 take 1 tablet by mouth once daily in the morning Bupropion Hcl 150 mg tablet extended release 24 hr Discontinued 150 mg PO EVERY MORNING October 28, 2020 12:00am August 17, 2021 8:00am Comment on above: Take 150 mg by mouth every morning. cephalexin 500 mg oral capsule (20 sources) Cephalosporin Antibacterial Start: 12-11-19 End: 03-16-20 take 1 capsule by mouth every six hours Cephalexin 500 mg capsule Discontinued 500 mg PO EVERY 6 HOURS 40 0 December 10, 2021 12:00am March 16, 2022 1:01pm ciprofloxacin 500 mg oral tablet (20 sources) Quinolone Antimicrobial Start: 03-13-20 End: 10-01-19 take 1 tablet by mouth twice daily Ciprofloxacin Hcl 500 mg tablet Discontinued 500 mg PO TWICE A DAY February 12, 2024 12:00am September 30, 2024 9:11am citalopram 10 mg oral tablet (20 sources) Serotonin Reuptake Inhibitor Start: 08-11-19 End: 05-27-20 take 1 tablet by mouth once daily Citalopram 10 mg tablet Discontinued 10 mg PO DAILY August 17, 2021 12:00am June 19, 2023 2:12pm DEPRESSION Start: 08-14-2018 End: 05-12-2020 take 1 tablet by mouth once daily Citalopram 10 mg tablet Discontinued 10 mg PO DAILY August 14, 2018 12:00am May 12, 2020 1:34pm Comment on above: Take 10 mg by mouth once daily. Take 1 tablet by zak th once daily. clopidogrel 75 mg oral tablet (20 sources) P2Y12 Platelet Inhibitor Start: 2012 End: 2024 take 1 tablet by mouth once daily Clopidogrel 75 MG tablet Discontinued 75 mg PO DAILY July 07, 2018 1:00am June 08, 2022 2:23pm BLOOD THINNER Comment on above: Take 1 tablet by zak th once daily. cyclobenzaprine hydrochloride 10 mg oral tablet (11 sources) Muscle Relaxant Start: 2022 End: 2023 take 1 tablet by mouth three times daily as needed for muscle spasms Cyclobenzaprine 10 mg tablet Discontinued 10 mg PO THREE TIMES A DAY as needed for Muscle Spasm December 01, 2022 12:00am August 14, 2023 3:15pm Comment on above: TAKE ONE TABLET THRE E TIMES A DAY NEEDED FOR MUSCLE SPASM diazePAM 5 mg oral tablet (20 sources) Benzodiazepine Start: 2020 End: 2020 take 1 tablet by mouth every eight hours as needed Diazepam 5 MG tablet Discontinued 5 mg PO EVERY 8 HOURS as needed for Vertigo November 03, 2020 5:26pm April 16, 2021 2:27pm diclofenac sodium 0.01 mg/mg topical gel (20 sources) Nonsteroidal Anti-inflammatory Drug Start: 2022 End: 2023 apply 4 g topically four times daily diclofenac (VOLTAREN ARTHRITIS PAIN) 1 % topical gel Indications: Coccyodynia , Lumbar spondylosis Apply 4 g to affected area four times daily. 450 g 5 02/23/2023 08/22/2023 Comment on above: Apply 4 g to affecte d area four times daily. dicyclomine hydrochloride 10 mg oral capsule (20 sources) Anticholinergic Start: 2022 End: 2023 take 2 capsules by mouth every six hours as needed Dicyclomine 10 mg capsule Discontinued 20 mg PO EVERY 6 HOURS NEEDED as needed for abdominal discomfort October 21, 2022 7:47pm August 14, 2023 3:15pm Start: 10-21-2022 End: 08-14-2023 take 20 mg by mouth every six hours as needed Dicyclomine Discontinued 20 MG PO EVERY 6 HOURS NEEDED October 21, 2022 7:47pm August 14, 2023 3:15pm Start: 09-07-2017 End: 09-26-2017 take 2 capsules by mouth three times daily before mealtime Dicyclomine 10 MG capsule Discontinued 20 mg PO THREE TIMES DAILY BEFORE MEALS 20 0 September 07, 2017 12:00am September 26, 2017 2:01pm Start: 09-07-2017 End: 09-26-2017 take 20 mg by mouth three times daily before mealtime Dicyclomine Discontinued 20 MG PO THREE TIMES DAILY BEFORE MEALS 20 September 07, 2017 12:00am September 26, 2017 2:01pm Comment on above: TAKE 2 CAPSULES EVER Y 6 HOURS NEEDED FOR ABDOMINAL DISCOMFORT doxycycline monohydrate 100 mg oral capsule (20 sources) Tetracycline-class Drug Start: 9 End: 9 take 1 capsule by mouth twice daily Doxycycline Monohydrate 100 MG capsule Discontinued 100 mg PO TWICE A DAY 14 0 July 07, 2018 1:00am August 14, 2018 11:06am enteric contrast (will be provided with radiology test) (5 sources) Start: 4 End: 4 enteric contrast (will be provided with radiology test) For CT ABD/PEL W IVCON Routine order Administer, As Directed One Time Only, via Oral, Rectal, both Oral and Rectal, Enteric Tube, Stoma or Indwelling Catheter, Enteric Contrast as designated per enteric contrast guidelines 1 Each 04/18/2024 04/19/2024 Start: 04-18-2024 End: 04-19-2024 enteric contrast (will be pr ovided with radiology test) For CT ABD/PEL W IVCON Routine order Administer, As Directed One Time Only, via Oral, Rectal, both Oral and Rectal, Enteric Tube, Stoma or Indwelling Catheter, Enteric Contrast as designated per enteric contrast guidelines 1 Each 04/18/2024 04/19/2024 Active famotidine 40 mg oral tablet (20 sources) Histamine-2 Receptor Antagonist Start: 03-10-2013 End: 09-26-2017 take 1 tablet by mouth once daily Famotidine 40 MG tablet Discontinued 40 mg PO DAILY March 10, 2013 12:00am September 26, 2017 2:01pm ACID REFLUX/GERD fluticasone propionate 0.05 mg/actuat metered dose nasal spray (5 sources) Corticosteroid Start: 09-28-2021 take 2 spray(s) by mouth once daily fluticasone (FLONASE) 50 mcg/actuation nasal spray Use 2 Sprays in each nostril once daily. Rinse mouth after use. 1 Each 0 09/28/2021 Active Comment on above: Use 2 Sprays in each nostril once daily. Rinse mouth after use. gabapentin 100 mg oral capsule (5 sources) Anti-epileptic Agent Start: 11-14-2022 End: 01-26-2023 take 1 capsule by mouth every eight hours as needed gabapentin (NEURONTIN) 100 mg capsule Take 1 capsule by mouth every 8 hours as needed for up to 30 days. 90 capsule 11/14/2022 01/26/2023 Discontinued Comment on above: Take [address] [facility] every 8 hours as needed for up to 30 days. levocetirizine dihydrochloride 5 mg oral tablet (20 sources) Histamine-1 Receptor Antagonist Start: 10-31-2019 End: 10-16-2024 take 1 tablet by mouth once daily Levocetirizine (Allergy Relief (Levocetirizin)) 5 mg tablet Discontinued 5 mg PO DAILY 90 3 January 01, 2024 9:16am October 16, 2024 9:21am ALLERGIES Comment on above: Take 5 mg by mouth o nce daily. lisinopril 10 mg oral tablet (20 sources) Angiotensin Converting Enzyme Inhibitor Start: 03-21-2020 End: 01-26-2023 take 1 tablet by mouth once daily Lisinopril 10 MG tablet Discontinued 10 mg PO DAILY March 21, 2020 12:00am September 29, 2022 2:22pm BLOOD PRESSURE Comment on above: Take 10 mg by mouth once daily. meclizine hydrochloride 25 mg chewable tablet (20 sources) Antiemetic Start: 08-14-2023 End: 09-30-2024 take 1 tablet by mouth three times daily as needed for dizziness Meclizine 25 mg tablet,chewable Discontinued 25 mg PO THREE TIMES A DAY as needed for dizziness 30 0 August 14, 2023 6:56pm September 30, 2024 9:19am Comment on above: Take 25 mg by mouth three times a day as needed. Take 1 tablet by zak th three times a day as needed for dizziness. Tiotropium-Olodatero l (20 sources) Anticholinergic, beta2-Adrenergic Agonist Start: 06-07-2022 End: 09-13-2022 Tiotropium-Olodate rol (Stiolto Respimat) 2.5-2.5 mcg/actuation mist Discontinued 2 NMA INHALATION DAILY June 07, 2022 5:35pm September 13, 2022 12:36pm COPD Start: 06-07-2022 End: 09-13-2022 Tiotropium-Olodaterol (Stiol to Respimat) 2.5-2.5 mcg/actuation mist Discontinued 2 NMA INHALATION DAILY June 07, 2022 5:35pm September 13, 2022 12:36pm Start: 06-07-2022 End: 09-13-2022 Tiotropium-Olodaterol (Stiol to Respimat) 2.5-2.5 mcg/actuation mist Discontinued 2 INH INHALATION DAILY June 07, 2022 5:35pm September 13, 2022 12:36pm Start: 06-07-2022 Tiotropium-Olo daterol (Stiolto Respimat) 2.5-2.5 mcg/actuation mist Active 2 INH INHALATION DAILY June 07, 2022 5:35pm Start: 06-07-2022 Tiotropium-Olo daterol (Stiolto Respimat) 2.5-2.5 mcg/actuation mist Active 2 INH INHALATION DAILY June 07, 2022 4:35pm Start: 03-15-2022 End: 01-26-2023 STIOLTO RESPIMAT 2.5-2.5 mcg /actuation INHALE 2 PUFFS BY MOUTH DAILY 03/15/2022 01/26/2023 Discontinued Start: 02-15-2022 End: 06-07-2022 Tiotropium-Olodaterol (Stiol to Respimat) 2.5-2.5 mcg/actuation mist Discontinued 2 NMA INHALATION DAILY 4 February 15, 2022 12:00am June 07, 2022 5:35pm Start: 02-15-2022 End: 06-07-2022 Tiotropium-Olodaterol (Stiol to Respimat) 2.5-2.5 mcg/actuation mist Discontinued 2 NMA INHALATION DAILY February 15, 2022 12:00am June 07, 2022 5:35pm Start: 02-15-2022 End: 06-07-2022 Tiotropium-Olodaterol (Stiol to Respimat) 2.5-2.5 mcg/actuation mist Discontinued 2 INH INHALATION DAILY February 15, 2022 12:00am June 07, 2022 5:35pm Start: 02-15-2022 End: 06-07-2022 Tiotropium-Olodaterol (Stiol to Respimat) 2.5-2.5 mcg/actuation mist Discontinued 2 INH INHALATION DAILY February 14, 2022 11:00pm June 07, 2022 4:35pm Start: 02-15-2022 Tiotropium-Olo daterol (Stiolto Respimat) 2.5-2.5 mcg/actuation mist Active 2 INH INHALATION DAILY February 14, 2022 11:00pm Comment on above: INHALE 2 PUFFS BY MO UTH DAILY omeprazole 20 mg delayed release oral capsule (20 sources) Proton Pump Inhibitor Start: 03-03-20 13 End: 03-10-20 13 take 1 capsule by mouth once daily Omeprazole 20 MG capsule Discontinued 20 mg PO DAILY March 03, 2013 12:00am March 10, 2013 2:19pm polyethylene glycol 3350 [id number] mg / potassium chloride 2970 mg / sodium bicarbonate 6740 mg / sodium chloride 5860 mg / sodium sulfate 66033 mg powder for oral solution (1 source) Osmotic Laxative Start: 08-18-19 End: 08-18-19 peg 3350-Electrolytes (GOLYTELY) 236-22.74-6.74 -5.86 gram suspension Indications: Screening for colon cancer , History of colonic polyps , Epigastric pain , Blood in stool Take 4,000 mL by mouth one time only for 1 dose. Refer to printed prep instructions from your provider. 4000 mL 0 08/18/2023 08/18/2023 Comment on above: Take 4,000 mL by zak th one time only for 1 dose. Refer to printed prep instructions from your provider. predniSONE 20 mg oral tablet (20 sources) Start: 09-04-19 End: 09-30-19 take 2 tablets by mouth once daily Prednisone 20 mg tablet Discontinued 40 mg PO DAILY 8 September 03, 2022 12:00am September 29, 2022 1:15pm Start: 09-03-2022 End: 09-29-2022 take 40 mg by mouth once daily Prednisone Discontinued 40 MG PO DAILY September 03, 2022 12:00am September 29, 2022 1:15pm Start: 07-07-2018 End: 08-14-2018 take 4 tablets by mouth once daily, then take 3 tablets by mouth once daily, then take 2 tablets by mouth once daily, then take 1 tablet by mouth once daily, then take 1 tablet by mouth every other day Prednisone 10 MG tablet Discontinued 10 mg PO DIRECTED 33 0 July 07, 2018 1:00am August 14, 2018 11:07am Take 4 tablets daily for 3 days, then 3 daily for 3 days, then 2 daily for 3 days, then 1 a day for 3 days then 1 QOD for 3 doses. sulfamethoxazole 800 mg / trimethoprim 160 mg oral tablet (20 sources) Dihydrofolate Reductase Inhibitor Antibacterial, Sulfonamide Antimicrobial Start: 09-22-2017 End: 09-26-2017 Sulfamethoxazole-Trimethopri m 1 TABLET tablet Discontinued 1 {tbl} PO TWICE A DAY 6 0 September 22, 2017 12:00am September 26, 2017 2:01pm Start: 09-22-2017 End: 09-26-2017 take 1 tablet by mouth twice daily Sulfamethoxazole-Trimethoprim Discontinu ed 1 TABLET PO TWICE A DAY 6 September 22, 2017 12:00am September 26, 2017 2:01pm 7 actuat umeclidinium 0.0625 mg/actuat / vilanterol 0.025 mg/actuat dry powder inhaler (20 sources) Anticholinergic, beta2-Adrenergic Agonist Start: 02-19-2019 End: 04-24-2019 Umeclidinium-Vilanterol (Anoro Ellipta) 62.5-25 mcg/actuation blister with device Discontinued 1 NMA INHALATION Q24H 60 February 19, 2019 3:21pm April 24, 2019 2:50pm Bronchiectasis, uncomplicated Start: 02-19-2019 End: 04-24-2019 Umeclidinium-Vilanterol (Ano ro Ellipta) 62.5-25 mcg/actuation blister with device Discontinued 1 INH INHALATION Q24H 60 February 19, 2019 3:21pm April 24, 2019 2:50pm Start: 10-04-2018 End: 02-19-2019 Umeclidinium-Vilanterol (Ano ro Ellipta) 62.5-25 mcg/actuation blister with device Discontinued 1 INH INHALATION Q24H 60 October 04, 2018 8:56am February 19, 2019 3:22pm Start: 10-04-2018 End: 02-19-2019 Umeclidinium-Vilanterol (Ano ro Ellipta) 62.5-25 mcg/actuation blister with device Discontinued 1 NMA INHALATION Q24H 60 October 04, 2018 12:00am February 19, 2019 3:22pm Bronchiectasis, uncomplicated Start: 10-04-2018 End: 02-19-2019 Umeclidinium-Vilanterol (Ano ro Ellipta) 62.5-25 mcg/actuation blister with device Discontinued 1 NMA INHALATION Q24H 60 October 04, 2018 12:00am February 19, 2019 3:22pm Start: 10-04-2018 End: 02-19-2019 Umeclidinium-Vilanterol (Ano ro Ellipta) 62.5-25 mcg/actuation blister with device Discontinued 1 INH INHALATION Q24H 60 October 03, 2018 11:00pm February 19, 2019 2:22pm Start: 10-04-2018 End: 02-19-2019 Umeclidinium-Vilanterol (Ano ro Ellipta) 62.5-25 mcg/actuation blister with device Discontinued 1 INH INHALATION Q24H 60 October 04, 2018 12:00am February 19, 2019 3:22pm Problems Active Problems Problem Classification Problem Date Documented Da te Episodic/Chronic Acute and unspecified renal failure (2 sources) Acute injury of kidney; 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: [Acute kidney failure, unspecified] 02-01-2023 Episodic Acute cerebrovascular disease (20 sources) Cerebrovascular accident; 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: [Cerebral infarction, unspecified] Onset: 3 01-26-2023 Chronic Anxiety disorders (20 sources) Anxiety disorder; 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: [Anxiety disorder, unspecified] Onset: 3 04-02-2018 Chronic Blindness and vision defects (20 sources) Subjective visual disturbance; 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: [Unspecified subjective visual disturbances] 06-16-2019 Episodic Chronic kidney disease (20 sources) Chronic kidney disease stage 3A ; 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: [Stage 3a chronic kidney disease (HCC)] Onset: 4 07-31-2023 Chronic Chronic kidney disease (1 source) Chronic kidney disease; 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: [Stage 3a chronic kidney disease (HCC)] Onset: 4 Chronic obstructive pulmonary disease and bronchiectasis (20 sources) Chronic obstructive lung disease; 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: [Chronic obstructive pulmonary disease, unspecified] Onset: 3 Chronic Chronic obstructive pulmonary disease and bronchiectasis (20 sources) Bronchitis; 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: [Bronchitis, not specified as acute or chronic] 06-30-2022 Episodic Coagulation and hemorrhagic disorders (1 source) Easy bruising; 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: [Spontaneous ecchymoses] 01-31-2025 Episodic Conditions associated with dizziness or vertigo (20 sources) Benign paroxysmal positional vertigo; 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: [Benign paroxysmal vertigo, unspecified ear] Onset: 1 05-07-2021 Episodic Conduction disorders (20 sources) Sinus node dysfunction; 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: [Other specified heart block] 06-30-2022 Chronic Comment on above: Per Event Monitor Coronary atherosclerosis and other heart disease (20 sources) Coronary arteriosclerosis; 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: [Atherosclerotic heart disease of [place] coronary artery without angina pectoris] 06-30-2022 Chronic Comment on above: 1996 Diabetes mellitus without complication (2 sources) Impaired fasting glycemia; 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: [Impaired fasting glucose] 02-01-2023 Episodic Disorders of lipid metabolism (20 sources) Hyperlipidemia; 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: [Hyperlipidemia, unspecified] Onset: 3 02-16-2019 Chronic E Codes: Fall (20 sources) Fall; 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: [Unspecified fall, initial encounter] Onset: 5 07-19-2022 Episodic E Codes: Natural/environment (20 sources) Insect bite - wound; 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: [Bitten or stung by nonvenomous insect and other nonvenomous arthropods, initial encounter] 01-19-2020 Episodic Esophageal disorders (20 sources) Gastroesophageal reflux disease; 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: [Gastro-esophageal reflux disease without esophagitis] Onset: 9 02-16-2019 Chronic Essential hypertension (20 sources) Hypertensive disorder; 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: [Essential (primary) hypertension] Onset: Chronic Fracture of upper limb (20 sources) Fracture of distal phalanx of finger ; 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: [Displaced fracture of distal phalanx of unspecified finger, initial encounter for closed fracture] 04-18-2021 Episodic Headache; including migraine (20 sources) Migraine; 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: [Migraine, unspecified, not intractable, without status migrainosus] Onset: 4 07-31-2013 Chronic Influenza (1 source) Influenza due to Influenza A virus; 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: [Influenza due to other identified influenza virus with other respiratory manifestations] 07-12-2024 Episodic Malaise and fatigue (20 sources) Fatigue; 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: [Other fatigue] 07-18-2021 Episodic Mood disorders (20 sources) Depressive disorder; 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: [Depression] Onset: 3 08-29-2012 Chronic Noninfectious gastroenteritis (6 sources) Colitis; 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: [Noninfective gastroenteritis and colitis, unspecified] 02-20-2024 Episodic Nonspecific chest pain (20 sources) Chest wall pain; 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: [Other chest pain] Onset: 9 Resolved: 9 03-22-2020 Episodic Comment on above: [place] Nutritional deficiencies (20 sources) Vitamin D deficiency; 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: [Vitamin D deficiency, unspecified] Onset: 3 09-14-2012 Chronic Open wounds of extremities (20 sources) Avulsion of toenail; 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: [Unspecified open wound of unspecified toe(s) with damage to nail, initial encounter] Episodic Osteoporosis (1 source) Age-related osteoporosis without current pathological fracture; 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: [Age-related osteoporosis without current pathological fracture] Onset: 5 Chronic Other aftercare (18 sources) Wound ; 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: [Encounter for other specified surgical aftercare] 04-15-2022 Episodic Other aftercare (1 source) Long-term current use of anticoagulant; 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: [wig comber (current) use of anticoagulants] 01-31-2025 Episodic Other and unspecified benign neoplasm (2 sources) History of polyp of colon; 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: [Personal history of colonic polyps] 08-18-2023 Episodic Other circulatory disease (20 sources) History of cerebrovascular accident; 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: [Personal history of transient ischemic attack (TIA), and cerebral infarction without residual deficits] Onset: 9 02-16-2019 Episodic Comment on above: 11/2011 Other circulatory disease (20 sources) History of cerebrovascular disease; 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: [Personal history of other diseases of the circulatory system] 06-30-2022 Episodic Other connective tissue disease (20 sources) Spasm; 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: [Other muscle spasm] 03-22-2020 Episodic Other connective tissue disease (20 sources) Thigh pain; 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: [Pain in unspecified thigh] 06-30-2022 Episodic Other connective tissue disease (4 sources) Pain in left lower limb; 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: [Pain in left leg] Episodic Other connective tissue disease (14 sources) Internal impingement of right shoulder; 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: [Impingement syndrome of right shoulder] 07-25-2022 Episodic Other connective tissue disease (5 sources) Impingement syndrome of right shoulder; 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: [Other affections of shoulder region, not elsewhere classified] 07-25-2022 Episodic Other connective tissue disease (2 sources) Pain of left thigh; 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: [Pain in left thigh] 12-30-2022 Episodic Other connective tissue disease (2 sources) Pain of right calf; 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: [Pain in right lower leg] 01-22-2024 Episodic Other connective tissue disease (1 source) Pain in right lower leg; 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: [Right calf pain] Onset: 4 Episodic Other connective tissue disease (1 source) Other specified disorders of muscle; 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: [Muscle stiffness] Onset: 4 Episodic Other connective tissue disease (1 source) Pain in right finger(s); 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: [Finger pain, right] Onset: 5 Episodic Other connective tissue disease (1 source) Pain in right arm; 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: [Arm pain, right] Onset: 5 Episodic Other gastrointestinal disorders (20 sources) Diarrhea; 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: [Diarrhea, unspecified] 07-04-2020 Episodic Other gastrointestinal disorders (20 sources) Constipation; 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: [Constipation, unspecified] 06-30-2022 Episodic Other gastrointestinal disorders (4 sources) Abdominal mass; 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: [Right lower quadrant abdominal swelling, mass and lump] 04-19-2024 Episodic Other gastrointestinal disorders (1 source) Dark stools; 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: [Other fecal abnormalities] 08-06-2024 Episodic Other gastrointestinal disorders (5 sources) Acute constipation; 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: [Constipation, unspecified] 12-07-2023 Episodic Other gastrointestinal disorders (5 sources) Obstipation; 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: [Constipation, unspecified] 10-08-2024 Episodic Other injuries and conditions due to external causes (1 source) Closed injury of head; 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: [Unspecified injury of head, initial encounter] 01-31-2025 Episodic Other injuries and conditions due to external causes (1 source) Injury of right upper arm; 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: [Unspecified injury of right shoulder and upper arm, initial encounter] 01-31-2025 Episodic Other injuries and conditions due to external causes (1 source) Encounter for examination and observation following other accident; 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: [Encounter for examination and observation following other accident] Onset: 5 Episodic Other injuries and conditions due to external causes (1 source) Unspecified injury of head, initial encounter; 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: [Injury of head, initial encounter] Onset: 5 Episodic Other liver diseases (3 sources) Liver cyst; 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: [Other specified diseases of liver] 08-06-2024 Chronic Other liver diseases (1 source) Other specified diseases of liver; 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: [Hepatic cyst] Onset: 5 Chronic Other lower respiratory disease (20 sources) Dyspnea; 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: [Dyspnea, unspecified] 08-14-2018 Episodic Other lower respiratory disease (20 sources) Paralysis of diaphragm ; 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: [Disorders of diaphragm] 04-02-2018 Episodic Other lower respiratory disease (10 sources) Nodule of lung; 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: [Solitary pulmonary nodule] 12-05-2024 Episodic Comment on above: 8 mm right upper lob e Other lower respiratory disease (20 sources) Hypoxia; 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: [Hypoxemia] 04-02-2018 Episodic Other lower respiratory disease (5 sources) Solitary pulmonary nodule; 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: [Solitary pulmonary nodule] Onset: 5 Episodic Other lower respiratory disease (7 sources) Disorders of diaphragm; 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: [Disorders of diaphragm] Episodic Other lower respiratory disease (5 sources) History of chronic obstructive airway disease; 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: [Personal history of other diseases of the respiratory system] 01-24-2024 Episodic Other nervous system disorders (9 sources) Piriformis syndrome; 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: [Lesion of sciatic nerve, right lower limb] 12-01-2022 Chronic Other nervous system disorders (1 source) Other chronic pain; 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: [Chronic pain of right knee] Onset: 4 Chronic Other nervous system disorders (20 sources) Paresthesia; 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: [Paresthesia of skin] 03-22-2020 Episodic Other nervous system disorders (18 sources) Postoperative pain ; 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: [Other acute postprocedural pain] 04-15-2022 Episodic Other nervous system disorders (1 source) Unspecified abnormalities of gait and mobility; 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: [Abnormality of gait] Onset: 4 Episodic Other non-traumatic joint disorders (1 source) Ankle pain Onset: 4 Episodic Other non-traumatic joint disorders (1 source) Effusion, right hand; 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: [Finger joint swelling, right] Onset: 5 Episodic Other screening for suspected conditions (not mental disorders or infectious disease) (20 sources) Patient encounter status; 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: [Encounter for screening for malignant neoplasm of colon] Onset: 2 Resolved: 2 07-31-2013 Episodic Comment on above: 5.14 sec pause on ev ent monitor 06/27/22 Other upper respiratory disease (20 sources) Seasonal allergic rhinitis; 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: [Other seasonal allergic rhinitis] 06-30-2022 Chronic Other upper respiratory disease (20 sources) Seasonal allergy; 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: [Other seasonal allergic rhinitis] Onset: 3 01-26-2023 Chronic Other upper respiratory disease (1 source) Nasal congestion; 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: [Nasal congestion] 02-20-2024 Episodic Other upper respiratory disease (1 source) Nasal discharge; 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: [Other specified disorders of nose and nasal sinuses] 02-20-2024 Episodic Other upper respiratory infections (20 sources) Upper respiratory infection; 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: [Acute upper respiratory infection, unspecified] 07-18-2021 Episodic Otitis media and related conditions (20 sources) Acute non-suppurative otitis media - serous; 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: [Acute serous otitis media, unspecified ear] 06-30-2022 Episodic Residual codes; unclassified (20 sources) Tobacco user; 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: [Tobacco use] 10-04-2018 Episodic Comment on above: 1 pack/day x 40 year s, Quit July [address] Annual low-dose CT screening due December 2022 ordered Residual codes; unclassified (2 sources) Tobacco use; 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: [Tobacco use disorder] Episodic Residual codes; unclassified (2 sources) Postoperative state; 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: [Other specified postprocedural states] Episodic Residual codes; unclassified (1 source) Painful scar; 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: [Pain, unspecified] Episodic Residual codes; unclassified (1 source) Postmenopausal state; 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: [Asymptomatic menopausal state] 02-07-2023 Episodic Respiratory failure; insufficiency; arrest (adult) (8 sources) Chronic hypoxemic respiratory failure; 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: [Chronic respiratory failure with hypoxia] 03-08-2024 Chronic Skin and subcutaneous tissue infections (20 sources) Infection of big toe; 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: [Local infection of the skin and subcutaneous tissue, unspecified] Episodic Spondylosis; intervertebral disc disorders; other back problems (20 sources) Lumbar spondylosis; 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: [Spondylosis without myelopathy or radiculopathy, lumbar region] Onset: 3 03-01-2023 Chronic Spondylosis; intervertebral disc disorders; other back problems (20 sources) Cervical nerve root pain; 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: [Radiculopathy, cervical region] Onset: 3 06-30-2022 Episodic Sprains and strains (20 sources) Low back strain; 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: [Strain of muscle, fascia and tendon of lower back, initial encounter] 08-04-2018 Episodic Substance-related disorders (20 sources) Cigarette smoker ; 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: [Nicotine dependence, cigarettes, uncomplicated] 01-18-2020 Chronic Thyroid disorders (20 sources) Hypothyroidism; 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: [Hypothyroidism, unspecified] Onset: 06-30-2022 Chronic Transient cerebral ischemia (20 sources) Transient cerebral ischemia; 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: [Transient cerebral ischemic attack, unspecified] Onset: 2 04-09-2012 Chronic Unclassified (20 sources) Lung 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 on CT; 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: [Full-term infant] Viral infection (1 source) Disease caused by 2019-nCoV; 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: [COVID-19] 02-21-2024 Episodic Past or Other Problems Problem Classification Problem Date Documented Da te Episodic/Chronic Abdominal hernia (20 sources) Hiatal hernia; 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: [Diaphragmatic hernia without obstruction or gangrene] Onset: 04-26-2012 04-26-2012 Episodic Abdominal pain (20 sources) Abdominal pain; 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: [Unspecified abdominal pain] Onset: 10-11-2011 Resolved: 06-10-2013 06-30-2022 Episodic Allergic reactions (20 sources) H/O: non-drug allergy; 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: [Allergy status to unspecified drugs, medicaments and biological substances status] Onset: 04-09-2012 04-09-2012 Episodic Cataract (20 sources) Cataract 06-30-2022 E Codes: Fall (2 sources) Accidental fall 10-23-2024 Gastrointestinal hemorrhage (20 sources) Rectal hemorrhage; 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: [Hemorrhage of anus and rectum] Onset: 01-11-2013 01-11-2013 Episodic Genitourinary symptoms and ill-defined conditions (20 sources) Dysuria; 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: [Dysuria] Onset: 10-11-2011 10-11-2011 Episodic Nausea and vomiting (13 sources) Nausea; 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: [Nausea] Onset: 04-18-2024 04-18-2024 Episodic Other and unspecified benign neoplasm (1 source) Personal history of colonic polyps; 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: [History of colonic polyps] Onset: 09-04-2023 Episodic Other bone disease and musculoskeletal deformities (20 sources) Osteopenia; 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: [Other specified disorders of bone density and structure, unspecified site] Onset: 09-12-2012 05-24-2021 Episodic Other circulatory disease (1 source) Personal history of transient ischemic attack (TIA), and cerebral infarction without residual deficits; 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: [History of CVA (cerebrovascular accident)] Onset: 02-16-2019 Episodic Other connective tissue disease (20 sources) Adhesive capsulitis of left shoulder; 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: [Adhesive capsulitis of left shoulder] Onset: 07-10-2012 07-10-2012 Episodic Other connective tissue disease (20 sources) Adhesive capsulitis of shoulder; 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: [Adhesive capsulitis of unspecified shoulder] Onset: 09-18-2012 09-18-2012 Episodic Other connective tissue disease (20 sources) Recurrent falls ; 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: [Repeated falls] Onset: 05-16-2024 04-29-2024 Episodic Other connective tissue disease (20 sources) Increased muscle tone; 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: [Other specified disorders of muscle] Onset: 05-16-2024 05-16-2024 Episodic Other connective tissue disease (20 sources) Other symptoms and signs involving the musculoskeletal system; 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: [Other musculoskeletal symptoms referable to limbs] Onset: 05-16-2024 05-16-2024 Episodic Other connective tissue disease (2 sources) Repeated falls; 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: [Falls frequently] Onset: 04-29-2024 Episodic Other gastrointestinal disorders (20 sources) Occult blood in stools; 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: [Other fecal abnormalities] Onset: 10-25-2023 10-25-2023 Episodic Other gastrointestinal disorders (1 source) Other fecal abnormalities; 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: [Dark stools] Onset: 08-06-2024 Episodic Other gastrointestinal disorders (1 source) Right lower quadrant abdominal swelling, mass and lump; 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: [Right lower quadrant abdominal mass] Onset: 04-19-2024 Episodic Other lower respiratory disease (20 sources) Multiple nodules of lung; 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: [Other nonspecific abnormal finding of lung field] Onset: 03-30-2023 02-07-2023 Episodic Other lower respiratory disease (1 source) Other nonspecific abnormal finding of lung field; 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: [Lung nodules] Onset: 03-30-2023 Episodic Other nervous system disorders (20 sources) Abnormal gait; 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: [Unspecified abnormalities of gait and mobility] Onset: 05-16-2024 05-16-2024 Episodic Other non-traumatic joint disorders (20 sources) Shoulder joint pain; 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: [Pain in unspecified shoulder] Onset: 10-04-2013 10-04-2013 Episodic Other non-traumatic joint disorders (20 sources) Instability of joint of right knee; 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: [Other instability, right knee] Onset: 05-16-2024 04-29-2024 Episodic Other non-traumatic joint disorders (20 sources) Pain in right knee; 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: [Pain in joint, lower leg] Onset: 05-16-2024 05-16-2024 Episodic Other non-traumatic joint disorders (2 sources) Other instability, right knee; 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: [Knee gives out, right] Onset: 04-29-2024 Episodic Screening and history of mental health and substance abuse codes (20 sources) Tobacco smoking behavior - finding; 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: [Personal history of nicotine dependence] Onset: 01-26-2023 Episodic Superficial injury; contusion (20 sources) Contusion of left great toe; 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: [Contusion of left great toe without damage to nail, initial encounter] Onset: 10-23-2024 Episodic Unclassified (20 sources) History left shoulder surgery 06-30-2022 Unclassified (2 sources) Hematoma of right lower extremity, initial encounter 10-23-2024 Results Test Name Value Interpretation Reference Range Facility CBC W Auto Differential pane l (Bld)on 03-26-2025 Basophils (Bld) [#/Vol] 0.04 10*3/uL Normal <0.11 [facility] Comment on above: Order Comment: Speci men Type: BLOOD SPECIMENOrdering Facility: [facility] Address: [address] [place] [address] Performed By: #### 5 7021-8 ####[facility] [id number] [place] [address] [place] Basophils/100 WBC (Bld) 0.8 % Normal [facility] Comment on above: Order Comment: Speci men Type: BLOOD SPECIMENOrdering Facility: [facility] Address: [address] [place] [address] Performed By: #### 5 7021-8 ####[facility] [id number] [place] [address] [place] Differential cell count method Nom (Bld) Auto Normal [facility] Comment on above: Order Comment: Speci men Type: BLOOD SPECIMENOrdering Facility: [facility] Address: [address] [place] [address] Performed By: #### 5 7021-8 ####[facility] [id number] [place] [address] [place] Eosinophils (Bld) [#/Vol] 0.15 10*3/uL Normal <0.46 [facility] Comment on above: Order Comment: Speci men Type: BLOOD SPECIMENOrdering Facility: [facility] Address: [address] [place] [address] Performed By: #### 5 7021-8 ####[facility] [id number] [place] [address] [place] Eosinophils/100 WBC (Bld) 3.0 % Normal [facility] Comment on above: Order Comment: Speci men Type: BLOOD SPECIMENOrdering Facility: [facility] Address: [address] [place] [address] Performed By: #### 5 7021-8 ####[facility] [id number] [place] [address] [place] Erythrocyte distribution width (RBC) [Ratio] 13.3 % Normal 11.5-15.0 [facility] Comment on above: Order Comment: Speci men Type: BLOOD SPECIMENOrdering Facility: [facility] Address: [address] [place] [address] Performed By: #### 5 7021-8 ####[facility] [id number] [place] [address] [place] Hematocrit (Bld) [Volume fraction] 41.6 % Normal 36.0-46.0 [facility] Comment on above: Order Comment: Speci men Type: BLOOD SPECIMENOrdering Facility: [facility] Address: [address] [place] [address] Performed By: #### 5 7021-8 ####[facility] [id number] [place] [address] [place] Hemoglobin (Bld) [Mass/Vol] 13.6 g/dL Normal 11.5-15.5 [facility] Comment on above: Order Comment: Speci men Type: BLOOD SPECIMENOrdering Facility: [facility] Address: [address] [place] [address] Performed By: #### 5 7021-8 ####[facility] [id number] [place] [id number] [place] Immature granulocytes (Bld) [#/Vol] 10*3/uL Normal <0.10 [facility] Comment on above: Order Comment: Speci men Type: BLOOD SPECIMENOrdering Facility: [facility] Address: [address] [place] [address] Performed By: #### 5 7021-8 ####[facility] [id number] [place] [address] [place] Immature granulocytes/100 WBC (Bld) 0.2 % Normal [facility] Comment on above: Order Comment: Speci men Type: BLOOD SPECIMENOrdering Facility: [facility] Address: [address] [place] [address] Performed By: #### 5 7021-8 ####[facility] [id number] [place] [address] [place] Lymphocytes (Bld) [#/Vol] 1.24 10*3/uL Normal 1.00-4.00 [facility] Comment on above: Order Comment: Speci men Type: BLOOD SPECIMENOrdering Facility: [facility] Address: [address] [place] [address] Performed By: #### 5 7021-8 ####[facility] [id number] [place] [address] [place] Lymphocytes/100 WBC (Bld) 24.7 % Normal [facility] Comment on above: Order Comment: Speci men Type: BLOOD SPECIMENOrdering Facility: [facility] Address: [address] [place] [address] Performed By: #### 5 7021-8 ####[facility] [id number] [place] [address] [place] MCH (RBC) [Entitic mass] 31.1 pg Normal 26.0-34.0 [facility] Comment on above: Order Comment: Speci men Type: BLOOD SPECIMENOrdering Facility: [facility] Address: [address] [place] [address] Performed By: #### 5 7021-8 ####[facility] [id number] [place] [address] [place] MCHC (RBC) [Mass/Vol] 32.7 g/dL Normal 30.5-36.0 [facility] Comment on above: Order Comment: Speci men Type: BLOOD SPECIMENOrdering Facility: [facility] Address: [address] [place] [address] Performed By: #### 5 7021-8 ####[facility]IA [id number] [place] [address] [place] MCV (RBC) [Entitic vol] 95.2 fL Normal 80.0-100.0 [facility] Comment on above: Order Comment: Speci men Type: BLOOD SPECIMENOrdering Facility: [facility] Address: [address] [place] [address] Performed By: #### 5 7021-8 ####[facility]IA [id number] [place] [address] [place] Monocytes (Bld) [#/Vol] 0.41 10*3/uL Normal <0.87 [facility] Comment on above: Order Comment: Speci men Type: BLOOD SPECIMENOrdering Facility: [facility] Address: [address] [place] [address] Performed By: #### 5 7021-8 ####[facility] LABIA [id number] [address] [place] Monocytes/100 WBC (Bld) 8.2 % Normal [facility] Comment on above: Order Comment: Speci men Type: BLOOD SPECIMENOrdering Facility: [facility] Address: [address] [place] [address] Performed By: #### 5 7021-8 ####[facility] LABCLIA [id number] [place] [address] [place] Neutrophils (Bld) [#/Vol] 3.18 10*3/uL Normal 1.45-7.50 [facility] Comment on above: Order Comment: Speci men Type: BLOOD SPECIMENOrdering Facility: [facility] Address: [address] [place] [address] Performed By: #### 5 7021-8 ####[facility] LABCLIA [id number] [place] [address] [place] Neutrophils/100 WBC (Bld) 63.1 % Normal [facility] Comment on above: Order Comment: Speci men Type: BLOOD SPECIMENOrdering Facility: [facility] Address: [address] [place] [address] Performed By: #### 5 7021-8 ####[facility] LABCLIA [id number] [place] [address] [place] Nucleated RBC (Bld) [#/Vol] 10*3/uL Normal <0.01 [facility] Comment on above: Order Comment: Speci men Type: BLOOD SPECIMENOrdering Facility: [facility] Address: [address] [place] [address] Performed By: #### 5 7021-8 ####[facility] LABCLIA [id number] [place] [address] [place] Nucleated RBC/100 WBC (Bld) [Ratio] 0.0 /100 WBC Normal [facility] Comment on above: Order Comment: Speci men Type: BLOOD SPECIMENOrdering Facility: [facility] Address: [address] [place] [address] Performed By: #### 5 7021-8 ####[facility] LABCLIA [id number] [place] [address] [place] Platelet mean volume (Bld) [Entitic vol] 9.3 fL Normal 9.0-12.7 [facility] Comment on above: Order Comment: Speci men Type: BLOOD SPECIMENOrdering Facility: [facility] Address: [address] [place] [address] Performed By: #### 5 7021-8 ####[facility] LABCLIA [id number] [place] [address] [place] Platelets (Bld) [#/Vol] 200 10*3/uL Normal 150-400 [facility] Comment on above: Order Comment: Speci men Type: BLOOD SPECIMENOrdering Facility: [facility] Address: [address] [place] [address] Performed By: #### 5 7021-8 ####[facility]CLIA [id number] [place] [address] [place] RBC (Bld) [#/Vol] 4.37 10*6/uL Normal 3.90-5.20 [facility] Comment on above: Order Comment: Speci men Type: BLOOD SPECIMENOrdering Facility: [facility] Address: [address] [place] [address] Performed By: #### 5 7021-8 ####[facility]CLIA [id number] [place] [address] [place] WBC (Bld) [#/Vol] 5.03 10*3/uL Normal 3.70-11.00 [facility] Comment on above: Order Comment: Speci men Type: BLOOD SPECIMENOrdering Facility: [facility] Address: [address] [place] [address] Performed By: #### 5 7021-8 ####[facility] LABCLIA [id number] [address] [place] CNOVon 03-26-2025 CNOV Office Visit (FAMPWS ) TEMITOPE HADDAD ([id number]) 1955 [address] [facility] Date Time Provider Department 03/26/25 1:00 PM SHAVONNE DONATO During your visit today, we recorded the following information about you: Pulse Blood pressure Weight 65/minute 122/82 79.4 kg Shavonne Donato APRN.MESSENGER COPY 03/26/2025 1:22 PM Signed 03/26/2025 Patient presents with: Follow Up Recording using [email or web address] software for draft documentation of the visit was discussed with the patient/authorized outside medical sales representative; all questions welcomed and answered. Patient/authorized outside medical sales representative agreed to proceed SUBJECTIVE: This is a 69 year old that is here today for Above Complaints. Temitope Haddad is a 69-year-old female with a history of depression, HTN, COPD, hypothyroidism, and osteoporosis, presenting for follow-up. Depression: - Recent bereavement due to cousin's passing; reports feeling "fine" now. - Taking citalopram daily; feels current dose is effective. Hypertension: - Not monitoring blood pressure at home. - Taking losartan daily. Hiatal Hernia: - Taking pantoprazole daily for heartburn with good effect. COPD: - Last seen by Dr. Mendez on 06/09; follow-up scheduled for 07/08 to discuss lung nodule in the upper right lung. - Using Trelegy inhaler, 1 puff daily. - Albuterol inhaler used PRN, primarily during physical exertion such as walking uphill. Hypothyroidism: - Taking levothyroxine daily. Osteoporosis: - Taking Fosamax once weekly. Lifestyle: - Has grandchildren. - History of living in [place] and [place]; expresses a desire to return to [place]. - History of a difficult marriage; after 25 years. PAST MEDICAL HISTORY Diagnosis Date Abdominal pain, right lower quadrant Benign neoplasm of colon Chronic kidney disease (CKD), stage III (moderate) ([facility]) COPD (chronic obstructive pulmonary disease) ([facility]) Dr. Wallace Depression Dysuria Generalized anxiety disorder [...] x 4 Suprapubic pain Vitamin D deficiency ALLERGIES Fish, Morphine, Vicodin [Hydrocodone-Acetaminophen], Aggrenox [Aspirin-Dipyridamole], and Hydrocodone Bitartrate MEDICATIONS Current Outpatient Medications Medication Sig citalopram hydrobromide (CELEXA) 10 mg tablet Take 1 tablet by mouth once daily. levothyroxine (SYNTHROID) 75 mcg tablet Take 1 tablet by mouth once daily. montelukast (SINGULAIR) 10 mg tablet Take 1 tablet by mouth daily at bedtime. atorvastatin (LIPITOR) 40 mg tablet Take 1 tablet by mouth daily at bedtime. For cholesterol. pantoprazole DR (PROTONIX) 40 mg tablet Take 1 tablet by mouth once daily. 30 minutes before eating. clopidogrel (PLAVIX) 75 mg tablet Take 1 tablet by mouth once daily. cholecalciferol (VITAMIN D3) 5,000 unit tab Take 1 tablet by mouth once daily. TRELEGY ELLIPTA 200-62.5-25 mcg inhalation powder Inhale 1 Puff as instructed once daily. albuterol HFA (PROVENTIL HFA, VENTOLIN HFA) 90 mcg/actuation inhaler inhale 2 puffs by mouth every 6 hours as needed for shortness of breath levocetirizine 5 mg tablet Take 5 mg by mouth once daily. losartan (COZAAR) 25 mg tablet Take 1 tablet by mouth once daily. alendronate (FOSAMAX) 70 mg tablet Take 1 tablet by mouth one time a week. Take with a full glass of water, on an empty stomach; do NOT lie down for 30minutes. (Patient not taking: Reported on 02/26/2025) ondansetron orally disintegrating (ZOFRAN ODT) 4 mg disintegrating tablet 1 TABLET ORALLY EVERY 8 HOURS NEEDED NEEDED FOR NAUSEA MOTION SICKNESS RELIEF,MECLIZ, 25 mg chewable tablet(s) Take 1 tablet by mouth three times a day as needed for dizziness. No current facility-administered medications for this visit. Medications and allergies reviewed by this provider. SOCIAL HISTORY SOCIAL HISTORY[1] REVIEW OF SYSTEMS All other reviewed and negative other than HPI. OBJECTIVE: BP 122/82 Pulse 65 Wt 79.4 kg (175 lb) SpO2 95% BMI 28.25 kg/m? . Vital signs reviewed by this provider. APPEARANCE Well appearing, alert, in no acute distress, well-hydrated, well nourished. EYES conjunctiva and sclera normal. HEART RRR with normal S1 and S2, no murmurs, no gallops, no JVD appreciated LUNG clear to auscultation. No wheezes, rhonchi or rales EXTREMITIES Extremities normal, No deformities, No skin discoloration, (more content not included)... Normal [facility] Comprehensive metabolic 2000 panelon 03-26-2025 Albumin [Mass/Vol] 4.3 g/dL Normal 3.9-4.9 [facility] Comment on above: Order Comment: Speci vandana Type: BLOOD SPECIMENOrdering Facility: [facility] Address: [address] [place] [address] Performed By: #### 3 016-3, 29298-7, ####[facility] LABCLIA [id number] [place] [address] [place] ALP [Catalytic activity/Vol] 73 U/L Normal 34-123 [facility] Comment on above: Order Comment: Awa ross Type: BLOOD SPECIMENOrdering Facility: [facility] Address: [address] [place] [address] Performed By: #### 3 016-3, 45182-5, ####[facility] LABCLIA [id number] [place] [address] [place] ALT [Catalytic activity/Vol] 37 U/L Normal 7-38 [facility] Comment on above: Order Comment: Arniei vandana Type: BLOOD SPECIMENOrdering Facility: [facility] Address: [address] [place] [address] Performed By: #### 3 016-3, 95063-4, 72844-4 ####[facility] LABCLIA [id number] [place] [address] [place] Anion gap [Moles/Vol] 12 mmol/L Normal 8-15 [facility] Comment on above: Order Comment: Speci men Type: BLOOD SPECIMENOrdering Facility: [facility] Address: [address] [place] [address] Performed By: #### 3 016-3, 55841-9, ####[facility] LABCLIA [id number] [place] [address] [place] AST [Catalytic activity/Vol] 34 U/L Normal 13-35 [facility] Comment on above: Order Comment: Speci men Type: BLOOD SPECIMENOrdering Facility: [facility] Address: [address] [place] [address] Performed By: #### 3 016-3, 17494-4, ####[facility] LABCLIA [id number] [place] [address] [place] Bilirubin [Mass/Vol] 0.4 mg/dL Normal 0.2-1.3 [facility] Comment on above: Order Comment: Speci men Type: BLOOD SPECIMENOrdering Facility: [facility] Address: [address] [place] [address] Performed By: #### 3 016-3, 74331-0, ####[facility] LABCLIA [id number] [place] [address] [place] Calcium [Mass/Vol] 9.6 mg/dL Normal 8.5-10.2 [facility] Comment on above: Order Comment: Speci men Type: BLOOD SPECIMENOrdering Facility: [facility] Address: [address] [place] [address] Performed By: #### 3 016-3, 41984-0, 18107-8 ####[facility] LABCLIA [id number] [place] [address] [place] Chloride [Moles/Vol] 103 mmol/L Normal 98-107 [facility] Comment on above: Order Comment: Speci men Type: BLOOD SPECIMENOrdering Facility: [facility] Address: [address] [place] [address] Performed By: #### 3 016-3, 58038-9, ####[facility] LABCLIA [id number] [place] [address] [place] CO2 [Moles/Vol] 27 mmol/L Normal 22-30 [facility] Comment on above: Order Comment: Speci men Type: BLOOD SPECIMENOrdering Facility: [facility] Address: [address] [place] [address] Performed By: #### 3 016-3, 92254-1, ####[facility] LABCLIA [id number] [place] [address] [place] Creatinine [Mass/Vol] 1.05 mg/dL High 0.58-0.96 [facility] Comment on above: Order Comment: Speci men Type: BLOOD SPECIMENOrdering Facility: [facility] Address: [address] [place] [address] Performed By: #### 3 016-3, 20630-4, ####[facility] LABCLIA [id number] [place] [address] [place] eGFRcr SerPlBld CKD-EPI 2020 58 mL/min/1.73m??? Low >=60 [facility] Comment on above: Order Comment: Speci men Type: BLOOD SPECIMENOrdering Facility: [facility] Address: [address] [place] [address] Result Comment: [place] mated Glomerular Filtration Rate (eGFR) is calculated using the 2020 CKD-EPI creatinine equation. This equation utilizes serum creatinine, sex, and age as parameters. The creatinine assay has traceable calibration to isotope dilution-mass spectrometry. Refer to KDIGO guidelines for clinical interpretation. In patients with unstable renal function, e.g. those with acute kidney injury, the eGFR may not accurately reflect actual GFR. Performed By: #### 3 016-3, 26796-3, 69764-2 ####[facility] LABCLIA [id number] [place] [address] [place] Glucose [Mass/Vol] 95 mg/dL Normal 74-99 [facility] Comment on above: Order Comment: Speci men Type: BLOOD SPECIMENOrdering Facility: [facility] Address: [address] [place] [address] Result Comment: The [place] Diabetes Association (ADA) provides guidance for cutoff values for fasting glucose and random glucose. The ADA defines fasting as no caloric intake for at least 8 hours. Fasting plasma glucose results between 100 to 125 mg/dL indicate increased risk for diabetes (prediabetes). Fasting plasma glucose results greater than or equal to 126 mg/dL meet the criteria for diagnosis of diabetes. In the absence of unequivocal hyperglycemia, results should be confirmed by repeat testing. In a patient with classic symptoms of hyperglycemia or hyperglycemic crisis, random plasma glucose results greater than or equal to 200 mg/dL meet the criteria for diagnosis of diabetes. Reference: Standards of Medical Care in Diabetes 2016, [place] Diabetes Association. Diabetes Care. 2016.39(Suppl 1). Performed By: #### 3 016-3, 20981-7, ####[facility] LABCLIA [id number] [place] [address] [place] Potassium [Moles/Vol] 4.0 mmol/L Normal 3.7-5.1 [facility] Comment on above: Order Comment: Speci men Type: BLOOD SPECIMENOrdering Facility: [facility] Address: [address] [place] [address] Performed By: #### 3 016-3, 17570-4, 01782-5 ####[facility] LABCLIA [id number] [place] [address] [place] Protein [Mass/Vol] 7.2 g/dL Normal 6.3-8.0 [facility] Comment on above: Order Comment: Speci men Type: BLOOD SPECIMENOrdering Facility: [facility] Address: [address] [place] [address] Performed By: #### 3 016-3, 22985-7, 62440-5 ####[facility] LABCLIA [id number] [place] [address] [place] Sodium [Moles/Vol] 142 mmol/L Normal 136-144 [facility] Comment on above: Order Comment: Speci men Type: BLOOD SPECIMENOrdering Facility: [facility] Address: [address] [place] [address] Performed By: #### 3 016-3, 62225-5, 64289-0 ####[facility] LABCLIA [id number] [place] [address] [place] Urea nitrogen [Mass/Vol] 19 mg/dL Normal 7-21 [facility] Comment on above: Order Comment: Speci men Type: BLOOD SPECIMENOrdering Facility: [facility] Address: [address] [place] [address] Performed By: #### 3 016-3, 99775-2, 83783-7 ####[facility] LABCLIA [id number] [place] [address] [place] Lipid 1996 panelon 5 Cholesterol [Mass/Vol] 152 mg/dL Normal <200 [facility] Comment on above: Order Comment: Speci men Type: BLOOD SPECIMENOrdering Facility: [facility] Address: [address] [place] [address] Result Comment: <200 mg/dL, Desirable 200-239 mg/dL, Borderline high >239 mg/dL, High Performed By: #### 3 016-3, 38014-0, 17036-3 ####[facility] LABCLIA [id number] [place] [address] [place] Cholesterol in HDL [Mass/Vol] 64 mg/dL Normal >39 [facility] Comment on above: Order Comment: Speci men Type: BLOOD SPECIMENOrdering Facility: [facility] Address: [address] [place] [address] Result Comment: 40-5 9 mg/dL, Acceptable >59 mg/dL, High: Negative risk factor for coronary heart disease <40 mg/dL, Low: Positive risk factor for coronary heart disease Performed By: #### 3 016-3, 91791-3, ####[facility] LABCLIA [id number] [place] [address] [place] Cholesterol in LDL [Mass/Vol] 73 mg/dL Normal <100 [facility] Comment on above: Order Comment: Speci men Type: BLOOD SPECIMENOrdering Facility: [facility] Address: [address] [place] [address] Result Comment: <100 mg/dL, Optimal 100-129 mg/dL, Near optimal/above optimal 130-159 mg/dL, Borderline high 160-189 mg/dL, High >189 mg/dL, Very high Secondary prevention optimal LDL Cholesterol levels are recommended to be <70 mg/dL LDL cholesterol is calculated using the Berumen-NIH equation. Performed By: #### 3 016-3, 77671-6, ####[facility] LABIA [id number] [place] [address] [place] Cholesterol in LDL/Cholesterol in HDL [Mass ratio] 1.14 {ratio} Normal <2.54 [facility] Comment on above: Order Comment: Speci men Type: BLOOD SPECIMENOrdering Facility: [facility] Address: [address] [place] [address] Result Comment: Kishan peng: 1. National Cholesterol Education Program ATP III Guideline At-A-Glance Quick Desk Reference: National Heart, Lung, and Blood Underwood. National Institutes of Health. 2001: NIH Publication No. 01-3305. 2. An International Atherosclerosis Society position paper: global recommendations for the management of dyslipidemia: executive summary, Atherosclerosis. 2014: 232(2):410-413. Performed By: #### 3 016-3, 72741-8, ####[facility]CLIA [id number] [place] [address] [place] Cholesterol in VLDL [Mass/Vol] 11 mg/dL Normal <30 [facility] Comment on above: Order Comment: Speci men Type: BLOOD SPECIMENOrdering Facility: [facility] Address: [address] [place] [address] Performed By: #### 3 016-3, 26428-8, ####[facility]CLIA [id number] [place] [address] [place] Cholesterol non HDL [Mass/Vol] 88 mg/dL Normal <130 [facility] Comment on above: Order Comment: Speci men Type: BLOOD SPECIMENOrdering Facility: [facility] Address: [address] [place] [address] Result Comment: <130 mg/dL, Optimal 130-159 mg/dL, Near optimal/above optimal 160-189 mg/dL, Borderline high 190-219 mg/dL, High >219 mg/dL, Very high Secondary prevention optimal non HDL Cholesterol levels are recommended to be <100 mg/dL Performed By: #### 3 016-3, 02868-5, ####[facility]CLIA [id number] [place] [address] [place] Cholesterol.total/Chol esterol in HDL [Mass ratio] 2.38 {ratio} Normal <5.10 [facility] Comment on above: Order Comment: Speci men Type: BLOOD SPECIMENOrdering Facility: [facility] Address: [address] [place] [address] Performed By: #### 3 016-3, 86792-3, ####[facility]CLIA [id number] [address] [place] FASTING TIME 17 hrs Normal [facility] Comment on above: Order Comment: Speci men Type: BLOOD SPECIMENOrdering Facility: [facility] Address: [address] [place] [address] Performed By: #### 3 016-3, 77567-3, ####[facility]CLIA [id number] [place] [address] [place] Triglyceride [Mass/Vol] 75 mg/dL Normal <150 [facility] Comment on above: Order Comment: Speci men Type: BLOOD SPECIMENOrdering Facility: [facility] Address: [address] [place] [address] Result Comment: <150 mg/dL, Normal 150-199 mg/dL, Borderline high 200-499 mg/dL, High >499 mg/dL, Very high Performed By: #### 3 016-3, 27756-9, 31232-3 ####[facility] LABCLIA [id number] [place] [id number] [place] TSH SerPl-aCncon 03-26-2025 TSH Qn 3.210 m[IU]/L Normal 0.270-4.20 0 [facility] Comment on above: Order Comment: Speci men Type: BLOOD SPECIMENOrdering Facility: [facility] Address: [address] [place] [address] Performed By: #### 3 016-3, 93601-3, 81027-9 ####[facility]CLIA [id number] [address] [facility] LUIS SCREENING W TOMOon 03-11 LUIS SCREENING W CALI * * *Final Report* * * DATE OF EXAM: Mar 11 2025 1:18PM [facility] 0582 - LUIS SCREENING W CALI / PROCEDURE REASON: Encounter for screening mammogram for breast cancer * * * * Physician Interpretation * * * * RESULT: [place] [address] #[id number] - LUIS SCREENING W CALI HISTORY: 69 year-old patient presents for screening. Patient is asymptomatic. Patient states no personal history of breast cancer. The patient has a family history of ovarian cancer. COMPARISON STUDIES: The present examination has been compared to prior imaging studies dated 02/23/2023 (mammogram) and 03/22/2023 (mammogram). MAMMOGRAM TECHNIQUE: The study was acquired using full field digital technology and interpreted from soft copy. Digital Breast Tomosynthesis (DBT) images were obtained and used to assist in the interpretation of this examination. MAMMOGRAM FINDINGS: There are scattered areas of fibroglandular density. There are stable post-operative changes in the left breast. No suspicious masses, calcifications or other abnormalities are seen in either breast. There has been no significant interval change. IMPRESSION: Routine screening mammogram is recommended. Annual mammogram will be due in 1 year. BI-RADS Category 2: Benign RISK: Based on the Tyrer-Cuzick (TC) risk assessment model, this patient has a 1.8% lifetime risk of developing breast cancer, meaning they are at average risk for developing breast cancer. However, this is only an estimate based on available history provided on the patient's questionnaire. We encourage all patients to talk with their providers about these results, further recommendations for managing breast health, and appropriate supplemental screening options if the patient has dense breast tissue. Interpreting Radiologist: Hemal Mejia M.D. Electronically signed on: 03/14/2025 [employer]: MARY Transcribe Date/Time: Mar 11 2025 12:49P Dictated by: HEMAL MEJIA MD This examination was interpreted and the report reviewed and electronically signed by: HEMAL MEJIA MD on Mar 14 2025 5:38PM EST [id number] Normal [facility] CNOVon 02-26-2025 CNOV Office Visit (FAMPWS ) TEMITOPE HADDAD ([id number]) 1955 [address] [facility] Date Time Provider Department 02/26/25 1:00 PM TATIANA RONQUILLO FAMPWS During your visit today, we recorded the following information about you: Temperature Pulse Respiration Blood pressure 97.4 degrees 71/minute 18/minute 118/58 Weight Height 78.6 kg 1.676 m Tatiana Ronquillo MD 02/26/2025 1:13 PM Signed Chief Complaint Patient presents with: ER F/U Recording using [email or web address] software for draft documentation of the visit was discussed with the patient/authorized outside medical sales representative; all questions welcomed and answered. Patient/authorized outside medical sales representative agreed to proceed HPI Temitope Haddad is a 69 year old female who presents here today for ER Follow Up. Accompanied today by her . Fall: - Fall occurred about a month ago while moving in the dark; tripped over a curb and landed on the right side. - Head impact during the fall; wearing a hat, which Temitope believes prevented bruising or scrapes. - Initial evaluation at [facility] included x-rays of the hand and shoulder, and a CT scan of the head; all results were normal. - Reports initial pain in the hand, wrist, and upper arm; currently only experiencing pain in the right ring finger. - Pain in the right ring finger began after the fall; Temitope fell on a closed fist. - Denies current pain in the elbow, wrist, or shoulder. - No headaches, nausea, emesis, or vision changes since the fall. - Denies use of a cane or walker; feels stable when walking. - No recent falls; currently rearranging items in the house after moving. - Taking Tylenol for pain; denies using ice or other treatments for swelling. - Denies fevers or chills. Depression: - Reports feeling "a little depressed" due to the recent passing of a cousin. Past medical history, appointments, medications, allergies reviewed. Previous Medical History PAST MEDICAL HISTORY Diagnosis Date Abdominal pain, right lower quadrant Benign neoplasm of colon Chronic kidney disease (CKD), stage III (moderate) ([facility]) COPD (chronic obstructive pulmonary disease) ([facility]) Dr. Wallace Depression Dysuria Generalized anxiety disorder [...] Left leg, managed by plastic surgery Stroke ([facility]) x 4 Suprapubic pain Vitamin D deficiency [...] LENS Bilateral 2013, 2014 SURGICAL ARTHROSCOPY ADAN W/RAE MEDINA RLS 09/10/2013 Left shoulder arthroscopic Sub AC [...] Visit Medication Sig citalopram hydrobromide (CELEXA) 10 (more content not included)... Normal [facility] XR DIGIT 3V FRONTAL/LAT/OBL RTon 02-26-2025 XR DIGIT 3V FRONTAL/LAT/OBL RT * * *Final Report* * * DATE OF EXAM: Feb 26 2025 1:21PM WOX [id number] - XR DIGIT 3V FRONTAL/LAT/OBL RT / PROCEDURE REASON: multiple diagnoses * * * * Physician Interpretation * * * * EXAMINATION: XR DIGIT 3V FRONTAL/LAT/OBL RT CLINICAL HISTORY: Pain and swelling in the fourth digit of the right hand Technique: XR DIGIT 3V FRONTAL/LAT/OBL RT -- RIGHT with 3 views on 3 images Comparison: None RESULT: No acute fracture or dislocation. Joint spaces are maintained. No periarticular erosions. IMPRESSION: No acute osseous abnormality [employer] Driver: GASPER Transcribe Date/Time: Mar 03 2025 4:00P Dictated by : UBALDO ALICIA MD This examination was interpreted and the report reviewed and electronically signed by: UBALDO ALICIA MD on Mar 03 2025 4:02PM EST [id number] Normal [facility] Brain/Head without Contrasto n 01-31-2025 Brain/Head without Contrast [facility] Imaging Services [address] [place] [address] Brain/Head without Contrast MR#: [id number] Acct: [id number] Name: TEMITOPE HADDAD Rep #: [id number] : 1955 F 69 From: Moy Barrios MD PCP: Dr. Bird Ronquillo MD Status: REG ER Study: Brain/Head without Contrast Date of Exam: 10/20 Exam# [id number] Ordering Dr: Jenni Payne DO PROCEDURE: BRAIN/HEAD WITHOUT CONTRAST 01/31/2025 REASON FOR EXAM: HEAD TRAUMA TECHNIQUE: Procedure Code: CTBR Modality: CT Procedure: BRAIN/HEAD WITHOUT CONTRAST Coronal and Sagittal reconstruction series were provided. One or more dose reduction techniques were used (e.g., Automated exposure control, adjustment of the mA and/or kV according to patient size, use of iterative reconstruction technique. RADIATION DOSE SUMMARY: CTDlvol: 45 mGy DLP: 779 mGycm COMPARISON: MRI on 06/07/2022 FINDINGS: Normal brainstem. Normal cerebellum. No intracranial mass. No intracranial hemorrhage. No edema. Bony calvarium intact. Sinuses are clear CT/Brain/Head without Contrast IMPRESSION: No acute abnormality Reading Location: [facility] CC: Dr. Bird Ronquillo MD; Dr. Jenni Payne DO [employer] Driver: Signed Normal [facility] CBC-Complete Blood Cnt No Di ffon 01-31-2025 Erythrocyte distribution width (RBC) [Ratio] 14.2 % Normal 11.6-14.6 [facility] Comment on above: Performed By: #### L 500.2500, L500.3400, L100.0100 #### [facility] Laboratory [address] [place], [address] Hematocrit (Bld) [Volume fraction] 38.5 % Normal 37-47 [facility] Comment on above: Performed By: #### L 500.2500, L500.3400, L100.0100 #### [facility] Laboratory [address] [place], [address] Hemoglobin (Bld) [Mass/Vol] 12.7 g/dL Normal 12.0-15.0 [facility] Comment on above: Performed By: #### L 500.2500, L500.3400, L100.0100 #### [facility] Laboratory [address] [place], [address] MCH (RBC) [Entitic mass] 31.2 pg Normal 27.0-32.0 [facility] Comment on above: Performed By: #### L 500.2500, L500.3400, L100.0100 #### [facility] Laboratory [address] [place], [address] MCHC (RBC) [Mass/Vol] 33.0 g/dL Normal 32-36 [facility] Comment on above: Performed By: #### L 500.2500, L500.3400, L100.0100 #### [facility] Laboratory [address] [place], [address] MCV (RBC) [Entitic vol] 94.6 fL Normal 81-99 [facility] Comment on above: Performed By: #### L 500.2500, L500.3400, L100.0100 #### [facility] Laboratory [address] [place], [address] Platelet mean volume (Bld) [Entitic vol] 8.9 fL Normal 6.2-12.0 [facility] Comment on above: Performed By: #### L 500.2500, L500.3400, L100.0100 #### [facility] Laboratory [address] [place], [address] Platelets (Bld) [#/Vol] 179 10*3/uL Normal 150-450 [facility] Comment on above: Performed By: #### L 500.2500, L500.3400, L100.0100 #### [facility] Laboratory [address] [place], [address] RBC (Bld) [#/Vol] 4.07 10*6/uL Low 4.2-5.4 [facility] Comment on above: Performed By: #### L 500.2500, L500.3400, L100.0100 #### [facility] Laboratory [address] [place], [address] RDW SD 48.4 fl High 35.1-43.9 [facility] Comment on above: Performed By: #### L 500.2500, L500.3400, L100.0100 #### [facility] Laboratory [address] [place], [address] WBC (Bld) [#/Vol] 4.3 10*3/uL Low 4.4-11.0 [facility] Comment on above: Performed By: #### L 500.2500, L500.3400, L100.0100 #### [facility] Laboratory [address] [place], [address] Emergency Department Summary on 01-31-2025 Emergency Department Summary [facility] Medical Records Department [address] [place] [address] Emergency Department Summary 01/31/25 MR#: [id number] Acct: [id number] Name: PETERTEMITOPE Rios Rep #: [id number] : 1955 69 From: Jenni Payne DO PCP: Dr. Bird Ronquillo MD Status:DEP ER Location: ED HPI History of Present Illness Chief Complaint: Fall Informant: patient Narrative Narrative: Patient is a 69-year-old female with history of osteoporosis, GERD, coronary artery disease, hyperlipidemia, IBS, COPD (on home oxygen) presenting for right wrist and upper arm pain after a fall 2 days ago. Patient states she was moving in a place she was moving out of was dark. She tripped over a curb. She fell landing with a closed fist on her right hand. She has had pain and swelling along the knuckles of her right hand and also had bruising to her right wrist and her right upper arm. She states she did hit her head but it was very mild and she was wearing a hat. She denies any report of loss of consciousness. She is on Plavix and does report very easy bruising. She took Tylenol with minimal relief of her pain. Because of her continued pain she is worried she might of broke something and came in for further evaluation. Denies any other injuries. Has otherwise been in her normal state of health. [facility] Medical History Osteoporosis Kidney stones Kidney disease GERD (gastroesophageal reflux disease) Myocardial infarct Internal impingement of right shoulder Hypothyroidism Abnormal Holter monitor finding Sinus pause Mixed hyperlipidemia Atherosclerotic heart disease of [place] coronary artery without angina pectoris Essential hypertension Traumatic avulsion of nail plate of toe Thigh pain History of IBS Wears glasses Wears dentures Depression Anxiety Skin tear Bruising Thyroid disease Ambulates with cane History of renal disease Arthritis High cholesterol Easy bruising Restless legs Difficulty swallowing Difficulty chewing History of hiatal hernia Gastric reflux Former smoker Shortness of breath on exertion Stroke/cerebrovascular accident History of echocardiogram History of stress test History of heart attack History of irregular heartbeat Acute seasonal allergic rhinitis Acute serous otitis media Acute dysfunction of both eustachian tubes Fuchs' corneal dystrophy HTN (hypertension) COPD (chronic obstructive pulmonary disease) Bronchitis Constipation Abdominal pain Chest pain CAD (coronary artery disease) Hypoxia Diaphragm paralysis History of cerebrovascular disease History of CVA (cerebrovascular accident) Anxiety disorder Home Medications ???Medication ???Instructions ???Recorded ???Last Taken ???Type clopidogrel 75 mg tablet 75 mg PO DAILY BLOOD THINNER 30 09/29/24 Rx days #30 tabs atorvastatin 40 mg tablet 40 mg PO DAILY 07/01/22 09/29/24 H istory losartan 25 mg tablet 25 mg PO DAILY #90 tabs 09/29/22 0 09/29/24 Rx alendronate 70 mg tablet 70 mg PO Q7D 08/14/23 09/29/24 His tory cholecalciferol (vitamin D3) 125 125 mcg PO DAILY 08/14/23 09/29/24 History mcg (5,000 unit) tablet citalopram 10 mg tablet 10 mg PO DAILY 08/14/23 09/29/24 H istory montelukast 10 mg tablet 10 mg PO DAILY 12/01/23 09/29/24 H istory multivitamin (One Daily 1 tab PO DAILY 01/16/24 09/29/24 H istory Multivitamin tablet) ondansetron 4 mg disintegrating 4 mg PO Q8H PRN PRN Nausea #10 tab s 07/31/24 Unknown Rx tablet levothyroxine 75 mcg tablet 75 mcg PO DAILY 09/30/24 09/29/24 History pantoprazole 40 mg tablet,delayed 40 mg PO DAILY 09/30/24 09/29/24 History release levocetirizine 5 mg tablet 5 mg PO DAILY ALLERGIES #90 tabs 0 10/16/24 Unknown Rx (Allergy Relief (levocetirizine)) albuterol sulfate 90 mcg/actuation 2 puff inhalation Q6H PRN Unknown Rx aerosol inhaler Shortness Of Breath #3 ea fluticasone fur. 200 mcg-umeclid 1 inh inhalation DAILY #60 ea 12/27 06/22 Unknown Rx 62.5 mcg-vilant 25 mcg inhalat.powder (Trelegy Ellipta) naproxen 500 mg tablet 500 mg PO BID PRN #20 tabs 5 Unknown Rx oxycodone 5 mg tablet 5 mg PO Q6H PRN pain 3 days #12 Unknown Rx tabs Allergy/AdvReac Type Severity Reaction Status Date / Time hydrocodone bitartrate (From Allergy HALLUCINATE Verified 01/31/25 17:58 Vicodin) S piperacillin (From Zosyn) Allergy Hives Verified 01/31/25 17:58 tazobactam (From Zosyn) Allergy Hives Verified 01/31/25 17:58 vancomycin Allergy Rash Verified 01/31/25 17:58 fish derived AdvReac Anaphylaxis Verified 01/31/25 17:58 morphine AdvReac HALLUCINATE Verified 01/31/25 17:58 S Family History Mother Diabetes (more content not included)... Normal [facility] Erythrocyte distribution wid th ratioOrdered By: Jenni Payne on 01-31-2025 Erythrocyte distribution width (RBC) [Ratio] 14.2 % 11.6-14.6 [facility] Erythrocyte distribution wid th standard deviationOrdered By: Jenni Payne on 01-31-2025 Erythrocyte distribution width (RBC) [Ratio] 48.4 fl High 35.1-43.9 [facility] Hand Min 3 Viewson Hand Min 3 Views [facility] Imaging Services [address] [place] [address] Hand Min 3 Views MR#: [id number] Acct: [id number] Name: TEMITOPE HADDAD Rep #: [id number] : 1955 F 69 From: Aylin Bull MD PCP: Dr. Bird Ronquillo MD Status: PRE ER Study: Hand Min 3 Views Date of Exam: 01/31/25 Exam# [id number] Ordering Dr: Provider,Ed P. PROCEDURE: HAND MIN 3 VIEWS 01/31/2025 REASON FOR EXAM: PAIN. Patient fell 2 days ago. TECHNIQUE: Procedure Code: [facility] Modality: DX Procedure: HAND MIN 3 VIEWS Laterality: Right COMPARISON: 07/19/2022 FINDINGS: BONES: No acute fracture or focal osseous lesion. JOINTS: No dislocation. The joint spaces are preserved. SOFT TISSUES: The soft tissues are unremarkable. RAD/Hand Min 3 Views IMPRESSION: No acute osseous abnormality. Reading Location: [id number] CC: Dr. Bird Ronquillo MD; ED PHYSICIAN PROVIDER [employer] Driver: Signed Normal [facility] Hematocrit Auto (Bld) [Volum e fraction]Ordered By: Jenni Payne on 01-31-2025 Hematocrit (Bld) [Volume fraction] 38.5 % 37-47 [facility] Hemoglobin measurementOrdere d By: Jenni Payne on 01-31-2025 Hemoglobin (Bld) [Mass/Vol] 12.7 g/dL 12.0-15.0 [facility] MCV (mean corpuscular volume ) determinationOrdered By: Jenni Payne on 01-31-2025 MCV (RBC) [Entitic vol] 94.6 fL 81-99 [facility] Mean corpuscular hemoglobin (MCH) determinationOrdered By: Jenni Payne on 01-31-2025 MCH (RBC) [Entitic mass] 31.2 pg 27.0-32.0 [facility] Mean corpuscular hemoglobin concentration (MCHC) determinationOrdered By: Jenni Payne on 01-31-2025 MCHC (RBC) [Mass/Vol] 33.0 g/dL 32-36 [facility] Mean platelet volume determi nationOrdered By: Jenni Payne on 01-31-2025 Platelet mean volume (Bld) [Entitic vol] 8.9 fL 6.2-12.0 [facility] Platelet countOrdered By: Taurus aPyne on 01-31-2025 Platelets (Bld) [#/Vol] 179 10*3/uL 150-450 [facility] RBC Auto (Bld) [#/Vol]Ordere d By: Jenni Payne on 01-31-2025 RBC (Bld) [#/Vol] 4.07 10*6/uL Low 4.2-5.4 [facility] Shoulder min 2 Viewson 01-31 Shoulder min 2 Views [facility] Imaging Services [address] [place] [address] Shoulder min 2 Views MR#: [id number] Acct: [id number] Name: TEMITOPE HADDAD Rep #: [id number] : 1955 F 69 From: Aylin Bull MD PCP: Dr. Bird Ronquillo MD Status: PRE ER Study: Shoulder min 2 Views Date of Exam: 01/31/25 Exam# [id number] Ordering Dr: Provider,Ed P. PROCEDURE: SHOULDER MIN 2 VIEWS 01/31/2025 REASON FOR EXAM: PAIN TECHNIQUE: Procedure Code: RADSH Modality: DX Procedure: SHOULDER MIN 2 VIEWS Laterality: Right COMPARISON: 04/19/2022 FINDINGS: BONES: No acute fracture or focal osseous lesion. JOINTS: No dislocation. The joint spaces are preserved. Small inferior AC joint osteophytes, unchanged. SOFT TISSUES: The soft tissues are unremarkable. RAD/Shoulder min 2 Views IMPRESSION: No acute osseous abnormality. Reading Location: [id number] CC: Dr. Bird Ronquillo MD; ED PHYSICIAN PROVIDER [employer] Driver: Signed Normal [facility] White blood cell (WBC) count Ordered By: Jenni Payne on 01-31-2025 WBC (Bld) [#/Vol] 4.3 10*3/uL Low 4.4-11.0 [facility] Emergency Department Summary on 01-19-2025 Emergency Department Summary [facility] Medical Records Department [address] [place] [address] Emergency Department Summary 01/19/25 MR#: [id number] Acct: [id number] Name: TEMITOPE HADDAD Rep #: [id number] : 1955 69 From: Naif Jackson MD PCP: Dr. Bird Ronquillo MD Status:REG ER Location: ED HPI History of Present Illness Chief Complaint: Back Narrative Narrative: 69-year-old female presents with right-sided back pain that she experienced 4 to 5 days ago. She is she states that she was just standing and felt a pop in her back. She now has pain when she tries to bend or twist her torso/trunk. She denies any red flag signs for cauda equina. No fevers or chills, no nausea or vomiting. No saddle anesthesia, no radiation down the leg. She has been taking Tylenol without relief. She states that the pain has been increasing in her right lower back. No dysuria or hematuria or other symptoms. [facility] Medical History Osteoporosis Kidney stones Kidney disease GERD (gastroesophageal reflux disease) Myocardial infarct Internal impingement of right shoulder Hypothyroidism Abnormal Holter monitor finding Sinus pause Mixed hyperlipidemia Atherosclerotic heart disease of [place] coronary artery without angina pectoris Essential hypertension Traumatic avulsion of nail plate of toe Thigh pain History of IBS Wears glasses Wears dentures Depression Anxiety Skin tear Bruising Thyroid disease Ambulates with cane History of renal disease Arthritis High cholesterol Easy bruising Restless legs Difficulty swallowing Difficulty chewing History of hiatal hernia Gastric reflux Former smoker Shortness of breath on exertion Stroke/cerebrovascular accident History of echocardiogram History of stress test History of heart attack History of irregular heartbeat Acute seasonal allergic rhinitis Acute serous otitis media Acute dysfunction of both eustachian tubes Fuchs' corneal dystrophy HTN (hypertension) COPD (chronic obstructive pulmonary disease) Bronchitis Constipation Abdominal pain Chest pain CAD (coronary artery disease) Hypoxia Diaphragm paralysis History of cerebrovascular disease History of CVA (cerebrovascular accident) Anxiety disorder Home Medications ???Medication ???Instructions ???Recorded ???Last Taken ???Type clopidogrel 75 mg tablet 75 mg PO DAILY BLOOD THINNER 30 09/29/24 Rx days #30 tabs atorvastatin 40 mg tablet 40 mg PO DAILY 07/01/22 09/29/24 H istory losartan 25 mg tablet 25 mg PO DAILY #90 tabs 09/29/22 0 09/29/24 Rx alendronate 70 mg tablet 70 mg PO Q7D 08/14/23 09/29/24 His tory cholecalciferol (vitamin D3) 125 125 mcg PO DAILY 08/14/23 09/29/24 History mcg (5,000 unit) tablet citalopram 10 mg tablet 10 mg PO DAILY 08/14/23 09/29/24 H istory montelukast 10 mg tablet 10 mg PO DAILY 12/01/23 09/29/24 H istory multivitamin (One Daily 1 tab PO DAILY 01/16/24 09/29/24 H istory Multivitamin tablet) ondansetron 4 mg disintegrating 4 mg PO Q8H PRN PRN Nausea #10 tab s 07/31/24 Unknown Rx tablet levothyroxine 75 mcg tablet 75 mcg PO DAILY 09/30/24 09/29/24 History pantoprazole 40 mg tablet,delayed 40 mg PO DAILY 09/30/24 09/29/24 History release levocetirizine 5 mg tablet 5 mg PO DAILY ALLERGIES #90 tabs 0 10/16/24 Unknown Rx (Allergy Relief (levocetirizine)) albuterol sulfate 90 mcg/actuation 2 puff inhalation Q6H PRN Unknown Rx aerosol inhaler Shortness Of Breath #3 ea fluticasone fur. 200 mcg-umeclid 1 inh inhalation DAILY #60 ea 12/27 06/22 Unknown Rx 62.5 mcg-vilant 25 mcg inhalat.powder (Trelegy Ellipta) naproxen 500 mg tablet 500 mg PO BID PRN #20 tabs 5 Unknown Rx oxycodone 5 mg tablet 5 mg PO Q6H PRN pain 3 days #12 Unknown Rx tabs Allergy/AdvReac Type Severity Reaction Status Date / Time hydrocodone bitartrate (From Allergy HALLUCINATE Verified 01/19/25 15:33 Vicodin) S piperacillin (From Zosyn) Allergy Hives Verified 01/19/25 15:33 tazobactam (From Zosyn) Allergy Hives Verified 01/19/25 15:33 vancomycin Allergy Rash Verified 01/19/25 15:33 fish derived AdvReac Anaphylaxis Verified 01/19/25 15:33 morphine AdvReac HALLUCINATE Verified 01/19/25 15:33 S Family History Mother Diabetes Heart disease Hypertension High cholesterol Father Heart disease Hypertension High cholesterol CVA (cerebral vascular accident) Surgical History History of right breast biopsy History of surgery on lower extremity History of bilateral cataract extraction History of shoulder surgery History of tubal ligation Social History (Reviewed 08 (more content not included)... Normal [facility] Lumbar Spine 2 or 3 Viewson 01-19-2025 Lumbar Spine 2 or 3 Views [facility] Imaging Services [address] [place] [address] Lumbar Spine 2 or 3 Views MR#: [id number] Acct: [id number] Name: TEMITOPE HADDAD Rep #: [id number] : 1955 F 69 From: Moise Lea DO PCP: Dr. Bird Ronquillo MD Status: REG ER Study: Lumbar Spine 2 or 3 Views Date of Exam: Exam# [id number] Ordering Dr: Naif Jackson MD PROCEDURE: LUMBAR SPINE 2 OR 3 VIEWS 01/19/2025 REASON FOR EXAM: PAIN TECHNIQUE: LUMBAR SPINE 2 OR 3 VIEWS FINDINGS: Vertebrae: Heights are intact. No significant endplate spondylosis. Discs: Heights are maintained. No significant degenerative disc disease. Alignment: AP alignment shows normal lumbar lordosis. Other: No acute process. RAD/Lumbar Spine 2 or 3 Views IMPRESSION: No acute process detected. Reading Location[facility] CC: Dr. Naif Jackson MD; Dr. Bird Ronquillo MD [employer] Driver: Signed Normal [facility] Pulmonary Visit Reporton Pulmonary Visit Report [facility] [place] [address] [place] [address] OFFICE VISIT Date of Service: 12/05/24 MR#: [id number] Acct: [id number] Name: TEMITOPE HADDAD Rep #: [id number] : 1955 Provider: CARLO Fernandez Age/Sex: 69/F Location: [facility] Status: Signed Assessment and Plan Assessment and Plan (1) Lung nodule: Status: Chronic Comment: 8 mm right upper lobe Plan: 8 mm nodule in the right upper lobe unchanged. However, the patient is at high risk for malignancy given her extensive smoking quitting just 2021. Repeating a diagnostic CT of the chest in 6 months. (2) Chronic hypoxic respiratory failure: Status: Chronic Plan: She is benefitting from supplemental oxygen when using. She was reminded that she should be utilizing 2 L/min of supplemental oxygen with any ambulation. No additional testing at this time. Follow up in 7 months. (3) 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: Status: Chronic Plan: Stable, she does not appear to be an exacerbation of COPD today. No need for prednisone or antibiotic. Continue current maintenance medication, symptomatically controlled with use of Trelegy. No repeat testing at this time. Contact the office for any new or worsening symptoms. An acute visit and typically be arranged within 1-2 days. Follow-up in 7 months. Orders: Orders Chest without Contrast 6 Months R91.1 - Solitary pulmonary nodule Plan Details Additional Comments: This note was generated with [employer] software. It may contain incorrect words, spelling, and punctuation that were not noted in checking the note before signing. Follow Up: 6 Months HPI 9 M FU Chief Complaint: Test results HPI Comments Details: This patient presents to the office today to discuss test results and follow-up on her stage III severe COPD. She is ambulatory. She has not recently been seen in the ED or urgent care for any respiratory illness. She has not required any antibiotics or prednisone for any breathing problems. She continues complete smoking cessation since 2020. She is compliant with use of Trelegy one puff daily. She does report rinsing her mouth out after each use. She denies any medication side effect such as sore throat or thrush. She has not recently used albuterol rescue inhaler. She does have shortness of breath on exertion. She denies any cough, sputum production or hemoptysis. She denies any wheezing, chest tightness, chest pain or palpitations. She has not had any fever, chills or body aches. She is compliant with supplemental oxygen wearing 2 L/min as needed. She has a portable pulse oximeter to check her saturations at home. She admits that she needs to buy replacement batteries for it. Test results personally reviewed with patient: Low-dose CT lung screening completed on November 18, 2024. Impression is essentially unchanged noncalcified nodule in the medial right upper lobe. Mild emphysema. Previously measured 8 mm. Intake Vital Signs 03/07/24 12:38 12/05/24 08:46 Height 5 ft 6 in 5 ft 6 in Weight: 176 lb BMI 28.4 BP 136/81 H Blood Pressure Location Lt brachial Position Sitting Respiration 16 Pulse 66 Pulse Source Monitor Temp 97.4 F L Temperature Source Temporal Artery Pulse Oximetry (%) 95 Oxygen Delivery Method room air Intake Visit Reasons: 9 M FU Chief Complaint: COPD Chemical Etch Operator Required: No DME Vendor: Geno Accompanied by: Self Is patient in pain?: No Allergies hydrocodone bitartrate (From Vicodin) Allergy (Verified 12/05/24 14:05) HALLUCINATES piperacillin (From Zosyn) Allergy (Verified 12/05/24 14:05) Hives tazobactam (From Zosyn) Allergy (Verified 12/05/24 14:05) Hives vancomycin Allergy (Verified 12/05/24 14:05) Rash fish derived Adverse Reaction (Verified 12/05/24 14:05) Anaphylaxis morphine Adverse Reaction (Verified 12/05/24 14:05) HALLUCINATES Medications ???Medication ???Instructions ???Recorded ???Confirmed ???Type clopidogrel 75 mg tablet 75 mg PO DAILY BLOOD THINNER 30 12/05/24 Rx days #30 tabs atorvastatin 40 mg tablet 40 mg PO DAILY 07/01/22 12/05/24 H istory losartan 25 mg tablet 25 mg PO DAILY #90 tabs 09/29/22 0 12/05/24 Rx alendronate 70 mg tablet 70 mg PO Q7D 08/14/23 12/05/24 His tory cholecalciferol (vitamin D3) 125 125 mcg PO DAILY 08/14/23 12/05/24 History mcg (5,000 unit) tablet citalopram 10 mg tablet 10 mg PO DAILY 08/14/23 12/05/24 H istory montelukast 10 mg tablet 10 mg PO DAILY 12/01/23 12/05/24 H istory multivitamin (One Daily 1 tab PO DAILY 01/16/24 12/05/24 H istory Multivitamin tablet) fluticasone fur. 200 mcg-umeclid 1 inh inhalation DAILY #60 ea 05/3012/05/24 Rx 62.5 mcg-vilant 25 mcg inhalat.powder (Trelegy (more content not included)... Normal [facility] Low Dose CT Lung Screeningon 11-18-[address] Lung Screening [facility] Imaging Services [address] [place] [id number] Lung Screening MR#: [id number] Acct: [id number] Name: TEMITOPE HADDAD Rep #: [id number] : 1955 F 69 From: Oskar nichole MD PCP: Dr. Bird Ronquillo MD Status: REG CLI Study: Low Dose CT Lung Screening Date of Exam: 11/18 Exam# [id number] Ordering Dr: Robin Fernandez [employer]C PROCEDURE: LOW DOSE CT LUNG SCREENING 11/18/2024 REASON FOR EXAM: SMOKER Patient has smoked 2 packs per day for 40 years. Former smoker. TECHNIQUE: LOW DOSE CT LUNG SCREENING Coronal and Sagittal reconstruction series were provided. One or more dose reduction techniques were used (e.g., Automated exposure control, adjustment of the mA and/or kV according to patient size, use of iterative reconstruction technique). REFERENCE LINK: [employer] Lung-RADS RADIATION DOSE SUMMARY: CTDlvol: 3.02 mGy DLP: 107.97 mGycm COMPARISON: Prior study dated November 15, 2023. FINDINGS: PULMONARY NODULES: (Only nodules >3mm are reported) Nodules described below are on series 1 unless otherwise specified. Pulmonary Nodules: Essentially unchanged noncalcified nodule in the medial right upper lobe. Hardware:None Lymph Nodes:Small mediastinal lymph nodes. Heart and Vasculature:Coronary artery calcifications are noted. Coronary Artery Calcifications: Present Lungs and Airways: Mild emphysematous changes are present. Pleura:No evidence of pleural effusion. Upper Abdomen:Unremarkable Bones:Degenerative changes of the thoracic spine. CT/Low Dose CT Lung Screening IMPRESSION: Stable examination. Coronary artery calcification (CAC) is is present Lung-RADS Category: 2 BENIGN (BASED ON IMAGING FEATURES OR INDOLENT BEHAVIOR). RECOMMEND 12-MONTH SCREENING LDCT. Other Significant Findings: None. Reading Location: [id number] CC: CARLO Fernandez; Dr. Bird Ronquillo MD [employer] Truck Driver: Signed [facility] 10-23-2024 CNOV Office Visit (FAMPWS ) TEMITOPE HADDAD ([id number]) 1955 F T Date Time Provider Department 10/23/24 10:00 AM TATIANA RONQUILLOWS During your visit today, we recorded the following information about you: Temperature Pulse Respiration Blood pressure 96.8 degrees 65/minute 16/minute 136/72 Weight 79 kg Tatiana Ronquillo MD 10/23/2024 11:15 AM Signed Chief Complaint Patient presents with: ER F/U: Patient to ER 2 separate visits and continues to have pain Recording using ambient AI software for draft documentation of the visit was discussed with the patient/authorized outside medical sales representative; all questions welcomed and answered. Patient/authorized outside medical sales representative agreed to proceed HPI Temitope Haddad is a 69 year old female who presents here today for Above Complaints. RLQ Abdominal Pain: - Initial ER visit on 09/30 for RLQ abdominal pain with associated nausea and emesis. - Pain described as continuous, mild, and worsened by ambulation; no alleviating factors identified. - Denied hematochezia, mucus in stool, or constipation. - No history of diverticulitis or diverticulosis. - CT abdomen and pelvis negative for acute findings; CBC showed normal WBC count and no anemia. - BMP revealed elevated BUN/creatinine ratio of 26:1 and glucose of 110 mg/dL; lactic acid <1. - Treated with IV antibiotics and discharged with instructions to follow up in 3-5 days. - Second ER visit on 10/13 for recurrent RLQ pain, described as sharp and intermittent, rated 10/10. - Pain not associated with specific triggers; no radiation of pain. - Associated with nausea; took Zofran and aspirin with minimal relief. - Denied fevers, chills, dyspnea, chest pain, emesis, dysuria, or hematuria. - CT abdomen and pelvis, CBC, CMP, lipase, and UA unremarkable. - Diagnosed with abdominal pain and discharged with instructions to follow up in 3-5 days. - Reports pain is still present, comes and goes, and is not associated with eating, coughing, sneezing, or bowel movements. - Avoiding greasy foods, which seems to reduce the frequency of pain episodes. - Takes Tylenol for pain with variable relief. - No new episodes of nausea, emesis, diarrhea, or constipation since last ER visit. - Denies hematochezia or melena. - No changes in urinary symptoms; has a history of overactive bladder. Hematoma: - Fell on bleachers on Monday night, resulting in a hematoma on the right holley. - No head injury or loss of consciousness; caught her during the fall. - Describes the injury as a "scratch" with minimal bleeding; treated with rubbing alcohol and bandages. - Reports pain in the right holley and ankle when walking; ankle was previously fractured. - No bruising or swelling noted in the ankle; able to move the ankle without difficulty. - Denies pain in the ankle at rest; pain is intermittent and depends on activity level. Past medical history, appointments, medications, allergies reviewed. Previous Medical History PAST MEDICAL HISTORY Diagnosis Date Abdominal pain, right lower quadrant Benign neoplasm of colon Chronic kidney disease (CKD), stage III (moderate) ([facility]) COPD (chronic obstructive pulmonary disease) ([facility]) Dr. Wallace Depression Dysuria Generalized anxiety disorder [...] Left leg, managed by plastic surgery Stroke ([facility]) x 4 Suprapubic pain Vitamin D deficiency [...] Father Alzheimer's Disease Father Parkinson?s Disease Father (more content not included)... Normal [facility] XR TIBIA FIBULA 2V AP/LAT RT on 10-23-2024 XR TIBIA FIBULA 2V AP/LAT RT * * *Final Report* * * DATE OF EXAM: Oct 23 2024 11:12AM WOX [id number] - XR TIBIA FIBULA 2V AP/LAT RT / PROCEDURE REASON: multiple diagnoses * * * * Physician Interpretation * * * * HISTORY: Fall (on) (from) other stairs and steps, initial encounter Hematoma of right lower extremity, initial encounter fell SAaturday, pain and bruising to anterior lower leg marked by arrow TECHNIQUE: AP lateral views COMPARISON: 01/22/2024 RESULT: Bony structures appear intact. Soft tissue swelling is seen over the distal anterior lower leg. IMPRESSION: No fracture [employer] Truck Driver: PSCB Transcribe Date/Time: Oct 23 2024 11:58A Dictated by : RYAN BOYCE MD This examination was interpreted and the report reviewed and electronically signed by: RYAN BOYCE MD on Oct 23 2024 11:59AM EST [id number] Normal [facility] XR Tibia and Fibula - right AP and Lateralon 10-23-2024 IMPRESSION: No fract ure [employer] Driver: PSCB Transcribe Date/Time: Oct 23 2024 11:58A Dictated by : RYAN BOYCE MD This examination was interpreted and the report reviewed and electronically signed by: RYAN BOYCE MD on Oct 23 2024 11:59AM EST DIVISION OF RADIOLOGY * * *Final Report* * * DATE OF EXAM: Oct 23 2024 11:12AM WOX [id number] - XR TIBIA FIBULA 2V AP/LAT RT / PROCEDURE REASON: multiple diagnoses * * * * Physician Interpretation * * * * HISTORY: Fall (on) (from) other stairs and steps, initial encounter Hematoma of right lower extremity, initial encounter fell SAaturday, pain and bruising to anterior lower leg marked by arrow TECHNIQUE: AP lateral views COMPARISON: 01/22/2024 RESULT: Bony structures appear intact. Soft tissue swelling is seen over the distal anterior lower leg. DIVISION OF RADIOLOGY Provider, [facility] - 10/23/2024 * * *Final Report* * * DATE OF EXAM: Oct 23 2024 11:12AM WOX 5266 - XR TIBIA FIBULA 2V AP/LAT RT / PROCEDURE REASON: multiple diagnoses * * * * Physician Interpretation * * * * HISTORY: Fall (on) (from) other stairs and steps, initial encounter Hematoma of right lower extremity, initial encounter fell SAaturday, pain and bruising to anterior lower leg marked by arrow TECHNIQUE: AP lateral views COMPARISON: 01/22/2024 RESULT: Bony structures appear intact. Soft tissue swelling is seen over the distal anterior lower leg. 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 Date/Time: Oct 23 2024 11:58A Dictated by : RYAN BOYCE MD This examination was interpreted and the report reviewed and electronically signed by: RYAN BOYCE MD on Oct 23 2024 11:59AM EST [facility] Radiology Study observation (narrative) [facility] XR Tibia and Fibula - right AP and LateralOrdered By: [facility] Provider on 10-23-2024 [facility] CNPNon 10-15-2024 CNPN Telephone (FAMPWS) TEMITOPE HADDAD ([id number]) 1955 F T Date Time Provider Department 10/15/24 TATIANA RONQUILLO During your visit today, we recorded the following information about you: AlexeyilianaDesirae 10/15/2024 11:24 AM Signed Patient requesting medication: clopidogrel (PLAVIX) 75 mg tablet () Patient last seen 08/06/24 Future visit scheduled: yes PHARMACY: [facility]. River Farias MA 10/15/2024 11:41 AM Signed Patient has been identified by name and date of : yes Patient phones for refill(s): Requested Prescriptions No prescriptions requested or ordered in this encounter Date of last office visit in primary care: 08/06/2024 Date of next office visit in primary care: 11/18/2024 Please advise. Thank you. River Farias MA. Tatiana Ronquillo MD 10/15/2024 12:19 PM Signed Rx sent. Talita Preston LPN 10/15/2024 2:36 PM Signed Phoned patient and advised Rx sent as requested. She voiced understanding. Talita Preston LPN' Allergies As of Date: 10/15/2024 Noted Allergy Reaction FISH 07/10/2012 7 - Swelling 12 - Shortness of Breath MORPHINE 10/11/2011 1 - Mental Status Change 14 - Other: See Comments VICODIN (HYDROCODONE-ACETAMINOPHE* 11 - Vomiting AGGRENOX (ASPIRIN-DIPYRIDAMOLE) 01/31/2023 14 - Other: See Comments Comments: Headache HYDROCODONE BITARTRATE 04/24/2019 14 - Other: See Comments Date Reviewed: 08/08/2024 Reviewed by: Darlyn Haddad, RT(R) - Partially Assessed Reason for Visit: patient requesting medication [Other] Order(s):clopidogrel (PLAVIX) 75 mg tabletTake 1 tablet by mouth once daily.Disp: 90 tabletRfl: 1 Prescriptions as of 10/15/2024 - levothyroxine (SYNTHROID) 75 mcg tablet Take 1 tablet by mouth once daily. - montelukast (SINGULAIR) 10 mg tablet Take 1 tablet by mouth daily at bedtime. - clopidogrel (PLAVIX) 75 mg tablet Take 1 tablet by mouth once daily. - losartan (COZAAR) 25 mg tablet Take 1 tablet by mouth once daily. - ondansetron orally disintegrating (ZOFRAN ODT) 4 mg disintegrating tablet 1 TABLET ORALLY EVERY 8 HOURS NEEDED NEEDED FOR NAUSEA - atorvastatin (LIPITOR) 40 mg tablet Take 1 tablet by mouth daily at bedtime. For cholesterol. - citalopram hydrobromide (CELEXA) 10 mg tablet Take 1 tablet by mouth once daily. - cholecalciferol (VITAMIN D3) 5,000 unit tab Take 1 tablet by mouth once daily. - pantoprazole DR (PROTONIX) 40 mg tablet Take 1 tablet by mouth once daily. 30 minutes before eating. - TRELEGY ELLIPTA 200-62.5-25 mcg inhalation powder Inhale 1 Puff as instructed once daily. - alendronate (FOSAMAX) 70 mg [...] as needed for shortness of breath - levocetirizine 5 mg tablet Take 5 mg by mouth once daily. Meds Comments as of 11/07/2022: Problem List As Of Date 10/15/2024 Noted Resolved Suprapubic pain [R10.2] 10/11/2011 06/10/2013 [...] (modera*07/28/2023 Benign paroxysmal vertigo of right ear [H81 (more content not included)... Normal [facility] Abdomen/Pelvis W IV Cont ONL Yon 10-13-2024 Abdomen/Pelvis W IV Cont ONLY [facility] Imaging Services [address] [place] [address] Abdomen/Pelvis W IV Cont ONLY MR#: [id number] Acct: [id number] Name: TEMITOPE HADDAD Rep #: [id number] : 1955 F 69 From: Scooter pelayo MD PCP: Dr. Bird Ronquillo MD Status: REG ER Study: Abdomen/Pelvis W IV Cont ONLY Date of Exam: Exam# [id number] Ordering Dr: Colin Caba DO PROCEDURE: ABDOMEN/PELVIS W IV CONT ONLY 10/13/2024 REASON FOR EXAM: RIGHT LOWER QUADRANT ABDOMINAL PAIN TECHNIQUE: Abdomen and pelvis CT with intravenous contrast. Coronal and Sagittal reconstruction series were provided. PATIENT PREPARATION: Per protocol ORAL CONTRAST TYPE: None. AMOUNT: mL CONTRAST: Omnipaque 350 VOLUME: 100 mL Not Provided Gauge IV One or more dose reduction techniques were used (e.g., Automated exposure control, adjustment of the mA and/or kV according to patient size, use of iterative reconstruction technique. COMPARISON: CT abdomen and pelvis 09/30/2024 FINDINGS: Lung bases: Emphysema within the imaged lung bases. Liver: Homogeneous attenuation. Several bilobar simple cysts. Gallbladder: No ductal dilation. Gallbladder is unremarkable. Spleen: Normal size. Pancreas: Normal size without evidence of mass surrounding inflammation or ductal dilation. Adrenals: Unremarkable Kidneys: Normal renal sizes. No hydronephrosis. Bladder: Unremarkable Reproductive Organs: No pelvic mass. Bowel: Small hiatal hernia. The stomach is collapsed. No bowel dilation or wall thickening. Colonic diverticulosis without diverticulitis. Large colonic stool. Appendix: Normal appendix. Lymph nodes: No suspicious lymph node enlargement. Vasculature: Moderate diffuse atherosclerotic calcifications are noted. Peritoneum / Retroperitoneum: No pneumoperitoneum. No ascites. Bones: No acute osseous abnormality. Soft tissue: No focal soft tissue abnormality. CT/Abdomen/Pelvis W IV Cont ONLY IMPRESSION: No acute findings in the abdomen and pelvis. Colonic diverticulosis without diverticulitis. Reading Location: [facility] CC: Dr. Colin Caba DO; Dr. Bird Ronquillo MD [employer] Driver: Signed Normal [facility] Absolute lymphocyte countOrd ered By: Colin Caba on 10-13-2024 Lymphocytes Auto (Unsp spec) [#/Vol] 1.26 10*3/uL 0.83-4.51 [facility] Absolute neutrophil countOrd ered By: Colin Caba on 10-13-2024 Neutrophils (Bld) [#/Vol] 2.5 10*3/uL 2.0-7.7 [facility] Anion gap in Serum or Plasma Ordered By: Colin Caba on 10-13-2024 Anion gap [Moles/Vol] 8 mmol/L 5-15 [facility] Automated lymphocyte count a s percentage of total leukocytesOrdered By: Colin Caba on 10-13-2024 Lymphocytes/100 WBC Auto (Unsp spec) 29.6 % 19-41 [facility] BUN/creatinine ratioOrdered By: Colin Caba on 10-13-2024 Urea nitrogen/Creatinine [Mass ratio] 17.8 mg/mg 10-20 [facility] Basophil percentageOrdered B y: Colin Caba on 10-13-2024 Basophils/100 WBC (Bld) 0.9 % 0-1 [facility] Bilirubin Test strip Ql (U)O rdered By: Colin Caba on 10-13-2024 Bilirubin Ql (U) Negative Negative [facility] Bilirubin, totalOrdered By: Colin Caba on 10-13-2024 Bilirubin [Mass/Vol] 0.41 mg/dL 0.00-1.30 [facility] CBC W/Diff, Automatedon 09-26 Absolute Lymph 1.26 X10 3/uL Normal 0.83-4.51 [facility] Comment on above: Performed By: #### L 500.2500, L500.3400, L100.0100 #### [facility] Laboratory [address] [place], [address] Absolute Neut 2.5 X10 3/uL Normal 2.0-7.7 [facility] Comment on above: Performed By: #### L 500.2500, L500.3400, L100.0100 #### [facility] [address] [place], [address] Basophils/100 WBC (Bld) 0.9 % Normal 0-1 [facility] Comment on above: Performed By: #### L 500.2500, L500.3400, L100.0100 #### [facility] [address] [place], [address] Eosinophils/100 WBC (Bld) 4.0 % Normal 0-5 [facility] Comment on above: Performed By: #### L 500.2500, L500.3400, L100.0100 #### [facility] [address] [place], [address] Erythrocyte distribution width (RBC) [Ratio] 13.3 % Normal 11.6-14.6 [facility] Comment on above: Performed By: #### L 500.2500, L500.3400, L100.0100 #### [facility] [address] [place], [address] Hematocrit (Bld) [Volume fraction] 39.7 % Normal 37-47 [facility] Comment on above: Performed By: #### L 500.2500, L500.3400, L100.0100 #### [facility] [address] [place], [address] Hemoglobin (Bld) [Mass/Vol] 13.2 g/dL Normal 12.0-15.0 [facility] Comment on above: Performed By: #### L 500.2500, L500.3400, L100.0100 #### [facility] [address] [place], [address] IG% 0.200 Normal 0.0-0.9 [facility] Comment on above: Result Comment: IG% - Immature Granulocytes (promyelocytes, myelocytes and metamyelocytes) > 1% indicates that a LEFT SHIFT is Present. Performed By: #### L 500.2500, L500.3400, L100.0100 #### [facility] [address] [place], [address] Lymphocytes/100 WBC (Bld) 29.6 % Normal 19-41 [facility] Comment on above: Performed By: #### L 500.2500, L500.3400, L100.0100 #### [facility] [address] [place], [address] MCH (RBC) [Entitic mass] 31.4 pg Normal 27.0-32.0 [facility] Comment on above: Performed By: #### L 500.2500, L500.3400, L100.0100 #### [facility] [address] [place], [address] MCHC (RBC) [Mass/Vol] 33.2 g/dL Normal 32-36 [facility] Comment on above: Performed By: #### L 500.2500, L500.3400, L100.0100 #### [facility] [address] [place], [address] MCV (RBC) [Entitic vol] 94.5 fL Normal 81-99 [facility] Comment on above: Performed By: #### L 500.2500, L500.3400, L100.0100 #### [facility] [address] [place], [address] Monocytes/100 WBC (Bld) 7.7 % Normal 0-10 [facility] Comment on above: Performed By: #### L 500.2500, L500.3400, L100.0100 #### [facility] [address] [place], [address] Neutrophils/100 WBC (Bld) 57.6 % Normal 47-70 [facility] Comment on above: Performed By: #### L 500.2500, L500.3400, L100.0100 #### [facility] [address] [place], [address] Nucleated RBC (Bld) [#/Vol] 0 10*3/uL Normal 0-5 [facility] Comment on above: Performed By: #### L 500.2500, L500.3400, L100.0100 #### [facility] [address] [place], [address] Platelet mean volume (Bld) [Entitic vol] 8.7 fL Normal 6.2-12.0 [facility] Comment on above: Performed By: #### L 500.2500, L500.3400, L100.0100 #### [facility] [address] [place], [address] Platelets (Bld) [#/Vol] 182 10*3/uL Normal 150-450 [facility] Comment on above: Performed By: #### L 500.2500, L500.3400, L100.0100 #### [facility] [address] [place], [address] RBC (Bld) [#/Vol] 4.20 10*6/uL Normal 4.2-5.4 [facility] Comment on above: Performed By: #### L 500.2500, L500.3400, L100.0100 #### [facility] [address] [place], [address] RDW SD 46.5 fl High 35.1-43.9 [facility] Comment on above: Performed By: #### L 500.2500, L500.3400, L100.0100 #### [facility] [address] [place], [address] WBC (Bld) [#/Vol] 4.3 10*3/uL Low 4.4-11.0 [facility] Comment on above: Performed By: #### L 500.2500, L500.3400, L100.0100 #### [facility] [address] [place], [address] Carbon dioxide, total [Moles /volume] in Central venous bloodOrdered By: Colin Caba on 10-13-2024 CO2 [Moles/Vol] 27.8 mmol/L 21.0-32.0 [facility] Chloride assayOrdered By: Vickie Caba on 10-13-2024 Chloride [Moles/Vol] 104 mmol/L 98-108 [facility] Comprehensive Metabolic Prof ilon 10-13-2024 Albumin [Mass/Vol] 3.8 g/dL Normal 3.4-4.8 [facility] Comment on above: Performed By: #### L 500.2500, L500.3400, L100.0100 #### [facility] [address] [place], [address] Albumin/Globulin [Mass ratio] 1.3 {ratio} Normal 0.9-2.4 [facility] Comment on above: Performed By: #### L 500.2500, L500.3400, L100.0100 #### [facility] [address] [place], [address] ALK PHOS 71 U/L Normal 35-104 [facility] Comment on above: Performed By: #### L 500.2500, L500.3400, L100.0100 #### [facility] [address] [place], [address] ALT [Catalytic activity/Vol] 28 U/L Normal <=34 [facility] Comment on above: Performed By: #### L 500.2500, L500.3400, L100.0100 #### [facility] [address] [place], [address] AST [Catalytic activity/Vol] 27 U/L Normal <=31 [facility] Comment on above: Performed By: #### L 500.2500, L500.3400, L100.0100 #### [facility] [address] [place], [address] Bilirubin [Mass/Vol] 0.41 mg/dL Normal 0.00-1.30 [facility] Comment on above: Performed By: #### L 500.2500, L500.3400, L100.0100 #### [facility] [address] [place], [address] BUN/CRE 17.8 RATIO Normal 10-20 [facility] Comment on above: Performed By: #### L 500.2500, L500.3400, L100.0100 #### [facility] [facility] [address] [place], [address] Calcium [Mass/Vol] 9.3 mg/dL Normal 7.6-11.0 [facility] Comment on above: Performed By: #### L 500.2500, L500.3400, L100.0100 #### [facility] [address] [place], [address] Chloride [Moles/Vol] 104 mmol/L Normal 98-108 [facility] Comment on above: Performed By: #### L 500.2500, L500.3400, L100.0100 #### [facility] [address] [place], [address] CO2 [Moles/Vol] 27.8 mmol/L Normal 21.0-32.0 [facility] Comment on above: Performed By: #### L 500.2500, L500.3400, L100.0100 #### [facility] [address] [place], [address] Creatinine [Mass/Vol] 0.97 mg/dL Normal 0.70-1.20 [facility] Comment on above: Performed By: #### L 500.2500, L500.3400, L100.0100 #### [facility] [address] [place], [address] ECRCL 59.97 ml/min Normal 50-250 [facility] Comment on above: Performed By: #### L 500.2500, L500.3400, L100.0100 #### [facility] [address] [place], [address] GAP 8 Normal 5-15 [facility] Comment on above: Performed By: #### L 500.2500, L500.3400, L100.0100 #### [facility] [address] [place], [address] GFR/1.73 sq M.predicted among non-blacks MDRD (S/P/Bld) [Vol rate/Area] 64 mL/min/{1.73_m2} Normal >60 [facility] Comment on above: Result Comment: mL/m in/1.73m2 CKD-EPI Creatinine Equation (2020) Performed By: #### L 500.2500, L500.3400, L100.0100 #### [facility] [address] [place], [address] Globulin (S) [Mass/Vol] 2.9 g/dL Normal 2.2-4.2 [facility] Comment on above: Performed By: #### L 500.2500, L500.3400, L100.0100 #### [facility] [address] [place], [address] Glucose [Mass/Vol] 100 mg/dL High 70-99 [facility] Comment on above: Performed By: #### L 500.2500, L500.3400, L100.0100 #### [facility] [address] [place], [address] Potassium [Moles/Vol] 4.5 mmol/L Normal 3.3-5.1 [facility] Comment on above: Performed By: #### L 500.2500, L500.3400, L100.0100 #### [facility] [address] [place], [address] Sodium [Moles/Vol] 140 mmol/L Normal 133-145 [facility] Comment on above: Performed By: #### L 500.2500, L500.3400, L100.0100 #### [facility] [address] [place], [address] T PROT 6.7 g/dL Normal 5.9-8.4 [facility] Comment on above: Performed By: #### L 500.2500, L500.3400, L100.0100 #### [facility] [address] [place], [address] Urea nitrogen [Mass/Vol] 17 mg/dL Normal 4-19 [facility] Comment on above: Performed By: #### L 500.2500, L500.3400, L100.0100 #### [facility] [address] [place], [address] Emergency Department Summary on 10-13-2024 Emergency Department Summary [facility] [address] [place] [address] Emergency Department Summary 10/13/24 MR#: [id number] Acct: [id number] Name: TEMITOPE HADDAD Rep #: [id number] : 1955 [id number] From: Colin Caba DO PCP: Dr. Bird Ronquillo MD Status:DEP ER Location: ED HPI History of Present Illness Chief Complaint: Abd Pain Narrative Narrative: Chief complaint and HPI: Right lower quadrant abdominal pain. 69-year-old female with past medical history of CVA on Plavix, HTN, HLD, hypothyroidism presents for evaluation of right lower quadrant abdominal pain. Onset this afternoon while lying down. Associated symptom nausea. Took aspirin and Zofran with little relief. Last bowel movement yesterday. Denies any fever, chills, shortness of breath, chest pain, vomiting, dysuria, hematuria. Review of systems: See HPI Medications: As listed on the chart Allergies: As listed on the chart PFSH: Per chart Vital signs: As listed on the chart. Reviewed. Physical exam: Gen: A O x3, NAD Head: Normocephalic, atraumatic Eyes: No sclera icterus, conjunctiva clear ENT: Moist mucous membranes Neck: Trachea midline, No JVD CV: RRR, no murmurs, no peripheral edema Resp: Lungs CTA BL, no w/r/c GI: Abd soft, non-distended, tender to palpation in the right lower quadrant, no rebound or rigidity : No CVA tenderness Musc: Full ROM, no deformity Skin: Warm, dry Neuro: Alert, oriented, grossly intact, sensation intact Psych: Cooperative, appropriate mood and affect [facility] Medical History Osteoporosis Kidney stones Kidney disease GERD (gastroesophageal reflux disease) Myocardial infarct Internal impingement of right shoulder Hypothyroidism Abnormal Holter monitor finding Sinus pause Mixed hyperlipidemia Atherosclerotic heart disease of [place] coronary artery without angina pectoris Essential hypertension Traumatic avulsion of nail plate of toe Thigh pain History of IBS Wears glasses Wears dentures Depression Anxiety Skin tear Bruising Thyroid disease Ambulates with cane History of renal disease Arthritis High cholesterol Easy bruising Restless legs Difficulty swallowing Difficulty chewing History of hiatal hernia Gastric reflux Former smoker Shortness of breath on exertion Stroke/cerebrovascular accident History of echocardiogram History of stress test History of heart attack History of irregular heartbeat Acute seasonal allergic rhinitis Acute serous otitis media Acute dysfunction of both eustachian tubes Fuchs' corneal dystrophy HTN (hypertension) COPD (chronic obstructive pulmonary disease) Bronchitis Constipation Abdominal pain Chest pain CAD (coronary artery disease) Hypoxia Diaphragm paralysis History of cerebrovascular disease History of CVA (cerebrovascular accident) Anxiety disorder Home Medications ???Medication ???Instructions ???Recorded ???Last Taken ???Type clopidogrel 75 mg tablet 75 mg PO DAILY BLOOD THINNER 30 09/29/24 Rx days #30 tabs atorvastatin 40 mg tablet 40 mg PO DAILY 07/01/22 09/29/24 H istory losartan 25 mg tablet 25 mg PO DAILY #90 tabs 09/29/22 0 09/29/24 Rx alendronate 70 mg tablet 70 mg PO Q7D 08/14/23 09/29/24 His tory cholecalciferol (vitamin D3) 125 125 mcg PO DAILY 08/14/23 09/29/24 History mcg (5,000 unit) tablet citalopram 10 mg tablet 10 mg PO DAILY 08/14/23 09/29/24 H istory montelukast 10 mg tablet 10 mg PO DAILY 12/01/23 09/29/24 H istory levocetirizine 5 mg tablet 5 mg PO DAILY ALLERGIES #90 tabs 0 01/01/24 09/29/24 Rx (Allergy Relief (levocetirizine)) albuterol sulfate 90 mcg/actuation 2 puff inhalation Q6H PRN 09/23/24 Rx aerosol inhaler Shortness Of Breath #3 ea multivitamin (One Daily 1 tab PO DAILY 01/16/24 09/29/24 H istory Multivitamin tablet) fluticasone fur. 200 mcg-umeclid 1 inh inhalation DAILY #60 ea 05/3009/29/24 Rx 62.5 mcg-vilant 25 mcg inhalat.powder (Trelegy Ellipta) ondansetron 4 mg disintegrating 4 mg PO Q8H PRN PRN Nausea #10 tab s 07/31/24 Unknown Rx tablet levothyroxine 75 mcg tablet 75 mcg PO DAILY 09/30/24 09/29/24 History pantoprazole 40 mg tablet,delayed 40 mg PO DAILY 09/30/24 09/29/24 History release Allergy/AdvReac Type Severity Reaction Status Date / Time hydrocodone bitartrate (From Allergy HALLUCINATE Verified 10/13/24 17:06 Vicodin) S piperacillin (From Zosyn) Allergy Hives Verified 10/13/24 17:06 tazobactam (From Zosyn) Allergy Hives Verified 10/13/24 17:06 vancomycin Allergy Rash Verified 10/13/24 17:06 fish derived AdvReac Anaphylaxis Verified 10/13/24 17:06 morphine AdvReac HALLUCINATE Verified 10/13/24 17:06 S Family History (Reviewed 0 (more content not included)... Normal [facility] Eosinophil percentageOrdered By: Colin Caba on 10-13-2024 Eosinophils/100 WBC (Bld) 4.0 % 0-5 [facility] Erythrocyte distribution wid th ratioOrdered By: Colin Caba on 10-13-2024 Erythrocyte distribution width (RBC) [Ratio] 13.3 % 11.6-14.6 [facility] Erythrocyte distribution wid th standard deviationOrdered By: Colin Pickering on 10-13-2024 Erythrocyte distribution width (RBC) [Ratio] 46.5 fl High 35.1-43.9 [facility] Glomerular filtration rate ( GFR) estimation/1.73 sq m using serum, plasma, or whole bOrdered By: Colin Caba on 10-13-2024 GFR/1.73 sq M.predicted among non-blacks MDRD (S/P/Bld) [Vol rate/Area] 64 mL/min/{1.73_m2} >60 [facility] Comment on above: mL/min/1.73m2 CKD-EP I Creatinine Equation (2020) Hematocrit Auto (Bld) [Volum e fraction]Ordered By: Colin Caba on 10-13-2024 Hematocrit (Bld) [Volume fraction] 39.7 % 37-47 [facility] Hemoglobin measurementOrdere d By: Colin Caba on 10-13-2024 Hemoglobin (Bld) [Mass/Vol] 13.2 g/dL 12.0-15.0 [facility] Immature granulocytes/100 WB C Auto (Bld)Ordered By: Colin Caba on 10-13-2024 Immature granulocytes/100 WBC (Bld) 0.200 % 0.0-0.9 [facility] Comment on above: IG% - Immature Granu locytes (promyelocytes, myelocytes and metamyelocytes) > 1% indicates that a LEFT SHIFT is Present. Ketones Test strip Ql (U)Ord ered By: Colin Caba on 10-13-2024 Ketones Ql (U) Negative Negative [facility] - Chemistry and C hemistry - challengeOrdered By: Colin Caba on 10-13-2024 AST [Catalytic activity/Vol] 27 U/L <32 [facility] Lipaseon 10-13-2024 Lipase [Catalytic activity/Vol] 12 U/L Low 13-75 [facility] Comment on above: Result Comment: Pleitalia lenó note: LIPASE revised reference range effective 22. New Lipase methodology. Expected to produce lower values than the previous assay method. NEW Reference Range: 13 - 75 U/L Performed By: #### L 500.2500, L500.3400, L100.0100 #### [facility] [place], [address] Lipase measurementOrdered By : [facility] on 10-13-2024 Lipase [Catalytic activity/Vol] 12 U/L Low 13-75 [facility] Comment on above: Please note:LIPASE r evised reference range effective 22. New Lipase methodology. Expected to produce lower values than the previous assay method. NEW Reference Range: 13 - 75 U/L MCV (mean corpuscular volume ) determinationOrdered By: Colin Caba on 10-13-2024 MCV (RBC) [Entitic vol] 94.5 fL 81-99 [facility] Mean corpuscular hemoglobin (MCH) determinationOrdered By: Colin Caba on 10-13-2024 MCH (RBC) [Entitic mass] 31.4 pg 27.0-32.0 [facility] Mean corpuscular hemoglobin concentration (MCHC) determinationOrdered By: Colin Caba on 10-13-2024 MCHC (RBC) [Mass/Vol] 33.2 g/dL 32-36 [facility] Mean platelet volume determi nationOrdered By: Colin Caba on 10-13-2024 Platelet mean volume (Bld) [Entitic vol] 8.7 fL 6.2-12.0 [facility] Microscopic analysis of urin e for red blood cells (RBC)Ordered By: Colin Caba on 10-13-2024 Microscopic analysis of urine for red blood cells (RBC) 0 SEEN /hpf 0-5 [facility] Monocyte percentageOrdered B y: Colin Caba on 10-13-2024 Monocytes/100 WBC (Bld) 7.7 % 0-10 [facility] Mucus LM Ql (Urine sed)Order ed By: Colin Caba on 10-13-2024 Mucus Ql (Urine sed) 0 SEEN /hpf [facility] Neutrophil percentageOrdered By: Colin Caba on 10-13-2024 Neutrophils/100 WBC (Bld) 57.6 % 47-70 [facility] Nitrite Test strip Ql (U)Ord ered By: Colin Caba on 10-13-2024 Nitrite Ql (U) Negative Negative [facility] Nucleated red blood cell per centageOrdered By: Colin Caba on 10-13-2024 Nucleated RBC/100 WBC (Bld) [Ratio] 0 % 0-5 [facility] Platelet countOrdered By: Vickie fontainel Rosales on 10-13-2024 Platelets (Bld) [#/Vol] 182 10*3/uL 150-450 [facility] Potassium measurement (mass/ volume)Ordered By: Colin Caba on 10-13-2024 Potassium (Unsp spec) [Mass/Vol] 4.5 mmol/L 3.3-5.1 [facility] Protein Test strip Ql (U)Ord ered By: Colin Caba on 10-13-2024 Protein Ql (U) 15 mg/dl High Negative [facility] RBC Auto (Bld) [#/Vol]Ordere d By: Colin Caba on 10-13-2024 RBC (Bld) [#/Vol] 4.20 10*6/uL 4.2-5.4 [facility] Serum creatinine measurement (mass/volume)Ordered By: Colin Caba on 10-13-2024 Creatinine [Mass/Vol] 0.97 mg/dL 0.70-1.20 [facility] Serum globulin measurementOr dered By: Colin Caba on 10-13-2024 Globulin (S) [Mass/Vol] 2.9 g/dL 2.2-4.2 [facility] Serum glucose measurement (m ass/volume)Ordered By: Colin Caba on 10-13-2024 Glucose [Mass/Vol] 100 mg/dL High 70-99 [facility] Serum or plasma alanine [place] otransferase (ALT) measurementOrdered By: Colin Caba on 10-13-2024 ALT [Catalytic activity/Vol] 28 U/L <35 [facility] Serum or plasma albumin tino urement (mass/volume)Ordered By: Colin Pickering on 10-13-2024 Albumin [Mass/Vol] 3.8 g/dL 3.4-4.8 [facility] Serum or plasma albumin/glob ulin mass ratioOrdered By: Colin Caba on 10-13-2024 Albumin/Globulin [Mass ratio] 1.3 {ratio} 0.9-2.4 [facility] Serum or plasma alkaline coty sphatase measurementOrdered By: Colin Caba on 10-13-2024 ALP [Catalytic activity/Vol] 71 U/L 35-104 [facility] Serum or plasma calcium tino urement (mass/volume)Ordered By: Colin Pickering on 10-13-2024 Calcium [Mass/Vol] 9.3 mg/dL 7.6-11.0 [facility] Serum or plasma urea nitroge n measurement (mass/volume)Ordered By: Colin Caba on 10-13-2024 Urea nitrogen [Mass/Vol] 17 mg/dL 4-19 [facility] Sodium levelOrdered By: Noble Caba on 10-13-2024 Sodium [Moles/Vol] 140 mmol/L 133-145 [facility] Squamous epithelial cells de tection in urine sediment by light microscopyOrdered By: Colin Caba on 10-13-2024 Epithelial cells.squamous LM Ql (Urine sed) 0 SEEN /hpf - [facility] Total proteinOrdered By: Clem Caba on 10-13-2024 Protein [Mass/Vol] 6.7 g/dL 5.9-8.4 [facility] Urinalysis, Completeon 10-13 BACTERIA 0 SEEN Normal None Seen [facility] Comment on above: Order Comment: CLEAN CATCH Performed By: #### L 500.2500, L500.3400, L100.0100 #### [facility] [address] [place], [address] EPI,SQUAMOUS 0 SEEN Normal - [facility] Comment on above: Order Comment: CLEAN CATCH Performed By: #### L 500.2500, L500.3400, L100.0100 #### [facility] [address] [place], [address] Mucus Ql (Urine sed) 0 SEEN Normal [facility] Comment on above: Order Comment: CLEAN CATCH Performed By: #### L 500.2500, L500.3400, L100.0100 #### [facility] [address] [place], [address] RBC 0 SEEN Normal 0-5 [facility] Comment on above: Order Comment: CLEAN CATCH Performed By: #### L 500.2500, L500.3400, L100.0100 #### [facility] [address] [place], [address] WBC 0 SEEN Normal 0-5 [facility] Comment on above: Order Comment: CLEAN CATCH Performed By: #### L 500.2500, L500.3400, L100.0100 #### [facility] [address] [place], [place], [id number] Urine clarityOrdered By: Clem Caba on 10-13-2024 Clarity (U) Clear Clear [facility] Urine color determinationOrd ered By: Colin Caba on 10-13-2024 Color (U) Yellow Yellow [facility] Urine glucose detectionOrder ed By: Colin Caba on 10-13-2024 Glucose Ql (U) Normal mg/dl Normal [facility] Urine leukocyte esterase det ection by dipstickOrdered By: Colin Caba on 10-13-2024 Leukocyte esterase Test strip Ql (U) 100 /ul High Negative [facility] Urine pHOrdered By: Colin Canada on 10-13-2024 pH (U) 7.0 [pH] 5.0 - 8.0 [facility] Urine sediment bacteria coun t by microscopy (number/high power field)Ordered By: Colin Caba on 10-13-2024 Bacteria LM.HPF (Urine sed) [#/Area] 0 /[HPF] None Seen [facility] Urine specific gravity measu rementOrdered By: Colin Caba on 10-13-2024 Specific gravity (U) [Rel density] 1.010 1.002-1.03 0 [facility] Urine urobilinogen measureme ntOrdered By: Colin Caba on 10-13-2024 Urobilinogen Ql (U) Normal mg/dl Normal [facility] White blood cell (WBC) count Ordered By: Colin Caba on 10-13-2024 WBC (Bld) [#/Vol] 4.3 10*3/uL Low 4.4-11.0 [facility] White blood cell countOrdere d By: Colin Caba on 10-13-2024 White blood cell count 0 SEEN /hpf 0-5 [facility] Abdomen/Pelvis W IV Cont ONL Yon 09-30-2024 Abdomen/Pelvis W IV Cont ONLY [facility] Imaging Services [address] [place] [address] Abdomen/Pelvis W IV Cont ONLY MR#: [id number] Acct: [id number] Name: TEMITOPE HADDAD Rep #: [id number] : 1955 F 69 From: Zeynep Negrete MD PCP: Dr. Bird Ronquillo MD Status: REG ER Study: Abdomen/Pelvis W IV Cont ONLY Date of Exam: Exam# [id number] Ordering Dr: Ed Gorman MD PROCEDURE: ABDOMEN/PELVIS W IV CONT ONLY 09/30/2024 REASON FOR EXAM: RLQ PAIN, ROVSING SIGN, PERCUSSION TENDERNESS TECHNIQUE: Abdomen and pelvis CT with intravenous contrast. Coronal and Sagittal reconstruction series were provided. PATIENT PREPARATION: Per protocol ORAL CONTRAST TYPE: None. CONTRAST: Isovue-300 VOLUME: 99 mL One or more dose reduction techniques were used (e.g., Automated exposure control, adjustment of the mA and/or kV according to patient size, use of iterative reconstruction technique. RADIATION DOSE SUMMARY: CTDlvol: 9.97+ 15.49 mGy DLP: 734.62 mGycm COMPARISON: 07/31/2024 COMPARISON: 08/01/2023 FINDINGS: Note that the exam is slightly limited by late arterial phase of contrast timing with unopacified hepatic veins. Lung bases: Suspect emphysema. Atelectasis/scarring. Tiny hiatal hernia.. Liver: Redemonstrated small cysts and additional tiny hypodensities too small to characterize likely cysts or hemangiomas in the absence of known malignancy. Spleen: Unremarkable. Gallbladder: Unremarkable. Pancreas: Unremarkable. Adrenals: Unremarkable. Kidneys: Renal sinus cysts. Bowel: Diverticulosis. Partially visualized appendix is normal in caliber and without definite inflammation where visible.. Lymph nodes: Unremarkable. Vasculature: Atherosclerosis.. Peritoneum: Unremarkable. Bladder: Underdistended and suboptimally evaluated, grossly unremarkable. Reproductive Organs: Unremarkable. Body Wall: Mild rectus diastasis. Tiny superimposed fat containing umbilical hernia. Bones: Demineralization. Multilevel spondylosis. Trace thoracolumbar dextroscoliosis may be positional. Similar posterior disc/osteophyte complex along the lower thoracic spine.. CT/Abdomen/Pelvis W IV Cont ONLY IMPRESSION: 1. No acute findings. Partially visualized appendix is normal in caliber and without definite inflammation where visible. 2. Additional description as above. Reading Location: [facility] CC: Dr. Bird Ronquillo MD; Dr. Ed Gorman MD [employer]: Signed Normal [facility] Absolute lymphocyte countOrd ered By: Edlos Gorman on 09-30-2024 Lymphocytes Auto (Unsp spec) [#/Vol] 1.44 10*3/uL 0.83-4.51 [facility] Absolute neutrophil countOrd ered By: [facility] on 09-30-2024 Neutrophils (Bld) [#/Vol] 2.4 10*3/uL 2.0-7.7 [facility] Anion gap in Serum or Plasma Ordered By: Ed Gorman on 09-30-2024 Anion gap [Moles/Vol] 12 mmol/L 5-15 [facility] Automated lymphocyte count a s percentage of total leukocytesOrdered By: Edlos Gorman on 09-30-2024 Lymphocytes/100 WBC Auto (Unsp spec) 32.0 % 19-41 [facility] BUN/creatinine ratioOrdered By: Edlos Gorman on 09-30-2024 Urea nitrogen/Creatinine [Mass ratio] 26.0 mg/mg High 10-20 [facility] Basic Metabolic Profile (BMP )on 09-30-2024 BUN/CRE 26.0 RATIO High - [facility] Comment on above: Performed By: #### L 500.2500, L100.0100, L503.6005 #### [facility] [address] [place], [place], [id number] Calcium [Mass/Vol] 9.4 mg/dL Normal 7.6-11.0 [facility] Comment on above: Performed By: #### L 500.2500, L100.0100, L503.6005 #### [facility] [address] [place], [address] Chloride [Moles/Vol] 104 mmol/L Normal 98-108 [facility] Comment on above: Performed By: #### L 500.2500, L100.0100, L503.6005 #### [facility] [address] [place], [address] CO2 [Moles/Vol] 22.6 mmol/L Normal 21.0-32.0 [facility] Comment on above: Performed By: #### L 500.2500, L100.0100, L503.6005 #### [facility] [address] [place], [address] Creatinine [Mass/Vol] 0.96 mg/dL Normal 0.70-1.20 [facility] Comment on above: Performed By: #### L 500.2500, L100.0100, L503.6005 #### [facility] [address] [place], [address] ECRCL 60.57 ml/min Normal 50-250 [facility] Comment on above: Performed By: #### L 500.2500, L100.0100, L503.6005 #### [facility] [address] [place], [address] GAP 12 Normal 5-15 [facility] Comment on above: Performed By: #### L 500.2500, L100.0100, L503.6005 #### [facility] [address] [place], [address] GFR/1.73 sq M.predicted among non-blacks MDRD (S/P/Bld) [Vol rate/Area] 65 mL/min/{1.73_m2} Normal >60 [facility] Comment on above: Result Comment: mL/m in/1.73m2 CKD-EPI Creatinine Equation (2020) Performed By: #### L 500.2500, L100.0100, L503.6005 #### [facility] [address] [place], [address] Glucose [Mass/Vol] 110 mg/dL High 70-99 [facility] Comment on above: Performed By: #### L 500.2500, L100.0100, L503.6005 #### [facility] [address] [place], [address] Potassium [Moles/Vol] 4.1 mmol/L Normal 3.3-5.1 [facility] Comment on above: Performed By: #### L 500.2500, L100.0100, L503.6005 #### [facility] [address] [place], [address] Sodium [Moles/Vol] 138 mmol/L Normal 133-145 [facility] [facility] Comment on above: Performed By: #### L 500.2500, L100.0100, L503.6005 #### [facility] [address] [place], [address] Urea nitrogen [Mass/Vol] 25 mg/dL High 4-19 [facility] Comment on above: Performed By: #### L 500.2500, L100.0100, L503.6005 #### [facility] [address] [place], [address] Basophil percentageOrdered B y: Ed Gorman on 09-30-2024 Basophils/100 WBC (Bld) 1.1 % High 0-1 [facility] CBC W/Diff, Automatedon Absolute Lymph 1.44 X10 3/uL Normal 0.83-4.51 [facility] Comment on above: Performed By: #### L 500.2500, L100.0100, L503.6005 #### [facility] [address] [place], [address] Absolute Neut 2.4 X10 3/uL Normal 2.0-7.7 [facility] Comment on above: Performed By: #### L 500.2500, L100.0100, L503.6005 #### [facility] [address] [place], [address] Basophils/100 WBC (Bld) 1.1 % High 0-1 [facility] Comment on above: Performed By: #### L 500.2500, L100.0100, L503.6005 #### [facility] [address] [place], [address] Eosinophils/100 WBC (Bld) 4.2 % Normal 0-5 [facility] Comment on above: Performed By: #### L 500.2500, L100.0100, L503.6005 #### [facility] [address] [place], [address] Erythrocyte distribution width (RBC) [Ratio] 13.5 % Normal 11.6-14.6 [facility] Comment on above: Performed By: #### L 500.2500, L100.0100, L503.6005 #### [facility] [address] [place], [address] Hematocrit (Bld) [Volume fraction] 38.6 % Normal 37-47 [facility] Comment on above: Performed By: #### L 500.2500, L100.0100, L503.6005 #### [facility] [address] [place], [address] Hemoglobin (Bld) [Mass/Vol] 13.0 g/dL Normal 12.0-15.0 [facility] Comment on above: Performed By: #### L 500.2500, L100.0100, L503.6005 #### [facility] [address] [place], [address] IG% 0.200 Normal 0.0-0.9 [facility] Comment on above: Result Comment: IG% - Immature Granulocytes (promyelocytes, myelocytes and metamyelocytes) > 1% indicates that a LEFT SHIFT is Present. Performed By: #### L 500.2500, L100.0100, L503.6005 #### [facility] [address] [place], [address] Lymphocytes/100 WBC (Bld) 32.0 % Normal 19-41 [facility] Comment on above: Performed By: #### L 500.2500, L100.0100, L503.6005 #### [facility] [address] [place], [address] MCH (RBC) [Entitic mass] 31.6 pg Normal 27.0-32.0 [facility] Comment on above: Performed By: #### L 500.2500, L100.0100, L503.6005 #### [facility] [address] [place], [address] MCHC (RBC) [Mass/Vol] 33.7 g/dL Normal 32-36 [facility] Comment on above: Performed By: #### L 500.2500, L100.0100, L503.6005 #### [facility] [address] [place], [address] MCV (RBC) [Entitic vol] 93.7 fL Normal 81-99 [facility] Comment on above: Performed By: #### L 500.2500, L100.0100, L503.6005 #### [facility] [address] [place], [address] Monocytes/100 WBC (Bld) 8.7 % Normal 0-10 [facility] Comment on above: Performed By: #### L 500.2500, L100.0100, L503.6005 #### [facility] [address] [place], [address] Neutrophils/100 WBC (Bld) 53.8 % Normal 47-70 [facility] Comment on above: Performed By: #### L 500.2500, L100.0100, L503.6005 #### [facility] [address] [place], [address] Nucleated RBC (Bld) [#/Vol] 0 10*3/uL Normal 0-5 [facility] Comment on above: Performed By: #### L 500.2500, L100.0100, L503.6005 #### [facility] [address] [place], [address] Platelet mean volume (Bld) [Entitic vol] 8.8 fL Normal 6.2-12.0 [facility] Comment on above: Performed By: #### L 500.2500, L100.0100, L503.6005 #### [facility] [address] [place], [address] Platelets (Bld) [#/Vol] 196 10*3/uL Normal 150-450 [facility] Comment on above: Performed By: #### L 500.2500, L100.0100, L503.6005 #### [facility] [address] [place], [address] RBC (Bld) [#/Vol] 4.12 10*6/uL Low 4.2-5.4 [facility] Comment on above: Performed By: #### L 500.2500, L100.0100, L503.6005 #### [facility] [address] [place], [address] RDW SD 46.0 fl High 35.1-43.9 [facility] Comment on above: Performed By: #### L 500.2500, L100.0100, L503.6005 #### [facility] [address] [place], [address] WBC (Bld) [#/Vol] 4.5 10*3/uL Normal 4.4-11.0 [facility] Comment on above: Performed By: #### L 500.2500, L100.0100, L503.6005 #### [facility] [address] [place], [address] Carbon dioxide, total [Moles /volume] in Central venous bloodOrdered By: Ed Gorman on 09-30-2024 CO2 [Moles/Vol] 22.6 mmol/L 21.0-32.0 [facility] Chloride assayOrdered By: Ug o Gorman on 09-30-2024 Chloride [Moles/Vol] 104 mmol/L 98-108 [facility] Emergency Department Summary on 09-30-2024 Emergency Department Summary [facility] Medical Records Department [address] [place] [address] Emergency Department Summary 09/30/24 MR#: [id number] Acct: [id number] Name: TEMITOPE HADDAD Rep #: [id number] : 1955 69 From: Ed Gorman MD PCP: Dr. Bird Ronquillo MD Status:REG ER Location: ED HPI History of Present Illness Chief Complaint: Abd Pain Detail of Chief Complaint: Right lower quadrant abdominal pain with nausea and vomiting Informant: patient and spouse/S.O. Onset/Context/Timing Onset: Today (Early this morning.) Context: Sudden Onset Timing: Continuous and Waxes and wanes Quality: Pain Location: Proximity of [place] Current Severity: Mild Maximum Severity: Severe Worsened by: Walking Relieved by: Nothing Associated Symptoms Associated Symptoms: Nausea and vomiting at approximately 0700 Narrative Narrative: Patient is a 69-year-old woman. She has history of chronic hypoxic respiratory failure, TIA, stage III severe COPD by Gold 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, essential hypertension, mixed hyperlipidemia, hypothyroidism and reported case of myocardial infarction. There is also history of anxiety disorder. Patient presents because of right lower quadrant pain. She had episode of nausea vomiting at home. She still feels nauseous. She had diarrhea several days ago. She had no blood or mucus in the diarrhea. Denies constipation. Denies history of diverticulosis or diverticulitis. She states she had a colonoscopy by Dr. Phillips last year. She was told there was no abnormality. She denies dysuria, frequency, urgency or hematuria. She denies history of ureterolithiasis, but does have history of renal calculi.. There is no history of trauma. She has not noted a rash. She states she was told that she has "a hyperactive gallbladder. Patient's significant other reported incontinence for the past week. She has no history of cystocele or rectocele. Prior similar symptoms: No Recent Illness/Hospitalization: No PFSH PFSH Medical History Osteoporosis Kidney stones Kidney disease GERD (gastroesophageal reflux disease) Myocardial infarct Internal impingement of right shoulder Hypothyroidism Abnormal Holter monitor finding Sinus pause Mixed hyperlipidemia Atherosclerotic heart disease of [place] coronary artery without angina pectoris Essential hypertension Traumatic avulsion of nail plate of toe Thigh pain History of IBS Wears glasses Wears dentures Depression Anxiety Skin tear Bruising Thyroid disease Ambulates with cane History of renal disease Arthritis High cholesterol Easy bruising Restless legs Difficulty swallowing Difficulty chewing History of hiatal hernia Gastric reflux Former smoker Shortness of breath on exertion Stroke/cerebrovascular accident History of echocardiogram History of stress test History of heart attack History of irregular heartbeat Acute seasonal allergic rhinitis Acute serous otitis media Acute dysfunction of both eustachian tubes Fuchs' corneal dystrophy HTN (hypertension) COPD (chronic obstructive pulmonary disease) Bronchitis Constipation Abdominal pain Chest pain CAD (coronary artery disease) Hypoxia Diaphragm paralysis History of cerebrovascular disease History of CVA (cerebrovascular accident) Anxiety disorder Home Medications ???Medication ???Instructions ???Recorded ???Last Taken ???Type clopidogrel 75 mg tablet 75 mg PO DAILY BLOOD THINNER 30 09/29/24 Rx days #30 tabs atorvastatin 40 mg tablet 40 mg PO DAILY 07/01/22 09/29/24 H istory losartan 25 mg tablet 25 mg PO DAILY #90 tabs 09/29/22 0 09/29/24 Rx alendronate 70 mg tablet 70 mg PO Q7D 08/14/23 09/29/24 His tory cholecalciferol (vitamin D3) 125 125 mcg PO DAILY 08/14/23 09/29/24 History mcg (5,000 unit) tablet citalopram 10 mg tablet 10 mg PO DAILY 08/14/23 09/29/24 H istory montelukast 10 mg tablet 10 mg PO DAILY 12/01/23 09/29/24 H istory levocetirizine 5 mg tablet 5 mg PO DAILY ALLERGIES #90 tabs 0 01/01/24 09/29/24 Rx (Allergy Relief (levocetirizine)) albuterol sulfate 90 mcg/actuation 2 puff inhalation Q6H PRN 09/23/24 Rx aerosol inhaler Shortness Of Breath #3 ea multivitamin (One Daily 1 tab PO DAILY 01/16/24 09/29/24 H istory Multivitamin tablet) fluticasone fur. 200 mcg-umeclid 1 inh inhalation DAILY #60 ea 05/3009/29/24 Rx 62.5 mcg-vilant 25 mcg inhalat.powder (Trelegy Ellipta) ondansetron 4 mg disintegrating 4 mg PO Q8H PRN PRN Nausea #10 tab s 07/31/24 Unknown Rx tablet levothyroxine 75 mcg tablet 75 mcg PO DAILY 09/30/24 09/29/24 History pantoprazole 40 mg tablet,delayed 40 mg PO DAILY 09/30/24 09/29/24 History release Allergy/AdvReac Type Severity Reaction Status Date / (more content not included)... Normal [facility] Eosinophil percentageOrdered By: Ed Gorman on 09-30-2024 Eosinophils/100 WBC (Bld) 4.2 % 0-5 [facility] Erythrocyte distribution wid th ratioOrdered By: Ed Gorman on 09-30-2024 Erythrocyte distribution width (RBC) [Ratio] 13.5 % 11.6-14.6 [facility] Erythrocyte distribution wid th standard deviationOrdered By: Ed Gorman on 09-30-2024 Erythrocyte distribution width (RBC) [Ratio] 46.0 fl High 35.1-43.9 [facility] Glomerular filtration rate ( GFR) estimation/1.73 sq m using serum, plasma, or whole bOrdered By: Ed Gorman on 09-30-2024 GFR/1.73 sq M.predicted among non-blacks MDRD (S/P/Bld) [Vol rate/Area] 65 mL/min/{1.73_m2} >60 [facility] Comment on above: mL/min/1.73m2 CKD-EP I Creatinine Equation (2020) Hematocrit Auto (Bld) [Volum e fraction]Ordered By: Edlos Gorman on 09-30-2024 Hematocrit (Bld) [Volume fraction] 38.6 % 37-47 [facility] Hemoglobin measurementOrdere d By: Edlos Gorman on 09-30-2024 Hemoglobin (Bld) [Mass/Vol] 13.0 g/dL 12.0-15.0 [facility] Immature granulocytes/100 WB C Auto (Bld)Ordered By: Edlos Gorman on 09-30-2024 Immature granulocytes/100 WBC (Bld) 0.200 % 0.0-0.9 [facility] Comment on above: IG% - Immature Granu locytes (promyelocytes, myelocytes and metamyelocytes) > 1% indicates that a LEFT SHIFT is Present. Lactic Acidon 09-30-2024 Lactate [Moles/Vol] mmol/L Normal 0.0-2.0 [facility] Comment on above: Order Comment: Y Performed By: #### L 500.2500, L100.0100, L503.6005 #### [facility] [address] [place] [address], [address] Lactic acid measurementOrder ed By: Edlos Gorman on 09-30-2024 Lactate [Moles/Vol] mmol/L 0.0-2.0 [facility] MCV (mean corpuscular volume ) determinationOrdered By: Edlos Gorman on 09-30-2024 MCV (RBC) [Entitic vol] 93.7 fL 81-99 [facility] Mean corpuscular hemoglobin (MCH) determinationOrdered By: Ed Gorman on 09-30-2024 MCH (RBC) [Entitic mass] 31.6 pg 27.0-32.0 [facility] Mean corpuscular hemoglobin concentration (MCHC) determinationOrdered By: [facility] MCHC (RBC) [Mass/Vol] 33.7 g/dL 32-36 [facility] Mean platelet volume determi nationOrdered By: Edlos Gorman on 09-30-2024 Platelet mean volume (Bld) [Entitic vol] 8.8 fL 6.2-12.0 [facility] Monocyte percentageOrdered B y: Ed Gorman on 09-30-2024 Monocytes/100 WBC (Bld) 8.7 % 0-10 [facility] Neutrophil percentageOrdered By: Edlos Gorman on 09-30-2024 Neutrophils/100 WBC (Bld) 53.8 % 47-70 [facility] Nucleated red blood cell per centageOrdered By: Ed Gorman on 09-30-2024 Nucleated RBC/100 WBC (Bld) [Ratio] 0 % 0-5 [facility] Platelet countOrdered By: Estevan Gorman on 09-30-2024 Platelets (Bld) [#/Vol] 196 10*3/uL 150-450 [facility] Potassium measurement (mass/ volume)Ordered By: Ed Gorman on 09-30-2024 Potassium (Unsp spec) [Mass/Vol] 4.1 mmol/L 3.3-5.1 [facility] RBC Auto (Bld) [#/Vol]Ordere d By: Ed Gorman on 09-30-2024 RBC (Bld) [#/Vol] 4.12 10*6/uL Low 4.2-5.4 [facility] Serum creatinine measurement (mass/volume)Ordered By: Ed Gorman on 09-30-2024 Creatinine [Mass/Vol] 0.96 mg/dL 0.70-1.20 [facility] Serum glucose measurement (m ass/volume)Ordered By: Ed Gorman on 09-30-2024 Glucose [Mass/Vol] 110 mg/dL High 70-99 [facility] Serum or plasma calcium tino urement (mass/volume)Ordered By: Ed Gorman on 09-30-2024 Calcium [Mass/Vol] 9.4 mg/dL 7.6-11.0 [facility] Serum or plasma urea nitroge n measurement (mass/volume)Ordered By: Ed Gorman on 09-30-2024 Urea nitrogen [Mass/Vol] 25 mg/dL High 4-19 [facility] Sodium levelOrdered By: Ed Gorman on 09-30-2024 Sodium [Moles/Vol] 138 mmol/L 133-145 [facility] White blood cell (WBC) count Ordered By: Ed Gorman on 09-30-2024 WBC (Bld) [#/Vol] 4.5 10*3/uL 4.4-11.0 [facility] MRI LIVER WO/W IVCONon 08-12 MRI LIVER WO/W IVCON * * *Final Report* * * DATE OF EXAM: Aug 12 2024 1:58PM M 0727 - MRI LIVER WO/W IVCON / PROCEDURE REASON: Hepatic cyst * * * * Physician Interpretation * * * * MRI OF THE ABDOMEN WITHOUT AND WITH CONTRAST STUDY DATE: 08/12/2024 1:58 PM CLINICAL HISTORY: Hepatic cyst COMPARISON: CT abdomen/pelvis 04/18/2024 TECHNIQUE: Multiplanar MRI of the abdomen with multiple sequences, performed before and after IV contrast. Contrast: IV: 8 ml of Elucirem Oral Contrast: None RESULT: Liver: The liver is normal in contour and enhances homogeneously. There is diffuse decreased signal throughout the liver on out of phase images consistent with fatty infiltration. There are multiple nonenhancing liver cysts with the largest measuring 1.7 cm in the right lobe. There is no thrombus in the portal venous system (splenic vein, main portal vein, left and right anterior and right posterior portal vein branches). Spleen - The spleen is normal in size. There are no focal splenic masses. Pancreaticobiliary: There is no intrahepatic biliary dilation. The common bile duct is normal in course and caliber. No filling defects are identified within the common bile duct. The gallbladder is normal in appearance. The pancreas has normal precontrast signal, enhances normally and is without focal lesions. The visualized portions of the pancreatic duct are normal. The adrenals are normal. Kidneys: The visualized portions of the kidneys enhance symmetrically. There is no hydroureteronephrosis. Bilateral renal cysts present. Other: There is no ascites. There are no abnormal fluid collections. There is no lymphadenopathy. IMPRESSION: 1. Multiple liver cysts measuring up to 1.7 cm. No enhancing liver mass identified. 2. Fatty infiltration of the liver [employer]: GASPER Transcribe Date/Time: Aug 15 2024 4:02P Dictated by : LUIS BROWN MD This examination was interpreted and the report reviewed and electronically signed by: LUIS BROWN MD on Aug 15 2024 4:15PM EST [id number] Normal [facility] Biliary ducts and Gallbla dder Views for patency of biliary structures and ejection fraction W sincalide and W radionuclide Josh 08-08-2024 IMPRESSION: High gallbladder ejection fraction, which can be due to physiologic variation or a functional disorder. [employer]: GASPER Transcribe Date/Time: Aug 08 2024 3:13P Dictated by : RIVER ROWLEY MD This examination was interpreted and the report reviewed and electronically signed by: RIVER ROWLEY MD on Aug 08 2024 3:14PM [facility] DIVISION OF RADIOLOGY * * *Final Report* * * DATE OF EXAM: Aug 08 2024 3:10PM [facility] 0021 - [place] HEPATOBILIARY W EF AND/OR RX / PROCEDURE REASON: multiple diagnoses * * * * Physician Interpretation * * * * EXAM: HEPATOBILIARY SCAN WITH GALLBLADDER EJECTION FRACTION HISTORY: Nausea RUQ pain TECHNIQUE: 5.5 millicuries of Tc-99m Choletec administered IV. Dynamic planar imaging of the abdomen acquired for 60 minutes. Next, 1.58 micrograms of CCK was administered IV followed by additional imaging to calculate a gallbladder ejection fraction. CORRELATION: CT 04/18/2024 RESULT: Liver: Within normal limits. Gallbladder: Luminal activity present by one hour, indicating cystic duct patency. * Ejection fraction (EF): 99% (normal > 35% and < 80%) CBD: Activity present in the proximal small bowel by 1 hour, indicating patency. Other: No enterogastric reflux. DIVISION OF RADIOLOGY [facility] * * *Final Report* * * DATE OF EXAM: Aug 08 2024 3:10PM [facility] 0021 - [place] HEPATOBILIARY W EF AND/OR RX / PROCEDURE REASON: multiple diagnoses * * * * Physician Interpretation * * * * EXAM: HEPATOBILIARY SCAN WITH GALLBLADDER EJECTION FRACTION HISTORY: Nausea RUQ pain TECHNIQUE: 5.5 millicuries of Tc-99m Choletec administered IV. Dynamic planar imaging of the abdomen acquired for 60 minutes. Next, 1.58 micrograms of CCK was administered IV followed by additional imaging to calculate a gallbladder ejection fraction. CORRELATION: CT 04/18/2024 RESULT: Liver: Within normal limits. Gallbladder: Luminal activity present by one hour, indicating cystic duct patency. * Ejection fraction (EF): 99% (normal > 35% and < 80%) CBD: Activity present in the proximal small bowel by 1 hour, indicating patency. Other: No enterogastric reflux. IMPRESSION IMPRESSION: High gallbladder ejection fraction, which can be due to physiologic variation or a functional disorder. [employer]: GASPER Transcribe Date/Time: Aug 08 2024 3:13P Dictated by : RIVER ROWLEY MD This examination was interpreted and the report reviewed and electronically signed by: RIVER ROWLEY MD on Aug 08 2024 3:14PM EST [facility] Radiology Study observation (narrative) [facility] Biliary ducts and Gallbla dder Views for patency of biliary structures and ejection fraction W sincalide and W radionuclide IVOrdered By: [facility] Provider on 08-08-2024 [facility] [place] HEPATOBILI[place] W EF AND/OR RXon 08-08-2024 [place] HEPATOBILIARY W EF AND/OR RX * * *Final Report* * * DATE OF EXAM: Aug 08 2024 3:10PM [place] [id number] - [place] HEPATOBILIARY W EF AND/OR RX / PROCEDURE REASON: multiple diagnoses * * * * Physician Interpretation * * * * EXAM: HEPATOBILIARY SCAN WITH GALLBLADDER EJECTION FRACTION HISTORY: Nausea RUQ pain TECHNIQUE: 5.5 millicuries of Tc-99m Choletec administered IV. Dynamic planar imaging of the abdomen acquired for 60 minutes. Next, 1.58 micrograms of CCK was administered IV followed by additional imaging to calculate a gallbladder ejection fraction. CORRELATION: CT 04/18/2024 RESULT: Liver: Within normal limits. Gallbladder: Luminal activity present by one hour, indicating cystic duct patency. * Ejection fraction (EF): 99% (normal > 35% and < 80%) CBD: Activity present in the proximal small bowel by 1 hour, indicating patency. Other: No enterogastric reflux. IMPRESSION: High gallbladder ejection fraction, which can be due to physiologic variation or a functional disorder. [employer]: GASPER Transcribe Date/Time: Aug 08 2024 3:13P Dictated by : RIVER ROWLEY MD This examination was interpreted and the report reviewed and electronically signed by: RIVER ROWLEY MD on Aug 08 2024 3:14PM EST [id number] Normal [facility] Hemoccult Stl Ql IAon 2024 Lower GI hemoglobin IA Ql (Stl) Negative Normal Negative [facility] Comment on above: Order Comment: Speci men Type: STOOL SPECIMENOrdering Facility: [facility] Address: [address] [place], [place] [address] [address] Performed By: #### 2 [id number] ####[facility] LABCLIA [id number] ANGELIQUE GROSSMAN [address] CNOVon 08-06-2024 CNOV Office Visit (FAMPWS ) TEMITOPE HADDAD ([id number]) 1955 F T Date Time Provider Department 08/06/24 1:20 PM SHAVONNE DONATO During your visit today, we recorded the following information about you: Pulse Respiration Blood pressure Weight 64/minute 18/minute 152/90 79 kg Shavonne Donato APRN.MESSENGER COPY 08/06/2024 2:00 PM Signed 08/06/2024 Patient presents with: ED Follow-up: [facility] 07/30/2024 for abdominal pain SUBJECTIVE: This is a 69 year old that is here today for Above Complaints HOSPITAL/ER FOLLOW UP: Reason for visit: RUQ pain Which facility: [facility] Date of visit: 07/31/2024 Diagnosis: RUQ pain Testing done: CT ABD/PEL blood work urine sample Treatment given: pain and nausea medication Continues with intermittent RUQ pain. Described as aching. Aggravated with movement. Taking tylenol which helps some. Nausea at times. Taking prescribed mediations. Admits to darker stool which she contributes to eating a lot of oreos. Denies fevers, weight loss, constipation, diarrhea, hematochezia, hematemesis, or vomiting. Hospital records reviewed PAST MEDICAL HISTORY Diagnosis Date Abdominal pain, right lower quadrant Benign neoplasm of colon Chronic kidney disease (CKD), stage III (moderate) (HCC) COPD (chronic obstructive pulmonary disease) ([facility]) Dr. Wallace Depression Dysuria Generalized anxiety disorder [...] Left leg, managed by plastic surgery Stroke ([facility]) x 4 Suprapubic pain Vitamin D deficiency ALLERGIES Fish, Morphine, Vicodin [Hydrocodone-Acetaminophen], Aggrenox [Aspirin-Dipyridamole], and Hydrocodone Bitartrate MEDICATIONS Current Outpatient Medications Medication Sig ondansetron orally disintegrating (ZOFRAN ODT) 4 mg disintegrating tablet 1 TABLET ORALLY EVERY 8 HOURS NEEDED NEEDED FOR NAUSEA levothyroxine (SYNTHROID) 75 mcg tablet Take 1 tablet by mouth once daily. atorvastatin (LIPITOR) 40 mg tablet Take 1 tablet by mouth daily at bedtime. For cholesterol. montelukast (SINGULAIR) 10 mg tablet Take 1 tablet by mouth daily at bedtime. citalopram hydrobromide (CELEXA) 10 mg tablet Take 1 tablet by mouth once daily. cholecalciferol (VITAMIN D3) 5,000 unit tab Take 1 tablet by mouth once daily. pantoprazole DR (PROTONIX) 40 mg tablet Take 1 tablet by mouth once daily. 30 minutes before eating. clopidogrel (PLAVIX) 75 mg tablet Take 1 tablet by mouth once daily. losartan (COZAAR) 25 mg tablet Take 1 tablet by mouth once daily. TRELEGY ELLIPTA 200-62.5-25 mcg inhalation powder Inhale 1 Puff as instructed once daily. alendronate (FOSAMAX) 70 mg tablet Take 1 tablet by mouth one time a week. Take with a full glass of water, on an empty stomach; do NOT lie down for 30minutes. (Patient not taking: Reported on 07/11/2024) MOTION SICKNESS RELIEF,MECLIZ, 25 mg chewable tablet(s) [...] No current facility-administered medications for this visit. Medications and allergies reviewed by this provider. SOCIAL HISTORY Social History Tobacco Use Smoking status: Former Current packs/day: 0.00 Average packs/day: 1.5 packs/day for 42.0 years (63.0 ttl pk-yrs) Types: Cigarettes Start date: 07/27/1978 Quit date: 07/27/2020 Years since quittin.0 Smokeless tobacco: Never Tobacco comments: d/c 07/27/2020 Vaping Use Vaping status: Never Used Substance Use Topics Alcohol use: No Drug use: No REVIEW OF SYSTEMS All other reviewed and negative other than HPI. OBJECTIVE: BP 152/90 Pulse 64 Resp 18 Wt 79 kg (174 lb 3.2 oz) SpO2 95% BMI 28.12 kg/m? . Vital signs reviewed by this provider. APPEARANCE Well appearing, alert, in no acute distress, well-hydrated, well nourished. EYES conjunctiva and sclera normal. HEART RRR with normal S1 and S2, no murmurs, no gallops, no JVD appreciated LUNG clear to auscultation. No wheezes, rhonchi or rales ABDOMEN bow (more content not included)... Normal [facility] Abdomen/Pelvis W IV Cont ONL Yon 07-31-2024 Abdomen/Pelvis W IV Cont ONLY [facility] Imaging Services [address] [place] [address] Abdomen/Pelvis W IV Cont ONLY MR#: [id number] Acct: [id number] Name: TEMITOPE HADDAD Rep #: [id number] : 1955 F 69 From: Zeynep Negrete MD PCP: Dr. Bird Ronquillo MD Status: REG ER Study: Abdomen/Pelvis W IV Cont ONLY Date of Exam: Exam# [id number] Ordering Dr: Raza Ruiz DO PROCEDURE: ABDOMEN/PELVIS W IV CONT ONLY REASON FOR EXAM: Right sided abdominal pain TECHNIQUE: CT abdomen and pelvis was performed with IV contrast. IV CONTRAST: 93 mL Isovue-300 COMPARISON: 02/11/2024. FINDINGS: Lung bases: Emphysema. Mild irregular ground-glass opacities in the left lower lobe are new from prior. Similar 3 mm left lower lobe nodule (series 2 image 10). New irregular additional left lower lobe nodule measures 14 x 10 mm (image 13). Tiny hiatal hernia containing fat. Liver: Similar small cysts and additional tiny hypodensities too small to characterize likely to reflect cysts or hemangiomas in the absence of known malignancy.. Spleen: Unremarkable. Gallbladder: Unremarkable. Pancreas: Unremarkable. Adrenals: Unremarkable. Kidneys: Small renal sinus cysts. Bowel: Gastric underdistention again limits evaluation of wall thickness. Diverticulosis. Normal caliber appendix. Lymph nodes: Unremarkable. Vasculature: Atherosclerosis. Peritoneum: Unremarkable. Bladder: Decompressed and suboptimally evaluated. Wall thickness is questionably borderline disproportionate to the degree wall thickening is of underdistention . Reproductive Organs: Unremarkable. Body Wall: Mild rectus diastasis. Tiny fat containing umbilical hernia. Bones: Suspect demineralization. Lower thoracic predominant spondylosis including a right paracentral posterior disc/osteophyte complex impinging on the spinal canal at T10-T11. Trace thoracolumbar dextroscoliosis may be positional.. CT/Abdomen/Pelvis W IV Cont ONLY IMPRESSION: 1. Borderline evidence of mild cystitis. Correlate with urinalysis. 2. New mild irregular opacities in the left lung base compatible with a minor infectious/inflammatory process such as pneumonia. Few nodules in the region up to 12 mm average axial diameter may be infectious/inflammatory however this is not definite. Recommend CT chest in 3 months to document stability or resolution. It appears that the patient will be nearly due for an annual low-dose lung screening CT at that time. 3. Additional description as above. Reading Location: [facility] CC: Dr. Bird Ronquillo MD; Dr. Raza Ruiz, DO [employer]: Signed Normal [facility] Absolute lymphocyte countOrd ered By: Raza Ruiz on 07-31-2024 Lymphocytes Auto (Unsp spec) [#/Vol] 1.05 10*3/uL 0.83-4.51 [facility] Absolute neutrophil countOrd ered By: Raza Ruiz on 07-31-2024 Neutrophils (Bld) [#/Vol] 3.8 10*3/uL 2.0-7.7 [facility] Amorphous sediment detection in urine sediment by light microscopyOrdered By: Raza Ruiz on 07-31-2024 Amorphous sediment LM Ql (Urine sed) 1+ URATE [facility] Anion gap in Serum or Plasma Ordered By: Raza Ruiz on 07-31-2024 Anion gap [Moles/Vol] 11 mmol/L 5-15 [facility] Automated lymphocyte count a s percentage of total leukocytesOrdered By: Raza Ruiz on 07-31-2024 Lymphocytes/100 WBC Auto (Unsp spec) 19.3 % 19-41 [facility] BUN/creatinine ratioOrdered By: Raza Ruiz on 07-31-2024 Urea nitrogen/Creatinine [Mass ratio] 14.9 mg/mg 10-20 [facility] Basic Metabolic Profile (BMP )on 07-31-2024 BUN/CRE 14.9 RATIO Normal - [facility] Comment on above: Performed By: #### L 500.2500, L500.3400, L100.0100 #### [facility] Laboratory [address] [place], [address] Calcium [Mass/Vol] 9.4 mg/dL Normal 7.6-11.0 [facility] Comment on above: Performed By: #### L 500.2500, L500.3400, L100.0100 #### [facility] Laboratory [address] [place], [address] Chloride [Moles/Vol] 106 mmol/L Normal 98-108 [facility] Comment on above: Performed By: #### L 500.2500, L500.3400, L100.0100 #### [facility] [address] [place], [address] CO2 [Moles/Vol] 23.8 mmol/L Normal 21.0-32.0 [facility] Comment on above: Performed By: #### L 500.2500, L500.3400, L100.0100 #### [facility] Laboratory [address] [place], [address] Creatinine [Mass/Vol] 1.00 mg/dL Normal 0.70-1.20 [facility] Comment on above: Performed By: #### L 500.2500, L500.3400, L100.0100 #### [facility] [address] [place], [address] ECRCL 56.93 ml/min Normal 50-250 [facility] Comment on above: Performed By: #### L 500.2500, L500.3400, L100.0100 #### [facility] [address] [place], [address] GAP 11 Normal 5-15 [facility] Comment on above: Performed By: #### L 500.2500, L500.3400, L100.0100 #### [facility] [address] [place], [address] GFR/1.73 sq M.predicted among non-blacks MDRD (S/P/Bld) [Vol rate/Area] 62 mL/min/{1.73_m2} Normal >60 [facility] Comment on above: Result Comment: mL/m in/1.73m2 CKD-EPI Creatinine Equation (2020) Performed By: #### L 500.2500, L500.3400, L100.0100 #### [facility] Laboratory [address] [place], [address] Glucose [Mass/Vol] 115 mg/dL High 70-99 [facility] Comment on above: Performed By: #### L 500.2500, L500.3400, L100.0100 #### [facility] [address] [place], [address] Potassium [Moles/Vol] 4.1 mmol/L Normal 3.3-5.1 [facility] Comment on above: Performed By: #### L 500.2500, L500.3400, L100.0100 #### [facility] [address] [place], [address] Sodium [Moles/Vol] 141 mmol/L Normal 133-145 [facility] Comment on above: Performed By: #### L 500.2500, L500.3400, L100.0100 #### [facility] [address] [place], [address] Urea nitrogen [Mass/Vol] 15 mg/dL Normal 4-19 [facility] Comment on above: Performed By: #### L 500.2500, L500.3400, L100.0100 #### [facility] [address] [place], [address] BUN Normal 4-19 [facility] Comment on above: Result Comment: IRENE VELA, SPOKE WITH ED PROOF COIN COLLECTOR TO CANCEL 2ND BMP,LIVER,LIPASE. Performed By: #### L 500.2500, L500.3400, L100.0100 #### [facility] [address] [place], [address] BUN/CRE Normal 10-20 [facility] Comment on above: Result Comment: IRENE VELA, SPOKE WITH ED PROOF COIN COLLECTOR TO CANCEL 2ND BMP,LIVER,LIPASE. Performed By: #### L 500.2500, L500.3400, L100.0100 #### [facility] [address] [place], [address] Calcium Normal 7.6-11.0 [facility] Comment on above: Result Comment: IRENE VELA, SPOKE WITH ED PROOF COIN COLLECTOR TO CANCEL 2ND BMP,LIVER,LIPASE. Performed By: #### L 500.2500, L500.3400, L100.0100 #### [facility] [address] [place], [address] CL Normal 98-108 [facility] Comment on above: Result Comment: IRENE VELA, SPOKE WITH ED PROOF COIN COLLECTOR TO CANCEL 2ND BMP,LIVER,LIPASE. Performed By: #### L 500.2500, L500.3400, L100.0100 #### [facility] [address] [place], [address] CO2 Normal 21.0-32.0 [facility] Comment on above: Result Comment: IRENE VELA, SPOKE WITH ED PROOF COIN COLLECTOR TO CANCEL 2ND BMP,LIVER,LIPASE. Performed By: #### L 500.2500, L500.3400, L100.0100 #### [facility] [address] [place], [address] CREAT,SERUM Normal 0.70-1.20 [facility] Comment on above: Result Comment: IRENE VELA, SPOKE WITH ED PROOF COIN COLLECTOR TO CANCEL 2ND BMP,LIVER,LIPASE. Performed By: #### L 500.2500, L500.3400, L100.0100 #### [facility] [address] [place], [address] eGFR Normal >60 [facility] Comment on above: Result Comment: IRENE VELA, SPOKE WITH ED PROOF COIN COLLECTOR TO CANCEL 2ND BMP,LIVER,LIPASE. Performed By: #### L 500.2500, L500.3400, L100.0100 #### [facility] [address] [place], [address] GAP Normal 5-15 [facility] Comment on above: Result Comment: IRENE VELA, SPOKE WITH ED PROOF COIN COLLECTOR TO CANCEL 2ND BMP,LIVER,LIPASE. Performed By: #### L 500.2500, L500.3400, L100.0100 #### [facility] [address] [place], [address] GLU Normal 70-99 [facility] Comment on above: Result Comment: IRENE VELA, SPOKE WITH ED PROOF COIN COLLECTOR TO CANCEL 2ND BMP,LIVER,LIPASE. Performed By: #### L 500.2500, L500.3400, L100.0100 #### [facility] [address] [place], [address] Potassium Normal 3.3-5.1 [facility] Comment on above: Result Comment: RIENE VELA, SPOKE WITH ED PROOF COIN COLLECTOR TO CANCEL 2ND BMP,LIVER,LIPASE. Performed By: #### L 500.2500, L500.3400, L100.0100 #### [facility] [address] [place], [address] Basic Metabolic Profile (BMP) Normal 133-145 [facility] Comment on above: Result Comment: IRENE VELA, SPOKE WITH ED PROOF COIN COLLECTOR TO CANCEL 2ND BMP,LIVER,LIPASE. Performed By: #### L 500.2500, L500.3400, L100.0100 #### [facility] [address] [place], [address] Basophil percentageOrdered B y: Raza Ruiz on 07-31-2024 Basophils/100 WBC (Bld) 0.7 % 0-1 [facility] Bilirubin Test strip Ql (U)O rdered By: Raza Ruiz on 07-31-2024 Bilirubin Ql (U) Negative Negative [facility] Bilirubin directOrdered By: Raza Ruiz on 07-31-2024 Bilirubin.direct [Mass/Vol] 0.14 mg/dL 0.00-0.30 [facility] Bilirubin, totalOrdered By: Raza Ruiz on 07-31-2024 Bilirubin [Mass/Vol] 0.29 mg/dL 0.00-1.30 [facility] CBC W/Diff, Automatedon Absolute Neut Normal 2.0-7.7 [facility] Comment on above: Result Comment: IRENE VELA, SPOKE WITH ED PROOF COIN COLLECTOR TO CANCEL SECOND CBCD. Performed By: #### L 500.2500, L500.3400, L100.0100 #### [facility] [address] [place], [address] HCT Normal 37-47 [facility] Comment on above: Result Comment: IRENE VELA, SPOKE WITH ED PROOF COIN COLLECTOR TO CANCEL SECOND CBCD. Performed By: #### L 500.2500, L500.3400, L100.0100 #### [facility] [address] [place], [address] HGB Normal 12.0-15.0 [facility] Comment on above: Result Comment: IRENE VELA, SPOKE WITH ED PROOF COIN COLLECTOR TO CANCEL SECOND CBCD. Performed By: #### L 500.2500, L500.3400, L100.0100 #### [facility] [address] [place], [address] MCH Normal 27.0-32.0 [facility] Comment on above: Result Comment: IRENE VELA, SPOKE WITH ED PROOF COIN COLLECTOR TO CANCEL SECOND CBCD. Performed By: #### L 500.2500, L500.3400, L100.0100 #### [facility] [address] [place], [address] MCHC Normal 32-36 [facility] Comment on above: Result Comment: IRENE VELA, SPOKE WITH ED PROOF COIN COLLECTOR TO CANCEL SECOND CBCD. Performed By: #### L 500.2500, L500.3400, L100.0100 #### [facility] [address] [place], [address] MCV Normal 81-99 [facility] Comment on above: Result Comment: IRENE VELA, SPOKE WITH ED PROOF COIN COLLECTOR TO CANCEL SECOND CBCD. Performed By: #### L 500.2500, L500.3400, L100.0100 #### [facility] [address] [place], [address] NEUT% Normal 47-70 [facility] Comment on above: Result Comment: IRENE VELA, SPOKE WITH ED PROOF COIN COLLECTOR TO CANCEL SECOND CBCD. Performed By: #### L 500.2500, L500.3400, L100.0100 #### [facility] [address] [place], [address] PLT Normal 150-450 [facility] Comment on above: Result Comment: IRENE VELA, SPOKE WITH ED PROOF COIN COLLECTOR TO CANCEL SECOND CBCD. Performed By: #### L 500.2500, L500.3400, L100.0100 #### [facility] [address] [place], [address] RBC Normal 4.2-5.4 [facility] Comment on above: Result Comment: IRENE VELA, SPOKE WITH ED PROOF COIN COLLECTOR TO CANCEL SECOND CBCD. Performed By: #### L 500.2500, L500.3400, L100.0100 #### [facility] [address] [place], [address] RDW CV Normal 11.6-14.6 [facility] Comment on above: Result Comment: IRENE VELA, SPOKE WITH ED PROOF COIN COLLECTOR TO CANCEL SECOND CBCD. Performed By: #### L 500.2500, L500.3400, L100.0100 #### [facility] [address] [place], [address] RDW SD Normal 35.1-43.9 [facility] Comment on above: Result Comment: IRENE VELA, SPOKE WITH ED PROOF COIN COLLECTOR TO CANCEL SECOND CBCD. Performed By: #### L 500.2500, L500.3400, L100.0100 #### [facility] [address] [place], [address] WBC Normal 4.4-11.0 [facility] Comment on above: Result Comment: IRENE VELA, SPOKE WITH ED PROOF COIN COLLECTOR TO CANCEL SECOND CBCD. Performed By: #### L 500.2500, L500.3400, L100.0100 #### [facility] [address] [place], [address] Absolute Lymph 1.05 X10 3/uL Normal 0.83-4.51 [facility] Comment on above: Performed By: #### L 500.2500, L100.0100, L503.6005 #### [facility] [address] [place], [address] Absolute Neut 3.8 X10 3/uL Normal 2.0-7.7 [facility] Comment on above: Performed By: #### L 500.2500, L100.0100, L503.6005 #### [facility] [address] [place], [address] Basophils/100 WBC (Bld) 0.7 % Normal 0-1 [facility] Comment on above: Performed By: #### L 500.2500, L100.0100, L503.6005 #### [facility] [address] [place], [address] Eosinophils/100 WBC (Bld) 2.6 % Normal 0-5 [facility] Comment on above: Performed By: #### L 500.2500, L100.0100, L503.6005 #### [facility] [address] [place], [address] Erythrocyte distribution width (RBC) [Ratio] 13.6 % Normal 11.6-14.6 [facility] Comment on above: Performed By: #### L 500.2500, L100.0100, L503.6005 #### [facility] [address] [place], [address] Hematocrit (Bld) [Volume fraction] 40.0 % Normal 37-47 [facility] Comment on above: Performed By: #### L 500.2500, L100.0100, L503.6005 #### [facility] [address] [place], [address] Hemoglobin (Bld) [Mass/Vol] 13.2 g/dL Normal 12.0-15.0 [facility] Comment on above: Performed By: #### L 500.2500, L100.0100, L503.6005 #### [facility] [address] [place], [address] IG% 0.600 Normal 0.0-0.9 [facility] Comment on above: Result Comment: IG% - Immature Granulocytes (promyelocytes, myelocytes and metamyelocytes) > 1% indicates that a LEFT SHIFT is Present. Performed By: #### L 500.2500, L100.0100, L503.6005 #### [facility] [address] [place], [address] Lymphocytes/100 WBC (Bld) 19.3 % Normal 19-41 [facility] Comment on above: Performed By: #### L 500.2500, L100.0100, L503.6005 #### [facility] [address] [place], [address] MCH (RBC) [Entitic mass] 31.0 pg Normal 27.0-32.0 [facility] Comment on above: Performed By: #### L 500.2500, L100.0100, L503.6005 #### [facility] [address] [place], [address] MCHC (RBC) [Mass/Vol] 33.0 g/dL Normal 32-36 [facility] Comment on above: Performed By: #### L 500.2500, L100.0100, L503.6005 #### [facility] [address] [place], [address] MCV (RBC) [Entitic vol] 93.9 fL Normal 81-99 [facility] Comment on above: Performed By: #### L 500.2500, L100.0100, L503.6005 #### [facility] [address] [place], [address] Monocytes/100 WBC (Bld) 6.4 % Normal 0-10 [facility] Comment on above: Performed By: #### L 500.2500, L100.0100, L503.6005 #### [facility] [address] [place], [address] Neutrophils/100 WBC (Bld) 70.4 % High 47-70 [facility] Comment on above: Performed By: #### L 500.2500, L100.0100, L503.6005 #### [facility] [address] [place], [address] Nucleated RBC (Bld) [#/Vol] 0 10*3/uL Normal 0-5 [facility] Comment on above: Performed By: #### L 500.2500, L100.0100, L503.6005 #### [facility] [address] [place], [address] Platelet mean volume (Bld) [Entitic vol] 8.5 fL Normal 6.2-12.0 [facility] Comment on above: Performed By: #### L 500.2500, L100.0100, L503.6005 #### [facility] [address] [place], [address] Platelets (Bld) [#/Vol] 267 10*3/uL Normal 150-450 [facility] Comment on above: Performed By: #### L 500.2500, L100.0100, L503.6005 #### [facility] [address] [place], [address] RBC (Bld) [#/Vol] 4.26 10*6/uL Normal 4.2-5.4 [facility] Comment on above: Performed By: #### L 500.2500, L100.0100, L503.6005 #### [facility] [address] [place], [address] RDW SD 45.6 fl High 35.1-43.9 [facility] Comment on above: Performed By: #### L 500.2500, L100.0100, L503.6005 #### [facility] [address] [place], [address] WBC (Bld) [#/Vol] 5.4 10*3/uL Normal 4.4-11.0 [facility] Comment on above: Performed By: #### L 500.2500, L100.0100, L503.6005 #### [facility] [address] [place], [address] Carbon dioxide, total [Moles /volume] in Central venous bloodOrdered By: Raza Ruiz on 07-31-2024 CO2 [Moles/Vol] 23.8 mmol/L 21.0-32.0 [facility] Chloride assayOrdered By: Prashant Ruiz on 07-31-2024 Chloride [Moles/Vol] 106 mmol/L 98-108 [facility] Emergency Department Summary on 07-31-2024 Emergency Department Summary [facility] Department [address] [place] [address] Emergency Department Summary 07/31/24 MR#: [id number] Acct: [id number] Name: TEMITOPE HADDAD Gabriel Rep #: [id number] : 1955 69 From: Raza Ruiz DO PCP: Dr. Bird Ronquillo MD Status:DEP ER Location: ED HPI History of Present Illness Chief Complaint: [facility] Medical History Osteoporosis Kidney stones Kidney disease GERD (gastroesophageal reflux disease) Myocardial infarct Internal impingement of right shoulder Hypothyroidism Abnormal Holter monitor finding Sinus pause Mixed hyperlipidemia Atherosclerotic heart disease of [place] coronary artery without angina pectoris Essential hypertension Traumatic avulsion of nail plate of toe Thigh pain History of IBS Wears glasses Wears dentures Depression Anxiety Skin tear Bruising Thyroid disease Ambulates with cane History of renal disease Arthritis High cholesterol Easy bruising Restless legs Difficulty swallowing Difficulty chewing History of hiatal hernia Gastric reflux Former smoker Shortness of breath on exertion Stroke/cerebrovascular accident History of echocardiogram History of stress test History of heart attack History of irregular heartbeat Acute seasonal allergic rhinitis Acute serous otitis media Acute dysfunction of both eustachian tubes Fuchs' corneal dystrophy HTN (hypertension) COPD (chronic obstructive pulmonary disease) Bronchitis Constipation Abdominal pain Chest pain CAD (coronary artery disease) Hypoxia Diaphragm paralysis History of cerebrovascular disease History of CVA (cerebrovascular accident) Anxiety disorder Home Medications ???Medication ???Instructions ???Recorded ???Last Taken ???Type levothyroxine 50 mcg tablet 50 mcg PO DAILY THYROID 08/17/21 0 06/07/22 History clopidogrel 75 mg tablet 75 mg PO DAILY BLOOD THINNER 30 07/13/22 Rx days #30 tabs atorvastatin 40 mg tablet 40 mg PO DAILY 07/01/22 Unknown Hi story losartan 25 mg tablet 25 mg PO DAILY #90 tabs 09/29/22 U nknown Rx alendronate 70 mg tablet 70 mg PO Q7D 08/14/23 Unknown Hist ory cholecalciferol (vitamin D3) 125 125 mcg PO DAILY 08/14/23 Unknown History mcg (5,000 unit) tablet citalopram 10 mg tablet 10 mg PO DAILY 08/14/23 Unknown Hi story meclizine 25 mg chewable tablet 25 mg PO TID PRN dizziness #30 tab s 08/14/23 Unknown Rx montelukast 10 mg tablet 10 mg PO DAILY 12/01/23 Unknown Hi story levocetirizine 5 mg tablet 5 mg PO DAILY ALLERGIES #90 tabs 0 01/01/24 Unknown Rx (Allergy Relief (levocetirizine)) albuterol sulfate 90 mcg/actuation 2 puff inhalation Q6H PRN Unknown Rx aerosol inhaler Shortness Of Breath #3 ea multivitamin (One Daily 1 tab PO DAILY 01/16/24 Unknown Hi story Multivitamin tablet) ciprofloxacin HCl 500 mg tablet 500 mg PO BID #20 TABLETS 02/12/24 Unknown Rx metronidazole 500 mg tablet 500 mg PO Q8H #30 tabs 02/12/24 Un known Rx oxycodone-acetaminophen 5 mg-325 1 tab PO Q6H PRN PRN Pain 3 days 0 02/12/24 Unknown Rx mg tablet #12 TABLETS fluticasone fur. 200 mcg-umeclid 1 inh inhalation DAILY #60 ea 05/30 01/20 Unknown Rx 62.5 mcg-vilant 25 mcg inhalat.powder (Trelegy Ellipta) ondansetron 4 mg disintegrating 4 mg PO Q8H PRN PRN Nausea #10 tab s 07/31/24 Unknown Rx tablet Allergy/AdvReac Type Severity Reaction Status Date / Time hydrocodone bitartrate (From Allergy HALLUCINATE Verified 07/31/24 14:59 Vicodin) S piperacillin (From Zosyn) Allergy Hives Verified 07/31/24 14:59 tazobactam (From Zosyn) Allergy Hives Verified 07/31/24 14:59 vancomycin Allergy Rash Verified 07/31/24 14:59 fish derived AdvReac Anaphylaxis Verified 07/31/24 14:59 morphine AdvReac HALLUCINATE Verified 07/31/24 14:59 S Family History Mother Diabetes Heart disease Hypertension High cholesterol Father Heart disease Hypertension High cholesterol CVA (cerebral vascular accident) Surgical History History of right breast biopsy History of surgery on lower extremity History of bilateral cataract extraction History of shoulder surgery History of tubal ligation Social History household members: significant other housing: apartment pets and animals: Yes pets and animals: dog(s) Smoking Status: Former smoker quit date: 10/28/19 pack-years: 25 Tobacco: How many years used: 25 second hand exposure: Yes alcohol intake: never substance use type: does not use caffeine: Yes Type: coffee Number of servings: 1 EXAM Physical Exam Const Vital Signs: (more content not included)... Normal [facility] Eosinophil percentageOrdered By: Raza Ruiz on 07-31-2024 Eosinophils/100 WBC (Bld) 2.6 % 0-5 [facility] Erythrocyte distribution wid th ratioOrdered By: Raza Ruiz on 03-05-2025 Erythrocyte distribution width (RBC) [Ratio] 13.6 % 11.6-14.6 [facility] Erythrocyte distribution wid th standard deviationOrdered By: Raza Ruiz on 07-31-2024 Erythrocyte distribution width (RBC) [Ratio] 45.6 fl High 35.1-43.9 [facility] Gallbladderon 07-31-2024 Gallbladder [facility] [address] [place] [address] Gallbladder MR#: [id number] Acct: [id number] Name: TEMITOPE HADDAD Rep #: [id number] : 1955 F 69 From: Kevon Jaocbs DO PCP: Dr. Bird Ronquillo MD Status: REG ER Study: Gallbladder Date of Exam: 07/31/24 Exam# [id number] Ordering Dr: Raza Ruiz DO PROCEDURE: GALLBLADDER REASON FOR EXAM: Pain COMPARISON: CT of the abdomen and pelvis dated 07/31/2024 FINDINGS: Liver: Multiple scattered cystic lesions, the largest measuring 2 cm within the right hepatic lobe. There is an ill-defined hypoechoic lesion within the right hepatic lobe measuring 1.8 cm. Gallbladder: The gallbladder is contracted, no sonographic evidence of stones. No gallbladder wall thickening. Negative Gutierrez's sign. Common bile duct: Normal measuring 4 mm. Pancreas: Visualized portions are sonographically unremarkable. Visualized portions of the right kidney are unremarkable. No right upper quadrant ascites. US/Gallbladder IMPRESSION: No evidence of cholelithiasis. Multiple hepatic cysts, as well as a 1.8 cm ill-defined hypoechoic lesion. CT versus MRI of the liver with and without contrast may be helpful for further characterization. Reading Location: [place] CC: Dr. Bird Ronquillo MD; Dr. Raza Ruiz DO [employer]: Signed Normal [facility] Glomerular filtration rate ( GFR) estimation/1.73 sq m using serum, plasma, or whole bOrdered By: Raza Ruiz on 07-31-2024 GFR/1.73 sq M.predicted among non-blacks MDRD (S/P/Bld) [Vol rate/Area] 62 mL/min/{1.73_m2} >60 [facility] Comment on above: mL/min/1.73m2 CKD-EP I Creatinine Equation (2020) Hematocrit Auto (Bld) [Volum e fraction]Ordered By: Raza Ruiz on 07-31-2024 Hematocrit (Bld) [Volume fraction] 40.0 % 37-47 [facility] Hemoglobin measurementOrdere d By: Raza Ruiz on 07-31-2024 Hemoglobin (Bld) [Mass/Vol] 13.2 g/dL 12.0-15.0 [facility] Immature granulocytes/100 WB C Auto (Bld)Ordered By: Raza Ruiz on 07-31-2024 Immature granulocytes/100 WBC (Bld) 0.600 % 0.0-0.9 [facility] Comment on above: IG% - Immature Granu locytes (promyelocytes, myelocytes and metamyelocytes) > 1% indicates that a LEFT SHIFT is Present. Ketones Test strip Ql (U)Ord ered By: Raza Ruiz on 07-31-2024 Ketones Ql (U) Negative Negative [facility] Laboratory - Chemistry and C hemistry - challengeOrdered By: Raza Ruiz on 07-31-2024 AST [Catalytic activity/Vol] 30 U/L <32 [facility] Lipaseon 07-31-2024 Lipase [Catalytic activity/Vol] 13 U/L Normal 13-75 [facility] Comment on above: Result Comment: Plea note: LIPASE revised reference range effective 22. New Lipase methodology. Expected to produce lower values than the previous assay method. NEW Reference Range: 13 - 75 U/L Performed By: #### L 500.2500, L500.3400, L100.0100 #### [facility] Laboratory [address] [place], [place], [id number] Lipase measurementOrdered By : Raza Ruiz on 07-31-2024 Lipase [Catalytic activity/Vol] 13 U/L 13-75 [facility] Comment on above: Please note:LIPASE r evised reference range effective 22. New Lipase methodology. Expected to produce lower values than the previous assay method. NEW Reference Range: 13 - 75 U/L Liver Profileon 07-31-2024 Albumin [Mass/Vol] 3.8 g/dL Normal 3.4-4.8 [facility] Comment on above: Performed By: #### L 500.2500, L500.3400, L100.0100 #### [facility] Laboratory [address] [place], [address] ALK PHOS 71 U/L Normal 35-104 [facility] Comment on above: Performed By: #### L 500.2500, L500.3400, L100.0100 #### [facility] Laboratory [address] [place], [address] ALT [Catalytic activity/Vol] 38 U/L High <=34 [facility] Comment on above: Performed By: #### L 500.2500, L500.3400, L100.0100 #### [facility] [address] [place], [address] AST [Catalytic activity/Vol] 30 U/L Normal <=31 [facility] Comment on above: Performed By: #### L 500.2500, L500.3400, L100.0100 #### [facility] Laboratory [address] [place], [address] Bilirubin [Mass/Vol] 0.29 mg/dL Normal 0.00-1.30 [facility] Comment on above: Performed By: #### L 500.2500, L500.3400, L100.0100 #### [facility] Laboratory [address] [place], [address] Bilirubin.direct [Mass/Vol] 0.14 mg/dL Normal 0.00-0.30 [facility] Comment on above: Performed By: #### L 500.2500, L500.3400, L100.0100 #### [facility] Laboratory [address] [place], [address] Globulin (S) [Mass/Vol] 3.2 g/dL Normal 2.2-4.2 [facility] Comment on above: Performed By: #### L 500.2500, L500.3400, L100.0100 #### [facility] Laboratory [address] [place], [address] T PROT 7.0 g/dL Normal 5.9-8.4 [facility] Comment on above: Performed By: #### L 500.2500, L500.3400, L100.0100 #### [facility] Laboratory [address] [place], [address] ALB Normal 3.4-4.8 [facility] Comment on above: Result Comment: IRENE VELA, SPOKE WITH ED PROOF COIN COLLECTOR TO CANCEL 2ND BMP,LIVER,LIPASE. Performed By: #### L 500.2500, L500.3400, L100.0100 #### [facility] [address] [place], [address] ALK PHOS Normal 35-104 [facility] Comment on above: Result Comment: IRENE VELA, SPOKE WITH ED PROOF COIN COLLECTOR TO CANCEL 2ND BMP,LIVER,LIPASE. Performed By: #### L 500.2500, L500.3400, L100.0100 #### [facility] [address] [place], [address] ALT Normal <=34 [facility] Comment on above: Result Comment: IRENE VELA, SPOKE WITH ED PROOF COIN COLLECTOR TO CANCEL 2ND BMP,LIVER,LIPASE. Performed By: #### L 500.2500, L500.3400, L100.0100 #### [facility] Laboratory [address] [place], [address] AST Normal <=31 [facility] Comment on above: Result Comment: IRENE VELA, SPOKE WITH ED PROOF COIN COLLECTOR TO CANCEL 2ND BMP,LIVER,LIPASE. Performed By: #### L 500.2500, L500.3400, L100.0100 #### [facility] Laboratory [address] [place], [address] D BILI Normal 0.00-0.30 [facility] Comment on above: Result Comment: IRENE VELA, SPOKE WITH ED PROOF COIN COLLECTOR TO CANCEL 2ND BMP,LIVER,LIPASE. Performed By: #### L 500.2500, L500.3400, L100.0100 #### [facility] Laboratory [address] [place], [address] T BILI Normal 0.00-1.30 [facility] Comment on above: Result Comment: IRENE VELA, SPOKE WITH ED PROOF COIN COLLECTOR TO CANCEL 2ND BMP,LIVER,LIPASE. Performed By: #### L 500.2500, L500.3400, L100.0100 #### [facility] Laboratory [address] [place], [address] T PROT Normal 5.9-8.4 [facility] Comment on above: Result Comment: IRENE VELA, SPOKE WITH ED PROOF COIN COLLECTOR TO CANCEL 2ND BMP,LIVER,LIPASE. Performed By: #### L 500.2500, L500.3400, L100.0100 #### [facility] Laboratory [address] [place], [address] MCV (mean corpuscular volume ) determinationOrdered By: Raza Ruiz on 07-31-2024 MCV (RBC) [Entitic vol] 93.9 fL 81-99 [facility] Mean corpuscular hemoglobin (MCH) determinationOrdered By: Rzaa Ruiz on 07-31-2024 MCH (RBC) [Entitic mass] 31.0 pg 27.0-32.0 [facility] Mean corpuscular hemoglobin concentration (MCHC) determinationOrdered By: Raza Ruiz on 07-31-2024 MCHC (RBC) [Mass/Vol] 33.0 g/dL 32-36 [facility] Mean platelet volume determi nationOrdered By: Raza Ruiz on 07-31-2024 Platelet mean volume (Bld) [Entitic vol] 8.5 fL 6.2-12.0 [facility] Microscopic analysis of urin e for red blood cells (RBC)Ordered By: Raza Ruiz on 07-31-2024 Microscopic analysis of urine for red blood cells (RBC) 0-5 SEEN /hpf 0-5 [facility] Monocyte percentageOrdered B y: Raza Ruiz on 07-31-2024 Monocytes/100 WBC (Bld) 6.4 % 0-10 [facility] Mucus LM Ql (Urine sed)Order ed By: Raza Ruiz on 07-31-2024 Mucus Ql (Urine sed) 0 SEEN /hpf [facility] Neutrophil percentageOrdered By: Raza Ruiz on 07-31-2024 Neutrophils/100 WBC (Bld) 70.4 % High 47-70 [facility] Nitrite Test strip Ql (U)Ord ered By: Raza Ruiz on 07-31-2024 Nitrite Ql (U) Negative Negative [facility] Nucleated red blood cell per centageOrdered By: Raza Ruiz on 07-31-2024 Nucleated RBC/100 WBC (Bld) [Ratio] 0 % 0-5 [facility] Platelet countOrdered By: Prashant Ruiz on 07-31-2024 Platelets (Bld) [#/Vol] 267 10*3/uL 150-450 [facility] Potassium measurement (mass/ volume)Ordered By: Raza Ruiz on 07-31-2024 Potassium (Unsp spec) [Mass/Vol] 4.1 mmol/L 3.3-5.1 [facility] Protein Test strip Ql (U)Ord ered By: Raza Ruiz on 07-31-2024 Protein Ql (U) 15 mg/dl High Negative [facility] RBC Auto (Bld) [#/Vol]Ordere d By: Raza Ruiz on 07-31-2024 RBC (Bld) [#/Vol] 4.26 10*6/uL 4.2-5.4 [facility] Serum creatinine measurement (mass/volume)Ordered By: Raza Ruiz on 07-31-2024 Creatinine [Mass/Vol] 1.00 mg/dL 0.70-1.20 [facility] Serum globulin measurementOr dered By: Raza Ruiz on 07-31-2024 Globulin (S) [Mass/Vol] 3.2 g/dL 2.2-4.2 [facility] Serum glucose measurement (m ass/volume)Ordered By: Raza Ruiz on 07-31-2024 Glucose [Mass/Vol] 115 mg/dL High 70-99 [facility] Serum or plasma alanine [place]aca otransferase (ALT) measurementOrdered By: Raza Ruiz on 07-31-2024 ALT [Catalytic activity/Vol] 38 U/L High <35 [facility] Serum or plasma albumin tino urement (mass/volume)Ordered By: Raza Ruiz on 07-31-2024 Albumin [Mass/Vol] 3.8 g/dL 3.4-4.8 [facility] Serum or plasma alkaline coty sphatase measurementOrdered By: Raza Ruiz on 07-31-2024 ALP [Catalytic activity/Vol] 71 U/L 35-104 [facility] Serum or plasma calcium tino urement (mass/volume)Ordered By: Raza Ruiz on 07-31-2024 Calcium [Mass/Vol] 9.4 mg/dL 7.6-11.0 [facility] Serum or plasma urea nitroge n measurement (mass/volume)Ordered By: Raza Ruiz on 07-31-2024 Urea nitrogen [Mass/Vol] 15 mg/dL 4-19 [facility] Sodium levelOrdered By: Rohini Ruiz on 07-31-2024 Sodium [Moles/Vol] 141 mmol/L 133-145 [facility] Squamous epithelial cells de tection in urine sediment by light microscopyOrdered By: Raza Ruiz on 07-31-2024 Epithelial cells.squamous LM Ql (Urine sed) 0-5 SEEN /hpf 5-10 [facility] Total proteinOrdered By: Louise Ruiz on 07-31-2024 Protein [Mass/Vol] 7.0 g/dL 5.9-8.4 [facility] Urinalysis, Completeon 07-31 AMORPHOUS 1+ URATE Normal [facility] Comment on above: Order Comment: CLEAN CATCH Performed By: #### L 400.0001 #### [facility] Laboratory [address] [place], [address] EPI,SQUAMOUS 0-5 SEEN Normal 5-10 [facility] Comment on above: Order Comment: CLEAN CATCH Performed By: #### L 400.0001 #### [facility] Laboratory [address] [place], [address] RBC 0-5 SEEN Normal 0-5 [facility] Comment on above: Order Comment: CLEAN CATCH Performed By: #### L 400.0001 #### [facility] Laboratory [address] [place], [address] WBC 5-10 SEEN Normal 0-5 [facility] Comment on above: Order Comment: CLEAN CATCH Performed By: #### L 400.0001 #### [facility] Laboratory [address] [place], [address] BACTERIA 0 SEEN Normal None Seen [facility] Comment on above: Order Comment: CLEAN CATCH Performed By: #### L 400.0001 #### [facility] Laboratory [address] [place], [address] Mucus Ql (Urine sed) 0 SEEN Normal [facility] Comment on above: Order Comment: CLEAN CATCH Performed By: #### L 400.0001 #### [facility] [address] [place], [address] Urine clarityOrdered By: Louise Ruiz on 07-31-2024 Clarity (U) Sl. Cloudy Clear [facility] Urine color determinationOrd ered By: Raza Ruiz on 07-31-2024 Color (U) Yellow Yellow [facility] Urine glucose detectionOrder ed By: Rzaa Ruiz on 07-31-2024 Glucose Ql (U) Normal mg/dl Normal [facility] Urine leukocyte esterase det ection by dipstickOrdered By: Raza Ruiz on 07-31-2024 Leukocyte esterase Test strip Ql (U) 500 /ul High Negative [facility] Urine pHOrdered By: Raza moreno on 07-31-2024 pH (U) 6.0 [pH] 5.0 - 8.0 [facility] Urine sediment bacteria coun t by microscopy (number/high power field)Ordered By: Raza Ruiz on 07-31-2024 Bacteria LM.HPF (Urine sed) [#/Area] 0 /[HPF] None Seen [facility] Urine specific gravity measu rementOrdered By: Raza Ruiz on 07-31-2024 Specific gravity (U) [Rel density] 1.015 1.002-1.03 0 [facility] Urine urobilinogen measureme ntOrdered By: Raza Ruiz on 07-31-2024 Urobilinogen Ql (U) Normal mg/dl Normal [facility] White blood cell (WBC) count Ordered By: Raza Ruiz on 07-31-2024 WBC (Bld) [#/Vol] 5.4 10*3/uL 4.4-11.0 [facility] White blood cell countOrdere d By: Raza Ruiz on 07-31-2024 White blood cell count 5-10 SEEN /hpf 0-5 [facility] TSH SerPl-aCncon 07-30-2024 TSH Qn 2.330 m[IU]/L Normal 0.270-4.20 0 [facility] Comment on above: Order Comment: Speci men Type: BLOOD SPECIMENOrdering Facility: [facility] Address: [address] [place] [address] Performed By: #### 3 016-3 ####[facility] LABORATORYCLIA [id number] [place] [address] [place] 12 Lead EKGon 07-19-2024 12 Lead EKG [facility] Cardiovascular Services [address] [place] [address] 12 Lead EKG 07/19/247 MR#: [id number] Acct: [id number] Name: TEMITOPE HADDAD Gabriel Rep #: [id number] : 1955 69 From: Peter Garcia MD Attending Dr: Status: DEP ER Ordering Dr: Colin Caba DO Date: 5 Location: ED Sex: F C Admitted: Test Reason : DYSRHYTHMIA Blood Pressure : */* mmHG Vent. Rate : 67 BPM Atrial Rate : 67 BPM P-R Int : 158 ms QRS Dur : 62 ms QT Int : 398 ms P-R-T Axes : 66 34 39 degrees QTcB Int : 420 ms Normal sinus rhythm Cannot rule out Septal infarct (cited on or before 16-Jan-2024) Abnormal ECG Reconfirmed by Peter Garcia ([id number]), senior technical editor ISAAK BHARDWAJ ([id number]) on 07/22/2024 9:58:03 AM Referred By: Confirmed By: Peter Garcia 07/22/24 0958 Date Peter Garcia MD CC: Dr. Colin Caba DO; Dr. Bird Ronquillo MD Signed Normal [facility] Absolute lymphocyte countOrd ered By: Colin Caba on 07-19-2024 Lymphocytes Auto (Unsp spec) [#/Vol] 0.99 10*3/uL 0.83-4.51 [facility] Absolute neutrophil countOrd ered By: Colin Caba on 07-19-2024 Neutrophils (Bld) [#/Vol] 5.3 10*3/uL 2.0-7.7 [facility] Albumin to globulin ratioOrd ered By: Colin Caba on 07-19-2024 Albumin/Globulin [Mass ratio] 0.8 {ratio} Low 0.9-2.4 [facility] Automated lymphocyte count a s percentage of total leukocytesOrdered By: Colin Caba on 07-19-2024 Lymphocytes/100 WBC Auto (Unsp spec) 14.7 % Low 19-41 [facility] Basophil percentageOrdered B y: Colin Caba on 07-19-2024 Basophils/100 WBC (Bld) 0.3 % 0-1 [facility] Bilirubin, totalOrdered By: Colin Caba on 07-19-2024 Bilirubin [Mass/Vol] 0.60 mg/dL 0.20-1.00 [facility] Comment on above: For patients on eltr ombopag therapy, use of Dimension [place] TBIL is not recommended. Blood urea nitrogen (BUN)/cr eatinine ratioOrdered By: Colin Caba on 07-19-2024 Urea nitrogen/Creatinine [Mass ratio] 13.1 mg/mg - [facility] CBC W/Diff, Automatedon 06-30 Absolute Lymph 0.99 X10 3/uL Normal 0.83-4.51 [facility] Comment on above: Performed By: #### L 100.0100, L500.4050, L501.2450 #### [facility] Laboratory [address] [place], [address] Absolute Neut 5.3 X10 3/uL Normal 2.0-7.7 [facility] Comment on above: Performed By: #### L 100.0100, L500.4050, L501.2450 #### [facility] Laboratory [address] [place], [address] Basophils/100 WBC (Bld) 0.3 % Normal 0-1 [facility] Comment on above: Performed By: #### L 100.0100, L500.4050, L501.2450 #### [facility] Laboratory [address] [place], [address] Eosinophils/100 WBC (Bld) 1.8 % Normal 0-5 [facility] Comment on above: Performed By: #### L 100.0100, L500.4050, L501.2450 #### [facility] Laboratory [address] [place], [address] Erythrocyte distribution width (RBC) [Ratio] 13.0 % Normal 11.6-14.6 [facility] Comment on above: Performed By: #### L 100.0100, L500.4050, L501.2450 #### [facility] Laboratory [address] [place], [address] Hematocrit (Bld) [Volume fraction] 42.1 % Normal 37-47 [facility] Comment on above: Performed By: #### L 100.0100, L500.4050, L501.2450 #### [facility] Laboratory [address] [place], [address] Hemoglobin (Bld) [Mass/Vol] 14.0 g/dL Normal 12.0-15.0 [facility] Comment on above: Performed By: #### L 100.0100, L500.4050, L501.2450 #### [facility] [address] [place], [address] IG% 0.400 Normal 0.0-0.9 [facility] Comment on above: Result Comment: IG% - Immature Granulocytes (promyelocytes, myelocytes and metamyelocytes) > 1% indicates that a LEFT SHIFT is Present. Performed By: #### L 100.0100, L500.4050, L501.2450 #### [facility] Laboratory [address] [place], [address] Lymphocytes/100 WBC (Bld) 14.7 % Low 19-41 [facility] Comment on above: Performed By: #### L 100.0100, L500.4050, L501.2450 #### [facility] Laboratory [address] [place], [address] MCH (RBC) [Entitic mass] 30.8 pg Normal 27.0-32.0 [facility] Comment on above: Performed By: #### L 100.0100, L500.4050, L501.2450 #### [facility] Laboratory [address] [place], [address] MCHC (RBC) [Mass/Vol] 33.3 g/dL Normal 32-36 [facility] Comment on above: Performed By: #### L 100.0100, L500.4050, L501.2450 #### [facility] Laboratory [address], [address] MCV (RBC) [Entitic vol] 92.7 fL Normal 81-99 [facility] Comment on above: Performed By: #### L 100.0100, L500.4050, L501.2450 #### [facility] Laboratory [address] [place], [address] Monocytes/100 WBC (Bld) 4.2 % Normal 0-10 [facility] Comment on above: Performed By: #### L 100.0100, L500.4050, L501.2450 #### [facility] Laboratory [address] [place], [address] Neutrophils/100 WBC (Bld) 78.6 % High 47-70 [facility] Comment on above: Performed By: #### L 100.0100, L500.4050, L501.2450 #### [facility] Laboratory [address] [place], [address] Nucleated RBC (Bld) [#/Vol] 0 10*3/uL Normal 0-5 [facility] Comment on above: Performed By: #### L 100.0100, L500.4050, L501.2450 #### [facility] Laboratory [address] [place], [address] Platelet mean volume (Bld) [Entitic vol] 9.2 fL Normal 6.2-12.0 [facility] Comment on above: Performed By: #### L 100.0100, L500.4050, L501.2450 #### [facility] Laboratory [address] [place], [address] Platelets (Bld) [#/Vol] 188 10*3/uL Normal 150-450 [facility] Comment on above: Performed By: #### L 100.0100, L500.4050, L501.2450 #### [facility] Laboratory [address] [place], [address] RBC (Bld) [#/Vol] 4.54 10*6/uL Normal 4.2-5.4 [facility] Comment on above: Performed By: #### L 100.0100, L500.4050, L501.2450 #### [facility] Laboratory [address] [place], [address] RDW SD 44.0 fl High 35.1-43.9 [facility] Comment on above: Performed By: #### L 100.0100, L500.4050, L501.2450 #### [facility] Laboratory [address] [place], [address] WBC (Bld) [#/Vol] 6.7 10*3/uL Normal 4.4-11.0 [facility] Comment on above: Performed By: #### L 100.0100, L500.4050, L501.2450 #### [facility] Laboratory [address] [place], [address] Carbon dioxide measurementOr dered By: Colin Caba on 07-19-2024 CO2 [Moles/Vol] 28.0 mmol/L 21.0-32.0 [facility] Chest 1 View (Portable)on Chest 1 View (Portable) [facility] Imaging Services [address] [place] [address] Chest 1 View (Portable) MR#: [id number] Acct: [id number] Name: TEMITOPE HADDAD Rep #: [id number] : 1955 F 69 From: Mary Car nd, MD PCP: Dr. Bird Ronquillo MD Status: PRE ER Study: Chest 1 View (Portable) Date of Exam: 07/19/24 Exam# [id number] Ordering Dr: Provider,Ed P. PROCEDURE: CHEST 1 VIEW (PORTABLE) REASON FOR EXAM: 69-year-old female, pain, shortness of breath. History of COPD and diagnosed with influenza 1 week ago. TECHNIQUE: Frontal view of the chest. COMPARISON: Chest radiograph 12/2023. FINDINGS: The heart size is normal. Stable findings of emphysema. The lungs are clear. No focal consolidation, pleural effusion or pneumothorax. Degenerative changes are identified within the thoracic spine. RAD/Chest 1 View (Portable) IMPRESSION: COPD. NO ACUTE FINDINGS. Reading Location: [id number] CC: Dr. Bird Ronquillo MD; ED PHYSICIAN PROVIDER [employer]: Signed Normal [facility] Chloride measurementOrdered By: Colin Caba on 07-19-2024 Chloride [Moles/Vol] 104 mmol/L 98-107 [facility] Comprehensive Metabolic Prof ilon 07-19-2024 Albumin [Mass/Vol] 3.5 g/dL Normal 3.2-5.0 [facility] Comment on above: Performed By: #### L 100.0100, L500.4050, L501.2450 #### [facility] Laboratory [address] [place], [address] Albumin/Globulin [Mass ratio] 0.8 {ratio} Low 0.9-2.4 [facility] Comment on above: Performed By: #### L 100.0100, L500.4050, L501.2450 #### [facility] Laboratory [address] [place], [address] ALK P 81 U/L Normal 45-117 [facility] Comment on above: Performed By: #### L 100.0100, L500.4050, L501.2450 #### [facility] Laboratory [address] [place], [address] ALT [Catalytic activity/Vol] 37 U/L Normal 13-56 [facility] Comment on above: Performed By: #### L 100.0100, L500.4050, L501.2450 #### [facility] Laboratory [address] [place], [address] AST [Catalytic activity/Vol] 25 U/L Normal 15-37 [facility] Comment on above: Performed By: #### L 100.0100, L500.4050, L501.2450 #### [facility] Laboratory [address] [place], [address] Bilirubin [Mass/Vol] 0.60 mg/dL Normal 0.20-1.00 [facility] Comment on above: Result Comment: For patients on eltrombopag therapy, use of Dimension [place] TBIL is not recommended. Performed By: #### L 100.0100, L500.4050, L501.2450 #### [facility] Laboratory [address] [place], [address] BUN/CRE 13.1 RATIO Normal 10-20 [facility] Comment on above: Performed By: #### L 100.0100, L500.4050, L501.2450 #### [facility] Laboratory [address] [place], [address] CA,Total 9.4 mg/dL Normal 8.5-10.1 [facility] Comment on above: Performed By: #### L 100.0100, L500.4050, L501.2450 #### [facility] Laboratory [address] [place], [address] Chloride [Moles/Vol] 104 mmol/L Normal 98-107 [facility] Comment on above: Performed By: #### L 100.0100, L500.4050, L501.2450 #### [facility] Laboratory [address] [place], [address] CO2 [Moles/Vol] 28.0 mmol/L Normal 21.0-32.0 [facility] Comment on above: Performed By: #### L 100.0100, L500.4050, L501.2450 #### [facility] Laboratory [address] [place], [address] Creatinine [Mass/Vol] 0.99 mg/dL Normal 0.55-1.02 [facility] Comment on above: Result Comment: The validity of the calculated GFR GFRAA in patients over 70 years has not been determined. Clinical correlation is essential. Performed By: #### L 100.0100, L500.4050, L501.2450 #### [facility] [address] [place], [address] EST GFR - AA 72 mL/min Normal >60 [facility] Comment on above: Result Comment: Afri can Swazi GFR Calc Performed By: #### L 100.0100, L500.4050, L501.2450 #### [facility] Laboratory [address] [place], [address] GAP 7 Normal 5-15 [facility] Comment on above: Performed By: #### L 100.0100, L500.4050, L501.2450 #### [facility] Laboratory [address] [place], [address] GFR/1.73 sq M.predicted among non-blacks MDRD (S/P/Bld) [Vol rate/Area] 60 mL/min/{1.73_m2} Normal >60 [facility] Comment on above: Result Comment: Non- GFR Calc Performed By: #### L 100.0100, L500.4050, L501.2450 #### [facility] Laboratory [address] [place], [address] Globulin (S) [Mass/Vol] 4.2 g/dL Normal 2.2-4.2 [facility] Comment on above: Performed By: #### L 100.0100, L500.4050, L501.2450 #### [facility] Laboratory [address] [place], [address] Glucose [Mass/Vol] 100 mg/dL Normal 74-106 [facility] Comment on above: Result Comment: Fast ing Glucose result from 100 to 125 mg/dL suggests IMPAIRED HOMEOSTASIS per A.D.A. criteria. Performed By: #### L 100.0100, L500.4050, L501.2450 #### [facility] Laboratory [address] [place], [address] Potassium [Moles/Vol] 3.6 mmol/L Normal 3.5-5.1 [facility] Comment on above: Performed By: #### L 100.0100, L500.4050, L501.2450 #### [facility] Laboratory [address] [place], [address] Sodium [Moles/Vol] 139 mmol/L Normal 136-145 [facility] Comment on above: Performed By: #### L 100.0100, L500.4050, L501.2450 #### [facility] Laboratory [address] [place], [address] T PROT 7.7 g/dL Normal 6.4-8.2 [facility] Comment on above: Performed By: #### L 100.0100, L500.4050, L501.2450 #### [facility] Laboratory [address] [place], [address] Urea nitrogen [Mass/Vol] 13 mg/dL Normal 7-18 [facility] Comment on above: Performed By: #### L 100.0100, L500.4050, L501.2450 #### [facility] [address] [place], [address] Emergency Department Summary on 07-19-2024 Emergency Department Summary [facility] Department [address] [place] [address] Emergency Department Summary 07/19/24 MR#: [id number] Acct: [id number] Name: TEMITOPE HADDAD Gabriel Rep #: [id number] : 1955 69 From: Colin Caba DO PCP: Dr. Bird Ronquillo MD Status:DEP ER Location: ED HPI History of Present Illness Chief Complaint: Chest Other Narrative Narrative: Chief complaint and HPI: Right upper quadrant abdominal pain. 69-year-old female with past medical history of COPD on baseline 2 L nasal cannula, HLD, hypothyroidism, HTN presents for evaluation of right upper quadrant abdominal pain. Patient states that she was diagnosed with influenza recently. She states her symptoms have since resolved such as fever, cough, URI symptoms. Patient states that this evening around 6 PM she developed right upper quadrant abdominal pain while standing. She denies any frequent coughing. Denies any trauma or injury. She denies any history of cholelithiasis. States she has a family history of gallbladder disease. Denies any fever, chills, shortness of breath, chest pain, nausea, vomiting, dysuria, diarrhea, constipation. Has not taken anything for the pain. Per triage note, it states that the patient is having right rib pain however she states it is her right upper abdomen and that is where she points as well. Review of systems: See HPI Medications: As listed on the chart Allergies: As listed on the chart PFSH: Per chart Vital signs: As listed on the chart. Reviewed. Physical exam: Gen: A O x3, NAD Head: Normocephalic, atraumatic Eyes: No sclera icterus, conjunctiva clear ENT: Moist mucous membranes Neck: Trachea midline, No JVD CV: RRR, no murmurs, no peripheral edema, chest wall nontender to palpation Resp: Lungs CTA BL, no w/r/c, On baseline 2 L nasal cannula GI: Abd soft, non-distended, mildly tender to palpation in the right upper quadrant, no r/r/g, negative Gutierrez sign Musc: Full ROM, no deformity Skin: Warm, dry Neuro: Alert, oriented, grossly intact, sensation intact Psych: Cooperative, appropriate mood and affect [facility] Medical History Osteoporosis Kidney stones Kidney disease GERD (gastroesophageal reflux disease) Myocardial infarct Internal impingement of right shoulder Hypothyroidism Abnormal Holter monitor finding Sinus pause Mixed hyperlipidemia Atherosclerotic heart disease of [place] coronary artery without angina pectoris Essential hypertension Traumatic avulsion of nail plate of toe Thigh pain History of IBS Wears glasses Wears dentures Depression Anxiety Skin tear Bruising Thyroid disease Ambulates with cane History of renal disease Arthritis High cholesterol Easy bruising Restless legs Difficulty swallowing Difficulty chewing History of hiatal hernia Gastric reflux Former smoker Shortness of breath on exertion Stroke/cerebrovascular accident History of echocardiogram History of stress test History of heart attack History of irregular heartbeat Acute seasonal allergic rhinitis Acute serous otitis media Acute dysfunction of both eustachian tubes Fuchs' corneal dystrophy HTN (hypertension) COPD (chronic obstructive pulmonary disease) Bronchitis Constipation Abdominal pain Chest pain CAD (coronary artery disease) Hypoxia Diaphragm paralysis History of cerebrovascular disease History of CVA (cerebrovascular accident) Anxiety disorder Home Medications ???Medication ???Instructions ???Recorded ???Last Taken ???Type levothyroxine 50 mcg tablet 50 mcg PO DAILY THYROID 08/17/21 0 06/07/22 History clopidogrel 75 mg tablet 75 mg PO DAILY BLOOD THINNER 30 07/13/22 Rx days #30 tabs atorvastatin 40 mg tablet 40 mg PO DAILY 07/01/22 Unknown Hi story losartan 25 mg tablet 25 mg PO DAILY #90 tabs 09/29/22 U nknown Rx alendronate 70 mg tablet 70 mg PO Q7D 08/14/23 Unknown Hist ory cholecalciferol (vitamin D3) 125 125 mcg PO DAILY 08/14/23 Unknown History mcg (5,000 unit) tablet citalopram 10 mg tablet 10 mg PO DAILY 08/14/23 Unknown Hi story meclizine 25 mg chewable tablet 25 mg PO TID PRN dizziness #30 tab s 08/14/23 Unknown Rx montelukast 10 mg tablet 10 mg PO DAILY 12/01/23 Unknown Hi story levocetirizine 5 mg tablet 5 mg PO DAILY ALLERGIES #90 tabs 0 01/01/24 Unknown Rx (Allergy Relief (levocetirizine)) albuterol sulfate 90 mcg/actuation 2 puff inhalation Q6H PRN Unknown Rx aerosol inhaler Shortness Of Breath #3 ea multivitamin (One Daily 1 tab PO DAILY 01/16/24 Unknown Hi story Multivitamin tablet) ciprofloxacin HCl 500 mg tablet 500 mg PO BID #20 TABLETS 02/12/24 Unknown Rx metronidazole 500 mg tablet 500 mg PO Q8H #30 tabs 02/12/24 Un known Rx oxycodone-acetaminophen 5 (more content not included)... Normal [facility] Eosinophil percentageOrdered By: Colin Caba on 07-19-2024 Eosinophils/100 WBC (Bld) 1.8 % 0-5 [facility] Erythrocyte distribution wid th ratioOrdered By: Colin Caba on 07-19-2024 Erythrocyte distribution width (RBC) [Ratio] 13.0 % 11.6-14.6 [facility] Erythrocyte distribution wid th standard deviationOrdered By: Colin Pickering on 07-19-2024 Erythrocyte distribution width (RBC) [Ratio] 44.0 fl High 35.1-43.9 [facility] Gallbladderon 07-19-2024 Gallbladder [facility] Imaging Services [address] [place] [address] Gallbladder MR#: [id number] Acct: [id number] Name: TEMITOPE HADDAD Rep #: [id number] : 1955 F 69 From: Mary Car nd, MD PCP: Dr. Bird Ronquillo MD Status: REG ER Study: Gallbladder Date of Exam: 07/19/24 Exam# [id number] Ordering Dr: Colin Caba DO PROCEDURE: GALLBLADDER REASON FOR EXAM: 69-year-old female, right sided rib pain. COMPARISON: CT abdomen pelvis 02/11/2024. FINDINGS: Visualization is limited by patient condition. Liver: Grossly normal size and echotexture. No suspicious hepatic mass. Gallbladder: No stones, sludge, wall thickening or tenderness. Common bile duct: Normal measuring 3 mm. Pancreas: Visualized portions are sonographically unremarkable. Visualized portions of the right kidney are unremarkable. No right upper quadrant ascites. US/Gallbladder IMPRESSION: NORMAL RIGHT UPPER QUADRANT ULTRASOUND. Reading Location: [facility] CC: Dr. Colin Caba DO; Dr. Bird Ronquillo MD [employer]: Signed Normal [facility] Glomerular filtration rate ( GFR) estimationOrdered By: Colin Caba on 07-19-2024 GFR/1.73 sq M.predicted among non-blacks MDRD (S/P/Bld) [Vol rate/Area] 60 mL/min/{1.73_m2} >60 [facility] Comment on above: Non- GFR Calc Glucose measurementOrdered B y: Colin Caba on 07-19-2024 Glucose [Mass/Vol] 100 mg/dL 74-106 [facility] Comment on above: Fasting Glucose resu lt from 100 to 125 mg/dL suggests IMPAIRED HOMEOSTASIS per A.D.A. criteria. Hematocrit Auto (Bld) [Volum e fraction]Ordered By: Colin Caba on 07-19-2024 Hematocrit (Bld) [Volume fraction] 42.1 % 37-47 [facility] Hemoglobin measurementOrdere d By: Colin Caba on 07-19-2024 Hemoglobin (Bld) [Mass/Vol] 14.0 g/dL 12.0-15.0 [facility] Immature granulocytes/100 WB C Auto (Bld)Ordered By: Colin Caba on 07-19-2024 Immature granulocytes/100 WBC (Bld) 0.400 % 0.0-0.9 [facility] Comment on above: IG% - Immature Granu locytes (promyelocytes, myelocytes and metamyelocytes) > 1% indicates that a LEFT SHIFT is Present. Laboratory - Chemistry and C hemistry - challengeOrdered By: Colin Caba on 07-19-2024 AST [Catalytic activity/Vol] 25 U/L 15-37 [facility] Lipaseon 07-19-2024 Lipase [Catalytic activity/Vol] 15 U/L Low 73-393 [facility] Comment on above: Performed By: #### L 100.0100, L500.4050, L501.2450 #### [facility] Laboratory [facility] [place] [address], [address] Lipase measurementOrdered By : Colin Caba on 07-19-2024 Lipase [Catalytic activity/Vol] 15 U/L Low 73-393 [facility] MCV (mean corpuscular volume ) determinationOrdered By: Colin Caba on 07-19-2024 MCV (RBC) [Entitic vol] 92.7 fL 81-99 [facility] Mean corpuscular hemoglobin (MCH) determinationOrdered By: Colin Caba on 07-19-2024 MCH (RBC) [Entitic mass] 30.8 pg 27.0-32.0 [facility] Mean corpuscular hemoglobin concentration (MCHC) determinationOrdered By: Colin Caba on 07-19-2024 MCHC (RBC) [Mass/Vol] 33.3 g/dL 32-36 [facility] Mean platelet volume determi nationOrdered By: Colin Caba on 07-19-2024 Platelet mean volume (Bld) [Entitic vol] 9.2 fL 6.2-12.0 [facility] Monocyte percentageOrdered B y: Colin Caba on 07-19-2024 Monocytes/100 WBC (Bld) 4.2 % 0-10 [facility] Neutrophil percentageOrdered By: Colin Caba on 07-19-2024 Neutrophils/100 WBC (Bld) 78.6 % High 47-70 [facility] Nucleated red blood cell per centageOrdered By: Colin Caba on 07-19-2024 Nucleated RBC/100 WBC (Bld) [Ratio] 0 % 0-5 [facility] Platelet countOrdered By: Vickie Caba on 07-19-2024 Platelets (Bld) [#/Vol] 188 10*3/uL 150-450 [facility] Potassium measurementOrdered By: Colin Caba on 07-19-2024 Potassium [Moles/Vol] 3.6 mmol/L 3.5-5.1 [facility] RBC Auto (Bld) [#/Vol]Ordere d By: Colin Caba on 07-19-2024 RBC (Bld) [#/Vol] 4.54 10*6/uL 4.2-5.4 [facility] Serum anion gap measurementO rdered By: Colin Caba on 07-19-2024 Anion gap [Moles/Vol] 7 mmol/L 5-15 [facility] Serum globulin measurementOr dered By: Colin Caba on 07-19-2024 Globulin (S) [Mass/Vol] 4.2 g/dL 2.2-4.2 [facility] Serum or plasma alanine [place] otransferase (ALT) measurementOrdered By: Colin Caba on 07-19-2024 ALT [Catalytic activity/Vol] 37 U/L 13-56 [facility] Serum or plasma albumin tino urement (mass/volume)Ordered By: Colin Pickering on 07-19-2024 Albumin [Mass/Vol] 3.5 g/dL 3.2-5.0 [facility] Serum or plasma alkaline coty sphatase measurementOrdered By: Colin Caba on 07-19-2024 ALP [Catalytic activity/Vol] 81 U/L 45-117 [facility] Serum or plasma calcium tino urement (mass/volume)Ordered By: Colin Pickering on 07-19-2024 Calcium [Mass/Vol] 9.4 mg/dL 8.5-10.1 [facility] Serum or plasma creatinine m easurement (mass/volume)Ordered By: Colin Pickering on 07-19-2024 Creatinine [Mass/Vol] 0.99 mg/dL 0.55-1.02 [facility] Comment on above: The validity of the calculated GFR & GFRAA in patients over 70 years has not been determined. Clinical correlation is essential. Serum or plasma urea nitroge n measurement (mass/volume)Ordered By: Colin Caba on 07-19-2024 Urea nitrogen [Mass/Vol] 13 mg/dL 7-18 [facility] Sodium levelOrdered By: Noble Caba on 07-19-2024 Sodium [Moles/Vol] 139 mmol/L 136-145 [facility] Total proteinOrdered By: Clem Caba on 07-19-2024 Protein [Mass/Vol] 7.7 g/dL 6.4-8.2 [facility] White blood cell (WBC) count Ordered By: Colin Caba on 07-19-2024 WBC (Bld) [#/Vol] 6.7 10*3/uL 4.4-11.0 [facility] CNOVon 07-11-2024 CNOV Office Visit (FAMPWS ) TEMITOPE HADDAD ([id number]) 1955 F T Date Time Provider Department 07/11/24 11:20 AM MORAIMA SOLANO FAMPWS During your visit today, we recorded the following information about you: Temperature Pulse Respiration Blood pressure 100.7 degrees 80/minute 16/minute 119/71 Moraima Solano, IN HOME SALES CONSULTANT.MESSENGER COPY 07/11/2024 12:25 PM Signed Chief Complaint Patient presents with: congestion, runny [...] (moderate) (HCC) COPD (chronic obstructive pulmonary disease) ([facility]) Dr. Wallace Depression Dysuria Generalized anxiety disorder [...] by mouth one time a week. Take (more content not included)... Normal [facility] CNTHERAPYon 07-02-2024 CNTHERAPY OT/PT/Speech Visit ( PTWS) TEMITOPE HADDAD ([id number]) 1955 F [facility] Date Time Provider Department 07/02/24 3:00 PM YAMILE CORDERO PTPIERRE Date Time Provider Department [place] 07/02/2024 3:00 PM [id number]-EYAMILE CORDERO PTPIERRE [place] Reason for Visit: PT Discharge [752] Primary Visit Diagnosis:Falls frequently [R29.6] Other Visit Diagnoses:Knee gives out, right [M25.361] Abnormality of gait [R26.9] Right leg weakness [R29.898] Allergies As of Date: 07/02/2024 Noted Allergy Reaction FISH 07/10/2012 7 - Swelling 12 - Shortness of Breath MORPHINE 10/11/2011 1 - Mental Status Change 14 - Other: See Comments VICODIN (HYDROCODONE-ACETAMINOPHE* 11 - Vomiting AGGRENOX (ASPIRIN-DIPYRIDAMOLE) 01/31/2023 14 - Other: See Comments Comments: Headache HYDROCODONE BITARTRATE 04/24/2019 14 - Other: See Comments Date Reviewed: 05/20/2024 Reviewed by: Talita Preston LPN - Fully Assessed Prescriptions as of 07/02/2024 - citalopram hydrobromide (CELEXA) 10 mg tablet Take 1 tablet by mouth once daily. - cholecalciferol (VITAMIN D3) 5,000 unit tab Take 1 tablet by mouth once daily. - pantoprazole DR (PROTONIX) 40 mg tablet Take 1 tablet by mouth once daily. 30 minutes before eating. - levothyroxine (SYNTHROID) 75 mcg tablet Take 1 tablet by mouth once daily. - clopidogrel (PLAVIX) 75 mg tablet Take 1 tablet by mouth once daily. - montelukast (SINGULAIR) 10 mg tablet Take 1 tablet by mouth daily at bedtime. - losartan (COZAAR) 25 mg tablet Take 1 tablet by mouth once daily. - TRELEGY ELLIPTA 200-62.5-25 mcg inhalation powder Inhale 1 Puff as instructed once daily. - atorvastatin (LIPITOR) 40 mg tablet Take 1 tablet by mouth daily at bedtime. For cholesterol. - alendronate (FOSAMAX) 70 mg tablet Take [...] as needed for shortness of breath - levocetirizine 5 mg tablet Take 5 mg by mouth once daily. Meds Comments as of 11/07/2022: [employer]: Therapy (PT/OT/Speech/Resp) ID: [id number] 07/02/2024 2:36 PM Author: YAMILE CORDERO Signed by YAMILE CORDERO PT on 07/02/2024 at 2:36 PM Document text: Program_ID:[id number] Access Code: [email or web address] URL: [email or web address] Date: 07-02-2024 Prepared By: Robin Gaffney Program Notes Exercises - Gastroc Stretch [...] weekly - 2 sets - 15 reps Normal [facility] THERAPY NTon 07-02-2024 THERAPY NT HNO ID: [id number] Author: YAMILE CORDERO PT Service: ? Author Type: Physical Therapist Type: Therapy (PT/OT/Speech/Resp) Filed: 07/02/2024 14:36 Note Text: Program_ID:[id number] Access Code: [email or web address] URL: [email or web address] Date: 07-02-2024 Prepared By: Robin Gaffney Program Notes Exercises - Gastroc Stretch [...] weekly - 2 sets - 15 reps Normal [facility] CNTHERAPYon 2024 CNTHERAPY OT/PT/Speech Visit ( PTWS) TEMITOPE HADDAD ([id number]) 1955 F CHT Date Time Provider Department 06/25/24 3:00 PM YAMILE CORDERO PTPIERRE Date Time Provider Department [place] 2024 3:00 PM [id number] CORDERO PTPIERRE [place] Reason for Visit: Physical Therapy [503] Primary Visit Diagnosis:Falls frequently [R29.6] Other Visit Diagnoses:Knee gives out, right [M25.361] Abnormality of gait [R26.9] Right leg weakness [R29.898] Allergies As of Date: 2024 Noted Allergy Reaction FISH 07/10/2012 7 - Swelling 12 - Shortness of Breath MORPHINE 10/11/2011 1 - Mental Status Change 14 - Other: See Comments VICODIN (HYDROCODONE-ACETAMINOPHE* 11 - Vomiting AGGRENOX (ASPIRIN-DIPYRIDAMOLE) 01/31/2023 14 - Other: See Comments Comments: Headache HYDROCODONE BITARTRATE 04/24/2019 14 - Other: See Comments Date Reviewed: 05/20/2024 Reviewed by: Talita Preston LPN - Fully Assessed Prescriptions as of 2024 - citalopram hydrobromide (CELEXA) 10 mg tablet Take 1 tablet by mouth once daily. - cholecalciferol (VITAMIN D3) 5,000 unit tab Take 1 tablet by mouth once daily. - pantoprazole DR (PROTONIX) 40 mg tablet Take 1 tablet by mouth once daily. 30 minutes before eating. - levothyroxine (SYNTHROID) 75 mcg tablet Take 1 tablet by mouth once daily. - clopidogrel (PLAVIX) 75 mg tablet Take 1 tablet by mouth once daily. - montelukast (SINGULAIR) 10 mg tablet Take 1 tablet by mouth daily at bedtime. - losartan (COZAAR) 25 mg tablet Take 1 tablet by mouth once daily. - TRELEGY ELLIPTA 200-62.5-25 mcg inhalation powder Inhale 1 Puff as instructed once daily. - atorvastatin (LIPITOR) 40 mg tablet Take 1 tablet by mouth daily at bedtime. For cholesterol. - alendronate (FOSAMAX) 70 mg tablet Take [...] as needed for shortness of breath - levocetirizine 5 mg tablet Take 5 mg by mouth once daily. Meds Comments as of 11/07/2022: Mounter Automatic: Therapy (PT/OT/Speech/Resp) ID: [id number] 2024 3:17 PM Author: YAMILE CORDERO Signed by YAMILE CORDERO PT on 2024 at 3:17 PM Document text: Program_ID:[id number] Access Code: [email or web address] URL: [email or web address] Date: 2024 Prepared By: Robin Gaffney Program Notes Exercises - Gastroc Stretch [...] weekly - 2 sets - 15 reps Normal [facility] THERAPY NTon 2024 THERAPY NT HNO ID: [id number] Author: YAMILE CORDERO PT Service: ? Author Type: Physical Therapist Type: Therapy (PT/OT/Speech/Resp) Filed: 2024 15:17 Note Text: Program_ID:[id number] Access Code: [email or web address] URL: [email or web address] Date: 2024 Prepared By: Robin Gaffney Program Notes Exercises - Gastroc Stretch [...] weekly - 2 sets - 15 reps Normal [facility] CNTHERAPYon 06-18-2024 CNTHERAPY OT/PT/Speech Visit ( PTWS) TEMITOPE HADDAD ([id number]) 1955 F T Date Time Provider Department 06/18/24 3:00 PM YAMILE CORDERO PTWS Date Time Provider Department Center 06/18/2024 3:00 PM [id number] CORDERO PTWS Domingo Duggan Reason for Visit: Physical Therapy [503] Primary Visit Diagnosis:Falls frequently [R29.6] Other Visit Diagnoses:Knee gives out, right [M25.361] Abnormality of gait [R26.9] Right leg weakness [R29.898] Allergies As of Date: 06/18/2024 Noted Allergy Reaction FISH 07/10/2012 7 - Swelling 12 - Shortness of Breath MORPHINE 10/11/2011 1 - Mental Status Change 14 - Other: See Comments VICODIN (HYDROCODONE-ACETAMINOPHE* 11 - Vomiting AGGRENOX (ASPIRIN-DIPYRIDAMOLE) 01/31/2023 14 - Other: See Comments Comments: Headache HYDROCODONE BITARTRATE 04/24/2019 14 - Other: See Comments Date Reviewed: 05/20/2024 Reviewed by: Talita Preston LPN - Fully Assessed Prescriptions as of 06/18/2024 - citalopram hydrobromide (CELEXA) 10 mg tablet Take 1 tablet by mouth once daily. - cholecalciferol (VITAMIN D3) 5,000 unit tab Take 1 tablet by mouth once daily. - pantoprazole DR (PROTONIX) 40 mg tablet Take 1 tablet by mouth once daily. 30 minutes before eating. - levothyroxine (SYNTHROID) 75 mcg tablet Take 1 tablet by mouth once daily. - clopidogrel (PLAVIX) 75 mg tablet Take 1 tablet by mouth once daily. - montelukast (SINGULAIR) 10 mg tablet Take 1 tablet by mouth daily at bedtime. - losartan (COZAAR) 25 mg tablet Take 1 tablet by mouth once daily. - TRELEGY ELLIPTA 200-62.5-25 mcg inhalation powder Inhale 1 Puff as instructed once daily. - atorvastatin (LIPITOR) 40 mg tablet Take 1 tablet by mouth daily at bedtime. For cholesterol. - alendronate (FOSAMAX) 70 mg tablet Take [...] as needed for shortness of breath - levocetirizine 5 mg tablet Take 5 mg by mouth once daily. Meds Comments as of 11/07/2022: Mounter Automatic: Addendum Therapy (PT/OT/Speech/Resp) ID: [id number] 06/18/2024 2:59 PM Author: YAMILE CORDERO Signed by YAMILE CORDERO PT on 06/18/2024 at 2:59 PM * * * This document replaces document [id number] * * * Document text: Program_ID:[id number] Access Code: [email or web address] URL: [email or web address] Date: 06-18-2024 Prepared By: Robin Gaffney Program Notes Exercises - Gastroc Stretch on Wall - 2 x daily - 7 x weekly - 1 sets - 3 reps - Seated Hamstring Stretch - 2 x daily - 7 x weekly - 1 sets - 3 reps - Supine Knee Extension Strengthening - 2 x daily - 7 x weekly - 3 sets - 8 reps Normal [facility] THERAPY NTon 06-18-2024 THERAPY NT HNO ID: [id number] Author: YAMILE CORDERO PT Service: ? Author Type: Physical Therapist Type: Therapy (PT/OT/Speech/Resp) Filed: 06/18/2024 15:15 Note Text: Program_ID:[id number] Access Code: [email or web address] URL: [email or web address] Date: 06-18-2024 Prepared By: Robin Gaffney Program Notes Exercises - Gastroc Stretch on Wall - 2 x daily - 7 x weekly - 1 sets - 3 reps - Seated Hamstring Stretch - 2 x daily - 7 x weekly - 1 sets - 3 reps - Supine Knee Extension Strengthening - 2 x daily - 7 x weekly - 3 sets - 8 reps Normal [facility] CNTHERAPYon 06-11-2024 CNTHERAPY OT/PT/Speech Visit ( PTWS) TEMITOPE HADDAD ([id number]) 1955 F CHT Date Time Provider Department 06/11/24 3:00 PM YAMILE CORDERO PTWS Date Time Provider Department Center 06/11/2024 3:00 PM [id number] CORDERO PTWS Dom[place] D[place] Reason for Visit: Physical Therapy [503] Primary Visit Diagnosis:Falls frequently [R29.6] Other Visit Diagnoses:Knee gives out, right [M25.361] Abnormality of gait [R26.9] Right leg weakness [R29.898] Allergies As of Date: 06/11/2024 Noted Allergy Reaction FISH 07/10/2012 7 - Swelling 12 - Shortness of Breath MORPHINE 10/11/2011 1 - Mental Status Change 14 - Other: See Comments VICODIN (HYDROCODONE-ACETAMINOPHE* 11 - Vomiting AGGRENOX (ASPIRIN-DIPYRIDAMOLE) 01/31/2023 14 - Other: See Comments Comments: Headache HYDROCODONE BITARTRATE 04/24/2019 14 - Other: See Comments Date Reviewed: 05/20/2024 Reviewed by: Talita Preston LPN - Fully Assessed Prescriptions as of 06/11/2024 - citalopram hydrobromide (CELEXA) 10 mg tablet Take 1 tablet by mouth once daily. - cholecalciferol (VITAMIN D3) 5,000 unit tab Take 1 tablet by mouth once daily. - pantoprazole DR (PROTONIX) 40 mg tablet Take 1 tablet by mouth once daily. 30 minutes before eating. - levothyroxine (SYNTHROID) 75 mcg tablet Take 1 tablet by mouth once daily. - clopidogrel (PLAVIX) 75 mg tablet Take 1 tablet by mouth once daily. - montelukast (SINGULAIR) 10 mg tablet Take 1 tablet by mouth daily at bedtime. - losartan (COZAAR) 25 mg tablet Take 1 tablet by mouth once daily. - TRELEGY ELLIPTA 200-62.5-25 mcg inhalation powder Inhale 1 Puff as instructed once daily. - atorvastatin (LIPITOR) 40 mg tablet Take 1 tablet by mouth daily at bedtime. For cholesterol. - alendronate (FOSAMAX) 70 mg tablet Take [...] as needed for shortness of breath - levocetirizine 5 mg tablet Take 5 mg by mouth once daily. Meds Comments as of 11/07/2022: Normal [facility] CNTHERAPYon 06-05-2024 CNTHERAPY OT/PT/Speech Visit ( PTWS) TEMITOPE HADDAD ([id number]) 1955 F CHT Date Time Provider Department 06/05/24 3:00 PM YAMILE CORDERO PTWS Date Time Provider Department [place] 06/05/2024 3:00 PM [id number] CORDERO [place] Reason for Visit: PT Re-eval [891] Primary Visit Diagnosis:Falls frequently [R29.6] Other Visit Diagnoses:Knee gives out, right [M25.361] Abnormality of gait [R26.9] Right leg weakness [R29.898] Allergies As of Date: 06/05/2024 Noted Allergy Reaction FISH 07/10/2012 7 - Swelling 12 - Shortness of Breath MORPHINE 10/11/2011 1 - Mental Status Change 14 - Other: See Comments VICODIN (HYDROCODONE-ACETAMINOPHE* 11 - Vomiting AGGRENOX (ASPIRIN-DIPYRIDAMOLE) 01/31/2023 14 - Other: See Comments Comments: Headache HYDROCODONE BITARTRATE 04/24/2019 14 - Other: See Comments Date Reviewed: 05/20/2024 Reviewed by: Talita Preston LPN - Fully Assessed Prescriptions as of 06/05/2024 - pantoprazole DR (PROTONIX) 40 mg tablet Take 1 tablet by mouth once daily. 30 minutes before eating. - levothyroxine (SYNTHROID) 75 mcg tablet Take 1 tablet by mouth once daily. - clopidogrel (PLAVIX) 75 mg tablet Take 1 tablet by mouth once daily. - montelukast (SINGULAIR) 10 mg tablet Take 1 tablet by mouth daily at bedtime. - losartan (COZAAR) 25 mg tablet Take 1 tablet by mouth once daily. - TRELEGY ELLIPTA 200-62.5-25 mcg inhalation powder [...] as needed for shortness of breath - levocetirizine 5 mg tablet Take 5 mg by mouth once daily. Meds Comments as of 11/07/2022: Mounter Automatic: Addendum Therapy (PT/OT/Speech/Resp) ID: [id number] 06/05/2024 3:13 PM Author: YAMILE CORDERO Signed by YAMILE CORDERO PT on 06/05/2024 at 3:13 PM * * * This document replaces document [id number] * * * Document text: Program_ID:[id number] Access Code: [email or web address] URL: [email or web address] Date: 06-05-2024 Prepared By: Robin Gaffney Program Notes Exercises - Gastroc Stretch on Wall - 2 x daily - 7 x weekly - 1 sets - 3 reps - Seated Hamstring Stretch - 2 x daily - 7 x weekly - 1 sets - 3 reps - Supine Knee Extension Strengthening - 2 x daily - 7 x weekly - 3 sets - 8 reps Normal [facility] THERAPY NTon 06-05-2024 THERAPY NT HNO ID: [id number] Author: YAMILE CORDERO PT Service: ? Author Type: Physical Therapist Type: Therapy (PT/OT/Speech/Resp) Filed: 06/05/2024 15:13 Note Text: Program_ID:[id number] Access Code: [email or web address] URL: [email or web address] Date: 06-05-2024 Prepared By: Robin Gaffney Program Notes Exercises - Gastroc Stretch on Wall - 2 x daily - 7 x weekly - 1 sets - 3 reps - Seated Hamstring Stretch - 2 x daily - 7 x weekly - 1 sets - 3 reps - Supine Knee Extension Strengthening - 2 x daily - 7 x weekly - 3 sets - 8 reps Normal [facility] CNOVon 05-20-2024 CNOV Office Visit (FAMPWS ) HADDADTMEITOPE TADEO ([id number]) 1955 [facility] Date Time Provider Department 05/20/24 12:20 PM TATIANA RONQUILLO FAMPWS During your visit today, we recorded the following information about you: Pulse Respiration Blood pressure Weight 65/minute 16/minute 128/72 79.2 kg Tatiana Ronquillo MD 05/20/2024 12:46 PM Signed Chief Complaint Patient presents with: Follow Up: [...] Chronic kidney disease (CKD), stage III (moderate) ([facility]) COPD (chronic obstructive pulmonary disease) ([facility]) Dr. Wallace Depression Dysuria Generalized anxiety disorder [...] atorvastatin (LIPITOR) 40 mg tablet Take 1 table (more content not included)... Normal [facility] [id number] 05-16-2024 [id number] O ID: [id number] Author: ROBIN GAFFNEY PT, DPT Service: ? Author Type: Physical Therapist Type: [id number] Filed: 05/16/2024 16:16 Note Text: [facility] Physical Therapy Plan of Care Certification Patient Name: Temitope Haddad : 1955 [facility] #: [id number] Date: 05/16/2024 To: Tatiana Ronquillo,* From Therapist: Robin Gaffney PT, DPT RE: Patient Certification/ Recertification Your review, approval and electronic signature are required in order to comply with Payor: [facility] MEDICARE / Plan: [facility] DUAL COMPLETE HMO POS SNP / Product Type: Medicare / regulations. The identified Physical Therapy PLAN OF CARE for the patient is as follows: R26.9 Abnormality of gait (primary encounter diagnosis) R29.6 Falls frequently M25.361 Knee gives out, right M62.89 Muscle stiffness M25.561, G89.29 Chronic pain of right knee R29.898 Right leg weakness PLAN OF CARE: Assessment: Temitope Haddad presents [...] of impairments . Patient transfer care to [place] for the following reasons: Closer to home as does not appear to have neuro needs. The patient will benefit from skilled therapy services to meet the goals established for this plan of care as noted below. Goals for Episode of Care: established 05/16/24 [place] in home exercise program. Patient will decrease [...] in functional lower extremity strength. Patient Goals: "Get my knee to work". Time Frame for Goals and Treatment : 07/15/24 Planned Interventions, Frequency, and Duration: Current Frequency: 1x/week Duration: 8 weeks Total Number of Visits Planned: 8 Planned Treatment Interventions: Therapeutic exercise (81884), Neuromuscular re-education (63165), Manual therapy (14057), Therapeutic activities (93392), Self-senior care management (98068), Gait Training (63042), Patient/Family/Caregiver Education PLAN FOR NEXT VISIT: Transfer of care [place]. R LE strengthening and flexibility Patient demonstrates good understanding of plan of care and treatment. The above goals and plan of care were discussed and agreed upon by patient/family. For further details regarding this patient refer to the Physical Therapy electronically documented visit dated 05/16/2024. Provider Attestation I have reviewed the treatment plan for Temitope Haddad, [facility]# [id number] for the period of 05/16/24 -- 07/15/24, established on 05/16/2024. Signature certifies the need for therapy services. [facility] CNTHERAPYon 05-16-2024 CNTHERAPY OT/PT/Speech Visit ( PTMDRG) HADDADTEMITOPE TADEO ([id number]) 1955 F CHT Date Time Provider Department 05/16/24 2:45 PM ROBIN GAFFNEY Date Time Provider Department [place] 05/16/2024 2:45 PM [id number]-GYSOROBIN GAFFNEYDRKam [facility] Reason for Visit: PT Eval [747] Patient Education [91] Primary Visit Diagnosis:Abnormality of gait [R26.9] Other Visit Diagnoses:Falls frequently [R29.6] Knee gives out, right [M25.361] Muscle stiffness [M62.89] Chronic pain of right knee [M25.561, G89.29] Right leg weakness [R29.898] Allergies As of Date: 05/16/2024 Noted Allergy Reaction FISH 07/10/2012 7 - Swelling 12 - Shortness of Breath MORPHINE 10/11/2011 1 - Mental Status Change 14 - Other: See Comments VICODIN (HYDROCODONE-ACETAMINOPHE* 11 - Vomiting AGGRENOX (ASPIRIN-DIPYRIDAMOLE) 01/31/2023 14 - Other: See Comments Comments: Headache HYDROCODONE BITARTRATE 04/24/2019 14 - Other: See Comments Date Reviewed: 04/29/2024 Reviewed by: Talita Preston LPN - Fully Assessed Prescriptions as of 05/16/2024 - levothyroxine (SYNTHROID) 75 mcg tablet Take [...] as needed for shortness of breath - DeligicZTRI AEROSPHERE 160-9-4.8 mcg/actuation HFA aerosol inhaler Inhale 2 Puffs as instructed twice daily. - levocetirizine 5 mg tablet Take 5 mg by mouth once daily. Meds Comments as of 11/07/2022: Mounter Automatic: Therapy (PT/OT/Speech/Resp) ID: [id number] 05/16/2024 3:21 PM Author: ROBIN GAFFNEY Signed by ROBIN GAFFNEY PT, DPT on 05/16/2024 at 3:21 PM Document text: Program_ID:[id number] Access Code: WPTEAKJY URL: [email or web address]://[email or web address]/ Date: 05-16-2024 Prepared By: Robin Gaffney Program Notes Exercises - Gastroc Stretch on Wall - 1 x daily - 7 x weekly - 1 sets - 3 reps - Supine Active Straight Leg Raise - 1 x daily - 7 x weekly - 1 sets - 10 reps - Seated Hamstring Stretch - 1 x daily - 7 x weekly - 1 sets - [address] [facility] THERAPY NTon 05-16-2024 THERAPY NT HNO ID: [id number] Author: ROBIN GAFFNEY, PT, DPT Service: Physical Therapy Author Type: Physical Therapist Type: Therapy (PT/OT/Speech/Resp) Filed: 05/16/2024 15:21 Note Text: Program_ID:[id number] Access Code: WPTEAKJY URL: [email or web address]://[email or web address]/ Date: 05-16-2024 Prepared By: Robin Gaffney Program Notes Exercises - Gastroc Stretch on Wall - 1 x daily - 7 x weekly - 1 sets - 3 reps - Supine Active Straight Leg Raise - 1 x daily - 7 x weekly - 1 sets - 10 reps - Seated Hamstring Stretch - 1 x daily - 7 x weekly - 1 sets - [address] [facility] CNPNon 05-02-2024 CNPN Telephone (FAMPWS) TEMITOPE HADDAD ([id number]) 1955 F CHT Date Time Provider Department 05/02/24 TATIANA RONQUILLO During your visit today, we recorded the following information about you: Kavitha Kim LPN 05/02/2024 9:32 AM Signed ----- Message from Tatiana Ronquillo MD sent at 05/02/2024 8:47 AM EST ----- Xray of the right knee is negative for fracture or dislocation. No signs of arthritis. Continue treatment as discussed. Kavitha Kim LPN 05/02/2024 9:35 AM Signed Phoned patient left detailed message with results, notes from Dr Ronquillo on voicemail. Allergies As of Date: 05/02/2024 Noted Allergy Reaction FISH 07/10/2012 7 - Swelling 12 - Shortness of Breath MORPHINE 10/11/2011 1 - Mental Status Change 14 - Other: See Comments VICODIN (HYDROCODONE-ACETAMINOPHE* 11 - Vomiting AGGRENOX (ASPIRIN-DIPYRIDAMOLE) 01/31/2023 14 - Other: See Comments Comments: Headache HYDROCODONE BITARTRATE 04/24/2019 14 - Other: See Comments Date Reviewed: 04/29/2024 Reviewed by: Talita Preston LPN - Fully Assessed Reason for Visit: Results [95] Prescriptions as of 05/02/2024 - levothyroxine (SYNTHROID) 75 mcg tablet Take [...] of 11/07/2022: Problem List As Of Date 05/02/2024 Noted Resolved Suprapubic pain [R10.2] 10/11/2011 06/10/2013 [...] major depression (HCC) [F33.*10/25/2023 Encounter Status:Closed by KAVITHA KIM on 05/02/24 [facility] 05-01-2024 [facility] Telephone (FAMWS) TEMITOPE HADDAD ([id number]) 1955 F T Date Time Provider Department 05/01/24 TATIANA RONQUILLO During your visit today, we recorded the following information about you: Gerda Ziegler LPN 05/01/2024 9:17 AM Signed ----- Message from Tatiana Ronquillo MD sent at 05/01/2024 7:07 AM EST ----- Labs are unremarkable aside from high TSH. Please confirm with patient that she is taking her synthroid daily as prescribed. If so, would need to increase dosage. LFTs improved compared to labs 2 months ago. No change in regimen for this. Gerda Ziegler LPN 05/01/2024 9:39 AM Signed Spoke with pt and information listed below given. Pt verbalizes understanding. Pt reports she is taking her thyroid medication daily. Please advise pt when new medication has been sent. IAN Marrufo Christopher B, MD 05/01/2024 9:44 AM Signed New rx sent. Recheck TSH in 2 months as ordered. Yumiko Sarkar RN 05/01/2024 9:55 AM Signed Pt called and is notified of providers results and instructions. Pt voices understanding. Yumiko Sarkar RN Allergies As of Date: 05/01/2024 Noted Allergy Reaction FISH 07/10/2012 7 - Swelling 12 - Shortness of Breath MORPHINE 10/11/2011 1 - Mental Status Change 14 - Other: See Comments VICODIN (HYDROCODONE-ACETAMINOPHE* 11 - Vomiting AGGRENOX (ASPIRIN-DIPYRIDAMOLE) 01/31/2023 14 - Other: See Comments Comments: Headache HYDROCODONE BITARTRATE 04/24/2019 14 - Other: See Comments Date Reviewed: 04/29/2024 Reviewed by: Talita Preston LPN - Fully Assessed Reason for Visit: Results [95] Visit Diagnosis:Acquired hypothyroidism [E03.9] Order(s):levothyroxine (SYNTHROID) 75 mcg tabletTake 1 tablet by mouth once daily.Disp: 90 tabletRfl: 0 THYROID STIMULATING HORMONE [SQTSH] Order #: [id number] FUTURE Prescriptions as of 05/01/2024 - levothyroxine (SYNTHROID) 75 mcg tablet Take [...] of 11/07/2022: Problem List As Of Date 05/01/2024 Noted Resolved Suprapubic pain [R10.2] 10/11/2011 06/10/2013 [...] 03/01/2023 Lumbar spondylosis [M47.816] 03/01/2023 Lung nodules (more content not included)... Normal [facility] CNOVon 04-29-2024 CNOV Office Visit (FAMPWS ) TEMITOPE HADDAD ([id number]) 1955 F T Date Time Provider Department 04/29/24 12:20 PM TATIANA RONQUILLO FAMPWS During your visit today, we recorded the following information about you: Pulse Respiration Blood pressure Weight 62/minute 18/minute 132/72 79.1 kg Tatiana Ronquillo MD 04/29/2024 12:53 PM Signed Chief Complaint Patient presents with: Fall HPI [...] Chronic kidney disease (CKD), stage III (moderate) ([facility]) COPD (chronic obstructive pulmonary disease) ([facility]) Dr. Wallace Depression Dysuria Generalized anxiety disorder [...] Left leg, managed by plastic surgery Stroke ([facility]) x 4 Suprapubic pain Vitamin D deficiency [...] by mouth daily at bedtime. For cholesterol. cholecalci (more content not included)... Normal [facility] Comprehensive metabolic 2000 panelon 04-29-2024 Albumin [Mass/Vol] 4.5 g/dL Normal 3.9-4.9 [facility] Comment on above: Order Comment: Speci men Type: BLOOD SPECIMENOrdering Facility: [facility] Address: [address] [place] [address] Performed By: #### L IP, 3192-3, ####[facility] LABCLIA [id number] [address] [address] [place] ALP [Catalytic activity/Vol] 76 U/L Normal 34-123 [facility] Comment on above: Order Comment: Speci men Type: BLOOD SPECIMENOrdering Facility: [facility] Address: [address] [place] [address] Performed By: #### L IPNF, 3, ####[facility] LABCLIA [id number] [place] [id number] [place] ALT [Catalytic activity/Vol] 41 U/L High 7-38 [facility] Comment on above: Order Comment: Speci men Type: BLOOD SPECIMENOrdering Facility: [facility] Address: [address] [place] [address] Performed By: #### L IPNF, 3015-07, ####[facility] LABCLIA [id number] [place] [id number] [place] Anion gap [Moles/Vol] 11 mmol/L Normal 8-15 [facility] Comment on above: Order Comment: Speci men Type: BLOOD SPECIMENOrdering Facility: [facility] Address: [address] [place] [address] Performed By: #### L IPNF, 3, ####[facility] LABCLIA [id number] [address] [address] [place] AST [Catalytic activity/Vol] 33 U/L Normal 13-35 [facility] Comment on above: Order Comment: Speci men Type: BLOOD SPECIMENOrdering Facility: [facility] Address: [address] [place] [address] Performed By: #### L IPNF, 3, 49941-6 ####[facility] LABCLIA [id number] [address] [address] [place] Bilirubin [Mass/Vol] 0.4 mg/dL Normal 0.2-1.3 [facility] Comment on above: Order Comment: Speci men Type: BLOOD SPECIMENOrdering Facility: [facility] Address: [address] [place] [address] Performed By: #### L IPNF, 3015-3, 77617-1 ####[facility] LABCLIA [id number] [place] [address] [place] Calcium [Mass/Vol] 9.3 mg/dL Normal 8.5-10.2 [facility] Comment on above: Order Comment: Speci men Type: BLOOD SPECIMENOrdering Facility: [facility] Address: [address] [place] [address] Performed By: #### L IPNF, 3, ####[facility] LABCLIA [id number] [place] [address] [place] Chloride [Moles/Vol] 104 mmol/L Normal 98-107 [facility] Comment on above: Order Comment: Speci men Type: BLOOD SPECIMENOrdering Facility: [facility] Address: [address] [place] [address] Performed By: #### L IPNF, 3, ####[facility] LABCLIA [id number] [place] [address] [place] CO2 [Moles/Vol] 26 mmol/L Normal 22-30 [facility] Comment on above: Order Comment: Speci men Type: BLOOD SPECIMENOrdering Facility: [facility] Address: [address] [place] [address] Performed By: #### L IPNF, 3, 62877-2 ####[facility] LABCLIA [id number] [place] [address] [place] Creatinine [Mass/Vol] 0.94 mg/dL Normal 0.58-0.96 [facility] Comment on above: Order Comment: Awa ross Type: BLOOD SPECIMENOrdering Facility: [facility] Address: [address] [place] [address] Performed By: #### L ZANDER, 3016-3, 89551-0 ####[facility] LABCLIA [id number] [place] [address] [place] Creatinine and Glomerular filtration rate.predicted panel (S/P/Bld) 67 mL/min/1.73m??? Normal >=60 [facility] Comment on above: Order Comment: Awa ross Type: BLOOD SPECIMENOrdering Facility: [facility] Address: [address] [place] [address] Result Comment: [place] mated Glomerular Filtration Rate (eGFR) is calculated using the 2020 CKD-EPI creatinine equation. This equation utilizes serum creatinine, sex, and age as parameters. The creatinine assay has traceable calibration to isotope dilution-mass spectrometry. Refer to KDIGO guidelines for clinical interpretation. In patients with unstable renal function, e.g. those with acute kidney injury, the eGFR may not accurately reflect actual GFR. Performed By: #### L ZANDER, 3016-3, 83631-5 ####[facility] LABCLIA [id number] [place] [address] [place] Glucose [Mass/Vol] 99 mg/dL Normal 74-99 [facility] Comment on above: Order Comment: Awa ross Type: BLOOD SPECIMENOrdering Facility: [facility] Address: [address] [place] [address] Result Comment: The [place] Diabetes Association (ADA) provides guidance for cutoff values for fasting glucose and random glucose. The ADA defines fasting as no caloric intake for at least 8 hours. Fasting plasma glucose results between 100 to 125 mg/dL indicate increased risk for diabetes (prediabetes). Fasting plasma glucose results greater than or equal to 126 mg/dL meet the criteria for diagnosis of diabetes. In the absence of unequivocal hyperglycemia, results should be confirmed by repeat testing. In a patient with classic symptoms of hyperglycemia or hyperglycemic crisis, random plasma glucose results greater than or equal to 200 mg/dL meet the criteria for diagnosis of diabetes. Reference: Standards of Medical Care in Diabetes 2016, [place] Diabetes Association. Diabetes Care. 2016.39(Suppl 1). Performed By: #### L ZANDER, 3015-07, ####[facility] LABCLIA [id number] [address] [address] [place] Potassium [Moles/Vol] 4.2 mmol/L Normal 3.7-5.1 [facility] Comment on above: Order Comment: Speci men Type: BLOOD SPECIMENOrdering Facility: [facility] Address: [address] [place] [address] Performed By: #### L ZANDER, 3015-07, ####[facility] LABCLIA [id number] [place] [address] [place] Protein [Mass/Vol] 7.0 g/dL Normal 6.3-8.0 [facility] Comment on above: Order Comment: Speci men Type: BLOOD SPECIMENOrdering Facility: [facility] Address: [address] [place] [address] Performed By: #### L ZANDER, 3015-07, ####[facility] LABCLIA [id number] [place] [address] [place] Sodium [Moles/Vol] 141 mmol/L Normal 136-144 [facility] Comment on above: Order Comment: Speci men Type: BLOOD SPECIMENOrdering Facility: [facility] Address: [address] [place] [id number] Performed By: #### L ZANDER, 3015-07, ####[facility] LABCLIA [id number] [place] [id number] [place] Urea nitrogen [Mass/Vol] 15 mg/dL Normal 7-21 [facility] Comment on above: Order Comment: Speci men Type: BLOOD SPECIMENOrdering Facility: [facility] Address: [address] [place] [address] Performed By: #### L IPELI, 3, ####[facility] LABCLIA [id number] [place] [address] [place] LIPID PANEL, NONFASTINGon Cholesterol [Mass/Vol] 164 mg/dL Normal <200 [facility] Comment on above: Order Comment: Speci men Type: BLOOD SPECIMENOrdering Facility: [facility] Address: [address] [place] [address] Result Comment: <200 mg/dL, Desirable 200-239 mg/dL, Borderline high >239 mg/dL, High Performed By: #### L ZANDER, 3, ####[facility] LABCLIA [id number] [place] [address] [place] HDL CHOLESTEROL, NF 66 mg/dL Normal >39 [facility] Comment on above: Order Comment: Speci men Type: BLOOD SPECIMENOrdering Facility: [facility] Address: [address] [place] [address] Result Comment: 40-5 9 mg/dL, Acceptable >59 mg/dL, High: Negative risk factor for coronary heart disease <40 mg/dL, Low: Positive risk factor for coronary heart disease Performed By: #### L ZANDER, 3, ####[facility] LABCLIA [id number] [place] [address] [place] LDL CHOLESTEROL, NF 85 mg/dL Normal <100 [facility] Comment on above: Order Comment: Speci men Type: BLOOD SPECIMENOrdering Facility: [facility] Address: [address] [place] [address] Result Comment: <100 mg/dL, Optimal 100-129 mg/dL, Near optimal/above optimal 130-159 mg/dL, Borderline high 160-189 mg/dL, High >189 mg/dL, Very high Secondary prevention optimal LDL Cholesterol levels are recommended to be < 70 mg/dL Performed By: #### L IPNF, 3016-3, 40854-4 ####[facility] LABCLIA [id number] [place] [address] [place] LDL/HDL RATIO, NF 1.29 mg/dL Normal <2.54 [facility] Comment on above: Order Comment: Speci men Type: BLOOD SPECIMENOrdering Facility: [facility] Address: [address] [place] [address] Result Comment: Refe rence: 1. National Cholesterol Education Program ATP III Guideline At-A-Glance Quick Desk Reference: National Heart, Lung, and Blood [place]. National Institutes of Health. 2001: NIH Publication No. 01-3305. 2. An International Atherosclerosis Society position paper: global recommendations for the management of dyslipidemia: executive summary, Atherosclerosis. 2014: 232(2):410-413. Performed By: #### L ZANDER, 3015-3, ####[facility] LABCLIA [id number] [place] [address] [place] NON HDL CHOL, NF 98 mg/dL Normal <130 [facility] Comment on above: Order Comment: Speci men Type: BLOOD SPECIMENOrdering Facility: [facility] Address: [address] [place] [address] Result Comment: <130 mg/dL, Optimal 130-159 mg/dL, Near optimal/above optimal 160-189 mg/dL, Borderline high 190-219 mg/dL, High >219 mg/dL, Very high Secondary prevention optimal non HDL Cholesterol levels are recommended to be <100 mg/dL Performed By: #### L IPNF, 3015-3, 12089-6 ####[facility] LABCLIA [id number] [address] [place] T CHOL/HDL RATIO NF 2.48 mg/dL Normal <5.10 [facility] Comment on above: Order Comment: Speci men Type: BLOOD SPECIMENOrdering Facility: [facility] Address: [address] [place] [address] Performed By: #### L ZANDER, 6-3, 05718-8 ####[facility] LABCLIA [id number] [place] [address] [place] TRIGLYCERIDES, NF 64 mg/dL Normal <150 [facility] Comment on above: Order Comment: Speci men Type: BLOOD SPECIMENOrdering Facility: [facility] Address: [address] [place] [address] Result Comment: <150 mg/dL, Normal 150-199 mg/dL, Borderline high 200-499 mg/dL, High >499 mg/dL, Very high Performed By: #### L IPNF, 6-3, 92958-8 ####[facility] LABCLIA [id number] [address] [place] VLDL CHOLESTEROL, NF 13 mg/dL Normal <30 [facility] Comment on above: Order Comment: Speci men Type: BLOOD SPECIMENOrdering Facility: [facility] Address: [address] [place] [address] Performed By: #### L IPNF, 3016-3, 89984-7 ####[facility] LABCLIA [id number] [place] [address] [place] TSH SerPl-aCncon 04-29-2024 TSH Qn 4.500 m[IU]/L High 0.270-4.20 0 [facility] Comment on above: Order Comment: Speci men Type: BLOOD SPECIMENOrdering Facility: [facility] Address: [address] [place] [address] Performed By: #### L IPNF, 3016-3, 22468-9 ####[facility] LABCLIA [id number] [place] [address] [place] XR KNEE 4V AP/PA BOTH+LAT/ME R RTon 04-29-2024 XR KNEE 4V AP/PA BOTH+LAT/XIAO RT * * *Final Report* * * DATE OF EXAM: Apr 29 2024 1:21PM WOX 5203 - XR KNEE 4V AP/PA BOTH+LAT/XIAO RT / PROCEDURE REASON: multiple diagnoses * * * * Physician Interpretation * * * * EXAMINATION / TECHNIQUE: XR KNEE 4V AP/PA BOTH+LAT/XIAO RT HISTORY: right knee has been giving out since Jan. and pain anterior patella area also hx of falls Falls frequently Knee gives out, right COMPARISON: None. RESULT: No acute fracture or osseous malalignment is identified. The joint spaces are preserved. No joint effusion. IMPRESSION: No acute bony abnormality. [employer] Driver: PSCB Transcribe Date/Time: May 01 2024 7:56P Dictated by : STUART HENDRIX MD This examination was interpreted and the report reviewed and electronically signed by: STUART HENDRIX MD on May 01 2024 7:56PM EST [id number] Normal [facility] CNPNon 04-19-2024 CNPN Telephone (ISABELLEWS) TEMITOPE HADDAD ([id number]) 1955 [facility] Date Time Provider Department 04/19/24 SABINE CROWLEY During your visit today, we recorded the following information about you: Theresa Sawant RDMS 04/19/2024 1:40 PM Signed May we please have ultrasound orders placed for mass RLQ. US Soft tissue Abdomen ([id number]) Pt. Is currently waiting in radiology. Thank you so much! Shavonne Corona APRN.WILVER 04/19/2024 2:12 PM Signed Order placed for US RLQ. Shavonne Donato APRN.WILVER Allergies As of Date: 04/19/2024 Noted Allergy Reaction FISH 07/10/2012 7 - Swelling 12 - Shortness of Breath MORPHINE 10/11/2011 1 - Mental Status Change 14 - Other: See Comments VICODIN (HYDROCODONE-ACETAMINOPHE* 11 - Vomiting AGGRENOX (ASPIRIN-DIPYRIDAMOLE) 01/31/2023 14 - Other: See Comments Comments: Headache HYDROCODONE BITARTRATE 04/24/2019 14 - Other: See Comments Date Reviewed: 04/18/2024 Reviewed by: Arabella Rosales MA - Fully Assessed Reason for Visit: Orders [681] Primary Visit Diagnosis:RLQ abdominal mass [R19.03] Order(s):US SOFT TISSUE ABDOMEN [[id number]] Order #: [id number] FUTURE Prescriptions as of 04/19/2024 - iv contrast (will be provided with radiology test) CT ABD/PEL -Inject, intravenously, once for 1 dose.No IV access, insert saline lock prior to the beginning of sedation, infusion, injection of imaging exam. Discontinue saline lock post exam. If Pt. has a central line or IVAD, may access for administration according to line specific nursing protocol. Once exam is complete flush line and de-access according to line specific nursing protocol in the CT contrast administration guidelines link. - enteric contrast (will be provided with radiology test) For CT ABD/PEL W IVCON Routine order Administer, As Directed One Time Only, via Oral, Rectal, both Oral and Rectal, Enteric Tube, Stoma or Indwelling Catheter, Enteric Contrast as designated per enteric contrast guidelines - clopidogrel (PLAVIX) 75 mg tablet Take 1 tablet by mouth once daily. - montelukast (SINGULAIR) 10 mg tablet Take 1 tablet by mouth daily at bedtime. - levothyroxine (SYNTHROID) 50 mcg tablet Take [...] of 11/07/2022: Problem List As Of Date 04/19/2024 Noted Resolved Suprapubic pain [R10.2] 10/11/2011 06/10/2013 [...] Stroke (HCC) [I63.9] 01/26/2023 Generalized anxiety disorder [F41 (more content not included)... Normal [facility] US SOFT TISSUE ABDOMENon US SOFT TISSUE ABDOMEN * * *Final Report * * * DATE OF EXAM: Apr 19 2024 2:37PM WRU 1268 - US SOFT TISSUE ABDOMEN / PROCEDURE REASON: RLQ abdominal mass * * * * Physician Interpretation * * * * SOFT TISSUE ULTRASOUND HISTORY: RLQ abdominal mass . Palpable abnormality at RIGHT lower abdomen . TECHNIQUE: Soft tissue ultrasound of the RIGHT lower abdomen area of concern. Images were obtained and stored in a permanent archive. COMPARISON: CT scan from 04/18/2024 RESULT: Ultrasound examination of the RIGHT lower quadrant of abdomen at the site of palpable abnormality shows no ultrasound evidence of abnormality including no ultrasound evidence of fluid collection or lesion. - IMPRESSION: No ultrasound abnormality is seen at the area of palpable abnormality. [employer] Driver: GASPER Transcribe Date/Time: Apr 21 2024 9:54A Dictated by : AMBER OLEARY MD This examination was interpreted and the report reviewed and electronically signed by: AMBER OLEARY MD on Apr 21 2024 9:55AM EST [id number] Normal [facility] CNOVon 04-18-2024 CNOV Office Visit (FAMPWS ) TEMITOPE HADDAD ([id number]) 1955 F [facility] Date Time Provider Department 04/18/24 12:00 PM SABINE CROWLEY During your visit today, we recorded the following information about you: Pulse Blood pressure Weight 66/minute 153/75 77.6 kg Sabine Crowley APRN.CNP 04/18/2024 12:09 PM Signed Chief Complaint Patient presents with: Mass: Lower [...] Chronic kidney disease (CKD), stage III (moderate) ([facility]) COPD (chronic obstructive pulmonary disease) ([facility]) Dr. Wallace Depression Dysuria Generalized anxiety disorder [...] Left leg, managed by plastic surgery Stroke ([facility]) x 4 Suprapubic pain Vitamin D deficiency [...] EXTRACAP,INSERT LENS Bilateral 2013, 2014 SURGICAL ARTHROSCOPY AADN W/CORACOACRM LIGM RLS 09/10/2013 Left shoulder arthroscopic [...] as needed for dizziness. citalopram hydrobromide (CELEXA) (more content not included)... Normal [facility] CNPNon 04-18-2024 CNPN Telephone (FAMPWS) TEMITOPE HADDAD ([id number]) 1955 F T Date Time Provider Department 04/18/24 [facility] During your visit today, we recorded the following information about you: Sabine Crowley APRN.MESSENGER COPY 04/18/2024 2:48 PM Signed Please let patient know their CT is negative for acute findings. I have ordered a US of the area. Savita Vidales MA 04/18/2024 3:04 PM Signed Patient informed and verbalized understanding. Sending to schedulers to assist in scheduling US that was ordered. ERMIAS Pacheco Michelle 04/19/2024 9:11 AM Signed 1st attempt LVM to schedule US Paulo Sifuentes 04/21/2024 10:32 AM Signed Patient completed US on 04/19/2024 Allergies As of Date: 04/18/2024 Noted Allergy Reaction FISH 07/10/2012 7 - Swelling 12 - Shortness of Breath MORPHINE 10/11/2011 1 - Mental Status Change 14 - Other: See Comments VICODIN (HYDROCODONE-ACETAMINOPHE* 11 - Vomiting AGGRENOX (ASPIRIN-DIPYRIDAMOLE) 01/31/2023 14 - Other: See Comments Comments: Headache HYDROCODONE BITARTRATE 04/24/2019 14 - Other: See Comments Date Reviewed: 04/18/2024 Reviewed by: Arabella Rosales MA - Fully Assessed Reason for Visit: Results [95] Primary Visit Diagnosis:Right lower quadrant abdominal mass [R19.03] Order(s):US EXTREMITY MASS/FLUID COLLECTION RIGHT [[id number]] Order #: [id number] FUTURE Prescriptions as of 05/10/2024 - levothyroxine (SYNTHROID) 75 mcg tablet Take [...] as needed for shortness of breath - Proposify AEROSPHERE 160-9-4.8 mcg/actuation HFA aerosol inhaler Inhale 2 Puffs as instructed twice daily. - levocetirizine 5 mg tablet Take 5 mg by mouth once daily. Meds Comments as of 11/07/2022: Problem List As Of Date 04/18/2024 Noted Resolved Suprapubic pain [R10.2] 10/11/2011 06/10/2013 [...] major depression (HCC) [F33.*10/25/2023 Encounter Status:Closed by SABINE CROWLEY on 05/10/24 Normal [facility] CT ABD/PEL W IVCONon 11-21-[address] ABD/PEL W IVCON * * *Final Report* * * DATE OF EXAM: Apr 18 2024 1:22PM [facility] 0530 - CT ABD/PEL W IVCON / PROCEDURE REASON: multiple diagnoses * * * * Physician Interpretation * * * * EXAMINATION: CT ABDOMEN AND PELVIS WITH IV CONTRAST CLINICAL HISTORY: Lower abdominal pain and nausea for one week TECHNIQUE: CT of the abdomen and pelvis was performed using standard technique, scanning from just above the dome of the diaphragm to the symphysis pubis. MQ: CTAP_3 Contrast: IV: 100 ml of Omnipaque 350 Oral: 420 ml of Omni 240 10-25ml diluted with water CT Radiation dose: Integrated Dose-length product (DLP) for this visit = 522.57 mGy*cm. CT Dose Reduction Employed: Automated exposure control(AEC) and iterative recon COMPARISON: CT chest 03/14/2023 RESULT: Liver: There are several fluid attenuation lesions in the right lobe of the liver likely representing cysts largest measuring 1.1 cm. There are few subcentimeter low-attenuation lesions in the right lobe too small to fully characterize potentially representing additional cysts similar in size to prior chest CT. Biliary: No bile duct dilation. Gallbladder is unremarkable. Spleen: No mass. No splenomegaly. Pancreas: No mass or duct dilation. Adrenals: No mass. Kidneys: No mass, stone or hydronephrosis. There are several parapelvic cysts in the left kidney largest measuring 1.4 cm. GI tract: No dilation or wall thickening. Scattered diverticula within the sigmoid colon. Normal appendix. Lymph nodes: No abdominal or pelvic lymphadenopathy. Mesentery/Peritoneum: No ascites or mass. Retroperitoneum: No mass. Vasculature: - Abdominal aorta and iliac arteries: No aneurysm. - Celiac and SMA: Patent without stenosis. - Portal venous system (SMV, splenic vein, portal vein and branches): Patent. - Hepatic veins: Patent. Pelvis: No mass, ascites or fluid collection. Uterus and bladder unremarkable. Bones/Soft Tissues: No significant finding. Lower thorax: Lung bases are unremarkable. Localizer images: No additional findings. IMPRESSION: No acute findings in the abdomen and pelvis. Sigmoid colon diverticulosis. No evidence of diverticulitis. [employer] Truck Driver: GASPER Transcribe Date/Time: Apr 18 2024 1:47P Dictated by : ZEYNEP LEO MD This examination was interpreted and the report reviewed and electronically signed by: ZEYNEP LEO MD on Apr 18 2024 1:55PM EST [id number] Normal [facility] CT Abdomen and Pelvis W cont rast Josh 04-18-2024 IMPRESSION: No acute findings in the abdomen and pelvis. Sigmoid colon diverticulosis. No evidence of diverticulitis. [employer] Truck Driver: PSCReva Transcribe Date/Time: Apr 18 2024 1:47P Dictated by : ZEYNEP LEO MD This examination was interpreted and the report reviewed and electronically signed by: ZEYNEP LEO MD on Apr 18 2024 1:55PM EST [employer] RADIOLOGY SYNGO * * *Final Report* * * DATE OF EXAM: Apr 18 2024 1:22PM [facility] 0530 - CT ABD/PEL W IVCON / PROCEDURE REASON: multiple diagnoses * * * * Physician Interpretation * * * * EXAMINATION: CT ABDOMEN AND PELVIS WITH IV CONTRAST CLINICAL HISTORY: Lower abdominal pain and nausea for one week TECHNIQUE: CT of the abdomen and pelvis was performed using standard technique, scanning from just above the dome of the diaphragm to the symphysis pubis. MQ: CTAP_3 Contrast: IV: 100 ml of Omnipaque 350 Oral: 420 ml of Omni 240 10-25ml diluted with water CT Radiation dose: Integrated Dose-length product (DLP) for this visit = 522.57 mGy*cm. CT Dose Reduction Employed: Automated exposure control(AEC) and iterative recon COMPARISON: CT chest 03/14/2023 RESULT: Liver: There are several fluid attenuation lesions in the right lobe of the liver likely representing cysts largest measuring 1.1 cm. There are few subcentimeter low-attenuation lesions in the right lobe too small to fully characterize potentially representing additional cysts similar in size to prior chest CT. Biliary: No bile duct dilation. Gallbladder is unremarkable. Spleen: No mass. No splenomegaly. Pancreas: No mass or duct dilation. Adrenals: No mass. Kidneys: No mass, stone or hydronephrosis. There are several parapelvic cysts in the left kidney largest measuring 1.4 cm. GI tract: No dilation or wall thickening. Scattered diverticula within the sigmoid colon. Normal appendix. Lymph nodes: No abdominal or pelvic lymphadenopathy. Mesentery/Peritoneum: No ascites or mass. Retroperitoneum: No mass. Vasculature: - Abdominal aorta and iliac arteries: No aneurysm. - Celiac and SMA: Patent without stenosis. - Portal venous system (SMV, splenic vein, portal vein and branches): Patent. - Hepatic veins: Patent. Pelvis: No mass, ascites or fluid collection. Uterus and bladder unremarkable. Bones/Soft Tissues: No significant finding. Lower thorax: Lung bases are unremarkable. Localizer images: No additional findings. [facility] * * *Final Report* * * DATE OF EXAM: Apr 18 2024 1:22PM [facility] 0530 - CT ABD/PEL W IVCON / PROCEDURE REASON: multiple diagnoses * * * * Physician Interpretation * * * * EXAMINATION: CT ABDOMEN AND PELVIS WITH IV CONTRAST CLINICAL HISTORY: Lower abdominal pain and nausea for one week TECHNIQUE: CT of the abdomen and pelvis was performed using standard technique, scanning from just above the dome of the diaphragm to the symphysis pubis. MQ: CTAP_3 Contrast: IV: 100 ml of Omnipaque 350 Oral: 420 ml of Omni 240 10-25ml diluted with water CT Radiation dose: Integrated Dose-length product (DLP) for this visit = 522.57 mGy*cm. CT Dose Reduction Employed: Automated exposure control(AEC) and iterative recon COMPARISON: CT chest 03/14/2023 RESULT: Liver: There are several fluid attenuation lesions in the right lobe of the liver likely representing cysts largest measuring 1.1 cm. There are few subcentimeter low-attenuation lesions in the right lobe too small to fully characterize potentially representing additional cysts similar in size to prior chest CT. Biliary: No bile duct dilation. Gallbladder is unremarkable. Spleen: No mass. No splenomegaly. Pancreas: No mass or duct dilation. Adrenals: No mass. Kidneys: No mass, stone or hydronephrosis. There are several parapelvic cysts in the left kidney largest measuring 1.4 cm. GI tract: No dilation or wall thickening. Scattered diverticula within the sigmoid colon. Normal appendix. Lymph nodes: No abdominal or pelvic lymphadenopathy. Mesentery/Peritoneum: No ascites or mass. Retroperitoneum: No mass. Vasculature: - Abdominal aorta and iliac arteries: No aneurysm. - Celiac and SMA: Patent without stenosis. - Portal venous system (SMV, splenic vein, portal vein and branches): Patent. - Hepatic veins: Patent. Pelvis: No mass, ascites or fluid collection. Uterus and bladder unremarkable. Bones/Soft Tissues: No significant finding. Lower thorax: Lung bases are unremarkable. Localizer images: No additional findings. IMPRESSION IMPRESSION: No acute findings in the abdomen and pelvis. Sigmoid colon diverticulosis. No evidence of diverticulitis. [employer]: [employer] Transcribe Date/Time: Apr 18 2024 1:47P Dictated by : ZEYNEP LEO MD This examination was interpreted and the report reviewed and electronically signed by: ZEYNEP LEO MD on Apr 18 2024 1:55PM EST [facility] Radiology Study observation (narrative) [facility] CT Abdomen and Pelvis W cont rast IVOrdered By: Ccf Provider on 04-18-2024 [facility] CNPNon 04-17-2024 CNPN Telephone (FAMPWS) TEMITOPE HADDAD ([id number]) 1955 F T Date Time Provider Department 04/17/24 [facility] During your visit today, we recorded the following information about you: Sumaya Grubbs RN 04/17/2024 2:35 PM Signed Pt reports she has a lump in [...] triad today or tomorrow. Scheduled appt with Laboratory Animal Facility Supervisor for tomorrow. Allergies As of Date: 04/17/2024 Noted Allergy Reaction FISH 07/10/2012 7 - Swelling 12 - Shortness of Breath MORPHINE 10/11/2011 1 - Mental Status Change 14 - Other: See Comments VICODIN (HYDROCODONE-ACETAMINOPHE* 11 - Vomiting AGGRENOX (ASPIRIN-DIPYRIDAMOLE) 01/31/2023 14 - Other: See Comments Comments: Headache HYDROCODONE BITARTRATE 04/24/2019 14 - Other: See Comments Date Reviewed: 02/20/2024 Reviewed by: Talita Preston LPN - Fully Assessed Reason for Visit: Lump right groin [Other] Prescriptions as of 04/17/2024 - clopidogrel (PLAVIX) 75 mg tablet Take 1 tablet by mouth once daily. - montelukast (SINGULAIR) 10 mg tablet Take 1 tablet by mouth daily at bedtime. - levothyroxine (SYNTHROID) 50 mcg tablet Take [...] of 11/07/2022: Problem List As Of Date 04/17/2024 Noted Resolved Suprapubic pain [R10.2] 10/11/2011 06/10/2013 [...] major depression (HCC) [F33.*10/25/2023 Encounter Status:Closed by Sumaya GRUBBS on 04/17/24 Normal [facility] Pulmonary Visit Reporton Pulmonary Visit Report [facility] [address] [place] [address] OFFICE VISIT Date of Service: 03/07/24 MR#: [id number] Acct: [id number] Name: TEMITOPE HADDAD Rep #: [id number] : 1955 Provider: CARLO Fernandez Age/Sex: 68/F Location: [facility].PMW Status: Signed Assessment and Plan Assessment and Plan (1) Chronic hypoxic respiratory failure: Status: Chronic Plan: Recently identified. Lengthy discussion with the patient about the deleterious effects of hypoxia on the body, including but not limited to disease progression and premature . The patient conveys understanding. She was instructed that she should be utilizing 2 L/min of supplemental oxygen with any ambulation. She has been using supplemental oxygen and benefiting from it at home. She now is aware that she should be utilizing the portable tanks when away from home. (2) 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: Status: Chronic Plan: Stable, she does not appear to be an exacerbation of COPD today. No need for prednisone or antibiotic. Continue current maintenance medication, symptomatically controlled with use of Treleg y. No repeat testing at this time. Contact the office for any new or worsening symptoms. An acute visit and typically be arranged within 1-2 days. Follow-up in November 2024. (3) Lung 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 on CT: Status: Chronic Plan: The patient will be due for LDCT in October of 2024, ordered previously. Follow-up in November 2024 to discuss test results. Continue to encourage ongoing smoking cessation. HPI 3 M FU Chief Complaint: Test results HPI Comments Details: This patient presents to the office today to discuss test results and follow-up on her stage III severe COPD. She is ambulatory and currently on room air. She is accompanied today by her . She has not recently been seen in the ED or urent care for any respiratory illness. She has not required any antibiotics or prednisone for any breathing problems. She is compliant with use of Trelegy one puff daily. She does report rinsing her mouth out after each use. She denies any medication side effect such as sore throat or thrush. She has not r ecently used albuterol rescue inhaler. She does have shortness of breath that is worse with exertion. She denies any cough, sputum production or hemoptysis. She does report wheezing and chest tightness, especially on exertion. She denies any chest pain or palpitations. She has not had any fever, chills or body aches. She continues complete smoking cessation. If you recall, she quit smoking back in 2020. Test results personally reviewed with patient: Walking oximetry completed on February 02, 2024. The patient was able to ambulate a total of 796 feet over the course of 6 minutes. It is recommended that the patient utilize 2 L/min of supplemental oxygen with any exertion. Pulmonary function test completed on February 01, 2024. Impression is irreversible moderate large airway obstructive dilatory defect with a disproportionate reduction diffusing capacity. FEV1 63% of predicted. Intake Vital Signs 12/01/23 08:25 02/11/24 22:24 03/07/24 12:38 Height 5 ft 6 in 5 ft 6 in 5 ft 6 in Weight: 169 lb BMI 27.2 BP 129/77 H Blood Pressure Location Lt brachial Position Sitting Respiration 18 Pulse 64 Pulse Source Monitor Temp 96.1 F L Temperature Source Temporal Artery Pulse Oximetry (%) 95 Oxygen Delivery Method room air Intake Visit Reasons: 3 M FU Chief Complaint: COPD DME Vendor: [employer] Accompanied by: Allergies hydrocodone bitartrate (From Vicodin) Allergy (Verified 03/07/24 14:03) HALLUCINATES piperacillin (From Zosyn) Allergy (Verified 03/07/24 14:03) Hives tazobactam (From Zosyn) Allergy (Verified 03/07/24 14:03) Hives vancomycin Allergy (Verified 03/07/24 14:03) Rash fish derived Adverse Reaction (Verified 03/07/24 14:03) Anaphylaxis morphine Adverse Reaction (Verified 03/07/24 14:03) HALLUCINATES Medications ???Medication ???Instructions ???Recorded ???Confirmed ???Type levothyroxine 50 mcg tablet 50 mcg PO DAILY THYROID 08/17/21 03/07/24 History clopidogrel 75 mg tablet 75 mg PO DAILY BLOOD THINNER 30 06/08/22 03/07/24 Rx days #30 tabs atorvastatin 40 mg tablet 40 mg PO DAILY 07/01/22 03/07/24 History losartan 25 mg tablet 25 mg PO DAILY #90 tabs 09/29/22 03/07/24 Rx alendronate 70 mg tablet 70 mg PO Q7D 08/14/23 03/07/24 History cholecalciferol (vitamin D3) 125 125 mcg PO DAILY 08/14/23 03/07/24 History mcg (5,000 unit) tablet citalopram 10 mg tablet 10 mg PO DAILY 08/14/23 03/07/24 History meclizine 25 mg chewable tablet 25 mg PO TID PRN dizziness #30 tabs 08/14/23 03/07/24 Rx fluticasone fur. 200 mcg-umeclid 1 inh inhalation DAILY #60 ea 12/01/23 (more content not included)... Normal [facility] US DVT LOWER RTon 01-23-2024 US DVT LOWER RT * * *Final Report* * * DATE OF EXAM: Jan 23 2024 5:28PM LDU 1007 - US DVT LOWER RT / PROCEDURE REASON: Right calf pain * * * * Physician Interpretation * * * * EXAMINATION: RIGHT LOWER EXTREMITY DEEP VENOUS ULTRASOUND WITH DOPPLER IMAGING CLINICAL HISTORY: Right calf pain TECHNIQUE: Grayscale with compression maneuvers, color Doppler and spectral Doppler imaging of the right proximal deep veins was performed. Grayscale with compression maneuvers of the peroneal and posterior tibial veins was performed. The right great and small saphenous veins were evaluated at their insertion to the deep system. The contralateral common femoral vein was imaged for comparison. Images were obtained and stored in a permanent archive. MQ: USLER_1 COMPARISON: None RESULT: RIGHT LOWER EXTREMITY PROXIMAL DEEP VEINS Distal External Iliac, Common Femoral and proximal Profunda Veins: Compression: Normal Doppler: Normal, spontaneous respirophasic flow. Normal response to augmentation. Femoral vein: Compression: Normal Doppler: Normal, spontaneous flow. Normal response to augmentation. Popliteal vein: Compression: Normal Doppler: Normal, spontaneous flow. Normal response to augmentation. CALF DEEP VEINS Peroneal veins: Normal compression. Posterior tibial veins: Normal compression. Gastrocnemius and Soleal veins: Not imaged. SUPERFICIAL VEINS Great saphenous: Patent and compressible at insertion into common femoral vein; not otherwise assessed. Small Saphenous: Not identified. LEFT LOWER EXTREMITY (FOR COMPARISON) Common Femoral Vein: Compression: Normal Doppler: Normal, spontaneous respirophasic flow. Normal response to augmentation. IMPRESSION: Negative study for proximal DVT in the right lower extremity. Negative study for calf DVT in the right lower extremity. Negative study for superficial thrombophlebitis in the imaged segments of the right lower extremity. Cross Country Truck Driver: [facility] Transcribe Date/Time: Jan 23 2024 6:07P Dictated by : ZEYNEP LEO MD This examination was interpreted and the report reviewed and electronically signed by: ZEYNEP LEO MD on Jan 23 2024 6:08PM EST [id number] Normal [facility] US Lower extremity vein - formerly [facility] 01-23-2024 IMPRESSION: Negative study for proximal DVT in the right lower extremity. Negative study for calf DVT in the right lower extremity. Negative study for superficial thrombophlebitis in the imaged segments of the right lower extremity. [employer] Driver: [facility] Transcribe Date/Time: Jan 23 2024 6:07P Dictated by : ZEYNEP LEO MD This examination was interpreted and the report reviewed and electronically signed by: ZEYNEP LEO MD on Jan 23 2024 6:08PM EST [facility] * * *Final Report* * * DATE OF EXAM: Jan 23 2024 5:28PM U 1007 - US DVT LOWER RT / PROCEDURE REASON: Right calf pain * * * * Physician Interpretation * * * * EXAMINATION: RIGHT LOWER EXTREMITY DEEP VENOUS ULTRASOUND WITH DOPPLER IMAGING CLINICAL HISTORY: Right calf pain TECHNIQUE: Grayscale with compression maneuvers, color Doppler and spectral Doppler imaging of the right proximal deep veins was performed. Grayscale with compression maneuvers of the peroneal and posterior tibial veins was performed. The right great and small saphenous veins were evaluated at their insertion to the deep system. The contralateral common femoral vein was imaged for comparison. Images were obtained and stored in a permanent archive. MQ: USLER_1 COMPARISON: None RESULT: RIGHT LOWER EXTREMITY PROXIMAL DEEP VEINS Distal External Iliac, Common Femoral and proximal Profunda Veins: Compression: Normal Doppler: Normal, spontaneous respirophasic flow. Normal response to augmentation. Femoral vein: Compression: Normal Doppler: Normal, spontaneous flow. Normal response to augmentation. Popliteal vein: Compression: Normal Doppler: Normal, spontaneous flow. Normal response to augmentation. CALF DEEP VEINS Peroneal veins: Normal compression. Posterior tibial veins: Normal compression. Gastrocnemius and Soleal veins: Not imaged. SUPERFICIAL VEINS Great saphenous: Patent and compressible at insertion into common femoral vein; not otherwise assessed. Small Saphenous: Not identified. LEFT LOWER EXTREMITY (FOR COMPARISON) Common Femoral Vein: Compression: Normal Doppler: Normal, spontaneous respirophasic flow. Normal response to augmentation. [facility] Provider, [facility] - 01/23/2024 * * *Final Report* * * DATE OF EXAM: Jan 23 2024 5:28PM LDU 1007 - US DVT LOWER RT / PROCEDURE REASON: Right calf pain * * * * Physician Interpretation * * * * EXAMINATION: RIGHT LOWER EXTREMITY DEEP VENOUS ULTRASOUND WITH DOPPLER IMAGING CLINICAL HISTORY: Right calf pain TECHNIQUE: Grayscale with compression maneuvers, color Doppler and spectral Doppler imaging of the right proximal deep veins was performed. Grayscale with compression maneuvers of the peroneal and posterior tibial veins was performed. The right great and small saphenous veins were evaluated at their insertion to the deep system. The contralateral common femoral vein was imaged for comparison. Images were obtained and stored in a permanent archive. MQ: USLER_1 COMPARISON: None RESULT: RIGHT LOWER EXTREMITY PROXIMAL DEEP VEINS Distal External Iliac, Common Femoral and proximal Profunda Veins: Compression: Normal Doppler: Normal, spontaneous respirophasic flow. Normal response to augmentation. Femoral vein: Compression: Normal Doppler: Normal, spontaneous flow. Normal response to augmentation. Popliteal vein: Compression: Normal Doppler: Normal, spontaneous flow. Normal response to augmentation. CALF DEEP VEINS Peroneal veins: Normal compression. Posterior tibial veins: Normal compression. Gastrocnemius and Soleal veins: Not imaged. SUPERFICIAL VEINS Great saphenous: Patent and compressible at insertion into common femoral vein; not otherwise assessed. Small Saphenous: Not identified. LEFT LOWER EXTREMITY (FOR COMPARISON) Common Femoral Vein: Compression: Normal Doppler: Normal, spontaneous respirophasic flow. Normal response to augmentation. IMPRESSION IMPRESSION: Negative study for proximal DVT in the right lower extremity. Negative study for calf DVT in the right lower extremity. Negative study for superficial thrombophlebitis in the imaged segments of the right lower extremity. [employer] Driver: [employer] Transcribe Date/Time: Jan 23 2024 6:07P Dictated by : ZEYNEP LEO MD This examination was interpreted and the report reviewed and electronically signed by: ZEYNEP LEO MD on Jan 23 2024 6:08PM EST [facility] Radiology Study observation (narrative) [facility] US Lower extremity vein - ri ghtOrdered By: Ccf Provider on 01-23-2024 [facility] ED NOTEon 01-22-2024 ED NOTE HNO ID: [id number] Author: ANASTASIA GRAHAM, JUAN Service: Emergency Medicine Author Type: Registered Nurse Type: ED Notes Filed: 01/22/2024 22:18 Note Text: Patient is alert, talkative, no distress noted. Crutches instructions given with demonstration and teach back. Giles wrap applied. Patient to follow up with PCP. Rest, Ice, Compression, elevation instructions given. Patient instructed to follow up with PCP, return with any new, worsening, or recurrent symptoms. Verbalizes understanding of all instructions. Ambulates with ease to lobby, no distress. Normal [facility] ED NOTE HNO ID: [id number] Author: SABINE THOMPSON, JUAN Service: Emergency Medicine Author Type: Registered Nurse Type: ED Notes Filed: 01/22/2024 20:16 Note Text: Right ankle pain, swelling. No specific injury. States she woke up with the pain this morning and was painful to walk Normal [facility] ED PROV NOTEon 01-22-2024 ED PROV NOTE HNO ID: [id number] Author: YAMILE CURRY DO Service: Emergency Medicine Author Type: Physician Type: ED Provider Notes Filed: 01/23/2024 06:14 Note Text: ED Provider Note Patient Name: Temitope Haddad : 1955 SERVICE DATE: 01/22/24 History Patient presents with: Ankle Pain Pain (foot) Temitope Haddad is a 68 year old female with history of multiple chronic medical problems who presents with Ankle Pain and Pain (foot). - Symptoms began last night. - Severity: moderate - Timing: constant - Quality: sore - Ankle Pain and Pain (foot) is exacerbated by movement palpation and weight bearing. - Symptoms are associated with right leg pain. - Symptoms are not associated with chest pain, chills, fever, and shortness of breath. Patient presents with right ankle pain that started last night. Family states that the patient moved in bed while she was sleeping and he heard a pop and the patient briefly woke up from the pain and then went back to sleep. She states she went got up this morning and she was having pain trying to put any weight on her right foot and ankle. She states the pain is mainly located in the ankle and shoots down towards the foot and up the lower leg. She states that there is no fever or chills. No chest pain or shortness of breath. PAST MEDICAL HISTORY No date: Abdominal pain, right lower quadrant No date: Benign neoplasm of colon No date: Chronic kidney disease (CKD), stage III (moderate) ([facility]) No date: COPD (chronic obstructive pulmonary disease) ([facility]) Comment: Dr. Wallace No date: Depression No date: Dysuria No date: Generalized anxiety disorder No date: GERD (gastroesophageal reflux disease) 07/28/2023: Heme positive stool Comment: EGD and colonoscopy negative for bleed 09/09/2023: Hiatal hernia Comment: moderate No date: History of colonic polyps No date: History of tobacco use No date: HTN (hypertension) No date: Hyperlipemia No date: Hypothyroidism No date: Impaired fasting blood sugar No date: Left leg pain No date: Leiomyoma of uterus, unspecified Comment: very mild changes seen on sono 03/30/2023: Lung nodules Comment: Patient requesting to f/u with pulm for repeat imaging. 02/13/2023: Osteopenia No date: Seasonal allergies No date: Skin graft hematoma Comment: Left leg, managed by plastic surgery No date: Stroke ([facility]) Comment: x 4 No date: Suprapubic pain No date: Vitamin D deficiency PAST SURGICAL HISTORY 05/29/1997: BREAST BIOPSY Comment: (L) breast biopsy- Dr. Logan 2021: COLONOSCOPY Comment: Dr. Barakat-1 polyp removed 10/17/2012: COLONOSCOPY FLX DX W/COLLJ SPEC WHEN PFRMD Comment: Colonoscopy 10/17/2012: ESOPHAGOGASTRODUODENOSCOPY TRANSORAL DIAGNOSTIC Comment: EGD 05/29/1982: LIG/TRNSXJ FLP TUBE ABDL/VAG APPR UNI/BI No date: PAST SURGICAL HISTORY OF Comment: left shoulder manipulation No date: PAST SURGICAL HISTORY OF; Left Comment: skin graft of left upper leg No date: REMV CATARACT EXTRACAP,INSERT LENS; Bilateral Comment: 2013, 201409/10/2013: SURGICAL ARTHROSCOPY ADAN W/CORACOACRM LIGM RLS Comment: Left shoulder arthroscopic Sub AC decompression FAMILY [...] date: 07/27/1978 Quit date: 07/27/2020 Years since quittin.4 Smokeless tobacco: Never Tobacco comments: d/c 07/27/2020 Vaping Use Vaping status: Never Used Substance and Sexual Activity Alcohol use: No Drug use: No Sexual activity: Yes Partners: Male control/protection: Surgical ALLERGIES Allergen Reactions Fish Swelling, Shortness of Breath Morphine Mental Status Change, Other: See Comments Vicodin [Hydrocodon* Vomiting Aggrenox [Aspirin-D* Other: See Comments Headache Hydrocodone Bitartr* Other: See Comments Review of Systems Constitutional: Negative for ch (more content not included)... Normal [facility] XR ANKLE 3V AP/LAT/OBL RTon 01-22-2024 XR ANKLE 3V AP/LAT/OBL RT * * *Final Report* * * DATE OF EXAM: Jan 22 2024 9:10PM LDX 5297 - XR ANKLE 3V AP/LAT/OBL RT / PROCEDURE REASON: Ankle pain, no prior imaging * * * * Physician Interpretation * * * * AP AND LATERAL VIEWS OF THE RIGHT TIBIA/FIBULA AP, LATERAL, OBLIQUE VIEWS OF THE RIGHT ANKLE AP, LATERAL, OBLIQUE VIEWS OF THE RIGHT FOOT CLINICAL HISTORY: Pain and swelling COMPARISONS: None. FINDINGS: Right tibia/fibula: No acute fracture or dislocation. Mild subcutaneous edema. Right ankle: Circumferential swelling and mild subcutaneous edema. No acute fracture. Mortise intact. Right foot: Hallux valgus deformity. No acute fracture. Normal mineralization. IMPRESSION: No acute radiographic finding at the imaged right lower extremity. [employer]: [employer] Transcribe Date/Time: Jan 22 2024 9:33P Dictated by : GAVINO SOSA MD This examination was interpreted and the report reviewed and electronically signed by: GAVINO SOSA MD on Jan 22 2024 9:34PM EST [id number] Normal [facility] XR FOOT 3V AP/LAT/OBL RTon 0 01-22-2024 XR FOOT 3V AP/LAT/OBL RT * * *Final Report* * * DATE OF EXAM: Jan 22 2024 9:10PM LDX 5337 - XR FOOT 3V AP/LAT/OBL RT / PROCEDURE REASON: Foot pain * * * * Physician Interpretation * * * * AP AND LATERAL VIEWS OF THE RIGHT TIBIA/FIBULA AP, LATERAL, OBLIQUE VIEWS OF THE RIGHT ANKLE AP, LATERAL, OBLIQUE VIEWS OF THE RIGHT FOOT CLINICAL HISTORY: Pain and swelling COMPARISONS: None. FINDINGS: Right tibia/fibula: No acute fracture or dislocation. Mild subcutaneous edema. Right ankle: Circumferential swelling and mild subcutaneous edema. No acute fracture. Mortise intact. Right foot: Hallux valgus deformity. No acute fracture. Normal mineralization. IMPRESSION: No acute radiographic finding at the imaged right lower extremity. [employer]: [employer] Transcribe Date/Time: Jan 22 2024 9:33P Dictated by : GAVINO SOSA MD This examination was interpreted and the report reviewed and electronically signed by: GAVINO SOSA MD on Jan 22 2024 9:34PM EST [id number] Normal [facility] XR TIBIA FIBULA 2V AP/LAT RT on 01-22-2024 XR TIBIA FIBULA 2V AP/LAT RT * * *Final Report* * * DATE OF EXAM: Jan 22 2024 9:10PM LDX 5266 - XR TIBIA FIBULA 2V AP/LAT RT / PROCEDURE REASON: Other * * * * Physician Interpretation * * * * AP AND LATERAL VIEWS OF THE RIGHT TIBIA/FIBULA AP, LATERAL, OBLIQUE VIEWS OF THE RIGHT ANKLE AP, LATERAL, OBLIQUE VIEWS OF THE RIGHT FOOT CLINICAL HISTORY: Pain and swelling COMPARISONS: None. FINDINGS: Right tibia/fibula: No acute fracture or dislocation. Mild subcutaneous edema. Right ankle: Circumferential swelling and mild subcutaneous edema. No acute fracture. Mortise intact. Right foot: Hallux valgus deformity. No acute fracture. Normal mineralization. IMPRESSION: No acute radiographic finding at the imaged right lower extremity. [employer]: [employer] Transcribe Date/Time: Jan 22 2024 9:33P Dictated by : GAVINO SOSA MD This examination was interpreted and the report reviewed and electronically signed by: GAVINO SOSA MD on Jan 22 2024 9:34PM EST [id number] Normal [facility] Comprehensive metabolic 2000 panelon 10-26-2023 Albumin [Mass/Vol] 4.2 g/dL 3.9 - 4.9 g/dL [facility] ALP [Catalytic activity/Vol] 68 U/L 34 - 123 U/L [facility] ALT [Catalytic activity/Vol] 28 U/L 7 - 38 U/L [facility] Anion gap [Moles/Vol] 12 mmol/L 9 - 18 mmol/L [facility] AST [Catalytic activity/Vol] 28 U/L 13 - 35 U/L [facility] Bilirubin [Mass/Vol] 0.4 mg/dL 0.2 - 1 .3 mg/dL [facility] Calcium [Mass/Vol] 9.9 mg/dL 8.5 - 10. 2 mg/dL [facility] Chloride [Moles/Vol] 105 mmol/L 97 - 10 5 mmol/L [facility] CO2 [Moles/Vol] 24 mmol/L 22 - 30 mmol/L [facility] Creatinine [Mass/Vol] 1.07 mg/dL High 0.58 - 0.96 mg/dL [facility] GFR/1.73 sq M.predicted among non-blacks MDRD (S/P/Bld) [Vol rate/Area] 57 mL/min/{1.73_m2} Low - PINF [facility] Comment on above: Estimated Glomerular Filtration Rate (eGFR) is calculated using the 2020 CKD-EPI creatinine equation. This equation utilizes serum creatinine, sex, and age as parameters. The creatinine assay has traceable calibration to isotope dilution-mass spectrometry. Refer to KDIGO guidelines for clinical interpretation. In patients with unstable renal function, e.g. those with acute kidney injury, the eGFR may not accurately reflect actual GFR. Glucose [Mass/Vol] 92 mg/dL 74 - 99 mg/dL [facility] Comment on above: The [place] [employer] (ADA) provides guidance for cutoff values for fasting glucose and random glucose. The ADA defines fasting as no caloric intake for at least 8 hours. Fasting plasma glucose results between 100 to 125 mg/dL indicate increased risk for diabetes (prediabetes). Fasting plasma glucose results greater than or equal to 126 mg/dL meet the criteria for diagnosis of diabetes. In the absence of unequivocal hyperglycemia, results should be confirmed by repeat testing. In a patient with classic symptoms of hyperglycemia or hyperglycemic crisis, random plasma glucose results greater than or equal to 200 mg/dL meet the criteria for diagnosis of diabetes. Reference: Standards of Medical Care in Diabetes 2016, [place] [employer]. Diabetes Care. 2016.39(Suppl 1). Interpretation and review of laboratory results Abnormal [facility] Potassium [Moles/Vol] 4.5 mmol/L 3.7 - 5.1 mmol/L [facility] Protein [Mass/Vol] 7.0 g/dL 6.3 - 8.0 g/dL [facility] Sodium [Moles/Vol] 141 mmol/L 136 - 144 mmol/L [facility] Urea nitrogen [Mass/Vol] 17 mg/dL 7 - 21 mg/dL [facility] ANES POSTPROC EVALon 024 ANES POSTPROC EVAL HNO ID: [id number] Author: PETRA CABALLERO DO Service: Anesthesiology Author Type: Anesthesiologist Type: Anesthesia Postprocedure Evaluation Filed: 09/04/2023 17:47 Note Text: POST ANESTHESIA EVALUATION NOTE : 1955 Procedure Summary Date: 09/04/23 Room / Location: [facility] Endoscopy Anesthesia Start: 1317 Anesthesia Stop: 1349 Procedures: COLONOSCOPY DIAGNOSTIC EGD DIAGNOSTIC Diagnosis: Screening for colon cancer History of colonic polyps Epigastric pain Blood in stool (Rectal bleeding) (Epigastric abdominal pain) Scheduled Providers: Isidro Lipscomb MD; Jose Dooley APRN.ACID LEVELER; Justo Haley MD Responsible Provider: Gio Tenorio MD Anesthesia Type: MAC ASA Status: 3 Anesthesia Type: MAC Last Vitals Vitals Value Taken Time BP 134/92 09/04/23 1415 Temp 36.3 ?C (97.3 ?F) 09/04/23 1349 HR SpO2 58 09/04/23 1349 Resp 17 09/04/23 1418 SpO2 97 % 09/04/23 1418 Vitals shown include unfiled device data. Post Anesthesia Patient Status Patient Evaluation: PACU. PACU/ICU Patient Condition: stable. Anticipated Disposition: phase 2 then home. Neurological Status: aware and responsive. Pulmonary Status: breathing comfortably on room air Airway Control: returned to baseline unsupported. Cardiovascular Status: stable. Pain Management: clinically adequate Postoperative Hydration: acceptable. Intraoperative Events: no significant anesthesia events Post Operative Nausea/Vomiting Status: no significant post operative nausea or vomiting Recommendation: continue current plan of care and further care per PACU/ICU/floor team. Anesthesia Observations No Documentation SIGNATURE: Petra Caballero DO PATIENT NAME: Temitope Haddad DATE: September 04, 2023 TIME: 5:47 PM CSN: [id number] Normal [facility] ANES PRE-OPon 09-04-2023 ANES PRE-OP HNO ID: [id number] Author: GIO TENORIO MD Service: Anesthesiology Author Type: Anesthesiologist Type: Anesthesia Preprocedure Evaluation Filed: 09/04/2023 13:10 Note Text: ANESTHESIOLOGY DAY OF SURGERY NOTE : 1955 Procedure Information Date/Time: 09/04/23 1400 Scheduled providers: Isidro Lipscomb MD; Jose Dooley APRN.ACID LEVELER; Justo Haley MD Procedures: COLONOSCOPY DIAGNOSTIC EGD DIAGNOSTIC Location: [facility] Endoscopy Estimated body mass index is 26.79 kg/m? as calculated from the following: Height as of this encounter: 167.6 cm (5' 6"). Weight as of this encounter: 75.3 kg (166 lb). Most recent hematocrit and potassium results: Hematocrit 43.6 07/27/2023 Potassium 4.2 07/27/2023 Relevant Problems CARDIO (+) HTN (hypertension) (+) Headache, variant migraine ENDO (+) Hypothyroidism GI (+) GERD (gastroesophageal reflux disease) (+) Hiatal hernia -RENAL (+) Chronic kidney disease (CKD), stage III (moderate) (HCC) NEURO-PSYCH (+) Headache, variant migraine (+) History of CVA (cerebrovascular accident) (+) Hx of seasonal allergies (+) Stroke (HCC) (+) TIA (transient ischemic attack) PULMONARY (+) COPD (chronic obstructive pulmonary disease) (HCC) Other (+) Adhesive capsulitis of left shoulder I - PHYSICAL EVALUATION AIRWAY Patient intubated: No. Tracheostomy tube not present Mallampati: II. TM distance: >3 FB. Neck ROM: full ROM without neurological symptoms. Mouth opening: adequate. DENTAL Dental findings: poor dentition. Additional exam findings: no II - ANESTHESIA PLAN ASA Score: 3 Anesthetic Plan: MAC NPO Status: adequate Beta Bree Monitoring Plan Monitoring plan: standard ASA. Post Procedure Analgesic Plan Postoperative analgesic plan: parenteral or oral opioids and multimodal analgesia. Patient / Surrogate agrees to blood products: blood products not planned Significant changes in the patient condition since the History and Physical, not otherwise documented in primary service progress note: no. Vitals Value Taken Time BP 138/65 09/04/23 1254 Pulse 73 09/04/23 1254 Resp 16 09/04/23 1254 Temp 36.6 ?C (97.9 ?F) 09/04/23 1254 SpO2 92 % 09/04/23 1254 Outpatient Medications as of 09/04/2023 Medication Sig - MOTION SICKNESS RELIEF,MECLIZ, 25 mg chewable tablet(s) Take 25 mg by mouth three times a day as needed. - citalopram hydrobromide (CELEXA) 10 mg tablet Take 1 tablet by mouth once daily. - clopidogrel (PLAVIX) 75 mg tablet Take 1 tablet by mouth once daily. - cholecalciferol (VITAMIN D3) 5,000 unit tab Take 1 tablet by mouth once daily. - levothyroxine (SYNTHROID) 50 mcg tablet Take 1 tablet by mouth once daily. - atorvastatin (LIPITOR) 20 mg tablet Take 2 tablets by mouth daily at bedtime. For cholesterol. - alendronate (FOSAMAX) 70 mg tablet Take 1 tablet by mouth one time a week. Take with a full glass of water, on an empty stomach; do NOT lie down for 30minutes. - losartan (COZAAR) 25 mg tablet Take 1 tablet by mouth once daily. - albuterol HFA (PROVENTIL HFA, VENTOLIN HFA) 90 mcg/actuation inhaler inhale 2 puffs by mouth every 6 hours as needed for shortness of breath - BREZTRI AEROSPHERE 160-9-4.8 mcg/actuation HFA aerosol inhaler Inhale 2 Puffs as instructed twice daily. - levocetirizine 5 mg tablet Take 5 mg by mouth once daily. Facility-Administered Medications as of 09/04/2023 Medication Dose Route Frequency - lactated ringers iv infusion 30 mL/hr INTRAVENOUS CONTINUOUS I have interviewed and examined the patient. I have reviewed the medical record and/or the pre-anesthesia evaluation, pertinent labs, and test results. This contains updated information obtained within 48 hours of Surgery/Procedure. SIGNATURE: Gio Tenorio MD PATIENT NAME: Temitope Haddad DATE: September 04, 2023 TIME: 1:10 PM CSN: [id number] Normal [facility] Colonoscopyon 09-04-[address] [facility] Gastrointestinal Endoscopy Patient Name: Temitope Haddad Procedure Date: 09/04/2023 1:11 PM Date of : 1955 Admit Type: Outpatient Age: 68 Room: [facility] Gender: Female Note Status: Finalized Attending MD: Isidro Lipscomb MD, [id number] Procedure: Colonoscopy Indications: Rectal bleeding Providers: Isidro Lipscomb MD Patient Profile: This is a 68 year old female. Refer to note in patient chart for documentation of history and physical. Last Colonoscopy: within the past 3 years. Referring Physician: Isidro Lipscomb MD (Referring MD) Medicines: Monitored Anesthesia Care Complications: No immediate complications. Requesting Provider: Procedure: Pre-Anesthesia Assessment: - Prior to the procedure, a History and Physical was performed, and patient medications and allergies were reviewed. The patient is competent. The risks and benefits of the procedure and the sedation options and risks were discussed with the patient. All questions were answered and informed consent was obtained. Patient identification and proposed procedure were verified by the physician, the nurse and the lead inspector in the procedure room. Mental Status Examination: normal. Airway Examination: normal oropharyngeal airway and neck mobility. Respiratory Examination: clear to auscultation. CV Examination: normal. Prophylactic Antibiotics: The patient does not require prophylactic antibiotics. Prior Anticoagulants: The patient has taken Plavix (clopidogrel), last dose was day of procedure. ASA Grade Assessment: III - A patient with severe systemic disease. After reviewing the risks and benefits, the patient was deemed in satisfactory condition to undergo the procedure. The anesthesia plan was to use monitored anesthesia care (MAC). Immediately prior to administration of medications, the patient was re-assessed for adequacy to receive sedatives. The heart rate, respiratory rate, oxygen saturations, blood pressure, adequacy of pulmonary ventilation, and response to care were monitored throughout the procedure. The physical status of the patient was re-assessed after the procedure. After I obtained informed consent, the scope was passed under direct vision. Throughout the procedure, the patient's blood pressure, pulse, and oxygen saturations were monitored continuously. The Colonoscope was introduced through the anus and advanced to the cecum, identified by the appendiceal orifice, IC valve and transillumination. The colonoscopy was performed without difficulty. The patient tolerated the procedure well. The quality of the bowel preparation was good. Scope Withdrawal Time: 0 hours 4 minutes 54 seconds Moderate Sedation: MAC anesthesia was administered by the anesthesia team. Total Procedure Duration: 0 hours 13 minutes 38 seconds Findings: The perianal and digital rectal examinations were normal. The entire examined colon appeared normal on direct and retroflexion views. Impression: - The entire examined colon is normal on direct and retroflexion views. - No specimens collected. Recommendation: - Discharge patient to home. - Resume previous diet. - Continue present medications. - Repeat colonoscopy in 10 years for screening purposes. - Telephone my office for pathology results in 1 week. - Patient has a contact number available for emergencies. The signs and symptoms of potential delayed complications were discussed with the patient. Return to normal activities tomorrow. Written discharge instructions were provided to the patient. - Resume Plavix (clopidogrel) today at prior dose. Procedure Code(s): --- Professional --- 27946, Colonoscopy, flexible; diagnostic, including collection of specimen(s) by brushing or washing, when performed (separate procedure) CPT copyright 2020 [employer]. All rights reserved. The codes documented in this report are preliminary and upon mechanical engineer review may be revised to meet current compliance requirements. Attending Participation: I personally performed the entire procedure. Scope In: 1:29:47 PM Scope Out: 1:43:25 PM MD Isidro Rosario MD 09/04/2023 1:57:16 PM This report has been signed electronically by Isidro Lipscomb MD Number of Addenda: 0 Note Initiated On: 09/04/2023 1:11 PM Estimated Blood Loss: Estimated blood loss: none. [facility] EGD Study observation Narrat iveon 09-04-2023 [facility] Flexible sigmoidoscopy study on 09-04-2023 [facility] HISTORY PHYSICALon HISTORY PHYSICAL HNO ID: [id number] Author: ISIDRO LIPSCOMB MD Service: General Surgery Author Type: Physician Type: H&P Filed: 09/04/2023 12:45 Note Text: HISTORY AND PHYSICAL Temitope Haddad 1955 REFERRING [...] tobacco use and multiple CVAs. She is on Plavix. The patient is being seen by me [...] COPD (chronic obstructive pulmonary disease) (HCC) Dr. Ivan Depression Dysuria Generalized anxiety disorder GERD (gastroesophageal [...] hours as needed for shortness of breath KAYZTRI AEROSPHERE 160-9-4.8 mcg/actuation HFA aerosol inhaler Inhale [...] Hypertension No Family History Blood Clots No (more content not included)... Normal [facility] SURGICAL PATHOLOGYon CASE REPORT Normal [facility] Comment on above: Order Comment: Speci men Type: TISSUE SPECIMEN Ordering Facility: [facility] Address: [address] [place] [address] Result Comment: Surg [facility] Pathology Report Case: [id number] Authorizing Provider: Isidro Lipscomb MD Collected: 09/04/2023 01:24 PM Ordering Location: [facility] Endoscopy Received: 09/04/2023 03:07 PM Pathologist: Wild Segura MD Specimens: A) - Stomach, Biopsy, R/O H. Pylori B) - Esophagus, Distal, Biopsy, R/O Faust's Performed By: #### S #### [facility] CLIA [id number] [address] [place] [address] [place] FINAL DIAGNOSIS Normal [facility] Comment on above: Order Comment: Speci men Type: TISSUE SPECIMEN Ordering Facility: [facility] Address: [address] [place] [address] Result Comment: A. S tomach, biopsy: -Gastric antral mucosa with no diagnostic abnormality. -No morphologic evidence of Helicobacter pylori. B. Esophagus, distal, biopsy: -Squamous epithelium with mild reactive change and parakeratosis. -No glandular epithelium present. Performed By: #### S #### [facility] CLIA [id number] [address] [place] [address] [place] FINAL PERFORMING LAB Normal [facility] Comment on above: Order Comment: Speci men Type: TISSUE SPECIMEN Ordering Facility: [facility] Address: [address] [place] [address] Result Comment: Diag nostic interpretation performed at [facility], [address] [place] [address] CLIA# [id number] Plate Straightener: Keegan Kirkpatrick M.D. Performed By: #### S #### [facility] CLIA [id number] [address] [place] [address] [place] GROSS DESCRIPTION [facility] Comment on above: Order Comment: Speci men Type: TISSUE SPECIMEN Ordering Facility: [facility] Address: [address] [place] [address] Result Comment: A. S tomach, Biopsy Received in formalin is one piece of otero, soft tissue measuring 0.3 x 0.2 x 0.2 cm. Totally submitted in one cassette. B. Esophagus, Distal, Biopsy Received in formalin are two pieces of otero-white, soft tissue aggregating to 0.3 x 0.1 x 0.2 cm. Totally submitted in one cassette. Gross examination performed at [facility], [address] [place] [address] September 04, 2023 8:54 PM Performed By: #### S #### [facility] CLIA [id number] [address] [place] [address] [place] Upper GI endoscopyon [address] [facility] Gastrointestinal Endoscopy Patient Name: Temitope Haddad Procedure Date: 09/04/2023 1:12 PM Date of : 1955 Admit Type: Outpatient Age: 68 Room: [facility] Gender: Female Note Status: Finalized Attending MD: Isidro Lipscomb MD, [id number] Procedure: Upper GI endoscopy Indications: Epigastric abdominal pain, Suspected gastro-esophageal reflux disease Providers: Isidro Lipscomb MD Patient Profile: This is a 68 year old female. Refer to note in patient chart for documentation of history and physical. Referring Physician: Isidro Lipscomb MD (Referring MD) Medicines: Monitored Anesthesia Care Requesting Provider: Procedure: Pre-Anesthesia Assessment: - Prior to the procedure, a History and Physical was performed, and patient medications and allergies were reviewed. The patient is competent. The risks and benefits of the procedure and the sedation options and risks were discussed with the patient. All questions were answered and informed consent was obtained. Patient identification and proposed procedure were verified by the physician, the nurse and the lead inspector in the procedure room. Respiratory Examination: clear to auscultation. Prophylactic Antibiotics: The patient does not require prophylactic antibiotics. Prior Anticoagulants: The patient has taken Plavix (clopidogrel), last dose was day of procedure. ASA Grade Assessment: III - A patient with severe systemic disease. After reviewing the risks and benefits, the patient was deemed in satisfactory condition to undergo the procedure. The anesthesia plan was to use monitored anesthesia care (MAC). Immediately prior to administration of medications, the patient was re-assessed for adequacy to receive sedatives. The heart rate, respiratory rate, oxygen saturations, blood pressure, adequacy of pulmonary ventilation, and response to care were monitored throughout the procedure. The physical status of the patient was re-assessed after the procedure. After obtaining informed consent, the endoscope was passed under direct vision. Throughout the procedure, the patient's blood pressure, pulse, and oxygen saturations were monitored continuously. The Endoscope was introduced through the mouth, and advanced to the jejunum. The upper GI endoscopy was accomplished without difficulty. The patient tolerated the procedure well. Moderate Sedation: MAC anesthesia was administered by the anesthesia team. Total Procedure Duration: 0 hours 3 minutes 35 seconds Findings: The examined jejunum was normal. The examined duodenum was normal. Localized moderate inflammation characterized by adherent blood, erosions, erythema, friability and shallow ulcerations was found in the gastric antrum. Biopsies were taken with a cold forceps for histology. A medium-sized hiatal hernia was present. The esophagus and gastroesophageal junction were examined with white light and narrow band imaging (NBI) from a forward view and retroflexed position. There were esophageal mucosal changes consistent with short-segment Afust's esophagus. These changes involved the mucosa extending to the Z-line. Tongues of salmon-colored mucosa were present and islands of salmon-colored mucosa were present. The maximum longitudinal extent of these esophageal mucosal changes was 2 cm in length. Biopsies were taken with a cold forceps for histology. Mucosa was biopsied with a cold forceps for histology. One specimen bottle was sent to pathology. Impression: - Normal examined jejunum. - Normal examined duodenum. - Gastritis. Biopsied. - Medium-sized hiatal hernia. - Esophageal mucosal changes consistent with short-segment Faust's esophagus. Biopsied. Recommendation: - Discharge patient to home. - Resume previous diet. - Use Prilosec (omeprazole) 40 mg PO daily. Procedure Code(s): --- Professional --- 02234, Esophagogastroduodenoscopy, flexible, transoral; with biopsy, single or multiple CPT copyright 2020 [employer]. All rights reserved. The codes documented in this report are preliminary and upon mechanical engineer review may be revised to meet current compliance requirements. Attending Participation: I was present and participated during the entire procedure, including non-bloom portions, and during the administration and monitoring of Moderate Sedation. Scope In: 1:22:38 PM Scope Out: 1:26:13 PM MD Isidro Rosario MD 09/04/2023 1:50:28 PM This report has been signed electronically by Isidro Lipscomb MD Number of Addenda: 0 Note Initiated On: 09/04/2023 1:12 PM Estimated Blood Loss: Estimated blood loss: none. Normal [facility] Absolute lymphocyte countOrd ered By: Eduardo Ely on 08-14-2023 Lymphocytes Auto (Unsp spec) [#/Vol] 1.13 10*3/uL 0.83-4.51 [facility] Automated lymphocyte count a s percentage of total leukocytesOrdered By: Eduardo Ely on 08-14-2023 Lymphocytes/100 WBC Auto (Unsp spec) 22.6 % 19-41 [facility] Basophil percentageOrdered B y: Eduardo Ely on 08-14-2023 Basophil percentage 5-10 SEEN /hpf 0-5 [facility] Basophils/100 WBC (Bld) 1.0 % 0-1 [facility] Eosinophils/100 WBC (Bld) 4.4 % 0-5 [facility] Hemoglobin (Bld) [Mass/Vol] 13.3 g/dL 12.0-15.0 [facility] Monocytes/100 WBC (Bld) 6.8 % 0-10 [facility] Neutrophils (Bld) [#/Vol] 3.2 10*3/uL 2.0-7.7 [facility] Neutrophils/100 WBC (Bld) 64.8 % 47-70 [facility] WBC (Bld) [#/Vol] 5.0 10*3/uL 4.4-11.0 [facility] Chloride [Moles/Vol] 109 mmol/L 98-107 [facility] Glucose [Mass/Vol] 95 mg/dL 74-106 [facility] Potassium [Moles/Vol] 4.3 mmol/L 3.5-5.1 [facility] Comment on above: Slight Hemolysis, Re sult may be falsely increased. Sodium [Moles/Vol] 140 mmol/L 136-145 [facility] Bilirubin Test strip Ql (U)O rdered By: Eduardo Ely on 08-14-2023 Bilirubin Ql (U) Negative Negative [facility] Determination of erythrocyte mean corpuscular volume (MCV)Ordered By: Eduardo Ely on 08-14-2023 MCV (RBC) [Entitic vol] 91.9 fL 81-99 [facility] Erythrocyte distribution wid th ratioOrdered By: Eduardo Ely on 08-14-2023 Erythrocyte distribution width (RBC) [Ratio] 13.5 % 11.6-14.6 [facility] Erythrocyte distribution wid th standard deviationOrdered By: Eduardo Ely on 08-14-2023 Erythrocyte distribution width (RBC) [Entitic vol] 45.3 fL 35.1-43.9 [facility] Hematocrit Auto (Bld) [Volum e fraction]Ordered By: Eduardo Ely on 08-14-2023 Hematocrit (Bld) [Volume fraction] 41.9 % 37-47 [facility] Immature granulocytes/100 WB C Auto (Bld)Ordered By: Eduardo Ely on 08-14-2023 Immature granulocytes/100 WBC (Bld) 0.400 % 0.0-0.9 [facility] Comment on above: IG% - Immature Granu locytes (promyelocytes, myelocytes and metamyelocytes) > 1% indicates that a LEFT SHIFT is Present. Ketones Test strip Ql (U)Ord ered By: Eduardo Ely on 08-14-2023 Ketones Ql (U) Negative Negative [facility] Laboratory - Chemistry and C hemistry - challengeOrdered By: Eduardo Ely on 08-14-2023 CO2 [Moles/Vol] 29.0 mmol/L 21.0-32.0 [facility] Urea nitrogen/Creatinine [Mass ratio] 16.0 mg/mg 10-20 [facility] Laboratory - Hematology and Cell countsOrdered By: Eduardo Ely on 08-14-2023 MCH (RBC) [Entitic mass] 29.2 pg 27.0-32.0 [facility] MCHC (RBC) [Mass/Vol] 31.7 g/dL 32-36 [facility] Nucleated RBC/100 WBC (Bld) [Ratio] 0 % 0-5 [facility] Platelet mean volume (Bld) [Entitic vol] 9.0 fL 6.2-12.0 [facility] Platelets (Bld) [#/Vol] 191 10*3/uL 150-450 [facility] Mucus LM Ql (Urine sed)Order ed By: Eduardo Ely on 08-14-2023 Mucus Ql (Urine sed) 0 SEEN /hpf [facility] Nitrite Test strip Ql (U)Ord ered By: Eduardo Ely on 08-14-2023 Nitrite Ql (U) Negative Negative [facility] No Panel InformationOrdered By: Eduardo Ely on 08-14-2023 Urine RBC 0-5 SEEN /hpf 0-5 [facility] Estimated Creatinine Clearance Calc 54.40 ml/min [facility] Estimated GFR (MDRD) Amer 67 mL/min >60 [facility] Comment on above: GFR Calc Estimated GFR (MDRD) Non-Af Amer 55 mL/min >60 [facility] Comment on above: Non- GFR Calc Troponin I High Sensitivity 5 pg/mL 3.0-54.0 [facility] Comment on above: Please Note: New [place] t Units and Gender Specific Reference Ranges. For more information see Policy Stat Procedure [place] High Sensitivity Troponin (TNIH) and attachments. Protein Test strip Ql (U)Ord ered By: Eduardo Ely on 08-14-2023 Protein Ql (U) Negative Negative [facility] RBC Auto (Bld) [#/Vol]Ordere d By: Eduardo Ely on 08-14-2023 RBC (Bld) [#/Vol] 4.56 10*6/uL 4.2-5.4 [facility] Serum or plasma calcium tino urement (mass/volume)Ordered By: Eduardo Ely on 08-14-2023 Calcium [Mass/Vol] 8.9 mg/dL 8.5-10.1 [facility] Serum or plasma creatinine m easurement (mass/volume)Ordered By: Eduardo Ely on 08-14-2023 Creatinine [Mass/Vol] 1.06 mg/dL 0.55-1.02 [facility] Comment on above: The validity of the calculated GFR & GFRAA in patients over 70 years has not been determined. Clinical correlation is essential. Serum or plasma urea nitroge n measurement (mass/volume)Ordered By: Eduardo Ely on 08-14-2023 Urea nitrogen [Mass/Vol] 17 mg/dL 12-13 [facility] Squamous epithelial cells de tection in urine sediment by light microscopyOrdered By: Eduardo Ely on 08-14-2023 Epithelial cells.squamous LM Ql (Urine sed) 0 SEEN /hpf 5-10 [facility] Thin prep Papanicolaou smear with manual screeningOrdered By: Eduardo Ely on 08-14-2023 Thin prep Papanicolaou smear with manual screening 2 5-15 [facility] Urine blood detectionOrdered By: Eduardo Ely on 08-14-2023 RBC Ql (U) 10 /ul Negative [facility] Urine clarityOrdered By: Robin Ely on 08-14-2023 Clarity (U) Clear Clear [facility] Urine color determinationOrd ered By: Eduardo Ely on 08-14-2023 Color (U) Yellow Yellow [facility] Urine glucose detectionOrder ed By: Eduardo Ely on 08-14-2023 Glucose Ql (U) Normal mg/dl Normal [facility] Urine leukocyte esterase det ection by dipstickOrdered By: Eduardo Ely on 08-14-2023 Leukocyte esterase Test strip Ql (U) 500 /ul Negative [facility] Urine pHOrdered By: Eduardo sultana on 08-14-2023 pH (U) 5.0 [pH] 5.0 - 8.0 [facility] Urine sediment bacteria coun t by microscopy (number/high power field)Ordered By: Eduardo Ely on 08-14-2023 Bacteria LM.HPF (Urine sed) [#/Area] RARE /hpf None Seen [facility] Urine specific gravity measu rementOrdered By: Eduardo Ely on 08-14-2023 Specific gravity (U) [Rel density] 1.020 1.002-1.03 0 [facility] Urine urobilinogen measureme ntOrdered By: Eduardo Ely on 08-14-2023 Urobilinogen Ql (U) Normal mg/dl Normal [facility] US Kidney - bilateral and Ur inary bladderon 07-31-2023 [facility] Urinalysis complete panel (U )on 07-31-2023 Bacteria LM.HPF (Urine sed) [#/Area] Negative Negative /HPF [facility] Bilirubin Ql (U) Negative Negative [facility] Clarity (Unsp spec) Clear Clear [facility] Color (U) Yellow Yellow [facility] Epithelial cells LM.HPF (Urine sed) [#/Area] Few [facility] Glucose Test strip (U) [Mass/Vol] Negative Negative [facility] Hemoglobin Ql (U) Negative Negative [facility] Hyaline casts (Urine sed) [#/Area] 1-3 /LPF Abnormal 0 /LPF [facility] Ketones Ql (U) Negative Negative [facility] Leukocyte esterase Test strip Ql (U) 2+ Abnormal Negative [facility] Nitrite Ql (U) Negative Negative [facility] pH (U) 5.5 [pH] <8.5 [facility] Protein (U) [Mass/Vol] Negative Negative Cl [facility] RBC LM.HPF (Urine sed) [#/Area] 0-2 /HPF 0-2 /HPF [facility] Specific gravity (U) [Rel density] 1.017 1.005 - 1.030 [facility] Urobilinogen Ql (U) 0.2 EU/dL 0.2-1.0 EU/dL [facility] WBC LM.HPF (Urine sed) [#/Area] 11-20 /HPF Abnormal 0-5 /HPF [facility] CNOVon 05-26-2023 CNOV Office Visit (SPAGWO ) TEMITOPE HADDAD ([id number]) 1955 [facility] Date Time Provider Department 05/26/23 1:15 PM MEAGHAN TREVINO During your visit today, we recorded the following information about you: Pulse Respiration 75/minute 18/minute Clover Alberts LPN 05/26/2023 4:20 PM Signed Review of Systems Constitutional: Positive for activity [...] Negative for suicidal ideas. The patient is nervous/anxious. Meaghan Trevino APRN.MESSENGER COPY 05/26/2023 4:20 PM Signed [facility] Today's Date: 05/26/2023 Name: Temitope Haddad [...] was advised that they will need a cross country truck driver for after the procedure and that if no cross country truck driver is available and on site at [...] Referrals: No additional considerations at present Functional Denominational: Physical Therapy (Land-based) Depending on response to [...] Opioids: Roxicodone and Percocet (Oxycodone) Muscle Relaxants: Fle (more content not included)... Normal [facility] LUIS Baires 03-22 [facility] Aureliano 03-16-2023 CNPN Telephone (PULMJM) TEMITOPE HADDAD ([id number]) 1955 [facility] Date Time Provider Department 03/16/23 BARRETT FALK [facility] During your visit today, we recorded the following information about you: Barrett Falk APRN.MESSENGER COPY 03/16/2023 3:28 PM Signed Phone call to patient to discuss results and recommendations for lung nodule follow up: [address] Chest. Pt states she has a lung doctor and wishes to follow up with them instead. She is asking to be discharged from our program. She is aware that if she wants to have screening CT scans done at [facility] in the future she will need to get re-enrolled in the Lung Cancer Screening Program. Allergies As of Date: 03/16/2023 Noted Allergy Reaction FISH 07/10/2012 7 - Swelling 12 - Shortness of Breath MORPHINE 10/11/2011 1 - Mental Status Change 14 - Other: See Comments VICODIN (HYDROCODONE-ACETAMINOPHE* 11 - Vomiting AGGRENOX (ASPIRIN-DIPYRIDAMOLE) 01/31/2023 14 - Other: See Comments Comments: Headache HYDROCODONE BITARTRATE 04/24/2019 14 - Other: See Comments Date Reviewed: 02/23/2023 Reviewed by: Clover Alberts LPN - Fully Assessed Reason for Visit: Results [95] Prescriptions as of 03/16/2023 - atorvastatin (LIPITOR) 20 mg tablet Take 2 tablets by mouth daily at bedtime. For cholesterol. - diclofenac (VOLTAREN ARTHRITIS PAIN) 1 % topical gel Apply 4 g to affected area four times daily. - alendronate (FOSAMAX) 70 mg tablet Take 1 tablet by mouth one time a week. Take with a full glass of water, on an empty stomach; do NOT lie down for 30minutes. - clopidogrel (PLAVIX) 75 mg tablet Take 1 tablet by mouth once daily. - cholecalciferol (VITAMIN D3) 5,000 unit tab Take 1 tablet by mouth once daily. - losartan (COZAAR) 25 mg tablet Take 1 tablet by mouth once daily. - albuterol HFA (PROVENTIL HFA, VENTOLIN HFA) 90 mcg/actuation inhaler inhale 2 puffs by mouth every 6 hours as needed for shortness of breath - BREZTRI AEROSPHERE 160-9-4.8 mcg/actuation HFA aerosol inhaler Inhale 2 Puffs as instructed twice daily. - levocetirizine 5 mg tablet Take 5 mg by mouth once daily. - citalopram hydrobromide (CELEXA) 10 mg tablet Take 10 mg by mouth once daily. - levothyroxine (SYNTHROID) 50 mcg tablet Take 50 mcg by mouth once daily. Meds Comments as of 11/07/2022: Problem List As Of Date 03/16/2023 Noted Resolved Suprapubic pain [R10.2] 10/11/2011 06/10/2013 [...] Coccyodynia [M53.3] 03/01/2023 Lumbar spondylosis [M47.816] 03/01/2023 Encounter Status:Closed by BARRETT FALK on 03/16/[address] [facility] CHEST WO IVCONon 03-16-20 Radiology Result ACTIONABLE Abnormal [facility] Absolute lymphocyte countOrd ered By: Eduardo Ely on 03-13-2023 Lymphocytes Auto (Unsp spec) [#/Vol] 1.28 10*3/uL 0.83-4.51 [facility] Basophil percentageOrdered B y: Eduardo Ely on 03-13-2023 Basophil percentage 10-25 SEEN /hpf 0-5 [facility] Basophils/100 WBC (Bld) 0.8 % 0-1 [facility] Bilirubin [Mass/Vol] 0.40 mg/dL 0.20-1.00 [facility] Comment on above: For patients on eltr ombopag therapy, use of Dimension [place] TBIL is not recommended. Chloride [Moles/Vol] 109 mmol/L 98-107 [facility] Eosinophils/100 WBC (Bld) 1.1 % 0-5 [facility] Glucose [Mass/Vol] 86 mg/dL 74-106 [facility] Neutrophils (Bld) [#/Vol] 3.6 10*3/uL 2.0-7.7 [facility] Neutrophils/100 WBC (Bld) 68.6 % 47-70 [facility] Potassium [Moles/Vol] 4.4 mmol/L 3.5-5.1 [facility] Protein [Mass/Vol] 7.0 g/dL 6.4-8.2 [facility] Sodium [Moles/Vol] 141 mmol/L 136-145 [facility] WBC (Bld) [#/Vol] 5.3 10*3/uL 4.4-11.0 [facility] Bilirubin Test strip Ql (U)O rdered By: Eduardo Ely on 03-13-2023 Bilirubin Ql (U) Negative Negative [facility] Blood erythrocytes count (nu mber/volume)Ordered By: Eduardo Ely on 03-13-2023 RBC (Bld) [#/Vol] 4.58 10*6/uL 4.2-5.4 [facility] Blood hemoglobin measurement (mass/volume)Ordered By: Eduardo Ely on 03-13-2023 Hemoglobin (Bld) [Mass/Vol] 13.8 g/dL 12.0-15.0 [facility] Blood lymphocytes/100 leukoc ytesOrdered By: Eduardo Ely on 03-13-2023 Lymphocytes/100 WBC (Bld) 24.2 % 19-41 [facility] Blood monocytes/100 leukocyt esOrdered By: Eduardo Ely on 03-13-2023 Monocytes/100 WBC (Bld) 5.1 % 0-10 [facility] Blood platelet mean volumeOr dered By: Eduardo Ely on 03-13-2023 Platelet mean volume (Bld) [Entitic vol] 8.9 fL 6.2-12.0 [facility] Determination of erythrocyte mean corpuscular volume (MCV)Ordered By: Eduardo Ely on 03-13-2023 MCV (RBC) [Entitic vol] 95.4 fL 81-99 [facility] Direct bilirubinOrdered By: Eduardo Ely on 03-13-2023 Bilirubin.direct [Mass/Vol] 0.13 mg/dL 0.00-0.30 [facility] Hematocrit Auto (Bld) [Volum e fraction]Ordered By: Eduardo Ely on 03-13-2023 Hematocrit (Bld) [Volume fraction] 43.7 % 37-47 [facility] Ketones Test strip Ql (U)Ord ered By: Eduardo Ely on 03-13-2023 Ketones Ql (U) Negative Negative [facility] Laboratory - Chemistry and C hemistry - challengeOrdered By: Eduardo Ely on 03-13-2023 ALP [Catalytic activity/Vol] 69 U/L 45-117 [facility] ALT [Catalytic activity/Vol] 42 U/L 13-56 [facility] CO2 [Moles/Vol] 29.0 mmol/L 21.0-32.0 [facility] Globulin (S) [Mass/Vol] 3.5 g/dL 2.2-4.2 [facility] Lipase [Catalytic activity/Vol] 20 U/L 13-75 [facility] Comment on above: Please note:LIPASE r evised reference range effective 22. New Lipase methodology. Expected to produce lower values than the previous assay method. NEW Reference Range: 13 - 75 U/L Urea nitrogen/Creatinine [Mass ratio] 19.8 mg/mg 10-20 [facility] Laboratory - Hematology and Cell countsOrdered By: Eduardo Ely on 03-13-2023 Erythrocyte distribution width (RBC) [Entitic vol] 44.2 fL 35.1-43.9 [facility] Erythrocyte distribution width (RBC) [Ratio] 12.6 % 11.6-14.6 [facility] Immature granulocytes/100 WBC (Bld) 0.200 % 0.0-0.9 [facility] Comment on above: IG% - Immature Granu locytes (promyelocytes, myelocytes and metamyelocytes) > 1% indicates that a LEFT SHIFT is Present. MCH (RBC) [Entitic mass] 30.1 pg 27.0-32.0 [facility] Nucleated RBC/100 WBC (Bld) [Ratio] 0 % 0-5 [facility] MCHC Auto (RBC) [Mass/Vol]Or dered By: Eduardo Ely on 03-13-2023 MCHC (RBC) [Mass/Vol] 31.6 g/dL 32-36 [facility] Mucus LM Ql (Urine sed)Order ed By: Eduardo Ely on 03-13-2023 Mucus Ql (Urine sed) 0 SEEN /hpf [facility] Nitrite Test strip Ql (U)Ord ered By: Eduardo Ely on 03-13-2023 Nitrite Ql (U) Negative Negative [facility] No Panel InformationOrdered By: Eduardo Ely on 03-13-2023 Estimated Creatinine Clearance Calc 51.99 ml/min [facility] Estimated GFR (MDRD) Amer 71 mL/min >60 [facility] Comment on above: GFR Calc Estimated GFR (MDRD) Non-Af Amer 58 mL/min >60 [facility] Comment on above: Non- GFR Calc Platelets bldOrdered By: Robin Ely on 03-13-2023 Platelets (Bld) [#/Vol] 181 10*3/uL 150-450 [facility] Protein Test strip Ql (U)Ord ered By: Eduardo Ely on 03-13-2023 Protein Ql (U) 15 mg/dl Negative [facility] Serum or plasma albumin tino urement (mass/volume)Ordered By: Eduardo Ely on 03-13-2023 Albumin [Mass/Vol] 3.5 g/dL 3.2-5.0 [facility] Serum or plasma calcium tino urement (mass/volume)Ordered By: Eduardo Ely on 03-13-2023 Calcium [Mass/Vol] 9.1 mg/dL 8.5-10.1 [facility] Serum or plasma creatinine m easurement (mass/volume)Ordered By: Eduardo Ely on 03-13-2023 Creatinine [Mass/Vol] 1.01 mg/dL 0.55-1.02 [facility] Comment on above: The validity of the calculated GFR & GFRAA in patients over 70 years has not been determined. Clinical correlation is essential. Serum or plasma urea nitroge n measurement (mass/volume)Ordered By: Eduardo Ely on 03-13-2023 Urea nitrogen [Mass/Vol] 20 mg/dL 7-18 [facility] Squamous epithelial cells de tection in urine sediment by light microscopyOrdered By: Eduardo Ely on 03-13-2023 Epithelial cells.squamous LM Ql (Urine sed) 0-5 SEEN /hpf 5-10 [facility] Thin prep Papanicolaou smear with manual screeningOrdered By: Eduardo Ely on 03-13-2023 Thin prep Papanicolaou smear with manual screening 26 U/L 15-37 [facility] Thin prep Papanicolaou smear with manual screening 3 5-15 [facility] Urine blood detectionOrdered By: Eduardo Ely on 03-13-2023 RBC Ql (U) 10 /ul Negative [facility] RBC Ql (U) 0 SEEN /hpf 0-5 [facility] Urine clarityOrdered By: Robin Ely on 03-13-2023 Clarity (U) Clear Clear [facility] Urine color determinationOrd ered By: Eduardo Ely on 03-13-2023 Color (U) Yellow Yellow [facility] Urine glucose detectionOrder ed By: Eduardo Ely on 03-13-2023 Glucose Ql (U) Normal mg/dl Normal [facility] Urine leukocyte esterase det ection by dipstickOrdered By: Eduardo Ely on 03-13-2023 Leukocyte esterase Test strip Ql (U) 500 /ul Negative [facility] Urine pHOrdered By: Eduardo sultana on 03-13-2023 pH (U) 6.0 [pH] 5.0 - 8.0 [facility] Urine sediment bacteria coun t by microscopy (number/high power field)Ordered By: Eduardo Ely on 03-13-2023 Bacteria LM.HPF (Urine sed) [#/Area] 0 /[HPF] None Seen [facility] Urine specific gravity measu rementOrdered By: Eduardo Ely on 03-13-2023 Specific gravity (U) [Rel density] 1.015 1.002-1.03 0 [facility] Urobilinogen Auto test strip Ql (U)Ordered By: Eduardo Ely on 03-13-2023 Urobilinogen Ql (U) Normal mg/dl Normal [facility] LUIS SCREENINGon 02-23-2023 [facility] XR LUMBAR MOTION 4V AP/LAT/ FLEX/EXTon 02-23-2023 [facility] DXA-AXIAL SKELETONon 023 [facility] XR Sacrum and Coccyx 3 Views on 12-22-2022 IMPRESSION: No acute fracture or dislocation.. [employer]: [facility] Transcribe Date/Time: Dec 22 2022 11:09A Dictated by : ONOFRE GALLEGOS MD This examination was interpreted and the report reviewed and electronically signed by: ONOFRE GALLEGOS MD on Dec 22 2022 11:13AM [facility] DIVISION OF RADIOLOGY * * *Final Report* * * DATE OF EXAM: Dec 19 2022 2:55PM WOX [id number] - XR SACRUM/COCCYX 3V AP/LAT / PROCEDURE REASON: Coccyodynia * * * * Physician Interpretation * * * * EXAM(s): XR SACRUM/COCCYX 3V AP/LAT EXAM DATE/TIME: 12/19/2022 2:55 PM HISTORY: 67 years old Clinical information: Coccyodynia Hx of prior fracture, Centralized sacrum pain x 3 months without additional injury TECHNIQUE: Images: XR SACRUM/COCCYX 3V AP/LAT Comparison: None. RESULT: Findings: Bone density appears well-preserved. No fractures or dislocations are seen. Atherosclerotic calcifications of the abdominal aorta. DIVISION OF RADIOLOGY Provider, [facility] - 12/22/2022 * * *Final Report* * * DATE OF EXAM: Dec 19 2022 2:55PM WOX 5246 - XR SACRUM/COCCYX 3V AP/LAT / PROCEDURE REASON: Coccyodynia * * * * Physician Interpretation * * * * EXAM(s): XR SACRUM/COCCYX 3V AP/LAT EXAM DATE/TIME: 12/19/2022 2:55 PM HISTORY: 67 years old Clinical information: Coccyodynia Hx of prior fracture, Centralized sacrum pain x 3 months without additional injury TECHNIQUE: Images: XR SACRUM/COCCYX 3V AP/LAT Comparison: None. RESULT: Findings: Bone density appears well-preserved. No fractures or dislocations are seen. Atherosclerotic calcifications of the abdominal aorta. IMPRESSION IMPRESSION: No acute fracture or dislocation.. [employer] Transcribe Date/Time: Dec 22 2022 11:09A Dictated by : ONOFRE GALLEGOS MD This examination was interpreted and the report reviewed and electronically signed by: ONOFRE GALLEGOS MD on Dec 22 2022 11:13AM EST [facility] XR Sacrum and Coccyx 3 Views Ordered By: [facility] Provider on 12-22-2022 [facility] XR Sacrum and Coccyx 3 Views on 12-19-2022 Radiology Study observation (narrative) [facility] Absolute lymphocyte countOrd ered By: Dr. Walter on 11-16-2022 Lymphocytes Auto (Unsp spec) [#/Vol] 1.53 10*3/uL 0.83-4.51 [facility] Basophil percentageOrdered B y: Dr. Walter on 11-16-2022 Basophils/100 WBC (Bld) 1.0 % 0-1 [facility] Chloride [Moles/Vol] 105 mmol/L 98-107 [facility] Eosinophils/100 WBC (Bld) 1.6 % 0-5 [facility] Glucose [Mass/Vol] 88 mg/dL 74-106 [facility] Neutrophils (Bld) [#/Vol] 3.1 10*3/uL 2.0-7.7 [facility] Neutrophils/100 WBC (Bld) 60.6 % 47-70 [facility] Potassium [Moles/Vol] 3.9 mmol/L 3.5-5.1 [facility] Comment on above: Slight Hemolysis, Re sult may be falsely increased. Sodium [Moles/Vol] 142 mmol/L 136-145 [facility] WBC (Bld) [#/Vol] 5.1 10*3/uL 4.4-11.0 [facility] Basophil percentage 0 SEEN /hpf 0-5 [facility] Bilirubin Test strip Ql (U)O rdered By: Dr. Walter on 11-16-2022 Bilirubin Ql (U) Negative Negative [facility] Blood erythrocytes count (nu mber/volume)Ordered By: Dr. Walter on 11-16-2022 RBC (Bld) [#/Vol] 4.60 10*6/uL 4.2-5.4 [facility] Blood hemoglobin measurement (mass/volume)Ordered By: Dr. Walter on 11-16-2022 Hemoglobin (Bld) [Mass/Vol] 13.8 g/dL 12.0-15.0 [facility] Blood lymphocytes/100 leukoc ytesOrdered By: Dr. Walter on 11-16-2022 Lymphocytes/100 WBC (Bld) 29.8 % 19-41 [facility] Blood monocytes/100 leukocyt esOrdered By: Dr. Walter on 11-16-2022 Monocytes/100 WBC (Bld) 6.8 % 0-10 [facility] Blood platelet mean volumeOr dered By: Dr. Walter on 11-16-2022 Platelet mean volume (Bld) [Entitic vol] 8.7 fL 6.2-12.0 [facility] Determination of erythrocyte mean corpuscular volume (MCV)Ordered By: Dr. Walter on 11-16-2022 MCV (RBC) [Entitic vol] 93.7 fL 81-99 [facility] Hematocrit Auto (Bld) [Volum e fraction]Ordered By: Dr. Walter on 11-16-2022 Hematocrit (Bld) [Volume fraction] 43.1 % 37-47 [facility] Ketones Test strip Ql (U)Ord ered By: Dr. Walter on 11-16-2022 Ketones Ql (U) Negative Negative [facility] Laboratory - Chemistry and C hemistry - challengeOrdered By: Dr. Walter on 11-16-2022 CO2 [Moles/Vol] 31.0 mmol/L 21.0-32.0 [facility] Urea nitrogen/Creatinine [Mass ratio] 21.1 mg/mg 10-20 [facility] Laboratory - Hematology and Cell countsOrdered By: Dr. Walter on 11-16-2022 Erythrocyte distribution width (RBC) [Entitic vol] 46.4 fL 35.1-43.9 [facility] Erythrocyte distribution width (RBC) [Ratio] 13.5 % 11.6-14.6 [facility] Immature granulocytes/100 WBC (Bld) 0.200 % 0.0-0.9 [facility] Comment on above: IG% - Immature Granu locytes (promyelocytes, myelocytes and metamyelocytes) > 1% indicates that a LEFT SHIFT is Present. MCH (RBC) [Entitic mass] 30.0 pg 27.0-32.0 [facility] Nucleated RBC/100 WBC (Bld) [Ratio] 0 % 0-5 [facility] MCHC Auto (RBC) [Mass/Vol]Or dered By: Dr. Walter on 11-16-2022 MCHC (RBC) [Mass/Vol] 32.0 g/dL 32-36 [facility] Mucus LM Ql (Urine sed)Order ed By: Dr. Walter on 11-16-2022 Mucus Ql (Urine sed) 0 SEEN /hpf [facility] Nitrite Test strip Ql (U)Ord ered By: Dr. Walter on 11-16-2022 Nitrite Ql (U) Negative Negative [facility] No Panel InformationOrdered By: Dr. Walter on 11-16-2022 D-Dimer Quantitative (PE/DVT) 1.13 FEU/ug/m 0.27-0.49 [facility] Comment on above: D-Dimer ELEVATED (>0 .49): Additional studies and clinicalassessments are indicated to conclude diagnosis of:Deep Vein Thrombosis (DVT) or Pulmonary Embolism (PE)CRITICAL VALUE VERIFIED. CALLED TO [id number] Nidia Rodriguez.RESULTS READ BACK BY SAME . Estimated Creatinine Clearance Calc 44.43 ml/min [facility] Estimated GFR (MDRD) Amer 65 mL/min >60 [facility] Comment on above: GFR Calc Estimated GFR (MDRD) Non-Af Amer 54 mL/min >60 [facility] Comment on above: Non- GFR Calc Platelets bldOrdered By: Dr. Walter on 11-16-2022 Platelets (Bld) [#/Vol] 197 10*3/uL 150-450 [facility] Protein Test strip Ql (U)Ord ered By: Dr. Walter on 11-16-2022 Protein Ql (U) 15 mg/dl Negative [facility] Serum or plasma calcium tino urement (mass/volume)Ordered By: Dr. Walter on 11-16-2022 Calcium [Mass/Vol] 9.3 mg/dL 8.5-10.1 [facility] Serum or plasma creatinine m easurement (mass/volume)Ordered By: Dr. Walter on 11-16-2022 Creatinine [Mass/Vol] 1.09 mg/dL 0.55-1.02 [facility] Comment on above: The validity of the calculated GFR & GFRAA in patients over 70 years has not been determined. Clinical correlation is essential. Serum or plasma urea nitroge n measurement (mass/volume)Ordered By: Dr. Walter on 11-16-2022 Urea nitrogen [Mass/Vol] 23 mg/dL 7-18 [facility] Squamous epithelial cells de tection in urine sediment by light microscopyOrdered By: Dr. Walter on 11-16-2022 Epithelial cells.squamous LM Ql (Urine sed) 0 SEEN /hpf 5-10 [facility] Thin prep Papanicolaou smear with manual screeningOrdered By: Dr. Walter on 11-16-2022 Thin prep Papanicolaou smear with manual screening 6 5-15 [facility] Urine blood detectionOrdered By: Dr. Walter on 11-16-2022 RBC Ql (U) 10 /ul Negative [facility] RBC Ql (U) 0 SEEN /hpf 0-5 [facility] Urine clarityOrdered By: Dr. Walter on 11-16-2022 Clarity (U) Sl. Cloudy Clear [facility] Urine color determinationOrd ered By: Dr. Walter on 11-16-2022 Color (U) Yellow Yellow [facility] Urine glucose detectionOrder ed By: Dr. Walter on 11-16-2022 Glucose Ql (U) Normal mg/dl Normal [facility] Urine leukocyte esterase det ection by dipstickOrdered By: Dr. Walter on 11-16-2022 Leukocyte esterase Test strip Ql (U) Negative Negative [facility] Urine pHOrdered By: Dr. Thanh field on 11-16-2022 pH (U) 6.0 [pH] 5.0 - 8.0 [facility] Urine sediment bacteria coun t by microscopy (number/high power field)Ordered By: Dr. Walter on 11-16-2022 Bacteria LM.HPF (Urine sed) [#/Area] 0 /[HPF] None Seen [facility] Urine specific gravity measu rementOrdered By: Dr. Walter on 11-16-2022 Specific gravity (U) [Rel density] 1.025 1.002-1.03 0 [facility] Urobilinogen Auto test strip Ql (U)Ordered By: Dr. Walter on 11-16-2022 Urobilinogen Ql (U) Normal mg/dl Normal [facility] UA DIP, URINE (POC)on 2022 BILIRUBIN UA (POCT) Negative Negative [facility] CLARITY UA (POCT) Clear [facility] COLOR UA (POCT) Yellow [facility] GLUCOSE UA (POCT) Negative Negative mg/dL [facility] HEMOGLOBIN/BLOOD UA (POCT) Negative Negative [facility] KETONE UA (POCT) Negative Negative mg/dL [facility] LEUKOCYTES UA (POCT) Trace Abnormal Negative [facility] NITRITE UA (POCT) Negative Negative [facility] PH UA (POCT) 6.5 4.5 - 8.0 [facility] Protein Ql (U) Negative Negative mg/dL [facility] SPECIFIC GRAVITY UA (POCT) 1.020 1.005 - 1.030 [facility] UROBILINOGEN UA (POCT) 0.2 E.U./dL Elizabeth l E.U./dL [facility] No Panel InformationOrdered By: Kunal Bray on 11-03-2022 Troponin I High Sensitivity 20 pg/mL 3.0-54.0 [facility] Comment on above: Please Note: New Lyly t Units and Gender Specific Reference Ranges. For more information see Policy Stat Procedure [place] High Sensitivity Troponin (TNIH) and attachments. Absolute lymphocyte countOrd ered By: Kunal Bray on 11-02-2022 Lymphocytes Auto (Unsp spec) [#/Vol] 1.22 10*3/uL 0.83-4.51 [facility] Basophil percentageOrdered B y: Kunal Bray on 11-02-2022 Basophils/100 WBC (Bld) 0.5 % 0-1 [facility] Bilirubin [Mass/Vol] 0.50 mg/dL 0.20-1.00 [facility] Comment on above: For patients on eltr ombopag therapy, use of Dimension [place] TBIL is not recommended. Chloride [Moles/Vol] 108 mmol/L 98-107 [facility] Eosinophils/100 WBC (Bld) 1.0 % 0-5 [facility] Glucose [Mass/Vol] 109 mg/dL 74-106 [facility] Comment on above: Fasting Glucose resu lt from 100 to 125 mg/dL suggests IMPAIRED HOMEOSTASIS per A.D.A. criteria. Neutrophils (Bld) [#/Vol] 5.7 10*3/uL 2.0-7.7 [facility] Neutrophils/100 WBC (Bld) 78.1 % 47-70 [facility] Potassium [Moles/Vol] 3.4 mmol/L 3.5-5.1 [facility] Protein [Mass/Vol] 8.2 g/dL 6.4-8.2 [facility] Sodium [Moles/Vol] 142 mmol/L 136-145 [facility] WBC (Bld) [#/Vol] 7.4 10*3/uL 4.4-11.0 [facility] Blood erythrocytes count (nu mber/volume)Ordered By: Kunal Bray on 11-02-2022 RBC (Bld) [#/Vol] 5.05 10*6/uL 4.2-5.4 [facility] Blood hemoglobin measurement (mass/volume)Ordered By: Kunal Bray on 11-02-2022 Hemoglobin (Bld) [Mass/Vol] 15.3 g/dL 12.0-15.0 [facility] Blood lymphocytes/100 leukoc ytesOrdered By: Kunal Bray on 11-02-2022 Lymphocytes/100 WBC (Bld) 16.6 % 19-41 [facility] Blood monocytes/100 leukocyt esOrdered By: Kunal Bray on 11-02-2022 Monocytes/100 WBC (Bld) 3.5 % 0-10 [facility] Blood platelet mean volumeOr dered By: Kunal Bray on 11-02-2022 Platelet mean volume (Bld) [Entitic vol] 9.2 fL 6.2-12.0 [facility] Determination of erythrocyte mean corpuscular volume (MCV)Ordered By: Kunal Bray on 11-02-2022 MCV (RBC) [Entitic vol] 91.7 fL 81-99 [facility] Direct bilirubinOrdered By: Kunal Bray on 11-02-2022 Bilirubin.direct [Mass/Vol] 0.20 mg/dL 0.00-0.30 [facility] Hematocrit Auto (Bld) [Volum e fraction]Ordered By: Kunal Bray on 11-02-2022 Hematocrit (Bld) [Volume fraction] 46.3 % 37-47 [facility] Laboratory - Chemistry and C hemistry - challengeOrdered By: Kunal Bray on 11-02-2022 ALP [Catalytic activity/Vol] 78 U/L 45-117 [facility] ALT [Catalytic activity/Vol] 33 U/L 13-56 [facility] CO2 [Moles/Vol] 26.0 mmol/L 21.0-32.0 [facility] Globulin (S) [Mass/Vol] 4.0 g/dL 2.2-4.2 [facility] Lipase [Catalytic activity/Vol] 21 U/L 13-75 [facility] Comment on above: Please note:LIPASE r evised reference range effective 22. New Lipase methodology. Expected to produce lower values than the previous assay method. NEW Reference Range: 13 - 75 U/L Magnesium [Mass/Vol] 2.2 mg/dL 1.6-2.6 [facility] Urea nitrogen/Creatinine [Mass ratio] 13.9 mg/mg 10-20 [facility] Laboratory - Hematology and Cell countsOrdered By: Kunal Bray on 11-02-2022 Erythrocyte distribution width (RBC) [Entitic vol] 44.9 fL 35.1-43.9 [facility] Erythrocyte distribution width (RBC) [Ratio] 13.3 % 11.6-14.6 [facility] Immature granulocytes/100 WBC (Bld) 0.300 % 0.0-0.9 [facility] Comment on above: IG% - Immature Granu locytes (promyelocytes, myelocytes and metamyelocytes) > 1% indicates that a LEFT SHIFT is Present. MCH (RBC) [Entitic mass] 30.3 pg 27.0-32.0 [facility] Nucleated RBC/100 WBC (Bld) [Ratio] 0 % 0-5 [facility] MCHC Auto (RBC) [Mass/Vol]Or dered By: Kunal Bray on 11-02-2022 MCHC (RBC) [Mass/Vol] 33.0 g/dL 32-36 [facility] No Panel InformationOrdered By: Kunal Bray on 11-02-2022 D-Dimer Quantitative (PE/DVT) 1.43 FEU/ug/m 0.27-0.49 [facility] Comment on above: D-Dimer ELEVATED (>0 .49): Additional studies and clinicalassessments are indicated to conclude diagnosis of:Deep Vein Thrombosis (DVT) or Pulmonary Embolism (PE)CRITICAL VALUE VERIFIED. CALLED TO Sumaya VASQUEZ RN [id number]/03/[id number] 003Jeremías Bryson.RESULTS READ BACK BY SAME. Estimated Creatinine Clearance Calc 44.71 ml/min [facility] Estimated GFR (MDRD) Amer 57 mL/min >60 [facility] Comment on above: GFR Calc Estimated GFR (MDRD) Non-Af Amer 47 mL/min >60 [facility] Comment on above: Non- GFR Calc Platelets bldOrdered By: Chong Bray on 11-02-2022 Platelets (Bld) [#/Vol] 221 10*3/uL 150-450 [facility] Serum or plasma albumin tino urement (mass/volume)Ordered By: Kunal Bray on 11-02-2022 Albumin [Mass/Vol] 4.2 g/dL 3.2-5.0 [facility] Serum or plasma calcium tino urement (mass/volume)Ordered By: Kunal Bray on 11-02-2022 Calcium [Mass/Vol] 9.4 mg/dL 8.5-10.1 [facility] Serum or plasma creatinine m easurement (mass/volume)Ordered By: Kunal Bray on 11-02-2022 Creatinine [Mass/Vol] 1.22 mg/dL 0.55-1.02 [facility] Comment on above: The validity of the calculated GFR & GFRAA in patients over 70 years has not been determined. Clinical correlation is essential. Serum or plasma urea nitroge n measurement (mass/volume)Ordered By: Kunal Bray on 11-02-2022 Urea nitrogen [Mass/Vol] 17 mg/dL 7-18 [facility] Thin prep Papanicolaou smear with manual screeningOrdered By: Kunal Bray on 11-02-2022 Thin prep Papanicolaou smear with manual screening 27 U/L 15-37 [facility] Thin prep Papanicolaou smear with manual screening 8 5-15 [facility] Absolute lymphocyte countOrd ered By: Dr. Britt on 10-21-2022 Lymphocytes Auto (Unsp spec) [#/Vol] 1.39 10*3/uL 0.83-4.51 [facility] Basophil percentageOrdered B y: Dr. Britt on 10-21-2022 Basophil percentage 0 SEEN /hpf 0-5 [facility] Basophils/100 WBC (Bld) 0.8 % 0-1 [facility] Chloride [Moles/Vol] 106 mmol/L 98-107 [facility] Eosinophils/100 WBC (Bld) 2.2 % 0-5 [facility] Glucose [Mass/Vol] 92 mg/dL 74-106 [facility] Neutrophils (Bld) [#/Vol] 1.8 10*3/uL 2.0-7.7 [facility] Neutrophils/100 WBC (Bld) 51.4 % 47-70 [facility] Potassium [Moles/Vol] 4.5 mmol/L 3.5-5.1 [facility] Sodium [Moles/Vol] 140 mmol/L 136-145 [facility] WBC (Bld) [#/Vol] 3.6 10*3/uL 4.4-11.0 [facility] Bilirubin Test strip Ql (U)O rdered By: Dr. Britt on 10-21-2022 Bilirubin Ql (U) Negative Negative [facility] Blood erythrocytes count (nu mber/volume)Ordered By: Dr. Britt on 10-21-2022 RBC (Bld) [#/Vol] 4.59 10*6/uL 4.2-5.4 [facility] Blood hemoglobin measurement (mass/volume)Ordered By: Dr. Britt on 10-21-2022 Hemoglobin (Bld) [Mass/Vol] 13.7 g/dL 12.0-15.0 [facility] Blood lymphocytes/100 leukoc ytesOrdered By: Dr. Britt on 10-21-2022 Lymphocytes/100 WBC (Bld) 38.9 % 19-41 [facility] Blood monocytes/100 leukocyt esOrdered By: Dr. Britt on 10-21-2022 Monocytes/100 WBC (Bld) 6.4 % 0-10 [facility] Blood platelet mean volumeOr dered By: Dr. Britt on 10-21-2022 Platelet mean volume (Bld) [Entitic vol] 9.2 fL 6.2-12.0 [facility] Determination of erythrocyte mean corpuscular volume (MCV)Ordered By: Dr. Britt on 10-21-2022 MCV (RBC) [Entitic vol] 91.5 fL 81-99 [facility] Hematocrit Auto (Bld) [Volum e fraction]Ordered By: Dr. Britt on 10-21-2022 Hematocrit (Bld) [Volume fraction] 42.0 % 37-47 [facility] Ketones Test strip Ql (U)Ord ered By: Dr. Britt on 10-21-2022 Ketones Ql (U) Negative Negative [facility] Laboratory - Chemistry and C hemistry - challengeOrdered By: Dr. Britt on 10-21-2022 CO2 [Moles/Vol] 32.0 mmol/L 21.0-32.0 [facility] Urea nitrogen/Creatinine [Mass ratio] 22.4 mg/mg 10-20 [facility] Laboratory - Hematology and Cell countsOrdered By: Dr. Britt on 10-21-2022 Erythrocyte distribution width (RBC) [Entitic vol] 44.7 fL 35.1-43.9 [facility] Erythrocyte distribution width (RBC) [Ratio] 13.3 % 11.6-14.6 [facility] Immature granulocytes/100 WBC (Bld) 0.300 % 0.0-0.9 [facility] Comment on above: IG% - Immature Granu locytes (promyelocytes, myelocytes and metamyelocytes) > 1% indicates that a LEFT SHIFT is Present. MCH (RBC) [Entitic mass] 29.8 pg 27.0-32.0 [facility] Nucleated RBC/100 WBC (Bld) [Ratio] 0 % 0-5 [facility] MCHC Auto (RBC) [Mass/Vol]Or dered By: Dr. Britt on 10-21-2022 MCHC (RBC) [Mass/Vol] 32.6 g/dL 32-36 [facility] Mucus LM Ql (Urine sed)Order ed By: Dr. Britt on 10-21-2022 Mucus Ql (Urine sed) 0 SEEN /hpf [facility] Nitrite Test strip Ql (U)Ord ered By: Dr. Britt on 10-21-2022 Nitrite Ql (U) Negative Negative [facility] No Panel InformationOrdered By: Dr. Britt on 10-21-2022 Estimated Creatinine Clearance Calc 49.07 ml/min [facility] Estimated GFR (MDRD) Amer 66 mL/min >60 [facility] Comment on above: GFR Calc Estimated GFR (MDRD) Non-Af Amer 55 mL/min >60 [facility] Comment on above: Non- GFR Calc Platelets bldOrdered By: Dr. Britt on 10-21-2022 Platelets (Bld) [#/Vol] 186 10*3/uL 150-450 [facility] Protein Test strip Ql (U)Ord ered By: Dr. Britt on 10-21-2022 Protein Ql (U) Negative Negative [facility] Serum or plasma calcium tino urement (mass/volume)Ordered By: Dr. Britt on 10-21-2022 Calcium [Mass/Vol] 9.2 mg/dL 8.5-10.1 [facility] Serum or plasma creatinine m easurement (mass/volume)Ordered By: Dr. Britt on 10-21-2022 Creatinine [Mass/Vol] 1.07 mg/dL 0.55-1.02 [facility] Comment on above: The validity of the calculated GFR & GFRAA in patients over 70 years has not been determined. Clinical correlation is essential. Serum or plasma urea nitroge n measurement (mass/volume)Ordered By: Dr. Britt on 10-21-2022 Urea nitrogen [Mass/Vol] 24 mg/dL 7-18 [facility] Squamous epithelial cells de tection in urine sediment by light microscopyOrdered By: Dr. Britt on 10-21-2022 Epithelial cells.squamous LM Ql (Urine sed) 0 SEEN /hpf 5-10 [facility] Thin prep Papanicolaou smear with manual screeningOrdered By: Dr. Britt on 10-21-2022 Thin prep Papanicolaou smear with manual screening 2 5-15 [facility] Urine blood detectionOrdered By: Dr. Britt on 10-21-2022 RBC Ql (U) Negative Negative [facility] RBC Ql (U) 0 SEEN /hpf 0-5 [facility] Urine clarityOrdered By: Dr. Britt on 10-21-2022 Clarity (U) Clear Clear [facility] Urine color determinationOrd ered By: Dr. Britt on 10-21-2022 Color (U) Straw Yellow [facility] Urine glucose detectionOrder ed By: Dr. Britt on 10-21-2022 Glucose Ql (U) Normal mg/dl Normal [facility] Urine leukocyte esterase det ection by dipstickOrdered By: Dr. Britt on 10-21-2022 Leukocyte esterase Test strip Ql (U) Negative Negative [facility] Urine pHOrdered By: Dr. Dorian cazares on 10-21-2022 pH (U) 7.0 [pH] 5.0 - 8.0 [facility] Urine sediment bacteria coun t by microscopy (number/high power field)Ordered By: Dr. Britt on 10-21-2022 Bacteria LM.HPF (Urine sed) [#/Area] 0 /[HPF] None Seen [facility] Urine specific gravity measu rementOrdered By: Dr. Britt on 10-21-2022 Specific gravity (U) [Rel density] 1.010 1.002-1.03 0 [facility] Urobilinogen Auto test strip Ql (U)Ordered By: Dr. Britt on 10-21-2022 Urobilinogen Ql (U) Normal mg/dl Normal [facility] Influenza virus A and B and SARS-CoV-2 (COVID-19) Ag panel - Upper respiratory specimOrdered By: Lili Roque on 09-03-2022 SARS-CoV-2 (COVID-19) RNA KEN+probe Ql (Resp) [facility] Influenza virus A and B and SARS-CoV-2 (COVID-19) Ag panel - Upper respiratory specimOrdered By: Dr. Roque on 09-03-2022 SARS-CoV-2 (COVID-19) RNA KEN+probe Ql (Resp) [facility] Absolute lymphocyte countOrd ered By: Dr. Gannon on 06-08-2022 Lymphocytes Auto (Unsp spec) [#/Vol] 1.16 10*3/uL 0.83-4.51 [facility] Basophil percentageOrdered B y: Dr. Gannon on 06-08-2022 Basophils/100 WBC (Bld) 1.0 % 0-1 [facility] Bilirubin [Mass/Vol] 0.40 mg/dL 0.20-1.00 [facility] Comment on above: For patients on eltr ombopag therapy, use of Dimension [place] TBIL is not recommended. Chloride [Moles/Vol] 110 mmol/L 98-107 [facility] Cholesterol [Mass/Vol] 137 mg/dL <200 [facility] Comment on above: <200 mg/dL Desirable 200-240 mg/dL Borderline >240 mg/dL High Risk Eosinophils/100 WBC (Bld) 3.4 % 0-5 [facility] Glucose [Mass/Vol] 126 mg/dL 74-106 [facility] Comment on above: Fasting Glucose resu lt greater than or equal to 126 mg/dL suggests DIABETES MELLITUS per A.D.A. criteria. Neutrophils (Bld) [#/Vol] 1.4 10*3/uL 2.0-7.7 [facility] Neutrophils/100 WBC (Bld) 47.7 % 47-70 [facility] Potassium [Moles/Vol] 3.6 mmol/L 3.5-5.1 [facility] Protein [Mass/Vol] 6.4 g/dL 6.4-8.2 [facility] Sodium [Moles/Vol] 140 mmol/L 136-145 [facility] Triglyceride [Mass/Vol] 128 mg/dL <199 [facility] Comment on above: The drugs N-Acetylcy steine and Metamizole may falsely depress this assay.Serum Triglycerides Reference Interval Normal <150 mg/dL Borderline high 150 - 199 mg/dL High 200 - 499 mg/dL Very High > or = 500 mg/dL WBC (Bld) [#/Vol] 3.0 10*3/uL 4.4-11.0 [facility] Blood erythrocytes count (nu mber/volume)Ordered By: Dr. Gannon on 06-08-2022 RBC (Bld) [#/Vol] 4.40 10*6/uL 4.2-5.4 [facility] Blood hemoglobin measurement (mass/volume)Ordered By: Dr. Gannon on 06-08-2022 Hemoglobin (Bld) [Mass/Vol] 13.1 g/dL 12.0-15.0 [facility] Blood lymphocytes/100 leukoc ytesOrdered By: Dr. Gannon on 06-08-2022 Lymphocytes/100 WBC (Bld) 39.1 % 19-41 [facility] Blood monocytes/100 leukocyt esOrdered By: Dr. Gannon on 06-08-2022 Monocytes/100 WBC (Bld) 8.8 % 0-10 [facility] Blood platelet mean volumeOr dered By: Dr. Gannon on 06-08-2022 Platelet mean volume (Bld) [Entitic vol] 8.9 fL 6.2-12.0 [facility] Determination of erythrocyte mean corpuscular volume (MCV)Ordered By: Dr. Gannon on 06-08-2022 MCV (RBC) [Entitic vol] 90.5 fL 81-99 [facility] Hematocrit Auto (Bld) [Volum e fraction]Ordered By: Dr. Gannon on 06-08-2022 Hematocrit (Bld) [Volume fraction] 39.8 % 37-47 [facility] Laboratory - Chemistry and C hemistry - challengeOrdered By: Dr. Gannon on 06-08-2022 ALP [Catalytic activity/Vol] 56 U/L 45-117 [facility] ALT [Catalytic activity/Vol] 70 U/L 13-56 [facility] CO2 [Moles/Vol] 26.0 mmol/L 21.0-32.0 [facility] Globulin (S) [Mass/Vol] 3.2 g/dL 2.2-4.2 [facility] Urea nitrogen/Creatinine [Mass ratio] 18.5 mg/mg 10-20 [facility] Laboratory - Hematology and Cell countsOrdered By: Dr. Gannon on 06-08-2022 Erythrocyte distribution width (RBC) [Entitic vol] 41.0 fL 35.1-43.9 [facility] Erythrocyte distribution width (RBC) [Ratio] 12.4 % 11.6-14.6 [facility] Immature granulocytes/100 WBC (Bld) 0.000 % 0.0-0.9 [facility] Comment on above: IG% - Immature Granu locytes (promyelocytes, myelocytes and metamyelocytes) > 1% indicates that a LEFT SHIFT is Present. MCH (RBC) [Entitic mass] 29.8 pg 27.0-32.0 [facility] Nucleated RBC/100 WBC (Bld) [Ratio] 0 % 0-5 [facility] MCHC Auto (RBC) [Mass/Vol]Or dered By: Dr. Gannon on 06-08-2022 MCHC (RBC) [Mass/Vol] 32.9 g/dL 32-36 [facility] No Panel InformationOrdered By: Dr. Gannon on 06-08-2022 Estimated Creatinine Clearance Calc 65.69 ml/min [facility] Estimated GFR (MDRD) Amer 91 mL/min >60 [facility] Comment on above: GFR Calc Estimated GFR (MDRD) Non-Af Amer 75 mL/min >60 [facility] Comment on above: Non- GFR Calc Thyroid Stimulating Hormone (TSH) 0.77 uIU/mL 0.358-3.74 [facility] Platelets bldOrdered By: Dr. Gannon on 06-08-2022 Platelets (Bld) [#/Vol] 178 10*3/uL 150-450 [facility] Serum or plasma albumin tino urement (mass/volume)Ordered By: Dr. Gannon on 06-08-2022 Albumin [Mass/Vol] 3.2 g/dL 3.2-5.0 [facility] Serum or plasma albumin/glob ulin mass ratioOrdered By: Dr. Gannon on 06-08-2022 Albumin/Globulin [Mass ratio] 1.0 {ratio} 0.9-2.4 [facility] Serum or plasma calcium tino urement (mass/volume)Ordered By: Dr. Gannon on 06-08-2022 Calcium [Mass/Vol] 8.4 mg/dL 8.5-10.1 [facility] Serum or plasma cholesterol in HDL measurement (mass/volume)Ordered By: Dr. Gannon on 06-08-2022 Cholesterol in HDL [Mass/Vol] 61 mg/dL >40 [facility] Comment on above: The drugs N-Acetylcy steine and Metamizole may falsely depress this assay. Reference Range HDL <40 mg/dL Low HDL Cholesterol HDL >or= 60 mg/dL High HDL Cholesterol Serum or plasma cholesterol in VLDL measurement (mass/volume)Ordered By: Dr. Gannon on 06-08-2022 Cholesterol in VLDL [Mass/Vol] 26 mg/dL 5-40 [facility] Serum or plasma creatinine m easurement (mass/volume)Ordered By: Dr. Gannon on 06-08-2022 Creatinine [Mass/Vol] 0.81 mg/dL 0.55-1.02 [facility] Comment on above: The validity of the calculated GFR & GFRAA in patients over 70 years has not been determined. Clinical correlation is essential. Serum or plasma low density lipoprotein (LDL) cholesterol measurement (mass/volume)Ordered By: Dr. Gannon on 06-08-2022 Cholesterol in LDL [Mass/Vol] 50 mg/dL 0-130 [facility] Serum or plasma urea nitroge n measurement (mass/volume)Ordered By: Dr. Gannon on 06-08-2022 Urea nitrogen [Mass/Vol] 15 mg/dL 7-18 [facility] Thin prep Papanicolaou smear with manual screeningOrdered By: Dr. Gannon on 06-08-2022 Thin prep Papanicolaou smear with manual screening 48 U/L 15-37 [facility] [facility] [place] Thin prep Papanicolaou smear with manual screening 4 5-15 [facility] Whole blood hemoglobin A1c/t otal hemoglobin ratio (mass fraction)Ordered By: Dr. Gannon on 06-08-2022 HbA1c (Bld) [Mass fraction] 5.5 % 3.8-5.6 [facility] Comment on above: Normal < 5.7 % Predi abetic 5.7 - 6.4 % Diabetic >or= 6.5 % Please note range changes. INR in Blood by Coagulation assayOrdered By: ED PROVIDER on 06-07-2022 INR Coag (Bld) [Relative time] 1.0 {INR} [facility] Laboratory - Chemistry and C hemistry - challengeOrdered By: Dr. Gannon on 06-07-2022 Magnesium [Mass/Vol] 2.2 mg/dL 1.6-2.6 [facility] Laboratory - CoagulationOrde red By: ED PROVIDER on 06-07-2022 aPTT Coag (Bld) [Time] 28.7 s 24.1-36.2 [facility] PT Coag (PPP) [Time] 12.8 s 11.7-14.9 [facility] No Panel InformationOrdered By: Dr. Gannon on 06-07-2022 Troponin I High Sensitivity 6 pg/mL 3.0-54.0 [facility] Comment on above: Please Note: New Lyly t Units and Gender Specific Reference Ranges. For more information see Policy Stat Procedure [place] High Sensitivity Troponin (TNIH) and attachments. Basophil percentageon 2021 Bilirubin [Mass/Vol] 0.40 mg/dL 0.20-1.00 [facility] Work Phone: Comment on above: For patients on eltr ombopag therapy, use of Dimension [place] TBIL is not recommended. Chloride [Moles/Vol] 105 mmol/L 98-[address] [facility] [place] Work Phone: [phone] Glucose [Mass/Vol] 91 mg/dL 74-106 [facility] Work Phone: [phone] Potassium [Moles/Vol] 4.2 mmol/L 3.5-5.1 [facility] [place] Work Phone: [phone] Protein [Mass/Vol] 6.7 g/dL 6.4-8.2 [facility] Work Phone: [phone] Sodium [Moles/Vol] 141 mmol/L 136-145 [facility] Work Phone: [phone] Laboratory - Chemistry and C hemistry - challengeon 12-27-2021 ALP [Catalytic activity/Vol] 61 U/L 45-117 [facility] Work Phone: [phone] ALT [Catalytic activity/Vol] 32 U/L 13-56 [facility] Work Phone: [phone] CO2 [Moles/Vol] 32.0 mmol/L 21.0-32.0 [facility] Work Phone: [phone] Globulin (S) [Mass/Vol] 3.3 g/dL 2.2-4.2 [facility] Work Phone: [phone] Urea nitrogen/Creatinine [Mass ratio] 14.4 mg/mg 10-20 [facility] Work Phone: [phone] No Panel Informationon 12-27 Estimated GFR (MDRD) Amer 74 mL/min >60 [facility] Work Phone: Comment on above: GFR Calc Estimated GFR (MDRD) Non-Af Amer 61 mL/min >60 [facility] Work Phone: Comment on above: Non- GFR Calc Thyroid Stimulating Hormone (TSH) 1.41 uIU/mL 0.358-3.74 [facility] Work Phone: [phone] Serum or plasma albumin tino urement (mass/volume)on 12-27-2021 Albumin [Mass/Vol] 3.4 g/dL 3.2-5.0 [facility] Work Phone: Serum or plasma albumin/glob ulin mass ratioon 12-27-2021 Albumin/Globulin [Mass ratio] 1.0 {ratio} 0.9-2.4 [facility] Work Phone: Serum or plasma calcium tino urement (mass/volume)on 12-27-2021 Calcium [Mass/Vol] 8.8 mg/dL 8.5-10.1 [facility]: [phone] Serum or plasma creatinine m easurement (mass/volume)on 12-27-2021 Creatinine [Mass/Vol] 0.97 mg/dL 0.55-1.02 [facility] Work Phone: Comment on above: The validity of the calculated GFR & GFRAA in patients over 70 years has not been determined. Clinical correlation is essential. Serum or plasma urea nitroge n measurement (mass/volume)on 12-27-2021 Urea nitrogen [Mass/Vol] 14 mg/dL 7-18 [facility] Work Phone: Thin prep Papanicolaou smear with manual screeningon 12-27-2021 Thin prep Papanicolaou smear with manual screening 24 U/L 15-37 [facility] Work Phone: Thin prep Papanicolaou smear with manual screening 4 5-15 [facility] Work Phone: Absolute lymphocyte counton 12-13-2021 Lymphocytes Auto (Unsp spec) [#/Vol] 1.25 10*3/uL 0.83-4.51 [facility] Work Phone: Basophil percentageon 2021 Basophils/100 WBC (Bld) 1.0 % 0-1 [facility] Work Phone: Bilirubin [Mass/Vol] 0.20 mg/dL 0.20-1.00 [facility] Work Phone: Comment on above: For patients on eltr ombopag therapy, use of Dimension [place] TBIL is not recommended. Chloride [Moles/Vol] 110 mmol/L 98-107 [facility] Work Phone: Eosinophils/100 WBC (Bld) 3.2 % 0-5 [facility] Work Phone: Glucose [Mass/Vol] 89 mg/dL 74-106 [facility] Work Phone: Neutrophils (Bld) [#/Vol] 1.5 10*3/uL 2.0-7.7 [facility] Work Phone: Neutrophils/100 WBC (Bld) 46.4 % 47-70 [facility] Work Phone: Potassium [Moles/Vol] 4.7 mmol/L 3.5-5.1 [facility] Work Phone: Protein [Mass/Vol] 5.8 g/dL 6.4-8.2 [facility] Work Phone: Sodium [Moles/Vol] 141 mmol/L 136-145 [facility] Work Phone: WBC (Bld) [#/Vol] 3.1 10*3/uL 4.4-11.0 [facility] Work Phone: Blood erythrocytes count (nu mber/volume)on 12-13-2021 RBC (Bld) [#/Vol] 3.80 10*6/uL 4.2-5.4 [facility]: Blood hemoglobin measurement (mass/volume)on 12-13-2021 Hemoglobin (Bld) [Mass/Vol] 11.4 g/dL 12.0-15.0 [facility] Work Phone: Blood lymphocytes/100 leukoc yteson 12-13-2021 Lymphocytes/100 WBC (Bld) 40.1 % 19-41 [facility] Work Phone: Blood monocytes/100 leukocyt eson 12-13-2021 Monocytes/100 WBC (Bld) 9.0 % 0-10 [facility] Work Phone: Blood platelet mean volumeon 12-13-2021 Platelet mean volume (Bld) [Entitic vol] 9.4 fL 6.2-12.0 [facility] Work Phone: [phone] Determination of erythrocyte mean corpuscular volume (MCV)on 12-13-2021 MCV (RBC) [Entitic vol] 93.7 fL 81-99 [facility] Work Phone: Hematocrit Auto (Bld) [Volum e fraction]on 12-13-2021 Hematocrit (Bld) [Volume fraction] 35.6 % 37-47 [facility] Work Phone: [phone] Laboratory - Chemistry and C hemistry - challengeon 12-13-2021 ALP [Catalytic activity/Vol] 56 U/L 45-117 [facility] Work Phone: ALT [Catalytic activity/Vol] 25 U/L 13-56 [facility] Work Phone: CO2 [Moles/Vol] 28.0 mmol/L 21.0-32.0 [facility] Work Phone: [phone] Globulin (S) [Mass/Vol] 3.0 g/dL 2.2-4.2 [facility] Work Phone: [phone] Urea nitrogen/Creatinine [Mass ratio] 22.2 mg/mg 10-20 [facility] Work Phone: Laboratory - Hematology and Cell countson 12-13-2021 Erythrocyte distribution width (RBC) [Entitic vol] 45.4 fL 35.1-43.9 [facility] Work Phone: [phone] Erythrocyte distribution width (RBC) [Ratio] 13.2 % 11.6-14.6 [facility] Work Phone: [phone] Immature granulocytes/100 WBC (Bld) 0.300 % 0.0-0.9 [facility] Work Phone: [phone] Comment on above: IG% - Immature Granu locytes (promyelocytes, myelocytes and metamyelocytes) > 1% indicates that a LEFT SHIFT is Present. MCH (RBC) [Entitic mass] 30.0 pg 27.0-32.0 [facility] Work Phone: Nucleated RBC/100 WBC (Bld) [Ratio] 0 % 0-5 [facility] Work Phone: MCHC Auto (RBC) [Mass/Vol]on 12-13-2021 MCHC (RBC) [Mass/Vol] 32.0 g/dL 32-36 [facility] Work Phone: No Panel Informationon 12-13 Estimated Creatinine Clearance Calc 53.74 ml/min [facility] Work Phone: Estimated GFR (MDRD) Amer 72 mL/min >60 [facility] Work Phone: Comment on above: GFR Calc Estimated GFR (MDRD) Non-Af Amer 60 mL/min >60 [facility] Work Phone: Comment on above: Non- GFR Calc Platelets bldon 12-13-2021 Platelets (Bld) [#/Vol] 205 10*3/uL 150-450 [facility] Work Phone: Serum or plasma albumin tino urement (mass/volume)on 12-13-2021 Albumin [Mass/Vol] 2.8 g/dL 3.2-5.0 [facility] Work Phone: Serum or plasma albumin/glob ulin mass ratioon 12-13-2021 Albumin/Globulin [Mass ratio] 0.9 {ratio} 0.9-2.4 [facility] Work Phone: Serum or plasma calcium tino urement (mass/volume)on 12-13-2021 Calcium [Mass/Vol] 8.6 mg/dL 8.5-10.1 [facility] Work Phone: Serum or plasma creatinine m easurement (mass/volume)on 12-13-2021 Creatinine [Mass/Vol] 0.99 mg/dL 0.55-1.02 [facility] Work Phone: Comment on above: The validity of the calculated GFR & GFRAA in patients over 70 years has not been determined. Clinical correlation is essential. Serum or plasma urea nitroge n measurement (mass/volume)on 12-13-2021 Urea nitrogen [Mass/Vol] 22 mg/dL 7-18 [facility] Work Phone: Thin prep Papanicolaou smear with manual screeningon 12-13-2021 Thin prep Papanicolaou smear with manual screening 21 U/L 15-37 [facility] Work Phone: Thin prep Papanicolaou smear with manual screening 3 5-15 [facility] Work Phone: Whole blood hemoglobin A1c/t otal hemoglobin ratio (mass fraction)on 12-13-2021 HbA1c (Bld) [Mass fraction] 5.4 % 3.8-5.6 [facility] Work Phone: [phone] Comment on above: Normal < 5.7 % Predi abetic 5.7 - 6.4 % Diabetic >or= 6.5 % Please note range changes. Absolute lymphocyte counton 12-12-2021 Lymphocytes Auto (Unsp spec) [#/Vol] 1.28 10*3/uL 0.83-4.51 [facility] Work Phone: Basophil percentageon 2021 Basophils/100 WBC (Bld) 1.0 % 0-1 [facility] Work Phone: Chloride [Moles/Vol] 109 mmol/L 98-107 [facility] Work Phone: Eosinophils/100 WBC (Bld) 2.5 % 0-5 [facility] Work Phone: Glucose [Mass/Vol] 88 mg/dL 74-106 [facility] [place] Work Phone: Lactate [Moles/Vol] 0.9 mmol/L 0.4-2.0 [facility] [place] Work Phone: Neutrophils (Bld) [#/Vol] 2.3 10*3/uL 2.0-7.7 [facility] Work Phone: Neutrophils/100 WBC (Bld) 56.1 % 47-70 [facility] Work Phone: Potassium [Moles/Vol] 4.6 mmol/L 3.5-5.1 [facility] [place] Work Phone: Sodium [Moles/Vol] 141 mmol/L 136-145 [facility] [place] Work Phone: WBC (Bld) [#/Vol] 4.1 10*3/uL 4.4-11.0 [facility] Work Phone: Blood erythrocytes count (nu mber/volume)on 12-12-2021 RBC (Bld) [#/Vol] 4.37 10*6/uL 4.2-5.4 [facility] [place] Work Phone: Blood hemoglobin measurement (mass/volume)on 12-12-2021 Hemoglobin (Bld) [Mass/Vol] 13.1 g/dL 12.0-15.0 [facility] Work Phone: Blood lymphocytes/100 leukoc yteson 12-12-2021 Lymphocytes/100 WBC (Bld) 31.4 % 19-41 [facility] Work Phone: Blood monocytes/100 leukocyt eson 12-12-2021 Monocytes/100 WBC (Bld) 8.8 % 0-10 [facility] Work Phone: Blood platelet mean volumeon 12-12-2021 Platelet mean volume (Bld) [Entitic vol] 9.0 fL 6.2-12.0 [facility] Work Phone: Determination of erythrocyte mean corpuscular volume (MCV)on 12-12-2021 MCV (RBC) [Entitic vol] 92.9 fL 81-99 [facility] Work Phone: Erythrocyte sedimentation ra jaison 12-12-2021 ESR (Bld) [Velocity] 19 mm/h 0-30 [facility] Work Phone: Hematocrit Auto (Bld) [Volum e fraction]on 12-12-2021 Hematocrit (Bld) [Volume fraction] 40.6 % 37-47 [facility] Work Phone: [phone] Laboratory - Chemistry and C hemistry - challengeon 12-12-2021 CO2 [Moles/Vol] 29.0 mmol/L 21.0-32.0 [facility] Work Phone: Urea nitrogen/Creatinine [Mass ratio] 18.8 mg/mg 10-20 [facility] Work Phone: Laboratory - Hematology and Cell countson 12-12-2021 Erythrocyte distribution width (RBC) [Entitic vol] 44.9 fL 35.1-43.9 [facility] Work Phone: Erythrocyte distribution width (RBC) [Ratio] 13.1 % 11.6-14.6 [facility] Work Phone: Immature granulocytes/100 WBC (Bld) 0.200 % 0.0-0.9 [facility] Work Phone: Comment on above: IG% - Immature Granu locytes (promyelocytes, myelocytes and metamyelocytes) > 1% indicates that a LEFT SHIFT is Present. MCH (RBC) [Entitic mass] 30.0 pg 27.0-32.0 [facility] Work Phone: Nucleated RBC/100 WBC (Bld) [Ratio] 0 % 0-5 [facility] Work Phone: MCHC Auto (RBC) [Mass/Vol]on 12-12-2021 MCHC (RBC) [Mass/Vol] 32.3 g/dL 32-36 [facility] Work Phone: No Panel Informationon 12-12 Methicillin-Resist S.aureus DNA PCR Negative Negative [facility] Work Phone: Estimated Creatinine Clearance Calc 45.47 ml/min [facility] Work Phone: Estimated GFR (MDRD) Amer 60 mL/min >60 [facility] Work Phone: Comment on above: GFR Calc Estimated GFR (MDRD) Non-Af Amer 49 mL/min >60 [facility] Work Phone: Comment on above: Non- GFR Calc Platelets bldon 12-12-2021 Platelets (Bld) [#/Vol] 213 10*3/uL 150-450 [facility] Work Phone: Serum or plasma C reactive p rotein measurement (mass/volume)on 12-12-2021 CRP [Mass/Vol] 14.20 mg/L 0.0-3.0 [facility] Work Phone: Comment on above: C-Reactive Protein ( CRP) provides useful information for thediagnosis, therapy and monitoring of inflammatory processesand associated diseases. For the evaluation of Relative Riskfor Cardiovascular Disease, a High Sensitivity CRP (HSCRP)should be ordered. Serum or plasma calcium tino urement (mass/volume)on 12-12-2021 Calcium [Mass/Vol] 9.3 mg/dL 8.5-10.1 [facility] Work Phone: Serum or plasma creatinine m easurement (mass/volume)on 12-12-2021 Creatinine [Mass/Vol] 1.17 mg/dL 0.55-1.02 [facility] Work Phone: Comment on above: The validity of the calculated GFR & GFRAA in patients over 70 years has not been determined. Clinical correlation is essential. Serum or plasma urea nitroge n measurement (mass/volume)on 12-12-2021 Urea nitrogen [Mass/Vol] 22 mg/dL 7-18 [facility] Work Phone: Staphylococcus aureus DNA de tection by probe and target amplification methodon 12-12-2021 S. aureus DNA KEN+probe Ql (Unsp spec) Negative Negative [facility] Work Phone: Thin prep Papanicolaou smear with manual screeningon 12-12-2021 Thin prep Papanicolaou smear with manual screening 3 5-15 [facility] Work Phone: Absolute lymphocyte counton 11-01-2021 Lymphocytes Auto (Unsp spec) [#/Vol] 1.13 10*3/uL 0.83-4.51 [facility] Work Phone: Basophil percentageon 2021 Basophils/100 WBC (Bld) 1.1 % 0-1 [facility] Work Phone: Chloride [Moles/Vol] 112 mmol/L 98-107 [facility] Work [facility]: Eosinophils/100 WBC (Bld) 2.3 % 0-5 [facility] Work Phone: Glucose [Mass/Vol] 90 mg/dL 74-106 [facility] Work Phone: Neutrophils (Bld) [#/Vol] 2.0 10*3/uL 2.0-7.7 [facility] Work Phone: Neutrophils/100 WBC (Bld) 56.0 % 47-70 [facility] Work Phone: Potassium [Moles/Vol] 4.5 mmol/L 3.5-5.[facility]: Sodium [Moles/Vol] 141 mmol/L 136-145 [facility] Work Phone: WBC (Bld) [#/Vol] 3.5 10*3/uL 4.4-11.0 [facility] Work Phone: Blood erythrocytes count (nu mber/volume)on 11-01-2021 RBC (Bld) [#/Vol] 4.61 10*6/uL 4.2-5.4 [facility] Work Phone: Blood hemoglobin measurement (mass/volume)on 11-01-2021 Hemoglobin (Bld) [Mass/Vol] 13.8 g/dL 12.0-15.0 [facility] Work Phone: Blood lymphocytes/100 leukoc yteson 11-01-2021 Lymphocytes/100 WBC (Bld) 32.1 % 19-41 [facility] Work Phone: Blood monocytes/100 leukocyt eson 11-01-2021 Monocytes/100 WBC (Bld) 8.2 % 0-10 [facility] Work Phone: Blood platelet mean volumeon 11-01-2021 Platelet mean volume (Bld) [Entitic vol] 8.6 fL 6.2-12.0 [facility] Work Phone: Determination of erythrocyte mean corpuscular volume (MCV)on 11-01-2021 MCV (RBC) [Entitic vol] 92.8 fL 81-99 [facility] Work Phone: [phone] Hematocrit Auto (Bld) [Volum e fraction]on 11-01-2021 Hematocrit (Bld) [Volume fraction] 42.8 % 37-47 [facility] Work Phone: [phone] Laboratory - Chemistry and C hemistry - challengeon 11-01-2021 CO2 [Moles/Vol] 28.0 mmol/L 21.0-32.0 [facility] Work Phone: Urea nitrogen/Creatinine [Mass ratio] 16.9 mg/mg 10-20 [facility] Work Phone: [phone] Laboratory - Hematology and Cell countson 11-01-2021 Erythrocyte distribution width (RBC) [Entitic vol] 45.1 fL 35.1-43.9 [facility] Work Phone: [phone] Erythrocyte distribution width (RBC) [Ratio] 13.2 % 11.6-14.6 [facility] Work Phone: [phone] Immature granulocytes/100 WBC (Bld) 0.300 % 0.0-0.9 [facility] Work Phone: [phone] Comment on above: IG% - Immature Granu locytes (promyelocytes, myelocytes and metamyelocytes) > 1% indicates that a LEFT SHIFT is Present. MCH (RBC) [Entitic mass] 29.9 pg 27.0-32.0 [facility] Work Phone: [phone] Nucleated RBC/100 WBC (Bld) [Ratio] 0 % 0-5 [facility] Work Phone: [phone] MCHC Auto (RBC) [Mass/Vol]on 11-01-2021 MCHC (RBC) [Mass/Vol] 32.2 g/dL 32-36 [facility] Work Phone: [phone] No Panel Informationon 11-01 Estimated Creatinine Clearance Calc 59.78 ml/min [facility] Work Phone: Estimated GFR (MDRD) Amer 83 mL/min >60 [facility] Work Phone: Comment on above: GFR Calc Estimated GFR (MDRD) Non-Af Amer 68 mL/min >60 [facility] Work Phone: Comment on above: Non- GFR Calc Platelets bldon 11-01-2021 Platelets (Bld) [#/Vol] 208 10*3/uL 150-450 [facility] Work Phone: Serum or plasma calcium tino urement (mass/volume)on 11-01-2021 Calcium [Mass/Vol] 8.8 mg/dL 8.5-10.1 [facility] Work Phone: Serum or plasma creatinine m easurement (mass/volume)on 11-01-2021 Creatinine [Mass/Vol] 0.89 mg/dL 0.55-1.02 [facility] Work Phone: Comment on above: The validity of the calculated GFR & GFRAA in patients over 70 years has not been determined. Clinical correlation is essential. Serum or plasma urea nitroge n measurement (mass/volume)on 11-01-2021 Urea nitrogen [Mass/Vol] 15 mg/dL 7-18 [facility] Work Phone: Thin prep Papanicolaou smear with manual screeningon 11-01-2021 Thin prep Papanicolaou smear with manual screening 1 5-15 [facility] Work Phone: Absolute lymphocyte counton 07-10-2021 Lymphocytes Auto (Unsp spec) [#/Vol] 1.05 10*3/uL 0.83-4.51 [facility] Work Phone: Basophil percentageon 2021 Basophils/100 WBC (Bld) 0.8 % 0-1 [facility] Work Phone: Chloride [Moles/Vol] 110 mmol/L 98-107 [facility] Work Phone: Eosinophils/100 WBC (Bld) 2.6 % 0-5 [facility] Work Phone: Glucose [Mass/Vol] 98 mg/dL 74-106 [facility] Work Phone: Neutrophils (Bld) [#/Vol] 2.4 10*3/uL 2.0-7.7 [facility] Work Phone: Neutrophils/100 WBC (Bld) 61.9 % 47-70 [facility] Work Phone: Potassium [Moles/Vol] 3.9 mmol/L 3.5-5.1 [facility] Work Phone: Sodium [Moles/Vol] 143 mmol/L 136-145 [facility] Work Phone: WBC (Bld) [#/Vol] 3.8 10*3/uL 4.4-11.0 [facility] Work Phone: Blood erythrocytes count (nu mber/volume)on 07-10-2021 RBC (Bld) [#/Vol] 4.19 10*6/uL 4.2-5.4 [facility] Work Phone: Blood hemoglobin measurement (mass/volume)on 07-10-2021 Hemoglobin (Bld) [Mass/Vol] 13.3 g/dL 12.0-15.0 [facility] Work Phone: Blood lymphocytes/100 leukoc yteson 07-10-2021 Lymphocytes/100 WBC (Bld) 27.6 % 19-41 [facility] Work Phone: Blood monocytes/100 leukocyt eson 07-10-2021 Monocytes/100 WBC (Bld) 6.8 % 0-10 [facility] Work Phone: Blood platelet mean volumeon 07-10-2021 Platelet mean volume (Bld) [Entitic vol] 9.0 fL 6.2-12.0 [facility] Work Phone: [phone] Determination of erythrocyte mean corpuscular volume (MCV)on 07-10-2021 MCV (RBC) [Entitic vol] 94.5 fL 81-99 [facility] Work Phone: Hematocrit Auto (Bld) [Volum e fraction]on 07-10-2021 Hematocrit (Bld) [Volume fraction] 39.6 % 37-47 [facility] Work Phone: Laboratory - Chemistry and C hemistry - challengeon 07-10-2021 CO2 [Moles/Vol] 30.0 mmol/L 21.0-32.0 [facility] Work Phone: Urea nitrogen/Creatinine [Mass ratio] 13.2 mg/mg 10-20 [facility] Work Phone: Laboratory - Hematology and Cell countson 07-10-2021 Erythrocyte distribution width (RBC) [Entitic vol] 44.8 fL 35.1-43.9 [facility] Work Phone: Erythrocyte distribution width (RBC) [Ratio] 12.9 % 11.6-14.6 [facility] Work Phone: Immature granulocytes/100 WBC (Bld) 0.300 % 0.0-0.9 [facility] Work Phone: Comment on above: IG% - Immature Granu locytes (promyelocytes, myelocytes and metamyelocytes) > 1% indicates that a LEFT SHIFT is Present. MCH (RBC) [Entitic mass] 31.7 pg 27.0-32.0 [facility] Work Phone: Nucleated RBC/100 WBC (Bld) [Ratio] 0 % 0-5 [facility] Work Phone: MCHC Auto (RBC) [Mass/Vol]on 07-10-2021 MCHC (RBC) [Mass/Vol] 33.6 g/dL 32-36 [facility] Work Phone: No Panel Informationon 07-10 Estimated Creatinine Clearance Calc 49.85 ml/min [facility] Work Phone: Estimated GFR (MDRD) Amer 73 mL/min >60 [facility] Work Phone: Comment on above: GFR Calc Estimated GFR (MDRD) Non-Af Amer 60 mL/min >60 [facility] Work Phone: Comment on above: Non- GFR Calc SARS-CoV-2 Antigen (Rapid) [facility] Work Phone: Platelets bldon 07-10-2021 Platelets (Bld) [#/Vol] 188 10*3/uL 150-450 [facility] Work Phone: Serum or plasma calcium tino urement (mass/volume)on 07-10-2021 Calcium [Mass/Vol] 8.7 mg/dL 8.5-10.1 oste r [facility] Work Phone: Serum or plasma creatinine m easurement (mass/volume)on 07-10-2021 Creatinine [Mass/Vol] 0.99 mg/dL 0.55-1.02 [facility] Work Phone: Comment on above: The validity of the calculated GFR & GFRAA in patients over 70 years has not been determined. Clinical correlation is essential. Serum or plasma urea nitroge n measurement (mass/volume)on 07-10-2021 Urea nitrogen [Mass/Vol] 13 mg/dL 7-18 [facility] Work Phone: Thin prep Papanicolaou smear with manual screeningon 07-10-2021 Thin prep Papanicolaou smear with manual screening 3 5-15 [facility] Work Phone: Absolute lymphocyte counton 07-06-2021 Lymphocytes Auto (Unsp spec) [#/Vol] 1.10 10*3/uL 0.83-4.51 [facility] Work Phone: Basophil percentageon 2021 Basophils/100 WBC (Bld) 0.7 % 0-1 [facility] Work Phone: Chloride [Moles/Vol] 104 mmol/L 98-107 os [facility] Work Phone: Cholesterol [Mass/Vol] 184 mg/dL <200 Wo [facility] [place] Work Phone: Comment on above: <200 mg/dL Desirable 200-240 mg/dL Borderline >240 mg/dL High Risk Eosinophils/100 WBC (Bld) 1.7 % 0-5 [facility] Work Phone: Glucose [Mass/Vol] 88 mg/dL 74-106 [facility] Work Phone: Neutrophils (Bld) [#/Vol] 2.7 10*3/uL 2.0-7.7 [facility] Work Phone: Neutrophils/100 WBC (Bld) 63.7 % 47-70 [facility] Work Phone: Potassium [Moles/Vol] 4.1 mmol/L 3.5-5.1 [facility] Work Phone: Sodium [Moles/Vol] 138 mmol/L 136-145 [facility] Work Phone: Triglyceride [Mass/Vol] 91 mg/dL [facility] Work Phone: [phone] Comment on above: The drugs N-Acetylcy steine and Metamizole may falsely depress this assay.Serum Triglycerides Reference Interval Normal <150 mg/dL Borderline high 150 - 199 mg/dL High 200 - 499 mg/dL Very High > or = 500 mg/dL WBC (Bld) [#/Vol] 4.2 10*3/uL 4.4-11.0 [facility] Work Phone: [phone] Blood erythrocytes count (nu mber/volume)on 07-06-2021 RBC (Bld) [#/Vol] 4.78 10*6/uL 4.2-5.4 [facility] Work Phone: Blood hemoglobin measurement (mass/volume)on 07-06-2021 Hemoglobin (Bld) [Mass/Vol] 14.8 g/dL 12.0-15.0 [facility] Work Phone: Blood lymphocytes/100 leukoc yteson 07-06-2021 Lymphocytes/100 WBC (Bld) 26.4 % 19-41 [facility] Work Phone: Blood monocytes/100 leukocyt eson 07-06-2021 Monocytes/100 WBC (Bld) 7.0 % 0-10 [facility] Work Phone: Blood platelet mean volumeon 07-06-2021 Platelet mean volume (Bld) [Entitic vol] 9.3 fL 6.2-12.0 [facility] Work Phone: Determination of erythrocyte mean corpuscular volume (MCV)on 07-06-2021 MCV (RBC) [Entitic vol] 93.7 fL 81-99 [facility] Work Phone: [phone] Hematocrit Auto (Bld) [Volum e fraction]on 07-06-2021 Hematocrit (Bld) [Volume fraction] 44.8 % 37-47 [facility] Work Phone: Laboratory - Chemistry and C hemistry - challengeon 07-06-2021 CO2 [Moles/Vol] 28.0 mmol/L 21.0-32.0 [facility] Work Phone: Urea nitrogen/Creatinine [Mass ratio] 19.8 mg/mg 10-20 [facility] Work Phone: [phone] Laboratory - Hematology and Cell countson 07-06-2021 Erythrocyte distribution width (RBC) [Entitic vol] 43.6 fL 35.1-43.9 [facility] Work Phone: [phone] Erythrocyte distribution width (RBC) [Ratio] 12.7 % 11.6-14.6 [facility] Work Phone: [phone] Immature granulocytes/100 WBC (Bld) 0.500 % 0.0-0.9 [facility] Work Phone: Comment on above: IG% - Immature Granu locytes (promyelocytes, myelocytes and metamyelocytes) > 1% indicates that a LEFT SHIFT is Present. MCH (RBC) [Entitic mass] 31.0 pg 27.0-32.0 [facility] Work Phone: [phone] Nucleated RBC/100 WBC (Bld) [Ratio] 0 % 0-5 [facility] Work Phone: [phone] MCHC Auto (RBC) [Mass/Vol]on 07-06-2021 MCHC (RBC) [Mass/Vol] 33.0 g/dL 32-36 [facility] Work Phone: No Panel Informationon 07-06 Estimated GFR (MDRD) Amer 71 mL/min >60 [facility] Work Phone: Comment on above: GFR Calc Estimated GFR (MDRD) Non-Af Amer 59 mL/min >60 [facility] Work Phone: Comment on above: Non- GFR Calc Platelets bldon 07-06-2021 Platelets (Bld) [#/Vol] 226 10*3/uL 150-450 [facility] Work Phone: Serum or plasma calcium tino urement (mass/volume)on 07-06-2021 Calcium [Mass/Vol] 9.2 mg/dL 8.5-10.1 [facility] Work Phone: Serum or plasma cholesterol in HDL measurement (mass/volume)on 07-06-2021 Cholesterol in HDL [Mass/Vol] 92 mg/dL [facility] Work Phone: Comment on above: The drugs N-Acetylcy steine and Metamizole may falsely depress this assay. Reference Range HDL <40 mg/dL Low HDL Cholesterol HDL >or= 60 mg/dL High HDL Cholesterol Serum or plasma cholesterol in VLDL measurement (mass/volume)on 07-06-2021 Cholesterol in VLDL [Mass/Vol] 18 mg/dL 5-40 [facility] Work Phone: Serum or plasma creatinine m easurement (mass/volume)on 07-06-2021 Creatinine [Mass/Vol] 1.01 mg/dL 0.55-1.02 [facility] Work Phone: Comment on above: The validity of the calculated GFR & GFRAA in patients over 70 years has not been determined. Clinical correlation is essential. Serum or plasma low density lipoprotein (LDL) cholesterol measurement (mass/volume)on 07-06-2021 Cholesterol in LDL [Mass/Vol] 74 mg/dL 0-130 [facility] Work Phone: Serum or plasma urea nitroge n measurement (mass/volume)on 07-06-2021 Urea nitrogen [Mass/Vol] 20 mg/dL 7-18 [facility] Work Phone: Thin prep Papanicolaou smear with manual screeningon 07-06-2021 Thin prep Papanicolaou smear with manual screening 6 5-15 [facility] Work Phone: Stress Test Reporton 019 Stress Test Report Patient: TEMITOPE GAONA Age: 63 years Sex: Female : 1955 Associated Diagnoses: None Author: MARIAM SHERMAN, GIANCARLO Exam Indication: Chest pain Date of Exam: 03/05/2019 Referring Physician: Cheryl Nieves Clinical History: 63 yr old lady with remote CVA,HTN and HLD comes with atypical chest pain Procedure: The supervising analytics senior manager, Dr Daniele Tai, reviewed the patient's baseline ECG prior to starting the stress test. The patient performed treadmill exercise using the standard Arslan protocol for 7.0 minutes, achieving an estimated workload of _8.0 METS. The test was terminated due to dyspnea. The patient was given the imaging tracer at peak exercise followed by a 5 mL saline flush. The patient continued to exercise for one minute after injection. The patient's heart rate and blood pressure response was adequate. The resting ECG demonstrated NSR and the post stress ecg shows no ST changes and no ectopy The patient was given 9.6 mCi of Tc-99m sestamibi IV for evaluation of myocardial function and perfusion rest. Approximately 30 minutes after injection, the patient underwent SPECT imaging. The stress images were acquired approximately 30 minutes after injection of 36.0 mCi of Tc-99m sestamibi IV. The stress SPECT study was also gated to evaluate regional wall motion and calculate the left ventricular ejection fraction. The data was reconstructed in short, horizontal long and vertical long axis views, and tomographic slices were generated. Findings: The overall technical quality of the images is good. Stress images demonstrated uniform uptake of activity all over the myocardium The rest images demonstrated similar distribution of activity The stress gated images demonstrated normal size and function of the left ventricle and the estimated ejection fraction is 60% with no wall motion abnormalities. Impression 1. No evidence of ischemia or infarction 2. Normal size and function of the left ventricle 3. Ejection fraction is 60% with no wall motion abnormalities Copy of Final Report Sent to: Date of Interpretation: 03/05/2019 Date of Final Report: 03/06/2019 Normal [facility] Stress Test Reporton 019 Stress Test Report Patient: TEMITOEP GAONA Age: 63 years Sex: Female : 1955 Associated Diagnoses: None Author: LASHAUN TAI MD Date of Exam: March 05, 2019 Referring Physician: Alexis Nieves MD Reason for Stress Test: Chest pain Findings: 1. The baseline ECG revealed normal sinus rhythm with resting heart rate of [address] segment abnormalities. 2. The resting blood pressure was 142/84 mmHg with normal response to the exercise. 3. The total exercise time was 7 minutes with heart response of 85%. 4. This test was terminated because of fatigue and shortness of breath, no chest pain provoked. 5. The twelve-lead ECG taken during the test has multiple artifacts and difficult intubated. 6. The Cardiolite injected 1 minute prior to the termination of the test. Conclusion: 1. The twelve-lead ECG taken during the stress test has multiple artifacts but appears no ST segment abnormalities. 2. The nuclear report to follow separately. Electronically signed by Dr. Daniele Tai. Copy of Final Report Sent to: [] Date of Interpretation: March 05, 2019 Date of Final Report: March 05, 2019 Normal [facility] Vital Signs Date Time Vital Sign Value Performing Clinician Faci lity 01-31-2025 21:23-0400 Body temperature 98 [degF] Dr. Bird Ronquillo MD Work Phone: [facility] 01-31-2025 21:23-0400 Diastolic blood pressure 97 mm[Hg] Dr. Bird Ronquillo MD Work Phone: [facility] 01-31-2025 21:23-0400 Heart rate 65 /min Dr. Bird Ronquillo MD Work Phone: 0(059)169-303859 [place] [address] 01-31-2025 21:23-0400 Respiratory rate 18 /min Dr. Bird Ronquillo MD Work Phone: 6(610)593-756859 [place] [address] 01-31-2025 21:23-0400 SaO2% (BldA) [Mass fraction] 95 % Dr. Bird Ronquillo MD Work Phone: 6(645)328-621659 [place] [address] 01-31-2025 21:23-0400 Systolic blood pressure 165 mm[Hg] Dr. Bird Ronquillo MD Work Phone: 2(662)044-331759 [place] [address] 01-31-2025 21:00-0400 Inhaled oxygen flow rate 2 L/min Dr. Bird Ronquillo MD Work Phone: 0(651)220-195959 [place] [address] 01-31-2025 17:53-0400 Body height 167.[address] Bird Ronquillo MD Work Phone: 2(683)726-921459 [place] [address] 01-31-2025 17:53-0400 Body mass index (BMI) [Ratio] 28.7 kg/m2 Dr. Bird Ronquillo MD Work Phone: 8(361)784-880459 [place] [address] 01-31-2025 17:53-0400 Body weight 80.[address] Bird Ronquillo MD Work Phone: 6(036)865-606659 [place] [address] 01-19-2025 18:52-0400 Body temperature 98.4 [degF] Dr. Bird Ronquillo MD Work Phone: 4(856)477-990859 [place] [address] 01-19-2025 18:52-0400 Diastolic blood pressure 74 mm[Hg] Dr. Bird Ronquillo MD Work Phone: 3(522)582-950759 [place] [address] 01-19-2025 18:52-0400 Heart rate 71 /min Dr. Bird Ronquillo MD Work Phone: 6(358)363-571959 [place] [address] 01-19-2025 18:52-0400 Respiratory rate 18 /min Dr. Bird Ronquillo MD Work Phone: 7(959)232-676159 [place] [address] 01-19-2025 18:52-0400 SaO2% (BldA) [Mass fraction] 97 % Dr. Bird Ronquillo MD Work Phone: 0(191)085-405759 [place] [address] 01-19-2025 18:52-0400 Systolic blood pressure 137 mm[Hg] Dr. Bird Ronquillo MD Work Phone: 6(290)095-211859 [place] [address] 01-19-2025 15:33-0400 Body height 167.[address] Bird Ronquillo MD Work Phone: 6(222)676-272359 [place] [address] 01-19-2025 15:33-0400 Body mass index (BMI) [Ratio] 28 kg/m2 Dr. Bird Ronquillo MD Work Phone: 7(159)871-059059 [place] [address] 01-19-2025 15:33-0400 Body weight 78.[address] Bird Ronquillo MD Work Phone: 5(289)749-049359 [place] [address] 12-05-2024 08:46-0400 Body height 167.[address] Bird Ronquillo MD Work Phone: 9(838)074-736359 [place] [address] 12-05-2024 08:46-0400 Body mass index (BMI) [Ratio] 28.4 kg/m2 Dr. Bird Ronquillo MD Work Phone: 5(174)214-766459 [place] [address] 12-05-2024 08:46-0400 Body temperature 97.4 [degF] Dr. Bird Ronquillo MD Work Phone: 2(629)429-037759 [place] [address] 12-05-2024 08:46-0400 Body weight 79.[address] Bird Ronquillo MD Work Phone: 8(054)977-607359 [place] [address] 12-05-2024 08:46-0400 Diastolic blood pressure 81 mm[Hg] Dr. Bird Ronquillo MD Work Phone: 6(479)994-229159 [place] [address] 12-05-2024 08:46-0400 Heart rate 66 /min Dr. Bird Ronquillo MD Work Phone: 4(871)337-397459 [place] [address] 12-05-2024 08:46-0400 Respiratory rate 16 /min Dr. Bird Ronquillo MD Work Phone: 2(919)379-443759 [place] [address] 12-05-2024 08:46-0400 SaO2% (BldA) [Mass fraction] 95 % Dr. Bird Ronquillo MD Work Phone: [facility] 12-05-2024 08:46-0400 Systolic blood pressure 136 mm[Hg] Dr. Bird Ronquillo MD Work Phone: [facility] 10-23-2024 10:27-0400 Body mass index (BMI) [Ratio] 28.12 kg/m2 Tatiana Ronquillo MD Work Phone: [facility] 10-23-2024 10:27-0400 Body temperature 96.8 [degF] Tatiana Ronquillo MD Work Phone: [facility] 10-23-2024 10:27-0400 Body weight 79.02 kg Tatiana Ronquillo MD Work Phone: [facility] 10-23-2024 10:27-0400 Diastolic blood pressure 72 mm[Hg] Tatiaan Ronquillo MD Work Phone: [facility] 10-23-2024 10:27-0400 Heart rate 65 /min Tatiana Ronquillo MD Work Phone: [facility] 10-23-2024 10:27-0400 Respiratory rate 16 /min Tatiana Ronquillo MD Work Phone: [facility] 10-23-2024 10:27-0400 SaO2% (BldA) [Mass fraction] 96 % Tatiana Ronquillo MD Work Phone: [facility] 10-23-2024 10:27-0400 Systolic blood pressure 136 mm[Hg] Tatiana Ronquillo MD Work Phone: [facility] 10-13-2024 21:24-0400 Body temperature 98.6 [degF] Dr. Bird Ronquillo MD Work Phone: [facility] 10-13-2024 21:24-0400 Diastolic blood pressure 78 mm[Hg] Dr. Bird Ronquillo MD Work Phone: 2(943)321-166059 [place] [address] 10-13-2024 21:24-0400 Heart rate 78 /min Dr. Bird Ronquillo MD Work Phone: 7(338)310-468259 [place] [address] 10-13-2024 21:24-0400 Respiratory rate 19 /min Dr. Bird Ronquillo MD Work Phone: 7(742)365-290259 [place] [address] 10-13-2024 21:24-0400 SaO2% (BldA) [Mass fraction] 90 % Dr. Bird Ronquillo MD Work Phone: 9(249)896-772159 [place] [address] 10-13-2024 21:24-0400 Systolic blood pressure 152 mm[Hg] Dr. Bird Ronquillo MD Work Phone: 0(676)373-935759 [place] [address] 10-13-2024 20:19-0400 Inhaled oxygen flow rate 2 L/min Dr. Bird Ronquillo MD Work Phone: 0(276)490-401259 [place] [address] 10-13-2024 17:06-0400 Body height 167.[address] Bird Ronquillo MD Work Phone: 5(997)041-768659 [place] [address] 10-13-2024 17:06-0400 Body mass index (BMI) [Ratio] 28.3 kg/m2 Dr. Bird Ronquillo MD Work Phone: 7(737)323-774059 [place] [address] 10-13-2024 17:06-0400 Body weight 79.[address] Bird Ronquillo MD Work Phone: 8(568)428-130359 [place] [address] 09-30-2024 10:39-0400 Body temperature 97.9 [degF] Dr. Bird Ronquillo MD Work Phone: 6(704)368-536659 [place] [address] 09-30-2024 10:39-0400 Diastolic blood pressure 72 mm[Hg] Dr. Bird Ronquillo MD Work Phone: 5(733)358-625859 [place] [address] 09-30-2024 10:39-0400 Heart rate 64 /min Dr. Bird Ronquillo MD Work Phone: 8(311)208-600859 [place] [address] 09-30-2024 10:39-0400 Respiratory rate 18 /min Dr. Bird Ronquillo MD Work Phone: [facility] 09-30-2024 10:39-0400 SaO2% (BldA) [Mass fraction] 99 % Dr. Bird Ronquillo MD Work Phone: [facility] 09-30-2024 10:39-0400 Systolic blood pressure 136 mm[Hg] Dr. Bird Ronquillo MD Work Phone: [facility] 09-30-2024 07:29-0400 Body mass index (BMI) [Ratio] 28.3 kg/m2 Dr. Bird Ronquillo MD Work Phone: [facility] 09-30-2024 07:29-0400 Body weight 79.[address] Bird Ronquillo MD Work Phone: [facility] 08-06-2024 13:17-0400 Body mass index (BMI) [Ratio] 28.12 kg/m2 Shavonne Podlogar IN HOME SALES CONSULTANT.MESSENGER COPY Work Phone: [facility] 08-06-2024 13:17-0400 Body weight 79.02 kg Shavonne Podlogar IN HOME SALES CONSULTANT.MESSENGER COPY Work Phone: [facility] 08-06-2024 13:17-0400 Diastolic blood pressure 90 mm[Hg] Shavonne Podlogar IN HOME SALES CONSULTANT.MESSENGER COPY Work Phone: [facility] 08-06-2024 13:17-0400 Heart rate 64 /min Shavonne Podlogar IN HOME SALES CONSULTANT.MESSENGER COPY Work Phone: [facility] 08-06-2024 13:17-0400 Respiratory rate 18 /min Shavonne Podlogar IN HOME SALES CONSULTANT.MESSENGER COPY Work Phone: [facility] 08-06-2024 13:17-0400 SaO2% (BldA) [Mass fraction] 95 % Shavonne Podlogar IN HOME SALES CONSULTANT.MESSENGER COPY Work Phone: [facility] 08-06-2024 13:17-0400 Systolic blood pressure 152 mm[Hg] Shavonne Podlogar IN HOME SALES CONSULTANT.MESSENGER COPY Work Phone: 6(886)816-209075 [place] [address] 07-31-2024 19:32-0500 Body temperature 97.9 [degF] Dr. Bird Ronquillo MD Work Phone: 5(175)072-956459 [place] [address] 07-31-2024 19:32-0500 Diastolic blood pressure 66 mm[Hg] Dr. Bird Ronquillo MD Work Phone: 3(197)616-463859 [place] [address] 07-31-2024 19:32-0500 Heart rate 71 /min Dr. Bird Ronquillo MD Work Phone: 2(431)184-268159 [place] [address] 07-31-2024 19:32-0500 Respiratory rate 16 /min Dr. Bird Ronquillo MD Work Phone: 0(688)017-426759 [place] [address] 07-31-2024 19:32-0500 SaO2% (BldA) [Mass fraction] 99 % Dr. Bird Ronquillo MD Work Phone: 6(326)643-027059 [place] [address] 07-31-2024 19:32-0500 Systolic blood pressure 128 mm[Hg] Dr. Bird Ronquillo MD Work Phone: 4(756)850-353159 [place] [address] 07-31-2024 14:57-0500 Body mass index (BMI) [Ratio] 27.1 kg/m2 Dr. Bird Ronquillo MD Work Phone: 9(801)679-555359 [place] [address] 07-31-2024 14:57-0500 Body weight 76.[address] Bird Ronquillo MD Work Phone: 9(740)922-287059 [place] [address] 07-19-2024 23:53-0500 Diastolic blood pressure 59 mm[Hg] Dr. Bird Ronquillo MD Work Phone: 2(771)820-712759 [place] [address] 07-19-2024 23:53-0500 Heart rate 61 /min Dr. Bird Ronquillo MD Work Phone: 7(346)968-287459 [place] [address] 07-19-2024 23:53-0500 Respiratory rate 19 /min Dr. Bird Ronquillo MD Work Phone: 8(274)899-497159 [place] [address] 07-19-2024 23:53-0500 SaO2% (BldA) [Mass fraction] 92 % Dr. Bird Ronquillo MD Work Phone: [facility] 07-19-2024 23:53-0500 Systolic blood pressure 147 mm[Hg] Dr. Bird Ronquillo MD Work Phone: [facility] 07-19-2024 21:24-0500 Body temperature 97.8 [degF] Dr. Bird Ronquillo MD Work Phone: [facility] 07-19-2024 21:24-0500 Inhaled oxygen flow rate 2 L/min Dr. Bird Ronquillo MD Work Phone: [facility] 07-11-2024 11:25-0500 Body temperature 100.71 [degF] Moraima Solano IN HOME SALES CONSULTANT.MESSENGER COPY Work Phone: [facility] 07-11-2024 11:25-0500 Diastolic blood pressure 71 mm[Hg] Moriama Solano IN HOME SALES CONSULTANT.MESSENGER COPY Work Phone: [facility] 07-11-2024 11:25-0500 Heart rate 80 /min Moraima Solano IN HOME SALES CONSULTANT.MESSENGER COPY Work Phone: [facility] 07-11-2024 11:25-0500 Respiratory rate 16 /min Moraima Solano IN HOME SALES CONSULTANT.MESSENGER COPY Work Phone: [facility] 07-11-2024 11:25-0500 SaO2% (BldA) [Mass fraction] 93 % Moraima Solano IN HOME SALES CONSULTANT.MESSENGER COPY Work Phone: [facility] 07-11-2024 11:25-0500 Systolic blood pressure 119 mm[Hg] Moraima Solano IN HOME SALES CONSULTANT.MESSENGER COPY Work Phone: [facility] 05-20-2024 12:02-0500 Body mass index (BMI) [Ratio] 28.18 kg/m2 Tatiana Ronquillo MD Work Phone: [facility] 05-20-2024 12:02-0500 Body weight 79.2 kg Tatiana Ronquillo MD Work Phone: [facility] 05-20-2024 12:02-0500 Diastolic blood pressure 72 mm[Hg] Tatiana Ronquillo MD Work Phone: [facility] 05-20-2024 12:02-0500 Heart rate 65 /min Tatiana Ronquillo MD Work Phone: [facility] 05-20-2024 12:02-0500 Respiratory rate 16 /min Tatiana Ronquillo MD Work Phone: [facility] 05-20-2024 12:02-0500 SaO2% (BldA) [Mass fraction] 97 % Tatiana Ronquillo MD Work Phone: [facility] 05-20-2024 12:02-0500 Systolic blood pressure 128 mm[Hg] Tatiana Ronquillo MD Work Phone: [facility] 04-29-2024 12:02-0500 Body mass index (BMI) [Ratio] 28.15 kg/m2 Tatiana Ronquillo MD Work Phone: [facility] 04-29-2024 12:02-0500 Body weight 79.11 kg Tatiana Ronquillo MD Work Phone: [facility] 04-29-2024 12:02-0500 Diastolic blood pressure 72 mm[Hg] Tatiana Ronquillo MD Work Phone: [facility] 04-29-2024 12:02-0500 Heart rate 62 /min Tatiana Ronquillo MD Work Phone: [facility] 04-29-2024 12:02-0500 Respiratory rate 18 /min Tatiana Ronquillo MD Work Phone: [facility] 04-29-2024 12:02-0500 SaO2% (BldA) [Mass fraction] 95 % Tatiana Ronquillo MD Work Phone: [facility] 04-29-2024 12:02-0500 Systolic blood pressure 132 mm[Hg] Tatiana Ronquillo MD Work Phone: [facility] 04-18-2024 11:57-0500 Body mass index (BMI) [Ratio] 27.6 kg/m2 Sabine Crowley IN HOME SALES CONSULTANT.MESSENGER COPY Work Phone: [facility] [facility] 04-18-2024 11:57-0500 Body weight 77.56 kg Sabine Crowley IN [employer] SALES [employer]SULTANT.MESSENGER COPY Work Phone: [facility] 04-18-2024 11:57-0500 Diastolic blood pressure 75 mm[Hg] Sabine Crowley IN HOME SALES CONSULTANT.MESSENGER COPY Work Phone: [facility] 04-18-2024 11:57-0500 Heart rate 66 /min Sabine Crowley IN HOME SALES CONSULTANT.MESSENGER COPY Work Phone: [facility] 04-18-2024 11:57-0500 Systolic blood pressure 153 mm[Hg] Sabine Crowley IN HOME SALES CONSULTANT.MESSENGER COPY Work Phone: [facility] 02-20-2024 10:44-0400 Body mass index (BMI) [Ratio] 27.44 kg/m2 Tatiana Ronquillo MD Work Phone: [facility] 02-20-2024 10:44-0400 Body temperature 98.4 [degF] Tatiana Ronquillo MD Work Phone: [facility] 02-20-2024 10:44-0400 Body weight 77.11 kg Tatiana Ronquillo MD Work Phone: [facility] 02-20-2024 10:44-0400 Diastolic blood pressure 64 mm[Hg] Tatiana Ronquillo MD Work Phone: [facility] 02-20-2024 10:44-0400 Heart rate 79 /min Tatiana Ronquillo MD Work Phone: [facility] 02-20-2024 10:44-0400 Respiratory rate 18 /min Tatiana Ronquillo MD Work Phone: [facility] 02-20-2024 10:44-0400 SaO2% (BldA) [Mass fraction] 96 % Tatiana Ronquillo MD Work Phone: [facility] 02-20-2024 10:44-0400 Systolic blood pressure 102 mm[Hg] Tatiana Ronquillo MD Work Phone: [facility] 01-22-2024 17:20-0400 Body mass index (BMI) [Ratio] 28 kg/m2 Lena Aguilar APRN.MESSENGER COPY Work Phone: [facility] 01-22-2024 17:20-0400 Body temperature 97.39 [degF] Lena Aguilar APRN.MESSENGER COPY Work Phone: [facility] 01-22-2024 17:20-0400 Body weight 78.7 kg Lena Aguilar APRN.MESSENGER COPY Work Phone: [facility] 01-22-2024 17:20-0400 Diastolic blood pressure 80 mm[Hg] Lena Aguilar APRN.MESSENGER COPY Work Phone: [facility] 01-22-2024 17:20-0400 Heart rate 98 /min Lena Aguilar APRN.MESSENGER COPY Work Phone: [facility] 01-22-2024 17:20-0400 Respiratory rate 20 /min Lena Aguilar APRN.MESSENGER COPY Work Phone: [facility] 01-22-2024 17:20-0400 SaO2% (BldA) [Mass fraction] 93 % Lena Aguilar APRN.MESSENGER COPY Work Phone: [facility] 01-22-2024 17:20-0400 Systolic blood pressure 122 mm[Hg] Lena Aguilar APRN.MESSENGER COPY Work Phone: [facility] 10-25-2023 13:42-0400 Body height 167.6 cm Tatiana Ronquillo MD Work Phone: [facility] 10-25-2023 13:42-0400 Body mass index (BMI) [Ratio] 27.44 kg/m2 Tatiana Ronquillo MD Work Phone: [facility] 10-25-2023 13:42-0400 Body weight 77.11 kg Tatiana Ronquillo MD Work Phone: [facility] 10-25-2023 13:42-0400 Diastolic blood pressure 80 mm[Hg] Tatiana Ronquillo MD Work Phone: [facility] 10-25-2023 13:42-0400 Heart rate 65 /min Tatiana Ronquillo MD Work Phone: [facility] 10-25-2023 13:42-0400 Respiratory rate 16 /min Tatiana Ronquillo MD Work Phone: [facility] 10-25-2023 13:42-0400 Systolic blood pressure 128 mm[Hg] Tatiana Ronquillo MD Work Phone: [facility] 10-03-2023 13:00-0400 Diastolic blood pressure 78 mm[Hg] Kashmir Golias PT Work Phone: [facility] 10-03-2023 13:00-0400 Heart rate 69 /min Kashmir Golias PT Work Phone: [facility] 10-03-2023 13:00-0400 Systolic blood pressure 128 mm[Hg] Kashmir Golias PT Work Phone: [facility] 09-29-2023 17:17-0400 Body height 167.[address] Bird Ronquillo Work Phone: [facility] 09-29-2023 17:17-0400 Body mass index (BMI) [Ratio] 26.6 kg/m2 Dr. Bird Ronquillo Work Phone: [facility] 09-29-2023 17:17-0400 Body temperature 97.8 [degF] Dr. Bird Ronquillo Work Phone: [facility] 09-29-2023 17:17-0400 Body weight 74.[address] Bird Ronquillo Work Phone: [facility] 09-29-2023 17:17-0400 Diastolic blood pressure 119 mm[Hg] Dr. Bird Ronquillo Work Phone: [facility] 09-29-2023 17:17-0400 Heart rate 76 /min Dr. Bird Ronquillo Work Phone: [facility] 09-29-2023 17:17-0400 Respiratory rate 18 /min Dr. Bird Ronquillo Work Phone: [facility] 09-29-2023 17:17-0400 SaO2% (BldA) [Mass fraction] 97 % Dr. Bird Ronquillo Work Phone: [facility] 09-29-2023 17:17-0400 Systolic blood pressure 140 mm[Hg] Dr. Bird Ronquillo Work Phone: [facility] 09-11-2023 16:09-0400 Body weight 77.02 kg Tatiana Ronquillo MD Work Phone: [facility] 09-11-2023 16:09-0400 Diastolic blood pressure 66 mm[Hg] Tatiana Ronquillo MD Work Phone: [facility] 09-11-2023 16:09-0400 Heart rate 71 /min Tatiana Ronquillo MD Work Phone: [facility] 09-11-2023 16:09-0400 Respiratory rate 16 /min Tatiana Ronquillo MD Work Phone: [facility] 09-11-2023 16:09-0400 SaO2% (BldA) [Mass fraction] 93 % Tatiana Ronquillo MD Work Phone: [facility] 09-11-2023 16:09-0400 Systolic blood pressure 106 mm[Hg] aTtiana Ronquillo MD Work Phone: [facility] 09-04-2023 14:15-0400 Diastolic blood pressure 92 mm[Hg] Isidro Lipscomb MD Work Phone: [facility] 09-04-2023 14:15-0400 Heart rate 55 /min Isidro Lipscomb MD Work Phone: [facility] 09-04-2023 14:15-0400 Respiratory rate 17 /min Isidro Lipscomb MD Work Phone: [facility] 09-04-2023 14:15-0400 SaO2% (BldA) [Mass fraction] 95 % Isidro Lipscomb MD Work Phone: [facility] 09-04-2023 14:15-0400 Systolic blood pressure 134 mm[Hg] Isidro Lipscomb MD Work Phone: [facility] 09-04-2023 13:49-0400 Body temperature 97.3 [degF] Isidro Lipscomb MD Work Phone: [facility] 09-04-2023 12:54-0400 Body height 167.6 cm Isidro Lipscomb MD Work Phone: [facility] 09-04-2023 12:54-0400 Body weight 75.3 kg Isidro Lipscomb MD Work Phone: [facility] 08-18-2023 14:34-0400 Body height 167.6 cm Isidro Lipscomb MD Work Phone: [facility] 08-18-2023 14:34-0400 Body temperature 97 [degF] Isidro Lipscomb MD Work Phone: [facility] 08-18-2023 14:34-0400 Body weight 75.48 kg Isidro Lipscomb MD Work Phone: [facility] 08-18-2023 14:34-0400 Diastolic blood pressure 82 mm[Hg] Isidro Lipscomb MD Work Phone: [facility] 08-18-2023 14:34-0400 Heart rate 71 /min Isidro Lipscomb MD Work Phone: [facility] 08-18-2023 14:34-0400 SaO2% (BldA) [Mass fraction] 97 % Isidro Lipscomb MD Work Phone: [facility] 08-18-2023 14:34-0400 Systolic blood pressure 140 mm[Hg] Isidro Lipscomb MD Work Phone: [facility] 08-14-2023 18:50-0400 Body temperature 98.6 [degF] Dr. Bird Ronquillo Work Phone: 3(717)851-941841 [place] [address] 08-14-2023 18:50-0400 Diastolic blood pressure 69 mm[Hg] Dr. Bird Ronquillo Work Phone: 6(932)958-139059 [place] [address] 08-14-2023 18:50-0400 Heart rate 72 /min Dr. Bird Ronquillo Work Phone: 6(070)969-657559 [place] [address] 08-14-2023 18:50-0400 Respiratory rate 22 /min Dr. Bird Ronquillo Work Phone: 4(830)548-522659 [place] [address] 08-14-2023 18:50-0400 SaO2% (BldA) [Mass fraction] 92 % Dr. Bird Ronquillo Work Phone: 2(054)781-911759 [place] [address] 08-14-2023 18:50-0400 Systolic blood pressure 149 mm[Hg] Dr. Bird Ronquillo Work Phone: 8(847)250-957759 [place] [address] 08-14-2023 14:46-0400 Body height 167.[address] Bird Ronquillo Work Phone: 3(252)184-039459 [place] [address] 08-14-2023 14:46-0400 Body mass index (BMI) [Ratio] 27 kg/m2 Dr. Bird Ronquillo Work Phone: 0(662)540-335459 [place] [address] 08-14-2023 14:46-0400 Body weight 76.[address] Bird Ronquillo Work Phone: 9(044)475-537059 [place] [address] 06-19-2023 13:09-0500 Body mass index (BMI) [Ratio] 26.1 kg/m2 Dr. Bird Ronquillo Work Phone: 3(035)327-917859 [place] [address] 06-19-2023 13:09-0500 Body temperature 96.2 [degF] Dr. Bird Ronquillo Work Phone: 2(414)029-835359 [place] [address] 06-19-2023 13:09-0500 Body weight 73.[address] Bird Ronquillo Work Phone: 7(095)610-360059 [place] [address] 06-19-2023 13:09-0500 Diastolic blood pressure 71 mm[Hg] Dr. Bird Ronquillo Work Phone: [facility] 06-19-2023 13:09-0500 Heart rate 61 /min Dr. Bird Ronquillo Work Phone: [facility] 06-19-2023 13:09-0500 Respiratory rate 20 /min Dr. Bird Ronquillo Work Phone: [facility] 06-19-2023 13:09-0500 SaO2% (BldA) [Mass fraction] 95 % Dr. Bird Ronquillo Work Phone: [facility] 06-19-2023 13:09-0500 Systolic blood pressure 118 mm[Hg] Dr. Bird Ronquillo Work Phone: [facility] 03-13-2023 19:41-0400 Respiratory rate 16 /min [facility] Work Phone: 1(514)453-354806 [place] [address] 03-13-2023 15:41-0400 Body height 167.64 cm [facility] Work Phone: 4(377)748-110006 [place] [address] 03-13-2023 15:41-0400 Body mass index (BMI) [Ratio] 24.2 kg/m2 [facility] Work Phone: 3(773)094-059206 [place] [address] 03-13-2023 15:41-0400 Body temperature 97.3 [degF] [facility] Work Phone: 8(403)959-117806 [place] [address] 03-13-2023 15:41-0400 Body weight 68.03 kg [facility] Work Phone: 7(090)450-128806 [place] [address] 03-13-2023 15:41-0400 Diastolic blood pressure 73 mm[Hg] [facility] Work Phone: 4(087)937-050706 [place] [address] 03-13-2023 15:41-0400 Heart rate 62 /min [facility] Work Phone: 5(284)766-211606 [place] [address] 03-13-2023 15:41-0400 SaO2% (BldA) [Mass fraction] 97 % [facility] Work Phone: 5(370)285-618306 [place] [address] 03-13-2023 15:41-0400 Systolic blood pressure 149 mm[Hg] [facility] Work Phone: [facility] 02-07-2023 12:44-0400 Body weight 67.13 kg Barrett Cordovater IN HOME SALES CONSULTANT.MESSENGER COPY Work Phone: [facility] 02-07-2023 12:44-0400 Diastolic blood pressure 73 mm[Hg] Barrett Senoia IN HOME SALES CONSULTANT.MESSENGER COPY Work Phone: [facility] 02-07-2023 12:44-0400 Heart rate 73 /min Barrett Senoia IN HOME SALES CONSULTANT.MESSENGER COPY Work Phone: [facility] 02-07-2023 12:44-0400 SaO2% (BldA) [Mass fraction] 93 % Barrett Senoia IN HOME SALES CONSULTANT.MESSENGER COPY Work Phone: [facility] 02-07-2023 12:44-0400 Systolic blood pressure 153 mm[Hg] Barrett Bridgespster IN HOME SALES CONSULTANT.MESSENGER COPY Work Phone: [facility] 12-14-2022 12:54-0400 Body mass index (BMI) [Ratio] 25.2 kg/m2 [facility] Work Phone: [facility] 12-14-2022 12:54-0400 Body temperature 97.6 [degF] [facility] Work Phone: 2(472)010-753501 [place] [address] 12-14-2022 12:54-0400 Body weight 66.67 kg [facility] Work Phone: [facility] 12-14-2022 12:54-0400 Diastolic blood pressure 77 mm[Hg] [facility] Work Phone: 0(332)255-184301 [place] [address] 12-14-2022 12:54-0400 Heart rate 93 /min [facility] Work Phone: [facility] 12-14-2022 12:54-0400 Respiratory rate 18 /min [facility] Work Phone: [facility] 12-14-2022 12:54-0400 SaO2% (BldA) [Mass fraction] 97 % [facility] Work Phone: 7(564)368-590306 [place] [address] 12-14-2022 12:54-0400 Systolic blood pressure 126 mm[Hg] [facility] Work Phone: 6(491)321-489206 [place] [address] 12-01-2022 15:36-0400 Body height 162.56 cm [facility] Work Phone: 6(497)174-895006 [place] [address] 12-01-2022 15:36-0400 Body mass index (BMI) [Ratio] 25.4 kg/m2 [facility] Work Phone: 0(789)720-490506 [place] [address] 12-01-2022 15:36-0400 Body temperature 97.6 [degF] [facility] Work Phone: 0(963)733-397306 [place] [address] 12-01-2022 15:36-0400 Body weight 67.22 kg [facility] Work Phone: 0(949)961-434406 [place] [address] 12-01-2022 15:36-0400 Diastolic blood pressure 92 mm[Hg] [facility] Work Phone: 8(527)289-585506 [place] [address] 12-01-2022 15:36-0400 Heart rate 92 /min [facility] Work Phone: 8(813)694-694706 [place] [address] 12-01-2022 15:36-0400 Respiratory rate 14 /min [facility] Work Phone: 7(324)468-962706 [place] [address] 12-01-2022 15:36-0400 SaO2% (BldA) [Mass fraction] 99 % [facility] Work Phone: 1(814)223-978506 [place] [address] 12-01-2022 15:36-0400 Systolic blood pressure 154 mm[Hg] [facility] Work Phone: 2(401)147-581406 [place] [address] 11-16-2022 21:12-0400 Diastolic blood pressure 74 mm[Hg] [facility] Work Phone: 6(404)008-640606 [place] [address] 11-16-2022 21:12-0400 Heart rate 67 /min [facility] Work Phone: 8(805)105-601206 [place] [address] 11-16-2022 21:12-0400 Respiratory rate 16 /min [facility] Work Phone: 7(475)303-751801 [place] [address] 11-16-2022 21:12-0400 SaO2% (BldA) [Mass fraction] 96 % [facility] Work Phone: 2(566)722-361706 [place] [address] 11-16-2022 21:12-0400 Systolic blood pressure 149 mm[Hg] [facility] Work Phone: 0(696)144-745806 [place] [address] 11-16-2022 19:02-0400 Body height 162.56 cm [facility] Work Phone: 5(503)819-587606 [place] [address] 11-16-2022 19:02-0400 Body mass index (BMI) [Ratio] 26.1 kg/m2 [facility] Work Phone: 7(063)486-218306 [place] [address] 11-16-2022 19:02-0400 Body temperature 97 [degF] [facility] Work Phone: 9(325)990-249406 [place] [address] 11-16-2022 19:02-0400 Body weight 69.1 kg [facility] Work Phone: 4(209)413-302906 [place] [address] 11-07-2022 16:17-0400 Body temperature 97.59 [degF] Krislyn Aberegg PA Work Phone: [facility] 11-07-2022 16:17-0400 Body weight 69.49 kg Krislyn Aberegg PA Work Phone: [facility] 11-07-2022 16:17-0400 Diastolic blood pressure 90 mm[Hg] Krislyn Aberegg PA Work Phone: [facility] 11-07-2022 16:17-0400 Heart rate 86 /min Krislyn Aberegg PA Work Phone: [facility] 11-07-2022 16:17-0400 Respiratory rate 18 /min Krislyn Aberegg PA Work Phone: [facility] 11-07-2022 16:17-0400 SaO2% (BldA) [Mass fraction] 94 % Krislyn Aberegg PA Work Phone: [facility] 11-07-2022 16:17-0400 Systolic blood pressure 130 mm[Hg] Christiano SUÁREZ Work Phone: [facility] 11-03-2022 03:33-0400 Diastolic blood pressure 68 mm[Hg] [facility] Work Phone: 9(333)130-614806 [place] [address] 11-03-2022 03:33-0400 Systolic blood pressure 150 mm[Hg] [facility] Work Phone: 6(183)677-008706 [place] [address] 11-03-2022 03:00-0400 Heart rate 66 /min [facility] Work Phone: 1(072)464-095906 [place] [address] 11-03-2022 03:00-0400 Respiratory rate 20 /min [facility] Work Phone: 7(759)392-234606 [place] [address] 11-03-2022 03:00-0400 SaO2% (BldA) [Mass fraction] 91 % [facility] Work Phone: 2(054)606-296806 [place] [address] 11-02-2022 23:40-0400 Body height 170.18 cm [facility] Work Phone: 3(903)140-358706 [place] [address] 11-02-2022 23:40-0400 Body mass index (BMI) [Ratio] 23.8 kg/m2 [facility] Work Phone: 7(914)274-015106 [place] [address] 11-02-2022 23:40-0400 Body temperature 96.6 [degF] [facility] Work Phone: 5(875)586-767406 [place] [address] 11-02-2022 23:40-0400 Body weight 68.94 kg [facility] Work Phone: 8(553)859-751706 [place] [address] 10-21-2022 19:51-0400 Diastolic blood pressure 77 mm[Hg] [facility] Work Phone: 4(547)364-327806 [place] [address] 10-21-2022 19:51-0400 Heart rate 81 /min [facility] Work Phone: 7(700)491-282906 [place] [address] 10-21-2022 19:51-0400 Respiratory rate 20 /min [facility] Work Phone: 9(523)764-465506 [place] [address] 10-21-2022 19:51-0400 SaO2% (BldA) [Mass fraction] 95 % [facility] Work Phone: 2(309)931-832906 [place] [address] 10-21-2022 19:51-0400 Systolic blood pressure 173 mm[Hg] [facility] Work Phone: 5(360)771-532106 [place] [address] 10-21-2022 14:55-0400 Body mass index (BMI) [Ratio] 24.7 kg/m2 [facility] Work Phone: 4(160)378-457406 [place] [address] 10-21-2022 14:55-0400 Body weight 69.5 kg [facility] Work Phone: 2(984)590-004606 [place] [address] 10-21-2022 14:25-0400 Body temperature 98.9 [degF] [facility] Work Phone: 4(695)231-189806 [place] [address] 09-29-2022 12:59-0400 Body mass index (BMI) [Ratio] 23.9 kg/m2 [facility] Work Phone: 5(401)483-028206 [place] [address] 09-29-2022 12:59-0400 Body weight 69.39 kg [facility] Work Phone: 7(405)980-333806 [place] [address] 09-29-2022 12:59-0400 Diastolic blood pressure 66 mm[Hg] [facility] Work Phone: 0(425)718-731906 [place] [address] 09-29-2022 12:59-0400 Heart rate 68 /min [facility] Work Phone: 8(428)848-008206 [place] [address] 09-29-2022 12:59-0400 Respiratory rate 18 /min [facility] Work Phone: 8(231)063-111306 [place] [address] 09-29-2022 12:59-0400 SaO2% (BldA) [Mass fraction] 96 % [facility] Work Phone: 4(376)717-414906 [place] [address] 09-29-2022 12:59-0400 Systolic blood pressure 116 mm[Hg] [facility] Work Phone: 2(089)124-659006 [place] [address] 09-13-2022 12:24-0400 Body mass index (BMI) [Ratio] 24.5 kg/m2 [facility] Work Phone: 9(719)441-026906 [place] [address] 09-13-2022 12:24-0400 Body temperature 97.4 [degF] [facility] Work Phone: 3(339)633-738506 [place] [address] 09-13-2022 12:24-0400 Body weight 68.94 kg [facility] Work Phone: 8(721)189-539806 [place] [address] 09-13-2022 12:24-0400 Diastolic blood pressure 69 mm[Hg] [facility] Work Phone: 3(166)704-358306 [place] [address] 09-13-2022 12:24-0400 Heart rate 75 /min [facility] Work Phone: 5(812)927-111806 [place] [address] 09-13-2022 12:24-0400 Respiratory rate 18 /min [facility] Work Phone: 9(122)573-942006 [place] [address] 09-13-2022 12:24-0400 SaO2% (BldA) [Mass fraction] 90 % [facility] Work Phone: 2(214)842-854106 [place] [address] 09-13-2022 12:24-0400 Systolic blood pressure 120 mm[Hg] [facility] Work Phone: 1(574)467-316506 [place] [address] 09-03-2022 21:29-0400 Diastolic blood pressure 63 mm[Hg] [facility] Work Phone: 2(778)379-948306 [place] [address] 09-03-2022 21:29-0400 Heart rate 76 /min [facility] Work Phone: 4(782)986-268906 [place] [address] 09-03-2022 21:29-0400 Respiratory rate 14 /min [facility] Work Phone: 7(467)205-830206 [place] [address] 09-03-2022 21:29-0400 SaO2% (BldA) [Mass fraction] 93 % [facility] Work Phone: 3(227)957-485106 [place] [address] 09-03-2022 21:29-0400 Systolic blood pressure 132 mm[Hg] [facility] Work Phone: 6(203)805-156006 [place] [address] 09-03-2022 18:12-0400 Body height 170.18 cm [facility] Work Phone: 5(768)557-905706 [place] [address] 09-03-2022 18:12-0400 Body mass index (BMI) [Ratio] 23.8 kg/m2 [facility] Work Phone: 4(102)421-726406 [place] [address] 09-03-2022 18:12-0400 Body temperature 98.1 [degF] [facility] Work Phone: 7(835)206-570106 [place] [address] 09-03-2022 18:12-0400 Body weight 69.12 kg [facility] Work Phone: 9(000)987-842406 [place] [address] 07-19-2022 14:47-0500 Body height 167.64 cm [facility] Work Phone: 6(442)174-574006 [place] [address] 07-19-2022 14:47-0500 Body mass index (BMI) [Ratio] 25.2 kg/m2 [facility] Work Phone: 1(495)246-904706 [place] [address] 07-19-2022 14:47-0500 Body temperature 98 [degF] [facility] Work Phone: 5(859)742-338006 [place] [address] 07-19-2022 14:47-0500 Body weight 70.87 kg [facility] Work Phone: 0(997)599-162406 [place] [address] 07-19-2022 14:47-0500 Diastolic blood pressure 75 mm[Hg] [facility] Work Phone: 0(703)296-302006 [place] [address] 07-19-2022 14:47-0500 Heart rate 62 /min [facility] Work Phone: 6(177)618-696606 [place] [address] 07-19-2022 14:47-0500 Respiratory rate 16 /min [facility] Work Phone: 4(089)578-595206 [place] [address] 07-19-2022 14:47-0500 SaO2% (BldA) [Mass fraction] 98 % [facility] Work Phone: 2(692)593-410406 [place] [address] 07-19-2022 14:47-0500 Systolic blood pressure 161 mm[Hg] [facility] Work Phone: 2(781)966-246906 [place] [address] 07-13-2022 10:49-0500 Body height 170.18 cm [facility] Work Phone: 9(893)818-019106 [place] [address] 07-13-2022 10:49-0500 Body weight 68.49 kg [facility] Work Phone: 7(535)549-697906 [place] [address] 07-05-2022 08:06-0500 Body mass index (BMI) [Ratio] 23.6 kg/m2 [facility] Work Phone: 0(743)663-311206 [place] [address] 07-01-2022 15:25-0500 Body mass index (BMI) [Ratio] 24.5 kg/m2 [facility] Work Phone: 6(466)679-052706 [place] [address] 07-01-2022 15:25-0500 Body weight 71.21 kg [facility] Work Phone: 8(588)256-026506 [place] [address] 07-01-2022 15:25-0500 Diastolic blood pressure 69 mm[Hg] [facility] Work Phone: 0(106)786-179606 [place] [address] 07-01-2022 15:25-0500 Heart rate 64 /min [facility] Work Phone: 6(797)286-526906 [place] [address] 07-01-2022 15:25-0500 Respiratory rate 18 /min [facility] Work Phone: 2(868)476-693406 [place] [address] 07-01-2022 15:25-0500 Systolic blood pressure 136 mm[Hg] [facility] Work Phone: 8(331)060-046206 [place] [address] 06-30-2022 14:55-0500 Body mass index (BMI) [Ratio] 23.6 kg/m2 [facility] Work Phone: 4(602)460-005306 [place] [address] 06-30-2022 14:55-0500 Body temperature 98 [degF] [facility] Work Phone: 2(505)096-790006 [place] [address] 06-30-2022 14:55-0500 Body weight 68.49 kg [facility] Work Phone: 1(689)104-301906 [place] [address] 06-30-2022 14:55-0500 Diastolic blood pressure 77 mm[Hg] [facility] Work Phone: 8(582)935-006106 [place] [address] 06-30-2022 14:55-0500 Heart rate 68 /min [facility] Work Phone: 4(172)732-958506 [place] [address] 06-30-2022 14:55-0500 Respiratory rate 14 /min [facility] Work Phone: 0(482)177-794006 [place] [address] 06-30-2022 14:55-0500 SaO2% (BldA) [Mass fraction] 95 % [facility] Work Phone: 4(586)668-977506 [place] [address] 06-30-2022 14:55-0500 Systolic blood pressure 175 mm[Hg] [facility] Work Phone: 3(844)613-916106 [place] [address] 06-08-2022 14:09-0500 Body temperature 97.9 [degF] [facility] Work Phone: 8(606)314-337506 [place] [address] 06-08-2022 14:09-0500 Diastolic blood pressure 69 mm[Hg] [facility] Work Phone: 2(017)693-138306 [place] [address] 06-08-2022 14:09-0500 Heart rate 71 /min [facility] Work Phone: 8(432)563-175806 [place] [address] 06-08-2022 14:09-0500 Respiratory rate 18 /min [facility] Work Phone: 8(656)475-799206 [place] [address] 06-08-2022 14:09-0500 SaO2% (BldA) [Mass fraction] 94 % [facility] Work Phone: 3(180)440-435206 [place] [address] 06-08-2022 14:09-0500 Systolic blood pressure 144 mm[Hg] [facility] Work Phone: 0(136)453-975406 [place] [address] 06-08-2022 06:00-0500 Body weight 69.2 kg [facility] Work Phone: 3(925)759-770106 [place] [address] 06-07-2022 17:44-0500 Body height 167.64 cm [facility] Work Phone: 3(089)666-710006 [place] [address] Work Phone: 06-07-2022 17:44-0500 Body mass index (BMI) [Ratio] 24.5 kg/m2 [facility] Work Phone: 5(377)378-162406 [place] [address] 05-05-2022 13:18-0500 Body height 167.6 cm Thelma Jaimes APRN.CNP Work Phone: [facility] 05-05-2022 13:18-0500 Body weight 70.31 kg Thelma Jaimes ANATOLIY Work Phone: [facility] 04-07-2022 16:16-0500 Diastolic blood pressure 54 mm[Hg] [facility] Work Phone: [facility] 04-07-2022 16:16-0500 Heart rate 70 /min [facility] Work Phone: [facility] 04-07-2022 16:16-0500 Respiratory rate 18 /min [facility] Work Phone: [facility] 04-07-2022 16:16-0500 SaO2% (BldA) [Mass fraction] 94 % [facility] Work Phone: [facility] 04-07-2022 16:16-0500 Systolic blood pressure 120 mm[Hg] [facility] Work Phone: [facility] 04-07-2022 15:32-0500 Body height 167.64 cm [facility] Work Phone: 0(723)464-053101 [place] [address] Work Phone: 04-07-2022 15:32-0500 Body mass index (BMI) [Ratio] 25 kg/m2 [facility] Work Phone: [facility] 04-07-2022 15:32-0500 Body temperature 98.2 [degF] [facility] Work Phone: [facility] 04-07-2022 15:32-0500 Body weight 70.3 kg [facility] Work Phone: [facility] 03-24-2022 10:02-0400 Body height 167.6 cm P[address] 1 [facility] 03-24-2022 10:02-0400 Body temperature 98.1 [degF] [facility] 1 [facility] 03-24-2022 10:02-0400 Body weight 70.31 kg Pst 1 [facility] 03-24-2022 10:02-0400 Diastolic blood pressure 67 mm[Hg] Pst 1 [facility] 03-24-2022 10:02-0400 Heart rate 59 /min Pst 1 [facility] 03-24-2022 10:02-0400 SaO2% (BldA) [Mass fraction] 97 % Pst 1 [facility] 03-24-2022 10:02-0400 Systolic blood pressure 141 mm[Hg] Pst 1 [facility] 03-16-2022 12:58-0400 Body mass index (BMI) [Ratio] 24.7 kg/m2 [facility] Work Phone: 3(423)103-300506 [place] [address] 03-16-2022 12:58-0400 Body temperature 97.3 [degF] [facility] Work Phone: 6(881)956-879306 [place] [address] 03-16-2022 12:58-0400 Body weight 69.56 kg [facility] Work Phone: 4(086)316-982306 [place] [address] 03-16-2022 12:58-0400 Diastolic blood pressure 67 mm[Hg] [facility] Work Phone: 0(381)753-645206 [place] [address] 03-16-2022 12:58-0400 Heart rate 66 /min [facility] Work Phone: 0(957)343-836383 [address] 03-16-2022 12:58-0400 Respiratory rate 18 /min [facility] Work Phone: 2(790)919-905706 [place] [address] 03-16-2022 12:58-0400 SaO2% (BldA) [Mass fraction] 96 % [facility] Work Phone: 3(357)139-899806 [place] [address] 03-16-2022 12:58-0400 Systolic blood pressure 120 mm[Hg] [facility] Work Phone: 5(591)288-740283 [address] 02-15-2022 07:55-0400 Body temperature 98.6 [degF] [facility] Work Phone: [facility] Work Phone: 02-15-2022 07:55-0400 Diastolic blood pressure 66 mm[Hg] [facility] Work Phone: [facility] Work Phone: 02-15-2022 07:55-0400 Heart rate 52 /min [facility] Work Phone: [facility] Work Phone: 02-15-2022 07:55-0400 Respiratory rate 16 /min [facility] Work Phone: [facility] Work Phone: 02-15-2022 07:55-0400 SaO2% (BldA) [Mass fraction] 94 % [facility] Work Phone: [facility] Work Phone: 02-15-2022 07:55-0400 Systolic blood pressure 115 mm[Hg] [facility] Work Phone: [facility] Work Phone: 02-03-2022 12:50-0400 Body height 167.[address] P[address] 1 [facility] 02-03-2022 12:50-0400 Body temperature 97.9 [degF] Pst 1 [facility] 02-03-2022 12:50-0400 Body weight 65.77 kg Pst 1 [facility] 02-03-2022 12:50-0400 Diastolic blood pressure 70 mm[Hg] Pst 1 [facility] 02-03-2022 12:50-0400 Heart rate 50 /min Pst 1 [facility] 02-03-2022 12:50-0400 Respiratory rate 16 /min Pst 1 [facility] 02-03-2022 12:50-0400 SaO2% (BldA) [Mass fraction] 97 % Pst 1 [facility] 02-03-2022 12:50-0400 Systolic blood pressure 152 mm[Hg] Pst 1 [facility] 01-11-2022 13:15-0400 Body mass index (BMI) [Ratio] 22.4 kg/m2 [facility] Work Phone: [facility] Work Phone: 01-11-2022 13:15-0400 Body temperature 97.1 [degF] [facility] Work Phone: [facility] Work Phone: 01-11-2022 13:15-0400 Body weight 63.04 kg [facility] Work Phone: [facility] Work Phone: 01-11-2022 13:15-0400 Diastolic blood pressure 73 mm[Hg] [facility] Work Phone: [facility] Work Phone: 01-11-2022 13:15-0400 Heart rate 74 /min [facility] Work Phone: [facility] Work Phone: 01-11-2022 13:15-0400 Respiratory rate 16 /min [facility] Work Phone: [facility] Work Phone: 01-11-2022 13:15-0400 SaO2% (BldA) [Mass fraction] 93 % [facility] Work Phone: [facility] Work Phone: 01-11-2022 13:15-0400 Systolic blood pressure 112 mm[Hg] [facility] Work Phone: [facility] Work Phone: 12-28-2021 13:36-0400 Body height 167.6 cm [employer] Work Phone: [facility] 12-28-2021 13:36-0400 Body weight 66.68 kg [employer] Work Phone: [facility] 12-13-2021 14:53-0400 Body temperature 97.9 [degF] [facility] Work Phone: [facility] Work Phone: 12-13-2021 14:53-0400 Diastolic blood pressure 64 mm[Hg] [facility] Work Phone: [facility] Work Phone: 12-13-2021 14:53-0400 Heart rate 71 /min [facility] Work Phone: [facility] Work Phone: 12-13-2021 14:53-0400 Respiratory rate 16 /min [facility] Work Phone: [facility] Work Phone: 12-13-2021 14:53-0400 SaO2% (BldA) [Mass fraction] 95 % [facility] Work Phone: [facility] Work Phone: 12-13-2021 14:53-0400 Systolic blood pressure 133 mm[Hg] [facility] Work Phone: [facility] Work Phone: 12-13-2021 11:03-0400 Body height 167.64 cm [facility] Work Phone: [facility] Work Phone: 12-13-2021 11:03-0400 Body weight 66.8 kg [facility] Work Phone: [facility] Work Phone: 12-12-2021 22:17-0400 Body mass index (BMI) [Ratio] 23.8 kg/m2 [facility] Work Phone: [facility] Work Phone: 12-12-2021 21:08-0400 Respiratory rate 16 /min [facility] Work Phone: [facility] Work Phone: 12-12-2021 20:59-0400 Body temperature 98.4 [degF] [facility] Work Phone: [facility] Work Phone: 12-12-2021 20:59-0400 Diastolic blood pressure 67 mm[Hg] [facility] Work Phone: [facility] Work Phone: 12-12-2021 20:59-0400 Heart rate 55 /min [facility] Work Phone: [facility] Work Phone: 12-12-2021 20:59-0400 SaO2% (BldA) [Mass fraction] 97 % [facility] Work Phone: [facility] Work Phone: 12-12-2021 20:59-0400 Systolic blood pressure 151 mm[Hg] [facility] Work Phone: [facility] Work Phone: 12-12-2021 18:37-0400 Body height 167.64 cm [facility] Work Phone: [facility] Work Phone: 12-12-2021 18:37-0400 Body mass index (BMI) [Ratio] 22.6 kg/m2 [facility] Work Phone: [facility] Work Phone: 12-12-2021 18:37-0400 Body weight 63.5 kg [facility] Work Phone: [facility] Work Phone: 12-10-2021 16:34-0400 Body mass index (BMI) [Ratio] 23.1 kg/m2 [facility] Work Phone: [facility] Work Phone: 12-10-2021 16:34-0400 Body temperature 97.4 [degF] [facility] Work Phone: [facility] Work Phone: 12-10-2021 16:34-0400 Body weight 64.86 kg [facility] Work Phone: [facility] Work Phone: 12-10-2021 16:34-0400 Diastolic blood pressure 63 mm[Hg] [facility] Work Phone: [facility] Work Phone: 12-10-2021 16:34-0400 Heart rate 75 /min [facility] Work Phone: [facility] Work Phone: 12-10-2021 16:34-0400 Respiratory rate 18 /min [facility] Work Phone: [facility] Work Phone: 12-10-2021 16:34-0400 SaO2% (BldA) [Mass fraction] 94 % [facility] Work Phone: [facility] Work Phone: 12-10-2021 16:34-0400 Systolic blood pressure 123 mm[Hg] [facility] Work Phone: [facility] Work Phone: 12-08-2021 13:29-0400 Body height 167.64 cm [facility] Work Phone: [facility] Work Phone: 12-08-2021 13:29-0400 Body mass index (BMI) [Ratio] 22.8 kg/m2 [facility] Work Phone: [facility] Work Phone: 12-08-2021 13:29-0400 Body temperature 98.2 [degF] [facility] Work Phone: [facility] Work Phone: 12-08-2021 13:29-0400 Body weight 64.41 kg [facility] Work Phone: [facility] Work Phone: 12-08-2021 13:29-0400 Diastolic blood pressure 70 mm[Hg] [facility] Work Phone: [facility] Work Phone: 12-08-2021 13:29-0400 Heart rate 81 /min [facility] Work Phone: [facility] Work Phone: 12-08-2021 13:29-0400 Respiratory rate 16 /min [facility] Work Phone: [facility] Work Phone: 12-08-2021 13:29-0400 SaO2% (BldA) [Mass fraction] 94 % [facility] Work Phone: [facility] Work Phone: 12-08-2021 13:29-0400 Systolic blood pressure 160 mm[Hg] [facility] Work Phone: [facility] Work Phone: 11-01-2021 12:16-0400 Body height 167.64 cm [facility] Work Phone: [facility] Work Phone: 11-01-2021 12:16-0400 Body mass index (BMI) [Ratio] 21.3 kg/m2 [facility] Work Phone: [facility] Work Phone: 11-01-2021 12:16-0400 Body temperature 98.5 [degF] [facility] Work Phone: [facility] Work Phone: 11-01-2021 12:16-0400 Body weight 59.87 kg [facility] Work Phone: [facility] Work Phone: 11-01-2021 12:16-0400 Diastolic blood pressure 73 mm[Hg] [facility] Work Phone: [facility] Work Phone: 11-01-2021 12:16-0400 Heart rate 66 /min [facility] Work Phone: [facility] Work Phone: 11-01-2021 12:16-0400 Respiratory rate 18 /min [facility] Work Phone: [facility] Work Phone: 11-01-2021 12:16-0400 SaO2% (BldA) [Mass fraction] 97 % [facility] Work Phone: [facility] Work Phone: 11-01-2021 12:16-0400 Systolic blood pressure 147 mm[Hg] [facility] Work Phone: [facility] Work Phone: 09-21-2021 13:30-0400 Body temperature 97.1 [degF] [facility] Work Phone: [facility] Work Phone: 09-21-2021 13:30-0400 Diastolic blood pressure 70 mm[Hg] [facility] Work Phone: [facility] Work Phone: 09-21-2021 13:30-0400 Heart rate 45 /min [facility] Work Phone: [facility] Work Phone: 09-21-2021 13:30-0400 Respiratory rate 16 /min [facility] Work Phone: [facility] Work Phone: 09-21-2021 13:30-0400 SaO2% (BldA) [Mass fraction] 99 % [facility] Work Phone: [facility] Work Phone: 09-21-2021 13:30-0400 Systolic blood pressure 134 mm[Hg] [facility] Work Phone: [facility] Work Phone: 09-21-2021 11:33-0400 Body height 168.91 cm [facility] Work Phone: [facility] Work Phone: 09-21-2021 11:33-0400 Body mass index (BMI) [Ratio] 20.6 kg/m2 [facility] Work Phone: [facility] Work Phone: 09-21-2021 11:33-0400 Body weight 58.96 kg [facility] Work Phone: [facility] Work Phone: 08-17-2021 07:58-0400 Body mass index (BMI) [Ratio] 21.1 kg/m2 [facility] Work Phone: [facility] Work Phone: 08-17-2021 07:58-0400 Body temperature 97.4 [degF] [facility] Work Phone: [facility] Work Phone: 08-17-2021 07:58-0400 Body weight 59.42 kg [facility] Work Phone: [facility] Work Phone: 08-17-2021 07:58-0400 Diastolic blood pressure 50 mm[Hg] [facility] Work Phone: [facility] Work Phone: 08-17-2021 07:58-0400 Heart rate 57 /min [facility] Work Phone: [facility] Work Phone: 08-17-2021 07:58-0400 Respiratory rate 17 /min [facility] Work Phone: [facility] Work Phone: 08-17-2021 07:58-0400 SaO2% (BldA) [Mass fraction] 95 % [facility] Work Phone: [facility] Work Phone: 08-17-2021 07:58-0400 Systolic blood pressure 128 mm[Hg] [facility] Work Phone: [facility] Work Phone: 08-17-2021 07:58-0400 Body height 167.64 cm [facility] Work Phone: [facility] Work Phone: 08-17-2021 07:58-0400 Body mass index (BMI) [Ratio] 21.1 kg/m2 [facility] Work Phone: [facility] Work Phone: 08-17-2021 07:58-0400 Body temperature 97.4 [degF] [facility] Work Phone: [facility] Work Phone: 08-17-2021 07:58-0400 Body weight 59.42 kg [facility] Work Phone: [facility] Work Phone: 08-17-2021 07:58-0400 Diastolic blood pressure 50 mm[Hg] [facility] Work Phone: [facility] Work Phone: 08-17-2021 07:58-0400 Heart rate 57 /min [facility] Work Phone: [facility] Work Phone: 08-17-2021 07:58-0400 Respiratory rate 17 /min [facility] Work Phone: [facility] Work Phone: 08-17-2021 07:58-0400 SaO2% (BldA) [Mass fraction] 95 % [facility] Work Phone: [facility] Work Phone: 08-17-2021 07:58-0400 Systolic blood pressure 128 mm[Hg] [facility] Work Phone: [facility] Work Phone: 07-10-2021 14:34-0500 Respiratory rate 16 /min [facility] Work Phone: [facility] Work Phone: 07-10-2021 13:21-0500 Body mass index (BMI) [Ratio] 19.5 kg/m2 [facility] Work Phone: [facility] Work Phone: 07-10-2021 13:21-0500 Body temperature 97.1 [degF] [facility] Work Phone: [facility] Work Phone: 07-10-2021 13:21-0500 Body weight 55 kg [facility] Work Phone: [facility] Work Phone: 07-10-2021 13:21-0500 Diastolic blood pressure 71 mm[Hg] [facility] Work Phone: [facility] Work Phone: 07-10-2021 13:21-0500 Heart rate 74 /min [facility] Work Phone: [facility] Work Phone: 07-10-2021 13:21-0500 SaO2% (BldA) [Mass fraction] 97 % [facility] Work Phone: [facility] Work Phone: 07-10-2021 13:21-0500 Systolic blood pressure 154 mm[Hg] [facility] Work Phone: [facility] Work Phone: Encounters Encounter Date Encounter Type Care Provider Facility Start: 03-26-2025 End: 03-26-2025 ambulatory SHAVONNE DONATO Facility:[facility] Start: 03-11-2025 ambulatory TATIANA RONQUILLO Facility:[facility] Start: 02-26-2025 End: 02-26-2025 ambulatory TATIANA RONQUILLO Facility:[facility] Start: 01-31-2025 End: 01-31-2025 Emergency department patient visit Dr. Bird Ronquillo MD Work Phone: -Emergency Department Work Phone: Start: 01-19-2025 End: 01-19-2025 Emergency department patient visit Dr. Bird Ronquillo MD Work Phone: -Emergency Department Work Phone: Start: 01-08-2025 End: 01-08-2025 Refill Tatiana Ronquillo MD Work Phone: [facility] Comment on above: Refill Request Start: 12-17-2024 End: 12-18-2024 Refill Tatiana Ronquillo MD Work Phone: [facility] Comment on above: Refill Request Start: 12-05-2024 End: 12-05-2024 Patient encounter procedure Robin MATOS -[facility] Work Phone: Start: 12-05-2024 End: 12-05-[address] Bird Ronquillo MD Work Phone: -[facility] Start: 11-28-2024 End: 11-28-2024 Refill Tatiana Ronquillo MD Work Phone: [facility] Comment on above: Refill Request Start: 11-18-2024 End: 11-18-[address] Bird Ronquillo MD Work Phone: [facility] Work Phone: Start: 11-18-2024 End: 11-18-2024 Patient encounter procedure Robin MATOS -[facility] Work Phone: Start: 11-18-2024 End: 11-18-2024 ambulatory Bird Ronquillo Facility:[facility] Start: 11-06-2024 End: 11-06-2024 Refill Tatiana Ronquillo MD Work Phone: [facility] Comment on above: Refill Request Start: 10-23-2024 End: 10-23-2024 Follow-up encounter Tatiana Ronquillo MD Work Phone: [facility] Comment on above: Results Start: 10-23-2024 ambulatory TATIANA RONQUILLO Facility:[facility] Start: 10-23-2024 End: 10-23-2024 Subsequent hospital visit by physician Xr [facility] Work Phone: Radiology Comment on above: Fall (on) (from) oth er stairs and steps, initial encounter [W10.8XXA] Start: 10-23-2024 End: 10-23-2024 Patient encounter procedure Tatiana Ronquillo MD Work Phone: [facility] Comment on above: RLQ abdominal pain ( Primary Dx); RUQ abdominal pain; Fall (on) (from) other stairs and steps, initial encounter; Hematoma of right lower extremity, initial encounter Start: 10-23-2024 End: 10-23-2024 ambulatory TAITANA RONQUILLO Facility:[facility] Start: 10-13-2024 End: 10-13-2024 Emergency department patient visit Dr. Bird Ronquillo MD Work Phone: -Emergency Department Work Phone: Start: 10-03-2024 End: 10-03-2024 Refill Tatiana Ronquillo MD Work Phone: [address] [place] [address] Comment on above: Refill Request Start: 09-30-2024 End: 09-30-2024 Emergency department patient visit Dr. Ed Gorman MD -Emergency Department Work Phone: Start: 08-16-2024 End: 08-28-2024 Follow-up encounter Tatiana Ronquillo MD Work Phone: [facility] Comment on above: Results - Mri Start: 08-15-2024 End: 10-15-2024 Follow-up encounter Tatiana Ronquillo MD Work Phone: [facility] [place] Start: 08-12-2024 End: 08-12-2024 Follow-up encounter Tatiana Ronquillo MD Work Phone: [facility] Comment on above: Results Start: 08-12-2024 End: 08-12-2024 ambulatory TATIANA RONQUILLO Facility:[facility] Start: 08-12-2024 End: 08-12-2024 Subsequent hospital visit by physician Mri Radio [facility] (I-Stat/1.5t) Work Phone: Radiology Comment on above: Hepatic cyst [K76.89 ] Start: 08-08-2024 End: 08-08-2024 ambulatory TATIANA RONQUILLO Facility:[facility] Start: 08-08-2024 End: 08-08-2024 Subsequent hospital visit by physician [facility] Work Phone: Nuclear Medicine Comment on above: Nausea [R11.0] Start: 08-06-2024 End: 08-06-2024 Patient encounter procedure Shavonne Donato APRN.MESSENGER COPY Work Phone: [facility] [place] Comment on above: RUQ pain (Primary Dx ); Nausea; Dark stools; Hepatic cyst Start: 08-06-2024 End: 08-06-2024 ambulatory TATIANA RONQUILLO Facility:[facility] Start: 07-31-2024 End: 07-31-2024 Emergency department patient visit Dr. Raza Ruiz DO -Emergency Department Work Phone: Start: 07-31-2024 End: 09-30-2024 Follow-up encounter Tatiana Ronquillo MD Work Phone: [facility] [place] Start: 07-30-2024 End: 07-30-2024 Refill Tatiana Ronquillo MD Work Phone: [facility] [place] Comment on above: Refill Request Start: 07-22-2024 End: 07-23-2024 Refill Tatiana Ronquillo MD Work Phone: [facility] [place] Comment on above: Refill Request Start: 07-19-2024 End: 07-19-2024 Emergency department patient visit Dr. Colin Caba DO -Emergency Department Work Phone: Start: 07-12-2024 End: 07-12-2024 Follow-up encounter Jennifer Sierra APRN.MESSENGER COPY Work Phone: [facility] [place] Comment on above: Influenza A (Primary Dx) Start: 07-11-2024 End: 07-11-2024 ambulatory TATIANA RONQUILLO Facility:[facility] Start: 07-11-2024 End: 07-11-2024 Office outpatient visit 15 minutes Moraima Solano APRN.MESSENGER COPY Work Phone: [facility] [place] Comment on above: URI, acute (Primary Dx) Start: 07-02-2024 End: 07-02-2024 ambulatory Yamile Cordero PT [place] [facility] Comment on above: Falls frequently (Pr imary Dx); Knee gives out, right; Abnormality of gait; Right leg weakness Start: 2024 End: 2024 ambulatory Yamile O'Mike PT [facility] Physical Therapy Comment on above: Falls frequently (Pr imary Dx); Knee gives out, right; Abnormality of gait; Right leg weakness Start: 06-18-2024 End: 06-19-2024 ambulatory Yamile O'Mike PT [facility] Physical Therapy Comment on above: Falls frequently (Pr imary Dx); Knee gives out, right; Abnormality of gait; Right leg weakness Start: 06-11-2024 End: 06-11-2024 ambulatory Yamile O'Mike PT [facility] Physical Therapy Comment on above: Falls frequently (Pr imary Dx); Knee gives out, right; Abnormality of gait; Right leg weakness Start: 06-06-2024 End: 06-07-2024 Refill Tatiana Ronquillo MD Work Phone: [facility] Comment on above: Refill Request Start: 06-05-2024 End: 06-05-2024 ambulatory Yamile O'Mike PT [facility] Physical Therapy Comment on above: Falls frequently (Pr imary Dx); Knee gives out, right; Abnormality of gait; Right leg weakness Start: 05-20-2024 End: 05-20-2024 Patient encounter procedure Tatiana Ronquilol MD Work Phone: [facility] Comment on above: Gastroesophageal ref lux disease without esophagitis (Primary Dx); Primary hypertension; Mixed hyperlipidemia; Acquired hypothyroidism; Elevated LFTs; Chronic obstructive pulmonary disease, unspecified COPD type (HCC); Moderate recurrent major depression (HCC); Stage 3a chronic kidney disease (HCC) Start: 05-20-2024 End: 05-20-2024 ambulatory TATIANA RONQUILLO Facility:[facility] Start: 05-16-2024 End: 05-16-2024 Patient encounter procedure Robin Gaffney PT DPT Work Phone: [facility] Physical Therapy Comment on above: Abnormality of gait (Primary Dx); Falls frequently; Knee gives out, right; Muscle stiffness; Chronic pain of right knee; Right leg weakness Start: 05-16-2024 End: 05-16-2024 ambulatory Orbin Bebb PT, DPT Work Phone: [facility] Physical Therapy Start: 05-08-2024 End: 05-08-2024 ambulatory Og Raygoza [facility] [place] Start: 05-08-2024 End: 05-08-2024 Patient encounter procedure Og Raygoza MA [facility] [place] Comment on above: Population Health Na vigation Outreach ([facility] [place] [facility] ) Start: 05-02-2024 End: 05-02-2024 Telephone encounter Tatiana Ronquillo MD Work Phone: [facility] Comment on above: Results Start: 05-01-2024 End: 05-01-2024 Telephone encounter Tatiana Ronquillo MD Work Phone: [facility] Comment on above: Results Start: 04-29-2024 End: 04-29-2024 Subsequent hospital visit by physician Alban [facility] [place] Work Phone: Radiology Comment on above: Falls frequently [R2 9.6] Start: 04-29-2024 End: 04-29-2024 Patient encounter procedure Tatiana Ronquillo MD Work Phone: [facility] Comment on above: Falls frequently; Knee gives out, right; History of CVA (cerebrovascular accident); Primary hypertension; Mixed hyperlipidemia; Acquired hypothyroidism Start: 04-29-2024 End: 04-29-2024 ambulatory TATIANA RONQUILLO Facility:[facility] Start: 04-19-2024 End: 04-19-2024 Telephone encounter Sabine Crowley APRN.MESSENGER COPY Work Phone: Radiology Comment on above: Orders Start: 04-19-2024 End: 04-19-2024 ambulatory TATIANA RONQUILLO Facility:[facility] Start: 04-19-2024 End: 04-19-2024 Subsequent hospital visit by physician [facility] Mob 1 Work Phone: Radiology Comment on above: RLQ abdominal mass [ R19.03] Start: 04-18-2024 End: 05-10-2024 Telephone encounter Sabine Crowley APRN.MESSENGER COPY Work Phone: [facility] [place] Comment on above: Results Start: 04-18-2024 ambulatory TATIANA RONQUILLO Facility:[facility] Start: 04-18-2024 End: 04-18-2024 Subsequent hospital visit by physician [facility] Comment on above: Nausea [R11.0] Start: 04-18-2024 End: 04-18-2024 Patient encounter procedure Sabine Crowley APRN.MESSENGER COPY Work Phone: [facility] [place] Comment on above: Nausea (Primary Dx); Right lower quadrant abdominal pain Start: 04-18-2024 End: 04-18-2024 ambulatory SABINE CROWLEY Facility:[facility] Start: 04-17-2024 End: 04-17-2024 Telephone encounter Tatiana Ronquillo MD Work Phone: [facility] [place] Comment on above: Lump right groin Start: 04-12-2024 End: 04-12-2024 Refill Tatiana Ronquillo MD Work Phone: [facility] [place] Comment on above: Refill Request Start: 04-05-2024 End: 04-08-2024 Refill Tatiana Ronquillo MD Work Phone: [facility] [place] Comment on above: Refill Request Start: 04-03-2024 End: 04-08-2024 ambulatory Tatiana Ronquillo MD Work Phone: Internal Medicine [place] [id number] Start: 03-07-2024 End: 03-07-2024 ambulatory Bird Ronquillo Facility:[facility] Start: 02-22-2024 End: 02-22-2024 Telephone encounter Tatiana Ronquillo MD Work Phone: [facility] [place] Comment on above: Results Start: 02-21-2024 End: 02-21-2024 Telephone encounter Tatiana Ronquillo MD Work Phone: [facility] [place] Comment on above: Results Start: 02-20-2024 End: 02-20-2024 Patient encounter procedure Tatiana Ronquillo MD Work Phone: [facility] [place] Comment on above: Colitis (Primary Dx) ; RLQ abdominal pain; Rectal bleeding; Nasal congestion; Rhinorrhea Start: 01-26-2024 End: 01-26-2024 Telephone encounter Tatiana Ronquillo MD Work Phone: [facility] [place] Comment on above: Results Start: 01-24-2024 End: 01-24-2024 ambulatory Og Raygoza [facility] [place] Start: 01-24-2024 End: 01-24-2024 Patient encounter [facility] Comment on above: Population Health Na vigation Outreach ([facility] [place]) Start: 01-23-2024 ambulatory TATIANA RONQUILLO Facility:[facility] Start: 01-23-2024 End: 01-23-2024 Subsequent hospital visit by physician [facility] Comment on above: Right calf pain [M79 .661] Start: 01-22-2024 Emergency department patient visit TATIANA RONQUILLO Facility:[facility] Start: 01-22-2024 End: 01-22-2024 Patient encounter procedure Lena Jeff PARADAMESSENGER COPY Work Phone: [facility] Comment on above: Right calf pain (Nika nilson Dx) Start: 01-17-2024 End: 01-17-2024 Refill Tatiana Ronquillo MD Work Phone: [facility] [place] Comment on above: Refill Request Start: 01-16-2024 End: 01-17-2024 Telephone encounter Tatiana Ronquillo MD Work Phone: [facility] [place] Comment on above: Medication Update Start: 01-11-2024 Refill Tatiana Ronquillo MD Work Phone: [facility] [place] Comment on above: Refill Request Start: 01-08-2024 Refill Tatiana Ronquillo MD Work Phone: [facility] [place] Comment on above: Refill Request Start: 11-23-2023 Refill Tatiana Ronquillo MD Work Phone: [facility] [place] Comment on above: Refill Request Start: 10-26-2023 Telephone encounter Bird Ronquillo MD Work Phone: [facility] Comment on above: Results Start: 10-25-2023 End: 10-25-2023 Patient encounter procedure Tatiana Ronquillo MD Work Phone: [facility] Comment on above: Seasonal allergic rh initis, unspecified trigger (Primary Dx); Acute non-recurrent maxillary sinusitis; Primary hypertension; Chronic obstructive pulmonary disease, unspecified COPD type (HCC); History of tobacco use; Heme positive stool; Mild episode of recurrent major depressive disorder (HCC); History of CVA (cerebrovascular accident); Vitamin D deficiency; Acquired hypothyroidism; Prediabetes; Moderate recurrent major depression (HCC) Start: 10-17-2023 Refill Tatiana Ronquillo MD Work Phone: [facility] Comment on above: Refill Request Start: 10-10-2023 End: 10-10-2023 ambulatory Kashmir Golias PT Work Phone: [facility] Physical Therapy Comment on above: Benign paroxysmal ve rtigo of right ear (Primary Dx) Start: 10-03-2023 End: 10-03-2023 ambulatory Kashmir Golias PT Work Phone: [facility] Comment on above: Benign paroxysmal ve rtigo of right ear (Primary Dx); Benign paroxysmal positional vertigo of right ear Start: 09-29-2023 End: 09-29-2023 Emergency department patient visit Dr. Bird Ronquillo Work Phone: [facility]-Emergency Department Work Phone: Start: 09-14-2023 Telephone encounter Bird Ronquillo MD Work Phone: [facility] Comment on above: Results Start: 09-11-2023 End: 09-11-2023 Patient encounter procedure Tatiana Ronquillo MD Work Phone: [facility] Comment on above: Benign paroxysmal po sitional vertigo of right ear (Primary Dx) Start: 09-07-2023 Refill Tatiana Ronquillo MD Work Phone: [facility] Comment on above: Refill Request Start: 09-06-2023 Telephone encounter Isidro Lipscomb MD Work Phone: General Surgery Comment on above: Results Start: 09-04-2023 ambulatory JUSTO HALEY Facilit y:[facility] Start: 09-04-2023 End: 09-04-2023 Subsequent hospital visit by physician Isidro Lipscomb MD Work Phone: [facility] Endoscopy Comment on above: Screening for colon cancer [Z12.11] Start: 09-01-2023 Telephone encounter Paulo Jackson Gen eral Surgery Comment on above: GI PRE OP CALL Start: 08-18-2023 End: 04-03-2024 Telephone encounter Isidro Lipscomb MD Work Phone: General Surgery Comment on above: 01/08/2024 COLON/EGD DIAGNOSTIC Start: 08-18-2023 End: 08-18-2023 Patient encounter procedure Isidro Lipscomb MD Work Phone: General Surgery Comment on above: Epigastric pain (Nika nilson Dx); Screening for colon cancer; History of colonic polyps; Blood in stool Start: 08-15-2023 Telephone encounter Bird Ronquillo MD Work Phone: [facility] Comment on above: ER F/U Start: 08-14-2023 End: 08-14-2023 Emergency department patient visit Dr. Bird Ronquillo Work Phone: [facility]-Emergency Department Work Phone: Start: 08-14-2023 ambulatory Shawnee Masters RN NURSE USER EXPERIENCE ARCHITECT Comment on above: Balance Start: 08-02-2023 Telephone encounter Bird Ronquillo MD Work Phone: [facility] Comment on above: Results Start: 07-31-2023 End: 07-31-2023 Subsequent hospital visit by physician [facility] Work Phone: Radiology Comment on above: Stage 3a chronic kid preeti disease (HCC) [N18.31] Start: 07-28-2023 Telephone encounter Bird Ronquillo MD Work Phone: [facility] Comment on above: Results Start: 06-19-2023 End: 06-19-[address] Bird Ronquillo Work Phone: [facility] [place] Work Phone: Start: 05-26-2023 End: 05-26-2023 ambulatory TATIANA RONQUILLO Facility:[facility] Start: 05-12-2023 Refill Tatiana Ronquillo MD Work Phone: [facility] Comment on above: Refill Request Start: 03-22-2023 Telephone encounter Bird Ronquillo MD Work Phone: [facility] Comment on above: Results Start: 03-22-2023 End: 03-22-2023 Subsequent hospital visit by physician Diagnostic Mammo [facility] Mammogram Comment on above: No Show Start: 03-16-2023 Telephone encounter Barrett randolph IN HOME SALES CONSULTANT.MESSENGER COPY Work Phone: [facility] Pulmonary Comment on above: Results Start: 03-15-2023 Telephone encounter Bird Ronquillo MD Work Phone: [facility] Comment on above: Medication Problem ( [facility] has had doors locked-unable to shredder picker) Refill Request Start: 03-14-2023 End: 03-14-2023 Subsequent hospital visit by physician Ct [facility] (I-Stat) Work Phone: Cat Scan Comment on above: Lung nodules [R91.8] Start: 03-13-2023 End: 03-13-2023 Emergency department patient visit [facility] Work Phone: [facility]-Emergency Department Work Phone: Start: 03-13-2023 Documentation procedure Mammog evelia Coordinator [facility] Start: 03-13-2023 Letter encounter Mammography Coordinator [facility] Department Start: 03-08-2023 Telephone encounter Bird Ronquillo MD Work Phone: [facility] Comment on above: Medication Question Start: 03-03-2023 Refill Tatiana Ronquillo MD Work Phone: [facility] [place] Comment on above: Refill Request Start: 03-01-2023 End: 03-01-2023 ambulatory Yamile Molly PT [place] [facility] Comment on above: Coccyodynia; Lumbar spondylosis Start: 03-01-2023 Telephone encounter Bird Ronquillo MD Work Phone: [facility] [place] Comment on above: Medication Problem ( Fosamax) Start: 02-25-2023 Telephone encounter Bird Ronquillo MD Work Phone: [facility] [place] Comment on above: Results Start: 02-23-2023 End: 02-23-2023 Subsequent hospital visit by physician Screen Mammo [facility] Mammogram Comment on above: Encounter for screen ing mammogram for breast cancer [Z12.31] Lumbar spondylosis [ M47.816] Start: 02-14-2023 Telephone encounter Bird Ronquillo MD Work Phone: [facility] Comment on above: Results; Medication Problem Start: 02-07-2023 End: 02-07-2023 Subsequent hospital visit by physician Bone Density [facility] Work Phone: Radiology Comment on above: Asymptomatic postmen opausal status [Z78.0] Start: 02-07-2023 End: 02-07-2023 Patient encounter procedure Barrett Falk IN HOME SALES CONSULTANT.MESSENGER COPY Work Phone: Pulmonary Medicine Comment on above: Encounter for screen ing for lung cancer (Primary Dx); Former tobacco use; Lung nodules Start: 02-01-2023 Telephone encounter Bird Ronquillo MD Work Phone: [facility] [place] Comment on above: Results Start: 01-31-2023 Telephone encounter Bird Ronquillo MD Work Phone: [facility] [place] Comment on above: Medication Problem Start: 01-06-2023 End: 01-06-2023 Subsequent hospital visit by physician [facility] Comment on above: Left thigh pain [M79 .652] Start: 12-30-2022 End: 12-30-2022 Patient encounter procedure Lili Bob PA-C Work Phone: [facility] Plastic Surgery Comment on above: Left thigh pain (Nika nilson Dx) Start: 12-23-2022 Telephone encounter Shavonne allison APRN.MESSENGER COPY Work Phone: [facility] Comment on above: Results Start: 12-19-2022 End: 12-19-2022 Subsequent hospital visit by physician Xr [facility] Work Phone: Radiology Comment on above: Coccyodynia [M53.3] Start: 12-14-2022 End: 12-14-2022 Patient encounter procedure [facility] Work Phone: [facility]-Pulmonary Medicine [facility] Work Phone: Start: 12-01-2022 End: 12-01-2022 Emergency department patient visit [facility] Start: 11-16-2022 End: 11-16-2022 Emergency department patient visit [facility] Work Phone: [facility]-Emergency Department Start: 11-14-2022 End: 11-14-2022 Patient encounter procedure Thelma Jaimes APRN.MESSENGER COPY Work Phone: [facility] Plastic [facility] Comment on above: Post-operative state (Primary Dx); Painful scar Start: 11-07-2022 End: 11-07-2022 Patient encounter procedure Christiano SUÁREZ Work Phone: [facility] Comment on above: Acute right-sided lo w back pain with right-sided sciatica (Primary Dx) Start: 11-02-2022 End: 11-03-2022 Emergency department patient visit [facility] Work Phone: [facility]-Emergency Department Start: 11-01-2022 Telephone encounter Jeff hernandez MD Work Phone: [facility] General Plastic Surgery Comment on above: Other Start: 10-21-2022 End: 10-21-2022 Emergency department patient visit [facility] Work Phone: [facility]-Emergency Department Start: 09-29-2022 End: 09-29-2022 Patient encounter procedure [facility] Work Phone: [facility] [facility] Start: 09-13-2022 End: 09-13-2022 Patient encounter procedure [facility] Work Phone: [facility]-Pulmonary Medicine [facility] Start: 09-03-2022 End: 09-03-2022 Emergency department patient visit [facility] Work Phone: [facility]-Emergency Department Start: 08-24-2022 End: 08-24-2022 ambulatory [facility] Work Phone: [facility] Work Phone: Start: 08-24-2022 End: 08-24-2022 Discharged Recurring [facility] Work Phone: [facility]-Physical Therapy Start: 07-25-2022 End: 07-25-2022 Patient encounter procedure [facility] Work Phone: [facility] Orthopaedic Specia Start: 07-19-2022 End: 07-19-2022 Emergency department patient visit [facility] Work Phone: [facility]-Emergency Department Start: 07-18-2022 End: 07-18-2022 ambulatory [facility] Work Phone: [facility] Work Phone: Start: 07-18-2022 End: 07-18-2022 Patient encounter procedure [facility] Work Phone: [facility] Start: 07-13-2022 End: 07-13-2022 Admission to same day surgery center [facility] Work Phone: [facility]-Flask Cleaner/Special Procedures Start: 07-13-2022 End: 07-13-2022 ambulatory [facility] Work Phone: [facility] Work Phone: Start: 07-01-2022 End: 07-01-2022 Patient encounter procedure [facility] Work Phone: [facility] Heart Group Start: 06-30-2022 End: 06-30-2022 Emergency department patient visit [facility] Work Phone: [facility]-Emergency Department Start: 06-30-2022 Non-patient / Non-visit [facility] Work Phone: [facility] Start: 06-14-2022 Registered Referred [facility] Work Phone: [facility]-Cardiovascular Services Start: 06-08-2022 Non-patient / Non-visit [facility] Work Phone: [facility] Inpatient Physicians Start: 06-08-2022 Non-patient / Non-visit [facility] Work Phone: [facility] Start: 06-07-2022 End: 06-07-2022 Non-patient / Non-visit [facility] Work Phone: [facility] Start: 06-07-2022 End: 06-08-2022 Evaluation and management of inpatient [facility] Work Phone: [facility]-Progressive Care Unit Start: 06-07-2022 End: 06-08-2022 observation encounter [facility] Work Phone: [facility] Work Phone: Start: 06-02-2022 End: 06-02-2022 Patient encounter procedure [facility] Work Phone: [facility] Start: 05-05-2022 End: 05-05-2022 Patient encounter procedure Thelma Jaimes APRN.CNP Work Phone: [facility] General Plastic Surgery Comment on above: Post-operative state (Primary Dx) Start: 04-19-2022 End: 04-19-2022 ambulatory [facility] Work Phone: [facility] Work Phone: Start: 04-19-2022 End: 04-19-2022 Patient encounter procedure [facility] Work Phone: [facility]-Radiology, [facility] Start: 04-07-2022 End: 04-07-2022 Emergency department patient visit [facility] Work Phone: [facility]-Emergency Department Start: 03-24-2022 End: 03-24-2022 Admission to establishment [facility] [facility] [address] [employer] [facility] Start: 03-24-2022 End: 03-24-2022 ambulatory Pst 1 Pre Surgical Testing Comment on above: Preop examination [Z 01.818 (ICD-10-CM)] (Primary Dx); Former smoker [Z87.891 (ICD-10-CM)]; History of CVA (cerebrovascular accident) [Z86.73 (ICD-10-CM)]; Hyperlipidemia, unspecified hyperlipidemia type [E78.5 (ICD-10-CM)]; Hypertension, unspecified type [I10 (ICD-10-CM)]; Chronic obstructive pulmonary disease, unspecified COPD type (HCC) [J44.9 (ICD-10-CM)]; Left leg pain [M79.605 (ICD-10-CM)] Start: 03-24-2022 End: 03-24-2022 Preprocedural examination done Pst 1 Pre Surgical Testing Start: 03-16-2022 End: 03-16-2022 Patient encounter procedure [facility] Work Phone: [facility] Medicine [facility] Start: 02-15-2022 End: 02-15-2022 Patient encounter procedure [facility] Start: 02-03-2022 End: 02-03-2022 Admission to establishment [facility] [address] [employer] Start: 02-03-2022 End: 02-03-2022 ambulatory Pst 1 Pre Surgical Testing Comment on above: Preop examination [Z 01.818 (ICD-10-CM)] (Primary Dx); History of smoking 30 or more pack years [Z87.891 (ICD-10-CM)]; History of stroke [Z86.73 (ICD-10-CM)]; Hyperlipidemia, unspecified hyperlipidemia type [E78.5 (ICD-10-CM)]; Hypertension, unspecified type [I10 (ICD-10-CM)]; Chronic obstructive pulmonary disease, unspecified COPD type (HCC) [J44.9 (ICD-10-CM)]; Left leg pain [M79.605 (ICD-10-CM)] Start: 02-03-2022 End: 02-03-2022 Preprocedural examination done Pst 1 Pre Surgical Testing Start: 01-18-2022 End: 01-18-2022 Patient encounter procedure [facility] Work Phone: [facility] Start: 01-11-2022 End: 01-11-2022 Emergency department patient visit [facility] Work Phone: [facility]Emergency Department Start: 01-05-2022 Orders Only Jeff kearns MD Work Phone: Plastic Surgery Comment on above: Left leg pain (Prima ry Dx) Start: 12-29-2021 End: 12-29-2021 Patient encounter procedure Lj De Santiago Work Phone: Podiatry Comment on above: Open wound of toe, i nitial encounter (Primary Dx) Start: 12-28-2021 End: 12-28-2021 Patient encounter procedure Jeff Victor MD Work Phone: Plastic Surgery Comment on above: Left leg pain (Prima ry Dx) Start: 12-27-2021 End: 12-27-2021 Patient encounter procedure [facility] Work Phone: [facility]-Laboratory Start: 12-13-2021 Non-patient / Non-visit [facility] Work Phone: [facility] Inpatient Physicians Start: 12-12-2021 End: 12-13-2021 Evaluation and management of inpatient [facility] Work Phone: [facility]-Medical Surgical 3 Start: 12-10-2021 End: 12-10-2021 Emergency department patient visit [facility] Work Phone: [facility]Emergency Department Start: 12-08-2021 End: 12-08-2021 Emergency department patient visit [facility] Work Phone: [facility]Emergency Department Start: 11-01-2021 End: 11-01-2021 Emergency department patient visit [facility] Work Phone: [facility]-Emergency Department Start: 10-20-2021 Refill Halle SUÁREZ -Kira Work Phone: [facility] Comment on above: Refill Request Start: 09-29-2021 Telephone encounter Halle bae PA-C Work Phone: [facility] Comment on above: Results Start: 09-21-2021 Non-patient / Non-visit [facility] Work Phone: [facility]-BGI Start: 09-21-2021 End: 09-21-2021 Admission to same day surgery center [facility] Work Phone: [facility]-Endoscopy Start: 08-26-2021 End: 08-26-2021 Patient encounter procedure [facility] Work Phone: [facility] Start: 08-19-2021 End: 08-19-2021 Patient encounter procedure [facility] Work Phone: [facility]-Outpatient Breast Imaging Start: 08-17-2021 End: 08-17-2021 Patient encounter procedure [facility] Work Phone: [facility]-Pulmonary Medicine [facility] Start: 07-21-2021 End: 07-21-2021 Patient encounter procedure [facility] Work Phone: [facility] Gastroenterology Start: 07-12-2021 End: 07-12-2021 Patient encounter procedure [facility] Work Phone: [facility]Ultrasound, [facility] Start: 07-10-2021 End: 07-10-2021 Emergency department patient visit [facility] Work Phone: [facility]-Emergency Department Start: 07-08-2021 End: 07-08-2021 Discharged Recurring [facility] Work Phone: [facility]-Occupational Therapy Start: 07-08-2021 Registered Recurring [facility] Work Phone: [facility]-Occupational Therapy Start: 07-06-2021 End: 07-06-2021 Patient encounter procedure [facility] Work Phone: [facility]-Laboratory Start: 06-04-2021 End: 06-04-2021 Patient encounter procedure [facility] Work Phone: [facility] Orthopaedic Specia Start: 05-17-2021 End: 05-17-2021 Patient encounter procedure [facility] Work Phone: [facility] Orthopaedic Specia Start: 04-30-2021 End: 04-30-2021 Patient encounter procedure [facility] Work Phone: [facility] Orthopaedic Specia Procedures Date Procedure Procedure Detail Performing Clinician Start: 01-31-2025 CT of head without contrast Dr. Richa Ronquillo MD Work Phone: Start: 01-31-2025 Plain x-ray of hand Dr. Bird Ronquillo MD Work Phone: Start: 01-31-2025 Plain X-ray of shoulder Dr. Bird Ronquillo MD Work Phone: Start: 01-19-2025 X-ray of lumbar spine, two or three views Dr. Bird Ronquillo MD Work Phone: Start: 11-18-[address] Bird Ronquillo MD Work Phone: Start: 10-23-2024 Radiologic examination tibia & fibula 2 views Tatiana Ronquillo MD Work Phone: Start: 10-13-2024 Urnls dip stick/tablet reagent auto microscopy Dr. Bird Ronquillo MD Work Phone: Start: 10-13-[address] Chris Ronquillo MD Work Phone: Start: 10-13-2024 Computed tomography of abdomen and pelvis with intravenous contrast Dr. Bird Ronquillo MD Work Phone: Start: 09-30-[address] Chris Ronquillo MD Work Phone: Start: 09-30-2024 Computed tomography of abdomen and pelvis with intravenous contrast Dr. Bird Ronquillo MD Work Phone: Start: 08-08-2024 Hepatobil syst imag inc gb w/pharma intervenj Shavonne Podlogar [employer] Work Phone: Start: 07-31-2024 Computed tomography of abdomen and pelvis with intravenous contrast Dr. Bird Ronquillo MD Work Phone: Start: 07-31-2024 Urnls dip stick/tablet reagent auto microscopy Dr. Bird Ronquillo MD Work Phone: Start: 07-31-2024 US scan of gallbladder Dr. Bird Ronquillo MD Work Phone: Start: 07-31-[address] Chris Ronquillo MD Work Phone: Start: 07-19-2024 Measurement of renal function Dr. Jorje Ronquillo MD Work Phone: Comment on above: GFR Calc Start: 07-19-2024 US scan of gallbladder Dr. Bird Ronquillo MD Work Phone: Start: 07-19-2024 Plain chest X-ray Dr. Bird Ronquillo MD Work Phone: Start: 04-29-2024 Lipid 1996 panel - Serum or Plasma Chris Ronquillo MD Work Phone: Start: 04-18-2024 Ct abdomen & pelvis w/contrast material Sabine Crowley [employer] Work Phone: Start: 01-23-2024 Dup-scan xtr veins unilateral/limited study Yamile Diallo-Lagroux DO Work Phone: Start: 09-04-2023 Esophagogastroduodenoscopy transoral diagnostic Isidro Lipscomb MD Work Phone: Start: 09-04-2023 Colonoscopy flx dx w/collj spec when pfrmd Isidro Lipscomb MD Work Phone: Start: 09-04-2023 Colonoscopy Isidro Lipscomb MD Work Phone: Start: 08-14-2023 Plain chest X-ray Dr. Bird Ronquillo Work Phone: Start: 03-22-2023 Digital breast tomosynthesis unilateral Tatiana Ronquillo MD Work Phone: Start: 03-14-2023 Ct thorax w/o contrast material Barrett Falk IN [employer]GER [employer] Work Phone: Start: 03-13-2023 Computed tomography of abdomen and pelvis with intravenous contrast [facility] Work Phone: Start: 02-23-2023 Screening mammography bi 2-view breast inc cad Tatiana Ronquillo MD Work Phone: Start: 02-23-2023 Radex spine lumbosacral minimum 4 views Neal Guevara MD Work Phone: Start: 02-07-2023 Dxa bone density study 1/> sites axial skel Tatiana Ronquillo MD Work Phone: Start: 01-26-2023 Lipid 1996 panel - Serum or Plasma Nina Jacinto IN [employer] Work Phone: Start: 12-19-2022 Radex sacrum & coccyx minimum 2 views Shavonne Donato IN [employer]SULT[employer] Work Phone: Start: 11-16-2022 Computed tomography of abdomen and pelvis with intravenous contrast [facility] Work Phone: Start: 11-16-2022 CT angiography of chest with contrast [facility] Work Phone: Start: 11-07-2022 Urnls dip stick/tablet rgnt auto w/o microscopy Lena Aguilar APRN.[employer]ENGER [employer] Work Phone: Start: 11-03-2022 Computed tomography of abdomen and pelvis with intravenous contrast [facility] Work Phone: Start: 11-03-2022 CT angiography of chest with contrast [facility] Work Phone: Start: 11-03-2022 Plain chest X-ray [facility] Work Phone: Start: 10-21-2022 Transvaginal echography [facility] Work Phone: Start: 10-21-2022 Computed tomography of abdomen and pelvis with intravenous contrast [facility] Work Phone: Start: 09-03-2022 Plain chest X-ray [facility] Work Phone: Start: 09-03-2022 SARS-CoV-2 & FLU Antigen (Rapid) [facility] Work Phone: Start: 07-19-2022 Plain x-ray of hand [facility] Work Phone: Start: 07-19-2022 Radiologic examination of [facility] Work Phone: Start: 07-18-2022 MRI of cervical spine [facility] Work Phone: Start: 06-07-2022 MRI of brain without contrast [facility] Work Phone: Start: 06-07-2022 CT angiography of head and neck [facility] Work Phone: Start: 06-07-2022 Plain chest X-ray [facility] Work Phone: Start: 06-07-2022 CT of head without contrast [facility] Work Phone: Start: 06-02-2022 X-ray of cervical spine [facility] Work Phone: Start: 04-19-2022 Plain X-ray of shoulder [facility] Work Phone: Start: 01-18-2022 CT of chest [facility] Work Phone: Start: 12-13-2021 Procedure on toenail [facility] Work Phone: Start: 12-12-2021 X-ray of both feet [facility] Work Phone: Start: 12-10-2021 X-ray of both feet [facility] Work Phone: Start: 12-08-2021 X-ray of both feet [facility] Work Phone: Start: 11-01-2021 CT of lower limb with contrast [facility] Work Phone: Start: 09-21-2021 Colonoscopy [facility] Work Phone: Start: 09-20-2021 End: 09-20-2021 Viral antigen assay [facility] Work Phone: Start: 08-26-2021 CT of chest without contrast [facility] Work Phone: Start: 08-19-2021 Screening mammography [facility] Work Phone: Start: 07-12-2021 Ultrasonography of limb [facility] Work Phone: Start: 07-10-2021 Plain chest X-ray [facility] Work Phone: Start: 07-10-2021 SARS-CoV-2 Antigen (Rapid) [facility] Work Phone: Start: 11-24-2014 Mammography Halle Lori PA-C Work Phone: Start: 10-17-2012 Colonoscopy Halle Athy PA-C Work Phone: H/O: tubal ligation History of t ubal ligation [facility] Work Phone: Viral antigen assay [facility] Work Phone: Plan of Treatment Date Care Activity Detail Author Start: 09-03-2033 Screening for malignant neoplasm of colon [facility] Start: 04-29-2029 Lipid panel Lipid Screening [facility] Start: 01-27-2028 Lipid 1996 panel - Serum or Plasma Lipid Screening [facility] Start: 01-27-2028 Lipid panel Lipid Screening [facility] Start: 01-27-2028 LIPID SCREEN LIPID SCREEN [facility] Start: 04-29-2027 Diabetes Screening Diabetes Screening [facility] Start: 02-19-2027 Diabetes Screening Diabetes Screening [facility] Start: 10-24-2026 Diabetes Screening Diabetes Screening [facility] Start: 09-16-2026 HPV TESTING HPV TESTING [facility] Start: 09-16-2026 PAP TESTING PAP TESTING [facility] Start: 09-12-2026 Diabetes Screening Diabetes Screening [facility] Start: 07-26-2026 Diabetes Screening Diabetes Screening [facility] Start: 03-03-2026 Diabetes Screening Diabetes Screening [facility] Start: 01-26-2026 DIABETES SCREEN DIABETES SCREEN [facility] Start: 01-26-2026 Diabetes Screening Diabetes Screening [facility] Start: 10-23-2025 Annual PCP Team Chronic Disease Visit Annual PCP Team Chronic Disease Visit [facility] Start: 08-07-2025 Screening for malignant neoplasm of colon Fecal Occult Blood [facility] Start: 08-06-2025 Annual PCP Team Chronic Disease Visit Annual PCP Team Chronic Disease Visit [facility] Start: 07-11-2025 Annual PCP Team Chronic Disease Visit Annual PCP Team Chronic Disease Visit [facility] Start: 07-11-2025 BP Controlled (<130/80) BP Controlled (<130/80) [facility] Start: 07-11-2025 Urine microalbumin profile DTaP,Tdap,Td Vaccine (1 - Tdap) [facility] Comment on above: Postponed from 03/04/2013 (Declined at t his time) Start: 05-20-2025 Annual PCP Team Chronic Disease Visit Annual PCP Team Chronic Disease Visit [facility] Start: 05-20-2025 BP Controlled (<130/80) BP Controlled (<130/80) [facility] Start: 04-29-2025 Annual PCP Team Chronic Disease Visit Annual PCP Team Chronic Disease Visit [facility] Start: 04-29-2025 Covid-19 Vaccine ( season) Covid-19 Vaccine ( season) [facility] Comment on above: Postponed from 01/28/2024 (Declined at t his time) Start: 04-29-2025 Creatinine measurement Serum Creatinine [facility] Start: 04-18-2025 Annual PCP Team Chronic Disease Visit Annual PCP Team Chronic Disease Visit [facility] Start: 02-19-2025 Annual PCP Team Chronic Disease Visit Annual PCP Team Chronic Disease Visit [facility] Start: 02-19-2025 BP Controlled (<130/80) BP Controlled (<130/80) [facility] in Start: 02-19-2025 Complete blood count Hemoglobin/Hematocrit [facility] Start: 02-19-2025 Creatinine measurement Serum Creatinine [facility] Start: 01-31-2025 [facility] Start: 01-27-2025 Influenza vaccination [facility] Start: 11-25-2024 Influenza vaccination [facility] Comment on above: Postponed from 01/28/2024 (Declined at t his time) Start: 11-18-2024 End: 11-18-2024 Patient encounter procedure 11/18/2024 1:00 PM EDT Office Visit [facility] [place] [address] [place], [place] [address] Shavonne Donato APRN.MESSENGER COPY [address] [place] [address] 6 month follow up [facility] [place] Comment on above: 6 month follow up Start: 11-15-2024 End: 11-15-2024 Patient encounter procedure 11/15/2024 2:15 PM EDT Office Visit [facility] [address] [facility] [place] [place] [id number] Fadumo Pimentel PA-C [address] [place], [place] [id number] RLQ abdominal pain [R10.31] [facility] Comment on above: RLQ abdominal pain [R10.31] Start: 10-24-2024 Annual PCP Team Chronic Disease Visit Annual PCP Team Chronic Disease Visit [facility] Start: 10-24-2024 Creatinine measurement Serum Creatinine [facility] Start: 10-24-2024 Spirometry Spirometry [facility] Comment on above: Postponed from 1975 (Declined at t his time) Start: 10-13-2024 [facility] Start: 10-02-2024 BP Controlled (<130/80) BP Controlled (<130/80) [facility] Start: 09-30-2024 [facility] Start: 09-30-2024 [facility] Start: 09-12-2024 Creatinine measurement Serum Creatinine [facility] Start: 09-10-2024 Annual PCP Team Chronic Disease Visit Annual PCP Team Chronic Disease Visit [facility] Start: 09-10-2024 BP Controlled (<130/80) BP Controlled (<130/80) [facility] Start: 08-22-2024 End: 08-22-2024 Patient encounter procedure 08/22/2024 12:00 PM EDT Appointment Nuclear Medicine [address] [place] [address] Dx: Nausea [R11.0] Nuclear Medicine Comment on above: Dx: Nausea [R11.0] Start: 08-12-2024 End: 08-12-2024 Patient encounter procedure 08/12/2024 1:00 PM EDT Appointment Radiology [address] [place] [address] Dx: Hepatic cyst [K76.89] Radiology Comment on above: Dx: Hepatic cyst [K76.89] Start: 07-31-2024 [facility] Start: 07-27-2024 Screening for malignant neoplasm of colon Fecal Occult Blood [facility] Start: 07-26-2024 Annual PCP Team Chronic Disease Visit Annual PCP Team Chronic Disease Visit [facility] Start: 07-26-2024 BP Controlled (<130/80) BP Controlled (<130/80) [facility] Start: 07-26-2024 Complete blood count Hemoglobin/Hematocrit [facility] Start: 07-26-2024 Creatinine measurement Serum Creatinine [facility] Start: 07-26-2024 RSV Vaccine (1 - 1-dose 60+ series) RSV Vaccine (1 - 1-dose 60+ series) [facility] Comment on above: Postponed from 2017 (Declined at t his time) Start: 07-26-2024 RSV Vaccine (1 - Risk 60-74 years 1-dose series) RSV Vaccine (1 - Risk 60-74 years 1-dose series) [facility] Comment on above: Postponed from 2017 (Declined at t his time) Start: 07-19-2024 [facility] Start: 07-19-2024 [facility] Start: 07-02-2024 End: 07-02-2024 ambulatory 07/02/2024 3:00 PM EST OT/PT/Speech Visit [facility] [address] [place] [address] Yamile Cordero, PT : Falls frequently [R29.6 (ICD-10-CM)]; Knee gives out, right [M25.361 (ICD-10-CM)]; Abnormality of gait [R26.9 (ICD-10-CM)]; Right leg weakness [R29.898 (ICD-10-CM)] [facility] Comment on above: : Falls frequently [R29.6 (ICD-10-CM)]; Knee gives out, right [M25.361 (ICD-10-CM)]; Abnormality of gait [R26.9 (ICD-10-CM)]; Right leg weakness [R29.898 (ICD-10-CM)] Start: 07-02-2024 End: 10-01-2024 Thyrotropin [Units/volume] in Serum or Plasma THYROID STIMULATING HORMONE Lab Routine Acquired hypothyroidism Expected: 07/02/2024, Expires: 10/01/2024 [facility] Work Phone: Comment on above: Expected: 07/02/2024, Expires: Start: 06-27-2024 Covid-19 Vaccine ( season) Covid-19 Vaccine ( season) [facility] Comment on above: Postponed from 01/27/2023 (Declined at t his time) Start: 06-27-2024 Shingrix Vaccine (2 of 2) Shingrix Vaccine (2 of 2) [facility] Comment on above: Postponed from 05/26/2020 (Declined at t his time) Start: 06-27-2024 Urine microalbumin profile DTaP,Tdap,Td Vaccine (1 - Tdap) [facility] Comment on above: Postponed from 03/04/2013 (Declined at t his time) Start: 2024 End: 2024 ambulatory 2024 3:00 PM EST OT/PT/Speech Visit [facility] [address] [place] [address] Yamile Cordero, PT : Falls frequently [R29.6 (ICD-10-CM)]; Knee gives out, right [M25.361 (ICD-10-CM)]; Abnormality of gait [R26.9 (ICD-10-CM)]; Right leg weakness [R29.898 (ICD-10-CM)] [facility] Comment on above: : Falls frequently [R29.6 (ICD-10-CM)]; Knee gives out, right [M25.361 (ICD-10-CM)]; Abnormality of gait [R26.9 (ICD-10-CM)]; Right leg weakness [R29.898 (ICD-10-CM)] Start: 06-18-2024 End: 06-18-2024 ambulatory 06/18/2024 3:00 PM EST OT/PT/Speech Visit [facility] [address] [facility] [place] [address] Yamile Cordero, PT : Falls frequently [R29.6 (ICD-10-CM)]; Knee gives out, right [M25.361 (ICD-10-CM)]; Abnormality of gait [R26.9 (ICD-10-CM)]; Right leg weakness [R29.898 (ICD-10-CM)] [facility] Comment on above: : Falls frequently [R29.6 (ICD-10-CM)]; Knee gives out, right [M25.361 (ICD-10-CM)]; Abnormality of gait [R26.9 (ICD-10-CM)]; Right leg weakness [R29.898 (ICD-10-CM)] Start: 06-11-2024 End: 06-11-2024 ambulatory 06/11/2024 3:00 PM EST OT/PT/Speech Visit [facility] [address] [place] [address] Yamile Cordero, PT : Falls frequently [R29.6 (ICD-10-CM)]; Knee gives out, right [M25.361 (ICD-10-CM)]; Abnormality of gait [R26.9 (ICD-10-CM)]; Right leg weakness [R29.898 (ICD-10-CM)] [facility] Comment on above: : Falls frequently [R29.6 (ICD-10-CM)]; Knee gives out, right [M25.361 (ICD-10-CM)]; Abnormality of gait [R26.9 (ICD-10-CM)]; Right leg weakness [R29.898 (ICD-10-CM)] Start: 05-29-2024 Advance Directive Discussion Advance Directive Discussion [facility] Start: 05-29-2024 Medicare Advantage Annual Wellness Visit Medicare Advantage Annual Wellness Visit [facility] Start: 05-20-2024 End: 05-20-2024 Patient encounter procedure 05/20/2024 12:20 PM EST Office Visit [facility] [place] [address] [facility] [address] Tatiana Ronquillo MD [address] [facility] [place] [address] routine follow up [facility] [place] Comment on above: routine follow up Start: 05-16-2024 End: 05-16-2024 Patient encounter procedure 05/16/2024 2:45 PM EST OT/PT/Speech Visit [facility] [address] [place] [address] Robin Gaffney, PT, DPT [address] [place] [address] Falls frequently [R29.6] [facility] Comment on above: Falls frequently [R29.6] Start: 04-29-2024 End: 07-29-2024 LIPID PANEL, NONFASTING [facility] Comment on above: Expected: 04/29/2024, Expires: Start: 04-29-2024 End: 07-29-2024 Thyrotropin [Units/volume] in Serum or Plasma [facility] Work Phone: Comment on above: Expected: 04/29/2024, Expires: Start: 04-29-2024 End: 04-29-2024 Patient encounter procedure 04/29/2024 12:20 PM EST Office Visit [facility] [address] [place], [place] [phone] Tatiana Ronquillo MD [address] [place], [place] [phone] 6 mo follow up [facility] Comment on above: 6 mo follow up Start: 04-18-2024 End: 04-18-2024 Patient encounter procedure 04/18/2024 12:00 PM EST Office Visit [facility] [address] [place], [place] [phone] Sabine Crowley APRN.MESSENGER COPY [address] [place] [address] Lump in right groin at hip line, that has gotten bigger. See phone note. [facility] Comment on above: Lump in right groin at hip line, that bernabe s gotten bigger. See phone note. Start: 03-21-2024 Annual PCP Team Chronic Disease Visit Annual PCP Team Chronic Disease Visit [facility] Start: 03-21-2024 BP Controlled (<130/80) BP Controlled (<130/80) [facility] Start: 03-14-2024 Influenza vaccination Lung Cancer Screening [facility] Start: 03-14-2024 Screening for malignant neoplasm of lung Lung Cancer Screening [facility] Start: 03-07-2024 End: 06-06-2024 Comprehensive metabolic 2000 panel - Serum or Plasma COMPREHENSIVE METABOLIC PANEL Lab Routine Elevated LFTs Expected: 03/07/2024, Expires: 06/06/2024 [facility] Work Phone: Comment on above: Expected: 03/07/2024, Expires: 5 Start: 02-24-2024 Mammography Mammogram Screening [facility] Start: 02-24-2024 Screening for malignant neoplasm of breast Mammogram Screening [facility] Start: 02-20-2024 End: 05-21-2024 C reactive protein [Mass/volume] in Serum or Plasma [facility] Comment on above: Expected: 02/20/2024, Expires: 4 Start: 02-20-2024 End: 05-21-2024 CBC W Auto Differential panel - Blood [facility] Work Phone: Comment on above: Expected: 02/20/2024, Expires: 4 Start: 02-20-2024 End: 05-21-2024 Comprehensive metabolic 2000 panel - Serum or Plasma [facility] Comment on above: Expected: 02/20/2024, Expires: Start: 02-20-2024 End: 05-21-2024 Erythrocyte sedimentation rate [facility] Comment on above: Expected: 02/20/2024, Expires: 4 Start: 02-20-2024 End: 02-20-2024 Patient encounter procedure 02/20/2024 10:20 AM EDT Office Visit [facility] [address] [place] [phone] Tatiana Ronquillo MD [address] [place] [phone] [facility] follow up with colitis, taking antibiotics [facility] Comment on above: [facility] follow up with colitis, taking an tibiotics Start: 01-28-2024 Covid-19 Vaccine () Covid-19 Vaccine () [facility] Start: 01-28-2024 Covid-19 Vaccine () Covid-19 Vaccine () [facility] Start: 01-28-2024 Influenza vaccination [facility] Start: 08-31-2024 ANNUAL PCP TEAM CHRONIC DISEASE VISIT ANNUAL PCP TEAM CHRONIC DISEASE VISIT [facility] Start: 01-27-2024 COVID-19 VACCINE (3 - Moderna series) COVID-19 VACCINE (3 - Moderna series) [facility] Comment on above: Postponed from 12/24/2020 (Declined at t his time) Start: 12-28-2023 End: 12-28-2023 Patient encounter procedure 12/28/2023 11:15 AM EDT Office Visit [facility] [address] [place] [address] PreMeaghan arredondo, IN [employer] SALES CONSULTANT.MESSENGER COPY [address] [place] [address] 6 month follow up [facility] Comment on above: 6 month follow up Start: 11-26-2023 Influenza vaccination [facility] Comment on above: Postponed from 01/27/2023 (Declined at t his time) Start: 11-17-2023 End: 11-17-2023 Patient encounter procedure 11/17/2023 1:15 PM EDT Office Visit [facility] [address] [place] [address] PreMeaghan arredondo, IN HOME SALES CONSULTANT.MESSENGER COPY [address] [place] [address] 6 month follow up [facility] Comment on above: 6 month follow up Start: 10-25-2023 End: 01-24-2024 Hemoglobin A1c in Blood [facility] Work Phone: Comment on above: Expected: 10/25/2023, Expires: Start: 10-25-2023 End: 10-25-2023 Patient encounter procedure 10/25/2023 2:00 PM EDT Office Visit [facility] [address] [place] [address] Tatiana Ronquillo MD [address] [place] [address] 3 month f/u [facility] [place] Comment on above: 3 month f/u Start: 10-10-2023 End: 10-10-2023 Patient encounter procedure 10/10/2023 10:00 AM EDT OT/PT/Speech Visit [facility] [address] [place] [address] Kashmir Judge, PT [address] [place] [address] H81.11 (ICD-10-CM) - Benign paroxysmal positional vertigo of right ear Procedures: 9032 - CONSULT TO PHYSICAL THERAPY [facility] Comment on above: H81.11 (ICD-10-CM) - Benign paroxysmal p ositional vertigo of right ear Procedures: 9032 - CONSULT TO PHYSICAL THERAPY Start: 09-29-2023 [facility] Start: 09-02-2023 End: 12-02-2023 Comprehensive metabolic 2000 panel - Serum or Plasma COMP METABOLIC PANEL Lab Routine ELENA (acute kidney injury) (HCC) Expected: 09/02/2023, Expires: 12/02/2023 [facility] Work Phone: Comment on above: Expected: 09/02/2023, Expires: 4 Start: 08-14-2023 [facility] Start: 08-02-2023 End: 10-02-2023 Hemoglobin A1c in Blood HGB A1C Lab Routine Impaired fasting glucose Expected: 08/02/2023, Expires: 10/02/2023 [facility] Work Phone: Comment on above: Expected: 08/02/2023, Expires: 4 Start: 07-29-2023 Screening for malignant neoplasm of colon Colorectal Cancer Screening [facility] Start: 05-29-2023 Advance Directive Discussion Advance Directive Discussion [facility] Start: 05-08-2023 Pneumococcal Vaccine: 65+ (3 - PPSV23 or PCV20) Pneumococcal Vaccine: 65+ (3 - PPSV23 or PCV20) [facility] Start: 05-08-2023 Pneumococcal Vaccine: 65+ (3 of 3 - PPSV23 or PCV20) Pneumococcal Vaccine: 65+ (3 of 3 - PPSV23 or PCV20) [facility] Start: 05-08-2023 PNEUMOCOCCAL: 65+ (3 - PPSV23 or PCV20) PNEUMOCOCCAL: 65+ (3 - PPSV23 or PCV20) [facility] Start: 03-13-2023 [facility] Start: 03-03-2023 End: 05-03-2023 Comprehensive metabolic 2000 panel - Serum or Plasma COMP METABOLIC PANEL Lab Routine ELENA (acute kidney injury) (HCC) Expected: 03/03/2023, Expires: 05/03/2023 [facility] Work Phone: Comment on above: Expected: 03/03/2023, Expires: Start: 01-27-2023 Covid-19 Vaccine ( season) Covid-19 Vaccine () [facility] Start: 01-27-2023 Influenza vaccination [facility] Start: 10-17-2022 Colonoscopy COLONOSCOPY [facility] Start: 10-17-2022 COLORECTAL CANCER SCREENING COLORECTAL CANCER SCREENING [facility] Start: 10-17-2022 Screening for malignant neoplasm of colon [facility] Start: 09-03-2022 [facility] Start: 07-26-2022 Patient referral [facility] Work Phone: Start: 07-25-2022 Patient referral [facility] Work Phone: Start: 2022 ADVANCE DIRECTIVE DISCUSSION ADVANCE DIRECTIVE DISCUSSION [facility] Start: 2022 BONE DENSITY BONE DENSITY [facility] Start: 2022 PNEUMOCOCCAL: 65+ (2 - PPSV23 if available, else PCV20) PNEUMOCOCCAL: 65+ (2 - PPSV23 if available, else PCV20) [facility] Start: 2022 PNEUMOCOCCAL: 65+ (2 - PPSV23 or PCV20) PNEUMOCOCCAL: 65+ (2 - PPSV23 or PCV20) [facility] Start: 06-08-2022 Patient discharge [facility] Start: 06-08-2022 Telepractice consultation [facility] Start: 06-08-2022 [facility] Start: 06-07-2022 Aspiration precautions [facility] Start: 06-07-2022 Assessment of risk of venous thromboembolism [facility] Start: 06-07-2022 Cardiac monitoring [facility] Start: 06-07-2022 Catheterization of vein [facility] Start: 06-07-2022 Continuous pulse oximetry [facility] Start: 06-07-2022 Elevation of head of bed [facility] Start: 06-07-2022 Exercises [facility] Start: 06-07-2022 Fall prevention [facility] Start: 06-07-2022 Implementation of planned interventions [facility] Start: 06-07-2022 Incentive spirometry [facility] Start: 06-07-2022 Insertion of catheter into peripheral vein [facility] Start: 06-07-2022 Introduction of urinary catheter [facility] Start: 06-07-2022 Measuring intake and output [facility] Start: 06-07-2022 Notification of physician [facility] Start: 06-07-2022 Oxygen therapy [facility] Start: 06-07-2022 Patient referral to dietitian [facility] Start: 06-07-2022 Providing care according to standard [facility] Start: 06-07-2022 Provision of activity privileges [facility] Start: 06-07-2022 Referral to occupational therapist [facility] Start: 06-07-2022 Referral to service [facility] Start: 06-07-2022 Speech therapy assessment [facility] Start: 06-07-2022 Tobacco use cessation education [facility] Start: 06-07-2022 [facility] Start: 06-07-2022 Following clinical pathway protocol [facility] Start: 06-07-2022 Admission procedure [facility] Start: 02-15-2022 DIABETES SCREEN DIABETES SCREEN [facility] Start: 01-27-2022 Influenza vaccination [facility] Start: 01-11-2022 [facility] Work Phone: Start: 12-13-2021 Patient discharge [facility] Work Phone: Start: 12-12-2021 Application of intermittent pneumatic compression device [facility] Work Phone: Start: 12-12-2021 Following clinical pathway protocol [facility] Work Phone: Start: 12-12-2021 Assessment of risk of venous thromboembolism [facility] Work Phone: Start: 12-12-2021 Continuous pulse oximetry [facility] Work Phone: Start: 12-12-2021 Elevation of affected extremity [facility] Work Phone: Start: 12-12-2021 Elevation of head of bed [facility] Work Phone: Start: 12-12-2021 Fall prevention [facility] Work Phone: Start: 12-12-2021 Incentive spirometry [facility] Work Phone: Start: 12-12-2021 Inhalation therapy procedure [facility] Work Phone: Start: 12-12-2021 Insertion of catheter into peripheral vein [facility] Work Phone: Start: 12-12-2021 Introduction of urinary catheter [facility] Work Phone: Start: 12-12-2021 Measuring intake and output [facility] Work Phone: Start: 12-12-2021 Oxygen therapy [facility] Work Phone: Start: 12-12-2021 Providing care according to standard [facility] Work Phone: Start: 12-12-2021 Provision of activity privileges [facility] Work Phone: Start: 12-12-2021 Referral to delivery department supervisor [facility] Work Phone: Start: 12-12-2021 Referral to service [facility] Work Phone: Start: 12-12-2021 Vital signs measurements [facility] Work Phone: Start: 12-12-2021 Wound care [facility] Work Phone: Start: 12-12-2021 [facility] Work Phone: Start: 12-12-2021 X-ray of both feet Foot min 3 Views [facility] Work Phone: Start: 12-12-2021 Admission procedure [facility] Work Phone: Start: 12-12-2021 Verification routine [facility] Work Phone: Start: 12-12-2021 [facility] Work Phone: Start: 12-12-2021 Patient referral to dietitian [facility] Work Phone: Start: 09-21-2021 Colonoscopy flx dx w/collj spec when pfrmd DIAGNOSTIC COLONOSCOPY [facility] Work Phone: Start: 03-31-2021 COVID-19 VACCINE (3 - Booster for Moderna series) COVID-19 VACCINE (3 - Booster for Moderna series) [facility] Start: 12-24-2020 COVID-19 VACCINE (3 - Booster for Moderna series) COVID-19 VACCINE (3 - Booster for Moderna series) [facility] Start: 12-24-2020 COVID-19 VACCINE (3 - Moderna series) COVID-19 VACCINE (3 - Moderna series) [facility] Start: 05-26-2020 SHINGRIX VACCINE (2 of 2) SHINGRIX VACCINE (2 of 2) [facility] Start: 03-03-2020 LIPID SCREEN LIPID SCREEN [facility] Start: 2017 RSV Vaccine (1 - 1-dose 60+ series) RSV Vaccine (1 - 1-dose 60+ series) [facility] Start: 2017 RSV Vaccine (1 - Risk 60-74 years 1-dose series) RSV Vaccine (1 - Risk 60-74 years 1-dose series) [facility] Start: 11-25-2015 Mammography [facility] Start: 08-30-2013 FECAL OCCULT BLOOD FECAL OCCULT BLOOD [facility] Start: 08-30-2013 Screening for malignant neoplasm of colon Fecal Occult Blood [facility] Start: 03-04-2013 Urine microalbumin profile [facility] Start: 2007 Influenza vaccination LUNG CANCER SCREENING [facility] Start: 2007 SHINGRIX VACCINE (1 of 2) SHINGRIX VACCINE (1 of 2) [facility] Start: 2002 COLOGUARD (FIT-DNA) COLOGUARD (FIT-DNA) [facility] Start: [address] COLONOGRAPHY [facility] Start: 2002 Screening for malignant neoplasm of colon [facility] Start: 2002 SIGMOIDOSCOPY SIGMOIDOSCOPY [facility] Start: 1987 Zoledronic acid therapy ALPHA-1 ANTITRYPSIN DEFICIENCY SCREENING [facility] Start: 1975 BP CONTROLLED (<130/80) BP CONTROLLED (<130/80) [facility] Start: 1975 HEPATITIS C SCREENING HEPATITIS C SCREENING [facility] Start: 1975 Hepatitis C screening Hepatitis C Screening [facility] Start: 1975 HIV SCREENING HIV SCREENING [facility] Start: 1975 HIV screening HIV Screening [facility] Start: 1975 SPIROMETRY SPIROMETRY [facility] Anaerobic Culture Anaerobic Culture [facility] Work Phone: Bacteria identified in Unspecified specimen by Anaerobe culture [facility] Work Phone: Bacteria identified in Urine by Culture URINE CULTURE Microbiology Routine Acute right-sided low back pain with right-sided sciatica 11/07/2022 4:28 PM EDT [facility] Work Phone: Bacteria identified in Wound by Culture [facility] Work Phone: Cardiac event recording [facility] Work Phone: Catheterization of l eft heart [facility] COVID & INFLUENZA A/ B & RSV PCR, ROUTINE COVID & INFLUENZA A/B & RSV PCR, ROUTINE Microbiology Routine Nasal congestion Rhinorrhea 02/20/2024 11:19 AM EDT [facility] COVID & INFLUENZA A/ B & RSV PCR, ROUTINE COVID & INFLUENZA A/B & RSV PCR, ROUTINE Microbiology Routine URI, acute Ordered: 07/11/2024 [facility] Work Phone: Comment on above: Ordered: 07/11/2024 CT Chest [facility] Work Phone: CT Chest [facility] CT Chest [facility] End: 03-08-2024 Ct thorax w/o contrast material CT CHEST WO IVCON Radiology Routine Lung nodules 1 Occurrences starting 02/07/2023 until 03/08/2024 [facility] Work Phone: Comment on above: 1 Occurrences starting 02/07/2023 until 03/08/2024 End: 05-03-2025 DBT Breast - bilateral screening LUIS SCREENING W CALI Radiology Routine Encounter for screening mammogram for breast cancer 1 Occurrences starting 04/03/2024 until 05/03/2025 [facility] Work Phone: Comment on above: 1 Occurrences starting 04/03/2024 until 05/03/2025 End: 08-17-2024 EGD DIAGNOSTIC EGD DIAGNOSTIC Endoscopy Routine Screening for colon cancer History of colonic polyps Epigastric pain Blood in stool 1 Occurrences starting 08/18/2023 until 08/17/2024 [facility] Work Phone: Comment on above: 1 Occurrences starting 08/18/2023 until 08/17/2024 End: 08-17-2024 Flexible sigmoidoscopy study COLONOSCOPY DIAGNOSTIC Endoscopy Routine Screening for colon cancer History of colonic polyps Epigastric pain Blood in stool 1 Occurrences starting 08/18/2023 until 08/17/2024 [facility] Work Phone: Comment on above: 1 Occurrences starting 08/18/2023 until 08/17/2024 Hemoglobin.gastroint est inal.lower [Presence] in Stool by Immunoassay IMMUNOCHEMICAL FECAL OCCULT BLOOD TEST Lab Routine Dark stools Ordered: 08/06/2024 [facility] Work Phone: Comment on above: Ordered: 08/06/2024 Injection aa&/strd other peripheral nerve/branch INJECT ANESTH AGENT Procedures Routine Left leg pain Ordered: 12/30/2021 [facility] Work Phone: Comment on above: Ordered: 12/30/2021 End: 03-26-2024 LUIS DIAGNOSTIC LEFT LUIS DIAGNOSTIC LEFT Radiology Routine Abnormal mammogram 1 Occurrences starting 02/25/2023 until 03/26/2024 [facility] Work Phone: Comment on above: 1 Occurrences starting 02/25/2023 until 03/26/2024 Microscopic observat ion [Identifier] in Unspecified specimen by Gram stain Gram Stain [facility] Work Phone: End: 09-05-2025 MR Liver WO and W contrast IV MRI LIVER WO/W IVCON Radiology Routine Hepatic cyst 1 Occurrences starting 08/06/2024 until 09/05/2025 [facility] Comment on above: 1 Occurrences starting 08/06/2024 until 09/05/2025 MR Liver WO and W contrast IV MRI LIVER WO/W IVCON Radiology Routine Hepatic cyst 08/12/2024 2:17 PM EDT [facility] Work Phone: End: 09-05-2025 NM Biliary ducts and Gallbladder Views for patency of biliary structures and ejection fraction W sincalide and W radionuclide IV NM HEPATOBILIARY W EF AND/OR RX Radiology Routine Nausea RUQ pain 1 Occurrences starting 08/06/2024 until 09/05/2025 [facility] Comment on above: 1 Occurrences starting 08/06/2024 until 09/05/2025 Patient Education [facility] Work Phone: Patient referral [facility] Work Phone: SURGICAL PATHOLOGY [facility] Work Phone: Comment on above: Release Upon Ordering for 1 Occurrences starting 09/04/2023, 1 completed End: 05-19-2025 US Abdomen US SOFT TISSUE ABDOMEN Radiology Routine RLQ abdominal mass 1 Occurrences starting 04/19/2024 until 05/19/2025 [facility] Work Phone: Comment on above: 1 Occurrences starting 04/19/2024 until 05/19/2025 US Abdomen US SOFT TISSUE A BDOMEN Radiology Routine RLQ abdominal mass 04/19/2024 2:37 PM EST [facility] End: 03-26-2024 US BREAST LTD LEFT US BREAST LTD LEFT Radiology Routine Abnormal mammogram 1 Occurrences starting 02/25/2023 until 03/26/2024 [facility] Work Phone: Comment on above: 1 Occurrences starting 02/25/2023 until 03/26/2024 End: 01-29-2024 US EXTREMITY MASS/FLUID COLLECTION LEFT US EXTREMITY MASS/FLUID COLLECTION LEFT Radiology Routine Left thigh pain 1 Occurrences starting 12/30/2022 until 01/29/2024 [facility] Work Phone: Comment on above: 1 Occurrences starting 12/30/2022 until 01/29/2024 US EXTREMITY MASS/FL UID COLLECTION LEFT US EXTREMITY MASS/FLUID COLLECTION LEFT Radiology Routine Left thigh pain 01/06/2023 1:58 PM EDT [facility] Work Phone: US Kidney - bilatera l and Urinary bladder US KIDNEY/BLADDER Radiology Routine Stage 3a chronic kidney disease (HCC) 07/31/2023 2:30 PM EST [facility] Work Phone: Wound Culture Wound Culture [facility] Work Phone: End: 05-29-2025 XR Knee - right 4 Views XR KNEE GENERAL 4V AP BOTH/PA BOTH/LAT/MERC RIGHT Radiology Routine Falls frequently Knee gives out, right 1 Occurrences starting 04/29/2024 until 05/29/2025 [facility] Comment on above: 1 Occurrences starting 04/29/2024 until 05/29/2025 XR Knee - right 4 Views XR KNEE GENERAL 4V AP BOTH/PA BOTH/LAT/MERC RIGHT Radiology Routine Falls frequently Knee gives out, right 04/29/2024 1:21 PM EST [facility] Immunizations Immunization Date Immunization Notes Care Provider Jennifer gill 06-27-2023 pneumococcal conjuga te (PCV20) vaccine, 20 valent (PREVNAR 20) Us 2 Work Phone: [facility] 03-31-2020 zoster vaccine recombinant Tatiana Ronquillo MD Work Phone: [facility] Work Phone: 02-14-2020 influenza, injectabl e, quadrivalent, preservative free Tatiana Ronquillo MD Work Phone: [facility] Work Phone: 02-14-2020 influenza virus vaccine, unspecified formulation Barrett Falk [employer] SALES CONSULTANT.MESSENGER COPY Work Phone: [facility] 02-16-2019 influenza, injectabl e, quadrivalent, preservative free Halle Sandoval PA-C Work Phone: [facility] 05-08-2018 pneumococcal polysaccharide vaccine, 23 valviki Ronquillo MD Work Phone: [facility] Work Phone: 03-12-2018 Influenza virus vaccine [facility] Work Phone: [facility] [facility] 03-12-2018 influenza, seasonal, injectable, preservative free Tatiana Ronquillo MD Work Phone: [facility] Work Phone: 01-30-2017 Influenza virus vaccine [facility] Work Phone: [facility] 01-30-2017 influenza, seasonal, injectable, preservative free Tatiana Ronquillo MD Work Phone: [facility] Work Phone: 03-03-2015 influenza, injectabl e, quadrivalent, contains preservative Halel Sandoval PA-C Work Phone: [facility] 10-08-2014 pneumococcal conjuga te vaccine, 13 valent Halle Sandoval PA-C Work Phone: [facility] 03-27-2014 influenza, seasonal, injectable Halle Sandoval PA-C Work Phone: [facility] 07-27-2013 pneumococcal polysaccharide vaccine, 23 valent Tatiana Ronquillo MD Work Phone: [facility] Work Phone: 07-27-2013 Pneumococcal Vaccine [facility] Work Phone: [facility] Work Phone: 07-27-2013 pneumococcal vaccine , unspecified formulation [facility] Work Phone: [facility] 03-03-2013 tetanus and diphther ia toxoids, adsorbed, preservative free, for adult use (2 Lf of tetanus toxoid and 2 Lf of diphtheria toxoid) [facility] Work Phone: [facility] 03-03-2013 tetanus and diphther ia toxoids, not adsorbed, for adult use Halle SUÁREZImmunetricsKira Work Phone: [facility] Work Phone: 03-02-2013 influenza virus vaccine, unspecified formulation Halle SUÁREZ-Kira Work Phone: [facility] 02-24-2012 influenza virus vaccine, unspecified formulation Halle SUÁREZ-C Work Phone: [facility] Work Phone: Payers Date Payer Category Payer Self-pay [id number] 2023 Unknown [id number] 2021 Medicaid [facility] MEDICAID [id number] 2021-Present [phone] [address] [place] [address] Medicaid [id number] 2021 Medicaid [id number] 2021 Medicare UHC MEDICARE [facility] DUAL COMPLETE HMO SNP [id number] 2021-Present [phone] [address] [place] [address] Medicare [id number] 2021 Medicare [id number] 2021 Medicare (Managed Care) 1.2. [id number] 2021 Unknown [id number] 2015 Unknown [id number] 2014 Medicare [id number] Private Health Insurance [facility] [id number] Unknown [id number] Unknown [id number] 462 Unknown [id number] 462 Unknown [id number] 462 Unknown [id number] 462 Unknown [id number] 462 Unknown [id number] 462 Unknown [id number] 462 Unknown [id number] 462 Social History Date Type Detail Facility Start: 08-17-2021 End: 09-29-2023 Tobacco smoking status NHIS Unknown if ever smoked [facility] Start: 07-15-2020 None [facility] Start: 07-15-2020 Alone [facility] Start: 10-16-2020 Non-smoker [facility] Start: 1955 Sex Assigned At Female W [facility] Start: 09-28-2021 End: 01-31-2025 Tobacco smoking status NHIS Ex-smoker [facility] Start: 07-27-1978 End: 07-27-2020 History of tobacco use Current smoker [facility] Start: 07-27-1978 End: 07-27-2020 History of tobacco use Cigarette Smoker [facility] Start: 09-28-2021 End: 11-14-2022 Cigarettes smoked current (pack per day) - Reported 1 [facility] Start: 09-28-2021 End: 01-22-2024 Tobacco use and exposure Smokeless tobacco non-user [facility] Start: 09-28-2021 End: 01-22-2024 Alcohol intake Current non-drinker of alcohol (finding) [facility] Start: 09-28-2021 End: 02-03-2022 Tobacco Comment d/c 07/27/2020 [facility] Start: 1955 Sex Assigned At Not on file [facility] Start: 09-18-2021 End: 04-14-2022 Exposure to SARS-CoV-2 (event) Not sure [facility] Start: 11-07-2022 End: 11-14-2022 Tobacco use panel [facility] Start: 04-29-2012 Adult Depression Screening Assessment 1 [facility] Has the [employer], [employer], or [employer] threatened to shut off services in your home in past 12Mo No [facility] Are you now , , , , never or living with a partner? [facility] How often to you hav e a drink containing alcohol? Never [facility] Do you feel stress - tense, restless, nervous, or anxious, or unable to sleep at night because your mind is troubled all the time - these days [OSQ] To some extent [facility] (I/We) worried carola er (my/our) food would run out before (I/we) got money to buy more. Never true [facility] Start: 09-29-2023 Gender identity Identifies as female gender (finding) [facility] Goals Date Patient Goal Desired Activity /State Functional Status Date Assessment Result Facility 06-08-2022 Functional status Bedrest [facility] Work Phone: 12-13-2021 Functional status Ambulates [facility] Work Phone: 02-16-2019 Are you deaf, or do you have serious difficulty hearing No 02/16/2019 12:48 PM EDSam Waterman, RN No [facility] 02-16-2019 Are you blind, or do you have serious difficulty seeing, even when wearing glasses No 02/16/2019 12:48 PM Sam Mercado, RN No [facility] 02-16-2019 Do you have serious difficulty walking or climbing stairs No 02/16/2019 12:48 PM Sam Mercado, RN No [facility] 02-16-2019 Do you have difficul ty dressing or bathing No 02/16/2019 12:48 PM Sam Mercado, RN No [facility] 02-16-2019 Because of a physica l, mental, or emotional condition, do you have difficulty doing errands alone such as visiting a physician's office or shopping No 02/16/2019 12:48 PM Sam Mercado, RN No [facility] Mental Status Date Assessment Result Facility 07-19-2024 Cognitive function Level Of Cons ciousness Awake;Alert;Appropriate;Fol lows Commands [facility] Work Phone: 08-14-2023 Cognitive function Level Of Cons ciousness Awake;Alert;Appropriate;Fol lows Commands [facility] Work Phone: 12-01-2022 Cognitive function Level Of Cons ciousness Awake;Alert;Appropriate;Fol lows Commands [facility] Work Phone: 11-02-2022 Cognitive function Voice/Name [facility] Work Phone: 09-03-2022 Cognitive function Level Of Cons ciousness Awake;Alert;Appropriate;Fol lows Commands [facility] Work Phone: 06-08-2022 Cognitive function Voice/Name [facility] Work Phone: 04-07-2022 Cognitive function Level Of Cons ciousness Awake;Alert;Appropriate;Fol lows Commands [facility] Work Phone: 12-13-2021 Cognitive function Voice/Name [facility] Work Phone: 09-21-2021 Cognitive function Touch/Shaking [facility] Work Phone: 09-21-2021 Cognitive function Patient Kyle delgado Person;Place;Time [facility] Work Phone: 07-10-2021 Cognitive function Level Of Cons ciousness Awake;Alert;Appropriate;Fol lows Commands [facility] Work Phone: 02-16-2019 Because of a physica l, mental, or emotional condition, do you have serious difficulty concentrating, remembering, or making decisions No 02/16/2019 12:48 PM EDT Sam Traore RN No [facility] Clinical Notes 02-16-2019 to 03-26-2025 Note Date & Type Note Facility 03-26-2025 Note HNO ID: [id number] Author: SHAVONNE DONATO APRN.MESSENGER COPY Service: ? Author Type: Nurse Practitioner Type: Progress Notes Filed: 03/26/2025 13:22 Note Text: 03/26/2025 Patient presents with: Follow Up Recording using ambient [employer] software for draft documentation of the visit was discussed with the patient/authorized outside medical sales representative; all questions welcomed and answered. Patient/authorized outside medical sales representative agreed to proceed SUBJECTIVE: This is a 69 year old that is here today for Above Complaints. Temitope Haddad is a 69-year-old female with a history of depression, HTN, COPD, hypothyroidism, and osteoporosis, presenting for follow-up. Depression: - Recent bereavement due to cousin's passing; reports feeling "fine" now. - Taking citalopram daily; feels current dose is effective. Hypertension: - Not monitoring blood pressure at home. - Taking losartan daily. Hiatal Hernia: - Taking pantoprazole daily for heartburn with good effect. COPD: - Last seen by Dr. Mendez on 06/09; follow-up scheduled for 07/08 to discuss lung nodule in the upper right lung. - Using Trelegy inhaler, 1 puff daily. - Albuterol inhaler used PRN, primarily during physical exertion such as walking uphill. Hypothyroidism: - Taking levothyroxine daily. Osteoporosis: - Taking Fosamax once weekly. Lifestyle: - Has grandchildren. - History of living in [place] and [place]; expresses a desire to return to [place]. - History of a difficult marriage; after 25 years. PAST MEDICAL HISTORY Diagnosis Date Abdominal pain, right lower quadrant Benign neoplasm of colon Chronic kidney disease (CKD), stage III (moderate) ([facility]) COPD (chronic obstructive pulmonary disease) ([facility]) Dr. Wallace Depression Dysuria Generalized anxiety disorder [...] Left leg, managed by plastic surgery Stroke ([facility]) x 4 Suprapubic pain Vitamin D deficiency ALLERGIES Fish, Morphine, Vicodin [Hydrocodone-Acetaminophen], Aggrenox [Aspirin-Dipyridamole], and Hydrocodone Bitartrate MEDICATIONS Current Outpatient Medications Medication Sig citalopram hydrobromide (CELEXA) 10 mg tablet Take 1 tablet by mouth once daily. levothyroxine (SYNTHROID) 75 mcg tablet Take 1 tablet by mouth once daily. montelukast (SINGULAIR) 10 mg tablet Take 1 tablet by mouth daily at bedtime. atorvastatin (LIPITOR) 40 mg tablet Take 1 tablet by mouth daily at bedtime. For cholesterol. pantoprazole DR (PROTONIX) 40 mg tablet Take 1 tablet by mouth once daily. 30 minutes before eating. clopidogrel (PLAVIX) 75 mg tablet Take 1 tablet by mouth once daily. cholecalciferol (VITAMIN D3) 5,000 unit tab Take 1 tablet by mouth once daily. TRELEGY ELLIPTA 200-62.5-25 mcg inhalation powder Inhale 1 Puff as instructed once daily. albuterol HFA (PROVENTIL HFA, VENTOLIN HFA) 90 mcg/actuation inhaler inhale 2 puffs by mouth every 6 hours as needed for shortness of breath levocetirizine 5 mg tablet Take 5 mg by mouth once daily. losartan (COZAAR) 25 mg tablet Take 1 tablet by mouth once daily. alendronate (FOSAMAX) 70 mg tablet Take 1 tablet by mouth one time a week. Take with a full glass of water, on an empty stomach; do NOT lie down for 30minutes. (Patient not taking: Reported on 02/26/2025) ondansetron orally disintegrating (ZOFRAN ODT) 4 mg disintegrating tablet 1 TABLET ORALLY EVERY 8 HOURS NEEDED NEEDED FOR NAUSEA MOTION SICKNESS RELIEF,MECLIZ, 25 mg chewable tablet(s) Take 1 tablet by mouth three times a day as needed for dizziness. No current facility-administered medications for this visit. Medications and allergies reviewed by this provider. SOCIAL HISTORY SOCIAL HISTORY[1] REVIEW OF SYSTEMS All other reviewed and negative other than HPI. OBJECTIVE: BP 122/82 Pulse 65 Wt 79.4 kg (175 lb) SpO2 95% BMI 28.25 kg/m? . Vital signs reviewed by this provider. APPEARANCE Well appearing, alert, in no acute distress, well-hydrated, well nourished. EYES conjunctiva and sclera normal. HEART RRR with normal S1 and S2, no murmurs, no gallops, no JVD appreciated LUNG clear to auscultation. No wheezes, rhonchi or rales EXTREMITIES Extremities normal, No deformities, No skin discoloration, and No edema SKIN Skin color, texture, turgor normal, no suspicious rashes or lesions to exposed skin RSV Vaccine(1 - Risk 60-74 years 1-dose series) Never done Shingrix Vaccine(2 of 2) due on 05/26/2020 Lung Cancer Screening due (more content not included)... [facility] 03-11-2025 Note HNO ID: [id number] Author: SETH DENNY [employer] Tech Service: ? Author Type: Technologist Type: Progress Notes Filed: 03/11/2025 13:19 Note Text: Radiology Service Progress Note PATIENT NAME: Temitope Haddad DATE OF SERVICE: March 11, 2025 TIME: 1:18 PM PATIENT IDENTITY VERIFICATION COMPLETED USING TWO (2) IDENTIFIERS: Name and Date of confirmed by patient verbally. FALL SCREENING: Has the patient had 2 falls in the last year or 1 fall with injury or currently using an Ambulatory Assistive Device (Walker, Cane, Wheelchair, Crutches, etc.)? No PATIENT GENDER DATA: Assigned female at . status: : No status: NO. PATIENT RELEVANT IMPLANT DATA REVIEWED: Not Applicable PATIENT PRESENTS WITH AN IMPLANTABLE OR ATTACHED COMPUTER OPERATIONS SUPERVISOR: No RADIOLOGY DEPARTMENT: Mammography PERIPHERAL IV DATA: Not applicable SIGNED BY: Seth Denny Big Six March 11, 2025 1:18 PM [facility] 03-04-2025 Note Patient Outreach (FA MPWS) TEMITOPE HADDAD ([id number]) 1955 F CHT Date Time Provider Department 03/04/25 TATIANA RONQUILLO During your visit today, we recorded the following information about you: Allergies As of Date: 03/04/2025 Noted Allergy Reaction FISH 07/10/2012 7 - Swelling 12 - Shortness of Breath MORPHINE 10/11/2011 1 - Mental Status Change 14 - Other: See Comments VICODIN (HYDROCODONE-ACETAMINOPHE*10/10 11 - Vomiting AGGRENOX (ASPIRIN-DIPYRIDAMOLE) 01/31/2023 14 - Other: See Comments Comments: Headache HYDROCODONE BITARTRATE 04/24/2019 14 - Other: See Comments Date Reviewed: 02/26/2025 Reviewed by: Savita Vidales MA - Fully Assessed Visit Diagnosis:Encounter for screening mammogram for breast cancer [Z12.31] Order(s):LUIS LEIVA [[id number]] Order #: [id number] FUTURE Prescriptions as of 04/04/2025 - losartan (COZAAR) 25 mg tablet Take 1 tablet by mouth once daily. - alendronate (FOSAMAX) 70 mg tablet Take 1 tablet by mouth one time a week. Take with a full glass of water, on an empty stomach; do NOT lie down for 30minutes. - citalopram hydrobromide (CELEXA) 10 mg tablet Take 1 tablet by mouth once daily. - levothyroxine (SYNTHROID) 75 mcg tablet Take 1 tablet by mouth once daily. - montelukast (SINGULAIR) 10 mg tablet Take 1 tablet by mouth daily at bedtime. - atorvastatin (LIPITOR) 40 mg tablet Take 1 tablet by mouth daily at bedtime. For cholesterol. - pantoprazole DR (PROTONIX) 40 mg tablet Take 1 tablet by mouth once daily. 30 minutes before eating. - clopidogrel (PLAVIX) 75 mg tablet Take 1 tablet by mouth once daily. - ondansetron orally disintegrating (ZOFRAN ODT) 4 mg disintegrating tablet 1 TABLET ORALLY EVERY 8 HOURS NEEDED NEEDED FOR NAUSEA - cholecalciferol (VITAMIN D3) 5,000 unit tab Take 1 tablet by mouth once daily. - TRELEGY ELLIPTA 200-62.5-25 mcg inhalation powder Inhale 1 Puff as instructed once daily. - MOTION SICKNESS RELIEF,MECLIZ, 25 mg chewable tablet(s) Take 1 tablet by mouth three times a day as needed for dizziness. - albuterol HFA (PROVENTIL HFA, VENTOLIN HFA) 90 mcg/actuation inhaler inhale 2 puffs by mouth every 6 hours as needed for shortness of breath - levocetirizine 5 mg tablet Take 5 mg by mouth once daily. Meds Comments as of 11/07/2022: Problem List As Of Date 03/04/2025 Noted Resolved Suprapubic pain [R10.24] 10/11/2011 06/10/2013 Dysuria [R30.0] 10/11/2011 Screening for [...] 10/25/2023 Moderate recurrent major depression (HCC) [F33.*10/25/2023 Falls frequently [R29.6] 05/16/2024 Knee gives out, right [M25.361] 05/16/2024 Abnormality of gait [R26.9] 05/16/2024 Muscle stiffness [M62.89] 05/16/2024 Chronic pain of right knee [M25.561, G89.29] 05/16/2024 Right leg weakness [R29.898] 05/16/2024 Encounter Status:Closed by EPIC, PRODUSER on 04/04/25 [facility] 02-26-2025 Note HNO ID: [id number] Author: ARABELLA BARCLAY Tech Service: ? Author Type: Supervisor [employer] Type: Progress Notes Filed: 02/26/2025 13:20 Note Text: Radiology Service Progress Note PATIENT NAME: Temitope Haddad DATE OF SERVICE: February 26, 2025 TIME: 1:20 PM PATIENT IDENTITY VERIFICATION COMPLETED USING TWO (2) IDENTIFIERS: Name and Date of confirmed by patient verbally. FALL SCREENING: Has the patient had 2 falls in the last year or 1 fall with injury or currently using an Ambulatory Assistive Device (Walker, Cane, Wheelchair, Crutches, etc.)? No PATIENT GENDER DATA: Assigned female at . status: : No status: NO. PATIENT RELEVANT IMPLANT DATA REVIEWED: Yes PATIENT PRESENTS WITH AN IMPLANTABLE OR ATTACHED COMPUTER OPERATIONS SUPERVISOR: No RADIOLOGY DEPARTMENT: General X-ray: Exam(s) Completed: Upper Extremity X-Ray(s): Fingers/Thumb, right PERIPHERAL IV DATA: Not applicable SIGNED BY: Darleen Gross February 26, 2025 1:20 PM [facility] 02-26-2025 Note HNO ID: [id number] Author: TATIANA RONQUILLO MD Service: ? Author Type: Physician Type: Progress Notes Filed: 02/26/2025 13:13 Note Text: Chief Complaint Patient presents with: ER F/U Recording using [employer] software for draft documentation of the visit was discussed with the patient/authorized outside medical sales representative; all questions welcomed and answered. Patient/authorized outside medical sales representative agreed to proceed HPI Temitope Haddad is a 69 year old female who presents here today for ER Follow Up. Accompanied today by her . Fall: - Fall occurred about a month ago while moving in the dark; tripped over a curb and landed on the right side. - Head impact during the fall; wearing a hat, which Temitope believes prevented bruising or scrapes. - Initial evaluation at [facility] included x-rays of the hand and shoulder, and a CT scan of the head; all results were normal. - Reports initial pain in the hand, wrist, and upper arm; currently only experiencing pain in the right ring finger. - Pain in the right ring finger began after the fall; Temitope fell on a closed fist. - Denies current pain in the elbow, wrist, or shoulder. - No headaches, nausea, emesis, or vision changes since the fall. - Denies use of a cane or walker; feels stable when walking. - No recent falls; currently rearranging items in the house after moving. - Taking Tylenol for pain; denies using ice or other treatments for swelling. - Denies fevers or chills. Depression: - Reports feeling "a little depressed" due to the recent passing of a cousin. Past medical history, appointments, medications, allergies reviewed. Previous Medical History PAST MEDICAL HISTORY Diagnosis Date Abdominal pain, right lower quadrant Benign neoplasm of colon Chronic kidney disease (CKD), stage III (moderate) ([facility]) COPD (chronic obstructive pulmonary disease) ([facility]) Dr. Wallace Depression Dysuria Generalized anxiety disorder [...] Left leg, managed by plastic surgery Stroke ([facility]) x 4 Suprapubic pain Vitamin D deficiency [...] tablet by mouth once daily. levothyroxine (SYNTHROID) 75 mcg tablet Take 1 tablet by mouth once daily. montelukast (SINGULAIR) 10 mg tablet Take 1 tablet by mouth daily at bedtime. atorvastatin (LIPITOR) 40 mg tablet Take 1 tablet by mouth daily at bedtime. For cholesterol. pantoprazole (PROT (more content not included)... [facility] 01-31-2025 Radiology Diagnostic study note [facility] Imaging Services [address] [place] [id number] Brain/Head without Contrast MR#: [id number] Acct: [id number] Name: TEMITOPE HADDAD Rep #: [id number] : 1955 F 69 From: Danilo Barrios MD PCP: Dr. Bird Ronquillo MD Status: REG ER Study:Brain/Head without Contrast Date of Exa m: 01/31/25 Exam# [id number] Ordering Dr: Kira Payne DO PROCEDURE: BRAIN/HEAD WITHOUT CONTRAST 01/31/2025 REASON FOR EXAM: HEAD TRAUMA TECHNIQUE: Procedure Code: CTBR Modality: CT Procedure: BRAIN/HEAD WITHOUT CONTRAST Coronal and Sagittal reconstruction series were provided. One or more dose reduction techniques were used (e.g., Automated exposure control, adjustment of the mA and/or kV according to patient size, use of iterative reconstruction technique. RADIATION DOSE SUMMARY: CTDlvol: 45 mGy DLP: 779 mGycm COMPARISON: MRI on 06/07/2022 FINDINGS: Normal brainstem. Normal cerebellum. No intracranial mass. No intracranial hemorrhage. No edema. Bony calvarium intact. Sinuses are clear CT/Brain/Head without Contrast IMPRESSION: No acute abnormality Reading Location: [facility] CC: Dr. Bird Ronquillo MD; Dr. Jenni Payne, ~ Cross Country Truck Driver: Signed [facility] 01-31-2025 Radiology Diagnostic study note [facility] Imaging Services [address] [place], [place] [id number] Hand Min 3 Views MR#: [id number] Acct: [id number] Name: HADDADTEMITOPE TADEO Rep #: [id number] : 1955 F 69 From: Richard Bull MD PCP: Dr. Bird Ronquillo MD Status: PRE ER Study:Hand Min 3 Views Date of Exam: 10/20 Exam# [id number] Ordering Dr: Provider ,Ed P. PROCEDURE: HAND MIN 3 VIEWS 01/31/2025 REASON FOR EXAM: PAIN. Patient fell 2 days ago. TECHNIQUE: Procedure Code: [facility] Modality: DX Procedure: HAND MIN 3 VIEWS Laterality: Right COMPARISON: 07/19/2022 FINDINGS: BONES: No acute fracture or focal osseous lesion. JOINTS: No dislocation. The joint spaces are preserved. SOFT TISSUES: The soft tissues are unremarkable. RAD/Hand Min 3 Views IMPRESSION: No acute osseous abnormality. Reading Location: [facility] CC: Dr. Bird Ronquillo MD; ED PHYSICIAN PROVIDER ~ [employer] Truck Driver: Signed [facility] 01-31-2025 Radiology Diagnostic study note [facility] Imaging Services [address] [place] [address] Shoulder min 2 Views MR#: [id number] Acct: [id number] Name: TEMITOPE HADDAD Rep #: [id number] : 1955 F 69 From: Richard Bull MD PCP: Dr. Bird Ronquillo MD Status: PRE ER Study:Shoulder min 2 Views Date of Exam: 01/31/25 Exam# [id number] Ordering Dr: Ervin Seaman PROCEDURE: SHOULDER MIN 2 VIEWS 01/31/2025 REASON FOR EXAM: PAIN TECHNIQUE: Procedure Code: RADSH Modality: DX Procedure: SHOULDER MIN 2 VIEWS Laterality: Right COMPARISON: 04/19/2022 FINDINGS: BONES: No acute fracture or focal osseous lesion. JOINTS: No dislocation. The joint spaces are preserved. Small inferior AC joint osteophytes, unchanged. SOFT TISSUES: The soft tissues are unremarkable. RAD/Shoulder min 2 Views IMPRESSION: No acute osseous abnormality. Reading Location: [facility] CC: Dr. Bird Ronquillo MD; ED PHYSICIAN PROVIDER ~ [employer] Truck Driver: Signed [facility] 01-31-2025 Hospital Discharg e instructions Additional Instructions Nothing is broken on your imaging today. Ice and use Tylenol as needed for pain. As we discussed I would recommend using an Giles wrap to your hand to help with the pain. Continued pain please follow-up with your primary care doctor for repeat evaluation in the next 1 to 2 weeks. [facility] Work Phone: 01-19-2025 Discharge summary [facility] 01-19-2025 Radiology Diagnostic study note [facility] Imaging Services [address] [place] [address] Lumbar Spine 2 or 3 Views MR#: [id number] Acct: [id number] Name: TEMITOPE HADDAD Rep #: [id number] : 1955 F 69 From: Pet er Peer DO PCP: Dr. Bird Ronquillo MD Status: REG ER Study:Lumbar Spine 2 or 3 Views Date of Exam: 01/19/25 Exam# [id number] Ordering Dr: Naif Jackson MD PROCEDURE: LUMBAR SPINE 2 OR 3 VIEWS 01/19/2025 REASON FOR EXAM: PAIN TECHNIQUE: LUMBAR SPINE 2 OR 3 VIEWS FINDINGS: Vertebrae: Heights are intact. No significant endplate spondylosis. Discs: Heights are maintained. No significant degenerative disc disease. Alignment: AP alignment shows normal lumbar lordosis. Other: No acute process. RAD/Lumbar Spine 2 or 3 Views IMPRESSION: No acute process detected. Reading Location: [facility]- CC: Dr. Naif Jackson MD; Dr. Bird Ronquillo MD ~ [employer] Truck Driver: Signed [facility] 01-19-2025 Discharge summary Note Date/Time January 19, 2025 6:45pm [facility] Medical Records Department [address] [place] [address] Emergency Department Summary 01/19/25 MR#: [id number] Acct: [id number] Name: TEMITOPE HADDAD Rep #:[id number] : 1955 69 From: Naif Jackson MD PCP: Dr. Bird Ronquillo MD Status :REG ER Location: ED HPI History of Present Illness Chief Complaint: Back Narrative Narrative: 69-year-old female presents with right-sided back pain that she experienced 4 to5 days ago. She is she states that she was just standing and felt a pop in her back. She now has pain when she tries to bend or twist her torso/trunk. She denies any red flag signs for cauda equina. No fevers or chills, no nausea or vomiting. No saddle anesthesia, no radiation down the leg. She has been takingTylenol without relief. She states that the pain has been increasing in her right lower back. No dysuria or hematuria or other symptoms. [facility] Medical History Osteoporosis Kidney stones Kidney disease GERD (gastroesophageal reflux disease) Myocardial infarct Internal impingement of right shoulder Hypothyroidism Abnormal Holter monitor finding Sinus pause Mixed hyperlipidemia Atherosclerotic heart disease of [place] coronary artery without angina pectoris Essential hypertension Traumatic avulsion of nail plate of toe Thigh pain History of IBS Wears glasses Wears dentures Depression Anxiety Skin tear Bruising Thyroid disease Ambulates with cane History of renal disease Arthritis High cholesterol Easy bruising Restless legs Difficulty swallowing Difficulty chewing History of hiatal hernia Gastric reflux Former smoker Shortness of breath on exertion Stroke/cerebrovascular accident History of echocardiogram History of stress test History of heart attack History of irregular heartbeat Acute seasonal allergic rhinitis Acute serous otitis media Acute dysfunction of both eustachian tubes Fuchs' corneal dystrophy HTN (hypertension) COPD (chronic obstructive pulmonary disease) Bronchitis Constipation Abdominal pain Chest pain CAD (coronary artery disease) Hypoxia Diaphragm paralysis History of cerebrovascular disease History of CVA (cerebrovascular accident) Anxiety disorder Home Medications ?Medication ?Instructions ?Recorded ?Last Taken ?Type clopidogrel 75 mg tablet 75 mg PO DAILY BLOOD THINNER 30 06/08/22 09/29/24 Rx days #30 tabs atorvastatin 40 mg tablet 40 mg PO DAILY 07/01/2209/20 History losartan 25 mg tablet 25 mg PO DAILY #90 tabs 09/1809/29/24 Rx alendronate 70 mg tablet 70 mg PO Q7D 08/14/23 History cholecalciferol (vitamin D3) 125 125 mcg PO DAILY 07/2709/29/24 History mcg (5,000 unit) tablet citalopram 10 mg tablet 10 mg PO DAILY 08/14/2309/20 History montelukast 10 mg tablet 10 mg PO DAILY 12/01/2309/20 History multivitamin (One Daily 1 tab PO DAILY 01/16/2409/20 History Multivitamin tablet) ondansetron 4 mg disintegrating 4 mg PO Q8H PRN PRN Na usea #10 tabs 07/31/24 Unknown Rx tablet levothyroxine 75 mcg tablet 75 mcg PO DAILY 09/30/24 0 09/29/24 History pantoprazole 40 mg tablet,delayed 40 mg PO DAILY 09/3009/29/24 History release levocetirizine 5 mg tablet 5 mg PO DAILY ALLERGIES #90 tabs 10/16/24 Unknown Rx (Allergy Relief (levocetirizine)) albuterol sulfate 90 mcg/actuation 2 puff inhalation Q 6H PRN 10/28/24 Unknown Rx aerosol inhaler Shortness Of Breath #3 ea fluticasone fur. 200 mcg-umeclid 1 inh inhalation TONY Y #60 ea 01/06/25 Unknown Rx 62.5 mcg-vilant 25 mcg inhalat.powder (Trelegy Ellipta) naproxen 500 mg tablet 500 mg PO BID PRN #20 tabs 0 01/19/25 Unknown Rx oxycodone 5 mg tablet 5 mg PO Q6H PRN pain 3 days #12 01/19/25 Unknown Rx tabs Allergy/AdvReac Type Severity Reaction Status Date / Time hydrocodone bitartrate (From Allergy HALLUCINATE Verified 01/19/25 15:33 Vicodin) S piperacillin (From Zosyn) Allergy Hives Verified 01/19/25 15:33 tazobactam (From Zosyn) Allergy Hives Verified 01/19/25 15:33 vancomycin Allergy Rash Verified 01/19/25 15:33 fish derived AdvReac Anaphylaxis Verified 01/19/25 15:33 morphine AdvReac HALLUCINATE Verified 01/19/25 15:33 S Family History Mother Diabetes Heart disease Hypertension High cholesterol Father Heart disease Hypertension High cholesterol CVA (cerebral vascular accident) Surgical History History of right breast biopsy History of surgery on lower extremity History of bilateral cataract extraction History of shoulder surgery History of tubal ligation Social History household members: significant other housing: apartment pets and animals: Yes pets and animals: dog(s) Smoking Status: Former smoker quit date: 10/28/19 pack-years: 25 Tobacco: How many years used: 25 second hand exposure: Yes alcohol intake: never substance use type: does not use caffeine: Yes Type: coffee Number of servings: 1 ROS ROS ED ROS Narrative Review of systems positive for right-sided low back pain/lumbar pain. No feversor chills, no nausea or vomiting, no radiation down the leg, no saddle anesthesia. No loss of bowel or bladder. EXAM Physical Exam Narrative Exam Narrative: Afebrile. Vital signs noted. Nontoxic-appearing. Cardiovascular examination of is a regular rate and rhythm. Lungs are clear to auscultation bilaterally. Abdomen is soft and nontender with positive bowel sounds. Positive tenderness to palpation right paraspinal musculature. No vertebral point tenderness or bony step-off. Neurovasc intact bilateral lower extremities. EHL intact bilateral lower extremities. Const Vital Signs: 01/19/25 15:33 Temperature 97.7 F L Temperature Source Oral Pulse Rate 74 Respiratory Rate 18 Blood Pressure 126/67 H Blood Pressure Mean 86 Pulse Ox 94 Oxygen Delivery Method Room Air MDM MDM MDM Narrative Medical decision making narrative: Differential diagnosis includes but not limited to musculoskeletal back pain/lumbosacral strain versus cauda equina versus lumbar radiculopathy. History and physical does not support either of the latter 2 diagnoses as she isnot having any radiation of her pain, and there are no red flag signs. I had a lengthy discussion with the patient and her . Although she states she hallucinates with hydrocodone codon and morphine, she has tolerated oxycodone previously. She was given 1 tablet of naproxen and 1 of 5 mg oxycodone. X-rayswill be obtained to rule out any vertebral fracture. Lumbar x-rays interpreted by myself independently show no evidence of acute fracture. I reviewed the radiology report which confirms my independent interpretation. Upon repeat examination she is feeling mildly improved. At this point in time, if this can be discharged to follow-up with her primary careprovider. She was written a prescription for short course of oxycodone to take for breakthrough pain and for naproxen. I do feel muscle relaxers are best leftto her primary care provider if need be. She was told she may need PT/OT and other outpatient imaging. Return instructions to the emergency department were reviewed. Disposition is discharged home in stable condition. History & Record Review Discussion w/independent historian: Patient and Family Radiography X-Ray: LS SPine, Read by ED Physician, Read by Radiologist and No Fracture Diagnostic Testing: Clinical Impression(s) from Imaging Studies Lumbar Spine X-Ray 01/19/25 16:25 IMPRESSION: No acute process detected. Reading [facility] Discharge Plan Triage Chief Complaint: Back ED Provider: Naif Jackson Dx/Rx/DC Orders Clinical Impression: Lumbosacral strain, Acute back pain Instructions: ED Back Exercises, Lumbar, ED Back Pain (Acute or Chronic), ED Back Sprain/Strain Prescriptions: New naproxen 500 mg tablet 500 mg PO BID PRN Qty: 20 0RF oxycodone 5 mg tablet 5 mg PO Q6H PRN (Reason: pain) 3 Days Qty: 12 0RF No Action atorvastatin 40 mg tablet 40 mg PO DAILY losartan 25 mg tablet 25 mg PO DAILY Qty: 90 3RF montelukast 10 mg tablet 10 mg PO DAILY clopidogrel 75 MG tablet 75 mg PO DAILY 30 Days Qty: 30 0RF alendronate 70 mg tablet 70 mg PO Q7D Patient Comments: PLEASE SEE ATTACHED FOR DETAILED DIRECTIONS citalopram 10 mg tablet 10 mg PO DAILY cholecalciferol (vitamin D3) 125 mcg (5,000 unit) tablet 125 mcg PO DAILY multivitamin [One Daily Multivitamin] Tablet 1 tab PO DAILY ondansetron 4 mg tablet,disintegrating 4 mg PO Q8H PRN PRN (Reason: Nausea) Qty: 10 0RF levothyroxine 75 mcg tablet 75 mcg PO DAILY pantoprazole 40 mg tablet,delayed release (DR/EC) 40 mg PO DAILY levocetirizine [Allergy Relief (levocetirizin)] 5 mg tablet 5 mg PO DAILY Qty: 90 3RF albuterol sulfate 90 mcg/actuation HFA aerosol inhaler 2 puff inhalation Q6H PRN (Reason: Shortness Of Breath) Qty: 3 3RF Trelegy Ellipta 200-62.5-25 mcg blister with device 1 inh inhalation DAILY Qty: 60 6RF Primary Care Provider: Bird Ronquillo Referrals: Bird Ronquillo MD [Primary Care Provider] - 3-5 Days if not improving Activity Restrictions/Additional Instructions: Medication as directed. Follow-up with your primary care provider. You may require physical therapy/Occupational Therapy and other outpatient imaging. Print Language: Jamaican Disposition Disposition: Home, Self Care What to do if you have Problems For any increased pain, shortness of breath, bleeding, nausea or vomiting, chestpain, or any unexpected problems, contact your Primary Care Provider. Call [facility] ([phone]) or report to the closest Emergency Room. Call 911 if necessary. 01/19/251844 <Electronically signed by Naif Jackson MD> Cosigner Signature (if applicable): CC: Dr. Bird Ronquillo MD ~ Signed [facility] Work Phone: [phone]) 853-966708-13-2025 Miscellaneous Notes* Telephone Encounter - Fadumo Alvarado RN - 01/08/2025 4:26 PM EDT Patient calling for refills on Plavix and levothyroxine. Advised patient that there should be refills at [facility]. Fadumo Alvarado RN documented in this encounterFire[facility] Telephone encounter Note * Telephone Encounter - Fadumo Alvarado RN - 01/08/2025 4:26 PM EDT Patient calling for refills on Plavix and levothyroxine. Advised patient that there should be refills at [facility]. Fadumo Alvarado RN [facility]07-22-2025 Telephone encounter Note* Telephone Encounter - Fadumo Alvarado RN - 12/17/2024 4:10 PM EDT The patient has been identified by name and date of : Yes Caregiver verified no other encounters exist for this prescription request: Yes Caregiver confirmed with patient/requestor that no other refills are due, in the near future, with this provider at this time: Yes The last office visit in the department: 10/23/2024 Does the patient have a future office visit with this provider/department: No Requested Prescriptions Pending Prescriptions Disp Refills alendronate (FOSAMAX) 70 mg tablet 12 tablet 3 Sig: Take 1 tablet by mouth one time a week. Take with a full glass of water, on an empty stomach; do NOT lie down for 30minutes. Fadumo Alvarado RN December 17, 2024 4:10 PM [facility]07-22-2025 Miscellaneous Notes* Telephone Encounter - Fadumo Alvarado RN - 12/17/2024 4:10 PM EDT The patient has been identified by name and date of : Yes Caregiver verified no other encounters exist for this prescription request: Yes Caregiver confirmed with patient/requestor that no other refills are due, in the near future, with this provider at this time: Yes The last office visit in the department: 10/23/2024 Does the patient have a future office visit with this provider/department: No Requested Prescriptions Pending Prescriptions Disp Refills alendronate (FOSAMAX) 70 mg tablet 12 tablet 3 Sig: Take 1 tablet by mouth one time a week. Take with a full glass of water, on an empty stomach; do NOT lie down for 30minutes. Fadumo Alvarado RN December 17, 2024 4:10 PM documented in this encounterFirelands [facility]07-10-2025 Evaluation note* Diagnosis Onset Date Resolution Status Admit Date Chronic hypoxic respiratory failure chronic December 05, 2024 1:54pm Lung nodule chronic December 05 1:54pm 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 December 05, 2024 1:54pm [facility] Work Phone: [phone]) 724-347407-03-2025 Telephone encounter Note* Telephone Encounter - Dominga Whitley RN - 11/28/2024 3:49 PM EDT The patient has been identified by name and date of : Yes Caregiver verified no other encounters exist for this prescription request: Yes Caregiver confirmed with patient/requestor that no other refills are due, in the near future, with this provider at this time: Yes The last office visit in the department: 10/23/2024 Does the patient have a future office visit with this provider/department: not scheduled yet, not due Requested Prescriptions Pending Prescriptions Disp Refills citalopram hydrobromide (CELEXA) 10 mg tablet 90 tablet Sig: Take 1 tablet by mouth once daily. levothyroxine (SYNTHROID) 75 mcg tablet 90 tablet Sig: Take 1 tablet by mouth once daily. montelukast (SINGULAIR) 10 mg tablet 30 tablet Sig: Take 1 tablet by mouth daily at bedtime. atorvastatin (LIPITOR) 40 mg tablet 90 tablet Sig: Take 1 tablet by mouth daily at bedtime. For cholesterol. Dominga Whitley RN [facility]07-03-2025 Miscellaneous Notes* Telephone Encounter - Dominga Whitley RN - 11/28/2024 3:49 PM EDT The patient has been identified by name and date of : Yes Caregiver verified no other encounters exist for this prescription request: Yes Caregiver confirmed with patient/requestor that no other refills are due, in the near future, with this provider at this time: Yes The last office visit in the department: 10/23/2024 Does the patient have a future office visit with this provider/department: not scheduled yet, not due Requested Prescriptions Pending Prescriptions Disp Refills citalopram hydrobromide (CELEXA) 10 mg tablet 90 tablet Sig: Take 1 tablet by mouth once daily. levothyroxine (SYNTHROID) 75 mcg tablet 90 tablet Sig: Take 1 tablet by mouth once daily. montelukast (SINGULAIR) 10 mg tablet 30 tablet Sig: Take 1 tablet by mouth daily at bedtime. atorvastatin (LIPITOR) 40 mg tablet 90 tablet Sig: Take 1 tablet by mouth daily at bedtime. For cholesterol. Dominga Whitley RN documented in this encounterFirelands [facility]06-23-2025 Radiology Diagnostic study note [facility] Imaging Services [address] [place] [id number] Lung Screening MR#: [id number] Acct: [id number] Name: TEMITOPE HADDAD Rep #: [id number] : 1955 F 69 From: Abner Castillo MD PCP: Dr. Bird Ronquillo MD Status: [facility] CLI Study:Low Dose CT Lung Screening Date of Exam : 11/18/24 Exam# [id number] Ordering Dr: Kira Fernandez NP [employer] PROCEDURE: LOW DOSE CT LUNG SCREENING 11/18/2024 REASON FOR EXAM: SMOKER Patient has smoked 2 packs per day for 40 years. Former smoker. TECHNIQUE: LOW DOSE CT LUNG SCREENING Coronal and Sagittal reconstruction series were provided. One or more dose reduction techniques were used (e.g., Automated exposure control, adjustment of the mA and/or kV according to patient size, use of iterative reconstruction technique). REFERENCE LINK: [employer] Lung-RADS RADIATION DOSE SUMMARY: CTDlvol: 3.02 mGy DLP: 107.97 mGycm COMPARISON: Prior study dated November 15, 2023. FINDINGS: PULMONARY NODULES: (Only nodules >3mm are reported) Nodules described below are on series 1 unless otherwise specified. Pulmonary Nodules: Essentially unchanged noncalcified nodule in the medial right upper lobe. Hardware:None Lymph Nodes:Small mediastinal lymph nodes. Heart and Vasculature:Coronary artery calcifications are noted. Coronary Artery Calcifications: Present Lungs and Airways: Mild emphysematous changes are present. Pleura:No evidence of pleural effusion. Upper Abdomen:Unremarkable Bones:Degenerative changes of the thoracic spine. CT/Low Dose CT Lung Screening IMPRESSION: Stable examination. Coronary artery calcification (CAC) is is present Lung-RADS Category: 2 BENIGN (BASED ON IMAGING FEATURES OR INDOLENT BEHAVIOR). RECOMMEND 12-MONTH SCREENING LDCT. Other Significant Findings: None. Reading Location: [id number] CC: CARLO Fernandez; Dr. Bird Ronquillo MD ~ [employer] Truck Driver: Signed [facility]06-11-2025 Telephone encounter Note* Telephone Encounter - Desirae Donis - 11/06/2024 12:50 PM EDT Prescription Refill Information The patient has been identified by name and date of : Yes Caregiver verified no other encounters exist for this prescription request: Yes Caregiver confirmed with patient/requestor that no other refills are due, in the near future, with this provider at this time: Yes The last office visit in the department: 10-23-24 Does the patient have a future office visit with this provider/department: Yes Requested Prescriptions Pending Prescriptions Disp Refills pantoprazole DR (PROTONIX) 40 mg tablet 90 tablet 1 Sig: Take 1 tablet by mouth once daily. 30 minutes before eating. Desirae Donis November 06, 2024 12:50 PM [facility]06-11-2025 Miscellaneous Notes* Telephone Encounter - Desirae Donis - 11/06/2024 12:50 PM EDT Prescription Refill Information The patient has been identified by name and date of : Yes Caregiver verified no other encounters exist for this prescription request: Yes Caregiver confirmed with patient/requestor that no other refills are due, in the near future, with this provider at this time: Yes The last office visit in the department: 10-23-24 Does the patient have a future office visit with this provider/department: Yes Requested Prescriptions Pending Prescriptions Disp Refills pantoprazole DR (PROTONIX) 40 mg tablet 90 tablet 1 Sig: Take 1 tablet by mouth once daily. 30 minutes before eating. Desirae Donis November 06, 2024 12:50 PM documented in this encounterFirelands [facility]05-28-2025 Telephone encounter Note * Telephone Encounter - Talita Preston LPN - 10/23/2024 12:39 PM EDT Phoned patient and reviewed message with her. She voiced understanding. Talita Preston LPN [facility]05-28-2025 Miscellaneous Notes* Telephone Encounter - Talita Preston LPN - 10/23/2024 12:39 PM EDT Phoned patient and reviewed message with her. She voiced understanding. Talita Preston LPN * Telephone Encounter - Talita Preston LPN - 10/23/2024 12:38 PM EDT ----- Message from Tatiana Ronquillo MD sent at 10/23/2024 12:31 PM EDT ----- Xray of the right tib/fib is negative for fracture. documented in this encounterFirelands [facility]05-28-2025 Telephone encounter Note * Telephone Encounter - Talita Preston LPN - 10/23/2024 12:38 PM EDT ----- Message from Tatiana Ronquillo MD sent at 10/23/2024 12:31 PM EDT ----- Xray of the right tib/fib is negative for fracture. [facility]05-28-2025 History of Present illness Narrative* Faby Rivas RT(R) - 10/23/2024 11:00 AM EDT Radiology Service Progress Note PATIENT NAME: Temitope Haddad DATE OF SERVICE: October 23, 2024 TIME: 11:06 AM PATIENT IDENTITY VERIFICATION COMPLETED USING TWO (2) IDENTIFIERS: Name and Date of confirmedby patient verbally. FALL SCREENING: Has the patient had 2 falls in the last year or 1 fall with injury or currently using an Ambulatory Assistive Device (Walker, Cane, Wheelchair, Crutches, etc.)? No PATIENT GENDER DATA: Assigned female at . status: : No status:NO. PATIENT RELEVANT IMPLANT DATA REVIEWED: Not Applicable PATIENT PRESENTS WITH AN IMPLANTABLE OR ATTACHED COMPUTER OPERATIONS SUPERVISOR: No RADIOLOGY DEPARTMENT: General X-ray: Exam(s) Completed: Lower Extremity X- Ray(s): Tibia Fibula, Right PERIPHERAL IV DATA: Not applicable SIGNED BY: SEDA Delong) October 23, 2024 11:06 AM documented in this encounterFirelands Regional Medical [facility]05-28-2025 NoteHNO ID: [id number] Author: FABY RIVAS RT (R) Service: Radiology Author Type: Technologist Type: Progress Notes Filed: 10/23/2024 11:13 Note Text: Radiology Service Progress Note PATIENT NAME: Temitope Haddad DATE OF SERVICE: October 23, 2024 TIME: 11:06 AM PATIENT IDENTITY VERIFICATION COMPLETED USING TWO (2) IDENTIFIERS: Name and Date of confirmed by patient verbally. FALL SCREENING: Has the patient had 2 falls in the last year or 1 fall with injury or currently using an Ambulatory Assistive Device (Walker, Cane, Wheelchair, Crutches, etc.)? No PATIENT GENDER DATA: Assigned female at . status: : No status: NO. PATIENT RELEVANT IMPLANT DATA REVIEWED: Not Applicable PATIENT PRESENTS WITH AN IMPLANTABLE OR ATTACHED COMPUTER OPERATIONS SUPERVISOR: No RADIOLOGY DEPARTMENT: General X-ray: Exam(s) Completed: Lower Extremity X-Ray(s): Tibia Fibula, Right PERIPHERAL IV DATA: Not applicable SIGNED BY: Faby Rivas RT(R) October 23, 2024 11:06 [facility]05-28-2025 Instructions* Patient Instructions* Tatiana Ronquillo MD - 10/23/2024 10:44 AM EDT - I have referred you to a GI specialist for further evaluation; they may repeat your colonoscopy or perform additional gallbladder testing (e.g., ultrasound or HIDA scan) - Continue taking Protonix before meals as prescribed - Avoid fatty or greasy foods if they trigger your abdominal pain - Use Tylenol as needed for pain relief - For your leg hematoma, apply ice packs for 15-20 minutes, 2-3 times a day, and keep your leg elevated when possible - Contact our office or go to the ER if the swelling or bruising around your leg worsens, spreads, or begins to bleed - Seek immediate emergency care if you experience severe abdominal pain (10/10) that does not improve, persistent nausea or vomiting, inability to keep down fluids, blood in your stool, black/tarry stools, or inability to pass gas or stools documented in this encounterFirelands Regional [facility]05-28-2025 NoteHNO ID: [id number] Author: TATIANA RONQUILLO MD Service: ? Author Type: Physician Type: Progress Notes Filed: 10/23/2024 11:15 Note Text: Chief Complaint Patient presents with: ER F/U: Patient to ER 2 separate visits and continues to have pain Recording using ambient AI software for draft documentation of the visit was discussed with the patient/authorized outside medical sales representative; all questions welcomed and answered. Patient/authorized outside medical sales representative agreed to proceed HPI Temitope Haddad is a 69 year old female who presents here today for Above Complaints. RLQ Abdominal Pain: - Initial ER visit on 09/30 for RLQ abdominal pain with associated nausea and emesis. - Pain described as continuous, mild, and worsened by ambulation; no alleviating factors identified. - Denied hematochezia, mucus in stool, or constipation. - No history of diverticulitis or diverticulosis. - CT abdomen and pelvis negative for acute findings; CBC showed normal WBC count and no anemia. - BMP revealed elevated BUN/creatinine ratio of 26:1 and glucose of 110 mg/dL; lactic acid <1. - Treated with IV antibiotics and discharged with instructions to follow up in 3-5 days. - Second ER visit on 10/13 for recurrent RLQ pain, described as sharp and intermittent, rated 10/10. - Pain not associated with specific triggers; no radiation of pain. - Associated with nausea; took Zofran and aspirin with minimal relief. - Denied fevers, chills, dyspnea, chest pain, emesis, dysuria, or hematuria. - CT abdomen and pelvis, CBC, CMP, lipase, and UA unremarkable. - Diagnosed with abdominal pain and discharged with instructions to follow up in 3-5 days. - Reports pain is still present, comes and goes, and is not associated with eating, coughing, sneezing, or bowel movements. - Avoiding greasy foods, which seems to reduce the frequency of pain episodes. - Takes Tylenol for pain with variable relief. - No new episodes of nausea, emesis, diarrhea, or constipation since last ER visit. - Denies hematochezia or melena. - No changes in urinary symptoms; has a history of overactive bladder. Hematoma: - Fell on bleachers on Monday night, resulting in a hematoma on the right holley. - No head injury or loss of consciousness; caught her during the fall. - Describes the injury as a "scratch" with minimal bleeding; treated with rubbing alcohol and bandages. - Reports pain in the right holley and ankle when walking; ankle was previously fractured. - No bruising or swelling noted in the ankle; able to move the ankle without difficulty. - Denies pain in the ankle at rest; pain is intermittent and depends on activity level. Past medical history, appointments, medications, allergies reviewed. Previous Medical History PAST MEDICAL HISTORY Diagnosis Date Abdominal pain, right lower quadrant Benign neoplasm of colon Chronic kidney disease (CKD), stage III (moderate) (HCC) COPD (chronic obstructive pulmonary disease) ([facility]) Dr. Wallace Depression Dysuria Generalized anxiety disorder [...] Other Maternal Side, sisters Coronary Artery Disease (more content not included)...[facility] 10-23-2024 History of Present illness Narrative* Tatiana Ronquillo MD - 10/23/2024 10:24 AM EDT Chief Complaint Patient presents with: ER F/U: Patient to ER 2 separate visits and continues to have pain Recording using ambient AI software for draft documentation of the visit was discussed with the patient/authorized outside medical sales representative; all questions welcomed and answered. Patient/authorized outside medical sales representative agreed to proceed HPI Temitope Haddad is a 69 year old female who presents here today for Above Complaints. RLQ Abdominal Pain: - Initial ER visit on 09/30 for RLQ abdominal pain with associated nausea and emesis. - Pain described as continuous, mild, and worsened by ambulation; no alleviating factors identified. - Denied hematochezia, mucus in stool, or constipation. - No history of diverticulitis or diverticulosis. - CT abdomen and pelvis negative for acute findings; CBC showed normal WBC count and no anemia. - BMP revealed elevated BUN/creatinine ratio of 26:1 and glucose of 110 mg/dL; lactic acid <1. - Treated with IV antibiotics and discharged with instructions to follow up in 3-5 days. - Second ER visit on 10/13 for recurrent RLQ pain, described as sharp and intermittent, rated 10/10. - Pain not associated with specific triggers; no radiation of pain. - Associated with nausea; took Zofran and aspirin with minimal relief. - Denied fevers, chills, dyspnea, chest pain, emesis, dysuria, or hematuria. - CT abdomen and pelvis, CBC, CMP, lipase, and UA unremarkable. - Diagnosed with abdominal pain and discharged with instructions to follow up in 3-5 days. - Reports pain is still present, comes and goes, and is not associated with eating, coughing, sneezing, or bowel movements. - Avoiding greasy foods, which seems to reduce the frequency of pain episodes. - Takes Tylenol for pain with variable relief. - No new episodes of nausea, emesis, diarrhea, or constipation since last ER visit. - Denies hematochezia or melena. - No changes in urinary symptoms; has a history of overactive bladder. Hematoma: - Fell on bleachers on Monday night, resulting in a hematoma on the right holley. - No head injury or loss of consciousness; caught her during the fall. - Describes the injury as a "scratch" with minimal bleeding; treated with rubbing alcohol and bandages. - Reports pain in the right holley and ankle when walking; ankle was previously fractured. - No bruising or swelling noted in the ankle; able to move the ankle without difficulty. - Denies pain in the ankle at rest; pain is intermittent and depends on activity level. Past medical history, appointments, medications, allergies reviewed. Previous Medical History PAST MEDICAL HISTORY Diagnosis Date Abdominal pain, right lower quadrant Benign neoplasm of colon Chronic kidney disease (CKD), stage III (moderate) ([facility]) COPD (chronic obstructive pulmonary disease) ([facility]) Dr. Wallace Depression Dysuria Generalized anxiety disorder [...] Left leg, managed by plastic surgery Stroke ([facility]) x 4 Suprapubic pain Vitamin D deficiency [...] 1 tablet by mouth daily at bedtime. clopidogrel (PLAVIX) 75 mg tablet Take 1 tablet by mouth once daily. losartan (COZAAR) 25 mg tablet Take 1 tablet by mouth once daily. ondansetron orally disintegrating (ZOFRAN ODT) 4 mg disintegrating tablet 1 TABLET ORALLY EVERY 8 HOURS NEEDED NEEDED FOR NAUSEA atorvastatin (LIPITOR) 40 mg tablet Take 1 tablet by mouth daily at bedtime. For cholesterol. citalopram hydrobromide (CELEXA) 10 mg tablet Take 1 tablet by mouth once daily. cholecalciferol (VITAMIN D3) 5,000 unit tab Take 1 tablet by mouth once daily. pantoprazole DR (PROTONIX) 40 mg tablet Take 1 tablet by mouth once daily. 30 minutes before eating. TRELEGY ELLIPTA 200-62.5-25 mcg inhalation powder Inhale 1 Puff as instructed once daily. alendronate (FOSAMAX) 70 mg tablet Take 1 tablet by mouth one time a week. Take with a full glass of water, on an empty stomach; do NOT lie down for 30minutes. (Patient not taking: Reported on 07/11/2024) MOTION SICKNESS RELIEF,MECLIZ, 25 mg chewable tablet(s) Take 1 tablet by mouth three times a day asneeded for dizziness. citalopram hydrobromide (CELEXA) 10 mg [...] date: 07/27/1978 Quit date: 07/27/2020 Years since quittin.2 Smokeless tobacco: Never Tobacco comments: d/c 07/27/2020 Vaping Use Vaping status: Never Used Substance Use Topics Alcohol use: No Drug use: No Review of Symptoms REVIEW OF SYSTEMS See HPI EXAM: BP 136/72 Pulse 65 Temp 36 C (96.8 F) Resp 16 Wt 79 kg (174 lb 3.2 oz) SpO2 96% BMI 28.12 kg/m GENERAL: NAD, alert and oriented. SKIN: See extremities. HEAD: Normocephalic. EYES: PERRLA, EOMI, conjunctiva clear. LUNGS: Clear to auscultation bilaterally, no wheezes/rhonchi/rales. HEART: Regular rate and rhythm, no murmurs. No ectopy. ABDOMEN: Soft, tenderness noted in the right upper quadrant. No rebound tenderness or guarding. Bowel sounds normal. Negative gutierrez's. EXTREMITIES: Right lower leg with a hematoma measuring approximately 10 cm by 6 cm, non-pulsatile. No deformities, no skin discoloration, no edema. Right ankle without bruising or significant swelling, full range of motion intact. NEURO: Awake, alert and oriented x3, cranial nerves II-XII grossly intact, normal gait, no involuntary motions. Health Maintenance List BP Controlled (<130/80) Never done RSV Vaccine(1 - Risk 60-74 years 1-dose series) Never done Shingrix Vaccine(2 of 2) due on 05/26/2020 Mammogram Screening due on 02/24/2024 Lung Cancer Screening due on 03/14/2024 Advance Directive Discussion Never done Covid-19 Vaccine( season) due on 04/29/2025 DTaP,Tdap,Td Vaccine(1 - Tdap) due on 07/11/2025 Influenza Vaccine(Season Ended) due on 01/27/2025 Serum Creatinine due on 04/29/2025 Annual PCP Team Chronic Disease Visit due on 08/06/2025 Diabetes Screening due on 04/29/2027 Lipid Screening due on 04/29/2029 Colorectal Cancer Screening due on 09/03/2033 Bone Density Screening Completed Pneumococcal Vaccine: 50+ Completed Cervical Cancer Screening Discontinued Hepatitis C Screening Discontinued 1. RLQ abdominal pain (R10.31) 2. RUQ abdominal pain (R10.11) - Recurrent RLQ and RUQ abdominal pain with associated nausea; pain is sharp, rated 10/10, and intermittent. No specific triggers identified, but greasy foods seem to exacerbate the pain. - Two previous ER visits with comprehensive workups including CBC, CMP, lipase, UA, and CT abdomen and pelvis were unremarkable. No evidence of severe infections, appendicitis, abscess, or diverticulitis. - Previous colonoscopy last year was normal. - Continue Protonix before meals. - Advised to avoid fatty foods and use Tylenol as needed for pain management. - Referred to Gastroenterology for further evaluation and management. Discussed potential for additional testing such as repeat colonoscopy or HIDA scan if deemed necessary by GI specialist. - Instructed to seek immediate medical attention if experiencing severe abdominal pain, persistent nausea and vomiting, hematochezia, melena, or inability to pass bowel movements or gas. 3. Fall (on) (from) other stairs and steps, initial encounter (W10.8XXA) 4. Hematoma of right lower extremity, initial encounter (S80.11XA) - Sustained a fall resulting in a hematoma on the right lower extremity, measuring approximately 10cm x 6 cm. No pulsatile characteristics noted. - Mild pain in the right ankle, no significant swelling or bruising observed; full range of motion intact. - Advised to apply ice to the hematoma for 15-20 minutes, 2-3 times daily, and to keep the leg elevated. - Monitor for worsening swelling, bruising, or bleeding; instructed to seek medical attention if these symptoms occur. - Ordered X-ray of the lower leg to rule out fracture. Tatiana Ronquillo MD documented in this encounterFire[facility] Radiology Diagnostic study note [facility] Imaging Services [address] [place] [address] [id number] Abdomen/Pelvis W IV Cont ONLY MR#: [id number] Acct: [id number] Name: TEMITOPE HADDAD Rep #: [id number] : 1955 F 69 From: Sandra Up MD PCP: Dr. Bird Ronquillo MD Status: REG ER Study:Abdomen/Pelvis W IV Cont ONLY Date of E xam: 10/13/24 Exam# [id number] Ordering Dr: Colin Argueta DO PROCEDURE: ABDOMEN/PELVIS W IV CONT ONLY 10/13/2024 REASON FOR EXAM: RIGHT LOWER QUADRANT ABDOMINAL PAIN TECHNIQUE: Abdomen and pelvis CT with intravenous contrast. Coronal and Sagittal reconstruction series were provided. PATIENT PREPARATION: Per protocol ORAL CONTRAST TYPE: None. AMOUNT: mL CONTRAST: Omnipaque 350 VOLUME: 100 mL Not Provided Gauge IV One or more dose reduction techniques were used (e.g., Automated exposure control, adjustment of the mA and/or kV according to patient size, use of iterative reconstruction technique. COMPARISON: CT abdomen and pelvis 09/30/2024 FINDINGS: Lung bases: Emphysema within the imaged lung bases. Liver: Homogeneous attenuation. Several bilobar simple cysts. Gallbladder: No ductal dilation. Gallbladder is unremarkable. Spleen: Normal size. Pancreas: Normal size without evidence of mass surrounding inflammation or ductal dilation. Adrenals: Unremarkable Kidneys: Normal renal sizes. No hydronephrosis. Bladder: Unremarkable Reproductive Organs: No pelvic mass. Bowel: Small hiatal hernia. The stomach is collapsed. No bowel dilation or wall thickening. Colonicdiverticulosis without diverticulitis. Large colonic stool. Appendix: Normal appendix. Lymph nodes: No suspicious lymph node enlargement. Vasculature: Moderate diffuse atherosclerotic calcifications are noted. Peritoneum / Retroperitoneum: No pneumoperitoneum. No ascites. Bones: No acute osseous abnormality. Soft tissue: No focal soft tissue abnormality. CT/Abdomen/Pelvis W IV Cont ONLY IMPRESSION: No acute findings in the abdomen and pelvis. Colonic diverticulosis without diverticulitis. [facility]: Dr. Colin Caba DO; Dr. Bird Ronquillo MD ~ [employer]: Signed [facility]05-08-2025 Telephone encounter Note* Telephone Encounter - Dominga Lowery - 10/03/2024 12:57 PM EDT Prescription Refill Information The patient has been identified by name and date of : Yes Caregiver verified no other encounters exist for this prescription request: Yes Caregiver confirmed with patient/requestor that no other refills are due, in the near future, with this provider at this time: Yes The last office visit in the department: Does the patient have a future office visit with this provider/department: Yes Requested Prescriptions Pending Prescriptions Disp Refills losartan (COZAAR) 25 mg tablet 90 tablet 1 Sig: Take 1 tablet by mouth once daily. Dominga Mena October 03, 2024 12:58 PM [facility]05-08-2025 Miscellaneous Notes* Telephone Encounter - Dominga Lowery - 10/03/2024 12:57 PM EDT Prescription Refill Information The patient has been identified by name and date of : Yes Caregiver verified no other encounters exist for this prescription request: Yes Caregiver confirmed with patient/requestor that no other refills are due, in the near future, with this provider at this time: Yes The last office visit in the department: Does the patient have a future office visit with this provider/department: Yes Requested Prescriptions Pending Prescriptions Disp Refills losartan (COZAAR) 25 mg tablet 90 tablet 1 Sig: Take 1 tablet by mouth once daily. Dominga Mena October 03, 2024 12:58 PM documented in this encounterFirelands [facility]04-02-2025 Telephone encounter Note * Telephone Encounter - Talita Preston LPN - 08/28/2024 8:22 AM EDT Patient updated and voiced understanding. Talita Preston LPN [facility]04-02-2025 Miscellaneous Notes* Telephone Encounter - Talita Preston LPN - 08/28/2024 8:22 AM EDT Patient updated and voiced understanding. Talita Preston LPN * Telephone Encounter - Tatiana Ronquillo MD - 08/27/2024 8:55 PM EDT Per her HIDA scan result note, I do not believe her gallbladder would be cause for her pain and would not recommend anything further for overactive GB. * Telephone Encounter - Talita Preston LPN - 08/16/2024 3:26 PM EDT Spoke with patient regarding these results and she voiced understanding. Patient then asked what wewere going to do about her overactive gallbladder? Asked patient if that was something she was recently diagnosed with/ She stated someone else had called her about those results earlier today. Advised her would forward to Dr Ronquillo and would have him address this upon his return on 08/26/24. She stated that would be fine. Talita Preston LPN' * Telephone Encounter - Talita Preston LPN - 08/16/2024 3:22 PM EDT ----- Message from Tatiana Ronquillo MD sent at 08/16/2024 12:43 PM EDT ----- MRI of the liver shows multiple liver cysts without concerning masses and signs of fatty liver disease. Liver cysts are benign. Recommend healthy diet and exercise to promote weight loss to improve fatty liver. documented in this encounterFirelands [facility]04-01-2025 Telephone encounter Note * Telephone Encounter - Tatiana Ronquillo MD - 08/27/2024 8:55 PM EDT Per her HIDA scan result note, I do not believe her gallbladder would be cause for her pain and would not recommend anything further for overactive GB. [facility]03-21-2025 Telephone encounter Note* Telephone Encounter - Talita Preston LPN - 08/16/2024 3:26 PM EDT Spoke with patient regarding these results and she voiced understanding. Patient then asked what wewere going to do about her overactive gallbladder? Asked patient if that was something she was recently diagnosed with/ She stated someone else had called her about those results earlier today. Advised her would forward to Dr Ronquillo and would have him address this upon his return on 08/26/24. She stated that would be fine. Talita Preston LPN' [facility]03-21-2025 Telephone encounter Note* Telephone Encounter - Talita Preston LPN - 08/16/2024 3:22 PM EDT ----- Message from Tatiana Ronquillo MD sent at 08/16/2024 12:43 PM EDT ----- MRI of the liver shows multiple liver cysts without concerning masses and signs of fatty liver disease. Liver cysts are benign. Recommend healthy diet and exercise to promote weight loss to improve fatty liver. [facility]03-17-2025 Telephone encounter Note* Telephone Encounter - Radha Mcnamara MA - 08/12/2024 2:10 PM EDT Pt notified of results via [employer]. Radha Mcnamara Ma [facility]03-17-2025 Telephone encounter Note* Telephone Encounter - Radha Mcnamara MA - 08/12/2024 2:10 PM EDT ----- Message from Tatiana Ronquillo MD sent at 08/12/2024 1:01 PM EDT ----- FOBT negative. Repeat in 1 year to screen for colon cancer. [facility]03-17-2025 Miscellaneous Notes* Telephone Encounter - Radha Mcnamara MA - 08/12/2024 2:10 PM EDT Pt notified of results via [employer]. Radha Mcnamara Ma * Telephone Encounter - Radha Mcnamara MA - 08/12/2024 2:10 PM EDT ----- Message from Tatiana Ronquillo MD sent at 08/12/2024 1:01 PM EDT ----- FOBT negative. Repeat in 1 year to screen for colon cancer. documented in this encounterFirelands [facility]03-17-2025 History of Present illness Narrative* Nilson Golden, RT(R) - 08/12/2024 1:00 PM EDT Radiology Service Progress Note DATE OF SERVICE: August 12, 2024 TIME: 1:54 PM PATIENT IDENTITY VERIFICATION COMPLETED USING TWO (2) STANDARD IDENTIFIERS: Name and Date of confirmed by patient verbally. FALL SCREENING: Has the patient had 2 falls in the last year or 1 fall with injury or currently using an Ambulatory Assistive Device (Walker, Cane, Wheelchair, Crutches, etc.)? No PATIENT GENDER DATA: Assigned female at . status: status: NO. PATIENT RELEVANT IMPLANT DATA REVIEWED: Yes PATIENT PRESENTS WITH AN IMPLANTABLE OR ATTACHED COMPUTER OPERATIONS SUPERVISOR: No ALLERGIES: Reviewed and unchanged CONTRAST ALLERGY: NO. EXAM: MRI - CONTRAST TYPE: GROUP II PERIPHERAL IV DATA: Ambulatory: A peripheral IV was started in the Left antecubital site with a Angio cath: 22 gauge. RADIOLOGY DEPARTMENT: MR; Exam(s) Completed: Body: Liver (routine) SIGNATURE: RT Leigh Ann(R) PATIENT NAME: Temitope Haddad DATE: August 12, 2024 TIME: 1:54 PM documented in this encounterFirelands [facility]03-17-2025 NoteHNO ID: [id number] Author: NILSON GOLDEN RT(R) Service: ? Author Type: Technologist Type: Progress Notes Filed: 08/12/2024 13:54 Note Text: Radiology Service Progress Note DATE OF SERVICE: August 12, 2024 TIME: 1:54 PM PATIENT IDENTITY VERIFICATION COMPLETED USING TWO (2) STANDARD IDENTIFIERS: Name and Date of confirmed by patient verbally. FALL SCREENING: Has the patient had 2 falls in the last year or 1 fall with injury or currently using an Ambulatory Assistive Device (Walker, Cane, Wheelchair, Crutches, etc.)? No PATIENT GENDER DATA: Assigned female at . status: status: NO. PATIENT RELEVANT IMPLANT DATA REVIEWED: Yes PATIENT PRESENTS WITH AN IMPLANTABLE OR ATTACHED COMPUTER OPERATIONS SUPERVISOR: No ALLERGIES: Reviewed and unchanged CONTRAST ALLERGY: NO. EXAM: MRI - CONTRAST TYPE: GROUP II PERIPHERAL IV DATA: Ambulatory: A peripheral IV was started in the Left antecubital site with a Angio cath: 22 gauge. RADIOLOGY DEPARTMENT: MR; Exam(s) Completed: Body: Liver (routine) SIGNATURE: RT Leigh Ann(R) PATIENT NAME: Temitope Haddad DATE: August 12, 2024 TIME: 1:54 [facility]03-13-2025 History of Present illness Narrative* Darlyn Haddad RT(R) - 08/08/2024 1:00 PM EDT RADIOLOGY SERVICE PROGRESS NOTE SERVICE DATE: 08/08/2024 SERVICE TIME: 12:55 PM PATIENT IDENTITY VERIFICATION COMPLETED USING TWO (2) STANDARD IDENTIFIERS: Name and Date of confirmed by patient verbally FALL SCREENING: Has the patient had 2 falls in the last year or 1 fall with injury or currently using an Ambulatory Assistive Device (Walker, Cane, Wheelchair, Crutches, etc.)? Yes, Patient High Riskfor Falls What interventions were put in place to prevent falls during this visit? Instructed Patient to Callfor Help if Needed, Offered Assistance with Transfers/Clothing, Instructed Patient to Remain Seated(Not on Exam Table) Until Exam, Increased Observations by Caregivers, and Escorted to/from Restroom PATIENT GENDER DATA: .female : No ALLERGIES: Reviewed and unchanged MEDICATIONS REVIEWED: No PATIENT RELEVANT IMPLANT DATA REVIEWED: Not Applicable PATIENT PRESENTS WITH AN IMPLANTABLE OR ATTACHED COMPUTER OPERATIONS SUPERVISOR: n/a CREATININE: Creatinine Date Value Ref Range Status 04/29/2024 0.94 0.58 - 0.96 mg/dL Final 02/20/2024 1.07 (H) 0.58 - 0.96 mg/dL Final 10/25/2023 1.07 (H) 0.58 - 0.96 mg/dL Final Estimated Glomerular Filtration Rate Date Value Ref Range Status 04/29/2024 69 >=60 mL/min/1.73m Final Comment: Estimated Glomerular Filtration Rate (eGFR) is calculated using the 2020 CKD-EPI creatinine equation. This equation utilizes serum creatinine, sex, and age as parameters. The creatinine assay has traceable calibration to isotope dilution- mass spectrometry. Refer to KDIGO guidelines for clinical interpretation. In patients with unstable renal function, e.g. those with acute kidney injury, the eGFRmay not accurately reflect actual GFR. eGFR- Date Value Ref Range Status 02/15/2019 >60 Final P.O.C.T. RESULTS: N/A August 08, [address] PERFORMED: No IV SITE: Ambulatory: A peripheral IV was started in the Left antecubital site with a Angio cath: 24gauge. POST EXAM PIV STATUS: Discontinued PROCEDURE TYPE: NM INJECT: Hepatobiliary with Gallbladder EF. 5.5 mCi Tc99m CHOLETEC. CCK 1.58 micrograms intravenous at 14:13. ADMINISTRATION TIME: 13:10 PATIENT DISCHARGED TO: Ambulatory patient, left [place] department area. Is this a therapy: No A Diagnostic radioactive procedure has taken place, with no further precautions necessary other than routine body substance precautions. More information regarding radiation safety can be found usingthis link: [email or web address] SIGNATURE: SEDA Cheek) PATIENT NAME: Temitope Haddad DATE: August 08, 2024 TIME: 1:22 PM PAGER/CONTACT #: documented in this encounterFirelands [facility]03-13-2025 NoteHNO ID: [id number] Author: DARLYN HADDAD RT (R) Service: Nuclear Medicine Author Type: Technologist Type: Progress Notes Filed: 08/08/2024 15:03 Note Text: RADIOLOGY SERVICE PROGRESS NOTE SERVICE DATE: 08/08/2024 SERVICE TIME: 12:55 PM PATIENT IDENTITY VERIFICATION COMPLETED USING TWO (2) STANDARD IDENTIFIERS: Name and Date of confirmed by patient verbally FALL SCREENING: Has the patient had 2 falls in the last year or 1 fall with injury or currently using an Ambulatory Assistive Device (Walker, Cane, Wheelchair, Crutches, etc.)? Yes, Patient High Risk for Falls What interventions were put in place to prevent falls during this visit? Instructed Patient to Call for Help if Needed, Offered Assistance with Transfers/Clothing, Instructed Patient to Remain Seated (Not on Exam Table) Until Exam, Increased Observations by Caregivers, and Escorted to/from Restroom PATIENT GENDER DATA: .female : No ALLERGIES: Reviewed and unchanged MEDICATIONS REVIEWED: No PATIENT RELEVANT IMPLANT DATA REVIEWED: Not Applicable PATIENT PRESENTS WITH AN IMPLANTABLE OR ATTACHED COMPUTER OPERATIONS SUPERVISOR: n/a CREATININE: Creatinine Date Value Ref Range Status 04/29/2024 0.94 0.58 - 0.96 mg/dL Final 02/20/2024 1.07 (H) 0.58 - 0.96 mg/dL Final 10/25/2023 1.07 (H) 0.58 - 0.96 mg/dL Final Estimated Glomerular Filtration Rate Date Value Ref Range Status 04/29/2024 67 >=60 mL/min/1.73m? Final Comment: Estimated Glomerular Filtration [...] Status 02/15/2019 >60 Final P.O.C.T. RESULTS: N/A August 08, [address] PERFORMED: No IV SITE: Ambulatory: A peripheral IV was started in the Left antecubital site with a Angio cath: 24 gauge. POST EXAM PIV STATUS: Discontinued PROCEDURE TYPE: NM INJECT: Hepatobiliary with Gallbladder EF. 5.5 mCi Tc99m CHOLETEC. CCK 1.58 micrograms intravenous at 14:13. ADMINISTRATION TIME: 13:10 PATIENT DISCHARGED TO: Ambulatory patient, left NM department area. Is this a therapy: No A Diagnostic radioactive procedure has taken place, with no further precautions necessary other than routine body substance precautions. More information regarding radiation safety can be found using this link: [email or web address] SIGNATURE: RT Ham(R) PATIENT NAME: Temitope Haddad DATE: August 08, 2024 TIME: 1:22 PM PAGER/CONTACT #:[facility]03-11-2025 Instructions * Patient Instructions* Shavonne Donato APRN.MESSENGER COPY - 08/06/2024 1:31 PM EDT BLAND DIET If you are experiencing nausea or vomiting, you may want to try to eat some of the following foods. You May Eat: Well-cooked soft cereals Mashed potatoes Plain toast or bread, crackers Soup Plain Spaghetti Rice Macaroni (with cheese) Cottage Cheese Puddings Lowfat yogurts Lowfat Milk Vanilla ice milk Canned fruit (except pineapple) Very ripe bananas Apples without peels Plain meats (chicken, lean beef, turkey, fish-not fried) Cooked Vegetables (avoid gas formers like cabbage, beans and broccoli) Avoid dairy products if you are having diarrhea Do Not Eat: Chocolate Mustard Celery Peppermint Hot dogs Cabbage Pickles Hamburgers Fried foods Pastries Lunch meat Pizza Lettuce Potato chips, etc. Nuts, candies (or other concentrated sweets) Spicy or highly seasoned foods, i.e., Pepper, paprika, chili, tacos, garlic, onions documented in this encounterFirelands Regional Medical Center [facility]03-11-2025 NoteHNO ID: [id number] Author: SHAVONNE DONATO APRN.WILVER Service: ? Author Type: Nurse Practitioner Type: Progress Notes Filed: 08/06/2024 14:00 Note Text: 08/06/2024 Patient presents with: ED Follow-up: [facility] 07/30/2024 for abdominal pain SUBJECTIVE: This is a 69 year old that is here today for Above Complaints HOSPITAL/ER FOLLOW UP: Reason for visit: RUQ pain Which facility: [facility] Date of visit: 07/31/2024 Diagnosis: RUQ pain Testing done: CT ABD/PEL blood work urine sample Treatment given: pain and nausea medication Continues with intermittent RUQ pain. Described as aching. Aggravated with movement. Taking tylenol which helps some. Nausea at times. Taking prescribed mediations. Admits to darker stool which she contributes to eating a lot of oreos. Denies fevers, weight loss, constipation, diarrhea, hematochezia, hematemesis, or vomiting. Hospital records reviewed PAST MEDICAL HISTORY Diagnosis Date Abdominal pain, right lower quadrant Benign neoplasm of colon Chronic kidney disease (CKD), stage III (moderate) ([facility]) COPD (chronic obstructive pulmonary disease) ([facility]) Dr. Wallace Depression Dysuria Generalized anxiety disorder [...] x 4 Suprapubic pain Vitamin D deficiency ALLERGIES Fish, Morphine, Vicodin [Hydrocodone-Acetaminophen], Aggrenox [Aspirin-Dipyridamole], and Hydrocodone Bitartrate MEDICATIONS Current Outpatient Medications Medication Sig ondansetron orally disintegrating (ZOFRAN ODT) 4 mg disintegrating tablet 1 TABLET ORALLY EVERY 8 HOURS NEEDED NEEDED FOR NAUSEA levothyroxine (SYNTHROID) 75 mcg tablet Take 1 tablet by mouth once daily. atorvastatin (LIPITOR) 40 mg tablet Take 1 tablet by mouth daily at bedtime. For cholesterol. montelukast (SINGULAIR) 10 mg tablet Take 1 tablet by mouth daily at bedtime. citalopram hydrobromide (CELEXA) 10 mg tablet Take 1 tablet by mouth once daily. cholecalciferol (VITAMIN D3) 5,000 unit tab Take 1 tablet by mouth once daily. pantoprazole DR (PROTONIX) 40 mg tablet Take 1 tablet by mouth once daily. 30 minutes before eating. clopidogrel (PLAVIX) 75 mg tablet Take 1 tablet by mouth once daily. losartan (COZAAR) 25 mg tablet Take 1 tablet by mouth once daily. TRELEGY ELLIPTA 200-62.5-25 mcg inhalation powder Inhale 1 Puff as instructed once daily. alendronate (FOSAMAX) 70 mg tablet Take 1 tablet by mouth one time a week. Take with a full glass of water, on an empty stomach; do NOT lie down for 30minutes. (Patient not taking: Reported on 07/11/2024) MOTION SICKNESS RELIEF,MECLIZ, 25 mg chewable tablet(s) [...] No current facility-administered medications for this visit. Medications and allergies reviewed by this provider. SOCIAL HISTORY Social History Tobacco Use Smoking status: Former Current packs/day: 0.00 Average packs/day: 1.5 packs/day for 42.0 years (63.0 ttl pk-yrs) Types: Cigarettes Start date: 07/27/1978 Quit date: 07/27/2020 Years since quittin.0 Smokeless tobacco: Never Tobacco comments: d/c 07/27/2020 Vaping Use Vaping status: Never Used Substance Use Topics Alcohol use: No Drug use: No REVIEW OF SYSTEMS All other reviewed and negative other than HPI. OBJECTIVE: BP 152/90 Pulse 64 Resp 18 Wt 79 kg (174 lb 3.2 oz) SpO2 95% BMI 28.12 kg/m? . Vital signs reviewed by this provider. APPEARANCE Well appearing, alert, in no acute distress, well-hydrated, well nourished. EYES conjunctiva and sclera normal. HEART RRR with normal S1 and S2, no murmurs, no gallops, no JVD appreciated LUNG clear to auscultation. No wheezes, rhonchi or rales ABDOMEN bowel sounds normoactive, no bruits, soft, non-tender, non-distended. No rebound tenderness or guarding. Negative Gutierrez SKIN Skin color, texture, turgor normal, no suspicious rashes or lesions to exposed skin RSV Vaccine(1 - Risk 60-74 years 1-dose series) (more content not included)... [facility]03-11-2025 History of Present illness Narrative* Shavonne Donato APRN.MESSENGER COPY - 08/06/2024 1:21 PM EDT 08/06/2024 Patient presents with: ED Follow-up: [facility] 07/30/2024 for abdominal pain SUBJECTIVE: This is a 69 year old that is here today for Above Complaints HOSPITAL/ER FOLLOW UP: Reason for visit: RUQ pain Which facility: [facility] Date of visit: 07/31/2024 Diagnosis: RUQ pain Testing done: CT ABD/PEL blood work urine sample Treatment given: pain and nausea medication Continues with intermittent RUQ pain. Described as aching. Aggravated with movement. Taking tylenolwhich helps some. Nausea at times. Taking prescribed mediations. Admits to darker stool which she contributes to eating a lot of oreos. Denies fevers, weight loss, constipation, diarrhea, hematochezia, hematemesis, or vomiting. Hospital records reviewed PAST MEDICAL HISTORY Diagnosis Date Abdominal pain, right lower quadrant Benign neoplasm of colon Chronic kidney disease (CKD), stage III (moderate) ([facility]) COPD (chronic obstructive pulmonary disease) ([facility]) Dr. Wallace Depression Dysuria Generalized anxiety disorder [...] Left leg, managed by plastic surgery Stroke ([facility]) x 4 Suprapubic pain Vitamin D deficiency ALLERGIES Fish, Morphine, Vicodin [Hydrocodone-Acetaminophen], Aggrenox [Aspirin-Dipyridamole], andHydrocodone Bitartrate MEDICATIONS Current Outpatient Medications Medication Sig ondansetron orally disintegrating (ZOFRAN ODT) 4 mg disintegrating tablet 1 TABLET ORALLY EVERY 8 HOURS NEEDED NEEDED FOR NAUSEA levothyroxine (SYNTHROID) 75 mcg tablet Take 1 tablet by mouth once daily. atorvastatin (LIPITOR) 40 mg tablet Take 1 tablet by mouth daily at bedtime. For cholesterol. montelukast (SINGULAIR) 10 mg tablet Take 1 tablet by mouth daily at bedtime. citalopram hydrobromide (CELEXA) 10 mg tablet Take 1 tablet by mouth once daily. cholecalciferol (VITAMIN D3) 5,000 unit tab Take 1 tablet by mouth once daily. pantoprazole DR (PROTONIX) 40 mg tablet Take 1 tablet by mouth once daily. 30 minutes before eating. clopidogrel (PLAVIX) 75 mg tablet Take 1 tablet by mouth once daily. losartan (COZAAR) 25 mg tablet Take 1 tablet by mouth once daily. TRELEGY ELLIPTA 200-62.5-25 mcg inhalation powder Inhale 1 Puff as instructed once daily. alendronate (FOSAMAX) 70 mg tablet Take 1 tablet by mouth one time a week. Take with a full glass of water, on an empty stomach; do NOT lie down for 30minutes. (Patient not taking: Reported on 07/11/2024) MOTION SICKNESS RELIEF,MECLIZ, 25 mg chewable tablet(s) Take 1 tablet by mouth three times a day asneeded for dizziness. citalopram hydrobromide (CELEXA) 10 mg [...] No current facility-administered medications for this visit. Medications and allergies reviewed by this provider. SOCIAL HISTORY Social History Tobacco Use Smoking status: Former Current packs/day: 0.00 Average packs/day: 1.5 packs/day for 42.0 years (63.0 ttl pk-yrs) Types: Cigarettes Start date: 07/27/1978 Quit date: 07/27/2020 Years since quittin.0 Smokeless tobacco: Never Tobacco comments: d/c 07/27/2020 Vaping Use Vaping status: Never Used Substance Use Topics Alcohol use: No Drug use: No REVIEW OF SYSTEMS All other reviewed and negative other than HPI. OBJECTIVE: BP 152/90 Pulse 64 Resp 18 Wt 79 kg (174 lb 3.2 oz) SpO2 95% BMI 28.12 kg/m . Vital signsreviewed by this provider. APPEARANCE Well appearing, alert, in no acute distress, well-hydrated, well nourished. EYES conjunctiva and sclera normal. HEART RRR with normal S1 and S2, no murmurs, no gallops, no JVD appreciated LUNG clear to auscultation. No wheezes, rhonchi or rales ABDOMEN bowel sounds normoactive, no bruits, soft, non-tender, non-distended. No rebound tendernessor guarding. Negative Gutierrez SKIN Skin color, texture, turgor normal, no suspicious rashes or lesions to exposed skin RSV Vaccine(1 - Risk 60-74 years 1-dose series) Never done Shingrix Vaccine(2 of 2) due on 05/26/2020 Mammogram Screening due on 02/24/2024 Lung Cancer Screening due on 03/14/2024 Advance Directive Discussion Never done Spirometry due on 10/24/2024 Influenza Vaccine(1) due on 11/25/2024 Covid-19 Vaccine(3 - season) due on 04/29/2025 DTaP,Tdap,Td Vaccine(1 [...] Discontinued Hepatitis C Screening Discontinued ASSESSMENT/PLAN: 1. RUQ pain - ICD9: 789.01, ICD10: R10.11 (primary diagnosis) - consider gallbladder vs reflux vs unknown - no red flag symptoms or exam findings - recommend bland diet- handout on diet provided - red flag symptoms discussed, verbalizes understanding - NM HEPATOBILIARY W EF AND/OR RX - follow-up pending testing to ER with red flag symptoms 2. Nausea - ICD9: 787.02, ICD10: R11.0 - plan as in #1 - ONDANSETRON 4 MG DISINTEGRATING TABLET - NM HEPATOBILIARY W EF AND/OR RX 3. Dark stools - ICD9: 792.1, ICD10: R19.5 - IMMUNOCHEMICAL FECAL OCCULT BLOOD TEST 4. Hepatic cyst - ICD9: 573.8, ICD10: K76.89 - CT AB/PEL showed multiple hepatic cysts as well as 1.8 cm ill defines hypoechoic lesion- MRI recommended - MRI LIVER WO/W IVCON - IV CONTRAST (RADIOLOGY PROCEDURE) - NOT ON MAR - follow-up pending MRI Shavonne Suarezlogvickie, IN HOME SALES CONSULTANT.MESSENGER COPY Prescription instructions reviewed with patient as applicable. Patient advised if symptoms do not improve or if symptoms worsen sooner, to contact their primary care physician. Potential red flag symptoms discussed with the patient. Reviewed appropriate action plan to take if red flag symptoms occur. Patient agreeable to treatment plan. Medical Decision Making: Problems: Moderate: New problem with uncertain prognosis Data: Unique test(s) ordered: 3+ Medical Decision Making Level: 4 - Moderate documented in this encounterFirelands [facility]03-04-2025 Telephone encounter Note * Telephone Encounter - Marii Wilson LPN - 07/30/2024 2:40 PM EST Pt called for a refill of levothyroxine 75 mcg. Medication was increased on 05/01 after lab results.Pt was advised to get lab rechecked in 2 months. Pt has not done that. Pt reports she will come in today to get lab done. Pt reports she did not have any medication to take today. REfill is pending on lab results. Marii Wilson LPN [facility]03-04-2025 Miscellaneous Notes* Telephone Encounter - Marii Wilson LPN - 07/30/2024 2:40 PM EST Pt called for a refill of levothyroxine 75 mcg. Medication was increased on 05/01 after lab results.Pt was advised to get lab rechecked in 2 months. Pt has not done that. Pt reports she will come in today to get lab done. Pt reports she did not have any medication to take today. REfill is pending on lab results. Marii Wilson LPN documented in this encounterFirelands Regional Medical [facility]02-24-2025 Telephone encounter Note * Telephone Encounter - Tali Josue - 07/22/2024 6:55 PM EST Patient has been identified by name and date of : Yes, Provider Shima Date 07/22/24 Time 6:55 Patient phones for refill(s): atorvastatin (LIPITOR) 40 mg tablet , montelukast (SINGULAIR) 10 mg tablet Requested Prescriptions No prescriptions requested or ordered in this encounter Date of last office visit in primary care: 07/11/2024 Date of next office visit in primary care: 11/18/2024 Please advise. Thank you. Josue Cesar. [facility]02-24-2025 Miscellaneous Notes* Telephone Encounter - Josue Cesar - 07/22/2024 6:55 PM EST Patient has been identified by name and date of : Yes, Provider Shima Date 07/22/24 Time 6:55 Patient phones for refill(s): atorvastatin (LIPITOR) 40 mg tablet , montelukast (SINGULAIR) 10 mg tablet Requested Prescriptions No prescriptions requested or ordered in this encounter Date of last office visit in primary care: 07/11/2024 Date of next office visit in primary care: 11/18/2024 Please advise. Thank you. Josue Cesar. documented in this encounterFirelands Regional Medical [facility]02-14-2025 Telephone encounter Note * Telephone Encounter - Rosaura Tristan MA - 07/12/2024 9:17 AM EST Pt called and notified of results and that Rx has been sent into the Pharmacy for her. Pt verbalized understanding. Rosaura Tristan MA [facility]02-14-2025 Miscellaneous Notes* Telephone Encounter - Rosaura Tristan MA - 07/12/2024 9:17 AM EST Pt called and notified of results and that Rx has been sent into the Pharmacy for her. Pt verbalized understanding. Rosaura Tristan MA * Telephone Encounter - Jennifer Sierra APRN.MESSENGER COPY - 07/12/2024 8:05 AM EST Please let her know that her testing is positive for influenza A. She saw Moraima yesterday and she left me a note that Temitope would like Tamiflu if her testing was positive. I just sent this to [facility] for her. The following approved medication requests have been transmitted electronically. Requested Prescriptions Signed Prescriptions Disp Refills oseltamivir (TAMIFLU) 75 mg capsule 10 capsule 0 Sig: Take 1 capsule by mouth two times a day for 5 days. Jennifer Sierra APRN.CNP documented in this encounterFirelands Regional Medical [facility]02-14-2025 Telephone encounter Note * Telephone Encounter - Jennifer Sierra APRN.CNP - 07/12/2024 8:05 AM EST Please let her know that her testing is positive for influenza A. She saw Moraima yesterday and she left me a note that Temitope would like Tamiflu if her testing was positive. I just sent this to [facility] for her. The following approved medication requests have been transmitted electronically. Requested Prescriptions Signed Prescriptions Disp Refills oseltamivir (TAMIFLU) 75 mg capsule 10 capsule 0 Sig: Take 1 capsule by mouth two times a day for 5 days. Jennifer Sierra APRN.CNP [facility]02-13-2025 [id number] (AGENT OF COVID-19) RNA: Not detected INFLUENZA A RNA: Detected INFLUENZA B RNA: Not detected RESPIRATORY SYNCYTIAL VIRUS (RSV) RNA: Not detectedSelect Medical Specialty Hospital - CincinnatiComment on above:Performed By: #### [id number] ####[facility] LABCLIA [id number] [address] [id number] History of Present illness Narrative* Moraima Solano APRN.CNP - 07/11/2024 11:20 AM EST Chief Complaint Patient presents with: congestion, runny [...] Chronic kidney disease (CKD), stage III (moderate) ([facility]) COPD (chronic obstructive pulmonary disease) ([facility]) Dr. Wallace Depression Dysuria Generalized anxiety disorder [...] tablet by mouth three times a day asneeded for dizziness. citalopram hydrobromide (CELEXA) 10 mg [...] Covid-19 Vaccine(3 - season) due on 04/29/2025 DTaP,Tdap,Td Vaccine(1 [...] agreeable to treatment plan. Moraima Pope APRN.CNP [address] [place] [address] documented in this encounterFirelands Regional Medical [facility]02-13-2025 NoteHNO ID: [id number] Author: MORAIMA SOLANO APRN.CNP Service: ? Author [...] Chronic kidney disease (CKD), stage III (moderate) ([facility]) COPD (chronic obstructive pulmonary disease) ([facility]) Dr. Wallace Depression Dysuria Generalized anxiety disorder [...] Left leg, managed by plastic surgery Stroke ([facility]) x 4 Suprapubic pain Vitamin D deficiency [...] by mouth once daily (more content not included)...[facility]02-04-2025 History of Present illness Narrative* Yamile Cordero, PT - 07/02/2024 2:36 PM EST Program_ID:[id number] Access Code: [email or web address] URL: [email or web address] Date: 07-02-2024 Prepared By: Robin Gaffney Program Notes Exercises - Gastroc Stretch [...] weekly - 2 sets - 15 reps * Yamile Cordero PT - 07/02/2024 2:01 PM EST Images from the original note were not [...] updated on 06/05/2024 Goals updated on 07/02/2024. [place] in home exercise program. -- MET Patient [...] lower extremity strength. -- MET Patient Goals: "Get my knee to work". -- MET SUBJECTIVE: Denies pain. Eager to lose weight, has a goal of 150 pounds. All things are going well,only gets SOB due to COPD.. Patient Goals: "Get my knee to work". Pain: Pain Pain Level: 0 Pain Location: [...] Degrees LE Strength L Knee Extension (L3): 5/ Functional Performance Test Results 5 Times Sit [...] 1438 Yamile Cordero PT documented in this encounterFirelands Regional Medical [facility]02-04-2025 NoteHNO ID: [id number] Author: YAMILE CORDERO PT Service: ? Author [...] updated on 06/05/2024 Goals updated on 07/02/2024. [place] in home exercise program. -- MET Patient [...] lower extremity strength. -- MET Patient Goals: "Get my knee to work". -- MET SUBJECTIVE: Denies pain. Eager to lose weight, has a goal of 150 pounds. All things are going well, only gets SOB due to COPD.. Patient Goals: "Get my knee to work". Pain: Pain Pain Level: 0 Pain Location: [...] Session Stop Time : 1438 Yamile Cordero [facility]01-28-2025 History of Present illness Narrative* Yamile Cordero, PT - 2024 3:17 PM EST Program_ID:[id number] Access Code: [email or web address] URL: [email or web address] Date: 2024 Prepared By: Robin Gaffney Program Notes Exercises - Gastroc Stretch [...] weekly - 2 sets - 15 reps * Yamile Cordero, PT - 2024 2:47 PM EST Episode Visit Count: 5 Therapist That Will [...] ongoing skilled physical therapy to progress toward setgoals. PLAN FOR NEXT VISIT: assess symptom response to standing hip strengthening SUBJECTIVE: Pt. reports no pain. Continues to do yoga movements without difficullthy. Patient Goals: "Get my knee to work". Functional Limitations: walking in the house, standing, [...] exercises in regards to decreasing fatigue , includingbalance, increase ease of ADL, and ROM and [...] 1530 Yamile Cordero PT documented in this encounterFirelands Regional Medical [facility]01-28-2025 NoteHNO ID: [id number] Author: YAMILE CORDERO, PT Service: ? Author [...] do yoga movements without difficullthy. Patient Goals: "Get my knee to work". Functional Limitations: walking in the house, standing, [...] 1450 Session Stop Time : 1530 Yamile Cordero, [facility]01-21-2025 History of Present illness Narrative* Yamile Cordero, PT - 06/18/2024 3:15 PM EST Program_ID:[id number] Access Code: [email or web address] URL: [email or web address] Date: 06-18-2024 Prepared By: Robin Gaffney Program Notes Exercises - Gastroc Stretch on Wall - 2 x daily - 7 x weekly - 1 sets - 3 reps - Seated Hamstring Stretch - 2 x daily - 7 x weekly - 1 sets - 3 reps - Supine Knee Extension Strengthening - 2 x daily - 7 x weekly - 3 sets - 8 reps * Yamile Cordero, PT - 06/18/2024 2:27 PM EST Episode Visit Count: 4 Therapist That Will [...] any UE support to complete with the exceptionof 1-2x LOB with PT assist. . The patient will continue to benefit from ongoing skilled physical therapy to progress toward set goals. PLAN FOR NEXT VISIT: add hip ER and abd strengthening to HEP SUBJECTIVE: Pt. says she feels ok, denies falls since last visit. She has been doing yoga to help her knees and this has been effective. Patient Goals: "Get my knee to work". Functional Limitations: walking in the house, standing, [...] 1507 Yamile Cordero PT documented in this encounterFirelands Regional Medical Center [facility] Campus01-21-2025 NoteHNO ID: [id number] Author: YAMILE CORDERO, PT Service: ? Author [...] and this has been effective. Patient Goals: "Get my knee to work". Functional Limitations: walking in the house, standing, [...] Session Stop Time : 1507 Yamile Cordero [facility]01-14-2025 NoteHNO ID: [id number] Author: YAMILE CORDERO, PT Service: ? Author [...] due to the cold weather. Patient Goals: "Get my knee to work". Functional Limitations: walking in the house, standing, [...] without fall) 4: box stepping over x4 6" hurdles 6x CW and 6x CCW no UE support 5: lateral step over 6x6" hurdles no UE support 6: tilt board [...] Session Stop Time : 1516 Yamile Cordero, [facility]01-14-2025 History of Present illness Narrative* Yamile Cordero, PT - 06/11/2024 2:36 PM EST Episode Visit Count: 3 Therapist That Will [...] due to the cold weather. Patient Goals: "Get my knee to work". Functional Limitations: walking in the house, standing, [...] exercises in regards to decreasing fatigue , includingbalance, increase ease of ADL, and ROM and [...] without fall) 4: box stepping over x4 6" hurdles 6x CW and 6x CCW no UE support 5: lateral step over 6x6" hurdles no UE support 6: tilt board [...] 1516 Yamile Cordero PT documented in [place] encounterGina [place] [address]-09-2025 Telephone encounter Note * Telephone Encounter - Gerda Ziegler LPN - 06/06/2024 3:04 PM EST The patient has been identified by name [...] LPN June 06, 2024 3:04 PM = [facility]01-09-2025 Miscellaneous Notes* Telephone Encounter - Gerda Ziegler LPN - 06/06/2024 3:04 PM EST The patient has been identified by name [...] 2024 3:04 PM = documented in this encounterFirelands Regional Medical Center [facility] Campus01-08-2025 History of Present illness Narrative* Yamile Cordero, PT - 06/05/2024 3:13 PM EST Program_ID:[id number] Access Code: [email or web address] URL: [email or web address] Date: 06-05-2024 Prepared By: Robin Gaffney Program Notes Exercises - Gastroc Stretch on Wall - 2 x daily - 7 x weekly - 1 sets - 3 reps - Seated Hamstring Stretch - 2 x daily - 7 x weekly - 1 sets - 3 reps - Supine Knee Extension Strengthening - 2 x daily - 7 x weekly - 3 sets - 8 reps * Yamile Cordero, PT - 06/05/2024 2:56 PM EST Episode Visit Count: 2 Therapist That Will [...] the updated goals for this plan of careas noted below. Goals for Episode of Care: established 05/16/24 Goals updated on 06/05/2024. [place] in home exercise program. -- PROGRESSING Patient [...] lower extremity strength. -- PROGRESSING Patient Goals: "Get my knee to work". -- PROGRESSING Time Frame for Goals and Treatment : 07/15/24 Patient Goals: "Get my knee to work". Planned Interventions, Frequency, and Duration: 1x/week, 8 weeks Total Number of Visits Planned: 8 Patient to be seen for Therapeutic exercise (55651), Neuromuscular re-education (68393), Manual therapy (91039), Therapeutic activities (75646), Self-senior care management (35571), Gait Training (20824), Patient/Family/Caregiver Education PLAN FOR NEXT VISIT: continue quadriceps strengthening SUBJECTIVE: Transfer from [place]. Pt. presents with SC. Pt. fell 4x each year. Most recent fall february 2024. Has R medial knee pain. Rolling of the R ankle. She falls without warning. Has been usinga SC for a couple mo. Compliant with HEP and reports R knee pain with SLR. 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 Patient Goals: "Get my knee to work". Functional Limitations: walking in the house, standing, [...] ease of ADL, and ROM and function \\. Patient education as noted. Billing Therapeutic Exercise Treatment Minutes: 42 Skilled Treatment Time Minutes (timed and untimed codes): 42 Total Session Time (minutes): 42 Session Start Time : 1455 Session Stop Time : 153 Yamile Cordero PT documented in this encounterFirelands Regional Medical Center [facility] Campus01-08-2025 NoteHNO ID: [id number] Author: YAMILE CORDERO PT Service: ? Author [...] Care: established 05/16/24 Goals updated on 06/05/2024. [place] in home exercise program. -- PROGRESSING Patient [...] lower extremity strength. -- PROGRESSING Patient Goals: "Get my knee to work". -- PROGRESSING Time Frame for Goals and Treatment : 07/15/24 Patient Goals: "Get my knee to work". Planned Interventions, Frequency, and Duration: 1x/week, 8 weeks Total Number of Visits Planned: 8 Patient to be seen for Therapeutic exercise (43427), Neuromuscular re-education (55483), Manual therapy (05727), Therapeutic activities (18821), Self-senior care management (67693), Gait Training (69578), Patient/Family/Caregiver Education PLAN FOR NEXT VISIT: continue quadriceps strengthening SUBJECTIVE: Transfer from [place]. Pt. presents with SC. Pt. fell 4x [...] the face, UE, and LE.. Patient Goals: "Get my knee to work". Functional Limitations: walking in the house, standing, [...] Session Stop Time : 1537 Yamile Cordero [facility]12-23-2024 NoteHNO ID: [id number] Author: TATIANA RONQUILLO MD Service: ? Author [...] COPD (chronic obstructive pulmonary disease) (HCC) Dr. Wallace Depression Dysuria Generalized anxiety disorder [...] lie down for 30m (more content not included)...[facility]12-23-2024 History of Present illness Narrative* Tatiana Ronquillo MD - 05/20/2024 12:03 PM EST Chief Complaint Patient presents with: Follow Up: Routine-patient takes OTC PPI (omeprazole she thinks)and asking about getting Rx for med. HPI Temitope Haddad is a 68 year old female who presents here today for Above Complaints. Patient requesting rx for 40 mg omeprazole for her history of GERD. Symptoms well controlled on OTCdosage, but has become too expensive. Without medication, [...] COPD (chronic obstructive pulmonary disease) (HCC) Dr. Wallace Depression Dysuria Generalized anxiety disorder [...] tablet by mouth three times a day asneeded for dizziness. albuterol HFA (PROVENTIL HFA, VENTOLIN [...] Vaccine(1) due on 11/25/2024 Covid-19 Vaccine(3 - 2023- season) due on 04/29/2025 Annual PCP Team [...] Lymph 1.00 - 4.00 k/uL 0.99 (L) Fountain% % 9.0 Abs Fountain <0.87 k/uL 0.60 Eosin% % 1.2 Abs [...] diet Tatiana Ronquillo MD documented in this encounterFirelands Regional Medical Center South Campus12-19-2024 History of Present illness Narrative* Robin Gaffney PT DPT - 05/16/2024 3:21 PM EST Program_ID:[id number] Access Code: [email or web address] URL: [email or web address] Date: 05-16-2024 Prepared By: Robin Gaffney Program Notes Exercises - Gastroc Stretch on Wall - 1 x daily - 7 x weekly - 1 sets - 3 reps - Supine Active Straight Leg Raise - 1 x daily - 7 x weekly - 1 sets - 10 reps - Seated Hamstring Stretch - 1 x daily - 7 x weekly - 1 sets - 3 reps * Robin Gaffney PT, DPT - 05/16/2024 3:03 PM EST Episode Visit Count: 1 Therapist That Will Accept/Oversee The Plan Of Care: Robin Gaffney Start of Care Date: 05/16/24 Onset [...] stair negotiation, rising from a chair . Thepatient presents with impairments in gait, independence in exercise, overall function, posture, range of motion, strength, symptom management, and tissue tenderness. Patient did not complete the PROMIS (Patient Reported Outcome Measures Information System). Prognosis for therapy is Fair due to: multiple co- morbidities, chronic nature of impairments . Patient transfer care to [place] for the following reasons: Closer to home as does not appear to have neuro needs. The patient will benefit from skilled therapy services to meet the goals established for this plan of care as noted below. Goals for Episode of Care: established 05/16/24 [place] in home exercise program. Patient will decrease [...] in functional lower extremity strength. Patient Goals: "Get my knee to work". Time Frame for Goals and Treatment : 07/15/24 Planned Interventions, Frequency, and Duration: Current Frequency: 1x/week Duration: 8 weeks Total Number of Visits Planned: 8 Planned Treatment Interventions: Therapeutic exercise (58638), Neuromuscular re- education (76786), Manual therapy (68264), Therapeutic activities (22517), Self- senior care management (39313), Gait Training (39360), Patient/Family/Caregiver Education PLAN FOR NEXT VISIT: Transfer of care [place]. R LE strengthening and flexibility Patient demonstrates good understanding of plan of care and treatment. The above goals and plan of care were discussed and agreed upon by patient/family. Transfer of Care Due To: Closer to Home Patient transferring care to: [place] SUBJECTIVE: Pt with R leg gives out. Takes her down to the ground. Knee pain in same knee. Falling about 2 x per month. Going on since Jan 2024. Using cane now (was using a whlie back for CVA). Issue getting worse. Patient Goals: "Get my knee to work". Functional Limitations: walking in the house, standing, [...] : 1450 Session Stop Time : 1530 Robin Gaffney PT, DPT documented in this encounterFirelands Regional Medical Center South Campus12-19-2024 NoteHNO ID: [id number] Author: ROBIN GAFFNEY PT, DPT Service: ? Author Type: Physical Therapist Type: Progress Notes Filed: 05/16/2024 16:16 Note Text: Episode Visit Count: 1 Therapist That Will Accept/Oversee The Plan Of Care: Robin Gaffney Start of Care Date: 05/16/24 Onset [...] of impairments . Patient transfer care to [place] for the following reasons: Closer to home as does not appear to have neuro needs. The patient will benefit from skilled therapy services to meet the goals established for this plan of care as noted below. Goals for Episode of Care: established 05/16/24 [place] in home exercise program. Patient will decrease [...] in functional lower extremity strength. Patient Goals: "Get my knee to work". Time Frame for Goals and Treatment : 07/15/24 Planned Interventions, Frequency, and Duration: Current Frequency: 1x/week Duration: 8 weeks Total Number of Visits Planned: 8 Planned Treatment Interventions: Therapeutic exercise (28583), Neuromuscular re-education (49567), Manual therapy (76190), Therapeutic activities (74883), Self-senior care management (02165), Gait Training (70597), Patient/Family/Caregiver Education PLAN FOR NEXT VISIT: Transfer of care [place]. R LE strengthening and flexibility Patient demonstrates good understanding of plan of care and treatment. The above goals and plan of care were discussed and agreed upon by patient/family. Transfer of Care Due To: Closer to Home Patient transferring care to: [place] SUBJECTIVE: Pt with R leg gives out. Takes her down to the ground. Knee pain in same knee. Falling about 2 x per month. Going on since Jan 2024. Using cane now (was using a whlie back for CVA). Issue getting worse. Patient Goals: "Get my knee to work". Functional Limitations: walking in the house, standing, [...] LE Light Touch Sens (more content not included)...[id number] Note HNO ID: [id number] Author: OG RAYGOZA MA Service: ? Author Type: Landcare Officer Type: Progress Notes Filed: 05/08/2024 15:35 Note [...] already scheduled Updated appointment notes Navigation Signature: Og Raygoza MA May 08, 2024 12:19 [facility]12-11-2024 History of Present illness Narrative* Og Raygoza MA - 05/08/2024 12:19 PM EST POPULATION HEALTH NAVIGATION OUTREACH Action/FYI Topic Due [...] already scheduled Updated appointment notes Navigation Signature: Og Raygoza MA May 08, 2024 12:19 PM documented in this encounterFirelands Regional Medical Center South Campus12-11-2024 NotePatient Outreach (NETNAV) TEMITOPE HADDAD ([id number]) 1955 F T Date Time Provider Department 05/08/24 OG RAYGOZA NETNAV During your visit today, we recorded the following information about you: Og Ragyoza MA 05/08/2024 3:35 PM Signed POPULATION HEALTH [...] already scheduled Updated appointment notes Navigation Signature: Og Raygoza MA May 08, 2024 12:19 PM Allergies As of Date: 05/08/2024 Noted Allergy Reaction FISH 07/10/2012 7 - Swelling 12 - Shortness of Breath MORPHINE 10/11/2011 1 - Mental Status Change 14 - Other: See Comments VICODIN (HYDROCODONE-ACETAMINOPHE*10/11/2011 11 - Vomiting AGGRENOX (ASPIRIN-DIPYRIDAMOLE) 01/31/2023 14 - Other: See Comments Comments: Headache HYDROCODONE BITARTRATE 04/24/2019 14 - Other: See Comments Date Reviewed: 04/29/2024 Reviewed by: Talita Preston LPN - Fully Assessed Reason for Visit: Population Health Navigation Outreach [3910] Cmt[facility] [address] PCSA Prescriptions as of 05/08/2024 - levothyroxine [...] major depression (HCC) [F33.*10/25/2023 Encounter Status:Closed by OG RAYGOZA on 05/08/24[facility]12-05-2024 Telephone encounter Note* Telephone Encounter - Kavitha Kim LPN - 05/02/2024 9:34 AM EST Phoned patient left detailed message with results, notes from Dr Ronquillo on voicemail. [facility]12-05-2024 Miscellaneous Notes* Telephone Encounter - Kavitha Kim LPN - 05/02/2024 9:34 AM EST Phoned patient left detailed message with results, notes from Dr Ronquillo on voicemail. * Telephone Encounter - Kavitha Kim LPN - 05/02/2024 9:32 AM EST ----- Message from Tatiana Ronquillo MD sent at 05/02/2024 8:47 AM EST ----- Xray of the right knee is negative for fracture or dislocation. No signs of arthritis. Continue treatment as discussed. documented in this encounterFirelands Regional Medical Center [facility] Campus12-05-2024 Telephone encounter Note * Telephone Encounter - Kavitha Kim LPN - 05/02/2024 9:32 AM EST ----- Message from Tatiana Ronquillo MD sent at 05/02/2024 8:47 AM EST ----- Xray of the right knee is negative for fracture or dislocation. No signs of arthritis. Continue treatment as discussed. [facility]12-04-2024 Telephone encounter Note* Telephone Encounter - Yumiko Sarkar RN - 05/01/2024 9:55 AM EST Pt called and is notified of providers results and instructions. Pt voices understanding. Yumiko Sarkar RN [facility]12-04-2024 Miscellaneous Notes* Telephone Encounter - Yumiko Sarkar RN - 05/01/2024 9:55 AM EST Pt called and is notified of providers results and instructions. Pt voices understanding. Yumiko Sarkar RN * Telephone Encounter - Tatiana Ronquillo MD - 05/01/2024 9:44 AM EST New rx sent. Recheck TSH in 2 months as ordered. * Telephone Encounter - Gerda Ziegler LPN - 05/01/2024 9:38 AM EST Spoke with pt and information listed below given. Pt verbalizes understanding. Pt reports she is taking her thyroid medication daily. Please advise pt when new medication has been sent. Gerda Ziegler LPN * Telephone Encounter - Gerda Ziegler LPN - 05/01/2024 9:17 AM EST ----- Message from Tatiana Ronquillo MD sent at 05/01/2024 7:07 AM EST ----- Labs are unremarkable aside from high TSH. Please confirm with patient that she is taking her synthroid daily as prescribed. If so, would need to increase dosage. LFTs improved compared to labs 2 months ago. No change in regimen for this. documented in this encounterFirelands Regional Medical Center [facility] Campus12-04-2024 Telephone encounter Note * Telephone Encounter - Tatiana Ronquillo MD - 05/01/2024 9:44 AM EST New rx sent. Recheck TSH in 2 months as ordered. [facility]12-04-2024 Telephone encounter Note* Telephone Encounter - Gerda Ziegler LPN - 05/01/2024 9:38 AM EST Spoke with pt and information listed below given. Pt verbalizes understanding. Pt reports she is taking her thyroid medication daily. Please advise pt when new medication has been sent. Gerda Ziegler LPN [facility]12-04-2024 Telephone encounter Note* Telephone Encounter - Gerda Zielger LPN - 05/01/2024 9:17 AM EST ----- Message from Tatiana Ronquillo MD sent at 05/01/2024 7:07 AM EST ----- Labs are unremarkable aside from high TSH. Please confirm with patient that she is taking her synthroid daily as prescribed. If so, would need to increase dosage. LFTs improved compared to labs 2 months ago. No change in regimen for this. [facility]12-02-2024 History of Present illness Narrative* Faby Rivas, RT(R) - 04/29/2024 1:20 PM EST Radiology Service Progress Note PATIENT [...] PATIENT PRESENTS WITH AN IMPLANTABLE OR ATTACHED COMPUTER OPERATIONS SUPERVISOR: No RADIOLOGY DEPARTMENT: General X-ray: Exam(s) Completed: Lower Extremity X- Ray(s): Knee, AP / Lat / Tunne / Merchant Right and Wt. Bearing PERIPHERAL IV DATA: Not applicable SIGNED BY: RT Sindi(Rashida) April 29, 2024 1:06 PM documented in this encounterFirelands Regional Medical Center [facility]12-02-2024 NoteHNO ID: [id number] Author: FABY RIVAS RT(R) Service: Radiology Author [...] PATIENT PRESENTS WITH AN IMPLANTABLE OR ATTACHED COMPUTER OPERATIONS SUPERVISOR: No RADIOLOGY DEPARTMENT: General X-ray: Exam(s) Completed: Lower Extremity X-Ray(s): Knee, AP / Lat / Tunne / Merchant Right and Wt. Bearing PERIPHERAL IV DATA: Not applicable SIGNED BY: RT Sindi(Rashida) April 29, 2024 1:06 [facility]12-02-2024 NoteHNO ID: [id number] Author: TATIANA RONQUILLO MD Service: ? Author [...] Chronic kidney disease (CKD), stage III (moderate) ([facility]) COPD (chronic obstructive pulmonary disease) ([facility]) Dr. Wallace Depression Dysuria Generalized anxiety disorder [...] Left leg, managed by plastic surgery Stroke ([facility]) x 4 Suprapubic pain Vitamin D deficiency [...] LENS Bilateral 2013, 2014 SURGICAL ARTHROSCOPY ADAN W/RAE MEDINA RLS 09/10/2013 Left shoulder arthroscopic Sub AC [...] mg chewable ta (more content not included)... [facility]12-02-2024 History of Present illness Narrative* Tatiana Ronquillo MD - 04/29/2024 12:21 PM EST Chief Complaint Patient presents with: Fall HPI [...] history of stroke, but has not been compliant.Denies head injury or LOC with these falls, knee locking up or catching, swelling, erythema, bruising.Does not feel unsteady on her feet. Refusing vaccinations today. Due for routine labs. Past medical history, appointments, medications, allergies reviewed. Previous Medical History PAST MEDICAL HISTORY Diagnosis Date Abdominal pain, right lower quadrant Benign neoplasm of colon Chronic kidney disease (CKD), stage III (moderate) ([facility]) COPD (chronic obstructive pulmonary disease) ([facility]) Dr. Wallace Depression Dysuria Generalized anxiety disorder [...] tablet by mouth three times a day asneeded for dizziness. albuterol HFA (PROVENTIL HFA, VENTOLIN [...] Lymph 1.00 - 4.00 k/uL 0.99 (L) Fountain% % 9.0 Abs Fountain <0.87 k/uL 0.60 Eosin% % 1.2 Abs [...] and treatment. May use ice/heat, OTC tylenol PRNfor pain. Red flags for re-assessment reviewed with [...] HORMONE Tatiana Ronquillo MD documented in this encounterFirelands Regional Medical [facility]11-24-2024 Telephone encounter Note * Telephone Encounter - Paulo Sifuentes - 04/21/2024 10:31 AM EST Patient completed US on 04/19/2024 [facility]11-24-2024 Miscellaneous Notes* Telephone Encounter - Paulo Sifuentes - 04/21/2024 10:31 AM EST Patient completed US on 04/19/2024 * Telephone Encounter - Laura Ann - 04/19/2024 9:11 AM EST 1st attempt LVM to schedule US * Telephone Encounter - Savita Vidales MA - 04/18/2024 3:03 PM EST Patient informed and verbalized understanding. Sending to schedulers to assist in scheduling US that was ordered. Savita Vidales MA * Telephone Encounter - Sabine Crowley APRN.WILVER - 04/18/2024 2:46 PM EST Please let patient know their CT is negative for acute findings. I have ordered a US of the area. documented in this encounterFirelands Regional Medical Center [facility]11-22-2024 Telephone encounter Note * Telephone Encounter - Shavonne Donato APRN.CNP - 04/19/2024 2:11 PM EST Order placed for US RLQ. Shavonne Donato APRN.CNP [facility]11-22-2024 Miscellaneous Notes* Telephone Encounter - Shavonne Donato APRN.CNP - 04/19/2024 2:11 PM EST Order placed for US RLQ. Shavonne Donato APRN.CNP * Telephone Encounter - Theresa Sawant RDMS - 04/19/2024 1:38 PM EST May we please have ultrasound orders placed for mass RLQ. US Soft tissue Abdomen ([id number]) Pt. Is currently waiting in radiology. Thank you so much! Theresa documented in this encounterFirelands Regional Medical [facility]11-22-2024 History of Present illness Narrative* Theresa Sawant RDMS - 04/19/2024 1:45 PM EST Radiology Service Progress Note PATIENT [...] PATIENT PRESENTS WITH AN IMPLANTABLE OR ATTACHED COMPUTER OPERATIONS SUPERVISOR: No RADIOLOGY DEPARTMENT: Ultrasound PERIPHERAL IV DATA: Not applicable SIGNED BY: Theresa Sawant RDMS April 19, 2024 2:39 PM documented in this encounterFirelands Regional Medical [facility]11-22-2024 NoteHNO ID: [id number] Author: THERESA SAWANT RDMS Service: ? Author Type: Supervisor [employer] Type: Progress Notes Filed: 04/19/2024 14:39 Note [...] PATIENT PRESENTS WITH AN IMPLANTABLE OR ATTACHED COMPUTER OPERATIONS SUPERVISOR: No RADIOLOGY DEPARTMENT: Ultrasound PERIPHERAL IV DATA: Not applicable SIGNED BY: Theresa Sawant RDMS April 19, 2024 2:39 [facility]CSt[facility]11-[facility]24 Telephone encounter Note* Telephone Encounter - Theresa Sawant RDMS - 04/19/2024 1:38 PM EST May we please have ultrasound orders placed for mass RLQ. US Soft tissue Abdomen ([id number]) Pt. Is currently waiting in radiology. Thank you so much! Theresa [facility]11-22-2024 Telephone encounter Note* Telephone Encounter - Laura Ann - 04/19/2024 9:11 AM EST 1st attempt LVM to schedule US [facility]11-21-2024 Telephone encounter Note* Telephone Encounter - Savita Vidales MA - 04/18/2024 3:03 PM EST Patient informed and verbalized understanding. Sending to schedulers to assist in scheduling US that was ordered. Savita Vidales MA [facility]11-21-2024 Telephone encounter Note* Telephone Encounter - Sabine Crowley APRN.CNP - 04/18/2024 2:46 PM EST Please let patient know their CT is negative for acute findings. I have ordered a US of the area. [facility]11-21-2024 History of Present illness Narrative* Isaak Crowder, CT - 04/18/2024 2:00 PM EST Radiology Service Progress Note DATE OF SERVICE: [...] PATIENT PRESENTS WITH AN IMPLANTABLE OR ATTACHED COMPUTER OPERATIONS SUPERVISOR: No ALLERGIES: Reviewed and unchanged CONTRAST ALLERGY: [...] creatinine assay has traceable calibration to isotope dilution- mass spectrometry. Refer to KDIGO guidelines for clinical interpretation. In patients with unstable renal function, e.g. those with acute kidney injury, the eGFRmay not accurately reflect actual GFR. eGFR- Date Value Ref Range Status 02/15/2019 >60 Final P.O.C.T. RESULTS: N/A April 18, 2024 TREATMENT: N/A PERIPHERAL IV DATA: Ambulatory: A peripheral IV was started in the Left upper extremity antecubitalsite with a Angio cath: 22 gauge. RADIOLOGY DEPARTMENT: CT; Exam(s) Completed: Abdomen/Pelvis SIGNATURE: JHONATAN Langley PATIENT NAME: Temitope Haddad DATE: April 18, 2024 TIME: 1:23 PM documented in this encounterFirelands Regional Medical [facility]11-21-2024 NoteHNO ID: [id number] Author: ISAAK CROWDER CT Service: Radiology Author [...] PATIENT PRESENTS WITH AN IMPLANTABLE OR ATTACHED COMPUTER OPERATIONS SUPERVISOR: No ALLERGIES: Reviewed and unchanged CONTRAST ALLERGY: [...] Haddad DATE: April 18, 2024 TIME: 1:23 [facility]11-21-2024 NoteHNO ID: [id number] Author: SABINE CROWLEY APRN.MESSENGER COPY Service: ? Author Type: Nurse Practitioner Type: [...] COPD (chronic obstructive pulmonary disease) (HCC) Dr. Wallace Depression Dysuria Generalized anxiety disorder [...] HFA (PROVENTIL HFA, MOJGAN (more content not included)...[facility]11-21-2024 History of Present illness Narrative* Sabine Crowley APRN.[facility] - 04/18/2024 11:53 AM EST Chief Complaint Patient presents with: Mass: Lower abdomen X 1 week HPI Temitope Haddad is a 68 year old female who presents here today for Above Complaints.. Patient presents for 1 week history of lump to left lower abdomen just above groin. Patient reportsarea is tender but not red or discolored. Reports nausea. Denies fever, chills, diarrhea, vomiting.Pain is consistent and present all the time. Nothing improves pain, palpation and standing make pain worse. Past medical history, appointments, medications, allergies reviewed. Previous Medical History PAST MEDICAL HISTORY Diagnosis Date Abdominal pain, right lower quadrant Benign neoplasm of colon Chronic kidney disease (CKD), stage III (moderate) (HCC) COPD (chronic obstructive pulmonary disease) ([facility]) Dr. Wallace Depression Dysuria Generalized anxiety disorder [...] Left leg, managed by plastic surgery Stroke ([facility]) x 4 Suprapubic pain Vitamin D deficiency [...] tablet by mouth three times a day asneeded for dizziness. citalopram hydrobromide (CELEXA) 10 mg [...] be scheduled today, verbalized understanding. Sabine Crowley APRN.MESSENGER COPY documented in this encounterFirelands Regional Medical [facility]11-20-2024 Telephone encounter Note * Telephone Encounter - Sumaya Grubbs RN - 04/17/2024 2:31 PM EST Pt reports she has a lump in right groin, at hip line area, for about 1 week. Started out the size of a pea, and now is size of - a little bigger than a marble and feels hard. Tender. No reddness. Nosign of infection. Skin on top of lump is not discolored. No openings in pcp triad today or tomorrow. Scheduled appt with Laboratory Animal Facility Supervisor for tomorrow. [facility]11-20-2024 Miscellaneous Notes* Telephone Encounter - Sumaya Grubbs RN - 04/17/2024 2:31 PM EST Pt reports she has a lump in right groin, at hip line area, for about 1 week. Started out the size of a pea, and now is size of - a little bigger than a marble and feels hard. Tender. No reddness. Nosign of infection. Skin on top of lump is not discolored. No openings in pcp triad today or tomorrow. Scheduled appt with Laboratory Animal Facility Supervisor for tomorrow. documented in this encounterFirelands Regional [facility]11-15-2024 Telephone encounter Note * Telephone Encounter - Yasmin Jackson RN - 04/12/2024 2:59 PM EST The patient has been identified by name [...] Jackson RN April 12, 2024 3:00 PM [facility]11-15-2024 Miscellaneous Notes* Telephone Encounter - Yasmin Jackson RN - 04/12/2024 2:59 PM EST The patient has been identified by name [...] 12, 2024 3:00 PM documented in this encounterFire[facility]11-[facility] Telephone encounter Note * Telephone Encounter - Yasmin Jackson RN - 04/05/2024 2:50 PM EST The patient has been identified by name [...] Jackson RN April 05, 2024 2:51 PM [facility]11-08-2024 Miscellaneous Notes* Telephone Encounter - Yasmin Jackson RN - 04/05/2024 2:50 PM EST The patient has been identified by name [...] 05, 2024 2:51 PM documented in this encounterFirelands [facility]09-26-2024 Telephone encounter Note * Telephone Encounter - Fadumo Alvarado RN - 02/22/2024 11:32 AM EDT Patient notified of results and provider's instructions. Patient verbalizes understanding. Fadumo Alvarado RN [facility]09-26-2024 Miscellaneous Notes* Telephone Encounter - Fadumo Alvarado RN - 02/22/2024 11:32 AM EDT Patient notified of results and provider's instructions. Patient verbalizes understanding. Fadumo Alvarado RN * Telephone Encounter - Gerda Ziegler LPN - 02/22/2024 9:24 AM EDT Left a message for pt to call the office and ask to speak to a nurse. Gerda Ziegler LPN * Telephone Encounter - Tatiana Ronquillo MD - 02/22/2024 9:19 AM EDT Blood work negative for anemia or signs of acute infection. Inflammatory markers are still elevatedconsistent with her colitis. Kidney function stable in CKD stage IIIa range. LFTs mildly elevated. CT scan in the ER did not show any abnormality with liver or gallbladder. This may be related to her colitis. Avoid tylenol and alcohol. Recheck levels in 2-3 weeks. documented in this encounterFirelands [facility]09-26-2024 Telephone encounter Note * Telephone Encounter - Gerda Ziegler LPN - 02/22/2024 9:24 AM EDT Left a message for pt to call the office and ask to speak to a nurse. Gerda Ziegler LPN [facility]09-26-2024 Telephone encounter Note* Telephone Encounter - Tatiana Ronquillo MD - 02/22/2024 9:19 AM EDT Blood work negative for anemia or signs of acute infection. Inflammatory markers are still elevatedconsistent with her colitis. Kidney function stable in CKD stage IIIa range. LFTs mildly elevated. CT scan in the ER did not show any abnormality with liver or gallbladder. This may be related to her colitis. Avoid tylenol and alcohol. Recheck levels in 2-3 weeks. [facility]09-25-2024 Telephone encounter Note* Telephone Encounter - Ashlee Elliott LPN - 02/21/2024 12:17 PM EDT Patient notified and verbalized understanding. Ashlee Elliott LPN [facility]09-25-2024 Miscellaneous Notes* Telephone Encounter - Ashlee Elliott LPN - 02/21/2024 12:17 PM EDT Patient notified and verbalized understanding. Ashlee Elliott LPN * Telephone Encounter - Tatiana Ronquillo MD - 02/21/2024 11:47 AM EDT Rx sent for Lagevrio. Take as directed. Call with side effects. F/u in 1 week if symptoms not improving. Go to ER with high fever, sudden chest pain or SOB, dehydration or confusion. Molnupiravir Eligibility and Patient Discussion [facility] Formulary Restriction Criteria: Adult outpatients 18 years [...] whether the patient is based on the firstday of the last menstrual period in individuals [...] patient was also informed of the significant knownbenefits and potential risks of molnupiravir, and the [...] those alternatives. The patient was provided electronically withthe "Fact Sheet for Patients, Parents and Caregivers". The patient was also instructed that in addition to the treatment with molnupiravir, he/she should continue to self-isolate and use infection control measures (e.g., wear mask, isolate, social distance, avoid sharing personal items, clean and disinfect "high touch" surfaces, and frequent handwashing) according to CDC guidelines. The patient stated understanding and gave verbal consent to proceeding with molnupiravir treatment. Tatiana Ronquillo MD February 21, 2024 11:49 AM * Telephone Encounter - Yumiko Sarkar RN - 02/21/2024 11:45 AM EDT Pt called and is notified of providers results and instructions. Pt voices understanding. Per Pt request sent information to her [facility]. Pt would like provider to send medication in to [facility] in [facility]. Yumiko Sarkar RN * Telephone Encounter - Tatiana Ronquillo MD - 02/21/2024 7:27 AM EDT Patient is positive for COVID. Recommend rest, supportive care, and should isolate until: At least 24 hours have passed since lastfever without the use of fever-reducing medications and Symptoms (e.g., cough, shortness of breath)have improved. Should wear mask for at least [...] Please let me know. documented in this encounterFirelands [facility]09-25-2024 Telephone encounter Note * Telephone Encounter - Tatiana Ronquillo MD - 02/21/2024 11:47 AM EDT Rx sent for Lagevrio. Take as directed. Call with side effects. F/u in 1 week if symptoms not improving. Go to ER with high fever, sudden chest pain or SOB, dehydration or confusion. Molnupiravir Eligibility and Patient Discussion [facility] Formulary Restriction Criteria: Adult outpatients 18 years [...] whether the patient is based on the firstday of the last menstrual period in individuals [...] patient was also informed of the significant knownbenefits and potential risks of molnupiravir, and the [...] those alternatives. The patient was provided electronically withthe "Fact Sheet for Patients, Parents and Caregivers". The patient was also instructed that in addition to the treatment with molnupiravir, he/she should continue to self-isolate and use infection control measures (e.g., wear mask, isolate, social distance, avoid sharing personal items, clean and disinfect "high touch" surfaces, and frequent handwashing) according to CDC guidelines. The patient stated understanding and gave verbal consent to proceeding with molnupiravir treatment. Tatiana Ronquillo MD February 21, 2024 11:49 AM [facility]09-25-2024 Instructions* Patient Instructions* Tatiana Ronquillo MD - 02/21/2024 11:47 AM [...] if LAGEVRIO will harm your baby if youtake LAGEVRIO during . LAGEVRIO is not recommended for use in . LAGEVRIO has not been studied in . LAGEVRIO was studied in animals only. When LAGEVRIO was given to animals, LAGEVRIO caused harm to their unborn babies. You and your healthcare provider may decide that you should take LAGEVRIO during if thereare no other COVID-19 treatment options approved or [...] method of control (contraception) consistently and correctly duringtreatment with LAGEVRIO and for 4 days after the last dose of LAGEVRIO. Talk to your healthcare provider about reliable control methods. Before starting treatment with LAGEVRIO your healthcare provider may do a test to see if you are before starting treatment with LAGEVRIO. Tell your healthcare provider right away if you become or think you may be duringtreatment with LAGEVRIO. Registry: There is a registry for individuals who take LAGEVRIO during . The purpose of this program is to collect information about the health of you and your baby. If you are or become during treatment with LAGEVRIO, you are encouraged to reportyour use of LAGEVRIO during to this registry at [email or web address]://[email or web address] or . For individuals who are sexually active with partners who are able to become : It is not known if LAGEVRIO can affect sperm. While the risk is regarded as low, animal studies to fully assess the potential for LAGEVRIO to affect the babies of males treated with LAGEVRIO have notbeen completed. A reliable method of control (contraception) [...] COVID-19 treatment options approved or authorized by theFDA are not accessible or clinically appropriate. The U.S. Food and Drug Administration (FDA) has issued an Emergency Use Authorization (EUA) to makeLAGEVRIO available during the COVID-19 pandemic (for more details about an EUA please see What is an Emergency Use Authorization? at the end of this document). LAGEVRIO is not an FDA-approved medicine in the [place]. Read this Fact Sheet for information about LAGEVRIO. Talk to your healthcareprovider about your options if you have any questions. It is your choice to take LAGEVRIO. What is COVID-19? COVID-19 is caused by a virus called a coronavirus. You can get COVID-19 through close contact withanother person who has the virus. COVID-19 illnesses have ranged from very mlzk-ao-ciahgu, including illness resulting in . While information so far suggests that most COVID-19 illness is mild, serious illness can happen and maycause some of your other medical conditions to [...] use of LAGEVRIO for the treatment of mild- tomoderate COVID-19 in adults under an EUA. For [...] serious illnesses Take any medicines including prescription, msyw-joc-lomdrgd medicines, vitamins, and herbal products. How do [...] NG or OG that is size 12 [place] (FR) or larger. If you miss a dose of LAGEVRIO: If it has been less than 10 hours since the missed dose, take it as soon as you remember. If it has been more than 10 hours since the missed dose, skip the missed dose and take your dose atthe next scheduled time. Do not double the [...] tell you what size catheter tip syringe youwill need to take or give a dose of LAGEVRIO. Place the needed supplies on a clean work surface. Follow your healthcare provider s instructions on how to flush the NG or OG feeding tube. Flush theNG or OG feeding tube with 5 mL [...] contents and water well for 3 minutes. Thecapsule contents may not dissolve completely. Remove the [...] any capsule contents left in the container orcatheter tip syringe. Use the same catheter tip syringe to flush the NG or OG feeding tube 2 times with 5 mL of water (10mL total). Rinse the container, lid and catheter tip syringe well with clean water after use. Place on a cleanpaper towel until next use. What are the [...] to treat people with COVID-19. Go to https://www.fda.gov/ejtgprlln-hcgoxlmdrdwv-bjq-response/bpl-tvpywpluhanqzfx-pgj- policy-framework/hdzquromm-gnp-uiyorqjndputo for more information. It is your choice [...] to FDA MedWatch at www.fda.gov/medwatch or call 2-553-RBA-9181 (1834.965.8077). How should I store LAGEVRIO? Store LAGEVRIO capsules at room temperature between 68 F to 77 F (20 C to 25 C). Keep LAGEVRIO and all medicines out of the reach of children. How can I learn more about COVID-19? Ask your healthcare provider. Visit www.cdc.gov/COVID19 Contact your local or state public health department. Call [employer] at (toll free in the [place] Visit www.[employer] What Is an Emergency Use Authorization (EUA)? The [place] FDA has made LAGEVRIO available under an emergency access mechanism called an Emergency Use Authorization (EUA) The EUA is supported by a [place] of Health and Human Service ([facility])declaration that circumstances exist to justify emergency use of drugs and biological products during the COVID-19 pandemic. LAGEVRIO for the treatment of adults with a current diagnosis of igzy-zz-pdfdkpbc COVID-19 who are at high risk for progression to severe COVID- 19, including hospitalization or , and for whom [...] evidence available including data from adequate and well-controlledclinical trials, if available, it is reasonable to [...] be used under the EUA). Parth. for: [employer] [place] [address], [facility] For patent information: www.[employer]/research/patent Copyright [employer] [place], [place], [place] and its affiliates. All rights reserved. [id number] Revised: June 2022 documented in this encounterFirelands [facility]09-25-2024 Telephone encounter Note * Telephone Encounter - Yumiko Sarkar RN - 02/21/2024 11:45 AM EDT Pt called and is notified of providers results and instructions. Pt voices understanding. Per Pt request sent information to her [facility]. Pt would like provider [facility] [place] Yumiko Sarkar RN [facility]09-25-2024 Telephone encounter Note* Telephone Encounter - Tatiana Ronquillo MD - 02/21/2024 7:27 AM EDT Patient is positive for COVID. Recommend rest, supportive care, and should isolate until: At least 24 hours have passed since lastfever without the use of fever-reducing medications and Symptoms (e.g., cough, shortness of breath)have improved. Should wear mask for at least [...] in to pharmacy. Please let me know. [facility]09-24-[facility]24 History of Present illness Narrative* Tatiana Ronquillo MD - 02/20/2024 10:40 AM EDT Chief Complaint No chief complaint on file. HPI Temitope Haddad is a 68 year old female who presents here today for ER Follow Up.. Patient evaluated at [facility] ED on 02/10 for complaint of rectal bleeding x2 and suprapubic pain. Workupin the ER showed normal CBC and CMP [...] nasal congestion which started yesterday. Treating with surekha does help with symptoms. Feels different than [...] Chronic kidney disease (CKD), stage III (moderate) ([facility]) COPD (chronic obstructive pulmonary disease) ([facility]) Dr. Wallace Depression Dysuria Generalized anxiety disorder [...] breast biopsy- Dr. Logan COLONOSCOPY 2021 Dr. Friend-1 polyp removed COLONOSCOPY [...] tablet by mouth three times a day asneeded for dizziness. citalopram hydrobromide (CELEXA) 10 mg [...] Directive Discussion Never done Covid-19 Vaccine(3 - season) due on 01/28/2024 Influenza Vaccine(1) due [...] ROUTINE Tatiana Ronquillo MD documented in this encounterFirelands [facility]08-30-2024 Telephone encounter Note * Telephone Encounter - Yumiko Sarkar RN - 01/26/2024 3:33 PM EDT Pt called and is notified of providers results and instructions. Pt voices understanding. She states the swelling goes down over night, but when she gets back up the foot swells right back up, but itisn't painful. She states it's warm to the [...] down. Pt voices understanding. Yumiko Sarkar RN [facility]08-30-2024 Miscellaneous Notes* Telephone Encounter - Yumiko Sarkar RN - 01/26/2024 3:33 PM EDT Pt called and is notified of providers results and instructions. Pt voices understanding. She states the swelling goes down over night, but when she gets back up the foot swells right back up, but itisn't painful. She states it's warm to the [...] down. Pt voices understanding. Yumiko Sarkar RN * Telephone Encounter - Shavonne Donato APRN.CNP - 01/26/2024 1:[address] Ronquillo is out but yes it is negative. If her symptoms are not improving she will need office appointment. Shavonne Donato APRN.CNP * Telephone Encounter - Sumaya Grubbs RN - 01/26/2024 1:40 PM EDT Patient asking pcp to review and advise on recent US right leg done at [facility]. Did advise patient results show negative for DVT. documented in this encounterFirelands [facility]08-30-2024 Telephone encounter Note * Telephone Encounter - Shavonne Donato APRN.CNP - 01/26/2024 1:[address] Ronquillo is out but yes it is negative. If her symptoms are not improving she will need office appointment. Shavonne Donato APRN.CNP [facility]08-30-2024 Telephone encounter Note* Telephone Encounter - Sumaya Grubbs RN - 01/26/2024 1:40 PM EDT Patient asking pcp to review and advise on recent US right leg done at [facility]. Did advise patient results show negative for DVT. [facility]08-28-2024 History of Present illness Narrative* Og Raygoza MA - 01/24/2024 9:20 AM EDT POPULATION HEALTH NAVIGATION OUTREACH Action/ FYI LVM MYCHART ANNUAL MEDICARE WELLNESS EXAM BP CONTROLLED MAMMOGRAMS after 02-23-23 HCC CLOSURE Reason for Outreach Care Gap/HCC or Scheduling Wellness Visits Care Gaps due: Medicare Annual Wellness Visit Breast Cancer Screening Controlling Blood Pressure Patient Contacted: Unable or unnecessary to reach patient: Left message SoundRoadiehart message sent Navigation Signature: Og Raygoza MA January 24, 2024 9:20 AM documented in this encounterFirelands [facility]08-27-2024 History of Present illness Narrative* Sharron Chand RT(R) - 01/23/2024 5:00 PM EDT Radiology Service Progress Note PATIENT [...] PATIENT PRESENTS WITH AN IMPLANTABLE OR ATTACHED COMPUTER OPERATIONS SUPERVISOR: No RADIOLOGY DEPARTMENT: Ultrasound PERIPHERAL IV DATA: Not applicable SIGNED BY: Sharron Chand RDMS, RVT January 23, 2024 5:23 PM documented in this encounterFirelands Regional Medical [facility]08-27-2024 NoteHNO ID: [id number] Author: SHARRON CHAND RT(Rashida) Service: ? Author Type: Technologist Type: Progress [...] PATIENT PRESENTS WITH AN IMPLANTABLE OR ATTACHED COMPUTER OPERATIONS SUPERVISOR: No RADIOLOGY DEPARTMENT: Ultrasound PERIPHERAL IV DATA: Not applicable SIGNED BY: Sharron Chand RDMS, RVT January 23, 2024 5:23 [facility]08-26-2024 History of Present illness Narrative* Lena Aguilar APRN.CNP - 01/22/2024 5:41 PM EDT Patient came in with complaints of right calf pain and ankle pain. Patient says she was sleeping inher significant other heard a pop. Patient says [...] will take her now. documented in this encounterFirelands [facility]08-21-2024 Telephone encounter Note * Telephone Encounter - Carol Gunter - 01/17/2024 12:46 PM EDT Prescription Refill Information The patient has been [...] Carol Mena January 17, 2024 12:46 PM [facility]08-21-2024 Miscellaneous Notes* Telephone Encounter - Carol Gnuter - 01/17/2024 12:46 PM EDT Prescription Refill Information The patient has been [...] 17, 2024 12:46 PM documented in this encounterFirelands [facility]08-21-2024 Telephone encounter Note * Telephone Encounter - Sumaya Grubbs RN - 01/17/2024 11:20 AM EDT Left detailed vm on identified vm with provider's message below. [facility]08-21-2024 Miscellaneous Notes* Telephone Encounter - Sumaya Grubbs RN - 01/17/2024 11:20 AM EDT Left detailed vm on identified vm with provider's message below. * Telephone Encounter - Tatiana Ronquillo MD - 01/16/2024 1:34 PM EDT Insurance requesting 40 mg lipitor instead of two 20 mg pills. Rx sent. documented in this encounterFirelands [facility]08-20-2024 Telephone encounter Note * Telephone Encounter - Tatiana Ronquillo MD - 01/16/2024 1:34 PM EDT Insurance requesting 40 mg lipitor instead of two 20 mg pills. Rx sent. [facility]08-15-2024 Telephone encounter Note* Telephone Encounter - Karolina Mojica - 01/11/2024 2:18 PM EDT Prescription Refill Information The patient has been [...] Karolina Mena January 11, 2024 2:19 PM [facility]08-15-2024 Miscellaneous Notes* Telephone Encounter - Karolina Mojica - 01/11/2024 2:18 PM EDT Prescription Refill Information The patient has been [...] mouth daily at bedtime. For cholesterol. Karolina Karlei Mena January 11, 2024 2:19 PM documented in this encounterFirelands [facility]08-12-2024 Telephone encounter Note * Telephone Encounter - Evelyne Ingram LPN - 01/08/2024 1:43 PM EDT Pt calling requesting a refill of her Fosamax. Advised pt this was sent to pharm 11/24/23 Qty: 12 with 3 refills and this is enough refill for 1 year. Pt verbalizes understanding and will check with [facility] and contact office if any problems in refilling. Evelyne Ingram LPN [facility]08-12-2024 Miscellaneous Notes* Telephone Encounter - Evelyne Ingram LPN - 01/08/2024 1:43 PM EDT Pt calling requesting a refill of her Fosamax. Advised pt this was sent to pharm 11/24/23 Qty: 12 with 3 refills and this is enough refill for 1 year. Pt verbalizes understanding and will check with [facility] and contact office if any problems in refilling. Evelyne Ingram LPN documented in this encounterFirelands [facility] Medical [facility]06-27-2024 Telephone encounter Note * Telephone Encounter - Desirae Donis - 11/23/2023 3:07 PM EDT Patient has been identified by [...] 04/29/2024 Please advise. Thank you. Desirae Donis. [facility]06-27-2024 Miscellaneous Notes* Telephone Encounter - Desirae Donis - 11/23/2023 3:07 PM EDT Patient has been identified by [...] Thank you. Desirae Donis. documented in this encounterFirelands [facility]05-30-2024 Telephone encounter Note * Telephone Encounter - Talita Preston LPN - 10/26/2023 10:56 AM EDT reviewed results and recommendations with patient. Patient voiced understanding. Talita Preston LPN [facility]05-30-2024 Miscellaneous Notes* Telephone Encounter - Talita Preston LPN - 10/26/2023 10:56 AM EDT reviewed results and recommendations with patient. Patient voiced understanding. Talita Preston LPN * Telephone Encounter - Talita Preston LPN - 10/26/2023 10:55 AM EDT ----- Message from Tatiana Ronquillo MD sent at 10/26/2023 9:34 AM EDT ----- A1c remains borderline prediabetic range at 5.7. work on low carb diet and regular exercise. Recheck in 6 months. CKD stable. Recommend low sodium diet <2,000 mg per day, avoidance of NSAIDs, and increased water intake. Other labs normal. documented in this encounterFirelands [facility]05-30-2024 Telephone encounter Note * Telephone Encounter - Talita Presotn LPN - 10/26/2023 10:55 AM EDT ----- Message from Tatiana Ronquillo MD sent at 10/26/2023 9:34 AM EDT ----- A1c remains borderline prediabetic range at 5.7. work on low carb diet and regular exercise. Recheck in 6 months. CKD stable. Recommend low sodium diet <2,000 mg per day, avoidance of NSAIDs, and increased water intake. Other labs normal. [facility]05-29-[facility]24 History of Present illness Narrative* Tatiana Ronquillo MD - 10/25/2023 1:30 PM EDT Chief Complaint Patient presents with: 3 month follow up HPI Temitope Haddad is a 68 year old female who presents here today for Above Complaints. Patient complaining of seasonal allergies which started in August with nasal congestion, rhinorrhea,maxillary sinus pain/pressure, itchy/watery eyes, sneezing, occasional epistaxis [...] Chronic kidney disease (CKD), stage III (moderate) ([facility]) COPD (chronic obstructive pulmonary disease) ([facility]) Dr. Loev Depression Dysuria Generalized anxiety disorder GERD (gastroesophageal [...] Left leg, managed by plastic surgery Stroke ([facility]) x 4 Suprapubic pain Vitamin D deficiency [...] tablet by mouth three times a day asneeded for dizziness. citalopram hydrobromide (CELEXA) 10 mg [...] 65 Resp 16 Ht 167.6 cm (5' 6") Wt 77.1 kg (170 lb) BMI 27.44 [...] Abs Lymph 1.00 - 4.00 k/uL 1.05 Fountain% % 9.3 Abs Fountain <0.87 k/uL 0.43 Eosin% % 8.0 Abs [...] 17 CRP <0.9 mg/dL <0.3 Latest Ref Rng 01/26/2023 Total Cholesterol, Nonfasting <200 mg/dL 171 [...] Singulair and call if not improving in 1- 2 weeks. 2. Acute non-recurrent maxillary sinusitis - [...] PANEL Tatiana Ronquillo MD documented in this encounterFirelands Regional [facility]05-21-2024 Telephone encounter Note * Telephone Encounter - Lili Barillas - 10/17/2023 12:04 PM EDT Patient has been identified by [...] ORAL Please advise. Thank you. Lili Mena. [facility]05-21-2024 Miscellaneous Notes* Telephone Encounter - Lili Barillas - 10/17/2023 12:04 PM EDT Patient has been identified by [...] Route: ORAL Please advise. Thank you. Lili Peña Pss. documented in this encounterFirelands Regional Medical Center South Campus05-14-2024 History of Present illness Narrative* Kashmir Judge PT - 10/10/2023 10:43 AM EDT Episode Visit Count: 2 Therapist That Will [...] Testing Right Constanza-Hallpike: Asymptomatic, No nystagmus Left Frankton-Hallpike: Asymptomatic, No nystagmus TREATMENT: Canalith Repositionin: Frankton-Hallpike repeated B and results were explained to pt in detail. Pt was educated on Aravind Atkins self management of CRM for posterior canal. She was advised to only complete this if her symptoms return. She was provided with a handout on this self CRM and encouraged to call or send mychart message with any future questions or concerns. [...] 1033 Kashmir Judge PT documented in this encounterFirelands Regional Medical Center South Campus05-07-2024 History of Present illness Narrative* Kashmir Judge PT - 10/03/2023 5:16 PM EDT Episode Visit Count: 1 Therapist [...] response to therapy, good support system/ coping skills,current objective clinical presentation, good overall health status, [...] 6 Planned Treatment Interventions: Canalith Repositioning Maneuvers (71341), Therapeutic exercise (33706), Neuromuscular re-education (59451), Manual therapy (83707), Self-senior care management (56826),Therapeutic activities (33421), Patient/Family/Caregiver Education, Body Mechanics Training PLAN FOR [...] vertigo, spinning (room) Rating of current symptoms: /10 Frequency: Intermittent Duration: minutes Symptoms worsened by: rolling right, rolling left, supine to sit, bending, turning head quickly Symptoms improved by: being still, closing eyes, moving slow, avoiding triggers Imbalance: Yes Imbalance triggered by: Head movement Fall Assessment: No falls Nausea: yes Motion Sickness: Current Headache: Yes Description: sharp, pressure ("throbbing") Rating of current symptoms: /10 Location: parietal region Frequency: Intermittent Duration: minutes Symptoms worsened by: reading Symptoms improved by: (medication) Neck Symptoms: No Jaw Symptoms: No Ear Symptoms: Yes Description: ("ringing all the time") Rating of current symptoms: 02/05 Location: right [...] WITH LEVEL OF FUNCTION: Positional Testing Right Frankton-Hallpike: Symptomatic, Less than 60 seconds (nystagmus) Left Frankton-Hallpike: Symptomatic, No nystagmus, Less than 60 seconds Cervical Spine ROM Cervical ROM : (grossly WFL) Vitals BP: 128/78 Pulse: 69 Education: Education Learning Preferences: Demonstration, Explanation, Performance, Printed Materials Barriers: None Learning/educational needs: Procedure / Surgery, Plan of Care, Home exercise program, Posture, BodyMechanics Education Provided: Yes, see treatment interventions for [...] 1357 Kashmir Judge PT documented in this encounterFirelands Regional Medical Center South Campus05-03-2024 Discharge summary Author Rl Britt [facility] September 29, 2023 5:59pm Note Date/Time September 29, 2023 5:59pm [facility] Medical Records Department [address] [place] [address] Emergency Department Summary 09/29/23 MR#: [id number] Acct: [id number] Name: TEMITOPE HADDAD Rep #:[id number] : 1955 68 From: Rl Britt MD [...] because of a history of a stroke. [facility] Medical History Abdominal pain Abnormal Holter monitor finding Acute dysfunction of both eustachian tubes Acute seasonal allergic rhinitis Acute serous otitis media Ambulates with cane Anxiety Anxiety disorder Arthritis Atherosclerotic heart disease of [place] coronary artery without angina pectoris Bronchitis Bruising [...] 3RF Primary Care Provider: Bird Ronquillo Referrals: Bird Ronquillo MD [Primary Care Provider] - Activity [...] your Primary Care Provider. Call [facility] ([phone]) or report to the closest Emergency Room. Call 911 if necessary. 09/29/23 1759 <Electronically signed by Rl Britt MD> Cosigner Signature (if applicable): CC: Dr. Bird Ronquillo MD ~ Signed [facility] Work Phone: 1(121) 114-235805-03-2024 Hospital Discharge instructions Additional Instructions May spread hydrocortisone on the affected area 2-3 times daily as needed, also may try hot compresses 3 times daily over the weekend to see if that helps as well.[facility] Work Phone: 1(635) 758-628504-18-2024 Miscellaneous Notes* Telephone Encounter - Talita Preston LPN - 09/14/2023 9:48 AM EDT [...] and increased water intake. documented in this encounterFirelands Regional Medical Center South Campus04-15-2024 History of Present illness Narrative* Tatiana Ronquillo MD - 09/11/2023 4:21 PM EDT Chief Complaint Patient presents with: Dizziness: Continues/ with continuous ringing in right ear Refill Request: antivert HPI Temitope Haddad is a 68 year old female who presents here today for Above Complaints. Patient here today with complaint of vertigo which started over a month ago. Was evaluated in the [facility] ER on 08/13 for intermittent vertigo which [...] Chronic kidney disease (CKD), stage III (moderate) ([facility]) COPD (chronic obstructive pulmonary disease) ([facility]) Dr. Love Depression Dysuria Generalized anxiety disorder [...] Left leg, managed by plastic surgery Stroke ([facility]) x 4 Suprapubic pain Vitamin D deficiency [...] symmetric, Head Impulse Stim testing, Positive findings: Frankton Halpike to the right. Health Maintenance List [...] THERAPY Tatiana Ronquillo MD documented in this encounterFirelands Regional Medical Center South Campus04-13-2024 Miscellaneous Notes* Telephone Encounter - Tatiana Ronquillo MD - 09/09/2023 8:14 AM EDT Reviewed. * Telephone Encounter - Isidro Lipscomb MD - 09/06/2023 9:21 AM EDT FOLLOW UP ENDOSCOPY - RESULTS AND RECOMMENDATIONS NAME: Temitope Haddad CLINIC NO.: [id number] : 1955 DATE: September 06, 2023 PRIMARY [...] to the appropriate providers documented in this encounterFirelands Regional Medical Center South Campus04-12-2024 Miscellaneous Notes* Telephone Encounter - Yumiko Sarkar [...] [facility] If she is having new dizziness, needs OV for evaluation in 24 hours. Should go to the ER with persistent dizziness, severe headache, passing out, head injury, vision changes, slurred speech, or facial droop. * Telephone Encounter - Yumiko Sarkar RN - 09/07/2023 4:23 PM EDT Pt called with Michael a outside medical sales representative from [facility]. She said provider would need to send in a PA to get this medication covered for the Pt. Pt states she had received it from the hospital last time she was in because she was so dizzy. The [facility] provider line is [phone] incause the provider had any questions. She [...] you. Yumiko Sarkar RN. documented in this encounterFirelands Regional Medical Center South Campus04-08-2024 History and physical note * Isidro Lipscomb MD - 09/04/2023 2:00 PM EDT [...] can be found in the attached. SIGNATURE: Isidro Lipscomb MD PATIENT NAME: Temitope Haddad DATE: September 04, 2023 TIME: 1:16 PM Source Note - Isidro Lipscomb MD - 09/04/2023 2:00 PM EDT [...] Chronic kidney disease (CKD), stage III (moderate) ([facility]) COPD (chronic obstructive pulmonary disease) ([facility]) Dr. Love Depression Dysuria Generalized anxiety disorder [...] Left leg, managed by plastic surgery Stroke ([facility]) x 4 Suprapubic pain Vitamin D deficiency [...] entered by the nurse and reviewed by vt Nursing Notes: Margaret Diego RN 08/18/2023 2:32 [...] C (97 F), height 167.6 cm (5' 6"), aajfcb05.5 kg (166 lb 6.4 oz), SpO2 97%. [...] me after the testing has been completed. Isidro Lipscomb MD * Isidro Lipscomb MD - 09/04/2023 2:00 PM EDT Images from the original note were not included. HISTORY AND PHYSICAL Temitope Rios Haddad 1955 REFERRING PHYSICIAN: Tatiana Ronquillo,* CHIEF [...] entered by the nurse and reviewed by vt Nursing Notes: Margaret Diego RN 08/18/2023 2:32 [...] C (97 F), height 167.6 cm (5' 6"), .5 kg (166 lb 6.4 oz), SpO2 97%. [...] me after the testing has been completed. Isidro Lipscomb MD documented in this encounterFirelands Regional Medical Center South Campus04-05-2024 Miscellaneous Notes* Telephone Encounter - Paulo Jackson - 09/01/2023 12:51 PM EDT Images from the original note were not included. Contacted patient for pre-op GI phone call via either phone and or [employer]. Patient understands prep instructions, sent either Mychart and/or Mail. Understands where to report on the day of procedure. All questions answered and or sent to providers office for clarification. Patient understands [facility] arrival time could change and wait for their arrival time call from the facility the day before procedure.Patient understands must have a cross country truck driver and or responsible green party present. Patient was givendirect phone number to call ) if patient has any further questions or given the option to respond to [facility] [employer] message If one was sent . Please see the prep instructions below. The first set of instructions (Mirlalax/Dulcolax Bowel Prep) are over the counter medications that may be picked up at any pharmacy. The second set of instructions (Golytely) is by prescription only ordered by the ordering physicians office If you have any questions please contact the home health scheduler at [phone] or respond to this [employer] message. . Thank you, Paulo Mirlalax/Dulcolax Bowel Prep For this bowel preparation you will need to shredder picker the following medications at any pharmacy. Four (4) Dulcolax tablets (generic name Bisacodyl) 238 Gram (or 8.3 oz.) Bottle of Miralax (Generic name Polyethylene Glycol) A responsible family member or friend MUST be available to drive you home after your procedure. Youare NOT ALLOWED to drive, take a taxi, or leave the [facility] ALONE. If you do NOT have a responsible cross country truck driver (family member or friend) to take you home, your exam cannot be done with sedation and WILL BE cancelled. Please remove all jewelry if possible. The [facility] or [facility] (depending on where your procedure is [...] more Dulcolax tablets. Any questions please call [phone] or [phone] and ask for the general surgery nurses. [...] If you do NOT have a responsible cross country truck driver (family member or friend) to take you home, your exam cannot be done with sedation and WILL BE cancelled. Please remove all jewelry if possible. The [facility] or [facility] (depending on where your procedure is [...] till 6 hrs. prior to arrival for [facility]. documented in this encounterFirelands Regional Medical Center South Campus03-26-2024 Miscellaneous Notes* Telephone Encounter - Kavitha Kim LPN - 08/22/2023 1:03 PM EDT Patient returned call and said she is feeling better, taking the Meclizine rx. * Telephone Encounter - Talita Preston LPN - 08/15/2023 10:23 AM EDT Message left on secure VM for patient regarding scheduling ER follow up appointment in next 2-3 days with PCP. documented in this encounterFirelands Regional Medical Center South Campus03-25-2024 Telephone encounter Note * Telephone Encounter - Tran Smith - 08/21/2023 11:15 AM EDT Attempted to reach patient for sooner procedure date with Dr. Tolliver in [place] on 08/28/2023 or anotheralternative date. Left voicemail to call me directly at [phone] to discuss further Tran Smith Thread Roller [facility]03-25-2024 Miscellaneous Notes* Telephone Encounter - Tran Smith - 08/21/2023 11:15 AM EDT Attempted to reach patient for sooner procedure date with Dr. Tolliver in [place] on 08/28/2023 or anotheralternative date. Left voicemail to call me directly at [phone] to discuss further Tran Smith Thread Roller * Telephone Encounter - Tran Smith - 08/18/2023 3:52 PM EDT 01/08/2024 COLON/EGD DIAGNOSTIC PATIENT TO BE CALLED WITH SOONER DATE BY OFFICE Tarn Smith Thread Roller documented in this encounterFirelands Regional Medical Center South Campus03-23-2024 History of Present illness Narrative* Isidro Lipscomb MD - 08/19/2023 10:10 AM EDT [...] Chronic kidney disease (CKD), stage III (moderate) ([facility]) COPD (chronic obstructive pulmonary disease) ([facility]) Dr. Love Depression Dysuria Generalized anxiety disorder [...] Left leg, managed by plastic surgery Stroke ([facility]) x 4 Suprapubic pain Vitamin D deficiency [...] entered by the nurse and reviewed by me Nursing Notes: Margaret Diego RN 08/18/2023 2:32 [...] C (97 F), height 167.6 cm (5' 6"), vbraxf13.5 kg (166 lb 6.4 oz), SpO2 97%. [...] me after the testing has been completed. Isidro Lipscomb MD documented in this encounterFirelands Regional Medical Center South Campus03-22-2024 Telephone encounter Note * Telephone Encounter - Tran Smith - 08/18/2023 3:52 PM EDT 01/08/2024 COLON/EGD DIAGNOSTIC PATIENT TO BE CALLED WITH SOONER DATE BY OFFICE Tran Smith Thread Roller [facility]03-22-2024 Instructions* Patient Instructions* Isidro Lipscomb MD - 08/18/2023 3:25 PM EDT [...] If you do not have a responsible cross country truck driver (family member or friend) with you [...] until midnight. 2 04/2019 documented in this encounterFirelands Regional Medical Center South Campus03-22-2024 Nurse Note* Margaret Diego RN - 08/18/2023 2:18 PM EDT REVIEW [...] 2021 Margaret Diego RN documented in this encounterFirelands Regional Medical Center South Campus03-18-2024 Miscellaneous Notes* Telephone Encounter - Shawnee Masters RN - 08/14/2023 1:22 PM EDT Reason for Call: Intermittent dizziness, unable to stand, requires support to walk. Outcome: Patient advised to go to ED now. Patient verbalizes understanding, and states she will go to [place] ER. Reason for Disposition SEVERE dizziness (e.g., unable to stand, requires support to walk, feels like passing out now) Protocols used: Dizziness - [id number] documented in this encounterFirelands Regional Medical Center South Campus03-13-2024 Evaluation note* Diagnosis Stage 3a chronic kidney disease (HCC)- Primary documented in this encounter [facility]03-13-2024 Reason for referral (narrative)* Diagnostic Procedure Only (Routine) - Closed Specialty Diagnoses / Procedures Referred By Contac t Referred To Contact US IMAGING Diagnoses Stage 3a chronic kidney disease (HCC) Procedures US KIDNEY/BLADDER US RETROPERITONEAL REAL TIME W/IMAGE COMPLETE Tatiana Ronquillo MD [address] [facility] [place] [address] [place] [id number] Referral ID Status Reason Start Date Expiration Date V isits Requested Visits Authorized [id number] Closed Auto-Generate d Referral 07/28/2023 08/26/2024 1 1 [facility]03-06-2024 Miscellaneous Notes* Telephone Encounter - Dominga [place]ley [...] function improves with treatment. documented in this encounterFirelands Regional Medical Center South Campus03-05-2024 Evaluation note* Diagnosis Stage 3a chronic kidney disease (HCC) documented in this encounter [facility]03-04-2024 History of Present illness Narrative* Yamile Vivas RDMS - 07/31/2023 2:30 PM EST Radiology Service [...] PATIENT PRESENTS WITH AN IMPLANTABLE OR ATTACHED COMPUTER OPERATIONS SUPERVISOR: No RADIOLOGY DEPARTMENT: Ultrasound PERIPHERAL IV DATA: Not applicable SIGNED BY: Yamile Vivas RDMS T July 31, 2023 2:47 PM documented in this encounterFirelands Regional Medical Center [facility] Campus03-01-2024 Miscellaneous Notes* Telephone Encounter - Vira Valerio [...] the kidneys further workup. documented in this encounterFirelands Regional Medical Center South Campus12-29-2023 NoteHNO ID: [id number] Author: Meaghan Trevino APRN.MESSENGER COPY Service: ? Author Type: Nurse Practitioner Type: Progress Notes Filed: 05/26/2023 4:20 PM Note Text: [facility] [place] [facility] Today's Date: 05/26/2023 Name: Temitope Haddad [...] was advised that they will need a cross country truck driver for after the procedure and that if no cross country truck driver is available and on site at [...] Referrals: No additional considerations at present Functional Denominational: Physical Therapy (Land-based) Depending on response to [...] Tobacco comments: d/c 07/28/19 (more content not included)...[facility] 05-26-2023 NoteHNO ID: [id number] Author: Clover Alberts LPN Service: ? Author [...] Negative for suicidal ideas. The patient is nervous/anxious.[facility]12-15-2023 Miscellaneous Notes* Telephone Encounter - River Farias Ma - 05/12/2023 3:21 PM EST Called [facility] to verify that fosamax has active refills. Also verified that celexa comes from [facility] through [facility]ana[facility]. Patient was notified to contact them for refill for celexa River Farias Ma * Telephone Encounter - Lili Barillas - 05/12/2023 2:35 PM EST Pharmacy verified in [facility] Patient has been identified by name and [...] advise. Lili Peña Pss documented in this encounterFirelands Regional Medical Center South Campus10-25-2023 Miscellaneous Notes* Telephone Encounter - Kavitha Kim LPN - 03/22/2023 1:53 PM EDT Phoned patient and went over results, notes from Dr Ronquillo with understanding. * Telephone Encounter - Kavitha Kim LPN - 03/22/2023 1:52 PM EDT ----- Message from Tatiana Ronquillo MD sent at 03/22/2023 1:49 PM EDT ----- Negative/normal mammogram. Return to annual screening. documented in this encounterFirelands Regional Medical Center South Campus10-25-2023 History of Present illness Narrative* Mirlande Rodriguez [...] 22, 2023 1:00 PM documented in this encounterFirelands Regional Medical Center South Campus10-19-2023 Miscellaneous Notes* Telephone Encounter - Barrett Falk APRN.CNP - 03/16/2023 3:26 PM EDT [...] to have screening CT scans done at [facility] in the future she will need to get re-enrolled in the Lung Cancer Screening Program. documented in this encounterFirelands Regional Medical Center South Campus10-19-2023 Miscellaneous Notes* Telephone Encounter - Tracy Aviles RN - 03/16/2023 9:54 AM EDT Called [facility] who confirmed the antibiotic Cipro was just called in. They state it will be several hours til they can get it ready. Called and notified pt. ER f/u appt also made for pt for 03/[address] Ronquillo. * Telephone Encounter - Tracy Aviles RN - 03/16/2023 9:30 AM EDT Called and spoke with nurse Juliana at [facility] ER who confirmed that pt was given a prescription for Cipro and that it was sent electronically to [facility] with a receipt confirmed by pharmacy. Juliana states she will call it in to the pharmacy. * Telephone Encounter - Tracy Aviles RN - 03/16/2023 9:26 AM EDT Called and spoke with pt again regarding antibiotic prescription. Pt states she did not get a papercopy and that she told the [facility] ER provider to send the script to [facility]. * Telephone Encounter - Tracy Aviles RN - 03/16/2023 9:17 AM EDT Called and spoke with someone at [facility] pharmacy who confirms they were closed the last 4 days due to not having a pharmacist. She also checked records and there is no ciprofloxacin prescription in pt's history. * Telephone Encounter - Tracy Aviles RN - 03/16/2023 8:44 AM EDT Please hold off on approving refill requests. Called pt as she should have refills at [facility] pharmacy in [place]. Per pt, she states they have been closed for 4 days. Pt was also in [facility] ER on Monday the and prescribed an antibiotic for a "kidney infection". Pt has not been able to shredder picker the prescription. Will follow up with pharmacy [...] and advise. Josue Sweeney documented in this encounterFirelands Regional Medical Center [facility] Campus10-18-2023 Miscellaneous Notes* Telephone Encounter - Enriqueta Grubbs MA - 03/15/2023 2:53 PM EDT Phone call to patient regarding below. Pt states that "there is a sign on the door at [facility] that they're closed and [facility] Patient just wanting to update office. Enriqueta Grubbs MA * Telephone Encounter - Shavonne Underwood - 03/15/2023 2:38 PM EDT Patient went to shredder picker medications from the [facility] pharmacy and they have had their doors locked. Onewas a medication that she thinks was from [facility]-an antibiotic but does not know the name. The other may be Lipitor and albuterol. Please call to review situation. TY documented in this encounterFirelands Regional Medical Center [facility] Campus10-17-2023 History of Present illness Narrative* Juliann Blanc, (R) - 03/14/2023 1:20 PM EDT Radiology Service [...] 14, 2023 3:44 PM documented in this encounterFirelands Regional Medical Center South Campus10-16-2023 Discharge summary Author Eduardo Ely [facility] March 13, 2023 8:30pm Note Date/Time March 13, 2023 4 :43pm [facility] Medical Records Department [address] [place] [id number] Emergency Department Summary 03/13/23 MR#: [id number] Acct: [id number] Name: TEMITOPE CASTELLON Rep #:[id number] : 1955 67 From: Eduardo Ely DO [...] part of her back. Denies any trauma. [facility] Medical History Abdominal pain Abnormal Holter monitor finding Acute dysfunction of both eustachian tubes Acute seasonal allergic rhinitis Acute serous otitis media Ambulates with cane Anxiety Anxiety disorder Arthritis Atherosclerotic heart disease of [place] coronary artery without angina pectoris Bronchitis Bruising [...] and there is something structurally wrong with herkidney although this was a month ago. She [...] % (Auto) 68.6 Lymph % (Auto) 24.2 Fountain % (Auto) 5.1 Eos % (Auto) 1.1 [...] Clarity Clear Urine pH 6.0 Ur Specific [place] 1.015 Urine Protein 15 H Urine Glucose [...] your Primary Care Provider. Call [facility] ([phone]) or report to the closest Emergency Room. Call 911 if necessary. 03/13/232029 <Electronically signed by Eduardo Ely DO> Cosigner Signature (if applicable): CC: Dr. Bird Ronquillo MD ~ Signed [facility] Work Phone: 1(690) 382-536710-16-2023 Miscellaneous Notes* Letter - Coordinator, Mammography - 03/13/2023 4:14 PM EDT March 14, 2023 PID: [id number] Temitope Haddad [address] [address] Dear Ms. Haddad, Your prior imaging studies have arrived and been compared to your current study performed on 02/23/2023 which showed a possible finding that requires additional imaging studies for a complete evaluation. Most such findings are probably benign (not cancer). If you have a healthcare provider who ordered/prescribed your screening mammogram: Please call [phone] or [phone] to schedule an appointment for your additional [...] and reports are kept on file at [facility] as part of your permanent medical record, and are available for your continuing care. Thank you for allowing us to help in meeting your health care needs. Sincerely, Dr. Hoover Interpreting Radiologist [facility] (compared needs addl imaging) documented in this encounterFirelands Regional Medical Center [facility] Campus10-11-2023 Miscellaneous Notes* Telephone Encounter - Yumiko Sarkar [...] advise. Talita Castellon LPN documented in this encounterFirelands Regional Medical Center [facility] Campus10-06-2023 Miscellaneous Notes* Telephone Encounter - Laura Haji LPN - 03/03/2023 1:32 PM EDT Patient in this day requesting Atorvastatin 40mg be filled. Was filled at her last PCP and hasn't been filled here yet. [facility] [facility] Please review and advise. Laura Haji LPN documented in this encounterFirelands Regional Medical Center South Campus10-04-2023 Miscellaneous Notes* Telephone Encounter - Laura Haji LPN - 03/01/2023 4:30 PM EDT Patients in this day upset over medication being requested on 02/15/2023 not being refilled at correct pharmacy([facility]). Upon looking it appears medication was sent to correct pharmacy [facility] as requested on 02/15/2023. [facility] called by this nurse. Spoke with pharmacy scheduler, they state refill was too soon yet. It had been sent to [facility] that same day but discontinued and then sent to [facility] [place]. erp technical lead reran order this day and it went through, will fill for pickup. Patients made aware and will shredder picker medication. Made aware if ever has any further issues tocall the office and we would be happy to help. agreeable and left with no issues. Laura Haji LPN documented in this encounterFirelands Regional Medical Center South Campus10-04-2023 History of Present illness Narrative* Yamile Cordero, PT - 03/01/2023 3:44 PM EDT Episode Visit Count: 1 Therapist That Will Accept/Oversee The Plan Of Care: Yamile Cordero Start of Care Date: 03/01/23 Onset Date: [...] Planned: 12 Planned Treatment Interventions: Therapeutic exercise (95607), Neuromuscular re- education (14105), Manual therapy (13355) PLAN FOR NEXT VISIT: Continue TA stabilization [...] be performed [place] Comments: uses a cane "when she feels off balance." Red Flags Vertebral Fracture Red Flags: Female [...] Major limitation (B hips) Lumbar R Side [place]: Normal, Produces (R hip) Lumbar L Side [place]: Normal, Produces (R hip) Lumbar R Side-Bend: Moderate limitation, Produces (R hip) Lumbar L Side-Bend: Moderate limitation, Produces (R hip) Repeated Test Movements - Lumbar Other Lumbar Repeated Test Movements: Yes Other Repeated Test Movements - Lumbar RFISit / Symptoms During: decreases RFISit / Symptoms After: increase ROM, centralized, better ("better" per pt. report, centralizes from thigh to [...] Demonstration TREATMENT: PT Treatment Interventions: Therapeutic Exercise, Self-Snf Management, Gait Training Evaluation Therapeutic Exercise: 1: [...] facilitated with verbal, visual, and tactile cueing. Self-Snf Management: 1: *postural education- avoid perching Skilled [...] 1630 Yamile Cordero PT documented in this encounterFirelands Regional Medical Center South Campus09-30-2023 Miscellaneous Notes* Telephone Encounter - Rosaura Tristan [...] assist patient with scheduling. documented in this encounterFirelands Regional Medical Center South Campus09-28-2023 History of Present illness Narrative* Mary Felix Mammo Tech - 02/23/2023 1:10 PM EDT Radiology Service [...] 23, 2023 1:12 PM documented in this encounterFirelands Regional Medical Center South Campus09-28-2023 History of Present illness Narrative* Bailee Thompson [...] 23, 2023 12:41 PM documented in this encounterFirelands Regional Medical Center South Campus09-20-2023 Miscellaneous Notes* Telephone Encounter - Tatiana Ronquillo MD - 02/15/2023 12:07 PM EDT Rx sent to [facility] as requested. * Telephone Encounter - River Farias Ma - 02/15/2023 12:02 PM EDT Please resend to [facility] pharmacy River Farias Ma * Telephone Encounter - Maia Sorenson - 02/15/2023 11:54 AM EDT Patient would like to know why Fosamax was sent to [facility] instead of [facility]. Please advise and call patient. * Telephone Encounter - Tatiana Ronquillo MD - 02/14/2023 5:21 PM EDT Rx sent. * Telephone Encounter - Laura Haji LPN - 02/14/2023 4:55 PM EDT Patient notified. Please send rx to [facility] in [place]. Laura Haji LPN * Telephone Encounter - [...] Recheck DXA 2-4 years. documented in this encounterFirelands Regional Medical Center South Campus09-12-2023 Instructions* Patient Instructions* Barrett Falk IN HOME SALES CONSULTANT.MESSENGER COPY - 02/07/2023 2:03 PM EDT Images from [...] small number of people the nodule may bottom turner to be an early cancer. Your doctor [...] cancer? Fewer than 5% of all nodules bottom turner to be cancer What if my nodule [...] months from initial scan. documented in this encounterFirelands Regional Medical Center South Campus09-12-2023 History of Present illness Narrative* Daniel Henriquez RT(R) - 02/07/2023 2:00 PM EDT Radiology [...] 07, 2023 1:40 PM documented in this encounterFirelands Regional Medical Center South Campus09-12-2023 History of Present illness Narrative* Barrett Falk APRN.MESSENGER COPY - 02/07/2023 1:05 PM EDT Images from [...] pre-disease performance w/o restriction. Modified Medical Research [place] Dyspnea Scale (MMRC) I only get breathless with strenous exercise 0 PAST MEDICAL HISTORY Diagnosis Date Abdominal pain, right lower quadrant Benign neoplasm of colon COPD (chronic obstructive pulmonary disease) ([facility]) Dr. Love Dysuria Generalized anxiety disorder GERD (gastroesophageal reflux disease) History of tobacco use HTN (hypertension) Hyperlipemia Hypothyroidism Impaired fasting blood sugar Left leg pain Leiomyoma of uterus, unspecified very mild changes seen on sono Seasonal allergies Skin graft hematoma Left leg, managed by plastic surgery Stroke ([facility]) x 4 Suprapubic pain Vitamin D deficiency [...] hours as needed for shortness of breath TARI AEROSPHERE 160-9-4.8 mcg/actuation HFA aerosol inhaler Inhale [...] index is 24.66 kg/m . Patient-entered Height: 5'4" Patient-entered Weight: 148 pounds 8. COPD: Yes [...] CT Chest and 11/16/2022 CT Chest at [facility]. Prior Imaging: Last XR Chest - Impression Only XR CHEST 2V FRONTAL/LAT Exam End: 02/15/2019 11:56 PM (Final result) Impression: IMPRESSION: No acute radiographic abnormality. Cross Country Truck Driver: GASPER ... Pulmonary Function Testing: No textual [...] RUL lung nodule on 10/2022 scans from [facility]. It is documented as new per their report. No prior CT scans available for imaging review. Will request additional CT scan images. Plan: [address] for 14 x 6 mm RUL nodule. Barrett Falk APRN.CNP NPI #: February 07, 2023 1:08 PM Medical Decision Making: Problems: Moderate: New problem with uncertain prognosis Data: Unique source(s) for external note(s) reviewed: 1 Unique test result(s) reviewed: 2 Unique test(s) ordered: 1 Independent interpretation of test from other physician/QHCP Medical Decision Making Level: 4 - Moderate documented in this encounterFirelands Regional Medical Center South Campus09-06-2023 Miscellaneous Notes* Telephone Encounter - Enriqueta Grubbs [...] month. Other labs normal. documented in this encounterFirelands Regional Medical Center South Campus09-05-2023 Miscellaneous Notes* Telephone Encounter - Paulo Vazquez [...] pt. Gerda Ziegler LPN documented in this encounterFirelands Regional Medical Center South Campus08-11-2023 History of Present illness Narrative* Sharron Chand [...] 06, 2023 1:38 PM documented in this encounterFirelands Regional Medical Center South Campus08-04-2023 History of Present illness Narrative* Lili Bob PA-C - 12/30/2022 11:54 AM EDT Plastic Surgery Follow Up Note Subjective: Temitope Castellon is here for follow up of: left thigh scar release with fat grafting 03/31/22. She states pain in the left thigh, same area of prior surgery, began a few months ago. Feels like "needles coming out of her leg" This happens a few times a week [...] Pain few times a week, feels like "needles coming out of her leg" GENERAL: No weight loss, malaise or fevers [...] care. Lili Bob PA-C documented in this encounterFirelands Regional Medical Center South Campus07-28-2023 Miscellaneous Notes* Telephone Encounter - Kavitha Kim LPN - 12/23/2022 2:35 PM EDT [...] place Pain Mgmt referral and have a Film Loader contact her to make appt. Please file pended order. Rosaura Tristan Ma * Telephone Encounter - Rosaura Tristan Ma - 12/23/2022 10:57 AM EDT ----- Message from Shavonne Donato APRN.MESSENGER COPY sent at 12/23/2022 6:36 AM EDT ----- Normal xray of coccyx. Recommend referral to pain management since this has been going on for so long. Shavonne Donato APRN.MESSENGER COPY documented in this encounterFirelands Regional Medical Center South Campus07-24-2023 History of Present illness Narrative* Magaly Benitez [...] 19, 2022 2:45 PM documented in this encounterFirelands Regional Medical Center South Campus07-06-2023 Discharge summary Author Naif Jackson [facility] December 01, 2022 4:16pm Note Date/Time December 01, 2022 4:04p [facility] Medical Records Department [address] [place] [address] Emergency Department Summary 12/01/22 MR#: [id number] Acct: [id number] Name: TEMITOPE CASTELLON Rep #:[id number] : 1955 67 From: Naif Jackson MD [...] symptoms for cauda equina. No saddle anesthesia. [facility] Medical History Abdominal pain Abnormal Holter monitor finding Acute dysfunction of both eustachian tubes Acute seasonal allergic rhinitis Acute serous otitis media Ambulates with cane Anxiety Anxiety disorder Arthritis Atherosclerotic heart disease of [place] coronary artery without angina pectoris Bronchitis Bruising [...] her primary care provider. She will take ivga-nxb-lnsajwp analgesics and will try mfdy-dwr-txwbrsu nonsteroidalanti-inflammatories, but based on her previous visit, [...] your Primary Care Provider. Call [facility] ([phone]) or report to the closest Emergency Room. Call 911 if necessary. 12/01/22 1616 <Electronically signed by Naif Jackson MD> Cosigner Signature (if applicable): CC: Dr. Bird Ronquillo MD ~ Signed [facility] Work Phone: 1(531) 326-683506-19-2023 History of Present illness Narrative* Thelma Jaimes APRN.MESSENGER COPY - 11/14/2022 1:21 PM EDT Plastic Surgery [...] grafting/scar release but now presents with shooting "needles" type pain that has been intermittently happening [...] issues Thelma Jaimes APRN.WILVER documented in this encounterFirelands Regional Medical Center South Campus06-12-2023 History of Present illness Narrative* KAMINI Lizama [...] ER evaluation. KAMINI Lizama documented in this encounterFirelands Regional Medical Center South Campus06-08-2023 Discharge summary Author Kunal Bray [facility] November 03, 2022 3:16am Note Date/Time November 03, 2022 12:53 am [facility] Medical Records Department [address] [place] [address] Emergency Department Summary 11/03/22 MR#: [id number] Acct: [id number] Name: TEMITOPE CASTELLON Rep #:[id number] : 1955 67 From: Kunal Bray DO [...] did not have improvement of her symptoms. [facility] Medical History Abdominal pain Abnormal Holter monitor finding Acute dysfunction of both eustachian tubes Acute seasonal allergic rhinitis Acute serous otitis media Ambulates with cane Anxiety Anxiety disorder Arthritis Atherosclerotic heart disease of [place] coronary artery without angina pectoris Bronchitis Bruising [...] PO Q6H PRN PRN abdominal discomfort #30 [id number]/26/23 [Rx Last Taken Unknown] ondansetron 4 mg [...] 78.1 H Lymph % (Auto) 16.6 L [place] % (Auto) 3.5 Eos % (Auto) 1.0 [...] (Auto) Neut % (Auto) Lymph % (Auto) [place] % (Auto) Eos % (Auto) Baso % [...] IMPRESSION: COPD and atherosclerotic disease Electronically Signed: Zeynep Solorzano MD at 1:04 EDT , Abdomen/Pelvis CT 11/03/22 00:33 IMPRESSION: 1. Stable exam with no evidence of acute intra-abdominal abnormality or etiology for right upper quadrant symptoms demonstrated. 2. Colonic diverticulosis with no evidence of diverticulitis. 3. COPD, atherosclerotic disease and other nonurgent findings within body of report. Electronically Signed: Zeynep Solorzano MD at 1:46 EDT , Chest [...] findings within body of report. Electronically Signed: Zeynep Solorzano MD at 1:58 EDT , 2 [...] your Primary Care Provider. Call [facility] ([phone]) or report to the closest Emergency Room. Call 911 if necessary. 11/03/22315 <Electronically signed by Kunal Bray DO> Cosigner Signature (if applicable): CC: Dr. Bird Ronquillo MD ~ Signed [facility] Work Phone: [phone]) 985-764206-07-2023 Miscellaneous Notes* Telephone Encounter - Diamond Caro - 11/02/2022 11:14 AM EDT Done. Patient has been scheduled. Diamond * Telephone Encounter - Ilene Eddy - 11/01/2022 3:16 PM EDT Pt stopped in to schedule appt regarding L leg. Pt stated "it is doing it again and wants appt w/doctor. Pt has seen Dr. Cherry. Pt can be reached at [phone]. Thank you. documented in this encounterFirelands Regional Medical Center South Campus04-05-2023 Discharge summary Author Jeff West [facility] August 31, 2022 3:47pm Note Date/Time August 26, 2022 11: 02am [facility] Physical Therapy [facility] [address] [place] [address] / REHABILITATION SERVICES DISCHARGE SUMMARY MR#: [id number] Acct: [id number] Name: TEMITOPE CASTELLON Rep #: [id number] : 1955 67 From: Cert. WHIT SyedT, OCS Referring Dr.: Dr. Giuseppe Mireles MD Status: REG R Insurance: [facility] It has been my pleasure to [...] Improvement: 90 Objective/Function: POSTURE: WFL. MMT: RTC/DELTOID 4/5. AROM: RIGHT UE. CERVICAL ROM: flexion WFL [...] please feel free to call me at [phone]. Thank you for the referral of thispatient. Sincerely, Jeff West PT, Cert T, OCS Balance/Gait/Functional tests - Balance/Special Test Scores Oswestry Neck Score: 1 <Electronically signed by Latrell Reyes PT. FABRICIO, OCS> 08/31/22 154 CC: Dr. Giuseppe Mireles MD; [facility] ~ JLA Signed [facility] Work Phone: 1(314) 247-896602-21-[address] Jackson [facility] July 19, 2022 4:56pm Note Date/Time July 19, 2022 3:49pm [facility] Medical Records Department [address] [place] [address] Emergency Department Summary 07/19/22 MR#: [id number] Acct: [id number] Name: TEMITOPE CASTELLON Rep #:[id number] : 1955 67 From: Naif Jackson MD PCP: [facility] St atus:REG ER Location: ED HPI HPI - Fall History of Present Illness Chief Complaint: Fall Narrative Narrative: 67-year-old female past medical history of CAD, CVA, denies being on blood thinners however, presents with bilateral knee pain and bilateral hand pain status post fall. She states that approximately 3 hours ago she was walking in the parking lot of [employer], and stepped in a hole. She fell [...] consciousness. No neck pain, no other injury. [facility] Medical History Abdominal pain Abnormal Holter monitor finding Acute dysfunction of both eustachian tubes Acute seasonal allergic rhinitis Acute serous otitis media Ambulates with cane Anxiety Anxiety disorder Arthritis Atherosclerotic heart disease of [place] coronary artery without angina pectoris Bronchitis Bruising [...] this point in time, she will continue fkry-qxy-lkahkkl medications, and icing the affected areas. I [...] Signed: Jovanni Urias MD at 16:36 EST Reading Location ID and State: [address] [place] [address] , Service support , Hand X-Ray 07/19/22 16:10 IMPRESSION: Normal x-ray examination of the hand. Electronically Signed: Jovanni Urias MD at 16:34 EST Reading Location ID and [facility] [id number] , Service support , Knee X-Ray 07/19/22 16:10 IMPRESSION: Normal x-ray examination of the knee. Electronically Signed: Jovanni Urias MD at 16:39 EST , Knee X-Ray 07/19/22 16:10 IMPRESSION: Normal x-ray examination of the knee. Electronically Signed: Jovanni Urias MD at 16:38 EST Reading Location ID and State: [facility] / [place] , Service support , Discharge Plan Triage Chief Complaint: Fall [...] pain) Qty: 12 0RF [facility] [Primary Care Provider] - Activity Restrictions/Additional Instructions: Follow-up with orthopedics as needed. Take Tylenol and ice the affected areas. Disposition Disposition: Home, Self Care What to do if you have Problems For any increased pain, shortness of breath, bleeding, nausea or vomiting, chestpain, or any unexpected problems, contact your Primary Care Provider. Call [facility] ([phone]) or report to the closest Emergency Room. Call 911 if necessary. 07/19/22 1656 <Electronically signed by Naif Jackson MD> Cosigner Signature (if applicable): CC: [facility] ~ Signed [facility] Work Phone: 1(792) 757-776212-08-2022 History of Present illness Narrative* Thelma Jaimes APRN.CNP - 05/05/2022 1:39 PM EST Plastic Surgery [...] 03/31/22 Physical Exam Ht 167.6 cm (5' 6") Wt 70.3 kg (155 lb) BMI 25.02 [...] to office if any concerns Thelma Jaimes APRN.CNP documented in this encounterFirelands Regional Medical Center South Campus10-27-2022 History and physical note * Lashonda Magaña APRN.CNP - 03/24/2022 10:00 AM EDT HISTORY AND PHYSICAL EXAMINATION SERVICE DATE: 03/23/2022 SERVICE TIME: 10:18 AM PRIMARY CARE PHYSICIAN: [facility] REASON FOR VISIT: Temitope Castellon is a [...] Negative for: dysuria, hematuria and renal failure. PHLEBOTOMY INSTRUCTOR: Negative for abnormal vaginal bleeding, abnormal vaginal [...] 141/67 Pulse 59 Temp 98.1 Ht 5' 6" (1.68m) Wt 155 lb (70.3kg) SpO2 97% [...] or any previous visit (from the past 74338 hour(s)). Assessment No problem-specific Assessment & Plan [...] at this time: primary care/internal medicine (in [facility] 02/24/2022). Planned Anesthetic: general Implantable Devices: IOL OU Patient has the following medical conditions which may affect vani-operative course COPD - Pt uses rescue inhaler once a week, follows with pulmonary. Denies hospitalization or pneumonia in the last 6 months. Instructed to use inhalers morning or surgery and bring to the hospital. HTN - Well controlled. Lisinopril. BP elevated in PST, pt denies BERNABE, CP or vision changes. Pt advised to monitor and discuss with PCP Hyperlipidemia - Statin. Stroke - 1014, intermittent right sided weakness, dysphasia. Plavix. Smoker - 40 pack year history, quit 07/2020 Pt taking Plavix I instructed patient to get preop instructions from surgeon and PCP. The Following Tests/Procedures Have Been Initiated: No orders per surgeon in [facility]. Assessment/Plan Diagnosis: Left leg pain [M79.605] PLAN [...] 11:36 AM PAGER/CONTACT #: documented in this encounterFirelands Regional Medical Center South Campus10-26-2022 Instructions* Patient Instructions* Lashonda Magaña APRN.CNP - 03/23/2022 11:33 AM EDT PATIENT PREOPERATIVE INSTRUCTIONS Dr. Victor has scheduled you for your procedure at this surgery center: [facility]: [phone], [address] [id number] Please read below carefully for your personalized [...] or the morning of surgery. Use the Member Savings Programns body wash supplied to you along with [...] surgery. - YOU MUST HAVE A RESPONSIBLE HOSPICE MASSAGE THERAPIST TAKE YOU HOME. A NET MANAGER, CAB OR UBER HOSPICE MASSAGE THERAPIST CANNOT BE [place] RESPONSIBLE HOSPICE MASSAGE THERAPIST. - We recommend that a responsible person [...] in our PACU area unless a minor, railroad surveyor or a special circumstance. Each patient isallowed [...] Lashonda Magaña APRN.CNP 03/23/22 documented in this encounterFirelands Regional Medical Center South Campus09-08-2022 History and physical note * Lashonda aMgaña APRN.CNP - 02/03/2022 1:00 PM EDT HISTORY AND PHYSICAL EXAMINATION SERVICE DATE: 02/01/2022 SERVICE TIME: 1:09 PM PRIMARY CARE PHYSICIAN: [facility] REASON FOR VISIT: Temitope Castellon is a [...] frequent urination, hematuria, renal failure and urgency. PHLEBOTOMY INSTRUCTOR: Negative for abnormal vaginal bleeding, abnormal vaginal [...] 50 Temp 97.9 Resp 16 Ht 5' 6" (1.68m) Wt 145 lb (65.8kg) SpO2 97% [...] or any previous visit (from the past 41211 hour(s)). Assessment No problem-specific Assessment & Plan [...] Lisinopril. BP elevated in PST, pt denies BERNABE, CP or vision changes. Pt advised to [...] 9:50 AM PAGER/CONTACT #: documented in this encounterFirelands Regional Medical Center South Campus09-06-2022 Instructions* Patient Instructions* KAMINI Canas - 02/01/2022 9:50 AM EDT PATIENT PREOPERATIVE INSTRUCTIONS Your surgeon has scheduled for your procedure at this surgery center: [facility]: [phone], [address] [id number] Please enter through the main entrance and proceed to the blue elevators. The [facility] is located to the left of [...] before scheduled surgery. Bring your Glucometer to [facility] if you are scheduled in [place] for [place]. If you have a stimulator, [...] or the morning of surgery. Use the Member Savings Programns body wash supplied to you along with [...] surgery. - YOU MUST HAVE A RESPONSIBLE HOSPICE MASSAGE THERAPIST TAKE YOU HOME. A NET MANAGER, CAB OR UBER HOSPICE MASSAGE THERAPIST CANNOT BE [place] RESPONSIBLE HOSPICE MASSAGE THERAPIST. - We recommend that a responsible person [...] of surgery. Orthopedic patients having surgery [facility] listed as outpatient should bring their walker into the building. Orthopedic patients having surgery [facility] listed as to be admitted should leave their walkers in the car or with a family member. KAMINI Canas 02/01/22 documented in this encounterFirelands Regional Medical Center South Campus08-08-2022 History of Present illness Narrative* Lj De [...] No results found for: HBA1C PCP: [facility] PAST MEDICAL HISTORY Diagnosis Date Abdominal pain, [...] Continues bandaid and neosporin. documented in this encounterFirelands Regional Medical Center South Campus08-03-2022 Instructions* Patient Instructions* Lj De Santiago - 12/29/2021 4:00 PM EDT Your toe is now healed. No signs of infection Continue with bactrim until complete If you have any issues or concerns develop, contact the office. documented in this encounterFirelands Regional Medical Center South Campus08-02-2022 History of Present illness Narrative* Jeff Victor [...] fat grafting OR Time Needed: 90 min [place] or ASC:any Equipment Request: lipografter, tumescent, 18G needle SA Requested: No Anesthesia: general Post op appointment: 2,5,8 Inpatient stay:No Block Needed: No Pre Testing Needed: Yes including pcp/hematology regarding plavix Occupational Therapy: No Cosmetic: No Jeff Victor MD History of Present Illness: This is a 66 year old female who presented with painful indent/bruise/closed wound on leg. Patient states "it started off as a bruise in May 2021, and over time it started to indent and get worse." Patient states it is sometimes painful. PAST [...] is 8/10 on palpation, ?tinels, total size 1x5x9dp During this patient visit I have spent approximately 30 minutes out of 45 in counseling regarding treatment options and coordinating care. The patient is seen and examined by and the following reflects his/her service. Scribed by Hattie Holbrook LPN I agree with the Chief Complaint, ROS, and Past Histories independently gathered by the clinical business support assistant and the remaining scribed note accurately describes my personal service to the patient. documented in this encounterFirelands Regional Medical Center South Campus05-04-2022 Miscellaneous Notes* Telephone Encounter - Dominga Whitley [...] improving in 3-5 days. documented in this encounterFirelands Regional Medical Center South Campus09-21-2019 History of Past illness Narrative* Problem Noted Date Resolved Date Chest pain 02/16/2019 02/16/2019 Overview: Lab Results Component Value Date HSTNT <6 02/16/2019 HSTNT <6 02/15/2019 TROPT <0.010 02/16/2019 TROPT <0.010 02/16/2019 TROPT <0.010 02/01/2019 Sack Department Supervisor Dr. Nieves evaluated the patient He will [...] of this encounter (statuses as of 09/29/2021) [facility]09[facility]2019 History of Past illness Narrative* Problem Noted Date Resolved Date Chest pain 02/16/2019 02/16/2019 Overview: Lab Results Component Value Date HSTNT <6 02/16/2019 HSTNT <6 02/15/2019 TROPT <0.010 02/16/2019 TROPT <0.010 02/16/2019 TROPT <0.010 02/01/[address] [place] [address] Nieves evaluated the patient He will [...] Monitor on telemetry Cardiology evaluation requested, Dr. Nieevs to see patient in am Suspect there may be MSK component as the pain is reproducible vs GI component with history of GERD and hiatal hernia Suprapubic pain 10/11/2011 06/10/2013 Screening for malignant neoplasm of the cervix 0 10/11/2011 10/11/2011 documented as of this encounter (statuses as of 10/20/2021) [facility]2019 History of Past illness Narrative* Problem Noted Date Resolved Date Chest pain 02/16/2019 02/16/2019 Overview: Lab Results Component Value Date HSTNT <6 02/16/2019 HSTNT <6 02/15/2019 TROPT <0.010 02/16/2019 TROPT <0.010 02/16/2019 TROPT <0.010 02/01/[address] [place] [address] Nieves evaluated the patient He will [...] strong family history Initial work up: HS SHANIT < 6, < 6, EKG without ischemic [...] of this encounter (statuses as of 12/30/2021) [facility] History of Past illness Narrative* Problem Noted Date Resolved Date Chest pain 02/16/2019 02/16/2019 Overview: Lab Results Component Value Date HSTNT <6 02/16/2019 HSTNT <6 02/15/2019 TROPT <0.010 02/16/2019 TROPT <0.010 02/16/2019 TROPT <0.010 02/01/[address] [place] [address] Nieves evaluated the patient He will [...] of this encounter (statuses as of 01/03/2022) [facility] History of Past illness Narrative* Problem Noted Date Resolved Date Chest pain 02/16/2019 02/16/2019 Overview: Lab Results Component Value Date HSTNT <6 02/16/2019 HSTNT <6 02/15/2019 TROPT <0.010 02/16/2019 TROPT <0.010 02/16/2019 TROPT <0.010 02/01/[address] [place] [address] Nieves evaluated the patient He will [...] of this encounter (statuses as of 01/05/2022) [facility] History of Past illness Narrative* Problem Noted Date Resolved Date Chest pain 02/16/2019 02/16/2019 Overview: Lab Results Component Value Date HSTNT <6 02/16/2019 HSTNT <6 02/15/2019 TROPT <0.010 02/16/2019 TROPT <0.010 02/16/2019 TROPT <0.010 02/01/[address] [place] [address] Nieves evaluated the patient He will [...] of this encounter (statuses as of 02/03/2022) [facility]2019 History of Past illness Narrative* Problem Noted Date Resolved Date Chest pain 02/16/2019 02/16/2019 Overview: Lab Results Component Value Date HSTNT <6 02/16/2019 HSTNT <6 02/15/2019 TROPT <0.010 02/16/2019 TROPT <0.010 02/16/2019 TROPT <0.010 02/01/[address] [place] [address] Nivees evaluated the patient He will follow the [...] of this encounter (statuses as of 03/24/2022) [facility]2019 History of Past illness Narrative* Problem Noted Date Resolved Date Chest pain 02/16/2019 02/16/2019 Overview: Lab Results Component Value Date HSTNT <6 02/16/2019 HSTNT <6 02/15/2019 TROPT <0.010 02/16/2019 TROPT <0.010 02/16/2019 TROPT <0.010 02/01/[address] [place] [address] Nieves evaluated the patient He will [...] of this encounter (statuses as of 05/05/2022) [facility] History of Past illness Narrative* Problem Noted Date Resolved Date Chest pain 02/16/2019 02/16/2019 Overview: Lab Results Component Value Date HSTNT <6 02/16/2019 HSTNT <6 02/15/2019 TROPT <0.010 02/16/2019 TROPT <0.010 02/16/2019 TROPT <0.010 02/01/[address] [place] [address] Nieves evaluated the patient He will [...] of this encounter (statuses as of 11/02/2022) [facility] History of Past illness Narrative* Problem Noted Date Resolved Date Chest pain 02/16/2019 02/16/2019 Overview: Lab Results Component Value Date HSTNT <6 02/16/2019 HSTNT <6 02/15/2019 TROPT <0.010 02/16/2019 TROPT <0.010 02/16/2019 TROPT <0.010 02/01/[address] [place] [address] Nieves evaluated the patient He will [...] of this encounter (statuses as of 11/08/2022) [facility] History of Past illness Narrative* Problem Noted Date Resolved Date Chest pain 02/16/2019 02/16/2019 Overview: Lab Results Component Value Date HSTNT <6 02/16/2019 HSTNT <6 02/15/2019 TROPT <0.010 02/16/2019 TROPT <0.010 02/16/2019 TROPT <0.010 02/01/[address] [place] [address] Nieves evaluated the patient He will [...] of this encounter (statuses as of 11/14/2022) [facility] History of Past illness Narrative* Problem Noted Date Diagnosed Date Resolved Date Chest pain 02/16/2019 02/16/2019 Overview: Lab Results Component Value Date HSTNT <6 02/16/2019 HSTNT <6 02/15/2019 TROPT <0.010 02/16/2019 TROPT <0.010 02/16/2019 TROPT <0.010 02/01/[address] [place] [address] Nieves evaluated the patient He will [...] of this encounter (statuses as of 12/23/2022) [facility] History of Past illness Narrative* Problem Noted Date Diagnosed Date Resolved Date Chest pain 02/16/2019 02/16/2019 Overview: Lab Results Component Value Date HSTNT <6 02/16/2019 HSTNT <6 02/15/2019 TROPT <0.010 02/16/2019 TROPT <0.010 02/16/2019 TROPT <0.010 02/01/[address] [place] [address] Nieves evaluated the patient He will [...] of this encounter (statuses as of 01/03/2023) [facility] History of Past illness Narrative* Problem Noted Date Diagnosed Date Resolved Date Chest pain 02/16/2019 02/16/2019 Overview: Lab Results Component Value Date HSTNT <6 02/16/2019 HSTNT <6 02/15/2019 TROPT <0.010 02/16/2019 TROPT <0.010 02/16/2019 TROPT <0.010 02/01/[address] [place] [address] Nieves evaluated the patient He will [...] of this encounter (statuses as of 01/07/2023) [facility] History of Past illness Narrative* Problem Noted Date Diagnosed Date Resolved Date Chest pain 02/16/2019 02/16/2019 Overview: Lab Results Component Value Date HSTNT <6 02/16/2019 HSTNT <6 02/15/2019 TROPT <0.010 02/16/2019 TROPT <0.010 02/16/2019 TROPT <0.010 02/01/[address] [place] [address] Nieves evaluated the patient He will [...] of this encounter (statuses as of 01/31/2023) [facility] History of Past illness Narrative* Problem Noted Date Diagnosed Date Resolved Date Chest pain 02/16/2019 02/16/2019 Overview: Lab Results Component Value Date HSTNT <6 02/16/2019 HSTNT <6 02/15/2019 TROPT <0.010 02/16/2019 TROPT <0.010 02/16/2019 TROPT <0.010 02/01/[address] [place] [address] Nieves evaluated the patient He will [...] of this encounter (statuses as of 02/01/2023) [facility] History of Past illness Narrative* Problem Noted Date Diagnosed Date Resolved Date Chest pain 02/16/2019 02/16/2019 Overview: Lab Results Component Value Date HSTNT <6 02/16/2019 HSTNT <6 02/15/2019 TROPT <0.010 02/16/2019 TROPT <0.010 02/16/2019 TROPT <0.010 02/01/[address] [place] [address] Nieves evaluated the patient He will [...] of this encounter (statuses as of 02/07/2023) [facility] History of Past illness Narrative* Problem Noted Date Diagnosed Date Resolved Date Chest pain 02/16/2019 02/16/2019 Overview: Lab Results Component Value Date HSTNT <6 02/16/2019 HSTNT <6 02/15/2019 TROPT <0.010 02/16/2019 TROPT <0.010 02/16/2019 TROPT <0.010 02/01/[address] [place] [address] Nieves evaluated the patient He will [...] of this encounter (statuses as of 02/15/2023) [facility] History of Past illness Narrative* Problem Noted Date Diagnosed Date Resolved Date Chest pain 02/16/2019 02/16/2019 Overview: Lab Results Component Value Date HSTNT <6 02/16/2019 HSTNT <6 02/15/2019 TROPT <0.010 02/16/2019 TROPT <0.010 02/16/2019 TROPT <0.010 02/01/[address] [place] [address] Nieves evaluated the patient He will [...] of this encounter (statuses as of 02/25/2023) [facility]2019 History of Past illness Narrative* Problem Noted Date Diagnosed Date Resolved Date Chest pain 02/16/2019 02/16/2019 Overview: Lab Results Component Value Date HSTNT <6 02/16/2019 HSTNT <6 02/15/2019 TROPT <0.010 02/16/2019 TROPT <0.010 02/16/2019 TROPT <0.010 02/01/[address] [place] [address] Nieves evaluated the patient He will [...] of this encounter (statuses as of 03/03/2023) [facility]2019 History of Past illness Narrative* Problem Noted Date Diagnosed Date Resolved Date Chest pain 02/16/2019 02/16/2019 Overview: Lab Results Component Value Date HSTNT <6 02/16/2019 HSTNT <6 02/15/2019 TROPT <0.010 02/16/2019 TROPT <0.010 02/16/2019 TROPT <0.010 02/01/[address] [place] [address] Nieves evaluated the patient He will [...] of this encounter (statuses as of 03/03/2023) [facility]2019 History of Past illness Narrative* Problem Noted Date Diagnosed Date Resolved Date Chest pain 02/16/2019 02/16/2019 Overview: Lab Results Component Value Date HSTNT <6 02/16/2019 HSTNT <6 02/15/2019 TROPT <0.010 02/16/2019 TROPT <0.010 02/16/2019 TROPT <0.010 02/01/[address] [place] [address] Nieves evaluated the patient He will [...] of this encounter (statuses as of 03/04/2023) [facility]2019 History of Past illness Narrative* Problem Noted Date Diagnosed Date Resolved Date Chest pain 02/16/2019 02/16/2019 Overview: Lab Results Component Value Date HSTNT <6 02/16/2019 HSTNT <6 02/15/2019 TROPT <0.010 02/16/2019 TROPT <0.010 02/16/2019 TROPT <0.010 02/01/[address] [place] [address] Nieves evaluated the patient He will [...] of this encounter (statuses as of 03/08/2023) [facility]2019 History of Past illness Narrative* Problem Noted Date Diagnosed Date Resolved Date Chest pain 02/16/2019 02/16/2019 Overview: Lab Results Component Value Date HSTNT <6 02/16/2019 HSTNT <6 02/15/2019 TROPT <0.010 02/16/2019 TROPT <0.010 02/16/2019 TROPT <0.010 02/01/[address] [place] [address] Nieves evaluated the patient He will [...] of this encounter (statuses as of 03/15/2023) [facility]2019 History of Past illness Narrative* Problem Noted Date Diagnosed Date Resolved Date Chest pain 02/16/2019 02/16/2019 Overview: Lab Results Component Value Date HSTNT <6 02/16/2019 HSTNT <6 02/15/2019 TROPT <0.010 02/16/2019 TROPT <0.010 02/16/2019 TROPT <0.010 02/01/[address] [place] [address] Nieves evaluated the patient He will [...] of this encounter (statuses as of 03/15/2023) [facility]2019 History of Past illness Narrative* Problem Noted Date Diagnosed Date Resolved Date Chest pain 02/16/2019 02/16/2019 Overview: Lab Results Component Value Date HSTNT <6 02/16/2019 HSTNT <6 02/15/2019 TROPT <0.010 02/16/2019 TROPT <0.010 02/16/2019 TROPT <0.010 02/01/[address] [place] [address] Nieves evaluated the patient He will [...] of this encounter (statuses as of 03/16/2023) [facility] History of Past illness Narrative* Problem Noted Date Diagnosed Date Resolved Date Chest pain 02/16/2019 02/16/2019 Overview: Lab Results Component Value Date HSTNT <6 02/16/2019 HSTNT <6 02/15/2019 TROPT <0.010 02/16/2019 TROPT <0.010 02/16/2019 TROPT <0.010 02/01/[address] [place] [address] Nieves evaluated the patient He will [...] of this encounter (statuses as of 03/22/2023) [facility] History of Past illness Narrative* Problem Noted Date Diagnosed Date Resolved Date Chest pain 02/16/2019 02/16/2019 Overview: Lab Results Component Value Date HSTNT <6 02/16/2019 HSTNT <6 02/15/2019 TROPT <0.010 02/16/2019 TROPT <0.010 02/16/2019 TROPT <0.010 02/01/[address] [place] [address] Nieves evaluated the patient He will [...] of this encounter (statuses as of 04/02/2023) [facility] History of Past illness Narrative* Problem Noted Date Diagnosed Date Resolved Date Chest pain 02/16/2019 02/16/2019 Overview: Lab Results Component Value Date HSTNT <6 02/16/2019 HSTNT <6 02/15/2019 TROPT <0.010 02/16/2019 TROPT <0.010 02/16/2019 TROPT <0.010 02/01/[address] [place] [address] Nieves evaluated the patient He will [...] of this encounter (statuses as of 04/02/2023) [facility] History of Past illness Narrative* Problem Noted Date Diagnosed Date Resolved Date Chest pain 02/16/2019 02/16/2019 Overview: Lab Results Component Value Date HSTNT <6 02/16/2019 HSTNT <6 02/15/2019 TROPT <0.010 02/16/2019 TROPT <0.010 02/16/2019 TROPT <0.010 02/01/[address] [place] [address] Nieves evaluated the patient He will [...] of this encounter (statuses as of 04/02/2023) [facility] History of Past illness Narrative* Problem Noted Date Diagnosed Date Resolved Date Chest pain 02/16/2019 02/16/2019 Overview: Lab Results Component Value Date HSTNT <6 02/16/2019 HSTNT <6 02/15/2019 TROPT <0.010 02/16/2019 TROPT <0.010 02/16/2019 TROPT <0.010 02/01/[address] [place] [address] Nieves evaluated the patient He will [...] of this encounter (statuses as of 04/02/2023) [facility] History of Past illness Narrative* Problem Noted Date Diagnosed Date Resolved Date Chest pain 02/16/2019 02/16/2019 Overview: Lab Results Component Value Date HSTNT <6 02/16/2019 HSTNT <6 02/15/2019 TROPT <0.010 02/16/2019 TROPT <0.010 02/16/2019 TROPT <0.010 02/01/[address] [place] [address] Nieves evaluated the patient He will [...] of this encounter (statuses as of 04/02/2023) [facility] History of Past illness Narrative* Problem Noted Date Diagnosed Date Resolved Date Chest pain 02/16/2019 02/16/2019 Overview: Lab Results Component Value Date HSTNT <6 02/16/2019 HSTNT <6 02/15/2019 TROPT <0.010 02/16/2019 TROPT <0.010 02/16/2019 TROPT <0.010 02/01/[address] [place] [address] Nieves evaluated the patient He will [...] of this encounter (statuses as of 05/13/2023) [facility] History of Past illness Narrative* Problem Noted Date Diagnosed Date Resolved Date Chest pain 02/16/2019 02/16/2019 Overview: Lab Results Component Value Date HSTNT <6 02/16/2019 HSTNT <6 02/15/2019 TROPT <0.010 02/16/2019 TROPT <0.010 02/16/2019 TROPT <0.010 02/01/[address] [place] [address] Nieves evaluated the patient He will [...] of this encounter (statuses as of 08/01/2023) [facility] History of Past illness Narrative* Problem Noted Date Diagnosed Date Resolved Date Chest pain 02/16/2019 02/16/2019 Overview: Lab Results Component Value Date HSTNT <6 02/16/2019 HSTNT <6 02/15/2019 TROPT <0.010 02/16/2019 TROPT <0.010 02/16/2019 TROPT <0.010 02/01/[address] [place] [address] Nieves evaluated the patient He will [...] of this encounter (statuses as of 08/02/2023) [facility] History of Past illness Narrative* Problem Noted Date Diagnosed Date Resolved Date Chest pain 02/16/2019 02/16/2019 Overview: Lab Results Component Value Date HSTNT <6 02/16/2019 HSTNT <6 02/15/2019 TROPT <0.010 02/16/2019 TROPT <0.010 02/16/2019 TROPT <0.010 02/01/[address] [place] [address] Nieves evaluated the patient He will [...] of this encounter (statuses as of 08/09/2023) [facility] History of Past illness Narrative* Problem Noted Date Diagnosed Date Resolved Date Chest pain 02/16/2019 02/16/2019 Overview: Lab Results Component Value Date HSTNT <6 02/16/2019 HSTNT <6 02/15/2019 TROPT <0.010 02/16/2019 TROPT <0.010 02/16/2019 TROPT <0.010 02/01/[address] [place] [address] Nieves evaluated the patient He will [...] of this encounter (statuses as of 08/14/2023) [facility] History of Past illness Narrative* Problem Noted Date Diagnosed Date Resolved Date Chest pain 02/16/2019 02/16/2019 Overview: Lab Results Component Value Date HSTNT <6 02/16/2019 HSTNT <6 02/15/2019 TROPT <0.010 02/16/2019 TROPT <0.010 02/16/2019 TROPT <0.010 02/01/[address] [place] [address] Nieves evaluated the patient He will [...] of this encounter (statuses as of 08/19/2023) [facility] History of Past illness Narrative* Problem Noted Date Diagnosed Date Resolved Date Chest pain 02/16/2019 02/16/2019 Overview: Lab Results Component Value Date HSTNT <6 02/16/2019 HSTNT <6 02/15/2019 TROPT <0.010 02/16/2019 TROPT <0.010 02/16/2019 TROPT <0.010 02/01/[address] [place] [address] Nieves evaluated the patient He will [...] of this encounter (statuses as of 09/05/2023) [facility] History of Past illness Narrative* Problem Noted Date Diagnosed Date Resolved Date Chest pain 02/16/2019 02/16/2019 Overview: Lab Results Component Value Date HSTNT <6 02/16/2019 HSTNT <6 02/15/2019 TROPT <0.010 02/16/2019 TROPT <0.010 02/16/2019 TROPT <0.010 02/01/[address] [place] [address] Nieves evaluated the patient He will [...] of this encounter (statuses as of 09/08/2023) [facility] History of Past illness Narrative* Problem Noted Date Diagnosed Date Resolved Date Chest pain 02/16/2019 02/16/2019 Overview: Lab Results Component Value Date HSTNT <6 02/16/2019 HSTNT <6 02/15/2019 TROPT <0.010 02/16/2019 TROPT <0.010 02/16/2019 TROPT <0.010 02/01/[address] [place] [address] Nieves evaluated the patient He will [...] of this encounter (statuses as of 09/09/2023) [facility] History of Past illness Narrative* Problem Noted Date Diagnosed Date Resolved Date Chest pain 02/16/2019 02/16/2019 Overview: Lab Results Component Value Date HSTNT <6 02/16/2019 HSTNT <6 02/15/2019 TROPT <0.010 02/16/2019 TROPT <0.010 02/16/2019 TROPT <0.010 02/01/[address] [place] [address] Nieves evaluated the patient He will [...] of this encounter (statuses as of 09/12/2023) [facility] History of Past illness Narrative* Problem Noted Date Diagnosed Date Resolved Date Chest pain 02/16/2019 02/16/2019 Overview: Lab Results Component Value Date HSTNT <6 02/16/2019 HSTNT <6 02/15/2019 TROPT <0.010 02/16/2019 TROPT <0.010 02/16/2019 TROPT <0.010 02/01/[address] [place] [address] Nieves evaluated the patient He will [...] of this encounter (statuses as of 09/13/2023) [facility] History of Past illness Narrative* Problem Noted Date Diagnosed Date Resolved Date Chest pain 02/16/2019 02/16/2019 Overview: Lab Results Component Value Date HSTNT <6 02/16/2019 HSTNT <6 02/15/2019 TROPT <0.010 02/16/2019 TROPT <0.010 02/16/2019 TROPT <0.010 02/01/[address] [place] [address] Nieves evaluated the patient He will [...] of this encounter (statuses as of 09/14/2023) [facility] History of Past illness Narrative* Problem Noted Date Diagnosed Date Resolved Date Chest pain 02/16/2019 02/16/2019 Overview: Lab Results Component Value Date HSTNT <6 02/16/2019 HSTNT <6 02/15/2019 TROPT <0.010 02/16/2019 TROPT <0.010 02/16/2019 TROPT <0.010 02/01/[address] [place] [address] 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 Diaphragm paralysis resolved Cellulitis of foot, left acu te [facility] Work Phone: Evaluation note* Diagnosis Onset Date Resolution Status Lung 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 on CT acut e Bronchiectasis chronic 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 Diaphragm paralysis resolved Cellulitis of foot, left acu te Contusion of great toe, left acute Infection of great toe acute Traumatic avulsion of nail plate of toe acute [facility] Work Phone: Evaluation note* Diagnosis Left leg pain- Primary Pain in limb [facility] Diagnosis Open wound of toe, initial encounter- Primary documented in [facility]* Diagnosis Left leg pain- Primary Pain in limb documented in this encounter [facility] note* Diagnosis Preop examination [Z01.818 (ICD-10-CM)]- [...] Pain in limb documented in [facility]* Diagnosis Preop examination [Z01.818 (ICD-10-CM)]- Primary [...] [facility] Onset Date Resolution Status 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 [facility] Work Phone: Evaluation note* Diagnosis Post-operative state- Primary Other postprocedural status documented in this [facility]* Diagnosis Onset Date Resolution Status 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 TIA (transient ischemic attack) acute [facility] Work Phone: Evaluation note* Diagnosis Onset Date Resolution Status 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 TIA (transient ischemic attack) acute Chest pain acute Essential hypertension acute Sinus pause acute TIA (transient ischemic attack) acute [facility] Work Phone: Evaluation note* Diagnosis Onset Date Resolution Status TIA (transient ischemic attack) acute Chest pain acute Essential hypertension acute Sinus pause acute TIA (transient ischemic attack) acute [facility] Work Phone: Evaluation note* Diagnosis Onset Date Resolution Status TIA (transient ischemic attack) acute Chest pain acute Essential hypertension acute Sinus pause acute TIA (transient ischemic attack) acute Internal impingement of right shoulder acute [facility] Work Phone: Evaluation note* Diagnosis Onset Date Resolution Status Internal impingement of right shoulder acute 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 Essential hypertension acute Sinus pause acute TIA (transient ischemic attack) acute [facility] Work Phone: Evaluation note* Diagnosis Acute right-sided low back pain with right-sided sciatica- Primary [facility] Diagnosis Post-operative state- Primary Other postprocedural status Painful scar Scar condition and fibrosis of skin [facility] Diagnosis Onset Date Resolution Status 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 Essential hypertension acute Sinus pause acute TIA (transient ischemic attack) acute [facility] Work Phone: Evaluation note* Diagnosis Coccyodynia- Primary Other disorder of coccyx documented in this encounter [facility] Diagnosis Left thigh pain- Primary Pain in limb [facility] Diagnosis Left thigh pain Pain in limb documented in this encounter [facility]* Diagnosis ELENA (acute kidney injury) (HCC)- Primary Acute kidney failure, unspecified Impaired fasting glucose documented [facility] this [facility]* Diagnosis Encounter for screening for lung cancer- Primary Former tobacco use Personal history of tobacco use, presenting hazards to health Lung nodules Other nonspecific abnormal finding of lung field [facility]* Diagnosis Abnormal mammogram- Primary Abnormal mammogram, unspecified documented in this encounter [facility]* Diagnosis Coccyodynia Other disorder of coccyx Lumbar spondylosis Lumbosacral spondylosis without myelopathy documented [facility] this encounter [facility]* Diagnosis Onset Date Resolution Status Lung 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 [facility] Work Phone: Evaluation note* Diagnosis Lung nodules Other nonspecific abnormal finding of lung field documented in this encounter [facility]* Diagnosis Abnormal mammogram Abnormal mammogram, unspecified documented [facility] this encounter [facility]* Diagnosis Abnormal mammogram Abnormal mammogram, unspecified documented [facility] this [facility]* Diagnosis Asymptomatic postmenopausal status documented in this encounter [facility]* Diagnosis Encounter for screening mammogram for breast cancer documented in this encounter [facility]* Diagnosis Lumbar spondylosis Lumbosacral spondylosis without myelopathy documented in this encounter [facility]* Diagnosis ELENA (acute kidney injury) (HCC)- Primary Acute kidney failure, unspecified documented [facility] this encounter [facility]* Diagnosis Epigastric pain- Primary Abdominal pain, epigastric Screening for colon cancer Special screening for malignant neoplasms, colon History of colonic polyps Personal history of colonic polyps Blood in stool documented in this encounter [facility]* Diagnosis Rectal bleeding- Primary Hemorrhage of rectum and anus Screening for colon cancer Special screening for malignant neoplasms, colon History of colonic polyps Personal history of colonic polyps Epigastric pain Abdominal pain, epigastric Blood in stool documented in this encounter [facility]* Diagnosis Benign paroxysmal positional vertigo of right ear- Primary documented in this encounter [facility]* Diagnosis Benign paroxysmal vertigo of right ear- Primary Benign paroxysmal positional vertigo Benign paroxysmal positional vertigo of right ear documented in this encounter [facility] note* Diagnosis Benign paroxysmal vertigo of right ear- Primary Benign paroxysmal positional vertigo documented in this encounter [facility]* Diagnosis Acquired hypothyroidism Unspecified hypothyroidism documented in this encounter [facility]* Diagnosis Seasonal allergic rhinitis, unspecified trigger- [...] recurrent episode, moderate documented in this encounter [facility]* Diagnosis Chest pain, unspecified type- Primary [...] calf pain- Primary documented in this encounter [facility]* Diagnosis Chest pain, unspecified type- Primary [...] Right calf pain documented in this encounter [facility] Diagnosis Chest pain, unspecified type- Primary [...] disorder of coccyx documented in this encounter [facility]* Diagnosis Chest pain, unspecified type- Primary [...] cavity and sinuses documented in this encounter [facility]* Diagnosis Chest pain, unspecified type- Primary [...] reflux COVID-19- Primary documented in this encounter [facility]* Diagnosis Chest pain, unspecified type- Primary [...] abnormal blood chemistry documented in this encounter [facility]* Diagnosis Chest pain, unspecified type- Primary [...] for breast cancer documented in this encounter [facility]* Diagnosis Chest pain, unspecified type- Primary [...] hypothyroidism Unspecified hypothyroidism documented in this encounter [facility]* Diagnosis Chest pain, unspecified type- Primary [...] right lower quadrant documented in this encounter [facility] note* Diagnosis Chest pain, unspecified type- [...] right lower quadrant documented in this encounter [facility] note* Diagnosis Chest pain, unspecified type- [...] right lower quadrant documented in this encounter [facility]* Diagnosis Chest pain, unspecified type- Primary [...] right lower quadrant documented in this encounter [facility]* Diagnosis Chest pain, unspecified type- Primary [...] hypothyroidism Unspecified hypothyroidism documented in this encounter [facility] note* Diagnosis Chest pain, unspecified type- [...] gives out, right documented in this encounter [facility] note* Diagnosis Chest pain, unspecified type- [...] hypothyroidism Unspecified hypothyroidism documented in this encounter [facility] note* Diagnosis Chest pain, unspecified type- [...] right lower quadrant documented in this encounter [facility] note* Diagnosis Chest pain, unspecified type- [...] referable to limbs documented in this encounter [facility] note* Diagnosis Chest pain, unspecified type- [...] kidney disease (HCC) documented in this encounter [facility] note* Diagnosis Chest pain, unspecified type- [...] referable to limbs documented [facility] this encounter [facility]* Diagnosis Chest pain, unspecified type- Primary [...] referable to limbs documented in this encounter [facility]* Diagnosis Chest pain, unspecified type- Primary [...] referable to limbs documented in this encounter [facility]* Diagnosis Chest pain, unspecified type- Primary [...] referable to limbs documented in this encounter [facility]* Diagnosis Chest pain, unspecified type- Primary [...] referable to limbs documented in this encounter [facility]* Diagnosis Chest pain, unspecified type- Primary [...] of unspecified site documented in this encounter [facility] note* Diagnosis Chest pain, unspecified type- [...] other respiratory manifestations documented in this encounter [facility] note* Diagnosis Chest pain, unspecified type- [...] hypothyroidism Unspecified hypothyroidism documented in this encounter [facility] note* Diagnosis Chest pain, unspecified type- [...] disorders of liver documented in this encounter [facility] note* Diagnosis Chest pain, unspecified type- [...] right upper quadrant documented in this encounter [facility] note* Diagnosis Chest pain, unspecified type- [...] disorders of liver documented in this encounter [facility] noteNo assessment information availableWMercy [facility] Work Phone: Evaluation note* Diagnosis Chest pain, [...] extremity, initial encounter documented in this encounter [facility] note* Diagnosis Chest pain, unspecified type- [...] extremity, initial encounter documented in this encounter [facility]* Diagnosis Chest pain, unspecified type- Primary [...] recurrent episode, moderate documented in this encounter [facility]* Diagnosis Onset Date Resolution Status Admit Date Chronic hypoxic respiratory failure chronic December 05, 2024 1:54pm Lung nodule chronic December 05 1:54pm 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 December 05, 2024 1:54pm [facility] Work Phone: Hospital Discharge instructions Additional Instructions Follow-up with orthopedics as needed. Take Tylenol and ice the affected areas. [facility] Work Phone: Hospital Discharge instructionsAmbulatory Orders* Orthopedics Location: None Selected * PT Referral Location: None Selected [facility] Work Phone: Hospital Discharge instructions Additional Instructions Follow-up with primary care physician. Return back to the ED if symptoms change or worsen. At this point in time no clear reason for your pain. You received Toradol here in the emergency department. No ibuprofen for 8 hours after that okay to take. Okay for Tylenol.[facility] Work Phone: Hospital Discharge instructionsAdditional Instructions Medication as directed. Follow-up with your primary care provider. You may require physical therapy/Occupational Therapy and other outpatient imaging.[facility] Work Phone: Reason for referral (narrative)* Diagnostic Procedure Only (Routine) - Pending Review Specialty Diagnoses / Procedures Referred By France sanabria Referred To Contact [facility] Diagnoses Left thigh pain Procedures US EXTREMITY MASS/FLUID COLLECTION LEFT Lili Bob PA-C [address] [address] [facility] Referral ID Status Reason Start Date Expiration Date Visits Requested Visits Authorized [id number] Pending Review Auto-Generat ed Referral 12/30/2022 01/29/2024 1 1 [facility] for referral (narrative)* Diagnostic Procedure Only (Routine) - Pending Review Specialty Diagnoses / Procedures Referred By Contac t Referred To Contact [facility] Diagnoses Abnormal mammogram Procedures US BREAST LTD LEFT US BREAST UNI REAL TIME WITH IMAGE LIMITED Tatiana Ronquillo MD [address] [place] [address] [facility] [address] [place] [address] Referral ID Status Reason Start Date Expiration Date Visits Requested Visits Authorized [id number] Pending Review Auto-Generat ed Referral 02/25/2023 03/26/2024 1 1 * Diagnostic Procedure Only (Routine) - Pending Review Specialty Diagnoses / Procedures Referred By France t Referred To Contact [facility] Diagnoses Abnormal mammogram Procedures LUIS DIAGNOSTIC LEFT DIAGNOSTIC MAMMOGRAPHY COMPUTER-AIDED DETCJ UNI Tatiana Ronquillo MD [address] [place] [address] [facility] [address] [place] [address] Referral ID Status Reason Start Date Expiration Date Visits Requested Visits Authorized [id number] Pending Review Auto-Generat ed Referral 02/25/2023 03/26/2024 1 1 [facility] for referral (narrative)* Diagnostic Procedure Only (Routine) - Closed Specialty Diagnoses / Procedures Referred By Contac t Referred To Contact [facility] Diagnoses Encounter for screening mammogram for breast cancer Procedures LUIS SCREENING SCREENING MAMMOGRAPHY BI 2-VIEW BREAST INC CAD Tatiana Ronquillo MD [address] [place] [address] [facility] [address] [place] [address] Referral ID Status Reason Start Date Expiration Date V isits Requested Visits Authorized [id number] Closed Auto-Generate d Referral 01/26/2023 02/25/2024 1 1 [facility] for referral (narrative)* Diagnostic Procedure Only (Routine) - Closed Specialty Diagnoses / Procedures Referred By France sanabria Referred To Contact XR IMAGING Diagnoses Lumbar spondylosis Procedures XR LUMBAR MOTION 4V AP/LAT/ FLEX/EXT RADEX SPINE LUMBOSACRAL MINIMUM 4 VIEWS Neal Guevara MD [address] [facility] [address] [place] [address] [place] [id number] Referral ID Status Reason Start Date Expiration Date V isits Requested Visits Authorized [id number] Closed Auto-Generate d Referral 02/23/2023 03/24/2024 1 1 [facility] for referral (narrative)* Outpatient Procedure (Routine) - Pending Review Specialty Diagnoses / Procedures Referred By France sanabria Referred To Contact [facility] Diagnoses Screening for colon cancer History of colonic polyps Epigastric pain Blood in stool Procedures EGD DIAGNOSTIC ESOPHAGOGASTRODUODENOS COPY TRANSORAL DIAGNOSTIC Isidro Lipscomb MD [address] [facility] [facility] [address] [place] [address] [facility] [address] [place] [address] Referral ID Status Reason Start Date Expiration Date Visits Requested Visits Authorized [id number] Pending Review Auto-Generat ed Referral 08/18/2023 08/17/2024 1 1 * Outpatient Procedure (Routine) - Pending Review Specialty Diagnoses / Procedures Referred By France sanabria Referred To Contact [facility] Diagnoses Screening for colon cancer History of colonic polyps Epigastric pain Blood in stool Procedures COLONOSCOPY DIAGNOSTIC COLONOSCOPY FLX DX W/COLLJ SPEC WHEN Isidro Rudolph MD [address] [address] [facility] [address] [place] [address] Referral ID Status Reason Start Date Expiration Date Visits Requested Visits Authorized [id number] Pending Review Auto-Generat ed Referral 08/18/2023 08/17/2024 1 1 [facility] for referral (narrative)* Outpatient Procedure (Routine) - Closed Specialty Diagnoses / Procedures Referred By France sanabria Referred To Contact Diagnoses Screening for colon cancer History of colonic polyps Epigastric pain Blood in stool Procedures EGD DIAGNOSTIC ESOPHAGOGASTRODUODENOSCOP Y TRANSORAL DIAGNOSTIC Isidro Lipscomb MD [address] [address] [facility] [address] [place] [address] Referral ID Status Reason Start Date Expiration Date V isits Requested Visits Authorized [id number] Closed Auto-Generate d Referral 09/04/2023 12/03/2023 1 1 * Outpatient Procedure (Routine) - Closed Specialty Diagnoses / Procedures Referred By France sanabria Referred To Contact Diagnoses Screening for colon cancer History of colonic polyps Epigastric pain Blood in stool Procedures COLONOSCOPY DIAGNOSTIC COLONOSCOPY FLX DX W/COLLJ SPEC WHEN Isidro Rudolph MD [address] [address] [facility] [address] [place] [address] Referral ID Status Reason Start Date Expiration Date V isits Requested Visits Authorized [id number] Closed Auto-Generate d Referral 09/04/2023 12/03/2023 1 1 [facility] for referral (narrative)* Diagnostic Procedure Only (Urgent) - Closed Specialty Diagnoses / Procedures Referred By France sanabria Referred To Contact [facility] Diagnoses Right calf pain Procedures US DVT LOWER RIGHT DUP-SCAN XTR VEINS UNILATERAL/LIMITED STUDY Yamile Curry DO [address] [place] [address] [place] [address] Referral ID Status Reason Start Date Expiration Date V isits Requested Visits Authorized [id number] Closed Auto-Generate d Referral 01/23/2024 02/20/2025 1 1 [facility] for referral (narrative)* Diagnostic Procedure Only (Routine) - Closed Specialty Diagnoses / Procedures Referred By France sanabria Referred To Contact XR IMAGING Diagnoses Coccyodynia Procedures XR SACRUM/COCCYX 3V AP/LAT RADEX SACRUM & COCCYX MINIMUM 2 VIEWS EricklogShavonne johnston APRN.CNP [address] [place] [address] [place] [address] Referral ID Status Reason Start Date Expiration Date V isits Requested Visits Authorized [id number] Closed Auto-Generate d Referral 12/19/2022 01/18/2024 1 1 [facility] for referral (narrative)* Diagnostic Procedure Only (Routine) - New Request Specialty Diagnoses / Procedures Referred By France sanabria Referred To Contact [facility] Diagnoses Encounter for screening mammogram for breast cancer Procedures LUIS SCREENING W CALI SCREENING DIGITAL BREAST TOMOSYNTHESIS BI SCREENING MAMMOGRAPHY BI 2-VIEW BREAST INC Tatiana Morris MD [address] [place] [address] [facility] [address] [place] [address] Referral ID Status Reason Start Date Expiration Date Visits Requested Visits Authorized [id number] New Request Auto-Generat ed Referral 04/03/2024 05/03/2025 1 1 [facility] for referral (narrative)* Diagnostic Procedure Only (Routine) - Closed Specialty Diagnoses / Procedures Referred By Contac t Referred To Contact [facility] Diagnoses RLQ abdominal mass Procedures US SOFT TISSUE ABDOMEN US ABDOMINAL REAL TIME W/IMAGE LIMITED PodlogShavonne johnston APRN.CNP [address] [place] [address] [place] [address] Referral ID Status Reason Start Date Expiration Date V isits Requested Visits Authorized [id number] Closed Auto-Generate d Referral 04/19/2024 05/19/2025 1 1 [facility] for referral (narrative)* Diagnostic Procedure Only (Routine) - Closed Specialty Diagnoses / Procedures Referred By Contac t Referred To Contact XR IMAGING Diagnoses Falls frequently Knee gives out, right Procedures XR KNEE GENERAL 4V AP BOTH/PA BOTH/LAT/MERC RIGHT RADIOLOGIC EXAM KNEE COMPLETE 4/MORE VIEWS Tatiana Ronquillo MD [address] [place] [address] [place] [id number] Referral ID Status Reason Start Date Expiration Date V isits Requested Visits Authorized [id number] Closed Auto-Generate d Referral 04/29/2024 05/29/2025 1 1 * Physical Therapy (Routine) - Closed Specialty Diagnoses / Procedures Referred By Contac t Referred To Contact [facility] Diagnoses Falls frequently Knee gives out, right Procedures CONSULT TO PHYSICAL THERAPY PHYSICAL THERAPY EVALUATION HIGH COMPLEX 45 MINS Tatiana Ronquillo MD [address] [place] [address] [facility] [address] [place] [address] Referral ID Status Reason Start Date Expiration Date V isits Requested Visits Authorized [id number] Closed Auto-Generate d Referral 04/29/2024 04/29/2025 1 0 [facility] for referral (narrative)* Diagnostic Procedure Only (Urgent) - Closed Specialty Diagnoses / Procedures Referred By Contac t Referred To Contact [facility] Diagnoses Right lower quadrant abdominal mass Procedures US EXTREMITY MASS/FLUID COLLECTION RIGHT Sabine Crowley APRN.CNP [address] [place] [id number] [place] [address] Referral ID Status Reason Start Date Expiration Date V isits Requested Visits Authorized [id number] Closed Auto-Generate d Referral 04/18/2024 05/18/2025 1 1 [facility] for referral (narrative)No reason for referral information availableWMer[facility] Work Phone: Reason for visit Narrative* Diagnostic Procedure Only (Routine) - Closed Specialty Diagnoses / Procedures Referred By Contac t Referred To Contact [facility] Diagnoses Left thigh pain Procedures US EXTREMITY MASS/FLUID COLLECTION LEFT Lili Bob PA-C [address] [facility] [address] [place] [address] [facility] Referral ID Status Reason Start Date Expiration Date V isits Requested Visits Authorized [id number] Closed Auto-Generate d Referral 12/30/2022 01/29/2024 1 1 [facility] for visit Narrative* Diagnostic Procedure Only (Routine) - Closed Specialty Diagnoses / Procedures Referred By Contac t Referred To Contact [facility] Diagnoses Abnormal mammogram Procedures LUIS DIAGNOSTIC LEFT DIAGNOSTIC MAMMOGRAPHY COMPUTER-AIDED DETCJ UNI Tatiana Ronquillo MD [address] [place] [address] [facility] [address] [place] [address] Referral ID Status Reason Start Date Expiration Date V isits Requested Visits Authorized [id number] Closed Auto-Generate d Referral 02/25/2023 03/26/2024 1 1 [facility] for visit Narrative* Diagnostic Procedure Only (Routine) - Authorized Specialty Diagnoses / Procedures Referred By Contac t Referred To Contact [facility] Diagnoses Abnormal mammogram Procedures US BREAST LTD LEFT US BREAST UNI REAL TIME WITH IMAGE LIMITED Tatiana Ronquillo MD [address] [place] [address] [facility] [address] [place] [address] Referral ID Status Reason Start Date Expiration Date Visits Requested Visits Authorized [id number] Authorized Auto-Generat ed Referral 04/12/2024 1 1 [facility] for visit Narrative* Diagnostic Procedure Only (Routine) - Closed Specialty Diagnoses / Procedures Referred By France t Referred To Contact [facility] Diagnoses Encounter for screening mammogram for breast cancer Procedures LUIS SCREENING SCREENING MAMMOGRAPHY BI 2-VIEW BREAST INC CAD Tatiana Ronquillo MD [address] [place] [address] [facility] [address] [place] [address] Referral ID Status Reason Start Date Expiration Date V isits Requested Visits Authorized [id number] Closed Auto-Generate d Referral 01/26/2023 02/25/2024 1 1 [facility] for visit Narrative* Diagnostic Procedure Only (Routine) - Closed Specialty Diagnoses / Procedures Referred By Contac t Referred To Contact XR IMAGING Diagnoses Lumbar spondylosis Procedures XR LUMBAR MOTION 4V AP/LAT/ FLEX/EXT RADEX SPINE LUMBOSACRAL MINIMUM 4 VIEWS eNal Guevara MD [address] [address] [place] [address] Referral ID Status Reason Start Date Expiration Date V isits Requested Visits Authorized [id number] Closed Auto-Generate d Referral 02/23/2023 03/24/2024 1 1 [facility] for visit Narrative* Outpatient Procedure (Routine) - Closed Specialty Diagnoses / Procedures Referred By Contac t Referred To Contact Diagnoses Screening for colon cancer History of colonic polyps Epigastric pain Blood in stool Procedures EGD DIAGNOSTIC ESOPHAGOGASTRODUODENOSCOP Y TRANSORAL DIAGNOSTIC Isidro Lipscomb MD [address] [address] [facility] [address] [place] [address] Referral ID Status Reason Start Date Expiration Date V isits Requested Visits Authorized [id number] Closed Auto-Generate d Referral 09/04/2023 12/03/2023 1 1 [facility] for visit Narrative* Diagnostic Procedure Only (Urgent) - Closed Specialty Diagnoses / Procedures Referred By Contac t Referred To Contact [facility] Diagnoses Right calf pain Procedures US DVT LOWER RIGHT DUP-SCAN XTR VEINS UNILATERAL/LIMITED STUDY Yamile Curry, DO [address] [place] [address] [place] [address] Referral ID Status Reason Start Date Expiration Date V isits Requested Visits Authorized [id number] Closed Auto-Generate d Referral 01/23/2024 02/20/2025 1 1 [facility] for visit Narrative* Diagnostic Procedure Only (Routine) - Closed Specialty Diagnoses / Procedures Referred By Contac t Referred To Contact XR IMAGING Diagnoses Coccyodynia Procedures XR SACRUM/COCCYX 3V AP/LAT RADEX SACRUM & COCCYX MINIMUM 2 VIEWS PodlogarShavonne APRN.CNP [address] [place] [address] [place] [address] Referral ID Status Reason Start Date Expiration Date V isits Requested Visits Authorized [id number] Closed Auto-Generate d Referral 12/19/2022 01/18/2024 1 1 [facility] for visit Narrative* Diagnostic Procedure Only (Routine) - Closed Specialty Diagnoses / Procedures Referred By Contac t Referred To Contact XR IMAGING Diagnoses Falls frequently Knee gives out, right Procedures XR KNEE GENERAL 4V AP BOTH/PA BOTH/LAT/MERC RIGHT RADIOLOGIC EXAM KNEE COMPLETE 4/MORE VIEWS Tatiana Ronquillo MD [address] [place] [address] [place] [address] Referral ID Status Reason Start Date Expiration Date V isits Requested Visits Authorized [id number] Closed Auto-Generate d Referral 04/29/2024 05/29/2025 1 1 [facility] for visit Narrative* MRI/CT (Routine) - Closed Specialty Diagnoses / Procedures Referred By Contac t Referred To Contact MR IMAGING Diagnoses Hepatic cyst Procedures MRI LIVER WO/W IVCON MRI ABDOMEN W/O & W/CONTRAST MATERIAL Podlogar, ROSALINA Marvin.MESSENGER COPY [address] [place] [address] Phone: tel: fax: [place] [address] Referral ID Status Reason Start Date Expiration Date V isits Requested Visits Authorized [id number] Closed Auto-Generate d Referral 08/06/2024 09/05/2025 1 1 [facility] Diagnostic Procedure Only (Urgent) - Closed Specialty Diagnoses / Procedures Referred By Contac t Referred To Contact XR IMAGING Diagnoses Fall (on) (from) other stairs and steps, initial encounter Hematoma of right lower extremity, initial encounter Procedures XR TIBIA FIBULA 2V AP/LAT RIGHT RADIOLOGIC EXAMINATION TIBIA & FIBULA 2 VIEWS Tatiana Ronquillo MD [address] [place] [address] Phone: tel: fax: [place] [id number] Referral ID Status Reason Start Date Expiration Date V isits Requested Visits Authorized [id number] Closed Auto-Generate d Referral 10/23/2024 11/22/2025 1 1 [facility] Summary Purpose Family History No Family History Records Found Relationship Condition Age at Onset Recorded Date/T estee mother Diabetes mellitus Unknown Cardiac disease Unknown Hypertension Unknown High blood cholesterol Unknown father Cardiac disease Unknown Cerebrovascular accident (CVA) Unknown Advance Directives No Advanced Directives Records Found Advance Directive Response Recorded Date/ Time Advance Directives No September 10, 2 014 9:26pm Living Will No July 10 4:00pm Power of Windows Vmware Engineer No July 10, 2021 4:00pm Advance Directive Response Recorded Date/ Time Advance Directives No September 10, 2 014 9:26pm Living Will No September 16, 2021 3:59pm Power of Windows Vmware Engineer No September 16 3:59pm Documents on File Type Date Recorded 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 Advance Directive(s) 11/18/2020 7:50 PM Advance Directive(s) 02/15/2019 10:47 PM Advance Directive(s) 02/01/2019 7:28 AM Advance Directive Response Recorded Date/ Time Advance Directives No September 10, 2 014 9:26pm Living Will No November 01, 2021 2 :27pm Power of Windows Vmware Engineer No November 01, 2021 2:27pm Advance Directive Response Recorded Date/ Time Advance Directives No September 10, 2 014 9:26pm Living Will No December 08, 2021 1:40pm Power of Windows Vmware Engineer No December 08 1:40pm Advance Directive Response Recorded Date/ Time Advance Directives No September 10, 2 014 9:26pm Living Will No December 12, 2021 6:59pm Power of Windows Vmware Engineer No December 12 6:59pm Advance Directive Response Recorded Date/ Time Advance Directives No September 10, 2 014 9:26pm Living Will No December 12, 2021 10:17pm Power of Windows Vmware Engineer No December 12 10:17pm Advance Directive Response Recorded Date/ Time Advance Directives No September 10, 2 014 8:26pm Living Will No April 07, 2 022 3:43pm Power of Windows Vmware Engineer No April 07, 2022 3:43pm Advance Directive Response Recorded Date/ Time Advance Directives No September 10, 2 014 8:26pm Living Will No June 07 5:49pm Power of Windows Vmware Engineer No June 07, 2022 5:49pm Advance Directive Response Recorded Date/ Time Advance Directives No June 10:49am Living Will No July 13, 023 10:49am Power of Windows Vmware Engineer No July 13, 2022 10:49am Advance Directive Response Recorded Date/ Time Advance Directives No June 10:49am Living Will No July 19, 2 023 5:02pm Power of Windows Vmware Engineer No July 19, 2022 5:02pm Advance Directive Response Recorded Date/ Time Advance Directives No June 11:49am Living Will No July 19, 2 023 6:02pm Power of Windows Vmware Engineer No July 19, 2022 6:02pm Advance Directive Response Recorded Date/ Time Name of Medical Power of Windows Vmware Engineer HERMINIO HADDAD September 03, 2022 7:13pm Advance Directives No June 11:49am Living Will Yes September 03, 2022 7:13pm Power of Windows Vmware Engineer Yes September 03 7:13pm Advance Directive Response Recorded Date/ Time Name of Medical Power of Windows Vmware Engineer HERMINIO HADDAD September 03, 2022 7:13pm Advance Directives No June 11:49am Living Will No November 02, 2022 1 1:54pm Power of Windows Vmware Engineer No November 02, 2022 11:54pm Advance Directive Response Recorded Date/ Time Name of Medical Power of Windows Vmware Engineer HERMINIO HADDAD September 03, 2022 7:13pm Advance Directives No June 11:49am Living Will Yes November 16, 2022 7:08pm Power of Windows Vmware Engineer No November 16 7:08pm Advance Directive Response Recorded Date/ Time Name of Medical Power of Windows Vmware Engineer HERMINIO HADDAD September 03, 2022 7:13pm Advance Directives No June 11:49am Living Will No December 01, 2022 3 :44pm Power of Windows Vmware Engineer No December 01, 2022 3:44pm Advance Directive Response Recorded Date/ Time Advance Directives No June 11:49am Living Will No March 13 4:56pm Power of Windows Vmware Engineer No March 13, 2023 4:56pm Advance Directive Response Recorded Date/ Time Name of Medical Power of Windows Vmware Engineer Herminio- S.O August 14, 2023 3:18pm Advance Directives No June 11:49am Living Will Yes August 14, 2023 3:18pm Power of Windows Vmware Engineer Yes August 13 3:18pm Advance Directive Response Recorded Date/ Time Name of Medical Power of Windows Vmware Engineer Herminio- S.O August 14, 2023 3:18pm Advance Directives No June 11:49am Living Will No September 29, 2023 6: 11pm Power of Windows Vmware Engineer No September 29, 2023 6:11pm Advance Directive Response Recorded Date/ Time Living Will No July 19, 025 10:07pm Do you have a Healthcare Power of Windows Vmware Engineer? No July 19, 2024 10:07pm Living Will No July 31, 2024 4:29pm Do you have a Healthcare Power of Windows Vmware Engineer? No July 31, 2024 4:29pm Do you have a Healthcare Power of Windows Vmware Engineer? No September 30, 2024 7:28am Do you have a Healthcare Power of Windows Vmware Engineer? No October 13, 2024 5:52pm Advance Directives No June 11:49am Advance Directive Response Recorded Date/ Time Living Will Yes November 29, 2023 8 :16pm Do you have a Healthcare Power of Windows Vmware Engineer? No November 29, 2023 8:16pm Living Will No July 31, 2024 4:29pm Do you have a Healthcare Power of Windows Vmware Engineer? No July 31, 2024 4:29pm Do you have a Healthcare Power of Windows Vmware Engineer? No September 30, 2024 7:28am Do you have a Healthcare Power of Windows Vmware Engineer? No October 13, 2024 5:52pm Advance Directives No June 11:49am Advance Directive Response Recorded Date/ Time Living Will No February 11, 2024 10:23pm Do you have a Healthcare Power of Windows Vmware Engineer? No February 11, 2024 10:23pm Living Will Yes November 29, 2023 8 :16pm Do you have a Healthcare Power of Windows Vmware Engineer? No November 29, 2023 8:16pm Do you have a Healthcare Power of Windows Vmware Engineer? No September 30, 2024 7:28am Do you have a Healthcare Power of Windows Vmware Engineer? No October 13, 2024 5:52pm Advance Directives No June 11:49am Advance Directive Response Recorded Date/ Time Living Will No February 11, 2024 10:23pm Do you have a Healthcare Power of Windows Vmware Engineer? No February 11, 2024 10:23pm Living Will Yes November 29, 2023 8 :16pm Do you have a Healthcare Power of Windows Vmware Engineer? No November 29, 2023 8:16pm Do you have a Healthcare Power of Windows Vmware Engineer? No September 30, 2024 7:28am Do you have a Healthcare Power of Windows Vmware Engineer? No October 13, 2024 5:52pm Do you have a Healthcare Power of Windows Vmware Engineer? Yes January 19, 2025 4:13pm Advance Directives No June 11:49am Advance Directive Response Recorded Date/ Time Living Will No February 11, 2024 10:23pm Do you have a Healthcare Power of Windows Vmware Engineer? No February 11, 2024 10:23pm Living Will Yes November 29, 2023 8 :16pm Do you have a Healthcare Power of Windows Vmware Engineer? No November 29, 2023 8:16pm Do you have a Healthcare Power of Windows Vmware Engineer? No October 13, 2024 5:52pm Do you have a Healthcare Power of Windows Vmware Engineer? Yes January 19, 2025 4:13pm Do you have a Healthcare Power of Windows Vmware Engineer? No January 31, 2025 7:48pm Advance Directives No June 11:49am Chief Complaint [...] GOLD classificati on December 05, 2024 1:54pm Chief Complaint Admit Date abd September 30, 2024 7:28am ABD PAIN October 13, 2024 5:05p m NICOTINE DEPENDENCE November 18, 2024 12:3 7pm 9 M FU December 05, 2024 1:54 pm back January 19, 2025 3: 33pm Chief Complaint Admit Date ABD PAIN October 13, 2024 5:05p m NICOTINE DEPENDENCE November 18, 2024 12:3 7pm 9 M FU December 05, 2024 1:54 pm back January 19, 2025 3: 33pm FALL January 31, 2025 5:53pm Health Concerns Infection Onset Date Last Indicated Resolved Time COVID-19 Rule-Out 09/28/2021 09/28/2021 09/29/2021 1:51 AM EDT Reason for Referral Specialty Diagnoses / Procedures Referred By [place] sanabria Referred To Contact Pain Management Diagnoses Coccyodynia Procedures CONSULT TO PAIN MGT OFFICE/OUTPATIENT [facility] MDM 60-74 MINUTES Podlogar, Shavonne IN HOME SALES CONSULTANT.MESSENGER COPY [address] [place] [address] Referral ID Status Reason Start Date Expiration Date Visits Requested Visits Authorized [id number] Authorized PCP Requested Referral 12/23/2022 12/23/2023 1 1 Specialty Diagnoses / Procedures Referred By Contac t Referred To Contact CT IMAGING Diagnoses Lung nodules Procedures CT CHEST WO IVCON DIAGNOSTIC COMPUTED TOMOGRAPHY THORAX W/O CNTRST Barrett Falk, IN HOME SALES CONSULTANT.MESSENGER COPY [address] [place] [address] [place] [address] Referral ID Status Reason Start Date Expiration Date Visits Requested Visits Authorized [id number] Authorized Auto-Generat ed Referral 02/07/2023 03/08/2024 1 1 Referral ID Status Reason Start Date Expiration Date V isits Requested Visits Authorized [id number] Closed Auto-Generate d Referral 02/07/2023 03/08/2024 1 1 Specialty Diagnoses / Procedures Referred By Contac t Referred To Contact [facility] Diagnoses Benign paroxysmal positional vertigo of right ear Procedures CONSULT TO PHYSICAL THERAPY PHYSICAL THERAPY EVALUATION HIGH COMPLEX 45 MINS Tatiana Ronquillo MD [address] [place] [address] [facility] [place] [address] [place] [address] Referral ID Status Reason Start Date Expiration Date Visits Requested Visits Authorized [id number] Authorized Auto-Generat ed Referral 05/29/2023 05/28/2024 99 99 Specialty Diagnoses / Procedures Referred By Contac t Referred To Contact CT IMAGING Diagnoses Nausea Right lower quadrant abdominal pain Procedures CT ABD/PEL W IVCON CT ABD & PELVIS W/CONTRAST Sabine Crowley, IN HOME SALES CONSULTANT.MESSENGER COPY [address] [place] [address] [place] [address] Referral ID Status Reason Start Date Expiration Date V isits Requested Visits Authorized [id number] Closed Auto-Generate d Referral 04/18/2024 05/18/2025 1 1 Additional Source Comments INFORMATION SOURCE (unrecogn ized section and content) DATE CREATED AUTHOR 03/08/2019 [facility] DATE CREATED AUTHOR AUTHOR'S ORGANIZ ATION 03/18/2023 [facility] DATE CREATED AUTHOR AUTHOR'S ORGANIZ ATION 04/21/2024 [facility] DATE CREATED AUTHOR AUTHOR'S ORGANIZ ATION 05/20/2024 [facility] DATE CREATED AUTHOR AUTHOR'S ORGANIZ ATION 02/15/2025 [facility] DATE CREATED AUTHOR AUTHOR'S ORGANIZ ATION 04/05/2025 [facility] Goals (unrecognized section and content) Goals may [...] or prosecute any alcohol or drug abuse patient.[facility] the event this information is protected by the Federal Confidentiality of Alcohol and Drug Abuse Patient Records regulations: The Federal rules restrict any use of the information to criminally investigate or prosecute any alcohol or drug abuse patient.[facility] Campus[facility] the event this information is protected by the Federal Confidentiality of Alcohol and Drug Abuse Patient Records regulations: The Federal rules restrict any use of the information to criminally investigate or prosecute any alcohol or drug abuse patient.[facility] Campus[facility] the event this information is protected by the Federal Confidentiality of Alcohol and Drug Abuse Patient Records regulations: The Federal rules restrict any use of the information to criminally investigate or prosecute any alcohol or drug abuse patient.[facility] Campus[facility] the event this information is protected by the Federal Confidentiality of Alcohol and Drug Abuse Patient Records regulations: The Federal rules restrict any use of the information to criminally investigate or prosecute any alcohol or drug abuse patient.[facility] CampusIn the event this information is protected by the Federal Confidentiality of Alcohol and Drug Abuse Patient Records regulations: The Federal rules restrict any use of the information to criminally investigate or prosecute any alcohol or drug abuse patient.[facility] CampusIn the event this information is protected by the Federal Confidentiality of Alcohol and Drug Abuse Patient Records regulations: The Federal rules restrict any use of the information to criminally investigate or prosecute any alcohol or drug abuse patient.[facility] CampusIn the event this information is protected by the Federal Confidentiality of Alcohol and Drug Abuse Patient Records regulations: The Federal rules restrict any use of the information to criminally investigate or prosecute any alcohol or drug abuse patient.[facility] CampusIn the event this information is protected by the Federal Confidentiality of Alcohol and Drug Abuse Patient Records regulations: The Federal rules restrict any use of the information to criminally investigate or prosecute any alcohol or drug abuse patient.[facility] CampusIn the event this information is protected by the Federal Confidentiality of Alcohol and Drug Abuse Patient Records regulations: The Federal rules restrict any use of the information to criminally investigate or prosecute any alcohol or drug abuse patient.[facility] CampusIn the event this information is protected by the Federal Confidentiality of Alcohol and Drug Abuse Patient Records regulations: The Federal rules restrict any use of the information to criminally investigate or prosecute any alcohol or drug abuse patient.[facility] CampusIn the event this information is protected by the Federal Confidentiality of Alcohol and Drug Abuse Patient Records regulations: The Federal rules restrict any use of the information to criminally investigate or prosecute any alcohol or drug abuse patient.[facility] CampusIn the event this information is protected by the Federal Confidentiality of Alcohol and Drug Abuse Patient Records regulations: The Federal rules restrict any use of the information to criminally investigate or prosecute any alcohol or drug abuse patient.[facility] CampusIn the event this information is protected by the Federal Confidentiality of Alcohol and Drug Abuse Patient Records regulations: The Federal rules restrict any use of the information to criminally investigate or prosecute any alcohol or drug abuse patient.[facility] CampusIn the event this information is protected by the Federal Confidentiality of Alcohol and Drug Abuse Patient Records regulations: The Federal rules restrict any use of the information to criminally investigate or prosecute any alcohol or drug abuse patient.[facility] CampusIn the event this information is protected by the Federal Confidentiality of Alcohol and Drug Abuse Patient Records regulations: The Federal rules restrict any use of the information to criminally investigate or prosecute any alcohol or drug abuse patient.[facility] CampusIn the event this information is protected by the Federal Confidentiality of Alcohol and Drug Abuse Patient Records regulations: The Federal rules restrict any use of the information to criminally investigate or prosecute any alcohol or drug abuse patient.[facility] CampusIn the event this information is protected by the Federal Confidentiality of Alcohol and Drug Abuse Patient Records regulations: The Federal rules restrict any use of the information to criminally investigate or prosecute any alcohol or drug abuse patient.[facility] CampusIn the event this information is protected by the Federal Confidentiality of Alcohol and Drug Abuse Patient Records regulations: The Federal rules restrict any use of the information to criminally investigate or prosecute any alcohol or drug abuse patient.[facility] CampusIn the event this information is protected by the Federal Confidentiality of Alcohol and Drug Abuse Patient Records regulations: The Federal rules restrict any use of the information to criminally investigate or prosecute any alcohol or drug abuse patient.[facility] CampusIn the event this information is protected by the Federal Confidentiality of Alcohol and Drug Abuse Patient Records regulations: The Federal rules restrict any use of the information to criminally investigate or prosecute any alcohol or drug abuse patient.[facility] CampusIn the event this information is protected by the Federal Confidentiality of Alcohol and Drug Abuse Patient Records regulations: The Federal rules restrict any use of the information to criminally investigate or prosecute any alcohol or drug abuse patient.[facility] CampusIn the event this information is protected by the Federal Confidentiality of Alcohol and Drug Abuse Patient Records regulations: The Federal rules restrict any use of the information to criminally investigate or prosecute any alcohol or drug abuse patient.[facility] CampusIn the event this information is protected by the Federal Confidentiality of Alcohol and Drug Abuse Patient Records regulations: The Federal rules restrict any use of the information to criminally investigate or prosecute any alcohol or drug abuse patient.[facility] CampusIn the event this information is protected by the Federal Confidentiality of Alcohol and Drug Abuse Patient Records regulations: The Federal rules restrict any use of the information to criminally investigate or prosecute any alcohol or drug abuse patient.[facility] CampusIn the event this information is protected by the Federal Confidentiality of Alcohol and Drug Abuse Patient Records regulations: The Federal rules restrict any use of the information to criminally investigate or prosecute any alcohol or drug abuse patient.[facility] CampusIn the event this information is protected by the Federal Confidentiality of Alcohol and Drug Abuse Patient Records regulations: The Federal rules restrict any use of the information to criminally investigate or prosecute any alcohol or drug abuse patient.[facility] CampusIn the event this information is protected by the Federal Confidentiality of Alcohol and Drug Abuse Patient Records regulations: The Federal rules restrict any use of the information to criminally investigate or prosecute any alcohol or drug abuse patient.[facility] CampusIn the event this information is protected by the Federal Confidentiality of Alcohol and Drug Abuse Patient Records regulations: The Federal rules restrict any use of the information to criminally investigate or prosecute any alcohol or drug abuse patient.[facility] CampusIn the event this information is protected by the Federal Confidentiality of Alcohol and Drug Abuse Patient Records regulations: The Federal rules restrict any use of the information to criminally investigate or prosecute any alcohol or drug abuse patient.[facility] CampusIn the event this information is protected by the Federal Confidentiality of Alcohol and Drug Abuse Patient Records regulations: The Federal rules restrict any use of the information to criminally investigate or prosecute any alcohol or drug abuse patient.[facility] CampusIn the event this information is protected by the Federal Confidentiality of Alcohol and Drug Abuse Patient Records regulations: The Federal rules restrict any use of the information to criminally investigate or prosecute any alcohol or drug abuse patient.[facility] CampusIn the event this information is protected by the Federal Confidentiality of Alcohol and Drug Abuse Patient Records regulations: The Federal rules restrict any use of the information to criminally investigate or prosecute any alcohol or drug abuse patient.[facility] CampusIn the event this information is protected by the Federal Confidentiality of Alcohol and Drug Abuse Patient Records regulations: The Federal rules restrict any use of the information to criminally investigate or prosecute any alcohol or drug abuse patient.[facility] CampusIn the event this information is protected by the Federal Confidentiality of Alcohol and Drug Abuse Patient Records regulations: The Federal rules restrict any use of the information to criminally investigate or prosecute any alcohol or drug abuse patient.[facility] CampusIn the event this information is protected by the Federal Confidentiality of Alcohol and Drug Abuse Patient Records regulations: The Federal rules restrict any use of the information to criminally investigate or prosecute any alcohol or drug abuse patient.[facility] CampusIn the event this information is protected by the Federal Confidentiality of Alcohol and Drug Abuse Patient Records regulations: The Federal rules restrict any use of the information to criminally investigate or prosecute any alcohol or drug abuse patient.[facility] CampusIn the event this information is protected by the Federal Confidentiality of Alcohol and Drug Abuse Patient Records regulations: The Federal rules restrict any use of the information to criminally investigate or prosecute any alcohol or drug abuse patient.[facility] CampusIn the event this information is protected by the Federal Confidentiality of Alcohol and Drug Abuse Patient Records regulations: The Federal rules restrict any use of the information to criminally investigate or prosecute any alcohol or drug abuse patient.[facility] CampusIn the event this information is protected by the Federal Confidentiality of Alcohol and Drug Abuse Patient Records regulations: The Federal rules restrict any use of the information to criminally investigate or prosecute any alcohol or drug abuse patient.[facility] CampusIn the event this information is protected by the Federal Confidentiality of Alcohol and Drug Abuse Patient Records regulations: The Federal rules restrict any use of the information to criminally investigate or prosecute any alcohol or drug abuse patient.[facility] CampusIn the event this information is protected by the Federal Confidentiality of Alcohol and Drug Abuse Patient Records regulations: The Federal rules restrict any use of the information to criminally investigate or prosecute any alcohol or drug abuse patient.[facility] CampusIn the event this information is protected by the Federal Confidentiality of Alcohol and Drug Abuse Patient Records regulations: The Federal rules restrict any use of the information to criminally investigate or prosecute any alcohol or drug abuse patient.[facility] CampusIn the event this information is protected by the Federal Confidentiality of Alcohol and Drug Abuse Patient Records regulations: The Federal rules restrict any use of the information to criminally investigate or prosecute any alcohol or drug abuse patient.[facility] CampusIn the event this information is protected by the Federal Confidentiality of Alcohol and Drug Abuse Patient Records regulations: The Federal rules restrict any use of the information to criminally investigate or prosecute any alcohol or drug abuse patient.[facility] CampusIn the event this information is protected by the Federal Confidentiality of Alcohol and Drug Abuse Patient Records regulations: The Federal rules restrict any use of the information to criminally investigate or prosecute any alcohol or drug abuse patient.[facility] CampusIn the event this information is protected by the Federal Confidentiality of Alcohol and Drug Abuse Patient Records regulations: The Federal rules restrict any use of the information to criminally investigate or prosecute any alcohol or drug abuse patient.[facility] CampusIn the event this information is protected by the Federal Confidentiality of Alcohol and Drug Abuse Patient Records regulations: The Federal rules restrict any use of the information to criminally investigate or prosecute any alcohol or drug abuse patient.[facility] CampusIn the event this information is protected by the Federal Confidentiality of Alcohol and Drug Abuse Patient Records regulations: The Federal rules restrict any use of the information to criminally investigate or prosecute any alcohol or drug abuse patient.[facility] CampusIn the event this information is protected by the Federal Confidentiality of Alcohol and Drug Abuse Patient Records regulations: The Federal rules restrict any use of the information to criminally investigate or prosecute any alcohol or drug abuse patient.[facility] CampusIn the event this information is protected by the Federal Confidentiality of Alcohol and Drug Abuse Patient Records regulations: The Federal rules restrict any use of the information to criminally investigate or prosecute any alcohol or drug abuse patient.[facility] CampusIn the event this information is protected by the Federal Confidentiality of Alcohol and Drug Abuse Patient Records regulations: The Federal rules restrict any use of the information to criminally investigate or prosecute any alcohol or drug abuse patient.[facility] CampusIn the event this information is protected by the Federal Confidentiality of Alcohol and Drug Abuse Patient Records regulations: The Federal rules restrict any use of the information to criminally investigate or prosecute any alcohol or drug abuse patient.[facility] CampusIn the event this information is protected by the Federal Confidentiality of Alcohol and Drug Abuse Patient Records regulations: The Federal rules restrict any use of the information to criminally investigate or prosecute any alcohol or drug abuse patient.[facility] CampusIn the event this information is protected by the Federal Confidentiality of Alcohol and Drug Abuse Patient Records regulations: The Federal rules restrict any use of the information to criminally investigate or prosecute any alcohol or drug abuse patient.[facility] CampusIn the event this information is protected by the Federal Confidentiality of Alcohol and Drug Abuse Patient Records regulations: The Federal rules restrict any use of the information to criminally investigate or prosecute any alcohol or drug abuse patient.[facility] CampusIn the event this information is protected by the Federal Confidentiality of Alcohol and Drug Abuse Patient Records regulations: The Federal rules restrict any use of the information to criminally investigate or prosecute any alcohol or drug abuse patient.[facility] CampusIn the event this information is protected by the Federal Confidentiality of Alcohol and Drug Abuse Patient Records regulations: The Federal rules restrict any use of the information to criminally investigate or prosecute any alcohol or drug abuse patient.[facility] CampusIn the event this information is protected by the Federal Confidentiality of Alcohol and Drug Abuse Patient Records regulations: The Federal rules restrict any use of the information to criminally investigate or prosecute any alcohol or drug abuse patient.[facility] CampusIn the event this information is protected by the Federal Confidentiality of Alcohol and Drug Abuse Patient Records regulations: The Federal rules restrict any use of the information to criminally investigate or prosecute any alcohol or drug abuse patient.[facility] CampusIn the event this information is protected by the Federal Confidentiality of Alcohol and Drug Abuse Patient Records regulations: The Federal rules restrict any use of the information to criminally investigate or prosecute any alcohol or drug abuse patient.[facility] CampusIn the event this information is protected by the Federal Confidentiality of Alcohol and Drug Abuse Patient Records regulations: The Federal rules restrict any use of the information to criminally investigate or prosecute any alcohol or drug abuse patient.[facility] CampusIn the event this information is protected by the Federal Confidentiality of Alcohol and Drug Abuse Patient Records regulations: The Federal rules restrict any use of the information to criminally investigate or prosecute any alcohol or drug abuse patient.[facility] CampusIn the event this information is protected by the Federal Confidentiality of Alcohol and Drug Abuse Patient Records regulations: The Federal rules restrict any use of the information to criminally investigate or prosecute any alcohol or drug abuse patient.[facility] CampusIn the event this information is protected by the Federal Confidentiality of Alcohol and Drug Abuse Patient Records regulations: The Federal rules restrict any use of the information to criminally investigate or prosecute any alcohol or drug abuse patient.[facility] CampusIn the event this information is protected by the Federal Confidentiality of Alcohol and Drug Abuse Patient Records regulations: The Federal rules restrict any use of the information to criminally investigate or prosecute any alcohol or drug abuse patient.[facility] CampusIn the event this information is protected by the Federal Confidentiality of Alcohol and Drug Abuse Patient Records regulations: The Federal rules restrict any use of the information to criminally investigate or prosecute any alcohol or drug abuse patient.[facility] CampusIn the event this information is protected by the Federal Confidentiality of Alcohol and Drug Abuse Patient Records regulations: The Federal rules restrict any use of the information to criminally investigate or prosecute any alcohol or drug abuse patient.[facility] CampusIn the event this information is protected by the Federal Confidentiality of Alcohol and Drug Abuse Patient Records regulations: The Federal rules restrict any use of the information to criminally investigate or prosecute any alcohol or drug abuse patient.[facility] CampusIn the event this information is protected by the Federal Confidentiality of Alcohol and Drug Abuse Patient Records regulations: The Federal rules restrict any use of the information to criminally investigate or prosecute any alcohol or drug abuse patient.[facility] CampusIn the event this information is protected by the Federal Confidentiality of Alcohol and Drug Abuse Patient Records regulations: The Federal rules restrict any use of the information to criminally investigate or prosecute any alcohol or drug abuse patient.[facility] CampusIn the event this information is protected by the Federal Confidentiality of Alcohol and Drug Abuse Patient Records regulations: The Federal rules restrict any use of the information to criminally investigate or prosecute any alcohol or drug abuse patient.[facility] CampusIn the event this information is protected by the Federal Confidentiality of Alcohol and Drug Abuse Patient Records regulations: The Federal rules restrict any use of the information to criminally investigate or prosecute any alcohol or drug abuse patient.[facility] CampusIn the event this information is protected by the Federal Confidentiality of Alcohol and Drug Abuse Patient Records regulations: The Federal rules restrict any use of the information to criminally investigate or prosecute any alcohol or drug abuse patient.[facility] CampusIn the event this information is protected by the Federal Confidentiality of Alcohol and Drug Abuse Patient Records regulations: The Federal rules restrict any use of the information to criminally investigate or prosecute any alcohol or drug abuse patient.[facility] CampusIn the event this information is protected by the Federal Confidentiality of Alcohol and Drug Abuse Patient Records regulations: The Federal rules restrict any use of the information to criminally investigate or prosecute any alcohol or drug abuse patient.[facility] CampusIn the event this information is protected by the Federal Confidentiality of Alcohol and Drug Abuse Patient Records regulations: The Federal rules restrict any use of the information to criminally investigate or prosecute any alcohol or drug abuse patient.[facility] CampusIn the event this information is protected by the Federal Confidentiality of Alcohol and Drug Abuse Patient Records regulations: The Federal rules restrict any use of the information to criminally investigate or prosecute any alcohol or drug abuse patient.[facility] CampusIn the event this information is protected by the Federal Confidentiality of Alcohol and Drug Abuse Patient Records regulations: The Federal rules restrict any use of the information to criminally investigate or prosecute any alcohol or drug abuse patient.[facility] CampusIn the event this information is protected by the Federal Confidentiality of Alcohol and Drug Abuse Patient Records regulations: The Federal rules restrict any use of the information to criminally investigate or prosecute any alcohol or drug abuse patient.[facility] CampusIn the event this information is protected by the Federal Confidentiality of Alcohol and Drug Abuse Patient Records regulations: The Federal rules restrict any use of the information to criminally investigate or prosecute any alcohol or drug abuse patient.[facility] CampusIn the event this information is protected by the Federal Confidentiality of Alcohol and Drug Abuse Patient Records regulations: The Federal rules restrict any use of the information to criminally investigate or prosecute any alcohol or drug abuse patient.[facility] CampusIn the event this information is protected by the Federal Confidentiality of Alcohol and Drug Abuse Patient Records regulations: The Federal rules restrict any use of the information to criminally investigate or prosecute any alcohol or drug abuse patient.[facility] CampusIn the event this information is protected by the Federal Confidentiality of Alcohol and Drug Abuse Patient Records regulations: The Federal rules restrict any use of the information to criminally investigate or prosecute any alcohol or drug abuse patient.[facility] CampusIn the event this information is protected by the Federal Confidentiality of Alcohol and Drug Abuse Patient Records regulations: The Federal rules restrict any use of the information to criminally investigate or prosecute any alcohol or drug abuse patient.[facility] CampusIn the event this information is protected by the Federal Confidentiality of Alcohol and Drug Abuse Patient Records regulations: The Federal rules restrict any use of the information to criminally investigate or prosecute any alcohol or drug abuse patient.[facility] CampusIn the event this information is protected by the Federal Confidentiality of Alcohol and Drug Abuse Patient Records regulations: The Federal rules restrict any use of the information to criminally investigate or prosecute any alcohol or drug abuse patient.[facility] CampusIn the event this information is protected by the Federal Confidentiality of Alcohol and Drug Abuse Patient Records regulations: The Federal rules restrict any use of the information to criminally investigate or prosecute any alcohol or drug abuse patient.[facility] CampusIn the event this information is protected by the Federal Confidentiality of Alcohol and Drug Abuse Patient Records regulations: The Federal rules restrict any use of the information to criminally investigate or prosecute any alcohol or drug abuse patient.[facility] CampusIn the event this information is protected by the Federal Confidentiality of Alcohol and Drug Abuse Patient Records regulations: The Federal rules restrict any use of the information to criminally investigate or prosecute any alcohol or drug abuse patient.[facility] CampusIn the event this information is protected by the Federal Confidentiality of Alcohol and Drug Abuse Patient Records regulations: The Federal rules restrict any use of the information to criminally investigate or prosecute any alcohol or drug abuse patient.[facility] CampusIn the event this information is protected by the Federal Confidentiality of Alcohol and Drug Abuse Patient Records regulations: The Federal rules restrict any use of the information to criminally investigate or prosecute any alcohol or drug abuse patient.[facility] CampusIn the event this information is protected by the Federal Confidentiality of Alcohol and Drug Abuse Patient Records regulations: The Federal rules restrict any use of the information to criminally investigate or prosecute any alcohol or drug abuse patient.[facility] CampusIn the event this information is protected by the Federal Confidentiality of Alcohol and Drug Abuse Patient Records regulations: The Federal rules restrict any use of the information to criminally investigate or prosecute any alcohol or drug abuse patient.[facility] CampusIn the event this information is protected by the Federal Confidentiality of Alcohol and Drug Abuse Patient Records regulations: The Federal rules restrict any use of the information to criminally investigate or prosecute any alcohol or drug abuse patient.[facility] CampusIn the event this information is protected by the Federal Confidentiality of Alcohol and Drug Abuse Patient Records regulations: The Federal rules restrict any use of the information to criminally investigate or prosecute any alcohol or drug abuse patient.[facility] CampusIn the event this information is protected by the Federal Confidentiality of Alcohol and Drug Abuse Patient Records regulations: The Federal rules restrict any use of the information to criminally investigate or prosecute any alcohol or drug abuse patient.[facility] CampusIn the event this information is protected by the Federal Confidentiality of Alcohol and Drug Abuse Patient Records regulations: The Federal rules restrict any use of the information to criminally investigate or prosecute any alcohol or drug abuse patient.[facility] CampusIn the event this information is protected by the Federal Confidentiality of Alcohol and Drug Abuse Patient Records regulations: The Federal rules restrict any use of the information to criminally investigate or prosecute any alcohol or drug abuse patient.[facility] CampusIn the event this information is protected by the Federal Confidentiality of Alcohol and Drug Abuse Patient Records regulations: The Federal rules restrict any use of the information to criminally investigate or prosecute any alcohol or drug abuse patient.[facility] CampusIn the event this information is protected by the Federal Confidentiality of Alcohol and Drug Abuse Patient Records regulations: The Federal rules restrict any use of the information to criminally investigate or prosecute any alcohol or drug abuse patient.[facility] CampusIn the event this information is protected by the Federal Confidentiality of Alcohol and Drug Abuse Patient Records regulations: The Federal rules restrict any use of the information to criminally investigate or prosecute any alcohol or drug abuse patient.[facility] CampusIn the event this information is protected by the Federal Confidentiality of Alcohol and Drug Abuse Patient Records regulations: The Federal rules restrict any use of the information to criminally investigate or prosecute any alcohol or drug abuse patient.[facility] CampusIn the event this information is protected by the Federal Confidentiality of Alcohol and Drug Abuse Patient Records regulations: The Federal rules restrict any use of the information to criminally investigate or prosecute any alcohol or drug abuse patient.[facility] CampusIn the event this information is protected by the Federal Confidentiality of Alcohol and Drug Abuse Patient Records regulations: The Federal rules restrict any use of the information to criminally investigate or prosecute any alcohol or drug abuse patient.[facility] CampusIn the event this information is protected by the Federal Confidentiality of Alcohol and Drug Abuse Patient Records regulations: The Federal rules restrict any use of the information to criminally investigate or prosecute any alcohol or drug abuse patient.[facility] CampusIn the event this information is protected by the Federal Confidentiality of Alcohol and Drug Abuse Patient Records regulations: The Federal rules restrict any use of the information to criminally investigate or prosecute any alcohol or drug abuse patient.[facility] CampusIn the event this information is protected by the Federal Confidentiality of Alcohol and Drug Abuse Patient Records regulations: The Federal rules restrict any use of the information to criminally investigate or prosecute any alcohol or drug abuse patient.[facility] Reason for Visit (unrecogniz ed section and content) Reason Comments PT Discharge Specialty Diagnoses / Procedures Referred By Contac t Referred To Contact Physical Therapy / PHYSICAL THERAPY Diagnoses Falls frequently [R29.6] Knee gives out, right [M25.361 Procedures EST RS PT GAIT Tatiana Ronquillo MD [address] [place] [address] Yamile Cordero PT Referral ID Status Reason Start Date Expiration Date V isits Requested Visits Authorized [id number] Authorized 05/29/2024 05/28/2025 99 99 Reason Comments Physical Therapy Reason Comments PT Eval Patient Education Specialty Diagnoses / Procedures Referred By Contac t Referred To Contact [facility] Diagnoses Benign paroxysmal positional vertigo of right ear Procedures CONSULT TO PHYSICAL THERAPY PHYSICAL THERAPY EVALUATION HIGH COMPLEX 45 MINS Tatiana Ronquillo MD [address] [place] [address] [facility] [place] [address] [place] [address] Referral ID Status Reason Start Date Expiration Date Visits Requested Visits Authorized [id number] Authorized Auto-Generat ed Referral 05/29/2023 05/28/2024 99 99 Reason Comments Results Reason Comments Refill Request Reason Comments New Patient Evaluation Specialty Diagnoses / Procedures Referred By [place] t Referred To Contact Plastic Surgery / PLASTIC SURGERY Diagnoses NEW painful indent/bruise/closed wound on her leg Procedures NEW DPSI MD Kayleigh Rviers, Jeff Field MD [address] [address] Referral ID Status Reason Start Date Expiration Date Visits Re quested Visits Authorized [id number] Closed 12/28/2021 05/28/2022 1 1 Reason Comments Follow Up Nail Avulsion Specialty Diagnoses / Procedures Referred By [place] t Referred To Contact Podiatry / PODIATRY Diagnoses [facility] follow up Procedures GREG EST PODI Lj De Santiago [address] [place] [address] Lj De Santiago [address] [place] [address] Referral ID Status Reason Start Date Expiration Date Visits Re quested Visits Authorized [id number] Closed 12/29/2021 05/28/2022 1 1 Reason Comments Post Op Reason Comments Other Reason Comments UTI Reason Comments Established Patient Follow-Up Reason Comments Results Reason Comments Established Patient Reason Comments Medication Problem Reason Comments Consult lung cancer screenin g Specialty Diagnoses / Procedures [facility] Ref[facility] To Contact Diagnoses Encounter for screening for lung cancer Procedures CONSULT LUNG CANCER SCREENING CLINIC Tatiana Ronquillo MD [address] [place] [address] Referral ID Status Reason Start Date Expiration Date Visits Requested Visits Authorized [id number] Ref Not Required PCP Requested Referral 01/26/2023 04/26/2023 1 1 Reason Comments Results Medication Problem Reason Comments Results Reason Comments PT Eval Specialty Diagnoses / Procedures Referred By Contac t Referred To Contact [facility] Diagnoses Coccyodynia Lumbar spondylosis Procedures CONSULT TO PHYSICAL THERAPY PHYSICAL THERAPY EVALUATION HIGH COMPLEX 45 MINS Neal Guevara MD [address] [facility] [address] [place] [address] [facility] [place] [address] [id number] Referral ID Status Reason Start Date Expiration Date Visits Requested Visits Authorized [id number] Pending Review Auto-Generat ed Referral 02/23/2023 02/23/2024 1 1 Reason Comments Medication Problem Fosamax Reason Onset Date Comments Refill Request 03/03/2023 Reason Comments Medication Question Reason Comments Medication Problem [facility] lo cked-unable to shredder picker Reason Onset Date Comments Refill Request 03/15/[address] Specialty Diagnoses / Procedures Referred By Contac t Referred To Contact CT IMAGING Diagnoses Lung nodules Procedures CT CHEST WO IVCON DIAGNOSTIC COMPUTED TOMOGRAPHY THORAX W/O CNTRST Barrett Falk, IN HOME SALES CONSULTANT.MESSENGER COPY [address] [place] [address] [id number] Referral ID Status Reason Start Date Expiration Date V isits Requested Visits Authorized [id number] Closed Auto-Generate d Referral 02/07/2023 03/08/2024 1 1 Reason Onset Date Comments Refill Request 05/12/2023 Reason Comments Radiology US Specialty Diagnoses / Procedures Referred By Contac t Referred To Contact US IMAGING Diagnoses Stage 3a chronic kidney disease (HCC) Procedures US KIDNEY/BLADDER US RETROPERITONEAL REAL TIME W/IMAGE COMPLETE Tatiana Ronquillo MD [address] [place] [address] [place] [id number] Referral ID Status Reason Start Date Expiration Date V isits Requested Visits Authorized [id number] Closed Auto-Generate d Referral 07/28/2023 08/26/2024 1 1 Reason Comments Balance Reason Comments Consult [facility] Specialty Diagnoses / Procedures Referred By Contac t Referred To Contact General Surgery Diagnoses Screening for colon cancer History of colonic polyps Procedures CONSULT TO GENERAL SURGERY OFFICE/OUTPATIENT NEW HIGH MDM 60 MINUTES Tatiana Ronquillo MD [address] [place] [address] Referral ID Status Reason Start Date Expiration Date V isits Requested Visits Authorized [id number] Closed PCP Requested Referral 07/27/2023 07/26/2024 1 [...] Date Comments Population Health Navigation Outreach 01/24/[address] [facility] Reason Onset Date Comments Refill Request 01/11/2024 Reason Comments GI PRE OP CALL Reason Comments 01/08/2024 COLON/EGD DIAGNOSTIC Reason Onset Date Comments Refill Request 04/05/2024 Reason Onset Date Comments Refill Request 04/12/2024 Reason Comments Lump right groin Reason Comments Mass Lower abdomen X 1 we ek Specialty Diagnoses / Procedures Referred By Contac t Referred To Contact CT IMAGING Diagnoses Nausea Right lower quadrant abdominal pain Procedures CT ABD/PEL W IVCON CT ABD & PELVIS W/CONTRAST Sabine Crowley, IN HOME SALES CONSULTANT.MESSENGER COPY [address] [place] [address] [place] [id number] Referral ID Status Reason Start Date Expiration Date V isits Requested Visits Authorized [id number] Closed Auto-Generate d Referral 04/18/2024 05/18/2025 1 1 Reason Comments Orders Specialty Diagnoses / Procedures Referred By Contac t Referred To Contact US IMAGING Diagnoses Right lower quadrant abdominal mass Procedures US EXTREMITY MASS/FLUID COLLECTION RIGHT Sabine Crowley, IN HOME SALES CONSULTANT.MESSENGER COPY [address] [place] [address] [place] [id number] Referral ID Status Reason Start Date Expiration Date V isits Requested Visits Authorized [id number] Closed Auto-Generate d Referral 04/18/2024 05/18/2025 1 1 Reason Comments Fall Reason Onset Date Comments Population Health Navigation Outreach 05/08/[address] [facility] Reason Comments Follow Up Routine-patient take [...] Refill Request 07/30/2024 Reason Comments ED Follow-up [facility] 07/30/2024 for abd ominal pain Reason Comments Radiology NM Specialty Diagnoses / Procedures Referred By Contac t Referred To Contact [facility] Diagnoses Nausea RUQ pain Procedures NM HEPATOBILIARY W EF AND/OR RX HEPATOBIL [facility] GB W/PHARMA INTERVENJ PodShavonne archibald, IN HOME SALES CONSULTANT.MESSENGER COPY [address] [place] [address] Phone: tel: fax: [facility] [address] [place] [address] Phone: tel: Referral ID Status Reason Start Date Expiration Date V isits Requested Visits Authorized [id number] Closed Auto-Generate d Referral 08/06/2024 09/05/2025 1 [...] Care Teams (unrecognized sec tion and content) Risk Control Product Liability Director Relationship Specialty Start Date End Date Clinic, Danae Cobb [address] [facility] [place] [address] PCP - General 11/18/20 Jovanni Garcia [address] [facility] [place] [address] Physician Ent - Otolaryngology 02/26/21 Risk Control Product Liability Director Relationship Specialty Start Date End Date Clinic, Danae Cobb [address] [facility] [place] [address] PCP - General 11/18/20 Jovanni Garcia [address] [facility] [address] Physician Ent - Otolaryngology 02/26/21 Risk Control Product Liability Director Relationship Specialty Start Date End Date Clinic, Danae Cobb [address] [facility] [place] [address] PCP - General 11/18/20 Jovanni Garcia [address] [facility] [address] Physician Ent - Otolaryngology 02/26/21 Risk Control Product Liability Director Relationship Specialty Start Date End Date Clinic, Danae Cobb [address] [facility] [place] [address] PCP - General 11/18/20 Jovanni Garcia [address] [facility] [place] [address] Physician Ent - Otolaryngology 02/26/21 Risk Control Product Liability Director Relationship Specialty Start Date End Date Clinic, Danae Cobb [address] [facility] [place] [address] PCP - General 11/18/20 Jovanni Garcia [address] [facility] [place] [address] Physician Ent - Otolaryngology 02/26/21 Risk Control Product Liability Director Relationship Specialty Start Date End Date Clinic, Danae Cobb [address] [place] [address] PCP - General 11/18/20 Jovanni Garcia [address] [place] [phone] Physician Ent - Otolaryngology 02/26/21 Risk Control Product Liability Director Relationship Specialty Start Date End Date Clinic, [place] [facility] [address] [place] [address] PCP - General 11/18/20 Jovanni Garcia [address] [place] [phone] Physician Ent - Otolaryngology 02/26/21 Team Status: Active Member Role Status Dates [facility] Family Provider Active [facility] Primary Care Provider A ctive Team Status: Inactive Member Role Status [facility] Primary Care Provider, Referring Provider Active Robin Fernandez SCHOOL CLEANER, S[employer]OL CLEANER-C Attending Provider Active Team Status: Active Member Role Status Dates [facility] Primary Care Provider A ctive Dr. Cole Bran MD Attending Provider Active Team Status: Active Member Role Status Dates [facility] Primary Care Provider A ctive Dr. Eduardo Ely DO Emergency Provider Active Dr. Rupal Gannon MD Admit Provider, Other Provider Active Dr. Lashawn Ellington MD Attending Provider, Other Provid er Active Team Status: Inactive Member Role Status [facility] Primary Care Provider, Referring Provider Active Dr. Ramesh Sanabria MD Attending Provider Active Team Status: Active Member Role Status Dates [facility] Primary Care Provider A ctive Dr. Marsha Vaughn MD Attending Provider, Refe rring Provider Active Team Status: Active Member Role Status Dates [facility] Primary Care Provider A ctive Laura Lacey Attending Provider Active Team Status: Inactive Member Role Status Dates [facility] Primary Care Provider A ctive Dr. Rl Britt MD Attending Provider, Emergency Provider Active Team Status: Inactive Member Role Status Dates [facility] Primary Care Provider, Attending Provider Active Team Status: Inactive Member Role Status Dates [facility] Primary Care Provider A ctive Yamile Loco SCHOOL CLEANER, SCHOOL CLEANER-C Attending Provider Active Team Status: Inactive Member Role Status [facility] Primary Care Provider A ctive Dr. Eduardo Ely DO Emergency Provider Active Dr. Rupal Gannon MD Admit Provider, Other Provider Active Dr. Lashawn Ellington MD Attending Provider Active Team Status: Active Member Role Status [facility] Primary Care Provider A ctive Dr. Cole Bran MD Attending Provider, Referring Provider Active Team Status: Inactive Member Role Status [facility] Primary Care Provider A ctive Dr. Eduardo Ely DO Attending Provider, Emergency Provider Active Team Status: Inactive Member Role Status [facility] Primary Care Provider A ctive Dr. Ramesh Sanabria MD Attending Provider, Referring Pro vider Active Team Status: Active Member Role Status [facility] Primary Care Provider A ctive Yamile Adan SCHOOL CLEANER, SCHOOL CLEANER-C Attending Provider, Referrin g Provider Active Team Status: Inactive Member Role Status [facility] Primary Care Provider A ctmatias Jackson MD Emergency Provider Active Team Status: Inactive Member Role Status [facility] Primary Care Provider, Referring Provider Active Giuseppe Mireles MD Attending Provider Active Team Status: Inactive Member Role Status [facility] Primary Care Provider A ctive Yamile Adan SCHOOL CLEANER, SCHO[employer] CLE[employer]ER-C Attending Provider, Referrin g Provider Active Team Status: Inactive Member Role Status [facility] Primary Care Provider A ctmatias Jackson MD Attending Provider, Emergency Provid er Active Team Status: Inactive Member Role Status [facility] Primary Care Provider A ctmatias Mireles MD Attending Provider, Referring Prov ider Active Team Status: Inactive Member Role Status [facility] Primary Care Provider A ctive Dr. Lili Roque MD Emergency Provider Active Team Status: Active Member Role Status [facility] Family Provider Active Dr. Bird Ronquillo MD Primary Care Provider Acti ve Team Status: Inactive Member Role Status [facility] Primary Care Provider, Referring Provider Active Dr. Arslan Love MD Attending Provider Active Team Status: Inactive Member Role Status [facility] Primary Care Provider, Referring Provider Active Laura Coulter PA, PA Attending Provider Active Team Status: Inactive Member Role Status Dates [facility] Primary Care Provider A ctive Dr. Lili [...] Dr. Kunal Bray , Emergency Provider Active Risk Control Product Liability Director Relationship Specialty Start Date End Date Clinic, [facility] [address] [facility] [place] [address] PCP - General 11/18/20 Jovanni Garcia [address] [facility] [place] [phone] Physician Ent - Otolaryngology 02/26/21 Risk Control Product Liability Director Relationship Specialty Start Date End Date [facility], [facility] [address] [facility] [place] [address] PCP - General 11/18/20 Jovanni Garcia [address] [facility] [phone] Physician Ent - Otolaryngology 02/26/21 Team Status: Inactive Member Role Status Dates Dr. Bird Ronquillo MD Primary Care Provider Acti ve Dr. Kunal Bray DO Attending Provider, Emergency Pr ovider Active Team [...] ve Naif Jackson MD Emergency Provider Active Risk Control Product Liability Director Relationship Specialty Start Date End Date Clinic, [facility] [address] [facility] [place] [address] PCP - General 11/18/20 Jovanni Garcia [address] [facility] [address] Physician Ent - Otolaryngology 02/26/21 Risk Control Product Liability Director Relationship Specialty Start Date End Date Clinic, Danae Cobb [address] [facility] [place] [address] PCP - General 11/18/20 Jovanni Garcia [address] [facility] [address] Physician Ent - Otolaryngology 02/26/21 Risk Control Product Liability Director Relationship Specialty Start Date End Date [facility], Danae Cobb [address] [facility] [place] [address] PCP - General 11/18/20 Jovanni Garcia [address] [place] [address] Physician Ent - Otolaryngology 02/26/21 Risk Control Product Liability Director Relationship Specialty Start Date End Date Tatiana Ronquillo MD [address] [facility] [place] [address] PCP - General Family Medicine 01/26/23 Jovanni Garcia [address] [facility] [address] Physician Ent - Otolaryngology 02/26/21 Risk Control Product Liability Director Relationship Specialty Start Date End Date Tatiana Ronquillo MD [address] [facility] [address] PCP - General Family Medicine 01/26/23 Jovanni Garcia [address] [facility] [address] Physician Ent - Otolaryngology 02/26/21 Risk Control Product Liability Director Relationship Specialty Start Date End Date Tatiana Ronquillo MD [address] [facility], [place] 222481 PCP - General Family Medicine 01/26/23 Jovanni Garcia [address] [facility] [phone] Physician Ent - Otolaryngology 02/26/21 Risk Control Product Liability Director Relationship Specialty Start Date End Date Tatiana Ronquillo MD [address] [place], [place] [address]85[address] [phone] PCP - General Family Medicine 01/26/23 Jovanni Garcia [address] [facility] [phone] Physician Ent - Otolaryngology 02/26/21 Risk Control Product Liability Director Relationship Specialty Start Date End Date Tatiana Ronquillo MD [address] [facility], [place] 845811 PCP - General Family Medicine 01/26/23 Jovanni Garcia [address] [facility] [phone] Physician Ent - Otolaryngology 02/26/21 Risk Control Product Liability Director Relationship Specialty Start Date End Date Tatiana Ronquillo MD [address] [facility], [place] 337713 [phone] PCP - General Family Medicine 01/26/23 Jovanni Garcia [address] [facility] [phone] Physician Ent - Otolaryngology 02/26/21 Risk Control Product Liability Director Relationship Specialty Start Date End Date Tatiana Ronquillo MD [address] [place], [place] [address]8891 PCP - General Family Medicine 01/26/23 Jovanni Garcia [address] [place] [phone] Physician Ent - Otolaryngology 02/26/21 Team Status: Inactive Member Role Status Dates [facility] Referring Provider Acti ve Robin Fernandez SCHOOL CLEANER, SCHOOL CLEANER-C Attending Provider Active Dr. Bird Ronquillo MD Primary Care Provider Acti ve Team Status: Inactive Member Role Status Dates Dr. Bird Ronquillo MD Primary Care Provider Acti ve Naif Jackson MD Attending Provider, Emergency Provid er Active Team Status: Inactive Member Role Status Dates Dr. Bird Ronquillo MD Primary Care Provider Acti ve Dr. Eduardo Ely DO Emergency Provider Active Risk Control Product Liability Director Relationship Specialty Start Date End Date Tatiana Ronquillo MD [address] [place], [place] [address]35431 PCP - General Family Medicine 01/26/23 Jovanni Garcia [address] [place] [phone] Physician Ent - Otolaryngology 02/26/21 Risk Control Product Liability Director Relationship Specialty Start Date End Date Tatiana Ronquillo MD [address] [place], [place] [phone] PCP - General Family Medicine 01/26/23 Jovanni Garcia [address] [place] [phone] Physician Ent - Otolaryngology 02/26/21 Risk Control Product Liability Director Relationship Specialty Start Date End Date Tatiana Ronquillo MD [address] [place], [place] 593021 PCP - General Family Medicine 01/26/23 Jovanni Garcia [address] [place] [phone] Physician Ent - Otolaryngology 02/26/21 Risk Control Product Liability Director Relationship Specialty Start Date End Date Tatiana Ronquillo MD [address] [place], [place] [address]86251 PCP - General Family Medicine 01/26/23 Jovanni Garcia [address] [place] [phone] Physician Ent - Otolaryngology 02/26/21 Risk Control Product Liability Director Relationship Specialty Start Date End Date Tatiana Ronquillo MD [address] [place], [place] 737481 PCP - General Family Medicine 01/26/23 Jovanni Garcia [address] [place] [phone] Physician Ent - Otolaryngology 02/26/21 Risk Control Product Liability Director Relationship Specialty Start Date End Date Tatiana Ronquillo MD [address] [place], [place] [phone] PCP - General Family Medicine 01/26/23 Jovanni Garcia [address] [place] [phone] Physician Ent - Otolaryngology 02/26/21 Risk Control Product Liability Director Relationship Specialty Start Date End Date Tatiana Ronquillo MD [address] [facility], [place] 107321 PCP - General Family Medicine 01/26/23 Jovanni Garcia [address] [facility] [phone] Physician Ent - Otolaryngology 02/26/21 Risk Control Product Liability Director Relationship Specialty Start Date End Date Tatiana Ronquillo MD [address] [facility], [place] 587567 [phone] PCP - General Family Medicine 01/26/23 Jovanni Garcia [address] [facility] [phone] Physician Ent - Otolaryngology 02/26/21 Team Status: Inactive Member Role Status Dates Dr. Bird Ronquillo MD Primary Care Provider, Ref erring Provider Active Dr. Arslan Love MD Attending Provider Active Risk Control Product Liability Director Relationship Specialty Start Date End Date Tatiana oRnquillo MD [address] [facility] [address] PCP - General Family Medicine 01/26/23 Jovanni Garcia [address] [facility] [phone] Physician Ent - Otolaryngology 02/26/21 Risk Control Product Liability Director Relationship Specialty Start Date End Date Tatiana Ronquillo MD [address] [facility], [place] 708021 PCP - General Family Medicine 01/26/23 Jovanni Garcia [address] [facility] [phone] Physician Ent - Otolaryngology 02/26/21 Risk Control Product Liability Director Relationship Specialty Start Date End Date Tatiana Ronquillo MD [address] [facility], [place] 106221 PCP - General Family Medicine 01/26/23 Jovanni Garcia [address] [place] [address] Physician Ent - Otolaryngology 02/26/21 Risk Control Product Liability Director Relationship Specialty Start Date End Date Tatiana Ronquillo MD [address] [place], [place] 453821 PCP - General Family Medicine 01/26/23 Jovanni Garcia [address] [place] [address] Physician Ent - Otolaryngology 02/26/21 Team Status: Inactive Member Role Status Dates Dr. Bird Ronquillo MD Primary Care Provider Acti ve Dr. Eduardo Ely DO Attending Provider, Emergency Provider Active Team Status: Inactive Member Role Status Dates Dr. Bird Ronquillo MD Primary Care Provider Acti ve Dr. Rl Britt MD Emergency Provider Active Risk Control Product Liability Director Relationship Specialty Start Date End Date Tatiana Ronquillo MD [address] [facility], [place] [phone] PCP - General Family Medicine 01/26/23 Jovanni Garcia [address] [place] [phone] Physician Ent - Otolaryngology 02/26/21 Risk Control Product Liability Director Relationship Specialty Start Date End Date Tatiana Ronquillo MD [address] [place] [address] PCP - General Family Medicine 01/26/23 Jovanni Garcia [address] [place] [phone] Physician Ent - Otolaryngology 02/26/21 Risk Control Product Liability Director Relationship Specialty Start Date End Date Tatiana Ronquillo MD [address] [place] [address] PCP - General Family Medicine 01/26/23 Jovanni Garcia [address] [place] [phone] Physician Ent - Otolaryngology 02/26/21 Risk Control Product Liability Director Relationship Specialty Start Date End Date Tatiana Ronquillo MD [address] [place] [address] PCP - General Family Medicine 01/26/23 Jovanni Garcia [address] [place] [phone] Physician Ent - Otolaryngology 02/26/21 Risk Control Product Liability Director Relationship Specialty Start Date End Date Tatiana Ronquillo MD [address] [place] [address] PCP - General Family Medicine 01/26/23 Jovanni Garcia [address] [place] [phone] Physician Ent - Otolaryngology 02/26/21 Risk Control Product Liability Director Relationship Specialty Start Date End Date Tatiana Ronquillo MD [address] [facility] [place] [address]60[facility] PCP - General Family Medicine 01/26/23 Jovanni Garcia [address] [facility] [phone] Physician Ent - Otolaryngology 02/26/21 Risk Control Product Liability Director Relationship Specialty Start Date End Date Danae Manrique PCP - General 11/18/20 01/25/23 Jovanni Garcia [address] [facility] [phone] Physician Ent - Otolaryngology 02/26/21 Risk Control Product Liability Director Relationship Specialty Start Date End Date Tatiana Ronquillo MD [address] [facility], [place] 694251 PCP - General Family Medicine 01/26/23 Jovanni Garcia [address] [place] [phone] Physician Ent - Otolaryngology 02/26/21 Risk Control Product Liability Director Relationship Specialty Start Date End Date Tatiana Ronquillo MD [address] [facility], [place] 862041 PCP - General Family Medicine 01/26/23 Jovanni Garcia [address] [facility] [phone] Physician Ent - Otolaryngology 02/26/21 Risk Control Product Liability Director Relationship Specialty Start Date End Date Tatiana Ronquillo MD [address] [place], [place] [address]011 PCP - General Family Medicine 01/26/23 Jovanni Garcia [address] [place] [phone] Physician Ent - Otolaryngology 02/26/21 Risk Control Product Liability Director Relationship Specialty Start Date End Date Tatiana Ronquillo MD [address] [place], [place] [address]491 PCP - General Family Medicine 01/26/23 Jovanni Garcia [address] [place] [phone] Physician Ent - Otolaryngology 02/26/21 Risk Control Product Liability Director Relationship Specialty Start Date End Date Tatiana Ronquillo MD [address] [place], [place] [address]94161 PCP - General Family Medicine 01/26/23 Jovanni Garcia [address] [place] [phone] Physician Ent - Otolaryngology 02/26/21 Risk Control Product Liability Director Relationship Specialty Start Date End Date Tatiana Ronquillo MD [address] [place], [place] [phone] PCP - General Family Medicine 01/26/23 Jovanni Garcia [address] [place] [phone] Physician Ent - Otolaryngology 02/26/21 Risk Control Product Liability Director Relationship Specialty Start Date End Date Tatiana Ronquillo MD [address] [place] [address] PCP - General Family Medicine 01/26/23 Jovanni Garcia [address] [place] [phone] Physician Ent - Otolaryngology 02/26/21 Risk Control Product Liability Director Relationship Specialty Start Date End Date Tatiana Ronquillo MD [address] [place] [address] PCP - General Family Medicine 01/26/23 Jovanni Garcia [address] [place] [phone] Physician Ent - Otolaryngology 02/26/21 Risk Control Product Liability Director Relationship Specialty Start Date End Date Tatiana Ronquillo MD [address] [place] [address] PCP - General Family Medicine 01/26/23 Jovanni Garcia [address] [place] [address] Physician Ent - Otolaryngology 02/26/21 Risk Control Product Liability Director Relationship Specialty Start Date End Date Tatiana Ronquillo MD [address] [place] [address] PCP - General Family Medicine 01/26/23 Jovanni Garcia [address] [place] [address] Physician Ent - Otolaryngology 02/26/21 Risk Control Product Liability Director Relationship Specialty Start Date End Date Tatiana Ronquillo MD [address] [place] [address] PCP - General Family Medicine 01/26/23 Jovanni Garcia [address] [place] [phone] Physician Ent - Otolaryngology 02/26/21 Risk Control Product Liability Director Relationship Specialty Start Date End Date Tatiana Ronquillo MD [address] [place] [address] PCP - General Family Medicine 01/26/23 Jovanni Garcia [address] [place] [phone] Physician Ent - Otolaryngology 02/26/21 Risk Control Product Liability Director Relationship Specialty Start Date End Date Tatiana Ronquillo MD [address] [place], [place] [address]671 PCP - General Family Medicine 01/26/23 Jovanni Garcia [address] [place] [phone] Physician Ent - Otolaryngology 02/26/21 Risk Control Product Liability Director Relationship Specialty Start Date End Date Tatiana Ronquillo MD [address] [place], [place] [phone] PCP - General Family Medicine 01/26/23 Jovanni Garcia [address] [place] [phone] Physician Ent - Otolaryngology 02/26/21 Risk Control Product Liability Director Relationship Specialty Start Date End Date Tatiana Ronquillo MD [address] [place] [address] PCP - General Family Medicine 01/26/23 Jovanni Garcia [address] [place] [phone] Physician Ent - Otolaryngology 02/26/21 PodlogarShavonne APRN.MESSENGER COPY [address] [place] [address] [employer] 05/04/24 Risk Control Product Liability Director Relationship Specialty Start Date End Date Tatiana Ronquillo MD [address] [place] [address] PCP - General Family Medicine 01/26/23 Jovanni Garcia [address] [place] [address] Physician Ent - Otolaryngology 02/26/21 PodlogarShavonne APRN.MESSENGER COPY [address] [place] [address] [employer] [facility] 05/04/24 Risk Control Product Liability Director Relationship Specialty Start Date End Date Tatiana Ronquillo MD [address] [place] [address] PCP - General Family Medicine 01/26/23 Jovanni Garcia [address] [place] [address] Physician Ent - Otolaryngology 02/26/21 PodlogarShavonne APRN.MESSENGER COPY [address] [place] [address] [facility] [employer] 05/04/24 Risk Control Product Liability Director Relationship Specialty Start Date End Date Tatiana Ronquillo MD [address] [place] [address] PCP - General Family Medicine 01/26/23 Jovanni Garcia [address] [place] [address] Physician Ent - Otolaryngology 02/26/21 PodlogarShavonne APRN.MESSENGER COPY [address] [place] [address] [facility] 05/04/24 Risk Control Product Liability Director Relationship Specialty Start Date End Date Tatiana Ronquillo MD [address] [place] [address] PCP - General Family Medicine 01/26/23 Jovanni Garcia [address] [place] [address] Physician Ent - Otolaryngology 02/26/21 Podlogar, ROSALINA Marvin.MESSENGER COPY [address] [place] [address] [employer] [facility] 05/04/24 Risk Control Product Liability Director Relationship Specialty Start Date End Date Tatiana Ronquillo MD [address] [place] [address] PCP - General Family Medicine 01/26/23 Jovanni Garcia [address] [place] [phone] Physician Ent - Otolaryngology 02/26/21 Podlogar, ROSALINA Marvin.MESSENGER COPY [address] [place] [address] [employer] 05/04/24 Risk Control Product Liability Director Relationship Specialty Start Date End Date Tatiana Ronquillo MD [address] [place] [address] PCP - General Family Medicine 01/26/23 Jovanni Garcia [address] [place] [phone] Physician Ent - Otolaryngology 02/26/21 PodlogarShavonne APRN.MESSENGER COPY [address] [place] [address] [employer] [facility] 05/04/24 Risk Control Product Liability Director Relationship Specialty Start Date End Date Tatiana Ronquillo MD [address] [place], [place] 891492 [phone] PCP - General Family Medicine 01/26/23 Jovanni Garcia [address] [place] [phone] Physician Ent - Otolaryngology 02/26/21 PodlogarShavonne APRN.MESSENGER COPY [address] [place], [place] 657[address] [facility] 05/04/24 Risk Control Product Liability Director Relationship Specialty Start Date End Date Tatiana Ronquillo MD [address] [place] [address] PCP - General Family Medicine 01/26/23 Jovanni Garcia [address] [place] [phone] Physician Ent - Otolaryngology 02/26/21 PodlogarShavonne APRN.MESSENGER COPY [address] [place] [address] [facility] 05/04/24 Risk Control Product Liability Director Relationship Specialty Start Date End Date Tatiana Ronquillo MD [address] [place] [address] PCP - General Family Medicine 01/26/23 Jvoanni Garcia [address] [place] [phone] Physician Ent - Otolaryngology 02/26/21 PodlogarShavonne APRN.MESSENGER COPY [address] [place] [address] [employer] [facility] 05/04/24 Risk Control Product Liability Director Relationship Specialty Start Date End Date Tatiana Ronquillo MD [address] [place] [address] PCP - General Family Medicine 01/26/23 Jovanni Garcia [address] [place] [phone] Physician Ent - Otolaryngology 02/26/21 Podlogar, ROSALINA Marvin.MESSENGER COPY [address] [facility] [place] [address] [facility] Risk Control Product Liability Director Relationship Specialty Start Date End Date Tatiana Ronuqillo MD [address] [facility] [address] PCP - General Family Medicine 01/26/23 Jovanni Garcia [address] [place] [phone] Physician Ent - Otolaryngology 02/26/21 PodlogarShavonne APRN.MESSENGER COPY [address] [place] [address] [facility] 05/04/24 Risk Control Product Liability Director Relationship Specialty Start Date End Date Tatiana Ronquillo MD [address] [facility] [address] PCP - General Family Medicine 01/26/23 Jovanni Garcia [address] [place] [phone] Physician Ent - Otolaryngology 02/26/21 Podlogar, Shavonne IN HOME SALES CONSULTANT.MESSENGER COPY [address] [facility] [address] [employer] [facility] 05/04/24 Sabine Crowley APRN.MESSENGER COPY [address] [place], [place] [address] [facility] 08/09/[facility] Risk Control Product Liability Director Relationship Specialty Start Date End Date Tatiana Ronquillo MD [address] [place], [place] 866821 PCP - General Family Medicine 01/26/23 Jovanni Garcia [address] [place] [phone] Physician Ent - Otolaryngology 02/26/21 PodlogarShavonne APRN.MESSENGER COPY [address] [place], [place] [address]207[address] [facility] 05/04/24 Sabine Crowley IN HOME SALES CONSULTANT.MESSENGER COPY [address] [place], [place] 3405[address] [facility] 08/09/24 Risk Control Product Liability Director Relationship Specialty Start Date End Date Tatiana Ronquillo MD [address] [place], [place] [phone] PCP - General Family Medicine 01/26/23 Jovanni Garcia [address] [place] [phone] Physician Ent - Otolaryngology 02/26/21 Podlogar, Shavonne IN HOME SALES CONSULTANT.MESSENGER COPY [address] [place], [place] 947169 [phone] [facility] 05/04/24 Sabine Crowley APRN.MESSENGER COPY [address] [place], [place] [id number] [facility] 08/09/24 08/18/24 Sabine Crowley IN HOME SALES CONSULTANT.MESSENGER COPY [address] [place], [place] [address]2361 [facility] 08/19/24 Risk Control Product Liability Director Relationship Specialty Start Date End Date Tatiana Ronquillo MD [address] [place], [place] 487721 PCP - General Family Medicine 01/26/23 Jovanni Garcia [address] [place] [phone] Physician Ent - Otolaryngology 02/26/21 PodShavonne archibald APRN.MESSENGER COPY [address] [place] [address] [facility] 05/04/24 Sabine Crowley IN HOME SALES CONSULTANT.MESSENGER COPY [address] [place], [place] [address] [facility] 08/09/24 08/18/24 Sabine Crowley, IN HOME SALES CONSULTANT.MESSENGER COPY [address] [place], [place] [address] [facility] 08/19/24 Risk Control Product Liability Director Relationship Specialty Start Date End Date Tatiana Ronquillo MD [address] [place], [place] 0480[address] PCP - General Family Medicine 01/26/23 Jovanni Garcia [address] [place] [phone] Physician Ent - Otolaryngology 02/26/21 PodlogShavonne johnston APRN.MESSENGER COPY [address] [place] [address] [facility] 05/04/24 Sabine Crowley, IN HOME SALES CONSULTANT.MESSENGER COPY [address] [place] [address] [facility] 08/19/24 Team Status: Active Member Role Status [...] October 13, 2024 End: October 13, 2024 Risk Control Product Liability Director Relationship Specialty Start Date End Date Tatiana Ronquillo MD [address] [facility], [place] [address] PCP - General Family Medicine 01/26/23 Jovanni Garcia [address] [place] [phone] Physician Ent - Otolaryngology 02/26/21 PodlogShavonne johnston APRN.MESSENGER COPY [address] [place] [address] [facility] 05/04/24 Sabine Crowley APRN.MESSENGER COPY [address] [place] [address] [facility] 08/09/24 08/18/24 Sabine Crowley APRN.MESSENGER COPY [address] [place], [place] 109281 [facility] 08/19/24 10/13/24 Risk Control Product Liability Director Relationship Specialty Start Date End Date Tatiana Ronquillo MD [address] [place], [place] [address]791 PCP - General Family Medicine 01/26/23 Jovanni Garcia [address] [place] [phone] Physician Ent - Otolaryngology 02/26/21 PodlogShavonne johnston APRN.MESSENGER COPY [address] [place] [address] [facility] 05/[facility]/24 Team Status: Inactive Member Role Status [...] November 18, 2024 End: November 18, 2024 Robin Fernandez SCHOOL CLEANER, SCHOOL CLEANER-C Attending Provider Active Start: November 18, 2024 End: November 18, 2024 Robin Fernandez SCHOOL CLEANER, SCHOOL CLEANER-C Referring Provider Active Start: November 18, 2024 End: November 18, 2024 Risk Control Product Liability Director Relationship Specialty Start Date End Date Tatiana Ronquillo MD [address] [place], [place] [address] PCP - General Family Medicine 01/26/23 Jovanni Garcia [address] [place] [phone] Physician Ent - Otolaryngology 02/26/21 Shavonne Donato APRN.MESSENGER COPY [address] [place], [place] [address] [facility] 05/04/24 Sabine Crowley IN HOME SALES CONSULTANT.MESSENGER COPY [address] [place], [place] [address] [facility] 11/07/24 Team Status: Active Member Role/Relationship Status [...] November 18, 2024 End: November 18, 2024 Robin Fernandez SCHOOL CLEANER, SCHOOL CLEANER-C Attending Provider Active Start: November 18, 2024 End: November 18, 2024 Robin Fernandez SCHOOL CLEANER, SCHOOL CLEANER-C Referring Provider Active Start: November 18, 2024 End: November 18, 2024 Team Status: Inactive Member Role/Relationship Status Dates Dr. Bird Ronquillo MD Primary Care Provider Acti ve Start: December 05, 2024 End: December 05, 2024 Dr. Bird Ronquillo MD Referring Provider Active Start: December 05, 2024 End: December 05, 2024 Robin Fernandez SCHOOL CLEANER, SCHOOL CLEANER-C Attending Provider Active Start: December 05, 2024 End: December 05, 2024 Risk Control Product Liability Director Relationship Specialty Start Date End Date Tatiana Ronquillo MD [address] [place], [place] [address]371 PCP - General Family Medicine 01/26/23 Jovanni Garcia [address] [place] [phone] Physician Ent - Otolaryngology 02/26/21 Shavonne Donato APRN.CNP [address] [place], [place] [phone] [employer] [facility] 05/04/24 Sabine Crowley APRN.MESSENGER COPY [address] [place], [place] [address] [facility] 11/07/24 Risk Control Product Liability Director Relationship Specialty Start Date End Date Tatiana Ronquillo MD [address] [place], [place] [address] PCP - General Family Medicine 01/26/23 Jovanni Garcia [address] [place] [phone] Physician Ent - Otolaryngology 02/26/21 Shavonne Donato APRN.MESSENGER COPY [address] [place], [place] [address] [facility] 05/04/24 Sabine Crowley APRN.MESSENGER COPY [address] [place], [place] [address]33[address] [facility] 11/07/24 Team Status: Inactive Member Role/Relationship Status Dates Dr. Bird Ronquillo MD Primary Care Provider Acti ve Start: January 19, 2025 End: January 19, 2025 Naif Jackson MD Emergency Provider Active Star t: January 19, 2025 End: January 19, 2025 Team Status: Inactive Member Role/Relationship Status Dates [...] November 18, 2024 End: November 18, 2024 Robin Fernandez SCHOOL CLEANER SCHOOL CLEANER-C Attending Provider Active Start: November 18, 2024 End: November 18, 2024 Robin Fernandez SCHOOL CLEANER SCHOOL CLEANER-C Referring Provider Active Start: November 18, 2024 End: November 18, 2024 Team Status: Inactive Member Role/Relationship Status Dates Dr. Bird Ronquillo MD Primary Care Provider Acti ve Start: December 05, 2024 End: December 05, 2024 Dr. Bird Ronquillo MD Referring Provider Active Start: December 05, 2024 End: December 05, 2024 Robin Fernandez SCHOOL CLEANER SCHOOL CLEANER-C Attending Provider Active Start: December 05, 2024 End: December 05, 2024 Team Status: Inactive Member Role/Relationship Status Dates Dr. Bird Ronquillo MD Primary Care Provider Acti ve Start: January 19, 2025 End: January 19, 2025 Naif Jackson MD Attending Provider Active Star t: January 19, 2025 End: January 19, 2025 Naif Jackson MD Emergency Provider Active Star t: January 19, 2025 End: January 19, 2025 Team Status: Inactive Member Role/Relationship Status Dates Dr. Bird Ronquillo MD Primary Care Provider Acti ve Start: January 31, 2025 End: January 31, 2025 Dr. Jenni Payne DO Emergency Provider Active Start: January 31, 2025 End: January 31, 2025 Inactive Administered Medications - up to 3 [...] BE BASED ON THE PRIMARY CLINICAL RECORDS. [employer] [facility]. provides no warranty or guarantee of the accuracy or completeness of information in this document.
[2025-04-11 21:44] VITALS: O2SAT 96
[2025-04-11 21:44] LABS: Hematocrit 40.8 % (37-47); Hemoglobin 13.4 g/dL (12.0-15.0); Immature Granulocytes Count 0.020 X10^3/uL (0.0-0.0); Mean Corp Hgb Conc 32.8 g/dL (32-36); Mean Corpuscular Volume 94.9 fL (81-99); Mean Platelet Vol. 8.7 fl (6.2-12.0); NRBC Flagged by Analyzer 0 % (0-5); Platelet Count 175 K/mm3 (150-450); RBC Distribution Width CV 13.2 % (11.6-14.6); RBC Distribution Width SD 45.9 fl (35.1-43.9); Red Blood Count 4.30 M/mm3 (4.2-5.4); White Blood Count 4.4 K/mm3 (4.4-11.0)
[2025-04-11 21:45] VITALS: BP 170/74; PULSE 75; RESP 16; O2SAT 91
[2025-04-11 21:54] LABS: Prothrombin Time (Protime)PT. 13.7 SECONDS (11.7-14.9)
[2025-04-11 21:55] LABS: Partial Thromboplast Time 27.3 Seconds (24.1-36.2)
[2025-04-11 22:12] LABS: Anion Gap 8 (5-15); BUN 18 mg/dL (4-19); BUN/Creat Ratio 17.2 RATIO (10-20); Calcium,Total 9.1 mg/dL (7.6-11.0); Carbon Dioxide 26.7 mmol/L (21.0-32.0); Chloride 107 mmol/L (98-108); Estimated Creatinine Clearance 56.65 ml/min (50-250); Glucose 75 mg/dL (70-99); Potassium 4.0 mmol/L (3.3-5.1); Troponin T High Sensitivity 11 ng/L (<=14)
--- NOTE | 2025-04-11 22:19 | PCM.HP.STD ---
HPI - General General Date of Admission: 04/11/25 Date of Service: 04/11/25 Chief Complaint: R sided paresthesias, slurred speech, headache, imbalance. HPI Narrative The patient is a 69 y/o F w/ PMHx: CKD stage II per previous GFR trending although has vacillated, GERD, Hypothyroidism, HTN, HLD, Anxiety and Depression, IBS, RLS, Hx CVA with chronic right-sided weakness primarily right lower extremity and mild dysphagia, GERD, Former tobacco use, COPD with chronic hypoxic respiratory failure 2 L NC with activity, Allergic rhinitis who presents to the [facility] ED on 04/11/2025 with history of onset right sided paresthesias, slurred speech, headache and imbalance with last known well on day of presentation at 1 PM in the afternoon not improving prompting eventual ED evaluation. Of note previous chart had listed CAD however patient had 07/13/2022 nonobstructive coronary artery evaluation with normal LV size, wall motion and systolic function and diagnosis was likely placed because of previous concern for NSTEMI prior to cardiac catheterization but uncertain. Initial NIH stroke scale assessment per ED physician 2 for sensory deficit on the right side of the face and right arm drift with no evidence of any slurred speech at that time. Workup in the ED included T97.5, heart 75, BP 170/85, respiratory rate 14, 95% on room air with most recent repeat vitals heart rate 75, BP 170/74, respiratory rate 16, 91% on room air, CBC with WBC 4.4, hemoglobin 13.4, platelet 175 without marked shift, unremarkable coags, BMP with BUN/creatinine 18/1.04, GFR 59, troponin 11, CT brain with no acute intracranial findings, CTA head and neck with no hemodynamically significant stenosis within the head or neck and no evidence of any intracranial aneurysm, EKG with SR without acute evidence of ischemia. Stroke alert initiated with stroke teleneurology evaluation performed with NIH stroke score 2 at that time for 1 mild to moderate sensory loss and 1 for drift with suspected probable stroke recrudescence. [facility] Medical History Osteoporosis Kidney stones Kidney disease GERD (gastroesophageal reflux disease) Myocardial infarct Internal impingement of right shoulder Hypothyroidism Abnormal Holter monitor finding Sinus pause Mixed hyperlipidemia Essential hypertension History of IBS Wears glasses Wears dentures Depression Anxiety Thyroid disease Ambulates with cane History of renal disease Arthritis High cholesterol Restless legs Difficulty swallowing Difficulty chewing History of hiatal hernia Gastric reflux Former smoker Stroke/cerebrovascular accident History of echocardiogram History of stress test History of heart attack History of irregular heartbeat Fuchs' corneal dystrophy HTN (hypertension) COPD (chronic obstructive pulmonary disease) Constipation Hypoxia Diaphragm paralysis History of cerebrovascular disease History of CVA (cerebrovascular accident) Home Medications Medication Instructions Recorded Last Taken Type clopidogrel 75 mg tablet 75 mg PO DAILY BLOOD THINNER 30 06/08/22 09/29/24 Rx days #30 tabs atorvastatin 40 mg tablet 40 mg PO DAILY 07/01/22 09/29/24 History losartan 25 mg tablet 25 mg PO DAILY #90 tabs 09/29/22 09/29/24 Rx alendronate 70 mg tablet 70 mg PO Q7D 08/14/23 09/29/24 History cholecalciferol (vitamin D3) 125 125 mcg PO DAILY 08/14/23 09/29/24 History mcg (5,000 unit) tablet citalopram 10 mg tablet 10 mg PO DAILY 08/14/23 09/29/24 History montelukast 10 mg tablet 10 mg PO DAILY 12/01/23 09/29/24 History multivitamin (One Daily 1 tab PO DAILY 01/16/24 09/29/24 History Multivitamin tablet) ondansetron 4 mg disintegrating 4 mg PO Q8H PRN PRN Nausea #10 tabs 07/31/24 Unknown Rx tablet levothyroxine 75 mcg tablet 75 mcg PO DAILY 09/30/24 09/29/24 History pantoprazole 40 mg tablet,delayed 40 mg PO DAILY 09/30/24 09/29/24 History release levocetirizine 5 mg tablet 5 mg PO DAILY ALLERGIES #90 tabs 10/16/24 Unknown Rx (Allergy Relief (levocetirizine)) albuterol sulfate 90 mcg/actuation 2 puff inhalation Q6H PRN 10/28/24 Unknown Rx aerosol inhaler Shortness Of Breath #3 ea fluticasone fur. 200 mcg-umeclid 1 inh inhalation DAILY #60 ea 01/06/25 Unknown Rx 62.5 mcg-vilant 25 mcg inhalat.powder (Trelegy Ellipta) naproxen 500 mg tablet 500 mg PO BID PRN #20 tabs 01/19/25 Unknown Rx oxycodone 5 mg tablet 5 mg PO Q6H PRN pain 3 days #12 01/19/25 Unknown Rx tabs Allergy/AdvReac Type Severity Reaction Status Date / Time hydrocodone bitartrate (From Allergy HALLUCINATE Verified 01/31/25 17:58 Vicodin) S piperacillin (From Zosyn) Allergy Hives Verified 01/31/25 17:58 tazobactam (From Zosyn) Allergy Hives Verified 01/31/25 17:58 vancomycin Allergy Rash Verified 01/31/25 17:58 fish derived AdvReac Anaphylaxis Verified 01/31/25 17:58 morphine AdvReac HALLUCINATE Verified 01/31/25 17:58 S Family History Mother Diabetes Heart disease Hypertension High cholesterol Father Heart disease Hypertension High cholesterol CVA (cerebral vascular accident) Surgical History History of right breast biopsy History of surgery on lower extremity History of bilateral cataract extraction History of shoulder surgery History of tubal ligation Social History household members: significant other housing: apartment pets and animals: Yes pets and animals: dog(s) Smoking Status: Former smoker quit date: 10/28/19 pack-years: 25 Tobacco: How many years used: 25 second hand exposure: Yes alcohol intake: never substance use type: does not use caffeine: Yes Type: coffee Number of servings: 1 ROS ROS Narrative Admission Review of Systems: CONSTITUTIONAL: No weight loss, fever, chills, + weakness or fatigue. HEENT: Eyes: No visual loss, blurred vision, double vision or yellow sclerae. Ears, Nose, Throat: No hearing loss, sneezing, congestion, runny nose or sore throat. SKIN: No rash or itching, lesions, wounds. CARDIOVASCULAR: No chest pain, chest pressure or chest discomfort, palpitations, edema, orthopnea, syncopal events. RESPIRATORY: No shortness of breath, cough or sputum, wheezing, hemoptysis. GASTROINTESTINAL: + Chronic dysphagia. No anorexia, nausea, vomiting or diarrhea, abdominal pain, melena, BRBPR. GENITOURINARY: No dysuria, frequency, urgency or retention. NEUROLOGICAL: + Headache, paresthesias right-sided UE, R face, altered/slurred speech, imbalance, chronic R sided weakness lower extremity primarily and chronic dysphagia. No syncope, paralysis, focal weakness, change in bowel or bladder control, seizure. MUSCULOSKELETAL: + muscle, back pain, joint pain or stiffness. HEMATOLOGIC: No anemia. + Easy bleeding/bruising. LYMPHATICS: No enlarged nodes. No history of splenectomy. PSYCHIATRIC: + History of anxiety and depression. ENDOCRINOLOGIC: No reports of sweating, cold or heat intolerance. No polyuria or polydipsia. ALLERGIES: + History of allergic rhinitis, hives, anaphylaxis. Vital Signs Vital Signs Vital Signs: 04/11/25 21:30 04/11/25 21:30 04/11/25 21:44 Temperature 97.5 F L 97.5 F L Temperature Source Temporal Temporal Pulse Rate 75 Respiratory Rate 14 Blood Pressure 170/85 H Blood Pressure Mean 113 Pulse Ox 95 96 Oxygen Delivery Method Room Air Room Air 04/11/25 21:45 Temperature Temperature Source Pulse Rate 75 Respiratory Rate 16 Blood Pressure 170/74 H Blood Pressure Mean 106 Pulse Ox 91 Oxygen Delivery Method Room Air Weight Weight: 180 lb 11.2 oz Body Mass Index (BMI) 29.1 Physical Exam Narrative Physical Examination: General: Awake, alert, oriented x 3 and cooperative, seated upright in the ED bed, no acute distress. Skin: Normal color, normal turgor, no icterus, no cyanosis except occasional stage ecchymoses. HEENT: AT/NC, EOMI, PERRLA, mildly dry MM, no carotid bruits or JVD noted. Lungs: CTA bilaterally, moderate effort, mild decrease BL bases, no rales, ronchi or wheezing. Heart: Regular rate and rhythm; no gallop, rub audible. Abdomen: Soft, overweight, NTTP, ND, normal BS, no appreciated HSM. Extremities: No cyanosis, clubbing, or edema. Neurological: Patient awake, alert, oriented as noted, cognitive function appears baseline intact; pupils equally reactive to light and accommodation, cranial nerves grossly normal aside from right-sided facial paresthesias, moving all 4 extremities, bilateral upper extremity finger-nose intact, right lower extremity with some drift/weakness which is chronic and unchanged, some difficulty with right sided lower extremity [id number], left side intact, sensation equal bilaterally lower extremity, persistent right upper extremity paresthesias/decree sensation in addition to face, ongoing altered speech although mild, equivocal Babinski. Psychiatric: Affect appears normal, no acute evidence of depressive or anxiety feelings but does have underlying history. Results Lab / Micro Data 04/11/25 21:34 04/11/25 21:34 Labs: Laboratory Results - last 24 hr 04/11/25 21:34: WBC 4.4, RBC 4.30, Hgb 13.4, Hct 40.8, MCV 94.9, MCH 31.2, MCHC 32.8, RDW Std Deviation 45.9 H, RDW Coeff of Keo 13.2, Plt Count 175, MPV 8.7, Immature Gran % (Auto) 0.500, Neut % (Auto) 64.2, Lymph % (Auto) 22.3, [place] % (Auto) 8.9, Eos % (Auto) 2.7, Baso % (Auto) 1.4 H, Absolute Neuts (auto) 2.8, Absolute Lymphs (auto) 0.98, Nucleated RBC % 0, PT 13.7, INR 1.0, APTT 27.3, Sodium 142, Potassium 4.0, Chloride 107, Carbon Dioxide 26.7, Anion Gap 8, BUN 18, Creatinine 1.04, Estim Creat Clear Calc 56.65, Est GFR (MDRD) Non-Af 59 L, BUN/Creatinine Ratio 17.2, Glucose 75, Calcium 9.1, Troponin T High Sens 11 Imaging Radiology Impression Brain CT 04/11/25 21:34 IMPRESSION: No acute intracranial abnormality. Reading Location: [facility] Head/Neck CTA 04/11/25 21:35 IMPRESSION: No hemodynamically significant stenosis within the head or neck. No evidence of intracranial aneurysm. Reading Location: [facility] Assessment & Plan Assessment/Plan (1) CVA (cerebral vascular accident): PLAN: Plan The patient is a 69 y/o F w/ PMHx: CKD stage II per previous GFR trending although has vacillated, GERD, Hypothyroidism, HTN, HLD, Anxiety and Depression, IBS, RLS, Hx CVA with chronic right-sided weakness primarily right lower extremity and mild dysphagia, GERD, Former tobacco use, COPD with chronic hypoxic respiratory failure 2 L NC with activity, Allergic rhinitis who presents to the [facility] ED on 04/11/2025 with history of onset right sided paresthesias, slurred speech, headache and imbalance with last known well on day of presentation at 1 PM in the afternoon not improving prompting eventual ED evaluation. #1. Right-sided paresthesias, slurred speech, headache with imbalance concerning for CVA with Hx CVA with chronic right-sided weakness primarily right lower extremity and mild dysphagia: Will admit to PCU, will obtain MRI Brain, ECHO, PT/OT/Speech/Nutrition evaluation per protocol. Will allow permissive HTN, maintain on asa/plavix, statin w/ AM FLP, fall precautions. Mag, TSH, FLP, HgbA1c requested. Maintain on fall and aspiration precautions. Will continue neurology consultation. #2. Chronic COPD with chronic hypoxic respiratory failure 2 L NC with activity with allergic rhinitis: Will maintain on home oxygen supplementation, will temporally hold home inhalers in the interim maintain on continue ATC duonebs, PRN albuterol, HOB, IS parameters, continue home montelukast and levocetirizine home regimen. #3. Chronic Kidney Disease Stage II per GFR trending although has vacillated: Admission BUN/Cr 18/1.04, GFR 59 although has vacillated and primarily stage II more recently, baseline renal function primarily 0.8-1.0, repeat BMP in AM. #4. Hypertension: Will maintain permissive hypertension given current presentation with as needed agents per stroke protocol. #5. Hyperlipidemia: Continue home statin regimen. AM FLP. #6. Anxiety and depression: Will continue patient home citalopram regimen. #7. Hypothyroidism: Will continue patient on levothyroxine regimen. #8. Former tobacco use: Encourage continued tobacco cessation. #9. GERD: Will continue patient on PPI. #10. DVT prophylaxis: Lovenox. #11. CODE status: Patient HCPOA is not in place but her who is present she notes to be her medical decision-maker if necessary and living will is currently in place. Discussed CODE status at length including difference between FULL code, DNR-CCA and DNR-CC status. Following discussions about the differences in these status, requested DNR-CCA, no intubation. Discussed examples of respiratory failure and even in that setting patient does not want intubated. Advanced Care Planning Face to Face Time: 16 minutes. Charges/Coding Visit Charges Inpatient E&M: 04313 Init Hosp L3 Procedures Hospitalists Procedures: 54932 Advncd Care Plan 30 Min
[2025-04-11 22:21] VITALS: BP 170/74; PULSE 75; RESP 16; TEMP 36.8; O2SAT 91
[2025-04-11 22:48] LABS: Magnesium 2.1 mg/dL (1.5-2.2)
--- OUTSIDE RECORDS SUMMARY | 2025-04-11 22:52 | XMS RPT_ITS | CCD ---
Author Organization [facility] Care Team Providers Care Environmental Air Specialist Name Role Phone [facility], Danae Cobb Primary Care Pro vider [facility], Danae Barrazalanre Referring Provid er KAMINI Pathak Attending Provider Nurse, Surgery Attending Provider Unavailable Dr. Arslan Love Attending Provider [facility], Danae Barrazalanre Primary Care Pro vider [facility], [place] Jorge Referring Provid er KAMINI Pathak Attending Provider Friend, Dr. Madison Attending Provider Friend, Dr. Madison Referring Provider Friend, Dr. Madison Other Provider Clinic, [place] Jorge Primary Care Provider Un available Jovanni Garcia Unavailable [facility], Deltaitalia Barrazalanre Primary Care Pro vider [facility], [place] Jorge Referring Provid er [facility], [place] Christilanre Primary Care Pro vider [facility], [place] Ginaman Referring Provid er Dr. Bina Walter Emergency Provider Dr. Rupal Gannon Admit Provider Dr. Rupal Gannon Other Provider Kotsonis, Dr. Jose F Other Provider Dr. Lj De Santiago Other Provider Loco STONE LATHE OPERATOR, STONE LATHE OPERATOR-C Yamile Attending Provider Jovanni Garcia Unavailable [facility], [facility] Primary Care Provider Un available Jovanni Garcia Unavailable [facility], [facility] Primary Care Pro vider Jim STONE LATHE OPERATOR, STONE LATHE OPERATOR-C Robin Attending Provider CARLO Aguilar Referring Provider [phone] [facility], [facility] Referring Provid er [facility], [facility] Primary Care Provider Un available Jovanni Garcia Unavailable Dr. Cole Bran Attending Provider Dr. Eduardo Ely Emergency Provider [phone] Dr. Rupal Gannon Admit Provider Dr. Rupal Gannon Other Provider Dr. Lashawn Ellington Attending Provider Dr. Lashawn Ellington Other Provider [facility], [facility] Primary Care Pro vider Jim STONE LATHE OPERATOR, STONE LATHE OPERATOR-C Robin Attending Provider Dr. Marsha Vaughn Attending Provider Dr. Marsha Vaughn Referring Provider Laura Lacey Attending Provider Unavailable Dr. Ramesh Sanabria Attending Provider [facility], [facility] Primary Care Pro vider [facility], [facility] Referring Provid er MD Giuspepe Mireles Attending Provider [facility], [facility] Primary Care Pro vider Dr. Marsha Vaughn Attending Provider Dr. Marsha Vaughn Referring Provider Dr. Cole Bran Attending Provider Dr. Eduardo Ely Emergency Provider Dr. Rupal Gannon Admit Provider Dr. Rupal Gannon Other Provider Dr. Lashawn Ellington Attending Provider Dr. Lashawn Ellington Other Provider Laura Lacey Attending Provider Unavailable [facility], [facility] Referring Provid er Dr. Ramesh Sanabria Attending Provider MD Giuseppe Mireles Attending Provider [facility], [facility] Primary Care Pro vider [facility], [facility] Referring Provid er Dr. Arslan Love Attending Provider Yfn SUÁREZ, [place] Laura Shell Attending Provider [facility], [facility] Primary Care Pro vider [facility], [facility] Referring Provid er Tatiana Ronquillo MD Primary Care Provider [facility], [facility] Referring Provid er Jim STONE LATHE OPERATOR, STONE LATHE OPERATOR-C Robin Attending Provider Dr. Bird Ronquillo Primary Care Provider Dr. Bird Ronquillo Primary Care Provider Dr. Bird Ronquillo Referring Provider Dr. Arslan Love Attending Provider [phone] Tatiana Ronquillo MD Primary Care Provider [facility], [place] Christifabiola Primary Care Provider Un available TATIANA RONQUILLO Primary Care Unavailab SABINE Morrison Referring Unavailable TATIANA RONQUILLO Primary Care Unavailab SABINE Morrison Referring Unavailable TATIANA RONQUILLO Primary Care Unavailab TATIANA Cade Primary Care Unavailab le PREBISH, MEAGHAN Attending Unavailable TATIANA RONQUILLO Primary Care Unavailab le CONKLE-LAGROUX, YAMILE Referring Unavaila ble Podlogar PARKING LOT SPOTTER.WILVERShavonne Unavailable ROBIN GAFFNEY Attending Unavailable TATIANA RONQUILLO Primary Care Unavailab le TATIANA RONQUILLO Referring Unavailab le JUSTO HALEY Attending Unavailable ISIDRO LIPSCOMB Referring Unavailable TATIANA RONQUILLO Primary Care Unavailab le [place] PARKING LOT SPOTTER.BOW MAKER PRODUCTIONSabine Unavailable [place] PARKING [employer] SPOTTER.BOW MAKER PRODUCTION, Sabine Unavailable [place] PARKING [employer] SPOTTER.BOW MAKER PRODUCTION, Sabine Unavailable Shima SHERMAN, Dr. Pang Primary Care Provider Rosales STRE[address], Dr. Shaw Attending Provider CatiaLadan STREET, Dr. Shaw Emergency Provider Sara STREET, Dr. Person Attending Provider Sara STREET, Dr. Person Emergency Provider Sherif SHERMAN, Dr. Ward Attending Provider Sherif SHERMAN, Dr. Ward Emergency Provider [place] PARKING [employer] SPOTTER.BOW MAKER PRODUCTIONSabine Unavailable Shima SHERMAN, Dr. Pang Primary Care Provider CatiaLadan STREET, Dr. Shaw [facility] Shaw Emergency Provider Jim STONE LATHE OPERATOR-CRobin Attending Provider Jim STONE LATHE OPERATOR-CRobin Referring Provider [place] PARKING LOT SPOTTER.BOW MAKER PRODUCTIONBoSabine Unavailable Shima SHERMAN, Dr. Pang Primary Care Provider Shima SHERMAN, Dr. Pang Referring Provider Naif Jackson MD Emergency Provider Shima SHERMAN, Dr. Pang Primary Care Provider Naif Jackson MD Attending Provider Kerry STREET, Dr. Arteaga Emergency Provider Shima, Bird Primary Care Unavailable Jim STONE LATHE OPERATOR, Robin Attending Unavailable Zackeryley, Bird Referring Unavailable Jenni Payne Attending Unavailable Bursley, Bird Primary Care Unavailable Bursley, Bird Primary Care Unavailable Fernandez STONE LATHE OPERATOR, Robin Attending Unavailable Jim STONE LATHE OPERATOR, Robin Referring Unavailable Bursley, Bird Primary Care Unavailable Naif Jackson Attending Unavailable Shima, Bird Referring Unavailable Jim STONE LATHE OPERATOR, Robin Attending Unavailable Zackeryley, Bird Primary Care [...] Unavailab le TATIANA RONQUILLO Primary Care Unavailab TATIANA Cade Attending [...] 2 Anaphylaxis [facility] (20 sources) HYDROcodone; 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: [HYDROCODONE BITARTRATE] Drug Allergy 9 Other: See Comments [facility] Comment on above: HALLUCINATES (20 sources) Morphine; 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: [MORPHINE] Drug Allergy 2 Mental Status Change, Other: See Comments [facility] Comment on above: HALLUCINATES (20 sources) Acetaminophen / HYDROcodone; 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: [HYDROCODONE-ACET AMINOPHEN] Drug Allergy 2 Vomiting [facility] (20 sources) Fish; 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: [FISH] Food Allergy 3 Swelling, Shortness of Breath [facility] (18 sources) Vancomycin Drug Allergy 2 Rash [facility] (10 sources) Piperacillin Drug Allergy 3 [facility] (10 sources) tazobactam Drug Allergy 3 [facility] (20 sources) Aspirin / Dipyridamole; 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: [ASPIRIN-DIPYRIDA MOLE] Drug Allergy 3 Other: See Comments [facility] Work Phone: (1 source) Morphine Drug Allergy 5 [facility] Rep[facility] (1 source) Piperacillin Drug Allergy 5 [facility] Rep[facility] (1 source) tazobactam Drug Allergy 5 [facility] Repository (1 source) Vancomycin Drug Allergy 5 [facility] Repository Medications Current Medications Medication Drug Class(es) [...] SUPPLEMENT Start: 10-27-2014 take 1 capsule by [facility] every week cholecalciferol, Vitamin D3, (VITAMIN D3) 50,000 unit cap capsule Indications: Vitamin D deficiency Take 1 capsule by mouth once each week. 12 capsule 3 10/27/2014 Active Comment on above: Take 1 capsule by [facility] once each week. Take 5,000 Units by mouth once daily. Take 1 tablet by [facility] once daily. Fluticasone Furoate-Vilanterol (20 sources) [...] DAY Fluticasone-Umeclidin -Vilanter (12 sources) Start: 01-06-2025 Yfgeffcyxkk-Dctavsync-Ed lanter (Trelegy Ellipta) 200-62.5-25 mcg blister with device Active 1 NMA INHALATION DAILY 60 January 06, 2025 9:00am Start: 2024 End: 01-06-2025 Lzdfmayncsk-Ezjuqijhc-Jympbu er (Trelegy Ellipta) 200-62.5-25 mcg blister with device Discontinued 1 NMA INHALATION DAILY 60 2024 2:12pm January 06, 2025 9:01am Start: 2024 Fluticasone-Um eclidin-Vilanter (Trelegy Ellipta) 200-62.5-25 mcg blister with device Active 1 NMA INHALATION DAILY 60 2024 2:12pm Start: 2024 Fluticasone-Um eclidin-Vilanter (Trelegy Ellipta) 200-62.5-25 mcg blister with device Active 1 NMA INHALATION DAILY 2024 2:12pm Start: 12-01-2023 End: 2024 Vrqmeseqpcl-Szsvktyku-Ucjshq er (Trelegy Ellipta) 200-62.5-25 mcg blister with device Discontinued 1 NMA INHALATION DAILY 60 December 01, 2023 12:00am 2024 2:15pm Start: 12-01-2023 End: 2024 Aqpvoduwfkn-Rsfsavpcz-Lsvyqv er (Trelegy Ellipta) 200-62.5-25 mcg blister with [...] 12:00am Start: 12-08-2021 take 1 tablet by [facility] twice daily Naproxen (Naprosyn) 500 mg [...] Comment on above: Take 1 capsule by [facility] twice daily for 5 days. 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 Chronic obstructive pulmonary disease, unspecified Start: 07-20-2023 End: 12-01-2023 Ggqjodkntu-Phaicaoz-Exmxqqww ol (Breztri Aerosphere) 160-9-4.8 mcg/actuation HFA aerosol inhaler Discontinued 2 NMA INHALATION TWICE A DAY 3 July 20, 2023 4:04pm December 01, 2023 1:18pm Start: 07-20-2023 Budesonide-Gly copyr-Formoterol (Breztri Aerosphere) 160-9-4.8 mcg/actuation HFA aerosol inhaler Active 2 INH INHALATION TWICE A DAY 3 July 20, 2023 4:04pm Start: 04-24-2023 End: 07-20-2023 Tmyfyblxaf-Hmjmvzda-Aheuaqxg ol (Breztri Aerosphere) 160-9-4.8 mcg/actuation HFA aerosol inhaler Discontinued 2 NMA INHALATION TWICE A DAY 3 3 April 24, 2023 2:51pm July 20, 2023 4:04pm 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 Chronic obstructive pulmonary disease, unspecified Start: 04-24-2023 End: 07-20-2023 Aerlbfxehx-Hxianmva-Ewjpptqx ol (Breztri Aerosphere) 160-9-4.8 mcg/actuation HFA aerosol inhaler Discontinued 2 NMA INHALATION TWICE A DAY 3 April 24, 2023 2:51pm July 20, 2023 4:04pm Start: 04-24-2023 End: 07-20-2023 Dgffbexzfq-Lgqpjbyh-Keslitln ol (Breztri Aerosphere) 160-9-4.8 mcg/actuation HFA aerosol inhaler Discontinued 2 INH INHALATION TWICE A DAY 3 April 24, 2023 2:51pm July 20, 2023 4:04pm Start: 12-14-2022 End: 04-24-2023 Zqyqskvjis-Pwqtitpy-Crheldks ol (Breztri Aerosphere) 160-9-4.8 mcg/actuation HFA aerosol inhaler Discontinued 2 NMA INHALATION TWICE A DAY 3 3 December 14, 2022 2:07pm April 24, 2023 2:51pm 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 Chronic obstructive pulmonary disease, unspecified Start: 12-14-2022 End: 04-24-2023 Jiclunnwrf-Mbvuasod-Innidkzk ol (Breztri Aerosphere) 160-9-4.8 mcg/actuation HFA aerosol inhaler Discontinued 2 NMA INHALATION TWICE A DAY 3 December 14, 2022 2:07pm April 24, 2023 2:51pm Start: 12-14-2022 End: 04-24-2023 Xseakajmry-Rkdajvir-Lhemdjth ol (Breztri Aerosphere) 160-9-4.8 mcg/actuation HFA aerosol [...] of therapy completed) Start: 09-13-2022 End: 12-14-2022 Woevnacapz-Etjzftjm-Lxbdqxfk ol (Breztri Aerosphere) 160-9-4.8 mcg/actuation HFA aerosol inhaler Discontinued 2 NMA INHALATION TWICE A DAY 10.7 3 September 13, 2022 12:00am December 14, 2022 2:08pm 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 Chronic obstructive pulmonary disease, unspecified Start: 09-13-2022 End: 12-14-2022 Ukgxaheoxr-Hluqolfq-Xykisgaa ol (Breztri Aerosphere) 160-9-4.8 mcg/actuation HFA aerosol inhaler Discontinued 2 NMA INHALATION TWICE A DAY 10.7 September 13, 2022 12:00am December 14, 2022 2:08pm Start: 09-13-2022 End: 12-14-2022 Lhfsbtcjci-Dawunmbl-Pytdqtla ol (Breztri Aerosphere) 160-9-4.8 mcg/actuation HFA aerosol [...] Comment on above: Take 1 capsule by [facility] every 8 hours as needed for up [...] March 10, 2013 2:19pm polyethylene glycol 3350 359287 mg / potassium chloride 2970 mg / sodium bicarbonate 6740 mg / sodium chloride 5860 mg / sodium sulfate 42308 mg powder for oral solution (1 source) [...] Coronary arteriosclerosis; 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: [Atherosclerotic heart disease of [place] coronary artery without angina pectoris] 06-30-2022 Chronic [...] source) Long-term current use of anticoagulant; 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: [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 anticoagulants] 01-31-2025 Episodic Other [...] Basophils (Bld) [#/Vol] 0.04 10*3/uL Normal <0.11 [facility] Comment on above: Order Comment: Speci men Type: BLOOD SPECIMENOrdering Facility: [facility] Address: [address] [place] [address] Performed By: #### 5 7021-8 ####[facility] [id number] [place] [address] [place] Basophils/100 WBC (Bld) 0.8 % Normal [facility] Comment on above: Order Comment: Speci men Type: BLOOD SPECIMENOrdering Facility: [facility] Address: [address] [place] [address] Performed By: #### 5 7021-8 ####[facility] [id number] [place] [address] [place] Differential cell count method Nom (Bld) Auto Normal [facility] Comment on above: Order Comment: Speci men Type: BLOOD SPECIMENOrdering Facility: [facility] Address: [address] [place] [address] Performed By: #### 5 7021-8 ####[facility] [id number] [place] [address] [place] Eosinophils (Bld) [#/Vol] 0.15 10*3/uL Normal <0.46 [facility] Comment on above: Order Comment: Speci men Type: BLOOD SPECIMENOrdering Facility: [facility] Address: [address] [place] [address] Performed By: #### 5 7021-8 ####[facility] [id number] [place] [address] [place] Eosinophils/100 WBC (Bld) 3.0 % Normal [facility] Comment on above: Order Comment: Speci men Type: BLOOD SPECIMENOrdering Facility: [facility] Address: [address] [place] [address] Performed By: #### 5 7021-8 ####[facility] [id number] [place] [address] [place] Erythrocyte distribution width (RBC) [Ratio] 13.3 % Normal 11.5-15.0 [facility] Comment on above: Order Comment: Speci men Type: BLOOD SPECIMENOrdering Facility: [facility] Address: [address] [place] [address] Performed By: #### 5 7021-8 ####[facility] [id number] [place] [address] [place] Hematocrit (Bld) [Volume fraction] 41.6 % Normal 36.0-46.0 [facility] Comment on above: Order Comment: Speci men Type: BLOOD SPECIMENOrdering Facility: [facility] Address: [address] [place] [address] Performed By: #### 5 7021-8 ####[facility] [id number] [place] [address] [place] Hemoglobin (Bld) [Mass/Vol] 13.6 g/dL Normal 11.5-15.5 [facility] Comment on above: Order Comment: Speci men Type: BLOOD SPECIMENOrdering Facility: [facility] Address: [address] [place] [address] Performed By: #### 5 7021-8 ####[facility] [id number] [place] [id number] [place] Immature granulocytes (Bld) [#/Vol] 10*3/uL Normal <0.10 [facility] Comment on above: Order Comment: Speci men Type: BLOOD SPECIMENOrdering Facility: [facility] Address: [address] [place] [address] Performed By: #### 5 7021-8 ####[facility] [id number] [place] [address] [place] Immature granulocytes/100 WBC (Bld) 0.2 % Normal [facility] Comment on above: Order Comment: Speci men Type: BLOOD SPECIMENOrdering Facility: [facility] Address: [address] [place] [address] Performed By: #### 5 7021-8 ####[facility] [id number] [place] [address] [place] Lymphocytes (Bld) [#/Vol] 1.24 10*3/uL Normal 1.00-4.00 [facility] Comment on above: Order Comment: Speci men Type: BLOOD SPECIMENOrdering Facility: [facility] Address: [address] [place] [address] Performed By: #### 5 7021-8 ####[facility] [id number] [place] [address] [place] Lymphocytes/100 WBC (Bld) 24.7 % Normal [facility] Comment on above: Order Comment: Speci men Type: BLOOD SPECIMENOrdering Facility: [facility] Address: [address] [place] [address] Performed By: #### 5 7021-8 ####[facility] [id number] [place] [address] [place] MCH (RBC) [Entitic mass] 31.1 pg Normal 26.0-34.0 [facility] Comment on above: Order Comment: Speci men Type: BLOOD SPECIMENOrdering Facility: [facility] Address: [address] [place] [address] Performed By: #### 5 7021-8 ####[facility] [id number] [place] [address] [place] MCHC (RBC) [Mass/Vol] 32.7 g/dL Normal 30.5-36.0 [facility] Comment on above: Order Comment: Speci men Type: BLOOD SPECIMENOrdering Facility: [facility] Address: [address] [place] [address] Performed By: #### 5 7021-8 ####[facility] [id number] [place] [address] [place] MCV (RBC) [Entitic vol] 95.2 fL Normal 80.0-100.0 [facility] Comment on above: Order Comment: Speci men Type: BLOOD SPECIMENOrdering Facility: [facility] Address: [address] [place] [address] Performed By: #### 5 7021-8 ####[facility] [id number] [place] [address] [place] Monocytes (Bld) [#/Vol] 0.41 10*3/uL Normal <0.87 [facility] Comment on above: Order Comment: Speci men Type: BLOOD SPECIMENOrdering Facility: [facility] Address: [address] [place] [address] Performed By: #### 5 7021-8 ####[facility] [id number] [address] [place] Monocytes/100 WBC (Bld) 8.2 % Normal [facility] Comment on above: Order Comment: Speci men Type: BLOOD SPECIMENOrdering Facility: [facility] Address: [address] [place] [address] Performed By: #### 5 7021-8 ####[facility] [id number] [place] [address] [place] Neutrophils (Bld) [#/Vol] 3.18 10*3/uL Normal 1.45-7.50 [facility] Comment on above: Order Comment: Speci men Type: BLOOD SPECIMENOrdering Facility: [facility] Address: [address] [place] [address] Performed By: #### 5 7021-8 ####[facility] [id number] [place] [address] [place] Neutrophils/100 WBC (Bld) 63.1 % Normal [facility] Comment on above: Order Comment: Speci men Type: BLOOD SPECIMENOrdering Facility: [facility] Address: [address] [place] [address] Performed By: #### 5 7021-8 ####[facility] [id number] [place] [address] [place] Nucleated RBC (Bld) [#/Vol] 10*3/uL Normal <0.01 [facility] Comment on above: Order Comment: Speci men Type: BLOOD SPECIMENOrdering Facility: [facility] Address: [address] [place] [address] Performed By: #### 5 7021-8 ####[facility] [id number] [place] [address] [place] Nucleated RBC/100 WBC (Bld) [Ratio] 0.0 /100 WBC Normal [facility] Comment on above: Order Comment: Speci men Type: BLOOD SPECIMENOrdering Facility: [facility] Address: [address] [place] [address] Performed By: #### 5 7021-8 ####[facility] [id number] [place] [address] [place] Platelet mean volume (Bld) [Entitic vol] 9.3 fL Normal 9.0-12.7 [facility] Comment on above: Order Comment: Speci men Type: BLOOD SPECIMENOrdering Facility: [facility] Address: [address] [place] [address] Performed By: #### 5 7021-8 ####[facility] [id number] [place] [address] [place] Platelets (Bld) [#/Vol] 200 10*3/uL Normal 150-400 [facility] Comment on above: Order Comment: Speci men Type: BLOOD SPECIMENOrdering Facility: [facility] Address: [address] [place] [address] Performed By: #### 5 7021-8 ####[facility] [id number] [place] [address] [place] RBC (Bld) [#/Vol] 4.37 10*6/uL Normal 3.90-5.20 [facility] Comment on above: Order Comment: Speci men Type: BLOOD SPECIMENOrdering Facility: [facility] Address: [address] [place] [address] Performed By: #### 5 7021-8 ####[facility] [id number] [place] [address] [place] WBC (Bld) [#/Vol] 5.03 10*3/uL Normal 3.70-11.00 [facility] Comment on above: Order Comment: Speci men Type: BLOOD SPECIMENOrdering Facility: [facility] Address: [address] [place] [address] Performed By: #### 5 7021-8 ####[facility] [id number] [address] [place] CNOVon 03-26-2025 CNOV Office Visit (FAMPWS ) TEMITOPE HADDAD ([id number]) 1955 F [facility] Date Time Provider Department 03/26/25 1:00 PM SHAVONNE DONATO During your visit today, we recorded the following information about you: Pulse Blood pressure Weight 65/minute 122/82 79.4 kg Shavonne Donato APRN.BOW MAKER PRODUCTION 03/26/2025 1:22 PM Signed 03/26/2025 Patient presents with: Follow Up Recording using [employer] software for draft documentation of the visit was discussed with the patient/authorized personal financial representative; all questions welcomed and answered. Patient/authorized personal financial representative agreed to proceed SUBJECTIVE: This is [...] Has grandchildren. - History of living in [place] and [place]; expresses a desire to return to [place]. - History of a difficult marriage; after 25 years. PAST MEDICAL HISTORY Diagnosis Date Abdominal pain, right lower quadrant Benign neoplasm of colon Chronic kidney disease (CKD), stage III (moderate) ([facility]) COPD (chronic obstructive pulmonary disease) ([facility]) Dr. Wallace Depression Dysuria Generalized anxiety disorder [...] skin discoloration, (more content not included)... Normal [facility] Comprehensive metabolic 2000 panelon 03-26-2025 Albumin [Mass/Vol] 4.3 g/dL Normal 3.9-4.9 [facility] Comment on above: Order Comment: Speci vandana Type: BLOOD SPECIMENOrdering Facility: [facility] Address: [address] [place] [address] Performed By: #### 3 016-3, 22362-7, ####[facility] [id number] [place] [address] [place] ALP [Catalytic activity/Vol] 73 U/L Normal 34-123 [facility] Comment on above: Order Comment: Awa ross Type: BLOOD SPECIMENOrdering Facility: [facility] Address: [address] [place] [address] Performed By: #### 3 016-3, 92657-8, ####[facility] [id number] [place] [address] [place] ALT [Catalytic activity/Vol] 37 U/L Normal 7-38 [facility] Comment on above: Order Comment: Arniei vandana Type: BLOOD SPECIMENOrdering Facility: [facility] Address: [address] [place] [address] Performed By: #### 3 016-3, 39478-2, 35278-4 ####[facility] [id number] [place] [address] [place] Anion gap [Moles/Vol] 12 mmol/L Normal 8-15 [facility] Comment on above: Order Comment: Speci men Type: BLOOD SPECIMENOrdering Facility: [facility] Address: [address] [place] [address] Performed By: #### 3 016-3, 32384-8, ####[facility] [id number] [place] [address] [place] AST [Catalytic activity/Vol] 34 U/L Normal 13-35 [facility] Comment on above: Order Comment: Speci men Type: BLOOD SPECIMENOrdering Facility: [facility] Address: [address] [place] [address] Performed By: #### 3 016-3, 80754-3, ####[facility] [id number] [place] [address] [place] Bilirubin [Mass/Vol] 0.4 mg/dL Normal 0.2-1.3 [facility] Comment on above: Order Comment: Speci men Type: BLOOD SPECIMENOrdering Facility: [facility] Address: [address] [place] [address] Performed By: #### 3 016-3, 32742-9, ####[facility] [id number] [place] [address] [place] Calcium [Mass/Vol] 9.6 mg/dL Normal 8.5-10.2 [facility] Comment on above: Order Comment: Speci men Type: BLOOD SPECIMENOrdering Facility: [facility] Address: [address] [place] [address] Performed By: #### 3 016-3, 87211-1, 26633-4 ####[facility] [id number] [place] [address] [place] Chloride [Moles/Vol] 103 mmol/L Normal 98-107 [facility] Comment on above: Order Comment: Speci men Type: BLOOD SPECIMENOrdering Facility: [facility] Address: [address] [place] [address] Performed By: #### 3 016-3, 01453-1, ####[facility] [id number] [place] [address] [place] CO2 [Moles/Vol] 27 mmol/L Normal 22-30 [facility] Comment on above: Order Comment: Speci men Type: BLOOD SPECIMENOrdering Facility: [facility] Address: [address] [place] [address] Performed By: #### 3 016-3, 03520-8, ####[facility] [id number] [place] [address] [place] Creatinine [Mass/Vol] 1.05 mg/dL High 0.58-0.96 [facility] Comment on above: Order Comment: Speci men Type: BLOOD SPECIMENOrdering Facility: [facility] Address: [address] [place] [address] Performed By: #### 3 016-3, 14057-8, ####[facility] [id number] [place] [address] [place] eGFRcr SerPlBld CKD-EPI 2020 58 mL/min/1.73m??? Low >=60 [facility] Comment on above: Order Comment: Speci men Type: BLOOD SPECIMENOrdering Facility: [facility] Address: [address] [place] [address] Result Comment: [place] mated Glomerular Filtration Rate [...] actual GFR. Performed By: #### 3 016-3, 40271-0, 40777-3 ####[facility] [id number] [place] [address] [place] Glucose [Mass/Vol] 95 mg/dL Normal 74-99 [facility] Comment on above: Order Comment: Speci men Type: BLOOD SPECIMENOrdering Facility: [facility] Address: [address] [place] [address] Result Comment: The [place] Diabetes Association (ADA) provides guidance for cutoff [...] Standards of Medical Care in Diabetes 2016, [place] [employer] Association. Diabetes Care. 2016.39(Suppl 1). Performed By: #### 3 016-3, 43393-9, ####[facility] [id number] [place] [address] [place] Potassium [Moles/Vol] 4.0 mmol/L Normal 3.7-5.1 [facility] Comment on above: Order Comment: Speci men Type: BLOOD SPECIMENOrdering Facility: [facility] Address: [address] [place] [address] Performed By: #### 3 016-3, 74395-0, 30480-4 ####[facility] [id number] [place] [address] [place] Protein [Mass/Vol] 7.2 g/dL Normal 6.3-8.0 [facility] Comment on above: Order Comment: Speci men Type: BLOOD SPECIMENOrdering Facility: [facility] Address: [address] [place] [address] Performed By: #### 3 016-3, 37790-7, 28150-8 ####[facility] [id number] [place] [address] [place] Sodium [Moles/Vol] 142 mmol/L Normal 136-144 [facility] Comment on above: Order Comment: Speci men Type: BLOOD SPECIMENOrdering Facility: [facility] Address: [address] [place] [address] Performed By: #### 3 016-3, 02822-3, 20256-2 ####[facility] [id number] [place] [address] [place] Urea nitrogen [Mass/Vol] 19 mg/dL Normal 7-21 [facility] Comment on above: Order Comment: Speci men Type: BLOOD SPECIMENOrdering Facility: [facility] Address: [address] [place] [address] Performed By: #### 3 016-3, 80325-5, 59407-7 ####[facility] [id number] [place] [address] [place] Lipid 1996 panelon 5 Cholesterol [Mass/Vol] 152 mg/dL Normal <200 [facility] Comment on above: Order Comment: Speci men Type: BLOOD SPECIMENOrdering Facility: [facility] Address: [address] [place] [address] Result Comment: <200 mg/dL, Desirable 200-239 mg/dL, Borderline high >239 mg/dL, High Performed By: #### 3 016-3, 20496-8, 16728-8 ####[facility] [id number] [place] [address] [place] Cholesterol in HDL [Mass/Vol] 64 mg/dL Normal >39 [facility] Comment on above: Order Comment: Speci men Type: BLOOD SPECIMENOrdering Facility: [facility] Address: [address] [place] [address] Result Comment: 40-5 9 mg/dL, Acceptable >59 mg/dL, High: Negative risk factor for coronary heart disease <40 mg/dL, Low: Positive risk factor for coronary heart disease Performed By: #### 3 016-3, 87559-1, ####[facility] [id number] [place] [address] [place] Cholesterol in LDL [Mass/Vol] 73 mg/dL Normal <100 [facility] Comment on above: Order Comment: Speci men Type: BLOOD SPECIMENOrdering Facility: [facility] Address: [address] [place] [address] Result Comment: <100 mg/dL, Optimal 100-129 mg/dL, Near optimal/above optimal 130-159 mg/dL, Borderline high 160-189 mg/dL, High >189 mg/dL, Very high Secondary prevention optimal LDL Cholesterol levels are recommended to be <70 mg/dL LDL cholesterol is calculated using the Berumen-NIH equation. Performed By: #### 3 016-3, 40869-4, ####[facility] [id number] [place] [address] [place] Cholesterol in LDL/Cholesterol in HDL [Mass ratio] 1.14 {ratio} Normal <2.54 [facility] Comment on above: Order Comment: Speci men Type: BLOOD SPECIMENOrdering Facility: [facility] Address: [address] [place] [address] Result Comment: Kishan peng: 1. National Cholesterol Education Program ATP III Guideline At-A-Glance Quick Desk Reference: National Heart, Lung, and Blood [place]. National Institutes of Health. 2001: NIH Publication No. 01-3305. 2. An International Atherosclerosis Society position paper: global recommendations for the management of dyslipidemia: executive summary, Atherosclerosis. 2014: 232(2):410-413. Performed By: #### 3 016-3, 75582-2, ####[facility] [id number] [place] [address] [place] Cholesterol in VLDL [Mass/Vol] 11 mg/dL Normal <30 [facility] Comment on above: Order Comment: Speci men Type: BLOOD SPECIMENOrdering Facility: [facility] Address: [address] [place] [address] Performed By: #### 3 016-3, 99204-2, ####[facility] [id number] [place] [address] [place] Cholesterol non HDL [Mass/Vol] 88 mg/dL Normal <130 [facility] Comment on above: Order Comment: Speci men Type: BLOOD SPECIMENOrdering Facility: [facility] Address: [address] [place] [address] Result Comment: <130 mg/dL, Optimal 130-159 mg/dL, Near optimal/above optimal 160-189 mg/dL, Borderline high 190-219 mg/dL, High >219 mg/dL, Very high Secondary prevention optimal non HDL Cholesterol levels are recommended to be <100 mg/dL Performed By: #### 3 016-3, 79352-2, ####[facility] [id number] [place] [address] [place] Cholesterol.total/Chol esterol in HDL [Mass ratio] 2.38 {ratio} Normal <5.10 [facility] Comment on above: Order Comment: Speci men Type: BLOOD SPECIMENOrdering Facility: [facility] Address: [address] [place] [address] Performed By: #### 3 016-3, 42825-6, ####[facility] [id number] [address] [place] FASTING TIME 17 hrs Normal [facility] Comment on above: Order Comment: Speci men Type: BLOOD SPECIMENOrdering Facility: [facility] Address: [address] [place] [address] Performed By: #### 3 016-3, 11892-5, ####[facility] [id number] [place] [address] [place] Triglyceride [Mass/Vol] 75 mg/dL Normal <150 [facility] Comment on above: Order Comment: Speci men Type: BLOOD SPECIMENOrdering Facility: [facility] Address: [address] [place] [address] Result Comment: <150 mg/dL, Normal 150-199 mg/dL, Borderline high 200-499 mg/dL, High >499 mg/dL, Very high Performed By: #### 3 016-3, 07412-4, 78333-9 ####[facility] [id number] [place] [id number] [place] TSH SerPl-aCncon 03-26-2025 TSH Qn 3.210 m[IU]/L Normal 0.270-4.20 0 [facility] Comment on above: Order Comment: Speci men Type: BLOOD SPECIMENOrdering Facility: [facility] Address: [address] [place] [address] Performed By: #### 3 016-3, 81939-8, 27116-9 ####[facility] [id number] [address] [facility] LUIS SCREENING W TOMOon 03-11 LUIS SCREENING W CALI * * *Final Report* * * DATE OF EXAM: Mar 11 2025 1:18PM [facility] 0582 - LUIS SCREENING W CALI / PROCEDURE REASON: Encounter for screening mammogram for breast cancer * * * * Physician Interpretation * * * * RESULT: [place] [address] #[id number] - LUIS SCREENING W CALI HISTORY: 69 [...] Hemal Mejia M.D. Electronically signed on: 03/14/2025 Stone Engraver: MARY Transcribe Date/Time: Mar 11 2025 12:49P Dictated by: HEMAL MEJIA MD This examination was interpreted and the report reviewed and electronically signed by: HEMAL MEJIA MD on Mar 14 2025 5:38PM EST [id number] Normal [facility] CNOVon 02-26-2025 CNOV Office Visit (FAMPWS ) TEMITOPE HADDAD ([id number]) 1955 F [facility] Date Time Provider Department 02/26/25 1:00 PM TATIANA RONQUILLO FAMPWS During your visit today, we recorded the following information about you: Temperature Pulse Respiration Blood pressure 97.4 degrees 71/minute 18/minute 118/58 Weight Height 78.6 kg 1.676 m Tatiana Ronquillo MD 02/26/2025 1:13 PM Signed Chief Complaint Patient presents with: ER F/U Recording using [employer] software for draft documentation of the visit was discussed with the patient/authorized personal financial representative; all questions welcomed and answered. Patient/authorized personal financial representative agreed to proceed HPI Temitope Haddad [...] bruising or scrapes. - Initial evaluation at [facility] included x-rays of the hand and [...] Chronic kidney disease (CKD), stage III (moderate) ([facility]) COPD (chronic obstructive pulmonary disease) ([facility]) Dr. Wallace Depression Dysuria Generalized anxiety disorder [...] Left leg, managed by plastic surgery Stroke ([facility]) x 4 Suprapubic pain Vitamin D deficiency [...] (CELEXA) 10 (more content not included)... Normal [facility] XR DIGIT 3V FRONTAL/LAT/OBL RTon 02-26-2025 XR [...] periarticular erosions. IMPRESSION: No acute osseous abnormality Stone Engraver: GASPER Transcribe Date/Time: Mar 03 2025 4:00P Dictated by : UBALDO ALICIA MD This examination was interpreted and the report reviewed and electronically signed by: UBALDO ALICIA MD on Mar 03 2025 4:02PM EST [id number] Normal [facility] Brain/Head without Contrasto n 01-31-2025 Brain/Head without Contrast [facility] Imaging Services [address] [place] [address] Brain/Head without Contrast MR#: [id number] Acct: [id number] Name: TEMITOPE HADDAD Rep #: [id number] : 1955 F 69 From: Moy Barrios MD PCP: Dr. Bird Ronquillo MD Status: REG ER Study: Brain/Head without Contrast Date of Exam: 10/20 Exam# [id number] Ordering Dr: Jenni Payne DO PROCEDURE: BRAIN/HEAD [...] Contrast IMPRESSION: No acute abnormality Reading Location: [facility] CC: Dr. Bird Ronquillo MD; Dr. Jenni Payne DO Stone Engraver: Signed Normal [facility] CBC-Complete Blood Cnt No Di ffon 01-31-2025 Erythrocyte distribution width (RBC) [Ratio] 14.2 % Normal 11.6-14.6 [facility] Comment on above: Performed By: #### L 500.2500, L500.3400, L100.0100 #### [facility] Laboratory [address] [place], [address] Hematocrit (Bld) [Volume fraction] 38.5 % Normal 37-47 [facility] Comment on above: Performed By: #### L 500.2500, L500.3400, L100.0100 #### [facility] Laboratory [address] [place], [address] Hemoglobin (Bld) [Mass/Vol] 12.7 g/dL Normal 12.0-15.0 [facility] Comment on above: Performed By: #### L 500.2500, L500.3400, L100.0100 #### [facility] [address] [place], [address] MCH (RBC) [Entitic mass] 31.2 pg Normal 27.0-32.0 [facility] Comment on above: Performed By: #### L 500.2500, L500.3400, L100.0100 #### [facility] Laboratory [address] [place], [address] MCHC (RBC) [Mass/Vol] 33.0 g/dL Normal 32-36 [facility] Comment on above: Performed By: #### L 500.2500, L500.3400, L100.0100 #### [facility] [address] [place], [address] MCV (RBC) [Entitic vol] 94.6 fL Normal 81-99 [facility] Comment on above: Performed By: #### L 500.2500, L500.3400, L100.0100 #### [facility] [address] [place], [address] Platelet mean volume (Bld) [Entitic vol] 8.9 fL Normal 6.2-12.0 [facility] Comment on above: Performed By: #### L 500.2500, L500.3400, L100.0100 #### [facility] Laboratory [address] [place], [address] Platelets (Bld) [#/Vol] 179 10*3/uL Normal 150-450 [facility] Comment on above: Performed By: #### L 500.2500, L500.3400, L100.0100 #### [facility] [address] [place], [address] RBC (Bld) [#/Vol] 4.07 10*6/uL Low 4.2-5.4 [facility] Comment on above: Performed By: #### L 500.2500, L500.3400, L100.0100 #### [facility] [address] [place], [address] RDW SD 48.4 fl High 35.1-43.9 [facility] Comment on above: Performed By: #### L 500.2500, L500.3400, L100.0100 #### [facility] [address] [place], [address] WBC (Bld) [#/Vol] 4.3 10*3/uL Low 4.4-11.0 [facility] Comment on above: Performed By: #### L 500.2500, L500.3400, L100.0100 #### [facility] [address] [place], [address] Emergency Department Summary on 01-31-2025 Emergency Department Summary [facility] Medical Records Department [address] [place] [address] Emergency Department Summary 01/31/25 MR#: [id number] Acct: [id number] Name: PETERTEMITOPE Rios Rep #: [id number] : 1955 69 From: Jenni Payne DO [...] been in her normal state of health. [facility] Medical History Osteoporosis Kidney stones Kidney disease GERD (gastroesophageal reflux disease) Myocardial infarct Internal impingement of right shoulder Hypothyroidism Abnormal Holter monitor finding Sinus pause Mixed hyperlipidemia Atherosclerotic heart disease of [place] coronary artery without angina pectoris Essential hypertension [...] included)... Normal [facility] Erythrocyte distribution wid th ratioOrdered By: Jenni Payne on 01-31-2025 Erythrocyte distribution width (RBC) [Ratio] 14.2 % 11.6-14.6 [facility] Erythrocyte distribution wid th standard deviationOrdered By: Jenni Payne on 01-31-2025 Erythrocyte distribution width (RBC) [Ratio] 48.4 fl High 35.1-43.9 [facility] Hand Min 3 Viewson Hand Min 3 Views [facility] Imaging Services [address] [place] [address] Hand Min 3 Views MR#: [id number] Acct: [id number] Name: TEMITOPE HADDAD Rep #: [id number] : 1955 F 69 From: Aylin Bull MD PCP: Dr. Bird Ronquillo MD Status: PRE ER Study: Hand Min 3 Views Date of Exam: 01/31/25 Exam# [id number] Ordering Dr: Provider,Ed P. PROCEDURE: HAND MIN 3 VIEWS 01/31/2025 REASON FOR EXAM: PAIN. Patient fell 2 days ago. TECHNIQUE: Procedure Code: PENDING SALE TO [facility] Modality: DX Procedure: HAND MIN 3 VIEWS Laterality: Right COMPARISON: 07/19/2022 FINDINGS: BONES: No acute fracture or focal osseous lesion. JOINTS: No dislocation. The joint spaces are preserved. SOFT TISSUES: The soft tissues are unremarkable. RAD/Hand Min 3 Views IMPRESSION: No acute osseous abnormality. Reading Location: [id number] CC: Dr. Bird Ronquillo MD; ED PHYSICIAN PROVIDER Stone Engraver: Signed Normal [facility] Hematocrit Auto (Bld) [Volum e fraction]Ordered By: Jenni Payne on 01-31-2025 Hematocrit (Bld) [Volume fraction] 38.5 % 37-47 [facility] Hemoglobin measurementOrdere d By: Jenni Payne on 01-31-2025 Hemoglobin (Bld) [Mass/Vol] 12.7 g/dL 12.0-15.0 [facility] MCV (mean corpuscular volume ) determinationOrdered By: Jenni Payne on 01-31-2025 MCV (RBC) [Entitic vol] 94.6 fL 81-99 [facility] Mean corpuscular hemoglobin (MCH) determinationOrdered By: Jenni Payne on 01-31-2025 MCH (RBC) [Entitic mass] 31.2 pg 27.0-32.0 [facility] Mean corpuscular hemoglobin concentration (MCHC) determinationOrdered By: Jenni Payne on 01-31-2025 MCHC (RBC) [Mass/Vol] 33.0 g/dL 32-36 [facility] Mean platelet volume determi nationOrdered By: Jenni Payne on 01-31-2025 Platelet mean volume (Bld) [Entitic vol] 8.9 fL 6.2-12.0 [facility] Platelet countOrdered By: Taurus Payne on 01-31-2025 Platelets (Bld) [#/Vol] 179 10*3/uL 150-450 [facility] RBC Auto (Bld) [#/Vol]Ordere d By: Jenni Payne on 01-31-2025 RBC (Bld) [#/Vol] 4.07 10*6/uL Low 4.2-5.4 [facility] Shoulder min 2 Viewson 01-31 Shoulder min 2 Views [facility] Imaging Services [address] [place] [address] Shoulder min 2 Views MR#: [id number] Acct: [id number] Name: TEMITOPE HADDAD Rep #: [id number] : 1955 F 69 From: Aylin Bull MD PCP: Dr. Bird Ronquillo MD Status: PRE ER Study: Shoulder min 2 Views Date of Exam: 01/31/25 Exam# [id number] Ordering Dr: Provider,Ed P. PROCEDURE: SHOULDER MIN [...] IMPRESSION: No acute osseous abnormality. Reading Location: [id number] CC: Dr. Bird Ronquillo MD; ED PHYSICIAN PROVIDER Stone Engraver: Signed Normal [facility] White blood cell (WBC) count Ordered By: Jenni Payne on 01-31-2025 WBC (Bld) [#/Vol] 4.3 10*3/uL Low 4.4-11.0 [facility] Emergency Department Summary on 01-19-2025 Emergency Department Summary [facility] Medical Records Department [address] [place] [address] Emergency Department Summary 01/19/25 MR#: [id number] Acct: [id number] Name: TEMITOPE HADDAD Rep #: [id number] : 1955 69 From: Naif Jackson MD [...] No dysuria or hematuria or other symptoms. [facility] Medical History Osteoporosis Kidney stones Kidney disease GERD (gastroesophageal reflux disease) Myocardial infarct Internal impingement of right shoulder Hypothyroidism Abnormal Holter monitor finding Sinus pause Mixed hyperlipidemia Atherosclerotic heart disease of [place] coronary artery without angina pectoris Essential hypertension [...] included)... Normal [facility] Lumbar Spine 2 or 3 Viewson 01-19-2025 Lumbar Spine 2 or 3 Views [facility] Imaging Services [address] [place] [address] Lumbar Spine 2 or 3 Views MR#: [id number] Acct: [id number] Name: TEMITOPE HADDAD Rep #: [id number] : 1955 F 69 From: Moise Lea DO PCP: Dr. Bird Ronquillo MD Status: REG ER Study: Lumbar Spine 2 or 3 Views Date of Exam: Exam# [id number] Ordering Dr: Naif Jackson MD PROCEDURE: LUMBAR [...] IMPRESSION: No acute process detected. Reading [facility] CC: Dr. Naif Jackson MD; Dr. Bird Ronquillo MD Stone Engraver: Signed Normal [facility] Pulmonary Visit Reporton Pulmonary Visit Report [facility] [place] [address] [place] [address] OFFICE VISIT Date of Service: 12/05/24 MR#: [id number] Acct: [id number] Name: TEMITOPE HADDAD Rep #: [id number] : 1955 Provider: CARLO Fernandez Age/Sex: 69/F [place] [facility] Status: Signed Assessment and Plan Assessment and [...] Additional Comments: This note was generated with [employer] software. It may contain incorrect words, spelling, [...] Reasons: 9 M FU Chief Complaint: COPD Coffee Host Required: No DME Vendor: Geno Accompanied by: [...] included)... Normal [facility] Low Dose CT Lung Screeningon 11-18-[address] Lung Screening [facility] Imaging Services [address] [place] [address] Lung Screening MR#: [id number] Acct: [id number] Name: TEMITOPE HADDAD Rep #: [id number] : 1955 F 69 From: Oskar nichole MD PCP: Dr. Bird Ronquillo MD Status: REG CLI Study: Low Dose CT Lung Screening Date of Exam: 11/18 Exam# [id number] Ordering Dr: Robin Fernandez STONE LATHE OPERATOR STONE LATHE OPERATOR-C PROCEDURE: LOW DOSE CT LUNG SCREENING 11/18/2024 [...] use of iterative reconstruction technique). REFERENCE LINK: [employer] Lung-RADS RADIATION DOSE SUMMARY: CTDlvol: 3.02 mGy [...] LDCT. Other Significant Findings: None. Reading Location: [id number] CC: CARLO Fernandez; Dr. Bird Ronquillo MD Stone Engraver: [facility] (FAMPWS ) TEMITOPE HADDAD ([id number]) 1955 F T Date Time Provider Department [...] the visit was discussed with the patient/authorized personal financial representative; all questions welcomed and answered. Patient/authorized personal financial representative agreed to proceed HPI Temitope Haddad [...] Chronic kidney disease (CKD), stage III (moderate) ([facility]) COPD (chronic obstructive pulmonary disease) ([facility]) Dr. Wallace Depression Dysuria Generalized anxiety disorder [...] Left leg, managed by plastic surgery Stroke ([facility]) x 4 Suprapubic pain Vitamin D deficiency [...] Disease Father (more content not included)... Normal [facility] XR TIBIA FIBULA 2V AP/LAT RT on [...] distal anterior lower leg. IMPRESSION: No fracture Stone Engraver: PSCB Transcribe Date/Time: Oct 23 2024 11:58A Dictated by : RYAN BOYCE MD This examination was interpreted and the report reviewed and electronically signed by: RYAN BOYCE MD on Oct 23 2024 11:59AM EST [id number] Normal [facility] XR Tibia and Fibula - right AP and Lateralon 10-23-2024 IMPRESSION: No fract ure Stone Engraver: PSCB Transcribe Date/Time: Oct 23 2024 11:58A [...] anterior lower leg. DIVISION OF RADIOLOGY Provider, [facility] - 10/23/2024 * * *Final Report* [...] anterior lower leg. IMPRESSION IMPRESSION: No fracture Stone Engraver: GASPER Transcribe Date/Time: Oct 23 2024 11:58A Dictated by : RYAN BOYCE MD This examination was interpreted and the report reviewed and electronically signed by: RYAN BOYCE MD on Oct 23 2024 11:59AM EST [facility] Radiology Study observation (narrative) [facility] XR Tibia and Fibula - right AP and LateralOrdered By: Ccf Provider on 10-23-2024 [facility] CNPNon 10-15-2024 CNPN Telephone (FAMPWS) TEMITOPE HADDAD ([id number]) 1955 F T Date Time Provider Department [...] ear [H81 (more content not included)... Normal [facility] Abdomen/Pelvis W IV Cont ONL Yon 10-13-2024 Abdomen/Pelvis W IV Cont ONLY [facility] Imaging Services [address] [place] [address] Abdomen/Pelvis W IV Cont ONLY MR#: [id number] Acct: [id number] Name: TEMITOPE HADDAD Rep #: [id number] : 1955 F 69 From: Scooter pelayo MD PCP: Dr. Bird Ronquillo MD Status: REG ER Study: Abdomen/Pelvis W IV Cont ONLY Date of Exam: Exam# [id number] Ordering Dr: Colin Caab DO PROCEDURE: ABDOMEN/PELVIS W IV CONT ONLY [...] Colin Caba DO; Dr. Bird Ronquillo MD Stone Engraver: Signed Normal [facility] Absolute lymphocyte countOrd ered By: Colin Caba on 10-13-2024 Lymphocytes Auto (Unsp spec) [#/Vol] 1.26 10*3/uL 0.83-4.51 [facility] Absolute neutrophil countOrd ered By: Colin Caba on 10-13-2024 Neutrophils (Bld) [#/Vol] 2.5 10*3/uL 2.0-7.7 [facility] Anion gap in Serum or Plasma Ordered By: Colin Caba on 10-13-2024 Anion gap [Moles/Vol] 8 mmol/L 5-15 [facility] Automated lymphocyte count a s percentage of total leukocytesOrdered By: Colin Caba on 10-13-2024 Lymphocytes/100 WBC Auto (Unsp spec) 29.6 % 19-41 [facility] BUN/creatinine ratioOrdered By: Colin Caba on 10-13-2024 Urea nitrogen/Creatinine [Mass ratio] 17.8 mg/mg 10-20 [facility] Basophil percentageOrdered B y: Colin Caba on 10-13-2024 Basophils/100 WBC (Bld) 0.9 % 0-1 [facility] Bilirubin Test strip Ql (U)O rdered By: Colin Caba on 10-13-2024 Bilirubin Ql (U) Negative Negative [facility] Bilirubin, totalOrdered By: Colin Caba on 10-13-2024 Bilirubin [Mass/Vol] 0.41 mg/dL 0.00-1.30 [facility] CBC W/Diff, Automatedon 09-26 Absolute Lymph 1.26 X10 3/uL Normal 0.83-4.51 [facility] Comment on above: Performed By: #### L 500.2500, L500.3400, L100.0100 #### [facility] Laboratory [address] [place], [address] Absolute Neut 2.5 X10 3/uL Normal 2.0-7.7 [facility] Comment on above: Performed By: #### L 500.2500, L500.3400, L100.0100 #### [facility] Laboratory [address] [place], [address] Basophils/100 WBC (Bld) 0.9 % Normal 0-1 [facility] Comment on above: Performed By: #### L 500.2500, L500.3400, L100.0100 #### [facility] Laboratory [address] [place], [address] Eosinophils/100 WBC (Bld) 4.0 % Normal 0-5 [facility] Comment on above: Performed By: #### L 500.2500, L500.3400, L100.0100 #### [facility] Laboratory [address] [place], [address] Erythrocyte distribution width (RBC) [Ratio] 13.3 % Normal 11.6-14.6 [facility] Comment on above: Performed By: #### L 500.2500, L500.3400, L100.0100 #### [facility] Laboratory [address] [place], [address] Hematocrit (Bld) [Volume fraction] 39.7 % Normal 37-47 [facility] Comment on above: Performed By: #### L 500.2500, L500.3400, L100.0100 #### [facility] Laboratory [address], [address] Hemoglobin (Bld) [Mass/Vol] 13.2 g/dL Normal 12.0-15.0 [facility] Comment on above: Performed By: #### L 500.2500, L500.3400, L100.0100 #### [facility] Laboratory [address] [place], [address] IG% 0.200 Normal 0.0-0.9 [facility] Comment on above: Result Comment: IG% - Immature Granulocytes (promyelocytes, myelocytes and metamyelocytes) > 1% indicates that a LEFT SHIFT is Present. Performed By: #### L 500.2500, L500.3400, L100.0100 #### [facility] Laboratory [address] [place], [address] Lymphocytes/100 WBC (Bld) 29.6 % Normal 19-41 [facility] Comment on above: Performed By: #### L 500.2500, L500.3400, L100.0100 #### [facility] Laboratory [address] [place], [address] MCH (RBC) [Entitic mass] 31.4 pg Normal 27.0-32.0 [facility] Comment on above: Performed By: #### L 500.2500, L500.3400, L100.0100 #### [facility] Laboratory [address] [place], [address] MCHC (RBC) [Mass/Vol] 33.2 g/dL Normal 32-36 [facility] Comment on above: Performed By: #### L 500.2500, L500.3400, L100.0100 #### [facility] Laboratory [address] [place], [address] MCV (RBC) [Entitic vol] 94.5 fL Normal 81-99 [facility] Comment on above: Performed By: #### L 500.2500, L500.3400, L100.0100 #### [facility] Laboratory [address] [place], [address] Monocytes/100 WBC (Bld) 7.7 % Normal 0-10 [facility] Comment on above: Performed By: #### L 500.2500, L500.3400, L100.0100 #### [facility] Laboratory [address] [place], [address] Neutrophils/100 WBC (Bld) 57.6 % Normal 47-70 [facility] Comment on above: Performed By: #### L 500.2500, L500.3400, L100.0100 #### [facility] Laboratory [address] [place], [address] Nucleated RBC (Bld) [#/Vol] 0 10*3/uL Normal 0-5 [facility] Comment on above: Performed By: #### L 500.2500, L500.3400, L100.0100 #### [facility] Laboratory [address] [place], [address] Platelet mean volume (Bld) [Entitic vol] 8.7 fL Normal 6.2-12.0 [facility] Comment on above: Performed By: #### L 500.2500, L500.3400, L100.0100 #### [facility] Laboratory [address] [place], [address] Platelets (Bld) [#/Vol] 182 10*3/uL Normal 150-450 [facility] Comment on above: Performed By: #### L 500.2500, L500.3400, L100.0100 #### [facility] Laboratory [address] [place], [address] RBC (Bld) [#/Vol] 4.20 10*6/uL Normal 4.2-5.4 [facility] Comment on above: Performed By: #### L 500.2500, L500.3400, L100.0100 #### [facility] Laboratory [address] [place], [address] RDW SD 46.5 fl High 35.1-43.9 [facility] Comment on above: Performed By: #### L 500.2500, L500.3400, L100.0100 #### [facility] Laboratory [address] [place], [address] WBC (Bld) [#/Vol] 4.3 10*3/uL Low 4.4-11.0 [facility] Comment on above: Performed By: #### L 500.2500, L500.3400, L100.0100 #### [facility] Laboratory [address] [place], [address] Carbon dioxide, total [Moles /volume] in Central venous bloodOrdered By: Colin Caba on 10-13-2024 CO2 [Moles/Vol] 27.8 mmol/L 21.0-32.0 [facility] Chloride assayOrdered By: Vickie Caba on 10-13-2024 Chloride [Moles/Vol] 104 mmol/L 98-108 [facility] Comprehensive Metabolic Prof ilon 10-13-2024 Albumin [Mass/Vol] 3.8 g/dL Normal 3.4-4.8 [facility] Comment on above: Performed By: #### L 500.2500, L500.3400, L100.0100 #### [facility] Laboratory [address] [place], [address] Albumin/Globulin [Mass ratio] 1.3 {ratio} Normal 0.9-2.4 [facility] Comment on above: Performed By: #### L 500.2500, L500.3400, L100.0100 #### [facility] Laboratory [address] [place], [address] ALK PHOS 71 U/L Normal 35-104 [facility] Comment on above: Performed By: #### L 500.2500, L500.3400, L100.0100 #### [facility] Laboratory [address] [place], [address] ALT [Catalytic activity/Vol] 28 U/L Normal <=34 [facility] Comment on above: Performed By: #### L 500.2500, L500.3400, L100.0100 #### [facility] Laboratory [address] [place], [address] AST [Catalytic activity/Vol] 27 U/L Normal <=31 [facility] Comment on above: Performed By: #### L 500.2500, L500.3400, L100.0100 #### [facility] Laboratory [address] [place], [address] Bilirubin [Mass/Vol] 0.41 mg/dL Normal 0.00-1.30 [facility] Comment on above: Performed By: #### L 500.2500, L500.3400, L100.0100 #### [facility] Laboratory [address] [place], [address] BUN/CRE 17.8 RATIO Normal 10-20 [facility] Comment on above: Performed By: #### L 500.2500, L500.3400, L100.0100 #### [facility] Laboratory [address] [place], [address] Calcium [Mass/Vol] 9.3 mg/dL Normal 7.6-11.0 [facility] Comment on above: Performed By: #### L 500.2500, L500.3400, L100.0100 #### [facility] Laboratory [address] [place], [address] Chloride [Moles/Vol] 104 mmol/L Normal 98-108 [facility] Comment on above: Performed By: #### L 500.2500, L500.3400, L100.0100 #### [facility] Laboratory [address] [place], [address] CO2 [Moles/Vol] 27.8 mmol/L Normal 21.0-32.0 [facility] Comment on above: Performed By: #### L 500.2500, L500.3400, L100.0100 #### [facility] Laboratory [address] [place], [address] Creatinine [Mass/Vol] 0.97 mg/dL Normal 0.70-1.20 [facility] Comment on above: Performed By: #### L 500.2500, L500.3400, L100.0100 #### [facility] Laboratory [address] [place], [address] ECRCL 59.97 ml/min Normal 50-250 [facility] Comment on above: Performed By: #### L 500.2500, L500.3400, L100.0100 #### [facility] Laboratory [address] [place], [address] GAP 8 Normal 5-15 [facility] Comment on above: Performed By: #### L 500.2500, L500.3400, L100.0100 #### [facility] Laboratory [address] [place], [address] GFR/1.73 sq M.predicted among non-blacks MDRD (S/P/Bld) [Vol rate/Area] 64 mL/min/{1.73_m2} Normal >60 [facility] Comment on above: Result Comment: mL/m in/1.73m2 CKD-EPI Creatinine Equation (2020) Performed By: #### L 500.2500, L500.3400, L100.0100 #### [facility] Laboratory [address] [place], [address] Globulin (S) [Mass/Vol] 2.9 g/dL Normal 2.2-4.2 [facility] Comment on above: Performed By: #### L 500.2500, L500.3400, L100.0100 #### [facility] Laboratory [address] [place], [address] Glucose [Mass/Vol] 100 mg/dL High 70-99 [facility] Comment on above: Performed By: #### L 500.2500, L500.3400, L100.0100 #### [facility] Laboratory [address] [place], [address] Potassium [Moles/Vol] 4.5 mmol/L Normal 3.3-5.1 [facility] Comment on above: Performed By: #### L 500.2500, L500.3400, L100.0100 #### [facility] Laboratory [address] [place], [address] Sodium [Moles/Vol] 140 mmol/L Normal 133-145 [facility] Comment on above: Performed By: #### L 500.2500, L500.3400, L100.0100 #### [facility] Laboratory [address] [place], [address] T PROT 6.7 g/dL Normal 5.9-8.4 [facility] Comment on above: Performed By: #### L 500.2500, L500.3400, L100.0100 #### [facility] Laboratory [address] [place], [address] Urea nitrogen [Mass/Vol] 17 mg/dL Normal 4-19 [facility] Comment on above: Performed By: #### L 500.2500, L500.3400, L100.0100 #### [facility] Laboratory [address] [place], [address] Emergency Department Summary on 10-13-2024 Emergency Department Summary [facility] Medical Records Department [address] [place] [address] Emergency Department Summary 10/13/24 MR#: [id number] Acct: [id number] Name: TEMITOPE HADDAD Rep #: [id number] : 1955 69 From: Colin Caba DO [...] intact Psych: Cooperative, appropriate mood and affect [facility] Medical History Osteoporosis Kidney stones Kidney disease GERD (gastroesophageal reflux disease) Myocardial infarct Internal impingement of right shoulder Hypothyroidism Abnormal Holter monitor finding Sinus pause Mixed hyperlipidemia Atherosclerotic heart disease of [place] coronary artery without angina pectoris Essential hypertension [...] included)... Normal [facility] Eosinophil percentageOrdered By: Colin Caba on 10-13-2024 Eosinophils/100 WBC (Bld) 4.0 % 0-5 [facility] Erythrocyte distribution wid th ratioOrdered By: Colin Caba on 10-13-2024 Erythrocyte distribution width (RBC) [Ratio] 13.3 % 11.6-14.6 [facility] Erythrocyte distribution wid th standard deviationOrdered By: Colin Pickering on 10-13-2024 Erythrocyte distribution width (RBC) [Ratio] 46.5 fl High 35.1-43.9 [facility] Glomerular filtration rate ( GFR) estimation/1.73 sq m using serum, plasma, or whole bOrdered By: Colin Caba on 10-13-2024 GFR/1.73 sq M.predicted among non-blacks MDRD (S/P/Bld) [Vol rate/Area] 64 mL/min/{1.73_m2} >60 [facility] Comment on above: mL/min/1.73m2 CKD-EP I Creatinine Equation (2020) Hematocrit Auto (Bld) [Volum e fraction]Ordered By: Colin Caba on 10-13-2024 Hematocrit (Bld) [Volume fraction] 39.7 % 37-47 [facility] Hemoglobin measurementOrdere d By: Colin Caba on 10-13-2024 Hemoglobin (Bld) [Mass/Vol] 13.2 g/dL 12.0-15.0 [facility] Immature granulocytes/100 WB C Auto (Bld)Ordered By: Colin Caba on 10-13-2024 Immature granulocytes/100 WBC (Bld) 0.200 % 0.0-0.9 [facility] Comment on above: IG% - Immature Granu locytes (promyelocytes, myelocytes and metamyelocytes) > 1% indicates that a LEFT SHIFT is Present. Ketones Test strip Ql (U)Ord ered By: Colin Caba on 10-13-2024 Ketones Ql (U) Negative Negative [facility] Laboratory - Chemistry and C hemistry - challengeOrdered By: Colin Caba on 10-13-2024 AST [Catalytic activity/Vol] 27 U/L <32 [facility] Lipaseon 10-13-2024 Lipase [Catalytic activity/Vol] 12 U/L Low 13-75 [facility] Comment on above: Result Comment: Pleitalia león note: LIPASE revised reference range effective 22. New Lipase methodology. Expected to produce lower values than the previous assay method. NEW Reference Range: 13 - 75 U/L Performed By: #### L 500.2500, L500.3400, L100.0100 #### [facility] Laboratory [facility] [place], [address] Lipase measurementOrdered By : [facility] on 10-13-2024 Lipase [Catalytic activity/Vol] 12 U/L Low 13-75 [facility] Comment on above: Please note:LIPASE r evised reference range effective 22. New Lipase methodology. Expected to produce lower values than the previous assay method. NEW Reference Range: 13 - 75 U/L MCV (mean corpuscular volume ) determinationOrdered By: Colin Caba on 10-13-2024 MCV (RBC) [Entitic vol] 94.5 fL 81-99 [facility] Mean corpuscular hemoglobin (MCH) determinationOrdered By: Colin Caba on 10-13-2024 MCH (RBC) [Entitic mass] 31.4 pg 27.0-32.0 [facility] Mean corpuscular hemoglobin concentration (MCHC) determinationOrdered By: Colin Caba on 10-13-2024 MCHC (RBC) [Mass/Vol] 33.2 g/dL 32-36 [facility] Mean platelet volume determi nationOrdered By: Colin Caba on 10-13-2024 Platelet mean volume (Bld) [Entitic vol] 8.7 fL 6.2-12.0 [facility] Microscopic analysis of urin e for red blood cells (RBC)Ordered By: Colin Caba on 10-13-2024 Microscopic analysis of urine for red blood cells (RBC) 0 SEEN /hpf 0-5 [facility] Monocyte percentageOrdered B y: Colin Caba on 10-13-2024 Monocytes/100 WBC (Bld) 7.7 % 0-10 [facility] Mucus LM Ql (Urine sed)Order ed By: Colin Caba on 10-13-2024 Mucus Ql (Urine sed) 0 SEEN /hpf [facility] Neutrophil percentageOrdered By: Colin Caba on 10-13-2024 Neutrophils/100 WBC (Bld) 57.6 % 47-70 [facility] Nitrite Test strip Ql (U)Ord ered By: Colin Caba on 10-13-2024 Nitrite Ql (U) Negative Negative [facility] Nucleated red blood cell per centageOrdered By: Colin Caba on 10-13-2024 Nucleated RBC/100 WBC (Bld) [Ratio] 0 % 0-5 [facility] Platelet countOrdered By: Vickie fontainel Rosales on 10-13-2024 Platelets (Bld) [#/Vol] 182 10*3/uL 150-450 [facility] Potassium measurement (mass/ volume)Ordered By: Colin Caba on 10-13-2024 Potassium (Unsp spec) [Mass/Vol] 4.5 mmol/L 3.3-5.1 [facility] Protein Test strip Ql (U)Ord ered By: Colin Caba on 10-13-2024 Protein Ql (U) 15 mg/dl High Negative [facility] RBC Auto (Bld) [#/Vol]Ordere d By: Colin Caba on 10-13-2024 RBC (Bld) [#/Vol] 4.20 10*6/uL 4.2-5.4 [facility] Serum creatinine measurement (mass/volume)Ordered By: Colin Caba on 10-13-2024 Creatinine [Mass/Vol] 0.97 mg/dL 0.70-1.20 [facility] Serum globulin measurementOr dered By: Colin Caba on 10-13-2024 Globulin (S) [Mass/Vol] 2.9 g/dL 2.2-4.2 [facility] Serum glucose measurement (m ass/volume)Ordered By: Colin Caba on 10-13-2024 Glucose [Mass/Vol] 100 mg/dL High 70-99 [facility] Serum or plasma alanine [place] otransferase (ALT) measurementOrdered By: Colin Caba on 10-13-2024 ALT [Catalytic activity/Vol] 28 U/L <35 [facility] Serum or plasma albumin tino urement (mass/volume)Ordered By: Colin Pickering on 10-13-2024 Albumin [Mass/Vol] 3.8 g/dL 3.4-4.8 [facility] Serum or plasma albumin/glob ulin mass ratioOrdered By: Colin Caba on 10-13-2024 Albumin/Globulin [Mass ratio] 1.3 {ratio} 0.9-2.4 [facility] Serum or plasma alkaline coty sphatase measurementOrdered By: Colin Caba on 10-13-2024 ALP [Catalytic activity/Vol] 71 U/L 35-104 [facility] Serum or plasma calcium tino urement (mass/volume)Ordered By: Colin Pickering on 10-13-2024 Calcium [Mass/Vol] 9.3 mg/dL 7.6-11.0 [facility] Serum or plasma urea nitroge n measurement (mass/volume)Ordered By: Colin Caba on 10-13-2024 Urea nitrogen [Mass/Vol] 17 mg/dL 4-19 [facility] Sodium levelOrdered By: Noble Caba on 10-13-2024 Sodium [Moles/Vol] 140 mmol/L 133-145 [facility] Squamous epithelial cells de tection in urine sediment by light microscopyOrdered By: Colin Caba on 10-13-2024 Epithelial cells.squamous LM Ql (Urine sed) 0 SEEN /hpf - [facility] Total proteinOrdered By: Clem Caba on 10-13-2024 Protein [Mass/Vol] 6.7 g/dL 5.9-8.4 [facility] Urinalysis, Completeon 10-13 BACTERIA 0 SEEN Normal None Seen [facility] Comment on above: Order Comment: CLEAN CATCH Performed By: #### L 500.2500, L500.3400, L100.0100 #### [facility] Laboratory [address] [place], [address] EPI,SQUAMOUS 0 SEEN Normal - [facility] Comment on above: Order Comment: CLEAN CATCH Performed By: #### L 500.2500, L500.3400, L100.0100 #### [facility] Laboratory [address] [place], [address] Mucus Ql (Urine sed) 0 SEEN Normal [facility] Comment on above: Order Comment: CLEAN CATCH Performed By: #### L 500.2500, L500.3400, L100.0100 #### [facility] Laboratory [address] [place], [address] RBC 0 SEEN Normal 0-5 [facility] Comment on above: Order Comment: CLEAN CATCH Performed By: #### L 500.2500, L500.3400, L100.0100 #### [facility] Laboratory [address] [place], [address] WBC 0 SEEN Normal 0-5 [facility] Comment on above: Order Comment: CLEAN CATCH Performed By: #### L 500.2500, L500.3400, L100.0100 #### [facility] Laboratory [address] [place], [place], [id number] Urine clarityOrdered By: Clem Caba on 10-13-2024 Clarity (U) Clear Clear [facility] Urine color determinationOrd ered By: Colin Caba on 10-13-2024 Color (U) Yellow Yellow [facility] Urine glucose detectionOrder ed By: Colin Caba on 10-13-2024 Glucose Ql (U) Normal mg/dl Normal [facility] Urine leukocyte esterase det ection by dipstickOrdered By: Colin Caba on 10-13-2024 Leukocyte esterase Test strip Ql (U) 100 /ul High Negative [facility] Urine pHOrdered By: Colin Canada on 10-13-2024 pH (U) 7.0 [pH] 5.0 - 8.0 [facility] Urine sediment bacteria coun t by microscopy (number/high power field)Ordered By: Colin Caba on 10-13-2024 Bacteria LM.HPF (Urine sed) [#/Area] 0 /[HPF] None Seen [facility] Urine specific gravity measu rementOrdered By: Colin Caba on 10-13-2024 Specific gravity (U) [Rel density] 1.010 1.002-1.03 0 [facility] Urine urobilinogen measureme ntOrdered By: Colin Caba on 10-13-2024 Urobilinogen Ql (U) Normal mg/dl Normal [facility] White blood cell (WBC) count Ordered By: Colin Caba on 10-13-2024 WBC (Bld) [#/Vol] 4.3 10*3/uL Low 4.4-11.0 [facility] White blood cell countOrdere d By: Colin Caba on 10-13-2024 White blood cell count 0 SEEN /hpf 0-5 [facility] Abdomen/Pelvis W IV Cont ONL Yon 09-30-2024 Abdomen/Pelvis W IV Cont ONLY [facility] Imaging Services [address] [place] [address] Abdomen/Pelvis W IV Cont ONLY MR#: [id number] Acct: [id number] Name: TEMITOPE HADDAD Rep #: [id number] : 1955 F 69 From: Zeynep Negrete MD PCP: Dr. Bird Ronquillo MD Status: REG ER Study: Abdomen/Pelvis W IV Cont ONLY Date of Exam: Exam# [id number] Ordering Dr: Ed Gorman MD PROCEDURE: ABDOMEN/PELVIS [...] 2. Additional description as above. Reading Location: [facility] CC: Dr. Bird Ronquillo MD; Dr. Ed Gorman MD Stone Engraver: Signed Normal [facility] Absolute lymphocyte countOrd ered By: Edlos Gorman on 09-30-2024 Lymphocytes Auto (Unsp spec) [#/Vol] 1.44 10*3/uL 0.83-4.51 [facility] Absolute neutrophil countOrd ered By: [facility] on 09-30-2024 Neutrophils (Bld) [#/Vol] 2.4 10*3/uL 2.0-7.7 [facility] Anion gap in Serum or Plasma Ordered By: Ed Gorman on 09-30-2024 Anion gap [Moles/Vol] 12 mmol/L 5-15 [facility] Automated lymphocyte count a s percentage of total leukocytesOrdered By: Edlos Gorman on 09-30-2024 Lymphocytes/100 WBC Auto (Unsp spec) 32.0 % 19-41 [facility] BUN/creatinine ratioOrdered By: Edlos Gorman on 09-30-2024 Urea nitrogen/Creatinine [Mass ratio] 26.0 mg/mg High 10-20 [facility] Basic Metabolic Profile (BMP )on 09-30-2024 BUN/CRE 26.0 RATIO High - [facility] Comment on above: Performed By: #### L 500.2500, L100.0100, L503.6005 #### [facility] Laboratory [address] [place], [place], [id number] Calcium [Mass/Vol] 9.4 mg/dL Normal 7.6-11.0 [facility] Comment on above: Performed By: #### L 500.2500, L100.0100, L503.6005 #### [facility] Laboratory [address] [place], [address] Chloride [Moles/Vol] 104 mmol/L Normal 98-108 [facility] Comment on above: Performed By: #### L 500.2500, L100.0100, L503.6005 #### [facility] Laboratory [address] [place], [address] CO2 [Moles/Vol] 22.6 mmol/L Normal 21.0-32.0 [facility] Comment on above: Performed By: #### L 500.2500, L100.0100, L503.6005 #### [facility] Laboratory [address] [place], [address] Creatinine [Mass/Vol] 0.96 mg/dL Normal 0.70-1.20 [facility] Comment on above: Performed By: #### L 500.2500, L100.0100, L503.6005 #### [facility] Laboratory [address] [place], [address] ECRCL 60.57 ml/min Normal 50-250 [facility] Comment on above: Performed By: #### L 500.2500, L100.0100, L503.6005 #### [facility] Laboratory [address] [place], [address] GAP 12 Normal 5-15 [facility] Comment on above: Performed By: #### L 500.2500, L100.0100, L503.6005 #### [facility] Laboratory [address] [place], [address] GFR/1.73 sq M.predicted among non-blacks MDRD (S/P/Bld) [Vol rate/Area] 65 mL/min/{1.73_m2} Normal >60 [facility] Comment on above: Result Comment: mL/m in/1.73m2 CKD-EPI Creatinine Equation (2020) Performed By: #### L 500.2500, L100.0100, L503.6005 #### [facility] Laboratory [address] [place], [address] Glucose [Mass/Vol] 110 mg/dL High 70-99 [facility] Comment on above: Performed By: #### L 500.2500, L100.0100, L503.6005 #### [facility] Laboratory [address] [place], [address] Potassium [Moles/Vol] 4.1 mmol/L Normal 3.3-5.1 [facility] Comment on above: Performed By: #### L 500.2500, L100.0100, L503.6005 #### [facility] Laboratory [address] [place], [address] Sodium [Moles/Vol] 138 mmol/L Normal 133-145 [facility] Comment on above: Performed By: #### L 500.2500, L100.0100, L503.6005 #### [facility] Laboratory [address] [place], [address] Urea nitrogen [Mass/Vol] 25 mg/dL High 4-19 [facility] Comment on above: Performed By: #### L 500.2500, L100.0100, L503.6005 #### [facility] Laboratory [address] [place], [address] Basophil percentageOrdered B y: Ed Gorman on 09-30-2024 Basophils/100 WBC (Bld) 1.1 % High 0-1 [facility] CBC W/Diff, Automatedon Absolute Lymph 1.44 X10 3/uL Normal 0.83-4.51 [facility] Comment on above: Performed By: #### L 500.2500, L100.0100, L503.6005 #### [facility] Laboratory [address] [place], [address] Absolute Neut 2.4 X10 3/uL Normal 2.0-7.7 [facility] Comment on above: Performed By: #### L 500.2500, L100.0100, L503.6005 #### [facility] Laboratory [address] [place], [address] Basophils/100 WBC (Bld) 1.1 % High 0-1 [facility] Comment on above: Performed By: #### L 500.2500, L100.0100, L503.6005 #### [facility] Laboratory [address] [place], [address] Eosinophils/100 WBC (Bld) 4.2 % Normal 0-5 [facility] Comment on above: Performed By: #### L 500.2500, L100.0100, L503.6005 #### [facility] Laboratory [address] [place], [address] Erythrocyte distribution width (RBC) [Ratio] 13.5 % Normal 11.6-14.6 [facility] Comment on above: Performed By: #### L 500.2500, L100.0100, L503.6005 #### [facility] Laboratory [address] [place], [address] Hematocrit (Bld) [Volume fraction] 38.6 % Normal 37-47 [facility] Comment on above: Performed By: #### L 500.2500, L100.0100, L503.6005 #### [facility] Laboratory [address] [place], [address] Hemoglobin (Bld) [Mass/Vol] 13.0 g/dL Normal 12.0-15.0 [facility] Comment on above: Performed By: #### L 500.2500, L100.0100, L503.6005 #### [facility] Laboratory [address] [place], [address] IG% 0.200 Normal 0.0-0.9 [facility] Comment on above: Result Comment: IG% - Immature Granulocytes (promyelocytes, myelocytes and metamyelocytes) > 1% indicates that a LEFT SHIFT is Present. Performed By: #### L 500.2500, L100.0100, L503.6005 #### [facility] Laboratory [address] [place], [address] Lymphocytes/100 WBC (Bld) 32.0 % Normal 19-41 [facility] Comment on above: Performed By: #### L 500.2500, L100.0100, L503.6005 #### [facility] Laboratory [address] [place], [address] MCH (RBC) [Entitic mass] 31.6 pg Normal 27.0-32.0 [facility] Comment on above: Performed By: #### L 500.2500, L100.0100, L503.6005 #### [facility] Laboratory [address] [place], [address] MCHC (RBC) [Mass/Vol] 33.7 g/dL Normal 32-36 [facility] Comment on above: Performed By: #### L 500.2500, L100.0100, L503.6005 #### [facility] Laboratory [address] [place], [address] MCV (RBC) [Entitic vol] 93.7 fL Normal 81-99 [facility] Comment on above: Performed By: #### L 500.2500, L100.0100, L503.6005 #### [facility] Laboratory [address] [place], [address] Monocytes/100 WBC (Bld) 8.7 % Normal 0-10 [facility] Comment on above: Performed By: #### L 500.2500, L100.0100, L503.6005 #### [facility] Laboratory [address] [place], [address] Neutrophils/100 WBC (Bld) 53.8 % Normal 47-70 [facility] Comment on above: Performed By: #### L 500.2500, L100.0100, L503.6005 #### [facility] Laboratory [address] [place], [address] Nucleated RBC (Bld) [#/Vol] 0 10*3/uL Normal 0-5 [facility] Comment on above: Performed By: #### L 500.2500, L100.0100, L503.6005 #### [facility] Laboratory [address] [place], [address] Platelet mean volume (Bld) [Entitic vol] 8.8 fL Normal 6.2-12.0 [facility] Comment on above: Performed By: #### L 500.2500, L100.0100, L503.6005 #### [facility] Laboratory [address] [place], [address] Platelets (Bld) [#/Vol] 196 10*3/uL Normal 150-450 [facility] Comment on above: Performed By: #### L 500.2500, L100.0100, L503.6005 #### [facility] Laboratory [address] [place], [address] RBC (Bld) [#/Vol] 4.12 10*6/uL Low 4.2-5.4 [facility] Comment on above: Performed By: #### L 500.2500, L100.0100, L503.6005 #### [facility] Laboratory [address] [place], [address] RDW SD 46.0 fl High 35.1-43.9 [facility] Comment on above: Performed By: #### L 500.2500, L100.0100, L503.6005 #### [facility] Laboratory [address] [place], [address] WBC (Bld) [#/Vol] 4.5 10*3/uL Normal 4.4-11.0 [facility] Comment on above: Performed By: #### L 500.2500, L100.0100, L503.6005 #### [facility] Laboratory [address] [place], [address] Carbon dioxide, total [Moles /volume] in Central venous bloodOrdered By: Ed Gorman on 09-30-2024 CO2 [Moles/Vol] 22.6 mmol/L 21.0-32.0 [facility] Chloride assayOrdered By: Ug o Gorman on 09-30-2024 Chloride [Moles/Vol] 104 mmol/L 98-108 [facility] Emergency Department Summary on 09-30-2024 Emergency Department Summary [facility] Medical Records Department [address] [place] [address] Emergency Department Summary 09/30/24 MR#: [id number] Acct: [id number] Name: TEMITOPE HADDAD Rep #: [id number] : 1955 69 From: Ed Gorman MD [...] pause Mixed hyperlipidemia Atherosclerotic heart disease of [place] coronary artery without angina pectoris Essential hypertension [...] included)... Normal [facility] Eosinophil percentageOrdered By: Ed Gorman on 09-30-2024 Eosinophils/100 WBC (Bld) 4.2 % 0-5 [facility] Erythrocyte distribution wid th ratioOrdered By: Ed Gorman on 09-30-2024 Erythrocyte distribution width (RBC) [Ratio] 13.5 % 11.6-14.6 [facility] Erythrocyte distribution wid th standard deviationOrdered By: Ed Gorman on 09-30-2024 Erythrocyte distribution width (RBC) [Ratio] 46.0 fl High 35.1-43.9 [facility] Glomerular filtration rate ( GFR) estimation/1.73 sq m using serum, plasma, or whole bOrdered By: Ed Gorman on 09-30-2024 GFR/1.73 sq M.predicted among non-blacks MDRD (S/P/Bld) [Vol rate/Area] 65 mL/min/{1.73_m2} >60 [facility] Comment on above: mL/min/1.73m2 CKD-EP I Creatinine Equation (2020) Hematocrit Auto (Bld) [Volum e fraction]Ordered By: Edlos Gorman on 09-30-2024 Hematocrit (Bld) [Volume fraction] 38.6 % 37-47 [facility] Hemoglobin measurementOrdere d By: Edlos Gorman on 09-30-2024 Hemoglobin (Bld) [Mass/Vol] 13.0 g/dL 12.0-15.0 [facility] Immature granulocytes/100 WB C Auto (Bld)Ordered By: Edlos Gorman on 09-30-2024 Immature granulocytes/100 WBC (Bld) 0.200 % 0.0-0.9 [facility] Comment on above: IG% - Immature Granu locytes (promyelocytes, myelocytes and metamyelocytes) > 1% indicates that a LEFT SHIFT is Present. Lactic Acidon 09-30-2024 Lactate [Moles/Vol] mmol/L Normal 0.0-2.0 [facility] Comment on above: Order Comment: Y Performed By: #### L 500.2500, L100.0100, L503.6005 #### [facility] Laboratory [address] [place] [address], [address] Lactic acid measurementOrder ed By: Edlos Gorman on 09-30-2024 Lactate [Moles/Vol] mmol/L 0.0-2.0 [facility] MCV (mean corpuscular volume ) determinationOrdered By: Edlos Gorman on 09-30-2024 MCV (RBC) [Entitic vol] 93.7 fL 81-99 [facility] Mean corpuscular hemoglobin (MCH) determinationOrdered By: Ed Gorman on 09-30-2024 MCH (RBC) [Entitic mass] 31.6 pg 27.0-32.0 [facility] Mean corpuscular hemoglobin concentration (MCHC) determinationOrdered By: [facility] on 09-30-2024 MCHC (RBC) [Mass/Vol] 33.7 g/dL 32-36 [facility] Mean platelet volume determi nationOrdered By: Edlos Gorman on 09-30-2024 Platelet mean volume (Bld) [Entitic vol] 8.8 fL 6.2-12.0 [facility] Monocyte percentageOrdered B y: Ed Gorman on 09-30-2024 Monocytes/100 WBC (Bld) 8.7 % 0-10 [facility] Neutrophil percentageOrdered By: Edlos Gorman on 09-30-2024 Neutrophils/100 WBC (Bld) 53.8 % 47-70 [facility] Nucleated red blood cell per centageOrdered By: Ed Gorman on 09-30-2024 Nucleated RBC/100 WBC (Bld) [Ratio] 0 % 0-5 [facility] Platelet countOrdered By: Estevan Gorman on 09-30-2024 Platelets (Bld) [#/Vol] 196 10*3/uL 150-450 [facility] Potassium measurement (mass/ volume)Ordered By: Ed Gorman on 09-30-2024 Potassium (Unsp spec) [Mass/Vol] 4.1 mmol/L 3.3-5.1 [facility] RBC Auto (Bld) [#/Vol]Ordere d By: Ed Gorman on 09-30-2024 RBC (Bld) [#/Vol] 4.12 10*6/uL Low 4.2-5.4 [facility] Serum creatinine measurement (mass/volume)Ordered By: Ed Gorman on 09-30-2024 Creatinine [Mass/Vol] 0.96 mg/dL 0.70-1.20 [facility] Serum glucose measurement (m ass/volume)Ordered By: Ed Gorman on 09-30-2024 Glucose [Mass/Vol] 110 mg/dL High 70-99 [facility] Serum or plasma calcium tino urement (mass/volume)Ordered By: Ed Gorman on 09-30-2024 Calcium [Mass/Vol] 9.4 mg/dL 7.6-11.0 [facility] Serum or plasma urea nitroge n measurement (mass/volume)Ordered By: Ed Gorman on 09-30-2024 Urea nitrogen [Mass/Vol] 25 mg/dL High 4-19 [facility] Sodium levelOrdered By: Ed Gorman on 09-30-2024 Sodium [Moles/Vol] 138 mmol/L 133-145 [facility] White blood cell (WBC) count Ordered By: Ed Gorman on 09-30-2024 WBC (Bld) [#/Vol] 4.5 10*3/uL 4.4-11.0 [facility] MRI LIVER WO/W IVCONon 08-12 MRI LIVER [...] identified. 2. Fatty infiltration of the liver Stone Engraver: GASPER Transcribe Date/Time: Aug 15 2024 4:02P Dictated by : LUIS BROWN MD This examination was interpreted and the report reviewed and electronically signed by: LUIS BROWN MD on Aug 15 2024 4:15PM EST [id number] Normal [facility] Biliary ducts and Gallbla dder Views for patency of biliary structures and ejection fraction W sincalide and W radionuclide Josh 08-08-2024 IMPRESSION: High gallbladder ejection fraction, which can be due to physiologic variation or a functional disorder. Stone Engraver: GASPER Transcribe Date/Time: Aug 08 2024 3:13P Dictated by : RIVER ROWLEY MD This examination was interpreted and the report reviewed and electronically signed by: RIVER ROWLEY MD on Aug 08 2024 3:14PM [facility] DIVISION OF RADIOLOGY * * *Final Report* * * DATE OF EXAM: Aug 08 2024 3:10PM [facility] 0021 - [place] HEPATOBILIARY W EF [...] No enterogastric reflux. DIVISION OF RADIOLOGY Provider, [facility] 08/08/2024 * * *Final Report* * * DATE OF EXAM: Aug 08 2024 3:10PM [facility] 0021 - [place] HEPATOBILIARY W EF [...] to physiologic variation or a functional disorder. Stone Engraver: GASPER Transcribe Date/Time: Aug 08 2024 3:13P Dictated by : RIVER ROWLEY MD This examination was interpreted and the report reviewed and electronically signed by: RIVER ROWLEY MD on Aug 08 2024 3:14PM EST [facility] Radiology Study observation (narrative) [facility] Biliary ducts and Gallbla dder Views for patency of biliary structures and ejection fraction W sincalide and W radionuclide IVOrdered By: [facility] Provider on 08-08-2024 [facility] [place] HEPATOBILIARY W EF AND/OR RXon 08-08-2024 [place] HEPATOBILIARY W EF AND/OR RX * * *Final Report* * * DATE OF EXAM: Aug 08 2024 3:10PM [place] [address] - [place] HEPATOBILIARY W EF AND/OR RX / PROCEDURE [...] to physiologic variation or a functional disorder. Stone Engraver: GASPER Transcribe Date/Time: Aug 08 2024 3:13P Dictated by : RIVER ROWLEY MD This examination was interpreted and the report reviewed and electronically signed by: RIVER ROWLEY MD on Aug 08 2024 3:14PM EST [id number] Normal [facility] Hemoccult Stl Ql IAon 2024 Lower GI hemoglobin IA Ql (Stl) Negative Normal Negative [facility] Comment on above: Order Comment: Speci men Type: STOOL SPECIMENOrdering Facility: [facility] Address: [address] [place], [place] [address] [address] Performed By: #### 2 9771-3 ####[facility] LABCLIA [id number] ANGELIQUE GROSSMAN [address] CNOVon 08-06-2024 CNOV Office Visit (FAMPWS ) TEMITOPE HADDAD ([id number]) 1955 F T Date Time Provider Department 08/06/24 1:20 PM SHAVONNE DONATO During your visit today, we recorded the following information about you: Pulse Respiration Blood pressure Weight 64/minute 18/minute 152/90 79 kg Shavonne Donato APRN.[employer] 08/06/2024 2:00 PM Signed 08/06/2024 Patient presents with: ED Follow-up: [facility] 07/30/2024 for abdominal pain SUBJECTIVE: This is a 69 year old that is here today for Above Complaints HOSPITAL/ER FOLLOW UP: Reason for visit: RUQ pain Which facility: [facility] Date of visit: 07/31/2024 Diagnosis: RUQ pain [...] (moderate) (HCC) COPD (chronic obstructive pulmonary disease) ([facility]) Dr. Wallace Depression Dysuria Generalized anxiety disorder [...] Left leg, managed by plastic surgery Stroke ([facility]) x 4 Suprapubic pain Vitamin D deficiency [...] ABDOMEN bow (more content not included)... Normal [facility] Abdomen/Pelvis W IV Cont ONL Yon 07-31-2024 Abdomen/Pelvis W IV Cont ONLY [facility] Imaging Services [address] [place] [address] Abdomen/Pelvis W IV Cont ONLY MR#: [id number] Acct: [id number] Name: TEMITOPE HADDAD Rep #: [id number] : 1955 F 69 From: Zeynep Negrete MD PCP: Dr. Bird Ronquillo MD Status: REG ER Study: Abdomen/Pelvis W IV Cont ONLY Date of Exam: Exam# [id number] Ordering Dr: Raza Ruiz DO PROCEDURE: ABDOMEN/PELVIS [...] 3. Additional description as above. Reading Location: [facility] CC: Dr. Bird Ronquillo MD; Dr. Raza Ruiz, DO Stone Engraver: Signed Normal [facility] Absolute lymphocyte countOrd ered By: Raza Ruiz on 07-31-2024 Lymphocytes Auto (Unsp spec) [#/Vol] 1.05 10*3/uL 0.83-4.51 [facility] Absolute neutrophil countOrd ered By: Raza Ruiz on 07-31-2024 Neutrophils (Bld) [#/Vol] 3.8 10*3/uL 2.0-7.7 [facility] Amorphous sediment detection in urine sediment by light microscopyOrdered By: Raza Ruiz on 07-31-2024 Amorphous sediment LM Ql (Urine sed) 1+ URATE [facility] Anion gap in Serum or Plasma Ordered By: Raza Ruiz on 07-31-2024 Anion gap [Moles/Vol] 11 mmol/L 5-15 [facility] Automated lymphocyte count a s percentage of total leukocytesOrdered By: Raza Ruiz on 07-31-2024 Lymphocytes/100 WBC Auto (Unsp spec) 19.3 % 19-41 [facility] BUN/creatinine ratioOrdered By: Raza Ruiz on 07-31-2024 Urea nitrogen/Creatinine [Mass ratio] 14.9 mg/mg 10-20 [facility] Basic Metabolic Profile (BMP )on 07-31-2024 BUN/CRE 14.9 RATIO Normal - [facility] Comment on above: Performed By: #### L 500.2500, L500.3400, L100.0100 #### [facility] Laboratory [address] [place], [address] Calcium [Mass/Vol] 9.4 mg/dL Normal 7.6-11.0 [facility] Comment on above: Performed By: #### L 500.2500, L500.3400, L100.0100 #### [facility] Laboratory [address] [place], [address] Chloride [Moles/Vol] 106 mmol/L Normal 98-108 [facility] Comment on above: Performed By: #### L 500.2500, L500.3400, L100.0100 #### [facility] Laboratory [address] [place], [address] CO2 [Moles/Vol] 23.8 mmol/L Normal 21.0-32.0 [facility] Comment on above: Performed By: #### L 500.2500, L500.3400, L100.0100 #### [facility] Laboratory [address], [address] Creatinine [Mass/Vol] 1.00 mg/dL Normal 0.70-1.20 [facility] Comment on above: Performed By: #### L 500.2500, L500.3400, L100.0100 #### [facility] Laboratory [address] [place], [address] ECRCL 56.93 ml/min Normal 50-250 [facility] Comment on above: Performed By: #### L 500.2500, L500.3400, L100.0100 #### [facility] Laboratory [address] [place], [address] GAP 11 Normal 5-15 [facility] Comment on above: Performed By: #### L 500.2500, L500.3400, L100.0100 #### [facility] Laboratory [address] [place], [address] GFR/1.73 sq M.predicted among non-blacks MDRD (S/P/Bld) [Vol rate/Area] 62 mL/min/{1.73_m2} Normal >60 [facility] Comment on above: Result Comment: mL/m in/1.73m2 CKD-EPI Creatinine Equation (2020) Performed By: #### L 500.2500, L500.3400, L100.0100 #### [facility] [address] [place], [address] Glucose [Mass/Vol] 115 mg/dL High 70-99 [facility] Comment on above: Performed By: #### L 500.2500, L500.3400, L100.0100 #### [facility] [address] [place], [address] Potassium [Moles/Vol] 4.1 mmol/L Normal 3.3-5.1 [facility] Comment on above: Performed By: #### L 500.2500, L500.3400, L100.0100 #### [facility] [address] [place], [address] Sodium [Moles/Vol] 141 mmol/L Normal 133-145 [facility] Comment on above: Performed By: #### L 500.2500, L500.3400, L100.0100 #### [facility] [address] [place], [address] Urea nitrogen [Mass/Vol] 15 mg/dL Normal 4-19 [facility] Comment on above: Performed By: #### L 500.2500, L500.3400, L100.0100 #### [facility] [address] [place], [address] BUN Normal 4-19 [facility] Comment on above: Result Comment: IRENE VELA, SPOKE WITH ED ROOF TILE LAYER TO CANCEL 2ND BMP,LIVER,LIPASE. Performed By: #### L 500.2500, L500.3400, L100.0100 #### [facility] [address], [address] BUN/CRE Normal 10-20 [facility] Comment on above: Result Comment: IRENE VELA, SPOKE WITH ED ROOF TILE LAYER TO CANCEL 2ND BMP,LIVER,LIPASE. Performed By: #### L 500.2500, L500.3400, L100.0100 #### [facility] [address] [place], [address] Calcium Normal 7.6-11.0 [facility] Comment on above: Result Comment: IRENE VELA, SPOKE WITH ED ROOF TILE LAYER TO CANCEL 2ND BMP,LIVER,LIPASE. Performed By: #### L 500.2500, L500.3400, L100.0100 #### [facility] [address] [place], [address] CL Normal 98-108 [facility] Comment on above: Result Comment: IRENE VELA, SPOKE WITH ED ROOF TILE LAYER TO CANCEL 2ND BMP,LIVER,LIPASE. Performed By: #### L 500.2500, L500.3400, L100.0100 #### [facility] [address] [place], [address] CO2 Normal 21.0-32.0 [facility] Comment on above: Result Comment: IRENE VELA, SPOKE WITH ED ROOF TILE LAYER TO CANCEL 2ND BMP,LIVER,LIPASE. Performed By: #### L 500.2500, L500.3400, L100.0100 #### [facility] [address] [place], [address] CREAT,SERUM Normal 0.70-1.20 [facility] Comment on above: Result Comment: IRENE VELA, SPOKE WITH ED ROOF TILE LAYER TO CANCEL 2ND BMP,LIVER,LIPASE. Performed By: #### L 500.2500, L500.3400, L100.0100 #### [facility] [address] [place], [address] eGFR Normal >60 [facility] Comment on above: Result Comment: IRENE VELA, SPOKE WITH ED ROOF TILE LAYER TO CANCEL 2ND BMP,LIVER,LIPASE. Performed By: #### L 500.2500, L500.3400, L100.0100 #### [facility] [address] [place], [address] GAP Normal 5-15 [facility] Comment on above: Result Comment: IRENE VELA, SPOKE WITH ED ROOF TILE LAYER TO CANCEL 2ND BMP,LIVER,LIPASE. Performed By: #### L 500.2500, L500.3400, L100.0100 #### [facility] [address] [place], [address] GLU Normal 70-99 [facility] Comment on above: Result Comment: IRENE VELA, SPOKE WITH ED ROOF TILE LAYER TO CANCEL 2ND BMP,LIVER,LIPASE. Performed By: #### L 500.2500, L500.3400, L100.0100 #### [facility] [address] [place], [address] Potassium Normal 3.3-5.1 [facility] Comment on above: Result Comment: IRENE VELA, SPOKE WITH ED ROOF TILE LAYER TO CANCEL 2ND BMP,LIVER,LIPASE. Performed By: #### L 500.2500, L500.3400, L100.0100 #### [facility] [address] [place], [address] Basic Metabolic Profile (BMP) Normal 133-145 [facility] Comment on above: Result Comment: IRENE VELA, SPOKE WITH ED ROOF TILE LAYER TO CANCEL 2ND BMP,LIVER,LIPASE. Performed By: #### L 500.2500, L500.3400, L100.0100 #### [facility] [address] [place], [address] Basophil percentageOrdered B y: Raza Ruiz on 07-31-2024 Basophils/100 WBC (Bld) 0.7 % 0-1 [facility] Bilirubin Test strip Ql (U)O rdered By: Raza Ruiz on 07-31-2024 Bilirubin Ql (U) Negative Negative [facility] Bilirubin directOrdered By: Raza Ruiz on 07-31-2024 Bilirubin.direct [Mass/Vol] 0.14 mg/dL 0.00-0.30 [facility] Bilirubin, totalOrdered By: Raza Ruiz on 07-31-2024 Bilirubin [Mass/Vol] 0.29 mg/dL 0.00-1.30 [facility] CBC W/Diff, Automatedon Absolute Neut Normal 2.0-7.7 [facility] Comment on above: Result Comment: IRENE VELA, SPOKE WITH ED ROOF TILE LAYER TO CANCEL SECOND CBCD. Performed By: #### L 500.2500, L500.3400, L100.0100 #### [facility] [address] [place], [address] HCT Normal 37-47 [facility] Comment on above: Result Comment: IRENE VELA, SPOKE WITH ED ROOF TILE LAYER TO CANCEL SECOND CBCD. Performed By: #### L 500.2500, L500.3400, L100.0100 #### [facility] [address] [place], [address] HGB Normal 12.0-15.0 [facility] Comment on above: Result Comment: IRENE VELA, SPOKE WITH ED ROOF TILE LAYER TO CANCEL SECOND CBCD. Performed By: #### L 500.2500, L500.3400, L100.0100 #### [facility] [address] [place], [address] MCH Normal 27.0-32.0 [facility] Comment on above: Result Comment: IRENE VELA, SPOKE WITH ED ROOF TILE LAYER TO CANCEL SECOND CBCD. Performed By: #### L 500.2500, L500.3400, L100.0100 #### [facility] [address] [place], [address] MCHC Normal 32-36 [facility] Comment on above: Result Comment: IRENE VELA, SPOKE WITH ED ROOF TILE LAYER TO CANCEL SECOND CBCD. Performed By: #### L 500.2500, L500.3400, L100.0100 #### [facility] [address] [place], [address] MCV Normal 81-99 [facility] Comment on above: Result Comment: IRENE VELA, SPOKE WITH ED ROOF TILE LAYER TO CANCEL SECOND CBCD. Performed By: #### L 500.2500, L500.3400, L100.0100 #### [facility] [address] [place], [address] NEUT% Normal 47-70 [facility] Comment on above: Result Comment: IRENE VELA, SPOKE WITH ED ROOF TILE LAYER TO CANCEL SECOND CBCD. Performed By: #### L 500.2500, L500.3400, L100.0100 #### [facility] [address] [place], [address] PLT Normal 150-450 [facility] Comment on above: Result Comment: IRENE VELA, SPOKE WITH ED ROOF TILE LAYER TO CANCEL SECOND CBCD. Performed By: #### L 500.2500, L500.3400, L100.0100 #### [facility] [address] [place], [address] RBC Normal 4.2-5.4 [facility] Comment on above: Result Comment: IRENE VELA, SPOKE WITH ED ROOF TILE LAYER TO CANCEL SECOND CBCD. Performed By: #### L 500.2500, L500.3400, L100.0100 #### [facility] [address] [place], [address] RDW CV Normal 11.6-14.6 [facility] Comment on above: Result Comment: IRENE VELA, SPOKE WITH ED ROOF TILE LAYER TO CANCEL SECOND CBCD. Performed By: #### L 500.2500, L500.3400, L100.0100 #### [facility] [address] [place], [address] RDW SD Normal 35.1-43.9 [facility] Comment on above: Result Comment: IRENE VELA, SPOKE WITH ED ROOF TILE LAYER TO CANCEL SECOND CBCD. Performed By: #### L 500.2500, L500.3400, L100.0100 #### [facility] [address] [place], [address] WBC Normal 4.4-11.0 [facility] Comment on above: Result Comment: IRENE VELA, SPOKE WITH ED ROOF TILE LAYER TO CANCEL SECOND CBCD. Performed By: #### L 500.2500, L500.3400, L100.0100 #### [facility] [address] [place], [address] Absolute Lymph 1.05 X10 3/uL Normal 0.83-4.51 [facility] Comment on above: Performed By: #### L 500.2500, L100.0100, L503.6005 #### [facility] [address] [place], [address] Absolute Neut 3.8 X10 3/uL Normal 2.0-7.7 [facility] Comment on above: Performed By: #### L 500.2500, L100.0100, L503.6005 #### [facility] [address] [place], [address] Basophils/100 WBC (Bld) 0.7 % Normal 0-1 [facility] Comment on above: Performed By: #### L 500.2500, L100.0100, L503.6005 #### [facility] [address] [place], [address] Eosinophils/100 WBC (Bld) 2.6 % Normal 0-5 [facility] Comment on above: Performed By: #### L 500.2500, L100.0100, L503.6005 #### [facility] [address] [place], [address] Erythrocyte distribution width (RBC) [Ratio] 13.6 % Normal 11.6-14.6 [facility] Comment on above: Performed By: #### L 500.2500, L100.0100, L503.6005 #### [facility] [address] [place], [address] Hematocrit (Bld) [Volume fraction] 40.0 % Normal 37-47 [facility] Comment on above: Performed By: #### L 500.2500, L100.0100, L503.6005 #### [facility] [address] [place], [address] Hemoglobin (Bld) [Mass/Vol] 13.2 g/dL Normal 12.0-15.0 [facility] Comment on above: Performed By: #### L 500.2500, L100.0100, L503.6005 #### [facility] [address] [place], [address] IG% 0.600 Normal 0.0-0.9 [facility] Comment on above: Result Comment: IG% - Immature Granulocytes (promyelocytes, myelocytes and metamyelocytes) > 1% indicates that a LEFT SHIFT is Present. Performed By: #### L 500.2500, L100.0100, L503.6005 #### [facility] [address] [place], [address] Lymphocytes/100 WBC (Bld) 19.3 % Normal 19-41 [facility] Comment on above: Performed By: #### L 500.2500, L100.0100, L503.6005 #### [facility] [address] [place], [address] MCH (RBC) [Entitic mass] 31.0 pg Normal 27.0-32.0 [facility] Comment on above: Performed By: #### L 500.2500, L100.0100, L503.6005 #### [facility] [address] [place], [address] MCHC (RBC) [Mass/Vol] 33.0 g/dL Normal 32-36 [facility] Comment on above: Performed By: #### L 500.2500, L100.0100, L503.6005 #### [facility] [address] [place], [address] MCV (RBC) [Entitic vol] 93.9 fL Normal 81-99 [facility] Comment on above: Performed By: #### L 500.2500, L100.0100, L503.6005 #### [facility] [address] [place], [address] Monocytes/100 WBC (Bld) 6.4 % Normal 0-10 [facility] Comment on above: Performed By: #### L 500.2500, L100.0100, L503.6005 #### [facility] [address] [place], [address] Neutrophils/100 WBC (Bld) 70.4 % High 47-70 [facility] Comment on above: Performed By: #### L 500.2500, L100.0100, L503.6005 #### [facility] [address] [place], [address] Nucleated RBC (Bld) [#/Vol] 0 10*3/uL Normal 0-5 [facility] Comment on above: Performed By: #### L 500.2500, L100.0100, L503.6005 #### [facility] [address] [place], [address] Platelet mean volume (Bld) [Entitic vol] 8.5 fL Normal 6.2-12.0 [facility] Comment on above: Performed By: #### L 500.2500, L100.0100, L503.6005 #### [facility] [address] [place], [address] Platelets (Bld) [#/Vol] 267 10*3/uL Normal 150-450 [facility] Comment on above: Performed By: #### L 500.2500, L100.0100, L503.6005 #### [facility] [address] [place], [address] RBC (Bld) [#/Vol] 4.26 10*6/uL Normal 4.2-5.4 [facility] Comment on above: Performed By: #### L 500.2500, L100.0100, L503.6005 #### [facility] [address] [place], [address] RDW SD 45.6 fl High 35.1-43.9 [facility] Comment on above: Performed By: #### L 500.2500, L100.0100, L503.6005 #### [facility] [address] [place], [address] WBC (Bld) [#/Vol] 5.4 10*3/uL Normal 4.4-11.0 [facility] Comment on above: Performed By: #### L 500.2500, L100.0100, L503.6005 #### [facility] [address] [place], [address] Carbon dioxide, total [Moles /volume] in Central venous bloodOrdered By: Raza Ruiz on 07-31-2024 CO2 [Moles/Vol] 23.8 mmol/L 21.0-32.0 [facility] Chloride assayOrdered By: Prashant Ruiz on 07-31-2024 Chloride [Moles/Vol] 106 mmol/L 98-108 [facility] Emergency Department Summary on 07-31-2024 Emergency Department Summary [facility] Medical Records Department [address] [place] [address] Emergency Department Summary 07/31/24 MR#: [id number] Acct: [id number] Name: TEMITOPE HADDAD Gabriel Rep #: [id number] : 1955 69 From: Raza Ruiz DO PCP: Dr. Bird Ronquillo MD Status:DEP ER Location: ED HPI History of Present Illness Chief Complaint: Abd Pain [facility] Medical History Osteoporosis Kidney stones Kidney disease GERD (gastroesophageal reflux disease) Myocardial infarct Internal impingement of right shoulder Hypothyroidism Abnormal Holter monitor finding Sinus pause Mixed hyperlipidemia Atherosclerotic heart disease of [place] coronary artery without angina pectoris Essential hypertension [...] included)... Normal [facility] Eosinophil percentageOrdered By: Raza Ruiz on 07-31-2024 Eosinophils/100 WBC (Bld) 2.6 % 0-5 [facility] Erythrocyte distribution wid th ratioOrdered By: Raza Ruiz on 03-05-2025 Erythrocyte distribution width (RBC) [Ratio] 13.6 % 11.6-14.6 [facility] Erythrocyte distribution wid th standard deviationOrdered By: Raza Ruiz on 07-31-2024 Erythrocyte distribution width (RBC) [Ratio] 45.6 fl High 35.1-43.9 [facility] Gallbladderon 07-31-2024 Gallbladder [facility] Imaging Services [address] [place] [address] Gallbladder MR#: [id number] Acct: [id number] Name: TEMITOPE HADDAD Rep #: [id number] : 1955 F 69 From: Kevon Jacobs DO PCP: Dr. Bird Ronquillo MD Status: REG ER Study: Gallbladder Date of Exam: 07/31/24 Exam# [id number] Ordering Dr: Raza Ruiz DO PROCEDURE: GALLBLADDER [...] Bird Ronquillo MD; Dr. Raza Ruiz DO Stone Engraver: Signed Normal [facility] Glomerular filtration rate ( GFR) estimation/1.73 sq m using serum, plasma, or whole bOrdered By: Raza Ruiz on 07-31-2024 GFR/1.73 sq M.predicted among non-blacks MDRD (S/P/Bld) [Vol rate/Area] 62 mL/min/{1.73_m2} >60 [facility] Comment on above: mL/min/1.73m2 CKD-EP I Creatinine Equation (2020) Hematocrit Auto (Bld) [Volum e fraction]Ordered By: Raza Ruiz on 07-31-2024 Hematocrit (Bld) [Volume fraction] 40.0 % 37-47 [facility] Hemoglobin measurementOrdere d By: Raza Ruiz on 07-31-2024 Hemoglobin (Bld) [Mass/Vol] 13.2 g/dL 12.0-15.0 [facility] Immature granulocytes/100 WB C Auto (Bld)Ordered By: Raza Ruiz on 07-31-2024 Immature granulocytes/100 WBC (Bld) 0.600 % 0.0-0.9 [facility] Comment on above: IG% - Immature Granu locytes (promyelocytes, myelocytes and metamyelocytes) > 1% indicates that a LEFT SHIFT is Present. Ketones Test strip Ql (U)Ord ered By: Raza Ruiz on 07-31-2024 Ketones Ql (U) Negative Negative [facility] Laboratory - Chemistry and C hemistry - challengeOrdered By: Raza Ruiz on 07-31-2024 AST [Catalytic activity/Vol] 30 U/L <32 [facility] Lipaseon 07-31-2024 Lipase [Catalytic activity/Vol] 13 U/L Normal 13-75 [facility] Comment on above: Result Comment: Plea note: LIPASE revised reference range effective 22. New Lipase methodology. Expected to produce lower values than the previous assay method. NEW Reference Range: 13 - 75 U/L Performed By: #### L 500.2500, L500.3400, L100.0100 #### [facility] [address] [place], [place], [address] Lipase measurementOrdered By : Raza Ruiz on 07-31-2024 Lipase [Catalytic activity/Vol] 13 U/L 13-75 [facility] Comment on above: Please note:LIPASE r evised reference range effective 22. New Lipase methodology. Expected to produce lower values than the previous assay method. NEW Reference Range: 13 - 75 U/L Liver Profileon 07-31-2024 Albumin [Mass/Vol] 3.8 g/dL Normal 3.4-4.8 [facility] Comment on above: Performed By: #### L 500.2500, L500.3400, L100.0100 #### [facility] [address] [place], [address] ALK PHOS 71 U/L Normal 35-104 [facility] Comment on above: Performed By: #### L 500.2500, L500.3400, L100.0100 #### [facility] [address] [place], [address] ALT [Catalytic activity/Vol] 38 U/L High <=34 [facility] Comment on above: Performed By: #### L 500.2500, L500.3400, L100.0100 #### [facility] [address] [place], [address] AST [Catalytic activity/Vol] 30 U/L Normal <=31 [facility] Comment on above: Performed By: #### L 500.2500, L500.3400, L100.0100 #### [facility] [address] [place], [address] Bilirubin [Mass/Vol] 0.29 mg/dL Normal 0.00-1.30 [facility] Comment on above: Performed By: #### L 500.2500, L500.3400, L100.0100 #### [facility] [address] [place], [address] Bilirubin.direct [Mass/Vol] 0.14 mg/dL Normal 0.00-0.30 [facility] Comment on above: Performed By: #### L 500.2500, L500.3400, L100.0100 #### [facility] [address] [place], [address] Globulin (S) [Mass/Vol] 3.2 g/dL Normal 2.2-4.2 [facility] Comment on above: Performed By: #### L 500.2500, L500.3400, L100.0100 #### [facility] [address] [place], [address] T PROT 7.0 g/dL Normal 5.9-8.4 [facility] Comment on above: Performed By: #### L 500.2500, L500.3400, L100.0100 #### [facility] [address] [place], [address] ALB Normal 3.4-4.8 [facility] Comment on above: Result Comment: IRENE VELA, SPOKE WITH ED ROOF TILE LAYER TO CANCEL 2ND BMP,LIVER,LIPASE. Performed By: #### L 500.2500, L500.3400, L100.0100 #### [facility] [address] [place], [address] ALK PHOS Normal 35-104 [facility] Comment on above: Result Comment: IRENE VELA, SPOKE WITH ED ROOF TILE LAYER TO CANCEL 2ND BMP,LIVER,LIPASE. Performed By: #### L 500.2500, L500.3400, L100.0100 #### [facility] [address] [place], [address] ALT Normal <=34 [facility] Comment on above: Result Comment: IRENE VELA, SPOKE WITH ED ROOF TILE LAYER TO CANCEL 2ND BMP,LIVER,LIPASE. Performed By: #### L 500.2500, L500.3400, L100.0100 #### [facility] [address] [place], [address] AST Normal <=31 [facility] Comment on above: Result Comment: IRENE VELA, SPOKE WITH ED ROOF TILE LAYER TO CANCEL 2ND BMP,LIVER,LIPASE. Performed By: #### L 500.2500, L500.3400, L100.0100 #### [facility] [address] [place], [address] D BILI Normal 0.00-0.30 [facility] Comment on above: Result Comment: IRENE VELA, SPOKE WITH ED ROOF TILE LAYER TO CANCEL 2ND BMP,LIVER,LIPASE. Performed By: #### L 500.2500, L500.3400, L100.0100 #### [facility] [address] [place], [address] T BILI Normal 0.00-1.30 [facility] Comment on above: Result Comment: IRENE VELA, SPOKE WITH ED ROOF TILE LAYER TO CANCEL 2ND BMP,LIVER,LIPASE. Performed By: #### L 500.2500, L500.3400, L100.0100 #### [facility] [address] [place], [address] T PROT Normal 5.9-8.4 [facility] Comment on above: Result Comment: IRENE VELA, SPOKE WITH ED ROOF TILE LAYER TO CANCEL 2ND BMP,LIVER,LIPASE. Performed By: #### L 500.2500, L500.3400, L100.0100 #### [facility] [address] [place], [address] MCV (mean corpuscular volume ) determinationOrdered By: Raza Ruiz on 07-31-2024 MCV (RBC) [Entitic vol] 93.9 fL 81-99 [facility] Mean corpuscular hemoglobin (MCH) determinationOrdered By: Raza Ruiz on 07-31-2024 MCH (RBC) [Entitic mass] 31.0 pg 27.0-32.0 [facility] Mean corpuscular hemoglobin concentration (MCHC) determinationOrdered By: Raza Ruiz on 07-31-2024 MCHC (RBC) [Mass/Vol] 33.0 g/dL 32-36 [facility] Mean platelet volume determi nationOrdered By: Raza Riuz on 07-31-2024 Platelet mean volume (Bld) [Entitic vol] 8.5 fL 6.2-12.0 [facility] Microscopic analysis of urin e for red blood cells (RBC)Ordered By: Raza Ruiz on 07-31-2024 Microscopic analysis of urine for red blood cells (RBC) 0-5 SEEN /hpf 0-5 [facility] Monocyte percentageOrdered B y: Raza Ruiz on 07-31-2024 Monocytes/100 WBC (Bld) 6.4 % 0-10 [facility] Mucus LM Ql (Urine sed)Order ed By: Raza Ruiz on 07-31-2024 Mucus Ql (Urine sed) 0 SEEN /hpf [facility] Neutrophil percentageOrdered By: Raza Ruiz on 07-31-2024 Neutrophils/100 WBC (Bld) 70.4 % High 47-70 [facility] Nitrite Test strip Ql (U)Ord ered By: Raza Ruiz on 07-31-2024 Nitrite Ql (U) Negative Negative [facility] Nucleated red blood cell per centageOrdered By: Raza Ruiz on 07-31-2024 Nucleated RBC/100 WBC (Bld) [Ratio] 0 % 0-5 [facility] Platelet countOrdered By: Prashant Ruiz on 07-31-2024 Platelets (Bld) [#/Vol] 267 10*3/uL 150-450 [facility] Potassium measurement (mass/ volume)Ordered By: Raza Ruiz on 07-31-2024 Potassium (Unsp spec) [Mass/Vol] 4.1 mmol/L 3.3-5.1 [facility] Protein Test strip Ql (U)Ord ered By: Raza Ruiz on 07-31-2024 Protein Ql (U) 15 mg/dl High Negative [facility] RBC Auto (Bld) [#/Vol]Ordere d By: Raza Ruiz on 07-31-2024 RBC (Bld) [#/Vol] 4.26 10*6/uL 4.2-5.4 [facility] Serum creatinine measurement (mass/volume)Ordered By: Raza Ruiz on 07-31-2024 Creatinine [Mass/Vol] 1.00 mg/dL 0.70-1.20 [facility] Serum globulin measurementOr dered By: Raza Ruiz on 07-31-2024 Globulin (S) [Mass/Vol] 3.2 g/dL 2.2-4.2 [facility] Serum glucose measurement (m ass/volume)Ordered By: Raza Ruiz on 07-31-2024 Glucose [Mass/Vol] 115 mg/dL High 70-99 [facility] Serum or plasma alanine apodaca otransferase (ALT) measurementOrdered By: Raza Riuz on 07-31-2024 ALT [Catalytic activity/Vol] 38 U/L High <35 [facility] Serum or plasma albumin tino urement (mass/volume)Ordered By: Raza Ruiz on 07-31-2024 Albumin [Mass/Vol] 3.8 g/dL 3.4-4.8 [facility] Serum or plasma alkaline coty sphatase measurementOrdered By: Raza Ruiz on 07-31-2024 ALP [Catalytic activity/Vol] 71 U/L 35-104 [facility] Serum or plasma calcium tino urement (mass/volume)Ordered By: Raza Ruiz on 07-31-2024 Calcium [Mass/Vol] 9.4 mg/dL 7.6-11.0 [facility] Serum or plasma urea nitroge n measurement (mass/volume)Ordered By: Raza Ruiz on 07-31-2024 Urea nitrogen [Mass/Vol] 15 mg/dL 4-19 [facility] Sodium levelOrdered By: Rohini Ruiz on 07-31-2024 Sodium [Moles/Vol] 141 mmol/L 133-145 [facility] Squamous epithelial cells de tection in urine sediment by light microscopyOrdered By: Raza Ruiz on 07-31-2024 Epithelial cells.squamous LM Ql (Urine sed) 0-5 SEEN /hpf 5-10 [facility] Total proteinOrdered By: Louise Ruiz on 07-31-2024 Protein [Mass/Vol] 7.0 g/dL 5.9-8.4 [facility] Urinalysis, Completeon 07-31 AMORPHOUS 1+ URATE Normal [facility] Comment on above: Order Comment: CLEAN CATCH Performed By: #### L 400.0001 #### [facility] Laboratory [address] [place], [address] EPI,SQUAMOUS 0-5 SEEN Normal 5-10 [facility] Comment on above: Order Comment: CLEAN CATCH Performed By: #### L 400.0001 #### [facility] Laboratory [address] [place], [address] RBC 0-5 SEEN Normal 0-5 [facility] Comment on above: Order Comment: CLEAN CATCH Performed By: #### L 400.0001 #### [facility] Laboratory [address] [place], [address] WBC 5-10 SEEN Normal 0-5 [facility] Comment on above: Order Comment: CLEAN CATCH Performed By: #### L 400.0001 #### [facility] Laboratory [address] [place], [address] BACTERIA 0 SEEN Normal None Seen [facility] Comment on above: Order Comment: CLEAN CATCH Performed By: #### L 400.0001 #### [facility] Laboratory [address] [place], [address] Mucus Ql (Urine sed) 0 SEEN Normal [facility] Comment on above: Order Comment: CLEAN CATCH Performed By: #### L 400.0001 #### [facility] Laboratory [address] [place], [address] Urine clarityOrdered By: Louise Ruiz on 07-31-2024 Clarity (U) Sl. Cloudy Clear [facility] Urine color determinationOrd ered By: Raza Ruiz on 07-31-2024 Color (U) Yellow Yellow [facility] Urine glucose detectionOrder ed By: Raza Ruiz on 07-31-2024 Glucose Ql (U) Normal mg/dl Normal [facility] Urine leukocyte esterase det ection by dipstickOrdered By: Raza Ruiz on 07-31-2024 Leukocyte esterase Test strip Ql (U) 500 /ul High Negative [facility] Urine pHOrdered By: Raza moreno on 07-31-2024 pH (U) 6.0 [pH] 5.0 - 8.0 [facility] Urine sediment bacteria coun t by microscopy (number/high power field)Ordered By: Raza Ruiz on 07-31-2024 Bacteria LM.HPF (Urine sed) [#/Area] 0 /[HPF] None Seen [facility] Urine specific gravity measu rementOrdered By: Raza Ruiz on 07-31-2024 Specific gravity (U) [Rel density] 1.015 1.002-1.03 0 [facility] Urine urobilinogen measureme ntOrdered By: Raza Ruiz on 07-31-2024 Urobilinogen Ql (U) Normal mg/dl Normal [facility] White blood cell (WBC) count Ordered By: Raza Ruiz on 07-31-2024 WBC (Bld) [#/Vol] 5.4 10*3/uL 4.4-11.0 [facility] White blood cell countOrdere d By: Raza Ruiz on 07-31-2024 White blood cell count 5-10 SEEN /hpf 0-5 [facility] TSH SerPl-aCncon 07-30-2024 TSH Qn 2.330 m[IU]/L Normal 0.270-4.20 0 [facility] Comment on above: Order Comment: Speci men Type: BLOOD SPECIMENOrdering Facility: [facility] Address: [address] [place] [address] Performed By: #### 3 016-3 ####[facility] LABORATORYCLIA [id number] [place] [address] [place] 12 Lead EKGon 07-19-2024 12 Lead EKG [facility] Cardiovascular Services [address] [place] [address] 12 Lead EKG 07/19/247 MR#: [id number] Acct: [id number] Name: TEMITOPE HADDAD Gabriel Rep #: [id number] : 1955 69 From: Peter Garcia MD [...] 16-Jan-2024) Abnormal ECG Reconfirmed by Peter Garcia ([id number]), film editor ISAAK BHARDWAJ ([id number]) on 07/22/2024 9:58:03 AM Referred By: Confirmed By: Peter Garcia 07/22/24 0958 Date Peter Garcia MD CC: Dr. Colin Caba DO; Dr. Bird Ronquillo MD Signed Normal [facility] Absolute lymphocyte countOrd ered By: Colin Caba on 07-19-2024 Lymphocytes Auto (Unsp spec) [#/Vol] 0.99 10*3/uL 0.83-4.51 [facility] Absolute neutrophil countOrd ered By: Colin Caba on 07-19-2024 Neutrophils (Bld) [#/Vol] 5.3 10*3/uL 2.0-7.7 [facility] Albumin to globulin ratioOrd ered By: Colin Caba on 07-19-2024 Albumin/Globulin [Mass ratio] 0.8 {ratio} Low 0.9-2.4 [facility] Automated lymphocyte count a s percentage of total leukocytesOrdered By: Colin Caba on 07-19-2024 Lymphocytes/100 WBC Auto (Unsp spec) 14.7 % Low 19-41 [facility] Basophil percentageOrdered B y: Colin Caba on 07-19-2024 Basophils/100 WBC (Bld) 0.3 % 0-1 [facility] Bilirubin, totalOrdered By: Colin Caba on 07-19-2024 Bilirubin [Mass/Vol] 0.60 mg/dL 0.20-1.00 [facility] Comment on above: For patients on eltr ombopag therapy, use of Dimension [place] TBIL is not recommended. Blood urea nitrogen (BUN)/cr eatinine ratioOrdered By: Colin Caba on 07-19-2024 Urea nitrogen/Creatinine [Mass ratio] 13.1 mg/mg - [facility] CBC W/Diff, Automatedon 06-30 Absolute Lymph 0.99 X10 3/uL Normal 0.83-4.51 [facility] Comment on above: Performed By: #### L 100.0100, L500.4050, L501.2450 #### [facility] Laboratory [address] [place], [address] Absolute Neut 5.3 X10 3/uL Normal 2.0-7.7 [facility] Comment on above: Performed By: #### L 100.0100, L500.4050, L501.2450 #### [facility] Laboratory [address] [place], [address] Basophils/100 WBC (Bld) 0.3 % Normal 0-1 [facility] Comment on above: Performed By: #### L 100.0100, L500.4050, L501.2450 #### [facility] Laboratory [address] [place], [address] Eosinophils/100 WBC (Bld) 1.8 % Normal 0-5 [facility] Comment on above: Performed By: #### L 100.0100, L500.4050, L501.2450 #### [facility] Laboratory [address] [place], [address] Erythrocyte distribution width (RBC) [Ratio] 13.0 % Normal 11.6-14.6 [facility] Comment on above: Performed By: #### L 100.0100, L500.4050, L501.2450 #### [facility] Laboratory [address] [place], [address] Hematocrit (Bld) [Volume fraction] 42.1 % Normal 37-47 [facility] Comment on above: Performed By: #### L 100.0100, L500.4050, L501.2450 #### [facility] Laboratory [address] [place], [address] Hemoglobin (Bld) [Mass/Vol] 14.0 g/dL Normal 12.0-15.0 [facility] Comment on above: Performed By: #### L 100.0100, L500.4050, L501.2450 #### [facility] Laboratory [address] [place], [address] IG% 0.400 Normal 0.0-0.9 [facility] Comment on above: Result Comment: IG% - Immature Granulocytes (promyelocytes, myelocytes and metamyelocytes) > 1% indicates that a LEFT SHIFT is Present. Performed By: #### L 100.0100, L500.4050, L501.2450 #### [facility] Laboratory [address] [place], [address] Lymphocytes/100 WBC (Bld) 14.7 % Low 19-41 [facility] Comment on above: Performed By: #### L 100.0100, L500.4050, L501.2450 #### [facility] Laboratory [address] [place], [address] MCH (RBC) [Entitic mass] 30.8 pg Normal 27.0-32.0 [facility] Comment on above: Performed By: #### L 100.0100, L500.4050, L501.2450 #### [facility] Laboratory [address] [place], [address] MCHC (RBC) [Mass/Vol] 33.3 g/dL Normal 32-36 [facility] Comment on above: Performed By: #### L 100.0100, L500.4050, L501.2450 #### [facility] Laboratory [address], [address] MCV (RBC) [Entitic vol] 92.7 fL Normal 81-99 [facility] Comment on above: Performed By: #### L 100.0100, L500.4050, L501.2450 #### [facility] Laboratory [address] [place], [address] Monocytes/100 WBC (Bld) 4.2 % Normal 0-10 [facility] Comment on above: Performed By: #### L 100.0100, L500.4050, L501.2450 #### [facility] Laboratory [address] [place], [address] Neutrophils/100 WBC (Bld) 78.6 % High 47-70 [facility] Comment on above: Performed By: #### L 100.0100, L500.4050, L501.2450 #### [facility] Laboratory [address] [place], [address] Nucleated RBC (Bld) [#/Vol] 0 10*3/uL Normal 0-5 [facility] Comment on above: Performed By: #### L 100.0100, L500.4050, L501.2450 #### [facility] Laboratory [address] [place], [address] Platelet mean volume (Bld) [Entitic vol] 9.2 fL Normal 6.2-12.0 [facility] Comment on above: Performed By: #### L 100.0100, L500.4050, L501.2450 #### [facility] Laboratory [address] [place], [address] Platelets (Bld) [#/Vol] 188 10*3/uL Normal 150-450 [facility] Comment on above: Performed By: #### L 100.0100, L500.4050, L501.2450 #### [facility] Laboratory [address] [place], [address] RBC (Bld) [#/Vol] 4.54 10*6/uL Normal 4.2-5.4 [facility] Comment on above: Performed By: #### L 100.0100, L500.4050, L501.2450 #### [facility] Laboratory [address] [place], [address] RDW SD 44.0 fl High 35.1-43.9 [facility] Comment on above: Performed By: #### L 100.0100, L500.4050, L501.2450 #### [facility] Laboratory [address] [place], [address] WBC (Bld) [#/Vol] 6.7 10*3/uL Normal 4.4-11.0 [facility] Comment on above: Performed By: #### L 100.0100, L500.4050, L501.2450 #### [facility] Laboratory [address] [place], [address] Carbon dioxide measurementOr dered By: Colin Caba on 07-19-2024 CO2 [Moles/Vol] 28.0 mmol/L 21.0-32.0 [facility] Chest 1 View (Portable)on Chest 1 View (Portable) [facility] Imaging Services [address] [place] [address] Chest 1 View (Portable) MR#: [id number] Acct: [id number] Name: TEMITOPE HADDAD Rep #: [id number] : 1955 F 69 From: Mary Car nd, MD PCP: Dr. Bird Ronquillo MD Status: PRE ER Study: Chest 1 View (Portable) Date of Exam: 07/19/24 Exam# [id number] Ordering Dr: Provider,Ed P. PROCEDURE: CHEST 1 [...] IMPRESSION: COPD. NO ACUTE FINDINGS. Reading Location: [id number] CC: Dr. Bird Ronquillo MD; ED PHYSICIAN PROVIDER Stone Engraver: Signed Normal [facility] Chloride measurementOrdered By: Colin Caba on 07-19-2024 Chloride [Moles/Vol] 104 mmol/L 98-107 [facility] Comprehensive Metabolic Prof ilon 07-19-2024 Albumin [Mass/Vol] 3.5 g/dL Normal 3.2-5.0 [facility] Comment on above: Performed By: #### L 100.0100, L500.4050, L501.2450 #### [facility] Laboratory [address] [place], [address] Albumin/Globulin [Mass ratio] 0.8 {ratio} Low 0.9-2.4 [facility] Comment on above: Performed By: #### L 100.0100, L500.4050, L501.2450 #### [facility] Laboratory [address] [place], [address] ALK P 81 U/L Normal 45-117 [facility] Comment on above: Performed By: #### L 100.0100, L500.4050, L501.2450 #### [facility] Laboratory [address] [place], [address] ALT [Catalytic activity/Vol] 37 U/L Normal 13-56 [facility] Comment on above: Performed By: #### L 100.0100, L500.4050, L501.2450 #### [facility] Laboratory [address] [place], [address] AST [Catalytic activity/Vol] 25 U/L Normal 15-37 [facility] Comment on above: Performed By: #### L 100.0100, L500.4050, L501.2450 #### [facility] Laboratory [address] [place], [address] Bilirubin [Mass/Vol] 0.60 mg/dL Normal 0.20-1.00 [facility] Comment on above: Result Comment: For patients on eltrombopag therapy, use of Dimension [place] TBIL is not recommended. Performed By: #### L 100.0100, L500.4050, L501.2450 #### [facility] Laboratory [address] [place], [address] BUN/CRE 13.1 RATIO Normal 10-20 [facility] Comment on above: Performed By: #### L 100.0100, L500.4050, L501.2450 #### [facility] Laboratory [address] [place], [address] CA,Total 9.4 mg/dL Normal 8.5-10.1 [facility] Comment on above: Performed By: #### L 100.0100, L500.4050, L501.2450 #### [facility] Laboratory [address] [place], [address] Chloride [Moles/Vol] 104 mmol/L Normal 98-107 [facility] Comment on above: Performed By: #### L 100.0100, L500.4050, L501.2450 #### [facility] Laboratory [address] [place], [address] CO2 [Moles/Vol] 28.0 mmol/L Normal 21.0-32.0 [facility] Comment on above: Performed By: #### L 100.0100, L500.4050, L501.2450 #### [facility] Laboratory [address] [place], [address] Creatinine [Mass/Vol] 0.99 mg/dL Normal 0.55-1.02 [facility] Comment on above: Result Comment: The validity of the calculated GFR GFRAA in patients over 70 years has not been determined. Clinical correlation is essential. Performed By: #### L 100.0100, L500.4050, L501.2450 #### [facility] Laboratory [address] [place], [address] EST GFR - AA 72 mL/min Normal >60 [facility] Comment on above: Result Comment: Afri can [place] GFR Calc Performed By: #### L 100.0100, L500.4050, L501.2450 #### [facility] Laboratory [address] [place], [address] GAP 7 Normal 5-15 [facility] Comment on above: Performed By: #### L 100.0100, L500.4050, L501.2450 #### [facility] Laboratory [address] [place], [address] GFR/1.73 sq M.predicted among non-blacks MDRD (S/P/Bld) [Vol rate/Area] 60 mL/min/{1.73_m2} Normal >60 [facility] Comment on above: Result Comment: Non- GFR Calc Performed By: #### L 100.0100, L500.4050, L501.2450 #### [facility] Laboratory [address] [place], [address] Globulin (S) [Mass/Vol] 4.2 g/dL Normal 2.2-4.2 [facility] Comment on above: Performed By: #### L 100.0100, L500.4050, L501.2450 #### [facility] Laboratory [address] [place], [address] Glucose [Mass/Vol] 100 mg/dL Normal 74-106 [facility] Comment on above: Result Comment: Fast ing Glucose result from 100 to 125 mg/dL suggests IMPAIRED HOMEOSTASIS per A.D.A. criteria. Performed By: #### L 100.0100, L500.4050, L501.2450 #### [facility] Laboratory [address] [place], [address] Potassium [Moles/Vol] 3.6 mmol/L Normal 3.5-5.1 [facility] Comment on above: Performed By: #### L 100.0100, L500.4050, L501.2450 #### [facility] Laboratory [address] [place], [address] Sodium [Moles/Vol] 139 mmol/L Normal 136-145 [facility] Comment on above: Performed By: #### L 100.0100, L500.4050, L501.2450 #### [facility] Laboratory [address] [place], [address] T PROT 7.7 g/dL Normal 6.4-8.2 [facility] Comment on above: Performed By: #### L 100.0100, L500.4050, L501.2450 #### [facility] Laboratory [address] [place], [address] Urea nitrogen [Mass/Vol] 13 mg/dL Normal 7-18 [facility] Comment on above: Performed By: #### L 100.0100, L500.4050, L501.2450 #### [facility] Laboratory [address] [place], [address] Emergency Department Summary on 07-19-2024 Emergency Department Summary [facility] Medical Records Department [address] [place] [address] Emergency Department Summary 07/19/24 MR#: [id number] Acct: [id number] Name: TEMITOPE HADDAD Gabriel Rep #: [id number] : 1955 69 From: Colin Caba DO [...] intact Psych: Cooperative, appropriate mood and affect [facility] Medical History Osteoporosis Kidney stones Kidney disease GERD (gastroesophageal reflux disease) Myocardial infarct Internal impingement of right shoulder Hypothyroidism Abnormal Holter monitor finding Sinus pause Mixed hyperlipidemia Atherosclerotic heart disease of [place] coronary artery without angina pectoris Essential hypertension [...] included)... Normal [facility] Eosinophil percentageOrdered By: Colin Caba on 07-19-2024 Eosinophils/100 WBC (Bld) 1.8 % 0-5 [facility] Erythrocyte distribution wid th ratioOrdered By: Colin Caba on 07-19-2024 Erythrocyte distribution width (RBC) [Ratio] 13.0 % 11.6-14.6 [facility] Erythrocyte distribution wid th standard deviationOrdered By: Colin Pickering on 07-19-2024 Erythrocyte distribution width (RBC) [Ratio] 44.0 fl High 35.1-43.9 [facility] Gallbladderon 07-19-2024 Gallbladder [facility] Imaging Services [address] [place] [address] Gallbladder MR#: [id number] Acct: [id number] Name: TEMITOPE HADDAD Rep #: [id number] : 1955 F 69 From: Mary Car nd, MD PCP: Dr. Bird Ronquillo MD Status: REG ER Study: Gallbladder Date of Exam: 07/19/24 Exam# [id number] Ordering Dr: Colin Caba DO PROCEDURE: GALLBLADDER [...] NORMAL RIGHT UPPER QUADRANT ULTRASOUND. Reading Location: [facility] CC: Dr. Colin Caba DO; Dr. Bird Ronquillo MD Stone Engraver: Signed Normal [facility] Glomerular filtration rate ( GFR) estimationOrdered By: Colin Caba on 07-19-2024 GFR/1.73 sq M.predicted among non-blacks MDRD (S/P/Bld) [Vol rate/Area] 60 mL/min/{1.73_m2} >60 [facility] Comment on above: Non- GFR Calc Glucose measurementOrdered B y: Colin Caba on 07-19-2024 Glucose [Mass/Vol] 100 mg/dL 74-106 [facility] Comment on above: Fasting Glucose resu lt from 100 to 125 mg/dL suggests IMPAIRED HOMEOSTASIS per A.D.A. criteria. Hematocrit Auto (Bld) [Volum e fraction]Ordered By: Colin Caba on 07-19-2024 Hematocrit (Bld) [Volume fraction] 42.1 % 37-47 [facility] Hemoglobin measurementOrdere d By: Colin Caba on 07-19-2024 Hemoglobin (Bld) [Mass/Vol] 14.0 g/dL 12.0-15.0 [facility] Immature granulocytes/100 WB C Auto (Bld)Ordered By: Colin Caba on 07-19-2024 Immature granulocytes/100 WBC (Bld) 0.400 % 0.0-0.9 [facility] Comment on above: IG% - Immature Granu locytes (promyelocytes, myelocytes and metamyelocytes) > 1% indicates that a LEFT SHIFT is Present. Laboratory - Chemistry and C hemistry - challengeOrdered By: Colin Caba on 07-19-2024 AST [Catalytic activity/Vol] 25 U/L 15-37 [facility] [place] Lipaseon 07-19-2024 Lipase [Catalytic activity/Vol] 15 U/L Low 73-393 [facility] [place] Comment on above: Performed By: #### L 100.0100, L500.4050, L501.2450 #### [facility] [place] Laboratory [facility] [place], [address] Lipase measurementOrdered By : Colin Caba on 07-19-2024 Lipase [Catalytic activity/Vol] 15 U/L Low 73-393 [facility] [place] MCV (mean corpuscular volume ) determinationOrdered By: Colin Caba on 07-19-2024 MCV (RBC) [Entitic vol] 92.7 fL 81-99 [facility] [place] Mean corpuscular hemoglobin (MCH) determinationOrdered By: Colin Caba on 07-19-2024 MCH (RBC) [Entitic mass] 30.8 pg 27.0-32.0 [facility] [place] Mean corpuscular hemoglobin concentration (MCHC) determinationOrdered By: Colin Caba on 07-19-2024 MCHC (RBC) [Mass/Vol] 33.3 g/dL 32-36 [facility] Mean platelet volume determi nationOrdered By: Colin Caba on 07-19-2024 Platelet mean volume (Bld) [Entitic vol] 9.2 fL 6.2-12.0 [facility] [place] Monocyte percentageOrdered B y: Colin Caba on 07-19-2024 Monocytes/100 WBC (Bld) 4.2 % 0-10 [facility] [place] Neutrophil percentageOrdered By: oClin Caba on 07-19-2024 Neutrophils/100 WBC (Bld) 78.6 % High 47-70 [facility] [place] Nucleated red blood cell per centageOrdered By: Colin Caba on 07-19-2024 Nucleated RBC/100 WBC (Bld) [Ratio] 0 % 0-5 [facility] [place] Platelet countOrdered By: Vickie Caba on 07-19-2024 Platelets (Bld) [#/Vol] 188 10*3/uL 150-450 [facility] [place] Potassium measurementOrdered By: Colin Caba on 07-19-2024 Potassium [Moles/Vol] 3.6 mmol/L 3.5-5.1 [facility] RBC Auto (Bld) [#/Vol]Ordere d By: Coiln Caba on 07-19-2024 RBC (Bld) [#/Vol] 4.54 10*6/uL 4.2-5.4 [facility] Serum anion gap measurementO rdered By: Colin Caba on 07-19-2024 Anion gap [Moles/Vol] 7 mmol/L 5-15 [facility] Serum globulin measurementOr dered By: Colin Caba on 07-19-2024 Globulin (S) [Mass/Vol] 4.2 g/dL 2.2-4.2 [facility] [place] Serum or plasma alanine [place]aca otransferase (ALT) measurementOrdered By: Colin Caba on 07-19-2024 ALT [Catalytic activity/Vol] 37 U/L 13-56 [facility] [place] Serum or plasma albumin tino urement (mass/volume)Ordered By: Colin Pickering on 07-19-2024 Albumin [Mass/Vol] 3.5 g/dL 3.2-5.0 [facility] Serum or plasma alkaline coty sphatase measurementOrdered By: Colin Caba on 07-19-2024 ALP [Catalytic activity/Vol] 81 U/L 45-117 [facility] [place] Serum or plasma calcium tino urement (mass/volume)Ordered By: Colin Pickering on 07-19-2024 Calcium [Mass/Vol] 9.4 mg/dL 8.5-10.1 [facility] Serum or plasma creatinine m easurement (mass/volume)Ordered By: Colin Pickering on 07-19-2024 Creatinine [Mass/Vol] 0.99 mg/dL 0.55-1.02 [facility] Comment on above: The validity of the calculated GFR & GFRAA in patients over 70 years has not been determined. Clinical correlation is essential. Serum or plasma urea nitroge n measurement (mass/volume)Ordered By: Colin Caba on 07-19-2024 Urea nitrogen [Mass/Vol] 13 mg/dL 7-18 [facility] [place] Sodium levelOrdered By: Noble Caba on 07-19-2024 Sodium [Moles/Vol] 139 mmol/L 136-145 [facility] Total proteinOrdered By: Clem Caba on 07-19-2024 Protein [Mass/Vol] 7.7 g/dL 6.4-8.2 [facility] White blood cell (WBC) count Ordered By: Colin Caba on 07-19-2024 WBC (Bld) [#/Vol] 6.7 10*3/uL 4.4-11.0 [facility] CNOVon 07-11-2024 CNOV Office Visit (FAMPWS ) TEMITOPE HADDAD ([id number]) 1955 F T Date Time Provider Department 07/11/24 11:20 AM MORAIMA SOLANO FAMPWS During your visit today, we recorded the following information about you: Temperature Pulse Respiration Blood pressure 100.7 degrees 80/minute 16/minute 119/71 Moraima Solano, [employer] 07/11/2024 12:25 PM Signed Chief Complaint Patient [...] (moderate) (HCC) COPD (chronic obstructive pulmonary disease) ([facility]) Dr. Wallace Depression Dysuria Generalized anxiety disorder [...] week. Take (more content not included)... Normal [facility] CNTHERAPYon 07-02-2024 CNTHERAPY OT/PT/Speech Visit ( PTWS) TEMITOPE HADDAD ([id number]) 1955 F [facility] Date Time Provider Department 07/02/24 3:00 PM YAMILE CORDERO PTPIERRE Date Time Provider Department [place] 07/02/2024 3:00 PM [id number] CORDERO PTPIERRE [place] Reason for Visit: PT [...] once daily. Meds Comments as of 11/07/2022: [employer] Project Planner: Therapy (PT/OT/Speech/Resp) ID: [id number] 07/02/2024 2:36 PM Author: YAMILE CORDERO Signed by YAMILE CORDERO PT on 07/02/2024 at 2:36 PM Document text: Program_ID:[id number] Access Code: WPTEAKJY URL: [email or web address]/ Date: 07-02-2024 Prepared By: Robin Gaffney Program [...] - 2 sets - 15 reps Normal [facility] THERAPY NTon 07-02-2024 THERAPY NT HNO ID: [id number] Author: YAMILE CORDERO PT Service: ? Author Type: Physical Therapist Type: Therapy (PT/OT/Speech/Resp) Filed: 07/02/2024 14:36 Note Text: Program_ID:[id number] Access Code: WPTEAKJY URL: [email or web address]/ Date: 07-02-2024 Prepared By: Robin Gaffney Program [...] - 2 sets - 15 reps Normal [facility] CNTHERAPYon 2024 CNTHERAPY OT/PT/Speech Visit ( PTWS) TEMITOPE HADDAD ([id number]) 1955 F CHT Date Time Provider Department 06/25/24 3:00 PM YAMILE CORDERO PTPIERRE Date Time Provider Department [place] 2024 3:00 PM [id number]-LYAMILE CORDERO PTPIERRE [place] Reason for Visit: Physical [...] once daily. Meds Comments as of 11/07/2022: [employer] Project Planner: Therapy (PT/OT/Speech/Resp) ID: [id number] 2024 3:17 PM Author: YAMILE CORDERO Signed by YAMILE CORDERO PT on 2024 at 3:17 PM Document text: Program_ID:[id number] Access Code: WPTEAKJY URL: [email or web address] Date: 2024 Prepared By: Robin Gaffney Program [...] - 2 sets - 15 reps Normal [facility] THERAPY NTon 2024 THERAPY NT HNO ID: [id number] Author: YAMILE CORDERO PT Service: ? Author Type: Physical Therapist Type: Therapy (PT/OT/Speech/Resp) Filed: 2024 15:17 Note Text: Program_ID:[id number] Access Code: WPTEAKJY URL: [email or web address]/ Date: 2024 Prepared By: Robin Gaffney Program [...] - 2 sets - 15 reps Normal [facility] CNTHERAPYon 06-18-2024 CNTHERAPY OT/PT/Speech Visit ( PTWS) TEMITOPE HADDAD ([id number]) 1955 F T Date Time Provider Department 06/18/24 3:00 PM YAMILE CORDERO PTWS Date Time Provider Department Center 06/18/2024 3:00 PM [id number] CORDERO PTWS Domingo Dug[place] Reason for Visit: [...] once daily. Meds Comments as of 11/07/2022: Data [employer] Project Planner: Addendum Therapy (PT/OT/Speech/Resp) ID: [id number] 06/18/2024 2:59 PM Author: YAMILE CORDERO Signed by YAMILE CORDERO PT on 06/18/2024 at 2:59 PM * * * This document replaces document [id number] * * * Document text: Program_ID:[id number] Access Code: WPTEAKJY URL: [email or web address] Date: 06-18-2024 Prepared By: Robin Gaffney Program [...] - 3 sets - 8 reps Normal [facility] THERAPY NTon 06-18-2024 THERAPY NT HNO ID: [id number] Author: YAMILE CORDERO PT Service: ? Author Type: Physical Therapist Type: Therapy (PT/OT/Speech/Resp) Filed: 06/18/2024 15:15 Note Text: Program_ID:[id number] Access Code: WPTEAKJY URL: [email or web address]/ Date: 06-18-2024 Prepared By: Robin Gaffney Program [...] - 3 sets - 8 reps Normal [facility] CNTHERAPYon 06-11-2024 CNTHERAPY OT/PT/Speech Visit ( PTWS) TEMITOPE HADDAD ([id number]) 1955 F CHT Date Time Provider Department 06/11/24 3:00 PM YAMILE CORDERO PTWS Date Time Provider Department Center 06/11/2024 3:00 PM [id number] CORDERO PTWS Domingo Duggan Reason for Visit: [...] daily. Meds Comments as of 11/07/2022: Normal [facility] CNTHERAPYon 06-05-2024 CNTHERAPY OT/PT/Speech Visit ( PTWS) TEMITOPE HADDAD ([id number]) 1955 F CHT Date Time Provider Department 06/05/24 3:00 PM YAMILE CORDERO PTWS Date Time Provider Department [place] 06/05/2024 3:00 PM [id number]-IYAMILE CORDERO [place] Reason for Visit: PT Re-eval [891] [...] once daily. Meds Comments as of 11/07/2022: Data Processing [employer] Project Planner: Addendum Therapy (PT/OT/Speech/Resp) ID: [id number] 06/05/2024 3:13 PM Author: YAMILE CORDERO Signed by YAMILE CORDERO PT on 06/05/2024 at 3:13 PM * * * This document replaces document [id number] * * * Document text: Program_ID:[id number] Access Code: WPTEAKJY URL: [email or web address] Date: 06-05-2024 Prepared By: Robin Gaffney Program [...] - 3 sets - 8 reps Normal [facility] THERAPY NTon 06-05-2024 THERAPY NT HNO ID: [id number] Author: YAMILE CORDERO PT Service: ? Author Type: Physical Therapist Type: Therapy (PT/OT/Speech/Resp) Filed: 06/05/2024 15:13 Note Text: Program_ID:[id number] Access Code: WPTEAKJY URL: [email or web address]/ Date: 06-05-2024 Prepared By: Robin Gaffney Program [...] - 3 sets - 8 reps Normal [facility] CNOVon 05-20-2024 CNOV Office Visit (FAMPWS ) HADDADTEMITOPE TADEO ([id number]) 1955 [facility] Date Time Provider Department 05/20/24 12:20 [...] Chronic kidney disease (CKD), stage III (moderate) ([facility]) COPD (chronic obstructive pulmonary disease) ([facility]) Dr. Wallace Depression Dysuria Generalized anxiety disorder [...] 1 table (more content not included)... Normal [facility] [id number] 05-16-2024 [id number] O ID: [id number] Author: ROBIN GAFFNEY PT, DPT Service: ? Author Type: Physical Therapist Type: [id number] Filed: 05/16/2024 16:16 Note Text: [facility] Physical Therapy Plan of Care Certification Patient Name: Temitope Haddad : 1955 [facility] #: [id number] Date: 05/16/2024 To: Tatiana Ronquillo,* From Therapist: Robin Gaffney PT, DPT RE: Patient Certification/ Recertification Your review, approval and electronic signature are required in order to comply with Payor: [facility] / Plan: [facility] DUAL COMPLETE HMO POS SNP / [...] of impairments . Patient transfer care to [place] for the following reasons: Closer to home as does not appear to have neuro needs. The patient will benefit from skilled therapy services to meet the goals established for this plan of care as noted below. Goals for Episode of Care: established 05/16/24 [place] in home exercise program. Patient will decrease [...] Planned: 8 Planned Treatment Interventions: Therapeutic exercise (57805), Neuromuscular re-education (24161), Manual therapy (81922), Therapeutic activities (15270), Self-skilled nursing management (67990), Gait Training (38357), Patient/Family/Caregiver Education PLAN FOR NEXT VISIT: Transfer of care [place]. R LE strengthening and flexibility Patient demonstrates good understanding of plan of care and treatment. The above goals and plan of care were discussed and agreed upon by patient/family. For further details regarding this patient refer to the Physical Therapy electronically documented visit dated 05/16/2024. Provider Attestation I have reviewed the treatment plan for Temitope Haddad, [facility]# [id number] for the period of 05/16/24 -- 07/15/24, established on 05/16/2024. Signature certifies the need for therapy services. [facility] CNTHERAPYon 05-16-2024 CNTHERAPY OT/PT/Speech Visit ( PTMDRG) HADDADTEMITOPE TADEO ([id number]) 1955 F CHT Date Time Provider Department 05/16/24 2:45 PM ROBIN GAFFNEY Date Time Provider Department [place] 05/16/2024 2:45 PM [id number][facility] for Visit: PT Eval [747] Patient [...] as needed for shortness of breath - MarkITxZTRI AEROSPHERE 160-9-4.8 mcg/actuation HFA aerosol inhaler Inhale 2 Puffs as instructed twice daily. - levocetirizine 5 mg tablet Take 5 mg by mouth once daily. Meds Comments as of 11/07/2022: [employer] Project Planner: Therapy (PT/OT/Speech/Resp) ID: [id number] 05/16/2024 3:21 PM Author: ROBIN GAFFNEY Signed by ROBIN GAFFNEY PT, DPT on 05/16/2024 at 3:21 PM Document text: Program_ID:[id number] Access Code: WPTEAKJY URL: [email or web address] Date: 05-16-2024 Prepared By: Robin Gaffney Program [...] weekly - 1 sets - 3 reps [facility] THERAPY NTon 05-16-2024 THERAPY NT HNO ID: [id number] Author: ROBIN GAFFNEY, PT, DPT Service: Physical Therapy Author Type: Physical Therapist Type: Therapy (PT/OT/Speech/Resp) Filed: 05/16/2024 15:21 Note Text: Program_ID:[id number] Access Code: WPTEAKJY URL: [email or web address] Date: 05-16-2024 Prepared By: Robin Gaffney Program [...] weekly - 1 sets - 3 reps [facility] CNPNon 05-02-2024 CNPN Telephone (FAMPWS) TEMITOPE HADDAD ([id number]) 1955 F CHT Date Time Provider Department [...] Encounter Status:Closed by KAVITHA KIM on 05/02/24 [facility] 05-01-2024 [facility] Telephone (FAMWS) TEMITOPE HADDAD ([id number]) 1955 F T Date Time Provider Department [...] 0 THYROID STIMULATING HORMONE [SQTSH] Order #: [id number] FUTURE Prescriptions as of 05/01/2024 - levothyroxine [...] Lung nodules (more content not included)... Normal [facility] CNOVon 04-29-2024 CNOV Office Visit (FAMPWS ) TEMITOPE HADDAD ([id number]) 1955 F T Date Time Provider Department [...] Chronic kidney disease (CKD), stage III (moderate) ([facility]) COPD (chronic obstructive pulmonary disease) ([facility]) Dr. Wallace Depression Dysuria Generalized anxiety disorder [...] Left leg, managed by plastic surgery Stroke ([facility]) x 4 Suprapubic pain Vitamin D deficiency [...] cholesterol. cholecalci (more content not included)... Normal [facility] Comprehensive metabolic 2000 panelon 04-29-2024 Albumin [Mass/Vol] 4.5 g/dL Normal 3.9-4.9 [facility] Comment on above: Order Comment: Speci men Type: BLOOD SPECIMENOrdering Facility: [facility] Address: [address] [place] [address] Performed By: #### L IP, 0935-3, ####[facility] LABCLIA [id number] [address] [address] [place] ALP [Catalytic activity/Vol] 76 U/L Normal 34-123 [facility] Comment on above: Order Comment: Speci men Type: BLOOD SPECIMENOrdering Facility: [facility] Address: [address] [place] [address] Performed By: #### L IPNF, 3, ####[facility] LABCLIA [id number] [place] [id number] [place] ALT [Catalytic activity/Vol] 41 U/L High 7-38 [facility] Comment on above: Order Comment: Speci men Type: BLOOD SPECIMENOrdering Facility: [facility] Address: [address] [place] [address] Performed By: #### L IPNF, 3015-07, ####[facility] LABCLIA [id number] [place] [id number] [place] Anion gap [Moles/Vol] 11 mmol/L Normal 8-15 [facility] Comment on above: Order Comment: Speci men Type: BLOOD SPECIMENOrdering Facility: [facility] Address: [address] [place] [address] Performed By: #### L IPNF, 3, ####[facility] LABCLIA [id number] [address] [address] [place] AST [Catalytic activity/Vol] 33 U/L Normal 13-35 [facility] Comment on above: Order Comment: Speci men Type: BLOOD SPECIMENOrdering Facility: [facility] Address: [address] [place] [address] Performed By: #### L IPNF, 3, 33054-1 ####[facility] LABCLIA [id number] [address] [address] [place] Bilirubin [Mass/Vol] 0.4 mg/dL Normal 0.2-1.3 [facility] Comment on above: Order Comment: Speci men Type: BLOOD SPECIMENOrdering Facility: [facility] Address: [address] [place] [address] Performed By: #### L IPNF, 3015-3, 73841-8 ####[facility] LABCLIA [id number] [place] [address] [place] Calcium [Mass/Vol] 9.3 mg/dL Normal 8.5-10.2 [facility] Comment on above: Order Comment: Speci men Type: BLOOD SPECIMENOrdering Facility: [facility] Address: [address] [place] [address] Performed By: #### L IPNF, 3, ####[facility] LABCLIA [id number] [place] [address] [place] Chloride [Moles/Vol] 104 mmol/L Normal 98-107 [facility] Comment on above: Order Comment: Speci men Type: BLOOD SPECIMENOrdering Facility: [facility] Address: [address] [place] [address] Performed By: #### L IPNF, 3, ####[facility] LABCLIA [id number] [place] [address] [place] CO2 [Moles/Vol] 26 mmol/L Normal 22-30 [facility] Comment on above: Order Comment: Speci men Type: BLOOD SPECIMENOrdering Facility: [facility] Address: [address] [place] [address] Performed By: #### L IPNF, 3, 94049-7 ####[facility] LABCLIA [id number] [place] [address] [place] Creatinine [Mass/Vol] 0.94 mg/dL Normal 0.58-0.96 [facility] Comment on above: Order Comment: Awa ross Type: BLOOD SPECIMENOrdering Facility: [facility] Address: [address] [place] [address] Performed By: #### L ZANDER, 3016-3, 43188-1 ####[facility] LABCLIA [id number] [place] [address] [place] Creatinine and Glomerular filtration rate.predicted panel (S/P/Bld) 67 mL/min/1.73m??? Normal >=60 [facility] Comment on above: Order Comment: Awa ross Type: BLOOD SPECIMENOrdering Facility: [facility] Address: [address] [place] [address] Result Comment: [place] mated Glomerular Filtration Rate [...] GFR. Performed By: #### L ZANDER, 3016-3, 17581-4 ####[facility] LABCLIA [id number] [place] [address] [place] Glucose [Mass/Vol] 99 mg/dL Normal 74-99 [facility] Comment on above: Order Comment: Awa ross Type: BLOOD SPECIMENOrdering Facility: [facility] Address: [address] [place] [address] Result Comment: The [place] Diabetes Association (ADA) provides guidance for cutoff [...] Standards of Medical Care in Diabetes 2016, [place] [employer]. Diabetes Care. 2016.39(Suppl 1). Performed By: #### L ZANDER, 3015-07, ####[facility] LABCLIA [id number] [address] [address] [place] Potassium [Moles/Vol] 4.2 mmol/L Normal 3.7-5.1 [facility] Comment on above: Order Comment: Speci men Type: BLOOD SPECIMENOrdering Facility: [facility] Address: [address] [place] [address] Performed By: #### L ZANDER, 3015-07, ####[facility] LABCLIA [id number] [place] [address] [place] Protein [Mass/Vol] 7.0 g/dL Normal 6.3-8.0 [facility] Comment on above: Order Comment: Speci men Type: BLOOD SPECIMENOrdering Facility: [facility] Address: [address] [place] [address] Performed By: #### L ZANDER, 3015-07, ####[facility] LABCLIA [id number] [place] [address] [place] Sodium [Moles/Vol] 141 mmol/L Normal 136-144 [facility] Comment on above: Order Comment: Speci men Type: BLOOD SPECIMENOrdering Facility: [facility] Address: [address] [place] [id number] Performed By: #### L ZANDER, 3015-07, ####[facility] LABCLIA [id number] [place] [id number] [place] Urea nitrogen [Mass/Vol] 15 mg/dL Normal 7-21 [facility] Comment on above: Order Comment: Speci men Type: BLOOD SPECIMENOrdering Facility: [facility] Address: [address] [place] [address] Performed By: #### L IPELI, 3, ####[facility] LABCLIA [id number] [place] [address] [place] LIPID PANEL, NONFASTINGon Cholesterol [Mass/Vol] 164 mg/dL Normal <200 [facility] Comment on above: Order Comment: Speci men Type: BLOOD SPECIMENOrdering Facility: [facility] Address: [address] [place] [address] Result Comment: <200 mg/dL, Desirable 200-239 mg/dL, Borderline high >239 mg/dL, High Performed By: #### L ZANDER, 3, ####[facility] LABCLIA [id number] [place] [address] [place] HDL CHOLESTEROL, NF 66 mg/dL Normal >39 [facility] Comment on above: Order Comment: Speci men Type: BLOOD SPECIMENOrdering Facility: [facility] Address: [address] [place] [address] Result Comment: 40-5 9 mg/dL, Acceptable >59 mg/dL, High: Negative risk factor for coronary heart disease <40 mg/dL, Low: Positive risk factor for coronary heart disease Performed By: #### L ZANDER, 3, ####[facility] LABCLIA [id number] [place] [address] [place] LDL CHOLESTEROL, NF 85 mg/dL Normal <100 [facility] Comment on above: Order Comment: Speci men Type: BLOOD SPECIMENOrdering Facility: [facility] Address: [address] [place] [address] Result Comment: <100 mg/dL, Optimal 100-129 mg/dL, Near optimal/above optimal 130-159 mg/dL, Borderline high 160-189 mg/dL, High >189 mg/dL, Very high Secondary prevention optimal LDL Cholesterol levels are recommended to be < 70 mg/dL Performed By: #### L IPNF, 3016-3, 01542-1 ####[facility] LABCLIA [id number] [place] [address] [place] LDL/HDL RATIO, NF 1.29 mg/dL Normal <2.54 [facility] Comment on above: Order Comment: Speci men Type: BLOOD SPECIMENOrdering Facility: [facility] Address: [address] [place] [address] Result Comment: Refe rence: 1. National Cholesterol Education Program ATP III Guideline At-A-Glance Quick Desk Reference: National Heart, Lung, and Blood [place]. National Institutes of Health. 2001: NIH Publication No. 01-3305. 2. An International Atherosclerosis Society position paper: global recommendations for the management of dyslipidemia: executive summary, Atherosclerosis. 2014: 232(2):410-413. Performed By: #### L ZANDER, 3015-3, ####[facility] LABCLIA [id number] [place] [address] [place] NON HDL CHOL, NF 98 mg/dL Normal <130 [facility] Comment on above: Order Comment: Speci men Type: BLOOD SPECIMENOrdering Facility: [facility] Address: [address] [place] [address] Result Comment: <130 mg/dL, Optimal 130-159 mg/dL, Near optimal/above optimal 160-189 mg/dL, Borderline high 190-219 mg/dL, High >219 mg/dL, Very high Secondary prevention optimal non HDL Cholesterol levels are recommended to be <100 mg/dL Performed By: #### L IPNF, 3015-3, 59772-8 ####[facility] LABCLIA [id number] [address] [place] T CHOL/HDL RATIO NF 2.48 mg/dL Normal <5.10 [facility] Comment on above: Order Comment: Speci men Type: BLOOD SPECIMENOrdering Facility: [facility] Address: [address] [place] [address] Performed By: #### L ZANDER, 6-3, 74042-2 ####[facility] LABCLIA [id number] [place] [address] [place] TRIGLYCERIDES, NF 64 mg/dL Normal <150 [facility] Comment on above: Order Comment: Speci men Type: BLOOD SPECIMENOrdering Facility: [facility] Address: [address] [place] [address] Result Comment: <150 mg/dL, Normal 150-199 mg/dL, Borderline high 200-499 mg/dL, High >499 mg/dL, Very high Performed By: #### L IPNF, 6-3, 19941-6 ####[facility] LABCLIA [id number] [address] [place] VLDL CHOLESTEROL, NF 13 mg/dL Normal <30 [facility] Comment on above: Order Comment: Speci men Type: BLOOD SPECIMENOrdering Facility: [facility] Address: [address] [place] [address] Performed By: #### L IPNF, 3016-3, 13430-0 ####[facility] LABCLIA [id number] [place] [address] [place] TSH SerPl-aCncon 04-29-2024 TSH Qn 4.500 m[IU]/L High 0.270-4.20 0 [facility] Comment on above: Order Comment: Speci men Type: BLOOD SPECIMENOrdering Facility: [facility] Address: [address] [place] [address] Performed By: #### L IPNF, 3016-3, 85947-6 ####[facility] LABCLIA [id number] [place] [address] [place] XR KNEE 4V [...] joint effusion. IMPRESSION: No acute bony abnormality. Stone Engraver: PSCB Transcribe Date/Time: May 01 2024 7:56P Dictated by : STUART HENDRIX MD This examination was interpreted and the report reviewed and electronically signed by: STUART HENDRIX MD on May 01 2024 7:56PM EST [id number] Normal [facility] CNPNon 04-19-2024 CNPN Telephone (ISABELLEWS) TEMITOPE HADDAD ([id number]) 1955 F [facility] Date Time Provider Department 04/19/24 SABINE CROWLEY During your visit today, we recorded the following information about you: Theresa Sawant RDMS 04/19/2024 1:40 PM Signed May we please have ultrasound orders placed for mass RLQ. US Soft tissue Abdomen ([id number]) Pt. Is currently waiting in radiology. Thank [...] abdominal mass [R19.03] Order(s):US SOFT TISSUE ABDOMEN [[id number]] Order #: [id number] FUTURE Prescriptions as of 04/19/2024 - iv [...] disorder [F41 (more content not included)... Normal [facility] US SOFT TISSUE ABDOMENon US SOFT TISSUE [...] seen at the area of palpable abnormality. Stone Engraver: GASPER Transcribe Date/Time: Apr 21 2024 9:54A Dictated by : AMBER OLEARY MD This examination was interpreted and the report reviewed and electronically signed by: AMBER OLEARY MD on Apr 21 2024 9:55AM EST [id number] Normal [facility] CNOVon 04-18-2024 CNOV Office Visit (FAMPWS ) TEMITOPE HADDAD ([id number]) 1955 F CHT Date Time Provider Department [...] Chronic kidney disease (CKD), stage III (moderate) ([facility]) COPD (chronic obstructive pulmonary disease) ([facility]) Dr. Wallace Depression Dysuria Generalized anxiety disorder [...] Left leg, managed by plastic surgery Stroke ([facility]) x 4 Suprapubic pain Vitamin D deficiency [...] hydrobromide (CELEXA) (more content not included)... Normal [facility] CNPNon 04-18-2024 CNPN Telephone (FAMPWS) TEMITOPE HADDAD ([id number]) 1955 F T Date Time Provider Department 04/18/24 [facility] During your visit today, we recorded the following information about you: Sabine Crowley APRN.[employer] 04/18/2024 2:48 PM Signed Please let patient [...] mass [R19.03] Order(s):US EXTREMITY MASS/FLUID COLLECTION RIGHT [[id number]] Order #: [id number] FUTURE Prescriptions as of 05/10/2024 - levothyroxine [...] as needed for shortness of breath - [employer] AEROSPHERE 160-9-4.8 mcg/actuation HFA aerosol inhaler Inhale [...] Status:Closed by SABINE CROWLEY on 05/10/24 Normal [facility] CT ABD/PEL W IVCONon 11-21-[address] ABD/PEL W IVCON * * *Final Report* * * DATE OF EXAM: Apr 18 2024 1:22PM [facility] 0530 - CT ABD/PEL W IVCON / [...] Sigmoid colon diverticulosis. No evidence of diverticulitis. Stone Engraver: GASPER Transcribe Date/Time: Apr 18 2024 1:47P Dictated by : ZEYNEP LEO MD This examination was interpreted and the report reviewed and electronically signed by: ZEYNEP LEO MD on Apr 18 2024 1:55PM EST [id number] Normal [facility] CT Abdomen and Pelvis W cont rast Josh 04-18-2024 IMPRESSION: No acute findings in the abdomen and pelvis. Sigmoid colon diverticulosis. No evidence of diverticulitis. Stone Engraver: PSCReva Transcribe Date/Time: Apr 18 2024 1:47P Dictated by : ZEYNEP LEO MD This examination was interpreted and the report reviewed and electronically signed by: ZEYNEP LEO MD on Apr 18 2024 1:55PM EST [employer] RADIOLOGY SYNGO * * *Final Report* * * DATE OF EXAM: Apr 18 2024 1:22PM [facility] 0530 - CT ABD/PEL W IVCON / [...] are unremarkable. Localizer images: No additional findings. [employer] [facility]OLOGY [facility] * * *Final Report* * * DATE OF EXAM: Apr 18 2024 1:22PM [facility] 0530 - CT ABD/PEL W IVCON / [...] Sigmoid colon diverticulosis. No evidence of diverticulitis. Stone Engraver: PSCB Transcribe Date/Time: Apr 18 2024 1:47P Dictated by : ZEYNEP LEO MD This examination was interpreted and the report reviewed and electronically signed by: ZEYNEP LEO MD on Apr 18 2024 1:55PM EST [facility] Radiology Study observation (narrative) [facility] CT Abdomen and Pelvis W cont rast IVOrdered By: Ccf Provider on 04-18-2024 [facility] CNPNon 04-17-2024 CNPN Telephone (FAMPWS) TEMITOPE HADDAD ([id number]) 1955 F T Date Time Provider Department 04/17/24 TATIANA RONQUILLO [facility] During your visit today, we recorded the [...] triad today or tomorrow. Scheduled appt with Conditioner Tender for tomorrow. Allergies As of Date: 04/17/2024 [...] Status:Closed by Sumaya GRUBBS on 04/17/24 Normal [facility] Pulmonary Visit Reporton Pulmonary Visit Report [facility] [address] [place] [address] OFFICE VISIT Date of Service: 03/07/24 MR#: [id number] Acct: [id number] Name: TEMITOPE HADDAD Rep #: [id number] : 1955 Provider: CARLO Fernandez Age/Sex: 68/F [place] [facility] Status: Signed Assessment and Plan Assessment and [...] included)... Normal [facility] US DVT LOWER RTon 01-23-2024 US DVT [...] imaged segments of the right lower extremity. Stone Engraver: [facility] Transcribe Date/Time: Jan 23 2024 6:07P Dictated by : ZEYNEP LEO MD This examination was interpreted and the report reviewed and electronically signed by: ZEYNEP LEO MD on Jan 23 2024 6:08PM EST [id number] Normal [facility] US Lower extremity vein - [facility] 01-23-2024 IMPRESSION: Negative study for proximal DVT in the right lower extremity. Negative study for calf DVT in the right lower extremity. Negative study for superficial thrombophlebitis in the imaged segments of the right lower extremity. Stone Engraver: [facility] Transcribe Date/Time: Jan 23 2024 6:07P Dictated [...] spontaneous respirophasic flow. Normal response to augmentation. [employer] RADIOLOGY SYNGO Provider, [facility] - 01/23/2024 * * *Final Report* [...] imaged segments of the right lower extremity. Stone Engraver: GASPER Transcribe Date/Time: Jan 23 2024 6:07P Dictated by : ZEYNEP LEO MD This examination was interpreted and the report reviewed and electronically signed by: ZEYNEP LEO MD on Jan 23 2024 6:08PM EST [facility] Radiology Study observation (narrative) [facility] US Lower extremity vein - ri ghtOrdered By: Ccf Provider on 01-23-2024 [facility] ED NOTEon 01-22-2024 ED NOTE HNO ID: [id number] Author: ANASTASIA GRAHAM, JUAN Service: Emergency Medicine [...] with ease to lobby, no distress. Normal [facility] ED NOTE HNO ID: [id number] Author: SABINE THOMPSON, JUAN Service: Emergency Medicine Author Type: Registered Nurse Type: ED Notes Filed: 01/22/2024 20:16 Note Text: Right ankle pain, swelling. No specific injury. States she woke up with the pain this morning and was painful to walk Normal [facility] ED PROV NOTEon 01-22-2024 ED PROV NOTE HNO ID: [id number] Author: YAMILE CURRY DO Service: Emergency Medicine [...] Chronic kidney disease (CKD), stage III (moderate) ([facility]) No date: COPD (chronic obstructive pulmonary disease) ([facility]) Comment: Dr. Wallace No date: Depression No [...] managed by plastic surgery No date: Stroke ([facility]) Comment: x 4 No date: Suprapubic pain [...] for ch (more content not included)... Normal [facility] XR ANKLE 3V AP/LAT/OBL RTon 01-22-2024 [...] finding at the imaged right lower extremity. Stone Engraver: GASPER Transcribe Date/Time: Jan 22 2024 9:33P Dictated by : GAVINO SOSA MD This examination was interpreted and the report reviewed and electronically signed by: GAVINO SOSA MD on Jan 22 2024 9:34PM EST [id number] Normal [facility] XR FOOT 3V AP/LAT/OBL RTon 0 [...] finding at the imaged right lower extremity. Stone Engraver: [employer] Transcribe Date/Time: Jan 22 2024 9:33P Dictated by : GAVINO SOSA MD This examination was interpreted and the report reviewed and electronically signed by: GAVINO SOSA MD on Jan 22 2024 9:34PM EST [id number] Normal [facility] XR TIBIA FIBULA 2V AP/LAT RT [...] finding at the imaged right lower extremity. Stone Engraver: PSCB Transcribe Date/Time: Jan 22 2024 9:33P Dictated by : GAVINO SOSA MD This examination was interpreted and the report reviewed and electronically signed by: GAVINO SOSA MD on Jan 22 2024 9:34PM EST [id number] Normal [facility] Comprehensive metabolic 2000 panelon 10-26-2023 Albumin [Mass/Vol] 4.2 g/dL 3.9 - 4.9 g/dL [facility] ALP [Catalytic activity/Vol] 68 U/L 34 - 123 U/L [facility] ALT [Catalytic activity/Vol] 28 U/L 7 - 38 U/L [facility] Anion gap [Moles/Vol] 12 mmol/L 9 - 18 mmol/L [facility] AST [Catalytic activity/Vol] 28 U/L 13 - 35 U/L [facility] Bilirubin [Mass/Vol] 0.4 mg/dL 0.2 - 1 .3 mg/dL [facility] Calcium [Mass/Vol] 9.9 mg/dL 8.5 - 10. 2 mg/dL [facility] Chloride [Moles/Vol] 105 mmol/L 97 - 10 5 mmol/L [facility] CO2 [Moles/Vol] 24 mmol/L 22 - 30 mmol/L [facility] Creatinine [Mass/Vol] 1.07 mg/dL High 0.58 - 0.96 mg/dL [facility] GFR/1.73 sq M.predicted among non-blacks MDRD (S/P/Bld) [Vol rate/Area] 57 mL/min/{1.73_m2} Low - PINF [facility] Comment on above: Estimated Glomerular Filtration Rate [...] [Mass/Vol] 92 mg/dL 74 - 99 mg/dL [facility] Comment on above: The [place] Diab[employer] s Association (ADA) provides guidance for [...] Standards of Medical Care in Diabetes 2016, [place] [employer]. Diabetes Care. 2016.39(Suppl 1). Interpretation and review of laboratory results Abnormal [facility] Potassium [Moles/Vol] 4.5 mmol/L 3.7 - 5.1 mmol/L [facility] Protein [Mass/Vol] 7.0 g/dL 6.3 - 8.0 g/dL [facility] Sodium [Moles/Vol] 141 mmol/L 136 - 144 mmol/L [facility] Urea nitrogen [Mass/Vol] 17 mg/dL 7 - 21 mg/dL [facility] ANES POSTPROC EVALon 024 ANES POSTPROC EVAL HNO ID: [id number] Author: PETRA CABALLERO DO Service: Anesthesiology Author Type: Anesthesiologist Type: Anesthesia Postprocedure Evaluation Filed: 09/04/2023 17:47 Note Text: POST ANESTHESIA EVALUATION NOTE : 1955 Procedure Summary Date: 09/04/23 Room / Location: [facility] Anesthesia Start: 1317 Anesthesia Stop: 1349 Procedures: COLONOSCOPY DIAGNOSTIC EGD DIAGNOSTIC Diagnosis: Screening for colon cancer History of colonic polyps Epigastric pain Blood in stool (Rectal bleeding) (Epigastric abdominal pain) Scheduled Providers: Isidro Lipscomb MD; Jose Dooley APRN.NEONATAL SOCIAL WORKER; Justo Haley MD Responsible Provider: Gio Tenorio [...] September 04, 2023 TIME: 5:47 PM CSN: [id number] Normal [facility] ANES PRE-OPon 09-04-2023 ANES PRE-OP HNO ID: [id number] Author: GIO TENORIO MD Service: Anesthesiology Author Type: Anesthesiologist Type: Anesthesia Preprocedure Evaluation Filed: 09/04/2023 13:10 Note Text: ANESTHESIOLOGY DAY OF SURGERY NOTE : 1955 Procedure Information Date/Time: 09/04/23 1400 Scheduled providers: Isidro Lipscomb MD; Jose Dooley APRN.NEONATAL SOCIAL WORKER; Justo Haley MD Procedures: COLONOSCOPY DIAGNOSTIC EGD DIAGNOSTIC Location: [facility] Estimated body mass index is [...] September 04, 2023 TIME: 1:10 PM CSN: [id number] Normal [facility] Colonoscopyon 09-04-2023 Colonoscopy [facility] Gastro[facility]oscopy Patient Name: Temitope Haddad Procedure Date: 09/04/2023 1:11 PM Date of : 1955 Admit Type: Outpatient Age: 68 Room: [facility] Gender: Female Note Status: Finalized Attending MD: Isidro Lipscomb MD, [id number] Procedure: Colonoscopy Indications: Rectal bleeding Providers: Isidro [...] by the physician, the nurse and the fraternity house cook in the procedure room. Mental Status Examination: [...] prior dose. Procedure Code(s): --- Professional --- 23098, Colonoscopy, flexible; diagnostic, including collection of specimen(s) by brushing or washing, when performed (separate procedure) CPT copyright 2020 [place] [employer]. All rights reserved. The codes documented in this report are preliminary and upon director data review may be revised to meet current compliance requirements. Attending Participation: I personally performed the entire procedure. Scope In: 1:29:47 PM Scope Out: 1:43:25 PM MD Isidro Rosario MD 09/04/2023 1:57:16 PM This report has been signed electronically by Isidro Lipscomb MD Number of Addenda: 0 Note Initiated On: 09/04/2023 1:11 PM Estimated Blood Loss: Estimated blood loss: none. [facility] EGD Study observation Narrat iveon 09-04-2023 [facility] Flexible sigmoidoscopy study on 09-04-2023 [facility] HISTORY PHYSICALon HISTORY PHYSICAL HNO ID: [id number] Author: ISIDRO LIPSCOMB MD Service: General Surgery [...] Clots No (more content not included)... Normal [facility] SURGICAL PATHOLOGYon CASE REPORT Normal [facility] Comment on above: Order Comment: Speci men Type: TISSUE SPECIMEN [facility] Address: [address] [place] [address] Result Comment: Surg [facility] Pathology Report Case: [id number] Authorizing Provider: Isidro Lipscomb MD Collected: 09/04/2023 01:24 PM Ordering Location: [facility] Received: 09/04/2023 03:07 PM Pathologist: Wild Segura MD Specimens: A) - Stomach, Biopsy, R/O H. Pylori B) - Esophagus, Distal, Biopsy, R/O Faust's Performed By: #### S #### [facility] CLIA [id number] [address] [place] [address] [place] FINAL DIAGNOSIS Normal [facility] Comment on above: Order Comment: Speci men Type: TISSUE SPECIMEN [facility] Address: [address] [place] [address] Result Comment: A. S tomach, biopsy: -Gastric antral mucosa with no diagnostic abnormality. -No morphologic evidence of Helicobacter pylori. B. Esophagus, distal, biopsy: -Squamous epithelium with mild reactive change and parakeratosis. -No glandular epithelium present. Performed By: #### S #### [facility] CLIA [id number] [address] [place] [address] [place] FINAL PERFORMING LAB Normal [facility] Comment on above: Order Comment: Speci men Type: TISSUE SPECIMEN [facility] Address: [address] [place] [address] Result Comment: Diag nostic interpretation performed at [facility], [address] [place] [address] CLIA# [id number] Director Corporate Sales: Keegan Kirkpatrick M.D. Performed By: #### S #### [facility] CLIA [id number] [address] [place] [address] [place] GROSS DESCRIPTION [facility] Comment on above: Order Comment: Speci men Type: TISSUE SPECIMEN [facility] Address: [address] [place] [address] Result Comment: A. S tomach, Biopsy Received in formalin is one piece of otero, soft tissue measuring 0.3 x 0.2 x 0.2 cm. Totally submitted in one cassette. B. Esophagus, Distal, Biopsy Received in formalin are two pieces of otero-white, soft tissue aggregating to 0.3 x 0.1 x 0.2 cm. Totally submitted in one cassette. Gross examination performed at [facility], [address] [place] [address] September 04, 2023 8:54 PM Performed By: #### S #### [facility] CLIA [id number] [address] [place] [address] [place] Upper GI endoscopyon 024 Upper GI endoscopy [facility] Gastrointestinal Endoscopy Patient Name: Temitope Haddad Procedure Date: 09/04/2023 1:12 PM Date of : 1955 Admit Type: Outpatient Age: 68 Room: [facility] Gender: Female Note Status: Finalized Attending MD: Isidro Lipscomb MD, [id number] Procedure: Upper GI endoscopy Indications: Epigastric abdominal [...] by the physician, the nurse and the fraternity house cook in the procedure room. Respiratory Examination: clear [...] were esophageal mucosal changes consistent with short-segment Faust's esophagus. These changes involved the mucosa extending [...] PO daily. Procedure Code(s): --- Professional --- 77195, Esophagogastroduodenoscopy, flexible, transoral; with biopsy, single or multiple CPT copyright 2020 [place] [employer]. All rights reserved. The codes documented in this report are preliminary and upon director data review may be revised to meet current [...] Blood Loss: Estimated blood loss: none. Normal [facility] Absolute lymphocyte countOrd ered By: Eduardo Ely on 08-14-2023 Lymphocytes Auto (Unsp spec) [#/Vol] 1.13 10*3/uL 0.83-4.51 [facility] Automated lymphocyte count a s percentage of total leukocytesOrdered By: Eduardo Ely on 08-14-2023 Lymphocytes/100 WBC Auto (Unsp spec) 22.6 % 19-41 [facility] Basophil percentageOrdered B y: Eduardo Ely on 08-14-2023 Basophil percentage 5-10 SEEN /hpf 0-5 [facility] Basophils/100 WBC (Bld) 1.0 % 0-1 [facility] Eosinophils/100 WBC (Bld) 4.4 % 0-5 [facility] Hemoglobin (Bld) [Mass/Vol] 13.3 g/dL 12.0-15.0 [facility] Monocytes/100 WBC (Bld) 6.8 % 0-10 [facility] Neutrophils (Bld) [#/Vol] 3.2 10*3/uL 2.0-7.7 [facility] Neutrophils/100 WBC (Bld) 64.8 % 47-70 [facility] WBC (Bld) [#/Vol] 5.0 10*3/uL 4.4-11.0 [facility] Chloride [Moles/Vol] 109 mmol/L 98-107 [facility] Glucose [Mass/Vol] 95 mg/dL 74-106 [facility] Potassium [Moles/Vol] 4.3 mmol/L 3.5-5.1 [facility] Comment on above: Slight Hemolysis, Re sult may be falsely increased. Sodium [Moles/Vol] 140 mmol/L 136-145 [facility] Bilirubin Test strip Ql (U)O rdered By: Eduardo Ely on 08-14-2023 Bilirubin Ql (U) Negative Negative [facility] Determination of erythrocyte mean corpuscular volume (MCV)Ordered By: Eduardo Ely on 08-14-2023 MCV (RBC) [Entitic vol] 91.9 fL 81-99 [facility] Erythrocyte distribution wid th ratioOrdered By: Eduardo Ely on 08-14-2023 Erythrocyte distribution width (RBC) [Ratio] 13.5 % 11.6-14.6 [facility] Erythrocyte distribution wid th standard deviationOrdered By: Eduardo Ely on 08-14-2023 Erythrocyte distribution width (RBC) [Entitic vol] 45.3 fL 35.1-43.9 [facility] Hematocrit Auto (Bld) [Volum e fraction]Ordered By: Eduardo Ely on 08-14-2023 Hematocrit (Bld) [Volume fraction] 41.9 % 37-47 [facility] Immature granulocytes/100 WB C Auto (Bld)Ordered By: Eduardo Ely on 08-14-2023 Immature granulocytes/100 WBC (Bld) 0.400 % 0.0-0.9 [facility] Comment on above: IG% - Immature Granu locytes (promyelocytes, myelocytes and metamyelocytes) > 1% indicates that a LEFT SHIFT is Present. Ketones Test strip Ql (U)Ord ered By: Eduardo [place]ly on 08-14-2023 Ketones Ql (U) Negative Negative [facility] Laboratory - Chemistry and C hemistry - challengeOrdered By: Eduardo Ely on 08-14-2023 CO2 [Moles/Vol] 29.0 mmol/L 21.0-32.0 [facility] Urea nitrogen/Creatinine [Mass ratio] 16.0 mg/mg 10-20 [facility] Laboratory - Hematology and Cell countsOrdered By: Eduardo Ely on 08-14-2023 MCH (RBC) [Entitic mass] 29.2 pg 27.0-32.0 [facility] MCHC (RBC) [Mass/Vol] 31.7 g/dL 32-36 [facility] Nucleated RBC/100 WBC (Bld) [Ratio] 0 % 0-5 [facility] Platelet mean volume (Bld) [Entitic vol] 9.0 fL 6.2-12.0 [facility] Platelets (Bld) [#/Vol] 191 10*3/uL 150-450 [facility] Mucus LM Ql (Urine sed)Order ed By: Eduardo Ely on 08-14-2023 Mucus Ql (Urine sed) 0 SEEN /hpf [facility] Nitrite Test strip Ql (U)Ord ered By: Eduardo Ely on 08-14-2023 Nitrite Ql (U) Negative Negative [facility] No Panel InformationOrdered By: Eduardo Ely on 08-14-2023 Urine RBC 0-5 SEEN /hpf 0-5 [facility] Estimated Creatinine Clearance Calc 54.40 ml/min [facility] Estimated GFR (MDRD) Amer 67 mL/min >60 [facility] Comment on above: GFR Calc Estimated GFR (MDRD) Non-Af Amer 55 mL/min >60 [facility] Comment on above: Non- GFR Calc Troponin I High Sensitivity 5 pg/mL 3.0-54.0 [facility] Comment on above: Please Note: New [place] t Units and Gender Specific Reference Ranges. For more information see Policy Stat Procedure [place] High Sensitivity Troponin (TNIH) and attachments. Protein Test strip Ql (U)Ord ered By: Eduardo Ely on 08-14-2023 Protein Ql (U) Negative Negative [facility] RBC Auto (Bld) [#/Vol]Ordere d By: Eduardo Ely on 08-14-2023 RBC (Bld) [#/Vol] 4.56 10*6/uL 4.2-5.4 [facility] Serum or plasma calcium tino urement (mass/volume)Ordered By: Eduardo Ely on 08-14-2023 Calcium [Mass/Vol] 8.9 mg/dL 8.5-10.1 [facility] Serum or plasma creatinine m easurement (mass/volume)Ordered By: Eduardo Ely on 08-14-2023 Creatinine [Mass/Vol] 1.06 mg/dL 0.55-1.02 [facility] Comment on above: The validity of the calculated GFR & GFRAA in patients over 70 years has not been determined. Clinical correlation is essential. Serum or plasma urea nitroge n measurement (mass/volume)Ordered By: Eduardo Ely on 08-14-2023 Urea nitrogen [Mass/Vol] 17 mg/dL 12-13 [facility] Squamous epithelial cells de tection in urine sediment by light microscopyOrdered By: Eduardo Ely on 08-14-2023 Epithelial cells.squamous LM Ql (Urine sed) 0 SEEN /hpf 5-10 [facility] Thin prep Papanicolaou smear with manual screeningOrdered By: Eduardo Ely on 08-14-2023 Thin prep Papanicolaou smear with manual screening 2 5-15 [facility] Urine blood detectionOrdered By: Eduardo Ely on 08-14-2023 RBC Ql (U) 10 /ul Negative [facility] Urine clarityOrdered By: Robin Ely on 08-14-2023 Clarity (U) Clear Clear [facility] Urine color determinationOrd ered By: Eduardo Ely on 08-14-2023 Color (U) Yellow Yellow [facility] Urine glucose detectionOrder ed By: Eduardo Ely on 08-14-2023 Glucose Ql (U) Normal mg/dl Normal [facility] Urine leukocyte esterase det ection by dipstickOrdered By: Eduardo Ely on 08-14-2023 Leukocyte esterase Test strip Ql (U) 500 /ul Negative [facility] Urine pHOrdered By: Eduardo sultana on 08-14-2023 pH (U) 5.0 [pH] 5.0 - 8.0 [facility] Urine sediment bacteria coun t by microscopy (number/high power field)Ordered By: Eduardo Ely on 08-14-2023 Bacteria LM.HPF (Urine sed) [#/Area] RARE /hpf None Seen [facility] Urine specific gravity measu rementOrdered By: Eduardo Ely on 08-14-2023 Specific gravity (U) [Rel density] 1.020 1.002-1.03 0 [facility] Urine urobilinogen measureme ntOrdered By: Eduardo Ely on 08-14-2023 Urobilinogen Ql (U) Normal mg/dl Normal [facility] US Kidney - bilateral and Ur inary bladderon 07-31-2023 [facility] Urinalysis complete panel (U )on 07-31-2023 Bacteria LM.HPF (Urine sed) [#/Area] Negative Negative /HPF [facility] Bilirubin Ql (U) Negative Negative [facility] Clarity (Unsp spec) Clear Clear [facility] Color (U) Yellow Yellow [facility] Epithelial cells LM.HPF (Urine sed) [#/Area] Few [facility] Glucose Test strip (U) [Mass/Vol] Negative Negative [facility] Hemoglobin Ql (U) Negative Negative [facility] Hyaline casts (Urine sed) [#/Area] 1-3 /LPF Abnormal 0 /LPF [facility] Ketones Ql (U) Negative Negative [facility] Leukocyte esterase Test strip Ql (U) 2+ Abnormal Negative [facility] Nitrite Ql (U) Negative Negative [facility] pH (U) 5.5 [pH] <8.5 [facility] Protein (U) [Mass/Vol] Negative Negative Cl [facility] RBC LM.HPF (Urine sed) [#/Area] 0-2 /HPF 0-2 /HPF [facility] Specific gravity (U) [Rel density] 1.017 1.005 - 1.030 [facility] Urobilinogen Ql (U) 0.2 EU/dL 0.2-1.0 EU/dL [facility] WBC LM.HPF (Urine sed) [#/Area] 11-20 /HPF Abnormal 0-5 /HPF [facility] CNOVon 05-26-2023 CNOV Office Visit (SPAGWO ) TEMITOPE HADDAD ([id number]) 1955 [facility] Date Time Provider Department 05/26/23 1:15 [...] ideas. The patient is nervous/anxious. Meaghan Trevino APRN.[employer] 05/26/2023 4:20 PM Signed [facility] Today's Date: 05/26/2023 Name: Temitope Haddad [...] was advised that they will need a courier driver for after the procedure and that if no courier driver is available and on site at [...] Referrals: No additional considerations at present Functional Mormon: Physical Therapy (Land-based) Depending on response to [...] Relaxants: Fle (more content not included)... Normal [facility] LUIS Baires 03-22 [facility] Aureliano 03-16-2023 CNPN Telephone (PULMJM) TEMITOPE HADDAD ([id number]) 1955 [facility] Date Time Provider Department 03/16/23 BARRETT FALK [facility] During your visit today, we recorded the following information about you: Barrett Falk APRN.[employer] 03/16/2023 3:28 PM Signed Phone call to patient to discuss results and recommendations for lung nodule follow up: [address] Chest. Pt states she has a lung doctor and wishes to follow up with them instead. She is asking to be discharged from our program. She is aware that if she wants to have screening CT scans done at [facility] in the future she will need [...] Encounter Status:Closed by BARRETT FALK on 03/16/[address] [facility] [address] CHEST WO IVCONon 03-16-20 Radiology Result ACTIONABLE Abnormal [facility] Absolute lymphocyte countOrd ered By: Eduardo Ely on 03-13-2023 Lymphocytes Auto (Unsp spec) [#/Vol] 1.28 10*3/uL 0.83-4.51 [facility] Basophil percentageOrdered B y: Eduardo Ely on 03-13-2023 Basophil percentage 10-25 SEEN /hpf 0-5 [facility] Basophils/100 WBC (Bld) 0.8 % 0-1 [facility] Bilirubin [Mass/Vol] 0.40 mg/dL 0.20-1.00 [facility] Comment on above: For patients on eltr ombopag therapy, use of Dimension [place] TBIL is not recommended. Chloride [Moles/Vol] 109 mmol/L 98-107 [facility] Eosinophils/100 WBC (Bld) 1.1 % 0-5 [facility] Glucose [Mass/Vol] 86 mg/dL 74-106 [facility] Neutrophils (Bld) [#/Vol] 3.6 10*3/uL 2.0-7.7 [facility] Neutrophils/100 WBC (Bld) 68.6 % 47-70 [facility] Potassium [Moles/Vol] 4.4 mmol/L 3.5-5.1 [facility] Protein [Mass/Vol] 7.0 g/dL 6.4-8.2 [facility] Sodium [Moles/Vol] 141 mmol/L 136-145 [facility] WBC (Bld) [#/Vol] 5.3 10*3/uL 4.4-11.0 [facility] Bilirubin Test strip Ql (U)O rdered By: Eduardo Ely on 03-13-2023 Bilirubin Ql (U) Negative Negative [facility] Blood erythrocytes count (nu mber/volume)Ordered By: Eduardo Ely on 03-13-2023 RBC (Bld) [#/Vol] 4.58 10*6/uL 4.2-5.4 [facility] Blood hemoglobin measurement (mass/volume)Ordered By: Eduardo Ely on 03-13-2023 Hemoglobin (Bld) [Mass/Vol] 13.8 g/dL 12.0-15.0 [facility] Blood lymphocytes/100 leukoc ytesOrdered By: Eduardo Ely on 03-13-2023 Lymphocytes/100 WBC (Bld) 24.2 % 19-41 [facility] Blood monocytes/100 leukocyt esOrdered By: Eduardo Ely on 03-13-2023 Monocytes/100 WBC (Bld) 5.1 % 0-10 [facility] Blood platelet mean volumeOr dered By: Eduardo Ely on 03-13-2023 Platelet mean volume (Bld) [Entitic vol] 8.9 fL 6.2-12.0 [facility] Determination of erythrocyte mean corpuscular volume (MCV)Ordered By: Eduardo Ely on 03-13-2023 MCV (RBC) [Entitic vol] 95.4 fL 81-99 [facility] Direct bilirubinOrdered By: Eduardo Ely on 03-13-2023 Bilirubin.direct [Mass/Vol] 0.13 mg/dL 0.00-0.30 [facility] Hematocrit Auto (Bld) [Volum e fraction]Ordered By: Eduardo Ely on 03-13-2023 Hematocrit (Bld) [Volume fraction] 43.7 % 37-47 [facility] Ketones Test strip Ql (U)Ord ered By: Eduardo Ely on 03-13-2023 Ketones Ql (U) Negative Negative [facility] Laboratory - Chemistry and C hemistry - challengeOrdered By: Eduardo Ely on 03-13-2023 ALP [Catalytic activity/Vol] 69 U/L 45-117 [facility] ALT [Catalytic activity/Vol] 42 U/L 13-56 [facility] CO2 [Moles/Vol] 29.0 mmol/L 21.0-32.0 [facility] Globulin (S) [Mass/Vol] 3.5 g/dL 2.2-4.2 [facility] Lipase [Catalytic activity/Vol] 20 U/L 13-75 [facility] Comment on above: Please note:LIPASE r evised reference range effective 22. New Lipase methodology. Expected to produce lower values than the previous assay method. NEW Reference Range: 13 - 75 U/L Urea nitrogen/Creatinine [Mass ratio] 19.8 mg/mg 10-20 [facility] Laboratory - Hematology and Cell countsOrdered By: Eduardo Ely on 03-13-2023 Erythrocyte distribution width (RBC) [Entitic vol] 44.2 fL 35.1-43.9 [facility] Erythrocyte distribution width (RBC) [Ratio] 12.6 % 11.6-14.6 [facility] Immature granulocytes/100 WBC (Bld) 0.200 % 0.0-0.9 [facility] Comment on above: IG% - Immature Granu locytes (promyelocytes, myelocytes and metamyelocytes) > 1% indicates that a LEFT SHIFT is Present. MCH (RBC) [Entitic mass] 30.1 pg 27.0-32.0 [facility] Nucleated RBC/100 WBC (Bld) [Ratio] 0 % 0-5 [facility] MCHC Auto (RBC) [Mass/Vol]Or dered By: Eduardo Ely on 03-13-2023 MCHC (RBC) [Mass/Vol] 31.6 g/dL 32-36 [facility] Mucus LM Ql (Urine sed)Order ed By: Eduardo Ely on 03-13-2023 Mucus Ql (Urine sed) 0 SEEN /hpf [facility] Nitrite Test strip Ql (U)Ord ered By: Eduardo Ely on 03-13-2023 Nitrite Ql (U) Negative Negative [facility] No Panel InformationOrdered By: Eduardo Ely on 03-13-2023 Estimated Creatinine Clearance Calc 51.99 ml/min [facility] Estimated GFR (MDRD) Amer 71 mL/min >60 [facility] Comment on above: GFR Calc Estimated GFR (MDRD) Non-Af Amer 58 mL/min >60 [facility] Comment on above: Non- GFR Calc Platelets bldOrdered By: Robin Ely on 03-13-2023 Platelets (Bld) [#/Vol] 181 10*3/uL 150-450 [facility] Protein Test strip Ql (U)Ord ered By: Eduardo Ely on 03-13-2023 Protein Ql (U) 15 mg/dl Negative [facility] Serum or plasma albumin tino urement (mass/volume)Ordered By: Eduardo Ely on 03-13-2023 Albumin [Mass/Vol] 3.5 g/dL 3.2-5.0 [facility] Serum or plasma calcium tino urement (mass/volume)Ordered By: Eduardo Ely on 03-13-2023 Calcium [Mass/Vol] 9.1 mg/dL 8.5-10.1 [facility] Serum or plasma creatinine m easurement (mass/volume)Ordered By: Eduardo Ely on 03-13-2023 Creatinine [Mass/Vol] 1.01 mg/dL 0.55-1.02 [facility] Comment on above: The validity of the calculated GFR & GFRAA in patients over 70 years has not been determined. Clinical correlation is essential. Serum or plasma urea nitroge n measurement (mass/volume)Ordered By: Eduardo Ely on 03-13-2023 Urea nitrogen [Mass/Vol] 20 mg/dL 7-18 [facility] Squamous epithelial cells de tection in urine sediment by light microscopyOrdered By: Eduardo Ely on 03-13-2023 Epithelial cells.squamous LM Ql (Urine sed) 0-5 SEEN /hpf 5-10 [facility] Thin prep Papanicolaou smear with manual screeningOrdered By: Eduardo Ely on 03-13-2023 Thin prep Papanicolaou smear with manual screening 26 U/L 15-37 [facility] Thin prep Papanicolaou smear with manual screening 3 5-15 [facility] Urine blood detectionOrdered By: Eduardo Ely on 03-13-2023 RBC Ql (U) 10 /ul Negative [facility] RBC Ql (U) 0 SEEN /hpf 0-5 [facility] Urine clarityOrdered By: Robin Ely on 03-13-2023 Clarity (U) Clear Clear [facility] Urine color determinationOrd ered By: Eduardo Ely on 03-13-2023 Color (U) Yellow Yellow [facility] Urine glucose detectionOrder ed By: Eduardo Ely on 03-13-2023 Glucose Ql (U) Normal mg/dl Normal [facility] Urine leukocyte esterase det ection by dipstickOrdered By: Eduardo Ely on 03-13-2023 Leukocyte esterase Test strip Ql (U) 500 /ul Negative [facility] Urine pHOrdered By: Eduardo sultana on 03-13-2023 pH (U) 6.0 [pH] 5.0 - 8.0 [facility] Urine sediment bacteria coun t by microscopy (number/high power field)Ordered By: Eduardo Ely on 03-13-2023 Bacteria LM.HPF (Urine sed) [#/Area] 0 /[HPF] None Seen [facility] Urine specific gravity measu rementOrdered By: Eduardo Ely on 03-13-2023 Specific gravity (U) [Rel density] 1.015 1.002-1.03 0 [facility] Urobilinogen Auto test strip Ql (U)Ordered By: Eduardo Ely on 03-13-2023 Urobilinogen Ql (U) Normal mg/dl Normal [facility] LUIS SCREENINGon 02-23-2023 [facility] XR LUMBAR MOTION 4V AP/LAT/ FLEX/EXTon 02-23-2023 [facility] DXA-AXIAL SKELETONon 023 [facility] XR Sacrum and Coccyx 3 Views on 12-22-2022 IMPRESSION: No acute fracture or dislocation.. Stone Engraver: PSCB Transcribe Date/Time: Dec 22 2022 11:09A Dictated by : ONOFRE GALLEGOS MD This examination was interpreted and the report reviewed and electronically signed by: ONOFRE GALLEGOS MD on Dec 22 2022 11:13AM [facility] DIVISION OF RADIOLOGY * * *Final [...] the abdominal aorta. DIVISION OF RADIOLOGY Provider, [facility] - 12/22/2022 * * *Final Report* [...] IMPRESSION IMPRESSION: No acute fracture or dislocation.. Stone Engraver[facility] Transcribe Date/Time: Dec 22 2022 11:09A Dictated by : ONOFRE GALLEGOS MD This examination was interpreted and the report reviewed and electronically signed by: ONOFRE GALLEGOS MD on Dec 22 2022 11:13AM EST [facility] XR Sacrum and Coccyx 3 Views Ordered By: [facility] Provider on 12-22-2022 [facility] XR Sacrum and Coccyx 3 Views on 12-19-2022 Radiology Study observation (narrative) [facility] Absolute lymphocyte countOrd ered By: Dr. Walter on 11-16-2022 Lymphocytes Auto (Unsp spec) [#/Vol] 1.53 10*3/uL 0.83-4.51 [facility] Basophil percentageOrdered B y: Dr. Walter on 11-16-2022 Basophils/100 WBC (Bld) 1.0 % 0-1 [facility] Chloride [Moles/Vol] 105 mmol/L 98-107 [facility] Eosinophils/100 WBC (Bld) 1.6 % 0-5 [facility] Glucose [Mass/Vol] 88 mg/dL 74-106 [facility] Neutrophils (Bld) [#/Vol] 3.1 10*3/uL 2.0-7.7 [facility] Neutrophils/100 WBC (Bld) 60.6 % 47-70 [facility] Potassium [Moles/Vol] 3.9 mmol/L 3.5-5.1 [facility] Comment on above: Slight Hemolysis, Re sult may be falsely increased. Sodium [Moles/Vol] 142 mmol/L 136-145 [facility] WBC (Bld) [#/Vol] 5.1 10*3/uL 4.4-11.0 [facility] Basophil percentage 0 SEEN /hpf 0-5 [facility] Bilirubin Test strip Ql (U)O rdered By: Dr. Walter on 11-16-2022 Bilirubin Ql (U) Negative Negative [facility] Blood erythrocytes count (nu mber/volume)Ordered By: Dr. Walter on 11-16-2022 RBC (Bld) [#/Vol] 4.60 10*6/uL 4.2-5.4 [facility] Blood hemoglobin measurement (mass/volume)Ordered By: Dr. Walter on 11-16-2022 Hemoglobin (Bld) [Mass/Vol] 13.8 g/dL 12.0-15.0 [facility] Blood lymphocytes/100 leukoc ytesOrdered By: Dr. Walter on 11-16-2022 Lymphocytes/100 WBC (Bld) 29.8 % 19-41 [facility] Blood monocytes/100 leukocyt esOrdered By: Dr. Walter on 11-16-2022 Monocytes/100 WBC (Bld) 6.8 % 0-10 [facility] Blood platelet mean volumeOr dered By: Dr. Walter on 11-16-2022 Platelet mean volume (Bld) [Entitic vol] 8.7 fL 6.2-12.0 [facility] Determination of erythrocyte mean corpuscular volume (MCV)Ordered By: Dr. Walter on 11-16-2022 MCV (RBC) [Entitic vol] 93.7 fL 81-99 [facility] Hematocrit Auto (Bld) [Volum e fraction]Ordered By: Dr. Walter on 11-16-2022 Hematocrit (Bld) [Volume fraction] 43.1 % 37-47 [facility] Ketones Test strip Ql (U)Ord ered By: Dr. Walter on 11-16-2022 Ketones Ql (U) Negative Negative [facility] Laboratory - Chemistry and C hemistry - challengeOrdered By: Dr. Walter on 11-16-2022 CO2 [Moles/Vol] 31.0 mmol/L 21.0-32.0 [facility] Urea nitrogen/Creatinine [Mass ratio] 21.1 mg/mg 10-20 [facility] Laboratory - Hematology and Cell countsOrdered By: Dr. Walter on 11-16-2022 Erythrocyte distribution width (RBC) [Entitic vol] 46.4 fL 35.1-43.9 [facility] Erythrocyte distribution width (RBC) [Ratio] 13.5 % 11.6-14.6 [facility] Immature granulocytes/100 WBC (Bld) 0.200 % 0.0-0.9 [facility] Comment on above: IG% - Immature Granu locytes (promyelocytes, myelocytes and metamyelocytes) > 1% indicates that a LEFT SHIFT is Present. MCH (RBC) [Entitic mass] 30.0 pg 27.0-32.0 [facility] Nucleated RBC/100 WBC (Bld) [Ratio] 0 % 0-5 [facility] MCHC Auto (RBC) [Mass/Vol]Or dered By: Dr. Walter on 11-16-2022 MCHC (RBC) [Mass/Vol] 32.0 g/dL 32-36 [facility] Mucus LM Ql (Urine sed)Order ed By: Dr. Walter on 11-16-2022 Mucus Ql (Urine sed) 0 SEEN /hpf [facility] Nitrite Test strip Ql (U)Ord ered By: Dr. Walter on 11-16-2022 Nitrite Ql (U) Negative Negative [facility] No Panel InformationOrdered By: Dr. Walter on 11-16-2022 D-Dimer Quantitative (PE/DVT) 1.13 FEU/ug/m 0.27-0.49 [facility] Comment on above: D-Dimer ELEVATED (>0 .49): Additional studies and clinicalassessments are indicated to conclude diagnosis of:Deep Vein Thrombosis (DVT) or Pulmonary Embolism (PE)CRITICAL VALUE VERIFIED. CALLED TO [id number] Nidia Rodriguez.RESULTS READ BACK BY SAME . Estimated Creatinine Clearance Calc 44.43 ml/min [facility] Estimated GFR (MDRD) Amer 65 mL/min >60 [facility] Comment on above: GFR Calc Estimated GFR (MDRD) Non-Af Amer 54 mL/min >60 [facility] Comment on above: Non- GFR Calc Platelets bldOrdered By: Dr. Walter on 11-16-2022 Platelets (Bld) [#/Vol] 197 10*3/uL 150-450 [facility] Protein Test strip Ql (U)Ord ered By: Dr. Walter on 11-16-2022 Protein Ql (U) 15 mg/dl Negative [facility] Serum or plasma calcium tino urement (mass/volume)Ordered By: Dr. Walter on 11-16-2022 Calcium [Mass/Vol] 9.3 mg/dL 8.5-10.1 [facility] Serum or plasma creatinine m easurement (mass/volume)Ordered By: Dr. Walter on 11-16-2022 Creatinine [Mass/Vol] 1.09 mg/dL 0.55-1.02 [facility] Comment on above: The validity of the calculated GFR & GFRAA in patients over 70 years has not been determined. Clinical correlation is essential. Serum or plasma urea nitroge n measurement (mass/volume)Ordered By: Dr. Walter on 11-16-2022 Urea nitrogen [Mass/Vol] 23 mg/dL 7-18 [facility] Squamous epithelial cells de tection in urine sediment by light microscopyOrdered By: Dr. Walter on 11-16-2022 Epithelial cells.squamous LM Ql (Urine sed) 0 SEEN /hpf 5-10 [facility] Thin prep Papanicolaou smear with manual screeningOrdered By: Dr. Walter on 11-16-2022 Thin prep Papanicolaou smear with manual screening 6 5-15 [facility] Urine blood detectionOrdered By: Dr. Walter on 11-16-2022 RBC Ql (U) 10 /ul Negative [facility] RBC Ql (U) 0 SEEN /hpf 0-5 [facility] Urine clarityOrdered By: Dr. Walter on 11-16-2022 Clarity (U) Sl. Cloudy Clear [facility] Urine color determinationOrd ered By: Dr. Walter on 11-16-2022 Color (U) Yellow Yellow [facility] Urine glucose detectionOrder ed By: Dr. Walter on 11-16-2022 Glucose Ql (U) Normal mg/dl Normal [facility] Urine leukocyte esterase det ection by dipstickOrdered By: Dr. Walter on 11-16-2022 Leukocyte esterase Test strip Ql (U) Negative Negative [facility] Urine pHOrdered By: Dr. Thanh field on 11-16-2022 pH (U) 6.0 [pH] 5.0 - 8.0 [facility] Urine sediment bacteria coun t by microscopy (number/high power field)Ordered By: Dr. Walter on 11-16-2022 Bacteria LM.HPF (Urine sed) [#/Area] 0 /[HPF] None Seen [facility] Urine specific gravity measu rementOrdered By: Dr. Walter on 11-16-2022 Specific gravity (U) [Rel density] 1.025 1.002-1.03 0 [facility] Urobilinogen Auto test strip Ql (U)Ordered By: Dr. Walter on 11-16-2022 Urobilinogen Ql (U) Normal mg/dl Normal [facility] UA DIP, URINE (POC)on 2022 BILIRUBIN UA (POCT) Negative Negative [facility] CLARITY UA (POCT) Clear [facility] COLOR UA (POCT) Yellow [facility] GLUCOSE UA (POCT) Negative Negative mg/dL [facility] HEMOGLOBIN/BLOOD UA (POCT) Negative Negative [facility] KETONE UA (POCT) Negative Negative mg/dL [facility] LEUKOCYTES UA (POCT) Trace Abnormal Negative [facility] NITRITE UA (POCT) Negative Negative [facility] PH UA (POCT) 6.5 4.5 - 8.0 [facility] Protein Ql (U) Negative Negative mg/dL [facility] SPECIFIC GRAVITY UA (POCT) 1.020 1.005 - 1.030 [facility] UROBILINOGEN UA (POCT) 0.2 E.U./dL Elizabeth l E.U./dL [facility] No Panel InformationOrdered By: Kunal Bray on 11-03-2022 Troponin I High Sensitivity 20 pg/mL 3.0-54.0 [facility] Comment on above: Please Note: New Lyly t Units and Gender Specific Reference Ranges. For more information see Policy Stat Procedure [place] High Sensitivity Troponin (TNIH) and attachments. Absolute lymphocyte countOrd ered By: Kunal Bray on 11-02-2022 Lymphocytes Auto (Unsp spec) [#/Vol] 1.22 10*3/uL 0.83-4.51 [facility] Basophil percentageOrdered B y: Kunal Bray on 11-02-2022 Basophils/100 WBC (Bld) 0.5 % 0-1 [facility] Bilirubin [Mass/Vol] 0.50 mg/dL 0.20-1.00 [facility] Comment on above: For patients on eltr ombopag therapy, use of Dimension [place] TBIL is not recommended. Chloride [Moles/Vol] 108 mmol/L 98-107 [facility] Eosinophils/100 WBC (Bld) 1.0 % 0-5 [facility] Glucose [Mass/Vol] 109 mg/dL 74-106 [facility] Comment on above: Fasting Glucose resu lt from 100 to 125 mg/dL suggests IMPAIRED HOMEOSTASIS per A.D.A. criteria. Neutrophils (Bld) [#/Vol] 5.7 10*3/uL 2.0-7.7 [facility] Neutrophils/100 WBC (Bld) 78.1 % 47-70 [facility] Potassium [Moles/Vol] 3.4 mmol/L 3.5-5.1 [facility] Protein [Mass/Vol] 8.2 g/dL 6.4-8.2 [facility] Sodium [Moles/Vol] 142 mmol/L 136-145 [facility] WBC (Bld) [#/Vol] 7.4 10*3/uL 4.4-11.0 [facility] Blood erythrocytes count (nu mber/volume)Ordered By: Kunal Bray on 11-02-2022 RBC (Bld) [#/Vol] 5.05 10*6/uL 4.2-5.4 [facility] Blood hemoglobin measurement (mass/volume)Ordered By: Kunal Bray on 11-02-2022 Hemoglobin (Bld) [Mass/Vol] 15.3 g/dL 12.0-15.0 [facility] Blood lymphocytes/100 leukoc ytesOrdered By: Kunal Bray on 11-02-2022 Lymphocytes/100 WBC (Bld) 16.6 % 19-41 [facility] Blood monocytes/100 leukocyt esOrdered By: Kunal Bray on 11-02-2022 Monocytes/100 WBC (Bld) 3.5 % 0-10 [facility] Blood platelet mean volumeOr dered By: Kunal Bray on 11-02-2022 Platelet mean volume (Bld) [Entitic vol] 9.2 fL 6.2-12.0 [facility] Determination of erythrocyte mean corpuscular volume (MCV)Ordered By: Kunal Bray on 11-02-2022 MCV (RBC) [Entitic vol] 91.7 fL 81-99 [facility] Direct bilirubinOrdered By: Kunal Bray on 11-02-2022 Bilirubin.direct [Mass/Vol] 0.20 mg/dL 0.00-0.30 [facility] Hematocrit Auto (Bld) [Volum e fraction]Ordered By: Kunal Bray on 11-02-2022 Hematocrit (Bld) [Volume fraction] 46.3 % 37-47 [facility] Laboratory - Chemistry and C hemistry - challengeOrdered By: Kunal Bray on 11-02-2022 ALP [Catalytic activity/Vol] 78 U/L 45-117 [facility] ALT [Catalytic activity/Vol] 33 U/L 13-56 [facility] CO2 [Moles/Vol] 26.0 mmol/L 21.0-32.0 [facility] Globulin (S) [Mass/Vol] 4.0 g/dL 2.2-4.2 [facility] Lipase [Catalytic activity/Vol] 21 U/L 13-75 [facility] Comment on above: Please note:LIPASE r evised reference range effective 22. New Lipase methodology. Expected to produce lower values than the previous assay method. NEW Reference Range: 13 - 75 U/L Magnesium [Mass/Vol] 2.2 mg/dL 1.6-2.6 [facility] Urea nitrogen/Creatinine [Mass ratio] 13.9 mg/mg 10-20 [facility] Laboratory - Hematology and Cell countsOrdered By: Kunal Bray on 11-02-2022 Erythrocyte distribution width (RBC) [Entitic vol] 44.9 fL 35.1-43.9 [facility] Erythrocyte distribution width (RBC) [Ratio] 13.3 % 11.6-14.6 [facility] Immature granulocytes/100 WBC (Bld) 0.300 % 0.0-0.9 [facility] Comment on above: IG% - Immature Granu locytes (promyelocytes, myelocytes and metamyelocytes) > 1% indicates that a LEFT SHIFT is Present. MCH (RBC) [Entitic mass] 30.3 pg 27.0-32.0 [facility] Nucleated RBC/100 WBC (Bld) [Ratio] 0 % 0-5 [facility] MCHC Auto (RBC) [Mass/Vol]Or dered By: Kunal Bray on 11-02-2022 MCHC (RBC) [Mass/Vol] 33.0 g/dL 32-36 [facility] No Panel InformationOrdered By: Kunal Bray on 11-02-2022 D-Dimer Quantitative (PE/DVT) 1.43 FEU/ug/m 0.27-0.49 [facility] Comment on above: D-Dimer ELEVATED (>0 .49): Additional studies and clinicalassessments are indicated to conclude diagnosis of:Deep Vein Thrombosis (DVT) or Pulmonary Embolism (PE)CRITICAL VALUE VERIFIED. CALLED TO Sumaya VASQUEZ RN [id number]/03/[id number] Bryson.RESULTS READ BACK BY SAME. Estimated Creatinine Clearance Calc 44.71 ml/min [facility] Estimated GFR (MDRD) Amer 57 mL/min >60 [facility] Comment on above: GFR Calc Estimated GFR (MDRD) Non-Af Amer 47 mL/min >60 [facility] Comment on above: Non- GFR Calc Platelets bldOrdered By: Chong Bray on 11-02-2022 Platelets (Bld) [#/Vol] 221 10*3/uL 150-450 [facility] Serum or plasma albumin tino urement (mass/volume)Ordered By: Kunal Bray on 11-02-2022 Albumin [Mass/Vol] 4.2 g/dL 3.2-5.0 [facility] Serum or plasma calcium tino urement (mass/volume)Ordered By: Kunal Bray on 11-02-2022 Calcium [Mass/Vol] 9.4 mg/dL 8.5-10.1 [facility] Serum or plasma creatinine m easurement (mass/volume)Ordered By: Kunal Bray on 11-02-2022 Creatinine [Mass/Vol] 1.22 mg/dL 0.55-1.02 [facility] Comment on above: The validity of the calculated GFR & GFRAA in patients over 70 years has not been determined. Clinical correlation is essential. Serum or plasma urea nitroge n measurement (mass/volume)Ordered By: Kunal Bray on 11-02-2022 Urea nitrogen [Mass/Vol] 17 mg/dL 7-18 [facility] Thin prep Papanicolaou smear with manual screeningOrdered By: Kunal Bray on 11-02-2022 Thin prep Papanicolaou smear with manual screening 27 U/L 15-37 [facility] Thin prep Papanicolaou smear with manual screening 8 5-15 [facility] Absolute lymphocyte countOrd ered By: Dr. Britt on 10-21-2022 Lymphocytes Auto (Unsp spec) [#/Vol] 1.39 10*3/uL 0.83-4.51 [facility] Basophil percentageOrdered B y: Dr. Britt on 10-21-2022 Basophil percentage 0 SEEN /hpf 0-5 [facility] Basophils/100 WBC (Bld) 0.8 % 0-1 [facility] Chloride [Moles/Vol] 106 mmol/L 98-107 [facility] Eosinophils/100 WBC (Bld) 2.2 % 0-5 [facility] Glucose [Mass/Vol] 92 mg/dL 74-106 [facility] Neutrophils (Bld) [#/Vol] 1.8 10*3/uL 2.0-7.7 [facility] Neutrophils/100 WBC (Bld) 51.4 % 47-70 [facility] Potassium [Moles/Vol] 4.5 mmol/L 3.5-5.1 [facility] Sodium [Moles/Vol] 140 mmol/L 136-145 [facility] WBC (Bld) [#/Vol] 3.6 10*3/uL 4.4-11.0 [facility] Bilirubin Test strip Ql (U)O rdered By: Dr. Britt on 10-21-2022 Bilirubin Ql (U) Negative Negative [facility] Blood erythrocytes count (nu mber/volume)Ordered By: Dr. Britt on 10-21-2022 RBC (Bld) [#/Vol] 4.59 10*6/uL 4.2-5.4 [facility] Blood hemoglobin measurement (mass/volume)Ordered By: Dr. Britt on 10-21-2022 Hemoglobin (Bld) [Mass/Vol] 13.7 g/dL 12.0-15.0 [facility] Blood lymphocytes/100 leukoc ytesOrdered By: Dr. Britt on 10-21-2022 Lymphocytes/100 WBC (Bld) 38.9 % 19-41 [facility] Blood monocytes/100 leukocyt esOrdered By: Dr. Britt on 10-21-2022 Monocytes/100 WBC (Bld) 6.4 % 0-10 [facility] Blood platelet mean volumeOr dered By: Dr. Britt on 10-21-2022 Platelet mean volume (Bld) [Entitic vol] 9.2 fL 6.2-12.0 [facility] Determination of erythrocyte mean corpuscular volume (MCV)Ordered By: Dr. Britt on 10-21-2022 MCV (RBC) [Entitic vol] 91.5 fL 81-99 [facility] Hematocrit Auto (Bld) [Volum e fraction]Ordered By: Dr. Britt on 10-21-2022 Hematocrit (Bld) [Volume fraction] 42.0 % 37-47 [facility] Ketones Test strip Ql (U)Ord ered By: Dr. Britt on 10-21-2022 Ketones Ql (U) Negative Negative [facility] Laboratory - Chemistry and C hemistry - challengeOrdered By: Dr. Britt on 10-21-2022 CO2 [Moles/Vol] 32.0 mmol/L 21.0-32.0 [facility] Urea nitrogen/Creatinine [Mass ratio] 22.4 mg/mg 10-20 [facility] Laboratory - Hematology and Cell countsOrdered By: Dr. Britt on 10-21-2022 Erythrocyte distribution width (RBC) [Entitic vol] 44.7 fL 35.1-43.9 [facility] Erythrocyte distribution width (RBC) [Ratio] 13.3 % 11.6-14.6 [facility] Immature granulocytes/100 WBC (Bld) 0.300 % 0.0-0.9 [facility] Comment on above: IG% - Immature Granu locytes (promyelocytes, myelocytes and metamyelocytes) > 1% indicates that a LEFT SHIFT is Present. MCH (RBC) [Entitic mass] 29.8 pg 27.0-32.0 [facility] Nucleated RBC/100 WBC (Bld) [Ratio] 0 % 0-5 [facility] MCHC Auto (RBC) [Mass/Vol]Or dered By: Dr. Britt on 10-21-2022 MCHC (RBC) [Mass/Vol] 32.6 g/dL 32-36 [facility] Mucus LM Ql (Urine sed)Order ed By: Dr. Britt on 10-21-2022 Mucus Ql (Urine sed) 0 SEEN /hpf [facility] Nitrite Test strip Ql (U)Ord ered By: Dr. Britt on 10-21-2022 Nitrite Ql (U) Negative Negative [facility] No Panel InformationOrdered By: Dr. Britt on 10-21-2022 Estimated Creatinine Clearance Calc 49.07 ml/min [facility] Estimated GFR (MDRD) Amer 66 mL/min >60 [facility] Comment on above: GFR Calc Estimated GFR (MDRD) Non-Af Amer 55 mL/min >60 [facility] Comment on above: Non- GFR Calc Platelets bldOrdered By: Dr. Britt on 10-21-2022 Platelets (Bld) [#/Vol] 186 10*3/uL 150-450 [facility] Protein Test strip Ql (U)Ord ered By: Dr. Britt on 10-21-2022 Protein Ql (U) Negative Negative [facility] Serum or plasma calcium tino urement (mass/volume)Ordered By: Dr. Britt on 10-21-2022 Calcium [Mass/Vol] 9.2 mg/dL 8.5-10.1 [facility] Serum or plasma creatinine m easurement (mass/volume)Ordered By: Dr. Britt on 10-21-2022 Creatinine [Mass/Vol] 1.07 mg/dL 0.55-1.02 [facility] Comment on above: The validity of the calculated GFR & GFRAA in patients over 70 years has not been determined. Clinical correlation is essential. Serum or plasma urea nitroge n measurement (mass/volume)Ordered By: Dr. Britt on 10-21-2022 Urea nitrogen [Mass/Vol] 24 mg/dL 7-18 [facility] Squamous epithelial cells de tection in urine sediment by light microscopyOrdered By: Dr. Britt on 10-21-2022 Epithelial cells.squamous LM Ql (Urine sed) 0 SEEN /hpf 5-10 [facility] Thin prep Papanicolaou smear with manual screeningOrdered By: Dr. Britt on 10-21-2022 Thin prep Papanicolaou smear with manual screening 2 5-15 [facility] Urine blood detectionOrdered By: Dr. Britt on 10-21-2022 RBC Ql (U) Negative Negative [facility] RBC Ql (U) 0 SEEN /hpf 0-5 [facility] Urine clarityOrdered By: Dr. Britt on 10-21-2022 Clarity (U) Clear Clear [facility] Urine color determinationOrd ered By: Dr. Britt on 10-21-2022 Color (U) Straw Yellow [facility] Urine glucose detectionOrder ed By: Dr. Britt on 10-21-2022 Glucose Ql (U) Normal mg/dl Normal [facility] Urine leukocyte esterase det ection by dipstickOrdered By: Dr. Britt on 10-21-2022 Leukocyte esterase Test strip Ql (U) Negative Negative [facility] Urine pHOrdered By: Dr. Dorian cazares on 10-21-2022 pH (U) 7.0 [pH] 5.0 - 8.0 [facility] Urine sediment bacteria coun t by microscopy (number/high power field)Ordered By: Dr. Britt on 10-21-2022 Bacteria LM.HPF (Urine sed) [#/Area] 0 /[HPF] None Seen [facility] Urine specific gravity measu rementOrdered By: Dr. Britt on 10-21-2022 Specific gravity (U) [Rel density] 1.010 1.002-1.03 0 [facility] Urobilinogen Auto test strip Ql (U)Ordered By: Dr. Britt on 10-21-2022 Urobilinogen Ql (U) Normal mg/dl Normal [facility] Influenza virus A and B and SARS-CoV-2 (COVID-19) Ag panel - Upper respiratory specimOrdered By: Lili Roque on 09-03-2022 SARS-CoV-2 (COVID-19) RNA KEN+probe Ql (Resp) [facility] Influenza virus A and B and SARS-CoV-2 (COVID-19) Ag panel - Upper respiratory specimOrdered By: Dr. Roque on 09-03-2022 SARS-CoV-2 (COVID-19) RNA KEN+probe Ql (Resp) [facility] Absolute lymphocyte countOrd ered By: Dr. Gannon on 06-08-2022 Lymphocytes Auto (Unsp spec) [#/Vol] 1.16 10*3/uL 0.83-4.51 [facility] Basophil percentageOrdered B y: Dr. Gannon on 06-08-2022 Basophils/100 WBC (Bld) 1.0 % 0-1 [facility] Bilirubin [Mass/Vol] 0.40 mg/dL 0.20-1.00 [facility] Comment on above: For patients on eltr ombopag therapy, use of Dimension [place] TBIL is not recommended. Chloride [Moles/Vol] 110 mmol/L 98-107 [facility] Cholesterol [Mass/Vol] 137 mg/dL <200 [facility] Comment on above: <200 mg/dL Desirable 200-240 mg/dL Borderline >240 mg/dL High Risk Eosinophils/100 WBC (Bld) 3.4 % 0-5 [facility] Glucose [Mass/Vol] 126 mg/dL 74-106 [facility] Comment on above: Fasting Glucose resu lt greater than or equal to 126 mg/dL suggests DIABETES MELLITUS per A.D.A. criteria. Neutrophils (Bld) [#/Vol] 1.4 10*3/uL 2.0-7.7 [facility] Neutrophils/100 WBC (Bld) 47.7 % 47-70 [facility] Potassium [Moles/Vol] 3.6 mmol/L 3.5-5.1 [facility] Protein [Mass/Vol] 6.4 g/dL 6.4-8.2 [facility] Sodium [Moles/Vol] 140 mmol/L 136-145 [facility] Triglyceride [Mass/Vol] 128 mg/dL <199 [facility] Comment on above: The drugs N-Acetylcy steine and Metamizole may falsely depress this assay.Serum Triglycerides Reference Interval Normal <150 mg/dL Borderline high 150 - 199 mg/dL High 200 - 499 mg/dL Very High > or = 500 mg/dL WBC (Bld) [#/Vol] 3.0 10*3/uL 4.4-11.0 [facility] Blood erythrocytes count (nu mber/volume)Ordered By: Dr. Gannon on 06-08-2022 RBC (Bld) [#/Vol] 4.40 10*6/uL 4.2-5.4 [facility] Blood hemoglobin measurement (mass/volume)Ordered By: Dr. Gannon on 06-08-2022 Hemoglobin (Bld) [Mass/Vol] 13.1 g/dL 12.0-15.0 [facility] Blood lymphocytes/100 leukoc ytesOrdered By: Dr. Gannon on 06-08-2022 Lymphocytes/100 WBC (Bld) 39.1 % 19-41 [facility] Blood monocytes/100 leukocyt esOrdered By: Dr. Gannon on 06-08-2022 Monocytes/100 WBC (Bld) 8.8 % 0-10 [facility] Blood platelet mean volumeOr dered By: Dr. Gannon on 06-08-2022 Platelet mean volume (Bld) [Entitic vol] 8.9 fL 6.2-12.0 [facility] Determination of erythrocyte mean corpuscular volume (MCV)Ordered By: Dr. Gannon on 06-08-2022 MCV (RBC) [Entitic vol] 90.5 fL 81-99 [facility] Hematocrit Auto (Bld) [Volum e fraction]Ordered By: Dr. Gannon on 06-08-2022 Hematocrit (Bld) [Volume fraction] 39.8 % 37-47 [facility] Laboratory - Chemistry and C hemistry - challengeOrdered By: Dr. Gannon on 06-08-2022 ALP [Catalytic activity/Vol] 56 U/L 45-117 [facility] ALT [Catalytic activity/Vol] 70 U/L 13-56 [facility] CO2 [Moles/Vol] 26.0 mmol/L 21.0-32.0 [facility] Globulin (S) [Mass/Vol] 3.2 g/dL 2.2-4.2 [facility] Urea nitrogen/Creatinine [Mass ratio] 18.5 mg/mg 10-20 [facility] Laboratory - Hematology and Cell countsOrdered By: Dr. Gannon on 06-08-2022 Erythrocyte distribution width (RBC) [Entitic vol] 41.0 fL 35.1-43.9 [facility] Erythrocyte distribution width (RBC) [Ratio] 12.4 % 11.6-14.6 [facility] Immature granulocytes/100 WBC (Bld) 0.000 % 0.0-0.9 [facility] Comment on above: IG% - Immature Granu locytes (promyelocytes, myelocytes and metamyelocytes) > 1% indicates that a LEFT SHIFT is Present. MCH (RBC) [Entitic mass] 29.8 pg 27.0-32.0 [facility] Nucleated RBC/100 WBC (Bld) [Ratio] 0 % 0-5 [facility] MCHC Auto (RBC) [Mass/Vol]Or dered By: Dr. Gannon on 06-08-2022 MCHC (RBC) [Mass/Vol] 32.9 g/dL 32-36 [facility] No Panel InformationOrdered By: Dr. Gannon on 06-08-2022 Estimated Creatinine Clearance Calc 65.69 ml/min [facility] Estimated GFR (MDRD) Amer 91 mL/min >60 [facility] Comment on above: GFR Calc Estimated GFR (MDRD) Non-Af Amer 75 mL/min >60 [facility] Comment on above: Non- GFR Calc Thyroid Stimulating Hormone (TSH) 0.77 uIU/mL 0.358-3.74 [facility] Platelets bldOrdered By: Dr. Gannon on 06-08-2022 Platelets (Bld) [#/Vol] 178 10*3/uL 150-450 [facility] Serum or plasma albumin tino urement (mass/volume)Ordered By: Dr. Gannon on 06-08-2022 Albumin [Mass/Vol] 3.2 g/dL 3.2-5.0 [facility] Serum or plasma albumin/glob ulin mass ratioOrdered By: Dr. Gannon on 06-08-2022 Albumin/Globulin [Mass ratio] 1.0 {ratio} 0.9-2.4 [facility] Serum or plasma calcium tino urement (mass/volume)Ordered By: Dr. Gannon on 06-08-2022 Calcium [Mass/Vol] 8.4 mg/dL 8.5-10.1 [facility] Serum or plasma cholesterol in HDL measurement (mass/volume)Ordered By: Dr. Gannon on 06-08-2022 Cholesterol in HDL [Mass/Vol] 61 mg/dL >40 [facility] Comment on above: The drugs N-Acetylcy steine and Metamizole may falsely depress this assay. Reference Range HDL <40 mg/dL Low HDL Cholesterol HDL >or= 60 mg/dL High HDL Cholesterol Serum or plasma cholesterol in VLDL measurement (mass/volume)Ordered By: Dr. Gannon on 06-08-2022 Cholesterol in VLDL [Mass/Vol] 26 mg/dL 5-40 [facility] Serum or plasma creatinine m easurement (mass/volume)Ordered By: Dr. Gannon on 06-08-2022 Creatinine [Mass/Vol] 0.81 mg/dL 0.55-1.02 [facility] Comment on above: The validity of the calculated GFR & GFRAA in patients over 70 years has not been determined. Clinical correlation is essential. Serum or plasma low density lipoprotein (LDL) cholesterol measurement (mass/volume)Ordered By: Dr. Gannon on 06-08-2022 Cholesterol in LDL [Mass/Vol] 50 mg/dL 0-130 [facility] Serum or plasma urea nitroge n measurement (mass/volume)Ordered By: Dr. Gannon on 06-08-2022 Urea nitrogen [Mass/Vol] 15 mg/dL 7-18 [facility] Thin prep Papanicolaou smear with manual screeningOrdered By: Dr. Gannon on 06-08-2022 Thin prep Papanicolaou smear with manual screening 48 U/L 15-37 [facility] Thin prep Papanicolaou smear with manual screening 4 5-15 [facility] Whole blood hemoglobin A1c/t otal hemoglobin ratio (mass fraction)Ordered By: Dr. Gannon on 06-08-2022 HbA1c (Bld) [Mass fraction] 5.5 % 3.8-5.6 [facility] Comment on above: Normal < 5.7 % Predi abetic 5.7 - 6.4 % Diabetic >or= 6.5 % Please note range changes. INR in Blood by Coagulation assayOrdered By: ED PROVIDER on 06-07-2022 INR Coag (Bld) [Relative time] 1.0 {INR} [facility] Laboratory - Chemistry and C hemistry - challengeOrdered By: Dr. Gannon on 06-07-2022 Magnesium [Mass/Vol] 2.2 mg/dL 1.6-2.6 [facility] Laboratory - CoagulationOrde red By: ED PROVIDER on 06-07-2022 aPTT Coag (Bld) [Time] 28.7 s 24.1-36.2 [facility] PT Coag (PPP) [Time] 12.8 s 11.7-14.9 [facility] No Panel InformationOrdered By: Dr. Gannon on 06-07-2022 Troponin I High Sensitivity 6 pg/mL 3.0-54.0 [facility] Comment on above: Please Note: New Lyly t Units and Gender Specific Reference Ranges. For more information see Policy Stat Procedure [place] High Sensitivity Troponin (TNIH) and attachments. Basophil percentageon 2021 Bilirubin [Mass/Vol] 0.40 mg/dL 0.20-1.00 [facility] Work Phone: Comment on above: For patients on eltr ombopag therapy, use of Dimension [place] TBIL is not recommended. Chloride [Moles/Vol] 105 mmol/L 98-[address] [facility] Work Phone: [phone] Glucose [Mass/Vol] 91 mg/dL 74-106 [facility] Work Phone: [phone] Potassium [Moles/Vol] 4.2 mmol/L 3.5-5.[address] [facility] Work Phone: [phone] Protein [Mass/Vol] 6.7 g/dL 6.4-8.2 [facility] Work Phone: [phone] Sodium [Moles/Vol] 141 mmol/L 136-145 [facility] Work Phone: [phone] Laboratory - Chemistry and C hemistry - challengeon 12-27-2021 ALP [Catalytic activity/Vol] 61 U/L 45-117 [facility] Work Phone: [phone] ALT [Catalytic activity/Vol] 32 U/L 13-56 [facility] Work Phone: [phone] CO2 [Moles/Vol] 32.0 mmol/L 21.0-32.0 [facility] Work Phone: [phone] Globulin (S) [Mass/Vol] 3.3 g/dL 2.2-4.2 [facility] Work Phone: [phone] Urea nitrogen/Creatinine [Mass ratio] 14.4 mg/mg 10-20 [facility] Work Phone: [phone] No Panel Informationon 12-27 Estimated GFR (MDRD) Amer 74 mL/min >60 [facility] Work Phone: Comment on above: GFR Calc Estimated GFR (MDRD) Non-Af Amer 61 mL/min >60 [facility] Work Phone: Comment on above: Non- GFR Calc Thyroid Stimulating Hormone (TSH) 1.41 uIU/mL 0.358-3.74 [facility] Work Phone: [phone] Serum or plasma albumin tino urement (mass/volume)on 12-27-2021 Albumin [Mass/Vol] 3.4 g/dL 3.2-5.0 [facility] Work Phone: Serum or plasma albumin/glob ulin mass ratioon 12-27-2021 Albumin/Globulin [Mass ratio] 1.0 {ratio} 0.9-2.4 [facility] Work Phone: Serum or plasma calcium tino urement (mass/volume)on 12-27-2021 Calcium [Mass/Vol] 8.8 mg/dL 8.5-10.1 [facility] Work Phone: Serum or plasma creatinine m easurement (mass/volume)on 12-27-2021 Creatinine [Mass/Vol] 0.97 mg/dL 0.55-1.02 [facility] Work Phone: Comment on above: The validity of the calculated GFR & GFRAA in patients over 70 years has not been determined. Clinical correlation is essential. Serum or plasma urea nitroge n measurement (mass/volume)on 12-27-2021 Urea nitrogen [Mass/Vol] 14 mg/dL 7-18 [facility] Work Phone: Thin prep Papanicolaou smear with manual screeningon 12-27-2021 Thin prep Papanicolaou smear with manual screening 24 U/L 15-37 [facility] Work Phone: Thin prep Papanicolaou smear with manual screening 4 5-15 [facility] Work Phone: Absolute lymphocyte counton 12-13-2021 Lymphocytes Auto (Unsp spec) [#/Vol] 1.25 10*3/uL 0.83-4.51 [facility] Work Phone: Basophil percentageon 2021 Basophils/100 WBC (Bld) 1.0 % 0-1 [facility] Work Phone: Bilirubin [Mass/Vol] 0.20 mg/dL 0.20-1.00 [facility] Work Phone: Comment on above: For patients on eltr ombopag therapy, use of Dimension [place] TBIL is not recommended. Chloride [Moles/Vol] 110 mmol/L 98-107 [facility] Work Phone: Eosinophils/100 WBC (Bld) 3.2 % 0-5 [facility] Work Phone: Glucose [Mass/Vol] 89 mg/dL 74-106 [facility] Work Phone: Neutrophils (Bld) [#/Vol] 1.5 10*3/uL 2.0-7.7 [facility] Work Phone: Neutrophils/100 WBC (Bld) 46.4 % 47-70 [facility] Work Phone: Potassium [Moles/Vol] 4.7 mmol/L 3.5-5.1 [facility] Work Phone: Protein [Mass/Vol] 5.8 g/dL 6.4-8.2 [facility] Work Phone: Sodium [Moles/Vol] 141 mmol/L 136-145 [facility] Work Phone: WBC (Bld) [#/Vol] 3.1 10*3/uL 4.4-11.0 [facility] Work Phone: Blood erythrocytes count (nu mber/volume)on 12-13-2021 RBC (Bld) [#/Vol] 3.80 10*6/uL 4.2-5.4 [facility]: Blood hemoglobin measurement (mass/volume)on 12-13-2021 Hemoglobin (Bld) [Mass/Vol] 11.4 g/dL 12.0-15.0 [facility] Work Phone: Blood lymphocytes/100 leukoc yteson 12-13-2021 Lymphocytes/100 WBC (Bld) 40.1 % 19-41 [facility] Work Phone: Blood monocytes/100 leukocyt eson 12-13-2021 Monocytes/100 WBC (Bld) 9.0 % 0-10 [facility] Work Phone: Blood platelet mean volumeon 12-13-2021 Platelet mean volume (Bld) [Entitic vol] 9.4 fL 6.2-12.0 [facility] Work Phone: [phone] Determination of erythrocyte mean corpuscular volume (MCV)on 12-13-2021 MCV (RBC) [Entitic vol] 93.7 fL 81-99 [facility] Work Phone: Hematocrit Auto (Bld) [Volum e fraction]on 12-13-2021 Hematocrit (Bld) [Volume fraction] 35.6 % 37-47 [facility] Work Phone: [phone] Laboratory - Chemistry and C hemistry - challengeon 12-13-2021 ALP [Catalytic activity/Vol] 56 U/L 45-117 [facility] Work Phone: ALT [Catalytic activity/Vol] 25 U/L 13-56 [facility] Work Phone: CO2 [Moles/Vol] 28.0 mmol/L 21.0-32.0 [facility] Work Phone: [phone] Globulin (S) [Mass/Vol] 3.0 g/dL 2.2-4.2 [facility] Work Phone: [phone] Urea nitrogen/Creatinine [Mass ratio] 22.2 mg/mg 10-20 [facility] Work Phone: Laboratory - Hematology and Cell countson 12-13-2021 Erythrocyte distribution width (RBC) [Entitic vol] 45.4 fL 35.1-43.9 [facility] Work Phone: [phone] Erythrocyte distribution width (RBC) [Ratio] 13.2 % 11.6-14.6 [facility] Work Phone: [phone] Immature granulocytes/100 WBC (Bld) 0.300 % 0.0-0.9 [facility] Work Phone: [phone] Comment on above: IG% - Immature Granu locytes (promyelocytes, myelocytes and metamyelocytes) > 1% indicates that a LEFT SHIFT is Present. MCH (RBC) [Entitic mass] 30.0 pg 27.0-32.0 [facility] Work Phone: Nucleated RBC/100 WBC (Bld) [Ratio] 0 % 0-5 [facility] Work Phone: MCHC Auto (RBC) [Mass/Vol]on 12-13-2021 MCHC (RBC) [Mass/Vol] 32.0 g/dL 32-36 [facility] Work Phone: No Panel Informationon 12-13 Estimated Creatinine Clearance Calc 53.74 ml/min [facility] Work Phone: Estimated GFR (MDRD) Amer 72 mL/min >60 [facility] Work Phone: Comment on above: GFR Calc Estimated GFR (MDRD) Non-Af Amer 60 mL/min >60 [facility] Work Phone: Comment on above: Non- GFR Calc Platelets bldon 12-13-2021 Platelets (Bld) [#/Vol] 205 10*3/uL 150-450 [facility] Work Phone: Serum or plasma albumin tino urement (mass/volume)on 12-13-2021 Albumin [Mass/Vol] 2.8 g/dL 3.2-5.0 [facility] Work Phone: Serum or plasma albumin/glob ulin mass ratioon 12-13-2021 Albumin/Globulin [Mass ratio] 0.9 {ratio} 0.9-2.4 [facility] Work Phone: Serum or plasma calcium tino urement (mass/volume)on 12-13-2021 Calcium [Mass/Vol] 8.6 mg/dL 8.5-10.1 [facility] Work Phone: Serum or plasma creatinine m easurement (mass/volume)on 12-13-2021 Creatinine [Mass/Vol] 0.99 mg/dL 0.55-1.02 [facility] Work Phone: Comment on above: The validity of the calculated GFR & GFRAA in patients over 70 years has not been determined. Clinical correlation is essential. Serum or plasma urea nitroge n measurement (mass/volume)on 12-13-2021 Urea nitrogen [Mass/Vol] 22 mg/dL 7-18 [facility] Work Phone: Thin prep Papanicolaou smear with manual screeningon 12-13-2021 Thin prep Papanicolaou smear with manual screening 21 U/L 15-37 [facility] Work Phone: Thin prep Papanicolaou smear with manual screening 3 5-15 [facility] Work Phone: Whole blood hemoglobin A1c/t otal hemoglobin ratio (mass fraction)on 12-13-2021 HbA1c (Bld) [Mass fraction] 5.4 % 3.8-5.6 [facility] Work Phone: [phone] Comment on above: Normal < 5.7 % Predi abetic 5.7 - 6.4 % Diabetic >or= 6.5 % Please note range changes. Absolute lymphocyte counton 12-12-2021 Lymphocytes Auto (Unsp spec) [#/Vol] 1.28 10*3/uL 0.83-4.51 [facility] Work Phone: Basophil percentageon 2021 Basophils/100 WBC (Bld) 1.0 % 0-1 [facility] Work Phone: Chloride [Moles/Vol] 109 mmol/L 98-107 [facility] Work Phone: Eosinophils/100 WBC (Bld) 2.5 % 0-5 [facility] Work Phone: Glucose [Mass/Vol] 88 mg/dL 74-[address] [facility] Work Phone: Lactate [Moles/Vol] 0.9 mmol/L 0.4-2.[address] [facility] [address] [facility] Work Phone: Neutrophils (Bld) [#/Vol] 2.3 10*3/uL 2.0-7.7 [facility] Work Phone: Neutrophils/100 WBC (Bld) 56.1 % 47-70 [facility] Work Phone: Potassium [Moles/Vol] 4.6 mmol/L 3.5-5.[address] [facility] Work Phone: Sodium [Moles/Vol] 141 mmol/L 136-[address] [facility] [address] [facility] Work Phone: WBC (Bld) [#/Vol] 4.1 10*3/uL 4.4-11.0 [facility] Work Phone: Blood erythrocytes count (nu mber/volume)on 12-12-2021 RBC (Bld) [#/Vol] 4.37 10*6/uL 4.2-5.[address] [facility] [address] [facility] Work Phone: Blood hemoglobin measurement (mass/volume)on 12-12-2021 Hemoglobin (Bld) [Mass/Vol] 13.1 g/dL 12.0-15.0 [facility] Work Phone: Blood lymphocytes/100 leukoc yteson 12-12-2021 Lymphocytes/100 WBC (Bld) 31.4 % 19-41 [facility] Work Phone: Blood monocytes/100 leukocyt eson 12-12-2021 Monocytes/100 WBC (Bld) 8.8 % 0-10 [facility] Work Phone: Blood platelet mean volumeon 12-12-2021 Platelet mean volume (Bld) [Entitic vol] 9.0 fL 6.2-12.0 [facility] Work Phone: Determination of erythrocyte mean corpuscular volume (MCV)on 12-12-2021 MCV (RBC) [Entitic vol] 92.9 fL 81-99 [facility] Work Phone: Erythrocyte sedimentation ra jaison 12-12-2021 ESR (Bld) [Velocity] 19 mm/h 0-30 [facility] Work Phone: Hematocrit Auto (Bld) [Volum e fraction]on 12-12-2021 Hematocrit (Bld) [Volume fraction] 40.6 % 37-47 [facility] Work Phone: [phone] Laboratory - Chemistry and C hemistry - challengeon 12-12-2021 CO2 [Moles/Vol] 29.0 mmol/L 21.0-32.0 [facility] Work Phone: Urea nitrogen/Creatinine [Mass ratio] 18.8 mg/mg 10-20 [facility] Work Phone: Laboratory - Hematology and Cell countson 12-12-2021 Erythrocyte distribution width (RBC) [Entitic vol] 44.9 fL 35.1-43.9 [facility] Work Phone: Erythrocyte distribution width (RBC) [Ratio] 13.1 % 11.6-14.6 [facility] Work Phone: Immature granulocytes/100 WBC (Bld) 0.200 % 0.0-0.9 [facility] Work Phone: Comment on above: IG% - Immature Granu locytes (promyelocytes, myelocytes and metamyelocytes) > 1% indicates that a LEFT SHIFT is Present. MCH (RBC) [Entitic mass] 30.0 pg 27.0-32.0 [facility] Work Phone: Nucleated RBC/100 WBC (Bld) [Ratio] 0 % 0-5 [facility] Work Phone: MCHC Auto (RBC) [Mass/Vol]on 12-12-2021 MCHC (RBC) [Mass/Vol] 32.3 g/dL 32-36 [facility] Work Phone: No Panel Informationon 12-12 Methicillin-Resist S.aureus DNA PCR Negative Negative [facility] Work Phone: Estimated Creatinine Clearance Calc 45.47 ml/min [facility] Work Phone: Estimated GFR (MDRD) Amer 60 mL/min >60 [facility] Work Phone: Comment on above: GFR Calc Estimated GFR (MDRD) Non-Af Amer 49 mL/min >60 [facility] Work Phone: Comment on above: Non- GFR Calc Platelets bldon 12-12-2021 Platelets (Bld) [#/Vol] 213 10*3/uL 150-450 [facility] Work Phone: Serum or plasma C reactive p rotein measurement (mass/volume)on 12-12-2021 CRP [Mass/Vol] 14.20 mg/L 0.0-3.0 [facility] Work Phone: Comment on above: C-Reactive Protein ( CRP) provides useful information for thediagnosis, therapy and monitoring of inflammatory processesand associated diseases. For the evaluation of Relative Riskfor Cardiovascular Disease, a High Sensitivity CRP (HSCRP)should be ordered. Serum or plasma calcium tino urement (mass/volume)on 12-12-2021 Calcium [Mass/Vol] 9.3 mg/dL 8.5-10.1 [facility] Work Phone: Serum or plasma creatinine m easurement (mass/volume)on 12-12-2021 Creatinine [Mass/Vol] 1.17 mg/dL 0.55-1.02 [facility] Work Phone: Comment on above: The validity of the calculated GFR & GFRAA in patients over 70 years has not been determined. Clinical correlation is essential. Serum or plasma urea nitroge n measurement (mass/volume)on 12-12-2021 Urea nitrogen [Mass/Vol] 22 mg/dL 7-18 [facility] Work Phone: Staphylococcus aureus DNA de tection by probe and target amplification methodon 12-12-2021 S. aureus DNA KEN+probe Ql (Unsp spec) Negative Negative [facility] Work Phone: Thin prep Papanicolaou smear with manual screeningon 12-12-2021 Thin prep Papanicolaou smear with manual screening 3 5-15 [facility] Work Phone: Absolute lymphocyte counton 11-01-2021 Lymphocytes Auto (Unsp spec) [#/Vol] 1.13 10*3/uL 0.83-4.51 [facility] Work Phone: Basophil percentageon 2021 Basophils/100 WBC (Bld) 1.1 % 0-1 [facility] Work Phone: Chloride [Moles/Vol] 112 mmol/L 98-107 [facility]: Eosinophils/100 WBC (Bld) 2.3 % 0-5 [facility] Work Phone: Glucose [Mass/Vol] 90 mg/dL 74-106 [facility] Work Phone: Neutrophils (Bld) [#/Vol] 2.0 10*3/uL 2.0-7.7 [facility] Work Phone: Neutrophils/100 WBC (Bld) 56.0 % 47-70 [facility] Work Phone: Potassium [Moles/Vol] 4.5 mmol/L 3.5-5.1 [facility] Work Phone: Sodium [Moles/Vol] 141 mmol/L 136-145 [facility] Work Phone: WBC (Bld) [#/Vol] 3.5 10*3/uL 4.4-11.0 [facility] Work Phone: Blood erythrocytes count (nu mber/volume)on 11-01-2021 RBC (Bld) [#/Vol] 4.61 10*6/uL 4.2-5.4 [facility] Work Phone: Blood hemoglobin measurement (mass/volume)on 11-01-2021 Hemoglobin (Bld) [Mass/Vol] 13.8 g/dL 12.0-15.0 [facility] Work Phone: Blood lymphocytes/100 leukoc yteson 11-01-2021 Lymphocytes/100 WBC (Bld) 32.1 % 19-41 [facility] Work Phone: Blood monocytes/100 leukocyt eson 11-01-2021 Monocytes/100 WBC (Bld) 8.2 % 0-10 [facility] Work Phone: Blood platelet mean volumeon 11-01-2021 Platelet mean volume (Bld) [Entitic vol] 8.6 fL 6.2-12.0 [facility] Work Phone: Determination of erythrocyte mean corpuscular volume (MCV)on 11-01-2021 MCV (RBC) [Entitic vol] 92.8 fL 81-99 [facility] Work Phone: [phone] Hematocrit Auto (Bld) [Volum e fraction]on 11-01-2021 Hematocrit (Bld) [Volume fraction] 42.8 % 37-47 [facility] Work Phone: [phone] Laboratory - Chemistry and C hemistry - challengeon 11-01-2021 CO2 [Moles/Vol] 28.0 mmol/L 21.0-32.0 [facility] Work Phone: Urea nitrogen/Creatinine [Mass ratio] 16.9 mg/mg 10-20 [facility] Work Phone: [phone] Laboratory - Hematology and Cell countson 11-01-2021 Erythrocyte distribution width (RBC) [Entitic vol] 45.1 fL 35.1-43.9 [facility] Work Phone: [phone] Erythrocyte distribution width (RBC) [Ratio] 13.2 % 11.6-14.6 [facility] Work Phone: [phone] Immature granulocytes/100 WBC (Bld) 0.300 % 0.0-0.9 [facility] Work Phone: [phone] Comment on above: IG% - Immature Granu locytes (promyelocytes, myelocytes and metamyelocytes) > 1% indicates that a LEFT SHIFT is Present. MCH (RBC) [Entitic mass] 29.9 pg 27.0-32.0 [facility] Work Phone: [phone] Nucleated RBC/100 WBC (Bld) [Ratio] 0 % 0-5 [facility] Work Phone: [phone] MCHC Auto (RBC) [Mass/Vol]on 11-01-2021 MCHC (RBC) [Mass/Vol] 32.2 g/dL 32-36 [facility] Work Phone: [phone] No Panel Informationon 11-01 Estimated Creatinine Clearance Calc 59.78 ml/min [facility] Work Phone: Estimated GFR (MDRD) Amer 83 mL/min >60 [facility] Work Phone: Comment on above: GFR Calc Estimated GFR (MDRD) Non-Af Amer 68 mL/min >60 [facility] Work Phone: Comment on above: Non- GFR Calc Platelets bldon 11-01-2021 Platelets (Bld) [#/Vol] 208 10*3/uL 150-450 [facility] Work Phone: Serum or plasma calcium tino urement (mass/volume)on 11-01-2021 Calcium [Mass/Vol] 8.8 mg/dL 8.5-10.1 [facility] Work Phone: Serum or plasma creatinine m easurement (mass/volume)on 11-01-2021 Creatinine [Mass/Vol] 0.89 mg/dL 0.55-1.02 [facility] Work Phone: Comment on above: The validity of the calculated GFR & GFRAA in patients over 70 years has not been determined. Clinical correlation is essential. Serum or plasma urea nitroge n measurement (mass/volume)on 11-01-2021 Urea nitrogen [Mass/Vol] 15 mg/dL 7-18 [facility] Work Phone: Thin prep Papanicolaou smear with manual screeningon 11-01-2021 Thin prep Papanicolaou smear with manual screening 1 5-15 [facility] Work Phone: Absolute lymphocyte counton 07-10-2021 Lymphocytes Auto (Unsp spec) [#/Vol] 1.05 10*3/uL 0.83-4.51 [facility] Work Phone: Basophil percentageon 2021 Basophils/100 WBC (Bld) 0.8 % 0-1 [facility] Work Phone: Chloride [Moles/Vol] 110 mmol/L 98-107 [facility] Work Phone: Eosinophils/100 WBC (Bld) 2.6 % 0-5 [facility] Work Phone: Glucose [Mass/Vol] 98 mg/dL 74-106 [facility] Work Phone: Neutrophils (Bld) [#/Vol] 2.4 10*3/uL 2.0-7.7 [facility] Work Phone: Neutrophils/100 WBC (Bld) 61.9 % 47-70 [facility] Work Phone: Potassium [Moles/Vol] 3.9 mmol/L 3.5-5.1 [facility] Work Phone: Sodium [Moles/Vol] 143 mmol/L 136-145 [facility] Work Phone: WBC (Bld) [#/Vol] 3.8 10*3/uL 4.4-11.0 [facility] Work Phone: Blood erythrocytes count (nu mber/volume)on 07-10-2021 RBC (Bld) [#/Vol] 4.19 10*6/uL 4.2-5.4 [facility] Work Phone: Blood hemoglobin measurement (mass/volume)on 07-10-2021 Hemoglobin (Bld) [Mass/Vol] 13.3 g/dL 12.0-15.0 [facility] Work Phone: Blood lymphocytes/100 leukoc yteson 07-10-2021 Lymphocytes/100 WBC (Bld) 27.6 % 19-41 [facility] Work Phone: Blood monocytes/100 leukocyt eson 07-10-2021 Monocytes/100 WBC (Bld) 6.8 % 0-10 [facility] Work Phone: Blood platelet mean volumeon 07-10-2021 Platelet mean volume (Bld) [Entitic vol] 9.0 fL 6.2-12.0 [facility] Work Phone: [phone] Determination of erythrocyte mean corpuscular volume (MCV)on 07-10-2021 MCV (RBC) [Entitic vol] 94.5 fL 81-99 [facility] Work Phone: Hematocrit Auto (Bld) [Volum e fraction]on 07-10-2021 Hematocrit (Bld) [Volume fraction] 39.6 % 37-47 [facility] Work Phone: Laboratory - Chemistry and C hemistry - challengeon 07-10-2021 CO2 [Moles/Vol] 30.0 mmol/L 21.0-32.0 [facility] Work Phone: Urea nitrogen/Creatinine [Mass ratio] 13.2 mg/mg 10-20 [facility] Work Phone: Laboratory - Hematology and Cell countson 07-10-2021 Erythrocyte distribution width (RBC) [Entitic vol] 44.8 fL 35.1-43.9 [facility] Work Phone: Erythrocyte distribution width (RBC) [Ratio] 12.9 % 11.6-14.6 [facility] Work Phone: Immature granulocytes/100 WBC (Bld) 0.300 % 0.0-0.9 [facility] Work Phone: Comment on above: IG% - Immature Granu locytes (promyelocytes, myelocytes and metamyelocytes) > 1% indicates that a LEFT SHIFT is Present. MCH (RBC) [Entitic mass] 31.7 pg 27.0-32.0 [facility] Work Phone: Nucleated RBC/100 WBC (Bld) [Ratio] 0 % 0-5 [facility] Work Phone: MCHC Auto (RBC) [Mass/Vol]on 07-10-2021 MCHC (RBC) [Mass/Vol] 33.6 g/dL 32-36 [facility] Work Phone: No Panel Informationon 07-10 Estimated Creatinine Clearance Calc 49.85 ml/min [facility] Work Phone: Estimated GFR (MDRD) Amer 73 mL/min >60 [facility] Work Phone: Comment on above: GFR Calc Estimated GFR (MDRD) Non-Af Amer 60 mL/min >60 [facility] Work Phone: Comment on above: Non- GFR Calc SARS-CoV-2 Antigen (Rapid) [facility] Work Phone: Platelets bldon 07-10-2021 Platelets (Bld) [#/Vol] 188 10*3/uL 150-450 [facility] Work Phone: Serum or plasma calcium tino urement (mass/volume)on 07-10-2021 Calcium [Mass/Vol] 8.7 mg/dL 8.5-10.[address] [facility] Work Phone: Serum or plasma creatinine m easurement (mass/volume)on 07-10-2021 Creatinine [Mass/Vol] 0.99 mg/dL 0.55-1.02 [facility] Work Phone: Comment on above: The validity of the calculated GFR & GFRAA in patients over 70 years has not been determined. Clinical correlation is essential. Serum or plasma urea nitroge n measurement (mass/volume)on 07-10-2021 Urea nitrogen [Mass/Vol] 13 mg/dL 7-18 [facility] Work Phone: Thin prep Papanicolaou smear with manual screeningon 07-10-2021 Thin prep Papanicolaou smear with manual screening 3 5-15 [facility] Work Phone: Absolute lymphocyte counton 07-06-2021 Lymphocytes Auto (Unsp spec) [#/Vol] 1.10 10*3/uL 0.83-4.51 [facility] Work Phone: Basophil percentageon 2021 Basophils/100 WBC (Bld) 0.7 % 0-1 [facility] Work Phone: Chloride [Moles/Vol] 104 mmol/L 98-107 [facility] Work Phone: Cholesterol [Mass/Vol] 184 mg/dL <[address] [facility] Work Phone: Comment on above: <200 mg/dL Desirable 200-240 mg/dL Borderline >240 mg/dL High Risk Eosinophils/100 WBC (Bld) 1.7 % 0-5 [facility] Work Phone: Glucose [Mass/Vol] 88 mg/dL 74-106 [facility] Work Phone: Neutrophils (Bld) [#/Vol] 2.7 10*3/uL 2.0-7.7 [facility] Work Phone: Neutrophils/100 WBC (Bld) 63.7 % 47-70 [facility] Work Phone: Potassium [Moles/Vol] 4.1 mmol/L 3.5-5.1 [facility] Work Phone: Sodium [Moles/Vol] 138 mmol/L 136-145 [facility] Work Phone: Triglyceride [Mass/Vol] 91 mg/dL [facility] Work Phone: [phone] Comment on above: The drugs N-Acetylcy steine and Metamizole may falsely depress this assay.Serum Triglycerides Reference Interval Normal <150 mg/dL Borderline high 150 - 199 mg/dL High 200 - 499 mg/dL Very High > or = 500 mg/dL WBC (Bld) [#/Vol] 4.2 10*3/uL 4.4-11.0 [facility] Work Phone: [phone] Blood erythrocytes count (nu mber/volume)on 07-06-2021 RBC (Bld) [#/Vol] 4.78 10*6/uL 4.2-5.4 [facility] Work Phone: Blood hemoglobin measurement (mass/volume)on 07-06-2021 Hemoglobin (Bld) [Mass/Vol] 14.8 g/dL 12.0-15.0 [facility] Work Phone: Blood lymphocytes/100 leukoc yteson 07-06-2021 Lymphocytes/100 WBC (Bld) 26.4 % 19-41 [facility] Work Phone: Blood monocytes/100 leukocyt eson 07-06-2021 Monocytes/100 WBC (Bld) 7.0 % 0-10 [facility] Work Phone: Blood platelet mean volumeon 07-06-2021 Platelet mean volume (Bld) [Entitic vol] 9.3 fL 6.2-12.0 [facility] Work Phone: Determination of erythrocyte mean corpuscular volume (MCV)on 07-06-2021 MCV (RBC) [Entitic vol] 93.7 fL 81-99 [facility] Work Phone: [phone] Hematocrit Auto (Bld) [Volum e fraction]on 07-06-2021 Hematocrit (Bld) [Volume fraction] 44.8 % 37-47 [facility] Work Phone: Laboratory - Chemistry and C hemistry - challengeon 07-06-2021 CO2 [Moles/Vol] 28.0 mmol/L 21.0-32.0 [facility] Work Phone: Urea nitrogen/Creatinine [Mass ratio] 19.8 mg/mg 10-20 [facility] Work Phone: [phone] Laboratory - Hematology and Cell countson 07-06-2021 Erythrocyte distribution width (RBC) [Entitic vol] 43.6 fL 35.1-43.9 [facility] Work Phone: [phone] Erythrocyte distribution width (RBC) [Ratio] 12.7 % 11.6-14.6 [facility] Work Phone: [phone] Immature granulocytes/100 WBC (Bld) 0.500 % 0.0-0.9 [facility] Work Phone: Comment on above: IG% - Immature Granu locytes (promyelocytes, myelocytes and metamyelocytes) > 1% indicates that a LEFT SHIFT is Present. MCH (RBC) [Entitic mass] 31.0 pg 27.0-32.0 [facility] Work Phone: [phone] Nucleated RBC/100 WBC (Bld) [Ratio] 0 % 0-5 [facility] Work Phone: [phone] MCHC Auto (RBC) [Mass/Vol]on 07-06-2021 MCHC (RBC) [Mass/Vol] 33.0 g/dL 32-36 [facility] Work Phone: No Panel Informationon 07-06 Estimated GFR (MDRD) Amer 71 mL/min >60 [facility] Work Phone: Comment on above: GFR Calc Estimated GFR (MDRD) Non-Af Amer 59 mL/min >60 [facility] Work Phone: Comment on above: Non- GFR Calc Platelets bldon 07-06-2021 Platelets (Bld) [#/Vol] 226 10*3/uL 150-450 [facility] Work Phone: Serum or plasma calcium tino urement (mass/volume)on 07-06-2021 Calcium [Mass/Vol] 9.2 mg/dL 8.5-10.1 [facility] Work Phone: Serum or plasma cholesterol in HDL measurement (mass/volume)on 07-06-2021 Cholesterol in HDL [Mass/Vol] 92 mg/dL [facility] Work Phone: Comment on above: The drugs N-Acetylcy steine and Metamizole may falsely depress this assay. Reference Range HDL <40 mg/dL Low HDL Cholesterol HDL >or= 60 mg/dL High HDL Cholesterol Serum or plasma cholesterol in VLDL measurement (mass/volume)on 07-06-2021 Cholesterol in VLDL [Mass/Vol] 18 mg/dL 5-40 [facility] Work Phone: Serum or plasma creatinine m easurement (mass/volume)on 07-06-2021 Creatinine [Mass/Vol] 1.01 mg/dL 0.55-1.02 [facility] Work Phone: Comment on above: The validity of the calculated GFR & GFRAA in patients over 70 years has not been determined. Clinical correlation is essential. Serum or plasma low density lipoprotein (LDL) cholesterol measurement (mass/volume)on 07-06-2021 Cholesterol in LDL [Mass/Vol] 74 mg/dL 0-130 [facility] Work Phone: Serum or plasma urea nitroge n measurement (mass/volume)on 07-06-2021 Urea nitrogen [Mass/Vol] 20 mg/dL 7-18 [facility] Work Phone: Thin prep Papanicolaou smear with manual screeningon 07-06-2021 Thin prep Papanicolaou smear with manual screening 6 5-15 [facility] Work Phone: Stress Test Reporton 019 Stress Test Report Patient: TEMITOPE GAONA Age: 63 years Sex: Female : 1955 Associated Diagnoses: None Author: MARIAM SHERMAN, GIANCARLO Exam Indication: Chest pain Date of Exam: 03/05/2019 Referring Physician: Cheryl Nieves Clinical History: 63 yr old lady with remote CVA,HTN and HLD comes with atypical chest pain Procedure: The supervising paving bed maker, Dr Daniele Tai, reviewed the patient's baseline [...] 03/05/2019 Date of Final Report: 03/06/2019 Normal [facility] Stress Test Reporton 019 Stress Test Report [...] of Final Report: March 05, 2019 Normal [facility] Vital Signs Date Time Vital Sign Value Performing Clinician Faci lity 01-31-2025 21:23-0400 Body temperature 98 [degF] Dr. Bird Ronquillo MD Work Phone: [facility] 01-31-2025 21:23-0400 Diastolic blood pressure 97 mm[Hg] Dr. Bird Ronquillo MD Work Phone: [facility] 01-31-2025 21:23-0400 Heart rate 65 /min Dr. Bird Ronquillo MD Work Phone: 9(176)388-090390 [place] [address] 01-31-2025 21:23-0400 Respiratory rate 18 /min Dr. Bird Ronquillo MD Work Phone: 8(906)277-230990 [place] [address] 01-31-2025 21:23-0400 SaO2% (BldA) [Mass fraction] 95 % Dr. Bird Ronquillo MD Work Phone: 0(123)600-169590 [place] [address] 01-31-2025 21:23-0400 Systolic blood pressure 165 mm[Hg] Dr. Bird Ronquillo MD Work Phone: 5(756)724-475490 [place] [address] 01-31-2025 21:00-0400 Inhaled oxygen flow rate 2 L/min Dr. Bird Ronquillo MD Work Phone: 9(964)597-075390 [place] [address] 01-31-2025 17:53-0400 Body height 167.[address] Bird Ronquillo MD Work Phone: 3(777)753-696090 [place] [address] 01-31-2025 17:53-0400 Body mass index (BMI) [Ratio] 28.7 kg/m2 Dr. Bird Ronquillo MD Work Phone: 9(083)497-660390 [place] [address] 01-31-2025 17:53-0400 Body weight 80.[address] Bird Ronquillo MD Work Phone: 7(943)539-956290 [place] [address] 01-19-2025 18:52-0400 Body temperature 98.4 [degF] Dr. Bird Ronquillo MD Work Phone: 3(399)973-989990 [place] [address] 01-19-2025 18:52-0400 Diastolic blood pressure 74 mm[Hg] Dr. Bird Ronquillo MD Work Phone: 0(284)648-218890 [place] [address] 01-19-2025 18:52-0400 Heart rate 71 /min Dr. Bird Ronquillo MD Work Phone: 2(941)543-705190 [place] [address] 01-19-2025 18:52-0400 Respiratory rate 18 /min Dr. Bird Ronquillo MD Work Phone: 6(312)381-776590 [place] [address] 01-19-2025 18:52-0400 SaO2% (BldA) [Mass fraction] 97 % Dr. Bird Ronquillo MD Work Phone: 7(874)242-298990 [place] [address] 01-19-2025 18:52-0400 Systolic blood pressure 137 mm[Hg] Dr. Bird Ronquillo MD Work Phone: 4(315)152-785390 [place] [address] 01-19-2025 15:33-0400 Body height 167.[address] Bird Ronquillo MD Work Phone: 3(218)774-902190 [place] [address] 01-19-2025 15:33-0400 Body mass index (BMI) [Ratio] 28 kg/m2 Dr. Bird Ronquillo MD Work Phone: 3(471)387-724790 [place] [address] 01-19-2025 15:33-0400 Body weight 78.[address] Bird Ronquillo MD Work Phone: 1(612)491-460490 [place] [address] 12-05-2024 08:46-0400 Body height 167.[address] Bird Ronquillo MD Work Phone: 0(054)834-056390 [place] [address] 12-05-2024 08:46-0400 Body mass index (BMI) [Ratio] 28.4 kg/m2 Dr. Bird Ronquillo MD Work Phone: 5(316)643-776290 [place] [address] 12-05-2024 08:46-0400 Body temperature 97.4 [degF] Dr. Bird Ronquillo MD Work Phone: 2(318)360-520290 [place] [address] 12-05-2024 08:46-0400 Body weight 79.[address] Bird Ronquillo MD Work Phone: 9(122)022-678190 [place] [address] 12-05-2024 08:46-0400 Diastolic blood pressure 81 mm[Hg] Dr. Bird Ronquillo MD Work Phone: 4(893)698-475990 [place] [address] 12-05-2024 08:46-0400 Heart rate 66 /min Dr. Bird Ronquillo MD Work Phone: 6(809)673-322190 [place] [address] 12-05-2024 08:46-0400 Respiratory rate 16 /min Dr. Bird Ronquillo MD Work Phone: 4(244)887-319390 [place] [address] 12-05-2024 08:46-0400 SaO2% (BldA) [Mass fraction] 95 % Dr. Bird Ronquillo MD Work Phone: [facility] 12-05-2024 08:46-0400 Systolic blood pressure 136 mm[Hg] Dr. Bird Ronquillo MD Work Phone: [facility] 10-23-2024 10:27-0400 Body mass index (BMI) [Ratio] 28.12 kg/m2 Tatiana Ronquillo MD Work Phone: [facility] 10-23-2024 10:27-0400 Body temperature 96.8 [degF] Tatiana Ronquillo MD Work Phone: [facility] 10-23-2024 10:27-0400 Body weight 79.02 kg Tatiana Ronquillo MD Work Phone: [facility] 10-23-2024 10:27-0400 Diastolic blood pressure 72 mm[Hg] Tatiana Ronquillo MD Work Phone: [facility] 10-23-2024 10:27-0400 Heart rate 65 /min Tatiana Ronquillo MD Work Phone: [facility] 10-23-2024 10:27-0400 Respiratory rate 16 /min Tatiana Ronquillo MD Work Phone: [facility] 10-23-2024 10:27-0400 SaO2% (BldA) [Mass fraction] 96 % Tatiana Ronquillo MD Work Phone: [facility] 10-23-2024 10:27-0400 Systolic blood pressure 136 mm[Hg] Tatiana Ronquillo MD Work Phone: [facility] 10-13-2024 21:24-0400 Body temperature 98.6 [degF] Dr. Bird Ronquillo MD Work Phone: [facility] 10-13-2024 21:24-0400 Diastolic blood pressure 78 mm[Hg] Dr. Bird Ronquillo MD Work Phone: 7(751)414-207590 [place] [address] 10-13-2024 21:24-0400 Heart rate 78 /min Dr. Bird Ronquillo MD Work Phone: 5(085)483-084790 [place] [address] 10-13-2024 21:24-0400 Respiratory rate 19 /min Dr. Bird Ronquillo MD Work Phone: 7(753)548-009190 [place] [address] 10-13-2024 21:24-0400 SaO2% (BldA) [Mass fraction] 90 % Dr. Bird Ronquillo MD Work Phone: 3(795)136-109590 [place] [address] 10-13-2024 21:24-0400 Systolic blood pressure 152 mm[Hg] Dr. Bird Ronquillo MD Work Phone: 1(964)267-757690 [place] [address] 10-13-2024 20:19-0400 Inhaled oxygen flow rate 2 L/min Dr. Bird Ronquillo MD Work Phone: 3(085)333-851190 [place] [address] 10-13-2024 17:06-0400 Body height 167.[address] Bird Ronquillo MD Work Phone: 0(327)645-080790 [place] [address] 10-13-2024 17:06-0400 Body mass index (BMI) [Ratio] 28.3 kg/m2 Dr. Bird Ronquillo MD Work Phone: 4(387)879-767290 [place] [address] 10-13-2024 17:06-0400 Body weight 79.[address] Bird Ronquillo MD Work Phone: 7(691)876-419990 [place] [address] 09-30-2024 10:39-0400 Body temperature 97.9 [degF] Dr. Bird Ronquillo MD Work Phone: 7(330)202-337090 [place] [address] 09-30-2024 10:39-0400 Diastolic blood pressure 72 mm[Hg] Dr. Bird Ronquillo MD Work Phone: 2(899)896-508590 [place] [address] 09-30-2024 10:39-0400 Heart rate 64 /min Dr. Bird Ronquillo MD Work Phone: 1(862)101-080490 [place] [address] 09-30-2024 10:39-0400 Respiratory rate 18 /min Dr. Bird Ronquillo MD Work Phone: [facility] 09-30-2024 10:39-0400 SaO2% (BldA) [Mass fraction] 99 % Dr. Bird Ronquillo MD Work Phone: [facility] 09-30-2024 10:39-0400 Systolic blood pressure 136 mm[Hg] Dr. Bird Ronquillo MD Work Phone: [facility] 09-30-2024 07:29-0400 Body mass index (BMI) [Ratio] 28.3 kg/m2 Dr. Bird Ronquillo MD Work Phone: [facility] 09-30-2024 07:29-0400 Body weight 79.[address] Bird Ronquillo MD Work Phone: [facility] 08-06-2024 13:17-0400 Body mass index (BMI) [Ratio] 28.12 kg/m2 Shavonne Podlogar [employer] Work Phone: [facility] 08-06-2024 13:17-0400 Body weight 79.02 kg Shavonne Podlogar [employer] Work Phone: [facility] 08-06-2024 13:17-0400 Diastolic blood pressure 90 mm[Hg] Shavonne Podlogar [employer] Work Phone: [facility] 08-06-2024 13:17-0400 Heart rate 64 /min Shavonne Podlogar [employer] Work Phone: [facility] 08-06-2024 13:17-0400 Respiratory rate 18 /min Shavonne Podlogar [employer] Work Phone: [facility] 08-06-2024 13:17-0400 SaO2% (BldA) [Mass fraction] 95 % Shavonne Podlogar [employer] Work Phone: [facility] 08-06-2024 13:17-0400 Systolic blood pressure 152 mm[Hg] Shavonne Podlogar [employer] Work Phone: 0(804)085-972993 [place] [address] 07-31-2024 19:32-0500 Body temperature 97.9 [degF] Dr. Bird Ronquillo MD Work Phone: 0(915)721-142290 [place] [address] 07-31-2024 19:32-0500 Diastolic blood pressure 66 mm[Hg] Dr. Bird Ronquillo MD Work Phone: 2(896)158-934190 [place] [address] 07-31-2024 19:32-0500 Heart rate 71 /min Dr. Bird Ronquillo MD Work Phone: 5(220)828-807890 [place] [address] 07-31-2024 19:32-0500 Respiratory rate 16 /min Dr. Bird Ronquillo MD Work Phone: 9(025)658-835390 [place] [address] 07-31-2024 19:32-0500 SaO2% (BldA) [Mass fraction] 99 % Dr. Bird Ronquillo MD Work Phone: 8(751)860-304890 [place] [address] 07-31-2024 19:32-0500 Systolic blood pressure 128 mm[Hg] Dr. Bird Ronquillo MD Work Phone: 9(026)390-906390 [place] [address] 07-31-2024 14:57-0500 Body mass index (BMI) [Ratio] 27.1 kg/m2 Dr. Bird Ronquillo MD Work Phone: 8(008)427-635790 [place] [address] 07-31-2024 14:57-0500 Body weight 76.[address] Bird Ronquillo MD Work Phone: 7(795)107-348690 [place] [address] 07-19-2024 23:53-0500 Diastolic blood pressure 59 mm[Hg] Dr. Bird Ronquillo MD Work Phone: 8(739)790-618390 [place] [address] 07-19-2024 23:53-0500 Heart rate 61 /min Dr. Bird Ronquillo MD Work Phone: 2(305)353-379490 [place] [address] 07-19-2024 23:53-0500 Respiratory rate 19 /min Dr. Bird Ronquillo MD Work Phone: 4(158)648-760090 [place] [address] 07-19-2024 23:53-0500 SaO2% (BldA) [Mass fraction] 92 % Dr. Bird Ronquillo MD Work Phone: [facility] 07-19-2024 23:53-0500 Systolic blood pressure 147 mm[Hg] Dr. Bird Ronquillo MD Work Phone: [facility] 07-19-2024 21:24-0500 Body temperature 97.8 [degF] Dr. Bird Ronquillo MD Work Phone: [facility] 07-19-2024 21:24-0500 Inhaled oxygen flow rate 2 L/min Dr. Bird Ronquillo MD Work Phone: [facility] 07-11-2024 11:25-0500 Body temperature 100.71 [degF] Moraima Solano [employer] Work Phone: [facility] 07-11-2024 11:25-0500 Diastolic blood pressure 71 mm[Hg] Moraima Solano [employer] Work Phone: [facility] 07-11-2024 11:25-0500 Heart rate 80 /min Moraima Solano [employer] Work Phone: [facility] 07-11-2024 11:25-0500 Respiratory rate 16 /min Moraima Solano [employer] Work Phone: [facility] 07-11-2024 11:25-0500 SaO2% (BldA) [Mass fraction] 93 % Moraima Solano [employer] Work Phone: [facility] 07-11-2024 11:25-0500 Systolic blood pressure 119 mm[Hg] Moraima Solano [employer] Work Phone: [facility] 05-20-2024 12:02-0500 Body mass index (BMI) [Ratio] 28.18 kg/m2 Tatiana Ronquillo MD Work Phone: [facility] 05-20-2024 12:02-0500 Body weight 79.2 kg Tatiana Ronquillo MD Work Phone: [facility] 05-20-2024 12:02-0500 Diastolic blood pressure 72 mm[Hg] Tatiana Ronquillo MD Work Phone: [facility] 05-20-2024 12:02-0500 Heart rate 65 /min Tatiana Ronquillo MD Work Phone: [facility] 05-20-2024 12:02-0500 Respiratory rate 16 /min Tatiana Ronquillo MD Work Phone: [facility] 05-20-2024 12:02-0500 SaO2% (BldA) [Mass fraction] 97 % Tatiana Ronquillo MD Work Phone: [facility] 05-20-2024 12:02-0500 Systolic blood pressure 128 mm[Hg] Tatiana Ronquillo MD Work Phone: [facility] 04-29-2024 12:02-0500 Body mass index (BMI) [Ratio] 28.15 kg/m2 Tatiana Ronquillo MD Work Phone: [facility] 04-29-2024 12:02-0500 Body weight 79.11 kg Tatiana Ronquillo MD Work Phone: [facility] 04-29-2024 12:02-0500 Diastolic blood pressure 72 mm[Hg] Tatiana Ronquillo MD Work Phone: [facility] 04-29-2024 12:02-0500 Heart rate 62 /min Tatiana Ronquillo MD Work Phone: [facility] 04-29-2024 12:02-0500 Respiratory rate 18 /min Tatiana Ronquillo MD Work Phone: [facility] 04-29-2024 12:02-0500 SaO2% (BldA) [Mass fraction] 95 % Tatiana Ronquillo MD Work Phone: [facility] 04-29-2024 12:02-0500 Systolic blood pressure 132 mm[Hg] Tatiana Ronquillo MD Work Phone: [facility] 04-18-2024 11:57-0500 Body mass index (BMI) [Ratio] 27.6 kg/m2 Sabine Crowley [employer] Work Phone: [facility] 04-18-2024 11:57-0500 Body weight 77.56 kg Sabine Crowley [employer] Work Phone: [facility] 04-18-2024 11:57-0500 Diastolic blood pressure 75 mm[Hg] Sabine Crowley [employer] Work Phone: [facility] 04-18-2024 11:57-0500 Heart rate 66 /min Sabine Crowley [employer] Work Phone: [facility] 04-18-2024 11:57-0500 Systolic blood pressure 153 mm[Hg] Sabine Crowley [employer] Work Phone: [facility] 02-20-2024 10:44-0400 Body mass index (BMI) [Ratio] 27.44 kg/m2 Tatiana Ronquillo MD Work Phone: [facility] 02-20-2024 10:44-0400 Body temperature 98.4 [degF] Tatiana Ronquillo MD Work Phone: [facility] 02-20-2024 10:44-0400 Body weight 77.11 kg Tatiana Ronquillo MD Work Phone: [facility] 02-20-2024 10:44-0400 Diastolic blood pressure 64 mm[Hg] Tatiana Ronquillo MD Work Phone: [facility] 02-20-2024 10:44-0400 Heart rate 79 /min Tatiana Ronquillo MD Work Phone: [facility] 02-20-2024 10:44-0400 Respiratory rate 18 /min Tatiana Ronquillo MD Work Phone: [facility] 02-20-2024 10:44-0400 SaO2% (BldA) [Mass fraction] 96 % Tatiana Ronquillo MD Work Phone: [facility] 02-20-2024 10:44-0400 Systolic blood pressure 102 mm[Hg] Tatiana Ronquillo MD Work Phone: [facility] 01-22-2024 17:20-0400 Body mass index (BMI) [Ratio] 28 kg/m2 Lena Aguilar [employer] Work Phone: [facility] 01-22-2024 17:20-0400 Body temperature 97.39 [degF] Lena Aguilar [employer] Work Phone: [facility] 01-22-2024 17:20-0400 Body weight 78.7 kg Lena Aguilar [employer] Work Phone: [facility] 01-22-2024 17:20-0400 Diastolic blood pressure 80 mm[Hg] Lena Aguilar APRN[employer] Work Phone: [facility] 01-22-2024 17:20-0400 Heart rate 98 /min Lena Aguilar APRN[employer] Work Phone: [facility] 01-22-2024 17:20-0400 Respiratory rate 20 /min Lena Aguilar APRN[employer] Work Phone: [facility] 01-22-2024 17:20-0400 SaO2% (BldA) [Mass fraction] 93 % Lena Aguilar APRN[employer] Work Phone: [facility] 01-22-2024 17:20-0400 Systolic blood pressure 122 mm[Hg] Lena Aguilar APRN[employer] Work Phone: [facility] 10-25-2023 13:42-0400 Body height 167.6 cm Tatiana Ronquillo MD Work Phone: [facility] 10-25-2023 13:42-0400 Body mass index (BMI) [Ratio] 27.44 kg/m2 Tatiana Ronquillo MD Work Phone: [facility] 10-25-2023 13:42-0400 Body weight 77.11 kg Tatiana Ronquillo MD Work Phone: [facility] 10-25-2023 13:42-0400 Diastolic blood pressure 80 mm[Hg] Tatiana Ronquillo MD Work Phone: [facility] 10-25-2023 13:42-0400 Heart rate 65 /min Tatiana Ronquillo MD Work Phone: [facility] 10-25-2023 13:42-0400 Respiratory rate 16 /min Tatiana Ronquillo MD Work Phone: [facility] 10-25-2023 13:42-0400 Systolic blood pressure 128 mm[Hg] Tatiana Ronquillo MD Work Phone: [facility] 10-03-2023 13:00-0400 Diastolic blood pressure 78 mm[Hg] Kashmir Golias PT Work Phone: [facility] 10-03-2023 13:00-0400 Heart rate 69 /min Kashmir Golias PT Work Phone: [facility] 10-03-2023 13:00-0400 Systolic blood pressure 128 mm[Hg] Kashmir Golias PT Work Phone: [facility] 09-29-2023 17:17-0400 Body height 167.[address] Bird Ronquillo Work Phone: [facility] 09-29-2023 17:17-0400 Body mass index (BMI) [Ratio] 26.6 kg/m2 Dr. Bird Ronquillo Work Phone: [facility] 09-29-2023 17:17-0400 Body temperature 97.8 [degF] Dr. Bird Ronquillo Work Phone: [facility] 09-29-2023 17:17-0400 Body weight 74.[address] Bird Ronquillo Work Phone: [facility] 09-29-2023 17:17-0400 Diastolic blood pressure 119 mm[Hg] Dr. Bird Ronquillo Work Phone: [facility] 09-29-2023 17:17-0400 Heart rate 76 /min Dr. Bird Ronquillo Work Phone: [facility] 09-29-2023 17:17-0400 Respiratory rate 18 /min Dr. Bird Ronquillo Work Phone: [facility] 09-29-2023 17:17-0400 SaO2% (BldA) [Mass fraction] 97 % Dr. Bird Ronquillo Work Phone: [facility] 09-29-2023 17:17-0400 Systolic blood pressure 140 mm[Hg] Dr. Bird Ronquillo Work Phone: [facility] 09-11-2023 16:09-0400 Body weight 77.02 kg Tatiana Ronquillo MD Work Phone: [facility] 09-11-2023 16:09-0400 Diastolic blood pressure 66 mm[Hg] Tatiana Ronquillo MD Work Phone: [facility] 09-11-2023 16:09-0400 Heart rate 71 /min Tatiana Ronquillo MD Work Phone: [facility] 09-11-2023 16:09-0400 Respiratory rate 16 /min Tatiana Ronquillo MD Work Phone: [facility] 09-11-2023 16:09-0400 SaO2% (BldA) [Mass fraction] 93 % Tatiana Ronquillo MD Work Phone: [facility] 09-11-2023 16:09-0400 Systolic blood pressure 106 mm[Hg] Tatiana Ronquillo MD Work Phone: [facility] 09-04-2023 14:15-0400 Diastolic blood pressure 92 mm[Hg] Isidro Lipscomb MD Work Phone: [facility] 09-04-2023 14:15-0400 Heart rate 55 /min Isidro Lipscomb MD Work Phone: [facility] 09-04-2023 14:15-0400 Respiratory rate 17 /min Isidro Lipscomb MD Work Phone: [facility] 09-04-2023 14:15-0400 SaO2% (BldA) [Mass fraction] 95 % Isidro Lipscomb MD Work Phone: [facility] 09-04-2023 14:15-0400 Systolic blood pressure 134 mm[Hg] Isidro Lipscomb MD Work Phone: [facility] 09-04-2023 13:49-0400 Body temperature 97.3 [degF] Isidro Lipscomb MD Work Phone: [facility] 09-04-2023 12:54-0400 Body height 167.6 cm Isidro Lipscomb MD Work Phone: [facility] 09-04-2023 12:54-0400 Body weight 75.3 kg Isidro Lipscomb MD Work Phone: [facility] 08-18-2023 14:34-0400 Body height 167.6 cm Isidro Lipscomb MD Work Phone: [facility] 08-18-2023 14:34-0400 Body temperature 97 [degF] Isidro Lipscomb MD Work Phone: [facility] 08-18-2023 14:34-0400 Body weight 75.48 kg Isidro Lipscomb MD Work Phone: [facility] 08-18-2023 14:34-0400 Diastolic blood pressure 82 mm[Hg] Isidro Lipscomb MD Work Phone: [facility] 08-18-2023 14:34-0400 Heart rate 71 /min Isidro Lipscomb MD Work Phone: [facility] 08-18-2023 14:34-0400 SaO2% (BldA) [Mass fraction] 97 % Isidro Lipscomb MD Work Phone: [facility] 08-18-2023 14:34-0400 Systolic blood pressure 140 mm[Hg] Isidro Lipscomb MD Work Phone: [facility] 08-14-2023 18:50-0400 Body temperature 98.6 [degF] Dr. Bird Ronquillo Work Phone: 5(456)005-371414 [place] [address] 08-14-2023 18:50-0400 Diastolic blood pressure 69 mm[Hg] Dr. Bird Ronquillo Work Phone: 5(996)229-432690 [place] [address] 08-14-2023 18:50-0400 Heart rate 72 /min Dr. Bird Ronquillo Work Phone: 3(541)561-502090 [place] [address] 08-14-2023 18:50-0400 Respiratory rate 22 /min Dr. Bird Ronquillo Work Phone: 5(023)049-484390 [place] [address] 08-14-2023 18:50-0400 SaO2% (BldA) [Mass fraction] 92 % Dr. Bird Ronquillo Work Phone: 5(373)274-834190 [place] [address] 08-14-2023 18:50-0400 Systolic blood pressure 149 mm[Hg] Dr. Bird Roqnuillo Work Phone: 5(717)120-689490 [place] [address] 08-14-2023 14:46-0400 Body height 167.[address] Bird Ronquillo Work Phone: 7(265)625-595890 [place] [address] 08-14-2023 14:46-0400 Body mass index (BMI) [Ratio] 27 kg/m2 Dr. Bird Ronquillo Work Phone: 9(434)825-117490 [place] [address] 08-14-2023 14:46-0400 Body weight 76.[address] Bird Ronquillo Work Phone: 1(064)588-213490 [place] [address] 06-19-2023 13:09-0500 Body mass index (BMI) [Ratio] 26.1 kg/m2 Dr. Bird Ronquillo Work Phone: 0(017)740-406490 [place] [address] 06-19-2023 13:09-0500 Body temperature 96.2 [degF] Dr. Bird Ronquillo Work Phone: 6(068)653-168990 [place] [address] 06-19-2023 13:09-0500 Body weight 73.[address] Bird Ronquillo Work Phone: 6(207)454-066790 [place] [address] 06-19-2023 13:09-0500 Diastolic blood pressure 71 mm[Hg] Dr. Bird Ronquillo Work Phone: [facility] 06-19-2023 13:09-0500 Heart rate 61 /min Dr. Bird Ronquillo Work Phone: [facility] 06-19-2023 13:09-0500 Respiratory rate 20 /min Dr. Bird Ronquillo Work Phone: [facility] 06-19-2023 13:09-0500 SaO2% (BldA) [Mass fraction] 95 % Dr. Bird Ronquillo Work Phone: [facility] 06-19-2023 13:09-0500 Systolic blood pressure 118 mm[Hg] Dr. Bird Ronquillo Work Phone: [facility] 03-13-2023 19:41-0400 Respiratory rate 16 /min [facility] Work Phone: 3(806)548-904542 [place] [address] 03-13-2023 15:41-0400 Body height 167.64 cm [facility] Work Phone: 2(383)140-745342 [place] [address] 03-13-2023 15:41-0400 Body mass index (BMI) [Ratio] 24.2 kg/m2 [facility] Work Phone: 2(214)022-180742 [place] [address] 03-13-2023 15:41-0400 Body temperature 97.3 [degF] [facility] Work Phone: 3(190)735-096542 [place] [address] 03-13-2023 15:41-0400 Body weight 68.03 kg [facility] Work Phone: 6(044)380-393642 [place] [address] 03-13-2023 15:41-0400 Diastolic blood pressure 73 mm[Hg] [facility] Work Phone: 4(204)024-128342 [place] [address] 03-13-2023 15:41-0400 Heart rate 62 /min [facility] Work Phone: 7(389)230-071742 [place] [address] 03-13-2023 15:41-0400 SaO2% (BldA) [Mass fraction] 97 % [facility] Work Phone: 7(874)002-069642 [place] [address] 03-13-2023 15:41-0400 Systolic blood pressure 149 mm[Hg] [facility] Work Phone: [facility] 02-07-2023 12:44-0400 Body weight 67.13 kg Barrett [employer] Work Phone: [facility] 02-07-2023 12:44-0400 Diastolic blood pressure 73 mm[Hg] Barrett [place] [employer] Work Phone: [facility] 02-07-2023 12:44-0400 Heart rate 73 /min Barrett [place] [employer] Work Phone: [facility] 02-07-2023 12:44-0400 SaO2% (BldA) [Mass fraction] 93 % Barrett [place] [employer] Work Phone: [facility] 02-07-2023 12:44-0400 Systolic blood pressure 153 mm[Hg] Barrett [employer] Work Phone: [facility] 12-14-2022 12:54-0400 Body mass index (BMI) [Ratio] 25.2 kg/m2 [facility] Work Phone: [facility] 12-14-2022 12:54-0400 Body temperature 97.6 [degF] [facility] Work Phone: 0(887)013-154451 [place] [address] 12-14-2022 12:54-0400 Body weight 66.67 kg [facility] Work Phone: [facility] 12-14-2022 12:54-0400 Diastolic blood pressure 77 mm[Hg] [facility] Work Phone: 5(492)363-629251 [place] [address] 12-14-2022 12:54-0400 Heart rate 93 /min [facility] Work Phone: [facility] 12-14-2022 12:54-0400 Respiratory rate 18 /min [facility] Work Phone: [facility] 12-14-2022 12:54-0400 SaO2% (BldA) [Mass fraction] 97 % [facility] Work Phone: 4(293)312-660642 [place] [address] 12-14-2022 12:54-0400 Systolic blood pressure 126 mm[Hg] [facility] Work Phone: 2(767)169-289742 [place] [address] 12-01-2022 15:36-0400 Body height 162.56 cm [facility] Work Phone: 4(869)807-677842 [place] [address] 12-01-2022 15:36-0400 Body mass index (BMI) [Ratio] 25.4 kg/m2 [facility] Work Phone: 4(392)805-123542 [place] [address] 12-01-2022 15:36-0400 Body temperature 97.6 [degF] [facility] Work Phone: 0(477)161-783142 [place] [address] 12-01-2022 15:36-0400 Body weight 67.22 kg [facility] Work Phone: 8(850)026-919642 [place] [address] 12-01-2022 15:36-0400 Diastolic blood pressure 92 mm[Hg] [facility] Work Phone: 8(483)572-135542 [place] [address] 12-01-2022 15:36-0400 Heart rate 92 /min [facility] Work Phone: 4(126)123-444942 [place] [address] 12-01-2022 15:36-0400 Respiratory rate 14 /min [facility] Work Phone: 3(869)124-500342 [place] [address] 12-01-2022 15:36-0400 SaO2% (BldA) [Mass fraction] 99 % [facility] Work Phone: 7(179)258-004842 [place] [address] 12-01-2022 15:36-0400 Systolic blood pressure 154 mm[Hg] [facility] Work Phone: 6(589)530-375942 [place] [address] 11-16-2022 21:12-0400 Diastolic blood pressure 74 mm[Hg] [facility] Work Phone: 5(209)654-650542 [place] [address] 11-16-2022 21:12-0400 Heart rate 67 /min [facility] Work Phone: 1(909)712-646842 [place] [address] 11-16-2022 21:12-0400 Respiratory rate 16 /min [facility] Work Phone: 3(131)928-149951 [place] [address] 11-16-2022 21:12-0400 SaO2% (BldA) [Mass fraction] 96 % [facility] Work Phone: 6(263)790-149642 [place] [address] 11-16-2022 21:12-0400 Systolic blood pressure 149 mm[Hg] [facility] Work Phone: 8(961)434-311942 [place] [address] 11-16-2022 19:02-0400 Body height 162.56 cm [facility] Work Phone: 1(308)007-804442 [place] [address] 11-16-2022 19:02-0400 Body mass index (BMI) [Ratio] 26.1 kg/m2 [facility] Work Phone: 7(640)312-674642 [place] [address] 11-16-2022 19:02-0400 Body temperature 97 [degF] [facility] Work Phone: 6(808)538-612542 [place] [address] 11-16-2022 19:02-0400 Body weight 69.1 kg [facility] Work Phone: 3(208)718-508042 [place] [address] 11-07-2022 16:17-0400 Body temperature 97.59 [degF] Krislyn Aberegg PA Work Phone: [facility] 11-07-2022 16:17-0400 Body weight 69.49 kg Krislyn Aberegg PA Work Phone: [facility] 11-07-2022 16:17-0400 Diastolic blood pressure 90 mm[Hg] Krislyn Aberegg PA Work Phone: [facility] 11-07-2022 16:17-0400 Heart rate 86 /min Krislyn Aberegg PA Work Phone: [facility] 11-07-2022 16:17-0400 Respiratory rate 18 /min Krislyn Aberegg PA Work Phone: [facility] 11-07-2022 16:17-0400 SaO2% (BldA) [Mass fraction] 94 % Krislyn Aberegg PA Work Phone: [facility] 11-07-2022 16:17-0400 Systolic blood pressure 130 mm[Hg] Christiano SUÁREZ Work Phone: [facility] 11-03-2022 03:33-0400 Diastolic blood pressure 68 mm[Hg] [facility] Work Phone: 8(022)160-218342 [place] [address] 11-03-2022 03:33-0400 Systolic blood pressure 150 mm[Hg] [facility] Work Phone: 8(188)014-644142 [place] [address] 11-03-2022 03:00-0400 Heart rate 66 /min [facility] Work Phone: 2(948)028-134642 [place] [address] 11-03-2022 03:00-0400 Respiratory rate 20 /min [facility] Work Phone: 1(905)189-690142 [place] [address] 11-03-2022 03:00-0400 SaO2% (BldA) [Mass fraction] 91 % [facility] Work Phone: 1(162)267-483942 [place] [address] 11-02-2022 23:40-0400 Body height 170.18 cm [facility] Work Phone: 8(321)575-420142 [place] [address] 11-02-2022 23:40-0400 Body mass index (BMI) [Ratio] 23.8 kg/m2 [facility] Work Phone: 6(103)879-578642 [place] [address] 11-02-2022 23:40-0400 Body temperature 96.6 [degF] [facility] Work Phone: 7(930)922-994342 [place] [address] 11-02-2022 23:40-0400 Body weight 68.94 kg [facility] Work Phone: 0(046)053-999342 [place] [address] 10-21-2022 19:51-0400 Diastolic blood pressure 77 mm[Hg] [facility] Work Phone: 8(059)344-083442 [place] [address] 10-21-2022 19:51-0400 Heart rate 81 /min [facility] Work Phone: 9(541)298-708642 [place] [address] 10-21-2022 19:51-0400 Respiratory rate 20 /min [facility] Work Phone: 3(395)636-118642 [place] [address] 10-21-2022 19:51-0400 SaO2% (BldA) [Mass fraction] 95 % [facility] Work Phone: 7(163)065-324742 [place] [address] 10-21-2022 19:51-0400 Systolic blood pressure 173 mm[Hg] [facility] Work Phone: 4(872)621-233342 [place] [address] 10-21-2022 14:55-0400 Body mass index (BMI) [Ratio] 24.7 kg/m2 [facility] Work Phone: 5(102)804-015242 [place] [address] 10-21-2022 14:55-0400 Body weight 69.5 kg [facility] Work Phone: 4(680)341-353542 [place] [address] 10-21-2022 14:25-0400 Body temperature 98.9 [degF] [facility] Work Phone: 7(324)184-392242 [place] [address] 09-29-2022 12:59-0400 Body mass index (BMI) [Ratio] 23.9 kg/m2 [facility] Work Phone: 1(508)171-405642 [place] [address] 09-29-2022 12:59-0400 Body weight 69.39 kg [facility] Work Phone: 7(264)764-021142 [place] [address] 09-29-2022 12:59-0400 Diastolic blood pressure 66 mm[Hg] [facility] Work Phone: 5(694)416-607742 [place] [address] 09-29-2022 12:59-0400 Heart rate 68 /min [facility] Work Phone: 1(077)868-972242 [place] [address] 09-29-2022 12:59-0400 Respiratory rate 18 /min [facility] Work Phone: 6(490)463-444542 [place] [address] 09-29-2022 12:59-0400 SaO2% (BldA) [Mass fraction] 96 % [facility] Work Phone: 2(056)422-158142 [place] [address] 09-29-2022 12:59-0400 Systolic blood pressure 116 mm[Hg] [facility] Work Phone: 7(430)774-235242 [place] [address] 09-13-2022 12:24-0400 Body mass index (BMI) [Ratio] 24.5 kg/m2 [facility] Work Phone: 0(180)104-841242 [place] [address] 09-13-2022 12:24-0400 Body temperature 97.4 [degF] [facility] Work Phone: 0(635)963-890142 [place] [address] 09-13-2022 12:24-0400 Body weight 68.94 kg [facility] Work Phone: 6(384)077-218742 [place] [address] 09-13-2022 12:24-0400 Diastolic blood pressure 69 mm[Hg] [facility] Work Phone: 8(209)114-995042 [place] [address] 09-13-2022 12:24-0400 Heart rate 75 /min [facility] Work Phone: 3(520)163-714842 [place] [address] 09-13-2022 12:24-0400 Respiratory rate 18 /min [facility] Work Phone: 9(508)276-612642 [place] [address] 09-13-2022 12:24-0400 SaO2% (BldA) [Mass fraction] 90 % [facility] Work Phone: 9(171)889-448742 [place] [address] 09-13-2022 12:24-0400 Systolic blood pressure 120 mm[Hg] [facility] Work Phone: 8(378)366-819842 [place] [address] 09-03-2022 21:29-0400 Diastolic blood pressure 63 mm[Hg] [facility] Work Phone: 5(239)306-315142 [place] [address] 09-03-2022 21:29-0400 Heart rate 76 /min [facility] Work Phone: 4(308)283-613542 [place] [address] 09-03-2022 21:29-0400 Respiratory rate 14 /min [facility] Work Phone: 4(602)875-439642 [place] [address] 09-03-2022 21:29-0400 SaO2% (BldA) [Mass fraction] 93 % [facility] Work Phone: 5(263)205-716542 [place] [address] 09-03-2022 21:29-0400 Systolic blood pressure 132 mm[Hg] [facility] Work Phone: 4(896)778-894442 [place] [address] 09-03-2022 18:12-0400 Body height 170.18 cm [facility] Work Phone: 6(223)304-207142 [place] [address] 09-03-2022 18:12-0400 Body mass index (BMI) [Ratio] 23.8 kg/m2 [facility] Work Phone: 2(495)772-075342 [place] [address] 09-03-2022 18:12-0400 Body temperature 98.1 [degF] [facility] Work Phone: 5(935)076-128242 [place] [address] 09-03-2022 18:12-0400 Body weight 69.12 kg [facility] Work Phone: 7(058)904-212542 [place] [address] 07-19-2022 14:47-0500 Body height 167.64 cm [facility] Work Phone: 2(142)555-437742 [place] [address] 07-19-2022 14:47-0500 Body mass index (BMI) [Ratio] 25.2 kg/m2 [facility] Work Phone: 3(615)813-332442 [place] [address] 07-19-2022 14:47-0500 Body temperature 98 [degF] [facility] Work Phone: 6(589)059-355042 [place] [address] 07-19-2022 14:47-0500 Body weight 70.87 kg [facility] Work Phone: 1(639)809-665942 [place] [address] 07-19-2022 14:47-0500 Diastolic blood pressure 75 mm[Hg] [facility] Work Phone: 9(645)398-938742 [place] [address] 07-19-2022 14:47-0500 Heart rate 62 /min [facility] Work Phone: 1(181)026-204342 [place] [address] 07-19-2022 14:47-0500 Respiratory rate 16 /min [facility] Work Phone: 5(950)178-614642 [place] [address] 07-19-2022 14:47-0500 SaO2% (BldA) [Mass fraction] 98 % [facility] Work Phone: 3(337)896-494142 [place] [address] 07-19-2022 14:47-0500 Systolic blood pressure 161 mm[Hg] [facility] Work Phone: 8(450)732-438642 [place] [address] 07-13-2022 10:49-0500 Body height 170.18 cm [facility] Work Phone: 5(757)172-618742 [place] [address] 07-13-2022 10:49-0500 Body weight 68.49 kg [facility] Work Phone: 3(108)900-616342 [place] [address] 07-05-2022 08:06-0500 Body mass index (BMI) [Ratio] 23.6 kg/m2 [facility] Work Phone: 0(703)549-878142 [place] [address] 07-01-2022 15:25-0500 Body mass index (BMI) [Ratio] 24.5 kg/m2 [facility] Work Phone: 5(206)855-291042 [place] [address] 07-01-2022 15:25-0500 Body weight 71.21 kg [facility] Work Phone: 8(663)912-529942 [place] [address] 07-01-2022 15:25-0500 Diastolic blood pressure 69 mm[Hg] [facility] Work Phone: 8(387)934-213942 [place] [address] 07-01-2022 15:25-0500 Heart rate 64 /min [facility] Work Phone: 8(554)800-702242 [place] [address] 07-01-2022 15:25-0500 Respiratory rate 18 /min [facility] Work Phone: 2(333)777-711642 [place] [address] 07-01-2022 15:25-0500 Systolic blood pressure 136 mm[Hg] [facility] Work Phone: 3(362)024-669242 [place] [address] 06-30-2022 14:55-0500 Body mass index (BMI) [Ratio] 23.6 kg/m2 [facility] Work Phone: 8(276)138-312642 [place] [address] 06-30-2022 14:55-0500 Body temperature 98 [degF] [facility] Work Phone: 7(395)869-180342 [place] [address] 06-30-2022 14:55-0500 Body weight 68.49 kg [facility] Work Phone: 3(012)062-636042 [place] [address] 06-30-2022 14:55-0500 Diastolic blood pressure 77 mm[Hg] [facility] Work Phone: 9(021)927-662542 [place] [address] 06-30-2022 14:55-0500 Heart rate 68 /min [facility] Work Phone: 7(195)875-379242 [place] [address] 06-30-2022 14:55-0500 Respiratory rate 14 /min [facility] Work Phone: 3(020)534-618642 [place] [address] 06-30-2022 14:55-0500 SaO2% (BldA) [Mass fraction] 95 % [facility] Work Phone: 0(790)517-689942 [place] [address] 06-30-2022 14:55-0500 Systolic blood pressure 175 mm[Hg] [facility] Work Phone: 0(411)317-585442 [place] [address] 06-08-2022 14:09-0500 Body temperature 97.9 [degF] [facility] Work Phone: 2(680)794-784842 [place] [address] 06-08-2022 14:09-0500 Diastolic blood pressure 69 mm[Hg] [facility] Work Phone: 4(773)013-841742 [place] [address] 06-08-2022 14:09-0500 Heart rate 71 /min [facility] Work Phone: 6(902)396-676842 [place] [address] 06-08-2022 14:09-0500 Respiratory rate 18 /min [facility] Work Phone: 0(885)356-554042 [place] [address] 06-08-2022 14:09-0500 SaO2% (BldA) [Mass fraction] 94 % [facility] Work Phone: 7(625)195-477842 [place] [address] 06-08-2022 14:09-0500 Systolic blood pressure 144 mm[Hg] [facility] Work Phone: 6(895)101-205242 [place] [address] 06-08-2022 06:00-0500 Body weight 69.2 kg [facility] Work Phone: 7(577)380-367042 [place] [address] 06-07-2022 17:44-0500 Body height 167.64 cm [facility] Work Phone: 1(349)496-187942 [place] [address] Work Phone: 06-07-2022 17:44-0500 Body mass index (BMI) [Ratio] 24.5 kg/m2 [facility] Work Phone: 2(277)612-280842 [place] [address] 05-05-2022 13:18-0500 Body height 167.6 cm Thelma Jaimes APRN.CNP Work Phone: [facility] 05-05-2022 13:18-0500 Body weight 70.31 kg Thelma Jaimes ANATOLIY Work Phone: [facility] 04-07-2022 16:16-0500 Diastolic blood pressure 54 mm[Hg] [facility] Work Phone: [facility] 04-07-2022 16:16-0500 Heart rate 70 /min [facility] Work Phone: [facility] 04-07-2022 16:16-0500 Respiratory rate 18 /min [facility] Work Phone: [facility] 04-07-2022 16:16-0500 SaO2% (BldA) [Mass fraction] 94 % [facility] Work Phone: [facility] 04-07-2022 16:16-0500 Systolic blood pressure 120 mm[Hg] [facility] Work Phone: [facility] 04-07-2022 15:32-0500 Body height 167.64 cm [facility] Work Phone: 1(408)581-521551 [place] [address] Work Phone: 04-07-2022 15:32-0500 Body mass index (BMI) [Ratio] 25 kg/m2 [facility] Work Phone: [facility] 04-07-2022 15:32-0500 Body temperature 98.2 [degF] [facility] Work Phone: [facility] 04-07-2022 15:32-0500 Body weight 70.3 kg [facility] Work Phone: [facility] 03-24-2022 10:02-0400 Body height 167.6 cm P[address] 1 [facility] 03-24-2022 10:02-0400 Body temperature 98.1 [degF] [facility] 03-24-2022 10:02-0400 Body weight 70.31 kg Pst 1 [facility] 03-24-2022 10:02-0400 Diastolic blood pressure 67 mm[Hg] Pst 1 [facility] 03-24-2022 10:02-0400 Heart rate 59 /min Pst 1 [facility] 03-24-2022 10:02-0400 SaO2% (BldA) [Mass fraction] 97 % Pst 1 [facility] 03-24-2022 10:02-0400 Systolic blood pressure 141 mm[Hg] Pst 1 [facility] 03-16-2022 12:58-0400 Body mass index (BMI) [Ratio] 24.7 kg/m2 [facility] Work Phone: 9(779)798-262942 [place] [address] 03-16-2022 12:58-0400 Body temperature 97.3 [degF] [facility] Work Phone: 4(647)385-824742 [place] [address] 03-16-2022 12:58-0400 Body weight 69.56 kg [facility] Work Phone: 2(729)113-841842 [place] [address] 03-16-2022 12:58-0400 Diastolic blood pressure 67 mm[Hg] [facility] Work Phone: 8(452)080-858442 [place] [address] 03-16-2022 12:58-0400 Heart rate 66 /min [facility] Work Phone: 1(343)944-498260 [address] 03-16-2022 12:58-0400 Respiratory rate 18 /min [facility] Work Phone: 9(354)508-444042 [place] [address] 03-16-2022 12:58-0400 SaO2% (BldA) [Mass fraction] 96 % [facility] Work Phone: 5(507)537-625442 [place] [address] 03-16-2022 12:58-0400 Systolic blood pressure 120 mm[Hg] [facility] Work Phone: 9(498)237-171860 [address] 02-15-2022 07:55-0400 Body temperature 98.6 [degF] [facility] Work Phone: [facility] Work Phone: 02-15-2022 07:55-0400 Diastolic blood pressure 66 mm[Hg] [facility] Work Phone: [facility] Work Phone: 02-15-2022 07:55-0400 Heart rate 52 /min [facility] Work Phone: [facility] Work Phone: 02-15-2022 07:55-0400 Respiratory rate 16 /min [facility] Work Phone: [facility] Work Phone: 02-15-2022 07:55-0400 SaO2% (BldA) [Mass fraction] 94 % [facility] Work Phone: [facility] Work Phone: 02-15-2022 07:55-0400 Systolic blood pressure 115 mm[Hg] [facility] Work Phone: [facility] Work Phone: 02-03-2022 12:50-0400 Body height 167.6 cm Pst 1 [facility] 02-03-2022 12:50-0400 Body temperature 97.9 [degF] Pst 1 [facility] 02-03-2022 12:50-0400 Body weight 65.77 kg Pst 1 [facility] 02-03-2022 12:50-0400 Diastolic blood pressure 70 mm[Hg] Pst 1 [facility] 02-03-2022 12:50-0400 Heart rate 50 /min Pst 1 [facility] 02-03-2022 12:50-0400 Respiratory rate 16 /min Pst 1 [facility] 02-03-2022 12:50-0400 SaO2% (BldA) [Mass fraction] 97 % Pst 1 [facility] 02-03-2022 12:50-0400 Systolic blood pressure 152 mm[Hg] Pst 1 [facility] 01-11-2022 13:15-0400 Body mass index (BMI) [Ratio] 22.4 kg/m2 [facility] Work Phone: [facility] Work Phone: 01-11-2022 13:15-0400 Body temperature 97.1 [degF] [facility] Work Phone: [facility] Work Phone: 01-11-2022 13:15-0400 Body weight 63.04 kg [facility] Work Phone: [facility] Work Phone: 01-11-2022 13:15-0400 Diastolic blood pressure 73 mm[Hg] [facility] Work Phone: [facility] Work Phone: 01-11-2022 13:15-0400 Heart rate 74 /min [facility] Work Phone: [facility] Work Phone: 01-11-2022 13:15-0400 Respiratory rate 16 /min [facility] Work Phone: [facility] Work Phone: 01-11-2022 13:15-0400 SaO2% (BldA) [Mass fraction] 93 % [facility] Work Phone: [facility] Work Phone: 01-11-2022 13:15-0400 Systolic blood pressure 112 mm[Hg] [facility] Work Phone: [facility] Work Phone: 12-28-2021 13:36-0400 Body height 167.6 cm Jeff [employer] D Work Phone: [facility] 12-28-2021 13:36-0400 Body weight 66.68 kg Jeff [employer] Work Phone: [facility] 12-13-2021 14:53-0400 Body temperature 97.9 [degF] [facility] Work Phone: [facility] Work Phone: 12-13-2021 14:53-0400 Diastolic blood pressure 64 mm[Hg] [facility] Work Phone: [facility] Work Phone: 12-13-2021 14:53-0400 Heart rate 71 /min [facility] Work Phone: [facility] Work Phone: 12-13-2021 14:53-0400 Respiratory rate 16 /min [facility] Work Phone: [facility] Work Phone: 12-13-2021 14:53-0400 SaO2% (BldA) [Mass fraction] 95 % [facility] Work Phone: [facility] Work Phone: 12-13-2021 14:53-0400 Systolic blood pressure 133 mm[Hg] [facility] Work Phone: [facility] Work Phone: 12-13-2021 11:03-0400 Body height 167.64 cm [facility] Work Phone: [facility] Work Phone: 12-13-2021 11:03-0400 Body weight 66.8 kg [facility] Work Phone: [facility] Work Phone: 12-12-2021 22:17-0400 Body mass index (BMI) [Ratio] 23.8 kg/m2 [facility] Work Phone: [facility] Work Phone: 12-12-2021 21:08-0400 Respiratory rate 16 /min [facility] Work Phone: [facility] Work Phone: 12-12-2021 20:59-0400 Body temperature 98.4 [degF] [facility] Work Phone: [facility] Work Phone: 12-12-2021 20:59-0400 Diastolic blood pressure 67 mm[Hg] [facility] Work Phone: [facility] Work Phone: 12-12-2021 20:59-0400 Heart rate 55 /min [facility] Work Phone: [facility] Work Phone: 12-12-2021 20:59-0400 SaO2% (BldA) [Mass fraction] 97 % [facility] Work Phone: [facility] Work Phone: 12-12-2021 20:59-0400 Systolic blood pressure 151 mm[Hg] [facility] Work Phone: [facility] Work Phone: 12-12-2021 18:37-0400 Body height 167.64 cm [facility] Work Phone: [facility] Work Phone: 12-12-2021 18:37-0400 Body mass index (BMI) [Ratio] 22.6 kg/m2 [facility] Work Phone: [facility] Work Phone: 12-12-2021 18:37-0400 Body weight 63.5 kg [facility] Work Phone: [facility] Work Phone: 12-10-2021 16:34-0400 Body mass index (BMI) [Ratio] 23.1 kg/m2 [facility] Work Phone: [facility] Work Phone: 12-10-2021 16:34-0400 Body temperature 97.4 [degF] [facility] Work Phone: [facility] Work Phone: 12-10-2021 16:34-0400 Body weight 64.86 kg [facility] Work Phone: [facility] Work Phone: 12-10-2021 16:34-0400 Diastolic blood pressure 63 mm[Hg] [facility] Work Phone: [facility] Work Phone: 12-10-2021 16:34-0400 Heart rate 75 /min [facility] Work Phone: [facility] Work Phone: 12-10-2021 16:34-0400 Respiratory rate 18 /min [facility] Work Phone: [facility] Work Phone: 12-10-2021 16:34-0400 SaO2% (BldA) [Mass fraction] 94 % [facility] Work Phone: [facility] Work Phone: 12-10-2021 16:34-0400 Systolic blood pressure 123 mm[Hg] [facility] Work Phone: [facility] Work Phone: 12-08-2021 13:29-0400 Body height 167.64 cm [facility] Work Phone: [facility] Work Phone: 12-08-2021 13:29-0400 Body mass index (BMI) [Ratio] 22.8 kg/m2 [facility] Work Phone: [facility] Work Phone: 12-08-2021 13:29-0400 Body temperature 98.2 [degF] [facility] Work Phone: [facility] Work Phone: 12-08-2021 13:29-0400 Body weight 64.41 kg [facility] Work Phone: [facility] Work Phone: 12-08-2021 13:29-0400 Diastolic blood pressure 70 mm[Hg] [facility] Work Phone: [facility] Work Phone: 12-08-2021 13:29-0400 Heart rate 81 /min [facility] Work Phone: [facility] Work Phone: 12-08-2021 13:29-0400 Respiratory rate 16 /min [facility] Work Phone: [facility] Work Phone: 12-08-2021 13:29-0400 SaO2% (BldA) [Mass fraction] 94 % [facility] Work Phone: [facility] Work Phone: 12-08-2021 13:29-0400 Systolic blood pressure 160 mm[Hg] [facility] Work Phone: [facility] Work Phone: 11-01-2021 12:16-0400 Body height 167.64 cm [facility] Work Phone: [facility] Work Phone: 11-01-2021 12:16-0400 Body mass index (BMI) [Ratio] 21.3 kg/m2 [facility] Work Phone: [facility] Work Phone: 11-01-2021 12:16-0400 Body temperature 98.5 [degF] [facility] Work Phone: [facility] Work Phone: 11-01-2021 12:16-0400 Body weight 59.87 kg [facility] Work Phone: [facility] Work Phone: 11-01-2021 12:16-0400 Diastolic blood pressure 73 mm[Hg] [facility] Work Phone: [facility] Work Phone: 11-01-2021 12:16-0400 Heart rate 66 /min [facility] Work Phone: [facility] Work Phone: 11-01-2021 12:16-0400 Respiratory rate 18 /min [facility] Work Phone: [facility] Work Phone: 11-01-2021 12:16-0400 SaO2% (BldA) [Mass fraction] 97 % [facility] Work Phone: [facility] Work Phone: 11-01-2021 12:16-0400 Systolic blood pressure 147 mm[Hg] [facility] Work Phone: [facility] Work Phone: 09-21-2021 13:30-0400 Body temperature 97.1 [degF] [facility] Work Phone: [facility] Work Phone: 09-21-2021 13:30-0400 Diastolic blood pressure 70 mm[Hg] [facility] Work Phone: [facility] Work Phone: 09-21-2021 13:30-0400 Heart rate 45 /min [facility] Work Phone: [facility] Work Phone: 09-21-2021 13:30-0400 Respiratory rate 16 /min [facility] Work Phone: [facility] Work Phone: 09-21-2021 13:30-0400 SaO2% (BldA) [Mass fraction] 99 % [facility] Work Phone: [facility] Work Phone: 09-21-2021 13:30-0400 Systolic blood pressure 134 mm[Hg] [facility] Work Phone: [facility] Work Phone: 09-21-2021 11:33-0400 Body height 168.91 cm [facility] Work Phone: [facility] Work Phone: 09-21-2021 11:33-0400 Body mass index (BMI) [Ratio] 20.6 kg/m2 [facility] Work Phone: [facility] Work Phone: 09-21-2021 11:33-0400 Body weight 58.96 kg [facility] Work Phone: [facility] Work Phone: 08-17-2021 07:58-0400 Body mass index (BMI) [Ratio] 21.1 kg/m2 [facility] Work Phone: [facility] Work Phone: 08-17-2021 07:58-0400 Body temperature 97.4 [degF] [facility] Work Phone: [facility] Work Phone: 08-17-2021 07:58-0400 Body weight 59.42 kg [facility] Work Phone: [facility] Work Phone: 08-17-2021 07:58-0400 Diastolic blood pressure 50 mm[Hg] [facility] Work Phone: [facility] Work Phone: 08-17-2021 07:58-0400 Heart rate 57 /min [facility] Work Phone: [facility] Work Phone: 08-17-2021 07:58-0400 Respiratory rate 17 /min [facility] Work Phone: [facility] Work Phone: 08-17-2021 07:58-0400 SaO2% (BldA) [Mass fraction] 95 % [facility] Work Phone: [facility] Work Phone: 08-17-2021 07:58-0400 Systolic blood pressure 128 mm[Hg] [facility] Work Phone: [facility] Work Phone: 08-17-2021 07:58-0400 Body height 167.64 cm [facility] Work Phone: [facility] Work Phone: 08-17-2021 07:58-0400 Body mass index (BMI) [Ratio] 21.1 kg/m2 [facility] Work Phone: [facility] Work Phone: 08-17-2021 07:58-0400 Body temperature 97.4 [degF] [facility] Work Phone: [facility] Work Phone: 08-17-2021 07:58-0400 Body weight 59.42 kg [facility] Work Phone: [facility] Work Phone: 08-17-2021 07:58-0400 Diastolic blood pressure 50 mm[Hg] [facility] Work Phone: [facility] Work Phone: 08-17-2021 07:58-0400 Heart rate 57 /min [facility] Work Phone: [facility] Work Phone: 08-17-2021 07:58-0400 Respiratory rate 17 /min [facility] Work Phone: [facility] Work Phone: 08-17-2021 07:58-0400 SaO2% (BldA) [Mass fraction] 95 % [facility] Work Phone: [facility] Work Phone: 08-17-2021 07:58-0400 Systolic blood pressure 128 mm[Hg] [facility] Work Phone: [facility] Work Phone: 07-10-2021 14:34-0500 Respiratory rate 16 /min [facility] Work Phone: [facility] Work Phone: 07-10-2021 13:21-0500 Body mass index (BMI) [Ratio] 19.5 kg/m2 [facility] Work Phone: [facility] Work Phone: 07-10-2021 13:21-0500 Body temperature 97.1 [degF] [facility] Work Phone: [facility] Work Phone: 07-10-2021 13:21-0500 Body weight 55 kg [facility] Work Phone: [facility] Work Phone: 07-10-2021 13:21-0500 Diastolic blood pressure 71 mm[Hg] [facility] Work Phone: [facility] Work Phone: 07-10-2021 13:21-0500 Heart rate 74 /min [facility] Work Phone: [facility] Work Phone: 07-10-2021 13:21-0500 SaO2% (BldA) [Mass fraction] 97 % [facility] Work Phone: [facility] Work Phone: 07-10-2021 13:21-0500 Systolic blood pressure 154 mm[Hg] [facility] Work Phone: [facility] Work Phone: Encounters Encounter Date Encounter Type Care Provider Facility Start: 03-26-2025 End: 03-26-2025 ambulatory SHAVONNE DONATO Facility:[facility] Start: 03-11-2025 ambulatory TATIANA RONQUILLO Facility:[facility] Start: 02-26-2025 End: 02-26-2025 ambulatory TATIANA RONQUILLO Facility:[facility] Start: 01-31-2025 End: 01-31-2025 Emergency department patient [...] Refill Tatiana Ronquillo MD Work Phone: [facility] [place] Comment on above: Refill Request Start: 12-05-2024 End: 12-05-2024 Patient encounter procedure Robin MATOS -[facility] Work Phone: Start: 12-05-2024 End: 12-05-[address] Bird Ronquillo MD Work Phone: -[facility] Start: 11-28-2024 End: 11-28-2024 Refill Tatiana Ronquillo MD Work Phone: [facility] Comment on above: Refill Request Start: 11-18-2024 End: 11-18-[address] Bird Ronquillo MD Work Phone: [facility] Work Phone: Start: 11-18-2024 End: 11-18-2024 Patient encounter procedure Robin MATOS -[facility] Work Phone: Start: 11-18-2024 End: 11-18-2024 ambulatory Bird Ronquillo Facility:[facility] Start: 11-06-2024 End: 11-06-2024 Refill Tatiana Ronquillo MD Work Phone: [facility] Comment on above: Refill Request Start: 10-23-2024 End: 10-23-2024 Follow-up encounter Tatiana Ronquillo MD Work Phone: [facility] Comment on above: Results Start: 10-23-2024 ambulatory TATIANA RONQUILLO Facility:[facility] Start: 10-23-2024 End: 10-23-2024 Subsequent hospital visit by physician [facility] Work Phone: Radiology Comment on above: Fall (on) (from) oth er stairs and steps, initial encounter [W10.8XXA] Start: 10-23-2024 End: 10-23-2024 Patient encounter procedure Tatiana Ronquillo MD Work Phone: [facility] Comment on above: RLQ abdominal pain ( Primary Dx); RUQ abdominal pain; Fall (on) (from) other stairs and steps, initial encounter; Hematoma of right lower extremity, initial encounter Start: 10-23-2024 End: 10-23-2024 ambulatory TATIANA RONQUILLO Facility:[facility] Start: 10-13-2024 End: 10-13-2024 Emergency department patient visit Dr. Bird Ronquillo MD Work Phone: -Emergency Department Work Phone: Start: 10-03-2024 End: 10-03-2024 Refill Tatiana Ronquillo MD Work Phone: [address] [place] [address] Comment on above: Refill Request Start: 09-30-2024 End: 09-30-2024 Emergency department patient visit Dr. Ed Gorman MD -Emergency Department Work Phone: Start: 08-16-2024 End: 08-28-2024 Follow-up encounter Tatiana Ronquillo MD Work Phone: [facility] Comment on above: Results - Mri Start: 08-15-2024 End: 10-15-2024 Follow-up encounter Tatiana Ronquillo MD Work Phone: [facility] [place] Start: 08-12-2024 End: 08-12-2024 Follow-up encounter Tatiana Ronquillo MD Work Phone: [facility] Comment on above: Results Start: 08-12-2024 End: 08-12-2024 ambulatory TATIANA RONQUILLO Facility:[facility] Start: 08-12-2024 End: 08-12-2024 Subsequent hospital visit by physician [facility] (I-Stat/1.5t) Work Phone: Radiology Comment on above: Hepatic cyst [K76.89 ] Start: 08-08-2024 End: 08-08-2024 ambulatory TATIANA RONQUILLO Facility:[facility] Start: 08-08-2024 End: 08-08-2024 Subsequent hospital visit by physician [facility] Work Phone: Nuclear Medicine Comment on above: Nausea [R11.0] Start: 08-06-2024 End: 08-06-2024 Patient encounter procedure Shavonne Donato APRN.[employer] Work Phone: [facility] [place] Comment on above: RUQ pain (Primary Dx ); Nausea; Dark stools; Hepatic cyst Start: 08-06-2024 End: 08-06-2024 ambulatory TATIANA RONQUILLO Facility:[facility] Start: 07-31-2024 End: 07-31-2024 Emergency department patient visit Dr. Raza Ruiz DO -Emergency Department Work Phone: Start: 07-31-2024 End: 09-30-2024 Follow-up encounter Tatiana Ronquillo MD Work Phone: [facility] [place] Start: 07-30-2024 End: 07-30-2024 Refill Tatiana Ronquillo MD Work Phone: [facility] [place] Comment on above: Refill Request Start: 07-22-2024 End: 07-23-2024 Refill Tatiana Ronquillo MD Work Phone: [facility] [place] Comment on above: Refill Request Start: 07-19-2024 End: 07-19-2024 Emergency department patient visit Dr. Colin Caba DO -Emergency Department Work Phone: Start: 07-12-2024 End: 07-12-2024 Follow-up encounter Jennifer Sierra APRN.[employer] Work Phone: [facility] [place] Comment on above: Influenza A (Primary Dx) Start: 07-11-2024 End: 07-11-2024 ambulatory TATIANA RONQUILLO Facility:[facility] Start: 07-11-2024 End: 07-11-2024 Office outpatient visit 15 minutes Moraima Solano APRN.[employer] Work Phone: [facility] [place] Comment on above: URI, acute (Primary Dx) Start: 07-02-2024 End: 07-02-2024 ambulatory Yamile Cordero PT [place] [facility] Comment on above: Falls frequently (Pr imary Dx); Knee gives out, right; Abnormality of gait; Right leg weakness Start: 2024 End: 2024 ambulatory Yamile O'Mike PT [facility] Comment on above: Falls frequently (Pr imary Dx); Knee gives out, right; Abnormality of gait; Right leg weakness Start: 06-18-2024 End: 06-19-2024 ambulatory Yamile O'Mike PT [facility] Physical Therapy Comment on above: Falls frequently (Pr imary Dx); Knee gives out, right; Abnormality of gait; Right leg weakness Start: 06-11-2024 End: 06-11-2024 ambulatory Yamile O'Mike PT [facility] Comment on above: Falls frequently (Pr imary Dx); Knee gives out, right; Abnormality of gait; Right leg weakness Start: 06-06-2024 End: 06-07-2024 Refill Tatiana Ronquillo MD Work Phone: [facility] Comment on above: Refill Request Start: 06-05-2024 End: 06-05-2024 ambulatory Yamile O'Mike PT [facility] Physical Therapy Comment on above: Falls frequently (Pr imary Dx); Knee gives out, right; Abnormality of gait; Right leg weakness Start: 05-20-2024 End: 05-20-2024 Patient encounter procedure Tatiana Ronquillo MD Work Phone: [facility] Comment on above: Gastroesophageal ref lux disease without esophagitis (Primary Dx); Primary hypertension; Mixed hyperlipidemia; Acquired hypothyroidism; Elevated LFTs; Chronic obstructive pulmonary disease, unspecified COPD type (HCC); Moderate recurrent major depression (HCC); Stage 3a chronic kidney disease (HCC) Start: 05-20-2024 End: 05-20-2024 ambulatory TATIANA RONQUILLO Facility:[facility] Start: 05-16-2024 End: 05-16-2024 Patient encounter procedure oRbin Gaffney PT DPT Work Phone: [facility] Comment on above: Abnormality of gait (Primary Dx); Falls frequently; Knee gives out, right; Muscle stiffness; Chronic pain of right knee; Right leg weakness Start: 05-16-2024 End: 05-16-2024 ambulatory Robin Bebb PT, DPT Work Phone: [facility] Start: 05-08-2024 End: 05-08-2024 ambulatory Og Raygoza [facility] Start: 05-08-2024 End: 05-08-2024 Patient encounter procedure Og Raygoza MA [facility] Comment on above: Population Health Na [facility]igation Outreach ([facility] ) Start: 05-02-2024 End: 05-02-2024 Telephone encounter Tatiana Ronqiullo MD Work Phone: [facility] Comment on above: Results Start: 05-01-2024 End: 05-01-2024 Telephone encounter Tatiana Ronquillo MD Work Phone: [facility] Comment on above: Results Start: 04-29-2024 End: 04-29-2024 Subsequent hospital visit by physician [facility] [place] Work Phone: Radiology Comment on above: Falls frequently [R2 9.6] Start: 04-29-2024 End: 04-29-2024 Patient encounter procedure Tatiana Ronquillo MD Work Phone: [facility] Comment on above: Falls frequently; Knee gives out, right; History of CVA (cerebrovascular accident); Primary hypertension; Mixed hyperlipidemia; Acquired hypothyroidism Start: 04-29-2024 End: 04-29-2024 ambulatory TATIANA RONQULILO Facility:[facility] Start: 04-19-2024 End: 04-19-2024 Telephone encounter Sabine Crowley APRN[employer] Work Phone: Radiology Comment on above: Orders Start: 04-19-2024 End: 04-19-2024 ambulatory TATIANA RONQUILOL Facility:[facility] Start: 04-19-2024 End: 04-19-2024 Subsequent hospital visit by physician [facility] Work Phone: Radiology Comment on above: RLQ abdominal mass [ R19.03] Start: 04-18-2024 End: 05-10-2024 Telephone encounter Sabine Crowley APRN[employer] Work Phone: [facility] [place] Comment on above: Results Start: 04-18-2024 ambulatory TATIANA RONQUILLO Facility:[facility] Start: 04-18-2024 End: 04-18-2024 Subsequent hospital visit by physician [facility] Comment on above: Nausea [R11.0] Start: 04-18-2024 End: 04-18-2024 Patient encounter procedure Sabine Crowley APRN[employer] Work Phone: [facility] [place] Comment on above: Nausea (Primary Dx); Right lower quadrant abdominal pain Start: 04-18-2024 End: 04-18-2024 ambulatory SABINE CROWLEY Facility:[facility] Start: 04-17-2024 End: 04-17-2024 Telephone encounter Tatiana Ronquillo MD Work Phone: [facility] [place] Comment on above: Lump right groin Start: 04-12-2024 End: 04-12-2024 Refill Tatiana Ronquillo MD Work Phone: [facility] [place] Comment on above: Refill Request Start: 04-05-2024 End: 04-08-2024 Refill Tatiana Ronquillo MD Work Phone: [facility] [place] Comment on above: Refill Request Start: 04-03-2024 End: 04-08-2024 ambulatory Tatiana Ronquillo MD Work Phone: Internal Medicine [place] [id number] Start: 03-07-2024 End: 03-07-2024 ambulatory Bird Ronquillo Facility:[facility] Start: 02-22-2024 End: 02-22-2024 Telephone encounter Tatiana Ronquillo MD Work Phone: [facility] [place] Comment on above: Results Start: 02-21-2024 End: 02-21-2024 Telephone encounter Tatiana Ronquillo MD Work Phone: [facility] [place] Comment on above: Results Start: 02-20-2024 End: 02-20-2024 Patient encounter procedure Tatiana Ronquillo MD Work Phone: [facility] [place] Comment on above: Colitis (Primary Dx) ; RLQ abdominal pain; Rectal bleeding; Nasal congestion; Rhinorrhea Start: 01-26-2024 End: 01-26-2024 Telephone encounter Tatiana Ronquillo MD Work Phone: [facility] [place] Comment on above: Results Start: 01-24-2024 End: 01-24-2024 ambulatory Og Raygoza [facility] Start: 01-24-2024 End: 01-24-2024 [facility] Comment on above: Population Health Na vigation Outreach ([facility]) Start: 01-23-2024 ambulatory TATIANA RONQUILLO Facility:[facility] Start: 01-23-2024 End: 01-23-2024 Subsequent hospital visit by physician [facility] Comment on above: Right calf pain [M79 .661] Start: 01-22-2024 Emergency department patient visit TATIANA RONQUILLO Facility:[facility] Start: 01-22-2024 End: 01-22-2024 Patient encounter procedure Lena Jeff [employer] Work Phone: [facility] Comment on above: Right calf pain (Nika nilson Dx) Start: 01-17-2024 End: 01-17-2024 Refill Tatiana Ronquillo MD Work Phone: [facility] [place] Comment on above: Refill Request Start: 01-16-2024 End: 01-17-2024 Telephone encounter Tatiana Ronquillo MD Work Phone: [facility] [place] Comment on above: Medication Update Start: 01-11-2024 Refill Tatiana Ronquillo MD Work Phone: [facility] [place] Comment on above: Refill Request Start: 01-08-2024 Refill Tatiana Ronquillo MD Work Phone: [facility] [place] Comment on above: Refill Request Start: 11-23-2023 Refill Tatiana Ronquillo MD Work Phone: [facility] [place] Comment on above: Refill Request Start: 10-26-2023 Telephone encounter Bird Ronquillo MD Work Phone: [facility] Comment on above: Results Start: 10-25-2023 End: 10-25-2023 Patient encounter procedure Tatiana Ronquillo MD Work Phone: [facility] Comment on above: Seasonal allergic rh [...] 10-17-2023 Refill Tatiana Ronquillo MD Work Phone: [facility] Comment on above: Refill Request Start: 10-10-2023 End: 10-10-2023 ambulatory Kashmir Golias PT Work Phone: [facility] Comment on above: Benign paroxysmal ve rtigo of right ear (Primary Dx) Start: 10-03-2023 End: 10-03-2023 ambulatory Kashmir Golias PT Work Phone: [facility] Physical [facility] Comment on above: Benign paroxysmal ve rtigo of right ear (Primary Dx); Benign paroxysmal positional vertigo of right ear Start: 09-29-2023 End: 09-29-2023 Emergency department patient visit Dr. Bird Ronqiullo Work Phone: [facility]-Emergency Department Work Phone: Start: 09-14-2023 Telephone encounter Bird Ronquillo MD Work Phone: [facility] Comment on above: Results Start: 09-11-2023 End: 09-11-2023 Patient encounter procedure Tatiana Ronquillo MD Work Phone: [facility] Comment on above: Benign paroxysmal po sitional vertigo of right ear (Primary Dx) Start: 09-07-2023 Refill Tatiana Ronquillo MD Work Phone: [facility] Comment on above: Refill Request Start: 09-06-2023 Telephone encounter Isidro Lipscomb MD Work Phone: General Surgery Comment on above: Results Start: 09-04-2023 ambulatory JUSTO HALEY Facilit y:[facility] Start: 09-04-2023 End: 09-04-2023 Subsequent hospital visit by physician Isidro Lipscomb MD Work Phone: [facility] Endoscopy Comment on above: Screening for [...] Telephone encounter Bird Ronquillo MD Work Phone: [facility] Comment on above: ER F/U Start: 08-14-2023 End: 08-14-2023 Emergency department patient visit Dr. 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 Bird Ronquillo Work Phone: [facility] [place] Work Phone: Start: 05-26-2023 End: 05-26-2023 ambulatory TATIANA RONQUILLO Facility:[facility] Start: 05-12-2023 Refill Tatiana Ronquillo MD Work Phone: [facility] Comment on above: Refill Request Start: 03-22-2023 Telephone encounter Bird Ronquillo MD Work Phone: [facility] Comment on above: Results Start: 03-22-2023 End: 03-22-2023 Subsequent hospital visit by physician Diagnostic Mammo [facility] Mammogram Comment on above: No Show Start: 03-16-2023 Telephone encounter Barrett randolph [employer] Work Phone: [facility] Pulmonary Comment on above: Results Start: 03-15-2023 Telephone encounter Bird Ronquillo MD Work Phone: [facility] Comment on above: Medication Problem ( [facility] doors [facility]-unable to greens picker) Refill Request Start: 03-14-2023 End: 03-14-2023 Subsequent hospital visit by physician Ct [facility] (I-Stat) Work Phone: Cat Scan Comment on above: Lung nodules [R91.8] Start: 03-13-2023 End: 03-13-2023 Emergency department patient visit [facility] Work Phone: [facility]-Emergency Department Work Phone: Start: 03-13-2023 Documentation procedure Mammog evelia Coordinator [facility] Start: 03-13-2023 Letter encounter Mammography Coordinator [facility] Department Start: 03-08-2023 Telephone encounter Bird Ronquillo MD Work Phone: [facility] Comment on above: Medication Question Start: 03-03-2023 Refill Tatiana Ronquillo MD Work Phone: [facility] [place] Comment on above: Refill Request Start: 03-01-2023 End: 03-01-2023 ambulatory Yamile Molly PT [place] [facility] Physical Therapy Comment on above: Coccyodynia; Lumbar spondylosis Start: 03-01-2023 Telephone encounter Bird Ronquillo MD Work Phone: [facility] [place] Comment on above: Medication Problem ( Fosamax) Start: 02-25-2023 Telephone encounter Bird Ronquillo MD Work Phone: [facility] [place] Comment on above: Results Start: 02-23-2023 End: 02-23-2023 Subsequent hospital visit by physician Screen Mammo [facility] Mammogram Comment on above: Encounter for screen ing mammogram for breast cancer [Z12.31] Lumbar spondylosis [ M47.816] Start: 02-14-2023 Telephone encounter Bird Ronquillo MD Work Phone: [facility] Comment on above: Results; Medication Problem Start: 02-07-2023 End: 02-07-2023 Subsequent hospital visit by physician Bone Density [facility] Work Phone: Radiology Comment on above: Asymptomatic postmen opausal status [Z78.0] Start: 02-07-2023 End: 02-07-2023 Patient encounter procedure Barrett Falk [employer] Work Phone: Pulmonary Medicine Comment on above: Encounter for screen ing for lung cancer (Primary Dx); Former tobacco use; Lung nodules Start: 02-01-2023 Telephone encounter Bird Ronquillo MD Work Phone: [facility] [place] Comment on above: Results Start: 01-31-2023 Telephone encounter Bird Ronquillo MD Work Phone: [facility] [place] Comment on above: Medication Problem Start: 01-06-2023 End: 01-06-2023 Subsequent hospital visit by physician [facility] Comment on above: Left thigh pain [M79 .652] Start: 12-30-2022 End: 12-30-2022 Patient encounter procedure Lili Bob PA-C Work Phone: [facility] Plastic Surgery Comment on above: Left thigh pain (Nika nilson Dx) Start: 12-23-2022 Telephone encounter Shavonne allison APRN.[employer] Work Phone: [facility] Comment on above: Results Start: 12-19-2022 End: 12-19-2022 Subsequent hospital visit by physician X[facility] Work Phone: Radiology Comment on above: Coccyodynia [M53.3] Start: 12-14-2022 End: 12-14-2022 Patient encounter procedure [facility] Work Phone: [facility]-Pulmonary Medicine [facility] Work Phone: Start: 12-01-2022 End: 12-01-2022 Emergency department [facility] Start: 11-16-2022 End: 11-16-2022 Emergency department patient visit [facility] Work Phone: [facility]-Emergency Department Start: 11-14-2022 End: 11-14-2022 Patient encounter procedure Thelma Jaimes APRN.[employer] Work Phone: [facility] Plastic [facility] Comment on above: Post-operative state (Primary Dx); Painful scar Start: 11-07-2022 End: 11-07-2022 Patient encounter procedure Christiano SUÁREZ Work Phone: [facility] Comment on above: Acute right-sided lo w back pain with right-sided sciatica (Primary Dx) Start: 11-02-2022 End: 11-03-2022 Emergency department patient visit [facility] Work Phone: [facility]-Emergency Department Start: 11-01-2022 Telephone encounter Jeff hernandez MD Work Phone: [facility] General Plastic Surgery Comment on above: Other Start: 10-21-2022 End: 10-21-2022 Emergency department patient visit [facility] Work Phone: [facility]-Emergency Department Start: 09-29-2022 End: 09-29-2022 Patient encounter procedure [facility] Work Phone: [facility] [facility] Start: 09-13-2022 End: 09-13-2022 Patient encounter procedure [facility] Work Phone: [facility]-Pulmonary Medicine [facility] Start: 09-03-2022 End: 09-03-2022 Emergency department patient visit [facility] Work Phone: [facility]-Emergency Department Start: 08-24-2022 End: 08-24-2022 ambulatory [facility] Work Phone: [facility] Work Phone: Start: 08-24-2022 End: 08-24-2022 Discharged Recurring [facility] Work Phone: [facility]-Physical Therapy Start: 07-25-2022 End: 07-25-2022 Patient encounter procedure [facility] Work Phone: [facility] Orthopaedic Specia Start: 07-19-2022 End: 07-19-2022 Emergency department patient visit [facility] Work Phone: [facility]-Emergency Department Start: 07-18-2022 End: 07-18-2022 ambulatory [facility] Work Phone: [facility] Work Phone: Start: 07-18-2022 End: 07-18-2022 Patient encounter procedure [facility] Work Phone: [facility] Start: 07-13-2022 End: 07-13-2022 Admission to same day surgery center [facility] Work Phone: [facility]-Yarn Packer/Special Procedures Start: 07-13-2022 End: 07-13-2022 ambulatory [facility] Work Phone: [facility] Work Phone: Start: 07-01-2022 End: 07-01-2022 Patient encounter procedure [facility] Work Phone: [facility] Heart Group Start: 06-30-2022 End: 06-30-2022 Emergency department patient visit [facility] Work Phone: [facility]-Emergency Department Start: 06-30-2022 Non-patient / Non-visit [facility] Work Phone: [facility] Heart [facility] Start: 06-14-2022 Registered Referred [facility] Work Phone: [facility]-Cardiovascular Services Start: 06-08-2022 Non-patient / Non-visit [facility] Work Phone: [facility] Inpatient Physicians Start: 06-08-2022 Non-patient / Non-visit [facility] Work Phone: [facility] Start: 06-07-2022 End: 06-07-2022 Non-patient / Non-visit [facility] Work Phone: [facility] Heart [facility] Start: 06-07-2022 End: 06-08-2022 Evaluation and management of inpatient [facility] Work Phone: [facility]-Progressive Care Unit Start: 06-07-2022 End: 06-08-2022 observation encounter [facility] Work Phone: [facility] Work Phone: Start: 06-02-2022 End: 06-02-2022 Patient encounter procedure [facility] Work Phone: [facility] Start: 05-05-2022 End: 05-05-2022 Patient encounter procedure Thelma Jaimes APRN.CNP Work Phone: [facility] Plastic Surgery Comment on above: Post-operative state (Primary Dx) Start: 04-19-2022 End: 04-19-2022 ambulatory [facility] Work Phone: [facility] Work Phone: Start: 04-19-2022 End: 04-19-2022 Patient encounter procedure [facility] Work Phone: [facility]-Radiology, [facility] Start: 04-07-2022 End: 04-07-2022 Emergency department patient visit [facility] Work Phone: [facility]-Emergency Department Start: 03-24-2022 End: 03-24-[address] [facility] [place] [facility] [address] [place] [employer] Start: 03-24-2022 End: 03-24-2022 [...] Start: 03-16-2022 End: 03-16-2022 Patient encounter procedure [facility] Work Phone: [facility]-Pulmonary Medicine [facility] Start: 02-15-2022 End: 02-15-2022 Patient encounter [facility] Start: 02-03-2022 End: 02-03-[address] [facility] Hw Bath [address] [place] [employer] [facility] Start: 02-03-2022 End: [...] Start: 01-18-2022 End: 01-18-2022 Patient encounter procedure [facility] Work Phone: [facility] Start: 01-11-2022 End: 01-11-2022 Emergency department patient visit [facility] Work Phone: [facility]-Emergency Department Start: 01-05-2022 Orders Only Jeff kearns [...] Start: 12-27-2021 End: 12-27-2021 Patient encounter procedure [facility] Work Phone: [facility]-Laboratory Start: 12-13-2021 Non-patient / Non-visit [facility] Work Phone: [facility] Inpatient Physicians Start: 12-12-2021 End: 12-13-2021 Evaluation and management of inpatient [facility] Work Phone: [facility]-Medical Surgical 3 Start: 12-10-2021 End: 12-10-2021 Emergency department patient visit [facility] Work Phone: [facility]-Emergency Department Start: 12-08-2021 End: 12-08-2021 Emergency department patient visit [facility] Work Phone: [facility]-Emergency Department Start: 11-01-2021 End: 11-01-2021 Emergency department patient visit [facility] Work Phone: [facility]-Emergency Department Start: 10-20-2021 Refill Halle SUÁREZ -Kira Work Phone: [facility] Comment on above: Refill Request Start: 09-29-2021 Telephone encounter Halle bae PA-C Work Phone: [facility] Comment on above: Results Start: 09-21-2021 Non-patient / Non-visit [facility] Work Phone: [facility] Start: 09-21-2021 End: 09-21-2021 Admission to same day surgery center [facility] Work Phone: [facility]-Endoscopy Start: 08-26-2021 End: 08-26-2021 Patient encounter procedure [facility] Work Phone: [facility] Start: 08-19-2021 End: 08-19-2021 Patient encounter procedure [facility] Work Phone: [facility]-Outpatient Breast Imaging Start: 08-17-2021 End: 08-17-2021 Patient encounter procedure [facility] Work Phone: [facility]-Pulmonary Medicine [facility] Start: 07-21-2021 End: 07-21-2021 Patient encounter procedure [facility] Work Phone: [facility] Gastroenterology Start: 07-12-2021 End: 07-12-2021 Patient encounter procedure [facility] Work Phone: [facility]-Ultrasound, [facility] Start: 07-10-2021 End: 07-10-2021 Emergency department patient visit [facility] Work Phone: [facility]-Emergency Department Start: 07-08-2021 End: 07-08-2021 Discharged Recurring [facility] Work Phone: [facility]-Occupational Therapy Start: 07-08-2021 Registered Recurring [facility] Work Phone: [facility]-Occupational Therapy Start: 07-06-2021 End: 07-06-2021 Patient encounter procedure [facility] Work Phone: [facility]-Laboratory Start: 06-04-2021 End: 06-04-2021 Patient encounter procedure [facility] Work Phone: [facility] Orthopaedic Specia Start: 05-17-2021 End: 05-17-2021 Patient encounter procedure [facility] Work Phone: [facility] Orthopaedic Specia Start: 04-30-2021 End: 04-30-2021 Patient encounter procedure [facility] Work Phone: [facility] Orthopaedic Specia Procedures Date Procedure Procedure Detail [...] imag inc gb w/pharma intervenj Shavonne Podlogar [employer] Work Phone: Start: 07-31-2024 Computed tomography of [...] abdomen & pelvis w/contrast material Sabine Crowley [employer] Work Phone: Start: 01-23-2024 Dup-scan xtr veins [...] Ct thorax w/o contrast material Barrett Falk [employer] Work Phone: Start: 03-13-2023 Computed tomography of abdomen and pelvis with intravenous contrast [facility] Work Phone: Start: 02-23-2023 Screening mammography bi 2-view breast inc cad Tatiana Ronquillo MD Work Phone: Start: 02-23-2023 Radex spine lumbosacral minimum 4 views Neal Guevara MD Work Phone: Start: 02-07-2023 Dxa bone density study 1/> sites axial skel Tatiana Ronquillo MD Work Phone: Start: 01-26-2023 Lipid 1996 panel - Serum or Plasma Nina Jacinto [employer] Work Phone: Start: 12-19-2022 Radex sacrum & coccyx minimum 2 views Shavonne Donato [employer] Work Phone: Start: 11-16-2022 Computed tomography of abdomen and pelvis with intravenous contrast [facility] Work Phone: Start: 11-16-2022 CT angiography of chest with contrast [facility] Work Phone: Start: 11-07-2022 Urnls dip stick/tablet rgnt auto w/o microscopy Lena Aguilar APRN.[employer] Work Phone: Start: 11-03-2022 Computed tomography of abdomen and pelvis with intravenous contrast [facility] Work Phone: Start: 11-03-2022 CT angiography of chest with contrast [facility] Work Phone: Start: 11-03-2022 Plain chest X-ray [facility] Work Phone: Start: 10-21-2022 Transvaginal echography [facility] Work Phone: Start: 10-21-2022 Computed tomography of abdomen and pelvis with intravenous contrast [facility] Work Phone: Start: 09-03-2022 Plain chest X-ray [facility] Work Phone: Start: 09-03-2022 SARS-CoV-2 & FLU Antigen (Rapid) [facility] Work Phone: Start: 07-19-2022 Plain x-ray of hand [facility] Work Phone: Start: 07-19-2022 [facility] Work Phone: Start: 07-18-2022 MRI of cervical spine [facility] Work Phone: Start: 06-07-2022 MRI of brain without contrast [facility] Work Phone: Start: 06-07-2022 CT angiography of head and neck [facility] Work Phone: Start: 06-07-2022 Plain chest X-ray [facility] Work Phone: Start: 06-07-2022 CT of head without contrast [facility] Work Phone: Start: 06-02-2022 X-ray of cervical spine [facility] Work Phone: Start: 04-19-2022 Plain X-ray of shoulder [facility] Work Phone: Start: 01-18-2022 CT of chest [facility] Work Phone: Start: 12-13-2021 Procedure on toenail [facility] Work Phone: Start: 12-12-2021 X-ray of both feet [facility] Work Phone: Start: 12-10-2021 X-ray of both feet [facility] Work Phone: Start: 12-08-2021 X-ray of both feet [facility] Work Phone: Start: 11-01-2021 CT of lower limb with contrast [facility] Work Phone: Start: 09-21-2021 Colonoscopy [facility] Work Phone: Start: 09-20-2021 End: 09-20-2021 Viral antigen assay [facility] Work Phone: Start: 08-26-2021 CT of chest without contrast [facility] Work Phone: Start: 08-19-2021 Screening mammography [facility] Work Phone: Start: 07-12-2021 Ultrasonography of limb [facility] Work Phone: Start: 07-10-2021 Plain chest X-ray [facility] Work Phone: Start: 07-10-2021 SARS-CoV-2 Antigen (Rapid) [facility] Work Phone: Start: 11-24-2014 Mammography Halle Lori PA-C Work Phone: Start: 10-17-2012 Colonoscopy Halle Athy PA-C Work Phone: H/O: tubal ligation History of t ubal ligation [facility] Work Phone: Viral antigen assay [facility] Work Phone: Plan of Treatment Date Care Activity Detail Author Start: 09-03-2033 Screening for malignant neoplasm of colon [facility] Start: 04-29-2029 Lipid panel Lipid Screening [facility] Start: 01-27-2028 Lipid 1996 panel - Serum or Plasma Lipid Screening [facility] Start: 01-27-2028 Lipid panel Lipid Screening [facility] Start: 01-27-2028 LIPID SCREEN LIPID SCREEN [facility] Start: 04-29-2027 Diabetes Screening Diabetes Screening [facility] Start: 02-19-2027 Diabetes Screening Diabetes Screening [facility] Start: 10-24-2026 Diabetes Screening Diabetes Screening [facility] Start: 09-16-2026 HPV TESTING HPV TESTING [facility] Start: 09-16-2026 PAP TESTING PAP TESTING [facility] Start: 09-12-2026 Diabetes Screening Diabetes Screening [facility] Start: 07-26-2026 Diabetes Screening Diabetes Screening [facility] Start: 03-03-2026 Diabetes Screening Diabetes Screening [facility] Start: 01-26-2026 DIABETES SCREEN DIABETES SCREEN [facility] Start: 01-26-2026 Diabetes Screening Diabetes Screening [facility] Start: 10-23-2025 Annual PCP Team Chronic Disease Visit Annual PCP Team Chronic Disease Visit [facility] Start: 08-07-2025 Screening for malignant neoplasm of colon Fecal Occult Blood [facility] Start: 08-06-2025 Annual PCP Team Chronic Disease Visit Annual PCP Team Chronic Disease Visit [facility] Start: 07-11-2025 Annual PCP Team Chronic Disease Visit Annual PCP Team Chronic Disease Visit [facility] Start: 07-11-2025 BP Controlled (<130/80) BP Controlled (<130/80) [facility] Start: 07-11-2025 Urine microalbumin profile DTaP,Tdap,Td Vaccine (1 - Tdap) [facility] Comment on above: Postponed from 03/04/2013 (Declined at t his time) Start: 05-20-2025 Annual PCP Team Chronic Disease Visit Annual PCP Team Chronic Disease Visit [facility] Start: 05-20-2025 BP Controlled (<130/80) BP Controlled (<130/80) [facility] Start: 04-29-2025 Annual PCP Team Chronic Disease Visit Annual PCP Team Chronic Disease Visit [facility] Start: 04-29-2025 Covid-19 Vaccine ( season) Covid-19 Vaccine ( season) [facility] Comment on above: Postponed from 01/28/2024 (Declined at t his time) Start: 04-29-2025 Creatinine measurement Serum Creatinine [facility] Start: 04-18-2025 Annual PCP Team Chronic Disease Visit Annual PCP Team Chronic Disease Visit [facility] Start: 02-19-2025 Annual PCP Team Chronic Disease Visit Annual PCP Team Chronic Disease Visit [facility] Start: 02-19-2025 BP Controlled (<130/80) BP Controlled (<130/80) [facility] Start: 02-19-2025 Complete blood count Hemoglobin/Hematocrit [facility] Start: 02-19-2025 Creatinine measurement Serum Creatinine [facility] Start: 01-31-2025 [facility] Start: 01-27-2025 Influenza vaccination [facility] Start: 11-25-2024 Influenza vaccination [facility] Comment on above: Postponed from 01/28/2024 (Declined at t his time) Start: 11-18-2024 End: 11-18-2024 Patient encounter procedure 11/18/2024 1:00 PM EDT Office Visit [facility] [place] [address] [place], [place] [id number] Shavonne Donato APRN.[employer] [address] [place] [address] 6 month follow up [facility] [place] Comment on above: 6 month follow up Start: 11-15-2024 End: 11-15-2024 Patient encounter procedure 11/15/2024 2:15 PM EDT Office Visit [facility] [place] [address] [facility] [id number] Fadumo Pimentel PA-C [address] [facility] [place] [id number] RLQ abdominal pain [R10.31] [facility] [place] Comment on above: RLQ abdominal pain [R10.31] Start: 10-24-2024 Annual PCP Team Chronic Disease Visit Annual PCP Team Chronic Disease Visit [facility] Start: 10-24-2024 Creatinine measurement Serum Creatinine [facility] Start: 10-24-2024 Spirometry Spirometry [facility] Comment on above: Postponed from 1975 (Declined at t his time) Start: 10-13-2024 [facility] Start: 10-02-2024 BP Controlled (<130/80) BP Controlled (<130/80) [facility] Start: 09-30-2024 [facility] Start: 09-30-2024 [facility] Start: 09-12-2024 Creatinine measurement Serum Creatinine [facility] Start: 09-10-2024 Annual PCP Team Chronic Disease Visit Annual PCP Team Chronic Disease Visit [facility] Start: 09-10-2024 BP Controlled (<130/80) BP Controlled (<130/80) [facility] Start: 08-22-2024 End: 08-22-2024 Patient encounter procedure 08/22/2024 12:00 PM EDT Appointment Nuclear Medicine [address] [place] [address] Dx: Nausea [R11.0] Nuclear Medicine Comment on above: Dx: Nausea [R11.0] Start: 08-12-2024 End: 08-12-2024 Patient encounter procedure 08/12/2024 1:00 PM EDT Appointment Radiology [address] [place] [address] Dx: Hepatic cyst [K76.89] Radiology Comment on above: Dx: Hepatic cyst [K76.89] Start: 07-31-2024 [facility] Start: 07-27-2024 Screening for malignant neoplasm of colon Fecal Occult Blood [facility] Start: 07-26-2024 Annual PCP Team Chronic Disease Visit Annual PCP Team Chronic Disease Visit [facility] Start: 07-26-2024 BP Controlled (<130/80) BP Controlled (<130/80) [facility] Start: 07-26-2024 Complete blood count Hemoglobin/Hematocrit [facility] Start: 07-26-2024 Creatinine measurement Serum Creatinine [facility] Start: 07-26-2024 RSV Vaccine (1 - 1-dose 60+ series) RSV Vaccine (1 - 1-dose 60+ series) [facility] Comment on above: Postponed from 2017 (Declined at t his time) Start: 07-26-2024 RSV Vaccine (1 - Risk 60-74 years 1-dose series) RSV Vaccine (1 - Risk 60-74 years 1-dose series) [facility] Comment on above: Postponed from 2017 (Declined at t his time) Start: 07-19-2024 [facility] Start: 07-19-2024 [facility] Start: 07-02-2024 End: 07-02-2024 ambulatory 07/02/2024 3:00 PM EST OT/PT/Speech Visit [facility] [address] [place] [address] Yamile Cordero, PT : Falls frequently [R29.6 (ICD-10-CM)]; Knee gives out, right [M25.361 (ICD-10-CM)]; Abnormality of gait [R26.9 (ICD-10-CM)]; Right leg weakness [R29.898 (ICD-10-CM)] [facility] Comment on above: : Falls frequently [R29.6 (ICD-10-CM)]; Knee gives out, right [M25.361 (ICD-10-CM)]; Abnormality of gait [R26.9 (ICD-10-CM)]; Right leg weakness [R29.898 (ICD-10-CM)] Start: 07-02-2024 End: 10-01-2024 Thyrotropin [Units/volume] in Serum or Plasma THYROID STIMULATING HORMONE Lab Routine Acquired hypothyroidism Expected: 07/02/2024, Expires: 10/01/2024 [facility] Work Phone: Comment on above: Expected: 07/02/2024, Expires: Start: 06-27-2024 Covid-19 Vaccine ( season) Covid-19 Vaccine ( season) [facility] Comment on above: Postponed from 01/27/2023 (Declined at t his time) Start: 06-27-2024 Shingrix Vaccine (2 of 2) Shingrix Vaccine (2 of 2) [facility] Comment on above: Postponed from 05/26/2020 (Declined at t his time) Start: 06-27-2024 Urine microalbumin profile DTaP,Tdap,Td Vaccine (1 - Tdap) [facility] Comment on above: Postponed from 03/04/2013 (Declined at t his time) Start: 2024 End: 2024 ambulatory 2024 3:00 PM EST OT/PT/Speech Visit [facility] [address] [place] [address] Yamile Cordero, PT : Falls frequently [R29.6 (ICD-10-CM)]; Knee gives out, right [M25.361 (ICD-10-CM)]; Abnormality of gait [R26.9 (ICD-10-CM)]; Right leg weakness [R29.898 (ICD-10-CM)] [facility] Comment on above: : Falls frequently [R29.6 (ICD-10-CM)]; Knee gives out, right [M25.361 (ICD-10-CM)]; Abnormality of gait [R26.9 (ICD-10-CM)]; Right leg weakness [R29.898 (ICD-10-CM)] Start: 06-18-2024 End: 06-18-2024 ambulatory 06/18/2024 3:00 PM EST OT/PT/Speech Visit [facility] [address] [place] [address] Yamile Cordero, PT : Falls frequently [R29.6 (ICD-10-CM)]; Knee gives out, right [M25.361 (ICD-10-CM)]; Abnormality of gait [R26.9 (ICD-10-CM)]; Right leg weakness [R29.898 (ICD-10-CM)] [facility] Comment on above: : Falls frequently [R29.6 (ICD-10-CM)]; Knee gives out, right [M25.361 (ICD-10-CM)]; Abnormality of gait [R26.9 (ICD-10-CM)]; Right leg weakness [R29.898 (ICD-10-CM)] Start: 06-11-2024 End: 06-11-2024 ambulatory 06/11/2024 3:00 PM EST OT/PT/Speech Visit [facility] [address] [place] [address] Yamile Cordero, PT : Falls frequently [R29.6 (ICD-10-CM)]; Knee gives out, right [M25.361 (ICD-10-CM)]; Abnormality of gait [R26.9 (ICD-10-CM)]; Right leg weakness [R29.898 (ICD-10-CM)] [facility] Comment on above: : Falls frequently [R29.6 (ICD-10-CM)]; Knee gives out, right [M25.361 (ICD-10-CM)]; Abnormality of gait [R26.9 (ICD-10-CM)]; Right leg weakness [R29.898 (ICD-10-CM)] Start: 05-29-2024 Advance Directive Discussion Advance Directive Discussion [facility] Start: 05-29-2024 Medicare Advantage Annual Wellness Visit Medicare Advantage Annual Wellness Visit [facility] Start: 05-20-2024 End: 05-20-2024 Patient encounter procedure 05/20/2024 12:20 PM EST Office Visit Family [facility] [place] [address] [place] [address] Tatiana Ronquillo MD [address] [facility] [place] [address] routine follow up Family [facility] [place] Comment on above: routine follow up Start: 05-16-2024 End: 05-16-2024 Patient encounter procedure 05/16/2024 2:45 PM EST OT/PT/Speech Visit [facility] [address] [place] [address] Robin Gaffney, PT, DPT [address] [place] [address] Falls frequently [R29.6] [facility] Comment on above: Falls frequently [R29.6] Start: 04-29-2024 End: 07-29-2024 LIPID PANEL, NONFASTING [facility] Comment on above: Expected: 04/29/2024, Expires: Start: 04-29-2024 End: 07-29-2024 Thyrotropin [Units/volume] in Serum or Plasma [facility] Work Phone: Comment on above: Expected: 04/29/2024, Expires: Start: 04-29-2024 End: 04-29-2024 Patient encounter procedure 04/29/2024 12:20 PM EST Office Visit [facility] [address] [place], [place] [phone] Tatiana Ronquillo MD [address] [place], [place] [id number] 6 mo follow up [facility] Comment on above: 6 mo follow up Start: 04-18-2024 End: 04-18-2024 Patient encounter procedure 04/18/2024 12:00 PM EST Office Visit [facility] [address] [place], [place] [id number] Sabine Crowley APRN.[employer] [address] [place] [address] Lump in right groin at hip line, that has gotten bigger. See phone note. [facility] Comment on above: Lump in right groin at hip line, that bernabe s gotten bigger. See phone note. Start: 03-21-2024 Annual PCP Team Chronic Disease Visit Annual PCP Team Chronic Disease Visit [facility] Start: 03-21-2024 BP Controlled (<130/80) BP Controlled (<130/80) [facility] Start: 03-14-2024 Influenza vaccination Lung Cancer Screening [facility] Start: 03-14-2024 Screening for malignant neoplasm of lung Lung Cancer Screening [facility] Start: 03-07-2024 End: 06-06-2024 Comprehensive metabolic 2000 panel - Serum or Plasma COMPREHENSIVE METABOLIC PANEL Lab Routine Elevated LFTs Expected: 03/07/2024, Expires: 06/06/2024 [facility] Work Phone: Comment on above: Expected: 03/07/2024, Expires: 5 Start: 02-24-2024 Mammography Mammogram Screening [facility] Start: 02-24-2024 Screening for malignant neoplasm of breast Mammogram Screening [facility] Start: 02-20-2024 End: 05-21-2024 C reactive protein [Mass/volume] in Serum or Plasma [facility] Comment on above: Expected: 02/20/2024, Expires: 4 Start: 02-20-2024 End: 05-21-2024 CBC W Auto Differential panel - Blood [facility] Work Phone: Comment on above: Expected: 02/20/2024, Expires: 4 Start: 02-20-2024 End: 05-21-2024 Comprehensive metabolic 2000 panel - Serum or Plasma [facility] Comment on above: Expected: 02/20/2024, Expires: Start: 02-20-2024 End: 05-21-2024 Erythrocyte sedimentation rate [facility] Comment on above: Expected: 02/20/2024, Expires: 4 Start: 02-20-2024 End: 02-20-2024 Patient encounter procedure 02/20/2024 10:20 AM EDT Office Visit [facility] [place] [address] [place] [phone] Tatiana Ronquillo MD [address] [place] [phone] [facility] follow up with colitis, taking antibiotics [facility] [place] Comment on above: [facility] follow up with colitis, taking an tibiotics Start: 01-28-2024 Covid-19 Vaccine () Covid-19 Vaccine () [facility] Start: 01-28-2024 Covid-19 Vaccine () Covid-19 Vaccine () [facility] Start: 01-28-2024 Influenza vaccination [facility] Start: 08-31-2024 ANNUAL PCP TEAM CHRONIC DISEASE VISIT ANNUAL PCP TEAM CHRONIC DISEASE VISIT [facility] Start: 01-27-2024 COVID-19 VACCINE (3 - Moderna series) COVID-19 VACCINE (3 - Moderna series) [facility] Comment on above: Postponed from 12/24/2020 (Declined at t his time) Start: 12-28-2023 End: 12-28-2023 Patient encounter procedure 12/28/2023 11:15 AM EDT Office Visit [facility] [address] [place] [address] PreMeaghan arredondo, [employer] [address] [place] [address] 6 month follow up [facility] Comment on above: 6 month follow up Start: 11-26-2023 Influenza [facility] on above: Postponed from 01/27/2023 (Declined at t his time) Start: 11-17-2023 End: 11-17-2023 Patient encounter procedure 11/17/2023 1:15 PM EDT Office Visit [facility] [address] [place] [address] PreMeaghan arredondo, [employer] [address] [place] [address] 6 month follow up [facility] Comment on above: 6 month follow up Start: 10-25-2023 End: 01-24-2024 Hemoglobin A1c in Blood [facility] Work Phone: Comment on above: Expected: 10/25/2023, Expires: Start: 10-25-2023 End: 10-25-2023 Patient encounter procedure 10/25/2023 2:00 PM EDT Office Visit [facility] [place] [address] [place] [address] Tatiana Ronquillo MD [address] [place] [address] 3 month f/u [facility] [place] Comment on above: 3 month f/u Start: 10-10-2023 End: 10-10-2023 Patient encounter procedure 10/10/2023 10:00 AM EDT OT/PT/Speech Visit [facility] [address] [place] [address] Kashmir Judge, PT [address] [place] [address] H81.11 (ICD-10-CM) - Benign paroxysmal positional vertigo of right ear Procedures: 9032 - CONSULT TO PHYSICAL THERAPY [facility] Comment on above: H81.11 (ICD-10-CM) - Benign paroxysmal p ositional vertigo of right ear Procedures: 9032 - CONSULT TO PHYSICAL THERAPY Start: 09-29-2023 [facility] Start: 09-02-2023 End: 12-02-2023 Comprehensive metabolic 2000 panel - Serum or Plasma COMP METABOLIC PANEL Lab Routine ELENA (acute kidney injury) (HCC) Expected: 09/02/2023, Expires: 12/02/2023 [facility] Work Phone: Comment on above: Expected: 09/02/2023, Expires: 4 Start: 08-14-2023 [facility] Start: 08-02-2023 End: 10-02-2023 Hemoglobin A1c in Blood HGB A1C Lab Routine Impaired fasting glucose Expected: 08/02/2023, Expires: 10/02/2023 [facility] Work Phone: Comment on above: Expected: 08/02/2023, Expires: 4 Start: 07-29-2023 Screening for malignant neoplasm of colon Colorectal Cancer Screening [facility] Start: 05-29-2023 Advance Directive Discussion Advance Directive Discussion [facility] Start: 05-08-2023 Pneumococcal Vaccine: 65+ (3 - PPSV23 or PCV20) Pneumococcal Vaccine: 65+ (3 - PPSV23 or PCV20) [facility] Start: 05-08-2023 Pneumococcal Vaccine: 65+ (3 of 3 - PPSV23 or PCV20) Pneumococcal Vaccine: 65+ (3 of 3 - PPSV23 or PCV20) [facility] Start: 05-08-2023 PNEUMOCOCCAL: 65+ (3 - PPSV23 or PCV20) PNEUMOCOCCAL: 65+ (3 - PPSV23 or PCV20) [facility] Start: 03-13-2023 [facility] Start: 03-03-2023 End: 05-03-2023 Comprehensive metabolic 2000 panel - Serum or Plasma COMP METABOLIC PANEL Lab Routine ELENA (acute kidney injury) (HCC) Expected: 03/03/2023, Expires: 05/03/2023 [facility] Work Phone: Comment on above: Expected: 03/03/2023, Expires: Start: 01-27-2023 Covid-19 Vaccine ( season) Covid-19 Vaccine () [facility] Start: 01-27-2023 Influenza vaccination [facility] Start: 10-17-2022 Colonoscopy COLONOSCOPY [facility] Start: 10-17-2022 COLORECTAL CANCER SCREENING COLORECTAL CANCER SCREENING [facility] Start: 10-17-2022 Screening for malignant neoplasm of colon [facility] Start: 09-03-2022 [facility] Start: 07-26-2022 Patient referral [facility] Work Phone: Start: 07-25-2022 Patient referral [facility] Work Phone: Start: 2022 ADVANCE DIRECTIVE DISCUSSION ADVANCE DIRECTIVE DISCUSSION [facility] Start: 2022 BONE DENSITY BONE DENSITY [facility] Start: 2022 PNEUMOCOCCAL: 65+ (2 - PPSV23 if available, else PCV20) PNEUMOCOCCAL: 65+ (2 - PPSV23 if available, else PCV20) [facility] Start: 2022 PNEUMOCOCCAL: 65+ (2 - PPSV23 or PCV20) PNEUMOCOCCAL: 65+ (2 - PPSV23 or PCV20) [facility] Start: 06-08-2022 Patient discharge [facility] Start: 06-08-2022 Telepractice consultation [facility] Start: 06-08-2022 [facility] Start: 06-07-2022 Aspiration precautions [facility] Start: 06-07-2022 Assessment of risk of venous thromboembolism [facility] Start: 06-07-2022 Cardiac monitoring [facility] Start: 06-07-2022 Catheterization of vein [facility] Start: 06-07-2022 Continuous pulse oximetry [facility] Start: 06-07-2022 Elevation of head of bed [facility] Start: 06-07-2022 Exercises [facility] Start: 06-07-2022 Fall prevention [facility] Start: 06-07-2022 Implementation of planned interventions [facility] Start: 06-07-2022 Incentive spirometry [facility] Start: 06-07-2022 Insertion of catheter into peripheral vein [facility] Start: 06-07-2022 Introduction of urinary catheter [facility] Start: 06-07-2022 Measuring intake and output [facility] Start: 06-07-2022 Notification of physician [facility] Start: 06-07-2022 Oxygen therapy [facility] Start: 06-07-2022 Patient referral to dietitian [facility] Start: 06-07-2022 Providing care according to standard [facility] Start: 06-07-2022 Provision of activity privileges [facility] Start: 06-07-2022 Referral to occupational therapist [facility] Start: 06-07-2022 Referral to service [facility] Start: 06-07-2022 Speech therapy assessment [facility] Start: 06-07-2022 Tobacco use cessation education [facility] Start: 06-07-2022 [facility] Start: 06-07-2022 Following clinical pathway protocol [facility] Start: 06-07-2022 Admission procedure [facility] Start: 02-15-2022 DIABETES SCREEN DIABETES SCREEN [facility] Start: 01-27-2022 Influenza vaccination [facility] Start: 01-11-2022 [facility] Work Phone: Start: 12-13-2021 Patient discharge [facility] Work Phone: Start: 12-12-2021 Application of intermittent pneumatic compression device [facility] Work Phone: Start: 12-12-2021 Following clinical pathway protocol [facility] Work Phone: Start: 12-12-2021 Assessment of risk of venous thromboembolism [facility] Work Phone: Start: 12-12-2021 Continuous pulse oximetry [facility] Work Phone: Start: 12-12-2021 Elevation of affected extremity [facility] Work Phone: Start: 12-12-2021 Elevation of head of bed [facility] Work Phone: Start: 12-12-2021 Fall prevention [facility] Work Phone: Start: 12-12-2021 Incentive spirometry [facility] Work Phone: Start: 12-12-2021 Inhalation therapy procedure [facility] Work Phone: Start: 12-12-2021 Insertion of catheter into peripheral vein [facility] Work Phone: Start: 12-12-2021 Introduction of urinary catheter [facility] Work Phone: Start: 12-12-2021 Measuring intake and output [facility] Work Phone: Start: 12-12-2021 Oxygen therapy [facility] Work Phone: Start: 12-12-2021 Providing care according to standard [facility] Work Phone: Start: 12-12-2021 Provision of activity privileges [facility] Work Phone: Start: 12-12-2021 Referral to clothing sales assistant [facility] Work Phone: Start: 12-12-2021 Referral to service [facility] Work Phone: Start: 12-12-2021 Vital signs measurements [facility] Work Phone: Start: 12-12-2021 Wound care [facility] Work Phone: Start: 12-12-2021 [facility] Work Phone: Start: 12-12-2021 X-ray of both feet Foot min 3 Views [facility] Work Phone: Start: 12-12-2021 Admission procedure [facility] Work Phone: Start: 12-12-2021 Verification routine [facility] Work Phone: Start: 12-12-2021 [facility] Work Phone: Start: 12-12-2021 Patient referral to dietitian [facility] Work Phone: Start: 09-21-2021 Colonoscopy flx dx w/collj spec when pfrmd DIAGNOSTIC COLONOSCOPY [facility] Work Phone: Start: 03-31-2021 COVID-19 VACCINE (3 - Booster for Moderna series) COVID-19 VACCINE (3 - Booster for Moderna series) [facility] Start: 12-24-2020 COVID-19 VACCINE (3 - Booster for Moderna series) COVID-19 VACCINE (3 - Booster for Moderna series) [facility] Start: 12-24-2020 COVID-19 VACCINE (3 - Moderna series) COVID-19 VACCINE (3 - Moderna series) [facility] Start: 05-26-2020 SHINGRIX VACCINE (2 of 2) SHINGRIX VACCINE (2 of 2) [facility] Start: 03-03-2020 LIPID SCREEN LIPID SCREEN [facility] Start: 2017 RSV Vaccine (1 - 1-dose 60+ series) RSV Vaccine (1 - 1-dose 60+ series) [facility] Start: 2017 RSV Vaccine (1 - Risk 60-74 years 1-dose series) RSV Vaccine (1 - Risk 60-74 years 1-dose series) [facility] Start: 11-25-2015 Mammography [facility] Start: 08-30-2013 FECAL OCCULT BLOOD FECAL OCCULT BLOOD [facility] Start: 08-30-2013 Screening for malignant neoplasm of colon Fecal Occult Blood [facility] Start: 03-04-2013 Urine microalbumin profile [facility] Start: 2007 Influenza vaccination LUNG CANCER SCREENING [facility] Start: 2007 SHINGRIX VACCINE (1 of 2) SHINGRIX VACCINE (1 of 2) [facility] Start: 2002 COLOGUARD (FIT-DNA) COLOGUARD (FIT-DNA) [facility] Start: [address] COLONOGRAPHY [facility] Start: 2002 Screening for malignant neoplasm of colon [facility] Start: 2002 SIGMOIDOSCOPY SIGMOIDOSCOPY [facility] Start: 1987 Zoledronic acid therapy ALPHA-1 ANTITRYPSIN DEFICIENCY SCREENING [facility] Start: 1975 BP CONTROLLED (<130/80) BP CONTROLLED (<130/80) [facility] Start: 1975 HEPATITIS C SCREENING HEPATITIS C SCREENING [facility] Start: 1975 Hepatitis C screening Hepatitis C Screening [facility] Start: 1975 HIV SCREENING HIV SCREENING [facility] Start: 1975 HIV screening HIV Screening [facility] Start: 1975 SPIROMETRY SPIROMETRY [facility] Anaerobic Culture Anaerobic Culture [facility] Work Phone: Bacteria identified in Unspecified specimen by Anaerobe culture [facility] Work Phone: Bacteria identified in Urine by Culture URINE CULTURE Microbiology Routine Acute right-sided low back pain with right-sided sciatica 11/07/2022 4:28 PM EDT [facility] Work Phone: Bacteria identified in Wound by Culture [facility] Work Phone: Cardiac event recording [facility] Work Phone: Catheterization of l eft heart [facility] COVID & INFLUENZA A/ B & RSV PCR, ROUTINE COVID & INFLUENZA A/B & RSV PCR, ROUTINE Microbiology Routine Nasal congestion Rhinorrhea 02/20/2024 11:19 AM EDT [facility] COVID & INFLUENZA A/ B & RSV PCR, ROUTINE COVID & INFLUENZA A/B & RSV PCR, ROUTINE Microbiology Routine URI, acute Ordered: 07/11/2024 [facility] Work Phone: Comment on above: Ordered: 07/11/2024 CT Chest [facility] Work Phone: CT Chest [facility] CT Chest [facility] End: 03-08-2024 Ct thorax w/o contrast material CT CHEST WO IVCON Radiology Routine Lung nodules 1 Occurrences starting 02/07/2023 until 03/08/2024 [facility] Work Phone: Comment on above: 1 Occurrences starting 02/07/2023 until 03/08/2024 End: 05-03-2025 DBT Breast - bilateral screening LUIS SCREENING W CALI Radiology Routine Encounter for screening mammogram for breast cancer 1 Occurrences starting 04/03/2024 until 05/03/2025 [facility] Work Phone: Comment on above: 1 Occurrences starting 04/03/2024 until 05/03/2025 End: 08-17-2024 EGD DIAGNOSTIC EGD DIAGNOSTIC Endoscopy Routine Screening for colon cancer History of colonic polyps Epigastric pain Blood in stool 1 Occurrences starting 08/18/2023 until 08/17/2024 [facility] Work Phone: Comment on above: 1 Occurrences starting 08/18/2023 until 08/17/2024 End: 08-17-2024 Flexible sigmoidoscopy study COLONOSCOPY DIAGNOSTIC Endoscopy Routine Screening for colon cancer History of colonic polyps Epigastric pain Blood in stool 1 Occurrences starting 08/18/2023 until 08/17/2024 [facility] Work Phone: Comment on above: 1 Occurrences starting 08/18/2023 until 08/17/2024 Hemoglobin.gastroint est inal.lower [Presence] in Stool by Immunoassay IMMUNOCHEMICAL FECAL OCCULT BLOOD TEST Lab Routine Dark stools Ordered: 08/06/2024 [facility] Work Phone: Comment on above: Ordered: 08/06/2024 Injection aa&/strd other peripheral nerve/branch INJECT ANESTH AGENT Procedures Routine Left leg pain Ordered: 12/30/2021 [facility] Work Phone: Comment on above: Ordered: 12/30/2021 End: 03-26-2024 LUIS DIAGNOSTIC LEFT LUIS DIAGNOSTIC LEFT Radiology Routine Abnormal mammogram 1 Occurrences starting 02/25/2023 until 03/26/2024 [facility] Work Phone: Comment on above: 1 Occurrences starting 02/25/2023 until 03/26/2024 Microscopic observat ion [Identifier] in Unspecified specimen by Gram stain Gram Stain [facility] Work Phone: End: 09-05-2025 MR Liver WO and W contrast IV MRI LIVER WO/W IVCON Radiology Routine Hepatic cyst 1 Occurrences starting 08/06/2024 until 09/05/2025 [facility] Comment on above: 1 Occurrences starting 08/06/2024 until 09/05/2025 MR Liver WO and W contrast IV MRI LIVER WO/W IVCON Radiology Routine Hepatic cyst 08/12/2024 2:17 PM EDT [facility] Work Phone: End: 09-05-2025 NM Biliary ducts and Gallbladder Views for patency of biliary structures and ejection fraction W sincalide and W radionuclide IV NM HEPATOBILIARY W EF AND/OR RX Radiology Routine Nausea RUQ pain 1 Occurrences starting 08/06/2024 until 09/05/2025 [facility] Comment on above: 1 Occurrences starting 08/06/2024 until 09/05/2025 Patient Education [facility] Work Phone: Patient referral [facility] Work Phone: SURGICAL PATHOLOGY [facility] Work Phone: Comment on above: Release Upon Ordering for 1 Occurrences starting 09/04/2023, 1 completed End: 05-19-2025 US Abdomen US SOFT TISSUE ABDOMEN Radiology Routine RLQ abdominal mass 1 Occurrences starting 04/19/2024 until 05/19/2025 [facility] Work Phone: Comment on above: 1 Occurrences starting 04/19/2024 until 05/19/2025 US Abdomen US SOFT TISSUE A BDOMEN Radiology Routine RLQ abdominal mass 04/19/2024 2:37 PM EST [facility] End: 03-26-2024 US BREAST LTD LEFT US BREAST LTD LEFT Radiology Routine Abnormal mammogram 1 Occurrences starting 02/25/2023 until 03/26/2024 [facility] Work Phone: Comment on above: 1 Occurrences starting 02/25/2023 until 03/26/2024 End: 01-29-2024 US EXTREMITY MASS/FLUID COLLECTION LEFT US EXTREMITY MASS/FLUID COLLECTION LEFT Radiology Routine Left thigh pain 1 Occurrences starting 12/30/2022 until 01/29/2024 [facility] Work Phone: Comment on above: 1 Occurrences starting 12/30/2022 until 01/29/2024 US EXTREMITY MASS/FL UID COLLECTION LEFT US EXTREMITY MASS/FLUID COLLECTION LEFT Radiology Routine Left thigh pain 01/06/2023 1:58 PM EDT [facility] Work Phone: US Kidney - bilatera l and Urinary bladder US KIDNEY/BLADDER Radiology Routine Stage 3a chronic kidney disease (HCC) 07/31/2023 2:30 PM EST [facility] Work Phone: Wound Culture Wound Culture [facility] Work Phone: End: 05-29-2025 XR Knee - right 4 Views XR KNEE GENERAL 4V AP BOTH/PA BOTH/LAT/MERC RIGHT Radiology Routine Falls frequently Knee gives out, right 1 Occurrences starting 04/29/2024 until 05/29/2025 [facility] Comment on above: 1 Occurrences starting 04/29/2024 until 05/29/2025 XR Knee - right 4 Views XR KNEE GENERAL 4V AP BOTH/PA BOTH/LAT/MERC RIGHT Radiology Routine Falls frequently Knee gives out, right 04/29/2024 1:21 PM EST [facility] Immunizations Immunization Date Immunization Notes Care Provider Jennifer gill 06-27-2023 pneumococcal conjuga te (PCV20) vaccine, 20 valent (PREVNAR 20) Us 2 Work Phone: [facility] 03-31-2020 zoster vaccine recombinant Tatiana Ronquillo MD Work Phone: [facility] Work Phone: 02-14-2020 influenza, injectabl e, quadrivalent, preservative free Tatiana Ronquillo MD Work Phone: [facility] Work Phone: 02-14-2020 influenza virus vaccine, unspecified formulation Barrett Falk [employer] Work Phone: [facility] 02-16-2019 influenza, injectabl e, quadrivalent, preservative free Halle Sandoval PA-C Work Phone: [facility] 05-08-2018 pneumococcal polysaccharide vaccine, 23 valviki Ronquillo MD Work Phone: [facility] Work Phone: 03-12-2018 Influenza virus vaccine [facility] Work Phone: [facility] 03-12-2018 influenza, seasonal, injectable, preservative free Tatiana Ronquillo MD Work Phone: [facility] Work Phone: 01-30-2017 Influenza virus vaccine [facility] Work Phone: [facility] 01-30-2017 influenza, seasonal, injectable, preservative free Tatiana Ronquillo MD Work Phone: [facility] Work Phone: 03-03-2015 influenza, injectabl e, quadrivalent, contains preservative Halle Sandoval PA-C Work Phone: [facility] 10-08-2014 pneumococcal conjuga te vaccine, 13 valent Halle Sandoval PA-C Work Phone: [facility] 03-27-2014 influenza, seasonal, injectable Halle Sandoval PA-C Work Phone: [facility] 07-27-2013 pneumococcal polysaccharide vaccine, 23 valent Tatiana Ronquillo MD Work Phone: [facility] Work Phone: 07-27-2013 [facility] Work Phone: [facility] Work Phone: 07-27-2013 pneumococcal vaccine , unspecified formulation [facility] Work Phone: [facility] 03-03-2013 tetanus and diphther ia toxoids, adsorbed, preservative free, for adult use (2 Lf of tetanus toxoid and 2 Lf of diphtheria toxoid) [facility] Work Phone: [facility] 03-03-2013 tetanus and diphther ia toxoids, not adsorbed, for adult use Halle SUÁREZBoundless [employer] Work Phone: [facility] Work Phone: 03-02-2013 influenza virus vaccine, unspecified formulation Halle SUÁREZ-Kira Work Phone: [facility] 02-24-2012 influenza virus vaccine, unspecified formulation Halle SUÁREZ-C Work Phone: [facility] Work Phone: Payers Date Payer Category Payer Self-pay [id number] 2023 Unknown [id number] 2021 Medicaid [facility] MEDICAID [id number] 2021-Present [phone] [address] [place] [address] Medicaid [id number] 2021 Medicaid [id number] 2021 Medicare [facility] DUAL COMPLETE HMO SNP [id number] 2021-Present [phone] [address] [place] [address] Medicare [id number] 2021 Medicare [id number] 2021 Medicare (Managed Care) 1.2. [id number] 2021 Unknown [id number] 2015 Unknown [id number] 2014 Medicare [id number] Private Health Insurance [facility] [id number] Unknown [id number] Unknown [id number] Unknown [id number] 462 Unknown [id number] 462 Unknown [id number] 462 Unknown [id number] 462 Unknown [id number] 462 Unknown [id number] Unknown [id number] Social History Date Type Detail Facility Start: 08-17-2021 End: 09-29-2023 Tobacco smoking status NHIS Unknown if ever smoked [facility] Start: 07-15-2020 None [facility] Start: 07-15-2020 Alone [facility] Start: 10-16-2020 Non-smoker [facility] Start: 1955 Sex Assigned At Female W [facility] Start: 09-28-2021 End: 01-31-2025 Tobacco smoking status NHIS Ex-smoker [facility] Start: 07-27-1978 End: 07-27-2020 History of tobacco use Current smoker [facility] Start: 07-27-1978 End: 07-27-2020 History of tobacco use Cigarette Smoker [facility] Start: 09-28-2021 End: 11-14-2022 Cigarettes smoked current (pack per day) - Reported 1 [facility] Start: 09-28-2021 End: 01-22-2024 Tobacco use and exposure Smokeless tobacco non-user [facility] Start: 09-28-2021 End: 01-22-2024 Alcohol intake Current non-drinker of alcohol (finding) [facility] Start: 09-28-2021 End: 02-03-2022 Tobacco Comment d/c 07/27/2020 [facility] Start: 1955 Sex Assigned At Not on file [facility] Start: 09-18-2021 End: 04-14-2022 Exposure to SARS-CoV-2 (event) Not sure [facility] Start: 11-07-2022 End: 11-14-2022 Tobacco use panel [facility] Start: 04-29-2012 Adult Depression Screening Assessment 1 [facility] Has the [employer], [employer], [employer], or [employer] threatened to shut off services in your home in past 12Mo No [facility] Are you now , , , , never or living with a partner? [facility] How often to you hav e a drink containing alcohol? Never [facility] Do you feel stress - tense, restless, nervous, or anxious, or unable to sleep at night because your mind is troubled all the time - these days [OSQ] To some extent [facility] (I/We) worried carola er (my/our) food would run out before (I/we) got money to buy more. Never true [facility] Start: 09-29-2023 Gender identity Identifies as female gender (finding) [facility] Goals Date Patient Goal Desired Activity /State Functional Status Date Assessment Result Facility 06-08-2022 Functional status Bedrest [facility] Work Phone: 12-13-2021 Functional status Ambulates [facility] Work Phone: 02-16-2019 Are you deaf, or do you have serious difficulty hearing No 02/16/2019 12:48 PM EDSam Waterman, RN No [facility] 02-16-2019 Are you blind, or do you have serious difficulty seeing, even when wearing glasses No 02/16/2019 12:48 PM Sam Mercado, RN No [facility] 02-16-2019 Do you have serious difficulty walking or climbing stairs No 02/16/2019 12:48 PM Sam Mercado, RN No [facility] 02-16-2019 Do you have difficul ty dressing or bathing No 02/16/2019 12:48 PM Sam Mercado, RN No [facility] 02-16-2019 Because of a physica l, mental, or emotional condition, do you have difficulty doing errands alone such as visiting a physician's office or shopping No 02/16/2019 12:48 PM Sam Mercado, RN No [facility] Mental Status Date Assessment Result Facility 07-19-2024 Cognitive function Level Of Cons ciousness Awake;Alert;Appropriate;Fol lows Commands [facility] Work Phone: 08-14-2023 Cognitive function Level Of Cons ciousness Awake;Alert;Appropriate;Fol lows Commands [facility] Work Phone: 12-01-2022 Cognitive function Level Of Cons ciousness Awake;Alert;Appropriate;Fol lows Commands [facility] Work Phone: 11-02-2022 Cognitive function Voice/Name [facility] Work Phone: 09-03-2022 Cognitive function Level Of Cons ciousness Awake;Alert;Appropriate;Fol lows Commands [facility] Work Phone: 06-08-2022 Cognitive function Voice/Name [facility] Work Phone: 04-07-2022 Cognitive function Level Of Cons ciousness Awake;Alert;Appropriate;Fol lows Commands [facility] Work Phone: 12-13-2021 Cognitive function Voice/Name [facility] Work Phone: 09-21-2021 Cognitive function Touch/Shaking [facility] Work Phone: 09-21-2021 Cognitive function Patient Kyle delgado Person;Place;Time [facility] Work Phone: 07-10-2021 Cognitive function Level Of Cons ciousness Awake;Alert;Appropriate;Fol lows Commands [facility] Work Phone: 02-16-2019 Because of a physica l, mental, or emotional condition, do you have serious difficulty concentrating, remembering, or making decisions No 02/16/2019 12:48 PM EDT Sam Traore RN No [facility] Clinical Notes 02-16-2019 to 03-26-2025 Note Date & Type Note Facility 03-26-2025 Note HNO ID: [id number] Author: SHAVONNE DONATO APRN.[employer] Service: ? Author Type: Nurse Practitioner Type: Progress Notes Filed: 03/26/2025 13:22 Note Text: 03/26/2025 Patient presents with: Follow Up Recording using [employer] software for draft documentation of the visit was discussed with the patient/authorized personal financial representative; all questions welcomed and answered. Patient/authorized personal financial representative agreed to proceed SUBJECTIVE: This is [...] Has grandchildren. - History of living in [place] and [place]; expresses a desire to return to [place]. - History of a difficult marriage; after 25 years. PAST MEDICAL HISTORY Diagnosis Date Abdominal pain, right lower quadrant Benign neoplasm of colon Chronic kidney disease (CKD), stage III (moderate) ([facility]) COPD (chronic obstructive pulmonary disease) ([facility]) Dr. Wallace Depression Dysuria Generalized anxiety disorder [...] Left leg, managed by plastic surgery Stroke ([facility]) x 4 Suprapubic pain Vitamin D deficiency [...] Cancer Screening due (more content not included)... [facility] 03-11-2025 Note HNO ID: [id number] Author: SETH DENNY ARYx Therapeuticso Tech Service: ? Author Type: Technologist Type: [...] PATIENT PRESENTS WITH AN IMPLANTABLE OR ATTACHED AUTOMATIC OPERATOR: No RADIOLOGY DEPARTMENT: Mammography PERIPHERAL IV DATA: Not applicable SIGNED BY: Seth Denny [facility] March 11, 2025 1:18 PM [facility] 03-04-2025 Note Patient Outreach (FA MPWS) TEMITOPE HADDAD ([id number]) 1955 F CHT Date Time Provider Department [...] mammogram for breast cancer [Z12.31] Order(s):LUIS LEIVA [[id number]] Order #: [id number] FUTURE Prescriptions as of 04/04/2025 - losartan [...] Encounter Status:Closed by EPIC, PRODUSER on 04/04/25 [facility] 02-26-2025 Note HNO ID: [id number] Author: ARABELLA BARCLAY Tech Service: ? Author Type: Rod Machine Operator Type: Progress Notes Filed: 02/26/2025 13:20 Note [...] PATIENT PRESENTS WITH AN IMPLANTABLE OR ATTACHED AUTOMATIC OPERATOR: No RADIOLOGY DEPARTMENT: General X-ray: Exam(s) Completed: Upper Extremity X-Ray(s): Fingers/Thumb, right PERIPHERAL IV DATA: Not applicable SIGNED BY: Darleen Gross February 26, 2025 1:20 PM [facility] 02-26-2025 Note HNO ID: [id number] Author: TATIANA RONQUILLO MD Service: ? Author Type: Physician Type: Progress Notes Filed: 02/26/2025 13:13 Note Text: Chief Complaint Patient presents with: ER F/U Recording using [employer] software for draft documentation of the visit was discussed with the patient/authorized personal financial representative; all questions welcomed and answered. Patient/authorized personal financial representative agreed to proceed HPI Temitope Haddad [...] bruising or scrapes. - Initial evaluation at [facility] included x-rays of the hand and [...] Chronic kidney disease (CKD), stage III (moderate) ([facility]) COPD (chronic obstructive pulmonary disease) ([facility]) Dr. Wallace Depression Dysuria Generalized anxiety disorder [...] Left leg, managed by plastic surgery Stroke ([facility]) x 4 Suprapubic pain Vitamin D deficiency [...] cholesterol. pantoprazole (PROT (more content not included)... [facility] 01-31-2025 Radiology Diagnostic study note [facility] Imaging Services [address] [place] [id number] Brain/Head without Contrast MR#: [id number] Acct: [id number] Name: TEMITOPE HADDAD Rep #: [id number] : 1955 F 69 From: Danilo Barrios MD PCP: Dr. Bird Ronquillo MD Status: REG ER Study:Brain/Head without Contrast Date of Exa m: 01/31/25 Exam# [id number] Ordering Dr: Kira Payne DO PROCEDURE: BRAIN/HEAD [...] Contrast IMPRESSION: No acute abnormality Reading Location: [facility] CC: Dr. Bird Ronquillo MD; Dr. Jenni Payne, ~ Stone Engraver: Signed [facility] 01-31-2025 Radiology Diagnostic study note [facility] Imaging Services [address] [place], [place] [id number] Hand Min 3 Views MR#: [id number] Acct: [id number] Name: HADDADTEMITOPE TADEO Rep #: [id number] : 1955 F 69 From: Richard Bull MD PCP: Dr. Bird Ronquillo MD Status: PRE ER Study:Hand Min 3 Views Date of Exam: 10/20 Exam# [id number] Ordering Dr: Provider ,Ed P. PROCEDURE: HAND MIN 3 VIEWS 01/31/2025 REASON FOR EXAM: PAIN. Patient fell 2 days ago. TECHNIQUE: Procedure Code: PENDING SALE TO [facility] Modality: DX Procedure: HAND MIN 3 VIEWS Laterality: Right COMPARISON: 07/19/2022 FINDINGS: BONES: No acute fracture or focal osseous lesion. JOINTS: No dislocation. The joint spaces are preserved. SOFT TISSUES: The soft tissues are unremarkable. RAD/Hand Min 3 Views IMPRESSION: No acute osseous abnormality. Reading Location: [facility] CC: Dr. Bird Ronquillo MD; ED PHYSICIAN PROVIDER ~ Stone Engraver: Signed [facility] 01-31-2025 Radiology Diagnostic study note [facility] Imaging Services [address] [place] [address] Shoulder min 2 Views MR#: [id number] Acct: [id number] Name: TEMITOPE HADDAD Rep #: [id number] : 1955 F 69 From: Richard Bull MD PCP: Dr. Bird Ronquillo MD Status: PRE ER Study:Shoulder min 2 Views Date of Exam: 01/31/25 Exam# [id number] Ordering Dr: Ervin Seaman PROCEDURE: SHOULDER MIN [...] IMPRESSION: No acute osseous abnormality. Reading Location: [facility] CC: Dr. Bird Ronquillo MD; ED PHYSICIAN PROVIDER ~ Stone Engraver: Signed [facility] 01-31-2025 Hospital Discharg e instructions Additional Instructions [...] 2 weeks. [facility] Work Phone: 01-19-2025 Discharge summary [facility] 01-19-2025 Radiology Diagnostic study note [facility] Imaging Services [address] [place] [address] Lumbar Spine 2 or 3 Views MR#: [id number] Acct: [id number] Name: TEMITOPE HADDAD Rep #: [id number] : 1955 F 69 From: Pet er Peer DO PCP: Dr. Bird Ronquillo MD Status: REG ER Study:Lumbar Spine 2 or 3 Views Date of Exam: 01/19/25 Exam# [id number] Ordering Dr: Naif Jackson MD PROCEDURE: LUMBAR [...] IMPRESSION: No acute process detected. Reading Location: [facility] CC: Dr. Naif Jackson MD; Dr. Bird Ronquillo MD ~ Stone Engraver: Signed [facility] 01-19-2025 Discharge summary Note Date/Time January 19, 2025 6:45pm [facility] Medical Records Department [address] [place] [address] Emergency Department Summary 01/19/25 MR#: [id number] Acct: [id number] Name: TEMITOPE HADDAD Rep #:[id number] : 1955 69 From: Naif Jackson MD [...] No dysuria or hematuria or other symptoms. [facility] Medical History Osteoporosis Kidney stones Kidney disease GERD (gastroesophageal reflux disease) Myocardial infarct Internal impingement of right shoulder Hypothyroidism Abnormal Holter monitor finding Sinus pause Mixed hyperlipidemia Atherosclerotic heart disease of [place] coronary artery without angina pectoris Essential hypertension [...] IMPRESSION: No acute process detected. Reading [facility] Discharge Plan Triage Chief Complaint: Back [...] Therapy and other outpatient imaging. Print Language: Greek Disposition Disposition: Home, Self Care What to do if you have Problems For any increased pain, shortness of breath, bleeding, nausea or vomiting, chestpain, or any unexpected problems, contact your Primary Care Provider. Call [facility] ([phone]) or report to the closest Emergency Room. Call 911 if necessary. 01/19/251844 <Electronically signed by Naif Jackson MD> Cosigner Signature (if applicable): CC: Dr. Bird Ronquillo MD ~ Signed [facility] Work Phone: 1(371) 697-690808-13-2025 Miscellaneous Notes* Telephone Encounter - Fadumo Alvarado RN - 01/08/2025 4:26 PM EDT Patient calling for refills on Plavix and levothyroxine. Advised patient that there should be refills at [facility]. Fadumo Alvarado RN documented in [facility] Telephone encounter Note * Telephone Encounter - Fadumo Alvarado RN - 01/08/2025 4:26 PM EDT Patient calling for refills on Plavix and levothyroxine. Advised patient that there should be refills at [facility]. Fadumo Alvarado RN [facility]07-22-2025 Telephone encounter Note* Telephone Encounter - Fadumo [...] Alvarado RN December 17, 2024 4:10 PM [facility]07-22-2025 Miscellaneous Notes* Telephone Encounter - Fadumo Alvarado [...] 17, 2024 4:10 PM documented in this encounterW[facility] Evaluation note* Diagnosis Onset Date Resolution Status Admit Date Chronic hypoxic respiratory failure chronic December 05, 2024 1:54pm Lung nodule chronic December 05 1:54pm 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 December 05, 2024 1:54pm [facility] Work Phone: 1(346) 302-919607-03-2025 Telephone encounter Note* Telephone Encounter - Dominga [...] at bedtime. For cholesterol. Dominga Whitley RN [facility]07-03-2025 Miscellaneous Notes* Telephone Encounter - Dominga Whitley [...] cholesterol. Dominga Whitley RN documented in this encounterW[facility]06-23-2025 Radiology Diagnostic study note [facility] Imaging Services [address] [place] [id number] Lung Screening MR#: [id number] Acct: [id number] Name: TEMITOPE HADDAD Rep #: [id number] : 1955 F 69 From: Abner Castillo MD PCP: Dr. Bird Ronquillo MD Status: [facility] CLI Study:Low Dose CT Lung Screening Date of Exam : 11/18/24 Exam# [id number] Ordering Dr: Kira Fernandez NP STONE LATHE OPERATOR-C PROCEDURE: LOW DOSE CT LUNG SCREENING 11/18/2024 [...] use of iterative reconstruction technique). REFERENCE LINK: ProntoForms Lung-RADS RADIATION DOSE SUMMARY: CTDlvol: 3.02 mGy [...] LDCT. Other Significant Findings: None. Reading Location: [facility]ELOG[facility]VD[facility]-A CC: CARLO Fernandez; Dr. Bird Ronquillo MD ~ Stone Engraver: Signed [facility]06-11-2025 Telephone encounter Note* Telephone Encounter - Desirae [...] Desirae Donis November 06, 2024 12:50 PM [facility]06-11-2025 Miscellaneous Notes* Telephone Encounter - Desirae Donis [...] 06, 2024 12:50 PM documented in this encounterWright-Patterson [facility]05-28-2025 Telephone encounter Note * Telephone Encounter - Talita Preston LPN - 10/23/2024 12:39 PM EDT Phoned patient and reviewed message with her. She voiced understanding. Talita Preston LPN [facility]05-28-2025 Miscellaneous Notes* Telephone Encounter - Talita Preston LPN - 10/23/2024 12:39 PM EDT Phoned patient and reviewed message with her. She voiced understanding. Talita Preston LPN * Telephone Encounter - Talita Preston LPN - 10/23/2024 12:38 PM EDT ----- Message from Tatiana Ronquillo MD sent at 10/23/2024 12:31 PM EDT ----- Xray of the right tib/fib is negative for fracture. documented in this encounterWright-Patterson [facility] Center05-28-2025 Telephone encounter Note * Telephone Encounter - Talita Preston LPN - 10/23/2024 12:38 PM EDT ----- Message from Tatiana Ronquillo MD sent at 10/23/2024 12:31 PM EDT ----- Xray of the right tib/fib is negative for fracture. [facility]05-28-2025 History of Present illness Narrative* Faby Rivas [...] PATIENT PRESENTS WITH AN IMPLANTABLE OR ATTACHED AUTOMATIC OPERATOR: No RADIOLOGY DEPARTMENT: General X-ray: Exam(s) Completed: Lower Extremity X- Ray(s): Tibia Fibula, Right PERIPHERAL IV DATA: Not applicable SIGNED BY: SEDA Delong) October 23, 2024 11:06 AM documented in this encounterWright-Patterson Medical Center05-28-2025 NoteHNO ID: [id number] Author: FABY RIVAS RT (R) Service: Radiology [...] PATIENT PRESENTS WITH AN IMPLANTABLE OR ATTACHED AUTOMATIC OPERATOR: No RADIOLOGY DEPARTMENT: General X-ray: Exam(s) Completed: Lower Extremity X-Ray(s): Tibia Fibula, Right PERIPHERAL IV DATA: Not applicable SIGNED BY: Faby Rivas RT(R) October 23, 2024 11:06 [facility]05-28-2025 Instructions* Patient Instructions* Tatiana Ronquillo MD - [...] pass gas or stools documented in this encounterWright-Patterson Medical Center05-28-2025 NoteHNO ID: [id number] Author: TATIANA RONQUILLO MD Service: ? Author Type: Physician Type: Progress Notes Filed: 10/23/2024 11:15 Note Text: Chief Complaint Patient presents with: ER F/U: Patient to ER 2 separate visits and continues to have pain Recording using ambient AI software for draft documentation of the visit was discussed with the patient/authorized personal financial representative; all questions welcomed and answered. Patient/authorized personal financial representative agreed to proceed HPI Temitope Haddad [...] (moderate) (HCC) COPD (chronic obstructive pulmonary disease) ([facility]) Dr. Wallace Depression Dysuria Generalized anxiety disorder [...] sisters Coronary Artery Disease (more content not included)...[facility] 10-23-2024 History of Present illness Narrative* Tatiana Ronquillo MD - 10/23/2024 10:24 AM EDT Chief Complaint Patient presents with: ER F/U: Patient to ER 2 separate visits and continues to have pain Recording using ambient AI software for draft documentation of the visit was discussed with the patient/authorized personal financial representative; all questions welcomed and answered. Patient/authorized personal financial representative agreed to proceed HPI Temitope Haddad [...] Chronic kidney disease (CKD), stage III (moderate) ([facility]) COPD (chronic obstructive pulmonary disease) ([facility]) Dr. Wallace Depression Dysuria Generalized anxiety disorder [...] Left leg, managed by plastic surgery Stroke ([facility]) x 4 Suprapubic pain Vitamin D deficiency [...] fracture. Tatiana Ronquillo MD documented in this encounterWright-Patterson Medical Center05-18-2025 Radiology Diagnostic study note [facility] Imaging Services [address] [place] [address] [id number] Abdomen/Pelvis W IV Cont ONLY MR#: [id number] Acct: [id number] Name: TEMITOPE HADDAD Rep #: [id number] : 1955 F 69 From: Sandra Up MD PCP: Dr. Bird Ronquillo MD Status: REG ER Study:Abdomen/Pelvis W IV Cont ONLY Date of E xam: 10/13/24 Exam# [id number] Ordering Dr: Colin Argueta DO PROCEDURE: ABDOMEN/PELVIS [...] pelvis. Colonic diverticulosis without diverticulitis. Reading [facility] CC: Dr. Colin Caba DO; Dr. Bird Ronquillo MD ~ Stone Engraver: Signed [facility]05-08-2025 Telephone encounter Note* Telephone Encounter - Dominga [...] Dominga Mena October 03, 2024 12:58 PM [facility]05-08-2025 Miscellaneous Notes* Telephone Encounter - Dominga Lowery [...] 03, 2024 12:58 PM documented in this encounterWright-[facility]04-02-2025 Telephone encounter Note * Telephone Encounter - Talita Preston LPN - 08/28/2024 8:22 AM EDT Patient updated and voiced understanding. Talita Preston LPN [facility]04-02-2025 Miscellaneous Notes* Telephone Encounter - Talita Preston [...] to improve fatty liver. documented in this encounterWright-Patterson Medical Center04-01-2025 Telephone encounter Note * Telephone Encounter - Tatiana Ronquillo MD - 08/27/2024 8:55 PM EDT Per her HIDA scan result note, I do not believe her gallbladder would be cause for her pain and would not recommend anything further for overactive GB. [facility]03-21-2025 Telephone encounter Note* Telephone Encounter - Talita [...] that would be fine. Talita Preston LPN' [facility]03-21-2025 Telephone encounter Note* Telephone Encounter - Talita Preston LPN - 08/16/2024 3:22 PM EDT ----- Message from Tatiana Ronquillo MD sent at 08/16/2024 12:43 PM EDT ----- MRI of the liver shows multiple liver cysts without concerning masses and signs of fatty liver disease. Liver cysts are benign. Recommend healthy diet and exercise to promote weight loss to improve fatty liver. [facility]03-17-2025 Telephone encounter Note* Telephone Encounter - Radha Mcnamara MA - 08/12/2024 2:10 PM EDT Pt notified of results via Smule. Radha Mcnamara Ma [facility]03-17-2025 Telephone encounter Note* Telephone Encounter - Radha Mcnamara MA - 08/12/2024 2:10 PM EDT ----- Message from Tatiana Ronquillo MD sent at 08/12/2024 1:01 PM EDT ----- FOBT negative. Repeat in 1 year to screen for colon cancer. [facility]03-17-2025 Miscellaneous Notes* Telephone Encounter - Radha Mcnamara MA - 08/12/2024 2:10 PM EDT Pt notified of results via Smule. Radha Mcnamara Ma * Telephone Encounter - Radha Mcnamara MA - 08/12/2024 2:10 PM EDT ----- Message from Tatiana Ronquillo MD sent at 08/12/2024 1:01 PM EDT ----- FOBT negative. Repeat in 1 year to screen for colon cancer. documented in this encounterWright-Pat[facility] Medical Center03-17-2025 History of Present illness Narrative* Nilson Golden, [...] PATIENT PRESENTS WITH AN IMPLANTABLE OR ATTACHED AUTOMATIC OPERATOR: No ALLERGIES: Reviewed and unchanged CONTRAST ALLERGY: NO. EXAM: MRI - CONTRAST TYPE: GROUP II PERIPHERAL IV DATA: Ambulatory: A peripheral IV was started in the Left antecubital site with a Angio cath: 22 gauge. RADIOLOGY DEPARTMENT: MR; Exam(s) Completed: Body: Liver (routine) SIGNATURE: RT Leigh Ann(R) PATIENT NAME: Temitope Haddad DATE: August 12, 2024 TIME: 1:54 PM documented in this encounterWright-Patterson Medical Center03-17-2025 NoteHNO ID: [id number] Author: NILSON GOLDEN RT(R) Service: ? Author [...] PATIENT PRESENTS WITH AN IMPLANTABLE OR ATTACHED AUTOMATIC OPERATOR: No ALLERGIES: Reviewed and unchanged CONTRAST ALLERGY: NO. EXAM: MRI - CONTRAST TYPE: GROUP II PERIPHERAL IV DATA: Ambulatory: A peripheral IV was started in the Left antecubital site with a Angio cath: 22 gauge. RADIOLOGY DEPARTMENT: MR; Exam(s) Completed: Body: Liver (routine) SIGNATURE: RT Leigh Ann(R) PATIENT NAME: Temitope Haddad DATE: August 12, 2024 TIME: 1:54 [facility]03-13-2025 History of Present illness Narrative* Darlyn [...] PATIENT PRESENTS WITH AN IMPLANTABLE OR ATTACHED AUTOMATIC OPERATOR: n/a CREATININE: Creatinine Date Value Ref Range [...] 13:10 PATIENT DISCHARGED TO: Ambulatory patient, left [place] department area. Is this a therapy: No A Diagnostic radioactive procedure has taken place, with no further precautions necessary other than routine body substance precautions. More information regarding radiation safety can be found usingthis link: [email or web address] [email or web address]%20Nuclear%20Medicine%20Procedures.[email or web address] SIGNATURE: SEDA Cheek) PATIENT NAME: Temitope Haddad DATE: August 08, 2024 TIME: 1:22 PM PAGER/CONTACT #: documented in this encounterWright-Patterson Medical Center03-13-2025 NoteHNO ID: [id number] Author: DARLYN HADDAD RT (R) Service: Nuclear [...] PATIENT PRESENTS WITH AN IMPLANTABLE OR ATTACHED AUTOMATIC OPERATOR: n/a CREATININE: Creatinine Date Value Ref Range [...] August 08, 2024 TIME: 1:22 PM PAGER/CONTACT #:[facility]03-11-2025 Instructions * Patient Instructions* Shavonne Donato APRN.BOW MAKER PRODUCTION - 08/06/2024 1:31 PM EDT BLAND DIET [...] chili, tacos, garlic, onions documented in this encounterWright-Patterson Medical Center03-11-2025 NoteHNO ID: [id number] Author: SHAVONNE DONATO APRN.WILVER Service: ? Author Type: Nurse Practitioner Type: Progress Notes Filed: 08/06/2024 14:00 Note Text: 08/06/2024 Patient presents with: ED Follow-up: [facility] 07/30/2024 for abdominal pain SUBJECTIVE: This is a 69 year old that is here today for Above Complaints HOSPITAL/ER FOLLOW UP: Reason for visit: RUQ pain Which facility: [facility] Date of visit: 07/31/2024 Diagnosis: RUQ pain [...] Chronic kidney disease (CKD), stage III (moderate) ([facility]) COPD (chronic obstructive pulmonary disease) ([facility]) Dr. Wallace Depression Dysuria Generalized anxiety disorder [...] years 1-dose series) (more content not included)... [facility]03-11-2025 History of Present illness Narrative* Shavonne Donato APRN.BOW MAKER PRODUCTION - 08/06/2024 1:21 PM EDT 08/06/2024 Patient presents with: ED Follow-up: [facility] 07/30/2024 for abdominal pain SUBJECTIVE: This is a 69 year old that is here today for Above Complaints HOSPITAL/ER FOLLOW UP: Reason for visit: RUQ pain Which facility: [facility] Date of visit: 07/31/2024 Diagnosis: RUQ pain [...] Chronic kidney disease (CKD), stage III (moderate) ([facility]) COPD (chronic obstructive pulmonary disease) ([facility]) Dr. Wallace Depression Dysuria Generalized anxiety disorder [...] Left leg, managed by plastic surgery Stroke ([facility]) x 4 Suprapubic pain Vitamin D deficiency [...] MAR - follow-up pending MRI Shavonne Suarezlogvickie, [employer]ARK[employer]OTTER.BOW MAKER PRODUCTION Prescription instructions reviewed with patient as applicable. [...] Level: 4 - Moderate documented in this encounterWright-Pat[facility] Center03-04-2025 Telephone encounter Note * Telephone Encounter - [...] pending on lab results. Marii Wilson LPN [facility]03-04-2025 Miscellaneous Notes* Telephone Encounter - Marii Wilson [...] results. Marii Wilson LPN documented in this encounterWright-Patterson Medical Center02-24-2025 Telephone encounter Note * Telephone Encounter - [...] 11/18/2024 Please advise. Thank you. Josue Cesar. [facility]02-24-2025 Miscellaneous Notes* Telephone Encounter - Josue Cesar [...] Thank you. Josue Cesar. documented in this encounterWright-Patterson Medical Center02-14-2025 Telephone encounter Note * Telephone Encounter - Rosaura Tristan MA - 07/12/2024 9:17 AM EST Pt called and notified of results and that Rx has been sent into the Pharmacy for her. Pt verbalized understanding. Rosauar Tristan MA [facility]02-14-2025 Miscellaneous Notes* Telephone Encounter - Rosaura Tristan MA - 07/12/2024 9:17 AM EST Pt called and notified of results and that Rx has been sent into the Pharmacy for her. Pt verbalized understanding. Rosaura Tristan MA * Telephone Encounter - Jennifer Sierra APRN.BOW MAKER PRODUCTION - 07/12/2024 8:05 AM EST Please let her know that her testing is positive for influenza A. She saw Moraima yesterday and she left me a note that Temitope would like Tamiflu if her testing was positive. I just sent this to [facility] for her. The following approved medication requests have been transmitted electronically. Requested Prescriptions Signed Prescriptions Disp Refills oseltamivir (TAMIFLU) 75 mg capsule 10 capsule 0 Sig: Take 1 capsule by mouth two times a day for 5 days. Jennifer Sierra APRN.CNP documented in this encounterWright-Patterson Medical Center02-14-2025 Telephone encounter Note * Telephone Encounter - Jennifer Sierra APRN.CNP - 07/12/2024 8:05 AM EST Please let her know that her testing is positive for influenza A. She saw Moraima yesterday and she left me a note that Temitope would like Tamiflu if her testing was positive. I just sent this to [facility] for her. The following approved medication requests have been transmitted electronically. Requested Prescriptions Signed Prescriptions Disp Refills oseltamivir (TAMIFLU) 75 mg capsule 10 capsule 0 Sig: Take 1 capsule by mouth two times a day for 5 days. Jennifer Sierra APRN.CNP [facility]02-13-2025 NyfhKWVT-VBY-4 (AGENT OF COVID-19) RNA: Not detected INFLUENZA A RNA: Detected INFLUENZA B RNA: Not detected RESPIRATORY SYNCYTIAL VIRUS (RSV) RNA: Not detectedAdena Regional Medical CenterComment on above:Performed By: #### [id number]- [id number] ####[facility] LABCLIA [id number] [address] [place] OF [id number] History of Present illness Narrative* Moraima Solano [...] Chronic kidney disease (CKD), stage III (moderate) ([facility]) COPD (chronic obstructive pulmonary disease) ([facility]) Dr. Wallace Depression Dysuria Generalized anxiety disorder [...] agreeable to treatment plan. Moraima Pope APRN.CNP [address] [place] [address] documented in this encounterWright-Patterson Medical Center02-13-2025 NoteHNO ID: [id number] Author: MORAIMA SOLANO APRN.CNP Service: ? Author [...] Chronic kidney disease (CKD), stage III (moderate) ([facility]) COPD (chronic obstructive pulmonary disease) ([facility]) Dr. Wallace Depression Dysuria Generalized anxiety disorder [...] Left leg, managed by plastic surgery Stroke ([facility]) x 4 Suprapubic pain Vitamin D deficiency [...] by mouth once daily (more content not included)...[facility]02-04-2025 History of Present illness Narrative* Yamile Cordero, PT - 07/02/2024 2:36 PM EST Program_ID:[id number] Access Code: [email or web address] URL: [email or web address] Date: 07-02-2024 Prepared By: Robin Gaffney Program [...] updated on 06/05/2024 Goals updated on 07/02/2024. Swisher in home exercise program. -- MET Patient [...] 1438 Yamile Cordero PT documented in this encounterWright-Patterson Medical Center02-04-2025 NoteHNO ID: [id number] Author: YAMILE CORDERO PT Service: ? Author [...] updated on 06/05/2024 Goals updated on 07/02/2024. Swisher in home exercise program. -- MET Patient [...] Session Stop Time : 1438 Yamile Cordero [facility]01-28-2025 History of Present illness Narrative* Yamile Cordero, PT - 2024 3:17 PM EST Program_ID:[id number] Access Code: [email or web address] URL: [email or web address] Date: 2024 Prepared By: Robin Gaffney Program [...] 1530 Yamile Cordero PT documented in this encounterWright-Patterson Medical Center01-28-2025 NoteHNO ID: [id number] Author: YAMILE CORDERO, PT Service: ? Author [...] Session Stop Time : 1530 Yamile Cordero, [facility]01-21-2025 History of Present illness Narrative* Yamile Cordero, PT - 06/18/2024 3:15 PM EST Program_ID:[id number] Access Code: [email or web address] URL: [email or web address] Date: 06-18-2024 Prepared By: Robin Gaffney Program [...] 1507 Yamile Cordero PT documented in this encounterWright-Patterson Medical Center01-21-2025 NoteHNO ID: [id number] Author: YAMILE CORDERO, PT Service: ? Author [...] Session Stop Time : 1507 Yamile Cordero [facility]01-14-2025 NoteHNO ID: [id number] Author: YAMILE CORDERO, PT Service: ? Author [...] Session Stop Time : 1516 Yamile Cordero, [facility]01-14-2025 History of Present illness Narrative* Yamile Cordero, [...] 1516 Yamile Cordero PT documented in [place] encounterChristian [place] [address]-09-2025 Telephone encounter Note * Telephone Encounter - [...] LPN June 06, 2024 3:04 PM = [facility]01-09-2025 Miscellaneous Notes* Telephone Encounter - Gerda Ziegler [...] 2024 3:04 PM = documented in this encounterWright-Patterson Medical Center01-08-2025 History of Present illness Narrative* Yamile Cordero, PT - 06/05/2024 3:13 PM EST Program_ID:[id number] Access Code: [email or web address] URL: [email or web address] Date: 06-05-2024 Prepared By: Robin Gaffney Program [...] Care: established 05/16/24 Goals updated on 06/05/2024. Swisher in home exercise program. -- PROGRESSING Patient [...] Patient to be seen for Therapeutic exercise (20592), Neuromuscular re-education (35261), Manual therapy (48876), Therapeutic activities (06574), Self-skilled nursing management (38966), Gait Training (79019), Patient/Family/Caregiver Education PLAN FOR NEXT VISIT: continue quadriceps strengthening SUBJECTIVE: Transfer from [place]. Pt. presents with SC. Pt. fell 4x [...] 153 Yamile Cordero PT documented in this encounterWright-Patterson Medical Center01-08-2025 NoteHNO ID: [id number] Author: YAMILE CORDERO PT Service: ? Author [...] Care: established 05/16/24 Goals updated on 06/05/2024. Swisher in home exercise program. -- PROGRESSING Patient [...] Patient to be seen for Therapeutic exercise (34430), Neuromuscular re-education (63360), Manual therapy (05200), Therapeutic activities (45265), Self-skilled nursing management (51975), Gait Training (80784), Patient/Family/Caregiver Education PLAN FOR NEXT VISIT: continue quadriceps strengthening SUBJECTIVE: Transfer from [place]. Pt. presents with SC. Pt. fell 4x [...] Session Stop Time : 1537 Yamile Cordero [facility]12-23-2024 NoteHNO ID: [id number] Author: TATIANA RONQUILLO MD Service: ? Author [...] lie down for 30m (more content not included)...[facility]12-23-2024 History of Present illness Narrative* Tatiana Ronquillo [...] Lymph 1.00 - 4.00 k/uL 0.99 (L) Camas% % 9.0 Abs Camas <0.87 k/uL 0.60 Eosin% % 1.2 Abs [...] diet Tatiana Ronquillo MD documented in this encounterWright-Patterson Medical Center12-19-2024 History of Present illness Narrative* Robin Gaffney PT DPT - 05/16/2024 3:21 PM EST Program_ID:[id number] Access Code: [email or web address] URL: [email or web address] Date: 05-16-2024 Prepared By: Robin Gaffney Program [...] of impairments . Patient transfer care to [place] for the following reasons: Closer to home as does not appear to have neuro needs. The patient will benefit from skilled therapy services to meet the goals established for this plan of care as noted below. Goals for Episode of Care: established 05/16/24 Swisher in home exercise program. Patient will decrease [...] Planned: 8 Planned Treatment Interventions: Therapeutic exercise (90107), Neuromuscular re- education (67315), Manual therapy (15066), Therapeutic activities (97668), Self- skilled nursing management (37451), Gait Training (84169), Patient/Family/Caregiver Education PLAN FOR NEXT VISIT: Transfer of care [place]. R LE strengthening and flexibility Patient demonstrates good understanding of plan of care and treatment. The above goals and plan of care were discussed and agreed upon by patient/family. Transfer of Care Due To: Closer to Home Patient transferring care to: [place] SUBJECTIVE: Pt with R leg gives out. [...] Robin Gaffney PT, DPT documented in this encounterWright-Patterson Medical Center12-19-2024 NoteHNO ID: [id number] Author: ROBIN GAFFNEY PT, DPT Service: ? [...] of impairments . Patient transfer care to [place] for the following reasons: Closer to home as does not appear to have neuro needs. The patient will benefit from skilled therapy services to meet the goals established for this plan of care as noted below. Goals for Episode of Care: established 05/16/24 Swisher in home exercise program. Patient will decrease [...] Planned: 8 Planned Treatment Interventions: Therapeutic exercise (02502), Neuromuscular re-education (93726), Manual therapy (27984), Therapeutic activities (06389), Self-skilled nursing management (73856), Gait Training (99923), Patient/Family/Caregiver Education PLAN FOR NEXT VISIT: Transfer of care [place]. R LE strengthening and flexibility Patient demonstrates good understanding of plan of care and treatment. The above goals and plan of care were discussed and agreed upon by patient/family. Transfer of Care Due To: Closer to Home Patient transferring care to: [place] SUBJECTIVE: Pt with R leg gives out. [...] LE Light Touch Sens (more content not included)...[facility] HospitalKqpmiyef52-[facility]-2658 Note HNO ID: [id number] Author: OG RAYGOZA MA Service: ? Author Type: Sports Journalist Type: Progress Notes Filed: 05/08/2024 15:35 Note [...] Og Raygoza MA May 08, 2024 12:19 [facility]12-11-2024 History of Present illness Narrative* Og [...] 08, 2024 12:19 PM documented in this encounterWright-Patterson Medical Center12-11-2024 NotePatient Outreach (NETNAV) TEMITOPE HADDAD ([id number]) 1955 F T Date Time Provider Department 05/08/24 OG RAYGOZA NETNAV During your visit today, we recorded the following information about you: Og Raygoza MA 05/08/2024 3:35 PM Signed POPULATION [...] Visit: Population Health Navigation Outreach [3910] [facility]E PCSA Prescriptions as of 05/08/2024 - levothyroxine [...] [F33.*10/25/2023 Encounter Status:Closed by OG RAYGOZA on 05/08/24[facility]12[facility] Telephone encounter Note* Telephone Encounter - Kavitha Kim LPN - 05/02/2024 9:34 AM EST Phoned patient left detailed message with results, notes from Dr Ronquillo on voicemail. [facility]12-05-2024 Miscellaneous Notes* Telephone Encounter - Kavitha Kim [...] Continue treatment as discussed. documented in this encounterWright-Patterson Medical Center12-05-2024 Telephone encounter Note * Telephone Encounter - Kavitha Kim LPN - 05/02/2024 9:32 AM EST ----- Message from Tatiana Ronquillo MD sent at 05/02/2024 8:47 AM EST ----- Xray of the right knee is negative for fracture or dislocation. No signs of arthritis. Continue treatment as discussed. [facility]12-04-2024 Telephone encounter Note* Telephone Encounter - Yumiko Sarkar RN - 05/01/2024 9:55 AM EST Pt called and is notified of providers results and instructions. Pt voices understanding. Yumiko Sarkar RN [facility]12-04-2024 Miscellaneous Notes* Telephone Encounter - Yumiko Sarkar RN - 05/01/2024 9:55 AM EST Pt called and is notified of providers results and instructions. Pt voices understanding. Yumiko Srakar RN * Telephone Encounter - Tatiana Ronquillo [...] in regimen for this. documented in this encounterW[facility]12-[facility] Telephone encounter Note * Telephone Encounter - Tatiana Ronquillo MD - 05/01/2024 9:44 AM EST New rx sent. Recheck TSH in 2 months as ordered. [facility]12[facility] Telephone encounter Note* Telephone Encounter - Gerda Ziegler LPN - 05/01/2024 9:38 AM EST Spoke with pt and information listed below given. Pt verbalizes understanding. Pt reports she is taking her thyroid medication daily. Please advise pt when new medication has been sent. Gerda Ziegler LPN [facility]12-04-2024 Telephone encounter Note* Telephone Encounter - Gerda [...] ago. No change in regimen for this. [facility]12[facility] History of Present illness Narrative* Faby Rivas, [...] PATIENT PRESENTS WITH AN IMPLANTABLE OR ATTACHED AUTOMATIC OPERATOR: No RADIOLOGY DEPARTMENT: General X-ray: Exam(s) Completed: Lower Extremity X- Ray(s): Knee, AP / Lat / Tunne / Merchant Right and Wt. Bearing PERIPHERAL IV DATA: Not applicable SIGNED BY: RT Sindi(Rashida) April 29, 2024 1:06 PM documented in this encounterWright-Patterson Medical Center12-02-2024 NoteHNO ID: [id number] Author: FABY RIVAS RT(R) Service: Radiology Author [...] PATIENT PRESENTS WITH AN IMPLANTABLE OR ATTACHED AUTOMATIC OPERATOR: No RADIOLOGY DEPARTMENT: General X-ray: Exam(s) Completed: Lower Extremity X-Ray(s): Knee, AP / Lat / Tunne / Merchant Right and Wt. Bearing PERIPHERAL IV DATA: Not applicable SIGNED BY: RT Sindi(Rashida) April 29, 2024 1:06 [facility]12-02-2024 NoteHNO ID: [id number] Author: TATIANA RONQUILLO MD Service: ? Author [...] Chronic kidney disease (CKD), stage III (moderate) ([facility]) COPD (chronic obstructive pulmonary disease) ([facility]) Dr. Wallace Depression Dysuria Generalized anxiety disorder [...] Left leg, managed by plastic surgery Stroke ([facility]) x 4 Suprapubic pain Vitamin D deficiency [...] mg chewable ta (more content not included)... [facility]12-02-2024 History of Present illness Narrative* Tatiana Ronquillo [...] Chronic kidney disease (CKD), stage III (moderate) ([facility]) COPD (chronic obstructive pulmonary disease) ([facility]) Dr. Wallace Depression Dysuria Generalized anxiety disorder [...] Lymph 1.00 - 4.00 k/uL 0.99 (L) Camas% % 9.0 Abs Camas <0.87 k/uL 0.60 Eosin% % 1.2 Abs [...] HORMONE Tatiana Ronquillo MD documented in this encounterWright-Patterson [facility] Center11-24-2024 Telephone encounter Note * Telephone Encounter - Paulo Sifuentes - 04/21/2024 10:31 AM EST Patient completed US on 04/19/2024 [facility]11-[facility] Miscellaneous Notes* Telephone Encounter - Paulo Sifuentes [...] US of the area. documented in this encounterWright-Patterson Medical Center11-22-2024 Telephone encounter Note * Telephone Encounter - Shavonne Donato APRN.CNP - 04/19/2024 2:11 PM EST Order placed for US RLQ. Shavonne Donato APRN.CNP [facility]11-22-2024 Miscellaneous Notes* Telephone Encounter - Shavonne Donato APRN.CNP - 04/19/2024 2:11 PM EST Order placed for US RLQ. Shavonne Donato APRN.CNP * Telephone Encounter - Theresa Sawant RDMS - 04/19/2024 1:38 PM EST May we please have ultrasound orders placed for mass RLQ. US Soft tissue Abdomen ([id number]) Pt. Is currently waiting in radiology. Thank you so much! Theresa documented in this encounterWright-Patterson Medical Center11-22-2024 History of Present illness Narrative* Theresa Sawant [...] PATIENT PRESENTS WITH AN IMPLANTABLE OR ATTACHED AUTOMATIC OPERATOR: No RADIOLOGY DEPARTMENT: Ultrasound PERIPHERAL IV DATA: Not applicable SIGNED BY: Theresa aSwant RDMS April 19, 2024 2:39 PM documented in this encounterWright-Patterson Medical Center11-22-2024 NoteHNO ID: [id number] Author: THERESA SAWANT RDMS Service: ? Author Type: Rod Machine Operator Type: Progress Notes Filed: 04/19/2024 14:39 Note [...] PATIENT PRESENTS WITH AN IMPLANTABLE OR ATTACHED AUTOMATIC OPERATOR: No RADIOLOGY DEPARTMENT: Ultrasound PERIPHERAL IV DATA: Not applicable SIGNED BY: Theresa Sawant RDMS April 19, 2024 2:39 [facility] Telephone encounter Note* Telephone Encounter - Theresa Sawant RDMS - 04/19/2024 1:38 PM EST May we please have ultrasound orders placed for mass RLQ. US Soft tissue Abdomen ([id number]) Pt. Is currently waiting in radiology. Thank you so much! Theresa [facility]11-22-2024 Telephone encounter Note* Telephone Encounter - Laura Ann - 04/19/2024 9:11 AM EST 1st attempt LVM to schedule US [facility]11-21-2024 Telephone encounter Note* Telephone Encounter - Savita Vidales MA - 04/18/2024 3:03 PM EST Patient informed and verbalized understanding. Sending to schedulers to assist in scheduling US that was ordered. Savita Vidales MA [facility]11-21-2024 Telephone encounter Note* Telephone Encounter - Sabine Crowley APRN.CNP - 04/18/2024 2:46 PM EST Please let patient know their CT is negative for acute findings. I have ordered a US of the area. [facility]11-21-2024 History of Present illness Narrative* Isaak Crowder, [...] PATIENT PRESENTS WITH AN IMPLANTABLE OR ATTACHED AUTOMATIC OPERATOR: No ALLERGIES: Reviewed and unchanged CONTRAST [...] 2024 TIME: 1:23 PM documented in this encounterWright-Patterson Medical Center11-21-2024 NoteHNO ID: [id number] Author: ISAAK CROWDER CT Service: Radiology Author [...] PATIENT PRESENTS WITH AN IMPLANTABLE OR ATTACHED AUTOMATIC OPERATOR: No ALLERGIES: Reviewed and unchanged CONTRAST [...] Haddad DATE: April 18, 2024 TIME: 1:23 [facility]11-21-2024 NoteHNO ID: [id number] Author: SABINE CROWLEY APRN.[employer] Service: ? Author Type: Nurse Practitioner Type: [...] HFA (PROVENTIL HFA, MOJGAN (more content not included)...[facility]11-21-2024 History of Present illness Narrative* Sabine Crowley APRN.[facility] - 04/18/2024 11:53 AM EST Chief [...] (moderate) (HCC) COPD (chronic obstructive pulmonary disease) ([facility]) Dr. Wallace Depression Dysuria Generalized anxiety disorder [...] Left leg, managed by plastic surgery Stroke ([facility]) x 4 Suprapubic pain Vitamin D deficiency [...] be scheduled today, verbalized understanding. Sabine Crowley APRN.[employer] documented in this encounterWright-Patterson Medical Center11-20-2024 Telephone encounter Note * Telephone Encounter - [...] triad today or tomorrow. Scheduled appt with Conditioner Tender for tomorrow. [facility]11-20-2024 Miscellaneous Notes* Telephone Encounter - Sumaya Grubbs [...] triad today or tomorrow. Scheduled appt with Conditioner Tender for tomorrow. documented in this encounterWright-Patterson [facility] Center11-15-2024 Telephone encounter Note * Telephone Encounter - [...] 1 tablet by mouth daily at bedtime. Yamsin Jackson RN April 12, 2024 3:00 PM [facility]11-15-2024 Miscellaneous Notes* Telephone Encounter - Yasmin Jackson [...] 12, 2024 3:00 PM documented in this encounterWright-Patterson [facility] Center11-08-2024 Telephone encounter Note * Telephone Encounter - [...] Jackson RN April 05, 2024 2:51 PM [facility]11-08-2024 Miscellaneous Notes* Telephone Encounter - Yasmin Jackson [...] 05, 2024 2:51 PM documented in this encounterWright-Patterson [facility] Center09-26-2024 Telephone encounter Note * Telephone Encounter - Fadumo Alvarado RN - 02/22/2024 11:32 AM EDT Patient notified of results and provider's instructions. Patient verbalizes understanding. Fadumo Alvarado RN [facility]09-26-2024 Miscellaneous Notes* Telephone Encounter - Fadumo Alvarado [...] levels in 2-3 weeks. documented in this encounterWright-Patterson Medical Center09-26-2024 Telephone encounter Note * Telephone Encounter - Gerda Zieglre LPN - 02/22/2024 9:24 AM EDT Left a message for pt to call the office and ask to speak to a nurse. Gerda Ziegler LPN [facility]09-26-2024 Telephone encounter Note* Telephone Encounter - Tatiana [...] and alcohol. Recheck levels in 2-3 weeks. [facility]09-25-[facility] Telephone encounter Note* Telephone Encounter - Ashlee Elliott LPN - 02/21/2024 12:17 PM EDT Patient notified and verbalized understanding. Ashlee Elliott LPN [facility]09-25-2024 Miscellaneous Notes* Telephone Encounter - Ashlee Elliott [...] or confusion. Molnupiravir Eligibility and Patient Discussion [facility] Formulary Restriction Criteria: Adult outpatients 18 years [...] Per Pt request sent information to her [facility]. Pt would like provider to send medication in to [facility] in [facility]. Yumiko Sarkar RN * Telephone Encounter - [...] Please let me know. documented in this encounterWright-Patterson Medical Center09-25-2024 Telephone encounter Note * Telephone Encounter - Tatiana Ronquillo MD - 02/21/2024 11:47 AM EDT Rx sent for Lagevrio. Take as directed. Call with side effects. F/u in 1 week if symptoms not improving. Go to ER with high fever, sudden chest pain or SOB, dehydration or confusion. Molnupiravir Eligibility and Patient Discussion [facility] Formulary Restriction Criteria: Adult outpatients 18 years [...] Ronquillo MD February 21, 2024 11:49 AM [facility]09-25-2024 Instructions* Patient Instructions* Tatiana Ronquillo MD - [...] of LAGEVRIO during to this registry at [email or web address] or . For individuals who are sexually [...] virus. COVID-19 illnesses have ranged from very kelg-ax-wpvayr, including illness resulting in . While information [...] serious illnesses Take any medicines including prescription, jiov-cru-zqookci medicines, vitamins, and herbal products. How do [...] NG or OG that is size 12 Cuban (FR) or larger. If you miss a [...] to treat people with COVID-19. Go to https://www.fda.gov/jkrhevdrb-zsipyszoyrud-flu-response/fcv-fspigzragmtqega-qif- policy-framework/bdpfyevdn-oyo-cdunilmtxlkeu for more information. It is your choice [...] to FDA MedWatch at www.fda.gov/medwatch or call 4-608-EOA-2836 (1100.154.1666). How should I store LAGEVRIO? Store LAGEVRIO capsules at room temperature between 68 F to 77 F (20 C to 25 C). Keep LAGEVRIO and all medicines out of the reach of children. How can I learn more about COVID-19? Ask your healthcare provider. Visit www.cdc.gov/COVID19 Contact your local or state public health department. Call [employer] at (toll free in the [place] Visit www.AccuVein What Is an Emergency Use Authorization (EUA)? The [place] FDA has made LAGEVRIO available under an emergency access mechanism called an Emergency Use Authorization (EUA) The EUA is supported by a [place] of Health and Human Service ([facility])declaration that circumstances exist to justify emergency use of drugs and biological products during the COVID-19 pandemic. LAGEVRIO for the treatment of adults with a current diagnosis of wgyj-hw-ukpiivul COVID-19 who are at high risk for [...] be used under the EUA). Parth. for: [employer] [place] [address], [facility] For patent information: www.L[employer].Ash Access Technology/research/patent Copyright [employer] [place], [place], [place] and its affiliates. All rights reserved. [id number] Revised: June 2022 documented in this encounterWright-Patterson Medical Center09-25-2024 Telephone encounter Note * Telephone Encounter - Yumiko Sarkar RN - 02/21/2024 11:45 AM EDT Pt called and is notified of providers results and instructions. Pt voices understanding. Per Pt request sent information to her [facility]. Pt would like provider [facility] Yumiko Sarkar RN [facility]09-25-[facility]24 Telephone encounter Note* Telephone Encounter - Tatiana [...] in to pharmacy. Please let me know. [facility]09-[facility] History of Present illness Narrative* Tatiana Ronquillo MD - 02/20/2024 10:40 AM EDT Chief Complaint No chief complaint on file. HPI Temitope Haddad is a 68 year old female who presents here today for ER Follow Up.. Patient evaluated at [facility] ED on 02/10 for complaint of rectal [...] Chronic kidney disease (CKD), stage III (moderate) ([facility]) COPD (chronic obstructive pulmonary disease) ([facility]) Dr. Wallace Depression Dysuria Generalized anxiety disorder [...] ROUTINE Tatiana Ronquillo MD documented in this encounterWright-Patterson [facility] Center08-30-2024 Telephone encounter Note * Telephone Encounter - [...] down. Pt voices understanding. Yumiko Sarkar RN [facility]08-30-2024 Miscellaneous Notes* Telephone Encounter - Yumiko Sarkar [...] on recent US right leg done at [facility]. Did advise patient results show negative for DVT. documented in this encounterWright-Patterson Medical Center08-30-2024 Telephone encounter Note * Telephone Encounter - Shavonne Donato APRN.CNP - 01/26/2024 1:[address] Ronquillo is out but yes it is negative. If her symptoms are not improving she will need office appointment. Shavonne Donato APRN.CNP [facility]08-30-2024 Telephone encounter Note* Telephone Encounter - Sumaya Grubbs RN - 01/26/2024 1:40 PM EDT Patient asking pcp to review and advise on recent US right leg done at [facility]. Did advise patient results show negative for DVT. [facility]08-28[facility] History of Present illness Narrative* Og Raygoza [...] or unnecessary to reach patient: Left message [employer] Networkshart message sent Navigation Signature: Og Raygoza MA January 24, 2024 9:20 AM documented in this encounterWright-Patterson Medical Center08-27-2024 History of Present illness Narrative* Sharron Chand [...] PATIENT PRESENTS WITH AN IMPLANTABLE OR ATTACHED AUTOMATIC OPERATOR: No RADIOLOGY DEPARTMENT: Ultrasound PERIPHERAL IV DATA: Not applicable SIGNED BY: Sharron Chand RDMS, RVT January 23, 2024 5:23 PM documented in this encounterWright-Patterson Medical Center08-27-2024 NoteHNO ID: [id number] Author: SHARRON CHAND RT(Rashida) Service: ? Author [...] PATIENT PRESENTS WITH AN IMPLANTABLE OR ATTACHED AUTOMATIC OPERATOR: No RADIOLOGY DEPARTMENT: Ultrasound PERIPHERAL IV DATA: Not applicable SIGNED BY: Sharron Chand RDMS, RVT January 23, 2024 5:23 [facility]08-26-2024 History of Present illness Narrative* Lena Aguilar [...] will take her now. documented in this encounterWright-Patterson Medical Center08-21-2024 Telephone encounter Note * Telephone Encounter - [...] Carol Mena January 17, 2024 12:46 PM [facility]08-21-2024 Miscellaneous Notes* Telephone Encounter - Carol Gunter - 01/17/2024 [...] 17, 2024 12:46 PM documented in this encounterWright-Patterson Medical Center08-21-2024 Telephone encounter Note * Telephone Encounter - Sumaya Grubbs RN - 01/17/2024 11:20 AM EDT Left detailed vm on identified vm with provider's message below. [facility]08-21-2024 Miscellaneous Notes* Telephone Encounter - Sumaya Grubbs RN - 01/17/2024 11:20 AM EDT Left detailed vm on identified vm with provider's message below. * Telephone Encounter - Tatiana Ronquillo MD - 01/16/2024 1:34 PM EDT Insurance requesting 40 mg lipitor instead of two 20 mg pills. Rx sent. documented in this encounterWright-Patterson Medical Center08-20-2024 Telephone encounter Note * Telephone Encounter - Tatiana Ronquillo MD - 01/16/2024 1:34 PM EDT Insurance requesting 40 mg lipitor instead of two 20 mg pills. Rx sent. [facility]08-[facility] Telephone encounter Note* Telephone Encounter - Karolina [...] Karolina Mena January 11, 2024 2:19 PM [facility]08-[facility]24 Miscellaneous Notes* Telephone Encounter - Karolina Mojica [...] mouth daily at bedtime. For cholesterol. Karolina Karlie Mena January 11, 2024 2:19 PM documented in this encounterWright-Patterson Medical Center08-12-2024 Telephone encounter Note * Telephone Encounter - Evelyne Ingram LPN - 01/08/2024 1:43 PM EDT Pt calling requesting a refill of her Fosamax. Advised pt this was sent to pharm 11/24/23 Qty: 12 with 3 refills and this is enough refill for 1 year. Pt verbalizes understanding and will check with [facility] and contact office if any problems in refilling. Evelyne Ingarm LPN [facility]08-12-2024 Miscellaneous Notes* Telephone Encounter - Evelyne Ingram [...] refilling. Evelyne Ingram LPN documented in this encounterWright-Patterson Medical Center06-27-2024 Telephone encounter Note * Telephone Encounter - [...] 04/29/2024 Please advise. Thank you. Desirae Donis. [facility]06-27-2024 Miscellaneous Notes* Telephone Encounter - Desirae Donis [...] primary care: 04/29/2024 Please advise. Thank you. Desriae Donis. documented in this encounterWright-Patterson Medical Center05-30-2024 Telephone encounter Note * Telephone Encounter - Talita Preston LPN - 10/26/2023 10:56 AM EDT reviewed results and recommendations with patient. Patient voiced understanding. Talita Preston LPN [facility]05-30-2024 Miscellaneous Notes* Telephone Encounter - Talita Preston LPN - 10/26/2023 10:56 AM EDT reviewed results and recommendations with patient. Patient voiced understanding. Talita Preston LPN * Telephone Encounter - Talita Preston LPN - 10/26/2023 10:55 AM EDT ----- Message from Tatiana Rnoquillo MD sent at 10/26/2023 9:34 AM EDT ----- A1c remains borderline prediabetic range at 5.7. work on low carb diet and regular exercise. Recheck in 6 months. CKD stable. Recommend low sodium diet <2,000 mg per day, avoidance of NSAIDs, and increased water intake. Other labs normal. documented in this encounterWright-Patterson Medical Center05-30-2024 Telephone encounter Note * Telephone Encounter - [...] and increased water intake. Other labs normal. [facility]05-29[facility] History of Present illness Narrative* Tatiana Ronquillo [...] Chronic kidney disease (CKD), stage III (moderate) ([facility]) COPD (chronic obstructive pulmonary disease) ([facility]) Dr. Love Depression Dysuria Generalized anxiety disorder [...] Left leg, managed by plastic surgery Stroke ([facility]) x 4 Suprapubic pain Vitamin D deficiency [...] Abs Lymph 1.00 - 4.00 k/uL 1.05 Camas% % 9.3 Abs Camas <0.87 k/uL 0.43 Eosin% % 8.0 Abs [...] PANEL Tatiana Ronquillo MD documented in this encounterWright-Patterson Medical Center05-21-2024 Telephone encounter Note * Telephone Encounter - [...] ORAL Please advise. Thank you. Lili Mena. [facility]05-21-2024 Miscellaneous Notes* Telephone Encounter - Lili Barillas [...] you. Lili Peña Pss. documented in this encounterWright-Patterson Medical Center05-14-2024 History of Present illness Narrative* Kashmir Judge [...] Testing Right Constanza-Hallpike: Asymptomatic, No nystagmus Left Esmont-Hallpike: Asymptomatic, No nystagmus TREATMENT: Canalith Repositionin: Esmont-Hallpike repeated B and results were explained to [...] 1033 Kashmir Judge PT documented in this encounterWright-Patterson Medical Center05-07-2024 History of Present illness Narrative* Kashmir Judge [...] 6 Planned Treatment Interventions: Canalith Repositioning Maneuvers (50827), Therapeutic exercise (13496), Neuromuscular re-education (15228), Manual therapy (00313), Self-skilled nursing management (77240),Therapeutic activities (82415), Patient/Family/Caregiver Education, Body Mechanics Training PLAN FOR [...] WITH LEVEL OF FUNCTION: Positional Testing Right Esmont-Hallpike: Symptomatic, Less than 60 seconds (nystagmus) Left Esmont-Hallpike: Symptomatic, No nystagmus, Less than 60 seconds [...] 1357 Kashmir Judge PT documented in this encounterWright-Patterson Medical Center05-03-2024 Discharge summary Author Rl Britt [facility] September 29, 2023 5:59pm Note Date/Time September 29, 2023 5:59pm [facility] Medical Records Department [address] [place] [address] Emergency Department Summary 09/29/23 MR#: [id number] Acct: [id number] Name: TEMITOPE HADDAD Rep #:[id number] : 1955 68 From: Rl Britt MD [...] because of a history of a stroke. 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 Call [facility] ([phone]) or report to the closest Emergency Room. Call 911 if necessary. 09/29/23 1759 <Electronically signed by Rl Britt MD> Cosigner Signature (if applicable): CC: Dr. Bird Ronquillo MD ~ Signed [facility] Work Phone: [phone]) 754-127805-03-2024 Hospital Discharge instructions Additional Instructions May spread hydrocortisone on the affected area 2-3 times daily as needed, also may try hot compresses 3 times daily over the weekend to see if that helps as well.[facility] Work Phone: [phone]) 410-311004-18-2024 Miscellaneous Notes* Telephone Encounter - Talita Preston [...] and increased water intake. documented in this encounterWright-Patterson Medical Center04-15-2024 History of Present illness Narrative* Tatiana Ronquillo MD - 09/11/2023 4:21 PM EDT Chief Complaint Patient presents with: Dizziness: Continues/ with continuous ringing in right ear Refill Request: antivert HPI Temitope Haddad is a 68 year old female who presents here today for Above Complaints. Patient here today with complaint of vertigo which started over a month ago. Was evaluated in the [facility] ER on 08/13 for intermittent vertigo which [...] Chronic kidney disease (CKD), stage III (moderate) ([facility]) COPD (chronic obstructive pulmonary disease) ([facility]) Dr. Love Depression Dysuria Generalized anxiety disorder [...] Left leg, managed by plastic surgery Stroke ([facility]) x 4 Suprapubic pain Vitamin D deficiency [...] symmetric, Head Impulse Stim testing, Positive findings: Esmont Halpike to the right. Health Maintenance List [...] THERAPY Tatiana Ronquillo MD documented in this encounterWright-Patterson Medical Center04-13-2024 Miscellaneous Notes* Telephone Encounter - Tatiana Ronquillo MD - 09/09/2023 8:14 AM EDT Reviewed. * Telephone Encounter - Isidro Lipscomb MD - 09/06/2023 9:21 AM EDT FOLLOW UP ENDOSCOPY - RESULTS AND RECOMMENDATIONS NAME: Temitope Haddad CLINIC NO.: [id number] : 1955 DATE: September 06, 2023 PRIMARY [...] to the appropriate providers documented in this encounterWright-Patterson Medical Center04-12-2024 Miscellaneous Notes* Telephone Encounter - Yumiko Sarkar [...] prescribed either of these medications by the [facility]. If she is having new dizziness, needs OV for evaluation in 24 hours. Should go to the ER with persistent dizziness, severe headache, passing out, head injury, vision changes, slurred speech, or facial droop. * Telephone Encounter - Yumiko Sarkar RN - 09/07/2023 4:23 PM EDT Pt called with Michael a personal financial representative from [facility]. She said provider would need to send in a PA to get this medication covered for the Pt. Pt states she had received it from the hospital last time she was in because she was so dizzy. The [facility] provider line is [phone] incause the provider had any questions. She [...] you. Yumiko Sarkar RN. documented in this encounterWright-Patterson [facility] Center04-08-2024 History and physical note * Isidro Lipscomb [...] Chronic kidney disease (CKD), stage III (moderate) ([facility]) COPD (chronic obstructive pulmonary disease) ([facility]) Dr. Love Depression Dysuria Generalized anxiety disorder [...] Left leg, managed by plastic surgery Stroke ([facility]) x 4 Suprapubic pain Vitamin D deficiency [...] entered by the nurse and reviewed by wy Nursing Notes: Margaret Diego RN 08/18/2023 2:32 [...] (89 F), height 167.6 cm (5' 6"), qimkff20.5 kg (166 lb 6.4 oz), SpO2 97%. [...] entered by the nurse and reviewed by wy Nursing Notes: Margaret Diego RN 08/18/2023 2:32 [...] (89 F), height 167.6 cm (5' 6"), azdkex76.5 kg (166 lb 6.4 oz), SpO2 97%. [...] completed. Isidro Lipscomb MD documented in this encounterWright-Patterson Medical Center04-05-2024 Miscellaneous Notes* Telephone Encounter - Paulo Jackson - 09/01/2023 12:51 PM EDT Images from the original note were not included. Contacted patient for pre-op GI phone call via either phone and or [employer]. Patient understands prep instructions, sent either Mychart and/or Mail. Understands where to report on the day of procedure. All questions answered and or sent to providers office for clarification. Patient understands RedSeal Networkshart arrival time could change and wait for their arrival time call from the facility the day before procedure.Patient understands must have a courier driver and or responsible republican present. Patient was givendirect phone number to call ) if patient has any further questions or given the option to respond to Smule message If one was sent . Please see the prep instructions below. The first set of instructions (Mirlalax/Dulcolax Bowel Prep) are over the counter medications that may be picked up at any pharmacy. The second set of instructions (Golytely) is by prescription only ordered by the ordering physicians office If you have any questions please contact the surgical scrub technologist at [phone] or respond to this Smule message. . Thank you, Paulo Mirlalax/Dulcolax Bowel Prep For this bowel preparation you will need to greens picker the following medications at any pharmacy. Four (4) Dulcolax tablets (generic name Bisacodyl) 238 Gram (or 8.3 oz.) Bottle of Miralax (Generic name Polyethylene Glycol) A responsible family member or friend MUST be available to drive you home after your procedure. Youare NOT ALLOWED to drive, take a taxi, or leave the [facility] ALONE. If you do NOT have a responsible courier driver (family member or friend) to take you home, your exam cannot be done with sedation and WILL BE cancelled. Please remove all jewelry if possible. The [facility] or [facility] (depending on where your procedure is [...] more Dulcolax tablets. Any questions please call [phone] or [phone] and ask for the general surgery nurses. [...] If you do NOT have a responsible courier driver (family member or friend) to take you home, your exam cannot be done with sedation and WILL BE cancelled. Please remove all jewelry if possible. The [facility] or [facility] (depending on where your procedure is [...] till 6 hrs. prior to arrival for [facility]. documented in this encounterWright-Patterson Medical Center03-26-2024 Miscellaneous Notes* Telephone Encounter - Kavitha Kim LPN - 08/22/2023 1:03 PM EDT Patient returned call and said she is feeling better, taking the Meclizine rx. * Telephone Encounter - Talita Preston LPN - 08/15/2023 10:23 AM EDT Message left on secure VM for patient regarding scheduling ER follow up appointment in next 2-3 days with PCP. documented in this encounterWright-Patterson Medical Center03-25-2024 Telephone encounter Note * Telephone Encounter - Tran Smith - 08/21/2023 11:15 AM EDT Attempted to reach patient for sooner procedure date with Dr. Tolliver in [place] on 08/28/2023 or anotheralternative date. Left voicemail to call me directly at [phone] to discuss further Tran Smith Canteen Attendant [facility]03-25-2024 Miscellaneous Notes* Telephone Encounter - Tran Smith - 08/21/2023 11:15 AM EDT Attempted to reach patient for sooner procedure date with Dr. Tolliver in [place] on 08/28/2023 or anotheralternative date. Left voicemail to call me directly at [phone] to discuss further Tran Smith Canteen Attendant * Telephone Encounter - Tran Smith - 08/18/2023 3:52 PM EDT 01/08/2024 COLON/EGD DIAGNOSTIC PATIENT TO BE CALLED WITH SOONER DATE BY OFFICE Tran Smith Canteen Attendant documented in this encounterWright-Patterson Medical Center03-23-2024 History of Present illness Narrative* Isidro Lipscomb [...] Chronic kidney disease (CKD), stage III (moderate) ([facility]) COPD (chronic obstructive pulmonary disease) ([facility]) Dr. Love Depression Dysuria Generalized anxiety disorder [...] Left leg, managed by plastic surgery Stroke ([facility]) x 4 Suprapubic pain Vitamin D deficiency [...] (89 F), height 167.6 cm (5' 6"), epuppi49.5 kg (166 lb 6.4 oz), SpO2 97%. [...] completed. Isidro Lipscomb MD documented in this encounterWright-Patterson Medical Center03-22-2024 Telephone encounter Note * Telephone Encounter - Tran Smith - 08/18/2023 3:52 PM EDT 01/08/2024 COLON/EGD DIAGNOSTIC PATIENT TO BE CALLED WITH SOONER DATE BY OFFICE Tran Smith Canteen Attendant [facility]03-22-2024 Instructions* Patient Instructions* Isidro Lipscomb MD - [...] If you do not have a responsible courier driver (family member or friend) with you [...] until midnight. 2 04/2019 documented in this encounterWright-Patterson Medical Center03-22-2024 Nurse Note* Margaret Diego RN - 08/18/2023 [...] 2021 Margaret Diego RN documented in this encounterWright-Patterson Medical Center03-18-2024 Miscellaneous Notes* Telephone Encounter - Shawnee Masters RN - 08/14/2023 1:22 PM EDT Reason for Call: Intermittent dizziness, unable to stand, requires support to walk. Outcome: Patient advised to go to ED now. Patient verbalizes understanding, and states she will go to [place] ER. Reason for Disposition SEVERE dizziness (e.g., unable to stand, requires support to walk, feels like passing out now) Protocols used: Dizziness - Pleurecnrxsgjig-ZPKVO-FX documented in this encounterWright-Patterson Medical Center03-13-2024 Evaluation note* Diagnosis Stage 3a chronic kidney disease (HCC)- Primary documented in this encounter [facility]03-13-[facility]24 Reason for referral (narrative)* Diagnostic Procedure Only (Routine) - Closed Specialty Diagnoses / Procedures Referred By Contac t Referred To Contact US IMAGING Diagnoses Stage 3a chronic kidney disease (HCC) Procedures US KIDNEY/BLADDER US RETROPERITONEAL REAL TIME W/IMAGE COMPLETE Tatiana Ronquillo MD [address] [facility] [place] [address] [place] [address] Referral ID Status Reason Start Date Expiration Date V isits Requested Visits Authorized [id number] Closed Auto-Generate d Referral 07/28/2023 08/26/2024 1 1 [facility]03-06-2024 Miscellaneous Notes* Telephone Encounter - Dominga Whitley [...] function improves with treatment. documented in this encounterWright-Patterson Medical Center03-05-2024 Evaluation note* Diagnosis Stage 3a chronic kidney disease (HCC) documented in this encounter [facility]03-04-[facility] History of Present illness Narrative* Yamile Vivas [...] PATIENT PRESENTS WITH AN IMPLANTABLE OR ATTACHED AUTOMATIC OPERATOR: No RADIOLOGY DEPARTMENT: Ultrasound PERIPHERAL IV DATA: Not applicable SIGNED BY: Yamile Vivas RDMS T July 31, 2023 2:47 PM documented in this encounterWright-Patterson Medical Center03-01-2024 Miscellaneous Notes* Telephone Encounter - Vira Valerio [...] the kidneys further workup. documented in this encounterWright-Patterson Medical Center12-29-2023 NoteHNO ID: [id number] Author: Meaghan Trevino APRN.BOW MAKER [employer]ODUCTION Service: ? Author Type: Nurse Practitioner Type: Progress Notes Filed: 05/26/2023 4:20 PM Note Text: [facility] Today's Date: 05/26/2023 Name: Temitope Haddad [...] was advised that they will need a courier driver for after the procedure and that if no courier driver is available and on site at [...] Referrals: No additional considerations at present Functional Mormon: Physical Therapy (Land-based) Depending on response to [...] Tobacco comments: d/c 07/28/19 (more content not included)...[facility] 05-26-2023 NoteHNO ID: [id number] Author: Clover Alberts LPN Service: ? Author [...] Negative for suicidal ideas. The patient is nervous/anxious.[facility]12-15-2023 Miscellaneous Notes* Telephone Encounter - River Farias Ma - 05/12/2023 3:21 PM EST Called [facility] to verify that fosamax has active refills. Also verified that celexa comes from [facility]e [facility] through [facility]ana[facility]. Patient was notified to contact them for refill for celexa River Farias Ma * Telephone Encounter - Lili Barillas - 05/12/2023 2:35 PM EST Pharmacy verified in [facility] Patient has been identified by name [...] advise. Lili Peña Pss documented in this encounterWright-Patterson Medical Center10-25-2023 Miscellaneous Notes* Telephone Encounter - Kavitha Kim LPN - 03/22/2023 1:53 PM EDT Phoned patient and went over results, notes from Dr Ronquillo with understanding. * Telephone Encounter - Kavitha Kim LPN - 03/22/2023 1:52 PM EDT ----- Message from Tatiana Ronquillo MD sent at 03/22/2023 1:49 PM EDT ----- Negative/normal mammogram. Return to annual screening. documented in this encounterWright-Patterson Medical Center10-25-2023 History of Present illness Narrative* Mirlande Rodriguez [...] 22, 2023 1:00 PM documented in this encounterWright-Patterson Medical Center10-19-2023 Miscellaneous Notes* Telephone Encounter - Barrett Falk [...] to have screening CT scans done at [facility] in the future she will need to get re-enrolled in the Lung Cancer Screening Program. documented in this encounterWright-Patterson Medical Center10-19-2023 Miscellaneous Notes* Telephone Encounter - Tracy Aviles [...] Called and spoke with nurse Juliana at [facility] who confirmed that pt was given a prescription for Cipro and that it was sent electronically to [facility] with a receipt confirmed by pharmacy. Juliana states she will call it in to the pharmacy. * Telephone Encounter - Tracy Aviles RN - 03/16/2023 9:26 AM EDT Called and spoke with pt again regarding antibiotic prescription. Pt states she did not get a papercopy and that she told the [facility] provider to send the script to [facility]. * Telephone Encounter - Tracy Aviles RN - 03/16/2023 9:17 AM EDT Called and spoke with someone at [facility] pharmacy who confirms they were closed the last 4 days due to not having a pharmacist. She also checked records and there is no ciprofloxacin prescription in pt's history. * Telephone Encounter - Tracy Aviles RN - 03/16/2023 8:44 AM EDT Please hold off on approving refill requests. Called pt as she should have refills at [facility] pharmacy in [place]. Per pt, she states they have been closed for 4 days. Pt was also in [facility] ER on Monday the and prescribed an antibiotic for a "kidney infection". Pt has not been able to greens picker the prescription. Will follow up with [...] and advise. Josue Sweeney documented in this encounterWright-Patterson Medical Center10-18-2023 Miscellaneous Notes* Telephone Encounter - Enriqueta Grubbs MA - 03/15/2023 2:53 PM EDT Phone call to patient regarding below. Pt states that "there is a sign on the door at [facility] that they're closed and [facility] Patient just wanting to update office. Enriqueta Grubbs MA * Telephone Encounter - Shavonne Underwood - 03/15/2023 2:38 PM EDT Patient went to greens picker medications from the [facility] pharmacy and they have had their doors locked. Onewas a medication that she thinks was from [facility]-an antibiotic but does not know the name. The other may be Lipitor and albuterol. Please call to review situation. TY documented in this encounterWright-Patterson Medical Center10-17-2023 History of Present illness Narrative* Juliann Blanc, [...] 14, 2023 3:44 PM documented in this encounterWright-Patterson Medical Center10-16-2023 Discharge summary Author Eduardo Ely [facility] March 13, 2023 8:30pm Note Date/Time March 13, 2023 4 :43pm [facility] Medical Records Department [address] [place] [id number] Emergency Department Summary 03/13/23 MR#: [id number] Acct: [id number] Name: TEMITOPE CASTELLON Rep #:[id number] : 1955 67 From: Eduardo Ely DO [...] part of her back. Denies any trauma. [facility] Medical History Abdominal pain Abnormal Holter monitor finding Acute dysfunction of both eustachian tubes Acute seasonal allergic rhinitis Acute serous otitis media Ambulates with cane Anxiety Anxiety disorder Arthritis Atherosclerotic heart disease of [place] coronary artery without angina pectoris Bronchitis Bruising [...] % (Auto) 68.6 Lymph % (Auto) 24.2 [place] % (Auto) 5.1 Eos % (Auto) 1.1 [...] Clarity Clear Urine pH 6.0 Ur Specific [place] 1.015 Urine Protein 15 H Urine Glucose [...] your Primary Care Provider. Call [facility] ([phone]) or report to the closest Emergency Room. Call 911 if necessary. 03/13/232029 <Electronically signed by Eduardo Ely DO> Cosigner Signature (if applicable): CC: Dr. Bird Ronquillo MD ~ Signed [facility] Work Phone: 1(852) 512-637810-16-2023 Miscellaneous Notes* Letter - Coordinator, Mammography - 03/13/2023 4:14 PM EDT March 14, 2023 PID: [id number] Temitope Haddad [address] [address] Dear Ms. Haddad, Your prior imaging studies have arrived and been compared to your current study performed on 02/23/2023 which showed a possible finding that requires additional imaging studies for a complete evaluation. Most such findings are probably benign (not cancer). If you have a healthcare provider who ordered/prescribed your screening mammogram: Please call [phone] or [phone] to schedule an appointment for your additional [...] and reports are kept on file at [facility] as part of your permanent medical record, and are available for your continuing care. Thank you for allowing us to help in meeting your health care needs. Sincerely, Dr. Hoover Interpreting Radiologist [facility] (compared needs addl imaging) documented in this encounterWright-Patterson Medical Center10-11-2023 Miscellaneous Notes* Telephone Encounter - Yumiko Sarkar RN - 03/08/2023 1:26 PM EDT Pt called and is notified of providers message and instructions. Pt voices understanding. Yumiko Sarkar RN * Telephone Encounter - Ttaiana Ronquillo MD - 03/08/2023 1:17 PM EDT [...] advise. Talita Castellon LPN documented in this encounterWright-Patterson Medical Center10-06-2023 Miscellaneous Notes* Telephone Encounter - Laura Haji LPN - 03/03/2023 1:32 PM EDT Patient in this day requesting Atorvastatin 40mg be filled. Was filled at her last PCP and hasn't been filled here yet. Please fill at [facility]. Please review and advise. Laura Haji LPN documented in this encounterWright-Patterson Medical Center10-04-2023 Miscellaneous Notes* Telephone Encounter - Laura Haji LPN - 03/01/2023 4:30 PM EDT Patients in this day upset over medication being requested on 02/15/2023 not being refilled at correct pharmacy([place]). Upon looking it appears medication was sent to correct pharmacy [facility] as requested on 02/15/2023. [facility] called by this nurse. Spoke with laboratory technologist, they state refill was too soon yet. It had been sent to [facility] that same day but discontinued and then sent to [facility] [place]. technical sme reran order this day and it went through, will fill for pickup. Patients made aware and will greens picker medication. Made aware if ever has any further issues tocall the office and we would be happy to help. agreeable and left with no issues. Laura Haji LPN documented in this encounterWright-Patterson Medical Center10-04-2023 History of Present illness Narrative* Yamile Cordero, [...] Planned: 12 Planned Treatment Interventions: Therapeutic exercise (81932), Neuromuscular re- education (66447), Manual therapy (23134) PLAN FOR NEXT VISIT: Continue TA stabilization [...] Major limitation (B hips) Lumbar R Side [place]: Normal, Produces (R hip) Lumbar L Side [place]: Normal, Produces (R hip) Lumbar R Side-Bend: [...] Demonstration TREATMENT: PT Treatment Interventions: Therapeutic Exercise, Self-Intermediate Management, Gait Training Evaluation Therapeutic Exercise: 1: [...] facilitated with verbal, visual, and tactile cueing. Self-Intermediate Management: 1: *postural education- avoid perching Skilled [...] 1630 Yamile Cordero PT documented in this encounterWright-Patterson Medical Center09-30-2023 Miscellaneous Notes* Telephone Encounter - Rosaura Tristan [...] assist patient with scheduling. documented in this encounterWright-Patterson Medical Center09-28-2023 History of Present illness Narrative* Mary Felix [...] 23, 2023 1:12 PM documented in this encounterWright-Patterson Medical Center09-28-2023 History of Present illness Narrative* Bailee Thompson [...] 23, 2023 12:41 PM documented in this encounterWright-Patterson Medical Center09-20-2023 Miscellaneous Notes* Telephone Encounter - Tatiana Ronquillo MD - 02/15/2023 12:07 PM EDT Rx sent to [facility] as requested. * Telephone Encounter - River Farias Ma - 02/15/2023 12:02 PM EDT Please resend to [facility] pharmacy River Farias Ma * Telephone Encounter - Maia Sorenson - 02/15/2023 11:54 AM EDT Patient would like to know why Fosamax was sent to [place] [facility] instead of [facility]. Please advise and call patient. * Telephone Encounter - Tatiana Ronquillo MD - 02/14/2023 5:21 PM EDT Rx sent. * Telephone Encounter - Laura Haji LPN - 02/14/2023 4:55 PM EDT Patient notified. Please send rx to [facility] in [place]. Laura Haji LPN * Telephone Encounter - [...] Recheck DXA 2-4 years. documented in this encounterWright-Patterson Medical Center09-12-2023 Instructions* Patient Instructions* Barrett Falk PARKING LOT SPOTTER.BOW MAKER PRODUCTION - 02/07/2023 2:03 PM EDT Images from [...] small number of people the nodule may air turning machine feeder to be an early cancer. Your doctor [...] cancer? Fewer than 5% of all nodules air turning machine feeder to be cancer What if my nodule [...] months from initial scan. documented in this encounterWright-Patterson Medical Center09-12-2023 History of Present illness Narrative* Daniel Henriquez [...] 07, 2023 1:40 PM documented in this encounterWright-Patterson Medical Center09-12-2023 History of Present illness Narrative* Barrett Falk APRN.BOW MAKER PRODUCTION - 02/07/2023 1:05 PM EDT Images from [...] pre-disease performance w/o restriction. Modified Medical Research Resighini Dyspnea Scale (MMRC) I only get breathless with strenous exercise 0 PAST MEDICAL HISTORY Diagnosis Date Abdominal pain, right lower quadrant Benign neoplasm of colon COPD (chronic obstructive pulmonary disease) ([facility]) Dr. Love Dysuria Generalized anxiety disorder GERD (gastroesophageal reflux disease) History of tobacco use HTN (hypertension) Hyperlipemia Hypothyroidism Impaired fasting blood sugar Left leg pain Leiomyoma of uterus, unspecified very mild changes seen on sono Seasonal allergies Skin graft hematoma Left leg, managed by plastic surgery Stroke ([facility]) x 4 Suprapubic pain Vitamin D deficiency [...] Chest at [facility]. Prior Imaging: Last XR Chest - Impression Only XR CHEST 2V FRONTAL/LAT Exam End: 02/15/2019 11:56 PM (Final result) Impression: IMPRESSION: No acute radiographic abnormality. Stone Engraver: GASPER ... Pulmonary Function Testing: No textual [...] RUL lung nodule on 10/2022 scans from [facility]. It is documented as new per [...] Level: 4 - Moderate documented in this encounterWright-Patterson Medical Center09-06-2023 Miscellaneous Notes* Telephone Encounter - Enriqueta Grubbs [...] month. Other labs normal. documented in this encounterWright-Patterson Medical Center09-05-2023 Miscellaneous Notes* Telephone Encounter - Paulo Vazquez [...] pt. Gerda Ziegler LPN documented in this encounterWright-Patterson Medical Center08-11-2023 History of Present illness Narrative* Sharron Chand [...] 06, 2023 1:38 PM documented in this encounterWright-Patterson Medical Center08-04-2023 History of Present illness Narrative* Lili Bob [...] care. Lili Bob PA-C documented in this encounterWright-Patterson Medical Center07-28-2023 Miscellaneous Notes* Telephone Encounter - Kavitha Kim [...] place Pain Mgmt referral and have a Lathe Mechanic contact her to make appt. Please file pended order. Rosaura Tristan Ma * Telephone Encounter - Rosaura Tristan Ma - 12/23/2022 10:57 AM EDT ----- Message from Shavonne Donato APRN.BOW MAKER PRODUCTION sent at 12/23/2022 6:36 AM EDT ----- Normal xray of coccyx. Recommend referral to pain management since this has been going on for so long. Shavonne Donato APRN.BOW MAKER PRODUCTION documented in this encounterWright-Patterson Medical Center07-24-2023 History of Present illness Narrative* Magaly Benitez [...] 19, 2022 2:45 PM documented in this encounterWright-Patterson Medical Center07-06-2023 Discharge summary Author Naif Jackson [facility] December 01, 2022 4:16pm Note Date/Time December 01, 2022 4:04p [facility] Medical Records Department [address] [place] [address] Emergency Department Summary 12/01/22 MR#: [id number] Acct: [id number] Name: TEMITOPE CASTELLON Rep #:[id number] : 1955 67 From: Naif Jackson MD [...] symptoms for cauda equina. No saddle anesthesia. [facility] Medical History Abdominal pain Abnormal Holter monitor finding Acute dysfunction of both eustachian tubes Acute seasonal allergic rhinitis Acute serous otitis media Ambulates with cane Anxiety Anxiety disorder Arthritis Atherosclerotic heart disease of [place] coronary artery without angina pectoris Bronchitis Bruising [...] her primary care provider. She will take hfbx-bzv-zqoluom analgesics and will try zxqn-uqw-zecsezh nonsteroidalanti-inflammatories, but based on her previous visit, [...] your Primary Care Provider. Call [facility] ([phone]) or report to the closest Emergency Room. Call 911 if necessary. 12/01/22 1616 <Electronically signed by Naif Jackson MD> Cosigner Signature (if applicable): CC: Dr. Bird Ronquillo MD ~ Signed [facility] Work Phone: 1(429) 222-740606-19-2023 History of Present illness Narrative* Thelma Jaimes APRN.BOW MAKER PRODUCTION - 11/14/2022 1:21 PM EDT Plastic Surgery [...] issues Thelma Jaimes APRN.WILVER documented in this encounterWright-Patterson Medical Center06-12-2023 History of Present illness Narrative* KAMINI Lizama [...] ER evaluation. KAMINI Lizama documented in this encounterWright-Patterson Medical Center06-08-2023 Discharge summary Author Kunal Bray [facility] November 03, 2022 3:16am Note Date/Time November 03, 2022 12:53 am [facility] Medical Records Department [address] [place] [address] Emergency Department Summary 11/03/22 MR#: [id number] Acct: [id number] Name: TEMITOPE CASTELLON Rep #:[id number] : 1955 67 From: Kunal Bray DO [...] did not have improvement of her symptoms. [facility] Medical History Abdominal pain Abnormal Holter monitor finding Acute dysfunction of both eustachian tubes Acute seasonal allergic rhinitis Acute serous otitis media Ambulates with cane Anxiety Anxiety disorder Arthritis Atherosclerotic heart disease of [place] coronary artery without angina pectoris Bronchitis Bruising [...] PO Q6H PRN PRN abdominal discomfort #30 URLEMQGE46/26/23 [Rx Last Taken Unknown] ondansetron 4 mg [...] 78.1 H Lymph % (Auto) 16.6 L Camas % (Auto) 3.5 Eos % (Auto) 1.0 [...] (Auto) Neut % (Auto) Lymph % (Auto) [place] % (Auto) Eos % (Auto) Baso % [...] your Primary Care Provider. Call [facility] ([phone]) or report to the closest Emergency Room. Call 911 if necessary. 11/03/22315 <Electronically signed by Kunal Bray DO> Cosigner Signature (if applicable): CC: Dr. Bird Ronquillo MD ~ Signed [facility] Work Phone: 1(327) 504-805606-07-2023 Miscellaneous Notes* Telephone Encounter - Diamond Caro - 11/02/2022 11:14 AM EDT Done. Patient has been scheduled. Diamond * Telephone Encounter - Ilene Eddy - 11/01/2022 3:16 PM EDT Pt stopped in to schedule appt regarding L leg. Pt stated "it is doing it again and wants appt w/doctor. Pt has seen Dr. Cherry. Pt can be reached at [phone]. Thank you. documented in this encounterWright-Patterson [facility] Center04-05-2023 Discharge summary Author Jeff West [facility] August 31, 2022 3:47pm Note Date/Time August 26, 2022 11: 02am [facility] Physical Therapy [facility] [address] [place] [address] / REHABILITATION SERVICES DISCHARGE SUMMARY MR#: [id number] Acct: [id number] Name: TEMITOPE CASTELLON Rep #: [id number] : 1955 67 From: Cert. WHIT SyedT, OCS Referring Dr.: Dr. Giuseppe Mireles MD Status: REG R Insurance: [facility] It has been my pleasure to [...] please feel free to call me at [phone]. Thank you for the referral of thispatient. Sincerely, Jeff West PT, Cert T, OCS Balance/Gait/Functional tests - Balance/Special Test Scores Oswestry Neck Score: 1 <Electronically signed by Latrell Reyes PT. FABRICIO, OCS> 08/31/22 1549 CC: Dr. Giuseppe Mireles MD; [facility] ~ JLA Signed [facility] Work Phone: 1(869) 287-706002-21-[address] Jackson [facility] July 19, 2022 4:56pm Note Date/Time July 19, 2022 3:49pm [facility] Medical Records Department [address] [place] [address] Emergency Department Summary 07/19/22 MR#: [id number] Acct: [id number] Name: TEMITOPE CASTELLON Rep #:[id number] : 1955 67 From: Naif Jackson MD PCP: [facility] St atus:REG ER Location: ED HPI HPI - Fall History of Present Illness Chief Complaint: Fall Narrative Narrative: 67-year-old female past medical history of CAD, CVA, denies being on blood thinners however, presents with bilateral knee pain and bilateral hand pain status post fall. She states that approximately 3 hours ago she was walking in the parking lot of [employer], and stepped in a hole. She fell [...] consciousness. No neck pain, no other injury. [facility] Medical History Abdominal pain Abnormal Holter monitor finding Acute dysfunction of both eustachian tubes Acute seasonal allergic rhinitis Acute serous otitis media Ambulates with cane Anxiety Anxiety disorder Arthritis Atherosclerotic heart disease of [place] coronary artery without angina pectoris Bronchitis Bruising [...] this point in time, she will continue [id number] medications, and icing the affected areas. I [...] 16:36 EST Reading Location ID and State: [address] [place] [address] , Service support , Hand X-Ray 07/19/22 16:10 IMPRESSION: Normal x-ray examination of the hand. Electronically Signed: Jovanni Urias MD at 16:34 EST Reading Location ID and State: [facility] , Service support , Knee X-Ray 07/19/22 16:10 IMPRESSION: Normal x-ray examination of the knee. Electronically Signed: Jovanni Urias MD at 16:39 EST , Knee X-Ray 07/19/22 16:10 IMPRESSION: Normal x-ray examination of the knee. Electronically Signed: Jovanni Urias MD at 16:38 EST Reading Location ID and State: [facility] / [place] , Service support , Discharge Plan Triage [...] pain) Qty: 12 0RF [facility] [Primary Care Provider] - Activity Restrictions/Additional Instructions: Follow-up with orthopedics as needed. Take Tylenol and ice the affected areas. Disposition Disposition: Home, Self Care What to do if you have Problems For any increased pain, shortness of breath, bleeding, nausea or vomiting, chestpain, or any unexpected problems, contact your Primary Care Provider. Call [facility] ([phone]) or report to the closest Emergency Room. Call 911 if necessary. 07/19/22 1656 <Electronically signed by Naif Jackson MD> Cosigner Signature (if applicable): CC: [facility] ~ Signed [facility] Work Phone: 1(872) 305-101612-08-2022 History of Present illness Narrative* Thelma Jaimes [...] concerns Thelma Jaimes APRN.CNP documented in this encounterWright-Patterson Medical Center10-27-2022 History and physical note * Lashonda Magaña [...] Negative for: dysuria, hematuria and renal failure. TARIFF COUNSEL: Negative for abnormal vaginal bleeding, abnormal vaginal [...] or any previous visit (from the past 94332 hour(s)). Assessment No problem-specific Assessment & Plan [...] at this time: primary care/internal medicine (in [facility] 02/24/2022). Planned Anesthetic: general Implantable Devices: [...] Been Initiated: No orders per surgeon in [facility]. Assessment/Plan Diagnosis: Left leg pain [M79.605] [...] 11:36 AM PAGER/CONTACT #: documented in this encounterWright-Patterson Medical Center10-26-2022 Instructions* Patient Instructions* Lashonda Magaña APRN.CNP - 03/23/2022 11:33 AM EDT PATIENT PREOPERATIVE INSTRUCTIONS Dr. Victor has scheduled you for your procedure at this surgery center: [facility]: [phone], [address] [id number] Please read below carefully for your personalized [...] or the morning of surgery. Use the [employer] body wash supplied to you along with [...] surgery. - YOU MUST HAVE A RESPONSIBLE BRICK AND TILE MAKING MACHINE OPERATOR TAKE YOU HOME. A PLANT MAINTENANCE SUPERVISOR, CAB OR UBER BRICK AND TILE MAKING MACHINE OPERATOR CANNOT BE [place] RESPONSIBLE BRICK AND TILE MAKING MACHINE OPERATOR. - We recommend that a responsible person [...] in our PACU area unless a minor, cell geneticist or a special circumstance. Each patient isallowed [...] Lashonda Magaña APRN.CNP 03/23/22 documented in this encounterWright-Patterson Medical Center09-08-2022 History and physical note * Lashonda Magaña APRN.CNP - 02/03/2022 1:00 PM EDT HISTORY AND PHYSICAL EXAMINATION SERVICE DATE: 02/01/2022 SERVICE TIME: 1:09 PM PRIMARY CARE PHYSICIAN: Danae Cobb [facility] REASON FOR VISIT: Temitope Castellon is a [...] frequent urination, hematuria, renal failure and urgency. TARIFF COUNSEL: Negative for abnormal vaginal bleeding, abnormal vaginal [...] or any previous visit (from the past 16274 hour(s)). Assessment No problem-specific Assessment & Plan [...] 9:50 AM PAGER/CONTACT #: documented in this encounterWright-Patterson Medical Center09-06-2022 Instructions* Patient Instructions* KAMINI Canas - 02/01/2022 9:50 AM EDT PATIENT PREOPERATIVE INSTRUCTIONS Your surgeon has scheduled for your procedure at this surgery center: [facility]: [phone], [address] [id number] Please enter through the main entrance and proceed to the blue elevators. The surgery [place] [facility] is located to the left of [...] before scheduled surgery. Bring your Glucometer to [facility] if you are scheduled in [place] for [place]. If you have a stimulator, [...] or the morning of surgery. Use the Little [employer] B[employer]s body wash supplied to you along with [...] surgery. - YOU MUST HAVE A RESPONSIBLE BRICK AND TILE MAKING MACHINE OPERATOR TAKE YOU HOME. A PLANT MAINTENANCE SUPERVISOR, CAB OR UBER BRICK AND TILE MAKING MACHINE OPERATOR CANNOT BE [place] RESPONSIBLE BRICK AND TILE MAKING MACHINE OPERATOR. - We recommend that a responsible person [...] of surgery. Orthopedic patients having surgery [facility] listed as outpatient should bring their walker into the building. Orthopedic patients having surgery [facility] listed as to be admitted should leave their walkers in the car or with a family member. KAMINI Canas 02/01/22 documented in this encounterWright-Patterson Medical Center08-08-2022 History of Present illness Narrative* jL De Santiago - 01/03/2022 7:44 AM EDT [...] results found for: HBA1C PCP: Danae Cobb [facility] PAST MEDICAL HISTORY Diagnosis Date Abdominal pain, [...] Continues bandaid and neosporin. documented in this encounterWright-Patterson Medical Center08-03-2022 Instructions* Patient Instructions* Lj De Santiago - 12/29/2021 4:00 PM EDT Your toe is now healed. No signs of infection Continue with bactrim until complete If you have any issues or concerns develop, contact the office. documented in this encounterWright-Patterson Medical Center08-02-2022 History of Present illness Narrative* Jeff Victor [...] fat grafting OR Time Needed: 90 min [facility] or [facility]:any Equipment Request: lipografter, tumescent, 18G [...] is 8/10 on palpation, ?tinels, total size [id number] During this patient visit I have spent approximately 30 minutes out of 45 in counseling regarding treatment options and coordinating care. The patient is seen and examined by and the following reflects his/her service. Scribed by Hattie Holbrook LPN I agree with the Chief Complaint, ROS, and Past Histories independently gathered by the clinical sales support administrator and the remaining scribed note accurately describes my personal service to the patient. documented in this encounterWright-Patterson Medical Center05-04-2022 Miscellaneous Notes* Telephone Encounter - Dominga Whitley [...] improving in 3-5 days. documented in this encounterWright-Patterson Medical Center09-21-2019 History of Past illness Narrative* Problem Noted Date Resolved Date Chest pain 02/16/2019 02/16/2019 Overview: Lab Results Component Value Date HSTNT <6 02/16/2019 HSTNT <6 02/15/2019 TROPT <0.010 02/16/2019 TROPT <0.010 02/16/2019 TROPT <0.010 02/01/[address] Nieves evaluated the patient He will [...] of this encounter (statuses as of 09/29/2021) [facility] History of Past illness Narrative* Problem Noted Date Resolved Date Chest pain 02/16/2019 02/16/2019 Overview: Lab Results Component Value Date HSTNT <6 02/16/2019 HSTNT <6 02/15/2019 TROPT <0.010 02/16/2019 TROPT <0.010 02/16/2019 TROPT <0.010 02/01/[address] Nieves evaluated the patient He will [...] of this encounter (statuses as of 10/20/2021) [facility] of Past illness Narrative* Problem Noted Date Resolved Date Chest pain 02/16/2019 02/16/2019 Overview: Lab Results Component Value Date HSTNT <6 02/16/2019 HSTNT <6 02/15/2019 TROPT <0.010 02/16/2019 TROPT <0.010 02/16/2019 TROPT <0.010 02/01/[address] Nieves evaluated the patient He will [...] of this encounter (statuses as of 12/30/2021) [facility] of Past illness Narrative* Problem Noted Date Resolved Date Chest pain 02/16/2019 02/16/2019 Overview: Lab Results Component Value Date HSTNT <6 02/16/2019 HSTNT <6 02/15/2019 TROPT <0.010 02/16/2019 TROPT <0.010 02/16/2019 TROPT <0.010 02/01/[address] Nieves evaluated the patient He will [...] of this encounter (statuses as of 01/03/2022) [facility] of Past illness Narrative* Problem Noted Date Resolved Date Chest pain 02/16/2019 02/16/2019 Overview: Lab Results Component Value Date HSTNT <6 02/16/2019 HSTNT <6 02/15/2019 TROPT <0.010 02/16/2019 TROPT <0.010 02/16/2019 TROPT <0.010 02/01/[address] Nieves evaluated the patient He will [...] of this encounter (statuses as of 01/05/2022) [facility] of Past illness Narrative* Problem Noted Date Resolved Date Chest pain 02/16/2019 02/16/2019 Overview: Lab Results Component Value Date HSTNT <6 02/16/2019 HSTNT <6 02/15/2019 TROPT <0.010 02/16/2019 TROPT <0.010 02/16/2019 TROPT <0.010 02/01/[address] Nieves evaluated the patient He will [...] of this encounter (statuses as of 02/03/2022) [facility] of [facility] illness Narrative* Problem Noted Date Resolved Date Chest pain 02/16/2019 02/16/2019 Overview: Lab Results Component Value Date HSTNT <6 02/16/2019 HSTNT <6 02/15/2019 TROPT <0.010 02/16/2019 TROPT <0.010 02/16/2019 TROPT <0.010 02/01/[address] Nieves evaluated the patient He will [...] of this encounter (statuses as of 03/24/2022) [facility] of [facility] illness Narrative* Problem Noted Date Resolved Date Chest pain 02/16/2019 02/16/2019 Overview: Lab Results Component Value Date HSTNT <6 02/16/2019 HSTNT <6 02/15/2019 TROPT <0.010 02/16/2019 TROPT <0.010 02/16/2019 TROPT <0.010 02/01/[address] Nieves evaluated the patient He will [...] of this encounter (statuses as of 05/05/2022) [facility] Narrative* Problem Noted Date Resolved Date Chest pain 02/16/2019 02/16/2019 Overview: Lab Results Component Value Date HSTNT <6 02/16/2019 HSTNT <6 02/15/2019 TROPT <0.010 02/16/2019 TROPT <0.010 02/16/2019 TROPT <0.010 02/01/[address] Nieves evaluated the patient He will [...] of this encounter (statuses as of 11/02/2022) [facility] illness Narrative* Problem Noted Date Resolved Date Chest pain 02/16/2019 02/16/2019 Overview: Lab Results Component Value Date HSTNT <6 02/16/2019 HSTNT <6 02/15/2019 TROPT <0.010 02/16/2019 TROPT <0.010 02/16/2019 TROPT <0.010 02/01/[address] Nieves evaluated the patient He will [...] of this encounter (statuses as of 11/08/2022) [facility] Narrative* Problem Noted Date Resolved Date Chest pain 02/16/2019 02/16/2019 Overview: Lab Results Component Value Date HSTNT <6 02/16/2019 HSTNT <6 02/15/2019 TROPT <0.010 02/16/2019 TROPT <0.010 02/16/2019 TROPT <0.010 02/01/[address] Nieves evaluated the patient He will [...] of this encounter (statuses as of 11/14/2022) [facility] Narrative* Problem Noted Date Diagnosed Date Resolved Date Chest pain 02/16/2019 02/16/2019 Overview: Lab Results Component Value Date HSTNT <6 02/16/2019 HSTNT <6 02/15/2019 TROPT <0.010 02/16/2019 TROPT <0.010 02/16/2019 TROPT <0.010 02/01/[address] Nieves evaluated the patient He will [...] of this encounter (statuses as of 12/23/2022) [facility] Narrative* Problem Noted Date Diagnosed Date Resolved Date Chest pain 02/16/2019 02/16/2019 Overview: Lab Results Component Value Date HSTNT <6 02/16/2019 HSTNT <6 02/15/2019 TROPT <0.010 02/16/2019 TROPT <0.010 02/16/2019 TROPT <0.010 02/01/[address] Nieves evaluated the patient He will [...] of this encounter (statuses as of 01/03/2023) [facility] Narrative* Problem Noted Date Diagnosed Date Resolved Date Chest pain 02/16/2019 02/16/2019 Overview: Lab Results Component Value Date HSTNT <6 02/16/2019 HSTNT <6 02/15/2019 TROPT <0.010 02/16/2019 TROPT <0.010 02/16/2019 TROPT <0.010 02/01/[address] Nieves evaluated the patient He will [...] of this encounter (statuses as of 01/07/2023) [facility] Narrative* Problem Noted Date Diagnosed Date Resolved Date Chest pain 02/16/2019 02/16/2019 Overview: Lab Results Component Value Date HSTNT <6 02/16/2019 HSTNT <6 02/15/2019 TROPT <0.010 02/16/2019 TROPT <0.010 02/16/2019 TROPT <0.010 02/01/[address] Nieves evaluated the patient He will [...] of this encounter (statuses as of 01/31/2023) [facility] Narrative* Problem Noted Date Diagnosed Date Resolved Date Chest pain 02/16/2019 02/16/2019 Overview: Lab Results Component Value Date HSTNT <6 02/16/2019 HSTNT <6 02/15/2019 TROPT <0.010 02/16/2019 TROPT <0.010 02/16/2019 TROPT <0.010 02/01/[address] Nieves evaluated the patient He will [...] of this encounter (statuses as of 02/01/2023) [facility] Narrative* Problem Noted Date Diagnosed Date Resolved Date Chest pain 02/16/2019 02/16/2019 Overview: Lab Results Component Value Date HSTNT <6 02/16/2019 HSTNT <6 02/15/2019 TROPT <0.010 02/16/2019 TROPT <0.010 02/16/2019 TROPT <0.010 02/01/[address] Nieves evaluated the patient He will [...] of this encounter (statuses as of 02/07/2023) [facility] Narrative* Problem Noted Date Diagnosed Date Resolved Date Chest pain 02/16/2019 02/16/2019 Overview: Lab Results Component Value Date HSTNT <6 02/16/2019 HSTNT <6 02/15/2019 TROPT <0.010 02/16/2019 TROPT <0.010 02/16/2019 TROPT <0.010 02/01/[address] Nieves evaluated the patient He will [...] of this encounter (statuses as of 02/15/2023) [facility] Narrative* Problem Noted Date Diagnosed Date Resolved Date Chest pain 02/16/2019 02/16/2019 Overview: Lab Results Component Value Date HSTNT <6 02/16/2019 HSTNT <6 02/15/2019 TROPT <0.010 02/16/2019 TROPT <0.010 02/16/2019 TROPT <0.010 02/01/[address] Nieves evaluated the patient He will [...] of this encounter (statuses as of 02/25/2023) [facility] Narrative* Problem Noted Date Diagnosed Date Resolved Date Chest pain 02/16/2019 02/16/2019 Overview: Lab Results Component Value Date HSTNT <6 02/16/2019 HSTNT <6 02/15/2019 TROPT <0.010 02/16/2019 TROPT <0.010 02/16/2019 TROPT <0.010 02/01/[address] Nieves evaluated the patient He will [...] of this encounter (statuses as of 03/03/2023) [facility] Narrative* Problem Noted Date Diagnosed Date Resolved Date Chest pain 02/16/2019 02/16/2019 Overview: Lab Results Component Value Date HSTNT <6 02/16/2019 HSTNT <6 02/15/2019 TROPT <0.010 02/16/2019 TROPT <0.010 02/16/2019 TROPT <0.010 02/01/[address] Nieves evaluated the patient He will [...] of this encounter (statuses as of 03/03/2023) [facility] Narrative* Problem Noted Date Diagnosed Date Resolved Date Chest pain 02/16/2019 02/16/2019 Overview: Lab Results Component Value Date HSTNT <6 02/16/2019 HSTNT <6 02/15/2019 TROPT <0.010 02/16/2019 TROPT <0.010 02/16/2019 TROPT <0.010 02/01/[address] Nieves evaluated the patient He will [...] of this encounter (statuses as of 03/04/2023) [facility] Narrative* Problem Noted Date Diagnosed Date Resolved Date Chest pain 02/16/2019 02/16/2019 Overview: Lab Results Component Value Date HSTNT <6 02/16/2019 HSTNT <6 02/15/2019 TROPT <0.010 02/16/2019 TROPT <0.010 02/16/2019 TROPT <0.010 02/01/[address] Nieves evaluated the patient He will [...] of this encounter (statuses as of 03/08/2023) [facility] Narrative* Problem Noted Date Diagnosed Date Resolved Date Chest pain 02/16/2019 02/16/2019 Overview: Lab Results Component Value Date HSTNT <6 02/16/2019 HSTNT <6 02/15/2019 TROPT <0.010 02/16/2019 TROPT <0.010 02/16/2019 TROPT <0.010 02/01/[address] Nieves evaluated the patient He will [...] of this encounter (statuses as of 03/15/2023) [facility] Narrative* Problem Noted Date Diagnosed Date Resolved Date Chest pain 02/16/2019 02/16/2019 Overview: Lab Results Component Value Date HSTNT <6 02/16/2019 HSTNT <6 02/15/2019 TROPT <0.010 02/16/2019 TROPT <0.010 02/16/2019 TROPT <0.010 02/01/[address] Nieves evaluated the patient He will [...] of this encounter (statuses as of 03/15/2023) [facility] Narrative* Problem Noted Date Diagnosed Date Resolved Date Chest pain 02/16/2019 02/16/2019 Overview: Lab Results Component Value Date HSTNT <6 02/16/2019 HSTNT <6 02/15/2019 TROPT <0.010 02/16/2019 TROPT <0.010 02/16/2019 TROPT <0.010 02/01/[address] Nieves evaluated the patient He will [...] of this encounter (statuses as of 03/16/2023) [facility] Narrative* Problem Noted Date Diagnosed Date Resolved Date Chest pain 02/16/2019 02/16/2019 Overview: Lab Results Component Value Date HSTNT <6 02/16/2019 HSTNT <6 02/15/2019 TROPT <0.010 02/16/2019 TROPT <0.010 02/16/2019 TROPT <0.010 02/01/[address] Nieves evaluated the patient He will [...] of this encounter (statuses as of 03/22/2023) [facility] Narrative* Problem Noted Date Diagnosed Date Resolved Date Chest pain 02/16/2019 02/16/2019 Overview: Lab Results Component Value Date HSTNT <6 02/16/2019 HSTNT <6 02/15/2019 TROPT <0.010 02/16/2019 TROPT <0.010 02/16/2019 TROPT <0.010 02/01/[address] Nievse evaluated the patient He will follow the [...] of this encounter (statuses as of 04/02/2023) [facility] Narrative* Problem Noted Date Diagnosed Date Resolved Date Chest pain 02/16/2019 02/16/2019 Overview: Lab Results Component Value Date HSTNT <6 02/16/2019 HSTNT <6 02/15/2019 TROPT <0.010 02/16/2019 TROPT <0.010 02/16/2019 TROPT <0.010 02/01/[address] Nieves evaluated the patient He will [...] of this encounter (statuses as of 04/02/2023) [facility] Narrative* Problem Noted Date Diagnosed Date Resolved Date Chest pain 02/16/2019 02/16/2019 Overview: Lab Results Component Value Date HSTNT <6 02/16/2019 HSTNT <6 02/15/2019 TROPT <0.010 02/16/2019 TROPT <0.010 02/16/2019 TROPT <0.010 02/01/[address] Nieves evaluated the patient He will [...] of this encounter (statuses as of 04/02/2023) [facility] Narrative* Problem Noted Date Diagnosed Date Resolved Date Chest pain 02/16/2019 02/16/2019 Overview: Lab Results Component Value Date HSTNT <6 02/16/2019 HSTNT <6 02/15/2019 TROPT <0.010 02/16/2019 TROPT <0.010 02/16/2019 TROPT <0.010 02/01/[address] Nieves evaluated the patient He will [...] of this encounter (statuses as of 04/02/2023) [facility] Narrative* Problem Noted Date Diagnosed Date Resolved Date Chest pain 02/16/2019 02/16/2019 Overview: Lab Results Component Value Date HSTNT <6 02/16/2019 HSTNT <6 02/15/2019 TROPT <0.010 02/16/2019 TROPT <0.010 02/16/2019 TROPT <0.010 02/01/[address] Nieves evaluated the patient He will [...] of this encounter (statuses as of 04/02/2023) [facility] Narrative* Problem Noted Date Diagnosed Date Resolved Date Chest pain 02/16/2019 02/16/2019 Overview: Lab Results Component Value Date HSTNT <6 02/16/2019 HSTNT <6 02/15/2019 TROPT <0.010 02/16/2019 TROPT <0.010 02/16/2019 TROPT <0.010 02/01/[address] Nieves evaluated the patient He will [...] of this encounter (statuses as of 05/13/2023) [facility] [facility] Narrative* Problem Noted Date Diagnosed Date Resolved Date Chest pain 02/16/2019 02/16/2019 Overview: Lab Results Component Value Date HSTNT <6 02/16/2019 HSTNT <6 02/15/2019 TROPT <0.010 02/16/2019 TROPT <0.010 02/16/2019 TROPT <0.010 02/01/[address] Nieves evaluated the patient He will [...] of this encounter (statuses as of 08/01/2023) [facility] History of Past illness Narrative* Problem Noted Date Diagnosed Date Resolved Date Chest pain 02/16/2019 02/16/2019 Overview: Lab Results Component Value Date HSTNT <6 02/16/2019 HSTNT <6 02/15/2019 TROPT <0.010 02/16/2019 TROPT <0.010 02/16/2019 TROPT <0.010 02/01/[address] Nieves evaluated the patient He will [...] of this encounter (statuses as of 08/02/2023) [facility] History of Past illness Narrative* Problem Noted Date Diagnosed Date Resolved Date Chest pain 02/16/2019 02/16/2019 Overview: Lab Results Component Value Date HSTNT <6 02/16/2019 HSTNT <6 02/15/2019 TROPT <0.010 02/16/2019 TROPT <0.010 02/16/2019 TROPT <0.010 02/01/[address] Nieves evaluated the patient He will [...] of this encounter (statuses as of 08/09/2023) [facility] History of Past illness Narrative* Problem Noted Date Diagnosed Date Resolved Date Chest pain 02/16/2019 02/16/2019 Overview: Lab Results Component Value Date HSTNT <6 02/16/2019 HSTNT <6 02/15/2019 TROPT <0.010 02/16/2019 TROPT <0.010 02/16/2019 TROPT <0.010 02/01/[address] Nieves evaluated the patient He will [...] of this encounter (statuses as of 08/14/2023) [facility] History of Past illness Narrative* Problem Noted Date Diagnosed Date Resolved Date Chest pain 02/16/2019 02/16/2019 Overview: Lab Results Component Value Date HSTNT <6 02/16/2019 HSTNT <6 02/15/2019 TROPT <0.010 02/16/2019 TROPT <0.010 02/16/2019 TROPT <0.010 02/01/[address] Nieves evaluated the patient He will [...] of this encounter (statuses as of 08/19/2023) [facility] History of Past illness Narrative* Problem Noted Date Diagnosed Date Resolved Date Chest pain 02/16/2019 02/16/2019 Overview: Lab Results Component Value Date HSTNT <6 02/16/2019 HSTNT <6 02/15/2019 TROPT <0.010 02/16/2019 TROPT <0.010 02/16/2019 TROPT <0.010 02/01/[address] Nieves evaluated the patient He will [...] of this encounter (statuses as of 09/05/2023) [facility] History of Past illness Narrative* Problem Noted Date Diagnosed Date Resolved Date Chest pain 02/16/2019 02/16/2019 Overview: Lab Results Component Value Date HSTNT <6 02/16/2019 HSTNT <6 02/15/2019 TROPT <0.010 02/16/2019 TROPT <0.010 02/16/2019 TROPT <0.010 02/01/[address] Nieves evaluated the patient He will [...] of this encounter (statuses as of 09/08/2023) [facility] History of Past illness Narrative* Problem Noted Date Diagnosed Date Resolved Date Chest pain 02/16/2019 02/16/2019 Overview: Lab Results Component Value Date HSTNT <6 02/16/2019 HSTNT <6 02/15/2019 TROPT <0.010 02/16/2019 TROPT <0.010 02/16/2019 TROPT <0.010 02/01/[address] Nieves evaluated the patient He will [...] of this encounter (statuses as of 09/09/2023) [facility] History of Past illness Narrative* Problem Noted Date Diagnosed Date Resolved Date Chest pain 02/16/2019 02/16/2019 Overview: Lab Results Component Value Date HSTNT <6 02/16/2019 HSTNT <6 02/15/2019 TROPT <0.010 02/16/2019 TROPT <0.010 02/16/2019 TROPT <0.010 02/01/[address] Nieves evaluated the patient He will [...] of this encounter (statuses as of 09/12/2023) [facility] History of Past illness Narrative* Problem Noted Date Diagnosed Date Resolved Date Chest pain 02/16/2019 02/16/2019 Overview: Lab Results Component Value Date HSTNT <6 02/16/2019 HSTNT <6 02/15/2019 TROPT <0.010 02/16/2019 TROPT <0.010 02/16/2019 TROPT <0.010 02/01/[address] Nieves evaluated the patient He will [...] of this encounter (statuses as of 09/13/2023) [facility] History of Past illness Narrative* Problem Noted Date Diagnosed Date Resolved Date Chest pain 02/16/2019 02/16/2019 Overview: Lab Results Component Value Date HSTNT <6 02/16/2019 HSTNT <6 02/15/2019 TROPT <0.010 02/16/2019 TROPT <0.010 02/16/2019 TROPT <0.010 02/01/[address] Nieves evaluated the patient He will [...] of this encounter (statuses as of 09/14/2023) [facility] History of Past illness Narrative* Problem Noted Date Diagnosed Date Resolved Date Chest pain 02/16/2019 02/16/2019 Overview: Lab Results Component Value Date HSTNT <6 02/16/2019 HSTNT <6 02/15/2019 TROPT <0.010 02/16/2019 TROPT <0.010 02/16/2019 TROPT <0.010 02/01/[address] 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 Diaphragm paralysis resolved Cellulitis of foot, left acu te [facility] Work Phone: Evaluation note* Diagnosis Onset Date Resolution Status Lung 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 on CT acut e Bronchiectasis chronic 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 Diagnosis Open wound of toe, initial encounter- Primary [facility]* Diagnosis Left leg pain- Primary Pain in limb documented in this encounter [facility] note* Diagnosis Preop examination [Z01.818 (ICD-10-CM)]- [...] limb [facility] Diagnosis Preop examination [Z01.818 (ICD-10-CM)]- Primary [...] 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 chronic [facility] Work Phone: Evaluation note* Diagnosis Post-operative state- Primary Other postprocedural status 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 TIA (transient ischemic attack) acute [facility] Work Phone: Evaluation note* Diagnosis Onset Date Resolution Status 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 TIA (transient ischemic attack) acute Chest pain acute Essential hypertension acute Sinus pause acute TIA (transient ischemic attack) acute [facility] Work Phone: Evaluation note* Diagnosis Onset Date Resolution Status TIA (transient ischemic attack) acute Chest pain acute Essential hypertension acute Sinus pause acute TIA (transient ischemic attack) acute [facility] Work Phone: Evaluation note* Diagnosis Onset Date Resolution Status TIA (transient ischemic attack) acute Chest pain acute Essential hypertension acute Sinus pause acute TIA (transient ischemic attack) acute Internal impingement of right shoulder acute [facility] Work Phone: Evaluation note* Diagnosis Onset Date Resolution Status Internal impingement of right shoulder acute 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 Essential hypertension acute Sinus pause acute TIA (transient ischemic attack) acute [facility] Work Phone: Evaluation note* Diagnosis Acute right-sided low back pain with right-sided sciatica- Primary [facility] Diagnosis Post-operative state- Primary Other postprocedural status Painful scar Scar condition and fibrosis of skin [facility] Diagnosis Onset Date Resolution Status 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 Diagnosis Left thigh pain Pain in limb [facility]* Diagnosis ELENA (acute kidney injury) (HCC)- Primary Acute kidney failure, unspecified Impaired fasting glucose [facility] Diagnosis Encounter for screening for lung cancer- Primary Former tobacco use Personal history of tobacco use, presenting hazards to health Lung nodules Other nonspecific abnormal finding of lung field [facility] Diagnosis Abnormal mammogram- Primary Abnormal mammogram, unspecified [facility] Diagnosis Coccyodynia Other disorder of coccyx Lumbar spondylosis Lumbosacral spondylosis without myelopathy [facility]* Diagnosis Onset Date Resolution Status 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* Diagnosis Abnormal mammogram Abnormal mammogram, unspecified documented [facility]* Diagnosis Asymptomatic postmenopausal status documented [facility] this [facility]* Diagnosis Encounter for screening mammogram for breast cancer documented [facility]* Diagnosis Lumbar spondylosis Lumbosacral spondylosis without myelopathy [facility] Diagnosis ELENA (acute kidney injury) (HCC)- Primary Acute kidney failure, unspecified [facility] Diagnosis Epigastric pain- Primary Abdominal pain, epigastric Screening for colon cancer Special screening for malignant neoplasms, colon History of colonic polyps Personal history of colonic polyps Blood in stool [facility] Diagnosis Rectal bleeding- Primary Hemorrhage of rectum and anus Screening for colon cancer Special screening for malignant neoplasms, colon History of colonic polyps Personal history of colonic polyps Epigastric pain Abdominal pain, epigastric Blood in stool [facility] Diagnosis Benign paroxysmal positional vertigo of right ear- Primary [facility] Diagnosis Benign paroxysmal vertigo of right ear- Primary Benign paroxysmal positional vertigo Benign paroxysmal positional vertigo of right ear documented in this encounter [facility] note* Diagnosis Benign paroxysmal vertigo of right ear- Primary Benign paroxysmal positional vertigo [facility] Diagnosis Acquired hypothyroidism Unspecified hypothyroidism [facility] Diagnosis Seasonal allergic rhinitis, unspecified trigger- [...] recurrent episode, moderate [facility] Diagnosis Chest pain, unspecified type- Primary [...] calf pain- Primary [facility] Diagnosis Chest pain, unspecified type- Primary [...] Right calf pain [facility] Diagnosis Chest pain, unspecified type- Primary [...] disorder of coccyx [facility] Diagnosis Chest pain, unspecified type- Primary [...] sinuses documented [facility] Diagnosis Chest pain, unspecified type- Primary [...] Primary documented [facility] Diagnosis Chest pain, unspecified type- Primary [...] chemistry documented in [facility] Diagnosis Chest pain, unspecified type- Primary [...] cancer documented [facility]* Diagnosis Chest pain, unspecified type- Primary [...] hypothyroidism documented [facility] Diagnosis Chest pain, unspecified type- Primary [...] right lower quadrant documented in this encounter [facility] note* Diagnosis Chest pain, unspecified type- [...] right lower quadrant documented in this encounter [facility] note* Diagnosis Chest pain, unspecified type- [...] quadrant [facility] Diagnosis Chest pain, unspecified type- Primary [...] quadrant documented [facility] Diagnosis Chest pain, unspecified type- Primary [...] hypothyroidism Unspecified hypothyroidism documented in this encounter [facility] note* Diagnosis Chest pain, unspecified type- [...] gives out, right documented in this encounter [facility] note* Diagnosis Chest pain, unspecified type- [...] hypothyroidism Unspecified hypothyroidism documented in this encounter [facility] note* Diagnosis Chest pain, unspecified type- [...] right lower quadrant documented in this encounter [facility] note* Diagnosis Chest pain, unspecified type- [...] referable to limbs documented in this encounter [facility] note* Diagnosis Chest pain, unspecified type- [...] kidney disease (HCC) documented in this encounter [facility] note* Diagnosis Chest pain, unspecified type- [...] referable to limbs [facility] Diagnosis Chest pain, unspecified type- Primary [...] referable to limbs [facility] Diagnosis Chest pain, unspecified type- Primary [...] referable to limbs [facility] Diagnosis Chest pain, unspecified type- Primary [...] referable to limbs [facility] Diagnosis Chest pain, unspecified type- Primary [...] limbs [facility] Diagnosis Chest pain, unspecified type- Primary [...] of unspecified site documented in this encounter [facility] note* Diagnosis Chest pain, unspecified type- [...] other respiratory manifestations documented in this encounter [facility] note* Diagnosis Chest pain, unspecified type- [...] hypothyroidism Unspecified hypothyroidism documented in this encounter [facility] note* Diagnosis Chest pain, unspecified type- [...] disorders of liver documented in this encounter [facility] note* Diagnosis Chest pain, unspecified type- [...] right upper quadrant documented in this encounter [facility] note* Diagnosis Chest pain, unspecified type- [...] disorders of liver documented in this encounter [facility] noteNo assessment information availableW[facility] Work [facility]: Evaluation [facility]* Diagnosis [...] extremity, initial encounter documented in this encounter [facility] note* Diagnosis Chest pain, unspecified type- [...] extremity, initial encounter [facility] Diagnosis Chest pain, unspecified type- Primary [...] recurrent episode, moderate [facility] Diagnosis Onset Date Resolution Status Admit Date Chronic hypoxic respiratory failure chronic December 05, 2024 1:54pm Lung nodule chronic December 05 1:54pm 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 December 05, 2024 1:54pm [facility] Work Phone: Hospital Discharge instructions Additional Instructions Follow-up with orthopedics as needed. Take Tylenol and ice the affected areas. [facility] Work Phone: Hospital Discharge instructionsAmbulatory Orders* Orthopedics Location: None Selected * PT Referral Location: None Selected [facility] Work Phone: Hospital Discharge instructions Additional Instructions Follow-up with primary care physician. Return back to the ED if symptoms change or worsen. At this point in time no clear reason for your pain. You received Toradol here in the emergency department. No ibuprofen for 8 hours after that okay to take. Okay for Tylenol.[facility] Work Phone: Hospital Discharge instructionsAdditional Instructions Medication as directed. Follow-up with your primary care provider. You may require physical therapy/Occupational Therapy and other outpatient imaging.[facility] Work Phone: Reason for referral (narrative)* Diagnostic Procedure Only (Routine) - Pending Review Specialty Diagnoses / Procedures Referred By France sanabria Referred To Contact [facility] Diagnoses Left thigh pain Procedures US EXTREMITY MASS/FLUID COLLECTION LEFT Lili Bob PA-C [address] [address] [facility] Referral ID Status Reason Start Date Expiration Date Visits Requested Visits Authorized [id number] Pending Review Auto-Generat ed Referral 12/30/2022 01/29/2024 1 1 [facility] for referral (narrative)* Diagnostic Procedure Only (Routine) - Pending Review Specialty Diagnoses / Procedures Referred By Contac t Referred To Contact [facility] Diagnoses Abnormal mammogram Procedures US BREAST LTD LEFT US BREAST UNI REAL TIME WITH IMAGE LIMITED Tatiana Ronquillo MD [address] [place] [address] [facility] [address] [place] [address] Referral ID Status Reason Start Date Expiration Date Visits Requested Visits Authorized [id number] Pending Review Auto-Generat ed Referral 02/25/2023 03/26/2024 1 1 * Diagnostic Procedure Only (Routine) - Pending Review Specialty Diagnoses / Procedures Referred By France t Referred To Contact [facility] Diagnoses Abnormal mammogram Procedures LUIS DIAGNOSTIC LEFT DIAGNOSTIC MAMMOGRAPHY COMPUTER-AIDED DETCJ UNI Tatiana Ronquillo MD [address] [place] [address] [facility] [address] [place] [address] Referral ID Status Reason Start Date Expiration Date Visits Requested Visits Authorized [id number] Pending Review Auto-Generat ed Referral 02/25/2023 03/26/2024 1 1 [facility] for referral (narrative)* Diagnostic Procedure Only (Routine) - Closed Specialty Diagnoses / Procedures Referred By Contac t Referred To Contact [facility] Diagnoses Encounter for screening mammogram for breast cancer Procedures LUIS SCREENING SCREENING MAMMOGRAPHY BI 2-VIEW BREAST INC CAD Tatiana Ronquillo MD [address] [place] [address] [facility] [address] [place] [address] Referral ID Status Reason Start Date Expiration Date V isits Requested Visits Authorized [id number] Closed Auto-Generate d Referral 01/26/2023 02/25/2024 1 1 [facility] for referral (narrative)* Diagnostic Procedure Only (Routine) - Closed Specialty Diagnoses / Procedures Referred By France sanabria Referred To Contact XR IMAGING Diagnoses Lumbar spondylosis Procedures XR LUMBAR MOTION 4V AP/LAT/ FLEX/EXT RADEX SPINE LUMBOSACRAL MINIMUM 4 VIEWS Neal Guevara MD [address] [facility] [address] [place] [address] [place] [address] Referral ID Status Reason Start Date Expiration Date V isits Requested Visits Authorized [id number] Closed Auto-Generate d Referral 02/23/2023 03/24/2024 1 1 [facility] for referral (narrative)* Outpatient Procedure (Routine) - Pending Review Specialty Diagnoses / Procedures Referred By France sanabria Referred To Contact [facility] Diagnoses Screening for colon cancer History of colonic polyps Epigastric pain Blood in stool Procedures EGD DIAGNOSTIC ESOPHAGOGASTRODUODENOS COPY TRANSORAL DIAGNOSTIC Isidro Lipscomb MD [address] [facility] [address] [place] [address] [facility] [address] [place] [address] Referral ID Status Reason Start Date Expiration Date Visits Requested Visits Authorized [id number] Pending Review Auto-Generat ed Referral 08/18/2023 08/17/2024 1 1 * Outpatient Procedure (Routine) - Pending Review Specialty Diagnoses / Procedures Referred By France sanabria Referred To Contact [facility] Diagnoses Screening for colon cancer History of colonic polyps Epigastric pain Blood in stool Procedures COLONOSCOPY DIAGNOSTIC COLONOSCOPY FLX DX W/COLLJ SPEC WHEN Isidro Rudolph MD [address] [address] [facility] [address] [place] [address] Referral ID Status Reason Start Date Expiration Date Visits Requested Visits Authorized [id number] Pending Review Auto-Generat ed Referral 08/18/2023 08/17/2024 1 1 [facility] for referral (narrative)* Outpatient Procedure (Routine) - Closed Specialty Diagnoses / Procedures Referred By France sanabria Referred To Contact Diagnoses Screening for colon cancer History of colonic polyps Epigastric pain Blood in stool Procedures EGD DIAGNOSTIC ESOPHAGOGASTRODUODENOSCOP Y TRANSORAL DIAGNOSTIC Isidro Lipscomb MD [address] [address] [facility] [address] [place] [address] Referral ID Status Reason Start Date Expiration Date V isits Requested Visits Authorized [id number] Closed Auto-Generate d Referral 09/04/2023 12/03/2023 1 1 * Outpatient Procedure (Routine) - Closed Specialty Diagnoses / Procedures Referred By France sanabria Referred To Contact Diagnoses Screening for colon cancer History of colonic polyps Epigastric pain Blood in stool Procedures COLONOSCOPY DIAGNOSTIC COLONOSCOPY FLX DX W/COLLJ SPEC WHEN Isidro Rudolph MD [address] [address] [facility] [address] [place] [address] Referral ID Status Reason Start Date Expiration Date V isits Requested Visits Authorized [id number] Closed Auto-Generate d Referral 09/04/2023 12/03/2023 1 1 [facility] for referral (narrative)* Diagnostic Procedure Only (Urgent) - Closed Specialty Diagnoses / Procedures Referred By France sanabria Referred To Contact US IMAGING Diagnoses Right calf pain Procedures US DVT LOWER RIGHT DUP-SCAN XTR VEINS UNILATERAL/LIMITED STUDY Yamile Curry DO [address] [place] [address] [place] [address] Referral ID Status Reason Start Date Expiration Date V isits Requested Visits Authorized [id number] Closed Auto-Generate d Referral 01/23/2024 02/20/2025 1 1 [facility] for referral (narrative)* Diagnostic Procedure Only (Routine) - Closed Specialty Diagnoses / Procedures Referred By Frnace sanabria Referred To Contact XR IMAGING Diagnoses Coccyodynia Procedures XR SACRUM/COCCYX 3V AP/LAT RADEX SACRUM & COCCYX MINIMUM 2 VIEWS EricklogShavonne johnston APRN.CNP [address] [place] [address] [place] [address] Referral ID Status Reason Start Date Expiration Date V isits Requested Visits Authorized [id number] Closed Auto-Generate d Referral 12/19/2022 01/18/2024 1 1 [facility] for referral (narrative)* Diagnostic Procedure Only (Routine) - New Request Specialty Diagnoses / Procedures Referred By France sanabria Referred To Contact BR IMAGING Diagnoses Encounter for screening mammogram for breast cancer Procedures LUIS SCREENING W CALI SCREENING DIGITAL BREAST TOMOSYNTHESIS BI SCREENING MAMMOGRAPHY BI 2-VIEW BREAST INC Tatiana Morris MD [address] [place] [address] [facility] [address] [place] [address] Referral ID Status Reason Start Date Expiration Date Visits Requested Visits Authorized [id number] New Request Auto-Generat ed Referral 04/03/2024 05/03/2025 1 1 [facility] for referral (narrative)* Diagnostic Procedure Only (Routine) - Closed Specialty Diagnoses / Procedures Referred By Contac t Referred To Contact US IMAGING Diagnoses RLQ abdominal mass Procedures US SOFT TISSUE ABDOMEN US ABDOMINAL REAL TIME W/IMAGE LIMITED PodlogShavonne johnston APRN.CNP [address] [place] [address] [place] [address] Referral ID Status Reason Start Date Expiration Date V isits Requested Visits Authorized [id number] Closed Auto-Generate d Referral 04/19/2024 05/19/2025 1 1 [facility] for referral (narrative)* Diagnostic Procedure Only (Routine) - Closed Specialty Diagnoses / Procedures Referred By Contac t Referred To Contact XR IMAGING Diagnoses Falls frequently Knee gives out, right Procedures XR KNEE GENERAL 4V AP BOTH/PA BOTH/LAT/MERC RIGHT RADIOLOGIC EXAM KNEE COMPLETE 4/MORE VIEWS Tatiana Ronquillo MD [address] [place] [address] [place] [address] Referral ID Status Reason Start Date Expiration Date V isits Requested Visits Authorized [id number] Closed Auto-Generate d Referral 04/29/2024 05/29/2025 1 1 * Physical Therapy (Routine) - Closed Specialty Diagnoses / Procedures Referred By Contac t Referred To Contact [facility] Diagnoses Falls frequently Knee gives out, right Procedures CONSULT TO PHYSICAL THERAPY PHYSICAL THERAPY EVALUATION HIGH COMPLEX 45 MINS Tatiana Ronquillo MD [address] [place] [address] [facility] [place] [address] [place] [address] Referral ID Status Reason Start Date Expiration Date V isits Requested Visits Authorized [id number] Closed Auto-Generate d Referral 04/29/2024 04/29/2025 1 0 [facility] for referral (narrative)* Diagnostic Procedure Only (Urgent) - Closed Specialty Diagnoses / Procedures Referred By Contac t Referred To Contact US IMAGING Diagnoses Right lower quadrant abdominal mass Procedures US EXTREMITY MASS/FLUID COLLECTION RIGHT Sabine Crowley APRN.CNP [address] [place] [id number] [place] [address] Referral ID Status Reason Start Date Expiration Date V isits Requested Visits Authorized [id number] Closed Auto-Generate d Referral 04/18/2024 05/18/2025 1 1 [facility] for referral (narrative)No reason for referral information [facility] Work Phone: Reason for visit Narrative* Diagnostic Procedure Only (Routine) - Closed Specialty Diagnoses / Procedures Referred By Contac t Referred To Contact US IMAGING Diagnoses Left thigh pain Procedures US EXTREMITY MASS/FLUID COLLECTION LEFT Lili Bob PA-C [address] [facility] [address] [place] [address] [facility] Referral ID Status Reason Start Date Expiration Date V isits Requested Visits Authorized [id number] Closed Auto-Generate d Referral 12/30/2022 01/29/2024 1 1 [facility] for visit Narrative* Diagnostic Procedure Only (Routine) - Closed Specialty Diagnoses / Procedures Referred By Contac t Referred To Contact BR IMAGING Diagnoses Abnormal mammogram Procedures LUIS DIAGNOSTIC LEFT DIAGNOSTIC MAMMOGRAPHY COMPUTER-AIDED DETCJ UNI Tatiana Ronquillo MD [address] [place] [address] [facility] [address] [place] [address] Referral ID Status Reason Start Date Expiration Date V isits Requested Visits Authorized [id number] Closed Auto-Generate d Referral 02/25/2023 03/26/2024 1 1 [facility] for visit Narrative* Diagnostic Procedure Only (Routine) - Authorized Specialty Diagnoses / Procedures Referred By Contac t Referred To Contact BR IMAGING Diagnoses Abnormal mammogram Procedures US BREAST LTD LEFT US BREAST UNI REAL TIME WITH IMAGE LIMITED Tatiana Ronquillo MD [address] [place] [address] [facility] [address] [place] [address] Referral ID Status Reason Start Date Expiration Date Visits Requested Visits Authorized [id number] Authorized Auto-Generat ed Referral 04/12/2024 1 1 [facility] for visit Narrative* Diagnostic Procedure Only (Routine) - Closed Specialty Diagnoses / Procedures Referred By France t Referred To Contact BR IMAGING Diagnoses Encounter for screening mammogram for breast cancer Procedures LUIS SCREENING SCREENING MAMMOGRAPHY BI 2-VIEW BREAST INC CAD Tatiana Ronquillo MD [address] [place] [address] [facility] [address] [place] [id number] Referral ID Status Reason Start Date Expiration Date V isits Requested Visits Authorized [id number] Closed Auto-Generate d Referral 01/26/2023 02/25/2024 1 1 [facility] for visit Narrative* Diagnostic Procedure Only (Routine) - Closed Specialty Diagnoses / Procedures Referred By Contac t Referred To Contact XR IMAGING Diagnoses Lumbar spondylosis Procedures XR LUMBAR MOTION 4V AP/LAT/ FLEX/EXT RADEX SPINE LUMBOSACRAL MINIMUM 4 VIEWS Neal Guevara MD [address] [address] [place] [address] Referral ID Status Reason Start Date Expiration Date V isits Requested Visits Authorized [id number] Closed Auto-Generate d Referral 02/23/2023 03/24/2024 1 1 [facility] for visit Narrative* Outpatient Procedure (Routine) - Closed Specialty Diagnoses / Procedures Referred By Contac t Referred To Contact Diagnoses Screening for colon cancer History of colonic polyps Epigastric pain Blood in stool Procedures EGD DIAGNOSTIC ESOPHAGOGASTRODUODENOSCOP Y TRANSORAL DIAGNOSTIC Isidro Lipscomb MD [address] [address] [facility] [address] [place] [address] Referral ID Status Reason Start Date Expiration Date V isits Requested Visits Authorized [id number] Closed Auto-Generate d Referral 09/04/2023 12/03/2023 1 1 [facility] for visit Narrative* Diagnostic Procedure Only (Urgent) - Closed Specialty Diagnoses / Procedures Referred By Contac t Referred To Contact US IMAGING Diagnoses Right calf pain Procedures US DVT LOWER RIGHT DUP-SCAN XTR VEINS UNILATERAL/LIMITED STUDY Yamile Curry, DO [address] [place] [address] [place] [address] Referral ID Status Reason Start Date Expiration Date V isits Requested Visits Authorized [id number] Closed Auto-Generate d Referral 01/23/2024 02/20/2025 1 1 [facility] for visit Narrative* Diagnostic Procedure Only (Routine) - Closed Specialty Diagnoses / Procedures Referred By Contac t Referred To Contact XR IMAGING Diagnoses Coccyodynia Procedures XR SACRUM/COCCYX 3V AP/LAT RADEX SACRUM & COCCYX MINIMUM 2 VIEWS PodlogarShavonne APRN.CNP [address] [place] [address] [place] [address] Referral ID Status Reason Start Date Expiration Date V isits Requested Visits Authorized [id number] Closed Auto-Generate d Referral 12/19/2022 01/18/2024 1 1 [facility] for visit Narrative* Diagnostic Procedure Only (Routine) - Closed Specialty Diagnoses / Procedures Referred By Contac t Referred To Contact XR IMAGING Diagnoses Falls frequently Knee gives out, right Procedures XR KNEE GENERAL 4V AP BOTH/PA BOTH/LAT/MERC RIGHT RADIOLOGIC EXAM KNEE COMPLETE 4/MORE VIEWS Tatiana Ronquillo MD [address] [place] [address] [place] [address] Referral ID Status Reason Start Date Expiration Date V isits Requested Visits Authorized [id number] Closed Auto-Generate d Referral 04/29/2024 05/29/2025 1 1 [facility] for visit Narrative* MRI/CT (Routine) - Closed Specialty Diagnoses / Procedures Referred By Contac t Referred To Contact MR IMAGING Diagnoses Hepatic cyst Procedures MRI LIVER WO/W IVCON MRI ABDOMEN W/O & W/CONTRAST MATERIAL Podlogar, ROSALINA Marvin.[employer] [address] [place] [address] Phone: tel: fax: [place] [address] Referral ID Status Reason Start Date Expiration Date V isits Requested Visits Authorized [id number] Closed Auto-Generate d Referral 08/06/2024 09/05/2025 1 1 [facility] Diagnostic Procedure Only (Urgent) - Closed Specialty Diagnoses / Procedures Referred By Contac t Referred To Contact XR IMAGING Diagnoses Fall (on) (from) other stairs and steps, initial encounter Hematoma of right lower extremity, initial encounter Procedures XR TIBIA FIBULA 2V AP/LAT RIGHT RADIOLOGIC EXAMINATION TIBIA & FIBULA 2 VIEWS Tatiana Ronquillo MD [address] [place] [address] Phone: tel: fax: [place] [address] Referral ID Status Reason Start Date Expiration Date V isits Requested Visits Authorized [id number] Closed Auto-Generate d Referral 10/23/2024 11/22/2025 1 1 [facility] Summary Purpose Family History No Family History [...] Will No July 10 4:00pm Power of State Inspector No July 10, 2021 4:00pm Advance Directive Response Recorded Date/ Time Advance Directives No September 10, 2 014 9:26pm Living Will No September 16, 2021 3:59pm Power of State Inspector No September 16 3:59pm Documents on File Type Date Recorded 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 Advance Directive(s) 11/18/2020 7:50 PM Advance Directive(s) 02/15/2019 10:47 PM Advance Directive(s) 02/01/2019 7:28 AM Advance Directive Response Recorded Date/ Time Advance Directives No September 10, 2 014 9:26pm Living Will No November 01, 2021 2 :27pm Power of State Inspector No November 01, 2021 2:27pm Advance Directive Response Recorded Date/ Time Advance Directives No September 10, 2 014 9:26pm Living Will No December 08, 2021 1:40pm Power of State Inspector No December 08 1:40pm Advance Directive Response Recorded Date/ Time Advance Directives No September 10, 2 014 9:26pm Living Will No December 12, 2021 6:59pm Power of State Inspector No December 12 6:59pm Advance Directive Response Recorded Date/ Time Advance Directives No September 10, 2 014 9:26pm Living Will No December 12, 2021 10:17pm Power of State Inspector No December 12 10:17pm Advance Directive Response Recorded Date/ Time Advance Directives No September 10, 2 014 8:26pm Living Will No April 07, 2 022 3:43pm Power of State Inspector No April 07, 2022 3:43pm Advance Directive Response Recorded Date/ Time Advance Directives No September 10, 2 014 8:26pm Living Will No June 07 5:49pm Power of State Inspector No June 07, 2022 5:49pm Advance Directive Response Recorded Date/ Time Advance Directives No June 10:49am Living Will No July 13, 023 10:49am Power of State Inspector No July 13, 2022 10:49am Advance Directive Response Recorded Date/ Time Advance Directives No June 10:49am Living Will No July 19, 2 023 5:02pm Power of State Inspector No July 19, 2022 5:02pm Advance Directive Response Recorded Date/ Time Advance Directives No June 11:49am Living Will No July 19, 2 023 6:02pm Power of State Inspector No July 19, 2022 6:02pm Advance Directive Response Recorded Date/ Time Name of Medical Power of State Inspector HERMINIO HADDAD September 03, 2022 7:13pm Advance Directives No June 11:49am Living Will Yes September 03, 2022 7:13pm Power of State Inspector Yes September 03 7:13pm Advance Directive Response Recorded Date/ Time Name of Medical Power of State Inspector HERMINIO HADDAD September 03, 2022 7:13pm Advance Directives No June 11:49am Living Will No November 02, 2022 1 1:54pm Power of State Inspector No November 02, 2022 11:54pm Advance Directive Response Recorded Date/ Time Name of Medical Power of State Inspector HERMINIO HADDAD September 03, 2022 7:13pm Advance Directives No June 11:49am Living Will Yes November 16, 2022 7:08pm Power of State Inspector No November 16 7:08pm Advance Directive Response Recorded Date/ Time Name of Medical Power of State Inspector HERMINIO HADDAD September 03, 2022 7:13pm Advance Directives No June 11:49am Living Will No December 01, 2022 3 :44pm Power of State Inspector No December 01, 2022 3:44pm Advance Directive Response Recorded Date/ Time Advance Directives No June 11:49am Living Will No March 13 4:56pm Power of State Inspector No March 13, 2023 4:56pm Advance Directive Response Recorded Date/ Time Name of Medical Power of State Inspector Herminio- S.O August 14, 2023 3:18pm Advance Directives No June 11:49am Living Will Yes August 14, 2023 3:18pm Power of State Inspector Yes August 13 3:18pm Advance Directive Response Recorded Date/ Time Name of Medical Power of State Inspector Herminio- S.O August 14, 2023 3:18pm Advance Directives No June 11:49am Living Will No September 29, 2023 6: 11pm Power of State Inspector No September 29, 2023 6:11pm Advance Directive Response Recorded Date/ Time Living Will No July 19, 025 10:07pm Do you have a Healthcare Power of State Inspector? No July 19, 2024 10:07pm Living Will No July 31, 2024 4:29pm Do you have a Healthcare Power of State Inspector? No July 31, 2024 4:29pm Do you have a Healthcare Power of State Inspector? No September 30, 2024 7:28am Do you have a Healthcare Power of State Inspector? No October 13, 2024 5:52pm Advance Directives No June 11:49am Advance Directive Response Recorded Date/ Time Living Will Yes November 29, 2023 8 :16pm Do you have a Healthcare Power of State Inspector? No November 29, 2023 8:16pm Living Will No July 31, 2024 4:29pm Do you have a Healthcare Power of State Inspector? No July 31, 2024 4:29pm Do you have a Healthcare Power of State Inspector? No September 30, 2024 7:28am Do you have a Healthcare Power of State Inspector? No October 13, 2024 5:52pm Advance Directives No June 11:49am Advance Directive Response Recorded Date/ Time Living Will No February 11, 2024 10:23pm Do you have a Healthcare Power of State Inspector? No February 11, 2024 10:23pm Living Will Yes November 29, 2023 8 :16pm Do you have a Healthcare Power of State Inspector? No November 29, 2023 8:16pm Do you have a Healthcare Power of State Inspector? No September 30, 2024 7:28am Do you have a Healthcare Power of State Inspector? No October 13, 2024 5:52pm Advance Directives No June 11:49am Advance Directive Response Recorded Date/ Time Living Will No February 11, 2024 10:23pm Do you have a Healthcare Power of State Inspector? No February 11, 2024 10:23pm Living Will Yes November 29, 2023 8 :16pm Do you have a Healthcare Power of State Inspector? No November 29, 2023 8:16pm Do you have a Healthcare Power of State Inspector? No September 30, 2024 7:28am Do you have a Healthcare Power of State Inspector? No October 13, 2024 5:52pm Do you have a Healthcare Power of State Inspector? Yes January 19, 2025 4:13pm Advance Directives No June 11:49am Advance Directive Response Recorded Date/ Time Living Will No February 11, 2024 10:23pm Do you have a Healthcare Power of State Inspector? No February 11, 2024 10:23pm Living Will Yes November 29, 2023 8 :16pm Do you have a Healthcare Power of State Inspector? No November 29, 2023 8:16pm Do you have a Healthcare Power of State Inspector? No October 13, 2024 5:52pm Do you have a Healthcare Power of State Inspector? Yes January 19, 2025 4:13pm Do you have a Healthcare Power of State Inspector? No January 31, 2025 7:48pm Advance Directives [...] CONSULT TO PAIN MGT OFFICE/OUTPATIENT [facility] MDM 60-74 MINUTES Podlogar, Shavonne [employer] [address] [place] [address] Referral ID Status Reason Start Date Expiration Date Visits Requested Visits Authorized [id number] Authorized PCP Requested Referral 12/23/2022 12/23/2023 1 1 Specialty Diagnoses / Procedures Referred By Contac t Referred To Contact CT IMAGING Diagnoses Lung nodules Procedures CT CHEST WO IVCON DIAGNOSTIC COMPUTED TOMOGRAPHY THORAX W/O CNTRST Barrett Falk, [employer] [address] [place] [address] [place] [address] Referral ID Status Reason Start Date Expiration Date Visits Requested Visits Authorized [id number] Authorized Auto-Generat ed Referral 02/07/2023 03/08/2024 1 1 Referral ID Status Reason Start Date Expiration Date V isits Requested Visits Authorized [id number] Closed Auto-Generate d Referral 02/07/2023 03/08/2024 1 1 Specialty Diagnoses / Procedures Referred By Contac t Referred To Contact [facility] Diagnoses Benign paroxysmal positional vertigo of right ear Procedures CONSULT TO PHYSICAL THERAPY PHYSICAL THERAPY EVALUATION HIGH COMPLEX 45 MINS Tatiana Ronquillo MD [address] [place] [address] [facility] [place] [address] [place] [address] Referral ID Status Reason Start Date Expiration Date Visits Requested Visits Authorized [id number] Authorized Auto-Generat ed Referral 05/29/2023 05/28/2024 99 99 Specialty Diagnoses / Procedures Referred By Contac t Referred To Contact CT IMAGING Diagnoses Nausea Right lower quadrant abdominal pain Procedures CT ABD/PEL W IVCON CT ABD & PELVIS W/CONTRAST Sabine Crowley, [employer] [address] [place] [address] [place] [address] Referral ID Status Reason Start Date Expiration Date V isits Requested Visits Authorized [id number] Closed Auto-Generate d Referral 04/18/2024 05/18/2025 1 1 Additional Source Comments INFORMATION SOURCE (unrecogn ized section and content) DATE CREATED AUTHOR 03/08/2019 [facility] DATE CREATED AUTHOR AUTHOR'S ORGANIZ ATION 03/18/2023 [facility] DATE CREATED AUTHOR AUTHOR'S ORGANIZ ATION 04/21/2024 [facility] DATE CREATED AUTHOR AUTHOR'S ORGANIZ ATION 05/20/2024 [facility] DATE CREATED AUTHOR AUTHOR'S ORGANIZ ATION 02/15/2025 [facility] DATE CREATED AUTHOR AUTHOR'S ORGANIZ ATION 04/05/2025 [facility] Goals (unrecognized section and content) Goals may [...] or prosecute any alcohol or drug abuse patient.[facility] the event this information is protected by the Federal Confidentiality of Alcohol and Drug Abuse Patient Records regulations: The Federal rules restrict any use of the information to criminally investigate or prosecute any alcohol or drug abuse patient.[facility] Center[facility] the event this information is protected by the Federal Confidentiality of Alcohol and Drug Abuse Patient Records regulations: The Federal rules restrict any use of the information to criminally investigate or prosecute any alcohol or drug abuse patient.[facility] Center[facility] the event this information is protected by the Federal Confidentiality of Alcohol and Drug Abuse Patient Records regulations: The Federal rules restrict any use of the information to criminally investigate or prosecute any alcohol or drug abuse patient.[facility] Center[facility] the event this information is protected by the Federal Confidentiality of Alcohol and Drug Abuse Patient Records regulations: The Federal rules restrict any use of the information to criminally investigate or prosecute any alcohol or drug abuse patient.[facility] Center[facility] the event this information is protected by the Federal Confidentiality of Alcohol and Drug Abuse Patient Records regulations: The Federal rules restrict any use of the information to criminally investigate or prosecute any alcohol or drug abuse patient.[facility] Center[facility] the event this information is protected by the Federal Confidentiality of Alcohol and Drug Abuse Patient Records regulations: The Federal rules restrict any use of the information to criminally investigate or prosecute any alcohol or drug abuse patient.[facility] Center[facility] the event this information is protected by the Federal Confidentiality of Alcohol and Drug Abuse Patient Records regulations: The Federal rules restrict any use of the information to criminally investigate or prosecute any alcohol or drug abuse patient.[facility] Center[facility] the event this information is protected by the Federal Confidentiality of Alcohol and Drug Abuse Patient Records regulations: The Federal rules restrict any use of the information to criminally investigate or prosecute any alcohol or drug abuse patient.[facility] Center[facility] the event this information is protected by the Federal Confidentiality of Alcohol and Drug Abuse Patient Records regulations: The Federal rules restrict any use of the information to criminally investigate or prosecute any alcohol or drug abuse patient.[facility] CenterIn the event this information is protected by the Federal Confidentiality of Alcohol and Drug Abuse Patient Records regulations: The Federal rules restrict any use of the information to criminally investigate or prosecute any alcohol or drug abuse patient.[facility] CenterIn the event this information is protected by the Federal Confidentiality of Alcohol and Drug Abuse Patient Records regulations: The Federal rules restrict any use of the information to criminally investigate or prosecute any alcohol or drug abuse patient.[facility] CenterIn the event this information is protected by the Federal Confidentiality of Alcohol and Drug Abuse Patient Records regulations: The Federal rules restrict any use of the information to criminally investigate or prosecute any alcohol or drug abuse patient.[facility] CenterIn the event this information is protected by the Federal Confidentiality of Alcohol and Drug Abuse Patient Records regulations: The Federal rules restrict any use of the information to criminally investigate or prosecute any alcohol or drug abuse patient.[facility] CenterIn the event this information is protected by the Federal Confidentiality of Alcohol and Drug Abuse Patient Records regulations: The Federal rules restrict any use of the information to criminally investigate or prosecute any alcohol or drug abuse patient.[facility] CenterIn the event this information is protected by the Federal Confidentiality of Alcohol and Drug Abuse Patient Records regulations: The Federal rules restrict any use of the information to criminally investigate or prosecute any alcohol or drug abuse patient.[facility] CenterIn the event this information is protected by the Federal Confidentiality of Alcohol and Drug Abuse Patient Records regulations: The Federal rules restrict any use of the information to criminally investigate or prosecute any alcohol or drug abuse patient.[facility] CenterIn the event this information is protected by the Federal Confidentiality of Alcohol and Drug Abuse Patient Records regulations: The Federal rules restrict any use of the information to criminally investigate or prosecute any alcohol or drug abuse patient.[facility] CenterIn the event this information is protected by the Federal Confidentiality of Alcohol and Drug Abuse Patient Records regulations: The Federal rules restrict any use of the information to criminally investigate or prosecute any alcohol or drug abuse patient.[facility] CenterIn the event this information is protected by the Federal Confidentiality of Alcohol and Drug Abuse Patient Records regulations: The Federal rules restrict any use of the information to criminally investigate or prosecute any alcohol or drug abuse patient.[facility] CenterIn the event this information is protected by the Federal Confidentiality of Alcohol and Drug Abuse Patient Records regulations: The Federal rules restrict any use of the information to criminally investigate or prosecute any alcohol or drug abuse patient.[facility] CenterIn the event this information is protected by the Federal Confidentiality of Alcohol and Drug Abuse Patient Records regulations: The Federal rules restrict any use of the information to criminally investigate or prosecute any alcohol or drug abuse patient.[facility] CenterIn the event this information is protected by the Federal Confidentiality of Alcohol and Drug Abuse Patient Records regulations: The Federal rules restrict any use of the information to criminally investigate or prosecute any alcohol or drug abuse patient.[facility] CenterIn the event this information is protected by the Federal Confidentiality of Alcohol and Drug Abuse Patient Records regulations: The Federal rules restrict any use of the information to criminally investigate or prosecute any alcohol or drug abuse patient.[facility] CenterIn the event this information is protected by the Federal Confidentiality of Alcohol and Drug Abuse Patient Records regulations: The Federal rules restrict any use of the information to criminally investigate or prosecute any alcohol or drug abuse patient.[facility] CenterIn the event this information is protected by the Federal Confidentiality of Alcohol and Drug Abuse Patient Records regulations: The Federal rules restrict any use of the information to criminally investigate or prosecute any alcohol or drug abuse patient.[facility] CenterIn the event this information is protected by the Federal Confidentiality of Alcohol and Drug Abuse Patient Records regulations: The Federal rules restrict any use of the information to criminally investigate or prosecute any alcohol or drug abuse patient.[facility] CenterIn the event this information is protected by the Federal Confidentiality of Alcohol and Drug Abuse Patient Records regulations: The Federal rules restrict any use of the information to criminally investigate or prosecute any alcohol or drug abuse patient.[facility] CenterIn the event this information is protected by the Federal Confidentiality of Alcohol and Drug Abuse Patient Records regulations: The Federal rules restrict any use of the information to criminally investigate or prosecute any alcohol or drug abuse patient.[facility] CenterIn the event this information is protected by the Federal Confidentiality of Alcohol and Drug Abuse Patient Records regulations: The Federal rules restrict any use of the information to criminally investigate or prosecute any alcohol or drug abuse patient.[facility] CenterIn the event this information is protected by the Federal Confidentiality of Alcohol and Drug Abuse Patient Records regulations: The Federal rules restrict any use of the information to criminally investigate or prosecute any alcohol or drug abuse patient.[facility] CenterIn the event this information is protected by the Federal Confidentiality of Alcohol and Drug Abuse Patient Records regulations: The Federal rules restrict any use of the information to criminally investigate or prosecute any alcohol or drug abuse patient.[facility] CenterIn the event this information is protected by the Federal Confidentiality of Alcohol and Drug Abuse Patient Records regulations: The Federal rules restrict any use of the information to criminally investigate or prosecute any alcohol or drug abuse patient.[facility] CenterIn the event this information is protected by the Federal Confidentiality of Alcohol and Drug Abuse Patient Records regulations: The Federal rules restrict any use of the information to criminally investigate or prosecute any alcohol or drug abuse patient.[facility] CenterIn the event this information is protected by the Federal Confidentiality of Alcohol and Drug Abuse Patient Records regulations: The Federal rules restrict any use of the information to criminally investigate or prosecute any alcohol or drug abuse patient.[facility] CenterIn the event this information is protected by the Federal Confidentiality of Alcohol and Drug Abuse Patient Records regulations: The Federal rules restrict any use of the information to criminally investigate or prosecute any alcohol or drug abuse patient.[facility] CenterIn the event this information is protected by the Federal Confidentiality of Alcohol and Drug Abuse Patient Records regulations: The Federal rules restrict any use of the information to criminally investigate or prosecute any alcohol or drug abuse patient.[facility] CenterIn the event this information is protected by the Federal Confidentiality of Alcohol and Drug Abuse Patient Records regulations: The Federal rules restrict any use of the information to criminally investigate or prosecute any alcohol or drug abuse patient.[facility] CenterIn the event this information is protected by the Federal Confidentiality of Alcohol and Drug Abuse Patient Records regulations: The Federal rules restrict any use of the information to criminally investigate or prosecute any alcohol or drug abuse patient.[facility] CenterIn the event this information is protected by the Federal Confidentiality of Alcohol and Drug Abuse Patient Records regulations: The Federal rules restrict any use of the information to criminally investigate or prosecute any alcohol or drug abuse patient.[facility] CenterIn the event this information is protected by the Federal Confidentiality of Alcohol and Drug Abuse Patient Records regulations: The Federal rules restrict any use of the information to criminally investigate or prosecute any alcohol or drug abuse patient.[facility] CenterIn the event this information is protected by the Federal Confidentiality of Alcohol and Drug Abuse Patient Records regulations: The Federal rules restrict any use of the information to criminally investigate or prosecute any alcohol or drug abuse patient.[facility] CenterIn the event this information is protected by the Federal Confidentiality of Alcohol and Drug Abuse Patient Records regulations: The Federal rules restrict any use of the information to criminally investigate or prosecute any alcohol or drug abuse patient.[facility] CenterIn the event this information is protected by the Federal Confidentiality of Alcohol and Drug Abuse Patient Records regulations: The Federal rules restrict any use of the information to criminally investigate or prosecute any alcohol or drug abuse patient.[facility] CenterIn the event this information is protected by the Federal Confidentiality of Alcohol and Drug Abuse Patient Records regulations: The Federal rules restrict any use of the information to criminally investigate or prosecute any alcohol or drug abuse patient.[facility] CenterIn the event this information is protected by the Federal Confidentiality of Alcohol and Drug Abuse Patient Records regulations: The Federal rules restrict any use of the information to criminally investigate or prosecute any alcohol or drug abuse patient.[facility] CenterIn the event this information is protected by the Federal Confidentiality of Alcohol and Drug Abuse Patient Records regulations: The Federal rules restrict any use of the information to criminally investigate or prosecute any alcohol or drug abuse patient.[facility] CenterIn the event this information is protected by the Federal Confidentiality of Alcohol and Drug Abuse Patient Records regulations: The Federal rules restrict any use of the information to criminally investigate or prosecute any alcohol or drug abuse patient.[facility] CenterIn the event this information is protected by the Federal Confidentiality of Alcohol and Drug Abuse Patient Records regulations: The Federal rules restrict any use of the information to criminally investigate or prosecute any alcohol or drug abuse patient.[facility] CenterIn the event this information is protected by the Federal Confidentiality of Alcohol and Drug Abuse Patient Records regulations: The Federal rules restrict any use of the information to criminally investigate or prosecute any alcohol or drug abuse patient.[facility] CenterIn the event this information is protected by the Federal Confidentiality of Alcohol and Drug Abuse Patient Records regulations: The Federal rules restrict any use of the information to criminally investigate or prosecute any alcohol or drug abuse patient.[facility] CenterIn the event this information is protected by the Federal Confidentiality of Alcohol and Drug Abuse Patient Records regulations: The Federal rules restrict any use of the information to criminally investigate or prosecute any alcohol or drug abuse patient.[facility] CenterIn the event this information is protected by the Federal Confidentiality of Alcohol and Drug Abuse Patient Records regulations: The Federal rules restrict any use of the information to criminally investigate or prosecute any alcohol or drug abuse patient.[facility] CenterIn the event this information is protected by the Federal Confidentiality of Alcohol and Drug Abuse Patient Records regulations: The Federal rules restrict any use of the information to criminally investigate or prosecute any alcohol or drug abuse patient.[facility] CenterIn the event this information is protected by the Federal Confidentiality of Alcohol and Drug Abuse Patient Records regulations: The Federal rules restrict any use of the information to criminally investigate or prosecute any alcohol or drug abuse patient.[facility] CenterIn the event this information is protected by the Federal Confidentiality of Alcohol and Drug Abuse Patient Records regulations: The Federal rules restrict any use of the information to criminally investigate or prosecute any alcohol or drug abuse patient.[facility] CenterIn the event this information is protected by the Federal Confidentiality of Alcohol and Drug Abuse Patient Records regulations: The Federal rules restrict any use of the information to criminally investigate or prosecute any alcohol or drug abuse patient.[facility] CenterIn the event this information is protected by the Federal Confidentiality of Alcohol and Drug Abuse Patient Records regulations: The Federal rules restrict any use of the information to criminally investigate or prosecute any alcohol or drug abuse patient.[facility] CenterIn the event this information is protected by the Federal Confidentiality of Alcohol and Drug Abuse Patient Records regulations: The Federal rules restrict any use of the information to criminally investigate or prosecute any alcohol or drug abuse patient.[facility]In the event this information is protected by the Federal Confidentiality of Alcohol and Drug Abuse Patient Records regulations: The Federal rules restrict any use of the information to criminally investigate or prosecute any alcohol or drug abuse patient.[facility] CenterIn the event this information is protected by the Federal Confidentiality of Alcohol and Drug Abuse Patient Records regulations: The Federal rules restrict any use of the information to criminally investigate or prosecute any alcohol or drug abuse patient.[facility] CenterIn the event this information is protected by the Federal Confidentiality of Alcohol and Drug Abuse Patient Records regulations: The Federal rules restrict any use of the information to criminally investigate or prosecute any alcohol or drug abuse patient.[facility] CenterIn the event this information is protected by the Federal Confidentiality of Alcohol and Drug Abuse Patient Records regulations: The Federal rules restrict any use of the information to criminally investigate or prosecute any alcohol or drug abuse patient.[facility] CenterIn the event this information is protected by the Federal Confidentiality of Alcohol and Drug Abuse Patient Records regulations: The Federal rules restrict any use of the information to criminally investigate or prosecute any alcohol or drug abuse patient.[facility] CenterIn the event this information is protected by the Federal Confidentiality of Alcohol and Drug Abuse Patient Records regulations: The Federal rules restrict any use of the information to criminally investigate or prosecute any alcohol or drug abuse patient.[facility] CenterIn the event this information is protected by the Federal Confidentiality of Alcohol and Drug Abuse Patient Records regulations: The Federal rules restrict any use of the information to criminally investigate or prosecute any alcohol or drug abuse patient.[facility] CenterIn the event this information is protected by the Federal Confidentiality of Alcohol and Drug Abuse Patient Records regulations: The Federal rules restrict any use of the information to criminally investigate or prosecute any alcohol or drug abuse patient.[facility] CenterIn the event this information is protected by the Federal Confidentiality of Alcohol and Drug Abuse Patient Records regulations: The Federal rules restrict any use of the information to criminally investigate or prosecute any alcohol or drug abuse patient.[facility] CenterIn the event this information is protected by the Federal Confidentiality of Alcohol and Drug Abuse Patient Records regulations: The Federal rules restrict any use of the information to criminally investigate or prosecute any alcohol or drug abuse patient.[facility] CenterIn the event this information is protected by the Federal Confidentiality of Alcohol and Drug Abuse Patient Records regulations: The Federal rules restrict any use of the information to criminally investigate or prosecute any alcohol or drug abuse patient.[facility] CenterIn the event this information is protected by the Federal Confidentiality of Alcohol and Drug Abuse Patient Records regulations: The Federal rules restrict any use of the information to criminally investigate or prosecute any alcohol or drug abuse patient.[facility]In the event this information is protected by the Federal Confidentiality of Alcohol and Drug Abuse Patient Records regulations: The Federal rules restrict any use of the information to criminally investigate or prosecute any alcohol or drug abuse patient.[facility]In the event this information is protected by the Federal Confidentiality of Alcohol and Drug Abuse Patient Records regulations: The Federal rules restrict any use of the information to criminally investigate or prosecute any alcohol or drug abuse patient.[facility]In the event this information is protected by the Federal Confidentiality of Alcohol and Drug Abuse Patient Records regulations: The Federal rules restrict any use of the information to criminally investigate or prosecute any alcohol or drug abuse patient.[facility]In the event this information is protected by the Federal Confidentiality of Alcohol and Drug Abuse Patient Records regulations: The Federal rules restrict any use of the information to criminally investigate or prosecute any alcohol or drug abuse patient.[facility]In the event this information is protected by the Federal Confidentiality of Alcohol and Drug Abuse Patient Records regulations: The Federal rules restrict any use of the information to criminally investigate or prosecute any alcohol or drug abuse patient.[facility]In the event this information is protected by the Federal Confidentiality of Alcohol and Drug Abuse Patient Records regulations: The Federal rules restrict any use of the information to criminally investigate or prosecute any alcohol or drug abuse patient.[facility]In the event this information is protected by the Federal Confidentiality of Alcohol and Drug Abuse Patient Records regulations: The Federal rules restrict any use of the information to criminally investigate or prosecute any alcohol or drug abuse patient.[facility]In the event this information is protected by the Federal Confidentiality of Alcohol and Drug Abuse Patient Records regulations: The Federal rules restrict any use of the information to criminally investigate or prosecute any alcohol or drug abuse patient.[facility] CenterIn the event this information is protected by the Federal Confidentiality of Alcohol and Drug Abuse Patient Records regulations: The Federal rules restrict any use of the information to criminally investigate or prosecute any alcohol or drug abuse patient.[facility] CenterIn the event this information is protected by the Federal Confidentiality of Alcohol and Drug Abuse Patient Records regulations: The Federal rules restrict any use of the information to criminally investigate or prosecute any alcohol or drug abuse patient.[facility] CenterIn the event this information is protected by the Federal Confidentiality of Alcohol and Drug Abuse Patient Records regulations: The Federal rules restrict any use of the information to criminally investigate or prosecute any alcohol or drug abuse patient.[facility]In the event this information is protected by the Federal Confidentiality of Alcohol and Drug Abuse Patient Records regulations: The Federal rules restrict any use of the information to criminally investigate or prosecute any alcohol or drug abuse patient.[facility] CenterIn the event this information is protected by the Federal Confidentiality of Alcohol and Drug Abuse Patient Records regulations: The Federal rules restrict any use of the information to criminally investigate or prosecute any alcohol or drug abuse patient.[facility]In the event this information is protected by the Federal Confidentiality of Alcohol and Drug Abuse Patient Records regulations: The Federal rules restrict any use of the information to criminally investigate or prosecute any alcohol or drug abuse patient.[facility]In the event this information is protected by the Federal Confidentiality of Alcohol and Drug Abuse Patient Records regulations: The Federal rules restrict any use of the information to criminally investigate or prosecute any alcohol or drug abuse patient.[facility]In the event this information is protected by the Federal Confidentiality of Alcohol and Drug Abuse Patient Records regulations: The Federal rules restrict any use of the information to criminally investigate or prosecute any alcohol or drug abuse patient.[facility]In the event this information is protected by the Federal Confidentiality of Alcohol and Drug Abuse Patient Records regulations: The Federal rules restrict any use of the information to criminally investigate or prosecute any alcohol or drug abuse patient.[facility]In the event this information is protected by the Federal Confidentiality of Alcohol and Drug Abuse Patient Records regulations: The Federal rules restrict any use of the information to criminally investigate or prosecute any alcohol or drug abuse patient.[facility]In the event this information is protected by the Federal Confidentiality of Alcohol and Drug Abuse Patient Records regulations: The Federal rules restrict any use of the information to criminally investigate or prosecute any alcohol or drug abuse patient.[facility]In the event this information is protected by the Federal Confidentiality of Alcohol and Drug Abuse Patient Records regulations: The Federal rules restrict any use of the information to criminally investigate or prosecute any alcohol or drug abuse patient.[facility]In the event this information is protected by the Federal Confidentiality of Alcohol and Drug Abuse Patient Records regulations: The Federal rules restrict any use of the information to criminally investigate or prosecute any alcohol or drug abuse patient.[facility]In the event this information is protected by the Federal Confidentiality of Alcohol and Drug Abuse Patient Records regulations: The Federal rules restrict any use of the information to criminally investigate or prosecute any alcohol or drug abuse patient.[facility]In the event this information is protected by the Federal Confidentiality of Alcohol and Drug Abuse Patient Records regulations: The Federal rules restrict any use of the information to criminally investigate or prosecute any alcohol or drug abuse patient.[facility]In the event this information is protected by the Federal Confidentiality of Alcohol and Drug Abuse Patient Records regulations: The Federal rules restrict any use of the information to criminally investigate or prosecute any alcohol or drug abuse patient.[facility]In the event this information is protected by the Federal Confidentiality of Alcohol and Drug Abuse Patient Records regulations: The Federal rules restrict any use of the information to criminally investigate or prosecute any alcohol or drug abuse patient.[facility]In the event this information is protected by the Federal Confidentiality of Alcohol and Drug Abuse Patient Records regulations: The Federal rules restrict any use of the information to criminally investigate or prosecute any alcohol or drug abuse patient.[facility] CenterIn the event this information is protected by the Federal Confidentiality of Alcohol and Drug Abuse Patient Records regulations: The Federal rules restrict any use of the information to criminally investigate or prosecute any alcohol or drug abuse patient.[facility]In the event this information is protected by the Federal Confidentiality of Alcohol and Drug Abuse Patient Records regulations: The Federal rules restrict any use of the information to criminally investigate or prosecute any alcohol or drug abuse patient.[facility]In the event this information is protected by the Federal Confidentiality of Alcohol and Drug Abuse Patient Records regulations: The Federal rules restrict any use of the information to criminally investigate or prosecute any alcohol or drug abuse patient.[facility] CenterIn the event this information is protected by the Federal Confidentiality of Alcohol and Drug Abuse Patient Records regulations: The Federal rules restrict any use of the information to criminally investigate or prosecute any alcohol or drug abuse patient.[facility] Medical CenterIn the event this information is protected by the Federal Confidentiality of Alcohol and Drug Abuse Patient Records regulations: The Federal rules restrict any use of the information to criminally investigate or prosecute any alcohol or drug abuse patient.[facility] Center[facility] the event this information is protected by the Federal Confidentiality of Alcohol and Drug Abuse Patient Records regulations: The Federal rules restrict any use of the information to criminally investigate or prosecute any alcohol or drug abuse patient.[facility] CenterIn the event this information is protected by the Federal Confidentiality of Alcohol and Drug Abuse Patient Records regulations: The Federal rules restrict any use of the information to criminally investigate or prosecute any alcohol or drug abuse patient.[facility] CenterIn the event this information is protected by the Federal Confidentiality of Alcohol and Drug Abuse Patient Records regulations: The Federal rules restrict any use of the information to criminally investigate or prosecute any alcohol or drug abuse patient.[facility] CenterIn the event this information is protected by the Federal Confidentiality of Alcohol and Drug Abuse Patient Records regulations: The Federal rules restrict any use of the information to criminally investigate or prosecute any alcohol or drug abuse patient.[facility] CenterIn the event this information is protected by the Federal Confidentiality of Alcohol and Drug Abuse Patient Records regulations: The Federal rules restrict any use of the information to criminally investigate or prosecute any alcohol or drug abuse patient.[facility] CenterIn the event this information is protected by the Federal Confidentiality of Alcohol and Drug Abuse Patient Records regulations: The Federal rules restrict any use of the information to criminally investigate or prosecute any alcohol or drug abuse patient.[facility] Reason for Visit (unrecogniz ed section and content) Reason Comments PT Discharge Specialty Diagnoses / Procedures Referred By Contac t Referred To Contact Physical Therapy / PHYSICAL THERAPY Diagnoses Falls frequently [R29.6] Knee gives out, right [M25.361 Procedures EST RS PT GAIT Tatiana Ronquillo MD [address] [place] [address] Yamile Cordero PT Referral ID Status Reason Start Date Expiration Date V isits Requested Visits Authorized [id number] Authorized 05/29/2024 05/28/2025 99 99 Reason Comments Physical Therapy Reason Comments PT Eval Patient Education Specialty Diagnoses / Procedures Referred By Contac t Referred To Contact [facility] Diagnoses Benign paroxysmal positional vertigo of right ear Procedures CONSULT TO PHYSICAL THERAPY PHYSICAL THERAPY EVALUATION HIGH COMPLEX 45 MINS Tatiana Ronquillo MD [address] [place] [address] [facility] [place] [address] [place] [address] Referral ID Status Reason Start Date Expiration Date Visits Requested Visits Authorized [id number] Authorized Auto-Generat ed Referral 05/29/2023 05/28/2024 99 99 Reason Comments Results Reason Comments Refill Request Reason Comments New Patient Evaluation Specialty Diagnoses / Procedures Referred By France t Referred To Contact Plastic Surgery / PLASTIC SURGERY Diagnoses NEW painful indent/bruise/closed wound on her leg Procedures NEW DPSI MD Kayleigh Rivers, Jeff Field MD [address] [address] Referral ID Status Reason Start Date Expiration Date Visits Re quested Visits Authorized [id number] Closed 12/28/2021 05/28/2022 1 1 Reason Comments Follow Up Nail Avulsion Specialty Diagnoses / Procedures Referred By France t Referred To Contact Podiatry / PODIATRY Diagnoses [facility] follow up Procedures GREG EST PODI Lj De Santiago [address] [place] [address] Lj De Santiago [address] [place] [address] Referral ID Status Reason Start Date Expiration Date Visits Re quested Visits Authorized [id number] Closed 12/29/2021 05/28/2022 1 1 Reason Comments Post Op Reason Comments Other Reason Comments UTI Reason Comments Established Patient Follow-Up Reason Comments Results Reason Comments Established Patient Reason Comments Medication Problem Reason Comments Consult lung cancer screenin g Specialty Diagnoses / Procedures [facility] To Contact Diagnoses Encounter for screening for lung cancer Procedures CONSULT LUNG CANCER SCREENING CLINIC Tatiana Ronquillo MD [address] [place] [address] Referral ID Status Reason Start Date Expiration Date Visits Requested Visits Authorized [id number] Ref Not Required PCP Requested Referral 01/26/2023 04/26/2023 1 1 Reason Comments Results Medication Problem Reason Comments Results Reason Comments PT Eval Specialty Diagnoses / Procedures Referred By Contac t Referred To Contact [facility] Diagnoses Coccyodynia Lumbar spondylosis Procedures CONSULT TO PHYSICAL THERAPY PHYSICAL THERAPY EVALUATION HIGH COMPLEX 45 MINS Neal Guevara MD [address] [facility] [address] [place] [address] [facility] [place] [address] [place] [id number] Referral ID Status Reason Start Date Expiration Date Visits Requested Visits Authorized [id number] Pending Review Auto-Generat ed Referral 02/23/2023 02/23/2024 1 1 Reason Comments Medication Problem Fosamax Reason Onset Date Comments Refill Request 03/03/2023 Reason Comments Medication Question Reason Comments Medication Problem [facility] lo [facility]ked-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 to greens 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 Reason Onset Date Comments Refill Request 03/15/[address] Specialty Diagnoses / Procedures Referred By Contac t Referred To Contact CT IMAGING Diagnoses Lung nodules Procedures CT CHEST WO IVCON DIAGNOSTIC COMPUTED TOMOGRAPHY THORAX W/O CNTRST Barrett Falk, PARKING LOT SP[employer]TER.[employer] [address] [place] [address] Ct [facility] Referral ID Status Reason Start Date Expiration Date V isits Requested Visits Authorized [id number] Closed Auto-Generate d Referral 02/07/2023 03/08/2024 1 1 Reason Onset Date Comments Refill Request 05/12/2023 Reason Comments Radiology US Specialty Diagnoses / Procedures Referred By Contac t Referred To Contact US IMAGING Diagnoses Stage 3a chronic kidney disease (HCC) Procedures US KIDNEY/BLADDER US RETROPERITONEAL REAL TIME W/IMAGE COMPLETE Tatiana Ronquillo MD [address] [place] [address] [place] [address] Referral ID Status Reason Start Date Expiration Date V isits Requested Visits Authorized [id number] Closed Auto-Generate d Referral 07/28/2023 08/26/2024 1 1 Reason Comments Balance Reason Comments Consult BRBPR Specialty Diagnoses / Procedures Referred By Contac t Referred To Contact General Surgery Diagnoses Screening for colon cancer History of colonic polyps Procedures CONSULT TO GENERAL SURGERY OFFICE/OUTPATIENT NEW HIGH MDM 60 MINUTES Tatiana Ronquillo MD [address] [place] [address] Referral ID Status Reason Start Date Expiration Date V isits Requested Visits Authorized [id number] Closed PCP Requested Referral 07/27/2023 07/26/2024 1 [...] Date Comments Population Health Navigation Outreach 01/24/2024 [facility] Reason Onset Date Comments [...] CT ABD & PELVIS W/CONTRAST Sabine Crowley, PARKING [employer] [address] [place] [address] [place] [address] Referral ID Status Reason Start Date Expiration Date V isits Requested Visits Authorized [id number] Closed Auto-Generate d Referral 04/18/2024 05/18/2025 1 1 Reason Comments Orders Specialty Diagnoses / Procedures Referred By Contac t Referred To Contact US IMAGING Diagnoses Right lower quadrant abdominal mass Procedures US EXTREMITY MASS/FLUID COLLECTION RIGHT Sabine Crowley, PARKING [employer] SP[employer]TER[employer] [address] [place] [address] [place] [address] Referral ID Status Reason Start Date Expiration Date V isits Requested Visits Authorized [id number] Closed Auto-Generate d Referral 04/18/2024 05/18/2025 1 1 Reason Comments Fall Reason Onset Date Comments Population Health Navigation Outreach 05/08/2024 [facility] Reason Comments Follow Up Routine-patient [...] Refill Request 07/30/2024 Reason Comments ED Follow-up [facility] 07/30/2024 for abd ominal pain Reason Comments Radiology NM Specialty Diagnoses / Procedures Referred By Contac t Referred To Contact MOLECULAR [facility] FUNCTIONAL IMAGING Diagnoses Nausea RUQ pain Procedures NM HEPATOBILIARY W EF AND/OR RX HEPATOBIL SYST IMAG INC GB W/PHARMA INTERVENJ PodShavonne archibald, PARKING LOT SPOTTER[employer]ODUCTION [address] [place] [address] Phone: tel: fax: [facility] [address] [place] [address] Phone: tel: Referral ID Status Reason Start Date Expiration Date V isits Requested Visits Authorized [id number] Closed Auto-Generate d Referral 08/06/2024 09/05/2025 1 [...] Care Teams (unrecognized sec tion and content) Environmental Air Specialist Relationship Specialty Start Date End Date Clinic, Danae Cobb [address] [place] [address] PCP - General 11/18/20 Jovanni Garcia [address] [facility] [place] [address] Physician Ent - Otolaryngology 02/26/21 Environmental Air Specialist Relationship Specialty Start Date End Date Clinic, Danae Cobb [address] [place] [address] PCP - General 11/18/20 Jovanni Garcia [address] [facility] [place] [address] Physician Ent - Otolaryngology 02/26/21 Environmental Air Specialist Relationship Specialty Start Date End Date Clinic, Danae Cobb [address] [place] [address] PCP - General 11/18/20 Jovanni Garcia [address] [facility] [place] [address] Physician Ent - Otolaryngology 02/26/21 Environmental Air Specialist Relationship Specialty Start Date End Date Clinic, Danae Cobb [address] [place] [address] PCP - General 11/18/20 Jovanni Garcia [address] [facility] [place] [address] Physician Ent - Otolaryngology 02/26/21 Environmental Air Specialist Relationship Specialty Start Date End Date Clinic, Danae Cobb [address] [place] [address] PCP - General 11/18/20 Jovanni Garcia [address] [facility] [place] [address] Physician Ent - Otolaryngology 02/26/21 Environmental Air Specialist Relationship Specialty Start Date End Date Clinic, Danae Cobb [address] [place] [address] PCP - General 11/18/20 Jovanni Garcia [address] [place] [phone] Physician Ent - Otolaryngology 02/26/21 Environmental Air Specialist Relationship Specialty Start Date End Date Clinic, [facility] [address] [place] [address] PCP - General 11/18/20 Jovanni Garcia [address] [place] [address] Physician Ent - Otolaryngology 02/26/21 Team Status: Active Member Role Status Dates [facility] Family Provider Active [facility] Primary Care Provider A ctive Team Status: Inactive Member Role Status [facility] Primary Care Provider, Referring Provider Active Robin Fernandez STONE LATHE OPERATOR, STONE LATHE OPERATOR-C Attending Provider Active Team Status: Active Member Role Status Dates [facility] Primary Care Provider A ctive Dr. Cole Bran MD Attending Provider Active Team Status: Active Member Role Status Dates [facility] Primary Care Provider A ctive Dr. Eduardo Ely DO Emergency Provider Active Dr. Rupal Gannon MD Admit Provider, Other Provider Active Dr. Lashawn Ellington MD Attending Provider, Other Provid er Active Team Status: Inactive Member Role Status [facility] Primary Care Provider, Referring Provider Active Dr. Ramesh Sanabria MD Attending Provider Active Team Status: Active Member Role Status Dates [facility] Primary Care Provider A ctive Dr. Marsha Vaughn MD Attending Provider, Refe rring Provider Active Team Status: Active Member Role Status Dates [facility] Primary Care Provider A ctive Laura Lacey Attending Provider Active Team Status: Inactive Member Role Status Dates [facility] Primary Care Provider A ctive Dr. Rl Britt MD Attending Provider, Emergency Provider Active Team Status: Inactive Member Role Status Dates [facility] Primary Care Provider, Attending Provider Active Team Status: Inactive Member Role Status Dates [facility] Primary Care Provider A ctive Yamile Loco STONE LATHE OPERATOR, STONE LATHE OPERATOR-C Attending Provider Active Team Status: Inactive Member Role Status [facility] Primary Care Provider A ctive Dr. Eduardo Ely DO Emergency Provider Active Dr. Rupal Gannon MD Admit Provider, Other Provider Active Dr. Lashawn Ellington MD Attending Provider Active Team Status: Active Member Role Status [facility] Primary Care Provider A ctive Dr. Cole Bran MD Attending Provider, Referring Provider Active Team Status: Inactive Member Role Status [facility] Primary Care Provider A ctive Dr. Eduardo Ely DO Attending Provider, Emergency Provider Active Team Status: Inactive Member Role Status [facility] Primary Care Provider A ctive Dr. Ramesh Sanabria MD Attending Provider, Referring Pro vider Active Team Status: Active Member Role Status [facility] Primary Care Provider A ctive Yamile Adan STONE LATHE OPERATOR, STONE LATHE OPERATOR-C Attending Provider, Referrin g Provider Active Team Status: Inactive Member Role Status [facility] Primary Care Provider A ctmatias Jackson MD Emergency Provider Active Team Status: Inactive Member Role Status [facility] Primary Care Provider, Referring Provider Active Giuseppe Mireles MD Attending Provider Active Team Status: Inactive Member Role Status [facility] Primary Care Provider A ctive Yamile Adan STONE LATHE OPERATOR, STONE LATHE OPERATOR-C Attending Provider, Referrin g Provider Active Team Status: Inactive Member Role Status [facility] Primary Care Provider A ctmatias Jackson MD Attending Provider, Emergency Provid er Active Team Status: Inactive Member Role Status [facility] Primary Care Provider A ctmatias Mireles MD Attending Provider, Referring Prov ider Active Team Status: Inactive Member Role Status [facility] Primary Care Provider A ctive Dr. Lili Roque MD Emergency Provider Active Team Status: Active Member Role Status [facility] Family Provider Active Dr. Bird Ronquillo MD Primary Care Provider Acti ve Team Status: Inactive Member Role Status [facility] Primary Care Provider, Referring Provider Active Dr. Arslan Love MD Attending Provider Active Team Status: Inactive Member Role Status [facility] Primary Care Provider, Referring Provider Active Laura Coulter PA, PA Attending Provider Active Team Status: Inactive Member Role Status Dates [facility] Primary Care Provider A ctive [...] Dr. Kunal Bray , Emergency Provider Active Environmental Air Specialist Relationship Specialty Start Date End Date Clinic, [facility] [address] [place] [address] PCP - General 11/18/20 Jovanni Garcia [address] [facility] [place] [address] Physician Ent - Otolaryngology 02/26/21 Environmental Air Specialist Relationship Specialty Start Date End Date [facility], [facility] [address] [place] [address] PCP - General 11/18/20 Jovanni Garcia [address] [facility] [place] [phone] Physician Ent - Otolaryngology 02/26/21 Team Status: [...] ve Naif Jackson MD Emergency Provider Active Environmental Air Specialist Relationship Specialty Start Date End Date Clinic, [facility] [address] [place] [address] PCP - General 11/18/20 Jovanni Garcia [address] [facility] [place] [address] Physician Ent - Otolaryngology 02/26/21 Environmental Air Specialist Relationship Specialty Start Date End Date Clinic, Danae Cobb [address] [place] [address] PCP - General 11/18/20 Jovanni Garcia [address] [facility] [place] [address] Physician Ent - Otolaryngology 02/26/21 Environmental Air Specialist Relationship Specialty Start Date End Date [facility], Danae Cobb [address] [place] [address] PCP - General 11/18/20 Jovanni Garcia [address] [place] [address] Physician Ent - Otolaryngology 02/26/21 Environmental Air Specialist Relationship Specialty Start Date End Date Tatiana Ronquillo MD [address] [facility] [place] [address] PCP - General Family Medicine 01/26/23 Jovanni Garcia [address] [facility] [place] [address] Physician Ent - Otolaryngology 02/26/21 Environmental Air Specialist Relationship Specialty Start Date End Date Tatiana Ronquillo MD [address] [facility] [place] [address] PCP - General Family Medicine 01/26/23 Jovanni Garcia [address] [facility] [place] [address] Physician Ent - Otolaryngology 02/26/21 Environmental Air Specialist Relationship Specialty Start Date End Date Tatiana Ronquillo MD [address] [facility] [place], [place] [address] PCP - General Family Medicine 01/26/23 Jovanni Garcia [address] [facility] [place] [address] Physician Ent - Otolaryngology 02/26/21 Environmental Air Specialist Relationship Specialty Start Date End Date Tatiana Ronquillo MD [address] [place], [place] [address] [phone] PCP - General Family Medicine 01/26/23 Jovanni Garcia [address] [facility] [place] [phone] Physician Ent - Otolaryngology 02/26/21 Environmental Air Specialist Relationship Specialty Start Date End Date Tatiana Ronquillo MD [address] [facility] [place], [place] [address]81 PCP - General Family Medicine 01/26/23 Jovanni Garcia [address] [facility] [place] [phone] Physician Ent - Otolaryngology 02/26/21 Environmental Air Specialist Relationship Specialty Start Date End Date Tatiana Ronquillo MD [address] [facility] [place], [place] [address]40 [phone] PCP - General Family Medicine 01/26/23 Jovanni Garcia [address] [facility] [place] [phone] Physician Ent - Otolaryngology 02/26/21 Environmental Air Specialist Relationship Specialty Start Date End Date Tatiana Ronquillo MD [address] [place], [place] [address]3761 PCP - General Family Medicine 01/26/23 Jovanni Garcia [address] [place] [phone] Physician Ent - Otolaryngology 02/26/21 Team Status: Inactive Member Role Status Dates [facility] Referring Provider Acti ve Robin Fernandez STONE LATHE OPERATOR, STONE LATHE OPERATOR-C Attending Provider Active Dr. Bird Ronquillo MD Primary Care Provider Acti ve Team Status: Inactive Member Role Status Dates Dr. Bird Ronquillo MD Primary Care Provider Acti ve Naif Jackson MD Attending Provider, Emergency Provid er Active Team Status: Inactive Member Role Status Dates Dr. Bird Ronquillo MD Primary Care Provider Acti ve Dr. Eduardo Ely DO Emergency Provider Active Environmental Air Specialist Relationship Specialty Start Date End Date Tatiana Ronquillo MD [address] [place], [place] [address]248[address] PCP - General Family Medicine 01/26/23 Jovanni Garcia [address] [place] [phone] Physician Ent - Otolaryngology 02/26/21 Environmental Air Specialist Relationship Specialty Start Date End Date Tatiana Ronquillo MD [address] [place], [place] [id number] PCP - General Family Medicine 01/26/23 Jovanni Garcia [address] [place] [phone] Physician Ent - Otolaryngology 02/26/21 Environmental Air Specialist Relationship Specialty Start Date End Date Tatiana Ronquillo MD [address] [place], [place] [address] PCP - General Family Medicine 01/26/23 Jovanni Garcia [address] [place] [phone] Physician Ent - Otolaryngology 02/26/21 Environmental Air Specialist Relationship Specialty Start Date End Date Tatiana Ronquillo MD [address] [place], [place] [address]001 PCP - General Family Medicine 01/26/23 Jovanni Garcia [address] [place] [phone] Physician Ent - Otolaryngology 02/26/21 Environmental Air Specialist Relationship Specialty Start Date End Date Tatiana Ronquillo MD [address] [place], [place] [address]6951 PCP - General Family Medicine 01/26/23 Jovanni Garcia [address] [place] [phone] Physician Ent - Otolaryngology 02/26/21 Environmental Air Specialist Relationship Specialty Start Date End Date Tatiana Ronquillo MD [address] [place], [place] [phone] PCP - General Family Medicine 01/26/23 Jovanni Garcia [address] [place] [phone] Physician Ent - Otolaryngology 02/26/21 Environmental Air Specialist Relationship Specialty Start Date End Date Tatiana Ronquillo MD [address] [facility] [place], [place] [address]871 PCP - General Family Medicine 01/26/23 Jovanni Garcia [address] [facility] [place] [phone] Physician Ent - Otolaryngology 02/26/21 Environmental Air Specialist Relationship Specialty Start Date End Date Tatiana Ronquillo MD [address] [facility] [place], [place] 831093 [phone] PCP - General Family Medicine 01/26/23 Jovanni Garcia [address] [facility] [place] [phone] Physician Ent - Otolaryngology 02/26/21 Team Status: Inactive Member Role Status Dates Dr. Bird Ronquillo MD Primary Care Provider, Ref erring Provider Active Dr. Arslan Love MD Attending Provider Active Environmental Air Specialist Relationship Specialty Start Date End Date Tatiana Ronquillo MD [address] [facility] [place] [address] PCP - General Family Medicine 01/26/23 Jovanni Garcia [address] [facility] [place] [phone] Physician Ent - Otolaryngology 02/26/21 Environmental Air Specialist Relationship Specialty Start Date End Date Tatiana Ronquillo MD [address] [facility] [place], [place] 304941 PCP - General Family Medicine 01/26/23 Jovanni Garcia [address] [facility] [place] [phone] Physician Ent - Otolaryngology 02/26/21 Environmental Air Specialist Relationship Specialty Start Date End Date Tatiana Ronquillo MD [address] [facility] [place], [place] [address] PCP - General Family Medicine 01/26/23 Jovanni Garcia [address] [place] [address] Physician Ent - Otolaryngology 02/26/21 Environmental Air Specialist Relationship Specialty Start Date End Date Tatiana Ronquillo MD [address] [place], [place] [address] PCP - General Family Medicine 01/26/23 Jovanni Garcia [address] [place] [address] Physician Ent - Otolaryngology 02/26/21 Team Status: Inactive Member Role Status Dates Dr. Bird Ronquillo MD Primary Care Provider Acti ve Dr. Eduardo Ely DO Attending Provider, Emergency Provider Active Team Status: Inactive Member Role Status Dates Dr. Bird Ronquillo MD Primary Care Provider Acti ve Dr. Rl Britt MD Emergency Provider Active Environmental Air Specialist Relationship Specialty Start Date End Date Tatiana Ronquillo MD [address] [facility] [place], [place] [phone] PCP - General Family Medicine 01/26/23 Jovanni Garcia [address] [place] [phone] Physician Ent - Otolaryngology 02/26/21 Environmental Air Specialist Relationship Specialty Start Date End Date Tatiana Ronquillo MD [address] [place] [address] PCP - General Family Medicine 01/26/23 Jovanni Garcia [address] [place] [phone] Physician Ent - Otolaryngology 02/26/21 Environmental Air Specialist Relationship Specialty Start Date End Date Tatiana Ronquillo MD [address] [place] [address] PCP - General Family Medicine 01/26/23 Jovanni Garcia [address] [place] [phone] Physician Ent - Otolaryngology 02/26/21 Environmental Air Specialist Relationship Specialty Start Date End Date Tatiana Ronquillo MD [address] [place] [address] PCP - General Family Medicine 01/26/23 Jovanni Garcia [address] [place] [phone] Physician Ent - Otolaryngology 02/26/21 Environmental Air Specialist Relationship Specialty Start Date End Date Tatiana Ronquillo MD [address] [place] [address] PCP - General Family Medicine 01/26/23 Jovanni Garcia [address] [place] [phone] Physician Ent - Otolaryngology 02/26/21 Environmental Air Specialist Relationship Specialty Start Date End Date Tatiana Ronquillo MD [address] [facility] [place] [address] PCP - General Family Medicine 01/26/23 Jovanni Garcia [address] [facility] [place] [phone] Physician Ent - Otolaryngology 02/26/21 Environmental Air Specialist Relationship Specialty Start Date End Date Danae Manrique PCP - General 11/18/20 01/25/23 Jovanni Garcia [address] [facility] [place] [phone] Physician Ent - Otolaryngology 02/26/21 Environmental Air Specialist Relationship Specialty Start Date End Date Tatiana Ronquillo MD [address] [facility] [place], [place] [address] PCP - General Family Medicine 01/26/23 Jovanni Garcia [address] [facility] [place] [phone] Physician Ent - Otolaryngology 02/26/21 Environmental Air Specialist Relationship Specialty Start Date End Date Tatiana Ronquillo MD [address] [facility] [place], [place] [address] PCP - General Family Medicine 01/26/23 Jovanni Garcia [address] [facility] [place] [phone] Physician Ent - Otolaryngology 02/26/21 Environmental Air Specialist Relationship Specialty Start Date End Date Tatiana Ronquillo MD [address] [place], [place] [address]01 PCP - General Family Medicine 01/26/23 Jovanni Garcia [address] [place] [phone] Physician Ent - Otolaryngology 02/26/21 Environmental Air Specialist Relationship Specialty Start Date End Date Tatiana Ronquillo MD [address] [place], [place] [address]71 PCP - General Family Medicine 01/26/23 Jovanni Garcia [address] [place] [phone] Physician Ent - Otolaryngology 02/26/21 Environmental Air Specialist Relationship Specialty Start Date End Date Tatiana Ronquillo MD [address] [place], [place] 855541 PCP - General Family Medicine 01/26/23 Jovanni Garcia [address] [place] [phone] Physician Ent - Otolaryngology 02/26/21 Environmental Air Specialist Relationship Specialty Start Date End Date Tatiana Ronquillo MD [address] [place], [place] [phone] PCP - General Family Medicine 01/26/23 Jovanni Garcia [address] [place] [phone] Physician Ent - Otolaryngology 02/26/21 Environmental Air Specialist Relationship Specialty Start Date End Date Tatiana Ronquillo MD [address] [place] [address] PCP - General Family Medicine 01/26/23 Jovanni Garcia [address] [place] [phone] Physician Ent - Otolaryngology 02/26/21 Environmental Air Specialist Relationship Specialty Start Date End Date Tatiana Ronquillo MD [address] [place] [address] PCP - General Family Medicine 01/26/23 Jovanni Garcia [address] [place] [phone] Physician Ent - Otolaryngology 02/26/21 Environmental Air Specialist Relationship Specialty Start Date End Date Tatiana Ronquillo MD [address] [place] [address] PCP - General Family Medicine 01/26/23 Jovanni Garcia [address] [place] [address] Physician Ent - Otolaryngology 02/26/21 Environmental Air Specialist Relationship Specialty Start Date End Date Tatiana Ronquillo MD [address] [place] [address] PCP - General Family Medicine 01/26/23 Jovanni Garcia [address] [place] [address] Physician Ent - Otolaryngology 02/26/21 Environmental Air Specialist Relationship Specialty Start Date End Date Tatiana Ronquillo MD [address] [place] [address] PCP - General Family Medicine 01/26/23 Jovanni Garcia [address] [place] [phone] Physician Ent - Otolaryngology 02/26/21 Environmental Air Specialist Relationship Specialty Start Date End Date Tatiana Ronquillo MD [address] [place] [address] PCP - General Family Medicine 01/26/23 Jovanni Garcia [address] [place] [phone] Physician Ent - Otolaryngology 02/26/21 Environmental Air Specialist Relationship Specialty Start Date End Date Tatiana Ronquillo MD [address] [place], [place] [address]101 PCP - General Family Medicine 01/26/23 Jovanni Garcia [address] [place] [phone] Physician Ent - Otolaryngology 02/26/21 Environmental Air Specialist Relationship Specialty Start Date End Date Tatiana Ronquillo MD [address] [place], [place] [phone] PCP - General Family Medicine 01/26/23 Jovanni Garcia [address] [place] [phone] Physician Ent - Otolaryngology 02/26/21 Environmental Air Specialist Relationship Specialty Start Date End Date Tatiana Ronquillo MD [address] [place] [address] PCP - General Family Medicine 01/26/23 Jovanni Garcia [address] [place] [phone] Physician Ent - Otolaryngology 02/26/21 PodlogarShavonne APRN.BOW MAKER PRODUCTION [address] [place] [address] Patrol Sergeant Family Medicine 05/04/24 Environmental Air Specialist Relationship Specialty Start Date End Date Tatiana Ronquillo MD [address] [place] [address] PCP - General Family Medicine 01/26/23 Jovanni Garcia [address] [place] [address] Physician Ent - Otolaryngology 02/26/21 PodlogarShavonne APRN.BOW MAKER PRODUCTION [address] [place] [address] Patrol Sergeant Family Medicine 05/04/24 Environmental Air Specialist Relationship Specialty Start Date End Date Tatiana Ronquillo MD [address] [place] [address] PCP - General Family Medicine 01/26/23 Jovanni Garcia [address] [place] [address] Physician Ent - Otolaryngology 02/26/21 PodlogarShavonne APRN.BOW MAKER PRODUCTION [address] [place] [address] Patrol Sergeant Family Medicine 05/04/24 Environmental Air Specialist Relationship Specialty Start Date End Date Tatiana Ronquillo MD [address] [place] [address] PCP - General Family Medicine 01/26/23 Jovanni Garcia [address] [place] [address] Physician Ent - Otolaryngology 02/26/21 PodlogarShavonne APRN.BOW MAKER [employer]ODUCTION [address] [place] [address] Patrol Sergeant Family Medicine 05/04/24 Environmental Air Specialist Relationship Specialty Start Date End Date Tatiana Ronquillo MD [address] [place] [address] PCP - General Family Medicine 01/26/23 Jovanni Garcia [address] [place] [address] Physician Ent - Otolaryngology 02/26/21 Podlogar, ROSALINA Marvin.BOW MAKER PRODUCTION [address] [place] [address] Patrol Sergeant Family Medicine 05/04/24 Environmental Air Specialist Relationship Specialty Start Date End Date Tatiana Ronquillo MD [address] [place] [address] PCP - General Family Medicine 01/26/23 Jovanni Garcia [address] [place] [phone] Physician Ent - Otolaryngology 02/26/21 Podlogar, ROSALINA Marvin.BOW MAKER PRODUCTION [address] [place] [address] Patrol Sergeant Family [facility] 05/04/24 Environmental Air Specialist Relationship Specialty Start Date End Date Tatiana Ronquillo MD [address] [place] [address] PCP - General Family Medicine 01/26/23 Jovanni Garcia [address] [place] [phone] Physician Ent - Otolaryngology 02/26/21 PodlogarShavonne APRN.BOW MAKER PRODUCTION [address] [place] [address] Patrol Sergeant [facility] 05/04/24 Environmental Air Specialist Relationship Specialty Start Date End Date Tatiana Ronquillo MD [address] [place], [place] 912803 [phone] PCP - General Family Medicine 01/26/23 Jovanni Garcia [address] [place] [phone] Physician Ent - Otolaryngology 02/26/21 PodlogarShavonne APRN.BOW MAKER PRODUCTION [address] [place], [place] [address]60411 Patrol Sergeant Family Medicine 05/04/24 Environmental Air Specialist Relationship Specialty Start Date End Date Tatiana Ronquillo MD [address] [place] [address] PCP - General Family Medicine 01/26/23 Jovanni Garcia [address] [place] [phone] Physician Ent - Otolaryngology 02/26/21 PodlogarShavonne APRN.BOW MAKER PRODUCTION [address] [place] [address] Patrol Sergeant Family Medicine 05/04/24 Environmental Air Specialist Relationship Specialty Start Date End Date Tatiana Ronquillo MD [address] [place] [address] PCP - General Family Medicine 01/26/23 Jovanni Garcia [address] [place] [phone] Physician Ent - Otolaryngology 02/26/21 PodlogarShavonne APRN.BOW MAKER PRODUCTION [address] [place] [address] Patrol Sergeant Family [facility] 05/04/24 Environmental Air Specialist Relationship Specialty Start Date End Date Tatiana Ronquillo MD [address] [place] [address] PCP - General Family Medicine 01/26/23 Jovanni Garcia [address] [place] [phone] Physician Ent - Otolaryngology 02/26/21 Podlogar, ROSALINA Marvin.BOW MAKER PRODUCTION [address] [facility] [place] [address] [facility] 05/04/24 Environmental Air Specialist Relationship Specialty Start Date End Date Tatiana Ronquillo MD [address] [facility] [place] [address] PCP - General Family Medicine 01/26/23 Jovanni Garcia [address] [place] [phone] Physician Ent - Otolaryngology 02/26/21 PodlogarShavonne APRN.BOW MAKER PRODUCTION [address] [place] [address] [facility] 05/04/24 Environmental Air Specialist Relationship Specialty Start Date End Date Tatiana Ronquillo MD [address] [facility] [place] [address] PCP - General Family Medicine 01/26/23 Jovanni Garcia [address] [place] [phone] Physician Ent - Otolaryngology 02/26/21 Podlogar, Shavonne PARKING LOT SPOTTER.BOW MAKER PRODUCTION [address] [facility] [place] [address] Patrol Sergeant Family [facility] 05/04/24 Sabine Crowley APRN.BOW MAKER PRODUCTION [address] [place], [place] 665351 [facility] 08/09/24 Environmental Air Specialist Relationship Specialty Start Date End Date Tatiana Ronquillo MD [address] [place], [place] 165771 PCP - General Family Medicine 01/26/23 Jovanni Garcia [address] [place] [phone] Physician Ent - Otolaryngology 02/26/21 PodlogarShavonne APRN.BOW MAKER PRODUCTION [address] [place], [place] 390231 [facility] 05/04/24 Sabine Crowley PARKING LOT SPOTTER.BOW MAKER PRODUCTION [address] [place], [place] [address] [facility] 08/09/24 Environmental Air Specialist Relationship Specialty Start Date End Date Tatiana Ronquillo MD [address] [place], [place] [phone] PCP - General Family Medicine 01/26/23 Jovanni Garcia [address] [place] [phone] Physician Ent - Otolaryngology 02/26/21 Podlogar, Shavonne PARKING LOT SPOTTER.BOW MAKER PRODUCTION [address] [place], [place] [address]74 [phone] [facility] 05/04/24 Sabine Crowley APRN.BOW MAKER PRODUCTION [address] [place], [place] [phone] [facility] 08/09/24 08/18/24 Sabine Crowley PARKING LOT SPOTTER.BOW MAKER PRODUCTION [address] [place], [place] [address]75[address] [facility] 08/19/24 Environmental Air Specialist Relationship Specialty Start Date End Date Tatiana Ronquillo MD [address] [place], [place] [address]491 PCP - General Family Medicine 01/26/23 Jovanni Garcia [address] [place] [phone] Physician Ent - Otolaryngology 02/26/21 PodShavonne archibald APRN.BOW MAKER PRODUCTION [address] [place] [address] [facility] Medicine 05/04/24 Sabine Crowley PARKING LOT SPOTTER.BOW MAKER PRODUCTION [address] [place], [place] [address]24[address] [facility] Medicine 08/09/24 08/18/24 Sabine Crowley, PARKING LOT SPOTTER.BOW MAKER PRODUCTION [address] [place], [place] [address] [facility] Medicine 08/19/24 Environmental Air Specialist Relationship Specialty Start Date End Date Tatiana Ronquillo MD [address] [place], [place] [address] PCP - General Family Medicine 01/26/23 Jovanni Garcia [address] [place] [phone] Physician Ent - Otolaryngology 02/26/21 PodlogShavonne johnston APRN.BOW MAKER PRODUCTION [address] [place] [address] [facility] 05/04/24 Sabine Crowley, PARKING LOT SPOTTER.BOW MAKER PRODUCTION [address] [place] [address] [facility] 08/19/24 Team Status: Active Member Role Status Dates Dr. Bird Ronquillo MD Primary Care Provider Acti ve Team Status: Inactive Member Role Status Dates Dr. Bird Ronquillo MD Primary Care Provider Acti ve Start: July 19, 2024 End: July 19, 2024 Dr. Colin Cbaa DO Attending Provider Activ e Start: July [...] October 13, 2024 End: October 13, 2024 Environmental Air Specialist Relationship Specialty Start Date End Date Tatiana Ronquillo MD [address] [facility] [place], [place] [address] PCP - General Family Medicine 01/26/23 Jovanni Garcia [address] [place] [phone] Physician Ent - Otolaryngology 02/26/21 PodlogShavonne johnston APRN.BOW MAKER PRODUCTION [address] [place] [address] [facility] 05/04/24 Sabine Crowley APRN.BOW MAKER PRODUCTION [address] [place] [address] [facility] 08/09/24 08/18/24 Sabine Crowley APRN.BOW MAKER PRODUCTION [address] [place], [place] [address] [facility] 08/19/24 10/13/24 Environmental Air Specialist Relationship Specialty Start Date End Date Tatiana Ronquillo MD [address] [place], [place] [address]781 PCP - General Family Medicine 01/26/23 Jovanni Garcia [address] [place] [phone] Physician Ent - Otolaryngology 02/26/21 PodlogShavonne johnston APRN.BOW MAKER PRODUCTION [address] [place] [address] [facility] 05/04/24 Team Status: Inactive Member Role [...] 2024 End: November 18, 2024 Robin Fernandez STONE LATHE OPERATOR, STONE LATHE OPERATOR-C Attending Provider Active Start: November 18, 2024 End: November 18, 2024 Robin Fernandez STONE LATHE OPERATOR, STONE LATHE OPERATOR-C Referring Provider Active Start: November 18, 2024 End: November 18, 2024 Environmental Air Specialist Relationship Specialty Start Date End Date Tatiana Ronquillo MD [address] [place], [place] [address] PCP - General Family Medicine 01/26/23 Jovanni Garcia [address] [place] [phone] Physician Ent - Otolaryngology 02/26/21 Shavonne Donato APRN.BOW MAKER PRODUCTION [address] [place], [place] [address] [facility] Family Medicine 05/04/24 Sabine Crowley PARKING LOT SPOTTER.BOW MAKER PRODUCTION [address] [place], [place] [address] [facility] Family Medicine 11/07/24 Team Status: Active Member [...] 2024 End: November 18, 2024 Robin Fernandez STONE LATHE OPERATOR, STONE LATHE OPERATOR-C Attending Provider Active Start: November 18, 2024 End: November 18, 2024 Robin Fernandez STONE LATHE OPERATOR, STONE LATHE OPERATOR-C Referring Provider Active Start: November 18, 2024 End: November 18, 2024 Team Status: Inactive Member Role/Relationship Status Dates Dr. Bird Ronquillo MD Primary Care Provider Acti ve Start: December 05, 2024 End: December 05, 2024 Dr. Bird Ronquillo MD Referring Provider Active Start: December 05, 2024 End: December 05, 2024 Robin Fernandez STONE LATHE OPERATOR, STONE LATHE OPERATOR-C Attending Provider Active Start: December 05, 2024 End: December 05, 2024 Environmental Air Specialist Relationship Specialty Start Date End Date Tatiana Ronquillo MD [address] [place], [place] [address] PCP - General Family Medicine 01/26/23 Jovanni Garcia [address] [place] [phone] Physician Ent - Otolaryngology 02/26/21 Shavonne Donato APRN.CNP [address] [place], [place] [phone] Patrol Sergeant Family [facility] 05/04/24 Sabine Crowley APRN.BOW MAKER PRODUCTION [address] [place], [place] [address] [facility] 11/07/24 Environmental Air Specialist Relationship Specialty Start Date End Date Tatiana Ronquillo MD [address] [place], [place] [address] PCP - General Family Medicine 01/26/23 Jovanni Garcia [address] [place] [phone] Physician Ent - Otolaryngology 02/26/21 Shavonne Donato APRN.BOW MAKER PRODUCTION [address] [place], [place] [address] [facility] 05/04/24 Sabine Crowley APRN.BOW MAKER PRODUCTION [address] [place], [place] [address] [facility] 11/07/24 Team Status: Inactive Member Role/Relationship Status [...] 2024 End: November 18, 2024 Robin Fernandez STONE LATHE OPERATOR STONE LATHE OPERATOR-C Attending Provider Active Start: November 18, 2024 End: November 18, 2024 Robin Fernandez STONE LATHE OPERATOR STONE LATHE OPERATOR-C Referring Provider Active Start: November 18, 2024 End: November 18, 2024 Team Status: Inactive Member Role/Relationship Status Dates Dr. Bird Ronquillo MD Primary Care Provider Acti ve Start: December 05, 2024 End: December 05, 2024 Dr. Bird Ronquillo MD Referring Provider Active Start: December 05, 2024 End: December 05, 2024 Robin Fernandez STONE LATHE OPERATOR STONE LATHE OPERATOR-C Attending Provider Active Start: December 05, [...] BE BASED ON THE PRIMARY CLINICAL RECORDS. [employer] [facility]. provides no warranty or guarantee of the accuracy or completeness of information in this document.
[2025-04-11 22:54] VITALS: BP 170/79; PULSE 70; RESP 18; O2SAT 98
--- NOTE | 2025-04-11 23:31 | MRI_ITS ---
EXAM: BRAIN WITHOUT CONTRAST CLINICAL HISTORY: TIA/CVA Mental status changes COMPARISON: CT head and neck angiogram from 11 April 2025 TECHNIQUE: Multiplanar, multisequence MR images of the brain were obtained without gadolinium contrast material. Procedure Code: CT modality: MR Procedure: BRAIN WITHOUT CONTRAST FINDINGS: No intracranial hemorrhage, mass, mass effect, midline shift or pathologic extra- axial fluid collection. No hydrocephalus. A few scattered periventricular and subcortical T2/FLAIR white matter hyperintensities with otherwise normal appearance of the davila- white parenchymal differentiation. No areas of restricted diffusion to suggest acute ischemia or infarction. No gradient signal blooming artifacts are identified. No cerebellar tonsillar ectopia. No sellar/suprasellar signal abnormalities. The ocular globes and intraorbital soft tissues are symmetrically unremarkable. Mild T2 hyperintense mucosal thickening of the bilateral maxillary sinuses.. MRI/Brain without Contrast IMPRESSION: 1. No evidence of acute intracranial hemorrhage, hydrocephalus, herniation, or findings to suggest acute ischemia/infarct. 2. Nonspecific scattered and periventricular white matter findings which are m ost commonly seen with senescent changes and chronic white matter disease. 3. Mild maxillary sinus disease. Reading Location: [id number]
--- NOTE | 2025-04-11 23:31 | ECHOD_ITS ---
Reason For Study Reason For Study: TIA/CVA Procedure This was a 2D Doppler, Color Flow transthoracic echocardiogram. Exam performed portable in patient room. Left Ventricle Normal LV size. The estimated ejection fraction is 65 %. No evidence for diastolic dysfunction. No regional wall motion abnormalities noted. Right Ventricle Normal RV size. Normal systolic function. Atria The left and right atria are normal. No doppler evidence for ASD. Mitral Valve There is mild mitral annular calcification. There is no mitral valve stenosis. Mild (1+) mitral valve insufficiency. Tricuspid Valve There is no tricuspid stenosis. Trivial tricuspid valve insufficiency. Pulmonary artery systolic pressure is 35 mmHg. Aortic Valve Trisinus/trileaflet aortic valve. There is no aortic stenosis. Trivial aortic valve insufficiency. Pulmonic Valve There is no pulmonic valvular stenosis. No pulmonic valve insufficiency. Great Vessels Normal sized aortic root. Pericardium/Pleural No pericardial effusion. MMode/2D Measurements & Calculations LVIDd: 4.4 cm IVSd: 0.99 cm Ao root diam: 3.1 cm LVIDs: 2.7 cm LVPWd: 0.90 cm RVDd: 3.3 cm FS: 38.8 % LAV(MOD-bp): 40.6 ml LVAd ap4: 22.5 cm2 SV(MOD-sp4): 34.7 ml LAV(MOD-bp) Indexed: 21.4 ml/m2 LVLd ap4: 7.4 cm SI(MOD-sp4): 18.3 ml/m2 LAV(MOD-sp2): 36.3 ml EDV(MOD-sp4): 56.6 ml LAV(MOD-sp4): 37.4 ml EDV(sp4-el): 58.2 ml LVAs ap4: 12.4 cm2 LVLs ap4: 6.3 cm ESV(MOD-sp4): 21.9 ml ESV(sp4-el): 20.7 ml EF(MOD-sp4): 61.3 % EF(sp4-el): 64.5 % SV(sp4-el): 37.5 ml LA A4 area: 16.1 cm2 LA dimension(2D): 3.7 cm RA A4 area: 14.2 cm2 TAPSE: 2.0 cm Time Measurements MV dec time: 0.20 sec Doppler Measurements & Calculations MV E max robi: 92.1 cm/sec Lat Peak E' Robi: 10.1 cm/sec Med Peak E' Robi: 12.6 cm/sec MV A max robi: 112.1 cm/sec E/E' lat: 9.1 E/E' med: 7.3 MV E/A: 0.82 MV V2 max: 139.8 cm/sec MV P1/2t max robi: 110.4 cm/sec Ao V2 max: 124.7 cm/sec MV max P.8 mmHg MV P1/2t: 70.9 msec Ao max P.2 mmHg MV V2 mean: 63.6 cm/sec Ao V2 mean: 86.6 cm/sec MV mean P.0 mmHg MV dec slope: 456.3 cm/sec2 Ao mean P.4 mmHg MV V2 VTI: 43.9 cm MVA(P1/2t): 3.1 cm2 Ao V2 VTI: 33.4 cm AV (velocity ratio): 0.78 LV V1 max: 100.9 cm/sec MR max robi: 567.7 cm/sec PA V2 max: 90.8 cm/sec LV V1 max P.1 mmHg MR max P.9 mmHg LV V1 mean P.1 mmHg MR mean robi: 448.0 cm/sec LV V1 mean: 67.7 cm/sec MR mean P.0 mmHg LV V1 VTI: 26.1 cm MR VTI: 240.6 cm TR max robi: 286.1 cm/sec TR max P.7 mmHg ECHO/Echo Complete Interpretation Summary The estimated ejection fraction is 65 %. No evidence for diastolic dysfunction. Mild (1+) mitral valve insufficiency. Trivial aortic valve insufficiency. Ordering Physician: Rupal Gannon Performed By: Colin Jimenez RCS
[2025-04-11 23:33] VITALS: BMI 28.6
[2025-04-11 23:37] VITALS: BP 146/73; PULSE 59; RESP 16; TEMP 36.4; O2SAT 97
[2025-04-12] VITALS (7 sets, daily range): BP systolic 117–153; BP diastolic 63–73; PULSE 55–68; RESP 15–18; TEMP 36.4–37.3; O2SAT 93–97; BMI 28.6; BMI 28.5
[2025-04-12] MEDS: 0.9% Normal Saline (1000mL) 1,000 ML 100 ML IV (00:08)
[2025-04-12 06:06] LABS: Hematocrit 36.5 % (37-47); Hemoglobin 12.0 g/dL (12.0-15.0); Immature Granulocytes Count 0.010 X10^3/uL (0.0-0.0); Mean Corp Hgb Conc 32.9 g/dL (32-36); Mean Corpuscular Volume 94.6 fL (81-99); Mean Platelet Vol. 9.0 fl (6.2-12.0); NRBC Flagged by Analyzer 0 % (0-5); Platelet Count 169 K/mm3 (150-450); RBC Distribution Width CV 13.1 % (11.6-14.6); RBC Distribution Width SD 45.1 fl (35.1-43.9); Red Blood Count 3.86 M/mm3 (4.2-5.4); White Blood Count 3.3 K/mm3 (4.4-11.0)
[2025-04-12 07:21] LABS: AST(SGOT) 26 U/L (<=31); Alanine Aminotransfer ALT/SGPT 28 U/L (<=34); Albumin, Serum 3.5 g/dL (3.4-4.8); Alkaline Phosphatase 62 U/L (35-104); Anion Gap 9 (5-15); BUN 17 mg/dL (4-19); BUN/Creat Ratio 21.7 RATIO (10-20); Calcium,Total 8.4 mg/dL (7.6-11.0); Carbon Dioxide 23.2 mmol/L (21.0-32.0); Chloride 108 mmol/L (98-108); Cholesterol 118 mg/dL (<=200); Estimated Creatinine Clearance 72.89 ml/min (50-250); Globulin 2.4 g/dL (2.2-4.2); Glucose 96 mg/dL (70-99); Low Density Lipoprotein Calc. 50 mg/dL; Potassium 3.9 mmol/L (3.3-5.1); Triglycerides 83 mg/dL; Very Low Density Lipoprotein 17 mg/dL (5-40); cholesterol:hdl ratio screen 2.30
--- NOTE | 2025-04-12 11:56 | NEURO.CONS ---
Assessment and Plan: Neuro Assessment/Plan I beamed-in during rounds but she was going for MRI brain so will see her tomorrow. Please call us back for any questions HPI Consult Data Date of Consult: 04/12/25 HPI Narrative HPI Narrative: AUBRIE GREEN, is a 69 F who presents [ ] [facility] Medical History Osteoporosis Kidney stones Kidney disease GERD (gastroesophageal reflux disease) Myocardial infarct Internal impingement of right shoulder Hypothyroidism Abnormal Holter monitor finding Sinus pause Mixed hyperlipidemia Essential hypertension History of IBS Wears glasses Wears dentures Depression Anxiety Thyroid disease Ambulates with cane History of renal disease Arthritis High cholesterol Restless legs Difficulty swallowing Difficulty chewing History of hiatal hernia Gastric reflux Former smoker Stroke/cerebrovascular accident History of echocardiogram History of stress test History of heart attack History of irregular heartbeat Fuchs' corneal dystrophy HTN (hypertension) COPD (chronic obstructive pulmonary disease) Constipation Hypoxia Diaphragm paralysis History of cerebrovascular disease History of CVA (cerebrovascular accident) Home Medications Medication Instructions Recorded Last Taken Type clopidogrel 75 mg tablet 75 mg PO DAILY BLOOD THINNER 30 06/08/22 04/11/25 Rx days #30 tabs atorvastatin 40 mg tablet 40 mg PO DAILY cholesterol 07/01/22 04/11/25 History losartan 25 mg tablet 25 mg PO DAILY #90 tabs 09/29/22 04/11/25 Rx alendronate 70 mg tablet 70 mg PO Q7D oseteoporosis 08/14/23 04/11/25 History cholecalciferol (vitamin D3) 125 125 mcg PO DAILY supplement 08/14/23 04/11/25 History mcg (5,000 unit) tablet citalopram 10 mg tablet 10 mg PO DAILY depression 08/14/23 04/11/25 History montelukast 10 mg tablet 10 mg PO DAILY asthma 12/01/23 04/11/25 History multivitamin (One Daily 1 tab PO DAILY blood pressure 01/16/24 04/11/25 History Multivitamin tablet) ondansetron 4 mg disintegrating 4 mg PO Q8H PRN PRN Nausea #10 tabs 07/31/24 04/11/25 Rx tablet levothyroxine 75 mcg tablet 75 mcg PO DAILY thryoid 09/30/24 04/11/25 History pantoprazole 40 mg tablet,delayed 40 mg PO DAILY stomach 09/30/24 09/29/24 History release levocetirizine 5 mg tablet 5 mg PO DAILY ALLERGIES #90 tabs 10/16/24 04/11/25 Rx (Allergy Relief (levocetirizine)) albuterol sulfate 90 mcg/actuation 2 puff inhalation Q6H PRN 10/28/24 04/11/25 Rx aerosol inhaler Shortness Of Breath #3 ea fluticasone fur. 200 mcg-umeclid 1 inh inhalation DAILY #60 ea 01/06/25 04/11/25 Rx 62.5 mcg-vilant 25 mcg inhalat.powder (Trelegy Ellipta) naproxen 500 mg tablet 500 mg PO BID PRN #20 tabs 01/19/25 04/11/25 Rx oxycodone 5 mg tablet 5 mg PO Q6H PRN pain 3 days #12 01/19/25 Unknown Rx tabs Allergy/AdvReac Type Severity Reaction Status Date / Time hydrocodone bitartrate (From Allergy HALLUCINATE Verified 01/31/25 17:58 Vicodin) S piperacillin (From Zosyn) Allergy Hives Verified 01/31/25 17:58 tazobactam (From Zosyn) Allergy Hives Verified 01/31/25 17:58 vancomycin Allergy Rash Verified 01/31/25 17:58 fish derived AdvReac Anaphylaxis Verified 01/31/25 17:58 morphine AdvReac HALLUCINATE Verified 01/31/25 17:58 S Family History Mother Diabetes Heart disease Hypertension High cholesterol Father Heart disease Hypertension High cholesterol CVA (cerebral vascular accident) Surgical History History of right breast biopsy History of surgery on lower extremity History of bilateral cataract extraction History of shoulder surgery History of tubal ligation Social History household members: significant other housing: apartment pets and animals: Yes pets and animals: dog(s) Smoking Status: Former smoker quit date: 10/28/19 pack-years: 25 Tobacco: How many years used: 25 second hand exposure: Yes alcohol intake: never substance use type: does not use caffeine: Yes Type: coffee Number of servings: 1 Vital Signs Vital Signs Vital Signs: 04/11/25 21:30 04/11/25 21:30 04/11/25 21:44 Temperature 97.5 F L 97.5 F L Temperature Source Temporal Temporal Pulse Rate 75 Pulse Strength Respiratory Rate 14 Respiratory Effort Respiratory Depth Respiratory Pattern Blood Pressure 170/85 H Blood Pressure Mean 113 Blood Pressure Source Blood Pressure Position Blood Pressure Location Pulse Ox 95 96 Oxygen Delivery Method Room Air Room Air Oxygen Flow Rate (L/min) 04/11/25 21:45 04/11/25 22:21 04/11/25 22:54 Temperature 98.2 F Temperature Source Pulse Rate 75 75 70 Pulse Strength Respiratory Rate 16 16 18 Respiratory Effort Respiratory Depth Respiratory Pattern Blood Pressure 170/74 H 170/74 H 170/79 H Blood Pressure Mean 106 106 109 Blood Pressure Source Blood Pressure Position Blood Pressure Location Pulse Ox 91 91 98 Oxygen Delivery Method Room Air Oxygen Flow Rate (L/min) 04/11/25 23:37 04/12/25 00:34 04/12/25 03:38 Temperature 97.6 F L 99.1 F Temperature Source Oral Oral Pulse Rate 59 L 57 L Pulse Strength Respiratory Rate 16 16 Respiratory Effort Normal Non-Labored Respiratory Depth Normal Respiratory Pattern Normal Blood Pressure 146/73 H 117/72 Blood Pressure Mean 97 87 Blood Pressure Source Monitor Monitor Blood Pressure Position Semi-Fowlers Semi-Fowlers Blood Pressure Location Left Arm Left Arm Pulse Ox 97 97 Oxygen Delivery Method Room Air Room Air Nasal Cannula Oxygen Flow Rate (L/min) 2 04/12/25 05:36 04/12/25 07:30 04/12/25 07:30 Temperature 98.4 F Temperature Source Temporal Pulse Rate 60 Pulse Strength Respiratory Rate 15 Respiratory Effort Normal Non-Labored Respiratory Depth Normal Respiratory Pattern Normal Blood Pressure 153/73 H Blood Pressure Mean 99 Blood Pressure Source Monitor Blood Pressure Position Sitting Blood Pressure Location Left Arm Pulse Ox 97 96 Oxygen Delivery Method Nasal Cannula Room Air Room Air Oxygen Flow Rate (L/min) 2 04/12/25 07:58 04/12/25 08:06 04/12/25 08:59 Temperature Temperature Source Pulse Rate Pulse Strength Respiratory Rate Respiratory Effort Respiratory Depth Respiratory Pattern Blood Pressure Blood Pressure Mean Blood Pressure Source Blood Pressure Position Blood Pressure Location Pulse Ox 96 Oxygen Delivery Method Nasal Cannula Oxygen Flow Rate (L/min) 1.5 2 1.5 04/12/25 09:10 04/12/25 11:30 Temperature 97.6 F L Temperature Source Oral Pulse Rate 55 L Pulse Strength Normal (2+) Respiratory Rate 16 Respiratory Effort Respiratory Depth Respiratory Pattern Blood Pressure 143/63 H Blood Pressure Mean 89 Blood Pressure Source Monitor Blood Pressure Position Semi-Fowlers Blood Pressure Location Left Arm Pulse Ox 94 Oxygen Delivery Method Room Air Oxygen Flow Rate (L/min) Weight Weight: 80.2 kg Body Mass Index (BMI) 28.5 EEG Results Procedure Details EEG Procedure Details: AUBRIE GREEN is a 69 year old F with a past medical history of , who presents for evaluation of Electroencephalogram on DATE at TIME Lab / Micro Data 04/12/25 05:26 04/12/25 05:26 Labs: Laboratory Results - last 24 hr 04/11/25 21:34: WBC 4.4, RBC 4.30, Hgb 13.4, Hct 40.8, MCV 94.9, MCH 31.2, MCHC 32.8, RDW Std Deviation 45.9 H, RDW Coeff of Eko 13.2, Plt Count 175, MPV 8.7, Immature Gran % (Auto) 0.500, Neut % (Auto) 64.2, Lymph % (Auto) 22.3, [place] % (Auto) 8.9, Eos % (Auto) 2.7, Baso % (Auto) 1.4 H, Absolute Neuts (auto) 2.8, Absolute Lymphs (auto) 0.98, Nucleated RBC % 0, PT 13.7, INR 1.0, APTT 27.3, Sodium 142, Potassium 4.0, Chloride 107, Carbon Dioxide 26.7, Anion Gap 8, BUN 18, Creatinine 1.04, Estim Creat Clear Calc 56.65, Est GFR (MDRD) Non-Af 59 L, BUN/Creatinine Ratio 17.2, Glucose 75, Calcium 9.1, Magnesium 2.1, Troponin T High Sens 11 04/12/25 05:26: WBC 3.3 L, RBC 3.86 L, Hgb 12.0, Hct 36.5 L, MCV 94.6, MCH 31.1, MCHC 32.9, RDW Std Deviation 45.1 H, RDW Coeff of Keo 13.1, Plt Count 169, MPV 9.0, Immature Gran % (Auto) 0.300, Neut % (Auto) 59.2, Lymph % (Auto) 27.9, [place] % (Auto) 7.8, Eos % (Auto) 3.6, Baso % (Auto) 1.2 H, Absolute Neuts (auto) 2.0, Absolute Lymphs (auto) 0.93, Nucleated RBC % 0, Sodium 140, Potassium 3.9, Chloride 108, Carbon Dioxide 23.2, Anion Gap 9, BUN 17, Creatinine 0.79, Estim Creat Clear Calc 72.89, Est GFR (MDRD) Non-Af 81, BUN/Creatinine Ratio 21.7 H, Glucose 96, Hemoglobin A1c 5.9 H, Calcium 8.4, Total Bilirubin 0.28, AST 26, ALT 28, Alkaline Phosphatase 62, Total Protein 5.8 L, Albumin 3.5, Globulin 2.4, Albumin/Globulin Ratio 1.4, Triglycerides 83, Cholesterol 118, LDL Cholesterol, Calc 50, VLDL Cholesterol 17, HDL Cholesterol 51, Cholesterol/HDL Ratio 2.30, TSH 1.380 Imaging Radiology Impression Brain CT 04/11/25 21:34 IMPRESSION: No acute intracranial abnormality. Reading Location: [facility] Head/Neck CTA 04/11/25 21:35 IMPRESSION: No hemodynamically significant stenosis within the head or neck. No evidence of intracranial aneurysm. Reading Location: [facility] Brain MRI 04/11/25 23:31 IMPRESSION: 1. No evidence of acute intracranial hemorrhage, hydrocephalus, herniation, or findings to suggest acute ischemia/infarct. 2. Nonspecific scattered and periventricular white matter findings which are most commonly seen with senescent changes and chronic white matter disease. 3. Mild maxillary sinus disease. Reading Location: [facility] Active Medications Active Medications Active Medications: Current Medications Generic Name Dose Route Start Last Admin Trade Name Freq PRN Reason Stop Dose Admin Acetaminophen 650 mg 04/11/25 23:31 04/12/25 11:47 Acetaminophen 325 Mg Tablet PO 650 mg Q4H PRN PRN Administration Fever, pain 1-10/10 Al Hydroxide/Mg Hydroxide 30 ml 04/11/25 23:31 Mag Hydrox/Al Hydrox/Simeth 30 Ml Udc PO Q6H PRN PRN Gastric Burning Albuterol Sulfate 2.5 mg 04/11/25 23:31 Albuterol 2.5 Mg/3 Ml Vial.Neb. INHALATION Q2H PRN PRN Dyspnea, wheezing Albuterol/Ipratropium 3 ml 04/11/25 23:31 Ipratropium/Albuterol Sulfate 3 Ml Ampul.Neb INHALATION Q6HWA.RT MACEY Aspirin 81 mg 04/12/25 08:00 04/12/25 08:55 Aspirin 81 Mg Tab.Chew PO 81 mg BREAKFAST MACEY Administration Atorvastatin Calcium 40 mg 04/12/25 22:00 Atorvastatin Calcium 40 Mg Tablet PO QHS MACEY Citalopram Hydrobromide 10 mg 04/12/25 10:00 04/12/25 08:54 Citalopram 10 Mg Tablet PO 10 mg DAILY MACEY Administration Clopidogrel Bisulfate 75 mg 04/12/25 10:00 04/12/25 08:55 Clopidogrel Bisulfate 75 Mg Tablet PO 75 mg DAILY MACEY Administration Enoxaparin Sodium 40 mg 04/12/25 10:00 04/12/25 08:55 Enoxaparin 40 Mg/0.4 Ml Syringe SC 40 mg DAILY MACEY Administration Guaifenesin 20 ml 04/11/25 23:31 Guaifenesin 10 Ml Udc (200mg/10ml) PO Q4H PRN PRN COUGH Hydralazine HCl 5 mg 04/11/25 23:31 Hydralazine 20 Mg/Ml Vial IV 04/12/25 23:31 Q30M PRN maintain BP parameters with HR <60 Sodium Chloride 250 mls @ 15 mls/hr 04/12/25 00:57 IV .[id number] PRN Saline Flush Sodium Chloride 250 mls @ 15 mls/hr 04/12/25 00:57 IV .[id number] PRN Additional IVPB Infusion Labetalol HCl 10 - 20 mg 04/11/25 23:31 Labetalol 20 Mg/4 Ml Vial IV 04/12/25 23:31 Q10M PRN PRN maintain BP parameters with HR >/=60 Levothyroxine Sodium 75 mcg 04/12/25 06:00 04/12/25 06:47 Levothyroxine 75 Mcg Tablet PO 75 mcg DAILY@0600 MACEY Administration Loratadine 10 mg 04/12/25 10:00 04/12/25 08:55 Loratadine 10 Mg Tablet PO 10 mg DAILY MACEY Administration Melatonin 3 mg 04/11/25 23:31 Melatonin 3 Mg Tablet PO QHS PRN PRN INSOMNIA Montelukast Sodium 10 mg 04/12/25 10:00 04/12/25 08:54 Montelukast 10 Mg Tablet PO 10 mg DAILY MACEY Administration Ondansetron HCl 4 mg 04/11/25 23:31 Ondansetron 4 Mg/2 Ml Vial IV Q8H PRN PRN NAUSEA/VOMITING Pantoprazole Sodium 40 mg 04/12/25 10:00 04/12/25 08:55 Pantoprazole Sodium 40 Mg Tablet PO 40 mg DAILY MACEY Administration Senna/Docusate Sodium 2 tablet 04/11/25 23:31 Senna/Docusate Sodium 1 Tablet PO BID PRN PRN Constipation Sodium Chloride 10 - 40 ml 04/12/25 00:57 0.9% Saline Lock 10 Ml Syringe IV UD PRN SALINE FLUSH NIHSS NIHSS Nursing Documentation NIHSS Nursing Documentation: NIHSS: Ischemic Stroke/TIA Start: 04/11/25 23:31 Text: For PCU Patients: NIH and Neuro Check every 4 Status: Active hours, PRN and with change in RN caregiver. Freq: [id number] Protocol: Activity Type Activity Date Activity User E-sign Co-sign Detail Recorded Client Recorded Date Recorded By Document 04/12/25 11:30 ML [id number] 04/12/25 11:51 ML 04/12/25 11:30 NIH Stroke Scale [NIHSS] A score of 0 is "normal" or asymptomatic . Total possible score is 42. Inpatient: RN or Physician to activate a stroke alert for onset of new stroke symptoms or with NIHSS increase >/= 3 points. Following change in neurological status, NIHSS will be performed per physician order or more frequently PRN. -1a. Level of Consciousness 0 - Alert; keenly responsive -1b. LOC Questions 0 - Answers BOTH questions correctly -1c. LOC Commands 0 - Performs BOTH tasks correctly -2. Best Gaze 0 - Normal -3. Visual 0 - No visual loss -4. Facial Palsy 0 - Normal symmetrical movements -5a. Left Arm 0 - No drift; arm holds 90 ( or 45) degrees for full 10 seconds -5b. Right Arm 0 - No drift; arm holds 90 ( or 45) degrees for full 10 seconds -6a. Left Leg 0 - No drift; leg holds 30- degree position for full 5 seconds -6b. Right Leg 0 - No drift; leg holds 30- degree position for full 5 seconds -7. Limb Ataxia 0 - Absent -8. Sensory 1 - Mild-to- moderate sensory loss; -9. Best Language 0 - No aphasia; normal -10. Dysarthria 1 = Mild-to- moderate dysarthria; -11. Extinction and Inattention 0 - No abnormality -Total 2 Query Text:A score of 0 is "normal" or asymptomatic. Total possible score is 42 . ED: Notify Physician for NIHSS increase by > / = 3 points. Inpatient: RN or Physician to activate a stroke alert for NIHSS increase of > / = 3 points. Coma Scale [Assess] -Eye Opening Spontaneous -Motor Obeys Commands -Verbal Oriented [Total] -Coma Scale Total 15
--- NOTE | 2025-04-12 12:01 | CASEMGMT ---
Social Work PHQ-9 not completed, as per physician it does not seem that pt had a stroke. AMADA Reyes
--- NOTE | 2025-04-12 12:14 | CASEMGMT ---
Social Work SW met w/pt in room, present but asleep. SW reviewed prior level of function and anticipated discharge plan. PCP: Dr. Ronquillo Specialists: Pulmonary: [facility], [facility] Lorraine Fernandez Preferred Pharmacy: [facility] in [place] Insurance/Prescription Benefit: MEdicare, Medicaid Crossover, Part D through Medicare for prescriptions--pt cannot remember the name of the company Living Will/HPOA: Pt states has "homemade" versions of theses documents, her is HCPOA. SW asked if she would like to complete the more formal documents while here, pt declined. LNOK: , 3 children. One son is [facility], one is in [place], and her daughter is in [place]. Living Arrangements/Prior level of function: Pt lives home in a 3rd floor apartment w/her . There is an elevator but it is not working at this time. Pt is able to get up the steps, she just goes slow and takes her time. Pt states she is fully independent at home, is available to assist if needed however. Pt states she drives. DME: Pt has a cane, no other DME, has not needed it. MH: Pt denies any history Substance Use: Pt denies any alcohol use. She states she uses marijuana occasionally when in pain. Pt states she did drink and use marijuana more when much younger, 40 years ago. Pt does not see her marijuana use as an issue at this time. HHC/SNF: No history of either. Pt has done out pt PT at [facility] and [facility]. PLAN: Home. Pt plans to return home at discharge, and her is available to assist. At this time, pt declined HHC or outpt therapy referrals. No further needs anticipated, SW remains available should any needs arise. AMADA Reyes
--- NOTE | 2025-04-12 13:12 | PN.HOSP_ITS ---
Reason for Visit Chief Complaint: R sided paresthesias, slurred speech, headache, imbalance. Objective Data Objective Data Vital Signs: Vital Signs Temp Pulse Resp BP Pulse Ox O2 Del Method O2 Flow Rate 97.6 F L 55 L 16 143/63 H 94 Room Air 1.5 04/12/25 11:30 04/12/25 11:30 04/12/25 11:30 04/12/25 11:30 04/12/25 11:30 04/12/25 11:30 04/12/25 08:59 Oxygen Flow Rate (L/min) 1.5 Oxygen Delivery Method Room Air Weight: 176 lb 12.972 oz Body Mass Index (BMI) 28.5 Intake & Output: Intake and Output for Last 24 Hours 04/10/25 04/11/25 04/12/25 23:59 23:59 23:59 Intake Total 1100 / 1100 Balance 1100 / 1100 Lab / Micro Data 04/12/25 05:26 04/12/25 05:26 Labs: Laboratory Results - last 24 hr 04/11/25 21:34: WBC 4.4, RBC 4.30, Hgb 13.4, Hct 40.8, MCV 94.9, MCH 31.2, MCHC 32.8, RDW Std Deviation 45.9 H, RDW Coeff of Keo 13.2, Plt Count 175, MPV 8.7, Immature Gran % (Auto) 0.500, Neut % (Auto) 64.2, Lymph % (Auto) 22.3, [place] % (Auto) 8.9, Eos % (Auto) 2.7, Baso % (Auto) 1.4 H, Absolute Neuts (auto) 2.8, Absolute Lymphs (auto) 0.98, Nucleated RBC % 0, PT 13.7, INR 1.0, APTT 27.3, Sodium 142, Potassium 4.0, Chloride 107, Carbon Dioxide 26.7, Anion Gap 8, BUN 18, Creatinine 1.04, Estim Creat Clear Calc 56.65, Est GFR (MDRD) Non-Af 59 L, BUN/Creatinine Ratio 17.2, Glucose 75, Calcium 9.1, Magnesium 2.1, Troponin T High Sens 11 04/12/25 05:26: WBC 3.3 L, RBC 3.86 L, Hgb 12.0, Hct 36.5 L, MCV 94.6, MCH 31.1, MCHC 32.9, RDW Std Deviation 45.1 H, RDW Coeff of Keo 13.1, Plt Count 169, MPV 9.0, Immature Gran % (Auto) 0.300, Neut % (Auto) 59.2, Lymph % (Auto) 27.9, [place] % (Auto) 7.8, Eos % (Auto) 3.6, Baso % (Auto) 1.2 H, Absolute Neuts (auto) 2.0, Absolute Lymphs (auto) 0.93, Nucleated RBC % 0, Sodium 140, Potassium 3.9, Chloride 108, Carbon Dioxide 23.2, Anion Gap 9, BUN 17, Creatinine 0.79, Estim Creat Clear Calc 72.89, Est GFR (MDRD) Non-Af 81, BUN/Creatinine Ratio 21.7 H, Glucose 96, Hemoglobin A1c 5.9 H, Calcium 8.4, Total Bilirubin 0.28, AST 26, ALT 28, Alkaline Phosphatase 62, Total Protein 5.8 L, Albumin 3.5, Globulin 2.4, Albumin/Globulin Ratio 1.4, Triglycerides 83, Cholesterol 118, LDL Cholesterol, Calc 50, VLDL Cholesterol 17, HDL Cholesterol 51, Cholesterol/HDL Ratio 2.30, TSH 1.380 Radiography Diagnostic Testing: Radiology Impression Brain CT 04/11/25 21:34 IMPRESSION: No acute intracranial abnormality. Reading Location: [facility] Head/Neck CTA 04/11/25 21:35 IMPRESSION: No hemodynamically significant stenosis within the head or neck. No evidence of intracranial aneurysm. Reading Location: [facility] Brain MRI 04/11/25 23:31 IMPRESSION: 1. No evidence of acute intracranial hemorrhage, hydrocephalus, herniation, or findings to suggest acute ischemia/infarct. 2. Nonspecific scattered and periventricular white matter findings which are most commonly seen with senescent changes and chronic white matter disease. 3. Mild maxillary sinus disease. Reading Location: [facility] Physical Exam Narrative Seen and examined. Patient has history of stroke with mild residual weakness in . History admitted with more than baseline right-sided weakness, slurred speech. She stated that she could not get the words out. Currently on baseline. Physical exam General: Alert, Oriented x3, Cooperative HEENT: Atraumatic, PERRLA, EOMI, Normocephalic. Oral: No Gingival or Mucosal Lesions/ Ulcerations Neck: Supple, No JVD, Negative Carotid Bruits Chest wall/Lungs: Air entry diminished in bilateral lung bases. No crepitation/rhonchi Cardiovascular: Regular rate and rhythm, Normal S1,S2, No M/G/R Abdomen: Bowel Sounds Present, Soft, Non Tender, Non-Distended : No dysuria. No renal angle tenderness. No suprapubic tenderness. Extremities: No edema, Capillary Refill Less than 3 Seconds Skin: No rashes, No breakdown Musculoskeletal: No Tenderness to Palpation of Joints or Extremities Neurological: Cranial nerves II-XII grossly intact, RUE, mild drift but did not hit the bed. LUE, 5/5. Mild sensory loss on right side. NIHSS 2. No dysarthria or language aphasia. Psych/Mental Status: Normal Affect, Appropriate. Assessment & Plan Assessment/Plan (1) CVA (cerebral vascular accident): PLAN: Plan The patient is a 69 y/o F who was admitted with right sided paresthesias, slurred speech, headache and imbalance with last known well at 1 PM in the afternoon on the day of admission #1. Right-sided paresthesias, slurred speech, headache with imbalance, nonspecific symptoms: Patient is being admitted in PCU. 04/12: Patient had MRI in the morning which does not show acute intracranial abnormality. CTA head and neck does not show hemodynamically significant stenosis or LVO. No evidence of intracranial aneurysm. PT, OT, speech therapy/swallow evaluation and management, nursing NIH stroke scale, BP and glucose monitoring and control as per stroke protocol. TSH, lipid profile are normal. A1c 5.9% suggestive of prediabetes. Patient went to MRI during neurology around therefore was not seen by Dr. Hutson today. #2. COPD with chronic hypoxic respiratory failure 2 L NC with activity with allergic rhinitis: No exacerbation. Continue home COPD regimen. Incentive spirometry. #3. Hypertension: BP acceptable limit. As acute stroke ruled out, SBP goal less than 130 mmHg. #5. Hyperlipidemia: Continue home statin regimen. Lipid profile within normal #6. Anxiety and depression: continue patient home citalopram regimen. #7. Hypothyroidism: continue patient on levothyroxine regimen. GERD: Will continue patient on PPI. #10. DVT prophylaxis: Lovenox. CODE status: Patient HCPOA is not in place but her who is present she notes to be her medical decision-maker if necessary and living will is currently in place. Discussed CODE status at length including difference between FULL code, DNR-CCA and DNR-CC status. Following discussions about the differences in these status, requested DNR-CCA, no intubation. Discussed examples of respiratory failure and even in that setting patient does not want intubated. Laboratory Results 04/11/25 21:34: WBC 4.4, RBC 4.30, Hgb 13.4, Hct 40.8, MCV 94.9, MCH 31.2, MCHC 32.8, RDW Std Deviation 45.9 H, RDW Coeff of Keo 13.2, Plt Count 175, MPV 8.7, Immature Gran % (Auto) 0.500, Neut % (Auto) 64.2, Lymph % (Auto) 22.3, [place] % (Auto) 8.9, Eos % (Auto) 2.7, Baso % (Auto) 1.4 H, Absolute Neuts (auto) 2.8, Absolute Lymphs (auto) 0.98, Nucleated RBC % 0, PT 13.7, INR 1.0, APTT 27.3, Sodium 142, Potassium 4.0, Chloride 107, Carbon Dioxide 26.7, Anion Gap 8, BUN 18, Creatinine 1.04, Estim Creat Clear Calc 56.65, Est GFR (MDRD) Non-Af 59 L, BUN/Creatinine Ratio 17.2, Glucose 75, Calcium 9.1, Magnesium 2.1, Troponin T High Sens 11 04/12/25 05:26: WBC 3.3 L, RBC 3.86 L, Hgb 12.0, Hct 36.5 L, MCV 94.6, MCH 31.1, MCHC 32.9, RDW Std Deviation 45.1 H, RDW Coeff of Keo 13.1, Plt Count 169, MPV 9.0, Immature Gran % (Auto) 0.300, Neut % (Auto) 59.2, Lymph % (Auto) 27.9, [place] % (Auto) 7.8, Eos % (Auto) 3.6, Baso % (Auto) 1.2 H, Absolute Neuts (auto) 2.0, Absolute Lymphs (auto) 0.93, Nucleated RBC % 0, Sodium 140, Potassium 3.9, Chloride 108, Carbon Dioxide 23.2, Anion Gap 9, BUN 17, Creatinine 0.79, Estim Creat Clear Calc 72.89, Est GFR (MDRD) Non-Af 81, BUN/Creatinine Ratio 21.7 H, Glucose 96, Hemoglobin A1c 5.9 H, Calcium 8.4, Total Bilirubin 0.28, AST 26, ALT 28, Alkaline Phosphatase 62, Total Protein 5.8 L, Albumin 3.5, Globulin 2.4, Albumin/Globulin Ratio 1.4, Triglycerides 83, Cholesterol 118, LDL Cholesterol, Calc 50, VLDL Cholesterol 17, HDL Cholesterol 51, Cholesterol/HDL Ratio 2.30, TSH 1.380 Charges/Coding Visit Charges Inpatient E&M: 76061 Subs Hosp L2 NIHSS NIHSS Nursing Documentation NIHSS Nursing Documentation: NIHSS: Ischemic Stroke/TIA Start: 04/11/25 23:31 Text: For PCU Patients: NIH and Neuro Check every 4 Status: Active hours, PRN and with change in RN caregiver. Freq: [id number] Protocol: Activity Type Activity Date Activity User E-sign Co-sign Detail Recorded Client Recorded Date Recorded By Document 04/12/25 11:30 ML [id number] 04/12/25 11:51 ML 04/12/25 11:30 NIH Stroke Scale [NIHSS] A score of 0 is "normal" or asymptomatic . Total possible score is 42. Inpatient: RN or Physician to activate a stroke alert for onset of new stroke symptoms or with NIHSS increase >/= 3 points. Following change in neurological status, NIHSS will be performed per physician order or more frequently PRN. -1a. Level of Consciousness 0 - Alert; keenly responsive -1b. LOC Questions 0 - Answers BOTH questions correctly -1c. LOC Commands 0 - Performs BOTH tasks correctly -2. Best Gaze 0 - Normal -3. Visual 0 - No visual loss -4. Facial Palsy 0 - Normal symmetrical movements -5a. Left Arm 0 - No drift; arm holds 90 ( or 45) degrees for full 10 seconds -5b. Right Arm 0 - No drift; arm holds 90 ( or 45) degrees for full 10 seconds -6a. Left Leg 0 - No drift; leg holds 30- degree position for full 5 seconds -6b. Right Leg 0 - No drift; leg holds 30- degree position for full 5 seconds -7. Limb Ataxia 0 - Absent -8. Sensory 1 - Mild-to- moderate sensory loss; -9. Best Language 0 - No aphasia; normal -10. Dysarthria 1 = Mild-to- moderate dysarthria; -11. Extinction and Inattention 0 - No abnormality -Total 2 Query Text:A score of 0 is "normal" or asymptomatic. Total possible score is 42 . ED: Notify Physician for NIHSS increase by > / = 3 points. Inpatient: RN or Physician to activate a stroke alert for NIHSS increase of > / = 3 points. Coma Scale [Assess] -Eye Opening Spontaneous -Motor Obeys Commands -Verbal Oriented [Total] -Coma Scale Total 15
[2025-04-12] MEDS: 0.9% Saline Lock 10 ML Syringe IV (22:28)
[2025-04-13 05:15] VITALS: BP 139/79; PULSE 70; RESP 16; TEMP 36.6; O2SAT 92
[2025-04-13 05:22] VITALS: BMI 28.4
[2025-04-13 07:30] VITALS: O2SAT 93
--- NOTE | 2025-04-13 07:30 | CPS ---
Pt continues to refuse I.S./PEP and aerosols.
[2025-04-13] MEDS: Cholecalciferol (Vit D3) 125 MCG CAPSULE (5,000 UNITS) PO (08:21)
--- NOTE | 2025-04-13 08:54 | PCM.DC ---
Discharge Instructions DC O2, CPAP, BIPAP needs Home O2 Discharge instructions: No Follow Up Care Test Results: Test results from this visit will be discussed in further detail at your follow-up appointment, if applicable. Discharge Plan Admission Admit Date/Time: 04/11/25 22:20 Attending Provider: Amos David Primary Care Provider: Bird Ronquillo Consulting Providers: Victorino Judd; Josr Perla; Bette Rashid; Tami Hopkins; Nichole Olmos; Travis Hutson; Lyndsey Fortune; Jaden Ibrahim; Jeff Lopez; Juan Antonio Rasheed; Roro Austin; Vira Starkey; Lj Correa; Brianna Martin; Gary Chaudhry; Henry Thomas; Moise Zimmerman; Navin Cho; Tulio Kuo; Joycelyn Ureña; Viraj Eaton; Rupal Gannon Discharge Orders/Prescriptions Prescriptions: Continued atorvastatin 40 mg tablet 40 mg PO DAILY losartan 25 mg tablet 25 mg PO DAILY Qty: 90 3RF montelukast 10 mg tablet 10 mg PO DAILY clopidogrel 75 MG tablet 75 mg PO DAILY 30 Days Qty: 30 0RF alendronate 70 mg tablet 70 mg PO Q7D Patient Comments: PLEASE SEE ATTACHED FOR DETAILED DIRECTIONS citalopram 10 mg tablet 10 mg PO DAILY cholecalciferol (vitamin D3) 125 mcg (5,000 unit) tablet 125 mcg PO DAILY multivitamin [One Daily Multivitamin] Tablet 1 tab PO DAILY ondansetron 4 mg tablet,disintegrating 4 mg PO Q8H PRN PRN (Reason: Nausea) Qty: 10 0RF levothyroxine 75 mcg tablet 75 mcg PO DAILY pantoprazole 40 mg tablet,delayed release (DR/EC) 40 mg PO DAILY naproxen 500 mg tablet 500 mg PO BID PRN Qty: 20 0RF oxycodone 5 mg tablet 5 mg PO Q6H PRN (Reason: pain) 3 Days Qty: 12 0RF levocetirizine [Allergy Relief (levocetirizin)] 5 mg tablet 5 mg PO DAILY Qty: 90 3RF albuterol sulfate 90 mcg/actuation HFA aerosol inhaler 2 puff inhalation Q6H PRN (Reason: Shortness Of Breath) Qty: 3 3RF Trelegy Ellipta 200-62.5-25 mcg blister with device 1 inh inhalation DAILY Qty: 60 6RF Referrals / Follow Up: Bird Ronquillo MD [Primary Care Provider, Family Practice] Hussein Morales MD [Non-Staff -Ordering Privileges, Neurology] - Within 1 Month Disposition Disposition (needs filled in before D/C Order can be placed): Intermediate Facility
[2025-04-13 10:04] VITALS: PULSE 74; RESP 18; O2SAT 93
--- NOTE | 2025-04-13 10:25 | NEURO.PNOTE ---
Assessment and Plan: Neuro Assessment/Plan Telestroke Attending Progress Note 69 y/o woman with h/o CKD stage II per previous GFR trending although has vacillated, GERD, Hypothyroidism, HTN, HLD, Anxiety and Depression, IBS, RLS, Hx CVA with chronic right-sided weakness primarily right lower extremity and mild dysphagia, GERD, Former tobacco use, COPD with chronic hypoxic respiratory failure 2 L NC with activity, Allergic rhinitis p/w right sided paresthesias, slurred speech, headache and imbalance. NIHSS-[address] head - no acute intracranial findings, CTA head and neck with no hemodynamically significant stenosis within the head or neck and no evidence of any intracranial aneurysm. MRI Brain - no acute stroke. TTE- EF-55-65% Diagnosis: Likely stroke recrudescence Plan: Continue plavix and statin. OT/PT/[employer]PA[employer]. Control of vascular risk factors. I personally attended this patient and spent a total time of 35 minutes evaluating this patient including clinical assessment, review of chart, medical history imaging, and determining appropriate treatment and workup. Subject: Neurology Subjective Today, patient reports that she is back to her normal. NIHSS-0 at this time EEG Results Procedure Details EEG Procedure Details: AUBRIE GREEN is a 69 year old F with a past medical history of , who presents for evaluation of Electroencephalogram on DATE at TIME Objective Data Objective Data Vital Signs: Vital Signs Temp Pulse Resp BP Pulse Ox O2 Del Method O2 Flow Rate 97.9 F 74 18 139/79 H 93 Room Air 1.5 04/13/25 05:15 04/13/25 10:04 04/13/25 10:04 04/13/25 05:15 04/13/25 10:04 04/13/25 10:04 04/12/25 08:59 Oxygen Flow Rate (L/min) 1.5 Oxygen Delivery Method Room Air Weight: 80.2 kg Body Mass Index (BMI) 28.4 Intake & Output: Intake and Output for Last 24 Hours 04/11/25 04/12/25 04/13/25 23:59 23:59 23:59 Intake Total 2099 100 / 100 Balance 2099 100 / 100 Lab / Micro Data 04/12/25 05:26 04/12/25 05:26 Radiography Diagnostic Testing: Radiology Impression Brain MRI 04/11/25 23:31 IMPRESSION: 1. No evidence of acute intracranial hemorrhage, hydrocephalus, herniation, or findings to suggest acute ischemia/infarct. 2. Nonspecific scattered and periventricular white matter findings which are most commonly seen with senescent changes and chronic white matter disease. 3. Mild maxillary sinus disease. Reading Location: [facility] Echocardiogram 04/11/25 23:31 Interpretation Summary The estimated ejection fraction is 65 %. No evidence for diastolic dysfunction. Mild (1+) mitral valve insufficiency. Trivial aortic valve insufficiency. Ordering Physician: Rupal Gannon Performed By: Colin Jimenez RCS Physical Exam Narrative General: The patient appears nutritionally appropriate, well-groomed, and appears comfortable in no acute distress. Mental Status: The patient’s mental status was normal including orientation. Language was intact. Cranial nerves: Visual heller full, and extra-ocular motion was intact. Symmetric face. Motor: Normal strength in all extremities. Sensation: Intact to touch in all extremities. Coordination: Bilateral finger to nose was normal. There was no dysmetria. Gait: deferred. NIHSS NIHSS Nursing Documentation NIHSS Nursing Documentation: NIHSS: Ischemic Stroke/TIA Start: 04/11/25 23:31 Text: For PCU Patients: NIH and Neuro Check every 4 Status: Complete hours, PRN and with change in RN caregiver. Freq: [id number] Protocol: Activity Type Activity Date Activity User E-sign Co-sign Detail Recorded Client Recorded Date Recorded By Document 04/12/25 11:30 ML [id number] 04/12/25 11:51 ML 04/12/25 11:30 NIH Stroke Scale [NIHSS] A score of 0 is "normal" or asymptomatic . Total possible score is 42. Inpatient: RN or Physician to activate a stroke alert for onset of new stroke symptoms or with NIHSS increase >/= 3 points. Following change in neurological status, NIHSS will be performed per physician order or more frequently PRN. -1a. Level of Consciousness 0 - Alert; keenly responsive -1b. LOC Questions 0 - Answers BOTH questions correctly -1c. LOC Commands 0 - Performs BOTH tasks correctly -2. Best Gaze 0 - Normal -3. Visual 0 - No visual loss -4. Facial Palsy 0 - Normal symmetrical movements -5a. Left Arm 0 - No drift; arm holds 90 ( or 45) degrees for full 10 seconds -5b. Right Arm 0 - No drift; arm holds 90 ( or 45) degrees for full 10 seconds -6a. Left Leg 0 - No drift; leg holds 30- degree position for full 5 seconds -6b. Right Leg 0 - No drift; leg holds 30- degree position for full 5 seconds -7. Limb Ataxia 0 - Absent -8. Sensory 1 - Mild-to- moderate sensory loss; -9. Best Language 0 - No aphasia; normal -10. Dysarthria 1 = Mild-to- moderate dysarthria; -11. Extinction and Inattention 0 - No abnormality -Total 2 Query Text:A score of 0 is "normal" or asymptomatic. Total possible score is 42 . ED: Notify Physician for NIHSS increase by > / = 3 points. Inpatient: RN or Physician to activate a stroke alert for NIHSS increase of > / = 3 points. Coma Scale [Assess] -Eye Opening Spontaneous -Motor Obeys Commands -Verbal Oriented [Total] -Coma Scale Total 15 NIHSS 1a. Level of Consciousness: 0 - Alert; keenly responsive 1b. LOC Questions: 0 - Answers BOTH questions correctly 1c. LOC Commands: 0 - Performs BOTH tasks correctly 2. Best Gaze: 0 - Normal 3. Visual: 0 - No visual loss 4. Facial Palsy: 0 - Normal symmetrical movements 5a. Left Arm: 0 - No drift; arm holds 90 (or 45) degrees for full 10 seconds 5b. Right Arm: 0 - No drift; arm holds 90 (or 45) degrees for full 10 seconds 6a. Left Le - No drift; leg holds 30-degree position for full 5 seconds 6b. Right Le - No drift; leg holds 30-degree position for full 5 seconds 7. Limb Ataxia: 0 - Absent 8. Sensory: 0 - Normal; no sensory loss 9. Best Language: 0 - No aphasia; normal 10. Dysarthria: 0 - Normal 11. Extinction and Inattention: 0 - No abnormality Total: 0
--- NOTE | 2025-04-13 11:14 | PCM.DC.SUM ---
Providers Date of Admission: 04/11/25 Date of Discharge: 04/13/25 Primary Care Physician: Dr. Bird Ronquillo MD Consultations 04/11/25 23:31 Consult: Tele-Neurology Routine Consulting Provider: [facility] Reason for Consult: Acute Ischemic Stroke/TIA EMERGENT Consult: No Notified: Yes Date Notified: 04/12/25 Time Notified: 00:07 Method of Notification: Answering Service Nursing Unit Staff Notify [facility] of Tele-Neurology Consult: Yes Reason For Visit: CVA Diagnosis Discharge Diagnosis (1) CVA (cerebral vascular accident): Status: Acute Code(s): I63.9 - Cerebral infarction, unspecified Plan The patient is a 69 y/o F who was admitted with right sided paresthesias, slurred speech, headache and imbalance with last known well at 1 PM in the afternoon on the day of admission #1. Right-sided paresthesias, slurred speech, headache with imbalance, nonspecific symptoms: Patient is being admitted in PCU. 04/12: Patient had MRI in the morning which does not show acute intracranial abnormality. CTA head and neck does not show hemodynamically significant stenosis or LVO. No evidence of intracranial aneurysm. PT, OT, speech therapy/swallow evaluation and management, nursing NIH stroke scale, BP and glucose monitoring and control as per stroke protocol. TSH, lipid profile are normal. A1c 5.9% suggestive of prediabetes. Patient went to MRI during neurology around therefore was not seen by Dr. Hutson today. 04/13: Patient was evaluated by neurologist. Does not have any new symptoms. Earlier symptoms of right-sided paresthesia and slurred speech and imbalance resolved. Patient did complete PT OT and speech evaluation. Was evaluated by neurology. TTE EF 55 to 65% no PFO. MRI brain no acute stroke. Fasting profile within normal limit. TSH normal. A1c 5.9% suggestive of prediabetes. #2. COPD with chronic hypoxic respiratory failure 2 L NC with activity with allergic rhinitis: No exacerbation. Continue home COPD regimen. Incentive spirometry. #3. Hypertension: BP acceptable limit. As acute stroke ruled out, SBP goal less than 130 mmHg. #5. Hyperlipidemia: Continue home statin regimen. Lipid profile within normal #6. Anxiety and depression: continue patient home citalopram regimen. #7. Hypothyroidism: continue patient on levothyroxine regimen. 04/13 TSH normal continue home dose of levothyroxine GERD: continue patient on PPI. #10. DVT prophylaxis: Lovenox. CODE status: Patient HCPOA is not in place but her who is present she notes to be her medical decision-maker if necessary and living will is currently in place. Discussed CODE status at length including difference between FULL code, DNR-CCA and DNR-CC status. Following discussions about the differences in these status, requested DNR-CCA, no intubation. Discussed examples of respiratory failure and even in that setting patient does not want intubated. Discharge medication reconciliation done. Discharge follow-up instructions completed. Discharge process discussed with the patient and all questions were answered to patient's satisfaction. Follow with PCP in 1 to 2 weeks Total time spent, exact 35 minutes on discharge meds reconciliation, examination, coordination of care with nurses and ancillary staff, review of imaging and blood test and discussion with the patient on follow-up instructions. Laboratory Results 04/11/25 21:34: WBC 4.4, RBC 4.30, Hgb 13.4, Hct 40.8, MCV 94.9, MCH 31.2, MCHC 32.8, RDW Std Deviation 45.9 H, RDW Coeff of Keo 13.2, Plt Count 175, MPV 8.7, Immature Gran % (Auto) 0.500, Neut % (Auto) 64.2, Lymph % (Auto) 22.3, [place] % (Auto) 8.9, Eos % (Auto) 2.7, Baso % (Auto) 1.4 H, Absolute Neuts (auto) 2.8, Absolute Lymphs (auto) 0.98, Nucleated RBC % 0, PT 13.7, INR 1.0, APTT 27.3, Sodium 142, Potassium 4.0, Chloride 107, Carbon Dioxide 26.7, Anion Gap 8, BUN 18, Creatinine 1.04, Estim Creat Clear Calc 56.65, Est GFR (MDRD) Non-Af 59 L, BUN/Creatinine Ratio 17.2, Glucose 75, Calcium 9.1, Magnesium 2.1, Troponin T High Sens 11 04/12/25 05:26: WBC 3.3 L, RBC 3.86 L, Hgb 12.0, Hct 36.5 L, MCV 94.6, MCH 31.1, MCHC 32.9, RDW Std Deviation 45.1 H, RDW Coeff of Keo 13.1, Plt Count 169, MPV 9.0, Immature Gran % (Auto) 0.300, Neut % (Auto) 59.2, Lymph % (Auto) 27.9, [place] % (Auto) 7.8, Eos % (Auto) 3.6, Baso % (Auto) 1.2 H, Absolute Neuts (auto) 2.0, Absolute Lymphs (auto) 0.93, Nucleated RBC % 0, Sodium 140, Potassium 3.9, Chloride 108, Carbon Dioxide 23.2, Anion Gap 9, BUN 17, Creatinine 0.79, Estim Creat Clear Calc 72.89, Est GFR (MDRD) Non-Af 81, BUN/Creatinine Ratio 21.7 H, Glucose 96, Hemoglobin A1c 5.9 H, Calcium 8.4, Total Bilirubin 0.28, AST 26, ALT 28, Alkaline Phosphatase 62, Total Protein 5.8 L, Albumin 3.5, Globulin 2.4, Albumin/Globulin Ratio 1.4, Triglycerides 83, Cholesterol 118, LDL Cholesterol, Calc 50, VLDL Cholesterol 17, HDL Cholesterol 51, Cholesterol/HDL Ratio 2.30, TSH 1.380 Medications at Discharge Home Medications clopidogrel 75 mg tablet 75 mg PO DAILY BLOOD THINNER 30 days #30 tabs 06/08/22 atorvastatin 40 mg tablet 40 mg PO DAILY cholesterol 07/01/22 losartan 25 mg tablet 25 mg PO DAILY #90 tabs 09/29/22 alendronate 70 mg tablet 70 mg PO Q7D oseteoporosis 08/14/23 cholecalciferol (vitamin D3) 125 mcg (5,000 unit) tablet 125 mcg PO DAILY supplement 08/14/23 citalopram 10 mg tablet 10 mg PO DAILY depression 08/14/23 montelukast 10 mg tablet 10 mg PO DAILY asthma 12/01/23 multivitamin (One Daily Multivitamin tablet) 1 tab PO DAILY blood pressure 01/16/24 ondansetron 4 mg disintegrating tablet 4 mg PO Q8H PRN PRN Nausea #10 tabs 07/31/24 levothyroxine 75 mcg tablet 75 mcg PO DAILY thryoid 09/30/24 pantoprazole 40 mg tablet,delayed release 40 mg PO DAILY stomach 09/30/24 levocetirizine 5 mg tablet (Allergy Relief (levocetirizine)) 5 mg PO DAILY ALLERGIES #90 tabs 10/16/24 albuterol sulfate 90 mcg/actuation aerosol inhaler 2 puff inhalation Q6H PRN Shortness Of Breath #3 ea 10/28/24 fluticasone fur. 200 mcg-umeclid 62.5 mcg-vilant 25 mcg inhalat.powder (Trelegy Ellipta) 1 inh inhalation DAILY #60 ea 01/06/25 naproxen 500 mg tablet 500 mg PO BID PRN #20 tabs 01/19/25 oxycodone 5 mg tablet 5 mg PO Q6H PRN pain 3 days #12 tabs 01/19/25 Physical Exam Narrative Seen and examined. No acute symptoms earlier symptoms of mild slurred speech, headache and unsteady gait resolved Patient has history of stroke with mild residual weakness in . Physical exam General: Alert, Oriented x3, Cooperative HEENT: Atraumatic, PERRLA, EOMI, Normocephalic. Oral: No Gingival or Mucosal Lesions/ Ulcerations Neck: Supple, No JVD, Negative Carotid Bruits Chest wall/Lungs: Air entry diminished in bilateral lung bases. No crepitation/rhonchi Cardiovascular: Regular rate and rhythm, Normal S1,S2, No M/G/R Abdomen: Bowel Sounds Present, Soft, Non Tender, Non-Distended : No dysuria. No renal angle tenderness. No suprapubic tenderness. Extremities: No edema, Capillary Refill Less than 3 Seconds Skin: No rashes, No breakdown Musculoskeletal: No Tenderness to Palpation of Joints or Extremities Neurological: Cranial nerves II-XII grossly intact, RUE, mild drift but did not hit the bed. LUE, 5/5. Mild sensory loss on right side. NIHSS 2. No dysarthria or language aphasia. No acute change in neuroexam. Psych/Mental Status: Normal Affect, Appropriate. Weight / BMI Weight Weight: 176 lb 12.972 oz Body Mass Index (BMI) 28.4 ABG / Lab / Microbiology Data 04/12/25 05:26 04/12/25 05:26 Radiography Diagnostic Testing: Radiology Impression Brain MRI 04/11/25 23:31 IMPRESSION: 1. No evidence of acute intracranial hemorrhage, hydrocephalus, herniation, or findings to suggest acute ischemia/infarct. 2. Nonspecific scattered and periventricular white matter findings which are most commonly seen with senescent changes and chronic white matter disease. 3. Mild maxillary sinus disease. Reading Location: [id number] Echocardiogram 04/11/25 23:31 Interpretation Summary The estimated ejection fraction is 65 %. No evidence for diastolic dysfunction. Mild (1+) mitral valve insufficiency. Trivial aortic valve insufficiency. Ordering Physician: Rupal Gannon Performed By: Colin Jimenez RCS D/C Instructions DC O2, CPAP, BIPAP Needs Home O2 Discharge instructions: No Meaningful Use Info Meaningful Use Meaningful Use Diagnoses (Choose all that apply): None applicable Discharge Plan Admission Admit Date/Time: 04/11/25 22:20 Attending Provider: Amos David Primary Care Provider: Bird Ronquillo Consulting Providers: Victorino Judd; Josr Perla; Bette Rashid; Tami Hopkins; Nichole Olmos; Travis Hutson; Lyndsey Fortune; Jaden Ibrahim; Jeff Lopez; Juan Antonio Rasheed; Roro Austin; Vira Starkey; Lj Correa; Brianna Martin; Gary Chaudhry; Henry Thomas; Moise Zimmerman; Navin Cho; Tulio Kuo; Joycelyn Ureña; Viraj Eaton; Rupal Gannon Discharge Orders/Prescriptions Prescriptions: Continued atorvastatin 40 mg tablet 40 mg PO DAILY losartan 25 mg tablet 25 mg PO DAILY Qty: 90 3RF montelukast 10 mg tablet 10 mg PO DAILY clopidogrel 75 MG tablet 75 mg PO DAILY 30 Days Qty: 30 0RF alendronate 70 mg tablet 70 mg PO Q7D Patient Comments: PLEASE SEE ATTACHED FOR DETAILED DIRECTIONS citalopram 10 mg tablet 10 mg PO DAILY cholecalciferol (vitamin D3) 125 mcg (5,000 unit) tablet 125 mcg PO DAILY multivitamin [One Daily Multivitamin] Tablet 1 tab PO DAILY ondansetron 4 mg tablet,disintegrating 4 mg PO Q8H PRN PRN (Reason: Nausea) Qty: 10 0RF levothyroxine 75 mcg tablet 75 mcg PO DAILY pantoprazole 40 mg tablet,delayed release (DR/EC) 40 mg PO DAILY naproxen 500 mg tablet 500 mg PO BID PRN Qty: 20 0RF oxycodone 5 mg tablet 5 mg PO Q6H PRN (Reason: pain) 3 Days Qty: 12 0RF levocetirizine [Allergy Relief (levocetirizin)] 5 mg tablet 5 mg PO DAILY Qty: 90 3RF albuterol sulfate 90 mcg/actuation HFA aerosol inhaler 2 puff inhalation Q6H PRN (Reason: Shortness Of Breath) Qty: 3 3RF Trelegy Ellipta 200-62.5-25 mcg blister with device 1 inh inhalation DAILY Qty: 60 6RF Referrals / Follow Up: Bird Ronquillo MD [Primary Care Provider, Family Practice] Hussein Morales MD [Non-Staff -Ordering Privileges, Neurology] - Within 1 Month Disposition Disposition (needs filled in before D/C Order can be placed): Residential Facility Charges/Coding Visit Charges Inpatient E&M: 26612 Disch Hosp >30min
[2025-04-13 11:19] VITALS: BMI 28.4
== END 2025-04-13 12:41 | disposition home or self-care (01) | DRG 92 ==
LOC: ED 22:10 → PCU 22:47
PROVIDERS: Admitting Provider Family Medicine; Emergency Provider Student in an Organized Health Care Education/Training Program; PCP Family Medicine; Visit Provider Internal Medicine
DX: R20.2 Paresthesia of skin (principal); I69.351 Hemiplegia and hemiparesis following cerebral infarction affecting right dominant side; J96.11 Chronic respiratory failure with hypoxia; I69.391 Dysphagia following cerebral infarction; Z66 Do not resuscitate; J44.9 Chronic obstructive pulmonary disease, unspecified; I12.9 Hypertensive chronic kidney disease with stage 1 through stage 4 chronic kidney disease, or unspecified chronic kidney disease; F32.A Depression, unspecified; E03.9 Hypothyroidism, unspecified; G25.81 Restless legs syndrome; I25.10 Atherosclerotic heart disease of native coronary artery without angina pectoris; E78.5 Hyperlipidemia, unspecified; I25.2 Old myocardial infarction; K21.9 Gastro-esophageal reflux disease without esophagitis; F41.9 Anxiety disorder, unspecified; N18.2 Chronic kidney disease, stage 2 (mild); K58.9 Irritable bowel syndrome, unspecified; J30.9 Allergic rhinitis, unspecified; R47.81 Slurred speech; Z99.81 Dependence on supplemental oxygen; M81.0 Age-related osteoporosis without current pathological fracture; R26.81 Unsteadiness on feet; R51.9 Headache, unspecified; R73.03 Prediabetes; Z79.890 Hormone replacement therapy; Z79.02 Long term (current) use of antithrombotics/antiplatelets; Z87.891 Personal history of nicotine dependence; Z79.899 Other long term (current) drug therapy; Z79.51 Long term (current) use of inhaled steroids
CPT/HCPCS: 36415; 70450; 70496; 70498; 70551; 80048; 80053; 80061; 83036; 83735; 84443; 84484; 85025; 85610; 85730; 93005; 93306; 94640; 94762; 97162; 97165; 97802; 99285; Q9957; Q9967; A4216